=== PATIENT | female | born 1940 | race Caucasian/White ===

== ENCOUNTER 2017-05-09 23:19 | Emergency (ER) | payer MEDICARE ==
--- NOTE | 2017-05-10 01:06 | ER ---
Nurse's Notes [facility] Name: Rebecca Hazel Age: 76 yrs Sex: Female : 1940 Arrival Date: 05/09/2017 Time: 23:38 Bed 19 Private MD: Diagnosis: Type 1 diabetes mellitus;Personal history of diabetic foot ulcer;Cellulitis and acute lymphangitis of other parts of limb-right foot Presentation: 05/09 23:38 Presenting complaint: Patient states: she has had a wound on her R great toe since aa1 March from a fall injury and has been seeing Dr. Carson in wound heeling for it but her HH nurse told her she needed to come to the ED tonight to have it checked bc it appeared reddened. Pt reports the wound actually looks better in her opinion but her HH nurse wanted her to come. Transition of care: patient was not received from another setting of care. Onset of symptoms was March 2017. Care prior to arrival: None. 23:38 Method Of Arrival: Wheelchair aa1 23:38 Acuity: DENNIS 3 aa1 Triage Assessment: 23:47 General: Appears in no apparent distress. comfortable, Behavior is calm, cooperative, aa1 appropriate for age. Historical: - Allergies: 23:47 No Known Allergies; aa1 - Home Meds: 23:47 lisinopril 20 mg Oral tab 1 tab once daily [Active]; Plavix 75 mg Oral tab 1 tab once aa1 daily [Active]; metoprolol tartrate 25 mg Oral tab 1 tab 2 times per day [Active]; duloxetine 20 mg oral cpDR 1 cap daily [Active]; amlodipine 10 mg tab 1 tab once daily [Active]; levothyroxine 150 mcg oral tab 1 tab once daily [Active]; atorvastatin 80 mg oral tab 1 tab once daily [Active]; famotidine 20 mg Oral tab 1 tab once daily [Active]; clonidine HCl 0.1 mg Oral tab as needed [Active]; Novolin 70/30 Innolet Sub-Q 25 units in am and 15 units in pm [Active]; Novolog 100 unit/mL Sub-Q soln sliding scale [Active]; - PMHx: 23:47 Diabetes - IDDM; Hypertension; Hypothyroidism; TIA; aa1 - PSHx: 23:47 Hysterectomy; aa1 - Immunization history:: Pneumococcal vaccine is up to date, Flu vaccine is up to date. - Social history:: Smoking status: Patient/guardian denies using tobacco. - Family history:: not pertinent. Screenin/31 00:09 Abuse screen: Denies threats or abuse. Nutritional screening: No deficits noted. jd3 Tuberculosis screening: No symptoms or risk factors identified. Fall Risk Ambulatory Aid- Crutches/Cane/Walker (15 pts). Gait- Weak (10 pts.). Mental Status- Oriented to own ability (0 pts). Total Israel Fall Scale indicates Low Risk Score (25-44 pts). Fall prevention measures have been instituted. Side Rails Up X 2 Placed close to Nursing Station Frequent Obs/Assesments occuring Family Present and informed to notify staff if they need to leave bedside. Assessment: 00:06 General: Appears in no apparent distress. uncomfortable, Behavior is calm, cooperative, jd3 appropriate for age. Pain: Denies pain. Neuro: Level of Consciousness is awake, alert, obeys commands, Oriented to person, place, time, situation. Cardiovascular: Heart tones S1 S2 present Capillary refill < 3 seconds Patient's skin is warm and dry. Respiratory: Airway is patent Respiratory effort is even, unlabored, Respiratory pattern is regular, symmetrical, Breath sounds are clear bilaterally. GI: Abdomen is round Patient currently denies abdominal pain, diarrhea, nausea, vomiting. : No signs and/or symptoms were reported regarding the genitourinary system. EENT: No signs and/or symptoms were reported regarding the EENT system. Derm: Skin is intact, Skin is dry, Skin is normal, Skin temperature is warm. Musculoskeletal: Circulation, motion, and sensation intact. Range of motion: intact in all extremities. 00:06 Derm: Wound noted right first toe. jd3 01:17 Reassessment: Bijal Villalobos RN with home health [phone] notified of pt being in ER fc and going to be discharged with 2 antibiotics and to continue Santyl. 01:23 Reassessment: Patient appears in no apparent distress at this time. Patient and/or jd3 family updated on plan of care and expected duration. Pain level reassessed. Patient is alert, oriented x 3, equal unlabored respirations, skin warm/dry/pink. pt reported understanding of discharge instructions, pt assisted into wheelchair and to front of ER. Vital Signs: 05/09 23:47 BP 148 / 72; Pulse 90; Resp 18; Temp 97.6; Pulse Ox 100% on R/A; Weight 90.72 kg; aa1 Height 5 ft. 6 in. (167.64 cm); Pain 2/10; 23:47 Body Mass Index 32.28 (90.72 kg, 167.64 cm) aa1 ED Course: 23:38 Patient arrived in ED. aa1 23:42 Triage completed. aa1 23:47 Arm band placed on left wrist. aa1 05/10 00:06 Elia Chapa, THAIS is Primary Nurse. jd3 00:10 Patient has correct armband on for positive identification. Bed in low position. Call jd3 light in reach. Side rails up X2. Adult w/ patient. 00:37 Scottie Boateng MD is Attending Physician. anil 01:03 Rito Carson MD is Referral Physician. anil 01:24 No provider procedures requiring assistance completed. Patient did not have IV access jd3 during this emergency room visit. Administered Medications: 01:12 Not Given (Physician Discretion): Santyl 250 unit/g 1 application Topical once jd3 01:12 Drug: Doxycycline 100 mg Route: PO; jd3 01:25 Follow up: Response: No adverse reaction; Medication administered at discharge. jd3 01:13 Drug: Bactrim (160 mg-800 mg (DS) 1 tablet Route: PO; jd3 01:25 Follow up: Response: No adverse reaction; Medication administered at discharge. jd3 Point of Care Testing: Blood Glucose: 01:10 Blood Glucose: 234 mg/dL; oe Ranges: Outcome: 01:05 Discharge ordered by . anil 01:24 Discharged to home via wheelchair, with family. jd3 01:24 Condition: stable 01:24 Discharge instructions given to patient, family, Instructed on discharge instructions, follow up and referral plans. medication usage, Demonstrated understanding of instructions, follow-up care, medications, Prescriptions given X 3. 01:25 Patient left the ED. jd3 Signatures: Martha Thakur, RN RN aa1 Scottie Boateng MD MD cha Chretien, Felicia, RN RN Chin Hunter Elia Chapa RN RN jd3 Corrections: (The following items were deleted from the chart) 03/30 23:50 23:38 Acuity: DENNIS 4 aa1 aa1
--- NOTE | 2017-05-10 01:06 | EDPHYS ---
Physician Documentation [facility] Name: Rebecca Hazel Age: 76 yrs Sex: Female : 1940 Arrival Date: 05/09/2017 Time: 23:38 Bed 19 Private MD: ED Physician Scottie Boateng HPI: 05/10 00:59 This 76 yrs old Female presents to ER via Wheelchair with complaints of Wound anil Check. 00:59 Patient presents to ED for recheck of: cellulitis. The affected area is on the plantar anil aspect of right first toe, right first toe and Right first toenail. Previous treatment: Previous recheck: the patient's last recheck was 5 day(s) ago. Progress: The patient reports decreased. The patient has experienced similar episodes in the past, several times. Historical: - Allergies: 05/09 23:47 No Known Allergies; aa1 - Home Meds: 23:47 lisinopril 20 mg Oral tab 1 tab once daily [Active]; Plavix 75 mg Oral tab 1 tab once aa1 daily [Active]; metoprolol tartrate 25 mg Oral tab 1 tab 2 times per day [Active]; duloxetine 20 mg oral cpDR 1 cap daily [Active]; amlodipine 10 mg tab 1 tab once daily [Active]; levothyroxine 150 mcg oral tab 1 tab once daily [Active]; atorvastatin 80 mg oral tab 1 tab once daily [Active]; famotidine 20 mg Oral tab 1 tab once daily [Active]; clonidine HCl 0.1 mg Oral tab as needed [Active]; Novolin 70/30 [place] Sub-Q 25 units in am and 15 units in pm [Active]; Novolog 100 unit/mL Sub-Q soln sliding scale [Active]; - PMHx: 23:47 Diabetes - IDDM; Hypertension; Hypothyroidism; TIA; aa1 - PSHx: 23:47 Hysterectomy; aa1 - Immunization history:: Pneumococcal vaccine is up to date, Flu vaccine is up to date. - Social history:: Smoking status: Patient/guardian denies using tobacco. - Family history:: not pertinent. ROS: 05/10 00:59 Constitutional: Negative for fever, chills, and weight loss, Eyes: Negative for injury, anil pain, redness, and discharge, ENT: Negative for injury, pain, and discharge, Neck: Negative for injury, pain, and swelling, Cardiovascular: Negative for chest pain, palpitations, and edema, Respiratory: Negative for shortness of breath, cough, wheezing, and pleuritic chest pain, Abdomen/GI: Negative for abdominal pain, nausea, vomiting, diarrhea, and constipation, Back: Negative for injury and pain, : Negative for injury, bleeding, discharge, and swelling, Skin: Negative for injury, rash, and discoloration, Neuro: Negative for headache, weakness, numbness, tingling, and seizure, Psych: Negative for depression, anxiety, suicide ideation, homicidal ideation, and hallucinations, Allergy/Immunology: Negative for hives, rash, and allergies, Endocrine: Negative for neck swelling, polydipsia, polyuria, polyphagia, and marked weight changes, Hematologic/Lymphatic: Negative for swollen nodes, abnormal bleeding, and unusual bruising. MS/extremity: Positive for decreased range of motion, pain, tenderness, of the medial aspect of right toes, plantar aspect of right first toe, right first toe and Right first toenail. Exam: 00:59 Constitutional: This is a well developed, well nourished patient who is awake, alert, anil and in no acute distress. Head/Face: Normocephalic, atraumatic. Eyes: Pupils equal round and reactive to light, extra-ocular motions intact. Lids and lashes normal. Conjunctiva and sclera are non-icteric and not injected. Cornea within normal limits. Periorbital areas with no swelling, redness, or edema. ENT: Nares patent. No nasal discharge, no septal abnormalities noted. Tympanic membranes are normal and external auditory canals are clear. Oropharynx with no redness, swelling, or masses, exudates, or evidence of obstruction, uvula midline. Mucous membranes moist. Neck: Trachea midline, no thyromegaly or masses palpated, and no cervical lymphadenopathy. Supple, full range of motion without nuchal rigidity, or vertebral point tenderness. No Meningismus. Chest/axilla: Normal chest wall appearance and motion. Nontender with no deformity. No lesions are appreciated. Cardiovascular: Regular rate and rhythm with a normal S1 and S2. No gallops, murmurs, or rubs. Normal PMI, no JVD. No pulse deficits. Respiratory: Lungs have equal breath sounds bilaterally, clear to auscultation and percussion. No rales, rhonchi or wheezes noted. No increased work of breathing, no retractions or nasal flaring. Abdomen/GI: Soft, non-tender, with normal bowel sounds. No distension or tympany. No guarding or rebound. No evidence of tenderness throughout. Back: No spinal tenderness. No costovertebral tenderness. Full range of motion. Female : Normal external genitalia. Skin: Warm, dry with normal turgor. Normal color with no rashes, no lesions, and no evidence of cellulitis. Neuro: Awake and alert, GCS 15, oriented to person, place, time, and situation. Cranial nerves II-XII grossly intact. Motor strength 5/5 in all extremities. Sensory grossly intact. Cerebellar exam normal. Normal gait. Psych: Awake, alert, with orientation to person, place and time. Behavior, mood, and affect are within normal limits. 00:59 Musculoskeletal/extremity: ROM: intact in all extremities, full active range of motion, full passive range of motion, Circulation is intact in all extremities. decreased sensation, Compartment Syndrome exam of affected extremity: is normal. Joints: All joints appear normal with full range of motion. DVT Exam: No signs of deep vein thrombosis. no pain, no swelling, no tenderness, negative Homans' sign noted on exam, no appreciated bluish discoloration, no erythema, no increased warmth. Vital Signs: 05/09 23:47 BP 148 / 72; Pulse 90; Resp 18; Temp 97.6; Pulse Ox 100% on R/A; Weight 90.72 kg; aa1 Height 5 ft. 6 in. (167.64 cm); Pain 2/10; 23:47 Body Mass Index 32.28 (90.72 kg, 167.64 cm) aa1 MDM: 05/10 00:38 Patient medically screened. [facility] 05/10 00:59 Order name: Blood Glucose Level; Complete Time: 01:12 [facility] 05/10 00:59 Order name: Post-op shoe; Complete Time: 01:09 [facility] Administered Medications: 01:12 Not Given (Physician Discretion): Santyl 250 unit/g 1 application Topical once jd3 01:12 Drug: Doxycycline 100 mg Route: PO; jd3 01:25 Follow up: Response: No adverse reaction; Medication administered at discharge. jd3 01:13 Drug: Bactrim (160 mg-800 mg (DS) 1 tablet Route: PO; jd3 01:25 Follow up: Response: No adverse reaction; Medication administered at discharge. jd3 Point of Care Testing: Blood Glucose: 01:10 Blood Glucose: 234 mg/dL; oe Ranges: Critical Glucose Levels:Adult <50 mg/dl or >400 mg/dl <40 mg/dl or >180 mg/dl Disposition: 05/10/17 01:05 Discharged to Home. Impression: Type 1 diabetes mellitus, Personal history of diabetic foot ulcer, Cellulitis and acute lymphangitis of other parts of limb - right foot. - Condition is Stable. - Discharge Instructions: Type 2 Diabetes Mellitus, Adult, Cellulitis, [id number], Diabetes Mellitus and Food, Type 2 Diabetes Mellitus, Adult, [id number]. - Prescriptions for Santyl 250 unit/gram Topical ointment - apply 1 application by TOPICAL route once daily; 60 gram. Doxycycline Hyclate 100 mg Oral Tablet - take 1 tablet by ORAL route every 12 hours; 20 tablet. Bactrim DS 800- 160 mg Oral Tablet - take 1 tablet by ORAL route every 12 hours for 10 days; 20 tablet. - Medication Reconciliation Form, Thank You Letter, Antibiotic Education, Prescription Opioid Use form. - Follow up: Private Physician; When: 2 - 3 days; Reason: Recheck today's complaints, Continuance of care, Re-evaluation by your physician. Follow up: Rito Carson MD; When: 2 - 3 days; Reason: Recheck today's complaints, Re-evaluation by your physician. - Problem is new. - Symptoms have improved. Signatures: Martha Thakur, RN RN aa1 Scottie Boateng MD MD cha Davies, Jonathon, RN RN jd3
[2017-05-10] MEDS ORDERED: SMZ./TMP. 800/160 MG TABLET ONE (01:22)
[2017-05-10] MEDS ORDERED: DOXYCYCLINE 100 MG CAP PO ONE (01:23)
[2017-05-10 01:29] VITALS: BP 148/72; TEMP 97.6; O2SAT 100
== END 2017-05-10 01:25 | disposition home or self-care (01) ==
LOC: ER 23:19
DX: L03.115 Cellulitis of right lower limb (principal); E10.621 Type 1 diabetes mellitus with foot ulcer; I10 Essential (primary) hypertension; E03.9 Hypothyroidism, unspecified; Z79.01 Long term (current) use of anticoagulants; Z79.4 Long term (current) use of insulin
CPT/HCPCS: 82962; 99283

== ENCOUNTER 2019-08-27 14:20 | Inpatient (IN) | payer MEDICARE ==
--- NOTE | 2019-08-27 17:24 | RAD REPORT ---
EXAM DESCRIPTION: RAD - Foot Right 3 View - 08/27/2019 5:11 pm CLINICAL HISTORY: erythema. Look for Osteo;Pain;Swelling Pain and swelling COMPARISON: Foot Right 2 View dated 06/13/2017 FINDINGS: Prominent osteopenia is seen. Vascular calcifications seen. Large amount of soft tissue sw elling is seen along the dorsum of the foot. Prominent calcaneal spur. No definitive plain radiograph evidence of osteomyelitis.
[2019-08-27 18:20] LABS: Absolute Lymphocytes (CBC) 1.5 K/uL (0.7-4.9); Basophils % 0.4 % (0-1.3); Hematocrit 35.1 % (36.0-45.0); Lymphocytes % 14.5 % (15.3-44.8); RBC Red Blood Cell Count 3.71 M/uL (3.86-4.86)
[2019-08-27 18:34] LABS: BUN Blood Urea Nitrogen 42 mg/dL (7-18); Bicarbonate 30 mmol/L (21-32); Glucose Level 129 mg/dL (74-106); Potassium 4.4 mmol/L (3.5-5.1); Sodium Level 144 mmol/L (136-145)
[2019-08-27 18:39] LABS: C-Reactive Protein < 2.90 mg/L (<3.00)
--- NOTE | 2019-08-27 19:17 | ER ---
Nurse's Notes [facility] Name: Rebecca Hazel Age: 79 yrs Sex: Female : 1940 Arrival Date: 08/27/2019 Time: 14:24 Bed 20 Private MD: Torsten Pacheco Diagnosis: Cellulitis of right lower limb;Anasarca;Acute kidney failure Presentation: 08/26 14:28 Chief complaint: Patient states: Right foot pain, swelling, and 3 blisters to right ll1 foot for 3 days. No fever. Coronavirus screen: Patient denies a cough. Patient denies shortness of breath or difficulty breathing. Patient denies measured and/or subjective temperature greater than 100.4F prior to today's visit. Patient denies travel on a cruise ship or to a country the [facility] currently lists as an affected area. Patient denies contact with known and/or suspected case of COVID-19. Proceed with normal triage. Ebola Screen: Patient denies travel to an Ebola-affected area in the 21 days before illness onset. Initial Sepsis Screen: Does the patient meet any 2 criteria? HR > 90 bpm. Risk Assessment: Do you want to hurt yourself or someone else? Patient reports no desire to harm self or others. Onset of symptoms was August 25, 2019. 14:28 Method Of Arrival: Ambulatory ll1 14:28 Acuity: DENNIS 3 ll1 18:33 Initial Sepsis Screen: Does the patient have a suspected source of infection?. Historical: - Allergies: 14:31 No Known Allergies; ll1 - PMHx: 14:31 Diabetes - IDDM; Hypertension; Hypothyroidism; TIA; stroke with right sided weakness; ll1 - PSHx: 14:31 Hysterectomy; ll1 - Immunization history:: Adult Immunizations up to date. - Social history:: Smoking status: Patient denies any tobacco usage or history of. Patient/guardian denies using alcohol, street drugs. Screenin:32 Abuse screen: Denies threats or abuse. Nutritional screening: No deficits noted. Tuberculosis screening: No symptoms or risk factors identified. Fall Risk None identified. Assessment: 16:15 General: Appears in no apparent distress. Behavior is calm, cooperative, appropriate for age. Pain: Complains of pain in dorsum of right foot, right first toe, right second toe and right third toe. Neuro: Level of Consciousness is awake, alert, obeys commands, Oriented to person, place, time, situation, Appropriate for age. Cardiovascular: Capillary refill < 3 seconds Patient's skin is warm and dry. Respiratory: Airway is patent Respiratory effort is even, unlabored. Derm: Wound noted right first toe, right second toe and right third toe Wound is blisters noted to right great toe, wound noted to 3rd toe with green drainage Reports pain. 19:00 Reassessment: Patient and/or family updated on plan of care and expected duration. Pain mt2 level reassessed. Vital Signs: 14:28 BP 146 / 64; Pulse 96; Resp 18; Temp 98.0; Pulse Ox 98% ; Pain 10/10; ll1 19:00 BP 156 / 57; Pulse 62; Resp 17; Temp 98.0; Pulse Ox 96% ; Pain 0/10; mt2 20:00 BP 149 / 59; Pulse 64; Resp 16; Pulse Ox 95% ; Pain 0/10; mt2 ED Course: 14:24 Patient arrived in ED. mr 14:24 Torsten Pacheco is Private Physician. mr 14:30 Triage completed. ll1 14:31 Arm band placed on Patient notified of wait time. ll1 16:02 Chris Brandt PA is PHCP. jr8 16:02 Carlton Nelson MD is Attending Physician. jr8 16:31 Kerrie Scott, THAIS is Primary Nurse. 17:12 XRAY Foot RIGHT 3 View In Process Unspecified. EDMS 17:55 Inserted saline lock: 22 gauge in left ,using aseptic technique. Volar side of Left jp3 Wrist Blood collected. 17:55 Initial lab(s) drawn, by me, sent to lab. First set of blood cultures drawn by me. jp3 Patient maintains SpO2 saturation greater than 95% on room air. 18:33 Patient has correct armband on for positive identification. Fall risk band placed. Bed ah in low position. Call light in reach. Side rails up X2. Pulse ox on. NIBP on. 19:15 Zayda Khan MD is Hospitalizing Provider. jr8 20:40 No provider procedures requiring assistance completed. mt2 Administered Medications: Discontinued: Cefepime 1 grams IVPB at 200 ml/hr once over 30 mins; (mix in NS 100 mL) 19:43 Drug: Cefepime 1 grams Route: IVPB; Rate: 200 ml/hr; Infused Over: 30 mins; Site: left mt2 hand; 20:29 Drug: vancoMYCIN 1 grams Route: IVPB; Infused Over: 2 hrs; Site: left hand; mt2 Outcome: 19:16 Decision to Hospitalize by Provider. 8 20:40 Admitted to Med/surg mt2 20:40 Condition: unchanged 21:36 Admitted to Med/surg accompanied by tech, Report called to wu simental mt2 21:39 Patient left the ED. mt2 Signatures: Dispatcher [employer]W[place] Ford Sravanthi mr Rikki, ARCELIA Perez jr8 Kareem Musa jp3 Kerrie Scott, RN RN Mathew No RN RN 1 Kusum Yoo RN RN mt2
--- NOTE | 2019-08-27 19:17 | EDPHYS ---
Physician Documentation [facility] Name: Rebecca Hazel Age: 79 yrs Sex: Female : 1940 Arrival Date: 08/27/2019 Time: 14:24 Bed 20 Private MD: Torsten Pacheco ED Physician Carlton Nelson HPI: 08/26 17:05 This 79 yrs old Female presents to ER via Ambulatory with complaints of Feet jr8 Swelling. 17:05 The patient presents with pain, swelling, tenderness. The complaints affect the right jr8 foot. Onset: The symptoms/episode began/occurred gradually, 3 day(s) ago. Modifying factors: The symptoms are alleviated by nothing, the symptoms are aggravated by nothing. Associated signs and symptoms: The patient has no apparent associated signs or symptoms. Severity of symptoms: At their worst the symptoms were mild, in the emergency department the symptoms are unchanged. It is unknown whether or not the patient has had similar symptoms in the past. The patient has not recently seen a physician. Patient stated that she has had blisters and discharge that developed to the right foot about 3 days ago. Family sent her over to be evaluated . Historical: - Allergies: 14:31 No Known Allergies; ll1 - PMHx: 14:31 Diabetes - IDDM; Hypertension; Hypothyroidism; TIA; stroke with right sided weakness; ll1 - PSHx: 14:31 Hysterectomy; ll1 - Immunization history:: Adult Immunizations up to date. - Social history:: Smoking status: Patient denies any tobacco usage or history of. Patient/guardian denies using alcohol, street drugs. ROS: 17:05 Eyes: Negative for injury, pain, redness, and discharge, ENT: Negative for injury, jr8 pain, and discharge, Neck: Negative for injury, pain, and swelling, Cardiovascular: Negative for chest pain, palpitations, and edema, Respiratory: Negative for shortness of breath, cough, wheezing, and pleuritic chest pain, Abdomen/GI: Negative for abdominal pain, nausea, vomiting, diarrhea, and constipation, Back: Negative for injury and pain, Neuro: Negative for headache, weakness, numbness, tingling, and seizure. 17:05 MS/extremity: Positive for erythema, pain, swelling, tenderness, of the right foot, blisters. Exam: 17:05 Cardiovascular: Regular rate and rhythm with a normal S1 and S2. No gallops, murmurs, jr8 or rubs. Normal PMI, no JVD. No pulse deficits. Respiratory: Lungs have equal breath sounds bilaterally, clear to auscultation and percussion. No rales, rhonchi or wheezes noted. No increased work of breathing, no retractions or nasal flaring. Abdomen/GI: Obese. Soft, non-tender, with normal bowel sounds. No distension or tympany. No guarding or rebound. No evidence of tenderness throughout. Back: No spinal tenderness. No costovertebral tenderness. Full range of motion. Skin: Warm, dry with normal turgor. Normal color with no rashes, no lesions, and no evidence of cellulitis. Neuro: Awake and alert, GCS 15, oriented to person, place, time, and situation. Cranial nerves II-XII grossly intact. Motor strength 5/5 in all extremities. Sensory grossly intact. Cerebellar exam normal. Normal gait. 17:05 Musculoskeletal/extremity: Extremities: grossly normal except: noted in the right foot: Patient has swelling to right foot greater than that on the left side. Erythema with bullae noted to dorsal foot and toes. Open wound with purulent/bloody discharge noted to top of third digit as well , Circulation is intact in all extremities. Sensation intact. Vital Signs: 14:28 BP 146 / 64; Pulse 96; Resp 18; Temp 98.0; Pulse Ox 98% ; Pain 10/10; ll1 19:00 BP 156 / 57; Pulse 62; Resp 17; Temp 98.0; Pulse Ox 96% ; Pain 0/10; mt2 20:00 BP 149 / 59; Pulse 64; Resp 16; Pulse Ox 95% ; Pain 0/10; mt2 MDM: 16:02 Patient medically screened. jr8 19:15 Data reviewed: vital signs, nurses notes, lab test result(s), radiologic studies, plain jr8 films. Data interpreted: Pulse oximetry: on room air is 98 %. Interpretation: normal. Counseling: I had a detailed discussion with the patient and/or guardian regarding: the historical points, exam findings, and any diagnostic results supporting the discharge/admit diagnosis, lab results, radiology results, the need for further work-up and treatment in the hospital. 08/26 16:34 Order name: Wound Culture jr8 08/26 16:34 Order name: CBC with Diff; Complete Time: 18:47 [facility] 08/26 16:34 Order name: Basic Metabolic Panel; Complete Time: 18:40 [facility] 08/26 16:34 Order name: C-Reactive Protein; Complete Time: 18:40 [facility] 08/26 16:34 Order name: ESR; Complete Time: 18:47 [facility] 08/26 16:34 Order name: Procalcitonin; Complete Time: 19:04 [facility] 08/26 16:34 Order name: Blood Culture Adult (2) [facility] 08/26 20:16 Order name: Basic Metabolic Panel [facility] 08/26 20:16 Order name: Basic Metabolic Panel [facility] 08/26 20:16 Order name: Lipid Profile [facility] 08/26 20:16 Order name: Lipid Profile [facility] 08/26 20:16 Order name: Protime (+INR) [facility] 08/26 20:16 Order name: Protime (+INR) [facility] 08/26 20:16 Order name: PTT, Activated Partial Thromb [facility] 08/26 16:34 Order name: IV; Complete Time: 18:02 [facility] 08/26 16:34 Order name: XRAY Foot RIGHT 3 View; Complete Time: 17:27 [facility] 08/26 20:16 Order name: PTT, Activated Partial Thromb [facility] 08/26 20:16 Order name: CONS Pharmacy Consult [facility] 08/26 20:16 Order name: CONS Physician Consult [facility] Administered Medications: Discontinued: Cefepime 1 grams IVPB at 200 ml/hr once over 30 mins; (mix in NS 100 mL) 19:43 Drug: Cefepime 1 grams Route: IVPB; Rate: 200 ml/hr; Infused Over: 30 mins; Site: left mt2 hand; 20:29 Drug: vancoMYCIN 1 grams Route: IVPB; Infused Over: 2 hrs; Site: left hand; mt2 Disposition: 08/27 08:19 Co-signature as Attending Physician, Carlton Nelson MD I agree with the assessment and kdr plan of care. Disposition: 08/27/19 19:16 Hospitalization ordered by Zayda Khan for Inpatient Admission. Preliminary diagnosis are Cellulitis of right lower limb, Anasarca, Acute kidney failure. - Bed requested for Telemetry/MedSurg (Inpatient). - Status is Inpatient Admission. mt2 - Condition is Stable. - Problem is new. - Symptoms have improved. Signatures: Dispatcher [employer] EDMS Stephie Campa RN RN dw Erwin Woods RN RN Carlton Nelson MD MD [facility] Chris Brandt PA PA jr8 Mathew Krishnan RN RN 1 Kusum Yoo RN RN mt2 Corrections: (The following items were deleted from the chart) 08/26 20:21 19:16 Hospitalization Ordered by Zayda Khan MD for Inpatient Admission. Preliminary dw diagnosis is Cellulitis of right lower limb; Anasarca; Acute kidney failure. Bed requested for Telemetry/MedSurg (Inpatient). Status is Inpatient Admission. Condition is Stable. Problem is new. Symptoms have improved. jr8 21:08 20:21 08/27/2019 19:16 Hospitalization Ordered by Zayda Khan MD for Inpatient sg Admission. Preliminary diagnosis is Cellulitis of right lower limb; Anasarca; Acute kidney failure. Bed requested for Telemetry/MedSurg (Inpatient). Status is Inpatient Admission. Condition is Stable. Problem is new. Symptoms have improved. dw 21:39 21:08 08/27/2019 19:16 Hospitalization Ordered by Zayda Khan MD for Inpatient mt2 Admission. Preliminary diagnosis is Cellulitis of right lower limb; Anasarca; Acute kidney failure. Bed requested for Telemetry/MedSurg (Inpatient). Status is Inpatient Admission. Condition is Stable. Problem is new. Symptoms have improved. sg
[2019-08-27] MEDS ORDERED: NA CHLORIDE 0.9% 250 ML ONE (19:44)
[2019-08-27] MEDS ORDERED: VANCOMYCIN 1 GM/VIAL ONE (19:44)
[2019-08-27] MEDS ORDERED: MORPHINE 2 MG/ML SYR IV PRN (20:00)
[2019-08-27] MEDS ORDERED: ONDANSETRON 4 MG/2 ML VIAL IV PRN (20:00)
[2019-08-27] MEDS ORDERED: ACETAMINOPHEN 500 MG TAB PO PRN (20:00)
[2019-08-27] MEDS ORDERED: INSULIN DETEMIR 20 UNIT SQ SCH (21:00)
[2019-08-27] MEDS: NA CHLORIDE 0.9% 1,000 ML IV SCH (22:37)
[2019-08-27] MEDS: METOPROLOL XL 25 MG TAB PO SCH (22:50)
[2019-08-27] MEDS ORDERED: Levofloxacin500mg IV 500 MG/100 ML BAG IV SCH (23:00)
[2019-08-28 01:08] VITALS: BMI 40.0
--- NOTE | 2019-08-28 04:36 | P.HP ---
Certification for Inpatient Patient admitted to: Inpatient With expected LOS: >2 Midnights Patient will require the following post-hospital care: None Practitioner: I am a practitioner with admitting privileges, knowledge of patient current condition, hospital course, and medical plan of care. Services: Services provided to patient in accordance with Admission requirements found in Title 42 Section 412.3 of the Code of Federal Regulations Patient History Date of Service: 08/27/19 Reason for admission: Dehydration with acute renal failure History of Present Illness: Patient is a 71-year-old female who came to the hospital with acute on chronic renal insufficiency. Patient appears to be dehydrated. She clinically is not feeling well. Patient was feeling poorly the last few days. Her family convinced her to come to the hospital. Patient does not want to be in the hospital for a prolonged period. She is wishing to go home. She feels much better at this time. She denies any complaints. Will get her up out of bed and we will ambulate her. Will discontinue her Castro catheter. Hopefully will be able to discharge patient home with the next 24-48 hr. Will also Consult Nephrology for plan of care. Allergies No Known Allergies Allergy (Verified 08/27/19 22:08) Home Medications: Levothyroxine Sodium 50 mcg PO DAILY 06/07/15 Metoprolol Succinate [Toprol Xl*] 1 tab PO BID 02/25/17 Amlodipine [Norvasc*] 1 tab PO DAILY 05/08/17 Atorvastatin Calcium [Lipitor] 1 tab PO BEDTIME 05/08/17 Duloxetine [Cymbalta *] 1 cap PO DAILY 05/08/17 Famotidine [Pepcid*] 1 tab PO BEDTIME 05/08/17 cloNIDine HCL [Catapres*] 1 tab PO Q4H PRN 05/08/17 Apixaban [Eliquis] 1 tab PO BID 08/28/19 Clonidine HCl [Catapres] 0.1 mg PO BEDTIME 08/28/19 Docusate Sodium 100 mg PO DAILY PRN 08/28/19 Furosemide 80 mg PO DAILY 08/28/19 Gabapentin 200 mg PO BEDTIME 08/28/19 Hum Insulin NPH/Reg Insulin Hm [Humulin 70-30 Vial] 15 unit SQ TID 08/28/19 Losartan Potassium [Cozaar] 50 mg PO BID 07/18/20 Spironolactone 1 tab PO DAILY PRN 08/28/19 - Past Medical/Surgical History Has patient received pneumonia vaccine in the past: Yes Diabetic: Yes -: 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 -: IDDiabetic -: HTN -: foot infection 04/2017 -: NEUROPATHY -: HLD -: HYPOTHYROIDISM -: 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 -: chronic osteomyelitis with non-healing ulcer right great toe s/p fall(2017) -: afib vs supraventricular tachycardia -: thyroidectomy -: cataract sx -: hysterectomy - Family History Mother Medical History: Hypertension Father Medical History: Diabetes - Social History Smoking Status: Never smoker Alcohol use: No CD- Drugs: No Caffeine use: Yes Place of Residence: Home Review of Systems 10-point ROS is otherwise unremarkable Physical Examination - Vital Signs Temperature: 97.4 F Blood Pressure: 135/63 Pulse: 50 Respirations: 16 Pulse Ox (%): 90 - Physical Exam General: Alert, In no apparent distress, Oriented x3 HEENT: Atraumatic, PERRLA, Mucous membr. moist/pink, EOMI, Sclerae nonicteric Neck: Supple, 2+ carotid pulse no bruit, No LAD, Without JVD or thyroid abnormality Respiratory: Clear to auscultation bilaterally, Normal air movement Cardiovascular: Regular rate/rhythm, Normal S1 S2, Systolic murmur Gastrointestinal: Normal bowel sounds, Soft and benign, Non-distended, No tenderness Musculoskeletal: No clubbing, No swelling, No tenderness Integumentary: No rashes Neurological: Normal speech, Normal tone, Sensation intact, Cranial nerves 3-12 intact, Normal affect, Abnormal gait, Abnormal strength Lymphatics: No axilla or inguinal lymphadenopathy - Studies Laboratory Data (last 24 hrs) 08/27/19 17:52: Sodium 144, Potassium 4.4, BUN 42 H, Creatinine 2.08 H, Glucose 129 H 08/27/19 17:52: WBC 10.0, Hgb 11.6 L, Hct 35.1 L, Plt Count 258 Assessment & Plan - Problems (Diagnosis) (1) Acute renal insufficiency Current Visit: Yes Status: Acute (2) Diabetes Current Visit: No Status: Acute (3) Stroke Current Visit: Yes Status: Acute (4) Osteomyelitis Current Visit: Yes Status: Acute (5) Atrial fibrillation Current Visit: Yes Status: Acute - Plan Plan: 1. IV hydration 2. Monitor renal function 3. Nephrology consultation 4. Strict blood pressure and blood sugar control 5. Monitor H&H 6. Coagulopathy 7. Out of bed and ambulate 8. Dc Castro 9. GI and DVT prophylax Discharge Plan: Home Plan to discharge in: Greater than 2 days - Advance Directives Does patient have a Living Will: No Does patient have a Durable POA for Healthcare: No - Code Status/Comfort Care Code Status Assessed: Yes Code Status: Full Code Critical Care: No Time Spent Managing PTS Care (In Minutes): 45
--- NOTE | 2019-08-28 04:37 | P.PN ---
Subjective Date of Service: 08/28/19 Subjective: Improving Review of Systems 10-point ROS is otherwise unremarkable Physical Examination - Vital Signs Temperature: 97.4 F Blood Pressure: 135/63 Pulse: 50 Respirations: 16 Pulse Ox (%): 90 - Physical Exam General: Alert, In no apparent distress Respiratory: Clear to auscultation bilaterally, Normal air movement Cardiovascular: Regular rate/rhythm, Normal S1 S2 Gastrointestinal: Normal bowel sounds, No tenderness Musculoskeletal: No tenderness Integumentary: No rashes Neurological: Normal speech, Normal tone, Normal affect Lymphatics: No axilla or inguinal lymphadenopathy - Studies Laboratory Data (last 24 hrs) 08/27/19 17:52: Sodium 144, Potassium 4.4, BUN 42 H, Creatinine 2.08 H, Glucose 129 H 08/27/19 17:52: WBC 10.0, Hgb 11.6 L, Hct 35.1 L, Plt Count 258 Medications List Reviewed: Yes Assessment & Plan - Problems (Diagnosis) (1) Acute renal insufficiency Current Visit: Yes Status: Acute (2) Diabetes Current Visit: No Status: Acute - Plan Plan: 1. Aggressive IV hydration 2. Monitor renal function 3. - Advance Directives Does patient have a Living Will: No Does patient have a Durable POA for Healthcare: No
[2019-08-28] MEDS: LEVOTHYROXINE SOD 0.05 MG TABLET PO SCH (05:42)
[2019-08-28 06:11] LABS: Absolute Lymphocytes (CBC) 0.9 K/uL (0.7-4.9); Basophils % 0.4 % (0-1.3); Hematocrit 33.8 % (36.0-45.0); Lymphocytes % 9.6 % (15.3-44.8); RBC Red Blood Cell Count 3.58 M/uL (3.86-4.86)
[2019-08-28 06:27] LABS: Potassium 4.8 mmol/L (3.5-5.1)
[2019-08-28 06:31] LABS: Protime INR 1.52
[2019-08-28] MEDS ORDERED: D50W 25 GM/50 ML SYRINGE/VIAL IV PRN (07:35)
[2019-08-28] MEDS ORDERED: GLUCAGON 1 MG/VIAL IM PRN (07:35)
[2019-08-28] MEDS ORDERED: DOCUSATE NA 100 MG CAP PO PRN (07:35)
[2019-08-28] MEDS: HYDROCORTISONE 1 % CREAM 30GM TOP SCH ×2 (09:00→20:43)
[2019-08-28] MEDS ORDERED: AMLODIPINE 10 MG TAB PO SCH (09:00)
[2019-08-28] MEDS ORDERED: FUROSEMIDE 40 MG TABLET PO SCH (09:00)
[2019-08-28] MEDS ORDERED: LOSARTAN POTASSIUM 50 MG TABLET PO SCH (09:00)
[2019-08-28] MEDS ORDERED: LEVOTHYROXINE SODIUM 50 MCG PO SCH (09:00)
[2019-08-28] MEDS ORDERED: cloNIDine HCL 0.1 MG TAB PO SCH (09:00)
[2019-08-28] MEDS: DULOXETINE 20 MG CAP PO SCH (09:00)
[2019-08-28 09:04] LABS: Uric Acid 7.8 mg/dL (2.6-6.0)
[2019-08-28] MEDS: METOPROLOL XL 25 MG TAB PO SCH ×2 (09:28→20:43)
[2019-08-28] MEDS: ATORVASTATIN 80 MG TAB PO SCH (09:29)
[2019-08-28] MEDS: APIXABAN 5 MG TABLET PO SCH ×2 (09:29→20:45)
[2019-08-28] MEDS: INSULIN 70/30 100 UNITS/ML SQ SCH ×3 (09:30→21:00)
[2019-08-28] MEDS: NA CHLORIDE 0.9% 1,000 ML IV SCH (09:31)
[2019-08-28] MEDS: INSULIN GLARGINE 100 UNITS/ML SQ SCH ×2 (09:32→20:42)
[2019-08-28] MEDS ORDERED: NA CHLORIDE 0.9% 1,000 ML IV SCH (11:00)
--- NOTE | 2019-08-28 12:36 | CON ---
Date of Consultation: 08/28/2019 Reason For Consultation: Elevated BUN and creatinine, fluid management. History Of Present Illness: This is a 79-year-old female with significant past medical history of hy pertension, hyperlipidemia, diabetes complicated with neuropathy, no retinopathy, hypothyroidism, CVA . The patient came to the hospital because of increase in her neck swelling with shortness of breath . The patient denied taking any nonsteroidal, no IV contrast. Reviewing the record, the patient's b aseline creatinine back in August 27, 2017, creatinine 1.4, GFR of 37. The patient apparently being on losartan over the night. The patient was started on diuresis and IV hydration. Past Medical History: 1.Diabetes, complicated with neuropathy. 2.CVA. 3.Foot infection. 4.Hyperlipidemia. 5.Hypothyroidism. 6.Atrial fibrillation. Past Surgical History: Include thyroidectomy, cataract surgery, hysterectomy. Family History: Positive for hypertension and diabetes. Social History: Denied smoking. Denied alcohol. Denied drug abuse. Review of Systems: Head and Neck: No red eye. No ear pain. GI: She has no nausea. No vomiting. : No polyuria. No dysuria. No hematuria. 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 Respiratory: She has shortness of breath. Cardiovascular: She has leg swelling. Endocrine: No polydipsia. Skin: No rash. Neuro: She has neuropathy. Musculoskeletal: No joint pain. Physical Examination: Vital Signs: When I saw the patient, blood pressure 144/63, pulse of 63. The patient had good urine output of 1 L. Chest: Decreased air entry in bilateral base. Heart: S1, S2. Systolic murmur. Abdomen: Soft, nontender. Extremities: +2 edema. Neurologic: Alert and oriented x3. Laboratory Data: WBC 9.8, H and H 11/33.8, platelet 236. Sodium 143, potassium 4.8, bicarb 29, BUN 41, creatinine 1.8, calcium 8.2. INR 1.5. Assessment And Plan: 1.Acute kidney injury secondary to cardiorenal over volume without significant respiratory distress. I am going to go ahead and discontinue losartan, discontinue IV fluids, resume diuresis, and we pallavi l follow up the patient. I am going to go ahead and send for workup including renal ultrasound, TSH, and PTH. 2.Cellulitis, as by primary. I agree with current antibiotic dose appropriate. 3.Edema, peripheral, possible secondary to renal failure, questionable of cardiorenal/calcium channe l breanne. I am going to go ahead and discontinue amlodipine. We will increase the diuresis and we will monitor the patient. 4.Hypertension. We will utilize the blood pressure for more diuresis with the presence of acute kid vishnu injury and edema. Discontinue amlodipine, discontinue losartan, increase the clonidine to t.i.d. , continue Lasix. 5.Diabetes, as by primary. HARRIETT/LAYLA Voice ID: [id number] Report ID: [id number]
[2019-08-28] MEDS: HYDROCORTISONE SUC 100 MG INJ IV SCH ×3 (12:56→23:19)
[2019-08-28] MEDS: cloNIDine HCL 0.1 MG TAB PO SCH ×2 (13:26→20:44)
[2019-08-28] MEDS: FUROSEMIDE 40 MG/4 ML VIAL IV SCH (17:04)
--- NOTE | 2019-08-28 18:55 | RAD REPORT ---
EXAM DESCRIPTION: US - Renal Ultrasound-Complete - 08/28/2019 6:34 pm CLINICAL HISTORY: . Dysuria COMPARISON: None. FINDINGS: The right kidney measures 9 cm with a normal echotexture. 1.3 centimeter complex cyst The left kidney measures 13 cm with mildly increased echotexture. 1.5 centimeters cyst Hydronephrosis is not seen. Castro catheter is present the bladder. No gross abnormality noted IMPRESSION: Increased echotexture left kidney likely indicating parenchymal disease 1.3 centimeter complex cyst right kidney likely benign. Follow-up ultrasound in 6 months recommended to assess stability 1.5 centimeter left renal cyst
[2019-08-28] MEDS: FAMOTIDINE 20 MG TAB PO SCH (20:44)
[2019-08-28] MEDS: GABAPENTIN 100 MG CAP PO SCH (20:44)
[2019-08-28] MEDS: Levofloxacin 250mg IV 250 MG/50 ML BAG IV SCH (21:17)
[2019-08-28 22:07] LABS: Urine Protein/Creatinine Ratio 5.58 ratio (<0.15)
--- NOTE | 2019-08-29 05:07 | P.PN ---
Subjective Date of Service: 08/28/19 Subjective: No new changes, No C/O voiced, Improving Review of Systems 10-point ROS is otherwise unremarkable Physical Examination - Vital Signs Temperature: 97.4 F Blood Pressure: 135/63 Pulse: 50 Respirations: 16 Pulse Ox (%): 90 - Physical Exam General: Alert, In no apparent distress, Oriented x3 Respiratory: Clear to auscultation bilaterally, Normal air movement Cardiovascular: Regular rate/rhythm, Normal S1 S2 Gastrointestinal: Normal bowel sounds, Soft and benign, Non-distended, No tenderness Musculoskeletal: No clubbing, No swelling, No tenderness Integumentary: No rashes Neurological: Normal speech, Normal tone, Normal affect Lymphatics: No axilla or inguinal lymphadenopathy - Studies Microbiology Data (last 24 hrs): 08/27/19 18:56 Blood - Blood Anaerobic Blood Culture - Final Medications List Reviewed: Yes Assessment & Plan - Problems (Diagnosis) (1) Acute renal insufficiency Current Visit: Yes Status: Acute (2) Diabetes Current Visit: No Status: Acute (3) Stroke Current Visit: Yes Status: Acute (4) Osteomyelitis Current Visit: Yes Status: Acute (5) Atrial fibrillation Current Visit: Yes Status: Acute - Plan Continue monitoring urine output. Nephrology has started patient on Lasix. Will closely monitor renal function to make sure patient is not over diuresed. Strict blood pressure and blood sugar control. Amlodipine has been stopped. Losartan is stopped as well. Patient desires to go home today. Will await nephrology evaluation prior to making any recommendations. Discharge Plan: Home Plan to discharge in: 24 Hours - Advance Directives Does patient have a Living Will: No Does patient have a Durable POA for Healthcare: No - Code Status/Comfort Care Code Status: Full Code Critical Care: No Time Spent Managing PTS Care (In Minutes): 30
[2019-08-29] MEDS: HYDROCORTISONE SUC 100 MG INJ IV SCH ×3 (05:22→17:13)
[2019-08-29] MEDS: LEVOTHYROXINE SOD 0.05 MG TABLET PO SCH (05:23)
[2019-08-29 06:17] LABS: Absolute Lymphocytes (CBC) 1.1 K/uL (0.7-4.9); Basophils % 0.2 % (0-1.3); Hematocrit 31.6 % (36.0-45.0); Lymphocytes % 10.5 % (15.3-44.8); MPV 7.8 fL (7.6-11.3)
[2019-08-29 06:52] LABS: Albumin 2.4 g/dL (3.4-5.0); Bilirubin Total 0.5 mg/dL (0.2-1.0); Magnesium 2.2 mg/dL (1.8-2.4); Phosphorus 4.4 mg/dL (2.5-4.9); Potassium 4.2 mmol/L (3.5-5.1); Protein, Total 6.3 g/dL (6.4-8.2); Thyroid Stimulating Hormone 2.99 uIU/mL (0.360-3.740)
[2019-08-29 07:13] LABS: Blood Morphology Comment NOT SEEN (NOT SEEN); Platelet Estimate ADEQ; White Blood Cell Scan OK
[2019-08-29] MEDS: INSULIN GLARGINE 100 UNITS/ML SQ SCH ×2 (08:44→20:55)
[2019-08-29] MEDS: INSULIN 70/30 100 UNITS/ML SQ SCH ×3 (08:44→20:54)
[2019-08-29] MEDS: FUROSEMIDE 40 MG/4 ML VIAL IV SCH ×2 (08:45→16:36)
[2019-08-29] MEDS: METOPROLOL XL 25 MG TAB PO SCH ×2 (08:47→20:56)
[2019-08-29] MEDS: ATORVASTATIN 80 MG TAB PO SCH (08:47)
[2019-08-29] MEDS: DULOXETINE 20 MG CAP PO SCH (08:47)
[2019-08-29] MEDS: cloNIDine HCL 0.1 MG TAB PO SCH ×3 (08:47→20:56)
[2019-08-29] MEDS: HYDROCORTISONE 1 % CREAM 30GM TOP SCH ×2 (08:48→20:58)
[2019-08-29] MEDS: APIXABAN 5 MG TABLET PO SCH ×2 (08:48→20:55)
--- NOTE | 2019-08-29 08:59 | RAD REPORT ---
EXAM DESCRIPTION: RAD - Chest Single View - 08/29/2019 8:25 am CLINICAL HISTORY: hypoxemia Chest pain. COMPARISON: Chest Single View dated 02/21/2017; Chest Single View dated 01/30/2017; CHEST SINGLE VIEW dated 12/10/2011; CHEST PA AND LAT 2 VIEW dated 12/29/2007 FINDINGS: Portable technique limits examination quality. Mild interstitial lung opacities are present bilaterally, greatest in the right base. The heart is mo derately enlarged. No displaced fractures.Trace left pleural fluid. IMPRESSION: Mild interstitial pneumonitis suspected.
[2019-08-29] MEDS ORDERED: FUROSEMIDE 80 MG PO SCH (09:00)
--- NOTE | 2019-08-29 17:04 | PN ---
Date of Progress Note: 08/29/2019 Subjective: The patient was admitted with acute kidney injury secondary to cardiorenal with anasarca superimposed with ARB yesterday. We started the patient on diuresis, held the ARB. Kidney function started being improved. The swelling has improved. Physical Examination: Vital Signs: Blood pressure 150/65, pulse of 55, afebrile. The patient had good urine output of 160 0, negative of 400. Chest: Decreased entry, bilateral bases. Heart: S1, S2. Systolic murmur. Abdomen: Soft, nontender. Extremity: +2 edema, but has a lot of wrinkles as edema has been subsided significantly. Neuro: Has right hemiparesis. Laboratory Data: WBC 10, H and H 10.6/31.6, platelets 213. Sodium 145, potassium 4.2, bicarb 31, BU N 39, creatinine 1.9, calcium 8.1, phosphorus 4.4. Serum protein electrophoresis is still pending. Vitamin D still pending. TSH 2.9. PTH 76. P/C ratio is 5.5. Assessment And Plan: 1.Acute kidney injury on chronic kidney disease secondary to cardiorenal with disproportion in kidne y size, 10/23, with nephrotic range of proteinuria, possibility of renal artery stenosis/diabetes neph ropathy as chronic kidney disease with cardiorenal for the patient. Currently, patient still on the over-volume size. I cannot continue the patient on the diuresis and we will monitor the patient clos crow. If there is any plan for discharge planning, the patient will need close followup. We will fol low up the echocardiogram. Patient may need, as outpatient, MRA for evaluation of the renal artery. 2.Anasarca secondary to cardiorenal/questionable renal artery stenosis. We will follow up the [facility] ardiogram. I am going to continue the patient on the diuresis and we will monitor. 3.Hypertension. We will keep utilizing blood pressure for more diuresis. 4.Diabetes. As by primary. 5.Renal artery stenosis. As above. Current Medications: The patient is on include, Levaquin, Eliquis, clonidine 0.1 t.i.d., atorvastati n, metoprolol, gabapentin, Lasix 40 b.i.d., levothyroxine, hydrocortisone. MA/MODL Voice ID: [id number] Report ID: [id number]
[2019-08-29] MEDS: GABAPENTIN 100 MG CAP PO SCH (20:55)
[2019-08-29] MEDS: FAMOTIDINE 20 MG TAB PO SCH (20:58)
[2019-08-29] MEDS: Levofloxacin 250mg IV 250 MG/50 ML BAG IV SCH (20:58)
[2019-08-30] MEDS: HYDROCORTISONE SUC 100 MG INJ IV SCH
[2019-08-30] MEDS ORDERED: HYDROCORTISONE SUC 100 MG INJ ONE (01:05)
[2019-08-30 01:44] VITALS: O2SAT 94
--- NOTE | 2019-08-30 04:19 | P.PN ---
Subjective Date of Service: 08/29/19 Patient continues to do well. Diuresing very effectively. Doing well and will need close outpatient follow with Nephrology. At this time, patient is stable and will arrange for discharge tomorrow. Will Dc Castro in the morning. Continue close monitoring as an outpatient. Patient states she has good family support at home and she should do well. Will need to have patient continue to follow-up closely with PCP and Nephrology. Review of Systems 10-point ROS is otherwise unremarkable Physical Examination - Vital Signs Temperature: 97.4 F Blood Pressure: 135/63 Pulse: 50 Respirations: 16 Pulse Ox (%): 90 - Physical Exam General: Alert, In no apparent distress, Oriented x3 Respiratory: Clear to auscultation bilaterally, Normal air movement Cardiovascular: Regular rate/rhythm, Normal S1 S2, Systolic murmur Gastrointestinal: Normal bowel sounds, Soft and benign, Non-distended, No tenderness Musculoskeletal: No clubbing, No swelling, No tenderness - Studies Microbiology Data (last 24 hrs): 08/27/19 17:30 Wound - Right Foot Gram Stain - Final Medications List Reviewed: Yes Assessment & Plan - Problems (Diagnosis) (1) Acute renal insufficiency Current Visit: Yes Status: Acute (2) Diabetes Current Visit: No Status: Acute (3) Stroke Current Visit: Yes Status: Acute (4) Osteomyelitis Current Visit: Yes Status: Acute (5) Atrial fibrillation Current Visit: Yes Status: Acute (6) Nephrotic syndrome Current Visit: Yes Status: Acute - Plan Patient is continuing to do well. Diuresing effectively. Lower extremity edema has improved remarkably. At this time, patient is doing well and is stable for discharge with outpatient follow-up with Nephrology for continued workup. Echocardiogram in the morning prior to discharge. Continue with outpatient follow-up for lab results with Nephrology. PCP follow-up as well. Patient has good support system at home. Should be stable for discharge tomorrow. Discharge Plan: Home Plan to discharge in: 24 Hours - Advance Directives Does patient have a Living Will: No Does patient have a Durable POA for Healthcare: No - Code Status/Comfort Care Code Status: Full Code Critical Care: No Time Spent Managing PTS Care (In Minutes): 25
--- NOTE | 2019-08-30 04:30 | P.DS ---
Discharge Date: 08/30/19 Disposition: ROUTINE DISCHARGE Discharge Condition: GOOD Reason for Admission: Dehydration with acute renal failure Consultations: Nephrology - Problems (1) Acute renal insufficiency Current Visit: Yes Status: Acute (2) Diabetes Current Visit: No Status: Acute (3) Stroke Current Visit: Yes Status: Acute (4) Osteomyelitis Current Visit: Yes Status: Acute (5) Atrial fibrillation Current Visit: Yes Status: Acute (6) Nephrotic syndrome Current Visit: Yes Status: Acute Brief History of Present Illness: Patient is a 71-year-old female who came to the hospital with acute on chronic renal insufficiency. Patient appears to be dehydrated. She clinically is not feeling well. Patient was feeling poorly the last few days. Her family convinced her to come to the hospital. Patient does not want to be in the hospital for a prolonged period. She is wishing to go home. She feels much better at this time. She denies any complaints. Will get her up out of bed and we will ambulate her. Will discontinue her Castro catheter. Hopefully will be able to discharge patient home with the next 24-48 hr. Will also Consult Nephrology for plan of care. Hospital Course: Patient was found have nephrotic syndrome as the etiology of anasarca. Patient was diuresed effectively. Anasarca has improved. Patient was seen by Nephrology and multiple workup and lab studies are pending. Appreciate their assistance and improving patient's current condition. Patient will have Castro Dc today and will be discharged. Close outpatient follow-up. Vital Signs/Physical Exam: Temp Pulse Resp BP Pulse Ox 97.4 F 50 16 135/63 90 L 08/30/19 04:19 08/30/19 04:19 08/30/19 04:19 08/30/19 04:19 08/30/19 04:19 General: Alert, In no apparent distress, Oriented x3 Laboratory Data at Discharge: WBC 10.0 K/uL (4.3-10.9) 08/29/19 05:40 Hgb 10.6 g/dL (12.0-15.0) L 08/29/19 05:40 Hct 31.6 % (36.0-45.0) L 08/29/19 05:40 Plt Count 213 K/uL (152-406) 08/29/19 05:40 PT 17.8 SECONDS (9.5-12.5) H 08/28/19 05:46 INR 1.52 08/28/19 05:46 APTT 37.9 SECONDS (24.3-36.9) H 08/28/19 05:46 Sodium 145 mmol/L (136-145) 08/29/19 05:40 Potassium 4.2 mmol/L (3.5-5.1) 08/29/19 05:40 BUN 39 mg/dL (7-18) H 08/29/19 05:40 Creatinine 1.92 mg/dL (0.55-1.3) H 08/29/19 05:40 Glucose 132 mg/dL (74-106) H 08/29/19 05:40 Uric Acid 7.8 mg/dL (2.6-6.0) H 08/28/19 05:46 Phosphorus 4.4 mg/dL (2.5-4.9) 08/29/19 05:40 Magnesium 2.2 mg/dL (1.8-2.4) 08/29/19 05:40 Total Bilirubin 0.5 mg/dL (0.2-1.0) 08/29/19 05:40 AST 18 U/L (15-37) 08/29/19 05:40 ALT 15 U/L (12-78) 08/29/19 05:40 Alkaline Phosphatase 75 U/L (45-117) 08/29/19 05:40 Triglycerides 62 mg/dL (<150) 08/28/19 05:46 Cholesterol 109 mg/dL (<200) 08/28/19 05:46 HDL Cholesterol 49 mg/dL (40-60) 08/28/19 05:46 Cholesterol/HDL Ratio 2.22 08/28/19 05:46 Home Medications: Levothyroxine Sodium 50 mcg PO DAILY 06/07/15 Atorvastatin Calcium [Lipitor] 1 tab PO BEDTIME 05/08/17 Duloxetine [Cymbalta *] 1 cap PO DAILY 05/08/17 Famotidine [Pepcid*] 1 tab PO BEDTIME 05/08/17 Apixaban [Eliquis] 1 tab PO BID 08/28/19 Clonidine HCl [Catapres] 0.1 mg PO BEDTIME 08/28/19 Docusate Sodium 100 mg PO DAILY PRN 08/28/19 Furosemide 80 mg PO DAILY 08/28/19 Gabapentin 200 mg PO BEDTIME 08/28/19 Hum Insulin NPH/Reg Insulin Hm [Humulin 70-30 Vial] 15 unit SQ TID 08/28/19 Spironolactone 1 tab PO DAILY PRN 08/28/19 Hydrocortisone Cream [Hydrocortisone 1% Cream*] 1 appl TOP BID #1 tube 08/30/19 Metoprolol Succinate [Toprol Xl*] 12.5 mg PO DAILY 6PM #30 tab 08/30/19 cloNIDine HCL [Catapres*] 0.1 mg PO TID #90 tab 08/30/19 New Medications: cloNIDine HCL [Catapres*] 0.1 mg PO TID #90 tab Hydrocortisone Cream [Hydrocortisone 1% Cream*] 1 appl TOP BID #1 tube Metoprolol Succinate [Toprol Xl*] 12.5 mg PO DAILY 6PM #30 tab Patient Discharge Instructions: OK TO DC IV AND DC HOME. FOLLOW-UP WITH PRIMARY CARE PROVIDER IN 1-2 WEEKS. FOLLOW-UP WITH CARDIOLOGY IN 1-2 WEEKS. FOLLOW-UP WITH NEPHROLOGY IN 1-2 WEEKS. RETURN TO THE ER IF symptoms worsen. CALL or TEXT DR. PERES AT [phone] IF ANY QUESTIONS REGARDING HOSPITAL STAY. PLEASE CALL THE FLOOR AT [phone] IF ANY MEDICATION OR NURSING QUESTIONS. Diet: Renal Activity: Fall precautions Time spent managing pt's care (in minutes): 30
[2019-08-30] MEDS: LEVOTHYROXINE SOD 0.05 MG TABLET PO SCH (05:49)
[2019-08-30 06:14] LABS: Albumin 2.3 g/dL (3.4-5.0); Magnesium 2.2 mg/dL (1.8-2.4); Phosphorus 4.2 mg/dL (2.5-4.9); Potassium 3.6 mmol/L (3.5-5.1)
[2019-08-30] MEDS ORDERED: FUROSEMIDE 40 MG TABLET PO SCH (09:00)
[2019-08-30] MEDS: INSULIN 70/30 100 UNITS/ML SQ SCH ×2 (09:31→13:45)
[2019-08-30] MEDS: INSULIN GLARGINE 100 UNITS/ML SQ SCH (09:31)
[2019-08-30] MEDS: ATORVASTATIN 80 MG TAB PO SCH (09:32)
[2019-08-30] MEDS: DULOXETINE 20 MG CAP PO SCH (09:32)
[2019-08-30] MEDS: cloNIDine HCL 0.1 MG TAB PO SCH ×2 (09:32→13:44)
[2019-08-30] MEDS: APIXABAN 5 MG TABLET PO SCH (09:33)
[2019-08-30] MEDS: METOPROLOL XL 25 MG TAB PO SCH (09:33)
[2019-08-30] MEDS: HYDROCORTISONE 1 % CREAM 30GM TOP SCH (09:40)
[2019-08-30 12:27] VITALS: BP 125/61; TEMP 96.6
--- NOTE | 2019-08-31 01:42 | PN ---
Date of Progress Note: 08/30/2019 Chief Complaint: Paqsk-ic-rpdotry kidney disease secondary to cardiorenal syndrome. History Of Present Illness: The patient has history of nephrotic-range proteinuria, possible renal artery stenosis, diabetic nephropathy and chronic kidney disease. The patient was treated with ARB for cardiorenal syndrome. Diuretic was started and ARB was on hold due to worsening of the renal function and cardiorenal syndrome. Review of Systems: Denies PND or orthopnea. Physical Examination: Vital Signs: Blood pressure is 140/65, heart rate 65. Eyes: Anicteric sclerae. EOMI. Lungs: Clear to auscultation bilaterally. Heart: S1 and S2. Systolic murmur 2/6 in the left lower sternal border. Extremities: 2+ edema. Laboratory Data: Hemoglobin 10.6, WBC 10.0, and platelet count is 213,000. Sodium 144, potassium 3.6, chloride 108, CO2 of 31, BUN 43, creatinine 1.87, glucose 119, calcium 8.1, phosphorus 4.2, magnesium 2.2, and albumin 2.3. Impression And Plan: 1. Cardiorenal syndrome. Renal function is stabilizing, plateauing. Creatinine level is ranging from 1.87 to 2.08. There is a high BUN-creatinine ratio. BUN is up to 43. The patient will continue diuretics for cardiorenal syndrome. 2. Hypertension. Continue blood pressure medication. Angiotensin receptor breanne is on hold due to worsening of the renal function. 3. Fluid overload. The patient has multiple medical problems including diabetic kidney disease and renal artery stenosis. Adjust blood pressure medication. The patient may need to resume angiotensin receptor breanne outpatient. Continue Lasix for volume control. I spent total 36 min including 25 min to coordinate care plan. WILLIAM/LAYLA Voice ID: [id number] Report ID: [id number] XIAO
[2019-09-02 22:27] LABS: Vitamin D 1,25-Dihydroxy Total 16 pg/mL (18-72); Vitamin D,1,25-OH2, D2 <8 pg/mL
[2019-09-02 23:04] LABS: Albumin, (SPE) 2.5 g/dL (3.8-4.8); Alpha-1-Globulins 0.3 g/dL (0.2-0.3); Alpha-2-Globulins 0.8 g/dL (0.5-0.9); Gamma Globulins 1.1 g/dL (0.8-1.7); INTERPRETATION REPORT
== END 2019-08-30 15:05 | disposition home or self-care (01) | DRG 699 ==
LOC: ER 14:20 → ERHOLD 20:30 → 2ND 20:34
PROVIDERS: ADMIT Hospitalist; ATTEND Hospitalist
DX: E11.21 Type 2 diabetes mellitus with diabetic nephropathy (principal); L03.115 Cellulitis of right lower limb; M86.8X6 Other osteomyelitis, lower leg; N17.9 Acute kidney failure, unspecified; E86.0 Dehydration; I13.10 Hypertensive heart and chronic kidney disease without heart failure, with stage 1 through stage 4 chronic kidney disease, or unspecified chronic kidney disease; N18.3 Chronic kidney disease, stage 3 (moderate); E11.22 Type 2 diabetes mellitus with diabetic chronic kidney disease; E11.69 Type 2 diabetes mellitus with other specified complication; E11.40 Type 2 diabetes mellitus with diabetic neuropathy, unspecified; E87.70 Fluid overload, unspecified; E03.9 Hypothyroidism, unspecified; I70.1 Atherosclerosis of renal artery; I48.91 Unspecified atrial fibrillation; R60.1 Generalized edema; Z11.59 Encounter for screening for other viral diseases; Z86.73 Personal history of transient ischemic attack (TIA), and cerebral infarction without residual deficits; Z79.01 Long term (current) use of anticoagulants; Z79.890 Hormone replacement therapy; Z79.899 Other long term (current) drug therapy; Z79.4 Long term (current) use of insulin; Z90.710 Acquired absence of both cervix and uterus; E11.621 Type 2 diabetes mellitus with foot ulcer; L97.519 Non-pressure chronic ulcer of other part of right foot with unspecified severity
CPT/HCPCS: 36415; 71045; 76770; 80048; 80053; 80061; 80069; 82550; 82570; 82652; 82947; 83735; 83970; 84145; 84156; 84165; 84443; 84550; 85025; 85610; 85652; 85730; 86140; 87040; 87070; 87077; 87186; 87205; 96374; 96375; 99285; J1720; J1815; J1940; J3370; J7030; J7050; U0002

== ENCOUNTER 2020-03-02 11:45 | Emergency (ER) | payer MEDICARE ==
--- OUTSIDE RECORDS SUMMARY | 2020-03-02 11:48 | XMS REPORT | Clinical Summary ---
:1940 Author Organization [facility] Address [address] [place] [address] Care Team Providers Name Role Phone JuniorTorsten Primary Care Provider Unavailable Allergies No Known Allergies Medications Medication Sig Dispensed Refills Start Date End Date Status aspirin 81 MG EC tablet Take 81 mg by 0 Active mouth daily. metoprolol (TOPROL-XL) Take 25 mg by 0 Active 25 MG 24 hr tablet mouth daily. insulin detemir 25u QAM and 15u 0 02/11/2017 Active (LEVEMIR) 100 unit/mL QHS. 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) 01/31/2017 Immunizations Name Administration Dates Next Due Influenza Three-TIV PF 5+ YR 01/31/2017 Family History Medical History Relation Name Comments Diabetes Father Hypertension Mother Relation Name Status Comments Father Mother Social History Tobacco Use Types Packs/Day Years Used Date Never Smoker Smokeless Tobacco: Never Used Alcohol Use Drinks/Week oz/Week Comments No Sex Assigned at Date Recorded Not on file Last Filed Vital Signs Not on file Plan of Treatment Not on file Results Not on fileafter 03/02/2019 Insurance Payer Benefit Plan / Subscriber ID Effective Dates Phone Addre ss Type Group [facility]/MEDICARE [id number] 2016-Present MEDICARE MGD CARE COMPLETE Advance Directives For more information, please contact: [phone] Code Status Date Activated Date Inactivated Comments Full Code 01/31/2017 4:30 AM 02/12/2017 5:35 PM This code status was determined by: Patient
--- OUTSIDE RECORDS SUMMARY | 2020-03-02 11:48 | XMS REPORT | Clinical Summary ---
:1940 Author Organization [facility] Address [address] [place] [address] Care Team Providers Name Role Phone Torsten Pacheco MD Primary Care Provider Allergies No Known Active Allergies Medications Medication Sig Dispensed Refills Start Date End Date Status atorvastatin (LIPITOR) TK 1 T PO D 3 06/23/2017 Active 80 MG tablet DULoxetine (CYMBALTA) 20 TK 1 C PO D 2 06/23/2017 Active MG capsule famotidine (PEPCID) 20 TK 1 T PO QHS 2 06/23/2017 Active MG tablet HUMULIN 70/30 U-100 INJECT 15 UNITS 11 07/22/2017 Active INSULIN 100 unit/mL UNDER THE SKIN (70-30) injection TID BEFORE MEALS levothyroxine TK 1 T PO D 4 05/10/2017 Act zena (SYNTHROID, LEVOXYL) 150 mcg tablet Active Problems Problem Noted Date Acute deep vein thrombosis (DVT) of axillary vein of l eft upper extremity 08/04/2017 Osteomyelitis 07/24/2017 Surgical History Surgery Date Site/Laterality Comments HYSTERECTOMY Medical History Medical History Date Comments Stroke (HCC) Hypertension Type 2 diabetes mellitus (HCC) Murmur Toe osteomyelitis, right (HCC) Social History Tobacco Use Types Packs/Day Years Used Date Never Smoker Smokeless Tobacco: Never Used Alcohol Use Drinks/Week oz/Week Comments No Sex Assigned at Date Recorded Not on file Last Filed Vital Signs Not on file Plan of Treatment Health Maintenance Due Date Last Done Comments DIABETES: RETINAL EYE EXAM [birth year]/13/1950 DIABETIC FOOT EXAM 08/13/1950 URINE MICROALBUMIN 08/13/1951 COVID-19 VACCINE (1 of 2) 1957 SHINGLES VACCINES (#1) 08/13/1991 65+ PNEUMOCOCCAL VACCINE (1 of 1 - PPSV23) 2006 INFLUENZA VACCINE 09/11/2019 Implants Implanted Type Area 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 Control Clerk Supervisor Device Shelf Model / Identifier Expiration Serial / Date Lot Catheter Cv Powerline Dlmn Al 6fr - [id number] Surgical N/A: N/A BAR D ACCESS [id number] / Implanted: 08/06/2017 at [facility] (Quantity not on file) Implan ts; SYSTEMS / Expanders; Extenders; Surgical Wires Results Not on fileafter 03/02/2019 Insurance Payer Benefit Plan / Subscriber ID Effective Dates Phone Addre ss Type Group UHC MEDICARE AAR MEDICARE [id number] 2017-Present HMO COMPLETE [facility] AAR SUPPLEMENT [id number] 2017-Present Commercial (Home) [place] [address] Advance Directives For more information, please contact: [phone] Type Date Recorded Patient Catalogue Librarian Explanati on Advance Directives, Living Will and Medical Power of Supervisor Scouring Pads
--- OUTSIDE RECORDS SUMMARY | 2020-03-02 11:49 | XMS REPORT | Continuity of Care Document ---
:1940 Author Organization [facility] t Address [address] [place] [address] Care Team Providers Name Role Phone Demetri Pacheco MD Primary Care Physician ALEX Attending Clinician Unavailable ALEX Admitting Clinician Unavailable Problems Condition Condition Condition Status Onset Resolution Last Treating Co mments Source Name Details Category Date Date Treatment Clinician Date Acute deep Acute deep Disease Active H outer[facility] vein vein 6-25 [facility] thrombosis thrombosis 00:00: st (DVT) of (DVT) of 00 axillary axillary vein of vein of left upper left upper extremity extremity Osteomyeli Osteomyeli Disease Active [place] tis tis 6-14 [facility]i 00:00: st 00 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 00:00: Me dical erosis erosis 00 Center 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 2, type 2, 00:00: Medical insulin insulin 00 Center dependent dependent Accelerate Accelerate Disease Active [facility] d 1-03 [facility] hypertensi hypertensi 00:00: Me dical on on 00 Center S/P S/P Disease Active [facility] radiofrequ radiofrequ 1-03 [facility] - ency ency 00:00: Medical ablation ablation 00 Center operation operation for for arrhythmia arrhythmia 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 Family History Family Member Diagnosis Comments Start Date Stop Date Source Natural father Diabetes [facility] Natural mother Hypertension [facility] Social History Social Habit Start Date Stop Date Quantity Comments Source Sex Assigned At [facility] Tobacco use and 2017-02-10 2017-02-10 Never used [facility] - exposure 00:00:00 00:00:00 [facility] Alcohol intake 2017-02-10 2017-02-[address] [facility] 00:00:00 00:00:00 non-drinker of Medical nter alcohol (finding) Smoking Status Start Date Stop Date Source Never smoker [facility] Medications Ordered Filled Start Stop Current Ordering Indication Dosage Frequency Signature Comments Components Source Medication Medication Date Date Medication? Clinician (SIG) Name Name HUMULIN Yes INJECT 15 [place] 70/30 U-100 6-12 UNITS [facility] INSULIN 100 00:00: UNDER THE s t unit/mL 00 SKIN TID (70-30) BEFORE injection MEALS atorvastati Yes TK 1 T PO H outer[facility] n (LIPITOR) 5-14 D Method[facility] 80 MG 00:00: st tablet 00 DULoxetine Yes TK 1 C PO [place] (CYMBALTA) 5-14 D [facility] 20 MG 00:00: st capsule 00 famotidine Yes TK 1 T PO [place] (PEPCID) 20 5-14 QHS [facility] MG tablet 00:00: st 00 levothyroxi Yes TK 1 T PO [place] ne 3-31 D [facility] (SYNTHROID, 00:00: st LEVOXYL) 00 150 mcg tablet aspirin 81 Yes 81mg QD Take [address] MG EC 03 by mouth [facility] - tablet 15:35: daily. Medical [address] [place] [address] metoprolol Yes 25mg QD Take [address] (TOPROL-XL) 03 by mouth Luke s - 25 MG 24 hr 15:35: daily. Medi dragan tablet [address] [place] [address] insulin Yes 25u QAM [facility] detemir 1-02 and 15u [facility] - (LEVEMIR) 00:00: QHS. Medical 100 unit/mL 00 Center (3 mL) InPn injection Immunizations Ordered Immunization Filled Immunization Date Status Commen ts Source Name Name Influenza Three-TIV 2017-01-31 Com[facility] 5[facility] Procedures This patient has no known procedures. Plan of Care Planned Activity Planned Date Details Comments Source Future Scheduled 2019-09-11 INFLUENZA VACCINE [place] [facility] 00:00:00 [code = INFLUENZA VACCINE] Future Scheduled 2006 65+ PNEUMOCOCCAL [place] [facility] 00:00:00 VACCINE (1 of 1 - PPSV23) [code = 65+ PNEUMOCOCCAL VACCINE (1 of 1 - PPSV23)] Future Scheduled 1991-08-13 SHINGLES VACCINES (#1) [place] [facility] 00:00:00 [code = SHINGLES VACCINES (#1)] Future Scheduled 1957 COVID-19 VACCINE (1 of [place] [facility] 00:00:00 2) [code = COVID-19 VACCINE (1 of 2)] Future Scheduled 1951-08-13 DIABETES: RETINAL EYE [place] [facility] 00:00:00 EXAM [code = DIABETES: RETINAL EYE EXAM] Future Scheduled 1951-08-13 DIABETIC FOOT EXAM [place] [facility] 00:00:00 [code = DIABETIC FOOT EXAM] Future Scheduled 1951-08-13 URINE MICROALBUMIN [place] [facility] 00:00:00 [code = URINE MICROALBUMIN] Results Test Description Test Time Test Comments Results Result Comments Source URINALYSIS W/ MICROSCOPIC 2017-02-12 14:41:00 Test Item Value Reference Range Interpretation Comme nts COLOR (BEAKER) (test code = 470) Yellow CLARITY (BEAKER) (test code = 469) Clear SPECIFIC GRAVITY UA (BEAKER) (test code = 1.015 1.001-1.035 468) PH UA (BEAKER) (test code = 467) 5.0 5.0-8.0 PROTEIN UA (BEAKER) (test code = 464) 100 mg/dL Negative A GLUCOSE UA (BEAKER) (test code = 365) Negative Negative KETONES UA (BEAKER) (test code = 371) Negative Negative BILIRUBIN UA (BEAKER) (test code = 462) Negative Negative BLOOD UA (BEAKER) (test code = 461) Negative Negative NITRITE UA (BEAKER) (test code = 465) Negative Negative LEUKOCYTE ESTERASE UA (BEAKER) (test code = Negative Negative 466) UROBILINOGEN UA (BEAKER) (test code = 463) 0.2 mg/dL 0.2-1.0 RBC UA (BEAKER) (test code = 519) 0 /HPF WBC UA (BEAKER) (test code = 520) 1 /HPF BACTERIA (BEAKER) (test code = 517) Occasional MUCUS (BEAKER) (test code = 1574) Rare SOURCE(BEAKER) (test code = 2795) Urine, Straight Catheter POCT-GLUCOSE [id number] 11:21:00 Test Item Value Reference Range Interpretation Comments POC-GLUCOSE METER 167 mg/dL 70-110 H TESTED AT [place] [address] ([facility]) (test code = TUTU Reese [place] 1538) [id number] POCT-GLUCOSE [id number] 08:56:00 Test Item Value Reference Range Interpretation Comments POC-GLUCOSE METER 167 mg/dL 70-110 H TESTED AT [place] [address] ([facility]) (test code = TUTU Reese [place] 1538) [id number] POCT-GLUCOSE [id number] 22:03:00 Test Item Value Reference Range Interpretation Comments POC-GLUCOSE METER 128 mg/dL 70-110 H TESTED AT [place] [address] ([facility]) (test code = [place] SEG NavigationLESLY Reese [place] 1538) [id number] POCT-GLUCOSE [id number] 17:31:00 Test Item Value Reference Range Interpretation Comments POC-GLUCOSE METER 141 mg/dL 70-110 H TESTED AT [place] [address] (BEAKER) (test code = [place] SEG NavigationNE R [place] 1538) [id number] POCT-GLUCOSE [id number] 11:58:00 Test Item Value Reference Range Interpretation Comments POC-GLUCOSE METER 159 mg/dL 70-110 H TESTED AT [place] [address] (BEAKER) (test code = TUTU Reese [place] 1538) [id number] POCT-GLUCOSE [id number] 07:47:00 Test Item Value Reference Range Interpretation Comments POC-GLUCOSE METER 115 mg/dL 70-110 H TESTED AT [place] [address] ([facility]) (test code = TUTU [place] 1538) [id number] POCT-GLUCOSE [id number] 21:03:00 Test Item Value Reference Range Interpretation Comments POC-GLUCOSE METER 177 mg/dL 70-110 H TESTED AT [place] [address] ([facility]) (test code = TUTU [place]ese [place] 1538) [id number] POCT-GLUCOSE [id number] 16:23:00 Test Item Value Reference Range Interpretation Comments POC-GLUCOSE METER 185 mg/dL 70-110 H TESTED AT [place] [address] ([facility]) (test code = TUTU [place]ese [place] 1538) [id number] POCT-GLUCOSE [id number] 12:04:00 Test Item Value Reference Range Interpretation Comments POC-GLUCOSE METER 208 mg/dL 70-110 H TESTED AT [place] [address] ([facility]) (test code = TUTU [place]ese [place] 1538) [id number] POCT-GLUCOSE [id number] 07:51:00 Test Item Value Reference Range Interpretation Comments POC-GLUCOSE METER 127 mg/dL 70-110 H TESTED AT [place] [address] ([facility]) (test code = TUTU [place] 1538) [id number] POCT-GLUCOSE [id number] 20:44:00 Test Item Value Reference Range Interpretation Comments POC-GLUCOSE METER 225 mg/dL 70-110 H TESTED AT [place] [address] ([facility]) (test code = TUTU Reese [place] 1538) [id number] POCT-GLUCOSE [id number] 17:52:00 Test Item Value Reference Range Interpretation Comments POC-GLUCOSE METER 150 mg/dL 70-110 H TESTED AT [place] [address] ([facility]) (test code = TUTU [place] 1538) [id number] POCT-GLUCOSE [id number] 12:45:00 Test Item Value Reference Range Interpretation Comments POC-GLUCOSE METER 176 mg/dL 70-110 H TESTED AT [place] [address] ([facility]) (test code = TUTU [place] 1538) [id number] POCT-GLUCOSE [id number] 07:41:00 Test Item Value Reference Range Interpretation Comments POC-GLUCOSE METER 147 mg/dL 70-110 H TESTED AT [place] [address] ([facility]) (test code = TUTU [place]ese [place] 1538) [id number] POCT-GLUCOSE [id number] 20:42:00 Test Item Value Reference Range Interpretation Comments POC-GLUCOSE METER 194 mg/dL 70-110 H TESTED AT [place] [address] ([facility]) (test code = LUISALESLY [place] 1538) [id number] POCT-GLUCOSE [id number] 17:33:00 Test Item Value Reference Range Interpretation Comments POC-GLUCOSE METER 174 mg/dL 70-110 H TESTED AT [place] [address] ([facility]) (test code = LUISALESLY [place] 1538) [id number] POCT-GLUCOSE [id number] 12:14:00 Test Item Value Reference Range Interpretation Comments POC-GLUCOSE METER 153 mg/dL 70-110 H TESTED AT [place] [address] ([facility]) (test code = LUISALESLY [place] 1538) [id number] POCT-GLUCOSE [id number] 07:55:00 Test Item Value Reference Range Interpretation Comments POC-GLUCOSE METER 220 mg/dL 70-110 H TESTED AT [place] [address] ([facility]) (test code = T[place]U [place] 1538) [id number] POCT-GLUCOSE [id number] 20:50:00 Test Item Value Reference Range Interpretation Comments POC-GLUCOSE METER 241 mg/dL 70-110 H TESTED AT [place] [address] ([facility]) (test code = T[place] 1538) [id number] POCT-GLUCOSE [id number] 16:54:00 Test Item Value Reference Range Interpretation Comments POC-GLUCOSE METER 218 mg/dL 70-110 H TESTED AT [place] [address] ([facility]) (test code = TUTU [place] 1538) [id number] POCT-GLUCOSE [id number] 11:45:00 Test Item Value Reference Range Interpretation Comments POC-GLUCOSE METER 257 mg/dL 70-110 H TESTED AT [place] [address] ([facility]) (test code = T[place]U [place] 1538) [id number] POCT-GLUCOSE [id number] 07:57:00 Test Item Value Reference Range Interpretation Comments POC-GLUCOSE METER 219 mg/dL 70-110 H TESTED AT [place] [address] ([facility]) (test code = T[place]U [place] 1538) [id number] BASIC METABOLIC [id number] 06:05:00 Test Item Value Reference Range Interpretation Comments SODIUM (BEAKER) 139 meq/L 136-145 (test code = 381) POTASSIUM (BEAKER) 4.1 meq/L 3.5-5.1 (test code = 379) CHLORIDE (BEAKER) 109 meq/L 98-107 H (test code = 382) CO2 (BEAKER) (test 23 meq/L 22-29 code = 355) BLOOD UREA NITROGEN 24 mg/dL 7-21 H (BEAKER) (test code = 354) CREATININE (BEAKER) 0.75 mg/dL 0.57-1.25 (test code = 358) GLUCOSE RANDOM 203 mg/dL 70-105 H (BEAKER) (test code = 652) CALCIUM (BEAKER) 8.6 mg/dL 8.4-10.2 (test code = 697) EGFR (BEAKER) (test 75 mL/min/1.73 ESTIMA TONI GFR IS code = 1092) sq m NOT ACCURATE CREATININE CLEARANCE IN PREDICTING GLOMERULAR FILTRATION RATE . ESTIMATED GFR I S NOT APPLICABLE FOR DIALYSIS PATIEN TS. CBC W/PLT COUNT & AUTO [id number] 05:42:00 Test Item Value Reference Range Interpretation Comments WHITE BLOOD CELL COUNT (BEAKER) 9.2 K/ L 3.5-10.5 (test code = 775) RED BLOOD CELL COUNT (BEAKER) 4.26 M/ L 3.93-5.22 (test code = 761) HEMOGLOBIN (BEAKER) (test code = 12.9 GM/DL 11.2-15.7 410) HEMATOCRIT (BEAKER) (test code = 39.6 % 34.1-44.9 411) MEAN CORPUSCULAR VOLUME (BEAKER) 93.0 fL 79.4-94.8 (test code = 753) MEAN CORPUSCULAR HEMOGLOBIN 30.3 pg 25.6-32.2 (BEAKER) (test code = 751) MEAN CORPUSCULAR HEMOGLOBIN CONC 32.6 GM/DL 32.2-35.5 (BEAKER) (test code = 752) RED CELL DISTRIBUTION WIDTH 11.9 % 11.7-14.4 (BEAKER) (test code = 412) PLATELET COUNT (BEAKER) (test 288 K/CU MM 150-450 code = 756) MEAN PLATELET VOLUME (BEAKER) 9.6 fL 9.4-12.3 (test code = 754) NUCLEATED RED BLOOD CELLS 0 /100 WBC 0-0 (BEAKER) (test code = 413) NEUTROPHILS RELATIVE PERCENT 62 % (BEAKER) (test code = 429) LYMPHOCYTES RELATIVE PERCENT 22 % (BEAKER) (test code = 430) MONOCYTES RELATIVE PERCENT 8 % (BEAKER) (test code = 431) EOSINOPHILS RELATIVE PERCENT 7 % (BEAKER) (test code = 432) BASOPHILS RELATIVE PERCENT 0 % (BEAKER) (test code = 437) NEUTROPHILS ABSOLUTE COUNT 5.73 K/ L 1.56-6.13 (BEAKER) (test code = 670) LYMPHOCYTES ABSOLUTE COUNT 2.02 K/ L 1.18-3.74 (BEAKER) (test code = 414) MONOCYTES ABSOLUTE COUNT (BEAKER) 0.75 K/ L 0.24-0.36 H (test code = 415) EOSINOPHILS ABSOLUTE COUNT 0.63 K/ L 0.04-0.36 H (BEAKER) (test code = 416) BASOPHILS ABSOLUTE COUNT (BEAKER) 0.04 K/ L 0.01-0.08 (test code = 417) IMMATURE GRANULOCYTES-RELATIVE 0 % 0-1 PERCENT (BEAKER) (test code = 2801) POCT-GLUCOSE [id number] 20:57:00 Test Item Value Reference Range Interpretation Comments POC-GLUCOSE METER 301 mg/dL 70-110 H Notified R Becca SHOEMAKER/TESTED ([facility]) (test code = AT [place] [id number]) [facility] 7[address] 0 POCT-GLUCOSE [id number] 15:57:00 Test Item Value Reference Range Interpretation Comments POC-GLUCOSE METER 292 mg/dL 70-110 H TESTED AT [place] [address] ([facility]) (test code = TUTU Reese [facility] 1538) [id number] POCT-GLUCOSE [id number] 13:36:00 Test Item Value Reference Range Interpretation Comments POC-GLUCOSE METER 181 mg/dL 70-110 H TESTED AT [place] [address] ([facility]) (test code = TUTU Reese [facility] 1538) [id number] POCT-GLUCOSE [id number] 07:46:00 Test Item Value Reference Range Interpretation Comments POC-GLUCOSE METER 172 mg/dL 70-110 H TESTED AT [place] [address] ([facility]) (test code = TUTU Reese [facility] 1538) [id number] POCT-GLUCOSE [id number] 21:03:00 Test Item Value Reference Range Interpretation Comments POC-GLUCOSE METER 195 mg/dL 70-110 H TESTED AT [place] [address] ([facility]) (test code = TUTU Reese [facility] 1538) [id number] POCT-GLUCOSE [id number] 16:41:00 Test Item Value Reference Range Interpretation Comments POC-GLUCOSE METER 198 mg/dL 70-110 H TESTED AT [place] [address] ([facility]) (test code = TUTU Reese [facility] 1538) [id number] POCT-GLUCOSE [id number] 12:08:00 Test Item Value Reference Range Interpretation Comments POC-GLUCOSE METER 241 mg/dL 70-110 H TESTED AT [place] [address] ([facility]) (test code = [facility] Hugh [facility] 1538) [id number] POCT-GLUCOSE [id number] 08:27:00 Test Item Value Reference Range Interpretation Comments POC-GLUCOSE METER 300 mg/dL 70-110 H TESTED AT [place] [address] ([facility]) (test code = [facility] Hugh [facility] 1538) [id number] BASIC METABOLIC [id number] 05:56:00 Test Item Value Reference Range Interpretation Comments SODIUM (BEAKER) 138 meq/L 136-145 (test code = 381) POTASSIUM (BEAKER) 4.2 meq/L 3.5-5.1 (test code = 379) CHLORIDE (BEAKER) 107 meq/L 98-107 (test code = 382) CO2 (BEAKER) (test 22 meq/L 22-29 code = 355) BLOOD UREA NITROGEN 21 mg/dL 7-21 (BEAKER) (test code = 354) CREATININE (BEAKER) 0.77 mg/dL 0.57-1.25 (test code = 358) GLUCOSE RANDOM 256 mg/dL 70-105 H (BEAKER) (test code = 652) CALCIUM (BEAKER) 8.5 mg/dL 8.4-10.2 (test code = 697) EGFR (BEAKER) (test 73 mL/min/1.73 ESTIMA TONI GFR IS code = 1092) sq m NOT ACCURATE CREATININE CLEARANCE IN PREDICTING GLOMERULAR FILTRATION RATE . ESTIMATED GFR I S NOT APPLICABLE FOR DIALYSIS PATIEN TS. PROTHROMBIN [id number] 04:54:00 Test Item Value Reference Range Interpretation Comments PROTIME (BEAKER) (test code = 14.5 seconds 11.7-14.7 759) INR (BEAKER) (test code = 370) 1.1 <=5.9 RECOMMENDED COUMADIN/WARFARIN INR THERAPY RANGESSTANDARD DOSE: 2.0 - 3.0 Includes: PROPHYLAXIS forvenous thrombosis, systemic embolization; TREATMENT for venous thrombosis and/or pulmonary embolus.HIGH RISK: Target INR is 2.5-3.5 for patients with mechanical heart valves.CBC W/PLT COUNT & AUTO DIFFERENTIAL 2017-02-05 04:50:00 Test Item Value Reference Range Interpretation Comments WHITE BLOOD CELL COUNT (BEAKER) 9.8 K/ L 3.5-10.5 (test code = 775) RED BLOOD CELL COUNT (BEAKER) 4.27 M/ L 3.93-5.22 (test code = 761) HEMOGLOBIN (BEAKER) (test code = 12.9 GM/DL 11.2-15.7 410) HEMATOCRIT (BEAKER) (test code = 39.8 % 34.1-44.9 411) MEAN CORPUSCULAR VOLUME (BEAKER) 93.2 fL 79.4-94.8 (test code = 753) MEAN CORPUSCULAR HEMOGLOBIN 30.2 pg 25.6-32.2 (BEAKER) (test code = 751) MEAN CORPUSCULAR HEMOGLOBIN CONC 32.4 GM/DL 32.2-35.5 (BEAKER) (test code = 752) RED CELL DISTRIBUTION WIDTH 12.0 % 11.7-14.4 (BEAKER) (test code = 412) PLATELET COUNT (BEAKER) (test 279 K/CU MM 150-450 code = 756) MEAN PLATELET VOLUME (BEAKER) 9.5 fL 9.4-12.3 (test code = 754) NUCLEATED RED BLOOD CELLS 0 /100 WBC 0-0 (BEAKER) (test code = 413) NEUTROPHILS RELATIVE PERCENT 69 % (BEAKER) (test code = 429) LYMPHOCYTES RELATIVE PERCENT 18 % (BEAKER) (test code = 430) MONOCYTES RELATIVE PERCENT 9 % (BEAKER) (test code = 431) EOSINOPHILS RELATIVE PERCENT 4 % (BEAKER) (test code = 432) BASOPHILS RELATIVE PERCENT 0 % (BEAKER) (test code = 437) NEUTROPHILS ABSOLUTE COUNT 6.74 K/ L 1.56-6.13 H (BEAKER) (test code = 670) LYMPHOCYTES ABSOLUTE COUNT 1.73 K/ L 1.18-3.74 (BEAKER) (test code = 414) MONOCYTES ABSOLUTE COUNT (BEAKER) 0.83 K/ L 0.24-0.36 H (test code = 415) EOSINOPHILS ABSOLUTE COUNT 0.43 K/ L 0.04-0.36 H (BEAKER) (test code = 416) BASOPHILS ABSOLUTE COUNT (BEAKER) 0.02 K/ L 0.01-0.08 (test code = 417) IMMATURE GRANULOCYTES-RELATIVE 0 % 0-1 PERCENT ([facility]) (test code = 2801) POCT-GLUCOSE [id number] 22:08:00 Test Item Value Reference Range Interpretation Comments POC-GLUCOSE METER 285 mg/dL 70-110 H TESTED AT [place] [address] ([facility]) (test code = TUTU Reese [facility] 1538) [id number] POCT-GLUCOSE [id number] 16:19:00 Test Item Value Reference Range Interpretation Comments POC-GLUCOSE METER 230 mg/dL 70-110 H TESTED AT [place] [address] ([facility]) (test code = [facility] 1538) [id number] RAD, ANKLE, MIN 3 VIEWS, [id number] 12:27:00Reason for exam:->pain edema following fallFINAL REPORT Clinical history: pain edema following fall TECHNIQUE: 3 views of the right ankle COMPARISON: None IMPRESSION: There is soft tissue swelling over the medial malleolus. There is no evidence of fracture or dislocation. There are dorsal and plantar calcaneal spurs. There are vascular calcifications. Signed: Car Hong MDReport Verified Date/Time: 02/04/2017 12:27:23 Reading Location: [facility] Radiology Reading Room POCT-GLUCOSE [id number] 11:55:00 Test Item Value Reference Range Interpretation Comments POC-GLUCOSE METER 204 mg/dL 70-110 H TESTED AT [place] [address] ([facility]) (test code = [facility] 1538) [id number] POCT-GLUCOSE [id number] 08:00:00 Test Item Value Reference Range Interpretation Comments POC-GLUCOSE METER 217 mg/dL 70-110 H TESTED AT [facility] 6720 (BEAKER) (test code = [facility] 1538) [id number] 07:14:00 Test Item Value Reference Range Interpretation Comments PHOSPHORUS (BEAKER) (test code = 3.8 mg/dL 2.3-4.7 604) [id number] 07:14:00 Test Item Value Reference Range Interpretation Comments MAGNESIUM (BEAKER) (test code = 1.7 mg/dL 1.6-2.6 627) BASIC METABOLIC [id number] 07:14:00 Test Item Value Reference Range Interpretation Comments SODIUM (BEAKER) 138 meq/L 136-145 (test code = 381) POTASSIUM (BEAKER) 4.1 meq/L 3.5-5.1 (test code = 379) CHLORIDE (BEAKER) 105 meq/L 98-107 (test code = 382) CO2 (BEAKER) (test 26 meq/L 22-29 code = 355) BLOOD UREA NITROGEN 18 mg/dL 7-21 (BEAKER) (test code = 354) CREATININE (BEAKER) 0.76 mg/dL 0.57-1.25 (test code = 358) GLUCOSE RANDOM 229 mg/dL 70-105 H (BEAKER) (test code = 652) CALCIUM (BEAKER) 8.5 mg/dL 8.4-10.2 (test code = 697) EGFR (BEAKER) (test 74 mL/min/1.73 ESTIMA TONI GFR IS code = 1092) sq m NOT ACCURATE CREATININE CLEARANCE IN PREDICTING GLOMERULAR FILTRATION RATE . ESTIMATED GFR I S NOT APPLICABLE FOR DIALYSIS PATIEN TS. POCT-GLUCOSE [id number] 22:31:00 Test Item Value Reference Range Interpretation Comments POC-GLUCOSE METER 288 mg/dL 70-110 H TESTED AT [facility] 6720 (BEAKER) (test code = [facility] 1538) [id number] POCT-GLUCOSE [id number] 17:03:00 Test Item Value Reference Range Interpretation Comments POC-GLUCOSE METER 268 mg/dL 70-110 H TESTED AT [facility] 6720 ([facility]) (test code = [facility] 1538) [id number] POCT-GLUCOSE [id number] 12:31:00 Test Item Value Reference Range Interpretation Comments POC-GLUCOSE METER 214 mg/dL 70-110 H TESTED AT [facility] 6720 ([facility]) (test code = TUTU Z[place] 1538) [address] CT, BRAIN, WITHOUT [id number] 09:22:00FINAL REPORT CT head without contrast INDICATION: Cerebral ischemia. TECHNIQUE: Axial noncontrast CT images through the head were obtained. This exam was performed according to our departmental dose optimization program which includes automated exposure control, adjustment of the mA and/or kV according to patient size and/or use of iterative reconstruction technique. 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 Other microvascular is made changesare chronic appearing. Please note that CT is insensitive for early or small infarcts. Generalized mild volume loss and vascular calcifications are noted. There is no hydrocephalus or midline shift. There is ethmoid and maxillary sinus mucosal disease with right maxillary sinus fluid secretions. The mastoid air cells are well aerated. There has been cataract surgery. The calvarium is intact. 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 No associated hemorrhage o r mass effect. Findings which may reflect acute on chronic sinusitis. Signed: Charanjit Ibarra Verified Date/Time: 02/03/2017 09:22:48 Reading Location: [address] Neuro Reading Room POCT-GLUCOSE [id number] 07:19:00 Test Item Value Reference Range Interpretation Comments POC-GLUCOSE METER 218 mg/dL 70-110 H TESTED AT [facility] 67[address] ([facility]) (test code = TUTU Reese [facility] 1538) [address] [id number] 06:12:00 Test Item Value Reference Range Interpretation Comments PHOSPHORUS (BEAKER) (test code = 3.1 mg/dL 2.3-4.7 604) [id number] 06:12:00 Test Item Value Reference Range Interpretation Comments MAGNESIUM (BEAKER) (test code = 1.6 mg/dL 1.6-2.6 627) BASIC METABOLIC [id number] 06:12:00 Test Item Value Reference Range Interpretation Comments SODIUM (BEAKER) 139 meq/L 136-145 (test code = 381) POTASSIUM (BEAKER) 3.8 meq/L 3.5-5.1 (test code = 379) CHLORIDE (BEAKER) 106 meq/L 98-107 (test code = 382) CO2 (BEAKER) (test 24 meq/L 22-29 code = 355) BLOOD UREA NITROGEN 18 mg/dL 7-21 (BEAKER) (test code = 354) CREATININE (BEAKER) 0.78 mg/dL 0.57-1.25 (test code = 358) GLUCOSE RANDOM 200 mg/dL 70-105 H (BEAKER) (test code = 652) CALCIUM (BEAKER) 8.5 mg/dL 8.4-10.2 (test code = 697) EGFR (BEAKER) (test 72 mL/min/1.73 ESTIMA TONI GFR IS code = 1092) sq m NOT ACCURATE CREATININE CLEARANCE IN PREDICTING GLOMERULAR FILTRATION RATE . ESTIMATED GFR I S NOT APPLICABLE FOR DIALYSIS PATIEN TS. POCT-GLUCOSE [id number] 23:10:00 Test Item Value Reference Range Interpretation Comments POC-GLUCOSE METER 239 mg/dL 70-110 H TESTED AT [place] [address] ([facility]) (test code = [facility] Hugh [facility] 1538) [id number] POCT-GLUCOSE [id number] 17:20:00 Test Item Value Reference Range Interpretation Comments POC-GLUCOSE METER 291 mg/dL 70-110 H TESTED AT [place] [address] ([facility]) [facility] 1538) [id number] POCT-GLUCOSE [id number] 12:39:00 Test Item Value Reference Range Interpretation Comments POC-GLUCOSE METER 274 mg/dL 70-110 H TESTED AT [place] [address] ([facility]) (test code = [facility] 1538) [id number] POCT-GLUCOSE [id number] 11:35:00 Test Item Value Reference Range Interpretation Comments POC-GLUCOSE METER 289 mg/dL 70-110 H TESTED AT [place] [address] ([facility]) (test code = [facility] 1538) [id number] POCT-GLUCOSE [id number] 11:07:00 Test Item Value Reference Range Interpretation Comments POC-GLUCOSE METER 271 mg/dL 70-110 H TESTED AT [facility] 6720 (DAO) (test code = TUTU STROUD 1538) [id number] CT, BRAIN, WITHOUT [id number] 10:51:00FINAL REPORT CT head without contrast INDICATION: Stroke, right sided weakness, worsening balance, slurred speech TECHNIQUE: Axial noncontrast CT images through the head were obtained. This exam was performed according to our departmental dose optimization program which includesautomated exposure control, adjustment of the mA and/or kV according to patient size and/or use of iterative reconstruction technique. 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 Other microvascular ischemic changes are chronic appearing. No hematoma, extra axial collection, or mass effect is evident. Please note that CT is insensitive for early or small infarcts. Generalized mild volume loss and vascular calcifications arenoted. There is no hydrocephalus or midline shift. There is ethmoid and maxillary sinus opacification with maxillary sinus fluid levels. The mastoid air cells are well aerated. There has been cataract surgery. The calvarium is intact. IMPRESSION: Since 01/31/2017, left pontine lucency corresponds to arecent infarct seen on MRI. No hematoma or mass effect. Findings which may reflect acute on chronic sinusitis. Additional chronic appearing findings as discussed above. Signed: Charanjit Ibarra MDReport Verified Date/Time: 02/02/2017 10:51:15 Reading Location: [address] Neuro Reading Room [id number] 06:07:00 Test Item Value Reference Range Interpretation Comments PHOSPHORUS (BEAKER) (test code = 3.2 mg/dL 2.3-4.7 604) [id number] 06:07:00 Test Item Value Reference Range Interpretation Comments MAGNESIUM (BEAKER) (test code = 2.4 mg/dL 1.6-2.6 627) BASIC METABOLIC [id number] 06:07:00 Test Item Value Reference Range Interpretation Comments SODIUM (BEAKER) 137 meq/L 136-145 (test code = 381) POTASSIUM (BEAKER) 3.8 meq/L 3.5-5.1 (test code = 379) CHLORIDE (BEAKER) 104 meq/L 98-107 (test code = 382) CO2 (BEAKER) (test 25 meq/L 22-29 code = 355) BLOOD UREA NITROGEN 15 mg/dL 7-21 (BEAKER) (test code = 354) CREATININE (BEAKER) 0.82 mg/dL 0.57-1.25 (test code = 358) GLUCOSE RANDOM 286 mg/dL 70-105 H (BEAKER) (test code = 652) CALCIUM (BEAKER) 8.5 mg/dL 8.4-10.2 (test code = 697) EGFR (BEAKER) (test 68 mL/min/1.73 ESTIMA TONI GFR IS code = 1092) sq m NOT ACCURATE CREATININE CLEARANCE IN PREDICTING GLOMERULAR FILTRATION RATE . ESTIMATED GFR I S NOT APPLICABLE FOR DIALYSIS PATIEN TS. POCT-GLUCOSE [id number] 21:34:00 Test Item Value Reference Range Interpretation Comments POC-GLUCOSE METER 331 mg/dL 70-110 H TESTED AT [facility] 6720 (BEAKER) (test code = [facility] 1538) [id number] HEMOGLOBIN [id number] 14:53:00 Test Item Value Reference Range Interpretation Comments HEMOGLOBIN A1C (BEAKER) (test code = 14.8 % 4.3-6.1 H 368) POCT-GLUCOSE [id number] 11:57:00 Test Item Value Reference Range Interpretation Comments POC-GLUCOSE METER 232 mg/dL 70-110 H TESTED AT [facility] 6720 (BEAKER) (test code = [facility] 1538) [id number] 11:44:00 Test Item Value Reference Range Interpretation Comments PHOSPHORUS (BEAKER) (test code = 3.0 mg/dL 2.3-4.7 604) [id number] 11:44:00 Test Item Value Reference Range Interpretation Comments MAGNESIUM (BEAKER) (test code = 1.3 mg/dL 1.6-2.6 L 627) BASIC METABOLIC [id number] 11:44:00 Test Item Value Reference Range Interpretation Comments SODIUM (BEAKER) 139 meq/L 136-145 (test code = 381) POTASSIUM (BEAKER) 3.4 meq/L 3.5-5.1 L (test code = 379) CHLORIDE (BEAKER) 105 meq/L 98-107 (test code = 382) CO2 (BEAKER) (test 22 meq/L 22-29 code = 355) BLOOD UREA NITROGEN 13 mg/dL 7-21 (BEAKER) (test code = 354) CREATININE (BEAKER) 0.73 mg/dL 0.57-1.25 (test code = 358) GLUCOSE RANDOM 262 mg/dL 70-105 H (BEAKER) (test code = 652) CALCIUM (BEAKER) 8.8 mg/dL 8.4-10.2 (test code = 697) EGFR (BEAKER) (test 78 mL/min/1.73 ESTIMA TONI GFR IS code = 1092) sq m NOT ACCURATE CREATININE CLEARANCE IN PREDICTING GLOMERULAR FILTRATION RATE . ESTIMATED GFR I S NOT APPLICABLE FOR DIALYSIS PATIEN TS. CBC W/PLT COUNT & AUTO [id number] 11:18:00 Test Item Value Reference Range Interpretation Comments WHITE BLOOD CELL COUNT (BEAKER) 11.8 K/ L 3.5-10.5 H (test code = 775) RED BLOOD CELL COUNT (BEAKER) 4.50 M/ L 3.93-5.22 (test code = 761) HEMOGLOBIN (BEAKER) (test code = 13.5 GM/DL 11.2-15.7 410) HEMATOCRIT (BEAKER) (test code = 40.1 % 34.1-44.9 411) MEAN CORPUSCULAR VOLUME (BEAKER) 89.1 fL 79.4-94.8 (test code = 753) MEAN CORPUSCULAR HEMOGLOBIN 30.0 pg 25.6-32.2 (BEAKER) (test code = 751) MEAN CORPUSCULAR HEMOGLOBIN CONC 33.7 GM/DL 32.2-35.5 (BEAKER) (test code = 752) RED CELL DISTRIBUTION WIDTH 11.9 % 11.7-14.4 (BEAKER) (test code = 412) PLATELET COUNT (BEAKER) (test 286 K/CU MM 150-450 code = 756) MEAN PLATELET VOLUME (BEAKER) 9.2 fL 9.4-12.3 L (test code = 754) NUCLEATED RED BLOOD CELLS 0 /100 WBC 0-0 (BEAKER) (test code = 413) NEUTROPHILS RELATIVE PERCENT 78 % (BEAKER) (test code = 429) LYMPHOCYTES RELATIVE PERCENT 15 % (BEAKER) (test code = 430) MONOCYTES RELATIVE PERCENT 6 % (BEAKER) (test code = 431) EOSINOPHILS RELATIVE PERCENT 1 % (BEAKER) (test code = 432) BASOPHILS RELATIVE PERCENT 0 % (BEAKER) (test code = 437) NEUTROPHILS ABSOLUTE COUNT 9.24 K/ L 1.56-6.13 H (BEAKER) (test code = 670) LYMPHOCYTES ABSOLUTE COUNT 1.75 K/ L 1.18-3.74 (BEAKER) (test code = 414) MONOCYTES ABSOLUTE COUNT (BEAKER) 0.66 K/ L 0.24-0.36 H (test code = 415) EOSINOPHILS ABSOLUTE COUNT 0.12 K/ L 0.04-0.36 (BEAKER) (test code = 416) BASOPHILS ABSOLUTE COUNT (BEAKER) 0.04 K/ L 0.01-0.08 (test code = 417) IMMATURE GRANULOCYTES-RELATIVE 0 % 0-1 PERCENT (BEAKER) (test code = 2801) POCT-GLUCOSE [id number] 08:37:00 Test Item Value Reference Range Interpretation Comments POC-GLUCOSE METER 269 mg/dL 70-110 H TESTED AT [facility] 6720 (BEAKER) (test code = T[facility] STROUD 1538) [id number] LIPID [id number] 03:12:00 Test Item Value Reference Range Interpretation Comments TRIGLYCERIDES (BEAKER) (test code = 129 mg/dL 540) CHOLESTEROL (BEAKER) (test code = 185 mg/dL 631) HDL CHOLESTEROL (BEAKER) (test code 39 mg/dL = 976) LDL CHOLESTEROL CALCULATED (BEAKER) 120 mg/dL (test code = 633) Triglyceride Reference Range: Low Risk <150 Borderline 150-199 High Risk 200-499 Very High Risk >=500Cholesterol Reference Range: Low Risk <200 Borderline 200-239 High Risk >240HDL Cholesterol Reference Range: Low Risk >=60 High Risk <40LDL Cholesterol Reference Range: Optimal <100 Near Optimal 100-129 Borderline 130-159 High 160-189 Very High >=190 [id number] 02:20:00 Test Item Value Reference Range Interpretation Comments RPR SCREEN (DAO) (test code = Nonreactive Nonreactive 420) POCT-GLUCOSE [id number] 01:15:00 Test Item Value Reference Range Interpretation Comments POC-GLUCOSE METER 297 mg/dL 70-110 H TESTED AT [facility] 6720 (DAO) (test code = TUTU Reese [facility] 1538) [id number] POCT-GLUCOSE [id number] 22:01:00 Test Item Value Reference Range Interpretation Comments POC-GLUCOSE METER 354 mg/dL 70-110 H Notified R Becca SHOEMAKER/TESTED (DAO) (test code = AT [facility] 67[address] [facility] 1538) [facility] 7703 0 MR, BRAIN, WITHOUT [id number] 20:46:00Reason for exam:->Ischemic Stroke EvaluationFINAL REPORT MRI brain without contrast INDICATION: Right sided weakness, worsening balance, slurred speech. 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 Mild nonspecific cerebral white matter changes suggest chronic microvascular ischemia. No hematoma, extra axial collection, hydrocephalus, or mass effect is evident. A few dilated perivascular spaces are noted. There is poor flow in the distal right cervical and proximal intradural vertebral artery. There has been bilateral cataract surgery. There is ethmoid and maxillary sinus mucosal disease with bilateral maxillary sinus fluid levels. There is trace left mastoid air cell fluid. The sella and cranial cervical junction are unremarkable. There is incidental frontal calvarial hyperostosis. IMPRESSION: 1. Acute nonhemorrhagic left pontine infarct. 2. Poor flow in the right vertebral artery. See concurrent MRA for additional details. 3. Mild chronic white matter changes, likely of microvascular etiology. 4. Findings which may reflect acute on chronic sinusitis. 5. Additional chronic findings as discussed above. Findings discussed with Dr. Padilla (neurology) at 8:45 PM Signed: Charanjit Ibarra Verified Date/Time: 01/31/2017 20:46:20 Reading Location: [facility] Reading Room MR, MRA, BRAIN, WITHOUT [id number] 20:36:00Reason for exam:->Ischemic Stroke EvaluationFINAL REPORT MRA head and neck without contrast INDICATION: Stroke TECHNIQUE:2-D and 3-D [id number] MRA images of the intra- and extracranial carotid and vertebral artery circulations were obtained, from which maximal intensity projection reconstructions were generated. COMPARISON: None available FINDINGS: MRA neck:Carotid bifurcation and bulb mural thickening suggests atherosclerosis. No measurable cervical ICA stenosis is seen by NASCET criteria. Mid to distal cervical ICA and left distal vertebral artery beaded irregularity suggests fibromuscular dysplasia. There is loss of the right vertebral artery flow void suggesting occlusion. There is antegrade flow in the leftvertebral artery, without flow limitation. The proximal left vertebral artery is not imaged. MRA [place]:There is right intradural vertebral artery occlusion with reconstitution near the vertebrobasilar confluence. Mild to moderate left vertebrobasilar confluence, moderate mid basilar arteryand severe right and moderate left proximal [employer] stenoses are present. There are suspected severe left supraclinoid ICA stenosis with signal loss. There are mild stenoses of the left proximal MCA and TRUDY origins. No other flow limiting proximal [place] vessels stenosis is seen. Motion artifacts limit accurate assessment for aneurysms. IMPRESSION: 1. Absent right cervical and proximal intradural vertebral artery flow suspicious for occlusion. This may be due to dissection versus vasculopathicstenosis. 2. Bilateral mid to distal cervical ICA and distal left vertebral artery contour abnormalities suggestive of fibromuscular dysplasia. 3. Multifocal intracranial vasculopathic changes with stenoses as discussed, including severe left supraclinoid ICA and proximal right [employer]ICE [employer]ERK stenoses. 4. No hemodynamically significant cervical carotid artery stenosis by NASCET criteria. Signed: Charanjit Ibarra MDReport Verified Date/Time: 01/31/2017 20:36:02 Reading Location: [facility] Reading Room MR, MRA, NECK, WITHOUT IV [id number] 20:36:00Reason for exam:->Ischemic Stroke EvaluationFINAL REPORT MRA head and neck without contrast INDICATION: Stroke TECHNIQUE:2-D and 3-D [id number] MRA images of the intra- and extracranial carotid and vertebral artery circulations were obtained, from which maximal intensity projection reconstructions were generated. COMPARISON: None available FINDINGS: MRA neck:Carotid bifurcation and bulb mural thickening suggests atherosclerosis. No measurable cervical ICA stenosis is seen by NASCET criteria. Mid to distal cervical ICA and left distal vertebral artery beaded irregularity suggests fibromuscular dysplasia. There is loss of the right vertebral artery flow void suggesting occlusion. There is antegrade flow in the leftvertebral artery, without flow limitation. The proximal left vertebral artery is not imaged. MRA [place]:There is right intradural vertebral artery occlusion with reconstitution near the verte brobasilar confluence. Mild to moderate left vertebrobasilar confluence, moderate mid basilar arteryand severe right and moderate left proximal [employer]ERK stenoses are present. There are suspected severe left supraclinoid ICA stenosis with signal loss. There are mild stenoses of the left proximal MCA and TRUDY origins. No other flow limiting proximal [place] vessels stenosis is seen. Motion artifacts limit accurate assessment for aneurysms. IMPRESSION: 1. Absent right cervical and proximal intradural vertebral artery flow suspicious for occlusion. This may be due to dissection versus vasculopathicstenosis. 2. Bilateral mid to distal cervical ICA and distal left vertebral artery contour abnormalities suggestive of fibromuscular dysplasia. 3. Multifocal intracranial vasculopathic changes with stenoses as discussed, including severe left supraclinoid ICA and proximal right [employer]ICE [employer]ERK stenoses. 4. No hemodynamically significant cervical carotid artery stenosis by NASCET criteria. Signed: Charanjit Ibarra MDReport Verified Date/Time: 01/31/2017 20:36:02 Reading Location: [facility] Reading Room VITAMIN B12 AND [id number] 13:11:00 Test Item Value Reference Range Interpretation Comments VITAMIN B12 (BEAKER) (test code = 551 pg/mL 213-816 774) FOLATE (BEAKER) (test code = 362) 15.7 ng/mL >=7.0 [id number] 10:22:00 Test Item Value Reference Range Interpretation Comments HOMOCYSTEINE (BEAKER) (test code = 7.0 umol/L 5.1-15.4 642) POCT-GLUCOSE [id number] 08:22:00 Test Item Value Reference Range Interpretation Comments POC-GLUCOSE METER 200 mg/dL 70-110 H TESTED AT [facility] 6720 (BEAKER) (test code = TUTU ZENG [place] 1538) [address] T4, [id number] 07:04:00 Test Item Value Reference Range Interpretation Comments FREE T4 (BEAKER) (test code = 655) 1.28 ng/dL 0.70-1.48 TSH/FREE T4 IF [id number] 06:34:00 Test Item Value Reference Range Interpretation Comments THYROID STIMULATING HORMONE 0.22 uIU/mL 0.35-4.94 L (BEAKER) (test code = 772) BASIC METABOLIC [id number] 05:53:00 Test Item Value Reference Range Interpretation Comments SODIUM (BEAKER) 144 meq/L 136-145 (test code = 381) POTASSIUM (BEAKER) 3.6 meq/L 3.5-5.1 (test code = 379) CHLORIDE (BEAKER) 108 meq/L 98-107 H (test code = 382) CO2 (BEAKER) (test 24 meq/L 22-29 code = 355) BLOOD UREA NITROGEN 12 mg/dL 7-21 (BEAKER) (test code = 354) CREATININE (BEAKER) 0.76 mg/dL 0.57-1.25 (test code = 358) GLUCOSE RANDOM 128 mg/dL 70-105 H (BEAKER) (test code = 652) CALCIUM (BEAKER) 9.2 mg/dL 8.4-10.2 (test code = 697) EGFR (BEAKER) (test 74 mL/min/1.73 ESTIMA TONI GFR IS code = 1092) sq m NOT ACCURATE CREATININE CLEARANCE IN PREDICTING GLOMERULAR FILTRATION RATE . ESTIMATED GFR I S NOT APPLICABLE FOR DIALYSIS PATIEN TS. CBC W/PLT COUNT & AUTO [id number] 05:31:00 Test Item Value Reference Range Interpretation Comments WHITE BLOOD CELL COUNT (BEAKER) 11.0 K/ L 3.5-10.5 H (test code = 775) RED BLOOD CELL COUNT (BEAKER) 4.53 M/ L 3.93-5.22 (test code = 761) HEMOGLOBIN (BEAKER) (test code = 13.4 GM/DL 11.2-15.7 410) HEMATOCRIT (BEAKER) (test code = 41.5 % 34.1-44.9 411) MEAN CORPUSCULAR VOLUME (BEAKER) 91.6 fL 79.4-94.8 (test code = 753) MEAN CORPUSCULAR HEMOGLOBIN 29.6 pg 25.6-32.2 (BEAKER) (test code = 751) MEAN CORPUSCULAR HEMOGLOBIN CONC 32.3 GM/DL 32.2-35.5 (BEAKER) (test code = 752) RED CELL DISTRIBUTION WIDTH 11.8 % 11.7-14.4 (BEAKER) (test code = 412) PLATELET COUNT (BEAKER) (test 312 K/CU MM 150-450 code = 756) MEAN PLATELET VOLUME (BEAKER) 9.5 fL 9.4-12.3 (test code = 754) NUCLEATED RED BLOOD CELLS 0 /100 WBC 0-0 (BEAKER) (test code = 413) NEUTROPHILS RELATIVE PERCENT 70 % (BEAKER) (test code = 429) LYMPHOCYTES RELATIVE PERCENT 20 % (BEAKER) (test code = 430) MONOCYTES RELATIVE PERCENT 8 % (BEAKER) (test code = 431) EOSINOPHILS RELATIVE PERCENT 2 % (BEAKER) (test code = 432) BASOPHILS RELATIVE PERCENT 0 % (BEAKER) (test code = 437) NEUTROPHILS ABSOLUTE COUNT 7.66 K/ L 1.56-6.13 H (BEAKER) (test code = 670) LYMPHOCYTES ABSOLUTE COUNT 2.16 K/ L 1.18-3.74 (BEAKER) (test code = 414) MONOCYTES ABSOLUTE COUNT (BEAKER) 0.85 K/ L 0.24-0.36 H (test code = 415) EOSINOPHILS ABSOLUTE COUNT 0.24 K/ L 0.04-0.36 (BEAKER) (test code = 416) BASOPHILS ABSOLUTE COUNT (BEAKER) 0.03 K/ L 0.01-0.08 (test code = 417) IMMATURE GRANULOCYTES-RELATIVE 0 % 0-1 PERCENT (BEAKER) (test code = 2801)
--- NOTE | 2020-03-02 16:21 | RAD REPORT ---
EXAM DESCRIPTION: RAD - Foot Right 3 View - 03/02/2020 3:57 pm CLINICAL HISTORY: Pain;Swelling COMPARISON: Foot Right 3 View dated 08/27/2019; Foot Right 2 View dated 06/13/2017 FINDINGS: Advanced osteopenia is seen. Impacted fractures are seen involving the second through fift h metatarsal necks. Moderate soft tissue swelling is seen along the dorsum of the foot.
--- NOTE | 2020-03-02 16:21 | RAD REPORT ---
EXAM DESCRIPTION: RAD - Ankle Right 3 View - 03/02/2020 3:57 pm CLINICAL HISTORY: SWELLING Trauma, pain and swelling COMPARISON: No comparisons FINDINGS: Significant soft tissue swelling is seen along the lateral malleolus. No ankle fracture ev ident. Again seen are fractures of the second through fifth metatarsal necks. Large calcaneal spurs.
--- NOTE | 2020-03-02 16:46 | EDPHYS ---
Physician Documentation [facility] Name: Rebecca Hazel Age: 79 yrs Sex: Female : 1940 Arrival Date: 03/02/2020 Time: 11:59 Bed 3 Private MD: ED Physician Aayush Hinds HPI: 03/02 15:30 This 79 yrs old Female presents to ER via EMS with complaints of Foot Pain. cp 15:30 The patient presents with an injury, pain, that is acute. The complaints affect the cp right foot. 15:30 Patient reports pain and swelling to right foot since stumbling and almost falling cp after right knee gave out yesterday. Patient reports she was getting into truck. Historical: - Allergies: 12:21 No Known Allergies; ll1 - PMHx: 12:21 Diabetes - IDDM; Hypertension; Hypothyroidism; stroke with right sided weakness; TIA; ll1 - PSHx: 12:21 Hysterectomy; skin graft R foot; ll1 - Immunization history:: Flu vaccine is not up to date. - Social history:: Smoking status: Patient denies any tobacco usage or history of. ROS: 15:35 MS/extremity: Positive for injury or acute deformity, ecchymosis, swelling, tenderness, cp of the right foot. 15:35 Constitutional: Negative for fever. cp 15:35 All other systems are negative. cp Exam: 15:40 Constitutional: The patient appears in no acute distress, alert, awake, non-toxic, well cp developed, well nourished, obese. 15:40 Head/Face: Normocephalic, atraumatic. cp 15:40 Chest/axilla: Inspection: normal. 15:40 Cardiovascular: Rate: bradycardic. 15:40 Respiratory: the patient does not display signs of respiratory distress, Respirations: normal, no use of accessory muscles. 15:40 Musculoskeletal/extremity: Extremities: grossly normal except: noted in the right foot: ecchymosis, pain, swelling, tenderness, Perfusion: the extremity is dusky, Sensation intact. 15:40 Skin: superficial wounds noted to plantar surface of foot with drainage. Vital Signs: 12:21 BP 169 / 79; Pulse 55; Resp 18; Temp 97.8; Pulse Ox 97% ; Weight 108.86 kg; Height 5 ll1 ft. 6 in. (167.64 cm); Pain 8/10; 17:28 BP 157 / 86; Pulse 58; Resp 18; Temp 97.2; Pulse Ox 98% on R/A; ph 12:21 Body Mass Index 38.74 (108.86 kg, 167.64 cm) ll1 Procedures: 17:25 Splinting: Splint applied to right foot using Orthoglass splint, posterior short leg. cp applied by tech. Examined by me, post splint application: neurovascular intact, Patient tolerated well. MDM: 15:17 Patient medically screened. cp 16:45 Data reviewed: vital signs, nurses notes, radiologic studies, plain films. cp 16:45 Differential diagnosis: dislocation, open fracture, closed fracture. Test cp interpretation: by ED physician or midlevel provider: plain radiologic studies. Counseling: I had a detailed discussion with the patient and/or guardian regarding: the historical points, exam findings, and any diagnostic results supporting the discharge/admit diagnosis, radiology results, the need for outpatient follow up, a orthopedic surgeon, to return to the emergency department if symptoms worsen or persist or if there are any questions or concerns that arise at home. Response to treatment: the patient's symptoms have markedly improved after treatment, and as a result, I will discharge patient. 03/02 15:20 Order name: XRAY Foot RIGHT 3 View; Complete Time: 16:35 cp 03/02 15:20 Order name: XRAY Ankle RIGHT 3 view; Complete Time: 16:35 cp 03/02 16:37 Order name: Wound Care; Complete Time: 17:26 cp 03/02 16:37 Order name: Splint - Posterior Leg; Complete Time: 17:26 cp Administered Medications: 17:15 Drug: Hydrocodone-Acetaminophen (7.5 mg-325 mg) 1 tabs Route: PO; ph 17:28 Follow up: Response: No adverse reaction ph 17:15 Drug: Doxycycline 100 mg Route: PO; ph 17:28 Follow up: Response: No adverse reaction ph Disposition: 17:30 Chart complete. cp 03/03 07:30 Co-signature as Attending Physician, Aayush Hinds MD I agree with the assessment and tw4 plan of care. Disposition: 03/02/20 16:46 Discharged to Home. Impression: Fracture of metatarsal bone(s) - Right foot 2nd thru 5th. - Condition is Stable. - Discharge Instructions: Metatarsal Fracture. - Prescriptions for Doxycycline Hyclate 100 mg Oral Tablet - take 1 tablet by ORAL route every 12 hours; 20 tablet. Tylenol- Codeine #3 300-30 mg Oral Tablet - take 2 tablets by ORAL route every 8 hours As needed; 20 tablet. - Medication Reconciliation Form, Thank You Letter, Antibiotic Education, Prescription Opioid Use form. - Follow up: Erwin Wiggins MD; When: 2 - 3 days; Reason: Recheck today's complaints. - Problem is new. - Symptoms have improved. Signatures: Dispatcher [employer] EDMS Deysi Mcmahon RN RN ph Scottie Rees PA PA Aayush Thompson MD MD tw4 Mathew Krishnan RN RN ll1 Corrections: (The following items were deleted from the chart) 03/02 17:29 16:46 03/02/2020 16:46 Discharged to Home. Impression: Fracture of metatarsal bone(s) - ph Right foot 2nd thru 5th. Condition is Stable. Forms are Medication Reconciliation Form, Thank You Letter, Antibiotic Education, Prescription Opioid Use. Follow up: Erwin Wiggins; When: 2 - 3 days; Reason: Recheck today's complaints. Problem is new. Symptoms have improved. cp 03/03 14:46 03/02 15:35 All other systems are negative, cp cp
--- NOTE | 2020-03-02 16:46 | ER ---
Nurse's Notes [facility] Name: Rebecca Hazel Age: 79 yrs Sex: Female : 1940 Arrival Date: 03/02/2020 Time: 11:59 Bed 3 Private MD: Diagnosis: Fracture of metatarsal bone(s)-Right foot 2nd thru 5th Presentation: 03/02 12:21 Chief complaint: Patient states: Fell while trying to get up into the truck yesterday ll1 at noon. States her R knee gave out, happens often since the stroke. caught her before she fell all the way to the ground. R foot pain since incident. Blister to R big toe popped. Small scabs noted to 3rd and 4th digits. Small abrasion L foot also. Coronavirus screen: Client denies travel out of the [place] in the last 14 days. At this time, the client does not indicate any symptoms associated with coronavirus-19. Ebola Screen: Patient denies travel to an Ebola-affected area in the 21 days before illness onset. Initial Sepsis Screen: Does the patient meet any 2 criteria? No. Patient's initial sepsis screen is negative. Does the patient have a suspected source of infection? Yes: Skin breakdown/wound Bone or joint infection. Risk Assessment: Do you want to hurt yourself or someone else? Patient reports no desire to harm self or others. Onset of symptoms was March 01, 2020. 12:21 Method Of Arrival: EMS: [facility] ll1 12:21 Acuity: DENNIS 3 ll1 Triage Assessment: 12:24 General: Appears in no apparent distress. Behavior is calm, cooperative, appropriate ll1 for age. Pain: Complains of pain in R foot Quality of pain is described as aching. Musculoskeletal: Circulation, motion, and sensation intact. Capillary refill < 3 seconds, 4x4 used to cover opened blister area. guzman wrap used to wrap R foot loosely. PMS intact. Reports pain in R foot. Historical: - Allergies: 12:21 No Known Allergies; ll1 - PMHx: 12:21 Diabetes - IDDM; Hypertension; Hypothyroidism; stroke with right sided weakness; TIA; ll1 - PSHx: 12:21 Hysterectomy; skin graft R foot; ll1 - Immunization history:: Flu vaccine is not up to date. - Social history:: Smoking status: Patient denies any tobacco usage or history of. Screenin:29 Abuse screen: Denies threats or abuse. Denies injuries from another. Nutritional ph screening: No deficits noted. Tuberculosis screening: No symptoms or risk factors identified. Fall Risk None identified. Assessment: 15:28 Reassessment: Xray at bedside. General: Appears in no apparent distress. comfortable, ph obese, Behavior is calm, cooperative, appropriate for age. Pain: Complains of pain in right foot. Neuro: Level of Consciousness is awake, alert, obeys commands, Oriented to person, place, time, situation. Cardiovascular: Capillary refill < 3 seconds in bilateral fingers Patient's skin is warm and dry. Respiratory: Airway is patent Respiratory effort is even, unlabored. Derm: Skin is healthy with good turgor, Skin is pink, warm \T\ dry. Musculoskeletal: Circulation, motion, and sensation intact. Range of motion: intact in all extremities, Swelling present in right foot. Vital Signs: 12:21 BP 169 / 79; Pulse 55; Resp 18; Temp 97.8; Pulse Ox 97% ; Weight 108.86 kg; Height 5 ll1 ft. 6 in. (167.64 cm); Pain 8/10; 17:28 BP 157 / 86; Pulse 58; Resp 18; Temp 97.2; Pulse Ox 98% on R/A; ph 12:21 Body Mass Index 38.74 (108.86 kg, 167.64 cm) ll1 ED Course: 11:59 Patient arrived in ED. ds1 12:20 Arm band placed on. ll1 12:24 Triage completed. ll1 15:15 Scottie Rees PA is PHCP. cp 15:15 Aayush Hinds MD is Attending Physician. cp 15:28 Deysi Mcmahon, RN is Primary Nurse. ph 15:29 Patient has correct armband on for positive identification. Call light in reach. Side ph rails up X 1. Door closed. Noise minimized. pt requested to stay in wheelchair. 15:57 XRAY Foot RIGHT 3 View In Process Unspecified. EDMS 15:57 XRAY Ankle RIGHT 3 view In Process Unspecified. EDMS 16:44 Erwin Wiggins MD is Referral Physician. cp 17:26 No provider procedures requiring assistance completed. Patient did not have IV access ph during this emergency room visit. Wound care: to blister located on medial aspect of right toes was cleaned with Hibiclens, dressed with Neosporin, band aid. Wound care: to abrasion, located on medial aspect of left toes was cleaned with Hibiclens, dressed with Neosporin, band aid. 17:27 Orthoglass splint: Posterior short lleg splint applied on right leg. ph Administered Medications: 17:15 Drug: Hydrocodone-Acetaminophen (7.5 mg-325 mg) 1 tabs Route: PO; ph 17:28 Follow up: Response: No adverse reaction ph 17:15 Drug: Doxycycline 100 mg Route: PO; ph 17:28 Follow up: Response: No adverse reaction ph Outcome: 16:46 Discharge ordered by MD. cp 17:28 Discharged to home via wheelchair, with family. ph 17:28 Condition: good 17:28 Discharge instructions given to patient, Instructed on discharge instructions, follow up and referral plans. medication usage, Demonstrated understanding of instructions, follow-up care, medications, Prescriptions given X 2. 17:29 Patient left the ED. ph Signatures: Dispatcher [employer] [facility] Aylin Storm ds1 Deysi Mcmahon, RN RN ph Scottie Rees PA PA cp Lewis, Lynsay, RN RN ll1
[2020-03-02] MEDS ORDERED: HYDROCODONE/APAP 7.5/325 MG TAB ONE (17:13)
[2020-03-02] MEDS ORDERED: DOXYCYCLINE 100 MG CAP PO ONE (17:13)
[2020-03-02 17:42] VITALS: BP 157/86; TEMP 97.2; O2SAT 98
== END 2020-03-02 17:29 | disposition home or self-care (01) ==
LOC: ER 11:45
PROC: 2W3QX1Z Immobilization of Right Lower Leg using Splint (ICD-10-PCS; principal; 2020-03-02)
DX: S92.321A Displaced fracture of second metatarsal bone, right foot, initial encounter for closed fracture (principal); S92.331A Displaced fracture of third metatarsal bone, right foot, initial encounter for closed fracture; S92.341A Displaced fracture of fourth metatarsal bone, right foot, initial encounter for closed fracture; S92.351A Displaced fracture of fifth metatarsal bone, right foot, initial encounter for closed fracture; W17.89XA Other fall from one level to another, initial encounter; Y93.89 Activity, other specified; Y92.9 Unspecified place or not applicable; I10 Essential (primary) hypertension
CPT/HCPCS: 99284

== ENCOUNTER 2022-03-16 16:45 | Emergency (ER) | payer OTHER ==
--- OUTSIDE RECORDS SUMMARY | 2022-03-16 16:49 | XMS REPORT | Continuity of Care Document ---
:1940 Author Organization [facility] t Address [address] [place] [address] Care Team Providers Name Role Phone SARIAH HART Primary Care Physician Unavailable Jacqui Pate Attending Clinician Unavailable KACIE FISCHER Attending Clinician Unavailable EM ALEX Attending Clinician Unavailable KACIE FISCHER Admitting Clinician Unavailable EM ALEX Admitting Clinician Unavailable Payers Payer Name Policy Type Policy Number Effective Date Expiration Date S santiago [employer] [facility]/[facility]IC[facility] [id number] 2016 COMPLETE 00:00:00 [facility] 53 [id number] 2021 [facility] ADVANTAGE 00:00:00 [facility] MEDICARE 53 [id number] 2020 [facility] ADVANTAGE 00:00:00 [facility] Problems Condition Condition Condition Status Onset Resolution Last Treating Co mments Source Name Details Category Date Date Treatment Clinician Date Symptomati Symptomati Disease Active C [facility] c c 08-08 [facility] bradycardi bradycardi 00:00: Me dical a a 00 Center 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C HI St al al 02-12 [facility] arterioscl arterioscl 00:00: Me dical erosis erosis 00 [place] Diabetes Diabetes Disease Active [facility]12 [facility] type 2, type 2, 00:00: Medical insulin insulin 00 Center dependent dependent Accelerate Accelerate Disease Active C HI [facility] d d 02-12 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 re-entry re-entry 00:00: Medica l tachycardi tachycardi 00 nter a) a) Stroke Stroke Disease Active 2016-[address] (cerebrum) (cerebrum) 04-03 [facility] 00:00: Medical 00 Center Essential Essential Problem Com mon hypertensi hypertensi Sp chino on on - [facility] Dyslipidem Dyslipidem Problem C ommon ia ia Spirit - [facility] Postoperat Hypothyroi Problem C ommon zena dism Spirit Hypothyroi associated - [facility]I dism with surgical 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 (current) Spirit use of use of - [facility] insulin insulin [facility] Diabetic Diabetes Problem Commo n neuropathy mellitus Spir it with - CHI diabetic neuropathy [facility] [id number] Chronic Problem Commo n kidney Spirit disease, - [facility] stage 4 (severe) [facility] [id number] Melba Problem Common tropicalis Spirit infection - [facility] [id number] 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Spirit [place] - [facility] arteries [facility] extremitie Medica l s with Center intermitte nt claudicati on, left leg [id number] 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 chronic Medical kidney Center disease [id number] Chronic Problem 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 - [facility] failure, unspecifie 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, right eye Allergies, Adverse Reactions, Alerts Allergy Allergy Status Severity Reaction(s) Onset Inactive Treating Comm ents Source Name Type Date Date Clinician NO KNOWN Allergy Active [facility] Family History Family Member Diagnosis Comments Start Date Stop Date Source Natural father Diabetes [facility] Natural mother Hypertension [facility] Social History Social Habit Start Date Stop Date Quantity Comments Source History of [facility] - Tobacco Use [facility] Alcohol intake 2020-08-09 2020-08-09 Current [facility] 00:00:00 00:00:00 non-drinker of Medical Ce nter alcohol (finding) Tobacco use and 2017-01-31 2017-01-31 Never used [facility] exposure 00:00:00 00:00:00 [facility] Sex Assigned At [birth year] [facility] 00:00:00 00:00:00 [facility] Smoking Status Start Date Stop Date Source Never Smoker Common [facility] - [facility] Medications Ordered Filled Start Stop Current Ordering Indication Dosage Frequency Signature Comments Components Source Medication Medication Date Date Medication? Clinician (SIG) Name Name Levothyroxi Levothyroxi No QD Levothyrox ne Sodium ne Sodium 1-03 ine Sodium 88 MCG 88 MCG 00:00: 88 MCG 00 Benzonatate Benzonatate 1{capsu TID Benzonatat 100 MG 100 MG 10-26 le_as_n e 100 MG 00:00: 00:00 eeded} 00 :00 Levothyroxi Levothyroxi 2020-02 No QD Levothyrox ne Sodium ne Sodium 0-27 ine Sodium 175 MCG 175 MCG 00:00: 175 MCG 00 Levothyroxi Levothyroxi 2020-02 No QD Levothyrox ne Sodium ne Sodium 0-27 ine Sodium 175 MCG 175 MCG 00:00: 175 MCG 00 Levothyroxi Levothyroxi 2020-02 No QD Levothyrox ne Sodium ne Sodium 0-27 ine Sodium 175 MCG 175 MCG 00:00: 175 MCG 00 Levothyroxi Levothyroxi 2020-02 No QD Levothyrox ne Sodium ne Sodium 0-27 ine Sodium 175 MCG 175 MCG 00:00: 175 MCG 00 Levothyroxi Levothyroxi 2020-02 No QD Levothyrox ne Sodium ne Sodium 0-27 ine Sodium 175 MCG 175 MCG 00:00: 175 MCG 00 Levothyroxi Levothyroxi 2020-02 No QD Levothyrox ne Sodium ne Sodium 0-27 ine Sodium 175 MCG 175 MCG 00:00: 175 MCG 00 Levothyroxi Levothyroxi 2020-02 No QD Levothyrox ne Sodium ne Sodium 0-27 ine Sodium 150 MCG 150 MCG 00:00: 150 MCG 00 Levothyroxi Levothyroxi 2020-02 No QD Levothyrox ne Sodium ne Sodium 0-27 ine Sodium 150 MCG 150 MCG 00:00: 150 MCG 00 Levothyroxi Levothyroxi 2020-02 No QD Levothyrox ne Sodium ne Sodium 0-27 ine Sodium 150 MCG 150 MCG 00:00: 150 MCG 00 Levothyroxi Levothyroxi 2020-02 No QD Levothyrox ne Sodium ne Sodium 0-27 ine Sodium 150 MCG 150 MCG 00:00: 150 MCG 00 Levothyroxi Levothyroxi 2020-02 No QD Levothyrox ne Sodium ne Sodium 0-27 ine Sodium 150 MCG 150 MCG 00:00: 150 MCG 00 Levothyroxi Levothyroxi 2020-02 No QD Levothyrox ne Sodium ne Sodium 0-27 ine Sodium 150 MCG 150 MCG 00:00: 150 MCG 00 Levothyroxi Levothyroxi 2020-02 No QD Levothyrox ne Sodium ne Sodium 0-27 ine Sodium 150 MCG 150 MCG 00:00: 150 MCG 00 Levothyroxi Levothyroxi 2020-02 No QD Levothyrox ne Sodium ne Sodium 0-27 ine Sodium 150 MCG 150 MCG 00:00: 150 MCG 00 Levothyroxi Levothyroxi 2020-02 No QD Levothyrox ne Sodium ne Sodium 0-27 ine Sodium 150 MCG 150 MCG 00:00: 150 MCG 00 Levothyroxi Levothyroxi 2020-02 No QD Levothyrox ne Sodium ne Sodium 0-27 ine Sodium 175 MCG 175 MCG 00:00: 175 MCG 00 aspirin 81 Yes 81mg QD Take [address] MG EC 6-29 [facility] tablet 23:38: daily. Medical 15 [place] metoprolol Yes 25mg QD Take [address] (TOPROL-XL) 6-29 by mouth Luke s 25 MG 24 hr 23:38: daily. Medi dragan tablet 15 Center insulin Yes Inject [facility] 70/30, 6-29 subcutaneo [facility] insulin 23:38: usly 2 Medical NPH-insulin 15 (two) Center regular, times (HumuLIN daily 70/30) 100 before unit/mL meals. (70-30) injection cloNIDine Yes .1mg [id number] Take 0.[address] HCL 6-29 [id number] mg by [facility] (CATAPRES) 23:38: 3D mouth 3 Medi dragan 0.1 MG 15 (three) Center tablet times daily. apixaban Yes 5mg Q.5D Take [address] (ELIQUIS) 5 6-29 by mouth 2 [facility] mg Tab 23:38: (two) Medical tablet 15 times Center daily. levothyroxi Yes 175ug Take [address] ne 6-29 mcg by [facility] (SYNTHROID, 23:38: mouth Medic al LEVOTHROID) 15 Every Center 175 MCG morning on tablet an empty stomach. DULoxetine Yes 20mg QD Take [address] (CYMBALTA) 6-29 by mouth [facility] 20 MG 23:38: daily. Medical capsule 15 [place] furosemide Yes 80mg QD Take [address] (LASIX) 80 6-29 by mouth [facility] MG tablet 23:38: daily. Medica l 15 Center metoprolol Yes 12.5mg Take 12.[address] tartrate 6-29 mg by [facility] (LOPRESSOR 23:38: mouth. Medic al ORAL) 15 [place] atorvastati Yes 80mg QD Take [address] n (LIPITOR) 6-29 by mouth Luke s 80 MG 23:38: daily. Medical tablet 15 Center famotidine Yes 20mg QD Take [address] (PEPCID) 20 6-29 by mouth Luke s MG tablet 23:38: daily. Medica l 15 Center GABAPENTIN 2020-0 Yes 200mg QD Take [address] ORAL 6-29 mg by [facility] 23:38: mouth Medical 15 daily. [place] BD Insulin BD Insulin 2020-0 No TID BD Insulin Syr Syr 9-15 Syr Ultrafine Ultrafine 00:00: Ultrafine II 31G X II 31G X 00 II 31G X 5/16" 0.5 5/16" 0.5 5/16" 0.5 ML ML ML BD Insulin BD Insulin 2020-0 No TID BD Insulin Syr Syr 9-15 Syr Ultrafine Ultrafine 00:00: Ultrafine II 31G X II 31G X 00 II 31G X 5/16" 0.5 5/16" 0.5 5/16" 0.5 ML ML ML BD Insulin BD Insulin 2020-0 No TID BD Insulin Syr Syr 9-15 Syr Ultrafine Ultrafine 00:00: Ultrafine II 31G X II 31G X 00 II 31G X 5/16" 0.5 5/16" 0.5 5/16" 0.5 ML ML ML BD Insulin BD Insulin 2020-0 No TID BD Insulin Syr Syr 9-15 Syr Ultrafine Ultrafine 00:00: Ultrafine II 31G X II 31G X 00 II 31G X 5/16" 0.5 5/16" 0.5 5/16" 0.5 ML ML ML BD Insulin BD Insulin 2020-0 No TID BD Insulin Syr Syr 9-15 Syr Ultrafine Ultrafine 00:00: Ultrafine II 31G X II 31G X 00 II 31G X 5/16" 0.5 5/16" 0.5 5/16" 0.5 ML ML ML BD Insulin BD Insulin 2020-0 No TID BD Insulin Syr Syr 9-15 Syr Ultrafine Ultrafine 00:00: Ultrafine II 31G X II 31G X 00 II 31G X 5/16" 0.5 5/16" 0.5 5/16" 0.5 ML ML ML BD Insulin BD Insulin 2020-0 No TID BD Insulin Syr Syr 9-15 Syr Ultrafine Ultrafine 00:00: Ultrafine II 31G X II 31G X 00 II 31G X 5/16" 0.5 5/16" 0.5 5/16" 0.5 ML ML ML BD Insulin BD Insulin 2020-0 No TID BD Insulin Syr Syr 9-15 Syr Ultrafine Ultrafine 00:00: Ultrafine II 31G X II 31G X 00 II 31G X 5/16" 0.5 5/16" 0.5 5/16" 0.5 ML ML ML BD Insulin BD Insulin 2020-0 No TID BD Insulin Syr Syr 9-15 Syr Ultrafine Ultrafine 00:00: Ultrafine II 31G X II 31G X 00 II 31G X 5/16" 0.5 5/16" 0.5 5/16" 0.5 ML ML ML BD Insulin BD Insulin 2020-0 No TID BD Insulin Syr Syr 9-15 Syr Ultrafine Ultrafine 00:00: Ultrafine II 31G X II 31G X 00 II 31G X 5/16" 0.5 5/16" 0.5 5/16" 0.5 ML ML ML BD Insulin BD Insulin 2020-0 No TID BD Insulin Syr Syr 9-15 Syr Ultrafine Ultrafine 00:00: Ultrafine II 31G X II 31G X 00 II 31G X 5/16" 0.5 5/16" 0.5 5/16" 0.5 ML ML ML BD Insulin BD Insulin 2020-0 No TID BD Insulin Syr Syr 9-15 Syr Ultrafine Ultrafine 00:00: Ultrafine II 31G X II 31G X 00 II 31G X 5/16" 0.5 5/16" 0.5 5/16" 0.5 ML ML ML BD Insulin BD Insulin 2020-0 No TID BD Insulin Syr Syr 9-15 Syr Ultrafine Ultrafine 00:00: Ultrafine II 31G X II 31G X 00 II 31G X 5/16" 0.5 5/16" 0.5 5/16" 0.5 ML ML ML BD Insulin BD Insulin 2020-0 No TID BD Insulin Syr Syr 9-15 Syr Ultrafine Ultrafine 00:00: Ultrafine II 31G X II 31G X 00 II 31G X 5/16" 0.5 5/16" 0.5 5/16" 0.5 ML ML ML BD Insulin BD Insulin 2020-0 No TID BD Insulin Syr Syr 9-15 Syr Ultrafine Ultrafine 00:00: Ultrafine II 31G X II 31G X 00 II 31G X 5/16" 0.5 5/16" 0.5 5/16" 0.5 ML ML ML BD Insulin BD Insulin 2020-0 No TID BD Insulin Syr Syr 9-15 Syr Ultrafine Ultrafine 00:00: Ultrafine II 31G X II 31G X 00 II 31G X 5/16" 0.5 /16" 0.5 /16" 0.5 ML ML ML insulin 2018-0 Yes 25u QAM [facility] detemir 1-02 and 15u [facility] (LEVEMIR) 00:00: QHS. Medical 100 unit/mL 00 Center (3 mL) InPn injection Vitamin D3 Vitamin D3 No 1{table QD Vitamin D3 25 MCG 25 MCG t} 25 MCG (1000 UT) (1000 UT) (1000 UT) DULoxetine DULoxetine No 1{capsu QD DULoxetine HCl 20 MG HCl 20 MG le} HCl 20 MG HumuLIN HumuLIN No HumuLIN 70/30 70/30 70/30 (70-30) 100 (70-30) 100 (70-30) UNIT/ML UNIT/ML 100 UNIT/ML Famotidine Famotidine No 1{table QD Famotidine 20 MG 20 MG t_at_be 20 MG dtime_a s_neede d} Eliquis 5 Eliquis 5 No Eliquis 5 MG MG MG Losartan Losartan No Losartan Potassium Potassium Potassium 50 MG 50 MG 50 MG cloNIDine cloNIDine No 1{table TID cloNIDine HCl 0.1 MG HCl 0.1 MG t} HCl 0.1 MG Furosemide Furosemide No 2{table QD Furosemide 80 MG 80 MG t} 80 MG Gabapentin Gabapentin No 1{capsu QD Gabapentin 100 MG 100 MG le} 100 MG HumuLIN HumuLIN No HumuLIN 70/30 70/30 70/30 (70-30) 100 (70-30) 100 (70-30) UNIT/ML UNIT/ML 100 UNIT/ML Furosemide Furosemide No 2{table QD Furosemide 80 MG 80 MG t} 80 MG Losartan Losartan No Losartan Potassium Potassium Potassium 50 MG 50 MG 50 MG Vitamin D3 Vitamin D3 No 1{table QD Vitamin D3 25 MCG 25 MCG t} 25 MCG (1000 UT) (1000 UT) (1000 UT) Famotidine Famotidine No Famotidine 20 MG 20 MG 20 MG cloNIDine cloNIDine No 1{table TID cloNIDine HCl 0.1 MG HCl 0.1 MG t} HCl 0.1 MG Gabapentin Gabapentin No 1{capsu QD Gabapentin 100 MG 100 MG le} 100 MG DULoxetine DULoxetine No 1{capsu QD DULoxetine HCl 20 MG HCl 20 MG le} HCl 20 MG Metoprolol Metoprolol No Metoprolol Succinate Succinate Succinate ER 25 MG ER 25 MG ER 25 MG Eliquis 5 Eliquis 5 No Eliquis 5 MG MG MG Eliquis 5 Eliquis 5 No Eliquis 5 MG MG MG HumuLIN HumuLIN No HumuLIN 70/30 70/30 70/30 (70-30) 100 (70-30) 100 (70-30) UNIT/ML UNIT/ML 100 UNIT/ML Famotidine Famotidine No Famotidine 20 MG 20 MG 20 MG Gabapentin Gabapentin No 1{capsu QD Gabapentin 100 MG 100 MG le} 100 MG Furosemide Furosemide No 2{table QD Furosemide 80 MG 80 MG t} 80 MG Losartan Losartan No Losartan Potassium Potassium Potassium 50 MG 50 MG 50 MG DULoxetine DULoxetine No 1{capsu QD DULoxetine HCl 20 MG HCl 20 MG le} HCl 20 MG Metoprolol Metoprolol No Metoprolol Succinate Succinate Succinate ER 25 MG ER 25 MG ER 25 MG Vitamin D3 Vitamin D3 No 1{table QD Vitamin D3 25 MCG 25 MCG t} 25 MCG (1000 UT) (1000 UT) (1000 UT) cloNIDine cloNIDine No 1{table cloNIDine HCl 0.1 MG HCl 0.1 MG t} HCl 0.1 MG Eliquis 5 Eliquis 5 No Eliquis 5 MG MG MG DULoxetine DULoxetine No 1{capsu QD DULoxetine HCl 20 MG HCl 20 MG le} HCl 20 MG Vitamin D3 Vitamin D3 No 1{table QD Vitamin D3 25 MCG 25 MCG t} 25 MCG (1000 UT) (1000 UT) (1000 UT) Gabapentin Gabapentin No 1{capsu QD Gabapentin 100 MG 100 MG le} 100 MG HumuLIN HumuLIN No HumuLIN 70/30 70/30 70/30 (70-30) 100 (70-30) 100 (70-30) UNIT/ML UNIT/ML 100 UNIT/ML Losartan Losartan No Losartan Potassium Potassium Potassium 50 MG 50 MG 50 MG Metoprolol Metoprolol No Metoprolol Succinate Succinate Succinate ER 25 MG ER 25 MG ER 25 MG cloNIDine cloNIDine No 1{table cloNIDine HCl 0.1 MG HCl 0.1 MG t} HCl 0.1 MG Famotidine Famotidine No Famotidine 20 MG 20 MG 20 MG Atorvastati Atorvastati No 1{table QD Atorvastat n Calcium n Calcium t} in Calcium 80 MG 80 MG 80 MG Furosemide Furosemide No 2{table QD Furosemide 80 MG 80 MG t} 80 MG Eliquis 5 Eliquis 5 No Eliquis 5 MG MG MG DULoxetine DULoxetine No 1{capsu QD DULoxetine HCl 20 MG HCl 20 MG le} HCl 20 MG Vitamin D3 Vitamin D3 No 1{table QD Vitamin D3 25 MCG 25 MCG t} 25 MCG (1000 UT) (1000 UT) (1000 UT) Gabapentin Gabapentin No 1{capsu QD Gabapentin 100 MG 100 MG le} 100 MG HumuLIN HumuLIN No HumuLIN 70/30 70/30 70/30 (70-30) 100 (70-30) 100 (70-30) UNIT/ML UNIT/ML 100 UNIT/ML Losartan Losartan No Losartan Potassium Potassium Potassium 50 MG 50 MG 50 MG Metoprolol Metoprolol No Metoprolol Succinate Succinate Succinate ER 25 MG ER 25 MG ER 25 MG cloNIDine cloNIDine No 1{table cloNIDine HCl 0.1 MG HCl 0.1 MG t} HCl 0.1 MG Famotidine Famotidine No Famotidine 20 MG 20 MG 20 MG Atorvastati Atorvastati No 1{table QD Atorvastat n Calcium n Calcium t} in Calcium 80 MG 80 MG 80 MG Furosemide Furosemide No 2{table QD Furosemide 80 MG 80 MG t} 80 MG Gabapentin Gabapentin No 1{capsu QD Gabapentin 100 MG 100 MG le} 100 MG Eliquis 5 Eliquis 5 No Eliquis 5 MG MG MG DULoxetine DULoxetine No 1{capsu QD DULoxetine HCl 20 MG HCl 20 MG le} HCl 20 MG Atorvastati Atorvastati No 1{table QD Atorvastat n Calcium n Calcium t} in Calcium 80 MG 80 MG 80 MG cloNIDine cloNIDine No 1{table cloNIDine HCl 0.1 MG HCl 0.1 MG t} HCl 0.1 MG Losartan Losartan No Losartan Potassium Potassium Potassium 50 MG 50 MG 50 MG Famotidine Famotidine No Famotidine 20 MG 20 MG 20 MG HumuLIN HumuLIN No HumuLIN 70/30 70/30 70/30 (70-30) 100 (70-30) 100 (70-30) UNIT/ML UNIT/ML 100 UNIT/ML Furosemide Furosemide No 2{table QD Furosemide 80 MG 80 MG t} 80 MG Vitamin D3 Vitamin D3 No 1{table QD Vitamin D3 25 MCG 25 MCG t} 25 MCG (1000 UT) (1000 UT) (1000 UT) Metoprolol Metoprolol No Metoprolol Succinate Succinate Succinate ER 25 MG ER 25 MG ER 25 MG Metoprolol Metoprolol No Metoprolol Succinate Succinate Succinate ER 25 MG ER 25 MG ER 25 MG Vitamin D3 Vitamin D3 No 1{table QD Vitamin D3 25 MCG 25 MCG t} 25 MCG (1000 UT) (1000 UT) (1000 UT) cloNIDine cloNIDine No 1{table cloNIDine HCl 0.1 MG HCl 0.1 MG t} HCl 0.1 MG Famotidine Famotidine No Famotidine 20 MG 20 MG 20 MG Furosemide Furosemide No 2{table QD Furosemide 80 MG 80 MG t} 80 MG Losartan Losartan No Losartan Potassium Potassium Potassium 50 MG 50 MG 50 MG DULoxetine DULoxetine No 1{capsu QD DULoxetine HCl 20 MG HCl 20 MG le} HCl 20 MG HumuLIN HumuLIN No HumuLIN 70/30 70/30 70/30 (70-30) 100 (70-30) 100 (70-30) UNIT/ML UNIT/ML 100 UNIT/ML Eliquis 5 Eliquis 5 No Eliquis 5 MG MG MG Gabapentin Gabapentin No Gabapentin 100 MG 100 MG 100 MG Atorvastati Atorvastati No 1{table QD Atorvastat n Calcium n Calcium t} in Calcium 80 MG 80 MG 80 MG Vitamin D3 Vitamin D3 No 1{table QD Vitamin D3 25 MCG 25 MCG t} 25 MCG (1000 UT) (1000 UT) (1000 UT) Metoprolol Metoprolol No Metoprolol Succinate Succinate Succinate ER 25 MG ER 25 MG ER 25 MG Eliquis 5 Eliquis 5 No Eliquis 5 MG MG MG Losartan Losartan No Losartan Potassium Potassium Potassium 50 MG 50 MG 50 MG Atorvastati Atorvastati No 1{table QD Atorvastat n Calcium n Calcium t} in Calcium 80 MG 80 MG 80 MG cloNIDine cloNIDine No 1{table cloNIDine HCl 0.1 MG HCl 0.1 MG t} HCl 0.1 MG Famotidine Famotidine No Famotidine 20 MG 20 MG 20 MG Gabapentin Gabapentin No Gabapentin 100 MG 100 MG 100 MG HumuLIN HumuLIN No HumuLIN 70/30 70/30 70/30 (70-30) 100 (70-30) 100 (70-30) UNIT/ML UNIT/ML 100 UNIT/ML Furosemide Furosemide No 2{table QD Furosemide 80 MG 80 MG t} 80 MG DULoxetine DULoxetine No 1{capsu QD DULoxetine HCl 20 MG HCl 20 MG le} HCl 20 MG Atorvastati Atorvastati No Atorvastat n Calcium n Calcium in Calcium 80 MG 80 MG 80 MG Eliquis 5 Eliquis 5 No Eliquis 5 MG MG MG Gabapentin Gabapentin No Gabapentin 100 MG 100 MG 100 MG HumuLIN HumuLIN No HumuLIN 70/30 70/30 70/30 (70-30) 100 (70-30) 100 (70-30) UNIT/ML UNIT/ML 100 UNIT/ML Metoprolol Metoprolol No Metoprolol Succinate Succinate Succinate ER 25 MG ER 25 MG ER 25 MG DULoxetine DULoxetine No DULoxetine HCl 20 MG HCl 20 MG HCl 20 MG Vitamin D3 Vitamin D3 No 1{table QD Vitamin D3 25 MCG 25 MCG t} 25 MCG (1000 UT) (1000 UT) (1000 UT) Furosemide Furosemide No 2{table QD Furosemide 80 MG 80 MG t} 80 MG cloNIDine cloNIDine No 1{table cloNIDine HCl 0.1 MG HCl 0.1 MG t} HCl 0.1 MG Famotidine Famotidine No Famotidine 20 MG 20 MG 20 MG Losartan Losartan No Losartan Potassium Potassium Potassium 50 MG 50 MG 50 MG Gabapentin Gabapentin No QD Gabapentin 100 MG 100 MG 100 MG Atorvastati Atorvastati No Atorvastat n Calcium n Calcium in Calcium 80 MG 80 MG 80 MG Vitamin D3 Vitamin D3 No 1{table QD Vitamin D3 25 MCG 25 MCG t} 25 MCG (1000 UT) (1000 UT) (1000 UT) Losartan Losartan No QD Losartan Potassium Potassium Potassium 25 MG 25 MG 25 MG Eliquis 5 Eliquis 5 No Eliquis 5 MG MG MG Famotidine Famotidine No Famotidine 20 MG 20 MG 20 MG Furosemide Furosemide No 2{table QD Furosemide 80 MG 80 MG t} 80 MG Metoprolol Metoprolol No QD Metoprolol Succinate Succinate Succinate ER 25 MG ER 25 MG ER 25 MG DULoxetine DULoxetine No DULoxetine HCl 20 MG HCl 20 MG HCl 20 MG HumuLIN HumuLIN No HumuLIN 70/30 70/30 70/30 (70-30) 100 (70-30) 100 (70-30) UNIT/ML UNIT/ML 100 UNIT/ML cloNIDine cloNIDine No 1{table cloNIDine HCl 0.1 MG HCl 0.1 MG t} HCl 0.1 MG Furosemide Furosemide No 2{table QD Furosemide 80 MG 80 MG t} 80 MG Losartan Losartan No QD Losartan Potassium Potassium Potassium 25 MG 25 MG 25 MG Atorvastati Atorvastati No Atorvastat n Calcium n Calcium in Calcium 80 MG 80 MG 80 MG Vitamin D3 Vitamin D3 No 1{table QD Vitamin D3 25 MCG 25 MCG t} 25 MCG (1000 UT) (1000 UT) (1000 UT) Famotidine Famotidine No Famotidine 20 MG 20 MG 20 MG cloNIDine cloNIDine No 1{table cloNIDine HCl 0.1 MG HCl 0.1 MG t} HCl 0.1 MG DULoxetine DULoxetine No DULoxetine HCl 20 MG HCl 20 MG HCl 20 MG Gabapentin Gabapentin No QD Gabapentin 100 MG 100 MG 100 MG HumuLIN HumuLIN No HumuLIN 70/30 70/30 70/30 (70-30) 100 (70-30) 100 (70-30) UNIT/ML UNIT/ML 100 UNIT/ML Metoprolol Metoprolol No QD Metoprolol Succinate Succinate Succinate ER 25 MG ER 25 MG ER 25 MG Eliquis 5 Eliquis 5 No Eliquis 5 MG MG MG Furosemide Furosemide No 2{table QD Furosemide 80 MG 80 MG t} 80 MG Losartan Losartan No QD Losartan Potassium Potassium Potassium 25 MG 25 MG 25 MG Atorvastati Atorvastati No Atorvastat n Calcium n Calcium in Calcium 80 MG 80 MG 80 MG Vitamin D3 Vitamin D3 No 1{table QD Vitamin D3 25 MCG 25 MCG t} 25 MCG (1000 UT) (1000 UT) (1000 UT) Famotidine Famotidine No Famotidine 20 MG 20 MG 20 MG cloNIDine cloNIDine No 1{table cloNIDine HCl 0.1 MG HCl 0.1 MG t} HCl 0.1 MG Eliquis 5 Eliquis 5 No Eliquis 5 MG MG MG Gabapentin Gabapentin No QD Gabapentin 100 MG 100 MG 100 MG DULoxetine DULoxetine No DULoxetine HCl 20 MG HCl 20 MG HCl 20 MG HumuLIN HumuLIN No HumuLIN 70/30 70/30 70/30 (70-30) 100 (70-30) 100 (70-30) UNIT/ML UNIT/ML 100 UNIT/ML Metoprolol Metoprolol No QD Metoprolol Succinate Succinate Succinate ER 25 MG ER 25 MG ER 25 MG Losartan Losartan No QD Losartan Potassium Potassium Potassium 25 MG 25 MG 25 MG DULoxetine DULoxetine No DULoxetine HCl 20 MG HCl 20 MG HCl 20 MG Famotidine Famotidine No Famotidine 20 MG 20 MG 20 MG Gabapentin Gabapentin No QD Gabapentin 100 MG 100 MG 100 MG Furosemide Furosemide No 2{table QD Furosemide 80 MG 80 MG t} 80 MG Atorvastati Atorvastati No Atorvastat n Calcium n Calcium in Calcium 80 MG 80 MG 80 MG Metoprolol Metoprolol No QD Metoprolol Succinate Succinate Succinate ER 25 MG ER 25 MG ER 25 MG Vitamin D3 Vitamin D3 No 1{table QD Vitamin D3 25 MCG 25 MCG t} 25 MCG (1000 UT) (1000 UT) (1000 UT) cloNIDine cloNIDine No 1{table cloNIDine HCl 0.1 MG HCl 0.1 MG t} HCl 0.1 MG HumuLIN HumuLIN No HumuLIN 70/30 70/30 70/30 (70-30) 100 (70-30) 100 (70-30) UNIT/ML UNIT/ML 100 UNIT/ML Eliquis 5 Eliquis 5 No Eliquis 5 MG MG MG Losartan Losartan No QD Losartan Potassium Potassium Potassium 25 MG 25 MG 25 MG HumuLIN HumuLIN No HumuLIN 70/30 70/30 70/30 (70-30) 100 (70-30) 100 (70-30) UNIT/ML UNIT/ML 100 UNIT/ML Eliquis 5 Eliquis 5 No Eliquis 5 MG MG MG DULoxetine DULoxetine No DULoxetine HCl 20 MG HCl 20 MG HCl 20 MG Famotidine Famotidine No Famotidine 20 MG 20 MG 20 MG cloNIDine cloNIDine No cloNIDine HCl 0.1 MG HCl 0.1 MG HCl 0.1 MG Furosemide Furosemide No 2{table QD Furosemide 80 MG 80 MG t} 80 MG Metoprolol Metoprolol No Metoprolol Succinate Succinate Succinate ER 25 MG ER 25 MG ER 25 MG Gabapentin Gabapentin No Gabapentin 100 MG 100 MG 100 MG Vitamin D3 Vitamin D3 No 1{table QD Vitamin D3 25 MCG 25 MCG t} 25 MCG (1000 UT) (1000 UT) (1000 UT) Atorvastati Atorvastati No Atorvastat n Calcium n Calcium in Calcium 80 MG 80 MG 80 MG Furosemide Furosemide No 2{table QD Furosemide 80 MG 80 MG t} 80 MG Losartan Losartan No QD Losartan Potassium Potassium Potassium 25 MG 25 MG 25 MG Atorvastati Atorvastati No Atorvastat n Calcium n Calcium in Calcium 80 MG 80 MG 80 MG Vitamin D3 Vitamin D3 No 1{table QD Vitamin D3 25 MCG 25 MCG t} 25 MCG (1000 UT) (1000 UT) (1000 UT) Famotidine Famotidine No Famotidine 20 MG 20 MG 20 MG cloNIDine cloNIDine No 1{table cloNIDine HCl 0.1 MG HCl 0.1 MG t} HCl 0.1 MG Eliquis 5 Eliquis 5 No Eliquis 5 MG MG MG Gabapentin Gabapentin No QD Gabapentin 100 MG 100 MG 100 MG DULoxetine DULoxetine No DULoxetine HCl 20 MG HCl 20 MG HCl 20 MG HumuLIN HumuLIN No HumuLIN 70/30 70/30 70/30 (70-30) 100 (70-30) 100 (70-30) UNIT/ML UNIT/ML 100 UNIT/ML Metoprolol Metoprolol No QD Metoprolol Succinate Succinate Succinate ER 25 MG ER 25 MG ER 25 MG Vitamin D3 Vitamin D3 No 1{table QD Vitamin D3 25 MCG 25 MCG t} 25 MCG (1000 UT) (1000 UT) (1000 UT) DULoxetine DULoxetine No 1{capsu QD DULoxetine HCl 20 MG HCl 20 MG le} HCl 20 MG HumuLIN HumuLIN No HumuLIN 70/30 70/30 70/30 (70-30) 100 (70-30) 100 (70-30) UNIT/ML UNIT/ML 100 UNIT/ML Famotidine Famotidine No 1{table QD Famotidine 20 MG 20 MG t_at_be 20 MG dtime_a s_neede d} Eliquis 5 Eliquis 5 No Eliquis 5 MG MG MG Losartan Losartan No Losartan Potassium Potassium Potassium 50 MG 50 MG 50 MG cloNIDine cloNIDine No 1{table TID cloNIDine HCl 0.1 MG HCl 0.1 MG t} HCl 0.1 MG Furosemide Furosemide No 2{table QD Furosemide 80 MG 80 MG t} 80 MG Gabapentin Gabapentin No 1{capsu QD Gabapentin 100 MG 100 MG le} 100 MG Immunizations Ordered Immunization Filled Immunization Date Status Commen ts Source Name Name FLUZONE HIGH DOSE FLUZONE HIGH DOSE 2021-03-07 [facility]pleted [facility] OVER 65 OVER 65 10:58:00 [facility] FLUZONE HIGH DOSE FLUZONE HIGH DOSE 2021-03-07 Completed [facility] OVER 65 OVER 65 10:58:00 [facility] FLUZONE HIGH DOSE FLUZONE HIGH DOSE 2021-03-07 Completed [facility] OVER 65 OVER 65 10:58:00 - [facility] FLUZONE HIGH DOSE FLUZONE HIGH DOSE 2021-03-07 Completed [facility] OVER 65 OVER 65 10:58:00 - [facility] FLUZONE HIGH DOSE FLUZONE HIGH DOSE 2021-03-07 Completed [facility] OVER 65 OVER 65 10:58:00 - [facility] FLUZONE HIGH DOSE FLUZONE HIGH DOSE 2021-03-07 Completed [facility] OVER 65 OVER 65 10:58:00 - [facility] FLUZONE HIGH DOSE FLUZONE HIGH DOSE 2021-03-07 Completed [facility] OVER 65 OVER 65 10:58:00 - [facility] FLUZONE HIGH DOSE FLUZONE HIGH DOSE 2021-03-07 Completed [facility] OVER 65 OVER 65 10:58:00 - [facility] FLUZONE HIGH DOSE FLUZONE HIGH DOSE 2021-03-07 Completed [facility] OVER 65 OVER 65 10:58:00 - [facility] FLUZONE HIGH DOSE FLUZONE HIGH DOSE 2021-03-07 Completed [facility] OVER 65 OVER 65 10:58:00 - [facility] FLUZONE HIGH DOSE FLUZONE HIGH DOSE 2021-03-07 Completed [facility] OVER 65 OVER 65 10:58:00 - [facility] FLUZONE HIGH DOSE FLUZONE HIGH DOSE 2021-03-07 Completed [facility] OVER 65 OVER 65 10:58:00 [facility] FLUZONE HIGH DOSE FLUZONE HIGH DOSE 2021-03-07 Completed [facility] OVER 65 OVER 65 10:58:00 - [facility] FLUZONE HIGH DOSE FLUZONE HIGH DOSE 2021-03-07 Completed [facility] OVER 65 OVER 65 10:58:00 [facility] FLUZONE HIGH DOSE FLUZONE HIGH DOSE 2021-03-07 Completed [facility] OVER 65 OVER 65 10:58:00 [facility] FLUZONE HIGH DOSE FLUZONE HIGH DOSE 2021-03-07 [facility]pleted [facility] OVER 65 OVER 65 10:58:00 [facility] COVID-19 Vaccine COVID-19 Vaccine 2020-04-14 [facility] (Dmitry) 13:50:00 - [facility] COVID-19 Vaccine COVID-19 Vaccine 2020-04-14 [facility]pleted [facility] ([facility] (Dmitry) 13:50:00 - [facility] COVID-19 Vaccine COVID-19 Vaccine 2020-04-14 Completed [facility] ([facility] (Dmitry) 13:50:00 - [facility] COVID-19 Vaccine COVID-19 Vaccine 2020-04-14 Com[facility] (Dmitry) 13:50:00 - [facility] COVID-19 Vaccine COVID-19 Vaccine 2020-04-14 Com[facility] (Dmitry) 13:50:00 - [facility] COVID-19 Vaccine COVID-19 Vaccine 2020-04-14 Completed [facility] ([facility] (Dmitry) 13:50:00 - [facility] COVID-19 Vaccine COVID-19 Vaccine 2020-04-14 Completed [facility] (Dmitry) 13:50:00 - [facility] COVID-19 Vaccine COVID-19 Vaccine 2020-04-14 Com[facility] ([facility] (Dmitry) 13:50:00 [facility] COVID-19 Vaccine COVID-19 Vaccine 2020-04-14 Completed [facility] ([facility]ry[facility] (Dmitry) 13:50:00 [facility] COVID-19 Vaccine COVID-19 Vaccine 2020-04-14 Completed [facility] ([facility] (Dmitry) 13:50:00 - [facility] COVID-19 Vaccine COVID-19 Vaccine 2020-04-14 Completed [facility] ([facility]ry[facility] (Dmitry) 13:50:00 [facility] COVID-19 Vaccine COVID-19 Vaccine 2020-04-14 Completed [facility] ([facility] (Dmitry) 13:50:00 [facility] COVID-19 Vaccine COVID-19 Vaccine 2020-04-14 Completed [facility] ([facility] (Dmitry) 13:50:00 - [facility] COVID-19 Vaccine COVID-19 Vaccine 2020-04-14 Completed [facility] ([employer]) 13:50:00 - [facility] COVID-19 Vaccine COVID-19 Vaccine 2020-04-14 Completed [facility] ([employer]) 13:50:00 - [facility] COVID-19 Vaccine COVID-19 Vaccine 2020-04-14 Completed [facility] ([employer]) 13:50:00 - [facility] Influenza Three-TIV 2017-01-31 Completed [facility] PF 5+ YR 00:00:00 [facility] Vital Signs Vital Name Observation Time Observation Value Comments Source HEIGHT 2020-08-08 13:02:00 165.1 cm WEIGHT 2020-08-08 13:02:00 104.327 kg height 2022-01-01 13:20:00 64 [in_i] [facility] weight 2022-01-01 13:20:00 230 [lb_av] [facility] temperature 2022-01-01 13:20:00 97.4 [degF] [facility] bmi 2022-01-01 13:20:00 39.48 kg/m2 [facility] oximetry 2022-01-01 13:20:00 98 % [facility] respiratory rate 2022-01-01 13:20:00 17 /min Comm on [facility] blood pressure 2022-01-01 13:20:00 132 mm[Hg] Common [facility] - systolic [facility] blood pressure 2022-01-01 13:20:00 80 mm[Hg] Common [facility] - diastolic [facility] height 2021-10-02 14:20:00 64 [in_i] [facility] weight 2021-10-02 14:20:00 230 [lb_av] [facility] temperature 2021-10-02 14:20:00 97.9 [degF] [facility] bmi 2021-10-02 14:20:00 39.48 kg/m2 [facility] oximetry 2021-10-02 14:20:00 97 % [facility] respiratory rate 2021-10-02 14:20:00 18 /min Comm on [facility] blood pressure 2021-10-02 14:20:00 138 mm[Hg] Common [facility] - systolic [facility] blood pressure 2021-10-02 14:20:00 86 mm[Hg] Common [facility] - diastolic [facility] height 2021-07-19 13:40:00 64 [in_i] [facility] weight 2021-07-19 13:40:00 230 [lb_av] Common [facility] temperature 2021-07-19 13:40:00 97.9 [degF] [facility] bmi 2021-07-19 13:40:00 39.48 kg/m2 [facility] oximetry 2021-07-19 13:40:00 97 % [facility] respiratory rate 2021-07-19 13:40:00 16 /min Comm on [facility] blood pressure 2021-07-19 13:40:00 161 mm[Hg] Common [facility] systolic [facility] blood pressure 2021-07-19 13:40:00 90 mm[Hg] Common [facility] - diastolic [facility] height 2021-06-05 13:20:00 64 [in_i] [facility] weight 2021-06-05 13:20:00 230 [lb_av] Common [facility] temperature 2021-06-05 13:20:00 97.6 [degF] [facility] bmi 2021-06-05 13:20:00 39.48 kg/m2 [facility] oximetry 2021-06-05 13:20:00 96 % [facility] respiratory rate 2021-06-05 13:20:00 18 /min Comm on [facility] blood pressure 2021-06-05 13:20:00 142 mm[Hg] [facility] - [facility] blood pressure 2021-06-05 13:20:00 70 mm[Hg] Common [facility] - diastolic [facility] height 2021-04-27 10:40:00 64 [in_i] [facility] weight 2021-04-27 10:40:00 230 [lb_av] [facility] temperature 2021-04-27 10:40:00 97.7 [degF] [facility] bmi 2021-04-27 10:40:00 39.48 kg/m2 [facility] oximetry 2021-04-27 10:40:00 95 % [facility] respiratory rate 2021-04-27 10:40:00 18 /min Comm on [facility] blood pressure 2021-04-27 10:40:00 134 mm[Hg] [facility] - systolic [facility] blood pressure 2021-04-27 10:40:00 60 mm[Hg] [facility] - diastolic [facility] blood pressure 2021-03-07 09:40:00 132 mm[Hg] [facility] - systolic [facility] blood pressure 2021-03-07 09:40:00 80 mm[Hg] [facility] - diastolic [facility] height 2021-03-07 09:40:00 64 [in_i] [facility] weight 2021-03-07 09:40:00 230 [lb_av] [facility] temperature 2021-03-07 09:40:00 98.1 [degF] [facility] bmi 2021-03-07 09:40:00 39.48 kg/m2 [facility] oximetry 2021-03-07 09:40:00 98 % [facility] respiratory rate 2021-03-07 09:40:00 16 /min [facility] - [facility] height 2021-03-07 10:20:00 64 [in_i] [facility] weight 2021-03-07 10:20:00 230 [lb_av] [facility] temperature 2021-03-07 10:20:00 98.1 [degF] [facility] bmi 2021-03-07 10:20:00 39.48 kg/m2 [facility] oximetry 2021-03-07 10:20:00 98 % [facility] blood pressure 2021-03-07 10:20:00 132 mm[Hg] Common [facility] systolic [facility] blood pressure 2021-03-07 10:20:00 80 mm[Hg] Common [facility] diastolic [facility] HEIGHT 2020-08-08 13:02:00 165.1 cm WEIGHT 2020-08-08 13:02:00 104.327 kg Procedures This patient has no known procedures. Plan of Care Planned Activity Planned Date Details Comments Source Future Scheduled 2022-02-[address] [facility] Test 00:00:00 (12+) [code = Medical Center DEPRESSION SCREENING (12+)] Future Scheduled 2022-02-10 FALLS RISK SCREENING [facility] Test 00:00:00 [code = FALLS RISK Medical C enter SCREENING] Future Scheduled 2021-10-11 INFLUENZA VACCINE (#1) [facility] 00:00:00 [code = INFLUENZA Medical Ce nter VACCINE (#1)] Future Scheduled 2017-08-[address] [facility] 00:[facility]00 measurement Medical Center (procedure) [code = 23907791] Future Scheduled 2017-02-[address] [facility] 00:00:00 WELLNESS (YEAR 2 or Medical Center FIRST YEAR if no IPPE) [code = MEDICARE ANNUAL WELLNESS (YEAR 2 or FIRST YEAR if no IPPE)] Future Scheduled 1991-08-13 SHINGLES VACCINES ([address] [facility] Test 00:00:00 of 2) [code = SHINGLES Medic al Center VACCINES (1 of 2)] Future Scheduled 1960 DTAP/TDAP/TD VACCINES [facility] 00:00:00 (1 - Tdap) [code = Medical C enter DTAP/TDAP/TD VACCINES (1 - Tdap)] Future Scheduled [address] [facility] Test 00:00:00 Counseling and Medical Cente r Screening (12+) [code = Tobacco Cessation Counseling and Screening (12+)] Future Scheduled 1951-08-[address] DIABETIC EYE EXAM [facility] Test 00:00:00 [code = DIABETIC EYE Medical Center EXAM] Future Scheduled 1951-08-[address] [facility] 00:[facility]:00 examination Medical Center (regime/therapy) [code = 242629410] Future Scheduled 1951-08-13 Urine screening for [facility] Test 00:00:00 protein (procedure) Medical Center [code = 667370457] Future Scheduled 1947-08-13 PNEUMOCOCCAL 65+ YRS [facility] Test 00:00:00 (1 - PCV) [code = Medical Ce nter PNEUMOCOCCAL 65+ YRS (1 - PCV)] Future Scheduled 1942-02-12 COVID-19 VACCINE (#1) [facility] 00:00:00 [code = COVID-[address] VACCINE (#1)] Future Scheduled 1940 DXA SCAN [code = DXA [facility] Test 00:00:00 SCAN] [facility] Encounters Start End Encounter Admission Attending Care Care Encounter Source Date/Time Date/Time Type Type Clinicians Facility Department ID 2022-03-04 Outpatient [place], STLMLC STLMLC [id number] Common 14:03:03 Jacqui [address] [facility] 2022-02-27 Outpatient [place], STLMLC STLMLC [id number] Common 09:36:03 Jacqui [facility] 2022-02-12 Outpatient [place], STLMLC STLMLC [id number] Common 10:34:01 Jacqui [facility] 2021-09-28 Outpatient [place], STLMLC STLMLC [id number] Common 11:23:02 Jacqui [facility] 2021-08-28 Outpatient [place], STLMLC STLMLC [id number] Common 10:04:02 Jacqui [facility] 2021-07-17 Outpatient [place], STLMLC STLMLC [id number] Common 11:12:01 Jacqui [facility] 2021-06-06 Outpatient [place], STLMLC STLMLC [id number] Common 07:42:01 Jacqui [facility] 2021-04-25 Outpatient [place], STLMLC STLMLC [id number] Common 09:14:02 Jacqui [facility] 2021-03-14 Outpatient [place], STLMLC STLMLC [id number] Common 13:05:01 Jacqui [facility] 2021-03-07 Outpatient [place], STLMLC STLMLC [id number] Common 14:40:28 Jacqui [facility] 2020-11-19 Outpatient KACIE FISCHER [facility] Surgery [id number] [facility] 02:33:02 2022-01-08 2022-01-08 (TEL) STLMLC STLMLC [id number] [facility] 00:00:00 00:00:00 [facility] 2022-01-01 2022-01-01 OFFICE STLMLC STLMLC [id number] [facility] 00:00:00 00:00:00 VISIT [facility] 4 [facility] 2021-11-20 2021-11-20 (TEL) STLMLC STLMLC [id number] [facility] 00:00:00 00:00:00 [facility] 2021-10-26 2021-10-26 (TEL) STLMLC STLMLC [id number] [facility] 00:00:00 00:00:00 [facility] 2021-10-02 2021-10-02 OFFICE STLMLC STLMLC [id number] [facility] 00:00:00 00:00:00 VISIT [facility] LEVEL 4 [facility] 2021-08-17 2021-08-17 (TEL) STLMLC STLMLC [id number] [facility] 00:00:00 00:00:00 [facility] - [facility] 2021-07-19 2021-07-19 OFFICE STLMLC STLMLC [id number] [facility] 00:00:00 00:00:00 [facility]IT [facility] ESTAB PT - [facility] LEVEL 4 [facility] 2021-07-17 2021-07-17 (TEL) STLMLC STLMLC [id number] [facility] 00:00:00 00:00:00 [facility] 2021-06-05 2021-06-05 OFFICE STLMLC STLMLC [id number] [facility] 00:00:00 00:00:00 [facility]IT [facility] ESTAB PT - [facility] LEVEL 4 [facility] 2021-05-08 2021-05-08 (TEL) STLMLC STLMLC [id number] [facility] 00:00:00 00:00:00 [facility] - [facility] 2021-04-27 2021-04-27 OFFICE STLMLC STLMLC [id number] Co mmon 00:00:00 00:00:00 VISIT EST Spir it PT LEVEL 3 - [facility] 2021-04-19 2021-04-19 (TEL) STLMLC STLMLC [id number] [facility]mon 00:00:00 00:00:00 [facility] - [facility] 2021-03-07 2021-03-07 OFFICE STLMLC STLMLC [id number] [facility] 00:00:00 00:00:00 [facility]IT [facility] ESTAB PT - [facility] LEVEL 4 [facility] 2021-03-07 2021-03-07 SUB ANNUAL STLMLC STLMLC [id number] Common 00:00:00 00:00:00 MCR [facility] WELLNESS - [facility] VISIT [facility] 2020-08-08 2020-08-08 Outpatient [facility] [id number] 3 [facility] 00:00:00 23:59:00 Fatimah Results Test Description Test Time Test Comments Results Result Comments Source HEMOGLOBIN A1C 2022-01-01 00:00:00 Test Item Value Reference Range Interpretation Comme nts A1C (test code = 4548-4) 10.6 HEMOGLOBIN [id number] 00:00:00 Test Item Value Reference Range Interpretation Comments A1C (test code = 4548-4) 10.3 HEMOGLOBIN [id number] 00:00:00 Test Item Value Reference Range Interpretation Comments A1C (test code = 4548-4) 8.8 HEMOGLOBIN [id number] 00:00:00 Test Item Value Reference Range Interpretation Comments A1C (test code = 4548-4) 9.4 RAD, CHEST, 1 VIEW, NON [id number] 20:01:00Reason for exam:->s/p PPM implantShould this be performed at the bedside?->Yes [facility] [place] : 1940 Sex: FFINALREPORT AP chest dated 08/08/2020 Comment: Heart is in upper limits of normal in size. Pulmonary vasculature is unremarkable. Lungs are clear. No pulmonary infiltrate or pleural effusion. AICD is present. No pneumothorax is seen. Signed: [place] Ring MDReport Verified Date/Time: 08/08/2020 20:01:08 Reading Location: [address] Consult Reading Room BASI [employer] [id number] 19:57:00 Test Item Value Reference Range Interpretation Comments SODIUM (BEAKER) 140 meq/L 136-145 (test code = 381) POTASSIUM (BEAKER) 4.9 meq/L 3.5-5.1 (test code = 379) CHLORIDE (BEAKER) 103 meq/L 98-107 (test code = 382) CO2 (BEAKER) (test 26 meq/L code = 355) BLOOD UREA NITROGEN 78 mg/dL 7-21 H (BEAKER) (test code = 354) CREATININE (BEAKER) 2.28 mg/dL 0.57-1.25 H (test code = 358) GLUCOSE RANDOM 344 mg/dL 70-105 H (BEAKER) (test code = 652) CALCIUM (BEAKER) 8.9 mg/dL 8.4-10.2 (test code = 697) EGFR (BEAKER) (test 21 mL/min/1.73 ESTIMA TONI GFR IS code = 1092) sq m NOT ACCURATE CREATININE CLEARANCE IN PREDICTING GLOMERULAR FILTRATION RATE . ESTIMATED GFR I S NOT APPLICABLE FOR DIALYSIS PATIEN TS. Frame Assembler ID - IVANIA CCBC W/PLT COUNT & AUTO [id number] 13:56:00 Test Item Value Reference Range Interpretation Comments WHITE BLOOD CELL COUNT (BEAKER) 9.9 K/ L 3.5-10.5 (test code = 775) RED BLOOD CELL COUNT (BEAKER) 3.94 M/ L 3.93-5.22 (test code = 761) HEMOGLOBIN (BEAKER) (test code = 11.9 GM/DL 11.2-15.7 410) HEMATOCRIT (BEAKER) (test code = 37.6 % 34.1-44.9 411) MEAN CORPUSCULAR VOLUME (BEAKER) 95.4 fL 79.4-94.8 H (test code = 753) MEAN CORPUSCULAR HEMOGLOBIN 30.2 pg 25.6-32.2 (BEAKER) (test code = 751) MEAN CORPUSCULAR HEMOGLOBIN CONC 31.6 GM/DL 32.2-35.5 L (BEAKER) (test code = 752) RED CELL DISTRIBUTION WIDTH 12.9 % 11.7-14.4 (BEAKER) (test code = 412) PLATELET COUNT (BEAKER) (test 256 K/CU MM 150-450 code = 756) MEAN PLATELET VOLUME (BEAKER) 9.7 fL 9.4-12.3 (test code = 754) NUCLEATED RED BLOOD CELLS 0 /100 WBC 0-0 (BEAKER) (test code = 413) NEUTROPHILS RELATIVE PERCENT 67 % (BEAKER) (test code = 429) LYMPHOCYTES RELATIVE PERCENT 22 % (BEAKER) (test code = 430) MONOCYTES RELATIVE PERCENT 8 % (BEAKER) (test code = 431) EOSINOPHILS RELATIVE PERCENT 3 % (BEAKER) (test code = 432) BASOPHILS RELATIVE PERCENT 0 % (BEAKER) (test code = 437) NEUTROPHILS ABSOLUTE COUNT 6.60 K/ L 1.56-6.13 H (BEAKER) (test code = 670) LYMPHOCYTES ABSOLUTE COUNT 2.14 K/ L 1.18-3.74 (BEAKER) (test code = 414) MONOCYTES ABSOLUTE COUNT (BEAKER) 0.80 K/ L 0.24-0.36 H (test code = 415) EOSINOPHILS ABSOLUTE COUNT 0.29 K/ L 0.04-0.36 (BEAKER) (test code = 416) BASOPHILS ABSOLUTE COUNT (BEAKER) 0.03 K/ L 0.01-0.08 (test code = 417) IMMATURE GRANULOCYTES-RELATIVE 0 % 0-1 PERCENT (BEAKER) (test code = 2801) URINALYSIS W/ [id number] 14:41:00 Test Item Value Reference Range Interpretation Comments COLOR (BEAKER) (test Yellow code = 470) CLARITY (BEAKER) (test Clear code = 469) SPECIFIC GRAVITY UA 1.015 1.001-1.035 (BEAKER) (test code = 468) PH UA (BEAKER) (test 5.0 5.0-8.0 code = 467) PROTEIN UA (BEAKER) 100 mg/dL Negative A (test code = 464) GLUCOSE UA (BEAKER) Negative Negative (test code = 365) KETONES UA (BEAKER) Negative Negative (test code = 371) BILIRUBIN UA (BEAKER) Negative Negative (test code = 462) BLOOD UA (BEAKER) (test Negative Negative code = 461) NITRITE UA (BEAKER) Negative Negative (test code = 465) LEUKOCYTE ESTERASE UA Negative Negative (BEAKER) (test code = 466) UROBILINOGEN UA (BEAKER) 0.2 mg/dL 0.2-1.0 (test code = 463) RBC UA (BEAKER) (test 0 /HPF code = 519) WBC UA (BEAKER) (test 1 /HPF code = 520) BACTERIA (BEAKER) (test Occasional code = 517) MUCUS (BEAKER) (test Rare code = 1574) SOURCE(BEAKER) (test Urine, Straight code = 2795) Catheter POCT-GLUCOSE [id number] 11:21:00 Test Item Value Reference Range Interpretation Comments POC-GLUCOSE METER 167 mg/dL 70-110 H TESTED AT [place] [address] ([facility]) (test code = T[place]U [place] [address]) [address] POCT-GLUCOSE [id number] 08:56:00 Test Item Value Reference Range Interpretation Comments POC-GLUCOSE METER 167 mg/dL 70-110 H TESTED AT [place] [address] ([facility]) (test code = T[place] [address]) [address] POCT-GLUCOSE [id number] 22:03:00 Test Item Value Reference Range Interpretation Comments POC-GLUCOSE METER 128 mg/dL 70-110 H TESTED AT [place] [address] ([facility]) (test code = T[place]U [place] [address]) [address] POCT-GLUCOSE [id number] 17:31:00 Test Item Value Reference Range Interpretation Comments POC-GLUCOSE METER 141 mg/dL 70-110 H TESTED AT [place] [address] ([facility]) (test code = T[place]U [place] [address]) [address] POCT-GLUCOSE [id number] 11:58:00 Test Item Value Reference Range Interpretation Comments POC-GLUCOSE METER 159 mg/dL 70-110 H TESTED AT [place] [address] ([facility]) (test code = T[place] [address]) [address] POCT-GLUCOSE [id number] 07:47:00 Test Item Value Reference Range Interpretation Comments POC-GLUCOSE METER 115 mg/dL 70-110 H TESTED AT [place] [address] ([facility]) (test code = T[place]U [place] [address]) [address] POCT-GLUCOSE [id number] 21:03:00 Test Item Value Reference Range Interpretation Comments POC-GLUCOSE METER 177 mg/dL 70-110 H TESTED AT [place] [address] ([facility]) (test code = T[place]U [place] [address]) [address] POCT-GLUCOSE [id number] 16:23:00 Test Item Value Reference Range Interpretation Comments POC-GLUCOSE METER 185 mg/dL 70-110 H TESTED AT [place] [address] ([facility]) (test code = LUISALESLY Hugh [place] [address]) [address] POCT-GLUCOSE [id number] 12:04:00 Test Item Value Reference Range Interpretation Comments POC-GLUCOSE METER 208 mg/dL 70-110 H TESTED AT [place] [address] ([facility]) (test code = T[place] [address]) [address] POCT-GLUCOSE [id number] 07:51:00 Test Item Value Reference Range Interpretation Comments POC-GLUCOSE METER 127 mg/dL 70-110 H TESTED AT [place] [address] ([facility]) (test code = [place] [address]) [address] POCT-GLUCOSE [id number] 20:44:00 Test Item Value Reference Range Interpretation Comments POC-GLUCOSE METER 225 mg/dL 70-110 H TESTED AT [place] [address] ([facility]) (test code = TUTU [place] [address]) [address] POCT-GLUCOSE [id number] 17:52:00 Test Item Value Reference Range Interpretation Comments POC-GLUCOSE METER 150 mg/dL 70-110 H TESTED AT [place] [address] ([facility]) (test code = TUTU [place] [address]) [address] POCT-GLUCOSE [id number] 12:45:00 Test Item Value Reference Range Interpretation Comments POC-GLUCOSE METER 176 mg/dL 70-110 H TESTED AT [place] [address] [facility] [facility] (test code = TUTU [place] 1538) [address] POCT-GLUCOSE [id number] 07:41:00 Test Item Value Reference Range Interpretation Comments POC-GLUCOSE METER 147 mg/dL 70-110 H TESTED AT [place] [address] ([facility]) (test code = TUTU [place] 1538) [address] POCT-GLUCOSE [id number] 20:42:00 Test Item Value Reference Range Interpretation Comments POC-GLUCOSE METER 194 mg/dL 70-110 H TESTED AT [place] [address] ([facility]) (test code = TUTU [place] 1538) [address] POCT-GLUCOSE [id number] 17:33:00 Test Item Value Reference Range Interpretation Comments POC-GLUCOSE METER 174 mg/dL 70-110 H TESTED AT [place] [address] ([facility]) (test code = TUTU [place] 1538) [address] POCT-GLUCOSE [id number] 12:14:00 Test Item Value Reference Range Interpretation Comments POC-GLUCOSE METER 153 mg/dL 70-110 H TESTED AT [place] [address] ([facility]) (test code = TUTU [place] 1538) [address] POCT-GLUCOSE [id number] 07:55:00 Test Item Value Reference Range Interpretation Comments POC-GLUCOSE METER 220 mg/dL 70-110 H TEST[facility] AT [place] [address] [facility] (test code = TUTU Reese [facility] 1538) [address] POCT-GLUCOSE [id number] 20:50:00 Test Item Value Reference Range Interpretation Comments POC-GLUCOSE METER 241 mg/dL 70-110 H TESTED AT [place] [address] ([facility] (test code = TUTU Reese [facility] 1538) [address] POCT-GLUCOSE [id number] 16:54:00 Test Item Value Reference Range Interpretation Comments POC-GLUCOSE METER 218 mg/dL 70-110 H TESTED AT [place] [address] ([facility]) (test code = TUTU Reese [facility] 1538) [address] POCT-GLUCOSE [id number] 11:45:00 Test Item Value Reference Range Interpretation Comments POC-GLUCOSE METER 257 mg/dL 70-110 H TESTED AT [place] [address] ([facility]) (test code = TUTU Reese [facility] 1538) [address] POCT-GLUCOSE [id number] 07:57:00 Test Item Value Reference Range Interpretation Comments POC-GLUCOSE METER 219 mg/dL 70-110 H TESTED AT [place] [address] ([facility] (test code = TUTU Reese [facility] 1538) [address] BASIC METABOLIC [id number] 06:05:00 Test Item Value Reference Range Interpretation [...] PATIEN TS. CBC W/PLT COUNT & AUTO [id number] 05:42:00 Test Item Value Reference Range Interpretation [...] ABSOLUTE COUNT 0.63 K/ L 0.04-0.36 H ([facility]) (test code = 416) BASOPHILS ABSOLUTE COUNT ([facility]) 0.04 K/ L 0.01-0.08 (test code = 417) IMMATURE GRANULOCYTES-RELATIVE 0 % 0-1 PERCENT ([facility]) (test code = 2801) POCT-GLUCOSE [id number] 20:57:00 Test Item Value Reference Range Interpretation Comments POC-GLUCOSE METER 301 mg/dL 70-110 H Notified R Becca SHOEMAKER/TESTED ([facility]) (test code = AT [place] 281278) [facility] 7[address] 0 POCT-GLUCOSE [id number] 15:57:00 Test Item Value Reference Range Interpretation Comments POC-GLUCOSE METER 292 mg/dL 70-110 H TESTED AT [place] [address] ([facility]) (test code = LUISALESLY Reese [facility] 1538) [address] POCT-GLUCOSE [id number] 13:36:00 Test Item Value Reference Range Interpretation Comments POC-GLUCOSE METER 181 mg/dL 70-110 H TESTED AT [place] [address] ([facility]) (test code = LUISALESLY Reese [facility] 1538) 14782 POCT-GLUCOSE [id number] 07:46:00 Test Item Value Reference Range Interpretation Comments POC-GLUCOSE METER 172 mg/dL 70-110 H TESTED AT [place] [address] ([facility]) (test code = LUISALESLY Reese [facility] 1538) 14394 POCT-GLUCOSE [id number] 21:03:00 Test Item Value Reference Range Interpretation Comments POC-GLUCOSE METER 195 mg/dL 70-110 H TESTED AT [place] [address] ([facility]) (test code = LUISALESLY Reese [facility] 1538) 17321 POCT-GLUCOSE [id number] 16:41:00 Test Item Value Reference Range Interpretation Comments POC-GLUCOSE METER 198 mg/dL 70-110 H TESTED AT [place] [address] ([facility]) (test code = LUISALESLY Reese [facility] 1538) 96184 POCT-GLUCOSE [id number] 12:08:00 Test Item Value Reference Range Interpretation Comments POC-GLUCOSE METER 241 mg/dL 70-110 H TESTED AT [place] [address] ([facility]) (test code = TUTU Reese [facility] 1538) [address]69 POCT-GLUCOSE [id number] 08:27:00 Test Item Value Reference Range Interpretation Comments POC-GLUCOSE METER 300 mg/dL 70-110 H TESTED AT [facility] 6720 (BEAKER) (test code = [place] 1538) [address] BASIC METABOLIC [id number] 05:56:00 Test Item Value Reference Range Interpretation [...] NOT APPLICABLE FOR DIALYSIS PATIEN TS. PROTHROMBIN [id number] 04:54:00 Test Item Value Reference Range Interpretation Comments PROTIME (BEAKER) (test code = 14.5 seconds 11.7-14.7 759) INR (BEAKER) (test code = 370) 1.1 <=5.9 RECOMMENDED COUMADIN/WARFARIN INR THERAPY RANGESSTANDARD DOSE: 2.0 - 3.0 Includes: PROPHYLAXIS for venous thrombosis, systemic embolization; TREATMENT for venous thrombosis and/or pulmonary embolus.HIGH RISK: Target INR is 2.5-3.5 for patients with mechanical heart valves.CBC W/PLT COUNT & AUTO [id number] 04:50:00 Test Item Value Reference Range Interpretation [...] PERCENT (BEAKER) (test code = 2801) POCT-GLUCOSE [id number] 22:08:00 Test Item Value Reference Range Interpretation Comments POC-GLUCOSE METER 285 mg/dL 70-110 H TESTED AT [place] [address] ([facility] (test code = TUTU Reese [facility] 1538) 17179 POCT-GLUCOSE [id number] 16:19:00 Test Item Value Reference Range Interpretation Comments POC-GLUCOSE METER 230 mg/dL 70-110 H TESTED AT [place] [address] ([facility]) (test code = TUTU Reese [facility] 1538) [address] RAD, ANKLE, MIN 3 VIEWS, [id number] 12:27:00Reason for exam:->pain edema following fallFINAL REPORT Clinical history: pain edema following fall TECHNIQUE: 3 views of the right ankle COMPARISON: None IMPRESSION: There is soft tissue swelling over the medial malleolus.There is no evidence of fracture or dislocation. There are dorsal and plantar calcaneal spurs. Thereare vascular calcifications. Signed: Car Hong Verified Date/Time: 02/04/2017 12:27:23 Reading Location: [facility] Radiology Reading Room Electronically signed by: CAR HONG M.D.on 02/04/2017 12:27 PMPOCT- GLUCOSE [id number] 11:55:00 Test Item Value Reference Range Interpretation Comments POC-GLUCOSE METER 204 mg/dL 70-110 H TESTED AT [place] [address] ([facility]) (test code = TUTU Reese [facility] 1538) 49676 POCT-GLUCOSE [id number] 08:00:00 Test Item Value Reference Range Interpretation Comments POC-GLUCOSE METER 217 mg/dL 70-110 H TESTED AT [place] [address] ([facility] (test code = TUTU Reese [facility] 1538) [address] [id number] 07:14:00 Test Item Value Reference Range Interpretation Comments PHOSPHORUS (BEAKER) (test code = 3.8 mg/dL 2.3-4.7 604) [id number] 07:14:00 Test Item Value Reference Range Interpretation Comments MAGNESIUM (BEAKER) (test code = 1.7 mg/dL 1.6-2.6 627) BASIC METABOLIC [id number] 07:14:00 Test Item Value Reference Range Interpretation [...] mg/dL 8.4-10.2 (test code = 697) EGFR ([facility]) (test 74 mL/min/1.73 ESTIMA TONI GFR IS code = 1092) sq m NOT ACCURATE CREATININE CLEARANCE IN PREDICTING GLOMERULAR FILTRATION RATE . ESTIMATED GFR I S NOT APPLICABLE FOR DIALYSIS PATIEN TS. POCT-GLUCOSE [id number] 22:31:00 Test Item Value Reference Range Interpretation Comments POC-GLUCOSE METER 288 mg/dL 70-110 H TESTED AT [place] [address] ([facility]) (test code = [facility] 1538) [address] POCT-GLUCOSE [id number] 17:03:00 Test Item Value Reference Range Interpretation Comments POC-GLUCOSE METER 268 mg/dL 70-110 H TESTED AT [place] [address] ([facility]) (test code = [facility] 1538) [address] POCT-GLUCOSE [id number] 12:31:00 Test Item Value Reference Range Interpretation Comments POC-GLUCOSE METER 214 mg/dL 70-110 H TESTED AT [place] [address] ([facility]) (test code = [facility] 1538) [address] CT, BRAIN, WITHOUT [id number] 09:22:00FINAL REPORT CT head without contrast INDICATION: Cerebral ischemia. TECHNIQUE:Axial noncontrast CT images through the head were obtained. This exam was performed according to ourdepartmental dose optimization program which includes automated exposure control, adjustment of the mA and/or kV according to patient size and/or use of iterative reconstruction technique. 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 Other microvascular is made changes are chronic appearing. Please note that CT is [...] left pontine recent infarct. No associated hemorrhage ormass effect. Findings which may reflect acute on chronic sinusitis. Signed: Charanjit bIarra MDReport Verified Date/Time: 02/03/2017 09:22:48 Reading Location: [address] Neuro Reading Room POCT-GLUCOSE [id number] 07:19:00 Test Item Value Reference Range Interpretation Comments POC-GLUCOSE METER 218 mg/dL 70-110 H TESTED AT [facility] 6720 (BEAKER) (test code = TUTU Hugh [facility] 1538) [address] [id number] 06:12:00 Test Item Value Reference Range Interpretation Comments PHOSPHORUS (BEAKER) (test code = 3.1 mg/dL 2.3-4.7 604) [id number] 06:12:00 Test Item Value Reference Range Interpretation Comments MAGNESIUM (BEAKER) (test code = 1.6 mg/dL 1.6-2.6 627) BASIC METABOLIC [id number] 06:12:00 Test Item Value Reference Range Interpretation [...] mg/dL 8.4-10.2 (test code = 697) EGFR ([facility]) (test 72 mL/min/1.73 ESTIMA TONI GFR IS code = 1092) sq m NOT ACCURATE CREATININE CLEARANCE IN PREDICTING GLOMERULAR FILTRATION RATE . ESTIMATED GFR I S NOT APPLICABLE FOR DIALYSIS PATIEN TS. POCT-GLUCOSE [id number] 23:10:00 Test Item Value Reference Range Interpretation Comments POC-GLUCOSE METER 239 mg/dL 70-110 H TESTED AT [place] [address] ([facility]) (test code = [facility] [employer] [facility] 1538) [address] POCT-GLUCOSE [id number] 17:20:00 Test Item Value Reference Range Interpretation Comments POC-GLUCOSE METER 291 mg/dL 70-110 H TESTED AT [place] [address] ([facility]) (test code = [facility] [employer] [facility] 1538) [address] POCT-GLUCOSE [id number] 12:39:00 Test Item Value Reference Range Interpretation Comments POC-GLUCOSE METER 274 mg/dL 70-110 H TESTED AT [place] [address] ([facility]) (test code = [facility] [employer] [facility] 1538) [address]75 POCT-GLUCOSE [id number] 11:35:00 Test Item Value Reference Range Interpretation Comments POC-GLUCOSE METER 289 mg/dL 70-110 H TESTED AT [place] [address] ([facility]) (test code = [employer] [facility] 1538) [address] POCT-GLUCOSE [id number] 11:07:00 Test Item Value Reference Range Interpretation Comments POC-GLUCOSE METER 271 mg/dL 70-110 H TESTED AT [place] [address] ([facility]) (test code = [facility] [employer] [facility] 1538) [address] CT, BRAIN, WITHOUT [id number] 10:51:00FINAL REPORT CT head without contrast INDICATION: Stroke, right sided weakness,worsening balance, slurred speech TECHNIQUE: Axial noncontrast CT [...] prior MRI. Other microvascular ischemic changes are chronicappearing. No hematoma, extra axial collection, or mass [...] Since 01/31/2017, left pontine lucency corresponds to a recent infarct seen on MRI. No hematoma or mass effect. Findings which may reflect acute on chronic sinusitis. Additional chronic appearing findings as discussed above. Signed: Charanjit Ibarra MDReport Verified Date/Time: 02/02/2017 10:51:15 Reading Location: [facility] C013V Neuro Reading Room [id number] 06:07:00 Test Item Value Reference Range Interpretation Comments PHOSPHORUS (BEAKER) (test code = 3.2 mg/dL 2.3-4.7 604) [id number] 06:07:00 Test Item Value Reference Range Interpretation Comments MAGNESIUM (BEAKER) (test code = 2.4 mg/dL 1.6-2.6 627) BASIC METABOLIC [id number] 06:07:00 Test Item Value Reference Range Interpretation [...] NOT APPLICABLE FOR DIALYSIS PATIEN TS. POCT-GLUCOSE [id number] 21:34:00 Test Item Value Reference Range Interpretation Comments POC-GLUCOSE METER 331 mg/dL 70-110 H TESTED AT [facility] 6720 ([facility]) (test code = LUIASNM Hugh [place] 1538) [address] HEMOGLOBIN [id number] 14:53:00 Test Item Value Reference Range Interpretation Comments HEMOGLOBIN A1C (BEAKER) (test code = 14.8 % 4.3-6.1 H 368) POCT-GLUCOSE [id number] 11:57:00 Test Item Value Reference Range Interpretation Comments POC-GLUCOSE METER 232 mg/dL 70-110 H TESTED AT [facility] 6720 ([facility]) (test code = [facility] [place] [place] 1538) [address] [id number] 11:44:00 Test Item Value Reference Range Interpretation Comments PHOSPHORUS (BEAKER) (test code = 3.0 mg/dL 2.3-4.7 604) [id number] 11:44:00 Test Item Value Reference Range Interpretation Comments MAGNESIUM (BEAKER) (test code = 1.3 mg/dL 1.6-2.6 L 627) BASIC METABOLIC [id number] 11:44:00 Test Item Value Reference Range Interpretation [...] PATIEN TS. CBC W/PLT COUNT & AUTO [id number] 11:18:00 Test Item Value Reference Range Interpretation [...] EOSINOPHILS ABSOLUTE COUNT 0.12 K/ L 0.04-0.36 ([facility]) (test code = 416) BASOPHILS ABSOLUTE COUNT ([facility]) 0.04 K/ L 0.01-0.08 (test code = 417) IMMATURE GRANULOCYTES-RELATIVE 0 % 0-1 PERCENT ([facility]) (test code = 2801) POCT-GLUCOSE [id number] 08:37:00 Test Item Value Reference Range Interpretation Comments POC-GLUCOSE METER 269 mg/dL 70-110 H TESTED AT [place] [address] ([facility]) (test code = TUTU Reese [facility] 1538) 33757 LIPID [id number] 03:12:00 Test Item Value Reference Range Interpretation Comments TRIGLYCERIDES ([facility]) (test code = 129 mg/dL 540) CHOLESTEROL ([facility]) (test code = 185 mg/dL 631) HDL CHOLESTEROL ([facility]) (test code 39 mg/dL = 976) LDL CHOLESTEROL CALCULATED ([facility]) 120 mg/dL (test code = 633) Triglyceride Reference Range: Low Risk <150 Borderline 150-199 High Risk 200- 499 Very High Risk >=500Cholesterol Reference Range: Low Risk <200 Borderline 200-239 High Risk >240HDL Cholesterol Reference Range: Low Risk >=60 High Risk <40LDL Cholesterol Reference Range: Optimal <100 Near Optimal 100-129 Borderline 130-159 High 160-189 Very High >=190 FastingRPR 2017-02-01 02:20:00 Test Item Value Reference Range Interpretation Comments RPR SCREEN ([facility]) (test code = Nonreactive Nonreactive 420) POCT-GLUCOSE [id number] 01:15:00 Test Item Value Reference Range Interpretation Comments POC-GLUCOSE METER 297 mg/dL 70-110 H TESTED AT [facility] 6720 ([facility]) (test code = TUTU Reese [facility] 1538) [address] POCT-GLUCOSE [id number] 22:01:00 Test Item Value Reference Range Interpretation Comments POC-GLUCOSE METER 354 mg/dL 70-110 H Notified R Becca SHOEMAKER/TESTED ([facility]) (test code = AT [facility] [address] [place] 1538) [facility] 7703 0 MR, BRAIN, WITHOUT [id number] 20:46:00Reason for exam:->Ischemic Stroke EvaluationFINAL REPORT MRI [...] evident. A few dilated perivascular spaces are noted.There is poor flow in the distal right [...] (neurology) at 8:45 PM Signed: Charanjit Ibarra [facility] Verified Date/Time: 01/31/2017 20:46:20 Reading Location: [facility] Radiology Reading Room MR, MRA, BRAIN, WITHOUT [id number] 20:36:00 Reason for exam:->Ischemic Stroke EvaluationFINAL REPORT MRA head and neck without contrast INDICATION: Stroke TECHNIQUE: 2-D and 3-D [id number] MRA images of the intra- and extracranial [...] occlusion. There is antegrade flow in the left vertebral artery, without flow limitation. The proximal left vertebral artery is not imaged. MRA clark's point of Sodo:There is right intradural vertebral artery occlusion with reconstitution near the vertebrobasilar confluence. Mild to moderate left vertebrobasilar confluence, moderate mid basilar artery and severe right and moderate left proximal [employer] stenoses are present. There are suspected severe left supraclinoid ICA stenosis with signal loss. There are mild stenoses of the left proximal MCA and TRUDY origins. No other flow limiting proximal clark's point of Sood vessels stenosis is seen. Motion artifacts limit accurate assessment for aneurysms. IMPRESSION: 1. Absent right cervical and proximal intradural v ertebral artery flow suspicious for occlusion. This may be due to dissection versus vasculopathic stenosis. 2. Bilateral mid to distal cervical ICA and distal left vertebral artery contour abnormalities suggestive of fibromuscular dysplasia. 3. Multifocal intracranial vasculopathic changes with stenoses as discussed, including severe left supraclinoid ICA and proximal right [employer] stenoses. 4. No hemodynamically significant cervical carotid artery stenosis by NASCET criteria. Signed: [facility]it [facility]ra [facility] Verified Date/Time: 01/31/2017 20:36:02 Reading Location: [facility] Radiology ReadingRoom MR, MRA, NECK, WITHOUT IV [id number] 20:36:00Reason for exam:->Ischemic Stroke EvaluationFINAL REPORT MRA head and neck without contrast INDICATION: Stroke TECHNIQUE: 2-D and 3-D [id number] MRA images of the intra- and extracranial [...] occlusion. There is antegrade flow in the left vertebral artery, without flow limitation. The proximal left vertebral artery is not imaged. 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 Mild to moderate left vertebrobasilar confluence, moderate mid basilar artery and severe right and moderate left proximal [employer] stenoses are present. There are suspected severe left supraclinoid ICA stenosis with signal loss. There are mild stenoses of the left proximal MCA and TRUDY or igins. No other flow limiting proximal clark's point of Sood vessels stenosis is seen. Motion artifacts limit accurate assessment for aneurysms. IMPRESSION: 1. Absent right cervical and proximal intradural vertebral artery flow suspicious for occlusion. This may be due to dissection versus vasculopathic stenosis. 2. Bilateral mid to distal cervical ICA and distal left vertebral artery contour abnormalities suggestive of fibromuscular dysplasia. 3. Multifocal intracranial vasculopathic changes with stenoses as discussed, including severe left supraclinoid ICA and proximal right [employer] stenoses. 4. No hemodynamically significant cervical carotid artery stenosis by NASCET criteria. Signed: Charanjit Ibarra MDReport Verified Date/Time: 01/31/2017 20:36:02 Reading Location: [facility] Radiology ReadingRoom VITAMIN B12 AND [id number] 13:11:00 Test Item Value Reference Range Interpretation Comments VITAMIN B12 ([employer]) (test code = 551 pg/mL 213-816 774) FOLATE ([employer]) (test code = 362) 15.7 ng/mL >=7.0 [id number] 10:22:00 Test Item Value Reference Range Interpretation Comments HOMOCYSTEINE ([employer]) (test code = 7.0 umol/L 5.1-15.4 642) POCT-GLUCOSE [id number] 08:22:00 Test Item Value Reference Range Interpretation Comments POC-GLUCOSE METER 200 mg/dL 70-110 H TESTED AT [facility] 6720 ([employer]) (test [facility] = [facility] 1538) [address] T4, [id number] 07:04:00 Test Item Value Reference Range Interpretation Comments FREE T4 ([employer]) (test code = 655) 1.28 ng/dL 0.70-1.48 TSH/FREE T4 IF [id number] 06:34:00 Test Item Value Reference Range Interpretation Comments THYROID STIMULATING HORMONE 0.22 uIU/mL 0.35-4.94 L ([employer]) (test code = 772) BASIC METABOLIC [id number] 05:53:00 Test Item Value Reference Range Interpretation [...] PATIEN TS. CBC W/PLT COUNT & AUTO [id number] 05:31:00 Test Item Value Reference Range Interpretation [...] % 0-1 PERCENT (BEAKER) (test code = 3257)
[2022-03-16] MEDS ORDERED: ONDANSETRON 4 MG/2 ML VIAL ONE (16:59)
[2022-03-16] MEDS ORDERED: MORPHINE 2 MG/ML SYR ONE ×2 (16:59→18:11)
--- NOTE | 2022-03-16 18:19 | RAD REPORT ---
EXAM DESCRIPTION: RAD - Humerus Right - 03/16/2022 5:58 pm CLINICAL HISTORY: Right arm pain status post fall FINDINGS: Comminuted moderately displaced humeral fracture appears to be supracondylar. No gross dislocation. The Bones are markedly osteoporotic
--- NOTE | 2022-03-16 18:47 | ER ---
Nurse's Notes [facility] Name: Rebecca Hazel Age: 81 yrs Sex: Female : 1940 Arrival Date: 03/16/2022 Time: 16:48 Bed 4 Private MD: Diagnosis: Displaced comminuted supracondylar fracture without intercondylar fracture of unspecified humerus, initial encounter for closed fracture Presentation: 03/16 16:48 Chief complaint: Patient states: Trip and fall just [employer] on carpeted floor. R arm pain ll1 only. No LOC, no head trauma. Coronavirus screen: Vaccine status: Patient reports receiving the 1st dose of the Covid vaccine. Client denies travel out of the [place] in the last 14 days. At this time, the client does not indicate any symptoms associated with coronavirus-19. Ebola Screen: Patient denies travel to an Ebola-affected area in the 21 days before illness onset. Initial Sepsis Screen: Does the patient meet any 2 criteria? No. Patient's initial sepsis screen is negative. Does the patient have a suspected source of infection? Yes: Bone or joint infection. Risk Assessment: Do you want to hurt yourself or someone else? Patient reports no desire to harm self or others. Onset of symptoms was March 16, 2022. 16:48 Method Of Arrival: EMS ll1 16:48 Acuity: DENNIS 3 ll1 16:51 Care prior to arrival: splint RUE. Mechanism of Injury: Fall. Trauma event details: ll1 Injury occurred in the [facility]. 16:52 Chief complaint: EMS states: BP 179/77, HR 122-112. RUE splinted. ll1 Historical: - Allergies: 16:49 No Known Allergies; ll1 - PMHx: 16:49 Diabetes - IDDM; Hypertension; Hypothyroidism; stroke with right sided weakness; TIA; ll1 - PSHx: 16:49 pacemaker; ll1 - Immunization history:: Client reports receiving the 1st dose of the Covid vaccine. - Social history:: Smoking status: Patient denies any tobacco usage or history of. - Immunization history: Last tetanus immunization: - up to date. - Family history:: not pertinent. - Hospitalizations: : No recent hospitalization is reported. Screenin:49 [facility] ED Fall Risk Assessment (Adult) History of falling in the last 3 months, ll1 including since admission Yes- single mechanical fall (1 pt) Impaired Gait Yes (1 pt) Mobility Assist Device Used Yes (1 pt) Score/Fall Risk Level 3 or more points = High Risk Oriented to surroundings, Maintained a safe environment, Educated pt \T\ family on fall prevention, incl call for assistance when getting out of bed, Hourly rounding (assess needs \T\ fall precautionary measures) done, Used ambulatory aids as needed (educated on \T\ assisted with). Abuse screen: Denies threats or abuse. Nutritional screening: No deficits noted. Tuberculosis screening: No symptoms or risk factors identified. Primary Survey: 16:50 NO uncontrolled hemorrhage observed. A: The client is awake and alert. The airway is ll1 patent. Breathing/Chest: Spontaneous respiratory effort, equal unlabored respirations, breath sounds clear bilaterally, regular pattern, symmetrical chest rise and fall. Circulation: No external hemorrhage present. Regular and strong central pulse, skin warm/dry/normal color. Disability Client is alert. Exposure/Environment: There is no evidence of uncontrolled external bleeding. 19:34 Reassessment Breathing: Respiratory effort Spontaneous Unlabored. ke1 Secondary Survey: 19:00 HEENT: Head No injury/deformity Face No injury/deformity Eyes: No injury or deformity ke1 noted. Ears: clear bilaterally. Nose: clear to bilateral nares. Throat: No injury or deformity noted. with gag reflex present. Gastrointestinal: Abdomen is soft. : No deficits noted. 19:36 Musculoskeletal: Range of motion: limited in right arm. ke1 Assessment: 16:52 General: Appears uncomfortable, Behavior is calm, cooperative, appropriate for age. ll1 Pain: Complains of pain in right arm Pain currently is 10 out of 10 on a pain scale. Quality of pain is described as aching, throbbing, Alleviated by rest. Musculoskeletal: Circulation, motion, and sensation intact. Capillary refill < 3 seconds, Reports pain in right arm. 17:20 Reassessment: No changes from previously documented assessment. Patient and/or family ll1 updated on plan of care and expected duration. Pain level reassessed. 18:14 Reassessment: No changes from previously documented assessment. Patient and/or family ll1 updated on plan of care and expected duration. Pain level reassessed. Vital Signs: 16:48 BP 167 / 90; Pulse 88; Resp 18; Pulse Ox 99% ; Weight 104.33 kg; Height 5 ft. 6 in. ll1 (167.64 cm); Pain 10/10; 17:32 BP 182 / 79; Pulse 79; Pulse Ox 100% on R/A; ll1 18:13 BP 172 / 91; Pulse 80; Resp 19; Temp 97.5; Pulse Ox 100% ; ll1 19:34 BP 156 / 81; Pulse 75; Resp 17; Temp 97.6; Pulse Ox 100% ; Pain 0/10; ke1 16:48 Body Mass Index 37.12 (104.33 kg, 167.64 cm) ll1 [place] Coma Score: 16:50 Eye Response: spontaneous(4). Verbal Response: oriented(5). Motor Response: obeys ll1 commands(6). Total: 15. Trauma Score (Adult): 16:50 Eye Response: spontaneous(1); Verbal Response: oriented(1); Motor Response: obeys ll1 commands(2); Systolic BP: > 89 mm Hg(4); Respiratory Rate: 10 to 29 per min(4); [place] Score: 15; Trauma Score: 12 ED Course: 16:48 Patient arrived in ED. ll1 16:49 Triage completed. ll1 16:49 Arm band placed on Patient placed in an exam room, on a stretcher. ll1 16:50 Patient has correct armband on for positive identification. Bed in low position. Call ll1 light in reach. Side rails up X2. Client placed on continuous cardiac and pulse oximetry monitoring. NIBP monitoring applied. 16:51 Wilfredo Mack MD is Attending Physician. rn 16:51 Mathew Krishnan RN is Primary Nurse. ll1 16:51 Patient maintains SpO2 saturation greater than 95% on room air. Thermoregulation: warm ll1 blanket given to patient. 17:01 Missed attempt(s): 22 gauge in right hand. x2. Bleeding controlled, band aid applied, ll1 catheter tip intact. 17:07 Inserted saline lock: 22 gauge in left wrist, using aseptic technique. bp 18:00 XRAY Humerus RIGHT In Process Unspecified. EDMS 18:00 XRAY Forearm RIGHT In Process Unspecified. EDMS 18:41 Orthoglass splint: posterior long arm splint applied to the right arm. zm 18:46 Erwin Wiggins MD is Referral Physician. rn 19:34 No provider procedures requiring assistance completed. IV discontinued. ke1 Administered Medications: 17:08 Drug: morphine 2 mg Route: IVP; Infused Over: 4 mins; Site: left wrist; bp 18:13 Follow up: Response: No adverse reaction; RASS: Alert and Calm (0) [facility] 17:08 Drug: Zofran (Ondansetron) 4 mg Route: IVP; Site: left wrist; bp 18:13 Follow up: Response: No adverse reaction 1 18:13 Drug: morphine 2 mg {Note: pain 10/10, rass 0.} Route: IVP; Infused Over: 4 mins; Site: ll1 left antecubital; Medication: 18:14 VIS not applicable for this client. ll1 Outcome: 18:46 Discharge ordered by . rn 19:37 Discharged to home via wheelchair. ke1 19:37 Condition: good 19:37 Discharge instructions given to patient. 19:37 Patient left the ED. ke1 Signatures: Dispatcher [employer] EDMS Wilfredo Mack MD MD rn Peltier, Brian, RN RN bp Lewis, Lynsay, RN RN ll1 Patricia Bailey RN RN ke1 Lizabeth Carson
--- NOTE | 2022-03-16 18:47 | EDPHYS ---
Physician Documentation [facility] Name: Rebecca Hazel Age: 81 yrs Sex: Female : 1940 Arrival Date: 03/16/2022 Time: 16:48 Bed 4 Private MD: ED Physician Wilfredo Mack HPI: 03/16 16:53 This 81 yrs old Female presents to ER via EMS with complaints of Fall Injury, Arm rn Injury. 16:53 Details of fall: The patient fell from an upright position. Onset: The symptoms/episode rn began/occurred just prior to arrival. Associated injuries: The patient sustained right arm. Severity of symptoms: At their worst the symptoms were moderate, in the emergency department the symptoms have improved, mildly. The patient has not experienced similar symptoms in the past. The patient has not recently seen a physician. Pt reports fall from standing, has trouble from previous right sided stroke. Takes eliquis. Reports isolated injury to right arm/elbow. No head injury or LOC. Remembers all events. Stumbled. . Historical: - Allergies: 16:49 No Known Allergies; ll1 - PMHx: 16:49 Diabetes - IDDM; Hypertension; Hypothyroidism; stroke with right sided weakness; TIA; ll1 - PSHx: 16:49 pacemaker; ll1 - Immunization history:: Client reports receiving the 1st dose of the Covid vaccine. - Social history:: Smoking status: Patient denies any tobacco usage or history of. - Immunization history: Last tetanus immunization: - up to date. - Family history:: not pertinent. - Hospitalizations: : No recent hospitalization is reported. ROS: 16:53 Constitutional: Negative for fever, chills, and weight loss, Eyes: Negative for injury, rn pain, redness, and discharge, Neck: Negative for injury, pain, and swelling, Cardiovascular: Negative for chest pain, palpitations, and edema, Respiratory: Negative for shortness of breath, cough, wheezing, and pleuritic chest pain, Abdomen/GI: Negative for abdominal pain, nausea, vomiting, diarrhea, and constipation, Back: Negative for injury and pain, MS/Extremity: + right arm pain Neuro: Negative for headache, weakness, numbness, tingling, and seizure. Exam: 16:53 Constitutional: This is a well developed, well nourished patient who is awake, alert, rn and in no acute distress. Head/Face: Normocephalic, atraumatic. Eyes: Periorbital areas with no swelling, redness, or edema. Neck: No midline tenderness Chest/axilla: Normal chest wall appearance and motion. Nontender with no deformity. No lesions are appreciated. Cardiovascular: Regular rate and rhythm. No pulse deficits. Respiratory: No increased work of breathing, no retractions or nasal flaring. Abdomen/GI: Soft, non-tender Skin: Warm, dry with normal turgor. Normal color with no rashes, no lesions, and no evidence of cellulitis. MS/ Extremity: Pulses equal, no cyanosis. + moderate tenderness right mid and distal humerus, no open wounds. No tenderness of distal wrist or hand. No tenderness along clavicle. Neuro: Awake and alert, GCS 15, oriented to person, place, time, and situation. Vital Signs: 16:48 BP 167 / 90; Pulse 88; Resp 18; Pulse Ox 99% ; Weight 104.33 kg; Height 5 ft. 6 in. ll1 (167.64 cm); Pain 10/10; 17:32 BP 182 / 79; Pulse 79; Pulse Ox 100% on R/A; ll1 18:13 BP 172 / 91; Pulse 80; Resp 19; Temp 97.5; Pulse Ox 100% ; ll1 19:34 BP 156 / 81; Pulse 75; Resp 17; Temp 97.6; Pulse Ox 100% ; Pain 0/10; ke1 16:48 Body Mass Index 37.12 (104.33 kg, 167.64 cm) ll1 [place] Coma Score: 16:50 Eye Response: spontaneous(4). Verbal Response: oriented(5). Motor Response: obeys ll1 commands(6). Total: 15. Trauma Score (Adult): 16:50 Eye Response: spontaneous(1); Verbal Response: oriented(1); Motor Response: obeys ll1 commands(2); Systolic BP: > 89 mm Hg(4); Respiratory Rate: 10 to 29 per min(4); [place] Score: 15; Trauma Score: 12 MDM: 16:51 Patient medically screened. rn 18:41 Differential diagnosis: contusion, fracture, sprain, strain. Data reviewed: vital rn signs, nurses notes, radiologic studies, plain films, and as a result, I will discharge patient. Independent interpretation of the following test(s) in the Emergency Department X-Ray: My interpretation is Xray right humerus with comminuted distal humerus fracture, supracondylar fracture, not intraarticular. . Counseling: I had a detailed discussion with the patient and/or guardian regarding: the historical points, exam findings, and any diagnostic results supporting the discharge/admit diagnosis, radiology results, the need for outpatient follow up, to return to the emergency department if symptoms worsen or persist or if there are any questions or concerns that arise at home. Response to treatment: the patient's symptoms have markedly improved after treatment, and as a result, I will discharge patient. Special discussion: I discussed with the patient/guardian in detail that at this point there is no indication for admission to the hospital. It is understood, however, that if the symptoms persist or worsen the patient needs to return immediately for re-evaluation. Based on the history and exam findings, there is no indication for further emergent testing or inpatient evaluation. I discussed with the patient/guardian the need to see the orthopedic surgeon for further evaluation of the symptoms. ED course: Given strict return precautions and f/u instructions, will dc in the splint with elevation and pain meds. . 03/16 16:51 Order name: XRAY Humerus RIGHT; Complete Time: 18:28 rn 03/16 18:28 Interpretation: Abnormal. rn 03/16 16:51 Order name: XRAY Forearm RIGHT; Complete Time: 18:28 rn 03/16 16:51 Order name: NPO; Complete Time: 16:52 rn 03/16 16:51 Order name: IV Start; Complete Time: 17:07 rn 03/16 18:01 Order name: Splint - Elbow - Posterior; Complete Time: 18:41 rn Administered Medications: 17:08 Drug: morphine 2 mg Route: IVP; Infused Over: 4 mins; Site: left wrist; bp 18:13 Follow up: Response: No adverse reaction; RASS: Alert and Calm (0) ll1 17:08 Drug: Zofran (Ondansetron) 4 mg Route: IVP; Site: left wrist; bp 18:13 Follow up: Response: No adverse reaction ll1 18:13 Drug: morphine 2 mg {Note: pain 10/10, rass 0.} Route: IVP; Infused Over: 4 mins; Site: ll1 left antecubital; Disposition Summary: 03/16/22 18:46 Discharge Ordered Location: Home rn Problem: new rn Symptoms: have improved rn Condition: Stable rn Diagnosis - Displaced comminuted supracondylar fracture without intercondylar fracture of rn unspecified humerus, initial encounter for closed fracture Followup: rn - With: - When: 5 - 6 days - Reason: Recheck today's complaints, Re-evaluation by your physician Discharge Instructions: - Discharge Summary Sheet rn - Humerus Fracture Treated With Immobilization, [id number] rn - Distal Humerus Elbow Fracture rn Forms: - Medication Reconciliation Form rn - Thank You Letter rn - Antibiotic external auditor - Prescription Opioid Use rn Prescriptions: - Tramadol 50 mg Oral Tablet - take 1 tablet by ORAL route every 8 hours as needed; 12 tablet; Refills: 0, rn Product Selection Permitted Signatures: Dispatcher [employer] Wilfredo Self MD MD rn Peltier, Brian, RN RN bp Lewis, Lynsay, RN RN ll1
[2022-03-16 20:12] VITALS: BP 172/91; TEMP 97.5; O2SAT 100
== END 2022-03-16 19:37 | disposition home or self-care (01) ==
LOC: ER 16:45
PROC: 2W3AX1Z Immobilization of Right Upper Arm using Splint (ICD-10-PCS; principal; 2022-03-16)
DX: S42.421A Displaced comminuted supracondylar fracture without intercondylar fracture of right humerus, initial encounter for closed fracture (principal); I10 Essential (primary) hypertension; Z95.0 Presence of cardiac pacemaker
CPT/HCPCS: 73090; 73060; 99284; 29105; J2270 ×2; J2405

== ENCOUNTER 2022-03-19 02:40 | Inpatient (IN) | payer OTHER ==
--- OUTSIDE RECORDS SUMMARY | 2022-03-19 02:46 | XMS REPORT | Continuity of Care Document ---
:1940 Author Organization [facility] t Address [address] [place] [address] Care Team Providers Name Role Phone SARIAH HART Primary Care Physician Unavailable Jacqui Pate Attending Clinician Unavailable KACIE FISCHER Attending Clinician Unavailable EM ALEX Attending Clinician Unavailable KACIE FISCHER Admitting Clinician Unavailable EM ALEX Admitting Clinician Unavailable Payers Payer Name Policy Type Policy Number Effective Date Expiration Date S santiago [facility]/MEDICARE [id number] 2016 COMPLETE 00:00:00 [facility] 53 [id number] 2021 [facility] ADVANTAGE 00:00:00 [facility] MEDICARE 53 [id number] 2020 [facility] ADVANTAGE 00:00:00 [facility] Problems Condition Condition Condition Status Onset Resolution Last Treating Co mments Source Name Details Category Date Date Treatment Clinician Date Symptomati Symptomati Disease Active [facility] bradycardi 00:00: Me dical a a 00 Center Acute deep Acute deep Disease Active 2017-0 M ethodi vein vein 6-25 st thrombosis thrombosis 00:00: Ho spita (DVT) of (DVT) of 00 l axillary axillary vein of vein of left upper left upper extremity extremity Osteomyeli Osteomyeli Disease Active M ethodi tis tis 6-14 st 00:00: Hospita 00 l 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C HI [facility] al al 02-12 [facility] arterioscl arterioscl 00:00: Me dical erosis erosis 00 [place] Diabetes Diabetes Disease Active [facility] mellitus mellitus 02-12 [facility] type 2, type 2, 00:00: Medical insulin insulin 00 Center dependent dependent Accelerate Accelerate Disease Active C [facility] d d 02-12 [facility] hypertensi hypertensi 00:00: Me dical on on 00 [place] S/P S/P Disease Active [facility] radiofrequ radiofrequ 02-12 [facility] ency ency 00:00: Medical ablation ablation 00 [place] operation operation for for arrhythmia arrhythmia 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, right eye Allergies, Adverse Reactions, Alerts Allergy Allergy Status Severity Reaction(s) Onset Inactive Treating Comm ents Source Name Type Date Date Clinician NO KNOWN Allergy Active [facility] Family History Family Member Diagnosis Comments Start Date Stop Date Source Natural father Diabetes [facility] Natural mother Hypertension [facility] Social History Social Habit Start Date Stop Date Quantity Comments Source History of [facility] - Tobacco Use [facility] Alcohol intake 2020-08-09 2020-08-09 Current [facility] 00:00:00 00:00:00 non-drinker of Medical Ce nter alcohol (finding) Tobacco use and 2017-01-31 2017-01-31 Never used [facility] exposure 00:00:00 00:00:[address] [facility] Sex Ass[birth year] At [birth year] [facility] 00:00:00 00:00:00 [facility] Smoking Status Start Date Stop Date Source Never Smoker [facility] Medications Ordered Filled Start Stop Current Ordering Indication Dosage Frequency Signature Comments Components Source Medication Medication Date Date Medication? Clinician (SIG) Name Name Levothyroxi Levothyroxi No QD Levothyrox ne Sodium ne Sodium -03 ine Sodium 88 MCG 88 MCG 00:00: 88 MCG 00 Benzonatate Benzonatate 2021- No 1{capsu TID Benzonatat 100 MG 100 MG [...] mouth [facility] tablet 23:38: daily. Medical 15 Center metoprolol Yes 25mg QD Take [address] (TOPROL-XL) 6-29 by mouth Luke s 25 MG 24 hr 23:38: daily. Medi dragan tablet 15 Center insulin Yes Inject [facility] 70/30, 6-29 subcutaneo [facility] insulin 23:38: usly 2 Medical NPH-insulin 15 (two) Center regular, times (HumuLIN daily 70/30) 100 before unit/mL meals. (70-30) injection cloNIDine Yes .1mg [id number] Take 0.[address] HCL 6-29 [id number] mg by [facility] (CATAPRES) 23:38: 3D mouth [...] 20 MG 23:38: daily. Medical capsule 15 Center furosemide Yes 80mg QD Take [address] (LASIX) 80 6-29 by mouth [facility] MG tablet 23:38: daily. Medica l 15 Center metoprolol Yes 12.5mg Take 12.[address] tartrate 6-29 mg by [facility] (LOPRESSOR 23:38: mouth. Medic al ORAL) 15 Center atorvastati Yes 80mg QD Take [address] n (LIPITOR) 6-29 by mouth Luke s 80 MG 23:38: daily. Medical tablet 15 [place] famotidine Yes 20mg QD Take [address] (PEPCID) 20 6-29 by mouth Luke s MG tablet 23:38: daily. Medica l 15 [place] GABAPENTIN Yes 200mg QD Take [address] ORAL 6-29 mg by [facility] 23:38: mouth Medical 15 daily. [place] aspirin 81 Yes 81mg QD Take [address] MG EC 6-29 by mouth [facility] tablet 23:38: daily. Medical 15 [place] metoprolol Yes 25mg QD Take [address] (TOPROL-XL) 6-29 by mouth Luke s 25 MG 24 hr 23:38: daily. Medi dragan tablet 15 [place] insulin Yes Inject [facility] 70/30, 6-29 subcutaneo [facility] insulin 23:38: usly 2 Medical NPH-insulin 15 (two) Center regular, times (HumuLIN daily 70/30) 100 before unit/mL meals. (70-30) injection cloNIDine Yes .1mg Q.[id number] Take 0.[address] HCL 6-29 [id number] mg by [facility] (CATAPRES) 23:38: 3D mouth [...] 20 MG 23:38: daily. Medical capsule 15 [place] furosemide Yes 80mg QD Take [address] (LASIX) 80 6-29 by mouth [facility] MG tablet 23:38: daily. Medica l 15 Center metoprolol Yes 12.5mg Take 12.[address] tartrate 6-29 mg by [facility] (LOPRESSOR 23:38: mouth. Medic al ORAL) 15 Center atorvastati Yes 80mg QD Take [address] n (LIPITOR) 6-29 by mouth Luke s 80 MG 23:38: daily. Medical tablet 15 Center famotidine Yes 20mg QD Take [address] (PEPCID) 20 6-29 by mouth Luke s MG tablet 23:38: daily. Medica l 15 Center GABAPENTIN Yes 200mg QD Take [address] ORAL 6-29 mg by [facility]ukes 23:38: mouth Medical 15 daily. [place] BD Insulin BD Insulin 2019-0 No TID BD Insulin Syr Syr -15 Syr Ultrafine Ultrafine 00:00: Ultrafine II 31G X II 31G X 00 II 31G X 5/16" 0.5 5/16" 0.5 5/16" 0.5 ML ML ML BD Insulin BD Insulin 2020-0 No TID BD Insulin Syr Syr -15 Syr Ultrafine Ultrafine 00:00: Ultrafine II 31G X II 31G X 00 II 31G X 5/16" 0.5 5/16" 0.5 5/16" 0.5 ML ML ML BD Insulin BD Insulin 2020-0 No TID BD Insulin Syr Syr -15 Syr Ultrafine Ultrafine 00:00: Ultrafine II 31G [...] 5/16" 0.5 5/16" 0.5 ML ML ML HUMULIN Yes INJECT 15 Metho di 70/30 U-100 6-[address] INSULIN 100 00:00: UNDER THE H ospita unit/mL 00 SKIN TID l (70-30) BEFORE injection MEALS famotidine 0 Yes TK 1 T PO Me thodi (PEPCID) 20 5-[address] MG tablet 00:00: Hospita 00 l atorvastati 0 Yes TK 1 T PO M ethodi n (LIPITOR) 5-[address] 80 MG 00:00: Hospita tablet 00 l DULoxetine 0 Yes TK 1 C PO Me thodi (CYMBALTA) 5-[address] 20 MG 00:00: Hospita capsule 00 l levothyroxi 0 Yes TK 1 T PO M ethodi ne 3-[address] (SYNTHROID, 00:00: Hospit a LEVOXYL) 00 l 150 mcg tablet insulin 0 Yes 25u QAM [facility] detemir 1-02 and 15u [facility] (LEVEMIR) 00:00: QHS. Medical 100 unit/mL 00 Center (3 mL) InPn injection insulin 0 Yes 25u QAM [facility] detemir 1-02 [...] [facility] OVER 65 OVER 65 10:58:00 [facility] FLUZONE HIGH DOSE FLUZONE HIGH DOSE 2021-03-07 Completed [facility] OVER 65 OVER 65 10:58:00 - [facility] FLUZONE HIGH DOSE FLUZONE HIGH DOSE 2021-03-07 Completed [facility] OVER 65 OVER 65 10:58:00 - [facility] FLUZONE HIGH DOSE FLUZONE HIGH DOSE 2021-03-07 Completed [facility] OVER 65 OVER 65 10:58:00 [facility] FLUZONE HIGH DOSE FLUZONE HIGH DOSE 2021-03-07 Completed [facility] OVER 65 OVER 65 10:58:00 [facility] FLUZONE HIGH DOSE FLUZONE HIGH DOSE 2021-03-07 Completed [facility] OVER 65 OVER 65 10:58:00 [facility] FLUZONE HIGH DOSE FLUZONE HIGH DOSE 2021-03-07 Completed [facility] OVER 65 OVER 65 10:58:00 - [facility] FLUZONE HIGH DOSE FLUZONE HIGH DOSE 2021-03-07 Completed [facility] OVER 65 OVER 65 10:58:00 - [facility] FLUZONE HIGH DOSE FLUZONE HIGH DOSE 2021-03-07 Completed [facility] OVER 65 OVER 65 10:58:00 - [facility] FLUZONE HIGH DOSE FLUZONE HIGH DOSE 2021-03-07 Completed [facility] OVER 65 OVER 65 10:58:00 - [facility] FLUZONE HIGH DOSE FLUZONE HIGH DOSE 2021-03-07 Completed [facility] OVER 65 OVER 65 10:58:00 - [facility] FLUZONE HIGH DOSE FLUZONE HIGH DOSE 2021-03-07 Completed [facility] OVER 65 OVER 65 10:58:00 - [facility] FLUZONE HIGH DOSE FLUZONE HIGH DOSE 2021-03-07 Completed [facility] OVER 65 OVER 65 10:58:00 - [facility] FLUZONE HIGH DOSE FLUZONE HIGH DOSE 2021-03-07 Completed [facility] OVER 65 OVER 65 10:58:00 - [facility] FLUZONE HIGH DOSE FLUZONE HIGH DOSE 2021-03-07 Completed [facility] OVER 65 OVER 65 10:58:00 - [facility] FLUZONE HIGH DOSE FLUZONE HIGH DOSE 2021-03-07 Completed [facility] OVER 65 OVER 65 10:58:00 - [facility] COVID-19 Vaccine COVID-19 Vaccine 2020-04-14 Completed Co [facility] (Dmitry) (Dmitry) 13:50:00 [facility] COVID-19 Vaccine COVID-19 Vaccine 2020-04-14 Completed [facility] (Dmitry) (Dmitry) 13:50:00 - [facility] COVID-19 Vaccine COVID-19 Vaccine 2020-04-14 Completed [facility] (Dmitry) (Dmitry) 13:50:00 - [facility] COVID-19 Vaccine COVID-19 Vaccine 2020-04-14 Completed Co [facility] (Dmitry) (Dmitry) 13:50:00 - [facility] COVID-19 Vaccine COVID-19 Vaccine 2020-04-14 Completed Co [facility] (Dmitry) (Dmitry) 13:50:00 - [facility] COVID-19 Vaccine COVID-19 Vaccine 2020-04-14 Completed Co [facility] (Dmitry) (Dmitry) 13:50:00 - [facility] COVID-19 Vaccine COVID-19 Vaccine 2020-04-14 Completed Co [facility] (Dmitry) (Dmitry) 13:50:00 - [facility] COVID-19 Vaccine COVID-19 Vaccine 2020-04-14 Completed Co [facility] (Dmitry) (Dmitry) 13:50:00 - [facility] COVID-19 Vaccine COVID-19 Vaccine 2020-04-14 Completed [facility] (Dmitry) (Dmitry) 13:50:00 - [facility] COVID-19 Vaccine COVID-19 Vaccine 2020-04-14 Completed Co [facility] (Dmitry) (Dmitry) 13:50:00 - [facility] COVID-19 Vaccine COVID-19 Vaccine 2020-04-14 Completed [facility] (Dmitry) (Dmitry) 13:50:00 - [facility] COVID-19 Vaccine COVID-19 Vaccine 2020-04-14 Completed [facility] (Dmitry) (Dmitry) 13:50:00 - [facility] COVID-19 Vaccine COVID-19 Vaccine 2020-04-14 Completed [facility] (Dmitry) (Dmitry) 13:50:00 - [facility] COVID-19 Vaccine COVID-19 Vaccine 2020-04-14 Completed [facility] (Dmitry) (Dmitry) 13:50:00 - [facility] COVID-19 Vaccine COVID-19 Vaccine 2020-04-14 Completed [facility] (Dmitry) (Dmitry) 13:50:00 [facility] COVID-19 Vaccine COVID-19 Vaccine 2020-04-14 Completed [facility] (Dmitry) (Dmitry) 13:50:00 [facility] Influenza Three-TIV 2017-01-31 Completed [facility] PF 5+ YR 00:00:00 Medical Center Influenza Three-TIV 2017-01-31 Completed [facility] PF 5+ YR 00:00:00 Medical Center Vital Signs Vital Name Observation Time Observation Value Comments Source HEIGHT 2020-08-08 13:02:00 165.1 cm WEIGHT 2020-08-08 13:02:00 104.327 kg height 2022-01-01 13:20:00 64 [in_i] [facility] weight 2022-01-01 13:20:00 230 [lb_av] [facility] temperature 2022-01-01 13:20:00 97.4 [degF] [facility] bmi 2022-01-01 13:20:00 39.48 kg/m2 [facility] oximetry 2022-01-01 13:20:00 98 % [facility] respiratory rate 2022-01-01 13:20:00 17 /min Comm on [facility] blood pressure 2022-01-01 13:20:00 132 mm[Hg] Common [facility] - systolic [facility] blood pressure 2022-01-01 13:20:00 80 mm[Hg] Common [facility] - diastolic [facility] height 2021-10-02 14:20:00 64 [in_i] [facility] weight 2021-10-02 14:20:00 230 [lb_av] [facility] temperature 2021-10-02 14:20:00 97.9 [degF] [facility] bmi 2021-10-02 14:20:00 39.48 kg/m2 [facility] oximetry 2021-10-02 14:20:00 97 % [facility] respiratory rate 2021-10-02 14:20:00 18 /min Comm on [facility] blood pressure 2021-10-02 14:20:00 138 mm[Hg] Common [facility] - systolic [facility] blood pressure 2021-10-02 14:20:00 86 mm[Hg] Common [facility] - diastolic [facility] height 2021-07-19 13:40:00 64 [in_i] Common S pirit [facility] weight 2021-07-19 13:40:00 230 [lb_av] Common S [facility] temperature 2021-07-19 13:40:00 97.9 [degF] Common S pirit [facility] bmi 2021-07-19 13:40:00 39.48 kg/m2 Common S [facility] oximetry 2021-07-19 13:40:00 97 % Common [facility] respiratory rate 2021-07-19 13:40:00 16 /min Comm on [facility] blood pressure 2021-07-19 13:40:00 161 mm[Hg] Common [facility] - systolic [facility] blood pressure 2021-07-19 13:40:00 90 mm[Hg] Common [facility] - diastolic [facility] height 2021-06-05 13:20:00 64 [in_i] Common S [facility] weight 2021-06-05 13:20:00 230 [lb_av] [facility] temperature 2021-06-05 13:20:00 97.6 [degF] Common S pirit [facility] bmi 2021-06-05 13:20:00 39.48 [facility] 2021-06-05 13:20:00 96 % Common S [facility] respiratory rate 2021-06-05 13:20:00 18 /min Comm on [facility] blood pressure 2021-06-05 13:20:00 142 mm[Hg] Common [facility] - systolic [facility] blood pressure 2021-06-05 13:20:00 70 mm[Hg] Common [facility] - diastolic [facility] height 2021-04-27 10:40:00 64 [in_i] Common S pirit [facility] weight 2021-04-27 10:40:00 230 [lb_av] Common S pirit [facility] temperature 2021-04-27 10:40:00 97.7 [degF] Common S pirit [facility] bmi 2021-04-27 10:40:00 39.48 [facility]m2 [facility] oximetry 2021-04-27 10:40:00 95 % [facility] 2021-04-27 10:40:00 18 /min Comm on [facility] blood pressure 2021-04-27 10:40:00 134 mm[Hg] [facility] - systolic [facility] blood pressure 2021-04-27 10:40:00 60 mm[Hg] Common [facility] - diastolic [facility] blood pressure 2021-03-07 09:40:00 132 mm[Hg] Common [facility] - systolic [facility] blood pressure 2021-03-07 09:40:00 80 mm[Hg] [facility] - diastolic [facility] height 2021-03-07 09:40:00 64 [in_i] Common [facility] weight 2021-03-07 09:40:00 230 [lb_av] [facility] temperature 2021-03-07 09:40:00 98.1 [degF] [facility] bmi 2021-03-07 09:40:00 39.48 kg/m2 [facility] oximetry 2021-03-07 09:40:00 98 % [facility] S [facility] respiratory rate 2021-03-07 09:40:00 16 /min Comm on [facility] height 2021-03-07 10:20:00 64 [in_i] [facility] weight 2021-03-07 10:20:00 230 [lb_av] [facility] temperature 2021-03-07 10:20:00 98.1 [degF] Common S pirit [facility] bmi 2021-03-07 10:20:00 39.48 kg/m2 Common [facility] oximetry 2021-03-07 10:20:00 98 % Common S pirit [facility] blood pressure 2021-03-07 10:20:00 132 mm[Hg] [facility] - systolic [facility] blood pressure 2021-03-07 10:20:00 80 mm[Hg] [facility] - diastolic [facility] HEIGHT 2020-08-08 13:02:00 165.1 cm WEIGHT 2020-08-08 13:02:00 104.327 kg Procedures This patient has no known procedures. Plan of Care Planned Activity Planned Date Details Comments Source Future Scheduled 2022-03-08 COVID-19 VACCINE (#1) [facility] Test 05:54:06 [code = COVID-19 VACCINE (#1)] Future Scheduled 2022-03-08 SHINGLES VACCINES (1 Met [facility] Test 05:54:06 of 2) [code = SHINGLES VACCINES (1 of 2)] Future Scheduled 2022-03-08 65+ PNEUMOCOCCAL [facility] Hospital Test 05:54:06 VACCINE (1 - PCV) [code = 65+ PNEUMOCOCCAL VACCINE (1 - PCV)] Future Scheduled 2022-03-08 INFLUENZA VACCINE Method [facility] Test 05:54:06 [code = INFLUENZA VACCINE] Future Scheduled 2022-02-[address] [facility] Test 00:00:00 (12+) [code = [facility] DEPRESSION SCREENING (12+)] Future Scheduled 2022-02-10 FALLS RISK SCREENING [facility] Test 00:00:00 [code = FALLS RISK Medical C enter SCREENING] Future Scheduled 2022-02-[address] [facility] Test 00:00:00 (12+) [code = Medical Center DEPRESSION SCREENING (12+)] Future Scheduled 2022-02-10 FALLS RISK SCREENING [facility] Test 00:00:00 [code = FALLS RISK Medical C enter SCREENING] Future Scheduled 2021-10-11 INFLUENZA VACCINE (#1) [facility] Test 00:00:00 [code = INFLUENZA Medical Ce nter VACCINE (#1)] Future Scheduled 2021-10-11 INFLUENZA VACCINE (#1) [facility] Test 00:00:00 [code = INFLUENZA Medical Ce nter VACCINE (#1)] Future Scheduled 2017-08-[address] [facility] Test 00:00:00 measurement Medical Center (procedure) [code = 81049663] Future Scheduled 2017-08-[address] [facility] Test 00:00:00 measurement Medical Center (procedure) [code = 43414952] Future Scheduled 2017-02-[address] [facility] Test 00:00:00 WELLNESS (YEAR 2 or Medical Center FIRST YEAR if no IPPE) [code = MEDICARE ANNUAL WELLNESS (YEAR 2 or FIRST YEAR if no IPPE)] Future Scheduled 2017-02-[address] [facility] Test 00:00:00 WELLNESS (YEAR 2 or Medical Center FIRST YEAR if no IPPE) [code = MEDICARE ANNUAL WELLNESS (YEAR 2 or FIRST YEAR if no IPPE)] Future Scheduled 1991-08-13 SHINGLES VACCINES ([address] [facility] Test 00:00:00 of 2) [code = SHINGLES Medic al Center VACCINES (1 of 2)] Future Scheduled 1991-08-13 SHINGLES VACCINES ([address] [facility] Test 00:00:00 of 2) [code = SHINGLES Medic al Center VACCINES (1 of 2)] Future Scheduled 1960 DTAP/TDAP/TD VACCINES [facility] Test 00:00:00 (1 - Tdap) [code = Medical C enter DTAP/TDAP/TD VACCINES (1 - Tdap)] Future Scheduled 1960 DTAP/TDAP/TD VACCINES [facility] Test 00:00:00 (1 - Tdap) [code = Medical C enter DTAP/TDAP/TD VACCINES (1 - Tdap)] Future Scheduled [address] [facility] Test 00:00:00 Counseling and Medical Cente r Screening (12+) [code = Tobacco Cessation Counseling and Screening (12+)] Future Scheduled [address] [facility] Test 00:00:00 Counseling and Medical Cente r Screening (12+) [code = Tobacco Cessation Counseling and Screening (12+)] Future Scheduled 1951-08-[address] EYE EXAM [facility] Test 00:00:00 [code = DIABETIC EYE Medical Center EXAM] Future Scheduled 1951-08-[address] [facility] Test 00:00:00 examination Medical Center (regime/therapy) [code = 853580330] Future Scheduled 1951-08-13 Urine screening for [facility] Test 00:00:00 protein (procedure) Medical Center [code = 985790721] Future Scheduled 1951-08-[address] DIABETIC EYE EXAM [facility] Test 00:00:00 [code = DIABETIC EYE Medical Center EXAM] Future Scheduled 1951-08-[address] [facility] Test 00:00:00 examination Medical Center (regime/therapy) [code = 344549086] Future Scheduled 1951-08-13 Urine screening for [facility] Test 00:00:00 protein (procedure) Medical Center [code = 927267518] Future Scheduled 1947-08-13 PNEUMOCOCCAL 65+ YRS [facility] Test 00:00:00 (1 - PCV) [code = Medical Ce nter PNEUMOCOCCAL 65+ YRS (1 - PCV)] Future Scheduled 1947-08-13 PNEUMOCOCCAL 65+ YRS [facility] Test 00:00:00 (1 - PCV) [code = Medical Ce nter PNEUMOCOCCAL 65+ YRS (1 - PCV)] Future Scheduled 1942-02-12 COVID-19 VACCINE (#1) [facility] Test 00:00:00 [code = COVID-[address] VACCINE (#1)] Future Scheduled 1942-02-12 COVID-19 VACCINE (#1) [facility] Test 00:00:00 [code = COVID-[address] VACCINE (#1)] Future Scheduled 1941 DXA SCAN [code = DXA [facility] Test 00:00:00 SCAN] Medical Center Future Scheduled 1941 DXA SCAN [code = DXA [facility] Test 00:00:00 SCAN] Medical Center Encounters Start End Encounter Admission Attending Care Care Encounter Source Date/Time Date/Time Type Type Clinicians Facility Department ID 2022-03-18 [facility] [id number] Common 10:09:03 Jacqui [id number] [facility] 2022-03-04 Outpatient JESUSITA Pate STLC [id number] Common 14:03:03 Jacqui [id number] [facility] 2022-02-27 Outpatient [place], STLMLC STLMLC [id number] Common 09:36:03 Jacqui [facility] 2022-02-12 Outpatient [place], STLMLC STLMLC [id number] Common 10:34:01 Jacqui [facility] 2021-09-28 Outpatient Conway, STLMLC STLMLC [id number] Common 11:23:02 Jacqui [facility] 2021-08-28 Outpatient Conway, STLMLC STLMLC [id number] Common 10:04:02 Jacqui [facility] 2021-07-17 Outpatient Conway, STLMLC STLMLC [id number] Common 11:12:01 Jacqui [facility] 2021-06-06 Outpatient Conway, STLMLC STLMLC [id number] Common 07:42:01 Jacqui [facility] 2021-04-25 Outpatient Conway, STLMLC STLMLC [id number] Common 09:14:02 Jacqui [facility] 2021-03-14 Outpatient [place], STLMLC STLMLC [id number] Common 13:05:01 Jacqui [facility] 2021-03-07 Outpatient [place], STLMLC STLMLC [id number] Common 14:40:28 Jacqui [facility] 2020-11-19 Outpatient KACIE FISCHER [facility] Surgery [id number] SLE 02:33:02 2022-01-08 2022-01-08 (TEL) STLMLC STLMLC [id number] Co mmon 00:00:00 00:00:00 [facility] 2022-01-01 2022-01-01 OFFICE STLMLC STLMLC [id number] Co mmon 00:00:00 00:00:00 VISIT [facility] 4 [facility] 2021-11-20 2021-11-20 (TEL) STLMLC STLMLC [id number] Co mmon 00:00:00 00:00:00 [facility] 2021-10-26 2021-10-26 (TEL) STLMLC STLMLC [id number] Co mmon 00:00:00 00:00:00 [facility] 2021-10-02 2021-10-02 OFFICE STLMLC STLMLC [id number] Co mmon 00:00:00 00:00:00 VISIT [facility] PT - CHI LEVEL 4 [facility] 2021-08-17 2021-08-17 (TEL) STLMLC STLMLC [id number] Co mmon 00:00:00 00:00:00 [facility] 2021-07-19 2021-07-19 OFFICE STLMLC STLMLC [id number] Co mmon 00:00:00 00:00:00 VISIT [facility] PT - CHI LEVEL 4 [facility] 2021-07-17 2021-07-17 (TEL) STLMLC STLMLC [id number] Co mmon 00:00:00 00:00:00 [facility] 2021-06-05 2021-06-05 OFFICE STLMLC STLMLC [id number] Co mmon 00:00:00 00:00:00 VISIT [facility] PT - CHI LEVEL 4 [facility] 2021-05-08 2021-05-08 (TEL) STLMLC STLMLC [id number] Co mmon 00:00:00 00:00:00 [facility] 2021-04-27 2021-04-27 OFFICE STLMLC STLMLC [id number] Co mmon 00:00:00 00:00:00 VISIT EST [facility] PT LEVEL 3 - CHI [facility] 2021-04-19 2021-04-19 (TEL) STLMLC STLMLC [id number] Co mmon 00:00:00 00:00:00 [facility] 2021-03-07 2021-03-07 OFFICE STLMLC STLMLC [id number] Co mmon 00:00:00 00:00:00 VISIT [facility] PT - CHI LEVEL 4 [facility] 2021-03-07 2021-03-07 SUB ANNUAL STLMLC STLMLC [id number] Common 00:00:00 00:00:00 [facility]CR [facility] WELLNESS - CHI VISIT [facility] 2020-08-08 2020-08-08 Outpatient [facility] [id number] [facility] 00:00:00 23:59:00 [facility] of Medicin e Results Test Description Test Time Test Comments Results Result Comments Source HEMOGLOBIN A1C 2022-01-01 00:00:00 Test Item Value Reference Range Interpretation Comme nts A1C (test code = 4548-4) 10.6 HEMOGLOBIN [id number] 00:00:00 Test Item Value Reference Range Interpretation Comments A1C (test code = 4548-4) 10.3 HEMOGLOBIN [id number] 00:00:00 Test Item Value Reference Range Interpretation Comments A1C (test code = 4548-4) 8.8 HEMOGLOBIN [id number] 00:00:00 Test Item Value Reference Range Interpretation Comments A1C (test code = 4548-4) 9.4 RAD, CHEST, 1 VIEW, NON [id number] 20:01:00Reason for exam:->s/p PPM implantShould this be performed at the bedside?->Yes [facility] : 1940 Sex: FFINALREPORT AP chest dated 08/08/2020 Comment: Heart is in upper limits of normal in size. Pulmonary vasculature is unremarkable. Lungs are clear. No pulmonary infiltrate or pleural effusion. AICD is present. No pneumothorax is seen. Signed: [place] Ring MDReport Verified Date/Time: 08/08/2020 20:01:08 Reading Location: [place] [id number] Consult Reading Room BASIC METABOLIC [id number] 19:57:00 Test Item Value Reference Range Interpretation Comments SODIUM (BEAKER) 140 meq/L 136-145 (test code = 381) POTASSIUM (BEAKER) 4.9 meq/L 3.5-5.1 (test code = 379) CHLORIDE (BEAKER) 103 meq/L 98-107 (test code = 382) CO2 (BEAKER) (test 26 meq/L 22-29 code = 355) BLOOD UREA NITROGEN 78 [...] S NOT APPLICABLE FOR DIALYSIS PATIEN TS. [employer] ID - IVANIA CCBC W/PLT COUNT & AUTO [id number] 13:56:00 Test Item Value Reference Range Interpretation [...] (BEAKER) (test code = 2801) URINALYSIS W/ [id number] 14:41:00 Test Item Value Reference Range Interpretation [...] Urine, Straight code = 2795) Catheter POCT-GLUCOSE [id number] 11:21:00 Test Item Value Reference Range Interpretation Comments POC-GLUCOSE METER 167 mg/dL 70-110 H TESTED AT [place] [address] ([facility] (test code = LUISALESLY Reese [facility] 1538) [address] POCT-GLUCOSE [id number] 08:56:00 Test Item Value Reference Range Interpretation Comments POC-GLUCOSE METER 167 mg/dL 70-110 H TESTED AT [place] [address] ([facility]) (test code = LUISALESLY Reese [facility] 1538) 17482 POCT-GLUCOSE [id number] 22:03:00 Test Item Value Reference Range Interpretation Comments POC-GLUCOSE METER 128 mg/dL 70-110 H TESTED AT [place] [address] ([facility]) (test code = [place]ALESLY [place] 1538) [address] POCT-GLUCOSE [id number] 17:31:00 Test Item Value Reference Range Interpretation Comments POC-GLUCOSE METER 141 mg/dL 70-110 H TESTED AT [place] [address] ([facility]) (test code = LUISALESLY [place]ese [place] 1538) 60247 POCT-GLUCOSE [id number] 11:58:00 Test Item Value Reference Range Interpretation Comments POC-GLUCOSE METER 159 mg/dL 70-110 H TESTED AT [place] [address] ([facility]) (test code = LUISALESLY [place] 1538) 33967 POCT-GLUCOSE [id number] 07:47:00 Test Item Value Reference Range Interpretation Comments POC-GLUCOSE METER 115 mg/dL 70-110 H TESTED AT [place] [address] ([facility]) (test code = TUTU [place] 1538) [address] POCT-GLUCOSE [id number] 21:03:00 Test Item Value Reference Range Interpretation Comments POC-GLUCOSE METER 177 mg/dL 70-110 H TESTED AT [place] [address] ([facility]) (test code = TUTU Reese [place] 1538) 11650 POCT-GLUCOSE [id number] 16:23:00 Test Item Value Reference Range Interpretation Comments POC-GLUCOSE METER 185 mg/dL 70-110 H TESTED AT [place] [address] ([facility]) (test code = TUTU Reese [place] 1538) 13136 POCT-GLUCOSE [id number] 12:04:00 Test Item Value Reference Range Interpretation Comments POC-GLUCOSE METER 208 mg/dL 70-110 H TESTED AT [place] [address] ([facility]) (test code = TUTU Reese [place] 1538) 74371 POCT-GLUCOSE [id number] 07:51:00 Test Item Value Reference Range Interpretation Comments POC-GLUCOSE METER 127 mg/dL 70-110 H TESTED AT [place] [address] ([facility]) (test code = TUTU [place]ese [place] 1538) 6[address] POCT-GLUCOSE [id number] 20:44:00 Test Item Value Reference Range Interpretation Comments POC-GLUCOSE METER 225 mg/dL 70-110 H TESTED AT [place] [address] ([facility]) (test code = TUTU [place] 1538) 72972 POCT-GLUCOSE [id number] 17:52:00 Test Item Value Reference Range Interpretation Comments POC-GLUCOSE METER 150 mg/dL 70-110 H TESTED AT [place] [address] ([facility]) (test code = TUTU [place]ese [place] 1538) 36659 POCT-GLUCOSE [id number] 12:45:00 Test Item Value Reference Range Interpretation Comments POC-GLUCOSE METER 176 mg/dL 70-110 H TESTED AT [place] [address] ([facility]) (test code = TUTU [place] 1538) 79758 POCT-GLUCOSE [id number] 07:41:00 Test Item Value Reference Range Interpretation Comments POC-GLUCOSE METER 147 mg/dL 70-110 H TESTED AT [place] [address] ([facility]) (test code = LUISALESLY Hugh [place] 1538) 54756 POCT-GLUCOSE [id number] 20:42:00 Test Item Value Reference Range Interpretation Comments POC-GLUCOSE METER 194 mg/dL 70-110 H TESTED AT [place] [address] ([facility]) (test code = UTTU [place] 1538) 54911 POCT-GLUCOSE [id number] 17:33:00 Test Item Value Reference Range Interpretation Comments POC-GLUCOSE METER 174 mg/dL 70-110 H TESTED AT [place] [address] ([facility]) (test code = TUTU [place] 1538) 32650 POCT-GLUCOSE [id number] 12:14:00 Test Item Value Reference Range Interpretation Comments POC-GLUCOSE METER 153 mg/dL 70-110 H TESTED AT [place] [address] ([facility]) (test code = TUTU [place] 1538) 04787 POCT-GLUCOSE [id number] 07:55:00 Test Item Value Reference Range Interpretation Comments POC-GLUCOSE METER 220 mg/dL 70-110 H TESTED AT [place] [address] ([facility]) (test code = TUTU [place] 1538) 37833 POCT-GLUCOSE [id number] 20:50:00 Test Item Value Reference Range Interpretation Comments POC-GLUCOSE METER 241 mg/dL 70-110 H TESTED AT [place] [address] ([facility]) (test code = TUTU [place] 1538) 44439 POCT-GLUCOSE [id number] 16:54:00 Test Item Value Reference Range Interpretation Comments POC-GLUCOSE METER 218 mg/dL 70-110 H TESTED AT [place] [address] ([facility]) (test code = TUTU [place] 1538) 29864 POCT-GLUCOSE [id number] 11:45:00 Test Item Value Reference Range Interpretation Comments POC-GLUCOSE METER 257 mg/dL 70-110 H TESTED AT [place] [address] ([facility]) (test code = TUTU Reese [facility] 1538) 87354 POCT-GLUCOSE [id number] 07:57:00 Test Item Value Reference Range Interpretation Comments POC-GLUCOSE METER 219 mg/dL 70-110 H TESTED AT [place] [address] ([facility]) (test code = TUTU [place] 1538) [address] BASIC METABOLIC [id number] 06:05:00 Test Item Value Reference Range Interpretation Comments SODIUM ([facility]) 139 meq/L 136-145 (test code = 381) POTASSIUM ([facility]) 4.1 meq/L 3.5-5.1 (test code = 379) [...] PATIEN TS. CBC W/PLT COUNT & AUTO [id number] 05:42:00 Test Item Value Reference Range Interpretation [...] PERCENT (BEAKER) (test code = 2801) POCT-GLUCOSE [id number] 20:57:00 Test Item Value Reference Range Interpretation Comments POC-GLUCOSE METER 301 mg/dL 70-110 H Notified R Becca SHOEMAKER/TESTED ([facility]) (test code = AT [place] [address]) [facility] 7703 0 POCT-GLUCOSE [id number] 15:57:00 Test Item Value Reference Range Interpretation Comments POC-GLUCOSE METER 292 mg/dL 70-110 H TESTED AT [place] [address] ([facility]) (test code = TUTU Reese [facility] 1538) 04247 POCT-GLUCOSE [id number] 13:36:00 Test Item Value Reference Range Interpretation Comments POC-GLUCOSE METER 181 mg/dL 70-110 H TESTED AT [place] [address] ([facility]) (test code = TUTU Reese [facility] 1538) 03189 POCT-GLUCOSE [id number] 07:46:00 Test Item Value Reference Range Interpretation Comments POC-GLUCOSE METER 172 mg/dL 70-110 H TESTED AT [place] [address] ([facility]) (test code = TUTU Reese [facility] 1538) 51787 POCT-GLUCOSE [id number] 21:03:00 Test Item Value Reference Range Interpretation Comments POC-GLUCOSE METER 195 mg/dL 70-110 H TESTED AT [place] [address] (BEAKER) (test code = TUTU [place] 1538) 12775 POCT-GLUCOSE [id number] 16:41:00 Test Item Value Reference Range Interpretation Comments POC-GLUCOSE METER 198 mg/dL 70-110 H TESTED AT [place] [address] (BEAKER) (test code = TUTU [place] 1538) [address]10 POCT-GLUCOSE [id number] 12:08:00 Test Item Value Reference Range Interpretation Comments POC-GLUCOSE METER 241 mg/dL 70-110 H TESTED AT [place] [address] (BEAKER) (test code = TUTU Reese [facility] 1538) 11454 POCT-GLUCOSE [id number] 08:27:00 Test Item Value Reference Range Interpretation Comments POC-GLUCOSE METER 300 mg/dL 70-110 H TESTED AT [place] [address] (BEAKER) (test code = TUTU Reese [facility] 1538) [address]97 BASIC METABOLIC [id number] 05:56:00 Test Item Value Reference Range Interpretation [...] NOT APPLICABLE FOR DIALYSIS PATIEN TS. PROTHROMBIN [id number] 04:54:00 Test Item Value Reference Range Interpretation Comments PROTIME (BEAKER) (test code = 14.5 seconds 11.7-14.7 759) INR (BEAKER) (test code = 370) 1.1 <=5.9 RECOMMENDED COUMADIN/WARFARIN INR THERAPY RANGESSTANDARD DOSE: 2.0 - 3.0 Includes: PROPHYLAXIS for venous thrombosis, systemic embolization; TREATMENT for venous thrombosis and/or pulmonary embolus.HIGH RISK: Target INR is 2.5-3.5 for patients with mechanical heart valves.CBC W/PLT COUNT & AUTO [id number] 04:50:00 Test Item Value Reference Range Interpretation [...] PERCENT (BEAKER) (test code = 2801) POCT-GLUCOSE [id number] 22:08:00 Test Item Value Reference Range Interpretation Comments POC-GLUCOSE METER 285 mg/dL 70-110 H TESTED AT [place] [address] ([facility]) (test code = TUTU [place] [facility] 1538) 27956 POCT-GLUCOSE [id number] 16:19:00 Test Item Value Reference Range Interpretation Comments POC-GLUCOSE METER 230 mg/dL 70-110 H TESTED AT [place] [address] ([facility]) (test code = LUISAMT [place] [facility] 1538) [address] RAD, ANKLE, MIN 3 VIEWS, [id number] 12:27:00Reason for exam:->pain edema following fallFINAL REPORT Clinical history: pain edema following fall TECHNIQUE: 3 views of the right ankle COMPARISON: None IMPRESSION: There is soft tissue swelling over the medial malleolus.There is no evidence of fracture or dislocation. There are dorsal and plantar calcaneal spurs. Thereare vascular calcifications. Signed: Car Heller MDReport Verified Date/Time: 02/04/2017 12:27:23 Reading Location: [facility] Radiology Reading Room Electronically signed by: CAR HELLER M.D.on 02/04/2017 12:27 PMPOCT- GLUCOSE [id number] 11:55:00 Test Item Value Reference Range Interpretation Comments POC-GLUCOSE METER 204 mg/dL 70-110 H TESTED AT [place] [address] ([facility]) (test code = TUTU Reese [facility] 1538) [address]28 POCT-GLUCOSE [id number] 08:00:00 Test Item Value Reference Range Interpretation Comments POC-GLUCOSE METER 217 mg/dL 70-110 H TESTED AT [place] [address] ([facility]) (test [facility] = [facility]ese [facility] 1538) 79241 [id number] 07:14:00 Test Item Value Reference Range Interpretation Comments PHOSPHORUS (BEAKER) (test code = 3.8 mg/dL 2.3-4.7 604) [id number] 07:14:00 Test Item Value Reference Range Interpretation Comments MAGNESIUM (BEAKER) (test code = 1.7 mg/dL 1.6-2.6 627) BASIC METABOLIC [id number] 07:14:00 Test Item Value Reference Range Interpretation [...] NOT APPLICABLE FOR DIALYSIS PATIEN TS. POCT-GLUCOSE [id number] 22:31:00 Test Item Value Reference Range Interpretation Comments POC-GLUCOSE METER 288 mg/dL 70-[address] [facility] 67[address] (BEAKER) (test code = [facility] Hugh [facility] 1538) 56543 POCT-GLUCOSE [id number] 17:03:00 Test Item Value Reference Range Interpretation Comments POC-GLUCOSE METER 268 mg/dL 70-[address] [facility] 67[address] (BEAKER) (test code = [facility] 1538) 8[address] POCT-GLUCOSE [id number] 12:31:00 Test Item Value Reference Range Interpretation Comments POC-GLUCOSE METER 214 mg/dL 70-[address] [facility] 67[address] (BEAKER) (test code = TUTU Reese [facility] 1538) [address] CT, BRAIN, WITHOUT [id number] 09:22:00FINAL REPORT CT head without contrast INDICATION: [...] acute on chronic sinusitis. Signed: Charanjit Ibarra MDReport Verified Date/Time: 02/03/2017 09:22:48 Reading Location: [address] Neuro Reading Room POCT-GLUCOSE [id number] 07:19:00 Test Item Value Reference Range Interpretation Comments POC-GLUCOSE METER 218 mg/dL 70-[address] [facility] 67[address] (DAO) (test code = TUTU Reese [facility] 1538) 02197 [id number] 06:12:00 Test Item Value Reference Range Interpretation Comments PHOSPHORUS (BEAKER) (test code = 3.1 mg/dL 2.3-4.7 604) [id number] 06:12:00 Test Item Value Reference Range Interpretation Comments MAGNESIUM (BEAKER) (test code = 1.6 mg/dL 1.6-2.6 627) BASIC METABOLIC [id number] 06:12:00 Test Item Value Reference Range Interpretation [...] NOT APPLICABLE FOR DIALYSIS PATIEN TS. POCT-GLUCOSE [id number] 23:10:00 Test Item Value Reference Range Interpretation Comments POC-GLUCOSE METER 239 mg/dL 70-110 H TESTED AT [place] [address] ([facility]) (test code = [facility] [place] 1538) [address] POCT-GLUCOSE [id number] 17:20:00 Test Item Value Reference Range Interpretation Comments POC-GLUCOSE METER 291 mg/dL 70-110 H TESTED AT [place] [address] ([facility]) (test code = [facility] [place] 1538) [address] POCT-GLUCOSE [id number] 12:39:00 Test Item Value Reference Range Interpretation Comments POC-GLUCOSE METER 274 mg/dL 70-110 H TESTED AT [place] [address] ([facility]) (test code = [facility] [place] 1538) [address] POCT-GLUCOSE [id number] 11:35:00 Test Item Value Reference Range Interpretation Comments POC-GLUCOSE METER 289 mg/dL 70-110 H TESTED AT [place] [address] ([facility]) (test code = [facility] [place] 1538) [address] POCT-GLUCOSE [id number] 11:07:00 Test Item Value Reference Range Interpretation Comments POC-GLUCOSE METER 271 mg/dL 70-110 H TESTED AT [place] [address] (BEAKER) (test code = TUTU [place] 1538) [address] CT, BRAIN, WITHOUT [id number] 10:51:00FINAL REPORT CT head without contrast INDICATION: [...] appearing findings as discussed above. Signed: [facility] Verified Date/Time: 02/02/2017 10:51:15 Reading Location: [address] Neuro Reading Room [id number] 06:07:00 Test Item Value Reference Range Interpretation Comments PHOSPHORUS (BEAKER) (test code = 3.2 mg/dL 2.3-4.7 604) [id number] 06:07:00 Test Item Value Reference Range Interpretation Comments MAGNESIUM (BEAKER) (test code = 2.4 mg/dL 1.6-2.6 627) BASIC METABOLIC [id number] 06:07:00 Test Item Value Reference Range Interpretation [...] NOT APPLICABLE FOR DIALYSIS PATIEN TS. POCT-GLUCOSE [id number] 21:34:00 Test Item Value Reference Range Interpretation Comments POC-GLUCOSE METER 331 mg/dL 70-110 H TESTED AT [place] [address] ([facility]) (test code = [facility] 1538) [address] HEMOGLOBIN [id number] 14:53:00 Test Item Value Reference Range Interpretation Comments HEMOGLOBIN A1C (BEAKER) (test code = 14.8 % 4.3-6.1 H 368) POCT-GLUCOSE [id number] 11:57:00 Test Item Value Reference Range Interpretation Comments POC-GLUCOSE METER 232 mg/dL 70-[address] [facility] 67[address] ([facility]) (test code = [facility] 1538) [address] [id number] 11:44:00 Test Item Value Reference Range Interpretation Comments PHOSPHORUS (BEAKER) (test code = 3.0 mg/dL 2.3-4.7 604) [id number] 11:44:00 Test Item Value Reference Range Interpretation Comments MAGNESIUM (BEAKER) (test code = 1.3 mg/dL 1.6-2.6 L 627) BASIC METABOLIC [id number] 11:44:00 Test Item Value Reference Range Interpretation [...] PATIEN TS. CBC W/PLT COUNT & AUTO [id number] 11:18:00 Test Item Value Reference Range Interpretation [...] PERCENT (BEAKER) (test code = 2801) POCT-GLUCOSE [id number] 08:37:00 Test Item Value Reference Range Interpretation Comments POC-GLUCOSE METER 269 mg/dL 70-[address] [facility] 67[address] (BEAKER) (test code = T[place] 1538) [address] LIPID [id number] 03:12:00 Test Item Value Reference Range Interpretation Comments TRIGLYCERIDES (BEAKER) (test code = 129 mg/dL 540) CHOLESTEROL (BEAKER) (test code = 185 mg/dL 631) HDL CHOLESTEROL (BEAKER) (test code 39 mg/dL = 976) LDL CHOLESTEROL CALCULATED (AKER) 120 mg/dL (test code = 633) Triglyceride [...] Value Reference Range Interpretation Comments RPR SCREEN ([facility]) (test code = Nonreactive Nonreactive 420) POCT-GLUCOSE [id number] 01:15:00 Test Item Value Reference Range Interpretation Comments POC-GLUCOSE METER 297 mg/dL 70-[address] [facility] 67[address] (DAO) (test code = TUTU Reese [facility] 1538) [address] POCT-GLUCOSE [id number] 22:01:00 Test Item Value Reference Range Interpretation Comments POC-GLUCOSE METER 354 mg/dL 70-110 H Notified R Becca SHOEMAKER/TESTED (DAO) (test code = AT [facility] 6720 [facility] 1538) [facility] 7703 0 MR, BRAIN, WITHOUT [id number] 20:46:00Reason for exam:->Ischemic Stroke EvaluationFINAL REPORT MRI [...] Ibarra Verified Date/Time: 01/31/2017 20:46:20 Reading Location: [facility] Reading Room MR, MRA, BRAIN, WITHOUT [id number] 20:36:00 Reason for exam:->Ischemic Stroke EvaluationFINAL REPORT MRA head and neck without contrast INDICATION: Stroke TECHNIQUE: 2-D and 3-D [id number] MRA images of the intra- and extracranial [...] left vertebral artery is not imaged. 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 Mild to moderate left vertebrobasilar confluence, moderate mid basilar artery and severe right and moderate left proximal [employer] stenoses are present. There are suspected severe left supraclinoid ICA stenosis with signal loss. There are mild stenoses of the left proximal MCA and TRUDY origins. No other flow limiting proximal [place] vessels stenosis is seen. Motion [...] severe left supraclinoid ICA and proximal right [employer] stenoses. 4. No hemodynamically significant cervical carotid artery stenosis by NASCET criteria. Signed: Charanjit Ibarra MDReport Verified Date/Time: 01/31/2017 20:36:02 Reading Location: [facility] ReadingRoom MR, MRA, NECK, WITHOUT IV [id number] 20:36:00Reason for exam:->Ischemic Stroke EvaluationFINAL REPORT MRA head and neck without contrast INDICATION: Stroke TECHNIQUE: 2-D and 3-D [id number] MRA images of the intra- and extracranial [...] left vertebral artery is not imaged. 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 Mild to moderate left vertebrobasilar confluence, moderate mid basilar artery and severe right and moderate left proximal [employer] stenoses are present. There are suspected severe left supraclinoid ICA stenosis with signal loss. There are mild stenoses of the left proximal MCA and TRUDY or igins. No other flow limiting proximal [place] vessels stenosis is seen. Motion [...] severe left supraclinoid ICA and proximal right [employer] stenoses. 4. No hemodynamically significant cervical carotid artery stenosis by NASCET criteria. Signed: [facility]jit [facility]barra [facility] Verified Date/Time: 01/31/2017 20:36:02 Reading Location: [facility] Radiology ReadingRoom VITAMIN B12 AND [id number] 13:11:00 Test Item Value Reference Range Interpretation Comments VITAMIN B12 (BEAKER) (test code = 551 pg/mL [id number]) FOLATE (BEAKER) (test code = 362) 15.7 ng/mL >=7.0 [id number] 10:22:00 Test Item Value Reference Range Interpretation Comments HOMOCYSTEINE (BEAKER) (test code = 7.0 umol/L 5.1-15.4 642) POCT-GLUCOSE [id number] 08:22:00 Test Item Value Reference Range Interpretation Comments POC-GLUCOSE METER 200 mg/dL 70-[address] [facility] [address] (BEAKER) (test code = [place] 1538) [address] T4, [id number] 07:04:00 Test Item Value Reference Range Interpretation Comments FREE T4 (BEAKER) (test code = 655) 1.28 ng/dL 0.70-1.48 TSH/FREE T4 IF [id number] 06:34:00 Test Item Value Reference Range Interpretation Comments THYROID STIMULATING HORMONE 0.22 uIU/mL 0.35-4.94 L (BEAKER) (test code = 772) BASIC METABOLIC [id number] 05:53:00 Test Item Value Reference Range Interpretation [...] PATIEN TS. CBC W/PLT COUNT & AUTO [id number] 05:31:00 Test Item Value Reference Range Interpretation [...] % 0-1 PERCENT (BEAKER) (test code = 8470)
[2022-03-19] MEDS ORDERED: NA CHLORIDE 0.9% 1,000 ML ONE (03:41)
[2022-03-19 04:58] LABS: SARS-CoV-2 Antigen Rapid Res Negative (Negative)
[2022-03-19 05:20] LABS: Absolute Lymphocytes (CBC) 0.9 K/uL (0.7-4.9); Hematocrit 29.2 % (36.0-45.0); Lymphocytes % 4.8 % (15.3-44.8); MCV 94.9 fL (80-100); RBC Red Blood Cell Count 3.07 M/uL (3.86-4.86)
[2022-03-19 05:21] LABS: Protime INR 1.71
[2022-03-19 05:43] LABS: Albumin 2.7 g/dL (3.4-5.0); Bilirubin Direct 0.2 mg/dL (0-0.2); Bilirubin Total 0.5 mg/dL (0.2-1.0); Magnesium 2.5 mg/dL (1.6-2.4); Potassium 4.6 mmol/L (3.5-5.1); Protein, Total 6.9 g/dL (6.4-8.2)
[2022-03-19 05:48] LABS: Troponin High Sensitivity 557.6 pg/mL (<58.9)
--- NOTE | 2022-03-19 05:59 | ER ---
Nurse's Notes [facility] Name: Rebecca Hazel Age: 81 yrs Sex: Female : 1940 Arrival Date: 03/19/2022 Time: 02:42 Bed 2 Private MD: Diagnosis: Fall on same level, unspecified;Type 1 diabetes mellitus with hyperglycemia;Morbid (severe) obesity due to excess calories;Contusion of right foot;Contusion of left knee;Contusion of right knee;Non ST elevation AL;Fracture of proximal phalanx of lesser toe(s)-5TH PROXIMAL, RIGHT Presentation: 03/19 02:58 Chief complaint: EMS states: 81 year old female had a near syncope event. she reports ha1 feeling more weak than normal. Coronavirus screen: Vaccine status:. Ebola Screen: No symptoms or risks identified at this time. Initial Sepsis Screen: Does the patient meet any 2 criteria? No. Patient's initial sepsis screen is negative. Does the patient have a suspected source of infection? No. Patient's initial sepsis screen is negative. Risk Assessment: Do you want to hurt yourself or someone else? Patient reports no desire to harm self or others. Onset of symptoms was March 19, 2022. 02:58 Method Of Arrival: EMS: [facility] ha1 02:58 Acuity: DENNIS 3 ha1 Triage Assessment: 03:06 General: Appears uncomfortable, Behavior is calm, cooperative. Pain: Complains of pain ha1 in generalized Pain does not radiate. Pain currently is 7 out of 10 on a pain scale. Quality of pain is described as throbbing, Aggravated by increased activity. EENT: No signs and/or symptoms were reported regarding the EENT system. Neuro: Level of Consciousness is awake, alert, obeys commands, Oriented to person, place, time, situation. Cardiovascular: Capillary refill < 3 seconds Patient's skin is warm and dry. Respiratory: Airway is patent Respiratory effort is even, unlabored, Respiratory pattern is regular, symmetrical. GI: Abdomen is non-distended, obese. : No signs and/or symptoms were reported regarding the genitourinary system. Derm:. Musculoskeletal: Reports weakness in right leg and left leg braking her right arm yesterday. she states " I was here yesterday because I broke my arm". Historical: - Allergies: 03:06 No Known Allergies; ha1 - PMHx: 03:06 Diabetes - IDDM; Hypertension; Hypothyroidism; stroke with right sided weakness; TIA; ha1 - PSHx: 03:06 pacemaker; ha1 - Immunization history:: Adult Immunizations unknown. - Social history:: Smoking status: Patient denies any tobacco usage or history of. - Family history:: not pertinent. Screenin:12 [facility] ED Fall Risk Assessment (Adult) History of falling in the last 3 months, ha1 including since admission Yes- single mechanical fall (1 pt) Confusion or Disorientation No (0 pts) Intoxicated or Sedated No (0 pts) Impaired Gait Yes (1 pt) Mobility Assist Device Used Yes (1 pt) Altered Elimination No (0 pt) Score/Fall Risk Level 3 or more points = High Risk Oriented to surroundings, Maintained a safe environment, Educated pt \\T\\ family on fall prevention, incl call for assistance when getting out of bed, Assessed \\T\\ reinforced patient's understanding of fall precautions, Hourly rounding (assess needs \\T\\ fall precautionary measures) done, Implemented a Fall Risk Plan of Care. Abuse screen: Denies threats or abuse. Denies injuries from another. Nutritional screening: No deficits noted. Tuberculosis screening: No symptoms or risk factors identified. Assessment: 05:14 General: Appears in no apparent distress. comfortable, Behavior is calm, cooperative. lg3 Pain: Complains of pain in back and right arm. Neuro: Ram Agitation-Sedation Scale (RASS): 0 - Alert and Calm Level of Consciousness is awake, alert, obeys commands, Oriented to person, place, time, situation. Cardiovascular: No deficits noted. Denies chest pain, shortness of breath, Capillary refill < 3 seconds Clubbing of nail beds is absent JVD is absent Patient's skin is warm and dry. Respiratory: Reports cough that is Airway is patent Trachea midline Respiratory effort is even, unlabored, Respiratory pattern is regular, symmetrical. GI: Abdomen is round obese. : No deficits noted. No signs and/or symptoms were reported regarding the genitourinary system. EENT: No deficits noted. No signs and/or symptoms were reported regarding the EENT system. Derm: Skin is intact, is fragile, is thin, Skin is dry, Skin is normal, Skin temperature is warm. Musculoskeletal: Circulation, motion, and sensation intact. Range of motion: limited in right shoulder and right elbow Reports recent fall witch resulted in a broken right arm. pt currently in sling. 06:14 Reassessment: Patient appears in no apparent distress at this time. No changes from lg3 previously documented assessment. Patient and/or family updated on plan of care and expected duration. Pain level reassessed. Patient is alert, oriented x 3, equal unlabored respirations, skin warm/dry/pink. General:. 07:00 Reassessment: Patient appears in no apparent distress at this time. No changes from jl7 previously documented assessment. Patient and/or family updated on plan of care and expected duration. Pain level reassessed. Patient is alert, oriented x 3, equal unlabored respirations, skin warm/dry/pink. 08:00 Reassessment: Patient appears in no apparent distress at this time. No changes from jl7 previously documented assessment. Patient and/or family updated on plan of care and expected duration. Pain level reassessed. Patient is alert, oriented x 3, equal unlabored respirations, skin warm/dry/pink. Vital Signs: 02:58 BP 113 / 47; Pulse 82; Resp 20; Temp 97.6(O); Pulse Ox 95% on R/A; Weight 99.79 kg; ha1 Height 5 ft. 6 in. (167.64 cm); 06:15 BP 106 / 90; Pulse 80; Resp 16; Pulse Ox 97% on 3 lpm NC; lg3 07:48 BP 90 / 61; Pulse 80; Resp 15 S; Pulse Ox 98% on 2 lpm NC; Pain 10/10; jl7 02:58 Body Mass Index 35.51 (99.79 kg, 167.64 cm) ha1 ED Course: 02:42 Patient arrived in ED. la1 02:44 Scottie Boateng MD is Attending Physician. anil 02:58 Nicole Love, THAIS is Primary Nurse. ha1 03:06 Triage completed. ha1 03:06 Arm band placed on left wrist. ha1 03:06 Patient has correct armband on for positive identification. Bed in low position. Call ha1 light in reach. Side rails up X 1. Adult w/ patient. 03:50 XRAY Chest (1 view) In Process Unspecified. EDMS 03:50 Knee Right 3 View XRAY In Process Unspecified. EDMS 03:50 Knee Left 3 View XRAY In Process Unspecified. EDMS 03:50 Foot Left 3 View XRAY In Process Unspecified. EDMS 04:55 Missed attempt(s): 20 gauge in left antecubital area. Bleeding controlled, band aid bb applied, catheter tip intact. 05:00 Initial lab(s) drawn, by me, sent to lab. Accessed peripheral vein via ultrasound, bb utilizing dynamic ultrasound technique Powerglide midline 18g 10cm to left upper arm using hospital protocol with good blood return and flushes easily pt tolerated well. 05:10 Basic Metabolic Panel Sent. lg3 05:10 CBC with Diff Sent. lg3 05:10 LFT's Sent. lg3 05:10 Magnesium Sent. lg3 05:10 NT PRO-BNP Sent. lg3 05:10 PT-INR Sent. lg3 05:10 Troponin HS Sent. lg3 05:14 Client placed on continuous cardiac and pulse oximetry monitoring. NIBP monitoring lg3 applied. reconciler on. Door closed. Noise minimized. Warm blanket given. Family accompanied patient. 05:42 Foot Right 3 View XRAY In Process Unspecified. EDMS 05:49 Zayda Khan MD is Hospitalizing Provider. anil 08:34 No provider procedures requiring assistance completed. Patient admitted, IV remains in jl7 place. intact, No redness/swelling at site. Administered Medications: 05:17 Drug: NS 0.9% 1000 ml Route: IV; Rate: 1 bolus; Site: left upper arm; lg3 07:00 Follow up: Response: No adverse reaction; IV Status: Completed infusion; IV Intake: jl7 1000ml Medication: 05:14 VIS not applicable for this client. lg3 Intake: 07:00 IV: 1000ml; Total: 1000ml. jl7 Outcome: 05:58 Decision to Hospitalize by Provider. anil 09:32 Admitted to Med/surg accompanied by tech, via stretcher, room 430. jl7 09:32 Condition: stable 09:32 Discharge instructions given to patient, Instructed on the need for admit, Demonstrated understanding of instructions. 09:33 Patient left the ED. jl7 Signatures: Dispatcher [employer] EDCA Scottie Boateng MD MD cha Ballard, Brenda, RN RN bb Jesus Thomas, SUPERVISOR [employer]OMING M[employer]-C SUPERVISOR [employer]-Cla1 Jeanne Ponce, RN RN jl7 Stephanie Linares, RN RN lg3 Nicole Love, RN RN ha1
--- NOTE | 2022-03-19 05:59 | EDPHYS ---
Physician Documentation [facility] Name: Rebecca Hazel Age: 81 yrs Sex: Female : 1940 Arrival Date: 03/19/2022 Time: 02:42 Bed 2 Private MD: ED Physician Scottie Boateng HPI: 03/19 03:25 This 81 yrs old Female presents to ER via EMS with complaints of Near Syncope.anil 03:25 The patient has experienced near-syncope, felt faint. Onset: The symptoms/episode anil began/occurred just prior to arrival. Duration: This was a single episode, that lasted an unknown period of time. Context: the episode(s) was witnessed, by family, . Associated injury: Left lower extremity: left knee, pain, decreased range of motion, Right lower extremity: lateral aspect of right foot and right knee, decreased range of motion, pain. Associated signs and symptoms: Pertinent positives: weakness. Current symptoms: Currently, the patient is not experiencing any symptoms. The patient has not experienced similar symptoms in the past. Historical: - Allergies: 03:06 No Known Allergies; ha1 - PMHx: 03:06 Diabetes - IDDM; Hypertension; Hypothyroidism; stroke with right sided weakness; TIA; ha1 - PSHx: 03:06 pacemaker; ha1 - Immunization history:: Adult Immunizations unknown. - Social history:: Smoking status: Patient denies any tobacco usage or history of. - Family history:: not pertinent. ROS: 03:25 Constitutional: Negative for fever, chills, and weight loss, Eyes: Negative for injury, anil pain, redness, and discharge, ENT: Negative for injury, pain, and discharge, Neck: Negative for injury, pain, and swelling, Cardiovascular: Negative for chest pain, palpitations, and edema, Respiratory: Negative for shortness of breath, cough, wheezing, and pleuritic chest pain, Abdomen/GI: Negative for abdominal pain, nausea, vomiting, diarrhea, and constipation, Back: Negative for injury and pain, : Negative for injury, bleeding, discharge, and swelling, Skin: Negative for injury, rash, and discoloration, Neuro: Negative for headache, weakness, numbness, tingling, and seizure, Psych: Negative for depression, anxiety, suicide ideation, homicidal ideation, and hallucinations, Allergy/Immunology: Negative for hives, rash, and allergies, Endocrine: Negative for neck swelling, polydipsia, polyuria, polyphagia, and marked weight changes, Hematologic/Lymphatic: Negative for swollen nodes, abnormal bleeding, and unusual bruising. 03:25 MS/extremity: Positive for decreased range of motion, pain, of the right foot, right leg and left leg. Exam: 03:25 Constitutional: This is a well developed, well nourished patient who is awake, alert, anil and in no acute distress. Head/Face: Normocephalic, atraumatic. Eyes: Pupils equal round and reactive to light, extra-ocular motions intact. Lids and lashes normal. Conjunctiva and sclera are non-icteric and not injected. Cornea within normal limits. Periorbital areas with no swelling, redness, or edema. ENT: Nares patent. No nasal discharge, no septal abnormalities noted. Tympanic membranes are normal and external auditory canals are clear. Oropharynx with no redness, swelling, or masses, exudates, or evidence of obstruction, uvula midline. Mucous membranes moist. Neck: Trachea midline, no thyromegaly or masses palpated, and no cervical lymphadenopathy. Supple, full range of motion without nuchal rigidity, or vertebral point tenderness. No Meningismus. Chest/axilla: Normal chest wall appearance and motion. Nontender with no deformity. No lesions are appreciated. Cardiovascular: Regular rate and rhythm with a normal S1 and S2. No gallops, murmurs, or rubs. Normal PMI, no JVD. No pulse deficits. Respiratory: Lungs have equal breath sounds bilaterally, clear to auscultation and percussion. No rales, rhonchi or wheezes noted. No increased work of breathing, no retractions or nasal flaring. Abdomen/GI: Soft, non-tender, with normal bowel sounds. No distension or tympany. No guarding or rebound. No evidence of tenderness throughout. Back: No spinal tenderness. No costovertebral tenderness. Full range of motion. Female : Normal external genitalia. Skin: Warm, dry with normal turgor. Normal color with no rashes, no lesions, and no evidence of cellulitis. Neuro: Awake and alert, GCS 15, oriented to person, place, time, and situation. Cranial nerves II-XII grossly intact. Motor strength 5/5 in all extremities. Sensory grossly intact. Cerebellar exam normal. Normal gait. Psych: Awake, alert, with orientation to person, place and time. Behavior, mood, and affect are within normal limits. 05:59 ECG was reviewed by the Attending Physician. [facility] Vital Signs: 02:58 BP 113 / 47; Pulse 82; Resp 20; Temp 97.6(O); Pulse Ox 95% on R/A; Weight 99.79 kg; ha1 Height 5 ft. 6 in. (167.64 cm); 06:15 BP 106 / 90; Pulse 80; Resp 16; Pulse Ox 97% on 3 lpm NC; lg3 07:48 BP 90 / 61; Pulse 80; Resp 15 S; Pulse Ox 98% on 2 lpm NC; Pain 10/10; jl7 02:58 Body Mass Index 35.51 (99.79 kg, 167.64 cm) ha1 MDM: 02:44 Patient medically screened. [facility] 03:28 Differential Diagnosis: cardiac arrhythmia, cerebrovascular accident, idiopathic [facility] syncope, transient ischemic attack, vasovagal episode. Data reviewed: vital signs, nurses notes, lab test result(s), EKG, radiologic studies, CT scan, plain films. Consideration of Admission/Observation Patient was admitted/placed on observation. Escalation of care including admission/observation considered. Test considered but Not performed: Ultrasound no bilateral le usg. 03:29 I considered the following discharge prescriptions or medication management in the [facility] emergency department Medications were administered in the Emergency Department. See MAR. Historians other than the Patient: Spouse/Significant Other: . Care significantly affected by the following chronic conditions: Diabetes, Hypertension, Obesity. 03/19 03:17 Order name: Basic Metabolic Panel; Complete Time: 06:52 [facility] 03/19 03:17 Order name: CBC with Diff; Complete Time: 05:28 [facility] 03/19 03:17 Order name: LFT's; Complete Time: 06:52 [facility] 03/19 03:17 Order name: Magnesium; Complete Time: 06:52 [facility] 03/19 03:17 Order name: NT PRO-BNP; Complete Time: 06:52 [facility] 03/19 03:17 Order name: PT-INR; Complete Time: 05:28 [facility] 03/19 03:17 Order name: Troponin HS; Complete Time: 06:52 [facility] 03/19 03:17 Order name: Lipase; Complete Time: 06:52 [facility] 03/19 03:17 Order name: Urine Culture anil 03/19 03:17 Order name: SARS RAPID; Complete Time: 05:28 anil 03/19 07:45 Order name: Basic Metabolic Panel EDMS 03/19 07:45 Order name: Basic Metabolic Panel EDMS 03/19 07:45 Order name: CBC with Automated Diff EDMS 03/19 07:45 Order name: CBC with Automated Diff EDMS 03/19 03:17 Order name: XRAY Chest (1 view) anil 03/19 03:17 Order name: EKG; Complete Time: 03:18 anil 03/19 03:25 Order name: Knee Right 3 View XRAY anil 03/19 03:25 Order name: Knee Left 3 View XRAY anil 03/19 03:25 Order name: Foot Left 3 View XRAY anil 03/19 05:27 Order name: Foot Right 3 View XRAY anil 03/19 07:45 Order name: Echo with Doppler EDMS 03/19 07:45 Order name: Echo with Doppler EDMS 03/19 07:45 Order name: PTT, Activated Partial Thromb EDMS 03/19 07:45 Order name: PTT, Activated Partial Thromb EDMS 03/19 07:45 Order name: Troponin High Sensitivity EDMS 03/19 07:45 Order name: Troponin High Sensitivity EDMS 03/19 07:45 Order name: Troponin High Sensitivity EDMS / 07:46 Order name: Urinalysis W/Microscopic EDMS 03/19 03:17 Order name: Cardiac monitoring; Complete Time: 05:10 anil 03/19 03:17 Order name: EKG - Nurse/Tech; Complete Time: 05:58 anil 03/19 03:17 Order name: IV Saline Lock; Complete Time: 05:10 anil 03/19 03:17 Order name: Labs collected and sent; Complete Time: 05:10 anil 03/19 03:17 Order name: O2 Per Protocol; Complete Time: 05:10 anil 03/19 03:17 Order name: O2 Sat Monitoring; Complete Time: 05:10 anil 03/19 06:50 Order name: Post-op shoe anil 03/19 07:45 Order name: CONS Physician Consult EDMS 03/19 07:45 Order name: CONS Physician Consult EDMS 03/19 07:45 Order name: Heart Healthy EDMS EC:59 Rate is 81 beats/min. Rhythm is regular. QRS [place] is Normal. TX interval is normal. QRS anil interval is normal. QT interval is normal. No Q waves. T waves are Normal. No ST changes noted. Clinical impression: NSR w/ Non-specific ST/T Changes and No evidence of ischemia. Interpreted by me. Reviewed by me. Administered Medications: 05:17 Drug: NS 0.9% 1000 ml Route: IV; Rate: 1 bolus; Site: left upper arm; lg3 07:00 Follow up: Response: No adverse reaction; IV Status: Completed infusion; IV Intake: jl7 1000ml Disposition Summary: 03/19/22 05:58 Hospitalization Ordered Hospitalization Status: Inpatient Admission anil Provider: Zayda Khan cha Location: Telemetry/MedSurg (Inpatient) anil Condition: Fair anil Problem: new anil Symptoms: have improved anil Bed/Room Type: Standard anil Room Assignment: 430(03/19/22 07:55) ja1 Diagnosis - Fall on same level, unspecified anil - Type 1 diabetes mellitus with hyperglycemia anil - Morbid (severe) obesity due to excess calories anil - Contusion of right foot anil - Contusion of left knee anil - Contusion of right knee anil - Non ST elevation IN anil - Fracture of proximal phalanx of lesser toe(s) - 5TH PROXIMAL, RIGHT anil Forms: - Medication Reconciliation Form anil - SBAR form anil Signatures: Dispatcher [employer] EDScottie Randhawa MD MD cha Attema, Lee, TECHNICAL SOLUTIONS DIRECTOR-C TECHNICAL SOLUTIONS DIRECTOR-Cla1 Tee Camara RN RN ja1 Stephanie Linares RN RN lg3 Nicole Love RN RN ha1 Jeanne Ponce RN jl7 Corrections: (The following items were deleted from the chart) 07:55 05:58 anil ja1
[2022-03-19] MEDS ORDERED: ACETAMINOPHEN 500 MG TAB PO PRN (07:40)
[2022-03-19] MEDS ORDERED: NA CHLORIDE 0.9% 1,000 ML IV SCH (08:00)
[2022-03-19] MEDS ORDERED: METOPROLOL TAR 25 MG TAB PO SCH (09:00)
[2022-03-19] MEDS ORDERED: ENOXAPARIN 30 MG/0.3 ML SQ SCH (09:00)
[2022-03-19] MEDS ORDERED: DOCUSATE NA 100 MG CAP PO PRN (10:23)
[2022-03-19] MEDS: ASPIRIN EC 81 MG TAB PO SCH (10:26)
[2022-03-19] MEDS: CEFTRIAXONE 1,000 MG in NA CHLORIDE 0.9% 50 ML IVPB SCH (10:27)
--- NOTE | 2022-03-19 11:56 | CON ---
Date of Consultation: 03/19/2022 Reason For Consultation: Elevated BUN and creatinine, fluid management. 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 The patient last seen back in January. At that time, we increased Lasix. The patient apparently came to the ER with fall and fracture to wrist, treated, recovered and discharged. The patient had recurrent fall. For that reason, the patient reported back. Upon arri svetlana to the hospital, found to have elevation in BUN and creatinine, creatinine 4.6 with GFR of 9. Th e patient denied taking any nonsteroidal. No other change in her medication except the Lasix 80 mg. The patient is still complaining from shortness of breath. As home medications, there is no insulti medication. Past Medical History: Includes; 1.Hypertension. 2.Hyperlipidemia. 3.CAD with normal ejection fraction. 4.CVA with right-sided hemiparesis. 5.Peripheral vascular disease. 6.Chronic kidney disease, stage 4, disproportion in kidney size 10/23 with nephrotic range of protein uria secondary to diabetes, renal vascular disease, hypertension nephrosclerosis, baseline creatinine used to be in the 2 with GFR around 23. 7.PAD. 8.Anemia of chronic kidney disease. 9.Diabetes. Home Medications: Include allopurinol 100, losartan 25, metoprolol, levothyroxine, labetalol, Pepcid , Lasix 80, docusate, clonidine, atorvastatin, Eliquis. Review of Systems: Head and Neck: No red eye. No ear pain. GI: Has nausea. No vomiting. : No polyuria. No dysuria. No hematuria. Proofer Prepress: No vaginal discharge. Respiratory: Has shortness of breath. Has orthopnea. Cardiovascular: Has leg swelling. Endocrine: No polydipsia. Skin: No rash. Neuro: Has recurrent fall. Musculoskeletal: Has leg pain. Family History: Positive for diabetes and hypertension. Social History: Denied smoking, denied drinking, denied drugs abuse. Past Surgical History: Includes cataract, hysterectomy, thyroidectomy, endarterectomy, Medtronic ICD placement. Current Medications: The patient on include; 1.Ceftriaxone. 2.Eliquis. 3.Atorvastatin. 4.Clonidine. 5.Metoprolol 25 daily. 6.Gabapentin. 7.Pepcid. 8.Levothyroxine. 9.IV fluid. 10.Morphine. 11.Heparin drip. 12.Lasix 80 daily. 13.Docusate. Physical Examination: Vital Signs: When I saw the patient; blood pressure of 122/53, pulse of 80, afebrile. Chest: Crackles bilateral. Heart: S1, S2. Systolic murmur. Abdomen: Soft, nontender. Extremities: Plus edema. Neurologic: Alert. Laboratory Data: Sodium 134, potassium 4.6, bicarb 26, BUN 82, creatinine 4.6, GFR of 9. Lab back i n February; creatinine 2.6, GFR of 18, calcium 9.2, phosphorus 3.5, uric acid 6.4, albumin 3. Troponi n 2600, BNP 3400. Hemoglobin 9.5. Chest x-ray; cardiomegaly with congestion. Assessment And Plan: 1.Acute kidney injury, possible secondary to cardiorenal, secondary to poor perfusion ATN, still ove r volume. I am doing to discontinue IV fluid, switch the Lasix to IV drip, and we will monitor the p atient. I am going to go ahead and send for renal ultrasound and we will monitor. The patient may n eed cardiac cath, which we agreed with given the advanced kidney disease and given the non-ST elevati on myocardial infarction with current deterioration. I had discussion with the patient regarding the etiology and the patient may need renal replacement therapy with or without the cardiac cath. We wi ll try with Lasix drip and we will follow up improvement. If did not improve especially with cardiac cath, the patient will initiate renal replacement therapy. I do not see the emergency to initiate i t right now given the presence of non-ST elevation myocardial infarction. I am going to send for nissa al ultrasound and basic workup and we will follow up. 2.Hypertension. I am going to try to utilize blood pressure for more diuresis. Continue current me dication. Change Lasix to Lasix drip. 3.Over volume. We will start the patient on Lasix drip. We will follow up with Cardiology. 4.Anemia of chronic kidney disease. We will send for anemia workup. I do not see the need for aden sfusion for the time being. 5.Diabetes as by primary. 6.Cerebrovascular accident, stable. 7.Coronary artery disease with non-ST elevation myocardial infarction. We will follow up with Bienvenido srinivasan. The patient if needed cardiac cath, mostly going to end up on dialysis. Explained the patien t risks, benefits, alternatives, verbalized understanding. We will follow up. Time spent examining the patient face to face, reviewing data, lab and radiology, placing order, disc ussing the case with the patient, discussing the case with the restaurant team member including hospitalist and nursing staff more than 65 minutes . YUDITH Voice ID: [id number] Report ID: [id number]
--- NOTE | 2022-03-19 13:17 | RAD REPORT ---
EXAM DESCRIPTION: US - Renal Ultrasound-Complete - 03/19/2022 12:58 pm CLINICAL HISTORY: Horacio Flank pain COMPARISON: Renal Ultrasound-Complete dated 08/28/2019 FINDINGS: Mildly echogenic kidneys bilaterally noted. Small benign appearing bilateral renal cysts. The right kidney measures 9.6 x 5.7 x 5.4 cm. No hydronephrosis, focal mass or perinephric fluid. The left kidney measures 11.2 x 5.6 x 5.8 cm. No hydronephrosis, focal mass or perinephric fluid. The urinary bladder is incompletely distended without gross abnormality seen. IMPRESSION: Mildly echogenic kidneys bilaterally. This likely indicates underlying medical renal dis ease.
[2022-03-19] MEDS: FUROSEMIDE 100 MG in NA CHLORIDE 0.9% 90 ML IV SCH ×3 (13:34→23:22)
[2022-03-19] MEDS: HEPARIN/D5W 25,000 UNIT/500 ML BAG IV SCH (13:34)
--- NOTE | 2022-03-19 15:52 | RAD REPORT ---
EXAM DESCRIPTION: RAD - Chest Single View - 03/19/2022 3:48 am CLINICAL HISTORY: The patient is 81 years old and is Female; COUGH TECHNIQUE: Frontal view of the chest. COMPARISON: No relevant prior studies available. FINDINGS: LUNGS: Unremarkable. No consolidation. PLEURAL SPACE: Unremarkable. No pneumothorax. HEART: Cardiac silhouette is prominent. MEDIASTINUM: Unremarkable. BONES/JOINTS: Mild degenerative change of the bones is noted. TUBES, LINES AND DEVICES: A left-sided pacemaker is present. UPPER ABDOMEN: Unremarkable as visualized. IMPRESSION: No acute cardiopulmonary process. Electronically signed by: Dalila Guadalupe MD 03/19/2022 4:04 AM TURNAROUND ENGINEER Due to temporary technical issues with the PACS/Fluency reporting system, reports are being signed by the in house radiologists without review as a courtesy to insure prompt reporting. The interpreting radiologist is fully responsible for the content of the report.
--- NOTE | 2022-03-19 15:54 | RAD REPORT ---
EXAM DESCRIPTION: RAD - Knee Right 3 View - 03/19/2022 3:48 am CLINICAL HISTORY: The patient is 81 years old and is Female; PAIN TECHNIQUE: Three views of the right knee. COMPARISON: No relevant prior studies available. FINDINGS: BONES/JOINTS: Tricompartmental joint space narrowing is present. Hypertrophy of the inte rcondylar eminence is noted. There is no joint effusion. No acute fracture. No dislocation. SOFT TISSUES: Unremarkable. VASCULATURE: Extensive atherosclerosis of the vasculature is present. IMPRESSION: No acute findings in the right knee. Electronically signed by: Dalila Guadalupe MD 03/19/2022 4:05 AM ESTIMATOR AND DRAFTER SUPERVISOR Due to temporary technical issues with the PACS/Fluency reporting system, reports are being signed by the in house radiologists without review as a courtesy to insure prompt reporting. The interpreting radiologist is fully responsible for the content of the report.
--- NOTE | 2022-03-19 15:57 | RAD REPORT ---
EXAM DESCRIPTION: RAD - Knee Left 3 View - 03/19/2022 3:49 am CLINICAL HISTORY: The patient is 81 years old and is Female; PAIN TECHNIQUE: Three views of the left knee. COMPARISON: No relevant prior studies available. FINDINGS: BONES/JOINTS: Tricompartmental joint space narrowing and degenerative change is present. Hypertrophy of the intercondylar eminence is noted. There is no joint effusion. No acute fracture. No dislocation. SOFT TISSUES: Unremarkable. VASCULATURE: Atherosclerosis of the vasculature is present. IMPRESSION: No acute findings in the left knee. Electronically signed by: Dalila Guadalupe MD 03/19/2022 4:05 AM SMOKED MEAT PREPARER Due to temporary technical issues with the PACS/Fluency reporting system, reports are being signed by the in house radiologists without review as a courtesy to insure prompt reporting. The interpreting radiologist is fully responsible for the content of the report.
--- NOTE | 2022-03-19 15:59 | RAD REPORT ---
EXAM DESCRIPTION: RAD - Foot Right 3 View - 03/19/2022 5:41 am CLINICAL HISTORY: The patient is 81 years old and is Female; PAIN TECHNIQUE: Three views of the right foot. COMPARISON: No relevant prior studies available. FINDINGS: Bones/joints: Suspect acute fracture in the fifth proximal phalanx on the frontal film. Diffuse bone demineralization. Degenerative changes in the first MTP joint. Calcaneus spur. No dislocation. Soft tissues: Diffuse soft tissue swelling. No soft tissue gas. No radiopaque foreign body. IMPRESSION: Suspect acute fracture in the fifth proximal phalanx on the frontal film. Electronically signed by: Kita Navarro MD 03/19/2022 6:05 AM CERAMIC COATER MACHINE Due to temporary technical issues with the PACS/Fluency reporting system, reports are being signed by the in house radiologists without review as a courtesy to insure prompt reporting. The interpreting radiologist is fully responsible for the content of the report.
--- NOTE | 2022-03-19 16:01 | RAD REPORT ---
EXAM DESCRIPTION: RAD - Foot Left 3 View - 03/19/2022 3:49 am CLINICAL HISTORY: The patient is 81 years old and is Female; PAIN TECHNIQUE: Frontal, lateral and oblique views of the left foot. COMPARISON: No relevant prior studies available. FINDINGS: BONES/JOINTS: Polyps valgus deformity is present. The bones are mildly osteopenic. Infer ior calcaneal spurring is noted. Deformity of the second proximal phalanx suggesting a prior healed f racture is noted. No dislocation. SOFT TISSUES: Unremarkable. No radiopaque foreign body. IMPRESSION: No acute findings in the left foot. Electronically signed by: Dalila Guadalupe MD 03/19/2022 4:06 AM BASE PLY HAND Due to temporary technical issues with the PACS/Fluency reporting system, reports are being signed by the in house radiologists without review as a courtesy to insure prompt reporting. The interpreting radiologist is fully responsible for the content of the report.
[2022-03-19] MEDS ORDERED: D10W 250 ML BAG IV PRN (17:12)
[2022-03-19] MEDS ORDERED: GLUCAGON 1 MG/VIAL IM PRN (17:12)
[2022-03-19] MEDS: METOPROLOL XL 25 MG TAB PO SCH ×2 (17:30→20:54)
[2022-03-19] MEDS: NPH (HUMAN) 100 UNITS/ML INSULIN SQ SCH (17:30)
--- NOTE | 2022-03-19 18:53 | CON ---
Date of Consultation: 03/19/2022 Reason For Consultation: Elevated troponin. History Of Present Illness: An 81-year-old female, presented to the emergency room with near syncopa l episode. She did not pass out, but she had a fall. She claims that she did not lose her conscious ness, but she was feeling dizzy. Denied having any chest pain or shortness of breath, orthopnea. Th e patient appears to be slightly confused, but this is likely her baseline and at the present time, s he was evaluated by bedside and she has no symptoms. Past Medical History: Hypertension, dyslipidemia, CVA, peripheral vascular disease, chronic kidney d isease stage 4, creatinine baseline is around 2, anemia, and diabetes. Medications: Refer to reconciliation sheet for detailed list. Allergies: NO KNOWN DRUG ALLERGIES. Family History: No premature coronary artery disease or cancer. Social History: She does not smoke or drink. Does not use any drugs. Review of Systems: All systems reviewed and they were negative except what mentioned in HPI. Physical Examination: Vital Signs: Reviewed. Head and Neck: Pupils are equal, reactive to light. Intact eye movements. No JVD. No cervical lym phadenopathy. Neck is supple. Thyroid is not enlarged. Lungs: Clear to auscultation bilaterally. No rhonchi, wheezing, or crackles. No accessory muscle u se. Heart: Regular rate and rhythm. No extra sounds. Abdomen: Soft, nontender. Bowel sounds positive. No organomegaly. No masses or hernia. No rigidi ty or rebound. Extremities: No edema, clubbing, or cyanosis. Intact pulses. Skin: No rash. Neurologic: Alert, awake, oriented x3. No acute focal deficits appreciated. Investigations: Troponin peaked at 5143, BUN 84, creatinine 4.6. Assessment And Recommendations: 1.Elevated troponin, possible non-ST elevation myocardial infarction; however, patient has no chest pain, but she is diabetic. Trend troponin until it trends down. Due to the advanced kidney disease, we will discuss with the further with Nephrology, maybe gentle hydration over the next 36 hours and we will plan for coronary angiogram on Friday. Meanwhile, continue aspirin and heparin drip for ther apeutic PTT and continue beta-breanne. Obtain echocardiogram. 2.Dyslipidemia. Continue statin. 3.Advanced kidney disease. Definitely, her creatinine is above her baseline. 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 Recommend gentle hydration. We will plan for coronary angiogram on ss she becomes symptomatic soon as the patient has no chest pain at the present time. SR/MODL Voice ID: [id number] Report ID: [id number]
[2022-03-19] MEDS: GABAPENTIN 100 MG CAP PO SCH (20:42)
[2022-03-19] MEDS: FAMOTIDINE 20 MG TAB PO SCH (20:42)
[2022-03-19] MEDS: ATORVASTATIN 80 MG TAB PO SCH (20:42)
[2022-03-19] MEDS: cloNIDine HCL 0.1 MG TAB PO SCH (20:53)
[2022-03-19] MEDS ORDERED: APIXABAN 5 MG TABLET PO SCH (21:00)
[2022-03-19] MEDS: INSULIN 70/30 100 UNITS/ML SQ SCH (21:03)
[2022-03-20] MEDS: FUROSEMIDE 100 MG in NA CHLORIDE 0.9% 90 ML IV SCH ×6 (03:00→23:26)
--- NOTE | 2022-03-20 06:01 | P.HP ---
Certification for Inpatient Patient admitted to: Inpatient With expected LOS: >2 Midnights Patient will require the following post-hospital care: Shelter Practitioner: I am a practitioner with admitting privileges, knowledge of patient current condition, hospital course, and medical plan of care. Services: Services provided to patient in accordance with Admission requirements found in Title 42 Section 412.3 of the Code of Federal Regulations Patient History Date of Service: 03/19/22 Reason for admission: ACUTE KIDNEY INJURY History of Present Illness: patient is an 81-year-old female who presents to the emergency room with acute kidney failure. She fell a few days ago and has fallen once again. She suffered a comminuted moderately displaced humeral fracture appears to be supracondylar. This was splinted and patient is to follow up with Dr. Wiggins. At home patient fell once again. patient came to our hospital and she was found to have acute renal insufficiency. Patient's troponins are also significantly elevated. Patient is not having significant chest pain. Nephrology consultation as well as cardiology consultation is pending. Patient will also need to be evaluated for possible hemodialysis. Patient will be in the hospital for 4-5 days. Allergies No Known Allergies Allergy (Verified 08/27/19 22:08) Home Medications: Atorvastatin Calcium [Lipitor] 1 tab PO BEDTIME 05/08/17 Duloxetine [Cymbalta *] 1 cap PO DAILY 05/08/17 Famotidine [Pepcid*] 1 tab PO BEDTIME 05/08/17 Apixaban [Eliquis] 1 tab PO BID 08/28/19 Docusate Sodium 100 mg PO DAILY PRN 08/28/19 Furosemide 80 mg PO DAILY 08/28/19 Gabapentin 200 mg PO BEDTIME 08/28/19 Hum Insulin NPH/Reg Insulin Hm [Humulin 70-30 Vial] 25 unit SQ BID 08/28/19 Acetaminophen with Codeine [Acetaminophen-Cod #3 Tablet] 1 tab PO PRN PRN 03/19/22 Levothyroxine Sodium [Levothyroxine] 175 mcg PO DAILY 03/19/22 Metoprolol Succinate [Toprol Xl*] 25 mg PO DAILY 03/19/22 cloNIDine HCL [Catapres*] 0.1 mg PO BID 03/19/22 - Past Medical/Surgical History Has patient received pneumonia vaccine in the past: Yes Diabetic: Yes -: 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 -: IDDiabetic -: HTN -: foot infection 04/2017 -: NEUROPATHY -: HLD -: HYPOTHYROIDISM -: 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 -: chronic osteomyelitis with non-healing ulcer right great toe s/p fall(2017) -: afib vs supraventricular tachycardia -: thyroidectomy -: cataract sx -: hysterectomy - Family History Mother Medical History: Hypertension Father Medical History: Diabetes - Social History Smoking Status: Never smoker Alcohol use: No CD- Drugs: No Caffeine use: Yes Place of Residence: Home Review of Systems 10-point ROS is otherwise unremarkable Physical Examination - Vital Signs Temperature: 97.3 F Blood Pressure: 107/60 Pulse: 80 Respirations: 18 Pulse Ox (%): 99 - Physical Exam General: Alert, In no apparent distress, Oriented x3 HEENT: Atraumatic, PERRLA, Mucous membr. moist/pink, EOMI, Sclerae nonicteric Neck: Supple, 2+ carotid pulse no bruit, No LAD, Without JVD or thyroid abnormality Respiratory: Clear to auscultation bilaterally, Normal air movement Cardiovascular: Regular rate/rhythm, Normal S1 S2 Gastrointestinal: Normal bowel sounds, No tenderness Musculoskeletal: Tenderness, Other ( Upper extremity splint) Integumentary: No rashes Neurological: Normal gait, Normal speech, Normal strength at 5/5 x4 extr, Normal tone, Normal affect Lymphatics: No axilla or inguinal lymphadenopathy Assessment & Plan - Problems (Diagnosis) (1) ACS (acute coronary syndrome) Current Visit: Yes Status: Acute (2) Humeral fracture Current Visit: Yes Status: Acute (3) Acute renal insufficiency Current Visit: No Status: Acute (4) Atrial fibrillation Current Visit: No Status: Acute (5) Diabetes Current Visit: No Status: Acute (6) Nephrotic syndrome Current Visit: No Status: Acute - Plan Plan: 1. Gentle hydration 2. Heparin drip 3. cardiology and nephrology consultation 4. orthopedic consultation 5. Physical therapy evaluation 6. long-term facility placement 7. Strict blood pressure and blood sugar control 8. GI/DVT prophylaxis - Advance Directives Does patient have a Living Will: No Does patient have a Durable POA for Healthcare: No
[2022-03-20] MEDS ORDERED: LEVOTHYROXINE SOD 0.075 MG TAB PO SCH (06:30)
[2022-03-20] MEDS ORDERED: LEVOTHYROXINE SOD 0.1 MG TAB PO SCH (06:30)
[2022-03-20 06:49] LABS: Absolute Lymphocytes (CBC) 0.9 K/uL (0.7-4.9); Hematocrit 25.4 % (36.0-45.0); Lymphocytes % 5.9 % (15.3-44.8); MCV 94.6 fL (80-100); MPV 7.9 fL (7.6-11.3); RBC Red Blood Cell Count 2.68 M/uL (3.86-4.86)
[2022-03-20 07:14] LABS: Albumin 2.4 g/dL (3.4-5.0); Magnesium 2.4 mg/dL (1.6-2.4); Phosphorus 5.7 mg/dL (2.5-4.9); Potassium 4.6 mmol/L (3.5-5.1); Uric Acid 7.7 mg/dL (2.6-6.0)
[2022-03-20] MEDS: CEFTRIAXONE 1,000 MG in NA CHLORIDE 0.9% 50 ML IVPB SCH (08:11)
[2022-03-20] MEDS: NPH (HUMAN) 100 UNITS/ML INSULIN SQ SCH (08:12)
[2022-03-20] MEDS: DULOXETINE 20 MG CAP PO SCH (08:12)
[2022-03-20] MEDS: ASPIRIN EC 81 MG TAB PO SCH (08:12)
[2022-03-20] MEDS: METOPROLOL XL 25 MG TAB PO SCH ×2 (08:19→21:00)
[2022-03-20] MEDS: INSULIN 70/30 100 UNITS/ML SQ SCH ×2 (08:20→23:12)
[2022-03-20] MEDS: cloNIDine HCL 0.1 MG TAB PO SCH (08:21)
[2022-03-20] MEDS ORDERED: METOPROLOL XL 25 MG TAB PO SCH (09:00)
[2022-03-20] MEDS ORDERED: HOME MED 1 EA UNK (Levothyroxine Sodium [Levothyroxine] 175 MCG Capsule) PO SCH (09:00)
[2022-03-20] MEDS ORDERED: FUROSEMIDE 40 MG TABLET PO SCH (09:00)
[2022-03-20 10:28] LABS: Specific Gravity 1.009 (1.005-1.030); Urine Bacteria >50 /HPF (<20); Urine Bilirubin NEGATIVE (Negative); Urine Blood 1+ (Negative); Urine Clarity Turbid (Clear); Urine Color Light-Yellow (Yellow); Urine Glucose NEGATIVE (Negative); Urine Protein TRACE (Negative); Urine Urobilinogen Normal (Normal); Urine WBC Clump Occasional /HPF (None Seen); Urine Yeast with Hyphae Trace /HPF (None Seen)
[2022-03-20] MEDS: HEPARIN/D5W 25,000 UNIT/500 ML BAG IV SCH (13:10)
--- NOTE | 2022-03-20 15:20 | PN ---
Date of Progress Note: 03/20/2022 Subjective: The patient was admitted to the hospital with cardiorenal syndrome, non-ST elevation AK. The patient planned for cardiac cath tomorrow. The patient known to have chronic kidney disease stage 4, advanced, baseline GFR around 23. Yesterday, we started the patient on Lasix drip, stopped lisinopril. Kidney function did not show major improvement. Respiratory status is slightly better. Physical Examination: Vital Signs: When I saw the patient; blood pressure 108/55, pulse of 80, afebrile. The patient had urine output around 300, each void total of 700. Chest: Crackles bilateral base. Heart: S1, S2. Systolic murmur. Abdomen: Soft, nontender. Extremities: +1 edema. Neuro: Alert. No focality. No tremor. Laboratory Data: Hemoglobin 8.4. Sodium 133, potassium 4.6, bicarb 27, BUN 85, creatinine 4.4, GFR of 10, calcium 8, phosphorus 5.7. Iron saturation not done, TSH of 12, PTH 201. B12 540. Serum protein electrophoresis is still pending. Current Medications: The patient on include Lasix drip at 20 mg, aspirin, ceftriaxone, clonidine 0.1 b.i.d., gabapentin, metoprolol 25 b.i.d., Tylenol, Pepcid, levothyroxine. Assessment And Plan: 1. Acute kidney injury on advanced chronic kidney disease secondary to diabetes nephropathy, cardiorenal syndrome. Nonoliguric, over volume, did not show major response on the Lasix drip. The patient had plan for cardiac cath tomorrow. I am going to go ahead and I had long discussion with the patient and the by bedside regarding the option of treatment and the need to initiate renal replacement therapy given the degree of kidney function and the plan for exposing to cardiac cath. They are verbalized understanding. We are going to go ahead and proceed with catheter placement and we will follow up. 2. Hypertension, currently blood pressure on the lower side. I am going to discontinue clonidine. We will try to utilize blood pressure for more diuresis. 3. Anasarca secondary to cardiorenal, combined with hypothyroidism. I am going to go ahead and increase her levothyroxine to 200 and we will follow up. 4. Non-ST elevation myocardial infarction, congestive heart failure with exacerbation as above. We will follow up with Cardiology. After the catheterization, we will start dialysis. time spend exam the patient face to face , reviewing data lab and radiology placing order , discussing with [facility] member nursing and hospitalist >35 min YUDITH Voice ID: [id number] Report ID: [id number] XIAO
[2022-03-20] MEDS: MORPHINE 2 MG/ML SYR IV PRN (16:50)
[2022-03-20] MEDS: ATORVASTATIN 80 MG TAB PO SCH (21:26)
[2022-03-20] MEDS: GABAPENTIN 100 MG CAP PO SCH (21:26)
[2022-03-20] MEDS ORDERED: AMIODARONE HCL 150 MG in D5W 100 ML IV STA (21:31)
[2022-03-20] MEDS: FAMOTIDINE 20 MG TAB PO SCH (21:45)
[2022-03-20] MEDS ORDERED: AMIODARONE IN DEXTROSE,ISO-OSM 360 MG/200 ML BAG IV ONE (21:58)
[2022-03-20] MEDS ORDERED: AMIODARONE HCL 900 MG in Dextrose 5%-Water 482 ML IV SCH (23:00)
--- NOTE | 2022-03-20 23:38 | P.PN ---
Date of Service: 03/20/22 Patient went into afib RVR this evening, rate of 168 with BP 106/66. She denied any chest pain. Per telemetry review, patient was in NSR until about 3 PM today. I spoke with Dr. Tomlinson who recommended amiodarone bolus and subsequent drip. Patient converted to normal sinus with rate of 83 while on the amiodarone drip. She has no complaints at this time. BP stable.
[2022-03-21] MEDS: FUROSEMIDE 100 MG in NA CHLORIDE 0.9% 90 ML IV SCH ×3 (04:00→09:00)
[2022-03-21 05:09] LABS: Albumin 2.2 g/dL (3.4-5.0); Magnesium 2.4 mg/dL (1.6-2.4); Phosphorus 5.4 mg/dL (2.5-4.9); Potassium 4.8 mmol/L (3.5-5.1)
[2022-03-21] MEDS: LEVOTHYROXINE SOD 0.1 MG TAB PO SCH (05:42)
[2022-03-21] MEDS ORDERED: NA CHLORIDE 0.9% 500 ML ONE (07:52)
--- NOTE | 2022-03-21 08:03 | EKG ---
Test Date: 2022-03-19 Test Time: 05:49:34 Crotch Breaker: FOREIGN MEASUREMENT RESULTS: Intervals: Rate: 81 RI: 200 QRSD: 130 QT: 438 QTc: 508 [place]: P: RI: 200 QRS: -18 T: -3 INTERPRETIVE STATEMENTS: Normal sinus rhythm Right bundle branch block Abnormal ECG Compared to ECG 08/30/2019 06:06:17 Right bundle-branch block now present Sinus bradycardia no longer present Electronically Signed On 03-21-22 07:57:27 FARMWORKER by Lui Tomlinson
[2022-03-21] MEDS: AMIODARONE HCL 900 MG in Dextrose 5%-Water 482 ML IV SCH (08:22)
[2022-03-21] MEDS ORDERED: NS 0.9% VIAL 0 ML ONE (08:25)
[2022-03-21] MEDS ORDERED: NA CHLORIDE 0.9% 0 ML ONE (08:25)
[2022-03-21] MEDS ORDERED: HEPARIN 5000 UNIT/ML 1 ML VIAL ONE ×2 (08:25→10:01)
[2022-03-21] MEDS ORDERED: LIDOCAINE 1% MPF 30 ML VIAL ONE (08:26)
[2022-03-21] MEDS ORDERED: BUPIVACAINE 0.5% PF 10 ML VIAL ONE (08:26)
--- NOTE | 2022-03-21 08:44 | ECHO ---
HEIGHT: 5 ft 6 in WEIGHT: 241 lb 1.6 oz DATE OF STUDY: 03/20/[address]: Zayda Khan MD 2-DIMENSIONAL: YES M.MODE: YES DOPPLER: YES COLOR FLOW: YES TDS: PORTABLE: YES DEFINITY: BUBBLE STUDY: DIAGNOSIS: NON ST ELEVATION MYOCARDIAL INFARCTION CARDIAC HISTORY: CATHERIZATION: YES SURGERY: NO PROSTHETIC VALVE: NO PACEMAKER: YES MEASUREMENTS (cm) DIASTOLIC (NORMALS) SYSTOLIC (NORMALS) IVSd 1.1 (0.6-1.2) LA Diam 3.3 (1.9-4.0) LVEF 65% LVIDd 4.2 (3.5-5.7) LVIDs 3.4 (2.0-3.5) %FS 19% LVPWd 1.3 (0.6-1.2) Ao Diam 2.5 (2.0-3.7) 2 DIMENSIONAL ASSESSMENT: RIGHT ATRIUM: NORMAL LEFT ATRIUM: NORMAL RIGHT VENTRICLE: NORMAL LEFT VENTRICLE: NORMAL TRICUSPID VALVE: MILD TRICUSPID REGURGITATION MITRAL VALVE: 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 NORMAL LEFT VENTRICULAR EJECTION FRACTION GREATER THAN 60% 2. NORMAL WALL MOTION 3. 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 CALCIFIED AORTIC VALVE WITH AT LEAST MODERATE AORTIC STENOSIS 5. 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
[2022-03-21] MEDS: METOPROLOL XL 25 MG TAB PO SCH ×2 (09:00→21:59)
[2022-03-21] MEDS: DULOXETINE 20 MG CAP PO SCH (09:00)
[2022-03-21] MEDS: ASPIRIN EC 81 MG TAB PO SCH (09:00)
[2022-03-21] MEDS: INSULIN 70/30 100 UNITS/ML SQ SCH ×2 (09:00→21:04)
[2022-03-21] MEDS ORDERED: FENTANYL CITR 100 MCG/2 ML ONE (09:39)
[2022-03-21] MEDS ORDERED: ONDANSETRON 4 MG/2 ML VIAL ONE (09:39)
[2022-03-21] MEDS ORDERED: LIDOCAINE 2% MPF 5 ML VIAL ONE (09:39)
[2022-03-21] MEDS ORDERED: propofoL 200 MG/20 ML VIAL IV ONE (09:39)
[2022-03-21] MEDS ORDERED: NA CHLORIDE 0.9% 50 ML ONE (10:01)
[2022-03-21] MEDS ORDERED: NS 0.9% VIAL 10 ML ONE (10:01)
--- NOTE | 2022-03-21 10:27 | P.PN ---
Subjective Date of Service: 03/20/22 Subjective: No new changes, No C/O voiced Troponin is elevated. Patient on heparin drip. Scheduled for cardiac catheterization on Friday. Spoke with nephrology and will start hemodialysis tomorrow. Consulted surgery for dialysis access catheter placement. Continue on heparin drip 4 hours prior to on-call to the OR. Review of Systems 10-point ROS is otherwise unremarkable Physical Examination - Vital Signs Temperature: 97.3 F Blood Pressure: 107/60 Pulse: 80 Respirations: 18 Pulse Ox (%): 99 - Physical Exam General: Alert, In no apparent distress HEENT: Atraumatic, PERRLA, EOMI Neck: Supple, JVD not distended Respiratory: Clear to auscultation bilaterally, Normal air movement Cardiovascular: Regular rate/rhythm, Normal S1 S2 Gastrointestinal: Normal bowel sounds, No tenderness Musculoskeletal: No tenderness Integumentary: No rashes Neurological: Normal speech, Normal tone, Normal affect Lymphatics: No axilla or inguinal lymphadenopathy - Studies Medications List Reviewed: Yes Assessment & Plan - Problems (Diagnosis) (1) ACS (acute coronary syndrome) Current Visit: Yes Status: Acute (2) Humeral fracture Current Visit: Yes Status: Acute (3) Acute renal insufficiency Current Visit: No Status: Acute (4) Atrial fibrillation Current Visit: No Status: Acute (5) Diabetes Current Visit: No Status: Acute (6) Nephrotic syndrome Current Visit: No Status: Acute - Plan Plan: Continue with plan of care as mentioned below: 1. Gentle hydration 2. Heparin drip-we will DC 4 hours on-call to the OR; spoke with nursing and they will check with cardiology 3. cardiology and nephrology consultation appreciated 4. Outpatient orthopedic consultation 5. Physical therapy evaluation 6. detention facility placement 7. Hemodialysis access catheter in the morning 8. Strict blood pressure and blood sugar control 9. GI/DVT prophylaxis Discharge Plan: Home Plan to discharge in: Greater than 2 days - Advance Directives Does patient have a Living Will: No Does patient have a Durable POA for Healthcare: No - Code Status/Comfort Care Code Status Assessed: Yes Code Status: Full Code Critical Care: No Time Spent Managing PTS Care (In Minutes): 35
[2022-03-21] MEDS: CEFTRIAXONE 1,000 MG in NA CHLORIDE 0.9% 50 ML IVPB SCH (10:35)
--- NOTE | 2022-03-21 11:20 | P.OP ---
Preoperative diagnosis: Need for Dialysis Postoperative diagnosis: Need for Dialysis Primary procedure: Placement of RIGHT Internal Jugular Tunnelled HD Catheter Secondary procedure: Ultrasound and Flouroscopy used Anesthesia: MAC + Local Estimated blood loss: <5cc Specimen: none Findings: dark non-pulstaile blood returned Complications: None Implants: 19cm curved hemosplit tunnelled catheter Transferred to: Recovery Room Condition: Good
--- NOTE | 2022-03-21 11:45 | RAD REPORT ---
EXAM DESCRIPTION: RAD - Fluoroscopy <1 Hour - 03/21/2022 11:40 am CLINICAL HISTORY: Venous catheter insertion. HD CATH PLACEMENT COMPARISON: U/S GUIDED FNA-NON BREAST dated 11/23/2007 FINDINGS: Fluoroscopic imaging is submitted from placement of a venous catheter. Details of the pro cedure not available. Fluoroscopy time: 0.1 minutes.
--- NOTE | 2022-03-21 11:47 | OP ---
Date of Procedure: 03/21/2022 Surgeon: Diallo Martins MD, Preoperative Diagnosis: Urgent need for hemodialysis. Postoperative Diagnosis: Urgent need for hemodialysis. Procedure Performed: Placement of a right internal jugular tunneled hemodialysis catheter utilizing fluoroscopy and ultrasound guidance. Anesthesia: MAC plus local with 0.25% Marcaine without epinephrine. Estimated Blood Loss: Less than 5 cc. Specimen: None. Findings: Dark nonpulsatile blood returned. Complications: None. Implants: A 19 cm curved HemoSplit catheter. Disposition: The patient was transferred to the recovery room in good condition. Procedure In Detail: After informed consent was obtained, the patient was brought to the operating r oom, prepped and draped in the usual sterile fashion after adequate anesthesia was achieved. Using u ltrasound guidance, I cannulated the right internal jugular vein on the first attempt with a microint roducer set. A 5-Congolese sheath was then introduced after the microwire was advanced using Seldinger technique. Position was confirmed with fluoroscopy in the confluence of the superior vena cava and r ight atrium. At this point, the introducer sheath remained in place and the microwire was removed. Standard wire was advanced at this point. Fluoroscopy once again confirmed position of the superior vena cava/right atrium. At this point, I anesthetized the tract at the infraclavicular position, mad e a small incision using the tunneling device, and brought in 19 cm HemoSplit catheter, which was cur sharon into the position. I then performed sequential dilatation using Seldinger technique as the patie nt remained in deep Trendelenburg throughout the procedure. At this point, introducer sheath was adv anced. I then advanced the catheter after removing the wire at this point into the right subclavian. At this point, the wire out was called and confirmed position of the catheter in the SVC confluence with fluoroscopy at this point. I then eryn back and flushed both ports, which flushed quite easily at this point. I then packed them with heparin super flush at this point and capped. I then irriga diallo the incisions and closed with interrupted 3-0 nylon suture and secured the catheter with the same said 3 nylon suture and sterile dressing placed over top. The patient tolerated the procedure well without evidence of complication and transferred to PACU in good condition. All counts were correct at the end of the case. TK/MODL Voice ID: [id number] Report ID: [id number]
--- NOTE | 2022-03-21 12:10 | RAD REPORT ---
EXAM DESCRIPTION: RAD - Chest Single View - 03/21/2022 12:04 pm CLINICAL HISTORY: s/p HD cath placement; r/o pneumo Chest pain. COMPARISON: Chest Single View dated 03/19/2022; Chest Single View dated 08/29/2019; Chest Single View d ated 02/21/2017; Chest Single View dated 01/30/2017 FINDINGS: Portable technique limits examination quality. Right-sided venous catheter is in place with tip in the SVC. No postprocedure pneumothorax seen. No s ignificant change in lung aeration since comparative study. IMPRESSION: No evidence of postprocedure pneumothorax.
[2022-03-21 13:23] LABS: Absolute Lymphocytes (CBC) 1.2 K/uL (0.7-4.9); Hematocrit 26.1 % (36.0-45.0); Lymphocytes % 8.4 % (15.3-44.8); MCV 94.6 fL (80-100); MPV 8.1 fL (7.6-11.3); RBC Red Blood Cell Count 2.76 M/uL (3.86-4.86)
--- NOTE | 2022-03-21 14:50 | PN ---
Date of Progress Note: 03/21/2022 Subjective: The patient was admitted with this acute kidney injury secondary to cardiorenal with non-ST elevation ME. The patient was on diuresis with Lasix drip. Kidney function continued to decline. Physical Examination: Vital Signs: Blood pressure 118/72, pulse of 97, afebrile. Chest: Crackles bilateral base. Heart: S1, S2. Systolic murmur. Abdomen: Soft, nontender. Extremities: Plus edema. Neurological: Alert. No focality. Pleasantly confused. Laboratory Data: Hemoglobin 8.5. Sodium 132, potassium 4.8, bicarb 26, BUN 81, creatinine 4.3, GFR of 10, calcium 8, phosphorus 5.4, magnesium 2.4, albumin 2.2. Corrected calcium is 9.6. The patient had urine output only 350. Current Medications: The patient on include; 1. Aspirin. 2. Ceftriaxone. 3. Heparin drip. 4. Amiodarone. 5. Atorvastatin. 6. Metoprolol. 7. Gabapentin. 8. Lasix drip. Assessment And Plan: 1. Acute kidney injury secondary to cardiorenal, poor perfusion, ATN, oliguric. I am going to go ahead and initiate renal replacement therapy. Tunneled hemodialysis catheter has been placed today, the patient tolerated well. I am going to initiate gentle dialysis today and we will follow up. Switch Lasix to oral. 2. Over volume. We will try to establish better volume control with dialysis. 3. Hyponatremia, dilutional. Continue diuresis. Will be corrected with dialysis. 4. Diabetes as by primary. 5. Hypertension, currently blood pressure on the lower side. We will keep utilizing blood pressure to establish better volume control. 6. Anemia of chronic kidney disease. I am going to start the patient on JOHNNY. We will follow up. 7. Non-ST elevation myocardial infarction. Plan for cardiac cath tomorrow. We will do session of dialysis after the catheterization tomorrow. I had long discussion with the patient and the family by bedside. The patient chose for hospice we will discuss with the case consultant to send the referral. time spend exam the patient face to face , reviewing data lab and radiology placing order , discussing with [facility] nursing and hospitalist >35 min HARRIETT/LAYLA Voice ID: [id number] Report ID: [id number] XIAO
[2022-03-21] MEDS: NPH (HUMAN) 100 UNITS/ML INSULIN SQ SCH (17:00)
[2022-03-21 17:16] LABS: Hepatitis B Core Ab, Total Nonreactive (Nonreactive)
[2022-03-21 17:19] LABS: Hepatitis B Surface Ab - Quant < 3.10 mIU/mL (<8.0)
[2022-03-21] MEDS: EPOETIN ALFA 10,000 UNIT/ML VIAL IV SCH (18:00)
[2022-03-21] MEDS: GABAPENTIN 100 MG CAP PO SCH (21:02)
[2022-03-21] MEDS: ATORVASTATIN 80 MG TAB PO SCH (21:02)
[2022-03-21] MEDS: FAMOTIDINE 20 MG TAB PO SCH (21:02)
[2022-03-22] MEDS: HEPARIN/D5W 25,000 UNIT/500 ML BAG IV SCH (01:39)
[2022-03-22 05:25] LABS: Hematocrit 24.8 % (36.0-45.0); MCV 94.8 fL (80-100); MPV 7.7 fL (7.6-11.3); RBC Red Blood Cell Count 2.62 M/uL (3.86-4.86)
[2022-03-22 05:27] LABS: RBC Red Blood Cell Count 2.55 M/uL (3.86-4.86)
[2022-03-22 05:42] LABS: Albumin 2.2 g/dL (3.4-5.0); Phosphorus 3.9 mg/dL (2.5-4.9); Potassium 4.1 mmol/L (3.5-5.1)
[2022-03-22 05:44] LABS: Magnesium 2.3 mg/dL (1.6-2.4); Potassium 4.1 mmol/L (3.5-5.1)
[2022-03-22 05:54] LABS: Troponin High Sensitivity 1508.3 pg/mL (<58.9)
[2022-03-22] MEDS: LEVOTHYROXINE SOD 0.1 MG TAB PO SCH (06:30)
[2022-03-22] MEDS: NPH (HUMAN) 100 UNITS/ML INSULIN SQ SCH ×2 (08:00→18:26)
[2022-03-22] MEDS: INSULIN 70/30 100 UNITS/ML SQ SCH ×2 (09:00→22:08)
[2022-03-22] MEDS: ASPIRIN EC 81 MG TAB PO SCH (10:09)
[2022-03-22] MEDS: METOPROLOL XL 25 MG TAB PO SCH ×2 (10:11→22:10)
[2022-03-22] MEDS: CEFTRIAXONE 1,000 MG in NA CHLORIDE 0.9% 50 ML IVPB SCH (10:11)
[2022-03-22] MEDS: DULOXETINE 20 MG CAP PO SCH (10:14)
[2022-03-22] MEDS ORDERED: HEPA 1000U/500MLS 2,000 UNIT/1,000 ML BAG IV ONE (10:25)
[2022-03-22] MEDS ORDERED: NA CHLORIDE 0.9% 500 ML ONE (11:08)
[2022-03-22] MEDS: AMIODARONE HCL 900 MG in Dextrose 5%-Water 482 ML IV SCH (12:41)
--- NOTE | 2022-03-22 14:03 | P.PN ---
Subjective Date of Service: 03/22/22 Chief Complaint: ACUTE KIDNEY INJURY Subjective: No new changes Physical Examination - Vital Signs Temperature: 96.8 F Blood Pressure: 124/87 Pulse: 77 Respirations: 16 Pulse Ox (%): 95 - Physical Exam General: Other (appears as her stated age) HEENT: Atraumatic, Normocephalic Neck: Supple, JVD not distended Respiratory: Other (symmetric chest expansion) Cardiovascular: No rubs, No murmurs Gastrointestinal: Soft and benign, No guarding Musculoskeletal: No clubbing Integumentary: No warmth Neurological: Normal speech, Normal tone Urinary: Other (no bladder distention) External genitalia: Deferred Rectal: Deferred - Studies Medications List Reviewed: Yes Assessment And Plan - Plan 1. Acute kidney injury secondary to cardiorenal, poor perfusion, ATN, oliguric. TDC placed on 03/21. HD today. 2. Volume overload. HD today. 3. Hyponatremia. Mild. Correction via HD. 4. DM2. Mngt per primary team. 5. Hypertension. Cont current med regimen. 6. Anemia of chronic kidney disease. JOHNNY qMWF. 7. Non-ST elevation myocardial infarction. Cardiac cath pending.
[2022-03-22] MEDS: EPOETIN ALFA 10,000 UNIT/ML VIAL IV SCH (17:45)
[2022-03-22 18:40] LABS: Hepatitis C Virus RNA (PCR)log <1.18 log IU/mL
[2022-03-22] MEDS: GABAPENTIN 100 MG CAP PO SCH (22:09)
[2022-03-22] MEDS: ATORVASTATIN 80 MG TAB PO SCH (22:09)
[2022-03-22] MEDS: FAMOTIDINE 20 MG TAB PO SCH (22:10)
--- NOTE | 2022-03-23 00:17 | P.PN ---
Date of Service: 03/21/22 Subjective Patient is clinically doing well. Plan to start hemodialysis. We are going to go ahead and get patient scheduled for cardiac catheterization as well. Physical Examination - Vital Signs Reviewed - Physical Exam General: Alert, In no apparent distress Respiratory: Clear to auscultation bilaterally, Normal air movement Cardiovascular: Regular rate/rhythm, Normal S1 S2 Gastrointestinal: Normal bowel sounds, No tenderness Neurological: No focal deficits Assessment & Plan - Problems (Diagnosis) (1) ACS (acute coronary syndrome) Current Visit: Yes Status: Acute (2) Humeral fracture Current Visit: Yes Status: Acute (3) ESRD Current Visit: No Status: Acute (4) Atrial fibrillation Current Visit: No Status: Acute (5) Diabetes Current Visit: No Status: Acute (6) Nephrotic syndrome Current Visit: No Status: Acute - Plan Continue with plan of care as mentioned below: 1. Gentle hydration 2. Heparin drip 3. Cardiology and nephrology consultation appreciated 4. Outpatient orthopedic consultation 5. Physical therapy evaluation 6. snf facility placement 7. Hemodialysis access catheter placed 8. Strict blood pressure and blood sugar control 9. GI/DVT prophylaxis
--- NOTE | 2022-03-23 00:26 | P.PN ---
Date of Service: 03/22/22 Subjective Patient was scheduled for cardiac catheterization today. This was placed on hold. Patient to go for hemodialysis again today. Otherwise, will continue with working with anticipate heart catheterization next week. Physical Examination - Vital Signs Reviewed - Physical Exam General: Alert, In no apparent distress Respiratory: Clear to auscultation bilaterally, Normal air movement Cardiovascular: Regular rate/rhythm, Normal S1 S2 Gastrointestinal: Normal bowel sounds, No tenderness Neurological: No focal deficits Assessment & Plan - Problems (Diagnosis) (1) ACS (acute coronary syndrome) Current Visit: Yes Status: Acute (2) Humeral fracture Current Visit: Yes Status: Acute (3) ESRD Current Visit: No Status: Acute (4) Atrial fibrillation Current Visit: No Status: Acute (5) Diabetes Current Visit: No Status: Acute (6) Nephrotic syndrome Current Visit: No Status: Acute - Plan Continue with plan of care as mentioned below: 1. Hep-Lock IV 2. DC heparin drip 3. Cardiology and nephrology consultation appreciated 4. Outpatient orthopedic consultation 5. Physical therapy evaluation appreciated 6. jail facility placement 7. Strict blood pressure and blood sugar control 8. GI/DVT prophylaxis
--- NOTE | 2022-03-23 00:28 | P.PN ---
Date of Service: 03/23/22 Subjective Continues to improve. Clinical symptoms are much better. Denies any new complaints. Physical Examination - Vital Signs Reviewed - Physical Exam General: Alert, In no apparent distress Respiratory: Clear to auscultation bilaterally, Normal air movement Cardiovascular: Regular rate/rhythm, Normal S1 S2 Gastrointestinal: Normal bowel sounds, No tenderness Neurological: No focal deficits Assessment & Plan - Problems (Diagnosis) (1) ACS (acute coronary syndrome) Current Visit: Yes Status: Acute (2) Humeral fracture Current Visit: Yes Status: Acute (3) ESRD Current Visit: No Status: Acute (4) Atrial fibrillation Current Visit: No Status: Acute (5) Diabetes Current Visit: No Status: Acute (6) Nephrotic syndrome Current Visit: No Status: Acute - Plan Continue with plan of care as mentioned below: 1. Hep-Lock IV 2. DC heparin drip; Amiodarone drip for atrial fibrillation with RVR 3. Cardiology and nephrology consultation appreciated 4. Outpatient orthopedic consultation 5. Physical therapy evaluation appreciated 6. [facility] facility placement 7. Strict blood pressure and blood sugar control 8. GI/DVT prophylaxis
[2022-03-23 05:40] LABS: Albumin 2.1 g/dL (3.4-5.0); Magnesium 2.2 mg/dL (1.6-2.4); Phosphorus 2.1 mg/dL (2.5-4.9); Potassium 3.5 mmol/L (3.5-5.1)
[2022-03-23] MEDS: LEVOTHYROXINE SOD 0.1 MG TAB PO SCH (06:41)
[2022-03-23] MEDS: AMIODARONE HCL 900 MG in Dextrose 5%-Water 482 ML IV SCH ×2 (08:00→16:03)
[2022-03-23] MEDS: ASPIRIN EC 81 MG TAB PO SCH (08:32)
[2022-03-23] MEDS: METOPROLOL XL 25 MG TAB PO SCH ×2 (08:32→20:58)
[2022-03-23] MEDS: DULOXETINE 20 MG CAP PO SCH (08:32)
[2022-03-23] MEDS: CEFTRIAXONE 1,000 MG in NA CHLORIDE 0.9% 50 ML IVPB SCH (08:32)
[2022-03-23] MEDS: INSULIN 70/30 100 UNITS/ML SQ SCH ×2 (08:34→20:59)
[2022-03-23] MEDS: NPH (HUMAN) 100 UNITS/ML INSULIN SQ SCH ×2 (08:34→16:08)
--- NOTE | 2022-03-23 12:32 | CON ---
Date of Consultation: 03/20/2022 Brief History Of Present Illness: Patient is an 81-year-old female who presented to the hospital on 03/19 with acute kidney failure. She fell a few days prior and had fallen several times. She had a comminuted moderately displaced humeral fracture, which was supracondylar. She had acute renal insuf ficiency upon evaluation in the ER and had elevation of her troponin, concerning for possible myocard ial infarction. She did not have any significant chest pain. She was seen by Nephrology and Cardiol royal who ultimately had planned for the patient to have angiography and coronary artery interrogation. Nephrology had recommended the patient to have a hemodialysis catheter placed as she had worsening renal function and was going to receive contrast and needed medical optimization prior to coronary ar jazz intervention. She was placed on a heparin drip during the time of my examination. 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 She had atrial fibrillation, suprav entricular tachycardia. Past Surgical History: Included thyroidectomy, cataract surgery, hysterectomy, multiple coronary int erventions including the monitoring manager implantation. Allergies: NO KNOWN DRUG ALLERGIES. Home Medications: Include Lipitor, Cymbalta, Pepcid, Eliquis, docusate sodium, Lasix, gabapentin, hu man insulin, levothyroxine, Toprol, Catapres. Family History: Significant for hypertension, diabetes. Social History: She denied smoking, alcohol, or recreational drug use. Review of Systems: Ten-point review of systems other than HPI, denies. Physical Examination: At the time of my examination: General: She is awake, alert, and oriented. Psychiatric: She is appropriate and conversive. HEENT: She is normocephalic. Her sclerae were anicteric. Mucous membranes were moist. Oropharynx clear. Neck: Supple without JVD. Chest: Normal expansion and excursion. Cardiovascular: Had a regular rate and rhythm during my examination. Abdomen: Soft. Extremities: No clubbing, cyanosis, or edema. Skin: Warm and dry. Laboratory Data: White blood cell count of 13.8, hemoglobin is 8.5, hematocrit 26.1, platelet count was 255, neutrophils were 80%. Her sodium 135, potassium 5.0, chloride 100, carbon dioxide as 25, BU N 92, creatinine 4.1, glucose is 278, calcium was 8.2. Assessment And Plan: This is an 81-year-old female who presented with signs and symptoms of possible myocardial infarction and worsening acute on chronic renal dysfunction: 1.I have been asked to discuss placement of a tunneled hemodialysis catheter for patient in the preo perative period, prior to her coronary intervention, as such, I have discussed risks, benefits, and a lternatives of placement of a tunneled hemodialysis catheter including, but not limited to, bleeding, infection, damage to surrounding tissues; injury of the lung, heart, great blood vessels; stroke, he art attack, other unforeseen complication related to anesthesia, possible need for more surgery. Gina ient has agreed to proceed as indicated. 2.We will hold heparin 2 hours prior to surgical intervention and we will coordinate with Medical an d Nephrology and Cardiology teams. Thank you for this interesting consult. VIVIAN/LAYLA Voice ID: [id number] Report ID: [id number]
[2022-03-23] MEDS: CODEINE 30MG/APAP 300MG TAB PO PRN (12:36)
--- NOTE | 2022-03-23 18:11 | P.PN ---
Subjective Date of Service: 03/23/22 Chief Complaint: ACUTE KIDNEY INJURY Pt with CKD , had NSTEMI , elevated trop, started on HD Today no overnight events plan for cardiac cath on Friday HD on Friday #Acute kidney injury on CKD vs oprogressive CKD secondary to cardiorenal, poor perfusion, ATN, oliguric. TDC placed on 03/21. S/p HD on 03/21 and 03/22 renal diet renal dose medications #Mild Hyponatremia. will correct with HD #Metabolic bone disease phos 2.1 high PTH F/U Vit D level # DM2. SSI # Hypertension. Cont current med regimen. # Anemia of chronic kidney disease. JOHNNY qMWF. # Non-ST elevation myocardial infarction. Cardiac cathon Friday Physical Examination - Vital Signs Temperature: 96.8 F Blood Pressure: 140/66 Pulse: 73 Respirations: 18 Pulse Ox (%): 95 - Studies Medications List Reviewed: Yes
[2022-03-23] MEDS: ATORVASTATIN 80 MG TAB PO SCH (20:58)
[2022-03-23] MEDS: FAMOTIDINE 20 MG TAB PO SCH (20:59)
[2022-03-23] MEDS: GABAPENTIN 100 MG CAP PO SCH (20:59)
[2022-03-24 05:44] LABS: Albumin 1.9 g/dL (3.4-5.0); Magnesium 2.2 mg/dL (1.6-2.4); Phosphorus 3.2 mg/dL (2.5-4.9); Potassium 3.8 mmol/L (3.5-5.1)
[2022-03-24] MEDS: LEVOTHYROXINE SOD 0.1 MG TAB PO SCH (05:58)
[2022-03-24] MEDS: AMIODARONE HCL 900 MG in Dextrose 5%-Water 482 ML IV SCH (08:00)
[2022-03-24] MEDS: INSULIN 70/30 100 UNITS/ML SQ SCH ×2 (08:31→22:03)
[2022-03-24] MEDS: NPH (HUMAN) 100 UNITS/ML INSULIN SQ SCH ×2 (08:32→18:09)
[2022-03-24] MEDS: CEFTRIAXONE 1,000 MG in NA CHLORIDE 0.9% 50 ML IVPB SCH (08:32)
[2022-03-24] MEDS: DULOXETINE 20 MG CAP PO SCH (08:33)
[2022-03-24] MEDS: ASPIRIN EC 81 MG TAB PO SCH (08:33)
[2022-03-24] MEDS: METOPROLOL XL 25 MG TAB PO SCH ×2 (08:33→22:03)
--- NOTE | 2022-03-24 13:15 | P.PN ---
Subjective Date of Service: 03/24/22 Chief Complaint: ACUTE KIDNEY INJURY Pt with CKD , had NSTEMI , elevated trop, started on HD Today no overnight events plan for cardiac cath on Friday HD on Friday cont amiodarone drip as per cardiology Physical exam General: Awake, NAD , obese HEENT: Atraumatic, Normocephalic Neck: Supple, no elevated JVD Respiratory: CTAB , no rales or wheezes Cardiovascular: systolic murmur Gastrointestinal: Soft and benign, Non-distended Musculoskeletal: No clubbing Integumentary: No warmth #Acute kidney injury on CKD vs oprogressive CKD secondary to cardiorenal, poor perfusion, ATN, oliguric. TDC placed on 03/21. S/p HD on 03/21 and 03/22 renal diet renal dose medications Cr trending up while off HD, will cont HD , tomorrow pt is scheduled for cardiac cathetriation , HD after the procedure #Mild Hyponatremia. will correct with HD #Metabolic bone disease phos 2.1 high PTH F/U Vit D level # DM2. SSI # Hypertension. Cont current med regimen. # Anemia of chronic kidney disease. JOHNNY qMWF. # Non-ST elevation myocardial infarction. Cardiac cathon Friday Physical Examination - Vital Signs Temperature: 97.3 F Blood Pressure: 138/63 Pulse: 75 Respirations: 16 Pulse Ox (%): 93 - Studies Medications List Reviewed: Yes
[2022-03-24 14:55] LABS: Albumin, (SPE) 2.6 g/dL (3.8-4.8); Alpha-1-Globulins 0.4 g/dL (0.2-0.3); Alpha-2-Globulins 0.8 g/dL (0.5-0.9); INTERPRETATION REPORT
--- NOTE | 2022-03-24 16:20 | P.PN ---
Date of Service: 03/24/22 Subjective Patient is an 81-year-old female who came to the hospital after falling. Patient has suffered a humeral fracture which had a splint placed. Patient had worsening renal failure. Patient was started on hemodialysis. Patient's troponin bumped up to 5000 and we spoke with Cardiology and family was agreeable for further intervention including cardiac catheterization. Patient also has a history of atrial fibrillation and required amiodarone drip for rapid ventricular response. Holding anticoagulation at this time. Strict blood sugar control. Cardiac catheterization in a.m.. Arranging for outpatient hemodialysis and longterm facility placement at discharge. Physical Examination - Vital Signs Reviewed - Physical Exam General: Alert, In no apparent distress Respiratory: Clear to auscultation bilaterally, Normal air movement Cardiovascular: Regular rate/rhythm, Normal S1 S2 Gastrointestinal: Normal bowel sounds, ND/NT BS + Neurological: No focal deficits Assessment & Plan - Problems (Diagnosis) (1) ACS (acute coronary syndrome) Current Visit: Yes Status: Acute (2) Humeral fracture Current Visit: Yes Status: Acute (3) ESRD Current Visit: No Status: Acute (4) Atrial fibrillation Current Visit: No Status: Acute (5) Diabetes Current Visit: No Status: Acute (6) Nephrotic syndrome Current Visit: No Status: Acute - Plan Continue with plan of care as mentioned below: 1. Hep-Lock IV 2. DC heparin drip; Amiodarone drip for atrial fibrillation with RVR 3. Cardiology and nephrology consultation appreciated 4. Outpatient orthopedic consultation 5. Physical therapy evaluation appreciated 6. longterm facility placement 7. Strict blood pressure and blood sugar control 8. GI/DVT prophylaxis
[2022-03-24] MEDS: AMIODARONE HCL 200 MG TAB PO SCH ×2 (18:10→22:02)
[2022-03-24] MEDS ORDERED: HEPARIN 5000 UNIT/ML 1 ML VIAL SQ SCH (21:00)
[2022-03-24] MEDS: FAMOTIDINE 20 MG TAB PO SCH ×2 (22:01→22:02)
[2022-03-24] MEDS: ATORVASTATIN 80 MG TAB PO SCH (22:02)
[2022-03-24] MEDS: GABAPENTIN 100 MG CAP PO SCH (22:03)
[2022-03-24] MEDS: CODEINE 30MG/APAP 300MG TAB PO PRN (22:24)
[2022-03-25] MEDS: LEVOTHYROXINE SOD 0.1 MG TAB PO SCH (05:43)
[2022-03-25] MEDS ORDERED: HEPA 1000U/500MLS 2,000 UNIT/1,000 ML BAG IV ONE (06:06)
[2022-03-25] MEDS ORDERED: LIDOCAINE 1% 20 ML MDV ONE (06:06)
[2022-03-25] MEDS ORDERED: FENTANYL CITR 100 MCG/2 ML ONE (06:07)
[2022-03-25] MEDS ORDERED: HEPARIN 10,000 UNIT/10 ML VIAL IV ONE (06:07)
[2022-03-25] MEDS ORDERED: VERAPAMIL HCL 10 MG/4 ML VIAL IV ONE (06:07)
[2022-03-25] MEDS ORDERED: HEPARIN 5000 UNIT/ML 1 ML VIAL ONE (06:07)
[2022-03-25] MEDS ORDERED: MIDAZOLAM HCL 2 MG/2 ML INJ ONE (06:07)
[2022-03-25] MEDS ORDERED: NITROGLYCERIN 100 MCG/ML SYR (for cath lab use only) IV ONE (06:08)
[2022-03-25] MEDS ORDERED: NITROGLYCERIN/D5W 25 MG/250 ML BTL IV ONE (06:08)
[2022-03-25] MEDS ORDERED: ATROPINE SULF 1 MG/10 ML SYR IV ONE (06:08)
[2022-03-25 06:23] LABS: Phosphorus 3.2 mg/dL (2.5-4.9)
[2022-03-25] MEDS ORDERED: NA CHLORIDE 0.9% 500 ML ONE (06:49)
[2022-03-25] MEDS ORDERED: HYDRALAZINE HCL 20 MG/ML VIAL ONE (07:20)
[2022-03-25] MEDS ORDERED: METOPROLOL TARTRATE 5 MG/5 ML INJ IV ONE (07:24)
--- NOTE | 2022-03-25 08:12 | OP ---
Date of Procedure: 03/25/2022 Surgeon: TARA SMYTH Procedures Performed: 1.Selective coronary angiogram. 2.Left heart catheterization. Indication: Non-ST elevation myocardial infarction. Access: Right femoral artery 6-Syrian closed with StarClose. Complications: None. Bleeding: Less than 20 mL. Anesthesia: Total sedation time was 25 minutes. Description Of Procedure: After risks, benefits, and alternatives were explained, the patient agreed to procedure and signed informed consent. The patient was brought into the cardiac catheterization laboratory, prepped and draped in the usual sterile fashion. I accessed right femoral artery using m icropuncture kit, fluoroscopy, and ultrasound guidance, placed a 6-Syrian [place] sheath and took a 6-Syrian JL4 catheter into the aortic root, engaged left main and then exchanged for a 6-Syrian JR4 c atheter and engaged the RCA and the catheter was pushed over the wire into the LV, measured the LVEDP and pullback did not record any gradient. The catheter was removed, sheath was removed, and StarClo se was used for closure with good hemostasis. Findings: 1.Left main; long, enlarged with distal 60% to 70% stenosis. 2.LAD; proximal 60% to 70%, in the mid diffuse 80%, then normal. Normal diagonal branches. 3.Left circumflex; large size vessel that is normal with some luminal irregularities. 4.RCA; large and dominant and normal. 5.Elevated LVEDP at 20 mmHg. Conclusion: 1.Severe left main and LAD disease. 2.Elevated LVEDP. Recommendations: CABG versus high-risk PCI of the left main and the LAD with Impella. SR/MODL Voice ID: [id number] Report ID: [id number]
[2022-03-25] MEDS: METOPROLOL XL 25 MG TAB PO SCH ×2 (09:05→21:35)
[2022-03-25] MEDS: AMIODARONE HCL 200 MG TAB PO SCH ×2 (09:08→21:34)
[2022-03-25] MEDS: DULOXETINE 20 MG CAP PO SCH (09:09)
[2022-03-25] MEDS: NPH (HUMAN) 100 UNITS/ML INSULIN SQ SCH ×2 (09:09→18:40)
[2022-03-25] MEDS: ASPIRIN EC 81 MG TAB PO SCH (09:09)
[2022-03-25] MEDS: INSULIN 70/30 100 UNITS/ML SQ SCH ×2 (09:10→21:37)
[2022-03-25] MEDS: CEFTRIAXONE 1,000 MG in NA CHLORIDE 0.9% 50 ML IVPB SCH (09:11)
--- NOTE | 2022-03-25 14:45 | P.PN ---
Subjective Date of Service: 03/25/22 Chief Complaint: ACUTE KIDNEY INJURY No acute events overnight. She has been NPO past midnight in anticipation for a cardiac catheterization this morning. She denies any chest pain, palpitations, or shortness of breath. Review of Systems 10-point ROS is otherwise unremarkable Musculoskeletal: Arm Pain Physical Examination - Vital Signs Temperature: 96.1 F Blood Pressure: 140/62 Pulse: 72 Respirations: 17 Pulse Ox (%): 93 - Physical Exam General: Alert, In no apparent distress, Oriented x3 HEENT: Atraumatic, Mucous membr. moist/pink, EOMI, Sclerae nonicteric Neck: JVD not distended Respiratory: Clear to auscultation bilaterally, Normal air movement Cardiovascular: No edema, Regular rate/rhythm, Normal S1 S2, No gallops, No rubs, No murmurs Gastrointestinal: Normal bowel sounds, Soft and benign, Non-distended, No tenderness, No rebound, No guarding Musculoskeletal: No clubbing Integumentary: No rashes Neurological: Normal speech, Normal affect - Studies Medications List Reviewed: Yes Assessment And Plan - Plan # Non-ST Segment Elevation Myocardial Infarction # History of Cerebrovascular Accident (January 2017) # Severe Pulmonary Hypertension # Moderate Aortic Stenosis # Mild Mitral Stenosis # Hypertension # Dyslipidemia - Evaluation thus far: - EKG: without STEMI criteria, trend - Serial troponin: 557.6 -> 2655.0 -> 5143.0 -> 1508.3 - Transthoracic echocardiogram = "1. normal left ventricular ejection fraction greater than 60% 2. normal wall motion 3. mitral annular calcification with mild mitral stenosis 4. calcified aortic valve with at least moderate aortic stenosis 5. severe pulmonary hypertension with right ventricular systolic pressure greater than 60 mmHg" - Chest x-ray = "no acute cardiopulmonary process." - Management plan: - Consult Cardiology - recommendations appreciated - Plan for [facility] today - Continue aspirin, atorvastatin, metoprolol - WILDA-inhibitor/ARB not started due to renal function # Paroxysmal Atrial Fibrillation with Rapid Ventricular Response (resolved) # S/P Pacemaker Her [id number] = 7 (HTN=1, Age>75=2, DM=1, CVA=1, CAD=1, Sex=1), which warrants anticoagulation. - Cardiology consulted - recommendations appreciated - For rate control: - Continue metoprolol + amiodarone - For anticoagulation: - Continue heparin drip # Acute Kidney Injury on Chronic Kidney Disease, now with End-Stage Renal Disease on Hemodialysis - Nephrology consulted - recommendations appreciated - Renal ultrasound = "mildly echogenic kidneys bilaterally. This likely indicates underlying medical renal disease." - Renally dose medications # Traumatic Ground-Level Fall complicated by Moderately Displaced Communited Humeral Fracture # Acute Right Foot Fifth Proximal Phalanx Fracture - Left foot x-ray = "no acute findings in the left foot" - Left knee x-ray = "no acute findings in the left knee" - Right knee x-ray = "no acute findings in the right knee" - Right foot x-ray = "suspect acute fracture in the fifth proximal phalanx on the frontal film" - Appreciate CM assistance with SNF placement - Continue PT/OT - PRN pain control - Outpatient Orthopedic evaluation # 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
[2022-03-25 14:58] LABS: Vitamin D 1,25-Dihydroxy Total 26 pg/mL (18-72); Vitamin D,1,25-OH2, D2 <8 pg/mL
[2022-03-25] MEDS: EPOETIN ALFA 10,000 UNIT/ML VIAL IV SCH (16:30)
[2022-03-25] MEDS: GABAPENTIN 100 MG CAP PO SCH (21:34)
[2022-03-25] MEDS: ATORVASTATIN 80 MG TAB PO SCH (21:35)
[2022-03-25] MEDS: FAMOTIDINE 20 MG TAB PO SCH (21:36)
--- NOTE | 2022-03-26 04:09 | PN ---
Date of Progress Note: 03/25/2022 Review of Systems: Seen at bedside, status post coronary angiogram today. She has significant left main and LAD diseas e. She denies having any chest pain, shortness of breath, orthopnea, cough, nausea, vomiting, diarrh ea. All other systems reviewed, they were negative. Physical Examination: Vital Signs: Reviewed. Head and Neck: Pupils are equal, reactive to light. Intact eye movements. No JVD. No cervical lym phadenopathy. Neck: Supple. Thyroid is not enlarged. Lungs: Clear to auscultation bilaterally. No crackles. No accessory muscle use. Heart: Regular rate and rhythm. No extra sounds. Abdomen: Soft, nontender. Bowel sounds positive. No organomegaly. No masses or hernias. No rigid ity or rebound. Extremities: No edema, clubbing, cyanosis. Intact pulses. Skin: No rashes . Neurologic: Alert, awake, oriented x3. No acute focal deficits appreciates. Investigations: BUN 49, creatinine 2.79, and hemoglobin is 8. Assessment/recommendation: 1.Non-ST elevation myocardial infarction. She has significant left main and left anterior descendin g artery disease. The patient is not a good candidate for coronary artery bypass surgery, but the st enosis of the left main is about 60% to 70%, and from my perspective, this patient can be released to go for rehab, and once this is done and patient is reconditioned, then we will plan for a high risk percutaneous coronary intervention of the left main and left anterior descending artery with __assistance and at the higher level care facility in [place]. Meanwhile, make sure the patient is o n aspirin, Plavix, beta-breanne. She can follow up with me in about 4 weeks. 2.End-stage renal disease, on hemodialysis at the present time. 3.Hypertension, which Continue current management. SR/MODL Voice ID: [id number] Report ID: [id number]
--- NOTE | 2022-03-26 06:14 | PN ---
Date of Progress Note: 03/25/2022 Chief Complaint: Acute kidney injury, nonoliguric, elevated troponin, [id number] myocardial in farction. History: The patient was started on hemodialysis for acute kidney injury. She developed progressive ly worse kidney failure in setting of underlying chronic kidney disease. She remains currently oligu brian and developed severe cardiorenal syndrome. Tunneled dialysis catheter was placed on March 21. The patient received dialysis on March 22. Review of Systems: Denies chest pain, palpitations. Physical Examination: Lungs: Clear to auscultation bilaterally. Heart: S1, S2. Abdomen: Soft. Extremities: Slight edema. Impression And Plan: 1.Dialysis is scheduled for today. Continue to monitor fluid balance. Serum creatinine level is tr ending up when patient had been off dialysis. The plan is to continue dialysis 3 times per week and monitor creatinine level and electrolytes. 2.Metabolic bone disease. Phosphorus level 2.1. Patient was found to have high PTH, 25-hydroxy vit mackenzie D level is pending. Currently, patient does not require binders. Increase p.o. protein intake according to the protein-calorie intake balance. 3.Hypertension. Continue current medication. 4.Anemia of chronic kidney disease. Continue JOHNNY. 5.Non-ST elevation myocardial infarction. Cardiac catheterization was scheduled. WILLIAM/LAYLA Voice ID: [id number] Report ID: [id number]
[2022-03-26] MEDS: LEVOTHYROXINE SOD 0.1 MG TAB PO SCH (06:20)
[2022-03-26 06:51] LABS: Absolute Lymphocytes (CBC) 0.9 K/uL (0.7-4.9); Lymphocytes % 5.5 % (15.3-44.8); MCV 96.7 fL (80-100); MPV 7.5 fL (7.6-11.3)
[2022-03-26 07:00] LABS: Albumin 2.3 g/dL (3.4-5.0); Phosphorus 3.1 mg/dL (2.5-4.9); Potassium 4.6 mmol/L (3.5-5.1)
--- NOTE | 2022-03-26 07:38 | RAD REPORT ---
EXAM DESCRIPTION: RAD - Chest Single View - 03/26/2022 6:48 am CLINICAL HISTORY: rule out TB - requested by outpt dialysis center COMPARISON: Chest Single View dated 03/21/2022; Chest Single View dated 03/19/2022; Chest Single View da diallo 08/29/2019; Chest Single View dated 02/21/2017 FINDINGS: Lines: Right IJ approach dialysis catheter. Left subclavian approach pacemaker. Lungs: No evidence of edema or pneumonia. Pleural: No significant pleural effusions or pneumothorax. Cardiac: Similar cardiomegaly. Loop recorder overlies the heart. Mediastinum: Within normal limits. Bones: No acute fractures. Other: None IMPRESSION: No acute cardiopulmonary disease. No findings to suggest active TB.
[2022-03-26] MEDS: CEFTRIAXONE 1,000 MG in NA CHLORIDE 0.9% 50 ML IVPB SCH (08:32)
[2022-03-26] MEDS: AMIODARONE HCL 200 MG TAB PO SCH ×2 (08:33→21:55)
[2022-03-26] MEDS: DULOXETINE 20 MG CAP PO SCH (08:33)
[2022-03-26] MEDS: ASPIRIN EC 81 MG TAB PO SCH (08:33)
[2022-03-26] MEDS: METOPROLOL XL 25 MG TAB PO SCH ×2 (08:33→22:03)
[2022-03-26] MEDS: NPH (HUMAN) 100 UNITS/ML INSULIN SQ SCH ×2 (08:38→16:30)
[2022-03-26] MEDS: INSULIN 70/30 100 UNITS/ML SQ SCH ×2 (08:39→22:03)
[2022-03-26] MEDS ORDERED: SOD FERRIC GLUC COMPLX/SUCROSE 125 MG in NA CHLORIDE 0.9% 100 ML IV SCH (14:00)
[2022-03-26] MEDS: CODEINE 30MG/APAP 300MG TAB PO PRN (14:18)
--- NOTE | 2022-03-26 15:20 | PN ---
Date of Progress Note: 03/26/2022 Subjective: The patient was admitted with acute kidney injury secondary to cardiorenal, required initiating on dialysis. The patient has been tolerating the dialysis very well, last dialysis day before yesterday. The patient feeling better. Physical Examination: Vital Signs: Blood pressure 147/67, pulse of 70. Chest: Clear to auscultation. Heart: S1, S2. Systolic murmur. Abdomen: Soft, nontender. Extremity: Trace edema. Neurologic: Alert. No focality. Laboratory Data: Hemoglobin 9.9. Sodium 135, potassium 4.6, bicarb 28, BUN 36, creatinine 2.5, calcium 8.8, phosphorus 3.1, albumin 2.3, corrected calcium is 10. Current Medications: The patient on include; 1. Ceftriaxone. 2. Aspirin. 3. Epogen. 4. Atorvastatin. 5. Amiodarone. 6. Gabapentin. 7. Insulin. Assessment And Plan: 1. Acute kidney injury on advanced chronic kidney disease, progression to end- stage. We will continue dialysis Friday, Friday, Friday. I am going to go ahead and arrange for the dialysis tomorrow. The patient waiting for outpatient setup. 2. Hypertension, controlled. We will utilize blood pressure to establish better volume control. 3. Anemia of chronic kidney disease/iron deficiency anemia. Continue IV iron. Continue JOHNNY. 4. Over volume. We will try to establish better volume control with dialysis. 5. Non-ST segment elevation myocardial infarction, status post cardiac cath. We will follow up with Cardiology. time spend exam the patient face to face , reviewing data lab and radiology placing order , discussing with [facility] member nursing and hospitalist >35 min YUDITH Voice ID: [id number] Report ID: [id number] [facility] HOSPITALLeonardo
--- NOTE | 2022-03-26 17:36 | EKG ---
Test Date: 2022-03-20 Test Time: 21:41:59 [place]: YAO MEASUREMENT RESULTS: Intervals: Rate: 167 AL: 128 QRSD: 162 QT: 284 QTc: 473 [place]: P: AL: 128 QRS: -72 T: 34 INTERPRETIVE STATEMENTS: Sinus tachycardia Right bundle branch block Left anterior fascicular block Bifascicular block Abnormal ECG Compared to ECG 03/20/2022 21:40:51 Fusion complex(es) no longer present Wide-QRS tachycardia no longer present Bifascicular block still present Electronically Signed On 03-26-22 17:21:10 PING PONG TABLE ASSEMBLER by Lui Tomlinson
--- NOTE | 2022-03-26 17:36 | EKG ---
Test Date: 2022-03-20 Test Time: 21:40:51 Junior Mechanical Engineer: YAO MEASUREMENT RESULTS: Intervals: Rate: 167 ID: QRSD: 162 QT: 292 QTc: 487 [place]: P: ID: QRS: -78 T: 42 INTERPRETIVE STATEMENTS: Wide QRS tachycardia with fusion complexes Right bundle branch block Left anterior fascicular block Bifascicular block Abnormal ECG Compared to ECG 03/19/2022 05:49:34 Fusion complex(es) now present Wide-QRS tachycardia now present Left anterior fascicular block now present Bifascicular block now present Sinus rhythm no longer present Electronically Signed On 03-26-22 17:21:22 FACE MAN by Lui Tomlinson
--- NOTE | 2022-03-26 19:41 | P.PN ---
Subjective Date of Service: 03/26/22 Chief Complaint: ACUTE KIDNEY INJURY No acute events overnight. Cardiac catheterization yesterday was concerning for multi-vessel coronary artery disease. Per Dr. Tomlinson, this can be addressed as an outpatient. He has cleared her for discharge. Still waiting for approval for a dialysis chair - CM assistance appreciated. She denies any chest pain, palpitations, or shortness of breath. Review of Systems 10-point ROS is otherwise unremarkable Musculoskeletal: Arm Pain Physical Examination - Vital Signs Temperature: 97.7 F Blood Pressure: 120/56 Pulse: 68 Respirations: 16 Pulse Ox (%): 94 - Studies Medications List Reviewed: Yes Assessment And Plan - Plan - Physical Exam General: Alert, In no apparent distress, Oriented x3 HEENT: Atraumatic, Sclerae nonicteric Neck: JVD not distended Respiratory: Clear to auscultation bilaterally, Normal air movement Cardiovascular: No edema, Regular rate/rhythm, No murmurs Gastrointestinal: Soft, Non-distended, No tenderness Musculoskeletal: No clubbing Integumentary: No rashes Neurological: Normal speech, Normal affect # Non-ST Segment Elevation Myocardial Infarction # History of Cerebrovascular Accident (January 2017) # Severe Pulmonary Hypertension # Moderate Aortic Stenosis # Mild Mitral Stenosis # Hypertension # Dyslipidemia - Evaluation thus far: - EKG: without STEMI criteria, trend - Serial troponin: 557.6 -> 2655.0 -> 5143.0 -> 1508.3 - Transthoracic echocardiogram = "1. normal left ventricular ejection fraction greater than 60% 2. normal wall motion 3. mitral annular calcification with mild mitral stenosis 4. calcified aortic valve with at least moderate aortic stenosis 5. severe pulmonary hypertension with right ventricular systolic pressure greater than 60 mmHg" - Chest x-ray = "no acute cardiopulmonary process." - Management plan: - Consult Cardiology - recommendations appreciated - [facility] (03/25/2022) = "1. Severe left main and LAD disease. 2. Elevated LVEDP. Recommendations: CABG versus high-risk PCI of the left main and the LAD with Impella." - Per Dr. Tomlinson, this can be addressed as an outpatient, he has cleared for discharge - Continue aspirin, atorvastatin, metoprolol - WILDA-inhibitor/ARB not started due to renal function # Paroxysmal Atrial Fibrillation with Rapid Ventricular Response (resolved) # S/P Pacemaker Her [id number] = 7 (HTN=1, Age>75=2, DM=1, CVA=1, CAD=1, Sex=1), which warrants anticoagulation. - Cardiology consulted - recommendations appreciated - For rate control: - Continue metoprolol + amiodarone - For anticoagulation: - Continue heparin drip # Acute Kidney Injury on Chronic Kidney Disease, now with End-Stage Renal Disease on Hemodialysis - Nephrology consulted - recommendations appreciated - Renal ultrasound = "mildly echogenic kidneys bilaterally. This likely indicates underlying medical renal disease." - Renally dose medications # Traumatic Ground-Level Fall complicated by Moderately Displaced Communited Humeral Fracture # Acute Right Foot Fifth Proximal Phalanx Fracture - Left foot x-ray = "no acute findings in the left foot" - Left knee x-ray = "no acute findings in the left knee" - Right knee x-ray = "no acute findings in the right knee" - Right foot x-ray = "suspect acute fracture in the fifth proximal phalanx on the frontal film" - Appreciate CM assistance with SNF placement - Continue PT/OT - PRN pain control - Outpatient Orthopedic evaluation # 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 Appreciate CM assistance. Cr Rueda M.D.
[2022-03-26] MEDS: ATORVASTATIN 80 MG TAB PO SCH (21:55)
[2022-03-26] MEDS: FAMOTIDINE 20 MG TAB PO SCH (21:55)
[2022-03-26] MEDS: GABAPENTIN 100 MG CAP PO SCH (21:56)
[2022-03-27] MEDS: LEVOTHYROXINE SOD 0.1 MG TAB PO SCH (06:30)
[2022-03-27 07:21] LABS: Absolute Lymphocytes (CBC) 1.4 K/uL (0.7-4.9); Hematocrit 27.6 % (36.0-45.0); Lymphocytes % 6.9 % (15.3-44.8); MCV 96.9 fL (80-100); MPV 7.5 fL (7.6-11.3); RBC Red Blood Cell Count 2.85 M/uL (3.86-4.86)
[2022-03-27 07:36] LABS: Potassium 4.7 mmol/L (3.5-5.1)
[2022-03-27] MEDS: CEFTRIAXONE 1,000 MG in NA CHLORIDE 0.9% 50 ML IVPB SCH (08:48)
[2022-03-27] MEDS: DULOXETINE 20 MG CAP PO SCH (08:49)
[2022-03-27] MEDS: CLOPIDOGREL 75 MG TABLET PO SCH (08:50)
[2022-03-27] MEDS: AMIODARONE HCL 200 MG TAB PO SCH ×2 (08:50→21:26)
[2022-03-27] MEDS: METOPROLOL XL 25 MG TAB PO SCH ×2 (08:50→21:00)
[2022-03-27] MEDS: NPH (HUMAN) 100 UNITS/ML INSULIN SQ SCH ×2 (08:51→17:54)
[2022-03-27] MEDS: INSULIN 70/30 100 UNITS/ML SQ SCH ×2 (08:51→21:26)
[2022-03-27] MEDS: APIXABAN 2.5 MG TABLET PO SCH ×2 (08:54→21:26)
[2022-03-27] MEDS ORDERED: APIXABAN 5 MG TABLET PO SCH (09:00)
[2022-03-27] MEDS ORDERED: MAGNESIUM HYDROXIDE 8% 30 ML PO ONE (10:30)
--- NOTE | 2022-03-27 11:39 | RAD REPORT ---
EXAM DESCRIPTION: [place] Single View03/27/2022 9:49 am CLINICAL HISTORY: Leukocytosis COMPARISON: March 26, 2022 FINDINGS: The lungs appear clear of acute infiltrate. The heart is mildly enlarged. Central venous catheter in place IMPRESSION: No acute abnormalities displayed
--- NOTE | 2022-03-27 13:16 | PN ---
Subjective: The patient doing well. Physical Examination: Vital Signs: Blood pressure 116/58, pulse of 72. Chest: Clear to auscultation. Heart: S1, S2. Regular. Abdomen: Soft, nontender. Extremity: Trace edema. Neurologic: Alert. No focality. Laboratory Data: WBC 20.6, hemoglobin 8.6. Sodium 134, potassium 4.7, bicarb 27, BUN 46, creatinine 3.7, calcium 8.2. Current Medications: The patient on include ceftriaxone, heparin, IV iron, Plavix, Epogen, metoprolol, amiodarone, gabapentin, levothyroxine, insulin. Assessment And Plan: 1. Acute kidney injury secondary to cardiorenal, dialysis dependent. We will continue the patient on dialysis Friday, Friday, Friday. We will try to establish better volume control. We will continue to watch for recovery. 2. Hypertension, controlled, optimal. Continue current treatment. 3. Anemia of chronic kidney disease. Continue JOHNNY. 4. Iron deficiency anemia. Continue IV iron. Continue JOHNNY. 5. Congestive heart failure, status post percutaneous transluminal coronary angioplasty. Follow up with Cardiology. 6. Diabetes as by primary. 7. Congestive heart failure with exacerbation. We will try to establish better volume control with diuresis. 8. Secondary hyperparathyroidism. Continue binder. 9. Leukocytosis. We will send culture from the catheter. We will follow up. time spend exam the patient face to face , reviewing data lab and radiology placing order , discussing with [facility] member nursing and hospitalist >35 min YUDITH Voice ID: [id number] Report ID: [id number] MTDD
[2022-03-27] MEDS: EPOETIN ALFA 10,000 UNIT/ML VIAL IV SCH (16:05)
--- NOTE | 2022-03-27 17:34 | P.PN ---
Subjective Date of Service: 03/27/22 Chief Complaint: ACUTE KIDNEY INJURY No acute events overnight. She reports no acute concerns this morning. Her WBC count has spiked this morning, without clear cause. Will initiate further evaluation with CXR and UA. Still waiting for approval for a dialysis chair - CM assistance appreciated. She denies any chest pain, palpitations, or shortness of breath. Review of Systems 10-point ROS is otherwise unremarkable General: Weakness (generalized) Physical Examination - Vital Signs Temperature: 97.7 F Blood Pressure: 137/49 Pulse: 68 Respirations: 17 Pulse Ox (%): 95 - Studies Medications List Reviewed: Yes Assessment And Plan - Plan - Physical Exam General: Alert, In no apparent distress, Oriented x3 HEENT: Atraumatic, Sclerae nonicteric Neck: JVD not distended Respiratory: Clear to auscultation bilaterally, Normal air movement Cardiovascular: No edema, Regular rate/rhythm, No murmurs Gastrointestinal: Soft, Non-distended, No tenderness Musculoskeletal: No clubbing Integumentary: No rashes Neurological: Normal speech, Normal affect # Leukocytosis, unclear etiology - possibly Reactive from pain - Initiated empiric infectious evaluation: CXR, UA, BCx - Hold off on antibiotics at this time given no evidence of infection - Consult Infectious Diseases for further evaluation of leukocytosis - recommendations appreciated # Non-ST Segment Elevation Myocardial Infarction # History of Cerebrovascular Accident (January 2017) # Severe Pulmonary Hypertension # Moderate Aortic Stenosis # Mild Mitral Stenosis # Hypertension # Dyslipidemia - Evaluation thus far: - EKG: without STEMI criteria, trend - Serial troponin: 557.6 -> 2655.0 -> 5143.0 -> 1508.3 - Transthoracic echocardiogram = "1. normal left ventricular ejection fraction greater than 60% 2. normal wall motion 3. mitral annular calcification with mild mitral stenosis 4. calcified aortic valve with at least moderate aortic stenosis 5. severe pulmonary hypertension with right ventricular systolic pressure greater than 60 mmHg" - Chest x-ray = "no acute cardiopulmonary process." - Management plan: - Consult Cardiology - recommendations appreciated - [facility] (03/25/2022) = "1. Severe left main and LAD disease. 2. Elevated LVEDP. Recommendations: CABG versus high-risk PCI of the left main and the LAD with Impella." - Per Dr. Tomlinson, this can be addressed as an outpatient, he has cleared for discharge - Continue aspirin, atorvastatin, metoprolol - WILDA-inhibitor/ARB not started due to renal function # Paroxysmal Atrial Fibrillation with Rapid Ventricular Response (resolved) # S/P Pacemaker Her [id number] = 7 (HTN=1, Age>75=2, DM=1, CVA=1, CAD=1, Sex=1), which warrants anticoagulation. - Cardiology consulted - recommendations appreciated - For rate control: - Continue metoprolol + amiodarone - For anticoagulation: - Continue apixaban # Acute Kidney Injury on Chronic Kidney Disease, now with End-Stage Renal Disease on Hemodialysis - Nephrology consulted - recommendations appreciated - Renal ultrasound = "mildly echogenic kidneys bilaterally. This likely indicates underlying medical renal disease." - Renally dose medications # Traumatic Ground-Level Fall complicated by Moderately Displaced Communited Humeral Fracture # Acute Right Foot Fifth Proximal Phalanx Fracture - Left foot x-ray = "no acute findings in the left foot" - Left knee x-ray = "no acute findings in the left knee" - Right knee x-ray = "no acute findings in the right knee" - Right foot x-ray = "suspect acute fracture in the fifth proximal phalanx on the frontal film" - Appreciate CM assistance with SNF placement - Continue PT/OT - PRN pain control - Outpatient Orthopedic evaluation # 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
[2022-03-27] MEDS ORDERED: MINERAL OIL ENEMA 135 ML BTL PR SCH (18:04)
[2022-03-27] MEDS: ATORVASTATIN 80 MG TAB PO SCH (21:26)
[2022-03-27] MEDS: FAMOTIDINE 20 MG TAB PO SCH (21:26)
[2022-03-27] MEDS: GABAPENTIN 100 MG CAP PO SCH (21:26)
[2022-03-28 04:14] LABS: Absolute Lymphocytes (CBC) 1.2 K/uL (0.7-4.9); Hematocrit 24.3 % (36.0-45.0); Lymphocytes % 5.3 % (15.3-44.8); MCV 97.2 fL (80-100); MPV 7.1 fL (7.6-11.3)
[2022-03-28 04:29] LABS: Potassium 4.5 mmol/L (3.5-5.1)
[2022-03-28 05:07] LABS: Platelet Estimate ADEQ
[2022-03-28 05:08] LABS: Basophilic Stippling 1+; Blood Morphology Comment NOT SEEN (NOT SEEN)
[2022-03-28] MEDS: LEVOTHYROXINE SOD 0.1 MG TAB PO SCH (06:10)
[2022-03-28] MEDS ORDERED: POLYETHYL GLY 3350 17 GM/DOSE PO PRN (08:04)
[2022-03-28] MEDS: METOPROLOL XL 25 MG TAB PO SCH ×2 (08:07→19:56)
[2022-03-28] MEDS: DULOXETINE 20 MG CAP PO SCH (08:07)
[2022-03-28] MEDS: CLOPIDOGREL 75 MG TABLET PO SCH (08:08)
[2022-03-28] MEDS: AMIODARONE HCL 200 MG TAB PO SCH ×2 (08:08→19:55)
[2022-03-28] MEDS: APIXABAN 2.5 MG TABLET PO SCH ×2 (08:08→19:47)
[2022-03-28] MEDS: DOCUSATE NA 100 MG CAP PO SCH ×2 (09:21→19:47)
[2022-03-28] MEDS: NPH (HUMAN) 100 UNITS/ML INSULIN SQ SCH ×2 (09:21→16:45)
[2022-03-28] MEDS: POLYETHYL GLY 3350 17 GM/DOSE PO SCH (09:21)
[2022-03-28] MEDS: INSULIN 70/30 100 UNITS/ML SQ SCH ×2 (09:21→19:48)
--- NOTE | 2022-03-28 10:34 | P.CNS ---
Date of Consult: 03/28/22 Chief Complaint: ACUTE KIDNEY INJURY History of Present Illness: Patient is an 81-year-old female who presents to the emergency room with acute kidney failure. She fell a few days ago and has fallen once again. She suffered a comminuted moderately displaced humeral fracture appears to be supracondylar. This was splinted and patient is to follow up with Dr. Wiggins. At home patient fell once again. patient came to our hospital and she was found to have acute renal insufficiency. Patient's troponins are also significantly elevated. Patient is not having significant chest pain. Nephrology consultation as well as cardiology consultation is pending. Patient will also need to be evaluated for possible hemodialysis. Patient will be in the hospital for 4-5 days. ID has been consulted for unknown reason of elevated WBC Allergies No Known Allergies Allergy (Verified 08/27/19 22:08) Home Medications: Atorvastatin Calcium [Lipitor] 1 tab PO BEDTIME 05/08/17 Duloxetine [Cymbalta *] 1 cap PO DAILY 05/08/17 Famotidine [Pepcid*] 1 tab PO BEDTIME 05/08/17 Apixaban [Eliquis] 1 tab PO BID 08/28/19 Docusate Sodium 100 mg PO DAILY PRN 08/28/19 Furosemide 80 mg PO DAILY 08/28/19 Gabapentin 200 mg PO BEDTIME 08/28/19 Hum Insulin NPH/Reg Insulin Hm [Humulin 70-30 Vial] 25 unit SQ BID 08/28/19 Acetaminophen with Codeine [Acetaminophen-Cod #3 Tablet] 1 tab PO PRN PRN 03/19/22 Levothyroxine Sodium [Levothyroxine] 175 mcg PO DAILY 03/19/22 Metoprolol Succinate [Toprol Xl*] 25 mg PO DAILY 03/19/22 cloNIDine HCL [Catapres*] 0.1 mg PO BID 03/19/22 - Past Medical/Surgical History Diabetic: Yes -: 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 -: IDDiabetic -: HTN -: foot infection 04/2017 -: NEUROPATHY -: HLD -: HYPOTHYROIDISM -: has medtronic insertable satellite project site monitor -: chronic osteomyelitis with non-healing ulcer right great toe s/p fall(2017) -: afib vs supraventricular tachycardia -: thyroidectomy -: cataract sx -: hysterectomy - Family History Mother Medical History: Hypertension Father Medical History: Diabetes - Social History Smoking Status: Never smoker Alcohol use: No CD- Drugs: No Caffeine use: Yes Place of Residence: Home Review of Systems 10-point ROS is otherwise unremarkable Gastrointestinal: Constipation Physical Examination Temp Pulse Resp BP Pulse Ox 97.2 F 64 17 132/59 L 99 03/28/22 08:00 03/28/22 08:07 03/28/22 08:00 03/28/22 08:07 03/28/22 08:00 General: Alert, In no apparent distress, Oriented x3 Respiratory: Clear to auscultation bilaterally, Other (2 L NC support) Cardiovascular: Other (murmur; generalized non-pitting edema) Gastrointestinal: Normal bowel sounds Musculoskeletal: Other (humeral fracture, splint in place) Integumentary: Other (bruising in right upper arm) Neurological: Other (right side weakness due to prior stroke) Urinary: Dialysis catheter (TDC right chest; clean and dry), Other active medications Acetaminophen/Codeine Phosphate (Codeine 30mg/Apap 300mg Tab) 1 tab PO Q6H PRN PRN Reason: Pain scale 5-7 (Moderate) Last Admin: 03/26/22 14:18 Dose: 1 tab Amiodarone HCl (Amiodarone Hcl 200 Mg Tab) 400 mg PO BID [facility] Last Admin: 03/28/22 08:08 Dose: 400 mg Apixaban (Apixaban 2.5 Mg Tablet) 2.5 mg PO BID [facility] Last Admin: 03/28/22 08:08 Dose: 2.5 mg Atorvastatin Calcium (Atorvastatin 80 Mg Tab) 80 mg PO BEDTIME [facility] Last Admin: 03/27/22 21:26 Dose: 80 mg Clopidogrel Bisulfate (Clopidogrel 75 Mg Tablet) 75 mg PO DAILY [facility] Last Admin: 03/28/22 08:08 Dose: 75 mg Dextrose (D10w 250 Ml Bag) 125 ml IV PRN PRN; Protocol PRN Reason: HYPOGLYCEMIA Last Admin: 03/26/22 06:49 Dose: 250 ml Docusate Sodium (Docusate Na 100 Mg Cap) 100 mg PO BID [facility] Last Admin: 03/28/22 09:21 Dose: 100 mg Duloxetine HCl (Duloxetine 20 Mg Cap) 20 mg PO DAILY [facility] Last Admin: 03/28/22 08:07 Dose: 20 mg Epoetin Ankit (Epoetin Ankit 10,000 Unit/Ml Vial) 10,000 unit IV EVERY HD [facility] Last Admin: 03/27/22 16:05 Dose: 10,000 unit Famotidine (Famotidine 20 Mg Tab) 20 mg PO BEDTIME [facility]; Protocol Last Admin: 03/27/22 21:26 Dose: 20 mg Gabapentin (Gabapentin 100 Mg Cap) 200 mg PO BEDTIME JOLENE Last Admin: 03/27/22 21:26 Dose: 200 mg Glucagon (Glucagon 1 Mg/Vial) 1 mg IM 1X PRN; Protocol PRN Reason: HYPOGLYCEMIA Heparin Sodium (Porcine) (Heparin 1,000 Unit/Ml Vial) 3,000 unit IV EVERY HD PRN PRN Reason: Prevent Lines Clotting Last Admin: 03/27/22 13:42 Dose: 3,000 unit Heparin Sodium (Porcine) (Heparin 1,000 Unit/Ml Vial) 4,000 unit IV EVERY HD PRN PRN Reason: DIALYSIS CATHERER CARE Last Admin: 03/27/22 16:18 Dose: 4,000 unit Ferric Sodium Gluconate Complex 125 mg/ Sodium Chloride 110 mls @ 55 mls/hr IV EVERY HD [facility] Stop: 03/29/22 15:59 Insulin Human Isoph/Insulin Regular (Insulin 70/30 100 Units/Ml) 25 unit SQ BID [facility] Last Admin: 03/28/22 09:21 Dose: 25 units Insulin Human NPH (Nph (Human) 100 Units/Ml Insulin) 20 units SQ BIDWM [facility] Last Admin: 03/28/22 09:21 Dose: 20 units Levothyroxine Sodium (Levothyroxine Sod 0.1 Mg Tab) 0.2 mg PO DAILYAC [facility] Last Admin: 03/28/22 06:10 Dose: 0.2 mg Metoprolol Succinate (Metoprolol Xl 25 Mg Tab) 25 mg PO BID [facility] Last Admin: 03/28/22 08:07 Dose: 25 mg Morphine Sulfate (Morphine 2 Mg/Ml Syr) 2 mg IV Q4H PRN PRN Reason: Pain scale 8-10 (Severe) Last Admin: 03/20/22 16:50 Dose: 2 mg Polyethylene Glycol (Polyethyl Gly 3350 17 Gm/Dose) 17 gm PO DAILY [facility] Last Admin: 03/28/22 09:21 Dose: 17 gm Sodium Chloride (Flush Normal Saline 10 Ml) 10 ml IV BID [facility] Last Admin: 03/28/22 08:08 Dose: 10 ml Imagings Data: RADChest Single View03/27/2022 FINDINGS: The lungs appear clear of acute infiltrate. The heart is mildly enlarged. Central venous catheter in place IMPRESSION: No acute abnormalities displayed RAD - Chest Single View - 03/26/2022 FINDINGS: Lines: Right IJ approach dialysis catheter. Left subclavian approach pacemaker. Lungs: No evidence of edema or pneumonia. Pleural: No significant pleural effusions or pneumothorax. Cardiac: Similar cardiomegaly. Loop recorder overlies the heart. Mediastinum: Within normal limits. Bones: No acute fractures. Other: None IMPRESSION: No acute cardiopulmonary disease. No findings to suggest active TB. 03/25/2022 Procedures Performed: 1. Selective coronary angiogram 2. Left heart catheterization RAD - Chest Single View - 03/21/2022 COMPARISON: Chest Single View dated 03/19/2022; Chest Single View dated 08/29/2019; Chest Single View dated 02/21/2017; Chest Single View dated 01/30/2017 FINDINGS: Portable technique limits examination quality. Right-sided venous catheter is in place with tip in the SVC. No postprocedure pneumothorax seen. No significant change in lung aeration since comparative study. 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 Beal N Thank you Dr. Rueda for consultation
[2022-03-28] MEDS ORDERED: MINERAL OIL ENEMA 135 ML BTL PR SCH (13:00)
--- NOTE | 2022-03-28 13:25 | PN ---
Date of Progress Note: 03/28/2022 Subjective: The patient was admitted with acute kidney injury secondary to cardiorenal. The patient was initiated on dialysis. The patient had deconditioning. Waiting for her rehab placement. Physical Examination: Vital Signs: Blood pressure 132/59, pulse of 64. Chest: Faint crackles bilateral. Heart: S1, S2. Regular. Abdomen: Soft, nontender. Extremity: No edema. Neuro: Alert. No focality. Laboratory Data: WBC 22.7, hemoglobin 7.9. Sodium 136, potassium 4.5, bicarb 28, BUN 30, creatinine 3.1, calcium 8.8. Current Medications: The patient on include; 1. Heparin. 2. IV iron. 3. Plavix. 4. Epogen. 5. Atorvastatin. 6. Amiodarone. 7. Metoprolol. 8. Gabapentin. 9. Levothyroxine. 10. Insulin. 11. Codeine. Assessment And Plan: 1. Acute kidney injury on advanced chronic kidney disease, dialysis dependent. I am going to go ahead and continue on dialysis. The patient approved for outpatient dialysis. We will follow up. 2. Hypertension, controlled, optimal. Continue current treatment. 3. Anemia of chronic kidney disease/iron deficiency anemia. Continue IV iron and Epogen. 4. Secondary hyperparathyroidism, stable. No need for binder. 5. Coronary artery disease, status post cardiac cath. We will follow up with Cardiology. 6. Deconditioning. Continue PT/OT. time spend exam the patient face to face , reviewing data lab and radiology placing order , discussing with [facility] member nursing and hospitalist >35 min YUDITH Voice ID: [id number] Report ID: [id number] XIAO
[2022-03-28 17:18] LABS: Absolute Lymphocytes (CBC) 1.5 K/uL (0.7-4.9); Hematocrit 25.5 % (36.0-45.0); Lymphocytes % 5.7 % (15.3-44.8); MCV 97.7 fL (80-100); MPV 7.8 fL (7.6-11.3); RBC Red Blood Cell Count 2.61 M/uL (3.86-4.86)
--- NOTE | 2022-03-28 17:32 | P.PN ---
Subjective Date of Service: 03/28/22 Chief Complaint: ACUTE KIDNEY INJURY No acute events overnight. She reports that she feels well; however, her leukocytosis continues to worsen. Infectious Diseases consulted and recommended empiric meropenem. Still waiting for approval for a dialysis chair - assistance appreciated. She denies any chest pain, palpitations, or shortness of breath. Review of Systems 10-point ROS is otherwise unremarkable Musculoskeletal: Arm Pain Physical Examination - Vital Signs Temperature: 96.8 F Blood Pressure: 131/59 Pulse: 80 Respirations: 18 Pulse Ox (%): 100 - Studies Medications List Reviewed: Yes Assessment And Plan - Plan - Physical Exam General: Alert, In no apparent distress, Oriented x3 HEENT: Atraumatic, Sclerae nonicteric Neck: JVD not distended Respiratory: Clear to auscultation bilaterally, Normal air movement Cardiovascular: No edema, Regular rate/rhythm, No murmurs Gastrointestinal: Soft, Non-distended, No tenderness Musculoskeletal: No clubbing Integumentary: No rashes Neurological: Normal speech, Normal affect # Leukocytosis, unclear etiology - possibly Reactive from pain - Consulted Infectious Diseases - recommendations appreciated - Recommended empiric meropenem - Chest x-ray = "no acute abnormalities displayed" - UA = pending - BCx = NGTD # Non-ST Segment Elevation Myocardial Infarction # History of Cerebrovascular Accident (January 2017) # Severe Pulmonary Hypertension # Moderate Aortic Stenosis # Mild Mitral Stenosis # Hypertension # Dyslipidemia - Evaluation thus far: - EKG: without STEMI criteria, trend - Serial troponin: 557.6 -> 2655.0 -> 5143.0 -> 1508.3 - Transthoracic echocardiogram = "1. normal left ventricular ejection fraction greater than 60% 2. normal wall motion 3. mitral annular calcification with mild mitral stenosis 4. calcified aortic valve with at least moderate aortic stenosis 5. severe pulmonary hypertension with right ventricular systolic pressure greater than 60 mmHg" - Chest x-ray = "no acute cardiopulmonary process." - Management plan: - Consult Cardiology - recommendations appreciated - [facility] (03/25/2022) = "1. Severe left main and LAD disease. 2. Elevated LVEDP. Recommendations: CABG versus high-risk PCI of the left main and the LAD with Impella." - Per Dr. Tomlinson, this can be addressed as an outpatient, he has adarsh smith for discharge - Continue aspirin, atorvastatin, metoprolol - WILDA-inhibitor/ARB not started due to renal function # Paroxysmal Atrial Fibrillation with Rapid Ventricular Response (resolved) # S/P Pacemaker Her [id number] = 7 (HTN=1, Age>75=2, DM=1, CVA=1, CAD=1, Sex=1), which warrants anticoagulation. - Cardiology consulted - recommendations appreciated - For rate control: - Continue metoprolol + amiodarone - For anticoagulation: - Continue apixaban # Acute Kidney Injury on Chronic Kidney Disease, now with End-Stage Renal Disease on Hemodialysis - Nephrology consulted - recommendations appreciated - Renal ultrasound = "mildly echogenic kidneys bilaterally. This likely indicates underlying medical renal disease." - Renally dose medications # Traumatic Ground-Level Fall complicated by Moderately Displaced Communited Humeral Fracture # Acute Right Foot Fifth Proximal Phalanx Fracture - Left foot x-ray = "no acute findings in the left foot" - Left knee x-ray = "no acute findings in the left knee" - Right knee x-ray = "no acute findings in the right knee" - Right foot x-ray = "suspect acute fracture in the fifth proximal phalanx on the frontal film" - Appreciate CM assistance with SNF placement - Continue PT/OT - PRN pain control - Outpatient Orthopedic evaluation # 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
[2022-03-28 18:15] LABS: Blood Morphology Comment NOTED (NOT SEEN); Platelet Estimate ADEQ; Polychromasia 1+
[2022-03-28 18:16] LABS: Burr Cells 1+
[2022-03-28] MEDS: Meropenem 500 MG in NA CHLORIDE 0.9% 100 ML IV SCH (18:24)
[2022-03-28 19:30] LABS: Urine Bacteria <20 /HPF (<20); Urine Bilirubin NEGATIVE (Negative); Urine Blood 2+ (Negative); Urine Clarity Extremely Turbid (Clear); Urine Color Orange (Yellow); Urine Crystals Unidentified Many /HPF (None Seen); Urine Glucose NEGATIVE (Negative); Urine Mucus Slight /HPF (None Seen); Urine Protein 2+ (Negative); Urine RBC >50 /HPF (None Seen); Urine Urobilinogen Normal (Normal); Urine WBC Clump Many /HPF (None Seen); Urine pH 5.5 (5.0-7.0)
[2022-03-28] MEDS: ATORVASTATIN 80 MG TAB PO SCH (19:47)
[2022-03-28] MEDS: CODEINE 30MG/APAP 300MG TAB PO PRN (19:47)
[2022-03-28] MEDS: FAMOTIDINE 20 MG TAB PO SCH (19:48)
[2022-03-28] MEDS: FLUCONAZOLE 200mg IVPB 200 MG/100 ML BAG IV SCH (19:48)
[2022-03-28] MEDS: GABAPENTIN 100 MG CAP PO SCH (19:48)
[2022-03-29] MEDS: MORPHINE 2 MG/ML SYR IV PRN (03:42)
[2022-03-29 05:23] LABS: Potassium 5.1 mmol/L (3.5-5.1)
[2022-03-29 05:25] LABS: Absolute Lymphocytes (CBC) 1.3 K/uL (0.7-4.9); Lymphocytes % 5.1 % (15.3-44.8); MCV 98.5 fL (80-100); MPV 7.6 fL (7.6-11.3); RBC Red Blood Cell Count 2.84 M/uL (3.86-4.86)
[2022-03-29] MEDS: LEVOTHYROXINE SOD 0.1 MG TAB PO SCH (06:07)
[2022-03-29] MEDS: Meropenem 500 MG in NA CHLORIDE 0.9% 100 ML IV SCH ×2 (06:09→17:19)
[2022-03-29] MEDS: FLUCONAZOLE 200mg IVPB 200 MG/100 ML BAG IV SCH (08:04)
[2022-03-29] MEDS: CLOPIDOGREL 75 MG TABLET PO SCH (08:04)
[2022-03-29] MEDS: DULOXETINE 20 MG CAP PO SCH (08:04)
[2022-03-29] MEDS: AMIODARONE HCL 200 MG TAB PO SCH ×2 (08:04→20:11)
[2022-03-29] MEDS: POLYETHYL GLY 3350 17 GM/DOSE PO SCH (08:04)
[2022-03-29] MEDS: APIXABAN 2.5 MG TABLET PO SCH ×2 (08:04→20:11)
[2022-03-29] MEDS: DOCUSATE NA 100 MG CAP PO SCH ×2 (08:04→20:10)
[2022-03-29] MEDS: METOPROLOL XL 25 MG TAB PO SCH ×2 (09:00→20:11)
[2022-03-29] MEDS: INSULIN 70/30 100 UNITS/ML SQ SCH ×2 (09:09→20:11)
[2022-03-29] MEDS: NPH (HUMAN) 100 UNITS/ML INSULIN SQ SCH ×2 (09:10→17:20)
--- NOTE | 2022-03-29 09:49 | P.PN ---
Subjective Date of Service: 03/29/22 Chief Complaint: ACUTE KIDNEY INJURY Patient lying in bed with family members at the bedside. No major event upon examination. On 2 L NC support Physical Examination - Vital Signs Temperature: 96.8 F Blood Pressure: 137/56 Pulse: 65 Respirations: 16 Pulse Ox (%): 100 - Physical Exam General: Alert, In no apparent distress, Oriented x3 Respiratory: Clear to auscultation bilaterally, Other (2 L NC support) Cardiovascular: Other (murmur; ), Edema (generalized non-pitting edema) Gastrointestinal: Normal bowel sounds Musculoskeletal: Other (humeral fracture, splint in place) Integumentary: Other (bruising in right upper arm) Neurological: Other (right side weakness due to prior stroke) Urinary: Dialysis catheter (TDC right chest; clean and dry) - Studies active medications Acetaminophen/Codeine Phosphate (Codeine 30mg/Apap 300mg Tab) 1 tab PO Q6H PRN PRN Reason: Pain scale 5-7 (Moderate) Last Admin: 03/29/22 10:41 Dose: 1 tab Amiodarone HCl (Amiodarone Hcl 200 Mg Tab) 400 mg PO BID [facility] Last Admin: 03/29/22 08:04 Dose: 400 mg Apixaban (Apixaban 2.5 Mg Tablet) 2.5 mg PO BID [facility] Last Admin: 03/29/22 08:04 Dose: 2.5 mg Atorvastatin Calcium (Atorvastatin 80 Mg Tab) 80 mg PO BEDTIME [facility] Last Admin: 03/28/22 19:47 Dose: 80 mg Clopidogrel Bisulfate (Clopidogrel 75 Mg Tablet) 75 mg PO DAILY [facility] Last Admin: 03/29/22 08:04 Dose: 75 mg Dextrose (D10w 250 Ml Bag) 125 ml IV PRN PRN; Protocol PRN Reason: HYPOGLYCEMIA Last Admin: 03/26/22 06:49 Dose: 250 ml Docusate Sodium (Docusate Na 100 Mg Cap) 100 mg PO BID [facility] Last Admin: 03/29/22 08:04 Dose: 100 mg Duloxetine HCl (Duloxetine 20 Mg Cap) 20 mg PO DAILY [facility] Last Admin: 03/29/22 08:04 Dose: 20 mg Epoetin Ankit (Epoetin Ankit 10,000 Unit/Ml Vial) 10,000 unit IV EVERY HD [facility] Last Admin: 03/27/22 16:05 Dose: 10,000 unit Famotidine (Famotidine 20 Mg Tab) 20 mg PO BEDTIME JOLENE; Protocol Last Admin: 03/28/22 19:48 Dose: 20 mg Gabapentin (Gabapentin 100 Mg Cap) 200 mg PO BEDTIME [facility] Last Admin: 03/28/22 19:48 Dose: 200 mg Glucagon (Glucagon 1 Mg/Vial) 1 mg IM 1X PRN; Protocol PRN Reason: HYPOGLYCEMIA Heparin Sodium (Porcine) (Heparin 1,000 Unit/Ml Vial) 3,000 unit IV EVERY HD PRN PRN Reason: Prevent Lines Clotting Last Admin: 03/27/22 13:42 Dose: 3,000 unit Heparin Sodium (Porcine) (Heparin 1,000 Unit/Ml Vial) 4,000 unit IV EVERY HD PRN PRN Reason: DIALYSIS CATHERER CARE Last Admin: 03/27/22 16:18 Dose: 4,000 unit Ferric Sodium Gluconate Complex 125 mg/ Sodium Chloride 110 mls @ 55 mls/hr IV EVERY HD JOLENE Stop: 03/29/22 15:59 Meropenem 500 mg/ Sodium (Chloride) 100 mls @ 200 mls/hr IV Q12H JOLEEN Last Admin: 03/29/22 06:09 Dose: 100 mls Fluconazole (Diflucan 200 Mg/100 Ml Ivpb (Premix)) 200 mg in 100 mls @ 100 mls/hr IV DAILY JOLENE; Protocol Last Admin: 03/29/22 08:04 Dose: 100 mls Insulin Human Isoph/Insulin Regular (Insulin 70/30 100 Units/Ml) 25 unit SQ BID JOLENE Last Admin: 03/29/22 09:09 Dose: 25 units Insulin Human NPH (Nph (Human) 100 Units/Ml Insulin) 20 units SQ BIDWM JOLENE Last Admin: 03/29/22 09:10 Dose: 20 units Levothyroxine Sodium (Levothyroxine Sod 0.1 Mg Tab) 0.2 mg PO DAILYAC JOLENE Last Admin: 03/29/22 06:07 Dose: 0.2 mg Metoprolol Succinate (Metoprolol Xl 25 Mg Tab) 25 mg PO BID [facility] Last Admin: 03/29/22 09:00 Dose: Not Given Morphine Sulfate (Morphine 2 Mg/Ml Syr) 2 mg IV Q4H PRN PRN Reason: Pain scale 8-10 (Severe) Last Admin: 03/29/22 03:42 Dose: 2 mg Polyethylene Glycol (Polyethyl Gly 3350 17 Gm/Dose) 17 gm PO DAILY [facility] Last Admin: 03/29/22 08:04 Dose: 17 gm Sodium Chloride (Flush Normal Saline 10 Ml) 10 ml IV BID [facility] Last Admin: 03/29/22 08:05 Dose: 10 ml Medications List Reviewed: Yes Assessment And Plan - Current Problems (Diagnosis) (1) UTI (urinary tract infection) Plan: Cultures: - 03/28 UA: Positive with leukocyte esterase, WBC, RBC, WBC clumps, yeast, hyaline cast; Pending for culture - 03/27 BC x 4: Negative Antibiotics: - On IV Meropenem (03/31- ) Recommendations: - Continue IV Meropenem - ID will recommend antibiotic drug of choice when culture is available (2) Leukocytosis Plan: Most likely due to UTI WBC: - 03/27: 20.6 - 03/28: 22.7 - 03/28: 26 - 03/29: 24.6 Procalcitonin level: 0.94, elevated Antibiotics: - On IV Meropenem (03/31- ) Recommendations: - Continue IV Meropenem - Plan - UTI: Continue IV Meropenem - ACS (acute coronary syndrome) - Humeral fracture - Acute renal insufficiency - Atrial fibrillation - Diabetes - Nephrotic syndrome - 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 - IDDiabetic - HTN - Foot infection 04/2017 - NEUROPATHY - HLD - HYPOTHYROIDISM - 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 Beal, N
[2022-03-29] MEDS: CODEINE 30MG/APAP 300MG TAB PO PRN (10:41)
--- NOTE | 2022-03-29 10:41 | P.PN ---
Subjective Date of Service: 03/29/22 Chief Complaint: ACUTE KIDNEY INJURY No acute events overnight. She reports generalized malaise/fatigue this morning. Her urinalysis was collected and was concerning for a fungal urinary tract infection. She has been accepted to SNF, but will hold discharge today due to worsening leukocytosis. Appreciate Infectious Diseases recommendations. Review of Systems 10-point ROS is otherwise unremarkable General: Malaise Genitourinary: Dysuria Physical Examination - Vital Signs Temperature: 96.8 F Blood Pressure: 137/56 Pulse: 65 Respirations: 16 Pulse Ox (%): 100 - Studies Medications List Reviewed: Yes Assessment And Plan - Plan - Physical Exam General: Alert, In no apparent distress, Oriented x3 HEENT: Atraumatic, Sclerae nonicteric Neck: JVD not distended Respiratory: Clear to auscultation bilaterally, Normal air movement Cardiovascular: No edema, Regular rate/rhythm, No murmurs Gastrointestinal: Soft, Non-distended, No tenderness Musculoskeletal: No clubbing Integumentary: No rashes Neurological: Normal speech, Normal affect # Suspect Fungal Urinary Tract Infection - Does not currently meet sepsis criteria - Consulted Infectious Diseases - recommendations appreciated - Recommended empiric meropenem - Chest x-ray = "no acute abnormalities displayed" - UA = 2+ blood, 500 leukocytes esterase, >50 RBCs, >50 WBCs, >20 hyaline casts, many yeast, 2+ protein - BCx = NGTD - Started fluconazole # Non-ST Segment Elevation Myocardial Infarction # History of Cerebrovascular Accident (January 2017) # Severe Pulmonary Hypertension # Moderate Aortic Stenosis # Mild Mitral Stenosis # Hypertension # Dyslipidemia - Evaluation thus far: - EKG: without STEMI criteria, trend - Serial troponin: 557.6 -> 2655.0 -> 5143.0 -> 1508.3 - Transthoracic echocardiogram = "1. normal left ventricular ejection fraction greater than 60% 2. normal wall motion 3. mitral annular calcification with mild mitral stenosis 4. calcified aortic valve with at least moderate aortic stenosis 5. severe pulmonary hypertension with right ventricular systolic pressure greater than 60 mmHg" - Chest x-ray = "no acute cardiopulmonary process." - Management plan: - Consult Cardiology - recommendations appreciated - [facility] (03/25/2022) = "1. Severe left main and LAD disease. 2. Elevated LVEDP. Recommendations: CABG versus high-risk PCI of the left main and the LAD with Impella." - Per Dr. Tomlinson, this can be addressed as an outpatient, he has cleared for discharge - Continue aspirin, atorvastatin, metoprolol - WILDA-inhibitor/ARB not started due to renal function # Paroxysmal Atrial Fibrillation with Rapid Ventricular Response (resolved) # S/P Pacemaker Her [id number] = 7 (HTN=1, Age>75=2, DM=1, CVA=1, CAD=1, Sex=1), which warrants anticoagulation. - Cardiology consulted - recommendations appreciated - For rate control: - Continue metoprolol + amiodarone - For anticoagulation: - Continue apixaban # Acute Kidney Injury on Chronic Kidney Disease, now with End-Stage Renal Disease on Hemodialysis - Nephrology consulted - recommendations appreciated - Renal ultrasound = "mildly echogenic kidneys bilaterally. This likely indicates underlying medical renal disease." - Renally dose medications # Traumatic Ground-Level Fall complicated by Moderately Displaced Communited Right Humeral Fracture # Acute Right Foot Fifth Proximal Phalanx Fracture - Left foot x-ray = "no acute findings in the left foot" - Left knee x-ray = "no acute findings in the left knee" - Right knee x-ray = "no acute findings in the right knee" - Right foot x-ray = "suspect acute fracture in the fifth proximal phalanx on the frontal film" - Appreciate CM assistance with SNF placement - Continue PT/OT - PRN pain control - Outpatient Orthopedic evaluation # 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
--- NOTE | 2022-03-29 13:21 | P.PN ---
Subjective Date of Service: 03/29/22 Chief Complaint: ACUTE KIDNEY INJURY Subjective: No new changes Physical Examination - Vital Signs Temperature: 96.8 F Blood Pressure: 137/56 Pulse: 65 Respirations: 16 Pulse Ox (%): 100 - Physical Exam General: Other (chronically ill-appearing) HEENT: Atraumatic, Normocephalic Neck: Supple, JVD not distended Respiratory: Other (symmetric chest expansion) Cardiovascular: No rubs, No murmurs Gastrointestinal: Soft and benign Musculoskeletal: No clubbing Integumentary: No warmth Neurological: Normal tone Urinary: Other (no bladder distention) External genitalia: Deferred Rectal: Deferred - Studies Medications List Reviewed: Yes Assessment And Plan - Plan 1. Acute kidney injury secondary to cardiorenal, poor perfusion, ATN, oliguric. TDC placed on 03/21. HD received today. Approved for outpt HD. Cont HD MWF. 2. Volume overload. HD today. 3. Hyponatremia. Correction via HD. 4. DM2. Mngt per primary team. 5. Hypertension. Cont current med regimen. 6. Anemia of chronic kidney disease. JOHNNY qMWF. 7. Non-ST elevation myocardial infarction. S/p cardiac cath.
[2022-03-29] MEDS: EPOETIN ALFA 10,000 UNIT/ML VIAL IV SCH (14:00)
[2022-03-29] MEDS: ATORVASTATIN 80 MG TAB PO SCH (20:10)
[2022-03-29] MEDS: FAMOTIDINE 20 MG TAB PO SCH (20:10)
[2022-03-29] MEDS: GABAPENTIN 100 MG CAP PO SCH (20:10)
[2022-03-30] MEDS: CODEINE 30MG/APAP 300MG TAB PO PRN ×2 (03:35→16:54)
[2022-03-30] MEDS: LEVOTHYROXINE SOD 0.1 MG TAB PO SCH (05:22)
[2022-03-30] MEDS: Meropenem 500 MG in NA CHLORIDE 0.9% 100 ML IV SCH ×2 (05:23→17:00)
[2022-03-30 05:56] LABS: Hematocrit 23.2 % (36.0-45.0); Lymphocytes % 3.9 % (15.3-44.8); MCV 98.5 fL (80-100); MPV 7.2 fL (7.6-11.3); RBC Red Blood Cell Count 2.36 M/uL (3.86-4.86)
[2022-03-30 06:19] LABS: Potassium 4.9 mmol/L (3.5-5.1)
[2022-03-30] MEDS: POLYETHYL GLY 3350 17 GM/DOSE PO SCH (08:01)
[2022-03-30] MEDS: FLUCONAZOLE 200mg IVPB 200 MG/100 ML BAG IV SCH (08:02)
[2022-03-30] MEDS: CLOPIDOGREL 75 MG TABLET PO SCH (08:02)
[2022-03-30] MEDS: DOCUSATE NA 100 MG CAP PO SCH ×2 (08:02→20:33)
[2022-03-30] MEDS: DULOXETINE 20 MG CAP PO SCH (08:02)
[2022-03-30] MEDS: APIXABAN 2.5 MG TABLET PO SCH ×2 (08:02→20:33)
[2022-03-30] MEDS: AMIODARONE HCL 200 MG TAB PO SCH ×2 (08:02→20:33)
[2022-03-30] MEDS: METOPROLOL XL 25 MG TAB PO SCH ×2 (08:03→20:32)
[2022-03-30] MEDS: INSULIN 70/30 100 UNITS/ML SQ SCH ×2 (09:05→20:34)
[2022-03-30] MEDS: NPH (HUMAN) 100 UNITS/ML INSULIN SQ SCH ×2 (09:05→16:54)
--- NOTE | 2022-03-30 13:41 | P.PN ---
Subjective Date of Service: 03/30/22 Chief Complaint: ACUTE KIDNEY INJURY No acute events overnight. She reports generalized malaise/fatigue, which is unchanged compared to yesterday. Her urine culture returned positive for Melba Albicans. She has been accepted to SNF, but will hold discharge today due to worsening leukocytosis. Appreciate Infectious Diseases recommendations. Review of Systems 10-point ROS is otherwise unremarkable General: Weakness, Malaise Physical Examination - Vital Signs Temperature: 98.3 F Blood Pressure: 131/60 Pulse: 59 Respirations: 18 Pulse Ox (%): 98 - Studies Medications List Reviewed: Yes Assessment And Plan - Plan - Physical Exam General: Alert, In no apparent distress, Oriented x3 HEENT: Atraumatic, Sclerae nonicteric Neck: JVD not distended Respiratory: Clear to auscultation bilaterally, Normal air movement Cardiovascular: No edema, Regular rate/rhythm, No murmurs Gastrointestinal: Soft, Non-distended, No tenderness Musculoskeletal: No clubbing Integumentary: No rashes Neurological: Normal speech, Normal affect # Melba Albicans Urinary Tract Infection - Does not currently meet sepsis criteria - Consulted Infectious Diseases - recommendations appreciated - Recommended empiric meropenem - Chest x-ray = "no acute abnormalities displayed" - UA = 2+ blood, 500 leukocytes esterase, >50 RBCs, >50 WBCs, >20 hyaline casts, many yeast, 2+ protein - BCx = NGTD - Started fluconazole # Non-ST Segment Elevation Myocardial Infarction # History of Cerebrovascular Accident (January 2017) # Severe Pulmonary Hypertension # Moderate Aortic Stenosis # Mild Mitral Stenosis # Hypertension # Dyslipidemia - Evaluation thus far: - EKG: without STEMI criteria, trend - Serial troponin: 557.6 -> 2655.0 -> 5143.0 -> 1508.3 - Transthoracic echocardiogram = "1. normal left ventricular ejection fraction greater than 60% 2. normal wall motion 3. mitral annular calcification with mild mitral stenosis 4. calcified aortic valve with at least moderate aortic stenosis 5. severe pulmonary hypertension with right ventricular systolic pressure greater than 60 mmHg" - Chest x-ray = "no acute cardiopulmonary process." - Management plan: - Consult Cardiology - recommendations appreciated - [facility] (03/25/2022) = "1. Severe left main and LAD disease. 2. Elevated LVEDP. Recommendations: CABG versus high-risk PCI of the left main and the LAD with Impella." - Per Dr. Tomlinson, this can be addressed as an outpatient, he has cleared for discharge - Continue aspirin, atorvastatin, metoprolol - WILDA-inhibitor/ARB not started due to renal function # Paroxysmal Atrial Fibrillation with Rapid Ventricular Response (resolved) # S/P Pacemaker Her [id number] = 7 (HTN=1, Age>75=2, DM=1, CVA=1, CAD=1, Sex=1), which warrants anticoagulation. - Cardiology consulted - recommendations appreciated - For rate control: - Continue metoprolol + amiodarone - For anticoagulation: - Continue apixaban # Acute Kidney Injury on Chronic Kidney Disease, now with End-Stage Renal Disease on Hemodialysis - Nephrology consulted - recommendations appreciated - Renal ultrasound = "mildly echogenic kidneys bilaterally. This likely indicates underlying medical renal disease." - Renally dose medications # Traumatic Ground-Level Fall complicated by Moderately Displaced Communited Right Humeral Fracture # Acute Right Foot Fifth Proximal Phalanx Fracture - Left foot x-ray = "no acute findings in the left foot" - Left knee x-ray = "no acute findings in the left knee" - Right knee x-ray = "no acute findings in the right knee" - Right foot x-ray = "suspect acute fracture in the fifth proximal phalanx on the frontal film" - Appreciate CM assistance with SNF placement - Continue PT/OT - PRN pain control - Outpatient Orthopedic evaluation # 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
[2022-03-30 14:12] LABS: Absolute Lymphocytes (CBC) 0.9 K/uL (0.7-4.9); Hematocrit 23.5 % (36.0-45.0); MCV 99.4 fL (80-100); MPV 7.4 fL (7.6-11.3); RBC Red Blood Cell Count 2.37 M/uL (3.86-4.86)
--- NOTE | 2022-03-30 15:45 | P.PN ---
Subjective Date of Service: 03/30/22 Chief Complaint: ACUTE KIDNEY INJURY Subjective: No new changes Physical Examination - Vital Signs Temperature: 96.8 F Blood Pressure: 137/56 Pulse: 65 Respirations: 16 Pulse Ox (%): 100 - Physical Exam General: In no apparent distress HEENT: Atraumatic, Normocephalic Neck: Supple Respiratory: Other (symmetric chest expansion) Cardiovascular: No rubs, No murmurs Gastrointestinal: Soft and benign, No guarding Musculoskeletal: No clubbing Integumentary: No warmth Neurological: Normal speech, Normal tone Lymphatics: No axilla or inguinal lymphadenopathy Urinary: Other (No bladder distention) External genitalia: Deferred Rectal: Deferred - Studies Medications List Reviewed: Yes Assessment And Plan - Plan 1. Acute kidney injury secondary to cardiorenal, poor perfusion, ATN, oliguric. TDC placed on 03/21. HD received yestertoday. Approved for outpt HD. Cont HD MWF. 2. Volume overload. Improved. HD as above. 3. Hyponatremia. Correction via HD. 4. DM2. Mngt per primary team. 5. Hypertension. Cont current med regimen. 6. Anemia of chronic kidney disease. JOHNNY qMWF. 7. Non-ST elevation myocardial infarction. S/p cardiac cath. Per Cardiology.
[2022-03-30] MEDS: ATORVASTATIN 80 MG TAB PO SCH (20:33)
[2022-03-30] MEDS: GABAPENTIN 100 MG CAP PO SCH (20:33)
[2022-03-30] MEDS: FAMOTIDINE 20 MG TAB PO SCH (20:34)
[2022-03-31 05:42] LABS: Absolute Lymphocytes (CBC) 1.4 K/uL (0.7-4.9); Hematocrit 23.5 % (36.0-45.0); Lymphocytes % 8.4 % (15.3-44.8); MCV 98.6 fL (80-100); MPV 7.2 fL (7.6-11.3); RBC Red Blood Cell Count 2.39 M/uL (3.86-4.86)
[2022-03-31 05:49] LABS: Potassium 4.9 mmol/L (3.5-5.1)
[2022-03-31] MEDS: LEVOTHYROXINE SOD 0.1 MG TAB PO SCH (06:09)
[2022-03-31] MEDS: Meropenem 500 MG in NA CHLORIDE 0.9% 100 ML IV SCH (06:09)
[2022-03-31] MEDS: NPH (HUMAN) 100 UNITS/ML INSULIN SQ SCH (08:00)
[2022-03-31] MEDS: DOCUSATE NA 100 MG CAP PO SCH (08:22)
[2022-03-31] MEDS: APIXABAN 2.5 MG TABLET PO SCH (08:22)
[2022-03-31] MEDS: AMIODARONE HCL 200 MG TAB PO SCH (08:22)
[2022-03-31] MEDS: CLOPIDOGREL 75 MG TABLET PO SCH (08:22)
[2022-03-31] MEDS: DULOXETINE 20 MG CAP PO SCH (08:22)
[2022-03-31] MEDS: POLYETHYL GLY 3350 17 GM/DOSE PO SCH (08:22)
[2022-03-31] MEDS: METOPROLOL XL 25 MG TAB PO SCH (08:23)
[2022-03-31] MEDS: INSULIN 70/30 100 UNITS/ML SQ SCH (08:23)
--- NOTE | 2022-03-31 09:08 | P.DS ---
Admission Date: 03/19/22 Discharge Date: 03/31/22 Disposition: TRANSFER TO LONG-TERM Discharge Condition: GOOD Reason for Admission: ACUTE KIDNEY INJURY Consultations: 1. Nephrology 2. Cardiology 3. General Surgery 4. Infectious Diseases Procedures: - 03/21/2022 - Placement of Right Internal Jugular Tunnelled HD Catheter - 03/25/2022 - 1. Selective coronary angiogram. 2. Left heart catheterization Hospital Course: DIAGNOSES: # Non-ST Segment Elevation Myocardial Infarction # Acute Kidney Injury on Chronic Kidney Disease, now with End-Stage Renal Di sease on Hemodialysis # Paroxysmal Atrial Fibrillation with Rapid Ventricular Response (resolved) # Melba Albicans Urinary Tract Infection # History of Cerebrovascular Accident (January 2017) # Severe Pulmonary Hypertension # Moderate Aortic Stenosis # Mild Mitral Stenosis # Hypertension # Dyslipidemia # S/P Pacemaker # Traumatic Ground-Level Fall complicated by Moderately Displaced Communited Right Humeral Fracture # Acute Right Foot Fifth Proximal Phalanx Fracture # Type II 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 Rebecca Hazel is a pleasant 81-year-old female with a past medical history significant for prior cerebrovascular accident (January 2017), severe pulmonary hypertension, hypertension, dyslipidemia, chronic kidney disease now with ESRD on hemodialysis, type 2 diabetes mellitus, and hypothyroidism who was admitted to the [facility] on 03/19/2022 for acute coronary syndrome and acute kidney failure. She was admitted to the Medicine service. Upon further evaluation, her EKG was without STEMI criteria and her serial troponin trend was 557.6 -> 2655.0 -> 5143.0 -> 1508.3. Her transthoracic echocardiogram revealed, "1. normal left ventricular ejection fraction greater than 60% 2. normal wall motion 3. mitral annular calcification with mild mitral stenosis 4. calcified aortic valve with at least moderate aortic stenosis 5. severe pulmonary hypertension with right ventricular systolic pressure greater than 60 mmHg." Cardiology was consulted and she was evaluated by Dr. Tomlinson. He recommended proceeding with a left heart catheterization, but was concerned that she would end up on hemodialysis due to her renal function and the anticipated contrast load. Nephrology was consulted and she was evaluated by Dr. Spicer. Through shared decision making, she decided to proceed with hemodialysis. General Surgery was consulted and Dr. Martins placed a hemodialysis catheter. During her hospital stay, she developed an episode of atrial fibrillation with rapid ventricular response, to which Dr. Tomlinson recommended amiodarone and apixaban. She reverted back to normal sinus rhythm. She received several sessions of hemodialysis, and on 03/25/2022, she had her left heart catheterization. This report revealed, "1. Severe left main and LAD disease. 2. Elevated LVEDP. Recommendations: CABG versus high-risk PCI of the left main and the LAD with Impella." Per Dr. Tomlinson, this can be addressed as an outpatient, and he has cleared for discharge. Following the procedure, she appeared relatively well clinically; however, she developed significant leukocytosis. An infectious evaluation was initiated, and Infectious Diseases was consulted. Her evaluation would soon return positive for Melba Albicans urinary tract infection. Her leukocytosis has been down-trending and Dr. Beal has cleared her for discharge with a 7-day course of levofloxacin and fluconazole. He has also agreed to see her at the SNF to follow-up. On 03/31/2022, she was seen on morning rounds and deemed medically stable for discharge to [facility]. She was given the opportunity to ask questions and reported no further questions. Furthermore, all questions were answered to the best of my ability. A copy of this discharge summary will be sent to the above providers to facilitate continuity of care. Today, I personally spent 35 minutes on her case, of which greater than 50% of the time was spent in patient education, counseling, and coordination of care as described above. - Physical Exam General: Alert, In no apparent distress, Oriented x3 HEENT: Atraumatic, Sclerae nonicteric Neck: JVD not distended Respiratory: Clear to auscultation bilaterally, Normal air movement Cardiovascular: No edema, Regular rate/rhythm, No murmurs Gastrointestinal: Soft, Non-distended, No tenderness Musculoskeletal: No clubbing Integumentary: No rashes Neurological: Normal speech, Normal affect Vital Signs/Physical Exam: Temp Pulse Resp BP Pulse Ox 96.9 F 61 16 113/46 L 100 03/31/22 07:49 03/31/22 08:23 03/31/22 07:49 03/31/22 08:23 03/31/22 07:49 Laboratory Data at Discharge: WBC 17.20 K/uL (4.3-10.9) H 03/31/22 05:27 Hgb 7.5 g/dL (12.0-15.0) L 03/31/22 05:27 Hct 23.5 % (36.0-45.0) L 03/31/22 05:27 Plt Count 307 K/uL (152-406) 03/31/22 05:27 PT 18.8 SECONDS (9.5-12.5) H 03/19/22 05:00 INR 1.71 03/19/22 05:00 APTT Cancelled 03/23/22 05:00 Sodium 133 mmol/L (136-145) L 03/31/22 05:27 Potassium 4.9 mmol/L (3.5-5.1) 03/31/22 05:27 BUN 34 mg/dL (7-18) H 03/31/22 05:27 Creatinine 3.41 mg/dL (0.55-1.02) H 03/31/22 05:27 Glucose 76 mg/dL (74-106) 03/31/22 05:27 Uric Acid 7.7 mg/dL (2.6-6.0) H 03/20/22 06:20 Phosphorus 3.1 mg/dL (2.5-4.9) 03/26/22 06:20 Magnesium 2.2 mg/dL (1.6-2.4) 03/24/22 05:12 Total Bilirubin 0.5 mg/dL (0.2-1.0) 03/19/22 05:00 AST 59 U/L (15-37) H 03/19/22 05:00 ALT 21 U/L (13-56) 03/19/22 05:00 Alkaline Phosphatase 89 U/L (45-117) 03/19/22 05:00 Lipase 252 U/L (73-393) 03/19/22 05:00 Home Medications: RX: Atorvastatin Calcium [Lipitor] 1 tab PO BEDTIME 05/08/17 RX: Duloxetine [Cymbalta *] 1 cap PO DAILY 05/08/17 RX: Famotidine [Pepcid*] 1 tab PO BEDTIME 05/08/17 RX: Gabapentin 200 mg PO BEDTIME 08/28/19 RX: Hum Insulin NPH/Reg Insulin Hm [Humulin 70-30 Vial] 25 unit SQ BID 08/28/19 RX: Acetaminophen with Codeine [Acetaminophen-Cod #3 Tablet] 1 tab PO PRN PRN 03/19/22 RX: Levothyroxine Sodium [Levothyroxine] 175 mcg PO DAILY 03/19/22 RX: Metoprolol Succinate [Toprol Xl*] 25 mg PO DAILY 03/19/22 RX: Amiodarone HCl [Cordarone*] 400 mg PO BID tab 03/31/22 RX: Apixaban [Eliquis *] 2.5 mg PO BID 03/31/22 RX: Clopidogrel Bisulfate [Plavix*] 75 mg PO DAILY 03/31/22 RX: Docusate [Colace Cap*] 100 mg PO BID cap 03/31/22 RX: Epoetin [Retacrit] 10,000 unit IV EVERY HD vial 03/31/22 RX: Fluconazole [Diflucan] 100 mg PO DAILY 7 Days #7 tab 03/31/22 RX: Polyethyl Gly 3350 [Glycolax*] 17 gm PO DAILY udbot 03/31/22 RX: levoFLOXacin [Levaquin*] 500 mg PO Q48H 6 Days #3 tab 03/31/22 New Medications: RX: Fluconazole [Diflucan] 100 mg PO DAILY 7 Days #7 tab Physician Discharge Instructions: 1. Please call and schedule a follow-up appointment with your PCP in 3-5 days - There was a small amount of blood in your urine. At times, this can be an early sign of bladder/kidney cancer. Please follow this up with your PCP for more evaluation 2. Please call and schedule a follow-up appointment with Cardiology (Dr. Tomlinson) in 5-7 days - He will need to schedule for further heart testing and you may require a stent in your heart 3. Dr. Beal (Infectious Diseases) will check on you at the nursing facility Diet: AHA Activity: Fall precautions Followup: Baltazar Beal MD [ACTIVE - CAN ADMIT] - (call to schedule appointment.) Lui Tomlinson MD [ACTIVE - CAN ADMIT] - (Call to schedule appointment.) Eleazar Spicer MD [OUTSIDE PHYSICIAN] - Time spent managing pt's care (in minutes): 35
[2022-03-31] MEDS: FLUCONAZOLE 200mg IVPB 200 MG/100 ML BAG IV SCH (09:57)
[2022-03-31] MEDS ORDERED: levoFLOXacin 750 MG TAB PO ONE (10:00)
[2022-03-31 10:44] VITALS: O2SAT 100
[2022-03-31 12:09] VITALS: BP 128/38; TEMP 97.1
[2022-04-01] MEDS ORDERED: FLUCONAZOLE 100 MG TAB PO SCH (09:00)
--- NOTE | 2022-04-01 12:38 | EKG ---
Test Date: 2022-03-31 Test Time: 08:51:06 Air Hammer Operator: SHANTAL MEASUREMENT RESULTS: Intervals: Rate: 57 RI: 194 QRSD: 134 QT: 486 QTc: 473 Girard: P: RI: 194 QRS: -15 T: 39 INTERPRETIVE STATEMENTS: Electronic ventricular pacemaker Compared to ECG 03/31/2022 08:50:32 No significant changes Electronically Signed On 04-01-22 12:35:53 [employer] by Lui Tomlinson
[2022-04-02] MEDS ORDERED: levoFLOXacin 500 MG TAB PO SCH (10:00)
== END 2022-03-31 13:40 | DRG 673 ==
LOC: ER 02:40 → ERHOLD 07:40 → 4TH 08:59 → 2ND 03-30 17:58
PROVIDERS: ADMIT Hospitalist; ATTEND Internal Medicine
PROC: 02HV33Z Insertion of Infusion Device into Superior Vena Cava, Percutaneous Approach (ICD-10-PCS; 2022-03-21)
PROC: 5A1D70Z Performance of Urinary Filtration, Intermittent, Less than 6 Hours Per Day (ICD-10-PCS; 2022-03-21)
PROC: 0JH63XZ Insertion of Tunneled Vascular Access Device into Chest Subcutaneous Tissue and Fascia, Percutaneous Approach (ICD-10-PCS; principal; 2022-03-21 12:15)
PROC: 4A023N7 Measurement of Cardiac Sampling and Pressure, Left Heart, Percutaneous Approach (ICD-10-PCS; 2022-03-25)
PROC: B2111ZZ Fluoroscopy of Multiple Coronary Arteries using Low Osmolar Contrast (ICD-10-PCS; 2022-03-25)
DX: N17.0 Acute kidney failure with tubular necrosis (principal); I21.4 Non-ST elevation (NSTEMI) myocardial infarction; S42.421A Displaced comminuted supracondylar fracture without intercondylar fracture of right humerus, initial encounter for closed fracture; E87.1 Hypo-osmolality and hyponatremia; I13.2 Hypertensive heart and chronic kidney disease with heart failure and with stage 5 chronic kidney disease, or end stage renal disease; I69.351 Hemiplegia and hemiparesis following cerebral infarction affecting right dominant side; M86.671 Other chronic osteomyelitis, right ankle and foot; B37.49 Other urogenital candidiasis; N18.6 End stage renal disease; I50.9 Heart failure, unspecified; E11.22 Type 2 diabetes mellitus with diabetic chronic kidney disease; E11.65 Type 2 diabetes mellitus with hyperglycemia; E11.40 Type 2 diabetes mellitus with diabetic neuropathy, unspecified; E11.69 Type 2 diabetes mellitus with other specified complication; E11.51 Type 2 diabetes mellitus with diabetic peripheral angiopathy without gangrene; E11.621 Type 2 diabetes mellitus with foot ulcer; L97.519 Non-pressure chronic ulcer of other part of right foot with unspecified severity; E78.5 Hyperlipidemia, unspecified; E03.9 Hypothyroidism, unspecified; E66.01 Morbid (severe) obesity due to excess calories; D63.1 Anemia in chronic kidney disease; D50.9 Iron deficiency anemia, unspecified; N25.81 Secondary hyperparathyroidism of renal origin; I48.0 Paroxysmal atrial fibrillation; I35.0 Nonrheumatic aortic (valve) stenosis; I05.0 Rheumatic mitral stenosis; I27.20 Pulmonary hypertension, unspecified; I25.10 Atherosclerotic heart disease of native coronary artery without angina pectoris; S92.911A Unspecified fracture of right toe(s), initial encounter for closed fracture; S90.31XA Contusion of right foot, initial encounter; S80.02XA Contusion of left knee, initial encounter; R31.29 Other microscopic hematuria; S80.01XA Contusion of right knee, initial encounter; Z99.2 Dependence on renal dialysis; Z79.4 Long term (current) use of insulin; Z95.0 Presence of cardiac pacemaker; Z79.01 Long term (current) use of anticoagulants; Z91.81 History of falling; Z79.02 Long term (current) use of antithrombotics/antiplatelets; Z68.37 Body mass index [BMI] 37.0-37.9, adult; Z79.899 Other long term (current) drug therapy; Z90.710 Acquired absence of both cervix and uterus; Z79.890 Hormone replacement therapy; Z20.822 Contact with and (suspected) exposure to COVID-19; W18.30XA Fall on same level, unspecified, initial encounter; Y92.9 Unspecified place or not applicable
CPT/HCPCS: 36415; 71045; 76000; 76770; 76937; 80048; 80069; 80076; 81001; 82306; 82607; 82652; 82728; 82947; 83540; 83605; 83690; 83735; 83880; 83970; 84145; 84165; 84439; 84443; 84466; 84484; 84550; 85025; 85044; 85610; 85730; 86704; 86706; 87040; 87086; 87088; 87522; 87811; 90935; 93005; 93306; 93458; 96360; 96361; 97110; 97161; 97165; 97530; 99285; A4216; C1752; C1893; J0282; J0360; J0461; J1450; J1644; J1650; J1815; J2001; J2250; J2270; J2405; J2704; J2916; J3010; J7030; J7040; J7060; Q9966; U0003

== ENCOUNTER 2022-06-22 11:12 | Inpatient (IN) | payer OTHER ==
--- OUTSIDE RECORDS SUMMARY | 2022-06-22 11:19 | XMS REPORT | Continuity of Care Document ---
:1940 Author Organization [facility] t Address [address] [place] [address] Care Team Providers Name Role Phone SARIAH HART Primary Care Physician Unavailable Jacqui Pate Attending Clinician Unavailable KACIE FISCHER Attending Clinician Unavailable Vitor Attending Clinician Unavailable EM ALEX Attending Clinician Unavailable KACIE FISCHER Admitting Clinician Unavailable Vitor Admitting Clinician Unavailable EM ALEX Admitting Clinician Unavailable Payers Payer Name Policy Type Policy Number Effective Date Expiration Date S santiago [facility]/MEDICARE [id number] 2016 COMPLETE 00:00:00 [facility] MEDICARE [id number] COMPLETE (MEDICARE REPLACEMENT HMO) [facility] 53 [id number] 2021 Common ADVANTAGE WELLMED 00:00:00 [facility] AARP MEDICARE 53 [id number] 2020 Common ADVANTAGE WELLMED 00:00:00 [facility] Problems Condition Condition Condition Status Onset Resolution Last Treating Co mments Source Name Details Category Date Date Treatment Clinician Date 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 05-29 Medi dragan major Major 00:00: depression Depression 00 Hypertensi Hypertensi Problem Active [facility] ve heart ve Heart 4-19 Medica l and renal and Renal 00:00: disease Disease 00 with renal with Renal failure Failure Hemiparesi Hemiparesi Problem Active [facility] s as late s as Late 19 Medi dragan effect of Effect of 00:00: cerebrovas Cerebrovas 00 cular cular accident Accident Constipati Constipati Problem Active [facility] on on 05-29 Medical 00:00: 00 Irritant Irritant Problem Active [facility] a contact Contact 05-29 Medical dermatitis Dermatitis 00:00: due to Due to 00 contact Contact with urine with Urine and/or And/or feces Feces Peripheral Peripheral Problem Active [facility] neuropathy Neuropathy 05-29 Me dical due to Due to 00:00: type 2 Type 2 00 diabetes Diabetes mellitus Mellitus Pressure Pressure Problem Active [facility] injury of Injury of 05-29 Medi dragan sacral Sacral 00:00: region of Region of 00 back stage Back Stage III III Physical Physical Problem Active [facility] deconditio Deconditio 19 Me dical ellen ellen 00:00: 00 Retinopath Retinopath Problem Active [facility] y due to y Due to 05-29 Medica l type 2 Type 2 00:00: diabetes Diabetes 00 mellitus Mellitus Acquired Acquired Problem Active [facility] hypothyroi Hypothyroi 19 Me dical dism dism 00:00: 00 Morbid Morbid Problem Active [facility] obesity Obesity 05-29 Medical 00:00: 00 Secondary Secondary Problem Active [facility] via immune Immune 18 Medical deficiency Deficiency 00:00: disorder Disorder 00 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 in Problem Active [facility] via chronic Chronic 18 Medical kidney Kidney 00:00: disease Disease 00 Hypercoagu Hypercoagu Problem Active [facility] lability lability 18 Medica l state State 00:00: 00 Major Major Problem Active [facility] depressive Depressive -18 Me dical disorder Disorder 00:00: 00 Acute pain Acute Pain Problem Active [facility] -18 Medical 00:00: 00 Atrial Atrial Problem Active [facility] fibrillati Fibrillati -18 Me dical on on 00:00: 00 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 Medi dragan deficit as Deficit as 00:00: late Late 00 effect of Effect of cerebrovas Cerebrovas cular cular accident Accident Hemiparesi Hemiparesi Problem Active [facility] s as late s as Late 18 Medi dragan effect of Effect of 00:00: cerebrovas Cerebrovas 00 cular cular accident Accident Dysphagia Dysphagia Problem Active [facility] via as a late as a Late 418 Medi dragan effect of Effect of 00:00: cerebrovas Cerebrovas 00 cular cular accident Accident Gastroesop Gastroesop Problem Active [facility] hageal hageal 18 Medical reflux Reflux 00:00: disease Disease 00 Unable to Unable to Problem Active [facility] via walk Walk 18 Medical 00:00: 00 Permanent Permanent Problem Active [facility] via cardiac Cardiac 18 Medical pacemaker Pacemaker 00:00: 00 Body mass Body Mass Problem Active [facility] via index 40+ Index 40+ 418 Medi dragan - severely - Severely 00:00: obese Obese 00 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 Angiopathy 18 Me dical due to Due to 00:00: diabetes Diabetes 00 mellitus Mellitus Type 2 Type 2 Problem Active [facility] diabetes Diabetes 18 Medica l mellitus Mellitus 00:00: 00 Hyperlipid Hyperlipid Problem Active [facility] emia emia 18 Medical 00:00: 00 Symptomati Symptomati Disease Active [facility] bradycardi bradycardi 00:00: Me dical a a 00 Center Acute deep Acute deep Disease Active M ethodi vein vein [address] thrombosis thrombosis 00:00: Ho spita (DVT) of (DVT) of 00 l axillary axillary vein of vein of left upper left upper extremity extremity Osteomyeli Osteomyeli Disease Active M ethodi tis tis 6-14 st 00:00: Hospita 00 l Diabetes Diabetes Disease Recurre [facility] mellitus mellitus nce 1[facility] type 2, type 2, 00:00: Medical insulin insulin 00 Center dependent dependent 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[facility] al al 1 [facility] arterioscl arterioscl 00:00: Me dical erosis erosis 00 [place] Accelerate Accelerate Disease Active [facility] d d 02-12 [facility] hypertensi hypertensi 00:00: Me dical on on 00 [place] S/P S/P Disease Active [facility] radiofrequ radiofrequ 02-12 kes ency ency 00:00: Medical ablation ablation 00 Center operation operation 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[address] yue yue nce 04-07 [facility] re-entry re-entry 00:00: Medica l tachycardi tachycardi 00 nter a) a) Stroke Stroke Disease Recurre 2016-[address] (cerebrum) (cerebrum) nce 04-03 Bev kes 00:00: Medical 00 Center Essential Essential Problem Com mon hypertensi hypertensi Sp chino on on - [facility] Dyslipidem Dyslipidem Problem C ommon ia ia [facility] - [facility] Postoperat Hypothyroi Problem C ommon zena dism Spirit Hypothyroi associated - CHI dism with surgical [facility] procedure [facility] Hemiplegia Hemiplegia Problem C ommon of right affecting Spiri t dominant right - CHI side dominant side [facility] Long-term correction Problem Com mon current (current) Spirit use of use of - [facility]I insulin insulin [facility] Diabetic Diabetes Problem Commo n neuropathy mellitus Spir it with - CHI diabetic neuropathy [facility] [id number] Chronic Problem Commo n kidney Spirit disease, - [facility]I stage 4 (severe) [facility] [id number] Melba Problem Common tropicalis Spirit infection - [facility] [id number] 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Spirit [place] - CH[facility] arteries [facility] extremitie Medica l s with Center intermitte nt claudicati on, left leg [id number] 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, - [facility] recurrent, mild [facility] [id number] Bilateral Problem Com mon lower [facility] extremity - [facility] edema [facility] [id number] Type 2 Problem Commo n 07 diabetes Spirit mellitus - [facility] with diabetic [facility] chronic Medical kidney Center disease [id number] Chronic Problem 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 - [facility]I failure, unspecifie [facility] d heart Medical failure Center type History of History of Problem C ommon cerebrovas CVA Spirit cular (cerebrova - [facility] accident scular St without accident) [facility] Allergies, Adverse Reactions, Alerts Allergy Allergy Status Severity Reaction(s) Onset Inactive Treating Comm ents Source Name Type Date Date Clinician NO KNOWN Allergy Active [facility] Family History Family Member Diagnosis Comments Start Date Stop Date Source Natural father Diabetes [facility] Natural mother Hypertension [facility] Social History Social Habit Start Date Stop Date Quantity Comments Source History of Tobacco Common [facility] - Use [facility] Sexual orientation [facility] History of Social 2017-12-24 2017-12-[address] function 00:00:00 00:00:00 Hospital Alcohol intake 2017-09-18 2017-09-18 Current [facility] 00:00:00 00:00:00 non-drinker of Hospital alcohol (finding) Tobacco use and 2017-07-24 2017-07-24 Smokeless [facility] exposure 00:00:00 00:00:00 tobacco non-user Hospital Sex Assigned At [birth year] [facility] 00:00[facility] 00:00:00 Hospital Smoking Status Start Date Stop Date Source Never Smoker [facility] Medications Ordered Filled Start Stop Current Ordering [...] MCG 175 MCG 00:00: 175 MCG 00 atorvastati Yes 80mg QD Take [address] n (LIPITOR) 6-29 by mouth Luke s 80 MG 23:38: daily. Medical tablet 15 [place] famotidine Yes 20mg QD Take [address] (PEPCID) 20 6-29 by mouth Luke s MG tablet 23:38: daily. Medica l 15 [place] GABAPENTIN Yes 200mg QD Take [address] ORAL 6-29 mg by [facility] 23:38: mouth Medical 15 daily. [place] aspirin 81 Yes 81mg QD Take [address] MG EC 6-29 by mouth [facility] tablet 23:38: daily. Medical 15 [place] metoprolol Yes 25mg QD Take [address] (TOPROL-XL) 6-29 by mouth Luke s 25 MG 24 hr 23:38: daily. Medi dragan tablet 15 [place] insulin Yes Inject [facility] 70/30, 6-29 [facility]o [facility] insulin 23:38: usly 2 Medical NPH-insulin 15 (two) Center regular, times (HumuLIN daily 70/30) 100 before unit/mL meals. (70-30) injection cloNIDine Yes .1mg Q.[id number] Take 0.[address] HCL 6-29 [id number] mg by [facility] (CATAPRES) 23:38: 3D mouth [...] 20 MG 23:38: daily. Medical capsule 15 [place] furosemide Yes 80mg QD Take [address] (LASIX) 80 6-29 by mouth [facility] MG tablet 23:38: daily. Medica l 15 [place] metoprolol Yes 12.5mg Take 12.[address] tartrate 6-29 mg by [facility] (LOPRESSOR 23:38: mouth. Medic al ORAL) 15 [place] atorvastati Yes 80mg QD Take [address] n (LIPITOR) 6-29 by mouth Luke s 80 MG 23:38: daily. Medical tablet 15 [place] famotidine Yes 20mg QD Take [address] (PEPCID) 20 6-29 by mouth Luke s MG tablet 23:38: daily. Medica l 15 [place] GABAPENTIN Yes 200mg QD Take [address] ORAL 6-29 mg by [facility] 23:38: mouth Medical 15 daily. [place] aspirin 81 Yes 81mg QD Take [address] MG EC 6-29 by mouth [facility] tablet 23:38: daily. Medical 15 [place] metoprolol Yes 25mg QD Take [address] (TOPROL-XL) 6-29 by mouth Luke s 25 MG 24 hr 23:38: daily. Medi dragan tablet 15 [place] insulin Yes Inject [facility] 70/30, 6-29 [facility]o [facility] insulin 23:38: usly 2 Medical NPH-insulin 15 (two) Center regular, times (HumuLIN daily 70/30) 100 before unit/mL meals. (70-30) injection cloNIDine Yes .1mg Q.[id number] Take 0.[address] HCL 6-29 [id number] mg by [facility] (CATAPRES) 23:38: 3D mouth [...] 20 MG 23:38: daily. Medical capsule 15 [place] furosemide Yes 80mg QD Take [address] (LASIX) 80 6-29 by mouth [facility] MG tablet 23:38: daily. Medica l 15 [place] metoprolol Yes 12.5mg Take 12.[address] tartrate 6-29 mg by [facility] (LOPRESSOR 23:38: mouth. Medic al ORAL) 15 Center atorvastati Yes 80mg QD Take [address] n (LIPITOR) 6-29 by mouth Luke s 80 MG 23:38: daily. Medical tablet 15 [place] famotidine Yes 20mg QD Take [address] (PEPCID) 20 6-29 by mouth Luke s MG tablet 23:38: daily. Medica l 15 [place] GABAPENTIN Yes 200mg QD Take [address] ORAL 6-29 mg by [facility] 23:38: mouth Medical 15 daily. [place] aspirin 81 Yes 81mg QD Take [address] MG EC 6-29 by mouth [facility] tablet 23:38: daily. Medical 15 [place] metoprolol Yes 25mg QD Take [address] (TOPROL-XL) 6-29 by mouth Luke s 25 MG 24 hr 23:38: daily. Medi dragan tablet 15 [place] insulin Yes Inject [facility] 70/30, 6-29 [facility]o [facility] insulin 23:38: usly 2 Medical NPH-insulin 15 (two) Center regular, times (HumuLIN daily 70/30) 100 before unit/mL meals. (70-30) injection cloNIDine Yes .1mg Q.[id number] Take 0.[address] HCL 6-29 [id number] mg by [facility] (CATAPRES) 23:38: 3D mouth [...] morning on tablet an empty stomach. DULoxetine 2021-0 Yes 20mg QD Take [address] (CYMBALTA) 6-29 by mouth [facility] 20 MG 23:38: daily. Medical capsule 15 [place] furosemide Yes 80mg QD Take [address] (LASIX) 80 6-29 by mouth [facility] MG tablet 23:38: daily. Medica l 15 [place] metoprolol Yes 12.5mg Take 12.[address] tartrate 6-29 mg by [facility] (LOPRESSOR 23:38: mouth. Medic al ORAL) 15 [place] atorvastati Yes 80mg QD Take [address] n (LIPITOR) 6-29 by mouth Luke s 80 MG 23:38: daily. Medical tablet 15 [place] famotidine Yes 20mg QD Take [address] (PEPCID) 20 6-29 by mouth Luke s MG tablet 23:38: daily. Medica l 15 [place] GABAPENTIN Yes 200mg QD Take [address] ORAL 6-29 mg by [facility] 23:38: mouth Medical 15 daily. [place] aspirin 81 Yes 81mg QD Take [address] MG EC 6-29 by mouth [facility] tablet 23:38: daily. Medical [address] [place] [address] metoprolol Yes 25mg QD Take [address] (TOPROL-XL) 6-29 by mouth Luke s 25 MG 24 hr 23:38: daily. Medi dragan tablet 15 [place] insulin Yes Inject [facility] 70/30, 6-29 [facility]o [facility] insulin 23:38: usly 2 Medical NPH-insulin 15 (two) [place] regular, times (HumuLIN daily 70/30) 100 before unit/mL meals. (70-30) injection cloNIDine Yes .1mg Q.[id number] Take 0.[address] HCL 6-29 [id number] mg by [facility] (CATAPRES) 23:38: 3D mouth [...] (LOPRESSOR 23:38: mouth. Medic al ORAL) 15 [place] atorvastati Yes 80mg QD Take [address] n (LIPITOR) 6-29 by mouth Luke s 80 MG 23:38: daily. Medical tablet 15 [place] famotidine Yes 20mg QD Take [address] (PEPCID) 20 6-29 by mouth Luke s MG tablet 23:38: daily. Medica l 15 [place] GABAPENTIN Yes 200mg QD Take [address] ORAL 6-29 mg by [facility] 23:38: mouth Medical 15 daily. [place] aspirin 81 Yes 81mg QD Take [address] MG EC 6-29 by mouth [facility] tablet 23:38: daily. Medical [address] [place] [address] metoprolol Yes 25mg QD Take [address] (TOPROL-XL) 6-29 by mouth Luke s 25 MG 24 hr 23:38: daily. Medi dragan tablet 15 [place] insulin Yes Inject [facility] 70/30, 6-29 [facility]o [facility] insulin 23:38: usly 2 Medical NPH-insulin 15 (two) Center regular, times (HumuLIN daily 70/30) 100 before unit/mL meals. (70-30) injection cloNIDine Yes .1mg Q.[id number] Take 0.[address] HCL 6-29 [id number] mg by [facility] (CATAPRES) 23:38: 3D mouth [...] 20 MG 23:38: daily. Medical capsule 15 [place] furosemide Yes 80mg QD Take [address] (LASIX) 80 6-29 by mouth [facility] MG tablet 23:38: daily. Medica l 15 [place] metoprolol Yes 12.5mg Take 12.[address] tartrate 6-29 mg by [facility] (LOPRESSOR 23:38: mouth. Medic al ORAL) 15 [place] atorvastati Yes 80mg QD Take [address] n (LIPITOR) 6-29 by mouth Luke s 80 MG 23:38: daily. Medical tablet 15 [place] famotidine Yes 20mg QD Take [address] (PEPCID) 20 6-29 by mouth Luke s MG tablet 23:38: daily. Medica l 15 [place] GABAPENTIN Yes 200mg QD Take [address] ORAL 6-29 mg by [facility] 23:38: mouth Medical 15 daily. [place] aspirin 81 Yes 81mg QD Take [address] MG EC 6-29 by mouth [facility] tablet 23:38: daily. Medical 15 [place] metoprolol Yes 25mg QD Take [address] (TOPROL-XL) 6-29 by mouth Luke s 25 MG 24 hr 23:38: daily. Medi dragan tablet 15 [place] insulin Yes Inject [facility] 70/30, 6-29 subcutaneo [facility] insulin 23:38: usly 2 Medical NPH-insulin 15 (two) Center regular, times (HumuLIN daily 70/30) 100 before unit/mL meals. (70-30) injection cloNIDine Yes .1mg Q.[id number] Take 0.[address] HCL 6-29 [id number] mg by [facility] (CATAPRES) 23:38: 3D mouth [...] 20 MG 23:38: daily. Medical capsule 15 [place] furosemide Yes 80mg QD Take [address] (LASIX) 80 6-29 by mouth [facility] MG tablet 23:38: daily. Medica l 15 [place] metoprolol Yes 12.5mg Take 12.[address] tartrate 6-29 mg by [facility] (LOPRESSOR 23:38: mouth. Medic al ORAL) 15 [place] atorvastati Yes 80mg QD Take [address] n (LIPITOR) 6-29 by mouth Luke s 80 MG 23:38: daily. Medical tablet 15 [place] famotidine Yes 20mg QD Take [address] (PEPCID) 20 6-29 by mouth Luke s MG tablet 23:38: daily. Medica l 15 [place] GABAPENTIN Yes 200mg QD Take [address] ORAL 6-29 mg by [facility] 23:38: mouth Medical 15 daily. [place] aspirin 81 Yes 81mg QD Take [address] MG EC 6-29 by mouth [facility] tablet 23:38: daily. Medical 15 [place] metoprolol Yes 25mg QD Take [address] (TOPROL-XL) 6-29 by mouth Luke s 25 MG 24 hr 23:38: daily. Medi dragan tablet 15 [place] insulin Yes Inject [facility] 70/30, 6-29 subcutaneo [facility] insulin 23:38: usly 2 Medical NPH-insulin 15 (two) Center regular, times (HumuLIN daily 70/30) 100 before unit/mL meals. (70-30) injection cloNIDine Yes .1mg Q.[id number] Take 0.[address] HCL 6-29 [id number] mg by [facility] (CATAPRES) 23:38: 3D mouth [...] 20 MG 23:38: daily. Medical capsule 15 [place] furosemide Yes 80mg QD Take [address] (LASIX) 80 6-29 by mouth [facility] MG tablet 23:38: daily. Medica l 15 [place] metoprolol Yes 12.5mg Take 12.[address] tartrate 6-29 mg by [facility] (LOPRESSOR 23:38: mouth. Medic al ORAL) 15 [place] aspirin 81 Yes 81mg QD Take [address] MG EC 6-29 by mouth [facility] tablet 23:38: daily. Medical 15 [place] metoprolol Yes 25mg QD Take [address] (TOPROL-XL) 6-29 by mouth Luke s 25 MG 24 hr 23:38: daily. Medi dragan tablet 15 Center insulin Yes Inject [facility] 70/30, 6-29 [facility]cutaneo [facility] insulin 23:38: usly 2 Medical NPH-insulin 15 (two) Center regular, times (HumuLIN daily 70/30) 100 before unit/mL meals. (70-30) injection cloNIDine Yes .1mg Q.[id number] Take 0.[address] HCL 6-29 [id number] mg by [facility] (CATAPRES) 23:38: 3D mouth [...] MG tablet 23:38: daily. Medica l 15 [place] GABAPENTIN Yes 200mg QD Take [address] ORAL 6-29 mg by [facility] 23:38: mouth Medical 15 daily. Center BD Insulin BD Insulin No TID BD Insulin Syr Syr 15 Syr Ultrafine Ultrafine 00:00: Ultrafine II 31G X II 31G X 00 II 31G X 5/16" 0.5 5/16" 0.5 5/16" 0.5 ML ML ML BD Insulin BD Insulin No TID BD Insulin Syr Syr 9-15 Syr Ultrafine Ultrafine 00:00: Ultrafine II 31G X II 31G X 00 II 31G X 5/16" 0.5 5/16" 0.5 5/16" 0.5 ML ML ML BD Insulin BD Insulin No TID BD Insulin Syr Syr -15 [...] SKIN TID l (70-30) BEFORE injection MEALS HUMULIN Yes INJECT 15 Metho di 70/30 U-100 6-[address] INSULIN 100 00:00: UNDER THE H ospita unit/mL 00 SKIN TID l (70-30) BEFORE injection MEALS HUMULIN Yes INJECT 15 Metho di 70/30 U-100 6-[address] INSULIN 100 00:00: UNDER THE H ospita unit/mL 00 SKIN TID l (70-30) BEFORE injection MEALS HUMULIN 2017-0 Yes INJECT 15 Metho di 70/30 U-100 6-[address] INSULIN 100 00:00: UNDER THE H ospita unit/mL 00 SKIN TID l (70-30) BEFORE injection MEALS HUMULIN 2017-0 Yes INJECT 15 Metho di 70/30 U-100 6-[address] INSULIN 100 00:00: UNDER THE H ospita unit/mL 00 SKIN TID l (70-30) BEFORE injection MEALS atorvastati 2017-0 Yes TK 1 T PO M ethodi n (LIPITOR) 5-[address] 80 MG 00:00: Hospita tablet 00 l DULoxetine 2017-0 Yes TK 1 C PO Me thodi (CYMBALTA) 5-[address] 20 MG 00:00: Hospita capsule 00 l famotidine 2017-0 Yes TK 1 T PO Me thodi (PEPCID) 20 5-[address] MG tablet 00:00: Hospita 00 l atorvastati 2017-0 Yes TK 1 T PO M ethodi n (LIPITOR) 5-[address] 80 MG 00:00: Hospita tablet 00 l DULoxetine 2017-0 Yes TK 1 C PO Me thodi (CYMBALTA) 5-[address] 20 MG 00:00: Hospita capsule 00 l famotidine 2017-0 Yes TK 1 T PO Me thodi (PEPCID) 20 5-[address] MG tablet 00:00: Hospita 00 l atorvastati 2017-0 Yes TK 1 T PO M ethodi n (LIPITOR) 5-[address] 80 MG 00:00: Hospita tablet 00 l DULoxetine 2017-0 Yes TK 1 C PO Me thodi (CYMBALTA) 5-[address] 20 MG 00:00: Hospita capsule 00 l famotidine 2017-0 Yes TK 1 T PO Me thodi (PEPCID) 20 5-[address] MG tablet 00:00: Hospita 00 l atorvastati 2017-0 Yes TK 1 T PO M ethodi n (LIPITOR) 5-[address] 80 MG 00:00: Hospita tablet 00 l DULoxetine 2017-0 Yes TK 1 C PO Me thodi (CYMBALTA) 5-[address] 20 MG 00:00: Hospita capsule 00 l famotidine 2017-0 Yes TK 1 T PO Me thodi (PEPCID) 20 5-[address] MG tablet 00:00: Hospita 00 l atorvastati 2018-0 Yes TK 1 T PO M ethodi n (LIPITOR) 5-[address] 80 MG 00:00: Hospita tablet 00 l DULoxetine 2017-0 Yes TK 1 C PO Me thodi (CYMBALTA) 5-[address] 20 MG 00:00: Hospita capsule 00 l famotidine 2017-0 Yes TK 1 T PO Me thodi (PEPCID) 20 5-[address] MG tablet 00:00: Hospita 00 l levothyroxi 2017-0 Yes TK 1 T PO M ethodi ne 3-[address] (SYNTHROID, 00:00: Hospit a LEVOXYL) 00 l 150 mcg tablet levothyroxi 2017-0 Yes TK 1 T PO M ethodi ne 3-[address] (SYNTHROID, 00:00: Hospit a LEVOXYL) 00 l 150 mcg tablet levothyroxi 2017-0 Yes TK 1 T PO M ethodi ne 3-[address] (SYNTHROID, 00:00: Hospit a LEVOXYL) 00 l 150 mcg tablet levothyroxi 2017-0 Yes TK 1 T PO M ethodi ne 3-[address] (SYNTHROID, 00:00: Hospit a LEVOXYL) 00 l 150 mcg tablet levothyroxi 2017-0 Yes TK 1 T PO M ethodi ne 3-[address] (SYNTHROID, 00:00: Hospit a LEVOXYL) 00 l 150 mcg tablet insulin 0 Yes 25u QAM [facility] detemir 1-02 and 15u [facility] (LEVEMIR) 00:00: QHS. Medical 100 unit/mL 00 Center (3 mL) InPn injection insulin 2017-0 Yes 25u QAM [facility] detemir 1-02 and 15u [facility] (LEVEMIR) 00:00: QHS. Medical 100 unit/mL 00 Center (3 mL) InPn injection insulin 0 Yes 25u QAM [facility] detemir 1-02 and 15u [facility] (LEVEMIR) 00:00: QHS. Medical 100 unit/mL 00 Center (3 mL) InPn injection insulin 2018-0 Yes 25u QAM [facility] detemir 1-02 and 15u [facility] (LEVEMIR) 00:00: QHS. Medical 100 unit/mL 00 Center (3 mL) InPn injection insulin 2018-0 Yes 25u QAM [facility] detemir 1-02 and 15u [facility] (LEVEMIR) 00:00: QHS. Medical 100 unit/mL 00 Center (3 mL) InPn injection insulin 2018-0 Yes 25u QAM [facility] detemir 1-02 and 15u [facility] (LEVEMIR) 00:00: QHS. Medical 100 unit/mL 00 Center (3 mL) InPn injection insulin 2018-0 Yes 25u QAM [facility] detemir 1-02 and 15u [facility] (LEVEMIR) 00:00: QHS. Medical 100 unit/mL 00 Center (3 mL) InPn injection insulin 2018-0 Yes 25u QAM [facility] detemir 1-02 and 15u [facility] (LEVEMIR) 00:00: QHS. Medical 100 unit/mL 00 Center (3 mL) InPn injection metoprolol metoprolol No metoprolol [facility] succinate succinate succinate Medical ER 25 mg ER 25 mg ER 25 mg tablet,exte tablet,exte tablet,ext nded nded ended release 24 release 24 release 24 hr TAKE 1 hr TAKE 1 hr TAKE 1 TABLET BY TABLET BY TABLET BY MOUTH ONCE MOUTH ONCE MOUTH ONCE DAILY DAILY DAILY PeriGuard PeriGuard No PeriGuard [facility] topical topical topical Medica l ointment ointment ointment APPLY APPLY APPLY OINTMENT TO OINTMENT TO OINTMENT PERIANAL PERIANAL TO AREA 2-3 AREA 2-3 PERIANAL TIMES DAILY TIMES DAILY AREA 2-3 TIMES DAILY Vitamin C Vitamin C No 1 BID Vitamin C [facility] 500 mg 500 mg 500 mg Medical tablet Take tablet Take tablet 1 tablet 1 tablet Take 1 twice a day twice a day tablet by oral by oral twice a route. route. day by oral route. zinc zinc No 1capsul Q1D zinc [facility] sulfate 50 sulfate 50 e(s) sulfate 50 Medical mg zinc mg zinc mg zinc (220 mg) (220 mg) (220 mg) capsule capsule capsule Take 1 Take 1 Take 1 capsule capsule capsule every day every day every day by oral by oral by oral route. route. route. Vitamin D3 Vitamin D3 No 1{table QD [...] 100 MG 100 MG le} 100 MG acetaminoph acetaminoph No 1 Q8H acetaminop [facility] en 300 en 300 hen 300 Medical mg-codeine mg-codeine mg-codeine 30 mg 30 mg 30 mg tablet Take tablet Take tablet 1 tablet 1 tablet Take 1 every 8 every 8 tablet hours by hours by every 8 oral route oral route hours by as needed as needed oral route for 10 for 10 as needed days. days. for 10 days. amiodarone amiodarone No 2 BID amiodarone [facility] 200 mg 200 mg 200 mg Medical tablet Take tablet Take tablet 2 tablets 2 tablets Take 2 twice a day twice a day tablets by oral by oral twice a route. route. day by oral route. atorvastati atorvastati No atorvastat [facility] n 80 mg n 80 mg in 80 mg Medic al tablet TAKE tablet TAKE tablet 1 TABLET BY 1 TABLET BY TAKE 1 MOUTH IN MOUTH IN TABLET BY THE MORNING THE MORNING MOUTH IN THE MORNING clopidogrel clopidogrel No 1 Q1D clopidogre [facility] 75 mg 75 mg l 75 mg Medical tablet Take tablet Take tablet 1 tablet 1 tablet Take 1 every day every day tablet by oral by oral every day route. route. by oral route. duloxetine duloxetine No duloxetine [facility] 20 mg 20 mg 20 mg Medical capsule,del capsule,del capsule,de ayed ayed layed release release release TAKE 1 TAKE 1 TAKE 1 CAPSULE BY CAPSULE BY CAPSULE BY MOUTH ONCE MOUTH ONCE MOUTH ONCE DAILY DAILY DAILY Eliquis 2.5 Eliquis 2.5 No 1 BID Eliquis [facility] mg tablet mg tablet 2.5 mg Med ical Take 1 Take 1 tablet tablet tablet Take 1 twice a day twice a day tablet by oral by oral twice a route. route. day by oral route. gabapentin gabapentin No 2capsul Q1D gabapentin [facility] 100 mg 100 mg e(s) 100 mg Medical capsule capsule capsule Take 2 Take 2 Take 2 capsules capsules capsules every day every day every day by oral by oral by oral route at route at route at bedtime. bedtime. bedtime. Humulin Humulin No Humulin [facility] 70/30 U-100 70/30 U-100 70/30 Medical Insulin 100 Insulin 100 U-100 unit/mL unit/mL Insulin subcutaneou subcutaneou 100 s s unit/mL suspension suspension subcutaneo INJECT 25 INJECT 25 us UNITS UNITS suspension SUBCUTANEOU SUBCUTANEOU INJECT 25 SLY TWICE SLY TWICE UNITS DAILY FOR DAILY FOR SUBCUTANEO 90 DAYS 90 DAYS USLY TWICE DAILY FOR 90 DAYS Levo-T 125 Levo-T 125 No 1 Q1D Levo-T 125 [facility] mcg tablet mcg tablet mcg tablet Medical Take 1 Take 1 Take 1 tablet tablet tablet every day every day every day by oral by oral by oral route. route. route. Immunizations Ordered Immunization Filled Immunization Date Status Commen ts Source Name Name FLUZONE HIGH DOSE FLUZONE HIGH DOSE 2021-03-07 Completed [facility] OVER 65 OVER 65 10:58:00 - [facility] FLUZONE HIGH DOSE FLUZONE HIGH DOSE 2021-03-07 Completed [facility] OVER 65 OVER 65 10:58:00 [facility] FLUZONE HIGH DOSE FLUZONE HIGH DOSE 2021-03-07 Completed [facility] OVER 65 OVER 65 10:58:00 [facility] FLUZONE HIGH DOSE FLUZONE HIGH DOSE 2021-03-07 Completed [facility] OVER 65 OVER 65 10:58:00 - [facility] FLUZONE HIGH DOSE FLUZONE HIGH DOSE 2021-03-07 Completed [facility] OVER 65 OVER 65 10:58:00 - [facility] FLUZONE HIGH DOSE FLUZONE HIGH DOSE 2021-03-07 Completed [facility] OVER 65 OVER 65 10:58:00 - [facility] FLUZONE HIGH DOSE FLUZONE HIGH DOSE 2021-03-07 Completed [facility] OVER 65 OVER 65 10:58:00 - [facility] FLUZONE HIGH DOSE FLUZONE HIGH DOSE 2021-03-07 Completed [facility] OVER 65 OVER 65 10:58:00 - [facility] FLUZONE HIGH DOSE FLUZONE HIGH DOSE 2021-03-07 Completed [facility] OVER 65 OVER 65 10:58:00 - [facility] FLUZONE HIGH DOSE FLUZONE HIGH DOSE 2021-03-07 Completed [facility] OVER 65 OVER 65 10:58:00 - [facility] FLUZONE HIGH DOSE FLUZONE HIGH DOSE 2021-03-07 Completed [facility] OVER 65 OVER 65 10:58:00 - [facility] FLUZONE HIGH DOSE FLUZONE HIGH DOSE 2021-03-07 Completed [facility] OVER 65 OVER 65 10:58:00 - [facility] FLUZONE HIGH DOSE FLUZONE HIGH DOSE 2021-03-07 Completed [facility] OVER 65 OVER 65 10:58:00 - [facility] FLUZONE HIGH DOSE FLUZONE HIGH DOSE 2021-03-07 Completed [facility] OVER 65 OVER 65 10:58:00 - [facility] FLUZONE HIGH DOSE FLUZONE HIGH DOSE 2021-03-07 Completed [facility] OVER 65 OVER 65 10:58:00 - [facility] FLUZONE HIGH DOSE FLUZONE HIGH DOSE 2021-03-07 Completed [facility] OVER 65 OVER 65 10:58:00 [facility] COVID-19 Vaccine COVID-19 Vaccine 2020-04-14 [facility] 13:50:00 - [facility] COVID-19 Vaccine COVID-19 Vaccine 2020-04-14 [facility]pleted [facility] (Dmitry) 13:50:00 - [facility] COVID-19 Vaccine COVID-19 Vaccine 2020-04-14 [facility]pleted [facility] (Dmitry) 13:50:00 - [facility] COVID-19 Vaccine COVID-19 Vaccine 2020-04-14 Completed [facility] (Dmitry) 13:50:00 - [facility] COVID-19 Vaccine COVID-19 Vaccine 2020-04-14 Completed [facility] (Dmitry) 13:50:00 - [facility] COVID-19 Vaccine COVID-19 Vaccine 2020-04-14 Completed [facility] (Dmitry) 13:50:00 - [facility] COVID-19 Vaccine COVID-19 Vaccine 2020-04-14 Completed [facility] (Dmitry) 13:50:00 - [facility] COVID-19 Vaccine COVID-19 Vaccine 2020-04-14 Completed [facility] (Dmitry) 13:50:00 - [facility] COVID-19 Vaccine COVID-19 Vaccine 2020-04-14 Completed [facility] (Dmitry) 13:50:00 [facility] COVID-19 Vaccine COVID-19 Vaccine 2020-04-14 Completed [facility] (Dmitry) 13:50:00 [facility] COVID-19 Vaccine COVID-19 Vaccine 2020-04-14 Completed [facility] (Dmitry) 13:50:00 - [facility] COVID-19 Vaccine COVID-19 Vaccine 2020-04-14 Completed [facility] (Dmitry) 13:50:00 [facility] COVID-19 Vaccine COVID-19 Vaccine 2020-04-14 Completed [facility] (Dmitry) 13:50:00 [facility] COVID-19 Vaccine COVID-19 Vaccine 2020-04-14 Completed [facility] (D[facility]ry) 13:50:00 - [facility] COVID-19 Vaccine COVID-19 Vaccine 2020-04-14 Completed [facility] ([employer]) 13:50:00 - [facility] COVID-19 Vaccine COVID-19 Vaccine 2020-04-14 Completed [facility] ([employer]) 13:50:00 - [facility] Influenza Three-TIV 2017-01-31 Completed [facility] PF 5+ YR 00:00:00 [facility] Center Influenza Three-TIV 2017-01-31 Completed [facility] PF 5+ YR 00:00:00 [facility] Center Influenza Three-TIV 2017-01-31 Completed [facility] PF 5+ YR 00:00:00 [facility] Center Influenza Three-TIV 2017-01-31 Completed [facility] PF 5+ YR 00:00:00 [facility] Center Influenza Three-TIV 2017-01-31 Completed [facility] PF 5+ YR 00:00:00 [facility] Center Influenza Three-TIV 2017-01-31 Completed [facility] PF 5+ YR 00:00:00 [facility] Center Influenza Three-TIV 2017-01-31 Completed [facility] PF 5+ YR 00:00:00 [facility] Center Influenza Three-TIV 2017-01-31 Completed [facility] PF 5+ YR 00:00:00 [facility] Center Vital Signs Vital Name Observation Time Observation Value Comments Source HEIGHT 2020-08-08 13:02:00 165.1 cm WEIGHT 2020-08-08 13:02:00 104.327 kg BP Diastolic 2022-05-28 00:00:00 72 mm[facility]Hg[facility] Height 2022-05-28 00:00:00 65 [in_i] [facility] BMI (Body Mass Index) 2022-05-28 00:00:00 41.6 kg/m2 [facility] BP Systolic 2022-05-28 00:00:00 131 mm[Hg] [facility] Body Weight 2022-05-28 00:00:00 4000 [oz_av] [facility] ical height 2022-01-01 13:20:00 64 [in_i] [facility] weight 2022-01-01 13:20:00 230 [lb_av] [facility] temperature 2022-01-01 13:20:00 97.4 [degF] [facility] bmi 2022-01-01 13:20:00 39.48 kg/m2 [facility] oximetry 2022-01-01 13:20:00 98 % [facility] respiratory rate 2022-01-01 13:20:00 17 /min Comm on [facility] blood pressure 2022-01-01 13:20:00 132 mm[Hg] [facility] - systolic [facility] blood pressure 2022-01-01 13:20:00 80 mm[Hg] [facility] - diastolic [facility] height 2021-10-02 14:20:00 64 [in_i] [facility] weight 2021-10-02 14:20:00 230 [lb_av] [facility] temperature 2021-10-02 14:20:00 97.9 [degF] [facility] bmi 2021-10-02 14:20:00 39.48 kg/m2 [facility] oximetry 2021-10-02 14:20:00 97 % [facility] respiratory rate 2021-10-02 14:20:00 18 /min Comm on [facility] blood pressure 2021-10-02 14:20:00 138 mm[Hg] [facility] - systolic [facility] blood pressure 2021-10-02 14:20:00 86 mm[Hg] [facility] - diastolic [facility] height 2021-07-19 13:40:00 64 [in_i] [facility] weight 2021-07-19 13:40:00 230 [lb_av] [facility] temperature 2021-07-19 13:40:00 97.9 [degF] [facility] bmi 2021-07-19 13:40:00 39.48 kg/m2 [facility] oximetry 2021-07-19 13:40:00 97 % [facility] respiratory rate 2021-07-19 13:40:00 16 /min Comm on [facility] blood pressure 2021-07-19 13:40:00 161 mm[Hg] [facility] - systolic [facility] blood pressure 2021-07-19 13:40:00 90 mm[Hg] [facility] - diastolic [facility] height 2021-06-05 13:20:00 64 [in_i] [facility] weight 2021-06-05 13:20:00 230 [lb_av] [facility] temperature 2021-06-05 13:20:00 97.6 [degF] [facility] bmi 2021-06-05 13:20:00 39.48 kg/m2 [facility] oximetry 2021-06-05 13:20:00 96 % [facility] respiratory rate 2021-06-05 13:20:00 18 /min Comm on [facility] blood pressure 2021-06-05 13:20:00 142 mm[Hg] [facility] - systolic [facility] blood pressure 2021-06-05 13:20:00 70 mm[Hg] [facility] - diastolic [facility] height 2021-04-27 10:40:00 64 [in_i] [facility] weight 2021-04-27 10:40:00 230 [lb_av] [facility] temperature 2021-04-27 10:40:00 97.7 [degF] [facility] bmi 2021-04-27 10:40:00 39.48 kg/m2 [facility] oximetry 2021-04-27 10:40:00 95 % [facility] respiratory rate 2021-04-27 10:40:00 18 /min Comm on [facility] blood pressure 2021-04-27 10:40:00 134 mm[Hg] [facility] - systolic [facility] blood pressure 2021-04-27 10:40:00 60 mm[Hg] [facility] - diastolic [facility] blood pressure 2021-03-07 09:40:00 132 mm[Hg] [facility] - systolic [facility] blood pressure 2021-03-07 09:40:00 80 mm[Hg] [facility] - diastolic [facility] height 2021-03-07 09:40:00 64 [in_i] [facility] weight 2021-03-07 09:40:00 230 [lb_av] [facility] temperature 2021-03-07 09:40:00 98.1 [degF] [facility] bmi 2021-03-07 09:40:00 39.48 kg/m2 [facility] oximetry 2021-03-07 09:40:00 98 % [facility] respiratory rate 2021-03-07 09:40:00 16 /min Comm on [facility] height 2021-03-07 10:20:00 64 [in_i] [facility] weight 2021-03-07 10:20:00 230 [lb_av] [facility] temperature 2021-03-07 10:20:00 98.1 [degF] [facility] bmi 2021-03-07 10:20:00 39.48 kg/m2 [facility] oximetry 2021-03-07 10:20:00 98 % [facility] 2021-03-07 10:20:00 132 mm[Hg] [facility] - systolic [facility] blood pressure 2021-03-07 10:20:00 80 mm[Hg] [facility] - diastolic [facility] HEIGHT 2020-08-08 13:02:00 165.1 cm WEIGHT 2020-08-08 13:02:00 104.327 kg Procedures Procedure Date / Time Performing Clinician Source Performed Pacemaker 2020-08-08 00:00:00 [facility] Insertion of Tunneled [facility] ical Dialysis Catheter Using Fluoroscopic Guidance [facility] Medical Plan of Care Planned Activity Planned Date Details Comments Source Future Scheduled Test 2022-10-[address] [facility] 00:00:00 (Season Ended) [code Medical Center = INFLUENZA VACCINE (Season Ended)] Future Scheduled Test 2022-10-[address] [facility] 00:00:00 (Season Ended) [code Medical Center = INFLUENZA VACCINE (Season Ended)] Future Scheduled Test 2022-10-[address] VACC[address] [facility] 00:00:00 (Season Ended) [code Medical Center = INFLUENZA VACCINE (Season Ended)] Future Scheduled Test 2022-10-[address]ZA VACC[address] [facility] 00:00:00 (Season Ended) [code Medical Center = INFLUENZA VACCINE (Season Ended)] Future Scheduled Test 2022-10-[address] V[address] [facility] 00:00:00 (Season Ended) [code Medical Center = INFLUENZA VACCINE (Season Ended)] Future Scheduled Test 2022-05-29 COVID-19 VACCINE (#1) [facility] 16:19:09 [code = COVID-19 VACCINE (#1)] Future Scheduled Test 2022-05-29 SHINGLES VACCINES (1 [facility] 16:19:09 of 2) [code = SHINGLES VACCINES (1 of 2)] Future Scheduled Test 2022-05-29 65+ PNEUMOCOCCAL [facility] 16:19:09 VACCINE (1 - PCV) [code = 65+ PNEUMOCOCCAL VACCINE (1 - PCV)] Future Scheduled Test 2022-05-29 INFLUENZA VACCINE [facility] 16:19:09 [code = INFLUENZA VACCINE] Future Scheduled Test 2022-05-29 COVID-19 VACCINE (#1) [facility] 16:19:09 [code = COVID-19 VACCINE (#1)] Future Scheduled Test 2022-05-29 SHINGLES VACCINES (1 [facility] 16:19:09 of 2) [code = SHINGLES VACCINES (1 of 2)] Future Scheduled Test 2022-05-29 65+ PNEUMOCOCCAL [facility] 16:19:09 VACCINE (1 - PCV) [code = 65+ PNEUMOCOCCAL VACCINE (1 - PCV)] Future Scheduled Test 2022-05-29 INFLUENZA VACCINE [facility] 16:19:09 [code = INFLUENZA VACCINE] Future Scheduled Test 2022-05-29 COVID-19 VACCINE (#1) [facility] 16:19:09 [code = COVID-19 VACCINE (#1)] Future Scheduled Test 2022-05-29 SHINGLES VACCINES (1 [facility] 16:19:09 of 2) [code = SHINGLES VACCINES (1 of 2)] Future Scheduled Test 2022-05-29 65+ PNEUMOCOCCAL [facility] 16:19:09 VACCINE (1 - PCV) [code = 65+ PNEUMOCOCCAL VACCINE (1 - PCV)] Future Scheduled Test 2022-05-29 INFLUENZA VACCINE [facility] 16:19:09 [code = INFLUENZA VACCINE] Future Scheduled Test 2022-03-08 COVID-19 VACCINE (#1) [facility] 05:54:06 [code = COVID-19 VACCINE (#1)] Future Scheduled Test 2022-03-08 SHINGLES VACCINES (1 [facility] 05:54:06 of 2) [code = SHINGLES VACCINES (1 of 2)] Future Scheduled Test 2022-03-08 65+ PNEUMOCOCCAL [facility] 05:54:06 VACCINE (1 - PCV) [code = 65+ PNEUMOCOCCAL VACCINE (1 - PCV)] Future Scheduled Test 2022-03-08 INFLUENZA VACCINE [facility] 05:54:06 [code = INFLUENZA VACCINE] Future Scheduled Test 2022-03-08 COVID-19 VACCINE (#1) [facility] 05:54:06 [code = COVID-19 VACCINE (#1)] Future Scheduled Test 2022-03-08 SHINGLES VACCINES (1 [facility] 05:54:06 of 2) [code = SHINGLES VACCINES (1 of 2)] Future Scheduled Test 2022-03-08 65+ PNEUMOCOCCAL [facility] 05:54:06 VACCINE (1 - PCV) [code = 65+ PNEUMOCOCCAL VACCINE (1 - PCV)] Future Scheduled Test 2022-03-08 INFLUENZA VACCINE [facility] 05:54:06 [code = INFLUENZA VACCINE] Future Scheduled Test 2022-02-[address] [facility] 00:00:00 (12+) [code = Medical Center DEPRESSION SCREENING (12+)] Future Scheduled Test 2022-02-10 FALLS RISK SCREENING [facility] 00:00:00 [code = FALLS RISK Medical C enter SCREENING] Future Scheduled Test 2022-02-[address] [facility] 00:00:00 (12+) [code = Medical Center DEPRESSION SCREENING (12+)] Future Scheduled Test 2022-02-10 FALLS RISK SCREENING [facility] 00:00:00 [code = FALLS RISK Medical C enter SCREENING] Future Scheduled Test 2022-02-[address] [facility] 00:00:00 (12+) [code = Medical Center DEPRESSION SCREENING (12+)] Future Scheduled Test 2022-02-10 FALLS RISK SCREENING [facility] 00:00:00 [code = FALLS RISK Medical C enter SCREENING] Future Scheduled Test 2022-02-[address] [facility] 00:00:00 (12+) [code = Medical Center DEPRESSION SCREENING (12+)] Future Scheduled Test 2022-02-10 FALLS RISK SCREENING [facility] 00:00:00 [code = FALLS RISK Medical C enter SCREENING] Future Scheduled Test 2022-02-[address] [facility] 00:00:00 (12+) [code = Medical Center DEPRESSION SCREENING (12+)] Future Scheduled Test 2022-02-10 FALLS RISK SCREENING [facility] 00:00:00 [code = FALLS RISK Medical C enter SCREENING] Future Scheduled Test 2022-02-[address] [facility] 00:00:00 (12+) [code = Medical Center DEPRESSION SCREENING (12+)] Future Scheduled Test 2022-02-10 FALLS RISK SCREENING [facility] 00:00:00 [code = FALLS RISK Medical C enter SCREENING] Future Scheduled Test 2022-02-[address] [facility] 00:00:00 (12+) [code = Medical Center DEPRESSION SCREENING (12+)] Future Scheduled Test 2022-02-10 FALLS RISK SCREENING [facility] 00:00:00 [code = FALLS RISK Medical C enter SCREENING] Future Scheduled Test 2022-02-[address] [facility] 00:00:00 (12+) [code = Medical Center DEPRESSION SCREENING (12+)] Future Scheduled Test 2022-02-10 FALLS RISK SCREENING [facility] 00:00:00 [code = FALLS RISK Medical C enter SCREENING] Future Scheduled Test 2021-10-[address]ZA [address]ACC[address] [facility] 00:00:00 (#1) [code = Medical Center INFLUENZA VACCINE (#1)] Future Scheduled Test 2021-10-[address] V[address] [facility] 00:00:00 (#1) [code = Medical Center INFLUENZA VACCINE (#1)] Future Scheduled Test 2021-10-[address] [facility] 00:00:00 (#1) [code = Medical Center INFLUENZA VACCINE (#1)] Future Scheduled Test 2017-08-[address] [facility] 00:00:00 measurement Medical Center (procedure) [code = 35220005] Future Scheduled Test 2017-08-[address] [facility] 00:00:00 measurement Medical Center (procedure) [code = [id number]] Future Scheduled Test 2017-08-[address] [facility] 00:00:00 measurement Medical Center (procedure) [code = [id number]] Future Scheduled Test 2017-08-[address] [facility] 00:00:00 measurement Medical Center (procedure) [code = [id number]] Future Scheduled Test 2017-08-[address] [facility] 00:00:00 measurement Medical Center (procedure) [code = [id number]] Future Scheduled Test 2017-08-[address] [facility] 00:00:00 measurement Medical Center (procedure) [code = [id number]] Future Scheduled Test 2017-08-[address] [facility] 00:00:00 measurement Medical Center (procedure) [code = [id number]] Future Scheduled Test 2017-08-[address] [facility] 00:00:00 measurement Medical Center (procedure) [code = [id number]] Future Scheduled Test 2017-02-[address] [facility] 00:00:00 WELLNESS (YEAR 2 or Medical Center FIRST YEAR if no IPPE) [code = MEDICARE ANNUAL WELLNESS (YEAR 2 or FIRST YEAR if no IPPE)] Future Scheduled Test 2017-02-[address] [facility] 00:00:00 WELLNESS (YEAR 2 or Medical Center FIRST YEAR if no IPPE) [code = MEDICARE ANNUAL WELLNESS (YEAR 2 or FIRST YEAR if no IPPE)] Future Scheduled Test 2017-02-[address] [facility] 00:00:00 WELLNESS (YEAR 2 or Medical Center FIRST YEAR if no IPPE) [code = MEDICARE ANNUAL WELLNESS (YEAR 2 or FIRST YEAR if no IPPE)] Future Scheduled Test 2017-02-[address] [facility] 00:00:00 WELLNESS (YEAR 2 or Medical Center FIRST YEAR if no IPPE) [code = MEDICARE ANNUAL WELLNESS (YEAR 2 or FIRST YEAR if no IPPE)] Future Scheduled Test 2017-02-[address] [facility] 00:00:00 WELLNESS (YEAR 2 or Medical Center FIRST YEAR if no IPPE) [code = MEDICARE ANNUAL WELLNESS (YEAR 2 or FIRST YEAR if no IPPE)] Future Scheduled Test 2017-02-[address] [facility] 00:00:00 WELLNESS (YEAR 2 or Medical Center FIRST YEAR if no IPPE) [code = MEDICARE ANNUAL WELLNESS (YEAR 2 or FIRST YEAR if no IPPE)] Future Scheduled Test 2017-02-[address] [facility] 00:00:00 WELLNESS (YEAR 2 or Medical Center FIRST YEAR if no IPPE) [code = MEDICARE ANNUAL WELLNESS (YEAR 2 or FIRST YEAR if no IPPE)] Future Scheduled Test 2017-02-[address] [facility] 00:00:00 WELLNESS (YEAR 2 or Medical Center FIRST YEAR if no IPPE) [code = MEDICARE ANNUAL WELLNESS (YEAR 2 or FIRST YEAR if no IPPE)] Future Scheduled Test 1991-08-13 SHINGLES VACCINES ([address] [facility] 00:00:00 of 2) [code = Medical Center SHINGLES VACCINES (1 of 2)] Future Scheduled Test 1991-08-13 SHINGLES VACCINES ([address] [facility] 00:00:00 of 2) [code = Medical Center SHINGLES VACCINES (1 of 2)] Future Scheduled Test 1991-08-13 SHINGLES VACCINES ([address] [facility] 00:00:00 of 2) [code = Medical Center SHINGLES VACCINES (1 of 2)] Future Scheduled Test 1991-08-13 SHINGLES VACCINES ([address] [facility] 00:00:00 of 2) [code = Medical Center SHINGLES VACCINES (1 of 2)] Future Scheduled Test 1991-08-13 SHINGLES VACCINES ([address] [facility] 00:00:00 of 2) [code = Medical Center SHINGLES VACCINES (1 of 2)] Future Scheduled Test 1991-08-13 SHINGLES VACCINES ([address] [facility] 00:00:00 of 2) [code = Medical Center SHINGLES VACCINES (1 of 2)] Future Scheduled Test 1991-08-13 SHINGLES VACCINES ([address] [facility] 00:00:00 of 2) [code = Medical Center SHINGLES VACCINES (1 of 2)] Future Scheduled Test 1991-08-13 SHINGLES VACCINES ([address] [facility] 00:00:00 of 2) [code = Medical Center SHINGLES VACCINES (1 of 2)] Future Scheduled Test 1960 DTAP/TDAP/TD VACCINES [facility] 00:00:00 (1 - Tdap) [code = Medical C enter DTAP/TDAP/TD VACCINES (1 - Tdap)] Future Scheduled Test 1960 DTAP/TDAP/TD VACCINES [facility] 00:00:00 (1 - Tdap) [code = Medical C enter DTAP/TDAP/TD VACCINES (1 - Tdap)] Future Scheduled Test 1960 DTAP/TDAP/TD VACCINES [facility] 00:00:00 (1 - Tdap) [code = Medical C enter DTAP/TDAP/TD VACCINES (1 - Tdap)] Future Scheduled Test 1960 DTAP/TDAP/TD VACCINES [facility] 00:00:00 (1 - Tdap) [code = Medical C enter DTAP/TDAP/TD VACCINES (1 - Tdap)] Future Scheduled Test 1960 DTAP/TDAP/TD VACCINES [facility] 00:00:00 (1 - Tdap) [code = Medical C enter DTAP/TDAP/TD VACCINES (1 - Tdap)] Future Scheduled Test 1960 DTAP/TDAP/TD VACCINES [facility] 00:00:00 (1 - Tdap) [code = Medical C enter DTAP/TDAP/TD VACCINES (1 - Tdap)] Future Scheduled Test 1960 DTAP/TDAP/TD VACCINES [facility] 00:00:00 (1 - Tdap) [code = Medical C enter DTAP/TDAP/TD VACCINES (1 - Tdap)] Future Scheduled Test 1960 DTAP/TDAP/TD VACCINES [facility] 00:00:00 (1 - Tdap) [code = Medical C enter DTAP/TDAP/TD VACCINES (1 - Tdap)] Future Scheduled Test [address] [facility] 00:00:00 [facility] Cent[facility] r Screening (12+) [code = Tobacco Cessation Counseling and Screening (12+)] Future Scheduled Test [address] [facility] 00:00:00 [facility] Cent[facility] r Screening (12+) [code = Tobacco Cessation Counseling and Screening (12+)] Future Scheduled Test [address] [facility] 00:00:00 [facility] Cent[facility] r Screening (12+) [code = Tobacco Cessation Counseling and Screening (12+)] Future Scheduled Test [address] [facility] 00:00:00 [facility] Cent[facility] r Screening (12+) [code = Tobacco Cessation Counseling and Screening (12+)] Future Scheduled Test [address] [facility] 00:00:00 [facility] Cent[facility] r Screening (12+) [code = Tobacco Cessation Counseling and Screening (12+)] Future Scheduled Test [address] [facility] 00:00:00 [facility] Cent[facility] r Screening (12+) [code = Tobacco Cessation Counseling and Screening (12+)] Future Scheduled Test [address] [facility] 00:00:00 Counseling [facility] Cent[facility] r Screening (12+) [code = Tobacco Cessation Counseling and Screening (12+)] Future Scheduled Test [address] [facility] 00:00:00 [facility]ing and [facility] Cent[facility] r Screening (12+) [code = Tobacco Cessation Counseling and Screening (12+)] Future Scheduled Test 1951-08-13 DIABETIC EYE EXAM [facility] 00:00:00 [code = DIABETIC EYE Medical Center EXAM] Future Scheduled Test 1951-08-13 Diabetic foot [facility] examination Medical Center (regime/therapy) [code = 950415441] Future Scheduled Test 1951-08-13 Urine screening for [facility] 00:00:00 protein (procedure) Medical Center [code = 269841143] Future Scheduled Test 1951-08-13 DIABETIC EYE EXAM [facility] 00:00:00 [code = DIABETIC EYE Medical Center EXAM] Future Scheduled Test 1951-08-13 Diabetic foot [facility] examination Medical Center (regime/therapy) [code = 746386783] Future Scheduled Test 1951-08-13 Urine screening for [facility] 00:00:00 protein (procedure) Medical Center [code = 797322588] Future Scheduled Test 1951-08-13 DIABETIC EYE EXAM [facility] 00:00:00 [code = DIABETIC EYE Medical Center EXAM] Future Scheduled Test 1951-08-13 Diabetic foot [facility] 00:[facility] examination Medical Center (regime/therapy) [code = 583820947] Future Scheduled Test 1951-08-13 Urine screening for [facility] 00:00:00 protein (procedure) Medical Center [code = 245634675] Future Scheduled Test 1951-08-13 DIABETIC EYE EXAM [facility] 00:00:00 [code = DIABETIC EYE Medical Center EXAM] Future Scheduled Test 1951-08-13 Diabetic foot [facility] 00:[facility] examination Medical Center (regime/therapy) [code = 988696960] Future Scheduled Test 1951-08-13 Urine screening for [facility] 00:00:00 protein (procedure) Medical Center [code = 815637241] Future Scheduled Test 1951-08-13 DIABETIC EYE EXAM [facility] 00:00:00 [code = DIABETIC EYE Medical Center EXAM] Future Scheduled Test 1951-08-13 Diabetic foot [facility] 00:[facility] examination Medical Center (regime/therapy) [code = 113680474] Future Scheduled Test 1951-08-13 Urine screening for [facility] 00:00:00 protein (procedure) Medical Center [code = 113157106] Future Scheduled Test 1951-08-13 DIABETIC EYE EXAM [facility] 00:00:00 [code = DIABETIC EYE Medical Center EXAM] Future Scheduled Test 1951-08-13 Diabetic foot [facility] 00:[facility] examination Medical Center (regime/therapy) [code = 691872666] Future Scheduled Test 1951-08-13 Urine screening for [facility] 00:00:00 protein (procedure) Medical Center [code = 339987684] Future Scheduled Test 1951-08-13 DIABETIC EYE EXAM [facility] 00:00:00 [code = DIABETIC EYE Medical Center EXAM] Future Scheduled Test 1951-08-13 Diabetic foot [facility] 00:[facility] examination Medical Center (regime/therapy) [code = 516414397] Future Scheduled Test 1951-08-13 Urine screening for [facility] 00:00:00 protein (procedure) Medical Center [code = 225201996] Future Scheduled Test 1951-08-13 DIABETIC EYE EXAM [facility] 00:00:00 [code = DIABETIC EYE Medical Center EXAM] Future Scheduled Test 1951-08-13 Diabetic foot [facility] 00:[facility] examination Medical Center (regime/therapy) [code = 759231523] Future Scheduled Test 1951-08-13 Urine screening for [facility] 00:00:00 protein (procedure) Medical Center [code = 891244568] Future Scheduled Test 1947-08-13 PNEUMOCOCCAL 65+ YRS [facility] 00:00:00 (1 - PCV) [code = Medical Ce nter PNEUMOCOCCAL 65+ YRS (1 - PCV)] Future Scheduled Test 1947-08-13 PNEUMOCOCCAL 65+ YRS [facility] 00:00:00 (1 - PCV) [code = Medical Ce nter PNEUMOCOCCAL 65+ YRS (1 - PCV)] Future Scheduled Test 1947-08-13 PNEUMOCOCCAL 65+ YRS [facility] 00:00:00 (1 - PCV) [code = Medical Ce nter PNEUMOCOCCAL 65+ YRS (1 - PCV)] Future Scheduled Test 1947-08-13 PNEUMOCOCCAL 65+ YRS [facility] 00:00:00 (1 - PCV) [code = Medical Ce nter PNEUMOCOCCAL 65+ YRS (1 - PCV)] Future Scheduled Test 1947-08-13 PNEUMOCOCCAL 65+ YRS [facility] 00:00:00 (1 - PCV) [code = Medical Ce nter PNEUMOCOCCAL 65+ YRS (1 - PCV)] Future Scheduled Test 1947-08-13 PNEUMOCOCCAL 65+ YRS [facility] 00:00:00 (1 - PCV) [code = Medical Ce nter PNEUMOCOCCAL 65+ YRS (1 - PCV)] Future Scheduled Test 1947-08-13 PNEUMOCOCCAL 65+ YRS [facility] 00:00:00 (1 - PCV) [code = Medical Ce nter PNEUMOCOCCAL 65+ YRS (1 - PCV)] Future Scheduled Test 1947-08-13 PNEUMOCOCCAL 65+ YRS [facility] 00:00:00 (1 - PCV) [code = Medical Ce nter PNEUMOCOCCAL 65+ YRS (1 - PCV)] Future Scheduled Test 1942-02-12 COVID-19 VACCINE (#1) [facility] 00:00:00 [code = COVID-[address] VACCINE (#1)] Future Scheduled Test 1942-02-12 COVID-19 VACCINE (#1) [facility] 00:00:00 [code = COVID-[address] VACCINE (#1)] Future Scheduled Test 1942-02-12 COVID-19 VACCINE (#1) [facility] 00:00:00 [code = COVID-[address] VACCINE (#1)] Future Scheduled Test 1942-02-12 COVID-19 VACCINE (#1) [facility] 00:00:00 [code = COVID-[address] VACCINE (#1)] Future Scheduled Test 1942-02-12 COVID-19 VACCINE (#1) [facility] 00:00:00 [code = COVID-[address] VACCINE (#1)] Future Scheduled Test 1942-02-12 COVID-19 VACCINE (#1) [facility] 00:00:00 [code = COVID-[address] VACCINE (#1)] Future Scheduled Test 1942-02-12 COVID-19 VACCINE (#1) [facility] 00:00:00 [code = COVID-[address] VACCINE (#1)] Future Scheduled Test 1942-02-12 COVID-19 VACCINE (#1) [facility] 00:00:00 [code = COVID-[address] VACCINE (#1)] Future Scheduled Test 1941 DXA SCAN [code = DXA [facility] 00:00:00 SCAN] Medical Center Future Scheduled Test 1941 DXA SCAN [code = DXA [facility] 00:00:00 SCAN] Medical Center Future Scheduled Test 1941 DXA SCAN [code = DXA [facility] 00:00:00 SCAN] [facility] Center Future Scheduled Test 1941 DXA SCAN [code = DXA [facility] 00:00:00 SCAN] [facility] Center Future Scheduled Test 1941 DXA SCAN [code = DXA [facility] 00:00:00 SCAN] [facility] Center Future Scheduled Test 1941 DXA SCAN [code = DXA [facility] 00:00:00 SCAN] [facility] Center Future Scheduled Test 1941 DXA SCAN [code = DXA [facility] 00:00:00 SCAN] [facility] Center Future Scheduled Test 1941 DXA SCAN [code = DXA [facility] 00:00:00 SCAN] [facility] Center Future Appointment 2027-06-05 Nannette Sylvester [address] [place] [address] 00:00:00 [place] [address] Encounters Start End Encounter Admission Attending Care Care Encounter Source Date/Time Date/Time Type Type Clinicians Facility Department ID 2022-04-11 Outpatient Knott, STLMLC STLMLC [id number] Common 15:39:00 Jacqui [id number] [facility] 2022-03-18 Outpatient Knott, STLMLC STLMLC [id number] Common 10:09:03 Jacqui [id number] [facility] 2022-03-04 Outpatient Knott, STLMLC STLMLC [id number] Common 14:03:03 Jacqui [id number] [facility] 2022-02-27 Outpatient Knott, STLMLC STLMLC [id number] Common 09:36:03 Jacqui [id number] [facility] 2022-02-12 Outpatient Knott, STLMLC STLMLC [id number] Common 10:34:01 Jacqui [id number] [facility] 2021-09-28 Outpatient Knott, STLMLC STLMLC [id number] Common 11:23:02 Jacqui [facility] 2021-08-28 Outpatient Knott, STLMLC STLMLC [id number] Common 10:04:02 Jacqui [facility] 2021-07-17 Outpatient Knott, STLMLC STLMLC [id number] Common 11:12:01 Jacqui [id number] [facility] 2021-06-06 Outpatient Knott, STLMLC STLMLC [id number] Common 07:42:01 Jacqui [facility] 2021-04-25 Outpatient Knott, STLMLC STLMLC [id number] Common 09:14:02 Jacqui [facility] 2021-03-14 Outpatient Knott, STAMAYALC STLMLC [id number] Common 13:05:01 Jacqui [facility] 2021-03-07 Outpatient Rio, STLMLC STLMLC [id number] Common 14:40:28 Jacqui [facility] 2020-11-19 Outpatient KACIE FISCHER [facility] Surgery [id number] SLE 02:33:02 2022-06-14 2022-06-14 Outpatient [facility]Tod PRIV PRIV [id number] [facility] 00:00:00 00:00:00 d_J [id number] Medica l 2022-06-14 2022-06-14 Outpatient [facility]_Tod PRIV PRIV [id number] [facility] 00:00:00 00:00:00 d_J [id number] Medica l 2022-05-30 2022-05-30 Outpatient [facility]_Tod PRIV PRIV [id number] [facility] 00:00:00 00:00:00 d_J [id number] Medica l 2022-05-30 2022-05-30 Outpatient [facility]_Tod PRIV PRIV [id number] [facility] 00:00:00 00:00:00 d_J [id number] Medica l 2022-05-28 2022-05-28 Outpatient [facility]_Tod PRIV PRIV [id number] [facility] 00:00:00 00:00:00 d_J [id number] Medica l 2022-05-28 2022-05-28 Outpatient [facility]_Tod PRIV PRIV [id number] [facility] 00:00:00 00:00:00 d_J [id number] Medica l 2022-05-28 2022-05-28 Nannette BARRAGAN [facility] 418 [facility] 00:00:00 00:00:00 ARCELIA Sylvester: Health - Med ica [address] [address] , Ph. 2022-01-08 2022-01-08 (TEL) STLMLC STLMLC [id number] [facility] 00:00:00 00:00:00 [facility] 2022-01-01 2022-01-01 OFFICE STLMLC STLMLC [id number] [facility] 00:00:00 00:00:00 VISIT Spirit ESTAB PT - CHI LEVEL 4 [facility] 2021-11-20 2021-11-20 (TEL) STLMLC STLMLC [id number] [facility] 00:00:00 00:00:00 [facility] 2021-10-26 2021-10-26 (TEL) STLMLC STLMLC [id number] [facility] 00:00:00 00:00:00 [facility] 2021-10-02 2021-10-02 OFFICE STLMLC STLMLC [id number] [facility] 00:00:00 00:00:00 VISIT Spirit ESTAB PT - CHI LEVEL 4 [facility] 2021-08-17 2021-08-17 (TEL) STLMLC STLMLC [id number] [facility] 00:00:00 00:00:00 [facility] 2021-07-19 2021-07-19 OFFICE STLMLC STLMLC [id number] [facility] 00:00:00 00:00:00 VISIT Spirit ESTAB PT - CHI LEVEL 4 [facility] 2021-07-17 2021-07-17 (TEL) STLMLC STLMLC [id number] Co mmon 00:00:00 00:00:00 [facility] 2021-06-05 2021-06-05 OFFICE STLMLC STLMLC [id number] [facility] 00:00:00 00:00:00 VISIT Spirit ESTAB PT - CHI LEVEL 4 [facility] 2021-05-08 2021-05-08 (TEL) STLMLC STLMLC [id number] Co [facility] 00:00:00 00:00:00 Spirit - CHI [facility] 2021-04-27 2021-04-27 OFFICE STLMLC STLMLC [id number] [facility] 00:00:00 00:00:00 VISIT EST Spir it PT LEVEL 3 - CHI [facility] 2021-04-19 2021-04-19 (TEL) STLMLC STLMLC [id number] [facility] 00:00:00 00:00:00 Spirit - [facility] 2021-03-07 2021-03-07 OFFICE STLMLC STLMLC [id number] Co [facility] 00:00:00 00:00:00 VISIT Asa ESTAB PT - CHI LEVEL 4 [facility] 2021-03-07 2021-03-07 SUB ANNUAL STLMLC STLC [id number] Common 00:00:00 00:00:00 MCR [facility] WELLNESS - CHI VISIT [facility] 2020-08-08 2020-08-08 Outpatient [facility] [id number] [facility] 00:00:00 23:59:00 Javid e Results Test Description Test Time Test Comments Results Result Comments Source HEMOGLOBIN A1C 2022-01-01 00:00:00 Test Item Value Reference Range Interpretation Comme nts A1C (test code = 4548-4) 10.6 HEMOGLOBIN [id number] 00:00:00 Test Item Value Reference Range Interpretation Comments A1C (test code = 4548-4) 10.3 HEMOGLOBIN [id number] 00:00:00 Test Item Value Reference Range Interpretation Comments A1C (test code = 4548-4) 8.8 HEMOGLOBIN [id number] 00:00:00 Test Item Value Reference Range Interpretation Comments A1C (test code = 4548-4) 9.4 RAD, CHEST, 1 VIEW, NON [id number] 20:01:00Reason for exam:->s/p PPM implantShould this be performed at the bedside?->Yes [facility] : 1940 Sex: FFINALREPORT AP chest dated 08/08/2020 Comment: Heart is in upper limits of normal in size. Pulmonary vasculature is unremarkable. Lungs are clear. No pulmonary infiltrate or pleural effusion. AICD is present. No pneumothorax is seen. Signed: [place] Ring MDReport Verified Date/Time: 08/08/2020 20:01:08 Reading Location: [facility] C013W Consult Reading Room BASIC METABOLIC [id number] 19:57:00 Test Item Value Reference Range Interpretation [...] S NOT APPLICABLE FOR DIALYSIS PATIEN TS. 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 - IVANIA CCBC W/PLT COUNT & AUTO [id number] 13:56:00 Test Item Value Reference Range Interpretation [...] (BEAKER) (test code = 2801) URINALYSIS W/ [id number] 14:41:00 Test Item Value Reference Range Interpretation [...] Urine, Straight code = 2795) Catheter POCT-GLUCOSE [id number] 11:21:00 Test Item Value Reference Range Interpretation Comments POC-GLUCOSE METER 167 mg/dL 70-110 H TESTED AT [place] [address] (BEAKER) (test code = TUTU STROUD 1538) 16210 POCT-GLUCOSE [id number] 08:56:00 Test Item Value Reference Range Interpretation Comments POC-GLUCOSE METER 167 mg/dL 70-110 H TESTED AT [place] [address] (BEAKER) (test code = TUTU STROUD 1538) 20430 POCT-GLUCOSE [id number] 22:03:00 Test Item Value Reference Range Interpretation Comments POC-GLUCOSE METER 128 mg/dL 70-110 H TESTED AT [place] [address] (BEAKER) (test code = TUTU STROUD 1538) 32925 POCT-GLUCOSE [id number] 17:31:00 Test Item Value Reference Range Interpretation Comments POC-GLUCOSE METER 141 mg/dL 70-110 H TESTED AT [place] [address] ([facility]) (test code = TUTU [place] 1538) [address]95 POCT-GLUCOSE [id number] 11:58:00 Test Item Value Reference Range Interpretation Comments POC-GLUCOSE METER 159 mg/dL 70-110 H TESTED AT [place] [address] ([facility]) (test code = TUTU [place] 1538) 07413 POCT-GLUCOSE [id number] 07:47:00 Test Item Value Reference Range Interpretation Comments POC-GLUCOSE METER 115 mg/dL 70-110 H TESTED AT [place] [address] ([facility]) (test code = TUTU [place] 1538) 08976 POCT-GLUCOSE [id number] 21:03:00 Test Item Value Reference Range Interpretation Comments POC-GLUCOSE METER 177 mg/dL 70-110 H TESTED AT [place] [address] ([facility]) (test code = TUTU [place] 1538) 96081 POCT-GLUCOSE [id number] 16:23:00 Test Item Value Reference Range Interpretation Comments POC-GLUCOSE METER 185 mg/dL 70-110 H TESTED AT [place] [address] ([facility]) (test code = TUTU [place] 1538) 93000 POCT-GLUCOSE [id number] 12:04:00 Test Item Value Reference Range Interpretation Comments POC-GLUCOSE METER 208 mg/dL 70-110 H TESTED AT [place] [address] ([facility]) (test code = TUTU [place] 1538) 16910 POCT-GLUCOSE [id number] 07:51:00 Test Item Value Reference Range Interpretation Comments POC-GLUCOSE METER 127 mg/dL 70-110 H TESTED AT [place] [address] ([facility]) (test code = TUTU [place] 1538) 27570 POCT-GLUCOSE [id number] 20:44:00 Test Item Value Reference Range Interpretation Comments POC-GLUCOSE METER 225 mg/dL 70-110 H TESTED AT [place] [address] ([facility]) (test code = TUTU [place] 1538) 36719 POCT-GLUCOSE [id number] 17:52:00 Test Item Value Reference Range Interpretation Comments POC-GLUCOSE METER 150 mg/dL 70-110 H TESTED AT [place] [address] ([facility]) (test code = TUTU [place] 1538) 63551 POCT-GLUCOSE [id number] 12:45:00 Test Item Value Reference Range Interpretation Comments POC-GLUCOSE METER 176 mg/dL 70-110 H TESTED AT [place] [address] ([facility]) (test code = TUTU [place] 1538) 80253 POCT-GLUCOSE [id number] 07:41:00 Test Item Value Reference Range Interpretation Comments POC-GLUCOSE METER 147 mg/dL 70-110 H TESTED AT [place] [address] ([facility]) (test code = TUTU [place] 1538) 69952 POCT-GLUCOSE [id number] 20:42:00 Test Item Value Reference Range Interpretation Comments POC-GLUCOSE METER 194 mg/dL 70-110 H TESTED AT [place] [address] ([facility]) (test code = TUTU [place] 1538) 24718 POCT-GLUCOSE [id number] 17:33:00 Test Item Value Reference Range Interpretation Comments POC-GLUCOSE METER 174 mg/dL 70-110 H TESTED AT [place] [address] ([facility]) (test code = TUTU [place] 1538) 04296 POCT-GLUCOSE [id number] 12:14:00 Test Item Value Reference Range Interpretation Comments POC-GLUCOSE METER 153 mg/dL 70-110 H TESTED AT [place] [address] ([facility]) (test code = TUTU [place] 1538) 56664 POCT-GLUCOSE [id number] 07:55:00 Test Item Value Reference Range Interpretation Comments POC-GLUCOSE METER 220 mg/dL 70-110 H TESTED AT [place] [address] ([facility]) (test code = TUTU [place] 1538) 00843 POCT-GLUCOSE [id number] 20:50:00 Test Item Value Reference Range Interpretation Comments POC-GLUCOSE METER 241 mg/dL 70-110 H TESTED AT [place] [address] ([facility]) (test code = TUTU [place] 1538) 17007 POCT-GLUCOSE [id number] 16:54:00 Test Item Value Reference Range Interpretation Comments POC-GLUCOSE METER 218 mg/dL 70-110 H TESTED AT [place] [address] ([facility]) (test code = TUTU Reese [facility] 1538) 45263 POCT-GLUCOSE [id number] 11:45:00 Test Item Value Reference Range Interpretation Comments POC-GLUCOSE METER 257 mg/dL 70-110 H TESTED AT [facility] [address] (BEAKER) (test code = TUTU Reese [facility] 1538) 83760 POCT-GLUCOSE [id number] 07:57:00 Test Item Value Reference Range Interpretation Comments POC-GLUCOSE METER 219 mg/dL 70-110 H TESTED AT [facility] 67[address] (BEAKER) (test code = [facility] Hugh [facility] 1538) [address] BASIC METABOLIC [id number] 06:05:00 Test Item Value Reference Range Interpretation [...] PATIEN TS. CBC W/PLT COUNT & AUTO [id number] 05:42:00 Test Item Value Reference Range Interpretation [...] PERCENT (BEAKER) (test code = 2801) POCT-GLUCOSE [id number] 20:57:00 Test Item Value Reference Range Interpretation Comments POC-GLUCOSE METER 301 mg/dL 70-110 H Notified Hugh Hudson MD/TESTED (BEAKER) (test code = AT [facility] [address] [address]) [facility] 7703 0 POCT-GLUCOSE [id number] 15:57:00 Test Item Value Reference Range Interpretation Comments POC-GLUCOSE METER 292 mg/dL 70-110 H TESTED AT [place] [address] [facility] (test code = TUTU [place] 1538) 83305 POCT-GLUCOSE [id number] 13:36:00 Test Item Value Reference Range Interpretation Comments POC-GLUCOSE METER 181 mg/dL 70-110 H TESTED AT [place] [address] ([facility] (test code = TUTU [place] 1538) 99156 POCT-GLUCOSE [id number] 07:46:00 Test Item Value Reference Range Interpretation Comments POC-GLUCOSE METER 172 mg/dL 70-110 H TESTED AT [place] [address] ([facility]) (test code = TUTU [place] 1538) 14997 POCT-GLUCOSE [id number] 21:03:00 Test Item Value Reference Range Interpretation Comments POC-GLUCOSE METER 195 mg/dL 70-110 H TESTED AT [place] [address] ([facility]) (test code = TUTU Reese [facility] 1538) 59516 POCT-GLUCOSE [id number] 16:41:00 Test Item Value Reference Range Interpretation Comments POC-GLUCOSE METER 198 mg/dL 70-110 H TESTED AT [place] [address] ([facility]) (test code = TUTU Reese [facility] 1538) 41952 POCT-GLUCOSE [id number] 12:08:00 Test Item Value Reference Range Interpretation Comments POC-GLUCOSE METER 241 mg/dL 70-110 H TESTED AT [place] [address] ([facility]) (test code = TUTU Reese [facility] 1538) 75561 POCT-GLUCOSE [id number] 08:27:00 Test Item Value Reference Range Interpretation Comments POC-GLUCOSE METER 300 mg/dL 70-110 H TESTED AT [place] [address] ([facility] (test code = TUTU Reese [facility] 1538) [address] BASIC METABOLIC [id number] 05:56:00 Test Item Value Reference Range Interpretation [...] NOT APPLICABLE FOR DIALYSIS PATIEN TS. PROTHROMBIN [id number] 04:54:00 Test Item Value Reference Range Interpretation Comments PROTIME (BEAKER) (test code = 14.5 seconds 11.7-14.7 759) INR (BEAKER) (test code = 370) 1.1 <=5.9 RECOMMENDED COUMADIN/WARFARIN INR THERAPY RANGESSTANDARD DOSE: 2.0 - 3.0 Includes: PROPHYLAXIS for venous thrombosis, systemic embolization; TREATMENT for venous thrombosis and/or pulmonary embolus.HIGH RISK: Target INR is 2.5-3.5 for patients with mechanical heart valves.CBC W/PLT COUNT & AUTO [id number] 04:50:00 Test Item Value Reference Range Interpretation [...] PERCENT (BEAKER) (test code = 2801) POCT-GLUCOSE [id number] 22:08:00 Test Item Value Reference Range Interpretation Comments POC-GLUCOSE METER 285 mg/dL 70-110 H TESTED AT [facility] (test code = TUTU Reese [facility] 1538) 52667 POCT-GLUCOSE [id number] 16:19:00 Test Item Value Reference Range Interpretation Comments POC-GLUCOSE METER 230 mg/dL 70-110 H TESTED AT [facility] 6720 ([facility]) (test code = [facility] Hugh [place] 810738) [address] RAD, ANKLE, MIN 3 VIEWS, [id number] 12:27:00Reason for exam:->pain edema following fallFINAL REPORT Clinical history: pain edema following fall TECHNIQUE: 3 views of the right ankle COMPARISON: None IMPRESSION: There is soft tissue swelling over the medial malleolus.There is no evidence of fracture or dislocation. There are dorsal and plantar calcaneal spurs. Thereare vascular calcifications. Signed: Car Heller MDReport Verified Date/Time: 02/04/2017 12:27:23 [facility] [place] [facility] Room Electronically signed by: CAR HELLER M.D.on 02/04/2017 12:27 PMPOCT- GLUCOSE [id number] 11:55:00 Test Item Value Reference Range Interpretation Comments POC-GLUCOSE METER 204 mg/dL 70-110 H TESTED AT [facility] 67[facility] (test code = [facility] 1538) 08186 POCT-GLUCOSE [id number] 08:00:00 Test Item Value Reference Range Interpretation Comments POC-GLUCOSE METER 217 mg/dL 70-110 H TESTED AT [place] [address] ([facility] (test code = [facility] 1538) 41970 [id number] 07:14:00 Test Item Value Reference Range Interpretation Comments PHOSPHORUS (BEAKER) (test code = 3.8 mg/dL 2.3-4.7 604) [id number] 07:14:00 Test Item Value Reference Range Interpretation Comments MAGNESIUM (BEAKER) (test code = 1.7 mg/dL 1.6-2.6 627) BASIC METABOLIC [id number] 07:14:00 Test Item Value Reference Range Interpretation [...] NOT APPLICABLE FOR DIALYSIS PATIEN TS. POCT-GLUCOSE [id number] 22:31:00 Test Item Value Reference Range Interpretation Comments POC-GLUCOSE METER 288 mg/dL 70-110 H TESTED AT [place] [address] ([facility]) (test code = TUTU Reese [place] 1538) [id number] POCT-GLUCOSE [id number] 17:03:00 Test Item Value Reference Range Interpretation Comments POC-GLUCOSE METER 268 mg/dL 70-110 H TESTED AT [place] [address] ([facility]) (test code = TUTU Reese [place] 1538) [id number] POCT-GLUCOSE [id number] 12:31:00 Test Item Value Reference Range Interpretation Comments POC-GLUCOSE METER 214 mg/dL 70-110 H TESTED AT [place] [address] ([facility]) (test code = TUTU Reese [facility] 1538) [address] CT, BRAIN, WITHOUT [id number] 09:22:00FINAL REPORT CT head without contrast INDICATION: [...] MDReport Verified Date/Time: 02/03/2017 09:22:48 Reading Location: [address] Neuro Reading Room POCT-GLUCOSE [id number] 07:19:00 Test Item Value Reference Range Interpretation Comments POC-GLUCOSE METER 218 mg/dL 70-110 H TESTED AT [facility] 67 (BEAKER) (test code = TUTU [place] 1538) [id number] 06:12:00 Test Item Value Reference Range Interpretation Comments PHOSPHORUS (BEAKER) (test code = 3.1 mg/dL 2.3-4.7 604) [id number] 06:12:00 Test Item Value Reference Range Interpretation Comments MAGNESIUM (BEAKER) (test code = 1.6 mg/dL 1.6-2.6 627) BASIC METABOLIC [id number] 06:12:00 Test Item Value Reference Range Interpretation [...] NOT APPLICABLE FOR DIALYSIS PATIEN TS. POCT-GLUCOSE [id number] 23:10:00 Test Item Value Reference Range Interpretation Comments POC-GLUCOSE METER 239 mg/dL 70-110 H TESTED AT [facility] 6720 (BEAKER) (test code = TUTU [place] 1538) [id number] POCT-GLUCOSE [id number] 17:20:00 Test Item Value Reference Range Interpretation Comments POC-GLUCOSE METER 291 mg/dL 70-110 H TESTED AT [place] [address] ([facility]) (test code = TUTU [place] 1538) [id number] POCT-GLUCOSE [id number] 12:39:00 Test Item Value Reference Range Interpretation Comments POC-GLUCOSE METER 274 mg/dL 70-110 H TESTED AT [place] [address] (DAO) (test code = [place]U [place] 1538) [id number] POCT-GLUCOSE [id number] 11:35:00 Test Item Value Reference Range Interpretation Comments POC-GLUCOSE METER 289 mg/dL 70-110 H TESTED AT [place] [address] ([facility]) (test code = TUTU [place] 1538) [address] POCT-GLUCOSE [id number] 11:07:00 Test Item Value Reference Range Interpretation Comments POC-GLUCOSE METER 271 mg/dL 70-110 H TESTED AT [place] [address] ([facility]) (test code = TUTU [place] 1538) [id number] CT, BRAIN, WITHOUT [id number] 10:51:00FINAL REPORT CT head without contrast INDICATION: [...] appearing findings as discussed above. Signed: Charanjit Ibarraort Verified Date/Time: 02/02/2017 10:51:15 Reading Location: [facility] C013V Neuro Reading Room [id number] 06:07:00 Test Item Value Reference Range Interpretation Comments PHOSPHORUS (BEAKER) (test code = 3.2 mg/dL 2.3-4.7 604) [id number] 06:07:00 Test Item Value Reference Range Interpretation Comments MAGNESIUM (BEAKER) (test code = 2.4 mg/dL 1.6-2.6 627) BASIC METABOLIC [id number] 06:07:00 Test Item Value Reference Range Interpretation [...] NOT APPLICABLE FOR DIALYSIS PATIEN TS. POCT-GLUCOSE [id number] 21:34:00 Test Item Value Reference Range Interpretation Comments POC-GLUCOSE METER 331 mg/dL 70-110 H TESTED AT [facility] 6720 (BEAKER) (test code = TUTU [place] 1538) [id number] HEMOGLOBIN [id number] 14:53:00 Test Item Value Reference Range Interpretation Comments HEMOGLOBIN A1C (BEAKER) (test code = 14.8 % 4.3-6.1 H 368) POCT-GLUCOSE [id number] 11:57:00 Test Item Value Reference Range Interpretation Comments POC-GLUCOSE METER 232 mg/dL 70-110 H TESTED AT [facility] 6720 (BEAKER) (test code = TUTU [place] 1538) [id number] 11:44:00 Test Item Value Reference Range Interpretation Comments PHOSPHORUS (BEAKER) (test code = 3.0 mg/dL 2.3-4.7 604) [id number] 11:44:00 Test Item Value Reference Range Interpretation Comments MAGNESIUM (BEAKER) (test code = 1.3 mg/dL 1.6-2.6 L 627) BASIC METABOLIC [id number] 11:44:00 Test Item Value Reference Range Interpretation [...] PATIEN TS. CBC W/PLT COUNT & AUTO [id number] 11:18:00 Test Item Value Reference Range Interpretation [...] PERCENT (BEAKER) (test code = 2801) POCT-GLUCOSE [id number] 08:37:00 Test Item Value Reference Range Interpretation Comments POC-GLUCOSE METER 269 mg/dL 70-110 H TESTED AT [facility] 6720 (BEAKER) (test code = TUTU [place] 1538) [address] LIPID [id number] 03:12:00 Test Item Value Reference Range Interpretation Comments TRIGLYCERIDES (BEAKER) (test code = 129 mg/dL 540) CHOLESTEROL (BEAKER) (test code = 185 mg/dL 631) HDL CHOLESTEROL (DAO) (test code 39 mg/dL = 976) LDL CHOLESTEROL CALCULATED (DAO) 120 mg/dL (test code = 633) Triglyceride [...] (test code = Nonreactive Nonreactive 420) POCT-GLUCOSE [id number] 01:15:00 Test Item Value Reference Range Interpretation Comments POC-GLUCOSE METER 297 mg/dL 70-110 H TESTED AT [facility] 67 (DAO) (test code = TUTU Reese [place] [address]) [address] POCT-GLUCOSE [id number] 22:01:00 Test Item Value Reference Range Interpretation Comments POC-GLUCOSE METER 354 mg/dL 70-110 H Notified R Becca SHOEMAKER/TESTED (DAO) (test code = AT [facility] [address] [place] [address]) [facility] 7703 0 MR, BRAIN, WITHOUT [id number] 20:46:00Reason for exam:->Ischemic Stroke EvaluationFINAL REPORT MRI [...] (neurology) at 8:45 PM Signed: Charanjit Ibarra MDReport Verified Date/Time: 01/31/2017 20:46:20 Reading Location: [facility] Radiology Reading Room MR, MRA, BRAIN, WITHOUT [id number] 20:36:00 Reason for exam:->Ischemic Stroke EvaluationFINAL REPORT MRA head and neck without contrast INDICATION: Stroke TECHNIQUE: 2-D and 3-D [id number] MRA images of the intra- and extracranial [...] left vertebral artery is not imaged. 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 There are suspected severe left supraclinoid ICA stenosis with signal loss. There are mild stenoses of the left proximal MCA and TRUDY origins. No other flow limiting proximal cabazon of Sood vessels stenosis is seen. Motion [...] severe left supraclinoid ICA and proximal right WOOL SHEARER stenoses. 4. No hemodynamically significant cervical carotid artery stenosis by NASCET criteria. Signed: Charanjit Ibarra MDRmichiort Verified Date/Time: 01/31/2017 20:36:02 Reading Location: [facility] Radiology ReadingRoom MR, MRA, NECK, WITHOUT IV [id number] 20:36:00Reason for exam:->Ischemic Stroke EvaluationFINAL REPORT MRA head and neck without contrast INDICATION: Stroke TECHNIQUE: 2-D and 3-D [id number] MRA images of the intra- and extracranial [...] left vertebral artery is not imaged. 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 There are suspected severe left supraclinoid ICA stenosis with signal loss. There are mild stenoses of the left proximal MCA and TRUDY or igins. No other flow limiting proximal cabazon of Sood vessels stenosis is seen. Motion [...] severe left supraclinoid ICA and proximal right WOOL SHEARER stenoses. 4. No hemodynamically significant cervical carotid artery stenosis by NASCET criteria. Signed: Charanjit Ibarra MDReport Verified Date/Time: 01/31/2017 20:36:02 Reading Location: [facility] ReadingRoom VITAMIN B12 AND [id number] 13:11:00 Test Item Value Reference Range Interpretation Comments VITAMIN B12 (BEAKER) (test code = 551 pg/mL 213-816 774) FOLATE (BEAKER) (test code = 362) 15.7 ng/mL >=7.0 [id number] 10:22:00 Test Item Value Reference Range Interpretation Comments HOMOCYSTEINE (BEAKER) (test code = 7.0 umol/L 5.1-15.4 642) POCT-GLUCOSE [id number] 08:22:00 Test Item Value Reference Range Interpretation Comments POC-GLUCOSE METER 200 mg/dL 70-110 H TESTED AT [facility] 6720 (BEAKER) (test code = TUTU [place]ese [place] 1538) [address] T4, [id number] 07:04:00 Test Item Value Reference Range Interpretation Comments FREE T4 (BEAKER) (test code = 655) 1.28 ng/dL 0.70-1.48 TSH/FREE T4 IF [id number] 06:34:00 Test Item Value Reference Range Interpretation Comments THYROID STIMULATING HORMONE 0.22 uIU/mL 0.35-4.94 L (BEAKER) (test code = 772) BASIC METABOLIC [id number] 05:53:00 Test Item Value Reference Range Interpretation [...] PATIEN TS. CBC W/PLT COUNT & AUTO [id number] 05:31:00 Test Item Value Reference Range Interpretation [...]
[2022-06-22] MEDS ORDERED: D10W 250 ML IV ONE ×2 (11:29→12:45)
[2022-06-22 12:01] LABS: Absolute Lymphocytes (CBC) 1.3 K/uL (0.7-4.9); Hematocrit 40.6 % (36.0-45.0); MCV 100.7 fL (80-100); MPV 7.3 fL (7.6-11.3); RBC Red Blood Cell Count 4.03 M/uL (3.86-4.86)
[2022-06-22 12:04] LABS: Protime INR 1.4
[2022-06-22 12:32] LABS: Albumin 2.8 g/dL (3.4-5.0); Bilirubin Direct 0.2 mg/dL (0-0.2); Bilirubin Indirect, Calculated 0.1 (0.2-0.8); Bilirubin Total 0.3 mg/dL (0.2-1.0); Magnesium 2.2 mg/dL (1.6-2.4); Protein, Total 7.8 g/dL (6.4-8.2); Troponin High Sensitivity 48.1 pg/mL (<58.9)
--- NOTE | 2022-06-22 13:55 | EDPHYS ---
Physician Documentation [facility] Name: Rebecca Hazel Age: 81 yrs Sex: Female : 1940 Arrival Date: 06/22/2022 Time: 11:12 Bed 18 Private MD: ED Physician Misbah Forman HPI: 06/22 11:25 This 81 yrs old Female presents to ER via Unassigned with complaints of Hypoglycemia. cp 11:25 The patient or guardian reports hypoglycemia, that was potentially precipitated by no cp particular event, with the patient's symptoms witnessed by staff at dialysis clinic. Associated signs and symptoms: Pertinent positives: confusion. Current symptoms: In the emergency department the patient's symptoms are unchanged from the initial presentation. 11:25 Patient presents to ED via EMS after being observed to be confused while at dialysis cp clinic. Dialysis was not done and patient found to have blood glucose level in the 20's. Historical: - Allergies: 11:15 No Known Allergies; eh3 - PMHx: 11:15 Diabetes - IDDM; Hypertension; Hypothyroidism; stroke with right sided weakness; TIA; eh3 - PSHx: 11:15 pacemaker; eh3 - Immunization history:: Adult Immunizations up to date. - Social history:: Smoking status: unknown. ROS: 11:30 Constitutional: Negative for body aches, chills, fever, poor PO intake. cp 11:30 Eyes: Negative for injury, pain, redness, and discharge. cp 11:30 ENT: Negative for drainage from ear(s), ear pain, sore throat, difficulty swallowing, difficulty handling secretions. 11:30 Cardiovascular: Negative for chest pain, palpitations. 11:30 Respiratory: Negative for cough, shortness of breath, wheezing. 11:30 Abdomen/GI: Positive for nausea, vomiting, Negative for abdominal pain, diarrhea, constipation. 11:30 Neuro: Positive for altered mental status, weakness, Negative for headache, loss of consciousness. 11:30 All other systems are negative. Exam: 11:35 Constitutional: The patient appears in no acute distress, alert, awake, cp non-diaphoretic, non-toxic, well developed, well nourished, obese. 11:35 Head/Face: Normocephalic, atraumatic. cp 11:35 Eyes: Periorbital structures: appear normal, Pupils: equal, round, and reactive to light and accomodation, Extraocular movements: intact throughout, Sclera: no appreciated abnormality, Lids and lashes: appear normal, bilaterally. 11:35 ENT: External ear(s): are unremarkable, Nose: is normal, Mouth: Lips: moist, Oral mucosa: pink and intact, moist, Posterior pharynx: is normal, airway is patent, no erythema, no exudate. 11:35 Neck: ROM/movement: is normal, is supple, without pain, no range of motions limitations, no meningismus, no nuchal rigidity. 11:35 Chest/axilla: Inspection: normal. 11:35 Cardiovascular: Rate: normal, Rhythm: regular, Edema: ankle edema, that is very mild, JVD: is not appreciated. 11:35 Respiratory: the patient does not display signs of respiratory distress, Respirations: normal, no use of accessory muscles, no retractions, labored breathing, is not present, Breath sounds: are clear throughout, no decreased breath sounds, no stridor, no wheezing. 11:35 Abdomen/GI: Inspection: abdomen appears normal, Palpation: abdomen is soft and non-tender, in all quadrants. 11:35 Back: pain, is absent, ROM is normal. 11:35 Skin: 11:35 Neuro: Orientation: to person, Mentation: able to follow commands, slow to respond. 14:03 ECG was reviewed by the Attending Physician. cp Vital Signs: 11:15 BP 145 / 94; Pulse 61; Resp 15; Temp 98.2(O); Pulse Ox 91% on R/A; Weight 86 kg; Height eh3 5 ft. 6 in. ; Pain 8/10; 11:45 BP 133 / 64; Pulse 59; Resp 15; Pulse Ox 100% on R/A; eh3 12:15 BP 115 / 89; Pulse 57; Resp 16; Pulse Ox 96% on R/A; eh3 12:45 BP 90 / 47; Pulse 60; Resp 19; Pulse Ox 95% on R/A; eh3 13:15 BP 94 / 74; Pulse 61; Resp 17; Pulse Ox 95% on R/A; eh3 13:45 BP 116 / 42; Pulse 57; Resp 19; Pulse Ox 100% on R/A; eh3 14:15 BP 124 / 72; Pulse 56; Resp 18; Pulse Ox 98% on R/A; eh3 14:45 BP 105 / 73; Pulse 55; Resp 16; Pulse Ox 100% on R/A; eh3 15:15 BP 105 / 46; Pulse 55; Resp 14; Pulse Ox 100% on R/A; eh3 15:45 BP 95 / 56; Pulse 54; Resp 16; Pulse Ox 100% on R/A; eh3 11:15 Body Mass Index 30.60 (86.00 kg, 167.64 cm) eh3 11:15 Pain Scale: Adult 3 MDM: 11:21 Patient medically screened. bs3 06/22 11:27 Order name: Basic Metabolic Panel; Complete Time: 12:37 cp 06/22 12:37 Interpretation: Normal except: GLUC 35; NA 131; BUN 44; CRE 5.14; GFR 8. cp 06/22 11:27 Order name: CBC with Diff; Complete Time: 12:20 cp 06/22 12:20 Interpretation: Normal except: WBC 13.00; MCV 100.7; MCHC 31.8; MPV 7.3; PAVAN% 77.9; cp LYM% 10.0; NEUT A 10.1. 06/22 11:27 Order name: LFT's; Complete Time: 12:37 cp 06/22 12:37 Interpretation: Normal except: IBILI, CALC 0.1; ALB 2.8; GLOB 5.0; A/G 0.6. cp 06/22 11:27 Order name: Magnesium; Complete Time: 12:37 cp 06/22 11:27 Order name: NT PRO-BNP; Complete Time: 12:37 cp 06/22 12:38 Interpretation: NT PRO-BNP 7103; Reviewed. cp 06/22 11:27 Order name: PT-INR; Complete Time: 12:20 cp 06/22 11:27 Order name: Troponin HS; Complete Time: 12:37 cp 06/22 12:39 Interpretation: Reviewed. cp 06/22 11:27 Order name: Lactate w/ 2H reflex if indic.; Complete Time: 12:37 cp 06/22 11:27 Order name: Blood Culture Adult (2) cp 06/22 11:33 Order name: Glucose, Ancillary Testing; Complete Time: 12:20 EDMS 06/22 12:48 Order name: Glucose, Ancillary Testing; Complete Time: 13:12 EDMS 06/22 13:12 Interpretation: Reviewed. cp 06/22 13:49 Order name: Glucose, Ancillary Testing; Complete Time: 14:44 EDMS 06/22 15:12 Order name: CBC with Automated Diff EDMS 06/22 15:12 Order name: CBC with Automated Diff EDMS 06/22 15:12 Order name: Comprehensive Metabolic Panel EDRI 06/22 15:12 Order name: Comprehensive Metabolic Panel EDRI 06/22 15:12 Order name: Magnesium EDRI 06/22 15:12 Order name: Magnesium EDRI 06/22 14:46 Order name: XRAY Foot LEFT 3 View cp 06/22 11:27 Order name: EKG; Complete Time: 11:27 cp 06/22 15:10 Order name: CONS Physician Consult EDRI 06/22 15:12 Order name: Renal EDRI 06/22 11:27 Order name: Cardiac monitoring; Complete Time: 12:12 cp 06/22 11:27 Order name: EKG - Nurse/Tech; Complete Time: 13:58 cp 06/22 11:27 Order name: IV Saline Lock; Complete Time: 12:12 cp 06/22 11:27 Order name: Labs collected and sent; Complete Time: 12:12 cp 06/22 11:27 Order name: O2 Per Protocol; Complete Time: 12:12 cp 06/22 11:27 Order name: O2 Sat Monitoring; Complete Time: 12:12 06/22 12:30 Order name: Accucheck Blood Glucose; Complete Time: 12:42 cp EC:03 Rate is 57 beats/min. Rhythm is regular. MI interval is prolonged at 210 msec. QRS cp interval is prolonged at 160 msec. QT interval is normal. T waves are Inverted in lead aVR. Interpreted by me. Reviewed by me. Administered Medications: 11:35 Drug: D10 in Water IVP 250 ml Route: IVP; Site: left upper arm; eh3 12:00 Follow up: Response: Blood sugar is elevated eh3 12:47 Drug: D10 in Water IVP 250 ml Route: IVP; Site: left upper arm; hb 13:15 Follow up: Response: Blood sugar is elevated eh3 15:15 Drug: Amoxicillin-Clavulanate PO 875 mg Route: PO; eh3 16:00 Follow up: Response: No adverse reaction eh3 Disposition Summary: 06/22/22 13:54 Hospitalization Ordered Provider: Kem Mack cp Condition: Stable cp Problem: new cp Symptoms: have improved cp Bed/Room Type: Standard cp Hospitalization Status: Observation(06/22/22 13:59) cp Location: Telemetry/MedSurg (observation)(06/22/22 13:59) cp Room Assignment: 405(06/22/22 15:52) ja1 Diagnosis - Drug-induced hypoglycemia without coma cp Forms: - Medication Reconciliation Form cp - SBAR form cp Signatures: Dispatcher [employer] EDScottie Cerna PA PA cp Viji Llanos RN RN Tee Camara RN RN ja1 Hattie Mcmahon RN RN eh3 Misbah Forman MD MD bs3 Corrections: (The following items were deleted from the chart) 13:59 13:54 Inpatient Admission cp cp 13:59 13:54 Telemetry/MedSurg (Inpatient) cp cp 13:59 13:54 cp cp 15:52 13:59 cp ja1
--- NOTE | 2022-06-22 13:55 | ER ---
Nurse's Notes [facility] Name: Rebecca Hazel Age: 81 yrs Sex: Female : 1940 Arrival Date: 06/22/2022 Time: 11:12 Bed 18 Private MD: Diagnosis: Drug-induced hypoglycemia without coma Presentation: 06/22 11:15 Chief complaint: EMS states: toned out to dialysis center for reported BGL 38, dialysis eh3 center gave oral glucose, EMS reports BGL 65 and stable vital signs, pt has broken right humerus from previous fall, and skin breakdown at sacral/rectum area. Coronavirus screen: Vaccine status: Patient reports receiving the 2nd dose of the covid vaccine. Ebola Screen: No symptoms or risks identified at this time. Initial Sepsis Screen: Does the patient meet any 2 criteria? No. Patient's initial sepsis screen is negative. Does the patient have a suspected source of infection? Yes: Skin breakdown/wound. Risk Assessment: Do you want to hurt yourself or someone else? Patient reports no desire to harm self or others. Onset of symptoms was June 22, 2022. 11:15 Method Of Arrival: EMS: [facility] 11:15 Acuity: DENNIS 2 eh3 Triage Assessment: 11:15 General: Appears in no apparent distress. comfortable, Behavior is calm, cooperative, eh3 appropriate for age. Pain: Complains of pain in buttocks. EENT: No signs and/or symptoms were reported regarding the EENT system. Neuro: Level of Consciousness is awake, alert, obeys commands, Oriented to person, place, time, situation. Cardiovascular: Capillary refill < 3 seconds Patient's skin is warm and dry. Respiratory: Airway is patent Respiratory effort is even, unlabored, Respiratory pattern is regular, symmetrical. GI: Abdomen is round non-distended. : No signs and/or symptoms were reported regarding the genitourinary system. Derm: Skin is fragile, Skin is pink, warm \T\ dry. Musculoskeletal: No signs and/or symptoms reported regarding the musculoskeletal system. Historical: - Allergies: 11:15 No Known Allergies; eh3 - PMHx: :15 Diabetes - IDDM; Hypertension; Hypothyroidism; stroke with right sided weakness; TIA; eh3 - PSHx: :15 pacemaker; eh3 - Immunization history:: Adult Immunizations up to date. - Social history:: Smoking status: unknown. Screenin:15 [facility] ED Fall Risk Assessment (Adult) Score/Fall Risk Level 0 - 2 = Low Risk. Abuse 3 screen: Denies threats or abuse. Denies injuries from another. Nutritional screening: No deficits noted. Tuberculosis screening: No symptoms or risk factors identified. Assessment: 11:15 Reassessment: No changes from previously documented assessment. See triage assessment. [facility] 12:15 Reassessment: Patient appears in no apparent distress at this time. Patient and/or 3 family updated on plan of care and expected duration. Pain level reassessed. Patient is alert, oriented x 3, equal unlabored respirations, skin warm/dry/pink. 13:15 Reassessment: Patient appears in no apparent distress at this time. Patient and/or 3 family updated on plan of care and expected duration. Pain level reassessed. Patient is alert, oriented x 3, equal unlabored respirations, skin warm/dry/pink. 14:15 Reassessment: Patient appears in no apparent distress at this time. Patient and/or 3 family updated on plan of care and expected duration. Pain level reassessed. Patient is alert, oriented x 3, equal unlabored respirations, skin warm/dry/pink. 15:15 Reassessment: Patient appears in no apparent distress at this time. Patient and/or 3 family updated on plan of care and expected duration. Pain level reassessed. Patient is alert, oriented x 3, equal unlabored respirations, skin warm/dry/pink. Vital Signs: 11:15 BP 145 / 94; Pulse 61; Resp 15; Temp 98.2(O); Pulse Ox 91% on R/A; Weight 86 kg; Height eh3 5 ft. 6 in. ; Pain 8/10; 11:45 BP 133 / 64; Pulse 59; Resp 15; Pulse Ox 100% on R/A; eh3 12:15 BP 115 / 89; Pulse 57; Resp 16; Pulse Ox 96% on R/A; eh3 12:45 BP 90 / 47; Pulse 60; Resp 19; Pulse Ox 95% on R/A; eh3 13:15 BP 94 / 74; Pulse 61; Resp 17; Pulse Ox 95% on R/A; eh3 13:45 BP 116 / 42; Pulse 57; Resp 19; Pulse Ox 100% on R/A; eh3 14:15 BP 124 / 72; Pulse 56; Resp 18; Pulse Ox 98% on R/A; eh3 14:45 BP 105 / 73; Pulse 55; Resp 16; Pulse Ox 100% on R/A; eh3 15:15 BP 105 / 46; Pulse 55; Resp 14; Pulse Ox 100% on R/A; eh3 15:45 BP 95 / 56; Pulse 54; Resp 16; Pulse Ox 100% on R/A; eh3 11:15 Body Mass Index 30.60 (86.00 kg, 167.64 cm) eh3 11:15 Pain Scale: Adult 3 ED Course: 11:14 Patient arrived in ED. mm9 11:15 Arm band placed on. eh3 11:15 Patient has correct armband on for positive identification. Bed in low position. Call 3 light in reach. Side rails up X2. Client placed on continuous cardiac and pulse oximetry monitoring. NIBP monitoring applied. 11:21 Misbah Forman MD is Attending Physician. bs3 11:25 Scottie Rees PA is PHCP. cp 11:29 Inserted saline lock: 22 gauge in left upper arm, using aseptic technique. Blood hb collected. 11:58 Hattie Mcmahon, THAIS is Primary Nurse. eh3 12:09 Triage completed. eh3 12:11 Repositioned patient. onto right side. eh3 13:53 Kem Mack MD is Hospitalizing Provider. cp 15:03 XRAY Foot LEFT 3 View In Process Unspecified. EDMS 16:09 No provider procedures requiring assistance completed. Patient admitted, IV remains in eh3 place. Administered Medications: 11:35 Drug: D10 in Water IVP 250 ml Route: IVP; Site: left upper arm; eh3 12:00 Follow up: Response: Blood sugar is elevated eh3 12:47 Drug: D10 in Water IVP 250 ml Route: IVP; Site: left upper arm; hb 13:15 Follow up: Response: Blood sugar is elevated eh3 15:15 Drug: Amoxicillin-Clavulanate PO 875 mg Route: PO; eh3 16:00 Follow up: Response: No adverse reaction eh3 Medication: 16:09 VIS not applicable for this client. eh3 Outcome: 13:54 Decision to Hospitalize by Provider. cp 16:09 Admitted to accompanied by nurse, via stretcher, Report called to 4th floor. Pt going eh3 to dialysis first and then to room 405 16:09 Condition: stable 16:09 Instructed on the need for admit. 16:11 Patient left the ED. eh3 Signatures: Dispatcher [employer] EDMS Scottie Rees PA PA cp Baxter, Heather, Hattie Thompson RN, RN RN eh3 Misbah Forman MD MD bs3 Irina Carson 9
--- NOTE | 2022-06-22 14:08 | P.HP ---
Certification for Inpatient Patient admitted to: Observation With expected LOS: <2 Midnights Practitioner: I am a practitioner with admitting privileges, knowledge of patient current condition, hospital course, and medical plan of care. Services: Services provided to patient in accordance with Admission requirements found in Title 42 Section 412.3 of the Code of Federal Regulations Patient History Date of Service: 06/22/22 Reason for admission: Hypoglycemia History of Present Illness: 81 yo F, PMH: CVA (January 2017), severe pulmonary hypertension, HTN, HLD, ESRD, IDDM2, Hypothyroidism, Afib Presented to ED due to hypoglycemia. She was at dialysis center when she was not ed to be "talking crazy" (by her own account). Glucose was checked and in the 20s. She states she hate half of her dinner last night and breakfast today in order to minimize chance of bowel movement and having to sit in her own BM for a while before getting help. She continued on her usual insulin despite lowering her oral intake across 2 meals. She otherwise stated everything else was ordinary, however on further questioning, she reported yesterday discovering an injury to her left 1st toe. She does not know how it happened, denied any pain. Denies fever/chills/diarrhea. no recent illness JShe did state ~3-4 days ago had an episode of vomiting, resolved. Her POC glucose was 29 on arrival, and has since gone up to 125 on admission. Reproductive Endocrinologist would like to bring patient in to hospital for dialysis aas she would be unable to dialyze until Friday. Allergies No Known Allergies Allergy (Verified 08/27/19 22:08) Home Medications: Atorvastatin Calcium [Lipitor] 1 tab PO BEDTIME 05/08/17 Duloxetine [Cymbalta *] 1 cap PO DAILY 05/08/17 Famotidine [Pepcid*] 1 tab PO BEDTIME 05/08/17 Gabapentin 200 mg PO BEDTIME 08/28/19 Hum Insulin NPH/Reg Insulin Hm [Humulin 70-30 Vial] 25 unit SQ BID 08/28/19 Acetaminophen with Codeine [Acetaminophen-Cod #3 Tablet] 1 tab PO PRN PRN 03/19/22 Metoprolol Succinate [Toprol Xl*] 25 mg PO DAILY 03/19/22 Amiodarone HCl [Cordarone*] 400 mg PO BID tab 03/31/22 Apixaban [Eliquis *] 2.5 mg PO BID 03/31/22 Clopidogrel Bisulfate [Plavix*] 75 mg PO DAILY 03/31/22 Docusate [Colace Cap*] 100 mg PO BID cap 03/31/22 Epoetin [Retacrit] 10,000 unit IV EVERY HD vial 03/31/22 Polyethyl Gly 3350 [Glycolax*] 17 gm PO DAILY udbot 03/31/22 Ceftriaxone [Rocephin*] 1,000 mg IV DAILY 2 Days #2 05/10/22 Levothyroxine [Synthroid*] 0.1 mg PO DAILYAC tab 05/10/22 Micafungin Sodium [Micafungin] 100 mg IV DAILY 2 Days #2 05/10/22 - Past Medical/Surgical History Diabetic: Yes -: 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 -: IDDiabetic -: HTN -: foot infection 04/2017 -: NEUROPATHY -: HLD -: HYPOTHYROIDISM -: has medtronic insertable compliance monitor -: chronic osteomyelitis with non-healing ulcer right great toe s/p fall(2017) -: afib vs supraventricular tachycardia -: thyroidectomy -: cataract sx -: hysterectomy Psychosocial/ Personal History: [facility] - Family History Mother -: Hypertension Father -: Diabetes - Social History Smoking Status: Unknown if ever smoked Alcohol use: No CD- Drugs: No Caffeine use: Yes Review of Systems 10-point ROS is otherwise unremarkable Physical Examination - Physical Exam General: Alert, In no apparent distress, Oriented x3 HEENT: Atraumatic, Mucous membr. moist/pink Neck: Supple, 2+ carotid pulse no bruit Respiratory: Clear to auscultation bilaterally, Normal air movement Cardiovascular: No edema, Normal pulses, Regular rate/rhythm Capillary refill: <2 Seconds Gastrointestinal: Normal bowel sounds, Soft and benign, Non-distended, No tenderness Musculoskeletal: No clubbing, No swelling Integumentary: Pressure ulcer (sacrum), Other (Left 1st toe, erythema, mild hematoma under nail, no purulent drainage, discoloration of nail (see picture)) Neurological: Normal speech, Normal tone, Normal affect - Studies Laboratory Data (last 24 hrs) 06/22/22 11:29: PT 15.4 H, INR 1.40 06/22/22 11:29: WBC 13.00 H, Hgb 12.9, Hct 40.6, Plt Count 311 06/22/22 11:29: Sodium 131 L, Potassium 4.0, BUN 44 H, Creatinine 5.14 H, Glucose 35 L*, Magnesium 2.2, Total Bilirubin 0.3, AST 20, ALT 17, Alkaline Phosphatase 97 Imagings Data: Assessment and Plan Discharge Plan: Home Plan to discharge in: 48 Hours - Advance Directives Does patient have a Living Will: No Does patient have a Durable POA for Healthcare: No - Code Status/Comfort Care Code Status Assessed: Yes Code Status: Full Code Physician Review Additional Text: Problem List hypoglycemia, in IDDM2 with neuropathy L 1st toe injury ESRD on HD Sacral decubitus ulcer HTN HLD severe pulm htn moderate AoS Paroxysmal afib Hypothyroidism bedbound #Hypoglycemia in IDDM2 with neuropathy secondary to decreased PO intake while not adjusting insulin regimen hold insulin qh1 checks for now s/p d10x2, tolerating PO in ED, glc improving restart insulin as appropriate #L 1st toe injury pt unaware of mechanism of injury no definitive known time of onset, but diagnosed in last 1-2 days, states looks worse today x-ray pending in ED Dr. Vieira, general surgery consulted ESRD on HD nephrology consulted renally dose meds Paroxysmal afib continue eliquis, amio hold metoprolol, BP soft in ED HTN HLD Severe pulm HTN, mod AoS Hypothyroidism continue home meds Code: full Dispo: home, ~1-2 days Time Spent Managing Pts Care (In Minutes): 70
[2022-06-22] MEDS ORDERED: ACETAMINOPHEN 500 MG TAB PO PRN (15:09)
[2022-06-22] MEDS ORDERED: ONDANSETRON 4 MG/2 ML VIAL IV PRN (15:09)
[2022-06-22] MEDS ORDERED: AMOX/K CLAV 875 MG TAB ONE (15:23)
--- NOTE | 2022-06-22 15:52 | RAD REPORT ---
EXAM DESCRIPTION: RAD - Foot Left 3 View - 06/22/2022 3:01 pm CLINICAL HISTORY: right great toe pain COMPARISON: Foot Left 3 View dated 03/19/2022; Foot Left 2 View dated 06/13/2017 FINDINGS/IMPRESSION: No acute fracture. No malalignment. Calcaneal spurring. Peripheral vascular dragan cifications. Midfoot degenerative changes.
--- NOTE | 2022-06-22 16:13 | P.CNS ---
Date of Consult: 06/22/22 PC: I was asked to see this 81-year-old female in regards to her left toe and a sacral decubitus HPC: Patient apparently was brought into the emergency room after it was noted she had a alteration in mentation. She was found to have a low blood sugar and that has since been corrected. On physical examination it was also noted that the patient had an injury to her left great toe. She also has a chronic sacral decubitus ulcer. PSHx: Insertion of pacemaker in the past. PMHx: Diabetes, end-stage renal disease on dialysis which she missed today. Social Hx: No known allergies Sys R: Patient is currently in a rehab. States that she feels she is getting weaker. No other specific complaints. O/E: Awake alert vital signs are stable HEENT: Not jaundiced Chest: Chest movement equal bilaterally Abd: Soft nontender Dragoon: Over the sacrum the patient has a decubitus ulcer measuring approximately 3 cm in diameter. It has a rather deep base with some necrotic material. On inspection of her left great toe wound can see that she has had a blunt injury to it. There is some blood around the margin of the nail with the skin of the great toe. Nothing actively bleeding. There is quite bruised but no necrotic tissue is noted, no true infection seen. Data: No fracture seen on x-ray of her foot Impression: Patient has a chronic decubitus ulcer, as well as a injured left toe that does not require surgical intervention at this time. Plan: Recommend continuing medical treatment of her sacrum, and her great toe. Santyl to the sacral wound with DuoDERM dressings. To the great toe just a Kerlix roll and extra padding until that wound demarcates. When the patient is discharged, she is welcome to be seen at the wound care center, but her rehab may provide in-house wound care facilities.
[2022-06-22] MEDS: INSULIN -REGULAR HUMAN 50 UNIT/0.5 ML ML SQ SCH ×2 (16:30→21:00)
[2022-06-22] MEDS: EPOETIN ALFA 10,000 UNIT/ML VIAL IV SCH (18:15)
--- NOTE | 2022-06-22 20:00 | CON ---
Date of Consultation: 06/22/2022 Chief Complaint: Acute kidney injury on advanced chronic kidney disease, end-stage renal disease. History Of Present Illness: The patient was referred from dialysis to emergency room for severe hypo glycemia and she did not receive dialysis in outpatient dialysis center. She was evaluated in the em ergency room and was found to have hypotension. She has multiple medical problems. She is an 81-yea r-old woman with past medical history of CVA in January 2017, severe pulmonary hypertension, obesity , hypertension, hyperlipidemia, insulin-dependent diabetes mellitus type 2, hypothyroidism, and atria l fibrillation. Blood glucose in the emergency room was in 20s. She received D10 for treatment of s evere hypoglycemia. She is admitted to the hospital for possible sepsis. She was found to have diab etic foot infection and Surgical Team is evaluating the patient. She denies fever, chills, or diarrh ea. She said that she decreased her p.o. intake because she wanted to lose weight, although she took her usual dose of insulin this morning. Review of Systems: General: The patient denies fever or chills. Eyes: Denies new vision changes. Ears, Nose, Mouth, And Throat: Denies sore throat or earache. Respiratory: Denies PND or orthopnea. She has chronic dyspnea on exertion. Cardiovascular: Denies syncope, palpitations, or chest pain. GI: Denies nausea, vomiting, diarrhea, or constipation. : Denies dysuria, hematuria, or incomplete voiding. All other systems reviewed and all are negative. 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 The patient is [facility] resident. Family History: Mother with hypertension. Father with diabetes. Social History: Denies tobacco or alcohol. Denies recreational drugs. Physical Examination: General: The patient is alert, oriented, although she said that she was somewhat confused when blood glucose dropped. HEENT: Atraumatic, normocephalic. Neck: Supple. No JVD. No bruits. Respiratory: Normal respiratory effort. Heart: S1, S2. Abdomen: Obese, soft, nontender. No rebound. No guarding. Extremities: Some edema present in both legs. Pressure ulcer on sacrum. Left first toe erythema, m ild hematoma. No drainage. Neurologic: Normal speech. No tremor. Laboratory Data: Sodium 131, potassium 4.0, BUN 44, creatinine 4.14, glucose 45, magnesium 2.2, tota l bilirubin 0.3, AST 20, ALT 17, and AP 97. Impression And Plan: 1.End-stage renal disease, on hemodialysis and fluid overload. BNP is elevated. The patient has pe ripheral edema. The patient will have dialysis for metabolic clearance to obtain ultrafiltration and to control fluid overload and treat edema. The patient has hypoglycemia and she will continue D10. Continue to monitor electrolytes closely. Encourage p.o. intake. Insulin dose is on hold due to se dinesh hypoglycemia. 2.The patient has peripheral neuropathy and diabetic foot infection. The patient may need to have w orkup of sepsis due to ongoing hypotension. Borderline hypotension was found when she came to the [facility]. 3.Severe pulmonary hypertension. Continue to monitor fluid balance. Metoprolol is on hold due to h ypotension. 4.Anemia due to chronic kidney disease. Monitor hemoglobin level. Adjust JOHNNY as needed. EB/MODL Voice ID: [id number] Report ID: [id number]
[2022-06-22] MEDS: ATORVASTATIN 80 MG TAB PO SCH (21:05)
[2022-06-22] MEDS: DOCUSATE NA 100 MG CAP PO SCH (21:05)
[2022-06-22] MEDS: AMIODARONE HCL 200 MG TAB PO SCH (21:06)
[2022-06-22] MEDS: APIXABAN 2.5 MG TABLET PO SCH (21:06)
[2022-06-22] MEDS: GABAPENTIN 100 MG CAP PO SCH (21:06)
[2022-06-22] MEDS: FAMOTIDINE 20 MG TAB PO SCH (21:06)
--- NOTE | 2022-06-22 21:09 | RAD REPORT ---
EXAM DESCRIPTION: RAD - Chest Single View - 06/22/2022 8:59 pm CLINICAL HISTORY: chf COMPARISON: Chest Single View dated 05/06/2022; Chest Single View dated 05/05/2022; Chest Single View dated 03/27/2022; Chest Single View dated 03/26/2022 FINDINGS: Lines: Right IJ approach dialysis catheter. Pacemaker. Lungs: No evidence of edema or pneumonia. Pleural: No significant pleural effusions or pneumothorax. Cardiac: Mild cardiomegaly. Mediastinum: Within normal limits. Bones: No acute fractures. Other: None IMPRESSION: No acute cardiopulmonary disease.
[2022-06-22 21:45] VITALS: BMI 33.5
[2022-06-23 04:25] LABS: Hematocrit 36.4 % (36.0-45.0); Lymphocytes % 8.2 % (15.3-44.8); MCV 100.7 fL (80-100); MPV 7.4 fL (7.6-11.3); RBC Red Blood Cell Count 3.61 M/uL (3.86-4.86)
[2022-06-23 04:45] LABS: Albumin 2.2 g/dL (3.4-5.0); Bilirubin Total 0.3 mg/dL (0.2-1.0); Potassium 4.3 mEq/L (3.5-5.1); Protein, Total 6.7 g/dL (6.4-8.2)
[2022-06-23] MEDS: LEVOTHYROXINE SOD 0.1 MG TAB PO SCH (05:48)
--- NOTE | 2022-06-23 07:12 | P.PN ---
Date of Service: 06/23/22 Subjective: feeling "okay" today, dialyzed yesterday urinating less frequently and volume for ~2 days, no BM states she has not been drinking or eating as much as usual (~2 days) Left 1st toe improving; slightly less red today ROS: 10 point ROS as noted above, otherwise negative Physical Exam: GEN: Alert, oriented, NAD HEENT: Normal conjunctiva, sclera anicteric CV: Regular rate and rhythm, no edema Pulm: Nonlabored respirations on room air ABD: Soft, nontender, nondistended MSK: No joint tenderness Integumentary: Pressure ulcer (sacrum), Other (Left 1st toe, erythema, mild hematoma under nail, no purulent drainage, discoloration of nail Neuro: Normal speech, normal affect vitals reviewed Problem List: Hypoglycemia, in IDDM2 with neuropathy L 1st toe injury Low UOP, ?urinary retention ESRD on HD Sacral decubitus ulcer HTN HLD severe pulm htn moderate AoS Paroxysmal afib Hypothyroidism bedbound Hypoglycemia in IDDM2 with neuropathy secondary to decreased PO intake while not adjusting insulin regimen s/p d10x2, tolerating PO in ED, glc improving restart 70/30 at half dose close monitoring L 1st toe injury pt unaware of mechanism of injury no definitive known time of onset, but diagnosed in last 1-2 days, states looks worse on admission compared to prior day x-ray - no fracture, +Calcaneal spurring Dr. Vieira, general surgery consulted Kerlix roll with extra padding no further surgical intervention needed Low UOP, ?urinary retention Urinalysis pending Renal u/s pending ESRD on HD nephrology consulted - dialyzed 06/22 renally dose meds Paroxysmal afib continue eliquis, amio hold metoprolol, BP soft in ED HTN HLD Severe pulm HTN, mod AoS Hypothyroidism continue home meds Code: Full Dispo: 2 days
[2022-06-23] MEDS: INSULIN -REGULAR HUMAN 50 UNIT/0.5 ML ML SQ SCH ×4 (07:30→21:17)
[2022-06-23] MEDS: APIXABAN 2.5 MG TABLET PO SCH ×2 (08:03→21:17)
[2022-06-23] MEDS: DULOXETINE 20 MG CAP PO SCH (08:03)
[2022-06-23] MEDS: DOCUSATE NA 100 MG CAP PO SCH ×3 (08:03→21:16)
[2022-06-23] MEDS: AMIODARONE HCL 200 MG TAB PO SCH ×2 (08:03→21:17)
[2022-06-23] MEDS: CLOPIDOGREL 75 MG TABLET PO SCH (08:03)
[2022-06-23] MEDS: COLLAGENASE 30 GM OINTMENT TOP SCH (08:04)
[2022-06-23] MEDS ORDERED: GLUCAGON 1 MG/VIAL IM PRN (12:59)
--- NOTE | 2022-06-23 13:13 | RAD REPORT ---
EXAM DESCRIPTION: US - Renal Ultrasound-Complete - 06/23/2022 12:48 pm CLINICAL HISTORY: eval bladder/kidneys Flank pain, abdomen pain COMPARISON: Renal Ultrasound-Complete dated 03/19/2022 FINDINGS: Both kidneys are normal in size, shape and echotexture. The right kidney measures 8.3 x 5.5 x 4.8 cm. No hydronephrosis, focal mass or perinephric fluid. The left kidney measures 10.5 x 5.7 x 4.3 cm. No hydronephrosis, focal mass or perinephric fluid. Moderate debris is present in the bladder. IMPRESSION: Unremarkable renal sonogram. Moderate debris in the urinary bladder.
[2022-06-23] MEDS ORDERED: D10W 250 ML BAG IV PRN (13:35)
[2022-06-23 14:11] LABS: Specific Gravity 1.015 (1.005-1.030); Urine Bacteria Loaded /HPF (<20); Urine Bilirubin NEGATIVE (Negative); Urine Blood 2+ (Negative); Urine Clarity Extremely Turbid (Clear); Urine Color Dark-Brown (Yellow); Urine Glucose NEGATIVE (Negative); Urine Protein 3+ (Negative); Urine RBC >50 /HPF (None Seen); Urine Urobilinogen Normal (Normal); Urine WBC Clump Many /HPF (None Seen); Urine Yeast with Hyphae Many /HPF (None Seen); Urine pH 5.5 (5.0-7.0)
[2022-06-23] MEDS: CEFAZOLIN 1 GM in NA CHLORIDE 0.9% 50 ML IVPB SCH (14:15)
[2022-06-23] MEDS: METOPROLOL XL 25 MG TAB PO SCH (14:15)
--- NOTE | 2022-06-23 14:44 | EKG ---
Test Date: 2022-06-22 Test Time: 13:57:43 Emt I/85: CLAY MEASUREMENT RESULTS: Intervals: Rate: 57 MA: 210 QRSD: 160 QT: 484 QTc: 471 [place]: P: 78 MA: 210 QRS: 18 T: 54 INTERPRETIVE STATEMENTS: Sinus bradycardia with 1st degree AV block Right bundle branch block Abnormal ECG Compared to ECG 05/05/2022 11:11:13 First degree AV block now present Atrial-paced complex(es) or rhythm no longer present Electronically Signed On 06-23-22 14:43:07 CDT by Lui Tomlinson
[2022-06-23] MEDS: INSULIN 70/30 100 UNITS/ML SQ SCH (16:38)
[2022-06-23] MEDS: GABAPENTIN 100 MG CAP PO SCH (21:16)
[2022-06-23] MEDS: FAMOTIDINE 20 MG TAB PO SCH (21:17)
[2022-06-23] MEDS: ATORVASTATIN 80 MG TAB PO SCH (21:17)
--- NOTE | 2022-06-24 01:37 | PN ---
Date of Progress Note: 06/23/2022 Chief Complaint: Acute kidney injury on advanced chronic kidney disease, end-stage renal disease. History Of Present Illness: Patient is dialysis dependent. She was referred from Dialysis Center be cause of severe hypoglycemia. She was evaluated in the emergency room, was found to have hypotension , severe hypoglycemia. She is an 81-year-old woman with past medical history of CVA in January 2017 , severe pulmonary hypertension, obesity, hypertension, hyperlipidemia, insulin-dependent diabetes me llitus, hypothyroidism, and atrial fibrillation. The patient was treated with D10 for severe hypogly cemia. Blood glucose was in 20s. The patient was evaluated for possible sepsis. She was found to h ave urinary tract infection and cellulitis, possible osteomyelitis of the big toe. Review of Systems: Denies fever or chills. Physical Examination: Lungs: Diminished breath sounds at bases. Heart: S1, S2. Abdomen: Soft. Extremities: There is slight edema. Impression And Plan: 1.End-stage renal disease, on hemodialysis; fluid overload. The patient was treated with dialysis. She received dialysis yesterday with ultrafiltration. Continue to monitor fluid balance, avoid high fluid intake. Encouraged to follow renal diet. 2.Diabetes mellitus with hypoglycemia, resolved. Resume p.o. intake. Blood glucose is stable. 3.Peripheral neuropathy and diabetic foot infection. Continue antibiotics. Patient is undergoing w orkup for osteomyelitis. 4.Urinary tract infection. Continue antibiotics and adjust antibiotics according to urine culture. Patient has a Castro catheter and urine culture is pending. Blood culture preliminary report showed no growth in 24 hours . WILLIAM/SUSANNAL Voice ID: [id number] Report ID: [id number]
[2022-06-24] MEDS: LEVOTHYROXINE SOD 0.1 MG TAB PO SCH (05:36)
--- NOTE | 2022-06-24 07:07 | P.PN ---
Date of Service: 06/24/22 Subjective: feeling pretty good today; hungry no pain in foot this morning had ~450ml of urinary retention yesterday no acute events overnight ROS: 10 point ROS as noted above, otherwise negative Physical Exam: GEN: Alert, oriented, NAD HEENT: Normal conjunctiva, sclera anicteric CV: Regular rate and rhythm, no edema Pulm: Nonlabored respirations on room air ABD: Soft, nontender, nondistended Integumentary: Pressure ulcer (sacrum), Other (Left 1st toe, erythema, mild hematoma under nail, no purulent drainage, discoloration of nail Neuro: Normal speech, normal affect Castro, milky white urine; minimal UOP vitals reviewed Problem List: Hypoglycemia, in IDDM2 with neuropathy L 1st toe injury Low UOP, urinary retention UTI ESRD on HD Sacral decubitus ulcer HTN HLD severe pulm htn moderate AoS Paroxysmal afib Hypothyroidism bedbound Hypoglycemia in IDDM2 with neuropathy secondary to decreased PO intake while not adjusting insulin regimen s/p d10x2, tolerating PO in ED, glc improving restart 70/30 at half dose, adjust as appropriate close monitoring L 1st toe injury pt unaware of mechanism of injury no definitive known time of onset, but diagnosed in last 1-2 days, states looks worse on admission compared to prior day x-ray - no fracture, +Calcaneal spurring Dr. Vieira, general surgery consulted local wound care Kerlix roll with extra padding no further surgical intervention needed Low UOP, urinary retention UTI Urinalysis Many WBC clumps, + bacteria, + yeast w hyphae h/o becky infection Renal u/s - unremarkable urine culture pending continue Cefazolin (06/23) ID consulted ESRD on HD nephrology consulted - dialyzed 06/22 renally dose meds Paroxysmal afib continue eliquis, amio hold metoprolol, BP soft in ED HTN HLD Severe pulm HTN, mod AoS Hypothyroidism continue home meds Code: Full Dispo: 2-3 days
[2022-06-24 07:26] LABS: Thyroid Stimulating Hormone 4.31 uIU/mL (0.358-3.740)
[2022-06-24] MEDS: INSULIN -REGULAR HUMAN 50 UNIT/0.5 ML ML SQ SCH ×4 (07:30→21:57)
[2022-06-24] MEDS: CEFAZOLIN 1 GM in NA CHLORIDE 0.9% 50 ML IVPB SCH (08:17)
[2022-06-24] MEDS: INSULIN 70/30 100 UNITS/ML SQ SCH ×2 (08:17→16:49)
[2022-06-24] MEDS: CLOPIDOGREL 75 MG TABLET PO SCH (08:18)
[2022-06-24] MEDS: APIXABAN 2.5 MG TABLET PO SCH ×2 (08:18→21:56)
[2022-06-24] MEDS: DOCUSATE NA 100 MG CAP PO SCH ×2 (08:18→21:56)
[2022-06-24] MEDS: COLLAGENASE 30 GM OINTMENT TOP SCH (08:19)
[2022-06-24] MEDS: AMIODARONE HCL 200 MG TAB PO SCH ×2 (08:19→21:56)
[2022-06-24] MEDS: METOPROLOL XL 25 MG TAB PO SCH (08:19)
[2022-06-24] MEDS: DULOXETINE 20 MG CAP PO SCH (08:19)
--- NOTE | 2022-06-24 09:47 | P.CNS ---
Date of Consult: 06/24/22 Reason for Consult: UTI, recurrent Chief Complaint: Hypoglycemia History of Present Illness: Patient is an 81 yo female with a PMH of pulmonary hypertension, hx CVA, DM2, HTN, HLD, hypothyroid, atrial fibrillation and ESRD who presented to the ED with complaints of altered mental status. She was found to be hypoglycemic with a blood glucose of 29. ED workup obtained, Afebrile, leukocytosis WBC 13, XR foot negative, XR chest no acute findings, UA showing pyuria, bacteruria, +yeast and ID was consulted. Allergies No Known Allergies Allergy (Verified 08/27/19 22:08) Home medications list reviewed: Yes Home Medications: Atorvastatin Calcium [Lipitor] 1 tab PO BEDTIME 05/08/17 Duloxetine [Cymbalta *] 1 cap PO DAILY 05/08/17 Hum Insulin NPH/Reg Insulin Hm [Humulin 70-30 Vial] 25 unit SQ BID 08/28/19 Acetaminophen with Codeine [Acetaminophen-Cod #3 Tablet] 1 tab PO Q6HP PRN 03/19/22 Metoprolol Succinate [Toprol Xl*] 12.5 mg PO DAILY 03/19/22 Apixaban [Eliquis *] 2.5 mg PO BID 03/31/22 Clopidogrel Bisulfate [Plavix*] 75 mg PO DAILY 03/31/22 Docusate [Colace Cap*] 100 mg PO BID cap 03/31/22 Polyethyl Gly 3350 [Glycolax*] 17 gm PO DAILY udbot 03/31/22 Acetaminophen [Tylenol] 650 mg PO Q8HP PRN 06/22/22 Amiodarone HCl [Pacerone] 200 mg PO BID 06/22/22 Ascorbic Acid 500 mg PO BID 06/22/22 Collagenase [Santyl Ointment] 30 gm TP DAILY 06/22/22 Gabapentin 200 mg PO BEDTIME 06/22/22 Levothyroxine [Synthroid] 125 mcg PO [id number] 06/22/22 Mag Hydroxide 8% [Milk Of Magnesia] 30 ml PO DAILYPRN PRN 06/22/22 Ondansetron [Zofran] 4 mg PO Q8HP PRN 06/22/22 Zinc Sulfate [Zinc Sulfate*] 220 mg PO DAILY 06/22/22 - Past Medical/Surgical History Diabetic: Yes -: 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 -: IDDiabetic -: HTN -: foot infection 04/2017 -: NEUROPATHY -: HLD -: HYPOTHYROIDISM -: has medtronic insertable surveillance monitor -: chronic osteomyelitis with non-healing ulcer right great toe s/p fall(2017) -: afib vs supraventricular tachycardia -: thyroidectomy -: cataract sx -: hysterectomy Psychosocial/ Personal History: jail - Family History Mother Medical History: Hypertension Father Medical History: Diabetes - Social History Smoking Status: Unknown if ever smoked Alcohol use: No CD- Drugs: No Caffeine use: No Place of Residence: [facility] Review of Systems 10-point ROS is otherwise unremarkable General: Weakness Integumentary: Other (Sacral pressure injury) Physical Examination Temp Pulse Resp BP Pulse Ox 97.4 F 52 16 113/42 L 95 06/24/22 04:00 06/24/22 08:19 06/24/22 04:00 06/24/22 04:00 06/24/22 04:00 General: Alert, In no apparent distress, Oriented x3 HEENT: Atraumatic, Normocephalic Neck: JVD not distended Respiratory: Clear to auscultation bilaterally, Normal air movement Cardiovascular: No edema, Normal pulses Gastrointestinal: Normal bowel sounds, Soft and benign, Non-distended Musculoskeletal: No clubbing, No swelling, Other (bedbound/wheelchair) Integumentary: Pressure ulcer (sacrum, unstageable), Other (left great toe injury/wound) Neurological: Normal speech, Normal tone, Sensation intact, Normal affect Urinary: Castro catheter (draining pus-like urine) Laboratory Data - Reviewed Microbiology Data - Reviewed Imagings Data: - XR left foot 06/22: "No acute fracture. No malalignment. Calcaneal spurring. Peripheral vascular calcifications. Midfoot degenerative changes." - Renal ultrasound 06/23: "Unremarkable renal sonogram.Moderate debris in the urinary bladder." - XR Chest 06/22: "No acute cardiopulmonary disease." Conclusions/Impression: Problem List Pulmonary Hypertension Hypertension Hx CVA Hyperlipidemia ESRD Diabetes Mellitus type 2 Hypothyroidism Atrial fibrillation Urinary Tract Infection, recurrent Sacral Pressure injury, unstageable Urinary Tract Infection - UA 06/23: [LE 500, RBC >50, WBC >50, Many WBC clumps, + bacteria, + yeast w hyphae] - Urine culture 06/23: Pending - Currently on Cefazolin (started 06/23) Leukocytosis improving Afebrile Blood cultures 06/22: no growth 24 hours Recommendations - Continue Cefazolin for now. Awaiting urine culture results. Will adjust antibiotics as appropriate. - Monitor WBC and fever trends - Left great toe injury: [place] wound with betadine and cover with gauze or kerlix - Turn patient Q2H ID will follow up and monitor patient closely. Case discussed with Becca Eaton. Thank you Dr. Mack for consult.
[2022-06-24 10:14] LABS: Hematocrit 35.1 % (36.0-45.0); Lymphocytes % 9.6 % (15.3-44.8); MCV 101.2 fL (80-100); MPV 7.4 fL (7.6-11.3); RBC Red Blood Cell Count 3.47 M/uL (3.86-4.86)
[2022-06-24 10:32] LABS: Bilirubin Total 0.2 mg/dL (0.2-1.0); Magnesium 2.2 mg/dL (1.6-2.4); Potassium 4.7 mEq/L (3.5-5.1); Protein, Total 6.2 g/dL (6.4-8.2)
[2022-06-24 14:27] LABS: Hepatitis B surface AG Interp. Nonreactive (Nonreactive)
[2022-06-24 14:29] LABS: Hepatitis B Surface Ab - Quant < 3.10 mIU/mL (<8.0)
[2022-06-24] MEDS ORDERED: NA CHLORIDE 0.9% 500 ML IV ONE (17:21)
[2022-06-24] MEDS: ATORVASTATIN 80 MG TAB PO SCH (21:56)
[2022-06-24] MEDS: GABAPENTIN 100 MG CAP PO SCH (21:57)
[2022-06-24] MEDS: FAMOTIDINE 20 MG TAB PO SCH (21:58)
--- NOTE | 2022-06-25 03:48 | PN ---
Date of Progress Note: 06/24/2022 Subjective: Acute kidney injury on advanced chronic kidney disease. Patient is dialysis-dependent. There is no evidence of renal function recovery and patient is on dialysis 3 times per week for end- stage renal disease. Patient was found to have severe hypoglycemia. Subsequently, workup revealed u rinary tract infection and diabetic foot infection. Patient is an 81-year-old woman with history of CVA in January 2017, severe pulmonary hypertension, hyperlipidemia, insulin-dependent diabetes melli tus, hypothyroid, atrial fibrillation. Review of Systems: Denies fever or chills. Physical Examination: Lungs: Diminished breath sounds at bases. Heart: S1, S2. Abdomen: Soft. Extremities: Dressing in place. Slight edema. Impression And Plan: 1.End-stage renal disease, on hemodialysis. 2.Peripheral edema. Continue low-sodium diet p.o. fluid restriction. Next dialysis tomorrow. 3.Diabetes mellitus, with hypoglycemia. Hypoglycemia resolved. Continue to monitor blood glucose. 4.Peripheral neuropathy and diabetic foot infection. Continue antibiotics and patient needs workup for osteomyelitis. 5.Urinary tract infection. Patient is on antibiotics currently because of urinary retention. Patie nt may need further evaluation by Urology. 6.Blood cultures. Preliminary report showed no growth. Monitor urine culture. EB/MODL Voice ID: [id number] Report ID: [id number]
[2022-06-25 06:27] LABS: Hematocrit 36.4 % (36.0-45.0); MCV 100.8 fL (80-100); MPV 7.3 fL (7.6-11.3); RBC Red Blood Cell Count 3.61 M/uL (3.86-4.86)
[2022-06-25] MEDS: LEVOTHYROXINE SOD 0.1 MG TAB PO SCH (06:28)
[2022-06-25 06:43] LABS: Potassium 4.5 mEq/L (3.5-5.1)
[2022-06-25] MEDS: INSULIN -REGULAR HUMAN 50 UNIT/0.5 ML ML SQ SCH ×3 (07:30→16:30)
[2022-06-25] MEDS: METOPROLOL XL 25 MG TAB PO SCH (09:00)
[2022-06-25] MEDS: DOCUSATE NA 100 MG CAP PO SCH (09:17)
[2022-06-25] MEDS: INSULIN 70/30 100 UNITS/ML SQ SCH ×2 (09:17→16:30)
[2022-06-25] MEDS: CEFAZOLIN 1 GM in NA CHLORIDE 0.9% 50 ML IVPB SCH (09:17)
[2022-06-25] MEDS: DULOXETINE 20 MG CAP PO SCH (09:17)
[2022-06-25] MEDS: COLLAGENASE 30 GM OINTMENT TOP SCH (09:18)
[2022-06-25] MEDS: AMIODARONE HCL 200 MG TAB PO SCH (09:18)
[2022-06-25] MEDS: APIXABAN 2.5 MG TABLET PO SCH (09:20)
[2022-06-25] MEDS: CLOPIDOGREL 75 MG TABLET PO SCH (09:21)
--- NOTE | 2022-06-25 09:28 | P.PN ---
Date of Service: 06/25/22 Chief Complaint: Hypoglycemia Subjective: No new changes. Patient in bed, awake and oriented x3. Breathing comfortably on room air. No complaints at this time. Physical Examination Temp Pulse Resp BP Pulse Ox 98.1 F 51 18 118/51 L 93 06/25/22 08:00 06/25/22 09:00 06/25/22 08:00 06/25/22 08:00 06/25/22 08:00 General: Alert, In no apparent distress, Oriented x3 HEENT: Atraumatic, Normocephalic Neck: JVD not distended Respiratory: Clear to auscultation bilaterally, Normal air movement Cardiovascular: No edema, Normal pulses Gastrointestinal: Normal bowel sounds, Soft and benign, Non-distended Musculoskeletal: No clubbing, No swelling, Other (bedbound/wheelchair) Integumentary: Pressure ulcer (sacrum, unstageable), Other (left great toe injury/wound) Neurological: Normal speech, Normal tone, Sensation intact, Normal affect Urinary: Castro catheter (draining pus-like urine) Studies Laboratory Data - Reviewed Microbiology Data - Reviewed Imagings Data: - XR left foot 06/22: "No acute fracture. No malalignment. Calcaneal spurring. Peripheral vascular calcifications. Midfoot degenerative changes." - XR Chest 06/22: "No acute cardiopulmonary disease." Assessment and Plan Problem List Pulmonary Hypertension Hypertension Hx CVA Hyperlipidemia ESRD Diabetes Mellitus type 2 Hypothyroidism Atrial fibrillation Urinary Tract Infection, recurrent Sacral Pressure injury, unstageable Urinary Tract Infection - Renal ultrasound 06/23: "Unremarkable renal sonogram. Moderate debris in the urinary bladder." - UA 06/23: [LE 500, RBC >50, WBC >50, Many WBC clumps, + bacteria, + yeast w hy phae] - Urine culture 06/23: [place] count >100,000 CFU/mL; 4+ yeast - final culture results pending - Castro draining yellow urine with large amount of sediment - Currently on Cefazolin (started 06/23) Leukocytosis (WBC 11.2) Afebrile Blood cultures 06/22: no growth 24 hours Recommendations - 4+ yeast in urine, start on Fluconazole. Monitor liver and renal functions and monitor HR/rhythm as patient is on Amiodarone. QTc 471. - Continue Cefazolin for now. Awaiting final urine culture results. Will adjust antibiotics as appropriate. - Monitor WBC and fever trends - Left great toe injury: [place] wound with betadine and cover with gauze or kerlix - Continue wound care to sacral pressure injury and turn patient Q2H ID will follow up and monitor patient closely. Case discussed with Boogie Eaton
[2022-06-25] MEDS: EPOETIN ALFA 10,000 UNIT/ML VIAL IV SCH (13:15)
[2022-06-25 14:27] VITALS: O2SAT 94
[2022-06-25 16:28] VITALS: TEMP 97.5
--- NOTE | 2022-06-25 16:59 | PN ---
Date of Progress Note: 06/25/2022 Subjective: The patient was admitted to the hospital because of hypoglycemia secondary to UTI. Physical Examination: Vital Signs: Blood pressure 118/51, pulse of 51, afebrile. Chest: Clear to auscultation. Heart: S1, S2. Regular. Abdomen: Soft, nontender. Extremity: Trace edema. Neurologic: Alert. No focality. Laboratory Data: Hemoglobin 11.8. Sodium 131, potassium 4.5, bicarb 24, BUN 57, creatinine 5.8, GFR of 7, calcium 8.4. Current Medications: The patient on include; 1. Eliquis. 2. Plavix. 3. Epogen. 4. Amiodarone. 5. Atorvastatin. 6. Metoprolol 12.5 b.i.d. 7. Gabapentin. 8. Pepcid. 9. Levothyroxine. 10. D5. Assessment And Plan: 1. End-stage renal disease. We will continue the patient on dialysis TTS. 2. Hypertension, controlled, optimal. Currently blood pressure on the lower side. Keep holding blood pressure medications. 3. Anemia of chronic kidney disease. Continue JOHNNY. 4. Hypoglycemia secondary to urinary tract infection. Continue adjustment. 5. Urinary tract infection. Continue current antibiotic. We will follow up. 6. Acute kidney injury. No sign of recovery. Mostly, the patient has end- stage renal disease. We will continue dialysis TTS. time spend exam the patient face to face , reviewing the DATA lab and Radiology, placing the order, discussing the case with the patient ,reviewing the care plan with steam clothes press operator including the nursing staff , discussing with the hospitalist >35 min YUDITH Voice ID: [id number] Report ID: [id number] [facility]
[2022-06-25 17:08] VITALS: BP 110/40
--- NOTE | 2022-06-25 17:36 | P.DS ---
Admission Date: 06/24/22 Discharge Date: 06/25/22 Disposition: TRANSFER TO CORRECTION Discharge Condition: FAIR Reason for Admission: Hypoglycemia Brief History of Present Illness: 81 yo F, PMH: CVA (January 2017), severe pulmonary hypertension, HTN, HLD, ESRD, IDDM2, Hypothyroidism, Afib presented to ED due to hypoglycemia. She was at dialysis center when she was noted to be "talking crazy" (by her own account). Glucose was checked and in the 20s. She states she hate half of her dinner last night and breakfast in order to minimize chance of bowel movement and having to sit in her own BM for a while before getting help. She continued on her usual insulin despite lowering her oral intake across 2 meals. She reported yesterday discovering an injury to her left 1st toe. She does not know how it happened, denied any pain. Denies fever/chills/diarrhea. no recent illness Her POC glucose was 29 on arrival, and increased to 125 after 10% dextrose administration. Patient hospitalized for further management. Hospital Course: Diagnosis Hypoglycemia, in IDDM2 with neuropathy L great toe injury Low UOP, urinary retention UTI ESRD on HD Sacral decubitus ulcer HTN HLD severe pulm htn moderate AoS Paroxysmal afib Hypothyroidism bedbound Hypoglycemia in IDDM2 with neuropathy secondary to decreased PO intake while not adjusting insulin regimen s/p d10x2, patient tolerated. Blood glucose improved and patient restarted on her 70/30 insulin at half dose Blood sugar has been within normal range since. Patient discharged with half dose of her home insulin regimen. Would recommend titrating her 70/30 insulin as her oral intake improve. close monitoring L 1st toe injury pt unaware of mechanism of injury no definitive known time of onset, but diagnosed in last 1-2 days, states looks worse on admission compared to prior day x-ray - no fracture, +Calcaneal spurring Dr. Vieira, general surgery consulted local wound care no further surgical intervention needed Low UOP, urinary retention UTI Urinalysis Many WBC clumps, + bacteria, + yeast w hyphae Patient is oliguric and anticipate colonization h/o becky infection Renal u/s - unremarkable Patient treated with Cefazolin (06/23) ID saw and assisted with management. She is discharged with cefpodoxime to continue treatment for UTI. ESRD on HD nephrology saw patient and she underwent routine hemodialysis. Paroxysmal afib continued eliquis, amiodarone held metoprolol for soft BP. Metoprolol held on discharge due to persistently soft blood pressure. HTN HLD Severe pulm HTN, mod AoS Hypothyroidism continued home meds Vital Signs/Physical Exam: Temp Pulse Resp BP Pulse Ox 97.5 F 57 17 110/40 L 94 06/25/22 16:00 06/25/22 17:08 06/25/22 16:00 06/25/22 17:08 06/25/22 16:00 General: In no apparent distress, Oriented x3 HEENT: Mucous membr. moist/pink Neck: JVD not distended Respiratory: Clear to auscultation bilaterally, Normal air movement Cardiovascular: No edema, Normal S1 S2, Irregular heart rate/rhythm Gastrointestinal: Soft and benign, Non-distended Musculoskeletal: No swelling Neurological: Other (No focal motor deficit) Laboratory Data at Discharge: WBC 11.20 thou/uL (4.3-10.9) H 06/25/22 05:30 Hgb 11.8 g/dL (12.0-15.0) L 06/25/22 05:30 Hct 36.4 % (36.0-45.0) 06/25/22 05:30 Plt Count 294 thou/uL (152-406) 06/25/22 05:30 PT 15.4 SECONDS (9.5-12.5) H 06/22/22 11:29 INR 1.40 06/22/22 11:29 Sodium 131 mEq/L (136-145) L 06/25/22 05:30 Potassium 4.5 mEq/L (3.5-5.1) 06/25/22 05:30 BUN 57 mg/dL (7-18) H 06/25/22 05:30 Creatinine 5.85 mg/dL (0.55-1.02) H 06/25/22 05:30 Glucose 133 mg/dL (74-106) H 06/25/22 05:30 Magnesium 2.2 mg/dL (1.6-2.4) 06/24/22 10:00 Total Bilirubin 0.2 mg/dL (0.2-1.0) 06/24/22 10:00 AST 15 U/L (15-37) 06/24/22 10:00 ALT 12 U/L (13-56) L 06/24/22 10:00 Alkaline Phosphatase 69 U/L (45-117) 06/24/22 10:00 Home Medications: Atorvastatin Calcium [Lipitor] 1 tab PO BEDTIME 05/08/17 Duloxetine [Cymbalta *] 1 cap PO DAILY 05/08/17 Acetaminophen with Codeine [Acetaminophen-Cod #3 Tablet] 1 tab PO Q6HP PRN 03/19/22 Apixaban [Eliquis *] 2.5 mg PO BID 03/31/22 Clopidogrel Bisulfate [Plavix*] 75 mg PO DAILY 03/31/22 Docusate [Colace Cap*] 100 mg PO BID cap 03/31/22 Polyethyl Gly 3350 [Glycolax*] 17 gm PO DAILY udbot 03/31/22 Acetaminophen [Tylenol] 650 mg PO Q8HP PRN 06/22/22 Amiodarone HCl [Pacerone] 200 mg PO BID 06/22/22 Ascorbic Acid 500 mg PO BID 06/22/22 Collagenase [Santyl Ointment*] 30 gm TP DAILY 06/22/22 Gabapentin 200 mg PO BEDTIME 06/22/22 Levothyroxine [Synthroid*] 125 mcg PO [id number] 06/22/22 Mag Hydroxide 8% [Milk Of Magnesia*] 30 ml PO DAILYPRN PRN 06/22/22 Ondansetron [Zofran (Odt)*] 4 mg PO Q8HP PRN 06/22/22 Zinc Sulfate [Zinc Sulfate*] 220 mg PO DAILY 06/22/22 Cefpodoxime Proxetil 100 mg PO DAILY #5 tab 06/25/22 Collagenase [Santyl Ointment*] 1 appl TOP DAILY #1 tube 06/25/22 Epoetin [Retacrit] 10,000 unit IV EVERY HD vial 06/25/22 Fluconazole [Diflucan] 200 mg PO T,TH,S #6 tab 06/25/22 Insulin 70/30 NPH/Reg Human [Novolin 70/30*] 10 unit SQ BIDAC #10 ml 06/25/22 New Medications: Cefpodoxime Proxetil 100 mg PO DAILY #5 tab Fluconazole [Diflucan] 200 mg PO T,TH,S #6 tab Insulin 70/30 NPH/Reg Human [Novolin 70/30*] 10 unit SQ BIDAC #10 ml Collagenase [Santyl Ointment*] 1 appl TOP DAILY #1 tube Diet: Renal Activity: Fall precautions Followup: Promise Heller MD [ACTIVE - CAN ADMIT] - 1-2 Weeks NONE,NONE [Primary Care Provider] - Time spent managing pt's care (in minutes): 34
== END 2022-06-25 19:55 | DRG 637 ==
LOC: ER 11:12 → ERHOLD 15:07 → 4TH 16:15 → OBSVTOIN 06-24 12:21
PROVIDERS: ADMIT Hospitalist; ATTEND Internal Medicine
PROC: 5A1D70Z Performance of Urinary Filtration, Intermittent, Less than 6 Hours Per Day (ICD-10-PCS; principal; 2022-06-24)
DX: E11.649 Type 2 diabetes mellitus with hypoglycemia without coma (principal); G93.41 Metabolic encephalopathy; I12.0 Hypertensive chronic kidney disease with stage 5 chronic kidney disease or end stage renal disease; N39.0 Urinary tract infection, site not specified; N18.6 End stage renal disease; E11.22 Type 2 diabetes mellitus with diabetic chronic kidney disease; E11.42 Type 2 diabetes mellitus with diabetic polyneuropathy; D63.1 Anemia in chronic kidney disease; N17.9 Acute kidney failure, unspecified; E03.9 Hypothyroidism, unspecified; L03.031 Cellulitis of right toe; E78.5 Hyperlipidemia, unspecified; I48.0 Paroxysmal atrial fibrillation; I27.20 Pulmonary hypertension, unspecified; L89.150 Pressure ulcer of sacral region, unstageable; S99.922A Unspecified injury of left foot, initial encounter; S90.212A Contusion of left great toe with damage to nail, initial encounter; R33.9 Retention of urine, unspecified; Z95.0 Presence of cardiac pacemaker; Z99.2 Dependence on renal dialysis; Z79.4 Long term (current) use of insulin; Z74.01 Bed confinement status; Z79.01 Long term (current) use of anticoagulants; Z90.710 Acquired absence of both cervix and uterus; Z79.890 Hormone replacement therapy; Z79.899 Other long term (current) drug therapy
CPT/HCPCS: 36415; 71045; 76770; 80048; 80053; 80076; 81001; 82533; 82947; 83605; 83735; 83880; 84439; 84443; 84484; 85025; 85610; 86706; 87040; 87086; 87088; 87340; 90935; 93005; 94760; 99285; G0378; J0690; J1644; J1815; J3590; J7040

== ENCOUNTER 2022-07-22 18:29 | Inpatient (IN) | payer OTHER ==
--- OUTSIDE RECORDS SUMMARY | 2022-07-22 18:37 | XMS REPORT | Continuity of Care Document ---
:1940 Author Organization [facility] t Address [address] [place] [address] Care Team Providers Name Role Phone SARIAH HART Primary Care Physician Unavailable Jacqui Pate Attending Clinician Unavailable KACIE CALDERON Attending Clinician Unavailable Vitor Attending Clinician Unavailable EM ALEX Attending Clinician Unavailable KACIE CALDERON Admitting Clinician Unavailable Vitor Admitting Clinician Unavailable EM ALEX Admitting Clinician Unavailable Payers Payer Name Policy Type Policy Number Effective Date Expiration Date S santiago [facility]/MEDICARE [id number] 2016 COMPLETE 00:00:00 [facility] MEDICARE [id number] COMPLETE (MEDICARE REPLACEMENT HMO) [facility] [id number] 2021 Common ADVANTAGE WELLMED 00:00:00 [facility] AARP MEDICARE 53 [id number] 2020 Common ADVANTAGE WELLMED 00:00:00 [facility] Problems Condition Condition Condition Status Onset Resolution [...] arterioscl 00:00: Me dical erosis erosis 00 [place] Accelerate Accelerate Disease Active [facility] d d 02-12 [facility] hypertensi hypertensi 00:00: Me dical on on 00 [place] S/P S/P Disease Active [facility] radiofrequ radiofrequ 02-12 kes ency ency 00:00: Medical ablation ablation 00 Center operation operation 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[address] yue yue nce 04-07 [facility] re-entry re-entry 00:00: Medica l tachycardi tachycardi 00 nter a) a) Stroke Stroke Disease Recurre 2016-[address] (cerebrum) (cerebrum) nce 04-03 Bev kes 00:00: Medical 00 Center Essential Essential Problem Com mon hypertensi hypertensi Sp chino on on - [facility] Dyslipidem Dyslipidem Problem C ommon ia ia [facility] - [facility]I [facility] Postoperat Hypothyroi Problem C ommon zena dism Spirit Hypothyroi associated - CHI dism with surgical [facility] procedure [facility] Hemiplegia Hemiplegia Problem C ommon of right affecting Spiri t dominant right - CHI side dominant side [facility] Long-term FCI Problem Com mon current (current) Spirit use of use of - CHI insulin insulin [facility] Diabetic Diabetes Problem Commo n neuropathy mellitus Spir it with - CHI diabetic neuropathy [facility] [id number] Chronic Problem Commo n kidney Spirit disease, - CHI stage 4 (severe) [facility] [id number] Melba Problem Common tropicalis [facility] infection - CHI [facility] [id number] 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[facility] [place] - CHI arteries [facility] extremitie Medica l s with Center intermitte nt claudicati on, left leg [id number] 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, - CHI recurrent, mild [facility] [id number] Bilateral Problem Com mon lower [facility] extremity - CHI edema [facility] [id number] Type 2 Problem Commo n 07 diabetes Spirit mellitus - CHI with diabetic [facility] chronic Medical kidney Center disease [id number] Chronic Problem 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 - CHI failure, unspecifie [facility] d heart Medical failure Center type History of History of Problem C ommon cerebrovas CVA Spirit cular (cerebrova - [facility]I accident scular St without accident) [facility] Center Allergies, Adverse Reactions, Alerts Allergy Allergy Status Severity Reaction(s) Onset Inactive Treating Comm ents Source Name Type Date Date Clinician NO KNOWN Allergy Active [facility] Family History Family Member Diagnosis Comments Start Date Stop Date Source Natural father Diabetes [facility] Natural mother Hypertension [facility] Social History Social Habit Start Date Stop Date Quantity Comments Source Gender identity [facility] Sexual orientation [facility] History of Tobacco [facility] - Use [facility] History of Social 2017-12-24 2017-12-[address] function 00:00:00 00:00:00 Hospital Alcohol intake 2017-09-18 2017-09-18 Current [facility] 00:00:00 00:00:00 non-drinker of Hospital alcohol (finding) Tobacco use and 2017-07-24 2017-07-24 Smokeless [facility] exposure 00:00:00 00:00:00 tobacco non-user Hospital Sex Assigned At [birth year] [facility] 00:00:00 00:00:00 Hospital Smoking Status Start Date [...] 80 MG 23:38: daily. Medical tablet 15 [place] famotidine Yes 20mg QD Take [address] (PEPCID) 20 6-29 by mouth Luke s MG tablet 23:38: daily. Medica l 15 [place] GABAPENTIN Yes 200mg QD Take [address] ORAL 6-29 mg by [facility]ukes 23:38: mouth Medical 15 daily. [place] aspirin 81 Yes 81mg QD Take [address] MG EC 6-29 by mouth [facility] tablet 23:38: daily. Medical 15 [place] metoprolol Yes 25mg QD Take [address] (TOPROL-XL) 6-29 by mouth Luke s 25 MG 24 hr 23:38: daily. Medi dragan tablet 15 [place] insulin Yes Inject [facility] 70/30, 6-29 [facility]ukes insulin 23:38: usly 2 Medical NPH-insulin 15 (two) Center regular, times (HumuLIN daily 70/30) 100 before unit/mL meals. (70-30) injection cloNIDine Yes .1mg Q.[id number] Take 0.[address] HCL 6-29 [id number] mg by [facility]ukes (CATAPRES) 23:38: 3D mouth [...] 20 MG 23:38: daily. Medical capsule 15 [place] furosemide Yes 80mg QD Take [address] (LASIX) 80 6-29 by mouth [facility]ukes MG tablet 23:38: daily. Medica l 15 [place] metoprolol Yes 12.5mg Take 12.[address] tartrate 6-29 mg by [facility]ukes (LOPRESSOR 23:38: mouth. Medic al ORAL) 15 [place] atorvastati Yes 80mg QD Take [address] n (LIPITOR) 6-29 by mouth Luke s 80 MG 23:38: daily. Medical tablet 15 [place] famotidine Yes 20mg QD Take [address] (PEPCID) 20 6-29 by mouth Luke s MG tablet 23:38: daily. Medica l 15 [place] GABAPENTIN Yes 200mg QD Take [address] ORAL 6-29 mg by Lukes 23:38: mouth Medical 15 daily. [place] aspirin 81 Yes 81mg QD Take [address] MG EC 6-29 by mouth [facility]ukes tablet 23:38: daily. Medical 15 [place] metoprolol Yes 25mg QD Take [address] (TOPROL-XL) 6-29 by mouth Luke s 25 MG 24 hr 23:38: daily. Medi dragan tablet 15 [place] insulin Yes Inject [facility] 70/30, 6-29 subcutaneo Lukes insulin 23:38: usly 2 Medical NPH-insulin 15 (two) Center regular, times (HumuLIN daily 70/30) 100 before unit/mL meals. (70-30) injection cloNIDine Yes .1mg Q.[id number] Take 0.[address] HCL 6-29 [id number] mg by Lukes (CATAPRES) 23:38: 3D mouth [...] 20 MG 23:38: daily. Medical capsule 15 [place] furosemide Yes 80mg QD Take [address] (LASIX) 80 6-29 by mouth [facility]ukes MG tablet 23:38: daily. Medica l 15 [place] metoprolol Yes 12.5mg Take 12.[address] tartrate 6-29 mg by Lukes (LOPRESSOR 23:38: mouth. Medic al ORAL) 15 Center atorvastati Yes 80mg QD Take [address] n (LIPITOR) 6-29 by mouth Luke s 80 MG 23:38: daily. Medical tablet 15 [place] famotidine Yes 20mg QD Take [address] (PEPCID) 20 6-29 by mouth Luke s MG tablet 23:38: daily. Medica l 15 [place] GABAPENTIN Yes 200mg QD Take [address] ORAL 6-29 mg by [facility]ukes 23:38: mouth Medical 15 daily. [place] aspirin 81 Yes 81mg QD Take [address] MG EC 6-29 by mouth [facility]ukes tablet 23:38: daily. Medical 15 [place] metoprolol Yes 25mg QD Take [address] (TOPROL-XL) 6-29 by mouth Luke s 25 MG 24 hr 23:38: daily. Medi dragan tablet 15 [place] insulin Yes Inject [facility] 70/30, 6-29 subcutaneo Lukes insulin 23:38: usly 2 Medical NPH-insulin 15 (two) Center regular, times (HumuLIN daily 70/30) 100 before unit/mL meals. (70-30) injection cloNIDine Yes .1mg Q.[id number] Take 0.[address] HCL 6-29 [id number] mg by Lukes (CATAPRES) 23:38: 3D mouth [...] 20 MG 23:38: daily. Medical capsule 15 [place] furosemide Yes 80mg QD Take [address] (LASIX) 80 6-29 by mouth [facility]ukes MG tablet 23:38: daily. Medica l 15 [place] metoprolol Yes 12.5mg Take 12.[address] tartrate 6-29 mg by Lukes (LOPRESSOR 23:38: mouth. Medic al ORAL) 15 [place] atorvastati Yes 80mg QD Take [address] n (LIPITOR) 6-29 by mouth Luke s 80 MG 23:38: daily. Medical tablet 15 [place] famotidine Yes 20mg QD Take [address] (PEPCID) 20 6-29 by mouth Luke s MG tablet 23:38: daily. Medica l 15 [place] GABAPENTIN Yes 200mg QD Take [address] ORAL 6-29 mg by Lukes 23:38: mouth Medical 15 daily. [place] aspirin 81 Yes 81mg QD Take [address] MG EC 6-29 by mouth [facility]ukes tablet 23:38: daily. Medical [address] [place] [address] metoprolol Yes 25mg QD Take [address] (TOPROL-XL) 6-29 by mouth Luke s 25 MG 24 hr 23:38: daily. Medi dragan tablet 15 [place] insulin Yes Inject [facility] 70/30, 6-29 subcutaneo Lukes insulin 23:38: usly 2 Medical NPH-insulin 15 (two) [place] regular, times (HumuLIN daily 70/30) 100 before unit/mL meals. (70-30) injection cloNIDine Yes .1mg Q.[id number] Take 0.[address] HCL 6-29 [id number] mg by Lukes (CATAPRES) 23:38: 3D mouth [...] (LOPRESSOR 23:38: mouth. Medic al ORAL) 15 [place] atorvastati Yes 80mg QD Take [address] n (LIPITOR) 6-29 by mouth Luke s 80 MG 23:38: daily. Medical tablet 15 [place] famotidine Yes 20mg QD Take [address] (PEPCID) 20 6-29 by mouth Luke s MG tablet 23:38: daily. Medica l 15 [place] GABAPENTIN Yes 200mg QD Take [address] ORAL 6-29 mg by Lukes 23:38: mouth Medical 15 daily. [place] aspirin 81 Yes 81mg QD Take [address] MG EC 6-29 by mouth [facility]ukes tablet 23:38: daily. Medical [address] [place] [address] metoprolol Yes 25mg QD Take [address] (TOPROL-XL) 6-29 by mouth Luke s 25 MG 24 hr 23:38: daily. Medi dragan tablet 15 [place] insulin Yes Inject [facility] 70/30, 6-29 subcutaneo Lukes insulin 23:38: usly 2 Medical NPH-insulin 15 (two) Center regular, times (HumuLIN daily 70/30) 100 before unit/mL meals. (70-30) injection cloNIDine Yes .1mg Q.[id number] Take 0.[address] HCL 6-29 [id number] mg by Lukes (CATAPRES) 23:38: 3D mouth [...] 20 MG 23:38: daily. Medical capsule 15 [place] furosemide Yes 80mg QD Take [address] (LASIX) 80 6-29 by mouth Lukes MG tablet 23:38: daily. Medica l 15 [place] metoprolol Yes 12.5mg Take 12.[address] tartrate 6-29 mg by Lukes (LOPRESSOR 23:38: mouth. Medic al ORAL) 15 [place] atorvastati Yes 80mg QD Take [address] n (LIPITOR) 6-29 by mouth Luke s 80 MG 23:38: daily. Medical tablet 15 [place] famotidine Yes 20mg QD Take [address] (PEPCID) 20 6-29 by mouth Luke s MG tablet 23:38: daily. Medica l 15 [place] GABAPENTIN Yes 200mg QD Take [address] ORAL 6-29 mg by Lukes 23:38: mouth Medical 15 daily. [place] aspirin 81 Yes 81mg QD Take [address] MG EC 6-29 by mouth [facility]ukes tablet 23:38: daily. Medical 15 [place] metoprolol Yes 25mg QD Take [address] (TOPROL-XL) 6-29 by mouth Luke s 25 MG 24 hr 23:38: daily. Medi dragan tablet 15 [place] insulin Yes Inject [facility] 70/30, 6-29 subcutaneo Lukes insulin 23:38: usly 2 Medical NPH-insulin 15 (two) Center regular, times (HumuLIN daily 70/30) 100 before unit/mL meals. (70-30) injection cloNIDine Yes .1mg Q.[id number] Take 0.[address] HCL 6-29 [id number] mg by Lukes (CATAPRES) 23:38: 3D mouth [...] 20 MG 23:38: daily. Medical capsule 15 [place] furosemide Yes 80mg QD Take [address] (LASIX) 80 6-29 by mouth Lukes MG tablet 23:38: daily. Medica l 15 [place] metoprolol Yes 12.5mg Take 12.[address] tartrate 6-29 mg by Lukes (LOPRESSOR 23:38: mouth. Medic al ORAL) 15 [place] atorvastati Yes 80mg QD Take [address] n (LIPITOR) 6-29 by mouth Luke s 80 MG 23:38: daily. Medical tablet 15 [place] famotidine Yes 20mg QD Take [address] (PEPCID) 20 6-29 by mouth Luke s MG tablet 23:38: daily. Medica l 15 [place] GABAPENTIN Yes 200mg QD Take [address] ORAL 6-29 mg by Lukes 23:38: mouth Medical 15 daily. [place] aspirin 81 Yes 81mg QD Take [address] MG EC 6-29 by mouth [facility]ukes tablet 23:38: daily. Medical 15 [place] metoprolol Yes 25mg QD Take [address] (TOPROL-XL) 6-29 by mouth Luke s 25 MG 24 hr 23:38: daily. Medi dragan tablet 15 [place] insulin Yes Inject [facility] 70/30, 6-29 subcutaneo Lukes insulin 23:38: usly 2 Medical NPH-insulin 15 (two) Center regular, times (HumuLIN daily 70/30) 100 before unit/mL meals. (70-30) injection cloNIDine Yes .1mg Q.[id number] Take 0.[address] HCL 6-29 [id number] mg by Lukes (CATAPRES) 23:38: 3D mouth 3 Medi rdagan 0.1 MG 15 (three) Center tablet times [...] 20 MG 23:38: daily. Medical capsule 15 [place] furosemide Yes 80mg QD Take [address] (LASIX) 80 6-29 by mouth Lukes MG tablet 23:38: daily. Medica l 15 [place] metoprolol Yes 12.5mg Take 12.[address] tartrate 6-29 mg by Lukes (LOPRESSOR 23:38: mouth. Medic al ORAL) 15 [place] atorvastati Yes 80mg QD Take [address] n (LIPITOR) 6-29 by mouth Luke s 80 MG 23:38: daily. Medical tablet 15 [place] famotidine Yes 20mg QD Take [address] (PEPCID) 20 6-29 by mouth Luke s MG tablet 23:38: daily. Medica l 15 [place] GABAPENTIN Yes 200mg QD Take [address] ORAL 6-29 mg by Lukes 23:38: mouth Medical 15 daily. [place] aspirin 81 Yes 81mg QD Take 81 [...] unit/mL meals. (70-30) injection cloNIDine Yes .1mg Q.[id number] Take 0.[address] HCL 6-29 [id number] mg by Lukes (CATAPRES) 23:38: 3D mouth [...] 20 MG 23:38: daily. Medical capsule 15 [place] furosemide Yes 80mg QD Take [address] (LASIX) 80 6-29 by mouth Lukes MG tablet 23:38: daily. Medica l 15 [place] metoprolol Yes 12.5mg Take 12.[address] tartrate 6-29 mg by Lukes (LOPRESSOR 23:38: mouth. Medic al ORAL) 15 [place] atorvastati Yes 80mg QD Take [address] n (LIPITOR) 6-29 by mouth Luke s 80 MG 23:38: daily. Medical tablet 15 [place] famotidine Yes 20mg QD Take [address] (PEPCID) 20 6-29 by mouth Luke s MG tablet 23:38: daily. Medica l 15 [place] GABAPENTIN Yes 200mg QD Take [address] ORAL 6-29 mg by Lukes 23:38: mouth Medical 15 daily. [place] aspirin 81 Yes 81mg QD Take 81 [...] unit/mL meals. (70-30) injection cloNIDine Yes .1mg Q.[id number] Take 0.[address] HCL 6-29 [id number] mg by Lukes (CATAPRES) 23:38: 3D mouth [...] 20 MG 23:38: daily. Medical capsule 15 [place] furosemide Yes 80mg QD Take [address] (LASIX) 80 6-29 by mouth Lukes MG tablet 23:38: daily. Medica l 15 [place] metoprolol Yes 12.5mg Take 12.[address] tartrate 6-29 mg by Lukes (LOPRESSOR 23:38: mouth. Medic al ORAL) 15 [place] atorvastati Yes 80mg QD Take [address] n (LIPITOR) 6-29 by mouth Luke s 80 MG 23:38: daily. Medical tablet 15 Center famotidine Yes 20mg QD Take [address] (PEPCID) 20 6-29 by mouth Luke s MG tablet 23:38: daily. Medica l 15 [place] GABAPENTIN Yes 200mg QD Take [address] ORAL 6-29 mg by Lukes 23:38: mouth Medical 15 daily. [place] aspirin 81 Yes 81mg QD Take [address] MG EC 6-29 by mouth Lukes tablet 23:38: daily. [facility] 15 [place] metoprolol Yes 25mg QD Take [address] (TOPROL-XL) 6-29 by mouth Luke s 25 MG 24 hr 23:38: daily. Medi dragan tablet 15 [place] insulin Yes Inject [facility] 70/30, 6-29 subcutaneo Lukes insulin 23:38: usly 2 Medical NPH-insulin 15 (two) Center regular, times (HumuLIN daily 70/30) 100 before unit/mL meals. (70-30) injection cloNIDine Yes .1mg Q.[id number] Take 0.[address] HCL 6-29 [id number] mg by Lukes (CATAPRES) 23:38: 3D mouth [...] 20 MG 23:38: daily. Medical capsule 15 [place] furosemide Yes 80mg QD Take [address] (LASIX) 80 6-29 by mouth Lukes MG tablet 23:38: daily. Medica l 15 [place] metoprolol Yes 12.5mg Take 12.[address] tartrate 6-29 mg by Lukes (LOPRESSOR 23:38: mouth. Medic al ORAL) 15 [place] aspirin 81 Yes 81mg QD Take [address] MG EC 6-29 by mouth [facility]ukes tablet 23:38: daily. [facility] 15 [place] metoprolol Yes 25mg QD Take [address] (TOPROL-XL) 6-29 by mouth Luke s 25 MG 24 hr 23:38: daily. Medi dragan tablet 15 Center insulin Yes Inject [facility] 70/30, 6-29 subcutaneo Lukes insulin 23:38: usly 2 Medical NPH-insulin 15 (two) Center regular, times (HumuLIN daily 70/30) 100 before unit/mL meals. (70-30) injection cloNIDine Yes .1mg Q.[id number] Take 0.[address] HCL 6-29 [id number] mg by Lukes (CATAPRES) 23:38: 3D mouth [...] 20 MG 23:38: daily. Medical capsule 15 [place] furosemide Yes 80mg QD Take 80 mg [...] MG tablet 23:38: daily. Medica l 15 [place] GABAPENTIN Yes 200mg QD Take 200 CH [...] II 31G X 5/16" 0.5 5/16" 0.5 06/25" 0.5 ML ML ML HUMULIN Yes INJECT [...] SKIN TID l (70-30) BEFORE injection MEALS DULoxetine Yes TK 1 C PO [facility] (CYMBALTA) 5-[address] 20 MG 00:00: Hospita capsule 00 l atorvastati Yes TK 1 T PO M ethodi n (LIPITOR) 5-[address] 80 MG 00:00: Hospita tablet 00 l famotidine 2018-0 Yes TK 1 T PO [facility] (PEPCID) 20 5-[address] MG tablet 00:00: Hospita 00 l DULoxetine 2017-0 Yes TK 1 [...] MG 00:00: Hospita tablet 00 l DULoxetine 2018-0 Yes TK 1 C PO [facility] (CYMBALTA) 5-[address] 20 MG 00:00: Hospita capsule 00 l famotidine 2018-0 Yes TK 1 T PO Me thodi (PEPCID) 20 5-[address] MG tablet 00:00: Hospita 00 l atorvastati 2018-0 Yes TK 1 T PO M ethodi n (LIPITOR) 5-[address] 80 MG 00:00: Hospita tablet 00 l DULoxetine 2018-0 Yes TK 1 C PO Me thodi (CYMBALTA) 5-[address] 20 MG 00:00: Hospita capsule 00 l famotidine 2018-0 Yes TK 1 T PO Me thodi (PEPCID) 20 5-[address] MG tablet 00:00: Hospita 00 l atorvastati 2018-0 Yes TK 1 T PO M ethodi n (LIPITOR) 5-[address] 80 MG 00:00: Hospita tablet 00 l levothyroxi 2017-0 Yes TK 1 [...] LEVOXYL) 00 l 150 mcg tablet levothyroxi 2018-0 Yes TK 1 T PO M ethodi ne 3-[address] (SYNTHROID, 00:00: Hospit a LEVOXYL) 00 l 150 mcg tablet levothyroxi 2018-0 Yes TK 1 T PO M ethodi ne 3-[address] (SYNTHROID, 00:00: Hospit a LEVOXYL) 00 l 150 mcg tablet insulin 2018-0 Yes 25u QAM [facility] [...] unit/mL 00 Center (3 mL) InPn injection gabapentin gabapentin No 2capsul Q1D gabapentin [facility] [...] by oral by oral route. route. route. metoprolol metoprolol No metoprolol [facility] succinate succinate [...] a route. route. day by oral route. Immunizations Ordered Immunization Filled Immunization Date Status Commen ts Source Name Name FLUZONE HIGH DOSE FLUZONE HIGH DOSE 2021-03-07 Completed [facility] OVER 65 OVER 65 10:58:00 [facility] FLUZONE HIGH DOSE FLUZONE HIGH DOSE 2021-03-07 Completed [facility] OVER 65 OVER 65 10:58:00 [facility] FLUZONE HIGH DOSE FLUZONE HIGH DOSE 2021-03-07 Completed [facility] OVER 65 OVER 65 10:58:00 - [facility] FLUZONE HIGH DOSE FLUZONE HIGH DOSE 2021-03-07 Completed [facility] OVER 65 OVER 65 10:58:00 - [facility] FLUZONE HIGH DOSE FLUZONE HIGH DOSE 2021-03-07 Completed [facility] OVER 65 OVER 65 10:58:00 [facility] FLUZONE HIGH DOSE FLUZONE HIGH DOSE 2021-03-07 Completed [facility] OVER 65 OVER 65 10:58:00 [facility] FLUZONE HIGH DOSE FLUZONE HIGH DOSE 2021-03-07 Completed [facility] OVER 65 OVER 65 10:58:00 [facility] FLUZONE HIGH DOSE FLUZONE HIGH DOSE 2021-03-07 Completed [facility] OVER 65 OVER 65 10:58:00 - [facility] FLUZONE HIGH DOSE FLUZONE HIGH DOSE 2021-03-07 Completed [facility] OVER 65 OVER 65 10:58:00 - [facility] FLUZONE HIGH DOSE FLUZONE HIGH DOSE 2021-03-07 Completed [facility] OVER 65 OVER 65 10:58:00 - [facility] FLUZONE HIGH DOSE FLUZONE HIGH DOSE 2021-03-07 Completed [facility] OVER 65 OVER 65 10:58:00 - [facility] FLUZONE HIGH DOSE FLUZONE HIGH DOSE 2021-03-07 Completed [facility] OVER 65 OVER 65 10:58:00 - [facility] FLUZONE HIGH DOSE FLUZONE HIGH DOSE 2021-03-07 Completed [facility] OVER 65 OVER 65 10:58:00 - [facility] FLUZONE HIGH DOSE FLUZONE HIGH DOSE 2021-03-07 Completed [facility] OVER 65 OVER 65 10:58:00 - [facility] FLUZONE HIGH DOSE FLUZONE HIGH DOSE 2021-03-07 Completed [facility] OVER 65 OVER 65 10:58:00 - [facility] FLUZONE HIGH DOSE FLUZONE HIGH DOSE 2021-03-07 Completed [facility] OVER 65 OVER 65 10:58:00 [facility] COVID-19 Vaccine COVID-19 Vaccine 2020-04-14 Completed [facility] (Dmitry) (Dmitry) 13:50:00 [facility] COVID-19 Vaccine COVID-19 Vaccine 2020-04-14 Completed [facility] (Dmitry) (Dmitry) 13:50:00 [facility] COVID-19 Vaccine COVID-19 Vaccine 2020-04-14 Completed [facility] (Dmitry) (Dmitry) 13:50:00 [facility] COVID-19 Vaccine COVID-19 Vaccine 2020-04-14 Completed [facility] (Dmitry) (Dmitry) 13:50:00 [facility] COVID-19 Vaccine COVID-19 Vaccine 2020-04-14 Completed [facility] (Dmitry) (Dmitry) 13:50:00 - [facility] COVID-19 Vaccine COVID-19 Vaccine 2020-04-14 Completed [facility] (Dmitry) (Dmitry) 13:50:00 - [facility] COVID-19 Vaccine COVID-19 Vaccine 2020-04-14 Completed [facility] (Dmitry) (Dmitry) 13:50:00 - [facility] COVID-19 Vaccine COVID-19 Vaccine 2020-04-14 Completed [facility] (Dmitry) (Dmitry) 13:50:00 - [facility] COVID-19 Vaccine COVID-19 Vaccine 2020-04-14 Completed [facility] (Dmitry) (Dmitry) 13:50:00 - [facility] COVID-19 Vaccine COVID-19 Vaccine 2020-04-14 Completed [facility] (Dmitry) (Dmitry) 13:50:00 - [facility] COVID-19 Vaccine COVID-19 Vaccine 2020-04-14 Completed [facility] (Dmitry) (Dmitry) 13:50:00 - [facility] COVID-19 Vaccine COVID-19 Vaccine 2020-04-14 Completed [facility] (Dmitry) (Dmitry) 13:50:00 - [facility] COVID-19 Vaccine COVID-19 Vaccine 2020-04-14 Completed [facility] ([facility]ry) (Dmitry) 13:50:00 - [facility] COVID-19 Vaccine COVID-19 Vaccine 2020-04-14 Completed [facility] ([facility]ry) (Dmitry) 13:50:00 - [facility] COVID-19 Vaccine COVID-19 Vaccine 2020-04-14 Completed [facility] (Dmitry) (Dmitry) 13:50:00 - [facility] COVID-19 Vaccine COVID-19 Vaccine 2020-04-14 Completed [facility] (Dmitry) (Dmitry) 13:50:00 [facility] Influenza Three-TIV 2017-01-31 [facility]:00 [facility] Influenza Three-TIV 2017-01-31 Com[facility]R 00:00:00 [facility] Influenza Three-TIV 2017-01-31 [facility] 00[facility]00:00 [facility] Influenza Three-TIV 2017-01-31 Com[facility]+ YR 00:00:00 [facility] Influenza Three-TIV 2017-01-31 Com[facility] YR 00:00:00 [facility] Influenza Three-TIV 2017-01-31 Com[facility]R 00:00:00 [facility] Influenza Three-TIV 2017-01-31 Com[facility] 00:00:00 [facility] Influenza Three-TIV 2017-01-31 Com[facility]R 00:00:00 [facility] Influenza Three-TIV 2017-01-31 Com[facility]R 00:00:00 [facility] Influenza Three-TIV 2017-01-31 Com[facility] 00:00:00 [facility] Influenza Three-TIV 2017-01-31 Com[facility] 00:00:00 [facility] Vital Signs Vital Name Observation Time Observation Value Comments Source HEIGHT 2020-08-08 13:02:00 165.1 cm WEIGHT 2020-08-08 13:02:00 104.327 kg BP Diastolic 2022-05-28 00:00:00 72 mm[Hg] [facility] Cur[facility] Height 2022-05-28 00:00:00 65 [in_i] [facility] BMI (Body Mass Index) 2022-05-28 00:00:00 41.6 kg/m2 [facility] BP Systolic 2022-05-28 00:00:00 131 mm[Hg] [facility] Cur[facility] Body Weight 2022-05-28 00:00:00 4000 [oz_av] [facility] Cur[facility] height 2022-01-01 13:20:00 64 [in_i] [facility] weight 2022-01-01 13:20:00 230 [lb_av] [facility] temperature 2022-01-01 13:20:00 97.4 [degF] [facility] bmi 2022-01-01 13:20:00 39.48 kg/m2 [facility] oximetry 2022-01-01 13:20:00 98 % Common S pirit - [facility] respiratory rate 2022-01-01 13:20:00 17 /min Comm on [facility] blood pressure 2022-01-01 13:20:00 132 mm[Hg] Common [facility] - systolic [facility] blood pressure 2022-01-01 13:20:00 80 mm[Hg] Common [facility] - diastolic [facility] height 2021-10-02 14:20:00 64 [in_i] [facility] weight 2021-10-02 14:20:00 230 [lb_av] [facility] temperature 2021-10-02 14:20:00 97.9 [degF] Common [facility] bmi 2021-10-02 14:20:00 39.48 kg/m2 Common S [facility] oximetry 2021-10-02 14:20:00 97 % Common S [facility] respiratory rate 2021-10-02 14:20:00 18 /min Comm on [facility] blood pressure 2021-10-02 14:20:00 138 mm[Hg] Common [facility] - systolic [facility] blood pressure 2021-10-02 14:20:00 86 mm[Hg] Common [facility] - diastolic [facility] height 2021-07-19 13:40:00 64 [in_i] Common S pirit [facility] weight 2021-07-19 13:40:00 230 [lb_av] Common S [facility] temperature 2021-07-19 13:40:00 97.9 [degF] Common S pirit [facility] bmi 2021-07-19 13:40:00 39.48 kg/m2 Common S [facility] oximetry 2021-07-19 13:40:00 97 % Common S pirit [facility] respiratory rate 2021-07-19 13:40:00 16 /min Comm on [facility] blood pressure 2021-07-19 13:40:00 161 mm[Hg] Common [facility] - systolic [facility] blood pressure 2021-07-19 13:40:00 90 mm[Hg] Common [facility] - diastolic [facility] height 2021-06-05 13:20:00 64 [in_i] [facility] weight 2021-06-05 13:20:00 230 [lb_av] [facility] temperature 2021-06-05 13:20:00 97.6 [degF] Common S [facility] bmi 2021-06-05 13:20:00 39.48 kg/m2 [facility] oximetry 2021-06-05 13:20:00 96 % [facility] respiratory rate 2021-06-05 13:20:00 18 /min Comm on [facility] blood pressure 2021-06-05 13:20:00 142 mm[Hg] Common [facility] - systolic [facility] blood pressure 2021-06-05 13:20:00 70 mm[Hg] Common [facility] - diastolic [facility] height 2021-04-27 10:40:00 64 [in_i] Common [facility] weight 2021-04-27 10:40:00 230 [lb_av] Common S [facility] temperature 2021-04-27 10:40:00 97.7 [degF] [facility] bmi 2021-04-27 10:40:00 39.48 kg/m2 Common S [facility] oximetry 2021-04-27 10:40:00 95 % Common S [facility] respiratory rate 2021-04-27 10:40:00 18 /min Comm on [facility] blood pressure 2021-04-27 10:40:00 134 mm[Hg] Common [facility] - systolic [facility] blood pressure 2021-04-27 10:40:00 60 mm[Hg] Common [facility] - diastolic [facility] blood pressure 2021-03-07 09:40:00 132 mm[Hg] Common [facility] - systolic [facility] blood pressure 2021-03-07 09:40:00 80 mm[Hg] Common [facility] - diastolic [facility] height 2021-03-07 09:40:00 64 [in_i] Common [facility] weight 2021-03-07 09:40:00 230 [lb_av] [facility] temperature 2021-03-07 09:40:00 98.1 [degF] [facility] bmi 2021-03-07 09:40:00 39.48 kg/m2 [facility] oximetry 2021-03-07 09:40:00 98 % [facility] respiratory rate 2021-03-07 09:40:00 16 /min Comm on [facility] height 2021-03-07 10:20:00 64 [in_i] [facility] weight 2021-03-07 10:20:00 230 [lb_av] [facility] temperature 2021-03-07 10:20:00 98.1 [degF] [facility] bmi 2021-03-07 10:20:00 39.48 kg/m2 [facility] oximetry 2021-03-07 10:20:00 98 % [facility] blood pressure 2021-03-07 10:20:00 132 mm[Hg] [facility] systolic [facility] blood pressure 2021-03-07 10:20:00 80 mm[Hg] [facility] diastolic [facility] HEIGHT 2020-08-08 13:02:00 165.1 cm WEIGHT 2020-08-08 13:02:00 104.327 kg Procedures Procedure Date / Time Performing Clinician Source Performed Pacemaker 2020-08-08 00:00:00 [facility]ion of Tunneled [facility] C[facility]ter Using Fluoroscopic Guidance Parathyroidectomy [facility] Medical Plan of Care Planned Activity [...] INFLUENZA VACCINE (Season Ended)] Future Scheduled Test 2022-06-25 COVID-19 VACCINE (#1) [facility] 15:49:38 [code = COVID-19 VACCINE (#1)] Future Scheduled Test 2022-06-25 SHINGLES VACCINES (1 [facility] 15:49:38 of 2) [code = SHINGLES VACCINES (1 of 2)] Future Scheduled Test 2022-06-25 65+ PNEUMOCOCCAL [facility] 15:49:38 VACCINE (1 - PCV) [code = 65+ PNEUMOCOCCAL VACCINE (1 - PCV)] Future Scheduled Test 2022-06-25 INFLUENZA VACCINE [facility] 15:49:38 [code = INFLUENZA VACCINE] Future Scheduled Test 2022-06-25 COVID-19 VACCINE (#1) [facility] 15:49:38 [code = COVID-19 VACCINE (#1)] Future Scheduled Test 2022-06-25 SHINGLES VACCINES (1 [facility] 15:49:38 of 2) [code = SHINGLES VACCINES (1 of 2)] Future Scheduled Test 2022-06-25 65+ PNEUMOCOCCAL [facility] 15:49:38 VACCINE (1 - PCV) [code = 65+ PNEUMOCOCCAL VACCINE (1 - PCV)] Future Scheduled Test 2022-06-25 INFLUENZA VACCINE [facility] 15:49:38 [code = INFLUENZA VACCINE] Future Scheduled Test 2022-06-25 COVID-19 VACCINE (#1) [facility] 15:49:38 [code = COVID-19 VACCINE (#1)] Future Scheduled Test 2022-06-25 SHINGLES VACCINES (1 [facility] 15:49:38 of 2) [code = SHINGLES VACCINES (1 of 2)] Future Scheduled Test 2022-06-25 65+ PNEUMOCOCCAL [facility] 15:49:38 VACCINE (1 - PCV) [code = 65+ PNEUMOCOCCAL VACCINE (1 - PCV)] Future Scheduled Test 2022-06-25 INFLUENZA VACCINE [facility] 15:49:38 [code = INFLUENZA VACCINE] Future Scheduled Test 2022-05-29 COVID-19 VACCINE (#1) [facility] 16:19:09 [code = COVID-19 VACCINE (#1)] Future Scheduled Test 2022-05-29 SHINGLES VACCINES (1 [facility] 16:19:09 of 2) [code = SHINGLES VACCINES (1 of 2)] Future Scheduled Test 2022-05-29 65+ PNEUMOCOCCAL [facility] 16:19:09 VACCINE (1 - PCV) [code = 65+ PNEUMOCOCCAL VACCINE (1 - PCV)] Future Scheduled Test 2022-05-29 INFLUENZA VACCINE [facility] 16:19:09 [code = INFLUENZA VACCINE] Future Scheduled Test 2022-05-29 COVID-19 VACCINE (#1) [facility] 16:19:09 [code = COVID-19 VACCINE (#1)] Future Scheduled Test 2022-05-29 SHINGLES VACCINES (1 [facility] 16:19:09 of 2) [code = SHINGLES VACCINES (1 of 2)] Future Scheduled Test 2022-05-29 65+ PNEUMOCOCCAL [facility] 16:19:09 VACCINE (1 - PCV) [code = 65+ PNEUMOCOCCAL VACCINE (1 - PCV)] Future Scheduled Test 2022-05-29 INFLUENZA VACCINE [facility] 16:19:09 [code = INFLUENZA VACCINE] Future Scheduled Test 2022-05-29 COVID-19 VACCINE (#1) [facility] 16:19:09 [code = COVID-19 VACCINE (#1)] Future Scheduled Test 2022-05-29 SHINGLES VACCINES (1 [facility] 16:19:09 of 2) [code = SHINGLES VACCINES (1 of 2)] Future Scheduled Test 2022-05-29 65+ PNEUMOCOCCAL [facility] 16:19:09 VACCINE (1 - PCV) [code = 65+ PNEUMOCOCCAL VACCINE (1 - PCV)] Future Scheduled Test 2022-05-29 INFLUENZA VACCINE [facility] 16:19:09 [code = INFLUENZA VACCINE] Future Scheduled Test 2022-03-08 COVID-19 VACCINE (#1) [facility] 05:54:06 [code = COVID-19 VACCINE (#1)] Future Scheduled Test 2022-03-08 SHINGLES VACCINES (1 [facility] 05:54:06 of 2) [code = SHINGLES VACCINES (1 of 2)] Future Scheduled Test 2022-03-08 65+ PNEUMOCOCCAL [facility] 05:54:06 VACCINE (1 - PCV) [code = 65+ PNEUMOCOCCAL VACCINE (1 - PCV)] Future Scheduled Test 2022-03-08 INFLUENZA VACCINE [facility] 05:54:06 [code = INFLUENZA VACCINE] Future Scheduled Test 2022-03-08 COVID-19 VACCINE (#1) [facility] 05:54:06 [code = COVID-19 VACCINE (#1)] Future Scheduled Test 2022-03-08 SHINGLES VACCINES (1 [facility] 05:54:06 of 2) [code = SHINGLES VACCINES (1 of 2)] Future Scheduled Test 2022-03-08 65+ PNEUMOCOCCAL [facility] 05:54:06 VACCINE (1 - PCV) [code = 65+ PNEUMOCOCCAL VACCINE (1 - PCV)] Future Scheduled Test 2022-03-08 INFLUENZA VACCINE [facility] 05:54:06 [code = INFLUENZA VACCINE] Future Scheduled [...] [facility] (#1[facility] [code = [facility] INFLUENZA VACCINE (#1)] Future Scheduled Test 2021-10-11 INFLUENZA VACC[address] [facility] 00:00:00 (#1) [code = Medical Center INFLUENZA VACCINE (#1)] Future Scheduled Test 2017-08-[address] [facility] 00:00:00 measurement Medical Center (procedure) [code = 67782893] Future Scheduled Test 2017-08-[address] [facility] 00:00:00 measurement Medical Center (procedure) [code = 43137566] Future Scheduled Test 2017-08-[address] [facility] 00:00:00 measurement Medical Center (procedure) [code = 79187201] Future Scheduled Test 2017-08-[address] [facility] 00:00:00 measurement Medical Center (procedure) [code = 87391275] Future Scheduled Test 2017-08-[address] [facility] 00:00:00 measurement Medical Center (procedure) [code = 77001438] Future Scheduled Test 2017-08-[address] [facility] 00:00:00 measurement Medical Center (procedure) [code = 43875807] Future Scheduled Test 2017-08-[address] [facility] 00:00:00 measurement [facility] Center (procedure) [code = 21546185] Future Scheduled Test 2017-08-[address] [facility] 00:00:00 measurement Medical Center (procedure) [code = 23391030] Future Scheduled Test 2017-08-[address] [facility] 00:00:00 measurement Medical Center (procedure) [code = 45808345] Future Scheduled Test 2017-08-[address] [facility] 00:00:00 measurement [facility] Center (procedure) [code = 05207503] Future Scheduled Test 2017-08-[address] [facility] 00:00:00 measurement Medical Center (procedure) [code = 75820332] Future Scheduled Test 2017-02-11 MEDICARE ANNUAL [facility] [...] 00:00:00 examination Medical Center (regime/therapy) [code = 282217230] Future Scheduled Test 1951-08-13 Urine screening for [facility] 00:00:00 protein (procedure) Medical Center [code = 228856727] Future Scheduled Test 1951-08-13 DIABETIC EYE EXAM [facility] 00:00:00 [code = DIABETIC EYE Medical Center EXAM] Future Scheduled Test 1951-08-13 Diabetic foot [facility] examination [facility] Center (regime/therapy) [code = 610440826] Future Scheduled Test 1951-08-13 Urine screening for [facility] 00:00:00 protein (procedure) Medical Center [code = 193858865] Future Scheduled Test 1951-08-13 DIABETIC EYE EXAM [facility] 00:00:00 [code = DIABETIC EYE Medical Center EXAM] Future Scheduled Test 1951-08-13 Diabetic foot [facility] examination [facility] Center (regime/therapy) [code = 656272254] Future Scheduled Test 1951-08-13 Urine screening for [facility] 00:00:00 protein (procedure) Medical Center [code = 368995909] Future Scheduled Test 1951-08-13 DIABETIC EYE EXAM [facility] 00:00:00 [code = DIABETIC EYE Medical Center EXAM] Future Scheduled Test 1951-08-13 Diabetic foot [facility] examination Medical Center (regime/therapy) [code = 604960445] Future Scheduled Test 1951-08-13 Urine screening for [facility] 00:00:00 protein (procedure) Medical Center [code = 524121842] Future Scheduled Test 1951-08-13 DIABETIC EYE EXAM [facility] 00:00:00 [code = DIABETIC EYE Medical Center EXAM] Future Scheduled Test 1951-08-13 Diabetic foot [facility] 00:[facility] examination Medical Center (regime/therapy) [code = 881025138] Future Scheduled Test 1951-08-13 Urine screening for [facility] 00:00:00 protein (procedure) Medical Center [code = 780356644] Future Scheduled Test 1951-08-13 DIABETIC EYE EXAM [facility] 00:00:00 [code = DIABETIC EYE Medical Center EXAM] Future Scheduled Test 1951-08-13 Diabetic foot [facility] 00:[facility]:00 examination Medical Center (regime/therapy) [code = 531771748] Future Scheduled Test 1951-08-13 Urine screening for [facility] 00:00:00 protein (procedure) Medical Center [code = 278719388] Future Scheduled Test 1951-08-13 DIABETIC EYE EXAM [facility] 00:00:00 [code = DIABETIC EYE Medical Center EXAM] Future Scheduled Test 1951-08-13 Diabetic foot [facility] 00:[facility]:00 examination Medical Center (regime/therapy) [code = 536098460] Future Scheduled Test 1951-08-13 DIABETIC EYE EXAM [facility] 00:00:00 [code = DIABETIC EYE Medical Center EXAM] Future Scheduled Test 1951-08-13 Diabetic foot [facility] 00:[facility]:00 examination Medical Center (regime/therapy) [code = 617628092] Future Scheduled Test 1951-08-13 Urine screening for [facility] 00:00:00 protein (procedure) Medical Center [code = 404768946] Future Scheduled Test 1951-08-13 Urine screening for [facility] 00:00:00 protein (procedure) Medical Center [code = 592239385] Future Scheduled Test 1951-08-13 DIABETIC EYE EXAM [facility] 00:00:00 [code = DIABETIC EYE Medical Center EXAM] Future Scheduled Test 1951-08-13 Diabetic foot [facility] 00:[facility]:00 examination Medical Center (regime/therapy) [code = 308071519] Future Scheduled Test 1951-08-13 Urine screening for [facility] 00:00:00 protein (procedure) Medical Center [code = 565864769] Future Scheduled Test 1951-08-13 DIABETIC EYE EXAM [facility] 00:00:00 [code = DIABETIC EYE Medical Center EXAM] Future Scheduled Test 1951-08-13 Diabetic foot [facility] 00:[facility]:00 examination Medical Center (regime/therapy) [code = 511552268] Future Scheduled Test 1951-08-13 Urine screening for [facility] 00:00:00 protein (procedure) Medical Center [code = 164519809] Future Scheduled Test 1951-08-13 DIABETIC EYE EXAM [facility] 00:00:00 [code = DIABETIC EYE Medical Center EXAM] Future Scheduled Test 1951-08-13 Diabetic foot [facility] 00:[facility]:00 examination Medical Center (regime/therapy) [code = 981982352] Future Scheduled Test 1951-08-13 Urine screening for [facility] 00:00:00 protein (procedure) Medical Center [code = 362709785] Future Scheduled Test 1946-08-13 PNEUMOCOCCAL 65+ YRS [...] = DXA [facility] 00:00:00 SCAN] [facility] Future Scheduled Test 1940 DXA SCAN [code = DXA [facility] 00:00:00 SCAN] [facility] Future Scheduled Test 1940 DXA SCAN [code = DXA [facility] 00:00:00 SCAN] [facility] Future Scheduled Test 1940 DXA SCAN [code = DXA [facility] 00:00:00 SCAN] [facility] Future Scheduled Test 1940 DXA SCAN [code = DXA [facility] 00:00:00 SCAN] [facility] Future Scheduled Test 1940 DXA SCAN [code = DXA [facility] 00:00:00 SCAN] [facility] Future Scheduled Test 1940 DXA SCAN [code = DXA [facility] 00:00:00 SCAN] [facility] Future Appointment 2027-06-05 Nannette Sylvester [address] [place] [address] 00:00:00 [facility] , [place] [address] Encounters Start End Encounter Admission Attending Care Care Encounter Source Date/Time Date/Time Type Type Clinicians Facility Department ID 2022-04-11 Outpatient Campbell, STLMLC STLMLC [id number] Common 15:39:00 Jacqui 14826 [facility] 2022-03-18 Outpatient Campbell, STLMLC STLMLC [id number] Common 10:09:03 Jacqui 02356 [facility] 2022-03-04 Outpatient Campbell, STLMLC STLMLC [id number] Common 14:03:03 Jacqui 46486 [facility] 2022-02-27 Outpatient Campbell, STLMLC STLMLC [id number] Common 09:36:03 Jacqui 01538 [facility] 2022-02-12 Outpatient Campbell, STLMLC STLMLC [id number] Common 10:34:01 Jacqui 18063 [facility] 2021-09-28 Outpatient Campbell, STLMLC STLMLC [id number] Common 11:23:02 Jacqui [facility] 2021-08-28 Outpatient Campbell, STLMLC STLMLC [id number] Common 10:04:02 Jacqui [facility] 2021-07-17 Outpatient Campbell, STLMLC STLMLC [id number] Common 11:12:01 Jacqui [facility] 2021-06-06 Outpatient Campbell, STLMLC STLMLC [id number] Common 07:42:01 Jacqui [facility] 2021-04-25 Outpatient Campbell, STLMLC STLMLC [id number] Common 09:14:02 Jacqui [facility] 2021-03-14 Outpatient Campbell, STLMLC STLMLC [id number] Common 13:05:01 Jacqui [facility] 2021-03-07 Outpatient Campbell, STLMLC STLMLC [id number] Common 14:40:28 Jacqui [facility] 2020-11-19 Outpatient KACIE CALDERON [facility] Surgery [id number] [facility] 02:33:02 2022-07-18 2022-07-18 Outpatient [facility] PRIV PRIV [id number] [facility] 00:00:00 00:00:00 d_J [id number] Medica l 2022-07-02 2022-07-02 Outpatient [facility]Tod PRIV PRIV [id number] [facility] 00:00:00 00:00:00 d_J [id number] Medica l 2022-07-02 2022-07-02 Outpatient [facility]Tod PRIV PRIV [id number] [facility] 00:00:00 00:00:00 d_J [id number] Medica l 2022-07-02 2022-07-02 Outpatient [facility]Tod PRIV PRIV [id number] [facility] 00:00:00 00:00:00 d_J [id number] Medica l 2022-07-02 2022-07-02 Outpatient [facility]Tod PRIV PRIV [id number] [facility] 00:00:00 00:00:00 d_J [id number] Medica l 2022-07-02 2022-07-02 Outpatient [facility]Tod PRIV PRIV [id number] [facility] 00:00:00 00:00:00 d_J [id number] Medica l 2022-06-28 2022-06-28 Outpatient [facility] PRIV PRIV [id number] [facility] 00:00:00 00:00:00 d_J [id number] Medica l 2022-06-28 2022-06-28 Outpatient [facility] PRIV PRIV [id number] [facility] 00:00:00 00:00:00 d_J [id number] Medica l 2022-06-14 2022-06-14 Outpatient [facility]Tod PRIV PRIV [id number] [facility] 00:00:00 00:00:00 d_J [id number] Medica l 2022-06-14 2022-06-14 Outpatient [facility]Tod PRIV PRIV [id number] [facility] 00:00:00 00:00:00 d_J [id number] Medica l 2022-06-14 2022-06-14 Outpatient [facility]Tod PRIV PRIV [id number] [facility] 00:00:00 00:00:00 d_J [id number] Medica l 2022-05-30 2022-05-30 Outpatient [facility]Tod PRIV PRIV [id number] [facility] 00:00:00 00:00:00 d_J [id number] Medica l 2022-05-30 2022-05-30 Outpatient [facility]Tod PRIV PRIV [id number] [facility] 00:00:00 00:00:00 d_J [id number] Medica l 2022-05-28 2022-05-28 Outpatient [facility]Tod PRIV PRIV [id number] [facility] 00:00:00 00:00:00 d_J [id number] Medica l 2022-05-28 2022-05-28 Outpatient [facility]Tod PRIV PRIV [id number] [facility] 00:00:00 00:00:00 d_J [id number] Medica l 2022-05-28 2022-05-28 Nannette [facility] [id number] [facility] 00:00:00 00:00:00 ARCELIA Sylvester: Health - Med ical [address] [address] , Ph. 2022-01-08 2022-01-08 (TEL) STLMLC STLMLC [id number] [facility] 00:00:00 00:00:00 [facility] 2022-01-01 2022-01-01 OFFICE STLMLC STLMLC [id number] [facility] 00:00:00 00:00:00 VISIT [facility] ESTAB PT - CHI LEVEL 4 [facility] 2021-11-20 2021-11-20 (TEL) STLMLC STLMLC [id number] [facility] 00:00:00 00:00:00 [facility] 2021-10-26 2021-10-26 (TEL) STLMLC STLMLC [id number] [facility] 00:00:00 00:00:00 [facility] 2021-10-02 2021-10-02 OFFICE STLMLC STLMLC [id number] [facility] 00:00:00 00:00:00 VISIT [facility] ESTAB PT - CHI LEVEL [address] [place] [address] 2021-08-17 2021-08-17 (TEL) STLMLC STLMLC [id number] [facility] 00:00:00 00:00:00 [facility] 2021-07-19 2021-07-19 OFFICE STLMLC STLMLC [id number] [facility] 00:00:00 00:00:00 VISIT [facility] ESTAB PT - CHI LEVEL 4 [facility] 2021-07-17 2021-07-17 (TEL) STLMLC STLMLC [id number] [facility] 00:00:00 00:00:00 [facility] 2021-06-05 2021-06-05 OFFICE STLMLC STLMLC [id number] [facility] 00:00:00 00:00:00 VISIT [facility] ESTAB PT - CHI LEVEL 4 [facility] 2021-05-08 2021-05-08 (TEL) STLMLC STLMLC [id number] [facility] 00:00:00 00:00:00 [facility] 2021-04-27 2021-04-27 OFFICE STLMLC STLC [id number] [facility] 00:00:00 00:00:00 VISIT EST Spir it PT LEVEL 3 - CHI [facility] 2021-04-19 2021-04-19 (TEL) STLMLC STLMLC [id number] [facility] 00:00:00 00:00:00 [facility] - CHI [facility] 2021-03-07 2021-03-07 OFFICE STLMLC STLC [id number] [facility] 00:00:00 00:00:00 VISIT [facility] ESTAB PT - CHI LEVEL 4 [facility] 2021-03-07 2021-03-07 [facility] [id number] Common 00:00:00 00:00:00 MCR [facility] WELLNESS - CHI VISIT [facility] 2020-08-08 2020-08-08 [id number] [facility] 00:00:00 23:59:00 [facility] Results Test Description Test Time Test Comments Results Result Comments Source HEMOGLOBIN A1C 2022-01-01 00:00:00 Test Item Value Reference Range Interpretation Comme nts A1C (test code = 4548-4) 10.6 HEMOGLOBIN [id number] 00:00:00 Test Item Value Reference Range Interpretation Comments A1C (test code = 4548-4) 10.3 HEMOGLOBIN [id number] 00:00:00 Test Item Value Reference Range Interpretation Comments A1C (test code = 4548-4) 8.8 HEMOGLOBIN [id number] 00:00:00 Test Item Value Reference Range Interpretation Comments A1C (test code = 4548-4) 9.4 RAD, CHEST, 1 VIEW, NON [id number] 20:01:00Reason for exam:->s/p PPM implantShould this be performed at the bedside?->Yes [facility] 1940 Sex: FFINALREPORT AP chest dated 08/08/2020 Comment: Heart is in upper limits of normal in size. Pulmonary vasculature is unremarkable. Lungs are clear. No pulmonary infiltrate or pleural effusion. AICD is present. No pneumothorax is seen. Signed: [place] Ring MDReport Verified Date/Time: 08/08/2020 20:01:08 Reading Location: [facility] [id number] Consult Reading Room BASIC METABOLIC [id number] 19:57:00 Test Item Value Reference Range Interpretation [...] 697) EGFR (BEAKER) (test 21 mL/min/1.73 ESTIMA OTNI GFR IS code = 1092) sq m NOT ACCURATE CREATININE CLEARANCE IN PREDICTING GLOMERULAR FILTRATION RATE . ESTIMATED GFR I S NOT APPLICABLE FOR DIALYSIS PATIEN TS. Lead Etl Developer ID - FEB CCBC W/PLT COUNT & AUTO [id number] 13:56:00 Test Item Value Reference Range Interpretation [...] (BEAKER) (test code = 2801) URINALYSIS W/ [id number] 14:41:00 Test Item Value Reference Range Interpretation [...] Urine, Straight code = 2795) Catheter POCT-GLUCOSE [id number] 11:21:00 Test Item Value Reference Range Interpretation Comments POC-GLUCOSE METER 167 mg/dL 70-110 H TESTED AT [place] [address] [facility] (test code = TUTU Reese [facility] 1538) [address]83 POCT-GLUCOSE [id number] 08:56:00 Test Item Value Reference Range Interpretation Comments POC-GLUCOSE METER 167 mg/dL 70-110 H TESTED AT [place] [address] (BEAKER) (test code = TUTU Reese [facility] 1538) 11833 POCT-GLUCOSE [id number] 22:03:00 Test Item Value Reference Range Interpretation Comments POC-GLUCOSE METER 128 mg/dL 70-110 H TESTED AT [place] [address] (BEAKER) (test code = TUTU Reese [facility] 1538) 04321 POCT-GLUCOSE [id number] 17:31:00 Test Item Value Reference Range Interpretation Comments POC-GLUCOSE METER 141 mg/dL 70-110 H TESTED AT [place] [address] (BEAKER) (test code = TUTU Reese [facility] 1538) [address]23 POCT-GLUCOSE [id number] 11:58:00 Test Item Value Reference Range Interpretation Comments POC-GLUCOSE METER 159 mg/dL 70-110 H TESTED AT [place] [address] ([facility]) (test code = TUTU Reese [facility] 1538) 0[address] POCT-GLUCOSE [id number] 07:47:00 Test Item Value Reference Range Interpretation Comments POC-GLUCOSE METER 115 mg/dL 70-110 H TESTED AT [place] [address] ([facility]) (test code = TUTU Reese [facility] 1538) 77052 POCT-GLUCOSE [id number] 21:03:00 Test Item Value Reference Range Interpretation Comments POC-GLUCOSE METER 177 mg/dL 70-110 H TESTED AT [place] [address] ([facility]) (test code = TUTU Reese [facility] 1538) 50927 POCT-GLUCOSE [id number] 16:23:00 Test Item Value Reference Range Interpretation Comments POC-GLUCOSE METER 185 mg/dL 70-110 H TESTED AT [place] [address] ([facility]) (test code = TUTU Reese [facility] 1538) 69324 POCT-GLUCOSE [id number] 12:04:00 Test Item Value Reference Range Interpretation Comments POC-GLUCOSE METER 208 mg/dL 70-110 H TESTED AT [place] [address] ([facility]) (test code = TUTU Reese [facility] 1538) 89443 POCT-GLUCOSE [id number] 07:51:00 Test Item Value Reference Range Interpretation Comments POC-GLUCOSE METER 127 mg/dL 70-110 H TESTED AT [place] [address] ([facility]) (test code = TUTU Reese [facility] 1538) 23613 POCT-GLUCOSE [id number] 20:44:00 Test Item Value Reference Range Interpretation Comments POC-GLUCOSE METER 225 mg/dL 70-110 H TESTED AT [place] [address] ([facility]) (test code = TUTU Reese [facility] 1538) 81414 POCT-GLUCOSE [id number] 17:52:00 Test Item Value Reference Range Interpretation Comments POC-GLUCOSE METER 150 mg/dL 70-110 H TESTED AT [place] [address] ([facility]) (test code = TUTU Reese [facility] 1538) 73364 POCT-GLUCOSE [id number] 12:45:00 Test Item Value Reference Range Interpretation Comments POC-GLUCOSE METER 176 mg/dL 70-110 H TESTED AT [place] [address] ([facility]) (test code = TUTU [place]ese [place] 1538) [address] POCT-GLUCOSE [id number] 07:41:00 Test Item Value Reference Range Interpretation Comments POC-GLUCOSE METER 147 mg/dL 70-110 H TESTED AT [place] [address] ([facility]) (test code = TUTU [place]ese [place] 1538) 58083 POCT-GLUCOSE [id number] 20:42:00 Test Item Value Reference Range Interpretation Comments POC-GLUCOSE METER 194 mg/dL 70-110 H TESTED AT [place] [address] ([facility]) (test code = TUTU [place]ese [place] 1538) [address] POCT-GLUCOSE [id number] 17:33:00 Test Item Value Reference Range Interpretation Comments POC-GLUCOSE METER 174 mg/dL 70-110 H TESTED AT [place] [address] ([facility]) (test code = TUTU Reese [place] 1538) [address] POCT-GLUCOSE [id number] 12:14:00 Test Item Value Reference Range Interpretation Comments POC-GLUCOSE METER 153 mg/dL 70-110 H TESTED AT [place] [address] ([facility]) (test code = TUTU [place]ese [place] 1538) [address] POCT-GLUCOSE [id number] 07:55:00 Test Item Value Reference Range Interpretation Comments POC-GLUCOSE METER 220 mg/dL 70-110 H TESTED AT [place] [address] ([facility]) (test code = TUTU [place]ese [place] 1538) [address]37 POCT-GLUCOSE [id number] 20:50:00 Test Item Value Reference Range Interpretation Comments POC-GLUCOSE METER 241 mg/dL 70-110 H TESTED AT [place] [address] ([facility]) (test code = LUISALESLY [place]ese [place] 1538) 25986 POCT-GLUCOSE [id number] 16:54:00 Test Item Value Reference Range Interpretation Comments POC-GLUCOSE METER 218 mg/dL 70-110 H TESTED AT [place] [address] ([facility]) (test code = LUISALESLY Hugh [place] 1538) [address] POCT-GLUCOSE [id number] 11:45:00 Test Item Value Reference Range Interpretation Comments POC-GLUCOSE METER 257 mg/dL 70-110 H TESTED AT [facility] 6720 (BEAKER) (test code = TUTU Reese [place] 1538) [address] POCT-GLUCOSE [id number] 07:57:00 Test Item Value Reference Range Interpretation Comments POC-GLUCOSE METER 219 mg/dL 70-110 H TESTED AT [facility] 6720 (BEAKER) (test code = TUTU Reese [place] 1538) [address] BASIC METABOLIC [id number] 06:05:00 Test Item Value Reference Range Interpretation [...] PATIEN TS. CBC W/PLT COUNT & AUTO [id number] 05:42:00 Test Item Value Reference Range Interpretation [...] PERCENT (BEAKER) (test code = 2801) POCT-GLUCOSE [id number] 20:57:00 Test Item Value Reference Range Interpretation Comments POC-GLUCOSE METER 301 mg/dL 70-110 H Notified Hugh Hudson MD/TESTED (SHAVONNE) (test code = AT [facility] [address] [place] 1538) [facility] 7703 0 POCT-GLUCOSE [id number] 15:57:00 Test Item Value Reference Range Interpretation Comments POC-GLUCOSE METER 292 mg/dL 70-110 H TESTED AT [facility] 67 ([facility]) (test code = TUTU Reese [facility] 1538) 39713 POCT-GLUCOSE [id number] 13:36:00 Test Item Value Reference Range Interpretation Comments POC-GLUCOSE METER 181 mg/dL 70-110 H TESTED AT [place] [address] ([facility]) (test code = TUTU Reese [facility] 1538) 65736 POCT-GLUCOSE [id number] 07:46:00 Test Item Value Reference Range Interpretation Comments POC-GLUCOSE METER 172 mg/dL 70-110 H TESTED AT [place] [address] ([facility]) ([facility] = [facility] 1538) 40853 POCT-GLUCOSE [id number] 21:03:00 Test Item Value Reference Range Interpretation Comments POC-GLUCOSE METER 195 mg/dL 70-110 H TESTED AT [place] [address] ([facility]) (test code = [facility] Hugh [facility] 1538) 39880 POCT-GLUCOSE [id number] 16:41:00 Test Item Value Reference Range Interpretation Comments POC-GLUCOSE METER 198 mg/dL 70-110 H TESTED AT [place] [address] ([facility]) (test code = [facility] Hugh [facility] 1538) 65291 POCT-GLUCOSE [id number] 12:08:00 Test Item Value Reference Range Interpretation Comments POC-GLUCOSE METER 241 mg/dL 70-110 H TESTED AT [place] [address] ([facility]) (test code = [facility] Hugh [facility] 1538) 72451 POCT-GLUCOSE [id number] 08:27:00 Test Item Value Reference Range Interpretation Comments POC-GLUCOSE METER 300 mg/dL 70-110 H TESTED AT [place] [address] ([facility]) (test code = [facility] 1538) 605[address] BASIC METABOLIC [id number] 05:56:00 Test Item Value Reference Range Interpretation [...] NOT APPLICABLE FOR DIALYSIS PATIEN TS. PROTHROMBIN [id number] 04:54:00 Test Item Value Reference Range Interpretation Comments PROTIME (BEAKER) (test code = 14.5 seconds 11.7-14.7 759) INR (BEAKER) (test code = 370) 1.1 <=5.9 RECOMMENDED COUMADIN/WARFARIN INR THERAPY RANGESSTANDARD DOSE: 2.0 - 3.0 Includes: PROPHYLAXIS for venous thrombosis, systemic embolization; TREATMENT for venous thrombosis and/or pulmonary embolus.HIGH RISK: Target INR is 2.5-3.5 for patients with mechanical heart valves.CBC W/PLT COUNT & AUTO [id number] 04:50:00 Test Item Value Reference Range Interpretation [...] PERCENT (BEAKER) (test code = 2801) POCT-GLUCOSE [id number] 22:08:00 Test Item Value Reference Range Interpretation Comments POC-GLUCOSE METER 285 mg/dL 70-110 H TESTED AT [place] [address] ([facility]) (test code = [facility] 1538) 82515 POCT-GLUCOSE [id number] 16:19:00 Test Item Value Reference Range Interpretation Comments POC-GLUCOSE METER 230 mg/dL 70-110 H TESTED AT [place] [address] ([facility]) (test code = [facility] 1538) 13866 RAD, ANKLE, MIN 3 VIEWS, [id number] 12:27:00Reason for exam:->pain edema following fallFINAL REPORT Clinical history: pain edema following fall TECHNIQUE: 3 views of the right ankle COMPARISON: None IMPRESSION: There is soft tissue swelling over the medial malleolus.There is no evidence of fracture or dislocation. There are dorsal and plantar calcaneal spurs. Thereare vascular calcifications. Signed: Car Heller MDReport Verified Date/Time: 02/04/2017 12:27:23 Reading Location: [facility] Room Electronically signed by: CAR HELLER M.D.on 02/04/2017 12:27 PMPOCT- GLUCOSE [id number] 11:55:00 Test Item Value Reference Range Interpretation Comments POC-GLUCOSE METER 204 mg/dL 70-110 H TESTED AT [facility] 6720 (BEAKER) (test code = TUTU Reese [place] 1538) [address] POCT-GLUCOSE [id number] 08:00:00 Test Item Value Reference Range Interpretation Comments POC-GLUCOSE METER 217 mg/dL 70-110 H TESTED AT [facility] 6720 (BEAKER) (test code = TUTU Reese [place] 1538) [address] [id number] 07:14:00 Test Item Value Reference Range Interpretation Comments PHOSPHORUS (BEAKER) (test code = 3.8 mg/dL 2.3-4.7 604) [id number] 07:14:00 Test Item Value Reference Range Interpretation Comments MAGNESIUM (BEAKER) (test code = 1.7 mg/dL 1.6-2.6 627) BASIC METABOLIC [id number] 07:14:00 Test Item Value Reference Range Interpretation [...] NOT APPLICABLE FOR DIALYSIS PATIEN TS. POCT-GLUCOSE [id number] 22:31:00 Test Item Value Reference Range Interpretation Comments POC-GLUCOSE METER 288 mg/dL 70-110 H TESTED AT [facility] 6720 ([facility]) (test code = TUTU [place] 1538) [address] POCT-GLUCOSE [id number] 17:03:00 Test Item Value Reference Range Interpretation Comments POC-GLUCOSE METER 268 mg/dL 70-110 H TESTED AT [facility] 6720 [facility] (test code = TUTU [place] 1538) 57478 POCT-GLUCOSE [id number] 12:31:00 Test Item Value Reference Range Interpretation Comments POC-GLUCOSE METER 214 mg/dL 70-110 H TESTED AT [facility] 6720 ([facility]) (test code = TUTU Reese [facility] 1538) [address] CT, BRAIN, WITHOUT [id number] 09:22:00FINAL REPORT CT head without contrast INDICATION: [...] Ibarra Verified Date/Time: 02/03/2017 09:22:48 Reading Location: [facility] C013V Neuro Reading Room POCT-GLUCOSE [id number] 07:19:00 Test Item Value Reference Range Interpretation Comments POC-GLUCOSE METER 218 mg/dL 70-110 H TESTED AT [facility] 6720 (BEAKER) (test code = TUTU [place] 1538) [address] [id number] 06:12:00 Test Item Value Reference Range Interpretation Comments PHOSPHORUS (BEAKER) (test code = 3.1 mg/dL 2.3-4.7 604) [id number] 06:12:00 Test Item Value Reference Range Interpretation Comments MAGNESIUM (BEAKER) (test code = 1.6 mg/dL 1.6-2.6 627) BASIC METABOLIC [id number] 06:12:00 Test Item Value Reference Range Interpretation [...] NOT APPLICABLE FOR DIALYSIS PATIEN TS. POCT-GLUCOSE [id number] 23:10:00 Test Item Value Reference Range Interpretation Comments POC-GLUCOSE METER 239 mg/dL 70-110 H TESTED AT [facility] 6720 (BEAKER) (test code = LUISALESLY [place] 1538) 0[address] POCT-GLUCOSE [id number] 17:20:00 Test Item Value Reference Range Interpretation Comments POC-GLUCOSE METER 291 mg/dL 70-110 H TESTED AT [facility] 6720 (BEAKER) (test code = LUISALESLY [place]ese [place] 1538) 11872 POCT-GLUCOSE [id number] 12:39:00 Test Item Value Reference Range Interpretation Comments POC-GLUCOSE METER 274 mg/dL 70-110 H TESTED AT [facility] 6720 [facility] (test code = TUTU [place] 1538) [address]37 POCT-GLUCOSE [id number] 11:35:00 Test Item Value Reference Range Interpretation Comments POC-GLUCOSE METER 289 mg/dL 70-110 H TESTED AT [facility] 6720 (DAO) (test code = TUTU [place] 1538) 9[address]31 POCT-GLUCOSE [id number] 11:07:00 Test Item Value Reference Range Interpretation Comments POC-GLUCOSE METER 271 mg/dL 70-110 H TESTED AT [facility] 6720 [facility] (test code = TUTU Reese [facility] 1538) [address] CT, BRAIN, WITHOUT [id number] 10:51:00FINAL REPORT CT head without contrast INDICATION: [...] findings as discussed above. Signed: Charanjit Ibarra Verified Date/Time: 02/02/2017 10:51:15 Reading Location: [address] Neuro Reading Room [id number] 06:07:00 Test Item Value Reference Range Interpretation Comments PHOSPHORUS (BEAKER) (test code = 3.2 mg/dL 2.3-4.7 604) [id number] 06:07:00 Test Item Value Reference Range Interpretation Comments MAGNESIUM (BEAKER) (test code = 2.4 mg/dL 1.6-2.6 627) BASIC METABOLIC [id number] 06:07:00 Test Item Value Reference Range Interpretation [...] NOT APPLICABLE FOR DIALYSIS PATIEN TS. POCT-GLUCOSE [id number] 21:34:00 Test Item Value Reference Range Interpretation Comments POC-GLUCOSE METER 331 mg/dL 70-110 H TESTED AT [facility] 6720 (BEAKER) (test code = TUTU [place] 1538) 27981 HEMOGLOBIN [id number] 14:53:00 Test Item Value Reference Range Interpretation Comments HEMOGLOBIN A1C (BEAKER) (test code = 14.8 % 4.3-6.1 H 368) POCT-GLUCOSE [id number] 11:57:00 Test Item Value Reference Range Interpretation Comments POC-GLUCOSE METER 232 mg/dL 70-110 H TESTED AT [facility] 6720 [facility] (test code = TUTU [place] 1538) [address] [id number] 11:44:00 Test Item Value Reference Range Interpretation Comments PHOSPHORUS (BEAKER) (test code = 3.0 mg/dL 2.3-4.7 604) [id number] 11:44:00 Test Item Value Reference Range Interpretation Comments MAGNESIUM (BEAKER) (test code = 1.3 mg/dL 1.6-2.6 L 627) BASIC METABOLIC [id number] 11:44:00 Test Item Value Reference Range Interpretation [...] PATIEN TS. CBC W/PLT COUNT & AUTO [id number] 11:18:00 Test Item Value Reference Range Interpretation [...] PERCENT (BEAKER) (test code = 2801) POCT-GLUCOSE [id number] 08:37:00 Test Item Value Reference Range Interpretation Comments POC-GLUCOSE METER 269 mg/dL 70-110 H TESTED AT [facility] 6720 (BEAKER) (test code = TUTU [place] 1538) 15887 LIPID [id number] 03:12:00 Test Item Value Reference Range Interpretation [...] (test code = Nonreactive Nonreactive 420) POCT-GLUCOSE [id number] 01:15:00 Test Item Value Reference Range Interpretation Comments POC-GLUCOSE METER 297 mg/dL 70-110 H TESTED AT [facility] 6720 (DAO) (test code = TUTU Reese [facility] 1538) 06194 POCT-GLUCOSE [id number] 22:01:00 Test Item Value Reference Range Interpretation Comments POC-GLUCOSE METER 354 mg/dL 70-110 H Notified R Becca SHOEMAKER/TESTED (DAO) (test code = AT [facility] [address] [facility] 1538) [facility] 7703 0 MR, BRAIN, WITHOUT [id number] 20:46:00Reason for exam:->Ischemic Stroke EvaluationFINAL REPORT MRI [...] MDReport Verified Date/Time: 01/31/2017 20:46:20 Reading Location: [facility]iology Reading Room MR, MRA, BRAIN, WITHOUT [id number] 20:36:00 Reason for exam:->Ischemic Stroke EvaluationFINAL REPORT MRA head and neck without contrast INDICATION: Stroke TECHNIQUE: 2-D and 3-D iivu-eo-ilvzee MRA images of the intra- and extracranial [...] left vertebral artery is not imaged. 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 Mild to moderate left vertebrobasilar confluence, moderate mid basilar artery and severe right and moderate left proximal MARINE ENGINE [employer]IVER stenoses are present. There are suspected severe left supraclinoid ICA stenosis with signal loss. There are mild stenoses of the left proximal MCA and TRUDY origins. No other flow limiting proximal [place] vessels stenosis is seen. Motion [...] severe left supraclinoid ICA and proximal right MARINE ENGINE DRIVER stenoses. 4. No hemodynamically significant cervical carotid artery stenosis by NASCET criteria. Signed: Charanjit Ibarra MDReport Verified Date/Time: 01/31/2017 20:36:02 Reading Location: [facility] Radiology ReadingRoom MR, MRA, NECK, WITHOUT IV [id number] 20:36:00Reason for exam:->Ischemic Stroke EvaluationFINAL REPORT MRA head and neck without contrast INDICATION: Stroke TECHNIQUE: 2-D and 3-D pmaz-yo-itwopd MRA images of the intra- and extracranial [...] left vertebral artery is not imaged. 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 Mild to moderate left vertebrobasilar confluence, moderate mid basilar artery and severe right and moderate left proximal MARINE ENGINE DRIVER stenoses are present. There are suspected severe left supraclinoid ICA stenosis with signal loss. There are mild stenoses of the left proximal MCA and TRUDY or igins. No other flow limiting proximal [place] vessels stenosis is seen. Motion [...] severe left supraclinoid ICA and proximal right MARINE ENGINE DRIVER stenoses. 4. No hemodynamically significant cervical carotid artery stenosis by NASCET criteria. Signed: Charanjti Ibarra MDReport Verified Date/Time: 01/31/2017 20:36:02 Reading Location: [facility] Radiology ReadingRoom VITAMIN B12 AND [id number] 13:11:00 Test Item Value Reference Range Interpretation Comments VITAMIN B12 (BEAKER) (test code = 551 pg/mL 213-816 774) FOLATE (BEAKER) (test code = 362) 15.7 ng/mL >=7.0 [id number] 10:22:00 Test Item Value Reference Range Interpretation Comments HOMOCYSTEINE (BEAKER) (test code = 7.0 umol/L 5.1-15.4 642) POCT-GLUCOSE [id number] 08:22:00 Test Item Value Reference Range Interpretation Comments POC-GLUCOSE METER 200 mg/dL 70-110 H TESTED AT [facility] 6720 (BEAKER) (test code = LUISALESLY [place] 1538) [address] T4, [id number] 07:04:00 Test Item Value Reference Range Interpretation Comments FREE T4 (BEAKER) (test code = 655) 1.28 ng/dL 0.70-1.48 TSH/FREE T4 IF [id number] 06:34:00 Test Item Value Reference Range Interpretation Comments THYROID STIMULATING HORMONE 0.22 uIU/mL 0.35-4.94 L (BEAKER) (test code = 772) BASIC METABOLIC [id number] 05:53:00 Test Item Value Reference Range Interpretation [...] 697) EGFR (BEAKER) (test 74 mL/min/1.73 ESTIMA TNOI GFR IS code = 1092) sq m NOT ACCURATE CREATININE CLEARANCE IN PREDICTING GLOMERULAR FILTRATION RATE . ESTIMATED GFR I S NOT APPLICABLE FOR DIALYSIS PATIEN TS. CBC W/PLT COUNT & AUTO [id number] 05:31:00 Test Item Value Reference Range Interpretation [...] 0-1 PERCENT (BEAKER) (test code = 2801) Notes Date/Time Note Provider Source 2020-08-10 15:05:16-00:00 KACIE CALDERON OPERATIVE/PROCEDURE REPORT [place] FACILITY: [facility] Billing #: [id number] Room: [facility] MR #: [id number] : 1940 DATE OF PROCEDURE: 08/08/2020 SURGEON: Kacie Calderon MD PREOPERATIVE DIAGNOSES: 1. Symptomatic bradycardia with 10 second pauses and syncope, required medical therapy. 2. Status post implantable loop recorder implant ation. POSTOPERATIVE DIAGNOSES: 1. Status post dual-chamber pacemaker implantati on (Medtronic dual-chamber system). 2. Status post explantation of implantable loop recorder. PROCEDURES: 1. Dual-chamber pacemaker implantation in the le ft prepectoral position. 2. Explantation of implantable loop recorder. 3. Left subclavian vein venogram. ANESTHESIA: Lidocaine, Versed, and fentanyl. COMPLICATIONS: None. DESCRIPTION OF PROCEDURE: The patient was андрей t to the Electrophysiology Laboratory. Left upper chest w as prepped and draped in a standard manner. Local Xylocaine was used. Standard incision was made. Pacemaker pocket was performed in usual manner. Left subclavian access was achieve d and standard leads were advanced. After documentation of adeq uate pacing and sensing thresholds, the leads were anchored in a standard manner. The pocket was rinsed with antibiotic so lution. The device was connected and placed in the pocket an d secured. The wound was closed in a standard manner. Skin was closed in subcuticular fashion. The Reveal LINQ implantabl e loop recorder was then explanted in the usual manner. There were no complications. A left subclavian vein venogram w as performed for access to the left subclavian vein. There we re no complications. MATT/LAYLA /[id number] 2017-02-06 18:18:00-00:00 KACIE CALDERONC REPORT OF PROCEDURE [place] FACILITY: [facility] BILLING #: [id number] ROOM: 6CB [id number] MR #: [id number] : 1940 DATE OF PROCEDURE: 02/06/2017 SURGEON: Kacie Calderon MD PREOPERATIVE DIAGNOSES 1. Cryptogenic stroke. 2. Suspected atrial fibrillation. POSTOPERATIVE DIAGNOSIS: Status post Reveal LINQ implantation. OPERATIVE PROCEDURE: Reveal LINQ implantation. ANESTHESIA: Local Xylocaine. COMPLICATIONS: None. BLOOD LOSS: Negligible. SPECIMENS: None. PROCEDURE: The left chest was prepped draped in standard manner. Local Xylocaine anesthesia was used. A Reveal LINQ was placed in left chest subcutaneous tissue without complications. MATT/christian P P Job#: [id number] Doc#: [id number] FN: [id number] cc: Kacie Calderon MD 2017-02-05 21:30:00-00:00 KACIE CALDERON [facility] REPORT OF PROCEDURE [place] FACILITY: [facility] BILLING #: [id number] ROOM: 6CB [id number] MR #: [id number] : 1940 DATE OF PROCEDURE: 02/05/2017 SURGEON: Kacie Calderon MD PREOPERATIVE DIAGNOSIS: Recurrent supraventricul ar tachycardia. POSTOPERATIVE DIAGNOSIS: Inducible malignant ree ntry tachycardia, status post ablation of slow pathway. OPERATIVE PROCEDURES 1. Electrophysiology testing with left atrial re cordings. 2. NavX anatomical mapping of the slow pathway r egion. 3. Radiofrequency catheter ablation for atrioven tricular node reentry. 4. Isoproterenol drug study. ANESTHESIA: Lidocaine, Versed, and fentanyl. COMPLICATIONS: Transient AV block with recurrent to normal and recurrent of AH to normal. PROCEDURE: The patient brought to the electrophy siology laboratory. The right and left groins were prepped and draped in a standard manner. Local Xylocaine anesthesia used. The patient was sedat ed by cardiovascular anesthesia as well. Standard sheaths were placed , standard catheter advanced including coronary sinus catheter, His bundle ca theter, and right ventricular catheter. Baseline recordings were normal with e xception of borderline 1st-degree AV block, baseline AH interval was 95 to 100 milliseconds. With ventricular program stimulation, there was right bundle-branch block aberrancy consistent with a clinical tachycardia . Following isoproterenol infusion with repeat pacing maneuvers, there was inducible AV node reentry tachycardia, which was confirmed by standard pac ing maneuvers. There was right bundle-branch block aberrancy predominantl y noted. The slow pathway region was mapped and ablated. There was transie nt AV block identified with prompt hindu of normal conduction and recu rrent of conduction intervals to normal. There was subsequent no inducible tac hycardia and no sustained slow pathway conduction. Procedure was terminate d. No complication. MATT/christian P P Job#: [id number] Doc#: [id number] FN: [id number] cc: Kacie Calderon MD
--- NOTE | 2022-07-22 19:37 | EDPHYS ---
Physician Documentation [facility] Name: Rebecca Hazel Age: 81 yrs Sex: Female : 1940 Arrival Date: 07/22/2022 Time: 18:29 Bed 7 Private MD: ED Physician Carlton Nelson HPI: 07/22 19:36 This 81 yrs old Female presents to ER via EMS with complaints of Wound Infection. kdr 19:37 Patient was sent from [facility] to the ED for infection of her left kdr great toe. She has seen Dr. Caceres earlier today and he is requested that she be sent over to the hospital for further evaluation and treatment. Family reports that the patient has had a prior arterial Doppler which apparently did not show any diminished flow to the toe. Apparently Dr. Caceres was skeptical of this finding and suggested again that the patient be brought for for further evaluation and treatment. Patient presents nonacute nontoxic but with clearly a gangrenous tip of the left toe. Patient had been on antibiotics up until about 2 weeks ago. She probably had a short course of doxycycline for 7 to 10 days prior to that. Patient is otherwise in her usual state of health aside from her noted hypertension on admission.. Onset: The symptoms/episode began/occurred gradually, 1 month(s) ago. Severity of symptoms: At their worst the symptoms were mild in the emergency department the symptoms are unchanged. The patient has experienced similar episodes in the past, chronically. The patient has been recently seen by a physician: Dr. Dr. Caceres. Historical: - Allergies: 18:45 No Known Allergies; ph - PMHx: 18:33 Diabetes - IDDM; Hypertension; Hypothyroidism; stroke with right sided weakness; TIA; ss - PSHx: 18:33 pacemaker; ss - Immunization history:: Adult Immunizations unknown. - Social history:: Smoking status: Patient denies any tobacco usage or history of. ROS: 19:37 Constitutional: Negative for fever, chills, and weight loss, Eyes: Negative for injury, kdr pain, redness, and discharge. 19:37 MS/extremity: Positive for Gangrene to the tip of the left great toe. Exam: 19:37 Constitutional: This is a well developed, well nourished patient who is awake, alert, kdr and in no acute distress. 19:37 Musculoskeletal/extremity: Extremities: grossly normal except: noted in the medial aspect of left toes and Left first toenail: Obvious gangrene to the tip of the toe. Vital Signs: 18:37 BP 221 / 71; Pulse 54; Resp 18; Temp 97.4; Pulse Ox 100% on R/A; Weight 110 kg; Height ph 5 ft. 6 in. ; 19:40 BP 186 / 74; Pulse 54; Resp 16; Pulse Ox 99% on R/A; jb4 20:41 BP 228 / 74; Pulse 55; Resp 16; Pulse Ox 100% on R/A; jb4 21:04 BP 199 / 77; Pulse 55; Resp 16; Pulse Ox 99% on R/A; jb4 18:37 Body Mass Index 39.14 (110.00 kg, 167.64 cm) ph 18:37 has not had evening BP meds ph MDM: 19:36 Patient medically screened. kdr 19:39 Data reviewed: vital signs, nurses notes, lab test result(s), radiologic studies. [facility] 07/22 19:11 Order name: CBC with Diff; Complete Time: 20:16 kdr 07/22 19:11 Order name: CMP; Complete Time: 20:16 [facility] 07/22 19:11 Order name: Foot Left 3 View XRAY; Complete Time: 21:38 [facility] 07/22 20:20 Order name: Extremity Venous [place] [id number] 07/22 20:20 Order name: Lower Extremity Artery [place] [id number] 07/22 21:51 Order name: [facility] 07/22 21:53 Order name: [facility] Administered Medications: 19:53 Not Given (Other Intervention Used): cloNIDine PO 0.2 mg PO once jb4 19:53 Drug: cloNIDine PO 0.1 mg Route: PO; jb4 20:00 Drug: Rocephin - Rocephin (cefTRIAXone) IVPB 1 grams Route: IVPB; Infused Over: 30 jb4 mins; Site: left forearm; 20:40 Drug: vancoMYCIN IVPB 1 grams Route: IVPB; Infused Over: 2 hrs; Site: left forearm; jb4 20:40 Drug: cloNIDine PO 0.1 mg Route: PO; jb4 Disposition Summary: 07/22/22 19:36 Hospitalization Ordered Hospitalization Status: Inpatient Admission kdr Provider: Zayda Khan Location: Telemetry/MedSurg (Inpatient) kdr Condition: Fair kdr Problem: an ongoing problem kdr Symptoms: are unchanged kdr Bed/Room Type: Standard kdr Room Assignment: 228(07/22/22 20:54) cg Diagnosis - Gangrene left great toe kdr Forms: - Medication Reconciliation Form kdr - SBAR form kdr Signatures: Dispatcher [employer] Carlton Alejandre MD MD kdr Cat Edwards RN RN Deysi Mcmahon RN RN Hoa Agudelo RN RN cg Bryson, James, RN RN jb4 Brown, Sophia, PA-C PA-C sb4 Corrections: (The following items were deleted from the chart) 20:54 19:36 kdr cg
--- NOTE | 2022-07-22 19:37 | ER ---
Nurse's Notes [facility] Name: Rebecca Hazel Age: 81 yrs Sex: Female : 1940 Arrival Date: 07/22/2022 Time: 18:29 Bed 7 Private MD: Diagnosis: Gangrene left great toe Presentation: 07/22 18:37 Chief complaint: EMS states: From [facility], sent to ED for infected L ph great toe and decreased pulses to L foot, VSS. Coronavirus screen: Vaccine status: Patient reports receiving the 1st dose of the Covid vaccine. Ebola Screen: No symptoms or risks identified at this time. Initial Sepsis Screen: Does the patient meet any 2 criteria? No. Patient's initial sepsis screen is negative. Does the patient have a suspected source of infection? Yes: Skin breakdown/wound. Risk Assessment: Do you want to hurt yourself or someone else? Patient reports no desire to harm self or others. Onset of symptoms was July 22, 2022. 18:37 Method Of Arrival: EMS: [facility] 18:37 Acuity: DENNIS 3 ph Triage Assessment: 18:41 General: Appears in no apparent distress. Behavior is calm, cooperative, appropriate ph for age. Pain: Denies pain. Neuro: Level of Consciousness is awake, alert, obeys commands, Oriented to person, place, time, situation. Cardiovascular: Capillary refill < 3 seconds in bilateral fingers Patient's skin is warm and dry. Respiratory: Airway is patent Respiratory effort is even, unlabored, Respiratory pattern is regular, symmetrical. Derm: Skin is pink, warm \T\ dry. Derm: L great toe noted to be blackened in appearance w/ some drainage. Historical: - Allergies: 18:45 No Known Allergies; ph - PMHx: 18:33 Diabetes - IDDM; Hypertension; Hypothyroidism; stroke with right sided weakness; TIA; ss - PSHx: 18:33 pacemaker; ss - Immunization history:: Adult Immunizations unknown. - Social history:: Smoking status: Patient denies any tobacco usage or history of. Screenin:10 Abuse screen: Denies threats or abuse. Denies injuries from another. Nutritional ph screening: No deficits noted. Tuberculosis screening: No symptoms or risk factors identified. Assessment: 19:15 General: Appears in no apparent distress. comfortable. Pain: Denies pain. Neuro: Level jb4 of Consciousness is awake, alert, obeys commands, Oriented to person, place, time, situation. Cardiovascular: Patient's skin is warm and dry. Respiratory: Airway is patent Respiratory effort is even, unlabored, Respiratory pattern is regular, symmetrical. GI: No signs and/or symptoms were reported involving the gastrointestinal system. : No signs and/or symptoms were reported regarding the genitourinary system. EENT: No signs and/or symptoms were reported regarding the EENT system. Derm: Skin is intact, Skin is pink, warm \T\ dry. Musculoskeletal: Circulation, motion, and sensation intact. Range of motion: limited in right shoulder, right elbow and right wrist Swelling present in right arm. 20:00 Reassessment: Patient appears in no apparent distress at this time. Patient and/or jb4 family updated on plan of care and expected duration. Pain level reassessed. Patient is alert, oriented x 3, equal unlabored respirations, skin warm/dry/pink. 20:41 Reassessment: Patient appears in no apparent distress at this time. Patient and/or jb4 family updated on plan of care and expected duration. Pain level reassessed. Patient is alert, oriented x 3, equal unlabored respirations, skin warm/dry/pink. 21:04 Reassessment: Patient appears in no apparent distress at this time. Patient and/or jb4 family updated on plan of care and expected duration. Pain level reassessed. Patient is alert, oriented x 3, equal unlabored respirations, skin warm/dry/pink. Vital Signs: 18:37 BP 221 / 71; Pulse 54; Resp 18; Temp 97.4; Pulse Ox 100% on R/A; Weight 110 kg; Height ph 5 ft. 6 in. ; 19:40 BP 186 / 74; Pulse 54; Resp 16; Pulse Ox 99% on R/A; jb4 20:41 BP 228 / 74; Pulse 55; Resp 16; Pulse Ox 100% on R/A; jb4 21:04 BP 199 / 77; Pulse 55; Resp 16; Pulse Ox 99% on R/A; jb4 18:37 Body Mass Index 39.14 (110.00 kg, 167.64 cm) ph 18:37 has not had evening BP meds ph ED Course: 18:33 Patient arrived in ED. ss 18:40 Triage completed. ph 18:40 Arm band placed on Patient placed in an exam room, on a stretcher, on pulse oximetry. ph 18:45 Patient has correct armband on for positive identification. Call light in reach. Side ph rails up X2. Pulse ox on. NIBP on. 18:47 Carlton Nelson MD is Attending Physician. kdr 19:22 David Conner, RN is Primary Nurse. jb4 19:35 Zayda Khan MD is Hospitalizing Provider. kdr 19:56 Foot Left 3 View XRAY In Process Unspecified. EDMS 22:05 No provider procedures requiring assistance completed. Patient admitted, IV remains in jb4 place. Administered Medications: 19:53 Not Given (Other Intervention Used): cloNIDine PO 0.2 mg PO once jb4 19:53 Drug: cloNIDine PO 0.1 mg Route: PO; jb4 20:00 Drug: Rocephin - Rocephin (cefTRIAXone) IVPB 1 grams Route: IVPB; Infused Over: 30 jb4 mins; Site: left forearm; 20:40 Drug: vancoMYCIN IVPB 1 grams Route: IVPB; Infused Over: 2 hrs; Site: left forearm; jb4 20:40 Drug: cloNIDine PO 0.1 mg Route: PO; jb4 Medication: 19:11 VIS not applicable for this client. ph Outcome: 19:36 Decision to Hospitalize by Provider. kdr 22:05 Admitted to Med/surg accompanied by tech, via stretcher, room 228, with chart, Report jb4 called to THAIS Adams 22:05 Condition: stable 22:05 Discharge instructions given to patient, family, Instructed on the need for admit, Demonstrated understanding of instructions. 22:05 Patient left the ED. jb4 Signatures: Dispatcher [employer] EDWY Carlton Nelson MD MD kdr Cat Edwards RN RN Deysi Mcmahon RN RN David Conner, THAIS RN jb4 Corrections: (The following items were deleted from the chart) 18:40 18:37 BP 221 / 71; Pulse 54bpm; Resp 18bpm; Pulse Ox 100% RA; Temp 97.4F; 110 kg; ph Height 5 ft. 6 in.; BMI: 39.1; ph
[2022-07-22 19:48] LABS: Hematocrit 41.9 % (36.0-45.0); Lymphocytes % 12.2 % (15.3-44.8); MCV 98.9 fL (80-100); MPV 7.9 fL (7.6-11.3); RBC Red Blood Cell Count 4.24 M/uL (3.86-4.86)
[2022-07-22] MEDS ORDERED: cloNIDine HCL 0.1 MG TAB ONE (19:50)
[2022-07-22] MEDS ORDERED: NA CHLORIDE 0.9% 50 ML ONE (19:51)
[2022-07-22] MEDS ORDERED: CEFTRIAXONE 1000 MG/VIAL ONE (19:51)
[2022-07-22] MEDS ORDERED: NA CHLORIDE 0.9% 250 ML ONE (19:51)
[2022-07-22] MEDS ORDERED: VANCOMYCIN 1 GM/VIAL ONE (19:51)
[2022-07-22 20:05] LABS: Albumin 2.7 g/dL (3.4-5.0); Bilirubin Total 0.3 mg/dL (0.2-1.0); Potassium 4.7 mEq/L (3.5-5.1); Protein, Total 7.3 g/dL (6.4-8.2)
--- NOTE | 2022-07-22 20:23 | P.HP ---
Certification for Inpatient Patient admitted to: Inpatient With expected LOS: >2 Midnights Patient will require the following post-hospital care: None Practitioner: I am a practitioner with admitting privileges, knowledge of patient current condition, hospital course, and medical plan of care. Services: Services provided to patient in accordance with Admission requirements found in Title 42 Section 412.3 of the Code of Federal Regulations Patient History Date of Service: 07/22/22 Primary Care Provider: Pina Reason for admission: Gangrene Left Great Toe History of Present Illness: Ms. Hazel is an 81 year old female with past medical history of CVA (January 2017), severe pulmonary hypertension, HTN, HLD, ESRD, IDDM2, Hypothyroidism, and afib on eliquis who was sent to the emergency department by drainage design coordinator with concerns of left great toe wound. She was noted to have gangrenous tip of the left great toe. She is nontoxic-appearing. She has been on antibiotics up until about 2 weeks ago. Today, arterial ultrasound showed "Moderate left mid and distal lower extremity arterial disease." Venous ultrasound negative for DVT. Left foot xray showed "Lucency within a the base of the first distal phalanx may indicate osteomyelitis. Evaluation with MRI is recommended." Patient has pacemaker so MRI can not be done. General surgery, Dr. Carson was contacted and will consult. Wishes for patient to be NPO at midnight. She was given Rocephin and vancomycin in the emergency department and will be admitted for further management. Allergies No Known Allergies Allergy (Verified 08/27/19 22:08) Home medications list reviewed: Yes Home Medications: Atorvastatin Calcium [Lipitor] 1 tab PO BEDTIME 05/08/17 Duloxetine [Cymbalta *] 1 cap PO DAILY 05/08/17 Acetaminophen with Codeine [Acetaminophen-Cod #3 Tablet] 1 tab PO Q6HP PRN 09/01 Apixaban [Eliquis *] 2.5 mg PO BID 03/31/22 Clopidogrel Bisulfate [Plavix*] 75 mg PO DAILY 03/31/22 Docusate [Colace Cap*] 100 mg PO BID cap 03/31/22 Polyethyl Gly 3350 [Glycolax*] 17 gm PO DAILY udbot 03/31/22 Acetaminophen [Tylenol] 650 mg PO Q8HP PRN 06/22/22 Amiodarone HCl [Pacerone] 200 mg PO BID 06/22/22 Ascorbic Acid 500 mg PO BID 06/22/22 Collagenase [Santyl Ointment*] 30 gm TP DAILY 06/22/22 Gabapentin 200 mg PO BEDTIME 06/22/22 Levothyroxine [Synthroid*] 125 mcg PO [id number] 06/22/22 Mag Hydroxide 8% [Milk Of Magnesia*] 30 ml PO DAILYPRN PRN 06/22/22 Ondansetron [Zofran (Odt)*] 4 mg PO Q8HP PRN 06/22/22 Zinc Sulfate [Zinc Sulfate*] 220 mg PO DAILY 06/22/22 Cefpodoxime Proxetil 100 mg PO DAILY #5 tab 06/25/22 Collagenase [Santyl Ointment*] 1 appl TOP DAILY #1 tube 06/25/22 Epoetin [Retacrit] 10,000 unit IV EVERY HD vial 06/25/22 Fluconazole [Diflucan] 200 mg PO T,TH,S #6 tab 06/25/22 Insulin 70/30 NPH/Reg Human [Novolin 70/30*] 10 unit SQ BIDAC #10 ml 06/25/22 - Past Medical/Surgical History Diabetic: Yes -: CVA with right-sided weakness -: Insulin dependent type 2 Diabetes -: Hypertension -: Atrial Fibrillation -: NEUROPATHY -: HLD -: HYPOTHYROIDISM -: ESRD on HD -: thyroidectomy -: cataract sx -: hysterectomy -: pacemaker Psychosocial/ Personal History: long-term - Family History Mother -: Hypertension Father -: Diabetes - Social History Smoking Status: Never smoker Alcohol use: No CD- Drugs: No Caffeine use: No Place of Residence: Home Review of Systems 10-point ROS is otherwise unremarkable Integumentary: As per HPI Physical Examination - Vital Signs Temperature: 97.4 F Blood Pressure: 199/77 Pulse: 55 Respirations: 16 Pulse Ox (%): 100 - Physical Exam General: Alert, In no apparent distress HEENT: Atraumatic, EOMI, Sclerae nonicteric Neck: Supple, 2+ carotid pulse no bruit Respiratory: Clear to auscultation bilaterally, Normal air movement Cardiovascular: Regular rate/rhythm, Normal S1 S2, Abnormal pulses (diminished in left foot) Gastrointestinal: Normal bowel sounds, No tenderness Musculoskeletal: No clubbing Integumentary: Skin breakdown, Skin lesion, Erythema, Other (gangrenous distal left great toe) Neurological: Normal speech, Normal affect - Studies Laboratory Data (last 24 hrs) 07/22/22 19:39: Sodium 129 L, Potassium 4.7, BUN 45 H, Creatinine 4.55 H, Glucose 306 H, Total Bilirubin 0.3, AST 17, ALT 13, Alkaline Phosphatase 91 07/22/22 19:39: WBC 8.40, Hgb 13.3, Hct 41.9, Plt Count 200 Assessment and Plan - Problems (Diagnosis) (1) Gangrene of toe of left foot Current Visit: Yes Status: Acute (2) End stage renal disease Current Visit: Yes Status: Chronic (3) Atrial fibrillation Current Visit: Yes Status: Chronic Qualifiers: Atrial fibrillation type: unspecified Qualified Code(s): I48.91 - Unspecified atrial fibrillation (4) Diabetes Current Visit: Yes Status: Chronic Qualifiers: Diabetes mellitus type: type 2 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 therapist assistant insulin use: with skilled nursing use Diabetes mellitus complication status: with hyperglycemia Qualified Code(s): E11.65 - Type 2 diabetes mellitus with hyperglycemia; Z79.4 - deep tissue massage therapist (current) use of insulin (5) Hypertension Current Visit: Yes Status: Chronic Qualifiers: Hypertension type: primary hypertension Qualified Code(s): I10 - Essential (primary) hypertension (6) Hypothyroidism Current Visit: Yes Status: Chronic Qualifiers: Hypothyroidism type: postoperative Qualified Code(s): E89.0 - Postprocedural hypothyroidism - Plan Patient is admitted for further management of gangrenous left great toe/possible osteomyelitis. General surgery consulted. N.p.o. at midnight. Continue vancomycin and cefepime. Nephrology consulted for hemodialysis. Arterial ultrasound demonstrating "Moderate left mid and distal lower extremity arterial disease." Glucose monitoring with moderate sliding scale. She has been hyperglycemic. Check a1c. Resume BP medications. Hydralazine for spikes, she has been hypertensive. Monitor and replete electrolytes per protocol. Reconcile and continue home medications. Eliquis for VTE prophylaxis (hold dose preoperatively). Full code. Discharge Plan: Fpc Plan to discharge in: Greater than 2 days - Advance Directives Does patient have a Living Will: No Does patient have a Durable POA for Healthcare: No - Code Status/Comfort Care Code Status Assessed: Yes Code Status: Full Code Physician Review: Patient Assessed, Agree with Above Assessment and Plan Critical Care: No Time Spent Managing Pts Care (In Minutes): 50
--- NOTE | 2022-07-22 20:49 | RAD REPORT ---
EXAM DESCRIPTION: RAD - Foot Left 3 View - 07/22/2022 7:55 pm CLINICAL HISTORY: Left Foot pain FINDINGS: No fracture or dislocation is seen. Bones are osteoporotic. Lucency within a the base of the first distal phalanx may indicate osteomyelitis. Evaluation with MRI is recommended
[2022-07-22] MEDS ORDERED: VANCOMYCIN 1 GM in NA CHLORIDE 0.9% 250 ML IVPB ONE (21:40)
[2022-07-22] MEDS ORDERED: ONDANSETRON 4 MG/2 ML VIAL IV PRN (21:40)
--- NOTE | 2022-07-22 21:48 | RAD REPORT ---
EXAM DESCRIPTION: USExtremity Venous [facility] Ltd07/22/2022 9:20 pm CLINICAL HISTORY: left leg pain. Left foot gangrene COMPARISON: None FINDINGS: Left common femoral, superficial femoral, greater saphenous, popliteal and posterior tibi al veins are compressible and demonstrate augmentation. Doppler demonstrates good flow. Grayscale, color and spectral analysis performed on all vessels IMPRESSION: No evidence of deep venous thrombosis involving the left lower extremity.
--- NOTE | 2022-07-22 21:51 | RAD REPORT ---
EXAM DESCRIPTION: US - Lower Extremity Artery [facility] - 07/22/2022 9:19 pm CLINICAL HISTORY: Leg pain/left foot gangrene COMPARISON: None FINDINGS: The left common and superficial femoral veins demonstrate triphasic waveforms The popliteal, left posterior tibial and dorsalis pedis arteries demonstrate monophasic waveforms Grayscale, color and spectral analysis performed on all vessels IMPRESSION: Moderate left mid and distal lower extremity arterial disease
[2022-07-22 23:07] VITALS: BMI 39.2
[2022-07-23] MEDS: INSULIN -REGULAR HUMAN 50 UNIT/0.5 ML ML SQ SCH ×4 (06:00→18:00)
[2022-07-23 06:40] LABS: Absolute Lymphocytes (CBC) 0.8 K/uL (0.7-4.9); Hematocrit 36.9 % (36.0-45.0); Lymphocytes % 9.8 % (15.3-44.8); MCV 98.5 fL (80-100); MPV 7.8 fL (7.6-11.3); RBC Red Blood Cell Count 3.74 M/uL (3.86-4.86)
[2022-07-23 07:05] LABS: Magnesium 2.3 mg/dL (1.6-2.4); Phosphorus 3.7 mg/dL (2.5-4.9); Potassium 4.7 mEq/L (3.5-5.1)
[2022-07-23 07:07] LABS: Thyroid Stimulating Hormone 17.4 uIU/mL (0.358-3.740)
[2022-07-23] MEDS ORDERED: PNEUMOCOCCAL VACCINE 0.5 ML IMVAC ONE (08:00)
[2022-07-23] MEDS: CEFEPIME 1 GM in NA CHLORIDE 0.9% 100 ML IV SCH ×2 (08:12→21:04)
[2022-07-23] MEDS ORDERED: CEFEPIME 0.5 GM in NA CHLORIDE 0.9% 50 ML IV SCH (09:00)
--- NOTE | 2022-07-23 10:32 | P.CNS ---
Date of Consult: 07/23/22 Reason for Consult: Gangrene of left great toe Requesting Physician: Zayda Khan Primary Care Provider: Pina Chief Complaint: Gangrene Left Great Toe History of Present Illness: Patient is an 81 year old female with past medical history of CVA (January 2017), severe pulmonary hypertension, Hypertension, hyperlipidemia, ESRD, diabetes mellitus type 2, Hypothyroidism, and atrial fibrillation on eliquis who was sent to the emergency department by magnetic resonance imaging director with concerns of left great toe wound. Gangrenous tip of the left great toe noted. She recently completed a course of antibiotics 2 weeks ago. Left foot xray showed "Lucency within a the base of the first distal phalanx may indicate osteomyelitis." Patient has pacemaker so MRI can not be done. She was started on empiric antibiotics and admitted for further management. General surgery and Infectious Disease consulted. Allergies No Known Allergies Allergy (Verified 08/27/19 22:08) Home medications list reviewed: Yes Home Medications: Atorvastatin Calcium [Lipitor] 1 tab PO BEDTIME 05/08/17 Duloxetine [Cymbalta *] 1 cap PO DAILY 05/08/17 Acetaminophen with Codeine [Acetaminophen-Cod #3 Tablet] 1 tab PO Q6HP PRN 03/19/22 Acetaminophen [Tylenol] 650 mg PO Q8HP PRN 06/22/22 Amiodarone HCl [Pacerone] 200 mg PO BID 06/22/22 Ascorbic Acid 500 mg PO BID 06/22/22 Gabapentin 200 mg PO BEDTIME 06/22/22 Levothyroxine [Synthroid*] 125 mcg PO [id number] 06/22/22 Mag Hydroxide 8% [Milk Of Magnesia*] 30 ml PO DAILYPRN PRN 06/22/22 Ondansetron [Zofran (Odt)*] 4 mg PO Q8HP PRN 06/22/22 Zinc Sulfate [Zinc Sulfate*] 220 mg PO DAILY 06/22/22 Collagenase [Santyl Ointment*] 1 appl TOP DAILY #1 tube 06/25/22 Insulin 70/30 NPH/Reg Human [Novolin 70/30*] 10 unit SQ BIDAC #10 ml 06/25/22 Apixaban [Eliquis *] 2.5 mg PO BID 07/22/22 Clopidogrel Bisulfate [Plavix*] 75 mg PO DAILY 07/22/22 Docusate [Colace Cap*] 100 mg PO BID 07/22/22 Metoprolol Succinate 12.5 mg PO DAILY 07/22/22 Nystatin Oint [Mycostatin 100 Mu/Gm Oint] 1 appl TOP BID 07/22/22 Polyethyl Gly 3350 [Glycolax*] 17 gm PO DAILY 07/22/22 Protein Supplement [Promod] 60 ml PO BID 07/22/22 - Past Medical/Surgical History Diabetic: Yes -: CVA with right-sided weakness -: Insulin dependent type 2 Diabetes -: Hypertension -: Atrial Fibrillation -: NEUROPATHY -: HLD -: HYPOTHYROIDISM -: ESRD on HD -: chronic osteomyelitis with non-healing ulcer right great toe s/p fall(2017) -: afib vs supraventricular tachycardia -: thyroidectomy -: cataract sx -: hysterectomy -: pacemaker Psychosocial/ Personal History: care home - Family History Mother Medical History: Hypertension Father Medical History: Diabetes - Social History Smoking Status: Unknown if ever smoked Alcohol use: No CD- Drugs: No Caffeine use: No Place of Residence: Home Review of Systems 10-point ROS is otherwise unremarkable Integumentary: As per HPI Physical Examination Temp Pulse Resp BP Pulse Ox 98.0 F 50 14 158/59 H 98 07/23/22 04:00 07/23/22 08:00 07/23/22 08:00 07/23/22 08:00 07/23/22 08:00 General: Alert, In no apparent distress, Oriented x3 HEENT: Atraumatic, Normocephalic Neck: Supple, JVD not distended Respiratory: Normal air movement, Diminished Cardiovascular: No edema, Abnormal pulses (pedal pulses nonpalpable) Gastrointestinal: Normal bowel sounds, Soft and benign Musculoskeletal: No clubbing, No swelling Integumentary: Pressure ulcer (sacrum), Other (Necrosis of left great toe ) Neurological: Normal speech, Normal tone, Normal affect Urinary: Other (PureWick draining cloudy yellow urine) Laboratory Data - Reviewed Microbiology Data - Reviewed Imagings Data: - Reviewed Conclusions/Impression: Problem List Gangrene Left Great Toe Pulmonary Hypertension Hypertension Hyperlipidemia ESRD Diabetes Mellitus Type II Hypothyroidism Atrial fibrillation on eliquis Mild PCM Hx CVA Gangrene Left Great Toe - Venous ultrasound negative for DVT - Left foot XR "Lucency within a the base of the first distal phalanx may indicate osteomyelitis. Evaluation with MRI is recommended." - Currently on Cefepime (07/23) and Vancomycin (07/22) - General surgery on case. Planning for amputation tomorrow 07/24. No leukocytosis. Afebrile. Woun culture coccyx/buttocks 07/22: pending Recommendations - Continue Cefepime and Vancomycin for now. - Current plan for amputation tomorrow. NPO at midnight ID will follow up and monitor patient closely. Case discussed with Becca Eaton. Thank you for consult.
[2022-07-23] MEDS: HYDRALAZINE HCL 20 MG/ML VIAL IV PRN ×2 (12:34→21:04)
[2022-07-23 17:29] LABS: Hepatitis B surface AG Interp. Nonreactive (Nonreactive)
[2022-07-23 17:31] LABS: Hepatitis B Surface Ab - Quant < 3.10 mIU/mL (<8.0)
[2022-07-23] MEDS ORDERED: VANCOMYCIN 1 GM in NA CHLORIDE 0.9% 250 ML IVPB SCH (18:00)
[2022-07-23] MEDS ORDERED: D10W 250 ML BAG IV PRN (18:33)
[2022-07-23] MEDS ORDERED: GLUCAGON 1 MG/VIAL IM PRN (18:33)
[2022-07-23] MEDS: APIXABAN 2.5 MG TABLET PO SCH (18:34)
--- NOTE | 2022-07-23 19:05 | P.PN ---
Date of Service: 07/23/22 Subjective Clinically doing well. Patient is scheduled for amputation of the left big toe. Cardiology consulted for peripheral arterial disease as well. Physical Examination - Vital Signs Reviewed - Physical Exam General: Alert, In no apparent distress Respiratory: Clear to auscultation bilaterally, Normal air movement Cardiovascular: Regular rate/rhythm, Normal S1 S2, Abnormal pulses (diminished in left foot) Gastrointestinal: Normal bowel sounds, No tenderness Musculoskeletal: No clubbing Integumentary: Gangrenous distal left great toe Neurological: No focal deficits Assessment and Plan - Problems (Diagnosis) (1) Gangrene of toe of left foot Current Visit: Yes Status: Acute (2) End stage renal disease Current Visit: Yes Status: Chronic (3) Atrial fibrillation Current Visit: Yes Status: Chronic Atrial fibrillation type: unspecified Qualified Code(s): I48.91 - Unspecified atrial fibrillation (4) Diabetes Current Visit: Yes Status: Chronic Diabetes mellitus type: type 2 Diabetes mellitus 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 exterminator insulin use: with termite exterminator use Diabetes mellitus complication status: with hyperglycemia Qualified Code(s): E11.65 - Type 2 diabetes mellitus with hyperglycemia; Z79.4 - residential (current) use of insulin (5) Hypertension Current Visit: Yes Status: Chronic Hypertension type: primary hypertension Qualified Code(s): I10 - Essential (primary) hypertension (6) Hypothyroidism Current Visit: Yes Status: Chronic Hypothyroidism type: postoperative Qualified Code(s): E89.0 - Postprocedural hypothyroidism - Plan -Patient is admitted for further management of gangrenous left great toe/possible osteomyelitis; pt to get amputation. -General surgery consulted. N.p.o. at midnight. Continue vancomycin and cefepime. -Nephrology consulted for hemodialysis. -Arterial ultrasound demonstrating "Moderate left mid and distal lower extremity arterial disease." Cardiology consultation -Glucose monitoring with moderate sliding scale. She has been hyperglycemic. Check a1c. -Resume BP medications. Hydralazine for spikes, she has been hypertensive. -Monitor and replete electrolytes per protocol. -Reconcile and continue home medications. -Prophylaxis with Lovenox; hold Eliquis -Full code. Discharge Plan: Senior Living Plan to discharge in: Greater than 2 days - Advance Directives Does patient have a Living Will: No Does patient have a Durable POA for Healthcare: No - Code Status/Comfort Care Code Status Assessed: Yes Code Status: Full Code Physician Review: Patient Assessed, Agree with Above Assessment and Plan Critical Care: No Time Spent Managing Pts Care (In Minutes): 50
--- NOTE | 2022-07-23 19:14 | CON ---
Date of Consultation: 07/23/2022 Reason For Consultation: Elevated BUN and creatinine, end-stage renal disease. History Of Present Illness: This is a pleasant 81-year-old female, well known to me from the [facility] with significant past medical history of CVA, dementia, CAD with normal ejection fraction, diabetes complicated with neuropathy, nephropathy, hypertension, hyperlipidemia, PAD, end-stage renal disease , on hemodialysis, the patient brought to the hospital because of gangrenous big toe on the left, aniceto luated, questionable of osteomyelitis. The patient planned for toe amputation tomorrow. The patient complaining from pain in the toe. No nausea. No vomiting. No fever. Past Medical History: Includes; 1.Hypertension. 2.Hyperlipidemia. 3.CAD with preserved ejection fraction. 4.CVA with right-sided hemiparesis, bedbound. 5.Peripheral vascular disease. 6.End-stage renal disease. 7.Anemia of chronic kidney disease. 8.Diabetes complicated with neuropathy and nephropathy. Allergies: NO KNOWN DRUGS ALLERGY. Social History: Lives in jail. Denied smoking. Denied drinking. Denied drugs abuse. Review of Systems: Head and Neck: No red eye. No ear pain. GI: No nausea. No vomiting. : No polyuria. No dysuria. No hematuria. Advisory Software Engineer: No vaginal discharge. Respiratory: No shortness of breath. Cardiovascular: No chest pain. Endocrine: No polydipsia. Skin: No rash except gangrenous left big toe. Neuro: Has neuropathy. Musculoskeletal: Has toe pain and discoloration. Home Medications: Include atorvastatin, Cymbalta, Tylenol, Eliquis, Plavix, docusate, Tylenol, amiod arone, vitamin C, levothyroxine, Zofran, and Epogen. Past Surgical History: Includes hysterectomy, PermCath placement, thyroidectomy, pacemaker insertion . Physical Examination: General: When I saw the patient; the patient lying in bed comfortable, not on any distress. Vital Signs: Blood pressure 158/59, pulse of 50, afebrile. Chest: Clear to auscultation. Heart: S1, S2. Systolic murmur. Abdomen: Soft, nontender. Extremities: Trace edema. Gangrenous dry on the left toe. Neurologic: Alert. Pleasantly confused. Right hemiparesis. Laboratory Data: Hemoglobin 12. Sodium 132, potassium 4.7, bicarb 24, BUN 45, creatinine 4.8, calci um 8.4, magnesium 2.3, albumin 3.7, phosphorus 3.7. Cultures are negative. Current Medications: The patient on include; 1.Vancomycin. 2.Cefepime. 3.Eliquis. 4.Insulin. Assessment And Plan: 1.End-stage renal disease. We will continue the patient on dialysis. The patient is scheduled for dialysis today. 2.Hypertension, controlled, optimal. We will follow up blood pressure after dialysis. 3.Toe gangrene. 4.Questionable osteomyelitis. Continue current antibiotic. Plan for amputation tomorrow. 5.Hyponatremia, will be corrected with dialysis. 6.Anemia of chronic kidney disease. No need for JOHNNY. 7.Secondary hyperparathyroidism. Calcium and phosphorus on the goal. We will monitor. Thank you, for allowing us to participate in the care of your patient. Time spent examining the patient [id number], reviewing data, lab, and radiology, placing order, dis cussing the case with the software team leader including hospitalist staff and nursing staff more than 65 wgen layo. HARRIETT/LAYLA Voice ID: [id number] Report ID: [id number]
[2022-07-23] MEDS: AMINO ACIDS/PROTEIN HYDROLYS 30 ML LIQUID.PKT PO SCH (21:00)
[2022-07-23] MEDS: ATORVASTATIN 80 MG TAB PO SCH (21:03)
[2022-07-23] MEDS: AMIODARONE HCL 200 MG TAB PO SCH (21:03)
[2022-07-23] MEDS: DOCUSATE NA 100 MG CAP PO SCH (21:03)
[2022-07-23] MEDS: ACETAMINOPHEN 500 MG TAB PO PRN (22:01)
[2022-07-24] MEDS: LEVOTHYROXINE SOD 0.125 MG TAB PO SCH (04:40)
[2022-07-24] MEDS: HYDRALAZINE HCL 20 MG/ML VIAL IV PRN ×2 (04:59→20:45)
[2022-07-24] MEDS: INSULIN -REGULAR HUMAN 50 UNIT/0.5 ML ML SQ SCH ×5 (05:09→20:43)
[2022-07-24] MEDS: INSULIN 70/30 100 UNITS/ML SQ SCH ×2 (07:30→16:30)
[2022-07-24] MEDS: DOCUSATE NA 100 MG CAP PO SCH ×2 (08:00→20:42)
[2022-07-24] MEDS: AMINO ACIDS/PROTEIN HYDROLYS 30 ML LIQUID.PKT PO SCH ×2 (08:00→21:03)
[2022-07-24] MEDS: AMIODARONE HCL 200 MG TAB PO SCH ×2 (08:00→20:42)
[2022-07-24] MEDS: ZINC SULFATE 220 MG CAP PO SCH (08:00)
[2022-07-24] MEDS: DULOXETINE 20 MG CAP PO SCH (08:00)
[2022-07-24] MEDS ORDERED: EPINEPHRINE/PF 1 MG/ML AMP ONE (08:07)
[2022-07-24] MEDS ORDERED: dexAMETHasone 4 MG/ML VIAL ONE (08:07)
[2022-07-24] MEDS ORDERED: BUPIVACAINE 0.25% PF 30 ML VIAL ONE (08:07)
--- NOTE | 2022-07-24 08:19 | CON ---
Date of Consultation: 07/24/2022 Diagnosis: Left great toe gangrene. History Of Present Illness: This is the case of an 81-year-old patient with multiple medical history including CVA, pulmonary hypertension, renal failure, on dialysis, atrial fibrillation, sent to [facility] due to gangrene of the left great toe. The patient also has findings consistent with possible osteomyelitis. The patient has history of peripheral vascular disease. She has been on antibiotics for several weeks, but the toe got worse to the point developed gangrene and she was sent emergently to the hospital and a surgical consult was obtained. She denies any trauma. She has extensive vasc ular workup as per the patient, was not done in this institution. Allergies: NONE. Medications: Reviewed including Eliquis. Past Surgical History: Includes pacemaker, renal catheters, cataract surgery, hysterectomy. Family History: Hypertension, diabetes. Social History: She does not smoke. She does not drink alcohol. Review of Systems: Gangrene of the left first toe. The patient has no chest pain at this moment. No dyspneas. Ten poi nts otherwise unremarkable. Physical Examination: General: The patient is awake, alert, oriented x3. HEENT: Pupils are equal and reactive. Anicteric. Neck: Supple. Chest: Clear. Abdomen: Soft and depressible. No guarding or rebound. Integumentary: Shows gangrene of the left toe, not only include the tip, but also the size all the w ay down to the base. There is associated cellulitis on the foot. Dorsalis pedis pulses diminished b ilateral. Femoral pulses still present. Neuro: The patient has partial neuropathy. Laboratory Data: Blood work shows WBC count of 8.4, hemoglobin of 13.3, and platelets of 200. Sodiu m is 139, chloride is 96, glucose 306. Foot x-ray shows lucency at the base of the distal phalanx ma y indicate osteomyelitis. Doppler ultrasound shows moderate left mid and distal lower extremity erika rial disease. Venous Doppler, there is no evidence of deep vein thrombosis. Assessment: This is an 81-year-old patient, who comes with gangrene of left first toe. We explained to her about her condition. She has been on antibiotics for several weeks and dressing changes. We explained to the patient that first toe has gangrene, has some osteomyelitis associated with it. Jak dumont has been a week on antibiotics, no improvement, getting worse and to the point that we did discuss with her and the family members that even though the first toe is the one that just looked black. Th e rest of the foot is also affected by this peripheral vascular disease, which means that even though we remove the first toe, we are going to have difficult time trying to heal her wounds. She defingisell maria does not want below-knee amputation at this moment or any other amputation, just the first toe, b ut she has to be compliant and follow all recommendations to increase the chance of this area healing , which is right now a difficult task seen in all her comorbidities. We still should give her a moreno ce. We may be using some techniques trying to get this to heal faster. At this moment, I do not see any purulent discharge, but the gangrene is there, black tissue present too. She understands the im portance of controlling diabetes, controlling electrolytes since she is in renal failure. She also u nderstands to just go back to her vascular surgeons to see if there is any possibility of increasing the vascular supply to that region that will improve the healing process. Understanding all this, we booked the case emergently in the OR for amputation. ARLEN/LAYLA Voice ID: [id number] Report ID: [id number]
[2022-07-24] MEDS ORDERED: NA CHLORIDE 0.9% 500 ML ONE (08:24)
[2022-07-24] MEDS ORDERED: BUPIVACAINE 0.5% PF 10 ML VIAL ONE (08:33)
[2022-07-24] MEDS ORDERED: MIDAZOLAM HCL 2 MG/2 ML INJ ONE (08:43)
[2022-07-24] MEDS ORDERED: METOPROLOL XL 25 MG TAB PO SCH (09:00)
--- NOTE | 2022-07-24 09:20 | P.PN ---
Date of Service: 07/24/22 Chief Complaint: Gangrene Left Great Toe Subjective: Patient in bed, NAD, A&Ox3. No acute events reported overnight. Denies any complaints at this time. Scheduled for left great toe amputation this morning. Physical Examination Temp Pulse Resp BP Pulse Ox 97 F 96 H 20 169/72 H 97 07/24/22 08:00 07/24/22 08:00 07/24/22 08:00 07/24/22 08:00 07/24/22 08:00 General: Alert, In no apparent distress, Oriented x3 HEENT: Atraumatic, Normocephalic Neck: Supple, JVD not distended Respiratory: Normal air movement, Diminished Cardiovascular: No edema, Abnormal pulses (pedal pulses nonpalpable) Gastrointestinal: Normal bowel sounds, Soft and benign Musculoskeletal: No clubbing, No swelling Integumentary: Pressure ulcer (sacrum), Other (Necrosis of left great toe ) Neurological: Normal speech, Normal tone, Normal affect Urinary: Other (PureWick draining cloudy yellow urine) Laboratory Data - Reviewed Microbiology Data - Reviewed Imagings Data: - Reviewed Medications List Reviewed: Yes Conclusions/Impression: Problem List Gangrene Left Great Toe Pulmonary Hypertension Hypertension Hyperlipidemia ESRD Diabetes Mellitus Type II Hypothyroidism Atrial fibrillation on eliquis Mild PCM Hx CVA Gangrene & Osteomyelitis of Left First Toe - Complicated by diabetes mellitus and peripheral vascular disease - Venous ultrasound negative for DVT - Left foot XR "Lucency within a the base of the first distal phalanx may indicate osteomyelitis. Evaluation with MRI is recommended." - Currently on Cefepime (07/23) and Vancomycin (07/22) - General surgery on case. - Scheduled for left first toe amputation today 07/24 No leukocytosis. Afebrile. Wound culture coccyx/buttocks 07/22: gram stain-gram negative rods Recommendations - Continue Cefepime and Vancomycin for now. - Awaiting final wound culture reports. Will adjust antibiotics as appropriate. - Amputation today by Dr. Carson. Continue wound care per surgery team - Continue supportive care and nutritional support as needed ID will follow up and monitor patient closely. Case discussed with Boogie Eaton
[2022-07-24] MEDS ORDERED: propofoL 200 MG/20 ML VIAL IV ONE (09:29)
[2022-07-24] MEDS ORDERED: LIDOCAINE 2% MPF 5 ML VIAL ONE (09:29)
--- NOTE | 2022-07-24 09:58 | P.BOP ---
Preoperative diagnosis: left first toe gangrene Postoperative diagnosis: same Primary procedure: Amputation left first toe Estimated blood loss: <5cc Specimen: toe Findings: as above Anesthesia: General Complications: None Drain(s): Other (amni) Implants: amniofill Transferred to: Recovery Room Condition: Good
[2022-07-24] MEDS: lisinopriL 5 MG TAB PO SCH (10:00)
[2022-07-24] MEDS: METOPROLOL XL 25 MG TAB PO SCH (10:00)
[2022-07-24 10:25] VITALS: O2SAT 97
--- NOTE | 2022-07-24 11:20 | PN ---
Date of Progress Note: 07/24/2022 Subjective: The patient was admitted with toe infection gangrene. The patient is scheduled for ampu tation today, did well. Physical Examination: Vital Signs: Blood pressure 169/72, pulse of 96. Chest: Clear to auscultation. Heart: S1, S2. Regular. Abdomen: Soft, nontender. Extremity: Trace edema. Gangrenous left toe with dressing, post operation amputation. Neuro: Alert. No focality. The patient bed bound. Assessment And Plan: 1.End-stage renal disease. We will continue the patient on dialysis per her schedule. The patient needs to be dialyze tomorrow. Status post dialysis yesterday, managed to remove 1200. 2.Hypertension, not controlled. I am going to go ahead and increase her metoprolol to 25 mg. We wi ll start the patient on WILDA inhibitor and we will follow up the patient. 3.Gangrenous toe, status post amputation. We will follow up with Surgery. Continue antibiotic. 4.Hyponatremia, corrected with dialysis. 5.Pulmonary hypertension, stable. 6.Anemia of chronic kidney disease. No need for JOHNNY. HARRIETT/LAYLA Voice ID: [id number] Report ID: [id number]
--- NOTE | 2022-07-24 13:46 | CON ---
Date of Consultation: 07/23/2022 Admitted with a left foot gangrene by on 07/22/2022. I saw the patient on 07/23/2022. Reason For Consultation: PAD. History Of Present Illness: Ms. Hazel is 81, just underwent coronary artery bypass surgery a few wee ks ago in [place]. She also has end-stage renal disease, on dialysis. She has diabetes, hypertensio n, and CVA. Came in with gangrenous left foot. Arterial Doppler showed moderate diffuse plaquing be low the knee. No focal stenosis in the SFA or common iliac. She denied any cardiac symptoms. Past Medical History: As stated above. Allergies: NONE. Review of Systems: Negative. Social History: Negative. Family History: Negative. Medications: Listed by . Physical Examination: General: Very pleasant, no acute distress. Vital Signs: Stable, afebrile. HEENT: Negative. Neck: Supple with no bruit. Chest: Clear. Cardiac: Revealed regular rhythm and rate. No murmurs, gallops, or rubs. Abdomen: Benign. Extremities: Revealed no clubbing or cyanosis, but she does have gangrene in the left foot. Diagnostic Data: Otherwise negative. Impression And Plan: Peripheral arterial disease, [id number] diffuse disease below the knees, normal SFA and iliac. No need for intervention. No need for angiography. She needs to be treated m edically surgically if needed. Consider hyperbaric oxygen, which she has had in the past. Her other problems including history of coronary artery bypass graft, diabetes, hypertension, cerebrovascular accident, and end-stage renal disease are stable. I will sign off her case. KINA/LAYLA Voice ID: [id number] Report ID: [id number]
[2022-07-24] MEDS ORDERED: VANCOMYCIN 1 GM in NA CHLORIDE 0.9% 250 ML IVPB SCH (18:00)
[2022-07-24] MEDS: CEFEPIME 1 GM in NA CHLORIDE 0.9% 100 ML IV SCH (20:41)
[2022-07-24] MEDS: ATORVASTATIN 80 MG TAB PO SCH (20:42)
[2022-07-24] MEDS: APIXABAN 2.5 MG TABLET PO SCH (20:42)
[2022-07-25 03:42] LABS: Albumin 2.4 g/dL (3.4-5.0); Phosphorus 3.6 mg/dL (2.5-4.9); Potassium 4.8 mEq/L (3.5-5.1)
[2022-07-25] MEDS: LEVOTHYROXINE SOD 0.125 MG TAB PO SCH (06:20)
[2022-07-25] MEDS: INSULIN -REGULAR HUMAN 50 UNIT/0.5 ML ML SQ SCH ×4 (07:30→21:00)
[2022-07-25] MEDS: METOPROLOL XL 25 MG TAB PO SCH (08:49)
[2022-07-25] MEDS: ZINC SULFATE 220 MG CAP PO SCH (08:49)
[2022-07-25] MEDS: AMIODARONE HCL 200 MG TAB PO SCH ×2 (08:49→20:34)
[2022-07-25] MEDS: APIXABAN 2.5 MG TABLET PO SCH ×2 (08:49→20:34)
[2022-07-25] MEDS: INSULIN 70/30 100 UNITS/ML SQ SCH ×2 (08:50→16:59)
[2022-07-25] MEDS: DULOXETINE 20 MG CAP PO SCH (08:50)
[2022-07-25] MEDS: DOCUSATE NA 100 MG CAP PO SCH ×2 (08:50→20:34)
[2022-07-25] MEDS: AMINO ACIDS/PROTEIN HYDROLYS 30 ML LIQUID.PKT PO SCH ×2 (08:50→21:00)
[2022-07-25] MEDS: lisinopriL 5 MG TAB PO SCH (08:50)
--- NOTE | 2022-07-25 09:15 | P.PN ---
Date of Service: 07/25/22 Chief Complaint: Gangrene Left Great Toe Subjective: s/p amputation of left great toe yesterday 07/24. Tolerated procedure well. Patient denies any complaints at this time. In bed, A&Ox3, breathing comfortably on room air. No acute events reported overnight. Physical Examination Temp Pulse Resp BP Pulse Ox 98.9 F 62 18 169/81 H 96 07/25/22 08:00 07/25/22 08:00 07/25/22 08:00 07/25/22 08:00 07/25/22 08:00 General: Alert, In no apparent distress, Oriented x3 HEENT: Atraumatic, Normocephalic Neck: Supple, JVD not distended Respiratory: Normal air movement, Diminished Cardiovascular: No edema, weak pedal pulses Gastrointestinal: Normal bowel sounds, Soft and benign Musculoskeletal: No clubbing, No swelling Integumentary: Pressure ulcer (sacrum), s/p amputation of left great toe, dressing C/D/I Neurological: Normal speech, Normal tone, Normal affect Urinary: PureWick draining reid colored urine Laboratory Data - Reviewed Microbiology Data - Reviewed Imagings Data: - Reviewed Medications List Reviewed: Yes Conclusions/Impression: Problem List Gangrene Left Great Toe Pulmonary Hypertension Hypertension Hyperlipidemia ESRD Diabetes Mellitus Type II Hypothyroidism Atrial fibrillation on eliquis Mild PCM Hx CVA Gangrene of Left First Toe - Complicated by diabetes mellitus and peripheral vascular disease - Venous ultrasound negative for DVT - Left foot XR "Lucency within a the base of the first distal phalanx may indicate osteomyelitis. Evaluation with MRI is recommended." - S/p left first toe amputation 07/24 - Currently on Cefepime (07/23) and Vancomycin (07/22) No leukocytosis. Afebrile. Wound culture coccyx 07/22: Enterobacter cloacae, susceptible to Cefepime and Bactrim Recommendations - Continue Cefepime and Vancomycin for now. - s/p amputation of left first toe 07/24. Continue wound care per surgery team - Continue supportive care and nutritional support as needed ID will follow up and monitor patient closely. Case discussed with Boogie Eaton
--- NOTE | 2022-07-25 10:47 | PN ---
Subjective: The patient was admitted with gangrenous toe, status post amputation yesterday, seen by Cardiology, recommended wound VAC. The patient feeling well. Has insomnia. Physical Examination: Vital Signs: When I saw the patient; blood pressure 168/81, pulse of 62, afebrile. Chest: Clear to auscultation. Heart: S1, S2. Regular. Abdomen: Soft nontender. Extremity: Dressing on the left foot. Neurologic: Alert. Pleasantly confused. Laboratory Data: Hemoglobin is 12. Sodium 128, potassium 4.8, bicarb 23, BUN 38, creatinine 4.5, ca lcium 8.7, phosphorus 3.6, albumin 2.4, corrected calcium is 10. Current Medications: The patient on include cefepime, vancomycin, Eliquis, atorvastatin, lisinopril 5, metoprolol, zinc sulfate, levothyroxine, insulin. Assessment And Plan: 1.End-stage renal disease. The patient is going to be scheduled for dialysis today. We will follow up blood pressure after dialysis. 2.Hyponatremia, will be corrected with dialysis. 3.Anemia of chronic kidney disease. No need for JOHNNY. 4.Gangrenous toe, status post amputation. Follow up with Surgery. 5.Diabetes as by primary. HARRIETT/LAYLA Voice ID: [id number] Report ID: [id number]
--- NOTE | 2022-07-25 12:14 | OP ---
Date of Procedure: 07/25/2022 Surgeon: Rito Carson MD Preoperative Diagnosis: Left first toe gangrene. Postoperative Diagnosis: Left first toe gangrene. Procedure: Transmetatarsal amputation of left first toe. Estimated Blood Loss: Less than 5 cc. Finding: As above. Anesthesia: General plus local. Complications: None. Packing: AmnioFill and Vivian. Indication: This is the case of an 81-year-old patient who comes to us with gangrene of the left fir st toe. Benefits, alternatives, and risks of amputation were fully explained, which include, but not limited to, infection, bleeding, damage to adjacent structures, anesthesia complication, nonhealing wound, UT, and even . She also understands this may not relieve any symptoms. She might need m ore than one surgical intervention. She understands how severe is peripheral vascular disease, but s till I encouraged her to go back to her vascular surgeon to re-analyze once again the circulation bec ause any blood supply that we can get to that area will help us trying to heal the amputation site. She also understands we are going to be using AmnioFill on that area trying to help on the healing pr ocess and she will require wound care at the end and [facility]. She unde rstood, signed a consent. Description Of Procedure: Patient was brought to the operating room, placed in supine position. Ane sthesia was done without complication. Left foot was prepped and draped in a sterile fashion. A laura e-out was called. After that, an incision was made around the area of the metatarsophalangeal joint. The patient had osteomyelitis present and the incision was made to pass the area of the black gangr kaylin that goes to the base of the toe. At that moment, we proceeded to find the metatarsophalangeal j oint amputated that area and then removed the metatarsal head of the first toe. Area was irrigated. Irrigation was done. We put AmnioFill to help us in the healing process in that region, put some ch romic in that region to cover the bone and then put a Vivian in that region to allow it to drainage. The area was going to be left to close by secondary intention. Patient tolerated the procedure wel l. The sponge count and instrument counts were correct. Patient was sent to recovery in [facility]. /MODL Voice ID: [id number] Report ID: [id number]
[2022-07-25] MEDS ORDERED: NA CHLORIDE 0.9% 250 ML ONE (17:46)
[2022-07-25] MEDS: HYDRALAZINE HCL 20 MG/ML VIAL IV PRN (18:28)
[2022-07-25] MEDS: CEFEPIME 1 GM in NA CHLORIDE 0.9% 100 ML IV SCH (20:33)
[2022-07-25] MEDS: ATORVASTATIN 80 MG TAB PO SCH (20:34)
[2022-07-25] MEDS: ACETAMINOPHEN 500 MG TAB PO PRN (20:35)
[2022-07-25] MEDS ORDERED: MELATONIN 5 MG TABLET PO SCH (21:00)
--- NOTE | 2022-07-26 02:57 | P.PN ---
Date of Service: 07/25/22 Subjective Patient's wound was left open. We will arrange for IV antibiotic therapy at discharge. Outpatient cardiology follow-up/vascular surgery follow-up for possible stent placement of peripheral arterial disease. Will discuss with case management to arrange for outpatient IV vancomycin after hemodialysis. Physical Examination - Vital Signs Reviewed - Physical Exam General: Alert, In no apparent distress Respiratory: Clear to auscultation bilaterally, Normal air movement Cardiovascular: Regular rate/rhythm, Normal S1 S2, Abnormal pulses (diminished in left foot) Gastrointestinal: Normal bowel sounds, No tenderness Musculoskeletal: No clubbing Integumentary: Amputation of the left great toe with open wound; Vivian drain Neurological: No focal deficits Assessment and Plan - Problems (Diagnosis) (1) Gangrene of toe of left foot Current Visit: Yes Status: Acute (2) End stage renal disease Current Visit: Yes Status: Chronic (3) Atrial fibrillation Current Visit: Yes Status: Chronic Atrial fibrillation type: unspecified Qualified Code(s): I48.91 - Unspecified atrial fibrillation (4) Diabetes Current Visit: Yes Status: Chronic Diabetes mellitus type: type 2 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 Continue with IV antibiotics and arrange for discharge planning to be given after hemodialysis -Nephrology consulted for hemodialysis. -Arterial ultrasound demonstrating "Moderate left mid and distal lower extremity arterial disease." Cardiology consultation -Glucose monitoring with moderate sliding scale. She has been hyperglycemic. Check a1c. -Resume BP medications. Hydralazine for spikes, she has been hypertensive. -Monitor and replete electrolytes per protocol. -Reconcile and continue home medications. -Prophylaxis with Lovenox; hold Eliquis -Full code. Discharge Plan: [facility] Plan to discharge in: Greater than 24 hrs - Advance Directives Does patient have a Living Will: No Does patient have a Durable POA for Healthcare: No - Code Status/Comfort Care Code Status Assessed: Yes Code Status: Full Code Physician Review: Patient Assessed, Agree with Above Assessment and Plan Critical Care: No Time Spent Managing Pts Care (In Minutes): 50
--- NOTE | 2022-07-26 02:59 | P.PN ---
Date of Service: 07/24/22 Subjective At this time, we will continue with IV antibiotics. Patient to go to the operating room. Cardiology consultation pending. Physical Examination - Vital Signs Reviewed - Physical Exam General: Alert, In no apparent distress Respiratory: Clear to auscultation bilaterally, Normal air movement Cardiovascular: Regular rate/rhythm, Normal S1 S2, Abnormal pulses (diminished in left foot) Gastrointestinal: Normal bowel sounds, No tenderness Musculoskeletal: No clubbing Integumentary: Amputation of the left great toe with open wound; Vivian drain Neurological: No focal deficits Assessment and Plan - Problems (Diagnosis) (1) Gangrene of toe of left foot Current Visit: Yes Status: Acute (2) End stage renal disease Current Visit: Yes Status: Chronic (3) Atrial fibrillation Current Visit: Yes Status: Chronic Atrial fibrillation type: unspecified Qualified Code(s): I48.91 - Unspecified atrial fibrillation (4) Diabetes Current Visit: Yes Status: Chronic Diabetes mellitus type: type 2 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 Continue with IV antibiotics and arrange for discharge planning to be given after hemodialysis -Nephrology consulted for hemodialysis. -Arterial ultrasound demonstrating "Moderate left mid and distal lower extremity arterial disease." Cardiology consultation -Glucose monitoring -Resume BP medications. Hydralazine for spikes, she has been hypertensive. -Monitor and replete electrolytes per protocol. -Reconcile and continue home medications. -Prophylaxis with Lovenox; hold Eliquis -Full code. Discharge Plan: [facility] Plan to discharge in: Greater than 24 hrs - Advance Directives Does patient have a Living Will: No Does patient have a Durable POA for Healthcare: No - Code Status/Comfort Care Code Status Assessed: Yes Code Status: Full Code Physician Review: Patient Assessed, Agree with Above Assessment and Plan Critical Care: No Time Spent Managing Pts Care (In Minutes): 50
[2022-07-26 05:02] LABS: Albumin 2.4 g/dL (3.4-5.0); Phosphorus 3.4 mg/dL (2.5-4.9); Potassium 3.8 mEq/L (3.5-5.1)
[2022-07-26] MEDS: LEVOTHYROXINE SOD 0.125 MG TAB PO SCH (05:09)
[2022-07-26] MEDS: ACETAMINOPHEN 500 MG TAB PO PRN (06:14)
[2022-07-26] MEDS: INSULIN -REGULAR HUMAN 50 UNIT/0.5 ML ML SQ SCH ×2 (07:30→11:30)
[2022-07-26] MEDS: AMINO ACIDS/PROTEIN HYDROLYS 30 ML LIQUID.PKT PO SCH (09:00)
[2022-07-26] MEDS: METOPROLOL XL 25 MG TAB PO SCH (09:00)
[2022-07-26] MEDS: INSULIN 70/30 100 UNITS/ML SQ SCH (09:17)
[2022-07-26] MEDS: AMIODARONE HCL 200 MG TAB PO SCH (09:18)
[2022-07-26] MEDS: DOCUSATE NA 100 MG CAP PO SCH (09:18)
[2022-07-26] MEDS: lisinopriL 5 MG TAB PO SCH (09:18)
[2022-07-26] MEDS: APIXABAN 2.5 MG TABLET PO SCH (09:19)
[2022-07-26] MEDS: DULOXETINE 20 MG CAP PO SCH (09:19)
[2022-07-26] MEDS: ZINC SULFATE 220 MG CAP PO SCH (09:19)
--- NOTE | 2022-07-26 09:40 | P.PN ---
Date of Service: 07/26/22 Chief Complaint: Gangrene Left Great Toe Subjective: Patient in bed, A&Ox3, no complaints, not in distress. at bedside. Physical Examination Temp Pulse Resp BP Pulse Ox 97.5 F 50 17 150/68 H 97 07/26/22 08:00 07/26/22 09:18 07/26/22 08:00 07/26/22 09:18 07/26/22 08:00 General: Alert, In no apparent distress, Oriented x3 HEENT: Atraumatic, Normocephalic Neck: Supple, JVD not distended Respiratory: Normal air movement, Diminished Cardiovascular: No edema, pedal pulses nonpalpable. Right chest wall HD cath noted. Gastrointestinal: Normal bowel sounds, Soft and benign Musculoskeletal: No clubbing, No swelling Integumentary: Pressure ulcer (sacrum), s/p amputation of left great toe. Neurological: Normal speech, Normal tone, Normal affect Urinary: PureWick draining reid colored urine Laboratory Data - Reviewed Microbiology Data - Reviewed Imagings Data: - Reviewed Medications List Reviewed: Yes Conclusions/Impression: Problem List Gangrene Left Great Toe Pulmonary Hypertension Hypertension Hyperlipidemia ESRD Diabetes Mellitus Type II Hypothyroidism Atrial fibrillation on eliquis Mild PCM Hx CVA Peripheral Arterial Disease Gangrene of Left First Toe - Complicated by diabetes mellitus and peripheral arterial disease - Venous ultrasound negative for DVT - Left foot XR "Lucency within a the base of the first distal phalanx may indicate osteomyelitis. Evaluation with MRI is recommended." - S/p left first toe amputation 07/24 - Currently on Cefepime (07/23) and Vancomycin (07/22) No leukocytosis. Afebrile. Wound culture coccyx 07/22: Enterobacter cloacae, susceptible to Cefepime and Bactrim Recommendations - Patient to continue Vancomycin with dialysis. - Enterobacter wound culture: Start on Bactrim PO. Spoke with pharmacy to renally dose. Continue antibiotic x 14 days (she was started on cefepime 07/23). Discontinue cefepime. - s/p amputation of left first toe 07/24. Continue wound care per surgery team - Continue supportive care and nutritional support as needed ID will follow up and monitor patient closely. Case discussed with Boogie Etaon
[2022-07-26] MEDS ORDERED: SMZ./TMP. 800/160 MG TABLET PO SCH ×2 (11:00→18:00)
[2022-07-26 11:53] VITALS: BP 144/65; TEMP 97.6
== END 2022-07-26 15:26 | DRG 255 ==
LOC: ER 18:29 → ERHOLD 20:18 → 2ND 21:17
PROVIDERS: ADMIT Hospitalist; ATTEND Hospitalist
PROC: 0Y6Q0Z0 Detachment at Left 1st Toe, Complete, Open Approach (ICD-10-PCS; principal; 2022-07-25)
DX: E11.52 Type 2 diabetes mellitus with diabetic peripheral angiopathy with gangrene (principal); N18.6 End stage renal disease; M86.172 Other acute osteomyelitis, left ankle and foot; M86.672 Other chronic osteomyelitis, left ankle and foot; I69.351 Hemiplegia and hemiparesis following cerebral infarction affecting right dominant side; I12.0 Hypertensive chronic kidney disease with stage 5 chronic kidney disease or end stage renal disease; E87.1 Hypo-osmolality and hyponatremia; N25.81 Secondary hyperparathyroidism of renal origin; E11.69 Type 2 diabetes mellitus with other specified complication; L89.322 Pressure ulcer of left buttock, stage 2; L89.312 Pressure ulcer of right buttock, stage 2; E11.22 Type 2 diabetes mellitus with diabetic chronic kidney disease; E11.40 Type 2 diabetes mellitus with diabetic neuropathy, unspecified; E11.65 Type 2 diabetes mellitus with hyperglycemia; I48.91 Unspecified atrial fibrillation; E78.5 Hyperlipidemia, unspecified; E89.0 Postprocedural hypothyroidism; F03.90 Unspecified dementia, unspecified severity, without behavioral disturbance, psychotic disturbance, mood disturbance, and anxiety; I25.10 Atherosclerotic heart disease of native coronary artery without angina pectoris; D63.1 Anemia in chronic kidney disease; B96.89 Other specified bacterial agents as the cause of diseases classified elsewhere; G47.00 Insomnia, unspecified; Z79.4 Long term (current) use of insulin; Z95.0 Presence of cardiac pacemaker; Z99.2 Dependence on renal dialysis; Z79.01 Long term (current) use of anticoagulants; Z79.890 Hormone replacement therapy; Z90.710 Acquired absence of both cervix and uterus; Z79.899 Other long term (current) drug therapy; Z20.822 Contact with and (suspected) exposure to COVID-19
CPT/HCPCS: 36415; 80048; 80053; 80061; 80069; 80202; 82947; 83036; 83735; 84100; 84439; 84443; 85025; 86706; 87070; 87077; 87186; 87205; 87340; 87635; 88305; 88311; 90935; 93926; 93971; 94010; 96374; 96375; 99285; J0171; J0360; J0692; J0696; J1100; J1644; J1815; J2001; J2250; J2704; J7040; J7050

== ENCOUNTER 2022-08-15 15:04 | Emergency (ER) | payer OTHER ==
--- OUTSIDE RECORDS SUMMARY | 2022-08-15 15:12 | XMS REPORT | Continuity of Care Document ---
:1940 Author Organization [facility] t Address [address] [place] [address] Care Team Providers Name Role Phone SARIAH HART Primary Care Physician Unavailable Jacqui Pate Attending Clinician Unavailable KACIE CALDERON Attending Clinician Unavailable Vitor Attending Clinician Unavailable EM ALEX Attending Clinician Unavailable KACIE CALDERON Admitting Clinician Unavailable Vitor Admitting Clinician Unavailable EM ALEX Admitting Clinician Unavailable Payers Payer Name Policy Type Policy Number Effective Date Expiration Date S santiago [facility]/MEDICARE [id number] 2016 COMPLETE 00:00:00 [facility] MEDICARE [id number] COMPLETE (MEDICARE REPLACEMENT HMO) [facility] 53 [id number] 2021 Common ADVANTAGE WELLMED 00:00:00 [facility] - [facility] AARP MEDICARE 53 [id number] 2020 Common ADVANTAGE WELLMED 00:00:00 [facility] Problems Condition Condition Condition Status [...] arterioscl 00:00: Me dical erosis erosis 00 [place] Accelerate Accelerate Disease Active [facility] d d 02-12 [facility] hypertensi hypertensi 00:00: Me dical on on 00 [place] S/P S/P Disease Active [facility] radiofrequ radiofrequ 02-12 kes ency ency 00:00: Medical ablation ablation 00 Center operation operation 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[address] yue yue nce 04-07 [facility] re-entry re-entry 00:00: Medica l tachycardi tachycardi 00 nter a) a) Stroke Stroke Disease Recurre 2016-[address] (cerebrum) (cerebrum) nce 04-03 Bev kes 00:00: Medical 00 Center Essential Essential Problem Com mon hypertensi hypertensi Sp chino on on - [facility] Dyslipidem Dyslipidem Problem C ommon ia ia Spirit - [facility] Postoperat Hypothyroi Problem C ommon zena dism Spirit Hypothyroi associated - CHI dism with surgical [facility] procedure [facility] Hemiplegia Hemiplegia Problem C ommon of right affecting Spiri t dominant right - CHI side dominant side [facility] Long-term snf Problem Com mon current (current) Spirit use of use of - CHI insulin insulin [facility] Diabetic Diabetes Problem Commo n neuropathy mellitus Spir it with - CHI diabetic neuropathy [facility] [id number] Chronic Problem Commo n kidney Spirit disease, - CHI stage 4 (severe) [facility] [id number] Melba Problem Common tropicalis Spirit infection - [facility] [id number] 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, mild [facility] [id number] Bilateral Problem Com mon lower Spirit extremity - [facility] edema [facility] [id number] Type 2 Problem Commo n 07 diabetes Spirit mellitus - CHI with diabetic [facility] chronic Medical kidney Center disease [id number] Chronic Problem 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 - CHI failure, unspecifie [facility] d heart Medical failure Center type History of History of Problem C ommon cerebrovas CVA Spirit cular (cerebrova - [facility]I accident scular St without accident) [facility] Allergies, Adverse Reactions, Alerts Allergy Allergy Status Severity Reaction(s) Onset Inactive Treating Comm ents Source Name Type Date Date Clinician NO KNOWN Allergy Active [facility] Family History Family Member Diagnosis Comments Start Date Stop Date Source Natural father Diabetes [facility] Natural mother Hypertension [facility] Social History Social Habit Start Date Stop Date Quantity Comments Source Gender identity [facility] Sexual orientation [facility] History of Tobacco [facility] - Use [facility] Alcohol intake 2020-08-09 2020-08-09 Current [facility] 00:00:00 00:00:00 non-drinker of Medical Ce nter alcohol (finding) History of Social 2017-12-24 2017-12-[address] function 00:00:00 00:00:00 Hospital Tobacco use and 2017-07-24 2017-07-24 Smokeless Alev[facility] exposure 00:00:00 00:00:00 tobacco non-user Hospital Sex Assigned At [birth year] [facility] 00[facility]00:00 00:00:00 [facility] Center Smoking Status Start Date Stop Date Source Never Smoker [facility] Medications Ordered Filled Start Stop Current Ordering Indication Dosage Frequency Signature Comments Components Source Medication Medication Date Date Medication? Clinician (SIG) Name Name Levothyroxi Levothyroxi No QD Levothyrox ne Sodium ne Sodium 1-03 ine Sodium 88 MCG 88 MCG 00:00: 88 MCG 00 Benzonatate Benzonatate 2021- 1{capsu TID Benzonatat 100 MG 100 MG [...] MCG 00:00: 175 MCG 00 aspirin 81 2020- Yes 81mg QD Take [address] MG EC 6-29 by mouth [facility] tablet 23:38: daily. Medical 15 [place] metoprolol Yes 25mg QD Take [address] (TOPROL-XL) 6-29 by mouth Luke s 25 MG 24 hr 23:38: daily. Medi dragan tablet 15 Center insulin Yes Inject [facility] 70/30, 6-29 sub[facility]ukes insulin 23:38: usly 2 Medical NPH-insulin 15 (two) Center regular, times (HumuLIN daily 70/30) 100 before unit/mL meals. (70-30) injection cloNIDine Yes .1mg Q.[id number] Take 0.[address] HCL 6-29 [id number] mg by Lukes (CATAPRES) 23:38: 3D mouth [...] 20 MG 23:38: daily. Medical capsule 15 [place] furosemide Yes 80mg QD Take [address] (LASIX) 80 6-29 by mouth [facility]ukes MG tablet 23:38: daily. Medica l 15 [place] metoprolol Yes 12.5mg Take 12.[address] tartrate 6-29 mg by Lukes (LOPRESSOR 23:38: mouth. Medic al ORAL) 15 [place] atorvastati Yes 80mg QD Take [address] n (LIPITOR) 6-29 by mouth Luke s 80 MG 23:38: daily. Medical tablet 15 [place] famotidine Yes 20mg QD Take [address] (PEPCID) 20 6-29 by mouth Luke s MG tablet 23:38: daily. Medica l 15 [place] GABAPENTIN Yes 200mg QD Take [address] ORAL 6-29 mg by Lukes 23:38: mouth Medical 15 daily. Center atorvastati Yes 80mg QD Take [address] n (LIPITOR) 6-29 by mouth Luke s 80 MG 23:38: daily. Medical tablet 15 [place] famotidine Yes 20mg QD Take [address] (PEPCID) 20 6-29 by mouth Luke s MG tablet 23:38: daily. Medica l 15 Center GABAPENTIN Yes 200mg QD Take [address] ORAL 6-29 mg by Lukes 23:38: mouth Medical 15 daily. [place] aspirin 81 Yes 81mg QD Take 81 [...] unit/mL meals. (70-30) injection cloNIDine Yes .1mg Q.[id number] Take 0.[address] HCL 6-29 [id number] mg by Lukes (CATAPRES) 23:38: 3D mouth [...] MG tablet 23:38: daily. Medica l 15 [place] GABAPENTIN Yes 200mg QD Take [address] ORAL 6-29 mg by Lukes 23:38: mouth Medical 15 daily. [place] aspirin 81 Yes 81mg QD Take [address] MG EC 6-29 by mouth [facility] tablet 23:38: daily. Medical 15 Center metoprolol Yes 25mg QD Take [address] (TOPROL-XL) 6-29 by mouth Luke s 25 MG 24 hr 23:38: daily. Medi dragan tablet 15 [place] insulin Yes Inject [facility] 70/30, 6-29 subcutaneo Lukes insulin 23:38: usly 2 Medical NPH-insulin 15 (two) Center regular, times (HumuLIN daily 70/30) 100 before unit/mL meals. (70-30) injection cloNIDine Yes .1mg Q.[id number] Take 0.[address] HCL 6-29 [id number] mg by Lukes (CATAPRES) 23:38: 3D mouth [...] 20 MG 23:38: daily. Medical capsule 15 [place] furosemide Yes 80mg QD Take [address] (LASIX) 80 6-29 by mouth Lukes MG tablet 23:38: daily. Medica l 15 [place] metoprolol Yes 12.5mg Take 12.[address] tartrate 6-29 mg by Lukes (LOPRESSOR 23:38: mouth. Medic al ORAL) 15 [place] atorvastati Yes 80mg QD Take [address] n (LIPITOR) 6-29 by mouth Luke s 80 MG 23:38: daily. Medical tablet 15 [place] famotidine Yes 20mg QD Take [address] (PEPCID) 20 6-29 by mouth Luke s MG tablet 23:38: daily. Medica l 15 [place] GABAPENTIN Yes 200mg QD Take [address] ORAL 6-29 mg by Lukes 23:38: mouth Medical 15 daily. [place] aspirin 81 Yes 81mg QD Take [address] MG EC 6-29 by mouth Lukes tablet 23:38: daily. Medical [address] [place] [address] metoprolol Yes 25mg QD Take [address] (TOPROL-XL) 6-29 by mouth Luke s 25 MG 24 hr 23:38: daily. Medi dragan tablet 15 [place] insulin Yes Inject [facility] 70/30, 6-29 subcutaneo Lukes insulin 23:38: usly 2 Medical NPH-insulin 15 (two) [place] regular, times (HumuLIN daily 70/30) 100 before unit/mL meals. (70-30) injection cloNIDine Yes .1mg Q.[id number] Take 0.[address] HCL 6-29 [id number] mg by Lukes (CATAPRES) 23:38: 3D mouth [...] 80 MG 23:38: daily. Medical tablet 15 [place] famotidine Yes 20mg QD Take [address] (PEPCID) 20 6-29 by mouth Luke s MG tablet 23:38: daily. Medica l 15 [place] GABAPENTIN Yes 200mg QD Take [address] ORAL 6-29 mg by Lukes 23:38: mouth Medical 15 daily. [place] aspirin 81 Yes 81mg QD Take [address] MG EC 6-29 by mouth Lukes tablet 23:38: daily. Medical 15 [place] metoprolol Yes 25mg QD Take [address] (TOPROL-XL) 6-29 by mouth Luke s 25 MG 24 hr 23:38: daily. Medi dragan tablet 15 Center insulin Yes Inject [facility] 70/30, 6-29 subcutaneo Lukes insulin 23:38: usly 2 Medical NPH-insulin 15 (two) Center regular, times (HumuLIN daily 70/30) 100 before unit/mL meals. (70-30) injection cloNIDine Yes .1mg Q.[id number] Take 0.[address] HCL 6-29 [id number] mg by Lukes (CATAPRES) 23:38: 3D mouth [...] 20 MG 23:38: daily. Medical capsule 15 [place] furosemide Yes 80mg QD Take [address] (LASIX) 80 6-29 by mouth Lukes MG tablet 23:38: daily. Medica l 15 [place] metoprolol Yes 12.5mg Take 12.[address] tartrate 6-29 mg by Lukes (LOPRESSOR 23:38: mouth. Medic al ORAL) 15 [place] atorvastati Yes 80mg QD Take [address] n (LIPITOR) 6-29 by mouth Luke s 80 MG 23:38: daily. Medical tablet 15 [place] famotidine Yes 20mg QD Take [address] (PEPCID) 20 6-29 by mouth Luke s MG tablet 23:38: daily. Medica l 15 [place] GABAPENTIN Yes 200mg QD Take [address] ORAL 6-29 mg by Lukes 23:38: mouth Medical 15 daily. [place] aspirin 81 Yes 81mg QD Take [address] MG EC 6-29 by mouth Lukes tablet 23:38: daily. Medical 15 [place] metoprolol Yes 25mg QD Take [address] (TOPROL-XL) 6-29 by mouth Luke s 25 MG 24 hr 23:38: daily. Medi dragan tablet 15 [place] insulin Yes Inject [facility] 70/30, 6-29 subcutaneo Lukes insulin 23:38: usly 2 Medical NPH-insulin 15 (two) Center regular, times (HumuLIN daily 70/30) 100 before unit/mL meals. (70-30) injection cloNIDine Yes .1mg Q.[id number] Take 0.[address] HCL 6-29 [id number] mg by Lukes (CATAPRES) 23:38: 3D mouth [...] 20 MG 23:38: daily. Medical capsule 15 [place] furosemide Yes 80mg QD Take [address] (LASIX) 80 6-29 by mouth Lukes MG tablet 23:38: daily. Medica l 15 [place] metoprolol Yes 12.5mg Take 12.[address] tartrate 6-29 mg by Lukes (LOPRESSOR 23:38: mouth. Medic al ORAL) 15 [place] atorvastati Yes 80mg QD Take [address] n (LIPITOR) 6-29 by mouth Luke s 80 MG 23:38: daily. Medical tablet 15 [place] famotidine Yes 20mg QD Take [address] (PEPCID) 20 6-29 by mouth Luke s MG tablet 23:38: daily. Medica l 15 [place] GABAPENTIN Yes 200mg QD Take [address] ORAL 6-29 mg by Lukes 23:38: mouth Medical 15 daily. [place] aspirin 81 Yes 81mg QD Take [address] MG EC 6-29 by mouth Lukes tablet 23:38: daily. Medical 15 [place] metoprolol Yes 25mg QD Take [address] (TOPROL-XL) 6-29 by mouth Luke s 25 MG 24 hr 23:38: daily. Medi dragan tablet 15 [place] insulin Yes Inject [facility] 70/30, 6-29 subcutaneo Lukes insulin 23:38: usly 2 Medical NPH-insulin 15 (two) Center regular, times (HumuLIN daily 70/30) 100 before unit/mL meals. (70-30) injection cloNIDine Yes .1mg Q.[id number] Take 0.[address] HCL 6-29 [id number] mg by Lukes (CATAPRES) 23:38: 3D mouth [...] 20 MG 23:38: daily. Medical capsule 15 [place] furosemide Yes 80mg QD Take [address] (LASIX) 80 6-29 by mouth Lukes MG tablet 23:38: daily. Medica l 15 [place] metoprolol Yes 12.5mg Take 12.[address] tartrate 6-29 mg by Lukes (LOPRESSOR 23:38: mouth. Medic al ORAL) 15 [place] atorvastati Yes 80mg QD Take [address] n (LIPITOR) 6-29 by mouth Luke s 80 MG 23:38: daily. Medical tablet 15 [place] famotidine Yes 20mg QD Take [address] (PEPCID) 20 6-29 by mouth Luke s MG tablet 23:38: daily. Medica l 15 [place] GABAPENTIN Yes 200mg QD Take [address] ORAL 6-29 mg by Lukes 23:38: mouth Medical 15 daily. [place] aspirin 81 Yes 81mg QD Take [address] MG EC 6-29 by mouth Lukes tablet 23:38: daily. Medical 15 [place] metoprolol Yes 25mg QD Take [address] (TOPROL-XL) 6-29 by mouth Luke s 25 MG 24 hr 23:38: daily. Medi dragan tablet 15 Center insulin Yes Inject [facility] 70/30, 6-29 subcutaneo Lukes insulin 23:38: usly 2 Medical NPH-insulin 15 (two) Center regular, times (HumuLIN daily 70/30) 100 before unit/mL meals. (70-30) injection cloNIDine Yes .1mg Q.[id number] Take 0.[address] HCL 6-29 [id number] mg by Lukes (CATAPRES) 23:38: 3D mouth [...] 20 MG 23:38: daily. Medical capsule 15 [place] furosemide Yes 80mg QD Take [address] (LASIX) 80 6-29 by mouth Lukes MG tablet 23:38: daily. Medica l 15 [place] metoprolol Yes 12.5mg Take 12.[address] tartrate 6-29 mg by Lukes (LOPRESSOR 23:38: mouth. Medic al ORAL) 15 [place] atorvastati Yes 80mg QD Take [address] n (LIPITOR) 6-29 by mouth Luke s 80 MG 23:38: daily. Medical tablet 15 [place] famotidine Yes 20mg QD Take [address] (PEPCID) 20 6-29 by mouth Luke s MG tablet 23:38: daily. Medica l 15 [place] GABAPENTIN Yes 200mg QD Take [address] ORAL 6-29 mg by Lukes 23:38: mouth Medical 15 daily. [place] aspirin 81 Yes 81mg QD Take 81 [...] unit/mL meals. (70-30) injection cloNIDine Yes .1mg Q.[id number] Take 0.[address] HCL 6-29 [id number] mg by Lukes (CATAPRES) 23:38: 3D mouth [...] 20 MG 23:38: daily. Medical capsule 15 [place] furosemide Yes 80mg QD Take [address] (LASIX) 80 6-29 by mouth Lukes MG tablet 23:38: daily. Medica l 15 [place] metoprolol Yes 12.5mg Take 12.[address] tartrate 6-29 mg by Lukes (LOPRESSOR 23:38: mouth. Medic al ORAL) 15 [place] atorvastati Yes 80mg QD Take [address] n (LIPITOR) 6-29 by mouth Luke s 80 MG 23:38: daily. Medical tablet 15 [place] famotidine Yes 20mg QD Take [address] (PEPCID) 20 6-29 by mouth Luke s MG tablet 23:38: daily. Medica l 15 [place] GABAPENTIN Yes 200mg QD Take [address] ORAL 6-29 mg by Lukes 23:38: mouth Medical 15 daily. Center aspirin 81 Yes 81mg QD Take [address] MG EC 6-29 by mouth Lukes tablet 23:38: daily. Medical 15 [place] aspirin 81 0 Yes 81mg QD Take [address] MG EC 6-29 by mouth Lukes tablet 23:38: daily. [facility] 15 [place] metoprolol Yes 25mg QD Take [address] (TOPROL-XL) 6-29 by mouth Luke s 25 MG 24 hr 23:38: daily. Medi dragan tablet 15 [place] insulin Yes Inject [facility] 70/30, 6-29 subcutaneo Lukes insulin 23:38: usly 2 Medical NPH-insulin 15 (two) Center regular, times (HumuLIN daily 70/30) 100 before unit/mL meals. (70-30) injection cloNIDine Yes .1mg Q.[id number] Take 0.[address] HCL 6-29 [id number] mg by Lukes (CATAPRES) 23:38: 3D mouth [...] 20 MG 23:38: daily. Medical capsule 15 [place] metoprolol Yes 25mg QD Take [address] (TOPROL-XL) 6-29 by mouth Luke s 25 MG 24 hr 23:38: daily. Medi dragan tablet 15 [place] furosemide Yes 80mg QD Take [address] (LASIX) 80 6-29 by mouth Lukes MG tablet 23:38: daily. Medica l 15 [place] metoprolol Yes 12.5mg Take 12.[address] [...] Lukes 23:38: mouth Medical 15 daily. Center insulin Yes Inject [facility] 70/30, 6-29 subcutaneo Lukes insulin 23:38: usly 2 Medical NPH-insulin 15 (two) Center regular, times (HumuLIN daily 70/30) 100 before unit/mL meals. (70-30) injection cloNIDine Yes .1mg Q.[id number] Take 0.[address] HCL 6-29 [id number] mg by Lukes (CATAPRES) 23:38: 3D mouth [...] 80 MG 23:38: daily. Medical tablet 15 [place] famotidine Yes 20mg QD Take [address] (PEPCID) 20 6-29 by mouth Luke s MG tablet 23:38: daily. Medica l 15 [place] GABAPENTIN Yes 200mg QD Take [address] ORAL 6-29 mg by Lukes 23:38: mouth Medical 15 daily. [place] aspirin 81 Yes 81mg QD Take 81 [...] unit/mL meals. (70-30) injection cloNIDine Yes .1mg Q.[id number] Take 0.[address] HCL 6-29 [id number] mg by Lukes (CATAPRES) 23:38: 3D mouth [...] MG tablet 23:38: daily. Medica l 15 [place] metoprolol Yes 12.5mg Take 12.[address] tartrate 6-29 mg by Lukes (LOPRESSOR 23:38: mouth. Medic al ORAL) 15 Center atorvastati Yes 80mg QD Take [address] n (LIPITOR) 6-29 by mouth Luke s 80 MG 23:38: daily. Medical tablet 15 [place] famotidine Yes 20mg QD Take [address] (PEPCID) 20 6-29 by mouth Luke s MG tablet 23:38: daily. Medica l 15 [place] GABAPENTIN Yes 200mg QD Take [address] ORAL 6-29 mg by Lukes 23:38: mouth Medical 15 daily. [place] aspirin 81 Yes 81mg QD Take [address] MG EC 6-29 by mouth Lukes tablet 23:38: daily. Medical 15 [place] metoprolol Yes 25mg QD Take [address] (TOPROL-XL) 6-29 by mouth Luke s 25 MG 24 hr 23:38: daily. Medi dragan tablet 15 Center insulin Yes Inject [facility] 70/30, 6-29 subcutaneo Lukes insulin 23:38: usly 2 Medical NPH-insulin 15 (two) Center regular, times (HumuLIN daily 70/30) 100 before unit/mL meals. (70-30) injection cloNIDine Yes .1mg Q.[id number] Take 0.[address] HCL 6-29 [id number] mg by Lukes (CATAPRES) 23:38: 3D mouth [...] MG tablet 23:38: daily. Medica l 15 [place] metoprolol Yes 12.5mg Take 12.[address] tartrate 6-29 mg by Lukes (LOPRESSOR 23:38: mouth. Medic al ORAL) 15 Center BD Insulin BD Insulin 0 No TID BD Insulin Syr Syr 9-15 [...] ML ML ML BD Insulin BD Insulin 2019-0 No TID BD Insulin Syr Syr 9-15 [...] ML ML ML BD Insulin BD Insulin 0 No TID BD Insulin Syr Syr 9-15 [...] TID l (70-30) BEFORE injection MEALS atorvastati Yes TK 1 T PO M ethodi n (LIPITOR) 5-[address] 80 MG 00:00: Hospita tablet 00 l DULoxetine Yes TK 1 C PO Me thodi (CYMBALTA) 5-[address] 20 MG 00:00: Hospita capsule 00 l famotidine Yes TK 1 T PO Me thodi (PEPCID) 20 5-[address] MG tablet 00:00: Hospita 00 l atorvastati Yes TK 1 T PO M ethodi n (LIPITOR) 5-[address] 80 MG 00:00: Hospita tablet 00 l DULoxetine Yes TK 1 C PO Me thodi (CYMBALTA) 5-[address] 20 MG 00:00: Hospita capsule 00 l famotidine Yes TK 1 T PO Me thodi (PEPCID) 20 5-[address] MG tablet 00:00: Hospita 00 l atorvastati Yes TK 1 T PO M ethodi n (LIPITOR) 5-[address] 80 MG 00:00: Hospita tablet 00 l DULoxetine Yes TK 1 C PO Me thodi (CYMBALTA) 5-[address] 20 MG 00:00: Hospita capsule 00 l famotidine Yes TK 1 T PO Me thodi (PEPCID) 20 5-[address] MG tablet 00:00: Hospita 00 l atorvastati 0 Yes TK 1 T PO M ethodi n (LIPITOR) 5-[address] 80 MG 00:00: Hospita tablet 00 l DULoxetine Yes TK 1 C PO Me [...] 80 MG 00:00: Hospita tablet 00 l atorvastati 2017-0 Yes TK 1 [...] MG tablet 00:00: Hospita 00 l DULoxetine 2018-0 Yes TK 1 C PO Me thodi (CYMBALTA) 5-[address] 20 MG 00:00: Hospita capsule 00 l atorvastati 2018-0 Yes TK 1 T PO M ethodi n (LIPITOR) 5-[address] 80 MG 00:00: Hospita tablet 00 l DULoxetine 2018-0 Yes TK 1 C PO Me thodi (CYMBALTA) 5-[address] 20 MG 00:00: Hospita capsule 00 l famotidine 2018-0 Yes TK 1 T PO Me thodi (PEPCID) 20 5-[address] MG tablet 00:00: Hospita 00 l famotidine 2018-0 Yes TK 1 [...] unit/mL 00 Center (3 mL) InPn injection acetaminoph acetaminoph No 1 Q8H acetaminop [facility] [...] Spirit OVER 65 OVER 65 10:58:00 - [facility] FLUZONE HIGH DOSE FLUZONE HIGH DOSE 2021-03-07 Completed [facility] OVER 65 OVER 65 10:58:00 - [facility] FLUZONE HIGH DOSE FLUZONE HIGH DOSE 2021-03-07 Completed [facility] OVER 65 OVER 65 10:58:00 [facility] FLUZONE HIGH DOSE FLUZONE HIGH DOSE 2021-03-07 Completed [facility] OVER 65 OVER 65 10:58:00 [facility] FLUZONE HIGH DOSE FLUZONE HIGH DOSE 2021-03-07 Completed [facility] OVER 65 OVER 65 10:58:00 - [facility] FLUZONE HIGH DOSE FLUZONE HIGH DOSE 2021-03-07 Completed [facility] OVER 65 OVER 65 10:58:00 - [facility] FLUZONE HIGH DOSE FLUZONE HIGH DOSE 2021-03-07 Completed [facility] OVER 65 OVER 65 10:58:00 - [facility] FLUZONE HIGH DOSE FLUZONE HIGH DOSE 2021-03-07 Completed [facility] OVER 65 OVER 65 10:58:00 - [facility] FLUZONE HIGH DOSE FLUZONE HIGH DOSE 2021-03-07 Completed [facility] OVER 65 OVER 65 10:58:00 - [facility] FLUZONE HIGH DOSE FLUZONE HIGH DOSE 2021-03-07 Completed [facility] OVER 65 OVER 65 10:58:00 - [facility] FLUZONE HIGH DOSE FLUZONE HIGH DOSE 2021-03-07 Completed [facility] OVER 65 OVER 65 10:58:00 - [facility] FLUZONE HIGH DOSE FLUZONE HIGH DOSE 2021-03-07 Completed [facility] OVER 65 OVER 65 10:58:00 - [facility] FLUZONE HIGH DOSE FLUZONE HIGH DOSE 2021-03-07 Completed [facility] OVER 65 OVER 65 10:58:00 - [facility] FLUZONE HIGH DOSE FLUZONE HIGH DOSE 2021-03-07 Completed [facility] OVER 65 OVER 65 10:58:00 - [facility] FLUZONE HIGH DOSE FLUZONE HIGH DOSE 2021-03-07 Completed [facility] OVER 65 OVER 65 10:58:00 - [facility] FLUZONE HIGH DOSE FLUZONE HIGH DOSE 2021-03-07 Completed [facility] OVER 65 OVER 65 10:58:00 - [facility] COVID-19 Vaccine COVID-19 Vaccine 2020-04-14 Completed [facility] (Dmitry) (Dmitry) 13:50:00 [facility] COVID-19 Vaccine COVID-19 Vaccine 2020-04-14 Completed [facility] (Dmitry) (Dmitry) 13:50:00 [facility] COVID-19 Vaccine COVID-19 Vaccine 2020-04-14 Completed [facility] (Dmitry) (Dmitry) 13:50:00 - [facility] COVID-19 Vaccine COVID-19 Vaccine 2020-04-14 Completed [facility] (Dmitry) (Dmitry) 13:50:00 - [facility] COVID-19 Vaccine COVID-19 Vaccine 2020-04-14 Completed [facility] (Dmitry) (Dmitry) 13:50:00 - [facility] COVID-19 Vaccine COVID-19 Vaccine 2020-04-14 Completed [facility] (Dmitry) (Dmitry) 13:50:00 - [facility] COVID-19 Vaccine COVID-19 Vaccine 2020-04-14 Completed [facility] (Dmitry) (Dmitry) 13:50:00 - [facility] COVID-19 Vaccine COVID-19 Vaccine 2020-04-14 Completed [facility] (Dmitry) (Dmitry) 13:50:00 - [facility] COVID-19 Vaccine COVID-19 Vaccine 2020-04-14 Completed [facility] (Dmitry) (Dmitry) 13:50:00 - [facility] COVID-19 Vaccine COVID-19 Vaccine 2020-04-14 Completed [facility] (Dmitry) (Dmitry) 13:50:00 - [facility] COVID-19 Vaccine COVID-19 Vaccine 2020-04-14 Completed [facility] (Dmitry) (Dmitry) 13:50:00 - [facility] COVID-19 Vaccine COVID-19 Vaccine 2020-04-14 Completed [facility] (Dmitry) (Dmitry) 13:50:00 - [facility] COVID-19 Vaccine COVID-19 Vaccine 2020-04-14 Completed [facility] (Dmitry) (Dmitry) 13:50:00 - [facility] COVID-19 Vaccine COVID-19 Vaccine 2020-04-14 Completed [facility] (Dmitry) (Dmitry) 13:50:00 [facility] COVID-19 Vaccine COVID-19 Vaccine 2020-04-14 Completed [facility] (Dmitry) (Dmitry) 13:50:00 - [facility] COVID-19 Vaccine COVID-19 Vaccine 2020-04-14 Completed [facility] (Dmitry) (Dmitry) 13:50:00 - [facility] Influenza Three-TIV 2017-01-31 [facility]:00 [facility] Center Influenza Three-TIV 2017-01-31 [facility] 00:00:00 [facility] Center Influenza Three-TIV 2017-01-31 [facility]:00:00 [facility] Influenza Three-TIV 2017-01-31 Com[facility] 00:00:00 [facility] Center Influenza Three-TIV 2017-01-31 Com[facility] 00:00:00 [facility] Center Influenza Three-TIV 2017-01-31 Com[facility] 00:00:00 [facility] Influenza Three-TIV 2017-01-31 Com[facility] 00:[facility]:00 [facility] [place] Influenza Three-TIV 2017-01-31 Completed [facility] 5+ YR 00:00:00 [facility] Influenza Three-TIV 2017-01-31 Completed [facility] 5+ YR 00[facility]00:00 [facility] Influenza Three-TIV 2017-01-31 Completed [facility] PF 5+ YR 00:00:00 [facility] Influenza Three-TIV 2017-01-31 Completed [facility] 5+ YR 00:00:00 [facility] Influenza Three-TIV 2017-01-31 Completed [facility] PF 5+ YR 00:00:00 [facility] Influenza Three-TIV 2017-01-31 Completed [facility] 5+ YR 00:00:00 [facility] Vital Signs Vital Name Observation Time Observation Value Comments Source HEIGHT 2020-08-08 13:02:00 165.1 cm WEIGHT 2020-08-08 13:02:00 104.327 kg BP Diastolic 2022-05-28 00:00:00 72 mm[Hg] [facility] Height 2022-05-28 00:00:00 65 [[facility]_i[facility] BMI (Body Mass Index) 2022-05-28 00:00:00 41.6 kg/m2 [facility] BP Systolic 2022-05-28 00:00:00 131 mm[Hg] [facility] Body Weight 2022-05-28 00:00:00 4000 [oz_av] [facility] height 2022-01-01 13:20:00 64 [in_i] [facility] weight 2022-01-01 13:20:00 230 [lb_av] [facility] temperature 2022-01-01 13:20:00 97.4 [degF] [facility] bmi 2022-01-01 13:20:00 39.48 kg/m2 [facility] oximetry 2022-01-01 13:20:00 98 % [facility] respiratory rate 2022-01-01 13:20:00 17 /min Comm on [facility] blood pressure 2022-01-01 13:20:00 132 mm[Hg] Common [facility] - systolic [facility] blood pressure 2022-01-01 13:20:00 80 mm[Hg] Common [facility] - diastolic [facility] height 2021-10-02 14:20:00 64 [in_i] [facility] weight 2021-10-02 14:20:00 230 [lb_av] [facility] temperature 2021-10-02 14:20:00 97.9 [degF] [facility] bmi 2021-10-02 14:20:00 39.48 kg/m2 [facility] oximetry 2021-10-02 14:20:00 97 % [facility] respiratory rate 2021-10-02 14:20:00 18 /min Comm on [facility] blood pressure 2021-10-02 14:20:00 138 mm[Hg] Common [facility] - systolic [facility] blood pressure 2021-10-02 14:20:00 86 mm[Hg] [facility] - [facility] height 2021-07-19 13:40:00 64 [in_i] Common [facility] weight 2021-07-19 13:40:00 230 [lb_av] [facility] temperature 2021-07-19 13:40:00 97.9 [degF] [facility] bmi 2021-07-19 13:40:00 39.48 kg/m2 [facility] oximetry 2021-07-19 13:40:00 97 % [facility] respiratory rate 2021-07-19 13:40:00 16 /min Comm on [facility] blood pressure 2021-07-19 13:40:00 161 mm[Hg] Common [facility] - systolic [facility] blood pressure 2021-07-19 13:40:00 90 mm[Hg] [facility] - diastolic [facility] height 2021-06-05 13:20:00 64 [in_i] [facility] weight 2021-06-05 13:20:00 230 [lb_av] [facility] temperature 2021-06-05 13:20:00 97.6 [degF] [facility] bmi 2021-06-05 13:20:00 39.48 kg/m2 [facility] oximetry 2021-06-05 13:20:00 96 % [facility] respiratory rate 2021-06-05 13:20:00 18 /min Comm on [facility] blood pressure 2021-06-05 13:20:00 142 mm[Hg] [facility] - systolic [facility] blood pressure 2021-06-05 13:20:00 70 mm[Hg] [facility] - diastolic [facility] height 2021-04-27 10:40:00 64 [in_i] [facility] weight 2021-04-27 10:40:00 230 [lb_av] Common S pirit [facility] temperature 2021-04-27 10:40:00 97.7 [degF] Common S [facility]irit [facility] bmi 2021-04-27 10:40:00 39.48 kg/m2 [facility] oximetry 2021-04-27 10:40:00 95 % [facility] respiratory rate 2021-04-27 10:40:00 18 /min Comm on [facility] blood pressure 2021-04-27 10:40:00 134 mm[Hg] [facility] - systolic [facility] blood pressure 2021-04-27 10:40:00 60 mm[Hg] [facility] - diastolic [facility] blood pressure 2021-03-07 09:40:00 132 mm[Hg] [facility] - systolic [facility] blood pressure 2021-03-07 09:40:00 80 mm[Hg] Common [facility] - diastolic [facility] height 2021-03-07 09:40:00 64 [in_i] [facility] weight 2021-03-07 09:40:00 230 [lb_av] [facility] temperature 2021-03-07 09:40:00 98.1 [degF] [facility] 2021-03-07 09:40:00 39.48 kg/m2 [facility] S [facility] oximetry 2021-03-07 09:40:00 98 % [facility] respiratory rate 2021-03-07 09:40:00 16 /min Comm on [facility] height 2021-03-07 10:20:00 64 [in_i] [facility] weight 2021-03-07 10:20:00 230 [lb_av] [facility] temperature 2021-03-07 10:20:00 98.1 [degF] [facility] S pirit [facility] bmi 2021-03-07 10:20:00 39.48 kg/m2 Common S pirit - [facility] oximetry 2021-03-07 10:20:00 98 % [facility] S [facility]irit - [facility] blood pressure 2021-03-07 10:20:00 132 mm[Hg] [facility] - systolic [facility] blood pressure 2021-03-07 10:20:00 80 mm[Hg] [facility] - diastolic [facility] HEIGHT 2020-08-08 13:02:00 165.1 cm WEIGHT 2020-08-08 13:02:00 104.327 kg Procedures Procedure Date / Time Performing Clinician Source Performed Pacemaker 2020-08-08 00:00:00 [facility]ion of Tunneled [facility] C[facility]ter Using Fluoroscopic Guidance Parathyroidectomy [facility] Thyroidectomy [facility] Plan of Care Planned Activity Planned Date Details Comments Source Future Scheduled Test 2022-10-11 Influenza Vaccine [facility] 00:00:00 (#1) [code = Medical Center Influenza Vaccine (#1)] Future Scheduled Test 2022-10-11 INFLUENZA VACCINE C [...] VACCINE (Season Ended)] Future Scheduled Test 2022-10-[address] [facility] 00:00:00 (Season Ended) [code Medical Center = Influenza Vaccine (Season Ended)] Future Scheduled Test 2022-08-01 COVID-19 VACCINE (#1) [facility] 09:52:10 [code = COVID-19 VACCINE (#1)] Future Scheduled Test 2022-08-01 SHINGLES VACCINES (1 [facility] 09:52:10 of 2) [code = SHINGLES VACCINES (1 of 2)] Future Scheduled Test 2022-08-01 65+ PNEUMOCOCCAL [facility] 09:52:10 VACCINE (1 - PCV) [code = 65+ PNEUMOCOCCAL VACCINE (1 - PCV)] Future Scheduled Test 2022-08-01 INFLUENZA VACCINE [facility] 09:52:10 [code = INFLUENZA VACCINE] Future Scheduled Test 2022-06-25 65+ PNEUMOCOCCAL [facility] 15:49:38 VACCINE (1 - PCV) [code = 65+ PNEUMOCOCCAL VACCINE (1 - PCV)] Future Scheduled Test 2022-06-25 INFLUENZA VACCINE [facility] 15:49:38 [code = INFLUENZA VACCINE] Future Scheduled Test 2022-06-25 COVID-19 VACCINE (#1) [facility] 15:49:38 [code = COVID-19 VACCINE (#1)] Future Scheduled Test 2022-06-25 SHINGLES VACCINES (1 [facility] 15:49:38 of 2) [code = SHINGLES VACCINES (1 of 2)] Future Scheduled Test 2022-06-25 65+ PNEUMOCOCCAL [facility] 15:49:38 VACCINE (1 - PCV) [code = 65+ PNEUMOCOCCAL VACCINE (1 - PCV)] Future Scheduled Test 2022-06-25 INFLUENZA VACCINE [facility] 15:49:38 [code = INFLUENZA VACCINE] Future Scheduled Test 2022-06-25 COVID-19 VACCINE (#1) [facility] 15:49:38 [code = COVID-19 VACCINE (#1)] Future Scheduled Test 2022-06-25 SHINGLES VACCINES (1 [facility] 15:49:38 of 2) [code = SHINGLES VACCINES (1 of 2)] Future Scheduled Test 2022-06-25 65+ PNEUMOCOCCAL [facility] 15:49:38 VACCINE (1 - PCV) [code = 65+ PNEUMOCOCCAL VACCINE (1 - PCV)] Future Scheduled Test 2022-06-25 INFLUENZA VACCINE [facility] 15:49:38 [code = INFLUENZA VACCINE] Future Scheduled Test 2022-06-25 COVID-19 VACCINE (#1) [facility] 15:49:38 [code = COVID-19 VACCINE (#1)] Future Scheduled Test 2022-06-25 SHINGLES VACCINES (1 [facility] 15:49:38 of 2) [code = SHINGLES VACCINES (1 of 2)] Future Scheduled Test 2022-06-25 65+ PNEUMOCOCCAL [facility] 15:49:38 VACCINE (1 - PCV) [code = 65+ PNEUMOCOCCAL VACCINE (1 - PCV)] Future Scheduled Test 2022-06-25 INFLUENZA VACCINE [facility] 15:49:38 [code = INFLUENZA VACCINE] Future Scheduled Test 2022-06-25 COVID-19 VACCINE (#1) [facility] 15:49:38 [code = COVID-19 VACCINE (#1)] Future Scheduled Test 2022-06-25 SHINGLES VACCINES (1 [facility] 15:49:38 of 2) [code = SHINGLES VACCINES (1 of 2)] Future Scheduled Test 2022-05-29 COVID-19 VACCINE (#1) [facility] 16:19:09 [code = COVID-19 VACCINE (#1)] Future Scheduled Test 2022-05-29 SHINGLES VACCINES (1 [facility] 16:19:09 of 2) [code = SHINGLES VACCINES (1 of 2)] Future Scheduled Test 2022-05-29 65+ PNEUMOCOCCAL [facility] 16:19:09 VACCINE (1 - PCV) [code = 65+ PNEUMOCOCCAL VACCINE (1 - PCV)] Future Scheduled Test 2022-05-29 INFLUENZA VACCINE [facility] 16:19:09 [code = INFLUENZA VACCINE] Future Scheduled Test 2022-05-29 COVID-19 VACCINE (#1) [facility] 16:19:09 [code = COVID-19 VACCINE (#1)] Future Scheduled Test 2022-05-29 SHINGLES VACCINES (1 [facility] 16:19:09 of 2) [code = SHINGLES VACCINES (1 of 2)] Future Scheduled Test 2022-05-29 65+ PNEUMOCOCCAL [facility] 16:19:09 VACCINE (1 - PCV) [code = 65+ PNEUMOCOCCAL VACCINE (1 - PCV)] Future Scheduled Test 2022-05-29 INFLUENZA VACCINE [facility] 16:19:09 [code = INFLUENZA VACCINE] Future Scheduled Test 2022-05-29 COVID-19 VACCINE (#1) [facility] 16:19:09 [code = COVID-19 VACCINE (#1)] Future Scheduled Test 2022-05-29 SHINGLES VACCINES (1 [facility] 16:19:09 of 2) [code = SHINGLES VACCINES (1 of 2)] Future Scheduled Test 2022-05-29 65+ PNEUMOCOCCAL [facility] 16:19:09 VACCINE (1 - PCV) [code = 65+ PNEUMOCOCCAL VACCINE (1 - PCV)] Future Scheduled Test 2022-05-29 INFLUENZA VACCINE [facility] 16:19:09 [code = INFLUENZA VACCINE] Future Scheduled Test 2022-03-08 COVID-19 VACCINE (#1) [facility] 05:54:06 [code = COVID-19 VACCINE (#1)] Future Scheduled Test 2022-03-08 SHINGLES VACCINES (1 [facility] 05:54:06 of 2) [code = SHINGLES VACCINES (1 of 2)] Future Scheduled Test 2022-03-08 65+ PNEUMOCOCCAL [facility] 05:54:06 VACCINE (1 - PCV) [code = 65+ PNEUMOCOCCAL VACCINE (1 - PCV)] Future Scheduled Test 2022-03-08 INFLUENZA VACCINE [facility] 05:54:06 [code = INFLUENZA VACCINE] Future Scheduled Test 2022-03-08 COVID-19 VACCINE (#1) [facility] 05:54:06 [code = COVID-19 VACCINE (#1)] Future Scheduled Test 2022-03-08 SHINGLES VACCINES (1 [facility] 05:54:06 of 2) [code = SHINGLES VACCINES (1 of 2)] Future Scheduled Test 2022-03-08 65+ PNEUMOCOCCAL [facility] 05:54:06 VACCINE (1 - PCV) [code = 65+ PNEUMOCOCCAL VACCINE (1 - PCV)] Future Scheduled Test 2022-03-08 INFLUENZA VACCINE [facility] 05:54:06 [code = INFLUENZA VACCINE] Future Scheduled [...] 00:00:00 measurement Medical Center (procedure) [code = 67604158] Future Scheduled Test 2017-08-[address] [facility] 00:00:00 measurement Medical Center (procedure) [code = 45126710] Future Scheduled Test 2017-08-[address] [facility] 00:00:00 measurement Medical Center (procedure) [code = 29537694] Future Scheduled Test 2017-08-[address] [facility] 00:00:00 measurement Medical Center (procedure) [code = 77963057] Future Scheduled Test 2017-08-[address] [facility] 00:00:00 measurement Medical Center (procedure) [code = 54959749] Future Scheduled Test 2017-08-[address] [facility] 00:00:00 measurement Medical Center (procedure) [code = 32026915] Future Scheduled Test 2017-08-[address] [facility] 00:00:00 measurement Medical Center (procedure) [code = 83612772] Future Scheduled Test 2017-08-[address] [facility] 00:00:00 measurement Medical Center (procedure) [code = 53042051] Future Scheduled Test 2017-08-[address] [facility] 00:00:00 measurement Medical Center (procedure) [code = 18213612] Future Scheduled Test 2017-08-[address] [facility] 00:00:00 measurement Medical Center (procedure) [code = 07165235] Future Scheduled Test 2017-08-[address] [facility] 00:00:00 measurement Medical Center (procedure) [code = 35865943] Future Scheduled Test 2017-08-[address] [facility] 00:00:00 measurement Medical Center (procedure) [code = 51554295] Future Scheduled Test 2017-08-[address] [facility] 00:00:00 measurement Medical Center (procedure) [code = 90293994] Future Scheduled Test 2017-02-11 MEDICARE ANNUAL [facility] [...] and Screening (12+)] Future Scheduled Test 1951-08-13 Urine screening for [facility] 00:00:00 protein (procedure) Medical Center [code = 816626727] Future Scheduled Test 1951-08-13 DIABETIC EYE EXAM [facility] 00:00:00 [code = DIABETIC EYE Medical Center EXAM] Future Scheduled Test 1951-08-13 Diabetic foot [facility] 00:00:00 examination Medical Center (regime/therapy) [code = 298270754] Future Scheduled Test 1951-08-13 Urine screening for [facility] 00:00:00 protein (procedure) Medical Center [code = 898571800] Future Scheduled Test 1951-08-13 DIABETIC EYE EXAM [facility] 00:00:00 [code = DIABETIC EYE Medical Center EXAM] Future Scheduled Test 1951-08-13 Diabetic foot [facility] 00:00:00 examination Medical Center (regime/therapy) [code = 157486570] Future Scheduled Test 1951-08-13 Urine screening for [facility] 00:00:00 protein (procedure) Medical Center [code = 677203280] Future Scheduled Test 1951-08-13 DIABETIC EYE EXAM [facility] 00:00:00 [code = DIABETIC EYE Medical Center EXAM] Future Scheduled Test 1951-08-13 Diabetic foot [facility] 00:00:00 examination Medical Center (regime/therapy) [code = 543669396] Future Scheduled Test 1951-08-13 Urine screening for [facility] 00:00:00 protein (procedure) Medical Center [code = 917189786] Future Scheduled Test 1951-08-13 DIABETIC EYE EXAM [facility] 00:00:00 [code = DIABETIC EYE Medical Center EXAM] Future Scheduled Test 1951-08-13 Diabetic foot [facility] 00:00:00 examination Medical Center (regime/therapy) [code = 248296853] Future Scheduled Test 1951-08-13 Urine screening for [facility] 00:00:00 protein (procedure) Medical Center [code = 155678980] Future Scheduled Test 1951-08-13 DIABETIC EYE EXAM [facility] 00:00:00 [code = DIABETIC EYE Medical Center EXAM] Future Scheduled Test 1951-08-13 Diabetic foot [facility] 00:00:00 examination Medical Center (regime/therapy) [code = 855222891] Future Scheduled Test 1951-08-13 Urine screening for [facility] 00:00:00 protein (procedure) Medical Center [code = 812294191] Future Scheduled Test 1951-08-13 DIABETIC EYE EXAM [facility] 00:00:00 [code = DIABETIC EYE Medical Center EXAM] Future Scheduled Test 1951-08-13 Diabetic foot [facility] 00:00:00 examination Medical Center (regime/therapy) [code = 614764354] Future Scheduled Test 1951-08-13 Urine screening for [facility] 00:00:00 protein (procedure) Medical Center [code = 055487935] Future Scheduled Test 1951-08-13 DIABETIC EYE EXAM [facility] 00:00:00 [code = DIABETIC EYE Medical Center EXAM] Future Scheduled Test 1951-08-13 Diabetic foot [facility] 00:00:00 examination Medical Center (regime/therapy) [code = 484339168] Future Scheduled Test 1951-08-13 Urine screening for [facility] 00:00:00 protein (procedure) Medical Center [code = 276161033] Future Scheduled Test 1951-08-13 DIABETIC EYE EXAM [facility] 00:00:00 [code = DIABETIC EYE Medical Center EXAM] Future Scheduled Test 1951-08-13 Diabetic foot [facility] 00:00:00 examination Medical Center (regime/therapy) [code = 452743838] Future Scheduled Test 1951-08-13 DIABETIC EYE EXAM [facility] 00:00:00 [code = DIABETIC EYE Medical Center EXAM] Future Scheduled Test 1951-08-13 Diabetic foot [facility] 00:00:00 examination Medical Center (regime/therapy) [code = 449858412] Future Scheduled Test 1951-08-13 Urine screening for [facility] 00:00:00 protein (procedure) Medical Center [code = 114319376] Future Scheduled Test 1951-08-13 Urine screening for [facility] 00:00:00 protein (procedure) Medical Center [code = 869635404] Future Scheduled Test 1951-08-13 DIABETIC EYE EXAM [facility] 00:00:00 [code = DIABETIC EYE Medical Center EXAM] Future Scheduled Test 1951-08-13 Diabetic foot [facility] 00:00:00 examination Medical Center (regime/therapy) [code = 723922770] Future Scheduled Test 1951-08-13 Urine screening for [facility] 00:00:00 protein (procedure) Medical Center [code = 167709785] Future Scheduled Test 1951-08-13 DIABETIC EYE EXAM [facility] 00:00:00 [code = DIABETIC EYE Medical Center EXAM] Future Scheduled Test 1951-08-13 Diabetic foot [facility] 00:00:00 examination Medical Center (regime/therapy) [code = 825590453] Future Scheduled Test 1951-08-13 Urine screening for [facility] 00:00:00 protein (procedure) Medical Center [code = 649711534] Future Scheduled Test 1951-08-13 DIABETIC EYE EXAM [facility] 00:00:00 [code = DIABETIC EYE Medical Center EXAM] Future Scheduled Test 1951-08-13 Diabetic foot [facility] 00:00:00 examination Medical Center (regime/therapy) [code = 945174138] Future Scheduled Test 1951-08-13 Urine screening for [facility] 00:00:00 protein (procedure) Medical Center [code = 722215149] Future Scheduled Test 1951-08-13 DIABETIC EYE EXAM [facility] 00:00:00 [code = DIABETIC EYE Medical Center EXAM] Future Scheduled Test 1951-08-13 Diabetic foot [facility] 00:00:00 examination Medical Center (regime/therapy) [code = 829841277] Future Scheduled Test 1947-08-13 PNEUMOCOCCAL 65+ YRS [...] = DXA [facility] 00:00:00 SCAN] [facility] Future Scheduled Test 1941 DXA SCAN [code = DXA [facility] 00:00:00 SCAN] [facility] Future Scheduled Test 1941 DXA SCAN [code = DXA [facility] 00:00:00 SCAN] [facility] Future Scheduled Test 1941 DXA SCAN [code = DXA [facility] 00:00:00 SCAN] [facility] Future Scheduled Test 1941 DXA SCAN [code = DXA [facility] 00:00:00 SCAN] [facility] Future Scheduled Test 1941 DXA SCAN [code = DXA [facility] 00:00:00 SCAN] [facility] Future Scheduled Test 1941 DXA SCAN [code = DXA [facility] 00:00:00 SCAN] [facility] Future Appointment 2027-06-05 Nannette Sylvester [address] [place] [address] 00:00:00 [place] [address] Encounters Start End Encounter Admission Attending Care Care Encounter Source Date/Time Date/Time Type Type Clinicians Facility Department ID 2022-04-11 Outpatient Barton, STLMLC STLMLC [id number] Common 15:39:00 Jacqui 21422 [facility] 2022-03-18 Outpatient Barton, STLMLC STLMLC [id number] Common 10:09:03 Jacqui 99295 [facility] 2022-03-04 Outpatient Barton, STLMLC STLMLC [id number] Common 14:03:03 Jacqui 79392 [facility] 2022-02-27 Outpatient Barton, STLMLC STLMLC [id number] Common 09:36:03 Jacqui 98648 [facility] 2022-02-12 Outpatient Barton, STLMLC STLMLC [id number] Common 10:34:01 Jacqui 98114 [facility] 2021-09-28 Outpatient Barton, STLMLC STLMLC [id number] Common 11:23:02 Jacqui [facility] 2021-08-28 Outpatient Barton, STLMLC STLMLC [id number] Common 10:04:02 Jacqui [facility] 2021-07-17 Outpatient Barton, STLMLC STLMLC [id number] Common 11:12:01 Jacqui [facility] 2021-06-06 Outpatient Barton, STLMLC STLMLC [id number] Common 07:42:01 Jacqui [facility] 2021-04-25 Outpatient Barton, STLMLC STLMLC [id number] Common 09:14:02 Jacqui [facility] 2021-03-14 Outpatient Barton, STLMLC STLMLC [id number] Common 13:05:01 Jacqui [facility] 2021-03-07 Outpatient Rio, STLMLC STLMLC [id number] Common 14:40:28 Jacqui [facility] 2020-11-19 Outpatient KACIE CALDERON [facility] Surgery [id number] [facility] 02:33:02 2022-08-03 2022-08-03 Outpatient [facility] PRIV PRIV [id number] [facility] 00:00:00 00:00:00 d_J [id number] Medica l 2022-08-03 2022-08-03 Outpatient [facility]_Tod PRIV PRIV [id number] [facility] 00:00:00 00:00:00 d_J [id number] Medica l 2022-08-03 2022-08-03 Outpatient [facility]_Tod PRIV PRIV [id number] [facility] 00:00:00 00:00:00 d_J [id number] Medica l 2022-08-02 2022-08-02 Outpatient [facility]Tod PRIV PRIV [id number] [facility] 00:00:00 00:00:00 d_J [id number] Medica l 2022-07-18 2022-07-18 Outpatient [facility]Tod PRIV PRIV [id number] [facility] 00:00:00 00:00:00 d_J [id number] Medica l 2022-07-18 2022-07-18 Outpatient [facility]_Tod PRIV PRIV [id number] [facility] 00:00:00 00:00:00 d_J [id number] Medica l 2022-07-18 2022-07-18 Outpatient [facility]Tod PRIV PRIV [id number] [facility] 00:00:00 00:00:00 d_J [id number] Medica l 2022-07-18 2022-07-18 Outpatient [facility]Tod PRIV PRIV [id number] [facility] 00:00:00 00:00:00 d_J [id number] Medica l 2022-07-02 2022-07-02 Outpatient [facility]_Tod PRIV PRIV [id number] [facility] 00:00:00 00:00:00 d_J [id number] Medica l 2022-07-02 2022-07-02 Outpatient GC_[facility]_Tod PRIV PRIV [id number] [facility] 00:00:00 00:00:00 d_J [id number] Medica l 2022-07-02 2022-07-02 Outpatient [facility]_Tod PRIV PRIV [id number] [facility] 00:00:00 00:00:00 d_J [id number] Medica l 2022-07-02 2022-07-02 Outpatient [facility]_Tod PRIV PRIV [id number] [facility] 00:00:00 00:00:00 d_J [id number] Medica l 2022-07-02 2022-07-02 Outpatient [facility]_Tod PRIV PRIV [id number] [facility] 00:00:00 00:00:00 d_J [id number] Medica l 2022-06-28 2022-06-28 Outpatient [facility]_Tod PRIV PRIV [id number] [facility] 00:00:00 00:00:00 d_J [id number] Medica l 2022-06-28 2022-06-28 Outpatient [facility]_Tod PRIV PRIV [id number] [facility] 00:00:00 00:00:00 d_J [id number] Medica l 2022-06-14 2022-06-14 Outpatient [facility]_Tod PRIV PRIV [id number] [facility] 00:00:00 00:00:00 d_J [id number] Medica l 2022-06-14 2022-06-14 Outpatient GC_[facility]_Tod PRIV PRIV [id number] [facility] 00:00:00 00:00:00 d_J [id number] Medica l 2022-06-14 2022-06-14 Outpatient [facility]_Tod PRIV PRIV [id number] [facility] 00:00:00 00:00:00 d_J [id number] Medica l 2022-05-30 2022-05-30 Outpatient GC_BAHC_Tod PRIV PRIV [id number] [facility] 00:00:00 00:00:00 d_J [id number] Medica l 2022-05-30 2022-05-30 Outpatient GC_[facility]_Tod PRIV PRIV [id number] [facility] 00:00:00 00:00:00 d_J [id number] Medica l 2022-05-28 2022-05-28 Outpatient GC_[facility]_Tod PRIV PRIV [id number] [facility] 00:00:00 00:00:00 d_J [id number] Medica l 2022-05-28 2022-05-28 Outpatient [facility]_Tod PRIV PRIV [id number] [facility] 00:00:00 00:00:00 d_J [id number] Medica l 2022-05-28 2022-05-28 [facility] [id number] [facility] 00:00:00 00:00:00 ARCELIA Sylvester: Health - Med ical 413 GC_[facility] [id number] , Ph. 2022-01-08 2022-01-08 (TEL) [facility] STLC [id number] Co mmon 00:00:00 00:00:00 Spirit - CHI [facility] 2022-01-01 2022-01-01 OFFICE STLMLC STLMLC [id number] Co mmon 00:00:00 00:00:00 VISIT Spirit ESTAB PT - CHI LEVEL 4 [facility] 2021-11-20 2021-11-20 (TEL) STLMLC STLMLC [id number] Co mmon 00:00:00 00:00:00 [facility] 2021-10-26 2021-10-26 (TEL) STLMLC STLMLC [id number] Co mmon 00:00:00 00:00:00 [facility] 2021-10-02 2021-10-02 OFFICE STLMLC STLMLC [id number] Co mmon 00:00:00 00:00:00 VISIT [facility] ESTAB PT - CHI LEVEL 4 [facility] 2021-08-17 2021-08-17 (TEL) STLMLC STLMLC [id number] Co mmon 00:00:00 00:00:00 [facility] 2021-07-19 2021-07-19 OFFICE STLMLC STLMLC [id number] Co mmon 00:00:00 00:00:00 VISIT [facility] ESTAB PT - CHI LEVEL 4 [facility] 2021-07-17 2021-07-17 (TEL) STLMLC STLMLC [id number] Co mmon 00:00:00 00:00:00 [facility] 2021-06-05 2021-06-05 OFFICE STLMLC STLMLC [id number] Co mmon 00:00:00 00:00:00 VISIT Spirit ESTAB PT - CHI LEVEL 4 [facility] 2021-05-08 2021-05-08 (TEL) STLMLC STLMLC [id number] Co mmon 00:00:00 00:00:00 [facility] 2021-04-27 2021-04-27 OFFICE STLMLC STLMLC [id number] Co mmon 00:00:00 00:00:00 VISIT EST Spir it PT LEVEL 3 - [facility] 2021-04-19 2021-04-19 (TEL) STLMLC STLMLC [id number] Co mmon 00:00:00 00:00:00 [facility] 2021-03-07 2021-03-07 OFFICE STLMLC STLMLC [id number] Co mmon 00:00:00 00:00:00 VISIT Spirit ESTAB PT - CHI LEVEL 4 [facility] 2021-03-07 2021-03-07 [facility] [id number] Common 00:00:00 00:00:00 [facility] Asa WELLNESS - CHI VISIT [facility] Results Test Description Test Time Test Comments Results Result Comments Source HEMOGLOBIN A1C 2022-01-01 00:00:00 Test Item Value Reference Range Interpretation Comme nts A1C (test code = 4548-4) 10.6 HEMOGLOBIN [id number] 00:00:00 Test Item Value Reference Range Interpretation Comments A1C (test code = 4548-4) 10.3 HEMOGLOBIN [id number] 00:00:00 Test Item Value Reference Range Interpretation Comments A1C (test code = 4548-4) 8.8 HEMOGLOBIN [id number] 00:00:00 Test Item Value Reference Range Interpretation Comments A1C (test code = 4548-4) 9.4 RAD, CHEST, 1 VIEW, NON [id number] 20:01:00Reason for exam:->s/p PPM implantShould this be performed at the bedside?->Yes [facility] 1940 Sex: FFINALREPORT AP chest dated 08/08/2020 Comment: Heart is in upper limits of normal in size. Pulmonary vasculature is unremarkable. Lungs are clear. No pulmonary infiltrate or pleural effusion. AICD is present. No pneumothorax is seen. Signed: [place] Ring MDReport Verified Date/Time: 08/08/2020 20:01:08 Reading Location: [address] Consult Reading Room [facility] [id number] 19:57:00 Test Item Value Reference Range Interpretation [...] S NOT APPLICABLE FOR DIALYSIS PATIEN TS. 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 - IVANIA CCBC W/PLT COUNT & AUTO [id number] 13:56:00 Test Item Value Reference Range Interpretation [...] (BEAKER) (test code = 2801) URINALYSIS W/ [id number] 14:41:00 Test Item Value Reference Range Interpretation [...] Urine, Straight code = 2795) Catheter POCT-GLUCOSE [id number] 11:21:00 Test Item Value Reference Range Interpretation Comments POC-GLUCOSE METER 167 mg/dL 70-110 H TESTED [place] [address] [facility] (test code = [place] 1538) [address] POCT-GLUCOSE [id number] 08:56:00 Test Item Value Reference Range Interpretation Comments POC-GLUCOSE METER 167 mg/dL 70-110 H TESTED AT [place] [address] [facility] (test code = [place] 1538) [address] POCT-GLUCOSE [id number] 22:03:00 Test Item Value Reference Range Interpretation Comments POC-GLUCOSE METER 128 mg/dL 70-110 H TESTED AT [place] [address] [facility] (test code = [place] 1538) [address] POCT-GLUCOSE [id number] 17:31:00 Test Item Value Reference Range Interpretation Comments POC-GLUCOSE METER 141 mg/dL 70-110 H TESTED AT [place] [address] (BEAKER) (test code = TUTU [place] 1538) [address] POCT-GLUCOSE [id number] 11:58:00 Test Item Value Reference Range Interpretation Comments POC-GLUCOSE METER 159 mg/dL 70-110 H TESTED AT [place] [address] (BEAKER) (test code = T[place]U [place] 1538) [address] POCT-GLUCOSE [id number] 07:47:00 Test Item Value Reference Range Interpretation Comments POC-GLUCOSE METER 115 mg/dL 70-110 H TESTED AT [place] [address] (BEAKER) (test code = [place] 1538) [address] POCT-GLUCOSE [id number] 21:03:00 Test Item Value Reference Range Interpretation Comments POC-GLUCOSE METER 177 mg/dL 70-110 H TESTED AT [place] [address] ([facility]) (test code = [place] 1538) 14681 POCT-GLUCOSE [id number] 16:23:00 Test Item Value Reference Range Interpretation Comments POC-GLUCOSE METER 185 mg/dL 70-110 H TESTED AT [place] [address] ([facility]) (test code = [place] 1538) 79[address] POCT-GLUCOSE [id number] 12:04:00 Test Item Value Reference Range Interpretation Comments POC-GLUCOSE METER 208 mg/dL 70-110 H TESTED AT [place] [address] ([facility]) (test code = [place] 1538) [address] POCT-GLUCOSE [id number] 07:51:00 Test Item Value Reference Range Interpretation Comments POC-GLUCOSE METER 127 mg/dL 70-110 H TESTED AT [place] [address] ([facility]) (test code = T[place]U [place] 1538) 65843 POCT-GLUCOSE [id number] 20:44:00 Test Item Value Reference Range Interpretation Comments POC-GLUCOSE METER 225 mg/dL 70-110 H TESTED AT [place] [address] ([facility]) (test code = TUTU [place] 1538) 113[address] POCT-GLUCOSE [id number] 17:52:00 Test Item Value Reference Range Interpretation Comments POC-GLUCOSE METER 150 mg/dL 70-110 H TESTED AT [place] [address] ([facility]) (test code = T[place] 1538) 86[address] POCT-GLUCOSE [id number] 12:45:00 Test Item Value Reference Range Interpretation Comments POC-GLUCOSE METER 176 mg/dL 70-110 H TESTED AT [place] [address] ([facility]) (test code = TUTU [place] 1538) [address] POCT-GLUCOSE [id number] 07:41:00 Test Item Value Reference Range Interpretation Comments POC-GLUCOSE METER 147 mg/dL 70-110 H TESTED AT [place] [address] ([facility]) (test code = T[place]U [place] 1538) [address] POCT-GLUCOSE [id number] 20:42:00 Test Item Value Reference Range Interpretation Comments POC-GLUCOSE METER 194 mg/dL 70-110 H TESTED AT [place] [address] ([facility]) (test code = T[place]U [place] 1538) [address] POCT-GLUCOSE [id number] 17:33:00 Test Item Value Reference Range Interpretation Comments POC-GLUCOSE METER 174 mg/dL 70-110 H TESTED AT [place] [address] ([facility]) (test code = [place] 1538) [address] POCT-GLUCOSE [id number] 12:14:00 Test Item Value Reference Range Interpretation Comments POC-GLUCOSE METER 153 mg/dL 70-110 H TESTED AT [place] [address] ([facility]) (test code = TUTU Reese [facility] 1538) [address] POCT-GLUCOSE [id number] 07:55:00 Test Item Value Reference Range Interpretation Comments POC-GLUCOSE METER 220 mg/dL 70-110 H TESTED AT [place] [address] ([facility]) (test code = TUTU Reese [facility] 1538) 21208 POCT-GLUCOSE [id number] 20:50:00 Test Item Value Reference Range Interpretation Comments POC-GLUCOSE METER 241 mg/dL 70-110 H TESTED AT [place] [address] ([facility]) (test code = TUTU Reese [facility] 1538) 75261 POCT-GLUCOSE [id number] 16:54:00 Test Item Value Reference Range Interpretation Comments POC-GLUCOSE METER 218 mg/dL 70-110 H TESTED AT [place] [address] ([facility]) (test code = TUTU Reese [facility] 1538) 8[address]23 POCT-GLUCOSE [id number] 11:45:00 Test Item Value Reference Range Interpretation Comments POC-GLUCOSE METER 257 mg/dL 70-110 H TESTED AT [place] [address] ([facility]) (test code = TUTU Reese [facility] 1538) 95763 POCT-GLUCOSE [id number] 07:57:00 Test Item Value Reference Range Interpretation Comments POC-GLUCOSE METER 219 mg/dL 70-110 H TESTED AT [place] [address] ([facility]) (test code = TUTU Reese [facility] 1538) [address] BASIC METABOLIC [id number] 06:05:00 Test Item Value Reference Range Interpretation [...] PATIEN TS. CBC W/PLT COUNT & AUTO [id number] 05:42:00 Test Item Value Reference Range Interpretation [...] PERCENT (BEAKER) (test code = 2801) POCT-GLUCOSE [id number] 20:57:00 Test Item Value Reference Range Interpretation Comments POC-GLUCOSE METER 301 mg/dL 70-110 H Notified R Becca SHOEMAKER/TESTED ([facility]) (test code = AT [place] [address]88) [facility] 7[address] 0 POCT-GLUCOSE [id number] 15:57:00 Test Item Value Reference Range Interpretation Comments POC-GLUCOSE METER 292 mg/dL 70-110 H TESTED AT [place] [address] ([facility]) (test code = TUTU Reese [facility] 1538) [address]62 POCT-GLUCOSE [id number] 13:36:00 Test Item Value Reference Range Interpretation Comments POC-GLUCOSE METER 181 mg/dL 70-110 H TESTED AT [place] [address] ([facility]) (test code = TUTU Reese [facility] 1538) 40477 POCT-GLUCOSE [id number] 07:46:00 Test Item Value Reference Range Interpretation Comments POC-GLUCOSE METER 172 mg/dL 70-110 H TESTED AT [place] [address] ([facility]) (test code = TUTU Reese [facility] 1538) 78906 POCT-GLUCOSE [id number] 21:03:00 Test Item Value Reference Range Interpretation Comments POC-GLUCOSE METER 195 mg/dL 70-110 H TESTED AT [place] [address] ([facility]) (test code = [facility] 1538) 33501 POCT-GLUCOSE [id number] 16:41:00 Test Item Value Reference Range Interpretation Comments POC-GLUCOSE METER 198 mg/dL 70-110 H TESTED AT [place] [address] (BEAKER) (test code = [facility] 1538) 13354 POCT-GLUCOSE [id number] 12:08:00 Test Item Value Reference Range Interpretation Comments POC-GLUCOSE METER 241 mg/dL 70-110 H TESTED AT [place] [address] (BEAKER) (test code = [facility] 1538) 82569 POCT-GLUCOSE [id number] 08:27:00 Test Item Value Reference Range Interpretation Comments POC-GLUCOSE METER 300 mg/dL 70-110 H TESTED AT [place] [address] (BEAKER) (test code = [facility] 1538) [address] BASIC METABOLIC [id number] 05:56:00 Test Item Value Reference Range Interpretation [...] NOT APPLICABLE FOR DIALYSIS PATIEN TS. PROTHROMBIN [id number] 04:54:00 Test Item Value Reference Range Interpretation Comments PROTIME (BEAKER) (test code = 14.5 seconds 11.7-14.7 759) INR (BEAKER) (test code = 370) 1.1 <=5.9 RECOMMENDED COUMADIN/WARFARIN INR THERAPY RANGESSTANDARD DOSE: 2.0 - 3.0 Includes: PROPHYLAXIS for venous thrombosis, systemic embolization; TREATMENT for venous thrombosis and/or pulmonary embolus.HIGH RISK: Target INR is 2.5-3.5 for patients with mechanical heart valves.CBC W/PLT COUNT & AUTO [id number] 04:50:00 Test Item Value Reference Range Interpretation [...] (test code = 416) BASOPHILS ABSOLUTE COUNT (AKER) 0.02 K/ L 0.01-0.08 (test code = 417) IMMATURE GRANULOCYTES-RELATIVE 0 % 0-1 PERCENT ([facility]) (test code = 2801) POCT-GLUCOSE [id number] 22:08:00 Test Item Value Reference Range Interpretation Comments POC-GLUCOSE METER 285 mg/dL 70-110 H TESTED AT [place] [address] ([facility]) (test code = TUTU Reese [facility] 1538) 65883 POCT-GLUCOSE [id number] 16:19:00 Test Item Value Reference Range Interpretation Comments POC-GLUCOSE METER 230 mg/dL 70-110 H TESTED AT [place] [address] ([facility]) (test code = TUTU Reese [facility] 1538) [address] RAD, ANKLE, MIN 3 VIEWS, [id number] 12:27:00Reason for exam:->pain edema following fallFINAL REPORT Clinical history: pain edema following fall TECHNIQUE: 3 views of the right ankle COMPARISON: None IMPRESSION: There is soft tissue swelling over the medial malleolus.There is no evidence of fracture or dislocation. There are dorsal and plantar calcaneal spurs. Thereare vascular calcifications. Signed: Car Heller MDReport Verified Date/Time: 02/04/2017 12:27:23 Reading Location: [facility] Reading Room Electronically signed by: CAR HELLER M.D.on 02/04/2017 12:27 PMPOCT- GLUCOSE [id number] 11:55:00 Test Item Value Reference Range Interpretation Comments POC-GLUCOSE METER 204 mg/dL 70-110 H TESTED AT [place] [address] ([facility]) (test code = [facility] Hugh [facility] 1538) 0[address] POCT-GLUCOSE [id number] 08:00:00 Test Item Value Reference Range Interpretation Comments POC-GLUCOSE METER 217 mg/dL 70-110 H TESTED AT [place] [address] ([facility]) (test code = [facility] [employer] [facility] 1538) [address] [id number] 07:14:00 Test Item Value Reference Range Interpretation Comments PHOSPHORUS (BEAKER) (test code = 3.8 mg/dL 2.3-4.7 604) [id number] 07:14:00 Test Item Value Reference Range Interpretation Comments MAGNESIUM (BEAKER) (test code = 1.7 mg/dL 1.6-2.6 627) BASIC METABOLIC [id number] 07:14:00 Test Item Value Reference Range Interpretation [...] NOT APPLICABLE FOR DIALYSIS PATIEN TS. POCT-GLUCOSE [id number] 22:31:00 Test Item Value Reference Range Interpretation Comments POC-GLUCOSE METER 288 mg/dL 70-110 H TEST[facility] [place] [address] [facility] (test code = [facility] Hugh [facility] 1538) [address]83 POCT-GLUCOSE [id number] 17:03:00 Test Item Value Reference Range Interpretation Comments POC-GLUCOSE METER 268 mg/dL 70-110 H TESTED AT [place] [address] ([facility]) (test code = [facility] 1538) 71694 POCT-GLUCOSE [id number] 12:31:00 Test Item Value Reference Range Interpretation Comments POC-GLUCOSE METER 214 mg/dL 70-110 H TESTED AT [place] [address] ([facility]) (test code = [facility] Hugh [facility] 1538) [address] CT, BRAIN, WITHOUT [id number] 09:22:00FINAL REPORT CT head without contrast INDICATION: [...] MDReport Verified Date/Time: 02/03/2017 09:22:48 Reading Location: [address] Neuro Reading Room POCT-GLUCOSE [id number] 07:19:00 Test Item Value Reference Range Interpretation Comments POC-GLUCOSE METER 218 mg/dL 70-110 H TESTED AT [facility] 67 ([facility]) (test code = TUTU Reese [facility] 1538) [address] [id number] 06:12:00 Test Item Value Reference Range Interpretation Comments PHOSPHORUS (BEAKER) (test code = 3.1 mg/dL 2.3-4.7 604) [id number] 06:12:00 Test Item Value Reference Range Interpretation Comments MAGNESIUM (BEAKER) (test code = 1.6 mg/dL 1.6-2.6 627) BASIC METABOLIC [id number] 06:12:00 Test Item Value Reference Range Interpretation [...] NOT APPLICABLE FOR DIALYSIS PATIEN TS. POCT-GLUCOSE [id number] 23:10:00 Test Item Value Reference Range Interpretation Comments POC-GLUCOSE METER 239 mg/dL 70-110 H TESTED AT [place] [address] ([facility]) (test code = [facility] 1538) 30009 POCT-GLUCOSE [id number] 17:20:00 Test Item Value Reference Range Interpretation Comments POC-GLUCOSE METER 291 mg/dL 70-110 H TESTED AT [place] [address] ([facility]) (test code = [facility] 1538) 82507 POCT-GLUCOSE [id number] 12:39:00 Test Item Value Reference Range Interpretation Comments POC-GLUCOSE METER 274 mg/dL 70-110 H TESTED AT [place] [address] ([facility]) (test code = [facility] 1538) 42118 POCT-GLUCOSE [id number] 11:35:00 Test Item Value Reference Range Interpretation Comments POC-GLUCOSE METER 289 mg/dL 70-110 H TESTED AT [place] [address] ([facility]) (test code = [facility] 1538) 76653 POCT-GLUCOSE [id number] 11:07:00 Test Item Value Reference Range Interpretation Comments POC-GLUCOSE METER 271 mg/dL 70-110 H TESTED AT [place] [address] ([facility]) (test code = [facility] 1538) [address] CT, BRAIN, WITHOUT [id number] 10:51:00FINAL REPORT CT head without contrast INDICATION: [...] MDReport Verified Date/Time: 02/02/2017 10:51:15 Reading Location: [address] Neuro Reading Room [id number] 06:07:00 Test Item Value Reference Range Interpretation Comments PHOSPHORUS (BEAKER) (test code = 3.2 mg/dL 2.3-4.7 604) [id number] 06:07:00 Test Item Value Reference Range Interpretation Comments MAGNESIUM (BEAKER) (test code = 2.4 mg/dL 1.6-2.6 627) BASIC METABOLIC [id number] 06:07:00 Test Item Value Reference Range Interpretation [...] NOT APPLICABLE FOR DIALYSIS PATIEN TS. POCT-GLUCOSE [id number] 21:34:00 Test Item Value Reference Range Interpretation Comments POC-GLUCOSE METER 331 mg/dL 70-110 H TESTED AT [facility] 67 ([facility]) (test code = [facility] Hugh [facility] 1538) 39068 HEMOGLOBIN [id number] 14:53:00 Test Item Value Reference Range Interpretation Comments HEMOGLOBIN A1C (BEAKER) (test code = 14.8 % 4.3-6.1 H 368) POCT-GLUCOSE [id number] 11:57:00 Test Item Value Reference Range Interpretation Comments POC-GLUCOSE METER 232 mg/dL 70-110 H TESTED AT [facility] 67 ([facility]) (test code = [facility] Hugh [facility] 1538) [address] [id number] 11:44:00 Test Item Value Reference Range Interpretation Comments PHOSPHORUS (BEAKER) (test code = 3.0 mg/dL 2.3-4.7 604) [id number] 11:44:00 Test Item Value Reference Range Interpretation Comments MAGNESIUM (BEAKER) (test code = 1.3 mg/dL 1.6-2.6 L 627) BASIC METABOLIC [id number] 11:44:00 Test Item Value Reference Range Interpretation [...] PATIEN TS. CBC W/PLT COUNT & AUTO [id number] 11:18:00 Test Item Value Reference Range Interpretation [...] PERCENT (BEAKER) (test code = 2801) POCT-GLUCOSE [id number] 08:37:00 Test Item Value Reference Range Interpretation Comments POC-GLUCOSE METER 269 mg/dL 70-110 H TESTED AT [facility] 6720 ([facility]) (test code = TUTU Hugh [facility] 1538) 65292 LIPID [id number] 03:12:00 Test Item Value Reference Range Interpretation Comments TRIGLYCERIDES ([facility]) (test code = 129 mg/dL 540) CHOLESTEROL ([facility]) (test code = 185 mg/dL 631) HDL CHOLESTEROL ([facility]) (test code 39 mg/dL = 976) LDL CHOLESTEROL CALCULATED ([facility]) 120 mg/dL (test code = 633) Triglyceride [...] Value Reference Range Interpretation Comments RPR SCREEN ([facility]) (test code = Nonreactive Nonreactive 420) POCT-GLUCOSE [id number] 01:15:00 Test Item Value Reference Range Interpretation Comments POC-GLUCOSE METER 297 mg/dL 70-110 H TESTED AT [facility] 6720 (DAO) (test code = TUTU Reese [place] 1538) [address] POCT-GLUCOSE [id number] 22:01:00 Test Item Value Reference Range Interpretation Comments POC-GLUCOSE METER 354 mg/dL 70-110 H Notified Hugh Hudson MD/TESTED ([facility]) (test code = AT [facility] 67[address] [place] 1538) [place] [address] MR, BRAIN, WITHOUT [id number] 20:46:00Reason for exam:->Ischemic Stroke EvaluationFINAL REPORT MRI [...] Padilla (neurology) at 8:45 PM Signed: Charanjit Ibarraort Verified Date/Time: 01/31/2017 20:46:20 Reading Location: [facility] Reading Room MR, MRA, BRAIN, WITHOUT [id number] 20:36:00 Reason for exam:->Ischemic Stroke EvaluationFINAL REPORT MRA head and neck without contrast INDICATION: Stroke TECHNIQUE: 2-D and 3-D [id number] MRA images of the intra- and extracranial [...] left vertebral artery is not imaged. 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 Mild to moderate left vertebrobasilar confluence, moderate mid basilar artery and severe right and moderate left proximal DOPE EDGER stenoses are present. There are suspected severe left supraclinoid ICA stenosis with signal loss. There are mild stenoses of the left proximal MCA and TRUDY origins. No other flow limiting proximal [place] vessels stenosis is seen. Motion [...] severe left supraclinoid ICA and proximal right DOPE EDGER stenoses. 4. No hemodynamically significant cervical carotid artery stenosis by NASCET criteria. Signed: [facility]it [facility]ra [facility] Verified Date/Time: 01/31/2017 20:36:02 Reading Location: [facility] Reading Room MR, MRA, NECK, WITHOUT IV [id number] 20:36:00Reason for exam:->Ischemic Stroke EvaluationFINAL REPORT MRA head and neck without contrast INDICATION: Stroke TECHNIQUE: 2-D and 3-D [id number] MRA images of the intra- and extracranial [...] left vertebral artery is not imaged. 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 Mild to moderate left vertebrobasilar confluence, moderate mid basilar artery and severe right and moderate left proximal DOPE EDGER stenoses are present. There are suspected severe left supraclinoid ICA stenosis with signal loss. There are mild stenoses of the left proximal MCA and TRUDY or igins. No other flow limiting proximal [place] vessels stenosis is seen. Motion [...] severe left supraclinoid ICA and proximal right DOPE EDGER stenoses. 4. No hemodynamically significant cervical carotid artery stenosis by NASCET criteria. Signed: Charanjit Ibarra [facility] Verified Date/Time: 01/31/2017 20:36:02 Reading Location: [facility] ReadingRoom VITAMIN B12 AND [id number] 13:11:00 Test Item Value Reference Range Interpretation Comments VITAMIN B12 (64 PixelsAKER) (test code = 551 pg/mL 213-816 774) FOLATE (Geolo[employer]) (test code = 362) 15.7 ng/mL >=7.0 [id number] 10:22:00 Test Item Value Reference Range Interpretation Comments HOMOCYSTEINE (BEAKER) (test code = 7.0 umol/L 5.1-15.4 642) POCT-GLUCOSE [id number] 08:22:00 Test Item Value Reference Range Interpretation Comments POC-GLUCOSE METER 200 mg/dL 70-110 H TESTED AT [place] [address] (BEAKER) (test code = [place] 1538) [address] T4, [id number] 07:04:00 Test Item Value Reference Range Interpretation Comments FREE T4 (BEAKER) (test code = 655) 1.28 ng/dL 0.70-1.48 TSH/FREE T4 IF [id number] 06:34:00 Test Item Value Reference Range Interpretation Comments THYROID STIMULATING HORMONE 0.22 uIU/mL 0.35-4.94 L (BEAKER) (test code = 772) BASIC METABOLIC [id number] 05:53:00 Test Item Value Reference Range Interpretation [...] PATIEN TS. CBC W/PLT COUNT & AUTO [id number] 05:31:00 Test Item Value Reference Range Interpretation [...] Date/Time Note Provider Source 2020-08-10 15:05:16-00:00 KACIE CALDERONGalindo OPERATIVE/PROCEDURE REPORT [facility] FACILITY: [facility] Billing #: [id number] Room: [facility] MR #: [id number] : 1940 DATE OF PROCEDURE: 08/08/2020 SURGEON: [...] vein. There we re no complications. MATT/LAYLA /[id number] 2017-02-06 18:18:00-00:[address] [facility] REPORT OF PROCEDURE [facility]ERRY [place] FACILITY: [facility] BILLING #: [id number] ROOM: [facility] [id number] MR #: [id number] : 1940 DATE OF PROCEDURE: 02/06/2017 SURGEON: [...] tissue without complications. MATT/christian P P Job#: [id number] Doc#: [id number] FN: [id number] cc: Kacie Calderon MD 2017-02-05 21:30:00-00:[address] [facility] REPORT OF PROCEDURE [facility] FACILITY: [facility] BILLING #: [id number] ROOM: [address] [place] [address] MR #: [id number] : 1940 DATE OF PROCEDURE: 02/05/2017 SURGEON: [...] normal. PROCEDURE: The patient brought to the [facility] siology laboratory. The right and left groins [...] transie nt AV block identified with prompt evangelical of normal conduction and recu rrent of conduction intervals to normal. There was subsequent no inducible tac hycardia and no sustained slow pathway conduction. Procedure was terminate d. No complication. MATT/christian P P Job#: [id number] Doc#: [id number] FN: [id number] cc: Kacie Calderon MD
[2022-08-15 16:09] LABS: Absolute Lymphocytes (CBC) 0.8 K/uL (0.7-4.9); Hematocrit 36.2 % (36.0-45.0); Lymphocytes % 8.6 % (15.3-44.8); MCV 97.3 fL (80-100); MPV 7.4 fL (7.6-11.3); RBC Red Blood Cell Count 3.72 M/uL (3.86-4.86)
[2022-08-15 16:13] LABS: Protime INR 1.25
[2022-08-15 16:26] LABS: Albumin 2.7 g/dL (3.4-5.0); Bilirubin Direct 0.2 mg/dL (0-0.2); Bilirubin Indirect, Calculated 0.2 mg/dL (0.2-0.8); Bilirubin Total 0.4 mg/dL (0.2-1.0); Potassium 3.5 mEq/L (3.5-5.1); Protein, Total 6.9 g/dL (6.4-8.2); Troponin High Sensitivity 40.9 pg/mL (<58.9)
[2022-08-15] MEDS ORDERED: NA CHLORIDE 0.9% 1,000 ML ONE (16:27)
[2022-08-15] MEDS ORDERED: ONDANSETRON 4 MG/2 ML VIAL ONE (16:27)
--- NOTE | 2022-08-15 17:25 | EDPHYS ---
Physician Documentation [facility] Name: Rebecca Hazel Age: 82 yrs Sex: Female : 1940 Arrival Date: 08/15/2022 Time: 15:04 Bed 3 Private MD: ED Physician Scottie Boateng HPI: 08/15 16:51 This 82 yrs old Female presents to ER via EMS with complaints of anil Nausea/Vomiting. 16:51 The patient presents to the emergency department with nausea, vomiting, that is anil intermittent. Onset: The symptoms/episode began/occurred just prior to arrival. Possible causes: unknown. The symptoms are aggravated by nothing. The symptoms are alleviated by nothing. Associated signs and symptoms: Pertinent positives: nausea, vomiting. Severity of symptoms: At their worst the symptoms were mild just prior to arrival. The patient has experienced similar episodes in the past, several times. Historical: - Allergies: 15:30 No Known Allergies; ss - PMHx: 15:30 Diabetes - IDDM; Hypertension; Hypothyroidism; stroke with right sided weakness; TIA; ss - PSHx: 15:30 pacemaker; ss - Immunization history:: Adult Immunizations up to date. - Social history:: Smoking status: Patient denies any tobacco usage or history of. Patient/guardian denies using alcohol. ROS: 17:03 Constitutional: Negative for fever, chills, and weight loss, Eyes: Negative for injury, anil pain, redness, and discharge, ENT: Negative for injury, pain, and discharge, Neck: Negative for injury, pain, and swelling, Cardiovascular: Negative for chest pain, palpitations, and edema, Respiratory: Negative for shortness of breath, cough, wheezing, and pleuritic chest pain, Abdomen/GI: Negative for abdominal pain, nausea, vomiting, diarrhea, and constipation, Back: Negative for injury and pain, : Negative for injury, bleeding, discharge, and swelling, Skin: Negative for injury, rash, and discoloration, Neuro: Negative for headache, weakness, numbness, tingling, and seizure. 17:03 MS/extremity: Exam: 17:03 Constitutional: This is a well developed, well nourished patient who is awake, alert, anil and in no acute distress. Head/Face: Normocephalic, atraumatic. Eyes: Pupils equal round and reactive to light, extra-ocular motions intact. Lids and lashes normal. Conjunctiva and sclera are non-icteric and not injected. Cornea within normal limits. Periorbital areas with no swelling, redness, or edema. ENT: Nares patent. No nasal discharge, no septal abnormalities noted. Tympanic membranes are normal and external auditory canals are clear. Oropharynx with no redness, swelling, or masses, exudates, or evidence of obstruction, uvula midline. Mucous membranes moist. Neck: Trachea midline, no thyromegaly or masses palpated, and no cervical lymphadenopathy. Supple, full range of motion without nuchal rigidity, or vertebral point tenderness. No Meningismus. Chest/axilla: Normal chest wall appearance and motion. Nontender with no deformity. No lesions are appreciated. Cardiovascular: Regular rate and rhythm with a normal S1 and S2. No gallops, murmurs, or rubs. Normal PMI, no JVD. No pulse deficits. Respiratory: Lungs have equal breath sounds bilaterally, clear to auscultation and percussion. No rales, rhonchi or wheezes noted. No increased work of breathing, no retractions or nasal flaring. Abdomen/GI: Soft, non-tender, with normal bowel sounds. No distension or tympany. No guarding or rebound. No evidence of tenderness throughout. Back: No spinal tenderness. No costovertebral tenderness. Full range of motion. Skin: Warm, dry with normal turgor. Normal color with no rashes, no lesions, and no evidence of cellulitis. MS/ Extremity: Pulses equal, no cyanosis. Neurovascular intact. Full, normal range of motion. Neuro: Awake and alert, GCS 15, oriented to person, place, time, and situation. Cranial nerves II-XII grossly intact. Motor strength 5/5 in all extremities. Sensory grossly intact. Cerebellar exam normal. Normal gait. Psych: Awake, alert, with orientation to person, place and time. Behavior, mood, and affect are within normal limits. 17:03 ECG was reviewed by the Attending Physician. Vital Signs: 15:28 BP 124 / 62; Pulse 70; Resp 17; Temp 97.5(O); Pulse Ox 99% on R/A; Pain 0/10; ss 16:39 BP 151 / 46; Pulse 67; Resp 18; Pulse Ox 94% on R/A; ld1 17:59 BP 145 / 59; Pulse 61; Resp 18; Pulse Ox 98% on R/A; ld1 15:28 Pain Scale: Adult ss MDM: 15:28 Patient medically screened. [facility] 17:10 Differential diagnosis: Nonspecific abd pain, gastritis, pancreatitis, viral anil gastroenteritis, gastroenteritis. Data reviewed: vital signs, nurses notes, lab test result(s), radiologic studies, plain films. Consideration of Admission/Observation Escalation of care including admission/observation considered. Management of patient was discussed with the following:. I considered the following discharge prescriptions or medication management in the emergency department Medications were administered in the Emergency Department. See MAR. Test considered but Not performed: CT: no ct abd pelvis. Care significantly affected by the following chronic conditions: Diabetes, Hypertension, cva, hypothyroid. 08/15 15:33 Order name: Basic Metabolic Panel; Complete Time: 17:20 [facility] 08/15 15:33 Order name: CBC with Diff; Complete Time: 16:25 [facility] 08/15 15:33 Order name: LFT's; Complete Time: 17:20 [facility] 08/15 15:33 Order name: Magnesium; Complete Time: 17:20 [facility] 08/15 15:33 Order name: NT PRO-BNP; Complete Time: 17:20 [facility] 08/15 15:33 Order name: PT-INR; Complete Time: 16:25 [facility] 08/15 15:33 Order name: Troponin HS; Complete Time: 17:20 [facility] 08/15 15:33 Order name: Lipase; Complete Time: 17:20 [facility] 08/15 15:33 Order name: XRAY Chest (1 view) [facility] 08/15 15:33 Order name: EKG; Complete Time: 15:34 [facility] 08/15 15:33 Order name: Cardiac monitoring; Complete Time: 16:10 [facility] 08/15 15:33 Order name: EKG - Nurse/Tech; Complete Time: 16:10 [facility] 08/15 15:33 Order name: IV Saline Lock; Complete Time: 16:10 [facility] 08/15 15:33 Order name: Labs collected and sent; Complete Time: 16:10 [facility] 08/15 15:33 Order name: O2 Per Protocol; Complete Time: 15:35 [facility] 08/15 15:33 Order name: O2 Sat Monitoring; Complete Time: 15:35 [facility] EC:03 Rate is 68 beats/min. Rhythm is regular. QRS Coden is Normal. KS interval is normal. QRS anil interval is normal. QT interval is normal. No Q waves. T waves are Normal. No ST changes noted. Clinical impression: NSR w/ Non-specific ST/T Changes and No evidence of ischemia. Interpreted by me. Reviewed by me. Administered Medications: 16:21 Drug: NS 0.9% IV 1000 ml Route: IV; Rate: 75 ml/hr; Site: left antecubital; ld1 16:21 Drug: Ondansetron IVP 4 mg Route: IVP; Site: left antecubital; ld1 Disposition Summary: 08/15/22 17:24 Discharge Ordered Location: Home anil Problem: new anil Symptoms: have improved anil Condition: Stable anil Diagnosis - End stage renal disease - on HD , , FRI anil - Nausea with vomiting, unspecified anil Followup: anil - With: Private Physician - When: 1 - 2 days - Reason: Recheck today's complaints, Continuance of care, Re-evaluation by your physician Followup: anil - With: Promise Heller MD - When: 2 - 3 days - Reason: Recheck today's complaints, Continuance of care, Re-evaluation by your physician Discharge Instructions: - Discharge Summary Sheet anil - Nausea and Vomiting, Adult anil - Nausea and Vomiting, Adult, [id number] anil - Dialysis anil Forms: - Medication Reconciliation Form anil - Thank You Letter anil - Antibiotic Education anil - Prescription Opioid Use anil - [email or web address] [facility] Prescriptions: - ondansetron 4 mg Oral Tablet,disintegrating - take 1 tablet by ORAL route every 8 hours for 5 days; 20 tablet; Refills: 0, anil Product Selection Permitted Signatures: Dispatcher [employer] EDScottie Randahwa MD MD cha Blanchard, Shelby, RN RN Rosa Yost RN RN ld1
--- NOTE | 2022-08-15 17:25 | ER ---
Nurse's Notes [facility] Name: Rebecca Hazel Age: 82 yrs Sex: Female : 1940 Arrival Date: 08/15/2022 Time: 15:04 Bed 3 Private MD: Diagnosis: End stage renal disease-on HD TU, TH , SAT;Nausea with vomiting, unspecified Presentation: 08/15 15:28 Chief complaint: Patient states: nausea that began while at dialysis. Pt states, "I ss think dialysis makes me sick to my stomach." Denies fever. Coronavirus screen: Client denies travel out of the [place] in the last 14 days. Ebola Screen: Patient denies exposure to infectious person. Patient denies travel to an Ebola-affected area in the 21 days before illness onset. Initial Sepsis Screen: Does the patient meet any 2 criteria? No. Patient's initial sepsis screen is negative. Does the patient have a suspected source of infection? No. Patient's initial sepsis screen is negative. Risk Assessment: Do you want to hurt yourself or someone else? Patient reports no desire to harm self or others. Onset of symptoms was August 15, 2022. 15:28 Method Of Arrival: EMS: [facility] 15:28 Acuity: DENNIS 3 ss Triage Assessment: 18:00 General: Appears in no apparent distress. comfortable, Behavior is calm, cooperative, ld1 appropriate for age. Pain: Denies pain. GI: Abdomen is flat, non-distended, Reports diarrhea, nausea. Historical: - Allergies: 15:30 No Known Allergies; ss - PMHx: 15:30 Diabetes - IDDM; Hypertension; Hypothyroidism; stroke with right sided weakness; TIA; ss - PSHx: 15:30 pacemaker; ss - Immunization history:: Adult Immunizations up to date. - Social history:: Smoking status: Patient denies any tobacco usage or history of. Patient/guardian denies using alcohol. Screenin:59 [facility] ED Fall Risk Assessment (Adult) History of falling in the last 3 months, ld1 including since admission No falls in past 3 months (0 pts). Abuse screen: Denies threats or abuse. Denies injuries from another. Nutritional screening: No deficits noted. Tuberculosis screening: No symptoms or risk factors identified. Assessment: 17:00 Reassessment: No changes from previously documented assessment. Patient and/or family ld1 updated on plan of care and expected duration. Pain level reassessed. Patient is alert, oriented x 3, equal unlabored respirations, skin warm/dry/pink. See triage assessment. 17:15 Reassessment: Patient appears in no apparent distress at this time. No changes from ld1 previously documented assessment. Patient and/or family updated on plan of care and expected duration. Pain level reassessed. 17:59 Reassessment: Patient appears in no apparent distress at this time. Patient and/or ld1 family updated on plan of care and expected duration. Pain level reassessed. 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 18:54 Reassessment: Lyly with [facility] called back - [facility]1 here around 2030. Vital Signs: 15:28 BP 124 / 62; Pulse 70; Resp 17; Temp 97.5(O); Pulse Ox 99% on R/A; Pain 0/10; ss 16:39 BP 151 / 46; Pulse 67; Resp 18; Pulse Ox 94% on R/A; ld1 17:59 BP 145 / 59; Pulse 61; Resp 18; Pulse Ox 98% on R/A; ld1 15:28 Pain Scale: Adult ss ED Course: 15:22 Patient arrived in ED. em1 15:28 Scottie Boateng MD is Attending Physician. anil 15:30 Triage completed. ss 15:30 Arm band placed on right wrist. ss 16:29 XRAY Chest (1 view) In Process Unspecified. EDMS 17:22 Promise Heller MD is Referral Physician. anil 17:59 Patient has correct armband on for positive identification. Placed in gown. Bed in low ld1 position. Call light in reach. Side rails up X2. media monitor on. Pulse ox on. NIBP on. Door closed. Noise minimized. Warm blanket given. 17:59 No provider procedures requiring assistance completed. IV discontinued, intact, ld1 bleeding controlled, No redness/swelling at site. 18:09 Rosa Yost, THAIS is Primary Nurse. ld1 Administered Medications: 16:21 Drug: NS 0.9% IV 1000 ml Route: IV; Rate: 75 ml/hr; Site: left antecubital; ld1 16:21 Drug: Ondansetron IVP 4 mg Route: IVP; Site: left antecubital; ld1 Medication: 17:59 VIS not applicable for this client. ld1 Outcome: 17:24 Discharge ordered by . anil 17:59 Discharged to home via wheelchair, with family. ld1 17:59 Condition: stable 17:59 Discharge instructions given to patient, family, Instructed on discharge instructions, follow up and referral plans. medication usage, Demonstrated understanding of instructions, follow-up care, medications, Prescriptions given X 1. 19:14 Patient left the ED. as6 Signatures: Dispatcher [employer] EDMS Scottie Boateng MD MD cha Martinez, Eric em1 Cat Edwards, THAIS RN Rosa Yost RN RN ld1 Aakash Shepherd RN RN as6 Corrections: (The following items were deleted from the chart) 17:59 17:15 Reassessment: No changes from previously documented assessment. Patient and/or ld1 family updated on plan of care and expected duration. Pain level reassessed. Patient is alert, oriented x 3, equal unlabored respirations, skin warm/dry/pink. See triage assessment ld1
--- NOTE | 2022-08-15 17:31 | RAD REPORT ---
EXAM DESCRIPTION: RADChest Single View08/15/2022 4:27 pm CLINICAL HISTORY: COUGH COMPARISON: Chest Single View dated 06/22/2022; Chest Single View dated 05/06/2022; Chest Single View dated 05/05/2022; Chest Single View dated 03/27/2022 TECHNIQUE: Portable AP view of the chest. FINDINGS: The lungs are clear. Right IJ dialysis catheter, and left chest wall pacer/ AICD, unchange d in position. No pneumothorax or effusion. The cardiomediastinal contours are unremarkable. IMPRESSION: No acute cardiopulmonary process.
[2022-08-15 19:56] VITALS: TEMP 97.5
[2022-08-15 20:51] VITALS: BP 145/59; O2SAT 98
--- NOTE | 2022-08-17 16:22 | EKG ---
Test Date: 2022-08-15 Test Time: 15:43:32 [employer]er Outsoles: SARAH MEASUREMENT RESULTS: Intervals: Rate: 68 MD: 208 QRSD: 168 QT: 528 QTc: 561 [place]: P: 57 MD: 208 QRS: -60 T: 54 INTERPRETIVE STATEMENTS: Normal sinus rhythm Right bundle branch block Left anterior fascicular block Bifascicular block Abnormal ECG Compared to ECG 06/22/2022 13:57:43 Left anterior fascicular block now present Bifascicular block now present Sinus bradycardia no longer present First degree AV block no longer present Electronically Signed On 08-17-22 16:18:43 CDT by Lui Tomlinson
== END 2022-08-15 19:14 | disposition home or self-care (01) ==
LOC: ER 15:04
DX: E11.22 Type 2 diabetes mellitus with diabetic chronic kidney disease (principal); I12.0 Hypertensive chronic kidney disease with stage 5 chronic kidney disease or end stage renal disease; N18.6 End stage renal disease; Z99.2 Dependence on renal dialysis; Z95.0 Presence of cardiac pacemaker
CPT/HCPCS: 93005; 85025; 80048; 36415; 83735; 85610; 80076; 84484; 83690; 83880; 71045; 96374; 99285; J2405; J7030

== ENCOUNTER 2022-09-05 20:28 | Inpatient (IN) | payer OTHER ==
--- OUTSIDE RECORDS SUMMARY | 2022-09-05 20:38 | XMS REPORT | Continuity of Care Document ---
:1940 Author Organization [facility] t Address [address] [facility]. [address] [place] [address] Care Team Providers Name Role Phone SARIAH HART Primary Care Physician Unavailable Jacqui Pate Attending Clinician Unavailable KACIE CALDERON Attending Clinician Unavailable Vitor Attending Clinician Unavailable EM ALEX Attending Clinician Unavailable KACIE CALDERON Admitting Clinician Unavailable Vitor Admitting Clinician Unavailable EM ALEX Admitting Clinician Unavailable Payers Payer Name Policy Type Policy Number Effective Date Expiration Date S santiago [facility]/MEDICARE [id number] 2016 COMPLETE 00:00:00 [facility] MEDICARE [id number] COMPLETE (MEDICARE REPLACEMENT HMO) [facility] 53 [id number] 2021 Common ADVANTAGE WELLMED 00:00:00 [facility] AARP MEDICARE 53 [id number] 2020 Common ADVANTAGE WELLMED 00:00:00 [facility] Problems Condition Condition Condition [...] arterioscl 00:00: Me dical erosis erosis 00 [place] Accelerate Accelerate Disease Active [facility] d d 02-12 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 re-entry re-entry 00:00: Medica l tachycardi tachycardi 00 nter a) a) Stroke Stroke Disease Recurre 2016-[address] (cerebrum) (cerebrum) nce 04-03 Bev kes 00:00: Medical 00 Center Essential Essential Problem Com mon hypertensi hypertensi Sp chino on on - [facility] Dyslipidem Dyslipidem Problem C ommon ia ia [facility] - [facility] Postoperat Hypothyroi Problem C ommon zena dism Spirit Hypothyroi associated - CHI dism with surgical [facility] procedure [facility] Hemiplegia Hemiplegia Problem C ommon of right affecting Spiri t dominant right - CHI side dominant side [facility] Long-term snf Problem Com mon current (current) Spirit use of use of - CHI insulin insulin [facility] Diabetic Diabetes Problem Commo n neuropathy mellitus Spir it with - CHI diabetic neuropathy [facility] [id number] Chronic Problem Commo n kidney Spirit disease, - CHI stage 4 (severe) [facility] [id number] Melba Problem Common tropicalis Spirit infection - [facility] [id number] 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 d heart Medical failure Center type History of History of Problem C ommon cerebrovas CVA Spirit cular (cerebrova - [facility]I accident scular St without accident) [facility] Allergies, Adverse Reactions, Alerts Allergy Allergy Status Severity Reaction(s) Onset Inactive Treating Comm ents Source Name Type Date Date Clinician NO KNOWN Allergy Active [facility] Family History Family Member Diagnosis Comments Start Date Stop Date Source Natural father Diabetes [facility] Natural mother Hypertension [facility] Social History Social Habit Start Date Stop Date Quantity Comments Source Gender identity [facility] Sexual orientation Method ist Hospital History of Tobacco [facility] - Use [facility] Alcohol intake 2020-08-09 2020-08-09 Current [facility] 00:00:00 00:00:00 non-drinker of Medical Ce nter alcohol (finding) History of Social 2017-12-24 2017-12-[address] function 00:00:00 00:00:00 Hospital Tobacco use and 2017-07-24 2017-07-24 Smokeless [facility] 00:00:00 00:00:00 tobacco non-user Hospital Sex Assigned At [birth year] [facility] 00:00:00 00:00:00 Medical Center Smoking Status Start [...] mouth Lukes tablet 23:38: daily. Medical 15 [place] metoprolol Yes 25mg QD Take [address] (TOPROL-XL) 6-29 by mouth Luke s 25 MG 24 hr 23:38: daily. Medi dragan tablet 15 Center insulin Yes Inject [facility] 70/30, 6-29 subcutaneo Lukes insulin 23:38: usly 2 Medical NPH-insulin 15 (two) Center regular, times (HumuLIN daily 70/30) 100 before unit/mL meals. (70-30) injection cloNIDine Yes .1mg Q.[id number] Take 0.[address] HCL 6-29 [id number] mg by Lukes (CATAPRES) 23:38: 3D mouth [...] 20 MG 23:38: daily. Medical capsule 15 [place] furosemide Yes 80mg QD Take [address] (LASIX) 80 6-29 by mouth Lukes MG tablet 23:38: daily. Medica l 15 [place] metoprolol Yes 12.5mg Take 12.[address] tartrate 6-29 mg by Lukes (LOPRESSOR 23:38: mouth. Medic al ORAL) 15 [place] atorvastati Yes 80mg QD Take [address] n (LIPITOR) 6-29 by mouth Luke s 80 MG 23:38: daily. Medical tablet 15 [place] famotidine Yes 20mg QD Take [address] (PEPCID) 20 6-29 by mouth Luke s MG tablet 23:38: daily. Medica l 15 [place] GABAPENTIN Yes 200mg QD Take [address] ORAL 6-29 mg by Lukes 23:38: mouth Medical 15 daily. Center atorvastati Yes 80mg QD Take [address] n (LIPITOR) 6-29 by mouth Luke s 80 MG 23:38: daily. Medical tablet 15 [place] famotidine Yes 20mg QD Take [address] (PEPCID) 20 6-29 by mouth Luke s MG tablet 23:38: daily. Medica l 15 Center GABAPENTIN Yes 200mg QD Take [address] ORAL 6-29 mg by Lukes 23:38: mouth Medical 15 daily. [place] aspirin 81 Yes 81mg QD Take 81 [...] unit/mL meals. (70-30) injection cloNIDine Yes .1mg Q.[id number] Take 0.[address] HCL 6-29 [id number] mg by Lukes (CATAPRES) 23:38: 3D mouth [...] MG tablet 23:38: daily. Medica l 15 [place] GABAPENTIN Yes 200mg QD Take [address] ORAL 6-29 mg by Lukes 23:38: mouth Medical 15 daily. [place] aspirin 81 Yes 81mg QD Take [address] MG EC 6-29 by mouth [facility]ukes tablet 23:38: daily. Medical 15 Center metoprolol Yes 25mg QD Take [address] (TOPROL-XL) 6-29 by mouth Luke s 25 MG 24 hr 23:38: daily. Medi dragan tablet 15 [place] insulin Yes Inject [facility] 70/30, 6-29 subcutaneo Lukes insulin 23:38: usly 2 Medical NPH-insulin 15 (two) Center regular, times (HumuLIN daily 70/30) 100 before unit/mL meals. (70-30) injection cloNIDine Yes .1mg Q.[id number] Take 0.[address] HCL 6-29 [id number] mg by Lukes (CATAPRES) 23:38: 3D mouth [...] 20 MG 23:38: daily. Medical capsule 15 [place] furosemide Yes 80mg QD Take [address] (LASIX) 80 6-29 by mouth Lukes MG tablet 23:38: daily. Medica l 15 [place] metoprolol Yes 12.5mg Take 12.[address] tartrate 6-29 mg by Lukes (LOPRESSOR 23:38: mouth. Medic al ORAL) 15 [place] atorvastati Yes 80mg QD Take [address] n (LIPITOR) 6-29 by mouth Luke s 80 MG 23:38: daily. Medical tablet 15 [place] famotidine Yes 20mg QD Take [address] (PEPCID) 20 6-29 by mouth Luke s MG tablet 23:38: daily. Medica l 15 [place] GABAPENTIN Yes 200mg QD Take [address] ORAL 6-29 mg by Lukes 23:38: mouth Medical 15 daily. [place] aspirin 81 Yes 81mg QD Take [address] MG EC 6-29 by mouth Lukes tablet 23:38: daily. Medical [address] [place] [address] metoprolol Yes 25mg QD Take [address] (TOPROL-XL) 6-29 by mouth Luke s 25 MG 24 hr 23:38: daily. Medi dragan tablet 15 [place] insulin Yes Inject [facility] 70/30, 6-29 subcutaneo Lukes insulin 23:38: usly 2 Medical NPH-insulin 15 (two) [place] regular, times (HumuLIN daily 70/30) 100 before unit/mL meals. (70-30) injection cloNIDine Yes .1mg Q.[id number] Take 0.[address] HCL 6-29 [id number] mg by Lukes (CATAPRES) 23:38: 3D mouth [...] 80 MG 23:38: daily. Medical tablet 15 [place] famotidine Yes 20mg QD Take [address] (PEPCID) 20 6-29 by mouth Luke s MG tablet 23:38: daily. Medica l 15 [place] GABAPENTIN Yes 200mg QD Take [address] ORAL 6-29 mg by Lukes 23:38: mouth Medical 15 daily. [place] aspirin 81 Yes 81mg QD Take [address] MG EC 6-29 by mouth Lukes tablet 23:38: daily. Medical 15 [place] metoprolol Yes 25mg QD Take [address] (TOPROL-XL) 6-29 by mouth Luke s 25 MG 24 hr 23:38: daily. Medi dragan tablet 15 Center insulin Yes Inject [facility] 70/30, 6-29 subcutaneo Lukes insulin 23:38: usly 2 Medical NPH-insulin 15 (two) Center regular, times (HumuLIN daily 70/30) 100 before unit/mL meals. (70-30) injection cloNIDine Yes .1mg Q.[id number] Take 0.[address] HCL 6-29 [id number] mg by Lukes (CATAPRES) 23:38: 3D mouth [...] 20 MG 23:38: daily. Medical capsule 15 [place] furosemide Yes 80mg QD Take [address] (LASIX) 80 6-29 by mouth Lukes MG tablet 23:38: daily. Medica l 15 [place] metoprolol Yes 12.5mg Take 12.[address] tartrate 6-29 mg by Lukes (LOPRESSOR 23:38: mouth. Medic al ORAL) 15 [place] atorvastati Yes 80mg QD Take [address] n (LIPITOR) 6-29 by mouth Luke s 80 MG 23:38: daily. Medical tablet 15 [place] famotidine Yes 20mg QD Take [address] (PEPCID) 20 6-29 by mouth Luke s MG tablet 23:38: daily. Medica l 15 [place] GABAPENTIN Yes 200mg QD Take [address] ORAL 6-29 mg by Lukes 23:38: mouth Medical 15 daily. [place] aspirin 81 Yes 81mg QD Take [address] MG EC 6-29 by mouth Lukes tablet 23:38: daily. Medical 15 [place] metoprolol Yes 25mg QD Take [address] (TOPROL-XL) 6-29 by mouth Luke s 25 MG 24 hr 23:38: daily. Medi dragan tablet 15 [place] insulin Yes Inject [facility] 70/30, 6-29 subcutaneo Lukes insulin 23:38: usly 2 Medical NPH-insulin 15 (two) Center regular, times (HumuLIN daily 70/30) 100 before unit/mL meals. (70-30) injection cloNIDine Yes .1mg Q.[id number] Take 0.[address] HCL 6-29 [id number] mg by Lukes (CATAPRES) 23:38: 3D mouth [...] 20 MG 23:38: daily. Medical capsule 15 [place] furosemide Yes 80mg QD Take [address] (LASIX) 80 6-29 by mouth Lukes MG tablet 23:38: daily. Medica l 15 [place] metoprolol Yes 12.5mg Take 12.[address] tartrate 6-29 mg by Lukes (LOPRESSOR 23:38: mouth. Medic al ORAL) 15 [place] atorvastati Yes 80mg QD Take [address] n (LIPITOR) 6-29 by mouth Luke s 80 MG 23:38: daily. Medical tablet 15 [place] famotidine Yes 20mg QD Take [address] (PEPCID) 20 6-29 by mouth Luke s MG tablet 23:38: daily. Medica l 15 [place] GABAPENTIN Yes 200mg QD Take [address] ORAL 6-29 mg by Lukes 23:38: mouth Medical 15 daily. [place] aspirin 81 Yes 81mg QD Take [address] MG EC 6-29 by mouth Lukes tablet 23:38: daily. Medical 15 [place] metoprolol Yes 25mg QD Take [address] (TOPROL-XL) 6-29 by mouth Luke s 25 MG 24 hr 23:38: daily. Medi dragan tablet 15 [place] insulin Yes Inject [facility] 70/30, 6-29 subcutaneo Lukes insulin 23:38: usly 2 Medical NPH-insulin 15 (two) Center regular, times (HumuLIN daily 70/30) 100 before unit/mL meals. (70-30) injection cloNIDine Yes .1mg Q.[id number] Take 0.[address] HCL 6-29 [id number] mg by Lukes (CATAPRES) 23:38: 3D mouth [...] 20 MG 23:38: daily. Medical capsule 15 [place] furosemide Yes 80mg QD Take [address] (LASIX) 80 6-29 by mouth Lukes MG tablet 23:38: daily. Medica l 15 [place] metoprolol Yes 12.5mg Take 12.[address] tartrate 6-29 mg by Lukes (LOPRESSOR 23:38: mouth. Medic al ORAL) 15 [place] atorvastati Yes 80mg QD Take [address] n (LIPITOR) 6-29 by mouth Luke s 80 MG 23:38: daily. Medical tablet 15 [place] famotidine Yes 20mg QD Take [address] (PEPCID) 20 6-29 by mouth Luke s MG tablet 23:38: daily. Medica l 15 [place] GABAPENTIN Yes 200mg QD Take [address] ORAL 6-29 mg by Lukes 23:38: mouth Medical 15 daily. [place] aspirin 81 Yes 81mg QD Take [address] MG EC 6-29 by mouth Lukes tablet 23:38: daily. Medical 15 [place] metoprolol Yes 25mg QD Take [address] (TOPROL-XL) 6-29 by mouth Luke s 25 MG 24 hr 23:38: daily. Medi dragan tablet 15 Center insulin Yes Inject [facility] 70/30, 6-29 subcutaneo Lukes insulin 23:38: usly 2 Medical NPH-insulin 15 (two) Center regular, times (HumuLIN daily 70/30) 100 before unit/mL meals. (70-30) injection cloNIDine Yes .1mg Q.[id number] Take 0.[address] HCL 6-29 [id number] mg by Lukes (CATAPRES) 23:38: 3D mouth [...] 20 MG 23:38: daily. Medical capsule 15 [place] furosemide Yes 80mg QD Take [address] (LASIX) 80 6-29 by mouth Lukes MG tablet 23:38: daily. Medica l 15 [place] metoprolol Yes 12.5mg Take 12.[address] tartrate 6-29 mg by Lukes (LOPRESSOR 23:38: mouth. Medic al ORAL) 15 [place] atorvastati Yes 80mg QD Take [address] n (LIPITOR) 6-29 by mouth Luke s 80 MG 23:38: daily. Medical tablet 15 [place] famotidine Yes 20mg QD Take [address] (PEPCID) 20 6-29 by mouth Luke s MG tablet 23:38: daily. Medica l 15 [place] GABAPENTIN Yes 200mg QD Take [address] ORAL 6-29 mg by Lukes 23:38: mouth Medical 15 daily. [place] aspirin 81 Yes 81mg QD Take 81 [...] unit/mL meals. (70-30) injection cloNIDine Yes .1mg Q.[id number] Take 0.[address] HCL 6-29 [id number] mg by Lukes (CATAPRES) 23:38: 3D mouth [...] 20 MG 23:38: daily. Medical capsule 15 [place] furosemide Yes 80mg QD Take [address] (LASIX) 80 6-29 by mouth Lukes MG tablet 23:38: daily. Medica l 15 [place] metoprolol Yes 12.5mg Take 12.[address] tartrate 6-29 mg by Lukes (LOPRESSOR 23:38: mouth. Medic al ORAL) 15 [place] atorvastati Yes 80mg QD Take [address] n (LIPITOR) 6-29 by mouth Luke s 80 MG 23:38: daily. Medical tablet 15 [place] famotidine Yes 20mg QD Take [address] (PEPCID) 20 6-29 by mouth Luke s MG tablet 23:38: daily. Medica l 15 [place] GABAPENTIN Yes 200mg QD Take [address] ORAL 6-29 mg by Lukes 23:38: mouth Medical 15 daily. Center aspirin 81 Yes 81mg QD Take [address] MG EC 6-29 by mouth Lukes tablet 23:38: daily. Medical 15 [place] aspirin 81 0 Yes 81mg QD Take [address] MG EC 6-29 by mouth Lukes tablet 23:38: daily. [facility] 15 [place] metoprolol Yes 25mg QD Take [address] (TOPROL-XL) 6-29 by mouth Luke s 25 MG 24 hr 23:38: daily. Medi dragan tablet 15 [place] insulin Yes Inject [facility] 70/30, 6-29 subcutaneo Lukes insulin 23:38: usly 2 Medical NPH-insulin 15 (two) Center regular, times (HumuLIN daily 70/30) 100 before unit/mL meals. (70-30) injection cloNIDine Yes .1mg Q.[id number] Take 0.[address] HCL 6-29 [id number] mg by Lukes (CATAPRES) 23:38: 3D mouth [...] 20 MG 23:38: daily. Medical capsule 15 [place] metoprolol Yes 25mg QD Take [address] (TOPROL-XL) 6-29 by mouth Luke s 25 MG 24 hr 23:38: daily. Medi dragan tablet 15 [place] furosemide Yes 80mg QD Take [address] (LASIX) 80 6-29 by mouth Lukes MG tablet 23:38: daily. Medica l 15 [place] metoprolol Yes 12.5mg Take 12.[address] [...] MG tablet 23:38: daily. Medica l 15 [place] GABAPENTIN Yes 200mg QD Take [address] ORAL 6-29 mg by Lukes 23:38: mouth Medical 15 daily. [place] insulin Yes Inject [facility] 70/30, 6-29 subcutaneo Lukes insulin 23:38: usly 2 Medical NPH-insulin 15 (two) Center regular, times (HumuLIN daily 70/30) 100 before unit/mL meals. (70-30) injection aspirin 81 Yes 81mg QD Take [address] MG EC 6-29 by mouth Lukes tablet 23:38: daily. Medical 15 Center metoprolol Yes 25mg QD Take [address] (TOPROL-XL) 6-29 by mouth Luke s 25 MG 24 hr 23:38: daily. Medi dragan tablet 15 [place] insulin Yes Inject [facility] 70/30, 6-29 subcutaneo Lukes insulin 23:38: usly 2 Medical NPH-insulin 15 (two) Center regular, times (HumuLIN daily 70/30) 100 before unit/mL meals. (70-30) injection cloNIDine Yes .1mg Q.[id number] Take 0.[address] HCL 6-29 [id number] mg by Lukes (CATAPRES) 23:38: 3D mouth [...] MG tablet 23:38: daily. Medica l 15 [place] metoprolol Yes 12.5mg Take 12.[address] tartrate 6-29 mg by Lukes (LOPRESSOR 23:38: mouth. Medic al ORAL) 15 Center cloNIDine Yes .1mg Q.[id number] Take 0.[address] HCL 6-29 [id number] mg by Lukes (CATAPRES) 23:38: 3D mouth 3 Medi dragan 0.1 MG 15 (three) Center tablet times daily. atorvastati Yes 80mg QD Take [address] n (LIPITOR) 6-29 by mouth Luke s 80 MG 23:38: daily. Medical tablet 15 [place] famotidine Yes 20mg QD Take [address] (PEPCID) 20 6-29 by mouth Luke s MG tablet 23:38: daily. Medica l 15 [place] GABAPENTIN Yes 200mg QD Take [address] ORAL 6-29 mg by Lukes 23:38: mouth Medical 15 daily. [place] apixaban Yes 5mg Q.5D Take 5 mg [...] MG tablet 23:38: daily. Medica l 15 [place] metoprolol Yes 12.5mg Take 12.[address] tartrate 6-29 mg by Lukes (LOPRESSOR 23:38: mouth. Medic al ORAL) 15 Center atorvastati Yes 80mg QD Take [address] n (LIPITOR) 6-29 by mouth Luke s 80 MG 23:38: daily. Medical tablet 15 [place] famotidine Yes 20mg QD Take [address] (PEPCID) 20 6-29 by mouth Luke s MG tablet 23:38: daily. Medica l 15 [place] GABAPENTIN Yes 200mg QD Take [address] ORAL 6-29 mg by Lukes 23:38: mouth Medical 15 daily. [place] aspirin 81 Yes 81mg QD Take [address] MG EC 6-29 by mouth Lukes tablet 23:38: daily. Medical 15 [place] metoprolol Yes 25mg QD Take [address] (TOPROL-XL) 6-29 by mouth Luke s 25 MG 24 hr 23:38: daily. Medi dragan tablet 15 Center insulin Yes Inject [facility] 70/30, 6-29 subcutaneo Lukes insulin 23:38: usly 2 Medical NPH-insulin 15 (two) Center regular, times (HumuLIN daily 70/30) 100 before unit/mL meals. (70-30) injection cloNIDine Yes .1mg Q.[id number] Take 0.[address] HCL 6-29 [id number] mg by Lukes (CATAPRES) 23:38: 3D mouth [...] MG tablet 23:38: daily. Medica l 15 [place] GABAPENTIN Yes 200mg QD Take [address] ORAL 6-29 mg by Lukes 23:38: mouth Medical 15 daily. [place] aspirin 81 Yes 81mg QD Take [address] MG EC 6-29 by mouth Lukes tablet 23:38: daily. Medical 15 [place] metoprolol Yes 25mg QD Take [address] (TOPROL-XL) 6-29 by mouth Luke s 25 MG 24 hr 23:38: daily. Medi dragan tablet 15 [place] insulin Yes Inject [facility] 70/30, 6-29 subcutaneo Lukes insulin 23:38: usly 2 Medical NPH-insulin 15 (two) Center regular, times (HumuLIN daily 70/30) 100 before unit/mL meals. (70-30) injection cloNIDine Yes .1mg Q.[id number] Take 0.[address] HCL 6-29 [id number] mg by Lukes (CATAPRES) 23:38: 3D mouth [...] ORAL) 15 Center BD Insulin BD Insulin 2020-0 No TID BD Insulin Syr Syr 15 [...] MG 00:00: Hospita capsule 00 l famotidine 0 Yes TK 1 T PO [...] MG 00:00: Hospita tablet 00 l atorvastati 2018-0 Yes TK 1 [...] MG tablet 00:00: Hospita 00 l levothyroxi 2018-0 Yes TK 1 T PO [...] unit/mL 00 Center (3 mL) InPn injection Eliquis 2.5 Eliquis 2.5 No 1 BID [...] MOUTH ONCE MOUTH ONCE DAILY DAILY DAILY Immunizations Ordered Immunization Filled Immunization Date Status Commen ts Source Name Name FLUZONE HIGH DOSE FLUZONE HIGH DOSE 2021-03-07 Completed [facility] OVER 65 OVER 65 10:58:00 [facility] FLUZONE HIGH DOSE FLUZONE HIGH DOSE 2021-03-07 Completed [facility] OVER 65 OVER 65 10:58:00 [facility] FLUZONE HIGH DOSE FLUZONE HIGH DOSE 2021-03-07 Completed [facility] OVER 65 OVER 65 10:58:00 - [facility] FLUZONE HIGH DOSE FLUZONE HIGH DOSE 2021-03-07 Completed [facility] OVER 65 OVER 65 10:58:00 [facility] FLUZONE HIGH DOSE FLUZONE HIGH DOSE 2021-03-07 Completed [facility] OVER 65 OVER 65 10:58:00 [facility] FLUZONE HIGH DOSE FLUZONE HIGH DOSE 2021-03-07 Completed [facility] OVER 65 OVER 65 10:58:00 [facility] FLUZONE HIGH DOSE FLUZONE HIGH DOSE 2021-03-07 Completed [facility] OVER 65 OVER 65 10:58:00 [facility] FLUZONE HIGH DOSE FLUZONE HIGH DOSE 2021-03-07 Completed [facility] OVER 65 OVER 65 10:58:00 [facility] FLUZONE HIGH DOSE FLUZONE HIGH DOSE 2021-03-07 Completed [facility] OVER 65 OVER 65 10:58:00 [facility] FLUZONE HIGH DOSE FLUZONE HIGH DOSE 2021-03-07 Completed [facility] OVER 65 OVER 65 10:58:00 [facility] FLUZONE HIGH DOSE FLUZONE HIGH DOSE 2021-03-07 Completed [facility] OVER 65 OVER 65 10:58:00 - [facility] FLUZONE HIGH DOSE FLUZONE HIGH DOSE 2021-03-07 Completed [facility] OVER 65 OVER 65 10:58:00 - [facility] FLUZONE HIGH DOSE FLUZONE HIGH DOSE 2021-03-07 Completed [facility] OVER 65 OVER 65 10:58:00 - [facility] FLUZONE HIGH DOSE FLUZONE HIGH DOSE 2021-03-07 Completed [facility] OVER 65 OVER 65 10:58:00 - [facility] FLUZONE HIGH DOSE FLUZONE HIGH DOSE 2021-03-07 Completed [facility] OVER 65 OVER 65 10:58:00 - [facility] FLUZONE HIGH DOSE FLUZONE HIGH DOSE 2021-03-07 Completed [facility] OVER 65 OVER 65 10:58:00 [facility] COVID-19 Vaccine COVID-19 Vaccine 2020-04-14 Completed [facility] (Dmitry) (Dmitry) 13:50:00 - [facility] COVID-19 Vaccine COVID-19 Vaccine 2020-04-14 Completed [facility] (Dmitry) (Dmitry) 13:50:00 [facility] COVID-19 Vaccine COVID-19 Vaccine 2020-04-14 Completed [facility] (Dmitry) (Dmitry) 13:50:00 - [facility] COVID-19 Vaccine COVID-19 Vaccine 2020-04-14 Completed [facility] (Dmitry) (Dmitry) 13:50:00 - [facility] COVID-19 Vaccine COVID-19 Vaccine 2020-04-14 Completed [facility] (Dmitry) (Dmitry) 13:50:00 [facility] COVID-19 Vaccine COVID-19 Vaccine 2020-04-14 Completed [facility] (Dmitry) (Dmitry) 13:50:00 - [facility] COVID-19 Vaccine COVID-19 Vaccine 2020-04-14 Completed [facility] (Dmitry) (Dmitry) 13:50:00 [facility] COVID-19 Vaccine COVID-19 Vaccine 2020-04-14 Completed [facility] (Dmitry) (Dmitry) 13:50:00 - [facility] COVID-19 Vaccine COVID-19 Vaccine 2020-04-14 Completed [facility] (Dmitry) (Dmitry) 13:50:00 - [facility] COVID-19 Vaccine COVID-19 Vaccine 2020-04-14 Completed [facility] (Dmitry) (Dmitry) 13:50:00 - [facility] COVID-19 Vaccine COVID-19 Vaccine 2020-04-14 Completed [facility] (Dmitry) (Dmitry) 13:50:00 - [facility] COVID-19 Vaccine COVID-19 Vaccine 2020-04-14 Completed [facility] ([facility]mit[facility]) (Dmitry) 13:50:00 - [facility] COVID-19 Vaccine COVID-19 Vaccine 2020-04-14 Completed [facility] (Dmitry) (Dmitry) 13:50:00 - [facility] COVID-19 Vaccine COVID-19 Vaccine 2020-04-14 Completed [facility] (Dmitry) (Dmitry) 13:50:00 - [facility] COVID-19 Vaccine COVID-19 Vaccine 2020-04-14 Completed [facility] (Dmitry) (Dmitry) 13:50:00 - [facility] COVID-19 Vaccine COVID-19 Vaccine 2020-04-14 Completed [facility] (Dmitry) (Dmitry) 13:50:00 - [facility] Influenza Three-TIV 2017-01-31 [facility]00 [facility] Influenza Three-TIV 2017-01-31 [facility] 00:00:00 [facility] Influenza Three-TIV 2017-01-31 [facility] 00:00:00 [facility] Influenza Three-TIV 2017-01-31 Com[facility] 00:00:00 [facility] Influenza Three-TIV 2017-01-31 Com[facility] 00:00:00 [facility] Influenza Three-TIV 2017-01-31 Com[facility] 00:00:00 [facility] Influenza Three-TIV 2017-01-31 [facility] Influenza Three-TIV 2017-01-31 [facility] 00:00:00 [facility] Influenza Three-TIV 2017-01-31 Com[facility]:00 [facility] Center Influenza Three-TIV 2017-01-31 Com[facility] 00:00:00 [facility] Influenza Three-TIV 2017-01-31 Com[facility] 00:00:00 [facility] Influenza Three-TIV 2017-01-31 Com[facility] 00:00:00 [facility] Influenza Three-TIV 2017-01-31 [facility] PF 5+ YR 00:00:00 [facility] Influenza Three-TIV 2017-01-31 Completed [facility] PF 5+ YR 00:00:00 [facility] Vital Signs Vital Name Observation Time Observation Value Comments Source HEIGHT 2020-08-08 13:02:00 165.1 cm WEIGHT 2020-08-08 13:02:00 104.327 kg BP Diastolic 2022-05-28 00:00:00 72 mm[Hg] Colby Currie [facility] Height 2022-05-28 00:00:00 65 [in_i] Colby Currie [facility] BMI (Body Mass Index) 2022-05-28 00:00:00 41.6 kg/m2 [facility] BP Systolic 2022-05-28 00:00:00 131 mm[Hg] [facility] Cur[facility] Body Weight 2022-05-28 00:00:00 4000 [oz_av] Colby Currie [facility] height 2022-01-01 13:20:00 64 [in_i] [facility] weight 2022-01-01 13:20:00 230 [lb_av] [facility] temperature 2022-01-01 13:20:00 97.4 [degF] [facility] bmi 2022-01-01 13:20:00 39.48 kg/m2 [facility] oximetry 2022-01-01 13:20:00 98 % [facility] respiratory rate 2022-01-01 13:20:00 17 /min Comm on [facility] blood pressure 2022-01-01 13:20:00 132 mm[Hg] [facility] - systolic [facility] blood pressure 2022-01-01 13:20:00 80 mm[Hg] Common [facility] - diastolic [facility] height 2021-10-02 14:20:00 64 [in_i] [facility] weight 2021-10-02 14:20:00 230 [lb_av] Common [facility] temperature 2021-10-02 14:20:00 97.9 [degF] Common [facility] bmi 2021-10-02 14:20:00 39.48 kg/m2 [facility] oximetry 2021-10-02 14:20:00 97 % [facility] respiratory rate 2021-10-02 14:20:00 18 /min Comm on [facility] blood pressure 2021-10-02 14:20:00 138 mm[Hg] Common [facility] - systolic [facility] blood pressure 2021-10-02 14:20:00 86 mm[Hg] Common [facility] - diastolic [facility] height 2021-07-19 13:40:00 64 [in_i] Common [facility] weight 2021-07-19 13:40:00 230 [lb_av] [facility] temperature 2021-07-19 13:40:00 97.9 [degF] [facility] bmi 2021-07-19 13:40:00 39.48 kg/m2 [facility] oximetry 2021-07-19 13:40:00 97 % [facility] respiratory rate 2021-07-19 13:40:00 16 /min Comm on [facility] blood pressure 2021-07-19 13:40:00 161 mm[Hg] Common [facility] - systolic [facility] blood pressure 2021-07-19 13:40:00 90 mm[Hg] [facility] - diastolic [facility] height 2021-06-05 13:20:00 64 [in_i] Common [facility] weight 2021-06-05 13:20:00 230 [lb_av] Common [facility] temperature 2021-06-05 13:20:00 97.6 [degF] [facility] bmi 2021-06-05 13:20:00 39.48 kg/m2 [facility] oximetry 2021-06-05 13:20:00 96 % Common [facility] respiratory rate 2021-06-05 13:20:00 18 /min Comm on [facility] blood pressure 2021-06-05 13:20:00 142 mm[Hg] [facility] - systolic [facility] blood pressure 2021-06-05 13:20:00 70 mm[Hg] [facility] - diastolic [facility] height 2021-04-27 10:40:00 64 [in_i] Common [facility] weight 2021-04-27 10:40:00 230 [lb_av] Common [facility] temperature 2021-04-27 10:40:00 97.7 [degF] Common [facility] bmi 2021-04-27 10:40:00 39.48 kg/m2 Common [facility] oximetry 2021-04-27 10:40:00 95 % [facility] respiratory rate 2021-04-27 10:40:00 18 /min Comm on [facility] blood pressure 2021-04-27 10:40:00 134 mm[Hg] Common [facility] - systolic [facility] blood pressure 2021-04-27 10:40:00 60 mm[Hg] [facility] - diastolic [facility] blood pressure 2021-03-07 09:40:00 132 mm[Hg] [facility] - systolic [facility] blood pressure 2021-03-07 09:40:00 80 mm[Hg] Common [facility] - diastolic [facility] height 2021-03-07 09:40:00 64 [in_i] Common [facility] weight 2021-03-07 09:40:00 230 [lb_av] [facility] temperature 2021-03-07 09:40:00 98.1 [degF] [facility] bmi 2021-03-07 09:40:00 39.48 kg/m2 [facility] oximetry 2021-03-07 09:40:00 98 % [facility] respiratory rate 2021-03-07 09:40:00 16 /min Comm on [facility] height 2021-03-07 10:20:00 64 [in_i] Common [facility] weight 2021-03-07 10:20:00 230 [lb_av] [facility] temperature 2021-03-07 10:20:00 98.1 [degF] [facility] 2021-03-07 10:20:00 39.48 kg/m2 [facility] oximetry 2021-03-07 10:20:00 98 % [facility] blood pressure 2021-03-07 10:20:00 132 mm[Hg] [facility] - systolic [facility] blood pressure 2021-03-07 10:20:00 80 mm[Hg] [facility] - diastolic [facility] HEIGHT 2020-08-08 13:02:00 165.1 cm WEIGHT 2020-08-08 [...] Influenza Vaccine (Season Ended)] Future Scheduled Test 2022-10-11 Influenza Vaccine [facility] 00:00:00 (#1) [code = Medical Center Influenza Vaccine (#1)] Future Scheduled Test 2022-08-01 COVID-19 VACCINE (#1) [facility] 09:52:10 [code = COVID-19 VACCINE (#1)] Future Scheduled Test 2022-08-01 SHINGLES VACCINES (1 [facility] 09:52:10 of 2) [code = SHINGLES VACCINES (1 of 2)] Future Scheduled Test 2022-08-01 65+ PNEUMOCOCCAL [facility] 09:52:10 VACCINE (1 - PCV) [code = 65+ PNEUMOCOCCAL VACCINE (1 - PCV)] Future Scheduled Test 2022-08-01 INFLUENZA VACCINE [facility] 09:52:10 [code = INFLUENZA VACCINE] Future Scheduled Test 2022-08-01 COVID-19 VACCINE (#1) [facility] 09:52:10 [code = COVID-19 VACCINE (#1)] Future Scheduled Test 2022-08-01 SHINGLES VACCINES (1 [facility] 09:52:10 of 2) [code = SHINGLES VACCINES (1 of 2)] Future Scheduled Test 2022-08-01 65+ PNEUMOCOCCAL [facility] 09:52:10 VACCINE (1 - PCV) [code = 65+ PNEUMOCOCCAL VACCINE (1 - PCV)] Future Scheduled Test 2022-08-01 INFLUENZA VACCINE [facility] 09:52:10 [code = INFLUENZA VACCINE] Future Scheduled Test 2022-06-25 COVID-19 VACCINE (#1) [facility] 15:49:38 [code = COVID-19 VACCINE (#1)] Future Scheduled Test 2022-06-25 SHINGLES VACCINES (1 [facility] 15:49:38 of 2) [code = SHINGLES VACCINES (1 of 2)] Future Scheduled Test 2022-06-25 65+ PNEUMOCOCCAL [facility] 15:49:38 VACCINE (1 - PCV) [code = 65+ PNEUMOCOCCAL VACCINE (1 - PCV)] Future Scheduled Test 2022-06-25 INFLUENZA VACCINE [facility] 15:49:38 [code = INFLUENZA VACCINE] Future Scheduled Test 2022-06-25 COVID-19 VACCINE (#1) [facility] 15:49:38 [code = COVID-19 VACCINE (#1)] Future Scheduled Test 2022-06-25 SHINGLES VACCINES (1 [facility] 15:49:38 of 2) [code = SHINGLES VACCINES (1 of 2)] Future Scheduled Test 2022-06-25 65+ PNEUMOCOCCAL [facility] 15:49:38 VACCINE (1 - PCV) [code = 65+ PNEUMOCOCCAL VACCINE (1 - PCV)] Future Scheduled Test 2022-06-25 INFLUENZA VACCINE [facility] 15:49:38 [code = INFLUENZA VACCINE] Future Scheduled Test 2022-06-25 COVID-19 VACCINE (#1) [facility] 15:49:38 [code = COVID-19 VACCINE (#1)] Future Scheduled Test 2022-06-25 SHINGLES VACCINES (1 [facility] 15:49:38 of 2) [code = SHINGLES VACCINES (1 of 2)] Future Scheduled Test 2022-06-25 65+ PNEUMOCOCCAL [facility] 15:49:38 VACCINE (1 - PCV) [code = 65+ PNEUMOCOCCAL VACCINE (1 - PCV)] Future Scheduled Test 2022-06-25 INFLUENZA VACCINE [facility] 15:49:38 [code = INFLUENZA VACCINE] Future Scheduled Test 2022-06-25 COVID-19 VACCINE (#1) [facility] 15:49:38 [code = COVID-19 VACCINE (#1)] Future Scheduled Test 2022-06-25 SHINGLES VACCINES (1 [facility] 15:49:38 of 2) [code = SHINGLES VACCINES (1 of 2)] Future Scheduled Test 2022-06-25 65+ PNEUMOCOCCAL [facility] 15:49:38 VACCINE (1 - PCV) [code = 65+ PNEUMOCOCCAL VACCINE (1 - PCV)] Future Scheduled Test 2022-06-25 INFLUENZA VACCINE [facility] 15:49:38 [code = INFLUENZA VACCINE] Future Scheduled Test 2022-05-29 COVID-19 VACCINE (#1) [facility] 16:19:09 [code = COVID-19 VACCINE (#1)] Future Scheduled Test 2022-05-29 SHINGLES VACCINES (1 [facility] 16:19:09 of 2) [code = SHINGLES VACCINES (1 of 2)] Future Scheduled Test 2022-05-29 65+ PNEUMOCOCCAL [facility] 16:19:09 VACCINE (1 - PCV) [code = 65+ PNEUMOCOCCAL VACCINE (1 - PCV)] Future Scheduled Test 2022-05-29 INFLUENZA VACCINE [facility] 16:19:09 [code = INFLUENZA VACCINE] Future Scheduled Test 2022-05-29 COVID-19 VACCINE (#1) [facility] 16:19:09 [code = COVID-19 VACCINE (#1)] Future Scheduled Test 2022-05-29 SHINGLES VACCINES (1 [facility] 16:19:09 of 2) [code = SHINGLES VACCINES (1 of 2)] Future Scheduled Test 2022-05-29 65+ PNEUMOCOCCAL [facility] 16:19:09 VACCINE (1 - PCV) [code = 65+ PNEUMOCOCCAL VACCINE (1 - PCV)] Future Scheduled Test 2022-05-29 INFLUENZA VACCINE [facility] 16:19:09 [code = INFLUENZA VACCINE] Future Scheduled Test 2022-05-29 COVID-19 VACCINE (#1) [facility] 16:19:09 [code = COVID-19 VACCINE (#1)] Future Scheduled Test 2022-05-29 SHINGLES VACCINES (1 [facility] 16:19:09 of 2) [code = SHINGLES VACCINES (1 of 2)] Future Scheduled Test 2022-05-29 65+ PNEUMOCOCCAL [facility] 16:19:09 VACCINE (1 - PCV) [code = 65+ PNEUMOCOCCAL VACCINE (1 - PCV)] Future Scheduled Test 2022-05-29 INFLUENZA VACCINE [facility] 16:19:09 [code = INFLUENZA VACCINE] Future Scheduled Test 2022-03-08 COVID-19 VACCINE (#1) [facility] 05:54:06 [code = COVID-19 VACCINE (#1)] Future Scheduled Test 2022-03-08 SHINGLES VACCINES (1 [facility] 05:54:06 of 2) [code = SHINGLES VACCINES (1 of 2)] Future Scheduled Test 2022-03-08 65+ PNEUMOCOCCAL [facility] 05:54:06 VACCINE (1 - PCV) [code = 65+ PNEUMOCOCCAL VACCINE (1 - PCV)] Future Scheduled Test 2022-03-08 INFLUENZA VACCINE [facility] 05:54:06 [code = INFLUENZA VACCINE] Future Scheduled Test 2022-03-08 COVID-19 VACCINE (#1) [facility] 05:54:06 [code = COVID-19 VACCINE (#1)] Future Scheduled Test 2022-03-08 SHINGLES VACCINES (1 [facility] 05:54:06 of 2) [code = SHINGLES VACCINES (1 of 2)] Future Scheduled Test 2022-03-08 65+ PNEUMOCOCCAL [facility] 05:54:06 VACCINE (1 - PCV) [code = 65+ PNEUMOCOCCAL VACCINE (1 - PCV)] Future Scheduled Test 2022-03-08 INFLUENZA VACCINE [facility] 05:54:06 [code = INFLUENZA VACCINE] [...] 00:00:00 measurement Medical Center (procedure) [code = 76655302] Future Scheduled Test 2017-08-[address] [facility] 00:00:00 measurement Medical Center (procedure) [code = 26550313] Future Scheduled Test 2017-08-[address] [facility] 00:00:00 measurement Medical Center (procedure) [code = 94899969] Future Scheduled Test 2017-08-[address] [facility] 00:00:00 measurement Medical Center (procedure) [code = 18726975] Future Scheduled Test 2017-08-[address] [facility] 00:00:00 measurement Medical Center (procedure) [code = 44499417] Future Scheduled Test 2017-08-[address] [facility] 00:00:00 measurement Medical Center (procedure) [code = 98012865] Future Scheduled Test 2017-08-[address] [facility] 00:00:00 measurement Medical Center (procedure) [code = 10773899] Future Scheduled Test 2017-08-[address] [facility] 00:00:00 measurement Medical Center (procedure) [code = 59076183] Future Scheduled Test 2017-08-[address] [facility] 00:00:00 measurement Medical Center (procedure) [code = 12301672] Future Scheduled Test 2017-08-[address] [facility] 00:00:00 measurement Medical Center (procedure) [code = 87555552] Future Scheduled Test 2017-08-[address] [facility] 00:00:00 measurement Medical Center (procedure) [code = 94254490] Future Scheduled Test 2017-08-[address] [facility] 00:00:00 measurement Medical Center (procedure) [code = 28540368] Future Scheduled Test 2017-08-[address] [facility] 00:00:00 measurement Medical Center (procedure) [code = 13374629] Future Scheduled Test 2017-08-[address] [facility] 00:00:00 measurement Medical Center (procedure) [code = 83103686] Future Scheduled Test 2017-02-11 MEDICARE ANNUAL [facility] [...] 00:00:00 examination Medical Center (regime/therapy) [code = 026892051] Future Scheduled Test 1951-08-13 Urine screening for [facility] 00:00:00 protein (procedure) Medical Center [code = 112210449] Future Scheduled Test 1951-08-13 DIABETIC EYE EXAM [facility] 00:00:00 [code = DIABETIC EYE Medical Center EXAM] Future Scheduled Test 1951-08-13 Diabetic foot [facility] 00:00:00 examination Medical Center (regime/therapy) [code = 037396456] Future Scheduled Test 1951-08-13 Urine screening for [facility] 00:00:00 protein (procedure) Medical Center [code = 090197521] Future Scheduled Test 1951-08-13 DIABETIC EYE EXAM [facility] 00:00:00 [code = DIABETIC EYE Medical Center EXAM] Future Scheduled Test 1951-08-13 Diabetic foot [facility] 00:00:00 examination Medical Center (regime/therapy) [code = 260982219] Future Scheduled Test 1951-08-13 Urine screening for [facility] 00:00:00 protein (procedure) Medical Center [code = 811929822] Future Scheduled Test 1951-08-13 DIABETIC EYE EXAM [facility] 00:00:00 [code = DIABETIC EYE Medical Center EXAM] Future Scheduled Test 1951-08-13 Diabetic foot [facility] 00:00:00 examination Medical Center (regime/therapy) [code = 472699633] Future Scheduled Test 1951-08-13 Urine screening for [facility] 00:00:00 protein (procedure) Medical Center [code = 410833985] Future Scheduled Test 1951-08-13 DIABETIC EYE EXAM [facility] 00:00:00 [code = DIABETIC EYE Medical Center EXAM] Future Scheduled Test 1951-08-13 Diabetic foot [facility] 00:00:00 examination Medical Center (regime/therapy) [code = 307105251] Future Scheduled Test 1951-08-13 Urine screening for [facility] 00:00:00 protein (procedure) Medical Center [code = 027040008] Future Scheduled Test 1951-08-13 DIABETIC EYE EXAM [facility] 00:00:00 [code = DIABETIC EYE Medical Center EXAM] Future Scheduled Test 1951-08-13 Diabetic foot [facility] 00:00:00 examination Medical Center (regime/therapy) [code = 099912178] Future Scheduled Test 1951-08-13 DIABETIC EYE EXAM [facility] 00:00:00 [code = DIABETIC EYE Medical Center EXAM] Future Scheduled Test 1951-08-13 Diabetic foot [facility] 00:00:00 examination Medical Center (regime/therapy) [code = 179754084] Future Scheduled Test 1951-08-13 Urine screening for [facility] 00:00:00 protein (procedure) Medical Center [code = 287109523] Future Scheduled Test 1951-08-13 Urine screening for [facility] 00:00:00 protein (procedure) Medical Center [code = 292114412] Future Scheduled Test 1951-08-13 DIABETIC EYE EXAM [facility] 00:00:00 [code = DIABETIC EYE Medical Center EXAM] Future Scheduled Test 1951-08-13 Diabetic foot [facility] 00:00:00 examination Medical Center (regime/therapy) [code = 677246641] Future Scheduled Test 1951-08-13 Urine screening for [facility] 00:00:00 protein (procedure) Medical Center [code = 175488401] Future Scheduled Test 1951-08-13 DIABETIC EYE EXAM [facility] 00:00:00 [code = DIABETIC EYE Medical Center EXAM] Future Scheduled Test 1951-08-13 Diabetic foot [facility] 00:00:00 examination Medical Center (regime/therapy) [code = 608862895] Future Scheduled Test 1951-08-13 Urine screening for [facility] 00:00:00 protein (procedure) Medical Center [code = 266449357] Future Scheduled Test 1951-08-13 DIABETIC EYE EXAM [facility] 00:00:00 [code = DIABETIC EYE Medical Center EXAM] Future Scheduled Test 1951-08-13 Diabetic foot [facility] 00:00:00 examination Medical Center (regime/therapy) [code = 167617350] Future Scheduled Test 1951-08-13 Urine screening for [facility] 00:00:00 protein (procedure) Medical Center [code = 162347196] Future Scheduled Test 1951-08-13 DIABETIC EYE EXAM [facility] 00:00:00 [code = DIABETIC EYE Medical Center EXAM] Future Scheduled Test 1951-08-13 Diabetic foot [facility] 00:00:00 examination Medical Center (regime/therapy) [code = 711469627] Future Scheduled Test 1951-08-13 Urine screening for [facility] 00:00:00 protein (procedure) Medical Center [code = 577133577] Future Scheduled Test 1951-08-13 DIABETIC EYE EXAM [facility] 00:00:00 [code = DIABETIC EYE Medical Center EXAM] Future Scheduled Test 1951-08-13 Diabetic foot [facility] 00:00:00 examination Medical Center (regime/therapy) [code = 044807222] Future Scheduled Test 1951-08-13 Urine screening for [facility] 00:00:00 protein (procedure) Medical Center [code = 618601588] Future Scheduled Test 1951-08-13 DIABETIC EYE EXAM [facility] 00:00:00 [code = DIABETIC EYE Medical Center EXAM] Future Scheduled Test 1951-08-13 Diabetic foot [facility] 00:00:00 examination Medical Center (regime/therapy) [code = 151804365] Future Scheduled Test 1951-08-13 Urine screening for [facility] 00:00:00 protein (procedure) Medical Center [code = 698639427] Future Scheduled Test 1951-08-13 DIABETIC EYE EXAM [facility] 00:00:00 [code = DIABETIC EYE Medical Center EXAM] Future Scheduled Test 1951-08-13 Diabetic foot [facility] 00:00:00 examination Medical Center (regime/therapy) [code = 575423585] Future Scheduled Test 1951-08-13 Urine screening for [facility] 00:00:00 protein (procedure) Medical Center [code = 989077727] Future Scheduled Test 1947-08-13 PNEUMOCOCCAL 65+ YRS [...] = DXA [facility] 00:00:00 SCAN] [facility] Future Scheduled Test 1941 DXA SCAN [code = DXA [facility] 00:00:00 SCAN] [facility] Future Scheduled Test 1941 DXA SCAN [code = DXA [facility] 00:00:00 SCAN] [facility] Future Scheduled Test 1941 DXA SCAN [code = DXA [facility] 00:00:00 SCAN] [facility] Future Scheduled Test 1941 DXA SCAN [code = DXA [facility] 00:00:00 SCAN] [facility] Future Scheduled Test 1941 DXA SCAN [code = DXA [facility] 00:00:00 SCAN] [facility] Future Scheduled Test 1941 DXA SCAN [code = DXA [facility] 00:00:00 SCAN] [facility] Future Scheduled Test 1941 DXA SCAN [code = DXA [facility] 00:00:00 SCAN] [facility] Future Appointment 2027-06-05 Nannette Sylvester [address] [place] [address] 00:00:00 [place] [address] Encounters Start End Encounter Admission Attending Care Care Encounter Source Date/Time Date/Time Type Type Clinicians Facility Department ID 2022-04-11 Outpatient Eitzen, STLMLC STLMLC [id number] Common 15:39:00 Jacqui 33141 [facility] 2022-03-18 Outpatient Eitzen, STLMLC STLMLC [id number] Common 10:09:03 Jacqui 60189 [facility] 2022-03-04 Outpatient Eitzen, STLMLC STLMLC [id number] Common 14:03:03 Jacqui 18123 [facility] 2022-02-27 Outpatient Eitzen, STLMLC STLMLC [id number] Common 09:36:03 Jacqui 56677 [facility] 2022-02-12 Outpatient Eitzen, STLMLC STLMLC [id number] Common 10:34:01 Jacqui 11699 [facility] 2021-09-28 Outpatient Eitzen, STLMLC STLMLC [id number] Common 11:23:02 Jacqui [facility] 2021-08-28 Outpatient Eitzen, STLMLC STLMLC [id number] Common 10:04:02 Jacqui [facility] 2021-07-17 Outpatient Eitzen, STLMLC STLMLC [id number] Common 11:12:01 Jacqui [facility] 2021-06-06 Outpatient Eitzen, STLMLC STLMLC [id number] Common 07:42:01 Jacqui [facility] 2021-04-25 Outpatient Eitzen, STLMLC STLMLC [id number] Common 09:14:02 Jacqui [facility] 2021-03-14 Outpatient Eitzen, STAMAYALC STLMLC [id number] Common 13:05:01 Jacqui [facility] 2021-03-07 Outpatient Rio, STLMLC STLMLC [id number] Common 14:40:28 Jacqui [facility] 2020-11-19 Outpatient KACIE CALDERON [facility] Surgery [id number] [facility] 02:33:02 2022-09-04 2022-09-04 Outpatient [facility]_Tod PRIV PRIV [id number] [facility] 00:00:00 00:00:00 d_Jessy [id number] Medica l 2022-09-03 2022-09-03 Outpatient [facility]_Tod PRIV PRIV [id number] [facility] 00:00:00 00:00:00 vishnu_Jessy [id number] Medica l 2022-08-03 2022-08-03 Outpatient [facility]_Tod PRIV PRIV [id number] [facility] 00:00:00 00:00:00 d_Jessy [id number] Medica l 2022-08-03 2022-08-03 Outpatient GC_[facility]_Tod PRIV PRIV [id number] [facility] 00:00:00 00:00:00 Bharti [id number] Medica l 2022-08-03 2022-08-03 Outpatient GC_[facility]_Tod PRIV PRIV [id number] [facility] 00:00:00 00:00:00 Bharti [id number] Medica l 2022-08-03 2022-08-03 Outpatient [facility]_Tod PRIV PRIV [id number] [facility] 00:00:00 00:00:00 d_J [id number] Medica l 2022-08-03 2022-08-03 Outpatient [facility]_Tod PRIV PRIV [id number] [facility] 00:00:00 00:00:00 d_J [id number] Medica l 2022-08-03 2022-08-03 Outpatient [facility]_Tod PRIV PRIV [id number] [facility] 00:00:00 00:00:00 d_J [id number] Medica l 2022-08-03 2022-08-03 Outpatient [facility]_Tod PRIV PRIV [id number] [facility] 00:00:00 00:00:00 d_J [id number] Medica l 2022-08-02 2022-08-02 Outpatient [facility]_Tod PRIV PRIV [id number] [facility] 00:00:00 00:00:00 d_J [id number] Medica l 2022-07-18 2022-07-18 Outpatient [facility]_Tod PRIV PRIV [id number] [facility] 00:00:00 00:00:00 d_J [id number] Medica l 2022-07-18 2022-07-18 Outpatient GC_[facility]_Tod PRIV PRIV [id number] [facility] 00:00:00 00:00:00 d_J [id number] Medica l 2022-07-18 2022-07-18 Outpatient [facility]_Tod PRIV PRIV [id number] [facility] 00:00:00 00:00:00 d_J [id number] Medica l 2022-07-18 2022-07-18 Outpatient [facility]_Tod PRIV PRIV [id number] [facility] 00:00:00 00:00:00 d_J [id number] Medica l 2022-07-02 2022-07-02 Outpatient [facility]_Tod PRIV PRIV [id number] [facility] 00:00:00 00:00:00 d_J [id number] Medica l 2022-07-02 2022-07-02 Outpatient [facility]_Tod PRIV PRIV [id number] [facility] 00:00:00 00:00:00 d_J [id number] Medica l 2022-07-02 2022-07-02 Outpatient [facility]_Tod PRIV PRIV [id number] [facility] 00:00:00 00:00:00 d_J [id number] Medica l 2022-07-02 2022-07-02 Outpatient [facility]_Tod PRIV PRIV [id number] [facility] 00:00:00 00:00:00 d_J [id number] Medica l 2022-07-02 2022-07-02 Outpatient [facility]_Tod PRIV PRIV [id number] [facility] 00:00:00 00:00:00 d_J [id number] Medica l 2022-06-28 2022-06-28 Outpatient GC_[facility]_Tod PRIV PRIV [id number] [facility] 00:00:00 00:00:00 d_J [id number] Medica l 2022-06-28 2022-06-28 Outpatient [facility]_Tod PRIV PRIV [id number] [facility] 00:00:00 00:00:00 d_J [id number] Medica l 2022-06-14 2022-06-14 Outpatient GC_[facility]_Tod PRIV PRIV [id number] [facility] 00:00:00 00:00:00 d_J [id number] Medica l 2022-06-14 2022-06-14 Outpatient GC_[facility]_Tod PRIV PRIV [id number] [facility] 00:00:00 00:00:00 d_J [id number] Medica l 2022-06-14 2022-06-14 Outpatient GC_[facility]_Tod PRIV PRIV [id number] [facility] 00:00:00 00:00:00 d_J [id number] Medica l 2022-05-30 2022-05-30 Outpatient GC_BA[facility]_Tod PRIV PRIV [id number] [facility] 00:00:00 00:00:00 d_J [id number] Medica l 2022-05-30 2022-05-30 Outpatient GC_BAHC_Tod PRIV PRIV [id number] [facility] 00:00:00 00:00:00 d_J [id number] Medica l 2022-05-28 2022-05-28 Outpatient GC_BAHC_Tod PRIV PRIV [id number] [facility] 00:00:00 00:00:00 d_J [id number] Medica l 2022-05-28 2022-05-28 Outpatient GC_BAHC_Tod PRIV PRIV [id number] [facility] 00:00:00 00:00:00 d_J [id number] Medica l 2022-05-28 2022-05-28 Nannette [facility] [id number] [facility] 00:00:00 00:00:00 ARCELIA Sylvester: Health - Med ical [address] [place] [phone] , Ph. 2022-01-08 2022-01-08 (TEL) STLMLC STLMLC [id number] [facility] m[facility] 00:00:00 00:00:00 [facility] 2022-01-01 2022-01-01 OFFICE STLMLC STLMLC [id number] Co mmon 00:00:00 00:00:00 VISIT [facility] PT - [facility] LEVEL 4 [facility] 2021-11-20 2021-11-20 (TEL) STLMLC STLMLC [id number] Co mmon 00:00:00 00:00:00 [facility] 2021-10-26 2021-10-26 (TEL) STLMLC STLMLC [id number] Co mmon 00:00:00 00:00:00 [facility] 2021-10-02 2021-10-02 OFFICE STLMLC STLMLC [id number] Co mmon 00:00:00 00:00:00 VISIT [facility] PT - [facility] LEVEL 4 [facility] 2021-08-17 2021-08-17 (TEL) STLMLC STLMLC [id number] Co mmon 00:00:00 00:00:00 [facility] 2021-07-19 2021-07-19 OFFICE STLMLC STLMLC [id number] Co mmon 00:00:00 00:00:00 VISIT [facility] PT - CHI LEVEL 4 [facility] 2021-07-17 2021-07-17 (TEL) STLMLC STLMLC [id number] Co mmon 00:00:00 00:00:00 [facility] - [facility]I [facility] 2021-06-05 2021-06-05 OFFICE STLMLC STLMLC [id number] Co mmon 00:00:00 00:00:00 VISIT [facility] PT - CHI LEVEL 4 [facility] 2021-05-08 2021-05-08 (TEL) STLMLC STLMLC [id number] Co mmon 00:00:00 00:00:00 [facility] - CHI [facility] 2021-04-27 2021-04-27 OFFICE STLMLC STLMLC [id number] Co mmon 00:00:00 00:00:00 VISIT EST [facility] PT LEVEL 3 - CHI [facility] 2021-04-19 2021-04-19 (TEL) STLMLC STLMLC [id number] Co mmon 00:00:00 00:00:00 [facility] - [facility] 2021-03-07 2021-03-07 OFFICE STLMLC STLMLC [id number] Co mmon 00:00:00 00:00:00 VISIT [facility] PT - CHI LEVEL 4 [facility] 2021-03-07 2021-03-07 SUB ANNUAL STLMLC STLMLC [id number] Common 00:00:00 00:00:00 MCR [facility] WELLNESS - CHI VISIT [facility] Results Test Description Test Time Test Comments Results Result Comments Source HEMOGLOBIN A1C 2022-01-01 00:00:00 Test Item Value Reference Range Interpretation Comme nts A1C (test code = 4548-4) 10.6 HEMOGLOBIN [id number] 00:00:00 Test Item Value Reference Range Interpretation Comments A1C (test code = 4548-4) 10.3 HEMOGLOBIN [id number] 00:00:00 Test Item Value Reference Range Interpretation Comments A1C (test code = 4548-4) 8.8 HEMOGLOBIN [id number] 00:00:00 Test Item Value Reference Range Interpretation Comments A1C (test code = 4548-4) 9.4 RAD, CHEST, 1 VIEW, NON [id number] 20:01:00Reason for exam:->s/p PPM implantShould this be performed at the bedside?->Yes [facility] 1940 Sex: FFINALREPORT AP chest dated 08/08/2020 Comment: Heart is in upper limits of normal in size. Pulmonary vasculature is unremarkable. Lungs are clear. No pulmonary infiltrate or pleural effusion. AICD is present. No pneumothorax is seen. Signed: [place] Ring MDReport Verified Date/Time: 08/08/2020 20:01:08 Reading Location: [address] Consult Reading Room BASI METABOLIC [id number] 19:57:00 Test Item Value Reference Range Interpretation [...] I S NOT APPLICABLE FOR DIALYSIS PATIEN TALON. Hotel Reservation Agent ID - FEB CCBC W/PLT COUNT & AUTO [id number] 13:56:00 Test Item Value Reference Range Interpretation [...] (BEAKER) (test code = 2801) URINALYSIS W/ [id number] 14:41:00 Test Item Value Reference Range Interpretation [...] Urine, Straight code = 2795) Catheter POCT-GLUCOSE [id number] 11:21:00 Test Item Value Reference Range Interpretation Comments POC-GLUCOSE METER 167 mg/dL 70-110 H TESTED AT [facility] 6720 (BEAKER) (test code = TUTU STROU[place] 1538) 44079 POCT-GLUCOSE [id number] 08:56:00 Test Item Value Reference Range Interpretation Comments POC-GLUCOSE METER 167 mg/dL 70-110 H TESTED AT [place] [address] ([facility]) (test code = TUTU [place] 1538) [address]70 POCT-GLUCOSE [id number] 22:03:00 Test Item Value Reference Range Interpretation Comments POC-GLUCOSE METER 128 mg/dL 70-110 H TESTED AT [place] [address] ([facility]) (test code = TUTU [place] 1538) 14024 POCT-GLUCOSE [id number] 17:31:00 Test Item Value Reference Range Interpretation Comments POC-GLUCOSE METER 141 mg/dL 70-110 H TESTED AT [place] [address] ([facility]) (test code = TUTU Reese [place] 1538) 56752 POCT-GLUCOSE [id number] 11:58:00 Test Item Value Reference Range Interpretation Comments POC-GLUCOSE METER 159 mg/dL 70-110 H TESTED AT [place] [address] ([facility]) (test code = TUTU Reese [place] 1538) 95321 POCT-GLUCOSE [id number] 07:47:00 Test Item Value Reference Range Interpretation Comments POC-GLUCOSE METER 115 mg/dL 70-110 H TESTED AT [place] [address] ([facility]) (test code = TUTU Reese [place] 1538) 71201 POCT-GLUCOSE [id number] 21:03:00 Test Item Value Reference Range Interpretation Comments POC-GLUCOSE METER 177 mg/dL 70-110 H TESTED AT [place] [address] ([facility]) (test code = TUTU Reese [place] 1538) 54037 POCT-GLUCOSE [id number] 16:23:00 Test Item Value Reference Range Interpretation Comments POC-GLUCOSE METER 185 mg/dL 70-110 H TESTED AT [place] [address] ([facility]) (test code = TUTU Reese [place] 1538) 08779 POCT-GLUCOSE [id number] 12:04:00 Test Item Value Reference Range Interpretation Comments POC-GLUCOSE METER 208 mg/dL 70-110 H TESTED AT [place] [address] ([facility]) (test code = TUTU Reese [place] 1538) 18103 POCT-GLUCOSE [id number] 07:51:00 Test Item Value Reference Range Interpretation Comments POC-GLUCOSE METER 127 mg/dL 70-110 H TESTED AT [place] [address] ([facility]) (test code = TUTU Reese [place] 1538) 11758 POCT-GLUCOSE [id number] 20:44:00 Test Item Value Reference Range Interpretation Comments POC-GLUCOSE METER 225 mg/dL 70-110 H TESTED AT [place] [address] ([facility]) (test code = TUTU [place] 1538) 38793 POCT-GLUCOSE [id number] 17:52:00 Test Item Value Reference Range Interpretation Comments POC-GLUCOSE METER 150 mg/dL 70-110 H TESTED AT [place] [address] ([facility]) (test code = TUTU [place] 1538) 41607 POCT-GLUCOSE [id number] 12:45:00 Test Item Value Reference Range Interpretation Comments POC-GLUCOSE METER 176 mg/dL 70-110 H TESTED AT [place] [address] ([facility]) (test code = TUTU Reese [facility] 1538) 03900 POCT-GLUCOSE [id number] 07:41:00 Test Item Value Reference Range Interpretation Comments POC-GLUCOSE METER 147 mg/dL 70-110 H TESTED AT [place] [address] ([facility]) (test code = TUTU Reese [facility] 1538) 80306 POCT-GLUCOSE [id number] 20:42:00 Test Item Value Reference Range Interpretation Comments POC-GLUCOSE METER 194 mg/dL 70-110 H TESTED AT [place] [address] ([facility]) (test code = TUTU Reese [facility] 1538) 89340 POCT-GLUCOSE [id number] 17:33:00 Test Item Value Reference Range Interpretation Comments POC-GLUCOSE METER 174 mg/dL 70-110 H TESTED AT [place] [address] ([facility]) (test code = TUTU Reese [facility] 1538) 38043 POCT-GLUCOSE [id number] 12:14:00 Test Item Value Reference Range Interpretation Comments POC-GLUCOSE METER 153 mg/dL 70-110 H TESTED AT [place] [address] ([facility]) (test code = TUTU Reese [facility] 1538) 53546 POCT-GLUCOSE [id number] 07:55:00 Test Item Value Reference Range Interpretation Comments POC-GLUCOSE METER 220 mg/dL 70-110 H TESTED AT [place] [address] ([facility]) (test code = TUTU Reese [facility] 1538) 79572 POCT-GLUCOSE [id number] 20:50:00 Test Item Value Reference Range Interpretation Comments POC-GLUCOSE METER 241 mg/dL 70-110 H TESTED AT [place] [id number] (BEAKER) (test code = TUTU Reese [facility] 1538) 65012 POCT-GLUCOSE [id number] 16:54:00 Test Item Value Reference Range Interpretation Comments POC-GLUCOSE METER 218 mg/dL 70-110 H TESTED AT [place] [address] (BEAKER) (test code = TUTU Reese [facility] 1538) 26658 POCT-GLUCOSE [id number] 11:45:00 Test Item Value Reference Range Interpretation Comments POC-GLUCOSE METER 257 mg/dL 70-110 H TESTED AT [place] [address] (BEAKER) (test code = TUTU Reese [facility] 1538) 88233 POCT-GLUCOSE [id number] 07:57:00 Test Item Value Reference Range Interpretation Comments POC-GLUCOSE METER 219 mg/dL 70-110 H [facility] [place] [address] [facility] (test code = TUTU Reese [facility] 1538) 86007 BASIC METABOLIC [id number] 06:05:00 Test Item Value Reference Range Interpretation [...] PATIEN TS. CBC W/PLT COUNT & AUTO [id number] 05:42:00 Test Item Value Reference Range Interpretation [...] PERCENT (BEAKER) (test code = 2801) POCT-GLUCOSE [id number] 20:57:00 Test Item Value Reference Range Interpretation Comments POC-GLUCOSE METER 301 mg/dL 70-110 H Notified Hugh Hudson MD/TESTED ([facility]) (test code = AT [place] [address] [address] 1538) [facility] 7703 0 POCT-GLUCOSE [id number] 15:57:00 Test Item Value Reference Range Interpretation Comments POC-GLUCOSE METER 292 mg/dL 70-110 H TESTED AT [place] [address] ([facility]) (test code = TUTU Reese [facility] 1538) 33501 POCT-GLUCOSE [id number] 13:36:00 Test Item Value Reference Range Interpretation Comments POC-GLUCOSE METER 181 mg/dL 70-110 H TESTED AT [place] [address] ([facility]) (test code = TUTU Reese [facility] 1538) 74914 POCT-GLUCOSE [id number] 07:46:00 Test Item Value Reference Range Interpretation Comments POC-GLUCOSE METER 172 mg/dL 70-110 H TESTED AT [place] [address] ([facility]) (test code = [facility] Hugh [facility] 1538) 61589 POCT-GLUCOSE [id number] 21:03:00 Test Item Value Reference Range Interpretation Comments POC-GLUCOSE METER 195 mg/dL 70-110 H TESTED AT [place] [address] ([facility]) (test code = TUTU Reese [facility] 1538) 50434 POCT-GLUCOSE [id number] 16:41:00 Test Item Value Reference Range Interpretation Comments POC-GLUCOSE METER 198 mg/dL 70-110 H TESTED AT [place] [address] ([facility]) (test code = LUISALESLY Hugh [facility] 1538) 40165 POCT-GLUCOSE [id number] 12:08:00 Test Item Value Reference Range Interpretation Comments POC-GLUCOSE METER 241 mg/dL 70-110 H TESTED AT [place] [address] ([facility]) (test code = TUTU Reese [facility] 1538) 42870 POCT-GLUCOSE [id number] 08:27:00 Test Item Value Reference Range Interpretation Comments POC-GLUCOSE METER 300 mg/dL 70-110 H TESTED AT [place] [address] ([facility]) (test code = LUISALESLY Reese [facility] 1538) 023[address] BASIC METABOLIC [id number] 05:56:00 Test Item Value Reference Range Interpretation [...] NOT APPLICABLE FOR DIALYSIS PATIEN TS. PROTHROMBIN [id number] 04:54:00 Test Item Value Reference Range Interpretation Comments PROTIME (BEAKER) (test code = 14.5 seconds 11.7-14.7 759) INR (BEAKER) (test code = 370) 1.1 <=5.9 RECOMMENDED COUMADIN/WARFARIN INR THERAPY RANGESSTANDARD DOSE: 2.0 - 3.0 Includes: PROPHYLAXIS for venous thrombosis, systemic embolization; TREATMENT for venous thrombosis and/or pulmonary embolus.HIGH RISK: Target INR is 2.5-3.5 for patients with mechanical heart valves.CBC W/PLT COUNT & AUTO [id number] 04:50:00 Test Item Value Reference Range Interpretation [...] PERCENT (BEAKER) (test code = 2801) POCT-GLUCOSE [id number] 22:08:00 Test Item Value Reference Range Interpretation Comments POC-GLUCOSE METER 285 mg/dL 70-110 H TESTED AT [facility] 6720 (BEAKER) (test code = TUTU STROU[place] 1538) 86735 POCT-GLUCOSE [id number] 16:19:00 Test Item Value Reference Range Interpretation Comments POC-GLUCOSE METER 230 mg/dL 70-110 H TESTED AT [facility] 6720 (BEAKER) (test code = LUISAMA Hugh [facility] 1538) [address]90 RAD, ANKLE, MIN 3 VIEWS, [id number] 12:27:00Reason for exam:->pain edema following fallFINAL REPORT Clinical history: pain edema following fall TECHNIQUE: 3 views of the right ankle COMPARISON: None IMPRESSION: There is soft tissue swelling over the medial malleolus.There is no evidence of fracture or dislocation. There are dorsal and plantar calcaneal spurs. Thereare vascular calcifications. Signed: Car Heller MDReport Verified Date/Time: 02/04/2017 12:27:23 Reading Location: [facility] Radiology Reading Room Electronically signed by: CAR HELLER M.D.on 02/04/2017 12:27 PMPOCT- GLUCOSE [id number] 11:55:00 Test Item Value Reference Range Interpretation Comments POC-GLUCOSE METER 204 mg/dL 70-110 H TESTED AT [facility] 6720 [facility] (test code = [facility] Hugh [facility] 1538) 49132 POCT-GLUCOSE [id number] 08:00:00 Test Item Value Reference Range Interpretation Comments POC-GLUCOSE METER 217 mg/dL 70-110 H TESTED AT [facility] 6720 ([facility] (test code = [facility] 1538) [address] [id number] 07:14:00 Test Item Value Reference Range Interpretation Comments PHOSPHORUS (BEAKER) (test code = 3.8 mg/dL 2.3-4.7 604) [id number] 07:14:00 Test Item Value Reference Range Interpretation Comments MAGNESIUM (BEAKER) (test code = 1.7 mg/dL 1.6-2.6 627) BASIC METABOLIC [id number] 07:14:00 Test Item Value Reference Range Interpretation [...] 358) GLUCOSE RANDOM 229 mg/dL 70-105 H ([facility]) (test code = 652) CALCIUM ([facility]) 8.5 mg/dL 8.4-10.2 (test code = 697) EGFR ([facility]) (test 74 mL/min/1.73 ESTIMA TONI GFR IS code = 1092) sq m NOT ACCURATE CREATININE CLEARANCE IN PREDICTING GLOMERULAR FILTRATION RATE . ESTIMATED GFR I S NOT APPLICABLE FOR DIALYSIS PATIEN TS. POCT-GLUCOSE [id number] 22:31:00 Test Item Value Reference Range Interpretation Comments POC-GLUCOSE METER 288 mg/dL 70-110 H TESTED AT [place] [address] ([facility]) (test code = [facility] 1538) 96258 POCT-GLUCOSE [id number] 17:03:00 Test Item Value Reference Range Interpretation Comments POC-GLUCOSE METER 268 mg/dL 70-110 H TESTED AT [place] [address] ([facility]) (test code = [facility] 1538) 55499 POCT-GLUCOSE [id number] 12:31:00 Test Item Value Reference Range Interpretation Comments POC-GLUCOSE METER 214 mg/dL 70-110 H TESTED AT [place] [address] ([facility]) (test code = [facility] 1538) [address] CT, BRAIN, WITHOUT [id number] 09:22:00FINAL REPORT CT head without contrast INDICATION: [...] MDReport Verified Date/Time: 02/03/2017 09:22:48 Reading Location: [address] Neuro Reading Room POCT-GLUCOSE [id number] 07:19:00 Test Item Value Reference Range Interpretation Comments POC-GLUCOSE METER 218 mg/dL 70-110 H TESTED AT [facility] 6720 (BEAKER) (test code = TUTU [place] 1538) 8[address] [id number] 06:12:00 Test Item Value Reference Range Interpretation Comments PHOSPHORUS (BEAKER) (test code = 3.1 mg/dL 2.3-4.7 604) [id number] 06:12:00 Test Item Value Reference Range Interpretation Comments MAGNESIUM (BEAKER) (test code = 1.6 mg/dL 1.6-2.6 627) BASIC METABOLIC [id number] 06:12:00 Test Item Value Reference Range Interpretation [...] NOT APPLICABLE FOR DIALYSIS PATIEN TS. POCT-GLUCOSE [id number] 23:10:00 Test Item Value Reference Range Interpretation Comments POC-GLUCOSE METER 239 mg/dL 70-110 H TESTED AT [place] [address] ([facility]) (test code = TUTU Reese [facility] 1538) 62041 POCT-GLUCOSE [id number] 17:20:00 Test Item Value Reference Range Interpretation Comments POC-GLUCOSE METER 291 mg/dL 70-110 H TESTED AT [place] [address] ([facility]) (test code = TUTU Reese [facility] 1538) 87654 POCT-GLUCOSE [id number] 12:39:00 Test Item Value Reference Range Interpretation Comments POC-GLUCOSE METER 274 mg/dL 70-110 H TESTED AT [place] [address] ([facility]) (test code = TUTU Reese [facility] 1538) 23613 POCT-GLUCOSE [id number] 11:35:00 Test Item Value Reference Range Interpretation Comments POC-GLUCOSE METER 289 mg/dL 70-110 H TESTED AT [place] [address] ([facility]) (test code = TUTU Reese [facility] 1538) 45356 POCT-GLUCOSE [id number] 11:07:00 Test Item Value Reference Range Interpretation Comments POC-GLUCOSE METER 271 mg/dL 70-110 H TESTED AT [place] [address] ([facility]) (test code = TUTU Reese [facility] 1538) [address] CT, BRAIN, WITHOUT [id number] 10:51:00FINAL REPORT CT head without contrast INDICATION: [...] MDReport Verified Date/Time: 02/02/2017 10:51:15 Reading Location: [address] Neuro Reading Room [id number] 06:07:00 Test Item Value Reference Range Interpretation Comments PHOSPHORUS (BEAKER) (test code = 3.2 mg/dL 2.3-4.7 604) [id number] 06:07:00 Test Item Value Reference Range Interpretation Comments MAGNESIUM (BEAKER) (test code = 2.4 mg/dL 1.6-2.6 627) BASIC METABOLIC [id number] 06:07:00 Test Item Value Reference Range Interpretation [...] NOT APPLICABLE FOR DIALYSIS PATIEN TS. POCT-GLUCOSE [id number] 21:34:00 Test Item Value Reference Range Interpretation Comments POC-GLUCOSE METER 331 mg/dL 70-110 H TESTED AT [facility] 6720 (BEAKER) (test code = TUTU Reese [place] 1538) [address] HEMOGLOBIN [id number] 14:53:00 Test Item Value Reference Range Interpretation Comments HEMOGLOBIN A1C (BEAKER) (test code = 14.8 % 4.3-6.1 H 368) POCT-GLUCOSE [id number] 11:57:00 Test Item Value Reference Range Interpretation Comments POC-GLUCOSE METER 232 mg/dL 70-110 H TESTED AT [facility] 6720 (BEAKER) (test code = TUTU Reese [place] 1538) [address] [id number] 11:44:00 Test Item Value Reference Range Interpretation Comments PHOSPHORUS (BEAKER) (test code = 3.0 mg/dL 2.3-4.7 604) [id number] 11:44:00 Test Item Value Reference Range Interpretation Comments MAGNESIUM (BEAKER) (test code = 1.3 mg/dL 1.6-2.6 L 627) BASIC METABOLIC [id number] 11:44:00 Test Item Value Reference Range Interpretation [...] PATIEN TS. CBC W/PLT COUNT & AUTO [id number] 11:18:00 Test Item Value Reference Range Interpretation [...] PERCENT (BEAKER) (test code = 2801) POCT-GLUCOSE [id number] 08:37:00 Test Item Value Reference Range Interpretation Comments POC-GLUCOSE METER 269 mg/dL 70-110 H TESTED AT [facility] 6720 ([facility]) (test code = TUTU Reese [facility] 1538) 89432 LIPID [id number] 03:12:00 Test Item Value Reference Range Interpretation Comments TRIGLYCERIDES ([facility]) (test code = 129 mg/dL 540) CHOLESTEROL ([facility]) (test code = 185 mg/dL 631) HDL CHOLESTEROL ([facility]) (test code 39 mg/dL = 976) LDL CHOLESTEROL CALCULATED ([facility]) 120 mg/dL (test code = 633) [...] Value Reference Range Interpretation Comments RPR SCREEN ([facility]) (test code = Nonreactive Nonreactive 420) POCT-GLUCOSE [id number] 01:15:00 Test Item Value Reference Range Interpretation Comments POC-GLUCOSE METER 297 mg/dL 70-110 H TESTED AT [facility] 6720 ([facility]) (test code = TUTU Reese [facility] 1538) 00166 POCT-GLUCOSE [id number] 22:01:00 Test Item Value Reference Range Interpretation Comments POC-GLUCOSE METER 354 mg/dL 70-110 H Notified R Becca SHOEMAKER/TESTED ([facility]) (test code = AT [facility] [address] [place] 1538) [facility] 7703 0 MR, BRAIN, WITHOUT [id number] 20:46:00Reason for exam:->Ischemic Stroke EvaluationFINAL REPORT MRI [...] MDReport Verified Date/Time: 01/31/2017 20:46:20 Reading Location: [facility] Radiology Reading Room MR, MRA, BRAIN, WITHOUT [id number] 20:36:00 Reason for exam:->Ischemic Stroke EvaluationFINAL REPORT MRA head and neck without contrast INDICATION: Stroke TECHNIQUE: 2-D and 3-D [id number] MRA images of the intra- and extracranial [...] left vertebral artery is not imaged. 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 Mild to moderate left vertebrobasilar confluence, moderate mid basilar artery and severe right and moderate left proximal IN[employer]IST stenoses are present. There are suspected severe left supraclinoid ICA stenosis with signal loss. There are mild stenoses of the left proximal MCA and TRUDY origins. No other flow limiting proximal [place] vessels stenosis is seen. Motion [...] severe left supraclinoid ICA and proximal right INFORMATION [employer]IST stenoses. 4. No hemodynamically significant cervical carotid artery stenosis by NASCET criteria. Signed: Charanjit Ibarra MDReport Verified Date/Time: 01/31/2017 20:36:02 Reading Location: [facility] Radiology ReadingRoom MR, MRA, NECK, WITHOUT IV [id number] 20:36:00Reason for exam:->Ischemic Stroke EvaluationFINAL REPORT MRA head and neck without contrast INDICATION: Stroke TECHNIQUE: 2-D and 3-D [id number] MRA images of the intra- and extracranial [...] left vertebral artery is not imaged. 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 Mild to moderate left vertebrobasilar confluence, moderate mid basilar artery and severe right and moderate left proximal INFORMATION [employer]IST stenoses are present. There are suspected severe left supraclinoid ICA stenosis with signal loss. There are mild stenoses of the left proximal MCA and TRUDY or igins. No other flow limiting proximal [place] vessels stenosis is seen. Motion [...] severe left supraclinoid ICA and proximal right INFORMATION SPECIALIST stenoses. 4. No hemodynamically significant cervical carotid artery stenosis by NASCET criteria. Signed: Charanjit Ibarra MDReport Verified Date/Time: 01/31/2017 20:36:02 Reading Location: [facility] Radiology ReadingRoom VITAMIN B12 AND [id number] 13:11:00 Test Item Value Reference Range Interpretation Comments VITAMIN B12 (BEAKER) (test code = 551 pg/mL [phone]) FOLATE (BEAKER) (test code = 362) 15.7 ng/mL >=7.0 [id number] 10:22:00 Test Item Value Reference Range Interpretation Comments HOMOCYSTEINE (BEAKER) (test code = 7.0 umol/L 5.1-15.4 642) POCT-GLUCOSE [id number] 08:22:00 Test Item Value Reference Range Interpretation Comments POC-GLUCOSE METER 200 mg/dL 70-110 H TESTED AT [facility] 6720 (BEAKER) (test code = [place]UTU [place] 1538) [address] T4, [id number] 07:04:00 Test Item Value Reference Range Interpretation Comments FREE T4 (BEAKER) (test code = 655) 1.28 ng/dL 0.70-1.48 TSH/FREE T4 IF [id number] 06:34:00 Test Item Value Reference Range Interpretation Comments THYROID STIMULATING HORMONE 0.22 uIU/mL 0.35-4.94 L (BEAKER) (test code = 772) BASIC METABOLIC [id number] 05:53:00 Test Item Value Reference Range Interpretation [...] PATIEN TS. CBC W/PLT COUNT & AUTO [id number] 05:31:00 Test Item Value Reference Range Interpretation [...] KACIE CALDERONGalindo OPERATIVE/PROCEDURE REPORT [facility]ERRY [place] FACILITY: [facility] Billing #: [id number] Room: [facility] MR #: [id number] : 1940 DATE OF PROCEDURE: 08/08/2020 SURGEON: [...] subclavian vein. There we re no complications. EAMON /[id number] 2017-02-06 18:18:00-00:00 [facility]EDURE [facility] EM[facility]ENC[facility] FACILITY: [facility] BILLING #: [id number] ROOM: [address] [place] [address] MR #: [id number] : 1940 DATE OF PROCEDURE: 02/06/2017 SURGEON: [...] in left chest subcutaneous tissue without complications. Demetrio P P Job#: [id number] Doc#: [id number] FN: [id number] cc: Kacie Calderon MD 2017-02-05 21:30:00-00:00 KACIE CALDERON REPORT OF PROCEDURE [facility] EM[facility] FACILITY: [facility] BILLING #: [id number] ROOM: [facility] [id number] MR #: [id number] : 1940 DATE OF PROCEDURE: 02/05/2017 SURGEON: [...] normal. PROCEDURE: The patient brought to the [facility] siology laboratory. The right and left groins [...] transie nt AV block identified with prompt anabaptism of normal conduction and recu rrent of conduction intervals to normal. There was subsequent no inducible tac hycardia and no sustained slow pathway conduction. Procedure was terminate d. No complication. MATT/christian P P Job#: [id number] Doc#: [id number] FN: [id number] cc: Kacie Calderon MD
--- NOTE | 2022-09-05 21:22 | RAD REPORT ---
EXAM DESCRIPTION: CT - Head Brain Wo Cont - 09/05/2022 9:07 pm CLINICAL HISTORY: ams COMPARISON: Head Brain Wo Cont dated 02/14/2017; Head Brain Wo Cont dated 01/30/2017 TECHNIQUE: All CT scans are performed using dose optimization technique as appropriate and may inclu de automated exposure control or mA/KV adjustment according to patient size. FINDINGS: No intracranial hemorrhage, hydrocephalus or extra-axial fluid collection.No areas of brai n edema or evidence of midline shift. Remote left pontine infarct. The paranasal sinuses and mastoids are clear. The calvarium is intact. IMPRESSION: No acute intracranial abnormality. Remote left pontine infarct.
--- NOTE | 2022-09-05 21:54 | RAD REPORT ---
EXAM DESCRIPTION: RAD - Chest Single View - 09/05/2022 9:40 pm CLINICAL HISTORY: ams COMPARISON: Chest Single View dated 08/15/2022; Chest Single View dated 06/22/2022; Chest Single View d ated 05/06/2022; Chest Single View dated 05/05/2022 FINDINGS: Lines: Right IJ approach dialysis catheter Lungs: No evidence of edema or pneumonia. Pleural: No significant pleural effusions or pneumothorax. Cardiac: Cardiomegaly. Pacemaker. Loop recorder. Mediastinum: Within normal limits. Bones: No acute fractures. Other: None IMPRESSION: No acute cardiopulmonary disease.
[2022-09-05 22:02] LABS: Specific Gravity 1.011 (1.005-1.030); Urine Bacteria 20-50 /HPF (<20); Urine Bilirubin NEGATIVE (Negative); Urine Blood 2+ (Negative); Urine Clarity Extremely Turbid (Clear); Urine Color Light-Orange (Yellow); Urine Glucose NEGATIVE (Negative); Urine Protein 2+ (Negative); Urine RBC >50 /HPF (None Seen); Urine Urobilinogen Normal (Normal); Urine WBC Clump Many /HPF (None Seen); Urine pH 5.5 (5.0-7.0)
[2022-09-05 22:14] LABS: Hematocrit 33.7 % (36.0-45.0); Lymphocytes % 8.3 % (15.3-44.8); MCV 97.7 fL (80-100); MPV 7.8 fL (7.6-11.3); Platelets 174 thou/uL (152-406); RBC Red Blood Cell Count 3.45 M/uL (3.86-4.86)
[2022-09-05 22:39] LABS: Albumin 2.3 g/dL (3.4-5.0); Bilirubin Total 0.3 mg/dL (0.2-1.0); Protein, Total 6.5 g/dL (6.4-8.2); Troponin High Sensitivity 34.2 pg/mL (<58.9)
[2022-09-05 22:40] LABS: Magnesium 2.2 mg/dL (1.6-2.4); Potassium 4.7 mEq/L (3.5-5.1)
--- NOTE | 2022-09-05 23:29 | ER ---
Nurse's Notes [facility] Name: Rebecca Hazel Age: 82 yrs Sex: Female : 1940 Arrival Date: 09/05/2022 Time: 20:28 Bed 19 Private MD: Diagnosis: UTI/ Urinary tract infection, site not specified;Altered mental status, unspecified Presentation: 09/05 20:30 Chief complaint: EMS states: 82 year old female coming from [facility]. ha1 The nurse at the facility reports patient has low sodium at 126 and has been alter mental status. 20:30 Coronavirus screen: Vaccine status: Patient reports receiving the 2nd dose of the covid ha1 vaccine. Ebola Screen: No symptoms or risks identified at this time. 20:30 Method Of Arrival: EMS: [facility] ambulance ha1 20:30 Initial Sepsis Screen: Does the patient meet any 2 criteria? No. Patient's initial ha1 sepsis screen is negative. Does the patient have a suspected source of infection? No. Patient's initial sepsis screen is negative. Risk Assessment: Do you want to hurt yourself or someone else? Patient reports no desire to harm self or others. Onset of symptoms was September 03, 2022. 20:30 Acuity: DENNIS 3 ha1 Triage Assessment: 20:30 General: Appears comfortable, Behavior is calm, cooperative. Pain: Denies pain. Neuro: ha1 Level of Consciousness is awake, alert, obeys commands, Oriented to person, place, time. Cardiovascular: Patient's skin is warm and dry. Respiratory: Airway is patent Respiratory effort is even, unlabored, Respiratory pattern is regular, symmetrical. GI: Abdomen is round non-distended, Bowel sounds present X 4 quads. : No signs and/or symptoms were reported regarding the genitourinary system. Derm: Skin is fragile, Wound noted left foot. Musculoskeletal: Historical: - Allergies: 20:30 No Known Allergies; ha1 - PMHx: 20:30 Diabetes - IDDM; Hypertension; Hypothyroidism; stroke with right sided weakness; TIA; ha1 - PSHx: 20:30 pacemaker; ha1 - Immunization history:: Adult Immunizations up to date. - Social history:: Smoking status: unknown. - Family history:: not pertinent. Screenin:28 [facility] ED Fall Risk Assessment (Adult) History of falling in the last 3 months, ha1 including since admission No falls in past 3 months (0 pts) Confusion or Disorientation Yes (5 pts) Intoxicated or Sedated No (0 pts) Impaired Gait Yes (1 pt) Mobility Assist Device Used Yes (1 pt) Altered Elimination Yes (1 pt) Score/Fall Risk Level 3 or more points = High Risk Oriented to surroundings, Maintained a safe environment, Educated pt \T\ family on fall prevention, incl call for assistance when getting out of bed, Hourly rounding (assess needs \T\ fall precautionary measures) done. 21:00 Abuse screen: Denies threats or abuse. Denies injuries from another. Nutritional ha1 screening: No deficits noted. Tuberculosis screening: No symptoms or risk factors identified. Assessment: 21:00 Reassessment: Patient and/or family updated on plan of care and expected duration. Pain ha1 level reassessed. Patient is alert, oriented x 3, equal unlabored respirations, skin warm/dry/pink. 22:00 Reassessment: Patient and/or family updated on plan of care and expected duration. Pain ha1 level reassessed. Patient is alert, oriented x 3, equal unlabored respirations, skin warm/dry/pink. 23:00 Reassessment: Patient and/or family updated on plan of care and expected duration. Pain ha1 level reassessed. Patient is alert, oriented x 3, equal unlabored respirations, skin warm/dry/pink. 09/06 00:00 Reassessment: Patient and/or family updated on plan of care and expected duration. Pain ha1 level reassessed. Patient is alert, oriented x 3, equal unlabored respirations, skin warm/dry/pink. Vital Signs: 09/05 20:30 BP 146 / 70; Pulse 68; Resp 19 S; Temp 98.4; Pulse Ox 95% ; Weight 117.93 kg; Height 5 ha1 ft. 5 in. ; 21:00 BP 139 / 65; Pulse 64; Resp 20 S; Pulse Ox 96% on R/A; ha1 22:00 BP 146 / 72; Pulse 64; Resp 19 S; Pulse Ox 96% on R/A; ha1 23:00 BP 125 / 53; Pulse 65; Resp 20; Pulse Ox 97% on R/A; ha1 09/06 00:00 BP 138 / 61; Pulse 97; Resp 18 S; Pulse Ox 98% on R/A; ha1 09/05 20:30 Body Mass Index 43.27 (117.93 kg, 165.1 cm) ha1 ED Course: 09/05 20:28 Arm band placed on left wrist. ha1 20:28 Patient has correct armband on for positive identification. Placed in gown. Bed in low ha1 position. Call light in reach. Side rails up X2. Adult w/ patient. 20:29 Patient arrived in ED. [id number] 20:30 Saturnino Waters MD is Attending Physician. rt 20:43 Nicole Love, THAIS is Primary Nurse. ha1 20:45 No provider procedures requiring assistance completed. Missed attempt(s): 22 gauge in ha1 left forearm. 20:57 Triage completed. ha1 21:09 CT Head Brain wo Cont In Process Unspecified. EDMS 21:41 Chest Single View XRAY In Process Unspecified. EDMS 21:45 Inserted saline lock: 24 gauge in left ,using aseptic technique. left upper chest. ha1 inserted by THAIS Wheeler 23:29 Caleb Sheikh is Hospitalizing Provider. rt 09/06 01:44 Provided Education on: need fro admission. ha1 Administered Medications: 00:18 Drug: Rocephin - Rocephin (cefTRIAXone) IVPB 2 grams {Note: left upper shoulder.} ha1 Route: IVPB; Infused Over: 30 mins; Site: Other; 00:35 Follow up: Response: No adverse reaction; IV Status: Completed infusion; IV Intake: [id number] 00:21 Drug: NS 0.9% IV 500 ml Route: IV; Rate: bolus; Site: Other; 1 Medication: 01:44 VIS not applicable for this client. ha1 Intake: 00:35 IV: 50ml; Total: 50ml. ha1 Outcome: 09/05 23:29 Decision to Hospitalize by Provider. rt 09/06 01:40 Admitted to Tele accompanied by tech, via stretcher, with chart, Report called to carolyn Burris RN Condition: stable Discharge instructions given to patient, family, Instructed on the need for admit, Demonstrated understanding of instructions. 02:10 Patient left the ED. 1 Signatures: Dispatcher [employer] EDMS Nannette Carson6 Nicole Love RN RN ha1 Saturnino Waters MD MD rt Corrections: (The following items were deleted from the chart) 09/05 20:57 20:15 Chief complaint: EMS states: 82 year old female coming from [address] The nurse at the facility reports ha1
--- NOTE | 2022-09-05 23:29 | EDPHYS ---
Physician Documentation [facility] Name: Rebecca Hazel Age: 82 yrs Sex: Female : 1940 Arrival Date: 09/05/2022 Time: 20:28 Bed 19 Private MD: ED Physician Saturnino Waters HPI: 09/05 23:35 This 82 yrs old Female presents to ER via EMS with complaints of Altered Mental Status. rt 23:35 Patient presents to the ED with altered mental status. The patient reportedly did not rt go to dialysis last Friday, at about half of her dialysis session on Friday. The patient reportedly has been confused, daughter reports hallucinations. Denies other acute complaints at this time, symptoms are moderate severity, no other aggravating or alleviating factors.. Historical: - Allergies: 20:30 No Known Allergies; ha1 - PMHx: 20:30 Diabetes - IDDM; Hypertension; Hypothyroidism; stroke with right sided weakness; TIA; ha1 - PSHx: 20:30 pacemaker; ha1 - Immunization history:: Adult Immunizations up to date. - Social history:: Smoking status: unknown. - Family history:: not pertinent. ROS: 23:35 Constitutional: Negative for fever, chills, and weight loss, Cardiovascular: Negative rt for chest pain, palpitations, and edema, Respiratory: Negative for shortness of breath, cough, wheezing, and pleuritic chest pain, Abdomen/GI: Negative for abdominal pain, nausea, vomiting, diarrhea, and constipation, MS/Extremity: Negative for injury and deformity, Skin: Negative for injury, rash, and discoloration, Psych: Negative for depression, anxiety, suicide ideation, homicidal ideation, and hallucinations. 23:35 Neuro: Positive for altered mental status, Negative for loss of consciousness. Exam: 23:35 Constitutional: This is a well developed, well nourished patient who is awake, alert, rt and in no acute distress. Head/Face: Normocephalic, atraumatic. Chest/axilla: Normal chest wall appearance and motion. Nontender with no deformity. No lesions are appreciated. Cardiovascular: Regular rate and rhythm with a normal S1 and S2. No gallops, murmurs, or rubs. Normal PMI, no JVD. No pulse deficits. Respiratory: Lungs have equal breath sounds bilaterally, clear to auscultation and percussion. No rales, rhonchi or wheezes noted. No increased work of breathing, no retractions or nasal flaring. Abdomen/GI: Soft, non-tender, with normal bowel sounds. No distension or tympany. No guarding or rebound. No evidence of tenderness throughout. Skin: Warm, dry with normal turgor. Normal color with no rashes, no lesions, and no evidence of cellulitis. MS/ Extremity: Pulses equal, no cyanosis. Neurovascular intact. Full, normal range of motion. Neuro: Awake and alert, GCS 15, oriented to person, place, time, and situation. Cranial nerves II-XII grossly intact. Motor strength 5/5 in all extremities. Sensory grossly intact. Cerebellar exam normal. Normal gait. Psych: Awake, alert, with orientation to person, place and time. Behavior, mood, and affect are within normal limits. 09/06 00:42 ECG was reviewed by the Attending Physician. rt Vital Signs: 09/05 20:30 BP 146 / 70; Pulse 68; Resp 19 S; Temp 98.4; Pulse Ox 95% ; Weight 117.93 kg; Height 5 ha1 ft. 5 in. ; 21:00 BP 139 / 65; Pulse 64; Resp 20 S; Pulse Ox 96% on R/A; ha1 22:00 BP 146 / 72; Pulse 64; Resp 19 S; Pulse Ox 96% on R/A; ha1 23:00 BP 125 / 53; Pulse 65; Resp 20; Pulse Ox 97% on R/A; 1 09/06 00:00 BP 138 / 61; Pulse 97; Resp 18 S; Pulse Ox 98% on R/A; 1 09/05 20:30 Body Mass Index 43.27 (117.93 kg, 165.1 cm) ha MDM: 09/05 20:32 Patient medically screened. rt 23:36 Differential Diagnosis: UTI, electrolyte disturbance, uremia,. Data reviewed: vital rt signs, nurses notes. I considered the following discharge prescriptions or medication management in the emergency department Medications were administered in the Emergency Department. See MAR. Independent interpretation of the following test(s) in the Emergency Department CT Scan: My interpretation is No emergency room interpretation of CT scan images. Care significantly affected by the following chronic conditions: Chronic Kidney Disease. Counseling: I had a detailed discussion with the patient and/or guardian regarding: the historical points, exam findings, and any diagnostic results supporting the discharge/admit diagnosis, lab results, radiology results, the need for further work-up and treatment in the hospital. 09/05 20:53 Order name: CBC with Diff; Complete Time: 22:38 rt 09/05 20:53 Order name: CMP; Complete Time: 22:49 rt 09/05 20:53 Order name: Magnesium; Complete Time: 22:49 rt 09/05 20:53 Order name: UAM; Complete Time: 22:09 rt 09/05 20:53 Order name: Troponin High Sensitivity; Complete Time: 22:49 rt 09/05 22:05 Order name: Urine Culture EDMI 09/05 23:56 Order name: Urinalysis w/ reflexes EDMI 09/05 23:56 Order name: Basic Metabolic Panel EDMI 09/05 23:56 Order name: Basic Metabolic Panel EDMI 09/05 23:56 Order name: Basic Metabolic Panel EDMI 09/05 23:56 Order name: Basic Metabolic Panel EDMI 09/05 23:56 Order name: CBC with Automated Diff EDMS 09/05 23:56 Order name: CBC with Automated Diff EDMS 09/05 23:56 Order name: CBC with Automated Diff EDMS 09/05 23:56 Order name: CBC with Automated Diff EDMS 09/05 23:56 Order name: Magnesium EDMS 09/05 23:56 Order name: Magnesium EDMI 09/05 23:56 Order name: Magnesium EDMI 09/05 23:56 Order name: Magnesium EDMI 09/05 20:53 Order name: CT Head Brain wo Cont; Complete Time: 21:58 rt 09/05 20:53 Order name: Chest Single View XRAY; Complete Time: 21:58 rt 09/05 20:53 Order name: EKG; Complete Time: 20:53 rt 09/05 23:47 Order name: CONS Physician Consult EDMI 09/05 23:56 Order name: Renal EDMI 09/05 20:53 Order name: EKG - Nurse/Tech; Complete Time: 23:46 rt 09/05 20:53 Order name: Straight Cath; Complete Time: 22:45 rt EC/28 00:42 Rate is 67 beats/min. Rhythm is regular, 1st Degree Block with Right bundle branch rt block. Right axis deviation noted. WV interval is normal. QRS interval is normal. QT interval is normal. No Q waves. Interpreted by me. Administered Medications: 00:18 Drug: Rocephin - Rocephin (cefTRIAXone) IVPB 2 grams {Note: left upper shoulder.} ha1 Route: IVPB; Infused Over: 30 mins; Site: Other; 00:35 Follow up: Response: No adverse reaction; IV Status: Completed infusion; IV Intake: [id number] 00:21 Drug: NS 0.9% IV 500 ml Route: IV; Rate: bolus; Site: Other; ha1 Disposition Summary: 09/05/22 23:29 Hospitalization Ordered Hospitalization Status: Inpatient Admission rt Provider: Caleb Sheikh rt Location: Telemetry/MedSurg (Inpatient) rt Condition: Stable rt Problem: new rt Symptoms: are unchanged rt Bed/Room Type: Standard rt Room Assignment: 407(09/06/22 00:58) [facility] Diagnosis - UTI/ Urinary tract infection, site not specified rt - Altered mental status, unspecified rt Forms: - Medication Reconciliation Form rt - SBAR form rt Signatures: Dispatcher [employer] EDGermania Castaneda RN RN Frida Nj RN RN eb1 Nicole Love RN RN 1 Saturnino Waters MD MD rt Corrections: (The following items were deleted from the chart) 00:56 09/05 23:29 rt 09/06 00:58 00:56 411 mw [facility]
--- NOTE | 2022-09-05 23:34 | P.HP ---
Certification for Inpatient Patient admitted to: Inpatient With expected LOS: <2 Midnights Patient will require the following post-hospital care: Other Practitioner: I am a practitioner with admitting privileges, knowledge of patient current condition, hospital course, and medical plan of care. Services: Services provided to patient in accordance with Admission requirements found in Title 42 Section 412.3 of the Code of Federal Regulations Patient History Date of Service: 09/06/22 History of Present Illness: 82-year-old female with a past medical history of end-stage renal disease on hemodialysis, history of CVA with right-sided weakness, insulin-dependent diabetes mellitus, hypertension, atrial fibrillation, neuropathy, hypothyroidism, constipation, permanent pacemaker presents to the emergency room with worsening confusion. She is a resident at [facility], [id number] is at bedside is primary historian. Daughter is the director of the [facility]. Reports her [id number] has been more confused, which occurs when her mother has urinary tract infection. She reports dialysis Friday, reports she did not finish her dialysis on Friday due to worsening confusion. Patient reports mild hallucinations, seeing people and things on the wall that are not there. She denies fever, nausea vomiting diarrhea, cough, shortness of breath, abdominal pain chest pain. Laboratory evaluation WBC is elevated at 12.0 with a left shift, anemia at 10.7, 33.7, sodium is 131, BUN 44, potassium normal at 4.9 creatinine is 98 blood glucose 171. UA leukoesterase greater than 500, 20-50 bacteria, 5-10 hyaline cast, 2+ blood, chest x-ray no acute cardiopulmonary disease, mild cardiomegaly, pacemaker, loop recorder. CT of the head IMPRESSION: No acute intracranial abnormality. Remote left pontine infarct [facility] confusion Allergies No Known Allergies Allergy (Verified 08/06/22 09:03) Home Medications: Atorvastatin Calcium [Lipitor] 1 tab PO BEDTIME 05/08/17 Duloxetine [Cymbalta *] 1 cap PO DAILY 05/08/17 Acetaminophen with Codeine [Acetaminophen-Cod #3 Tablet] 1 tab PO Q6HP PRN 03/19/22 Amiodarone HCl [Pacerone] 200 mg PO BID 06/22/22 Ascorbic Acid 500 mg PO BID 06/22/22 Gabapentin 200 mg PO BEDTIME 06/22/22 Levothyroxine [Synthroid*] 125 mcg PO [id number] 06/22/22 Mag Hydroxide 8% [Milk Of Magnesia*] 30 ml PO DAILYPRN PRN 06/22/22 Ondansetron [Zofran (Odt)*] 4 mg PO Q8HP PRN 06/22/22 Zinc Sulfate [Zinc Sulfate*] 220 mg PO DAILY 06/22/22 Collagenase [Santyl Ointment*] 1 appl TOP DAILY #1 tube 06/25/22 Insulin 70/30 NPH/Reg Human [Novolin 70/30*] 10 unit SQ BIDAC #10 ml 06/25/22 Apixaban [Eliquis *] 2.5 mg PO BID 07/22/22 Clopidogrel Bisulfate [Plavix*] 75 mg PO DAILY 07/22/22 Docusate [Colace Cap*] 100 mg PO BID 07/22/22 Metoprolol Succinate 12.5 mg PO DAILY 07/22/22 Nystatin Oint [Mycostatin 100 Mu/Gm Oint*] 1 appl TOP BID 07/22/22 Polyethyl Gly 3350 [Glycolax*] 17 gm PO DAILY 07/22/22 Protein Supplement [Promod] 60 ml PO BID 07/22/22 Apixaban [Eliquis *] 2.5 mg PO BID #60 tab 07/26/22 Smz./Tmp. [Bactrim Ds 800 MG/160 MG*] 0.5 tab PO DAILY 6PM #14 tab 07/26/22 lisinopriL [Prinivil*] 5 mg PO DAILY #30 tab 07/26/22 - Past Medical/Surgical History Diabetic: Yes -: CVA with right-sided weakness -: Insulin dependent type 2 Diabetes -: Hypertension -: Atrial Fibrillation -: NEUROPATHY -: HLD -: HYPOTHYROIDISM -: ESRD on HD -: chronic osteomyelitis with non-healing ulcer right great toe s/p fall(2017) -: afib vs supraventricular tachycardia -: thyroidectomy -: cataract sx -: hysterectomy -: pacemaker Psychosocial/ Personal History: [facility] - Family History Mother -: Hypertension Father -: Diabetes - Social History Alcohol use: No CD- Drugs: No Caffeine use: No Review of Systems 10-point ROS is otherwise unremarkable Physical Examination - Physical Exam General: Alert, In no apparent distress, Oriented x2, Other (Forgetful) HEENT: Atraumatic, Normocephalic Neck: 2+ carotid pulse no bruit, JVD not distended Respiratory: Crackles/rales Cardiovascular: No edema, Normal pulses, Regular rate/rhythm Capillary refill: <2 Seconds Gastrointestinal: Normal bowel sounds, Soft and benign, Non-distended Musculoskeletal: No clubbing, No swelling Integumentary: Other (Sacral ulcer, skin tear on the right arm,) Neurological: Normal speech, Normal affect - Studies Laboratory Data (last 24 hrs) 09/05/22 22:00: Sodium 128 L, Potassium 4.7, BUN 44 H, Creatinine 3.98 H, Glucose 171 H, Magnesium 2.2, Total Bilirubin 0.3, AST 19, ALT 15, Alkaline Phosphatase 95 09/05/22 22:00: WBC 12.00 H, Hgb 10.7 L, Hct 33.7 L, Plt Count 174 Assessment and Plan - Plan Assessment Plan Metabolic encephalopathy likely due to uremia, missing dialysis versus urinary tract infection Acute cystitis Hyponatremia Microcytic anemia Insulin-dependent diabetes mellitus Sacral ulcer, skin tear on the right arm, End-stage renal disease on hemodialysis History of May for atrial fibrillation Essential hypertension Hyperlipidemia Hypothyroidism DVT prophylaxis Assessment Plan Metabolic encephalopathy likely due to uremia, missing dialysis versus urinary tract infection Fall precautions, supportive care, Patient reports mild hallucinations, seeing people and things on the wall that are not there. CT of the head IMPRESSION: No acute intracranial abnormality. Remote left pontine infarct [facility] confusion Acute cystitis UA leukoesterase greater than 500, 20-50 bacteria, 5-10 hyaline cast, 2+ blood, IV antibiotics ceftriaxone, gentle IV fluids Infectious disease consult, follow cultures, trend WBCs Laboratory evaluation WBC is elevated at 12.0 with a left shift, anemia at 10.7, 33.7, Hyponatremia 130 1 repeat CMP in the a.m. Microcytic anemia anemia at 10.7, 33.7, Insulin-dependent diabetes mellitus Accu-Chek ACHS, sliding scale insulin, resume home insulin Sacral ulcer, skin tear on the right arm Wound care consult End-stage renal disease on hemodialysis BUN 44, potassium normal at 4.9 creatinine is 98 blood glucose 171. chest x-ray no acute cardiopulmonary disease, mild cardiomegaly, pacemaker, loop recorder. Nephrology consult, IO Daily weight Friday, History of May for atrial fibrillation Essential hypertension Hyperlipidemia Hypothyroidism Resume appropriate home medications DVT prophylaxis Renal diet Full code Discharge Plan: Care Home Plan to discharge in: 48 Hours - Advance Directives Does patient have a Living Will: No Does patient have a Durable POA for Healthcare: No - Code Status/Comfort Care Code Status: Full Code Physician Review: Patient Assessed, Agree with Above Assessment and Plan Time Spent Managing Pts Care (In Minutes): 50
[2022-09-05] MEDS ORDERED: ONDANSETRON 4 MG/2 ML VIAL IV PRN (23:54)
[2022-09-06] MEDS ORDERED: NA CHLORIDE 0.9% 50 ML ONE (00:52)
[2022-09-06] MEDS ORDERED: NA CHLORIDE 0.9% 500 ML ONE (00:52)
[2022-09-06] MEDS ORDERED: CEFTRIAXONE 1000 MG/VIAL ONE (00:52)
[2022-09-06] MEDS ORDERED: NA CHLORIDE 0.9% 500 ML IV ONE (01:44)
[2022-09-06 03:41] VITALS: BMI 32.8
[2022-09-06 03:52] LABS: Absolute Lymphocytes (CBC) 1.3 K/uL (0.7-4.9); Hematocrit 30.7 % (36.0-45.0); Lymphocytes % 12.6 % (15.3-44.8); MCV 96.3 fL (80-100); MPV 7.7 fL (7.6-11.3); Platelets 178 thou/uL (152-406); RBC Red Blood Cell Count 3.19 M/uL (3.86-4.86)
[2022-09-06 04:05] LABS: Magnesium 2.1 mg/dL (1.6-2.4)
[2022-09-06] MEDS: CEFTRIAXONE 1,000 MG in NA CHLORIDE 0.9% 50 ML IVPB SCH (08:53)
--- NOTE | 2022-09-06 09:16 | P.CNS ---
Date of Consult: 09/06/22 Reason for Consult: Cystitis Chief Complaint: altered mental status History of Present Illness: Patient is an 82 year old female with a past medical history of end stage renal disease, history of CVA with right sided weakness, diabetes, hypertension, atrial fibrillation who presented to the ED with complaints of altered mental status. Of note, patient has been hospitalized multiple times for wound infection and urine infections over the past few months. Urinalysis suggestive of UTI, urine culture obtained and ID was consulted. Allergies No Known Allergies Allergy (Verified 08/06/22 09:03) Home medications list reviewed: Yes Home Medications: Atorvastatin Calcium [Lipitor] 1 tab PO BEDTIME 05/08/17 Duloxetine [Cymbalta *] 1 cap PO DAILY 05/08/17 Acetaminophen with Codeine [Acetaminophen-Cod #3 Tablet] 1 tab PO Q6HP PRN 03/19/22 Amiodarone HCl [Pacerone] 200 mg PO BID 06/22/22 Ascorbic Acid 500 mg PO BID 06/22/22 Gabapentin 200 mg PO BEDTIME 06/22/22 Levothyroxine [Synthroid*] 125 mcg PO [id number] 06/22/22 Mag Hydroxide 8% [Milk Of Magnesia*] 30 ml PO DAILYPRN PRN 06/22/22 Ondansetron [Zofran (Odt)*] 4 mg PO Q8HP PRN 06/22/22 Zinc Sulfate [Zinc Sulfate*] 220 mg PO DAILY 06/22/22 Collagenase [Santyl Ointment*] 1 appl TOP DAILY #1 tube 06/25/22 Clopidogrel Bisulfate [Plavix*] 75 mg PO DAILY 07/22/22 Docusate [Colace Cap*] 100 mg PO SEECOM 07/22/22 Metoprolol Succinate 12.5 mg PO DAILY 07/22/22 Polyethyl Gly 3350 [Glycolax*] 17 gm PO DAILY 07/22/22 Protein Supplement [Promod] 60 ml PO BID 07/22/22 lisinopriL [Prinivil*] 5 mg PO DAILY #30 tab 07/26/22 Apixaban [Eliquis *] 2.5 mg PO BID 09/06/22 Insulin NPH Hum/Reg Insulin Hm [Humulin 70/30 Kwikpen] 10 unit SQ BID 09/06/22 Lactulose [Enulose] 10 gm PO SEECOM 09/06/22 Phenol [Chloraseptic] 5 spray PO Q2HP PRN 09/06/22 Saccharomyces Boulardii [Daily Probiotic] 1 cap PO BID 09/06/22 guaiFENesin [Stephani-Tussin] 10 ml PO Q6HP PRN 09/06/22 levoFLOXacin [Levaquin] 250 mg PO T,TH,S 09/06/22 - Past Medical/Surgical History Diabetic: Yes -: CVA with right-sided weakness -: Insulin dependent type 2 Diabetes -: Hypertension -: Atrial Fibrillation -: NEUROPATHY -: HLD -: HYPOTHYROIDISM -: ESRD on HD -: chronic osteomyelitis with non-healing ulcer right great toe s/p fall(2017) -: afib vs supraventricular tachycardia -: thyroidectomy -: cataract sx -: hysterectomy -: pacemaker -: Left great toe amputation Psychosocial/ Personal History: fdc - Family History Mother Medical History: Hypertension Father Medical History: Diabetes - Social History Smoking Status: Unknown if ever smoked Alcohol use: No CD- Drugs: No Caffeine use: No Place of Residence: [facility] Review of Systems Respiratory: Cough Musculoskeletal: Foot Pain (left foot), Other (sacrum/buttock pain) Neurological: Other (right sided weakness) Physical Examination Temp Pulse Resp BP Pulse Ox 97.1 F 61 17 142/63 H 98 09/06/22 08:00 09/06/22 08:00 09/06/22 08:00 09/06/22 08:00 09/06/22 08:00 General: Alert, In no apparent distress, Oriented x3 HEENT: Atraumatic, Normocephalic Neck: Supple, JVD not distended Respiratory: Normal air movement, Crackles/rales, Other (room air) Cardiovascular: No edema, Abnormal pulses (weak DP and PT pulses) Gastrointestinal: Normal bowel sounds, Soft and benign Musculoskeletal: No clubbing, No swelling, Other (left great toe amputation ) Neurological: Normal speech, Normal tone, Normal affect Laboratory Data (last 24 hrs) 09/05/22 22:00: Sodium 128 L, Potassium 4.7, BUN 44 H, Creatinine 3.98 H, Glucose 171 H, Magnesium 2.2, Total Bilirubin 0.3, AST 19, ALT 15, Alkaline Phosphatase 95 09/05/22 22:00: WBC 12.00 H, Hgb 10.7 L, Hct 33.7 L, Plt Count 174 Imagings Data: - Reviewed Conclusions/Impression: Problem List ESRD on HD Diabetes Mellitus II Atrial Fibrillation Hypothyroidism Hx CVA with Right Sided Weakness Hypertension Hyperlipidemia Pressure Ulcer Sacrum Urinary Tract Infection Moderate PCM Anemia of Chronic Disease Urinary Tract Infection, Acute Cystitis - Urinalysis 09/05: LE 500, RBC >50, WBC >50, Many WBC clumps, Bacteria 20-50, Hyaline casts 5-10, protein 2+ - Urine culture 09/05: Pending - History of recurrent Melba urinary infections this year (03/28, 05/05 and 06/23) - Currently on Rocephin IV (09/06-) Sacrum Pressure Ulcer Stage Left First Toe Amputation Site Wound Left Fourth Toe Wound - History of multi-drug resistant infection of wound - 07/22: Enterobacter cloacae , Pseudomonas aeruginosa , Acinetobacter dalton/haem , Enterococcus faecalis - Wound culture left toe 09/06: Pending - Wound culture sacrum 09/06: Pending Patient sees wound care as outpatient regularly. Leukocytosis improved (WBC 12 -> 10.3) Afebrile Recommendations Patient has been hospitalized multiple times over the past few months. History of MDR infections. Continue current antibiotic for now. Follow up with urine and wound culture results and adjust antibiotics as appropriate. Supplemental nutrition as needed.
[2022-09-06] MEDS: ACETAMINOPHEN 500 MG TAB PO PRN (10:19)
--- NOTE | 2022-09-06 13:23 | EKG ---
Test Date: 2022-09-05 Test Time: 23:43:24 Spring Tester: CLAY MEASUREMENT RESULTS: Intervals: Rate: 67 VA: 224 QRSD: 150 QT: 458 QTc: 483 [place]: P: 85 VA: 224 QRS: -39 T: 62 INTERPRETIVE STATEMENTS: Sinus rhythm with 1st degree AV block Left axis deviation Right bundle branch block Abnormal ECG Compared to ECG 08/15/2022 15:43:32 First degree AV block now present Left-axis deviation now present Left anterior fascicular block no longer present Bifascicular block no longer present Electronically Signed On 09-06-22 13:22:45 CDT by Lui Tomlinson
--- NOTE | 2022-09-06 15:06 | P.CNS ---
Date of Consult: 09/06/22 Reason for Consult: ESRD Requesting Physician: marli weaver Chief Complaint: altered mental status History of Present Illness: 82F from SNF w/ PMHx of ESRD on outpt HD TTS at [facility], EDW 95 kgs, HD access: R TDC, history of CVA with right-sided weakness, insulin-dependent diabetes mellitus, hypertension, atrial fibrillation, neuropathy, hypothyroidism, constipation, permanent pacemaker, who p/w AMS. Urinalysis showed UTI. She received HD yesterday. Allergies No Known Allergies Allergy (Verified 08/06/22 09:03) Home Medications: RX: Atorvastatin Calcium [Lipitor] 1 tab PO BEDTIME 05/08/17 RX: Duloxetine [Cymbalta *] 1 cap PO DAILY 05/08/17 RX: Acetaminophen with Codeine [Acetaminophen-Cod #3 Tablet] 1 tab PO Q6HP PRN 03/19/22 RX: Amiodarone HCl [Pacerone] 200 mg PO BID 06/22/22 RX: Ascorbic Acid 500 mg PO BID 06/22/22 RX: Gabapentin 200 mg PO BEDTIME 06/22/22 RX: Levothyroxine [Synthroid*] 125 mcg PO [id number] 06/22/22 RX: Mag Hydroxide 8% [Milk Of Magnesia*] 30 ml PO DAILYPRN PRN 06/22/22 RX: Ondansetron [Zofran (Odt)*] 4 mg PO Q8HP PRN 06/22/22 RX: Zinc Sulfate [Zinc Sulfate*] 220 mg PO DAILY 06/22/22 RX: Collagenase [Santyl Ointment*] 1 appl TOP DAILY #1 tube 06/25/22 RX: Clopidogrel Bisulfate [Plavix*] 75 mg PO DAILY 07/22/22 RX: Docusate [Colace Cap*] 100 mg PO SEECOM 07/22/22 RX: Metoprolol Succinate 12.5 mg PO DAILY 07/22/22 RX: Polyethyl Gly 3350 [Glycolax*] 17 gm PO DAILY 07/22/22 RX: Protein Supplement [Promod] 60 ml PO BID 07/22/22 RX: lisinopriL [Prinivil*] 5 mg PO DAILY #30 tab 07/26/22 Insulin NPH Hum/Reg Insulin Hm [Humulin 70/30 Kwikpen] 10 unit SQ BID 09/06/22 Lactulose [Enulose] 10 gm PO SEECOM 09/06/22 Phenol [Chloraseptic] 5 spray PO Q2HP PRN 09/06/22 RX: Apixaban [Eliquis *] 2.5 mg PO BID 09/06/22 Saccharomyces Boulardii [Daily Probiotic] 1 cap PO BID 09/06/22 guaiFENesin [Stephani-Tussin] 10 ml PO Q6HP PRN 09/06/22 levoFLOXacin [Levaquin] 250 mg PO T,,S 09/06/22 - Past Medical/Surgical History Diabetic: Yes -: CVA with right-sided weakness -: Insulin dependent type 2 Diabetes -: Hypertension -: Atrial Fibrillation -: NEUROPATHY -: HLD -: HYPOTHYROIDISM -: ESRD on HD -: chronic osteomyelitis with non-healing ulcer right great toe s/p fall(2017) -: afib vs supraventricular tachycardia -: thyroidectomy -: cataract sx -: hysterectomy -: pacemaker -: Left great toe amputation Psychosocial/ Personal History: shelter - Family History Mother Medical History: Hypertension Father Medical History: Diabetes - Social History Smoking Status: Unknown if ever smoked Alcohol use: No CD- Drugs: No Caffeine use: No Place of Residence: [facility] Review of Systems Other: Unable to obtain d/t AMS Physical Examination Temp Pulse Resp BP Pulse Ox 97.3 F 58 17 122/53 L 98 09/06/22 12:00 09/06/22 12:00 09/06/22 12:00 09/06/22 12:00 09/06/22 12:00 General: Other (chronically ill-appearing) HEENT: Atraumatic, Normocephalic Neck: Supple Respiratory: Other (Symmetric chest expansion) Cardiovascular: No rubs, No murmurs Gastrointestinal: Soft and benign, No guarding Musculoskeletal: No clubbing Neurological: Other (nonfocal) Urinary: Other (no bladder distention) External genitalia: Deferred Rectal: Deferred Laboratory Data (last 24 hrs) 09/05/22 22:00: Sodium 128 L, Potassium 4.7, BUN 44 H, Creatinine 3.98 H, Glucose 171 H, Magnesium 2.2, Total Bilirubin 0.3, AST 19, ALT 15, Alkaline Phosphatase 95 09/05/22 22:00: WBC 12.00 H, Hgb 10.7 L, Hct 33.7 L, Plt Count 174 Conclusions/Impression: # ESRD on HD TTS Received HD yesterday Next HD tomorrow # PAUL sexton 2/2 UTI Empiric abx F/u cultures # Hyponatremia Improved, further correction via HD # Hypertension Continue current medication regimen # Anemia Monitor CBC # Renal osteodystrophy Monitor serum calcium and phosphorus # DM2 Management per primary team # Sacral ulcer, skin tear on right arm Wound care
--- NOTE | 2022-09-06 16:53 | P.PN ---
Subjective Date of Service: 09/06/22 Chief Complaint: altered mental status Patient has no new complaint. No agitation reported. She has been afebrile. Physical Examination - Vital Signs Temperature: 97.3 F Blood Pressure: 122/53 Pulse: 58 Respirations: 17 Pulse Ox (%): 98 - Studies Laboratory Data (last 24 hrs) WBC 12.00 thou/uL (4.3-10.9) H 09/05/22 22:00 Hgb 10.7 g/dL (12.0-15.0) L 09/05/22 22:00 Hct 33.7 % (36.0-45.0) L 09/05/22 22:00 Plt Count 174 thou/uL (152-406) 09/05/22 22:00 Sodium 128 mEq/L (136-145) L 09/05/22 22:00 Potassium 4.7 mEq/L (3.5-5.1) 09/05/22 22:00 BUN 44 mg/dL (7-18) H 09/05/22 22:00 Creatinine 3.98 mg/dL (0.55-1.02) H 09/05/22 22:00 Glucose 171 mg/dL (74-106) H 09/05/22 22:00 Magnesium 2.2 mg/dL (1.6-2.4) 09/05/22 22:00 Total Bilirubin 0.3 mg/dL (0.2-1.0) 09/05/22 22:00 AST 19 U/L (15-37) 09/05/22 22:00 ALT 15 U/L (13-56) 09/05/22 22:00 Alkaline Phosphatase 95 U/L (45-117) 09/05/22 22:00 Assessment And Plan - Plan Physical Exam Neck: 2+ carotid pulse no bruit, JVD not distended Respiratory: Crackles/rales Cardiovascular: No edema, Normal pulses, Regular rate/rhythm Capillary refill: <2 Seconds Gastrointestinal: Normal bowel sounds, Soft and benign, Non-distended Musculoskeletal: No clubbing, No swelling Integumentary: Sacral ulcer, skin tear on the right arm, left great toe amputation wound dressed Neurological: Normal speech, No focal motor deficit. Diagnosis Metabolic encephalopathy likely due to uremia, missing dialysis versus urinary tract infection Acute cystitis Hyponatremia Microcytic anemia Insulin-dependent diabetes mellitus Sacral ulcer. End-stage renal disease on hemodialysis Chronic atrial fibrillation Essential hypertension Hyperlipidemia Hypothyroidism Assessment Plan Metabolic encephalopathy likely due to uremia versus urinary tract infection Fall precautions, supportive care, CT of the head IMPRESSION: No acute intracranial abnormality. Remote left pontine infarct correction confusion Acute cystitis UA leukoesterase greater than 500, 20-50 bacteria, 5-10 hyaline cast, 2+ blood, Continue IV ceftriaxone. Infectious disease input appreciated. Laboratory evaluation WBC is elevated at 12.0 with a left shift, anemia at 10.7, 33.7. Follow cultures. Hyponatremia 130 1 repeat CMP in the a.m. Management with hemodialysis Anemia of kidney disease anemia at 10.7, 33.7. Stable. Insulin-dependent diabetes mellitus Accu-Chek ACHS, sliding scale insulin, resume home insulin Sacral ulcer, skin tear on the right arm Local wound care End-stage renal disease on hemodialysis BUN 44, potassium normal at 4.9 creatinine is 98 blood glucose 171. chest x-ray no acute cardiopulmonary disease. Nephrology to follow for routine hemodialysis. History of May for atrial fibrillation Essential hypertension Hyperlipidemia Hypothyroidism Continue home medications. DVT prophylaxis: Heparin subQ
[2022-09-06] MEDS ORDERED: MAGNESIUM HYDROXIDE 8% 30 ML PO PRN (16:57)
[2022-09-06] MEDS: AMINO ACIDS/PROTEIN HYDROLYS 30 ML LIQUID.PKT PO SCH (21:00)
[2022-09-06] MEDS: SACCHAROMYCES BOULARDII 250 MG PO SCH (21:00)
[2022-09-06] MEDS ORDERED: HOME MED 1 EA UNK (Insulin Nph Hum/Reg Insulin Hm [Humulin 70/30 Kwikpen] 100 UNIT/ML Insu SQ SCH (21:00)
[2022-09-06] MEDS: HOME MED 1 EA UNK (Protein Supplement [Promod] 946 ML Liquid) PO SCH (21:00)
[2022-09-06] MEDS: APIXABAN 2.5 MG TABLET PO SCH (21:09)
[2022-09-06] MEDS: ASCORBIC ACID 500 MG TABLET PO SCH (21:09)
[2022-09-06] MEDS: ATORVASTATIN 80 MG TAB PO SCH (21:09)
[2022-09-06] MEDS: DOCUSATE NA 100 MG CAP PO SCH (21:09)
[2022-09-06] MEDS: GABAPENTIN 100 MG CAP PO SCH (21:09)
[2022-09-06] MEDS: AMIODARONE HCL 200 MG TAB PO SCH (21:09)
[2022-09-06] MEDS: INSULIN 70/30 100 UNITS/ML SQ SCH (21:10)
[2022-09-07 04:18] LABS: Absolute Lymphocytes (CBC) 1.4 K/uL (0.7-4.9); Hematocrit 29.2 % (36.0-45.0); Lymphocytes % 14.3 % (15.3-44.8); MCV 96.8 fL (80-100); MPV 7.2 fL (7.6-11.3); Platelets 164 thou/uL (152-406); RBC Red Blood Cell Count 3.02 M/uL (3.86-4.86)
[2022-09-07 04:41] LABS: Magnesium 2.3 mg/dL (1.6-2.4); Potassium 4.1 mEq/L (3.5-5.1)
[2022-09-07] MEDS: LEVOTHYROXINE SOD 0.125 MG TAB PO SCH (06:00)
[2022-09-07] MEDS: SACCHAROMYCES BOULARDII 250 MG PO SCH ×2 (09:00→21:00)
[2022-09-07] MEDS: METOPROLOL XL 25 MG TAB PO SCH (09:00)
[2022-09-07] MEDS: lisinopriL 5 MG TAB PO SCH (09:00)
[2022-09-07] MEDS: HOME MED 1 EA UNK (Protein Supplement [Promod] 946 ML Liquid) PO SCH ×2 (09:00→21:00)
[2022-09-07] MEDS: INSULIN 70/30 100 UNITS/ML SQ SCH ×2 (09:00→20:43)
[2022-09-07] MEDS: HOME MED [COLLAGENASE 30 GM OINTMENT] TOP SCH (09:00)
[2022-09-07] MEDS: AMINO ACIDS/PROTEIN HYDROLYS 30 ML LIQUID.PKT PO SCH ×2 (09:00→20:24)
[2022-09-07] MEDS: CLOPIDOGREL 75 MG TABLET PO SCH (09:52)
[2022-09-07] MEDS: APIXABAN 2.5 MG TABLET PO SCH ×2 (09:52→20:16)
[2022-09-07] MEDS: ZINC SULFATE 220 MG CAP PO SCH (09:52)
[2022-09-07] MEDS: ASCORBIC ACID 500 MG TABLET PO SCH ×2 (09:52→20:17)
[2022-09-07] MEDS: DULOXETINE 20 MG CAP PO SCH (09:52)
[2022-09-07] MEDS: AMIODARONE HCL 200 MG TAB PO SCH ×2 (09:53→20:16)
[2022-09-07] MEDS: POLYETHYL GLY 3350 17 GM/DOSE PO SCH (09:53)
[2022-09-07] MEDS: COLLAGENASE 30 GM OINTMENT TOP SCH (09:55)
[2022-09-07] MEDS: CEFTRIAXONE 1,000 MG in NA CHLORIDE 0.9% 50 ML IVPB SCH (09:55)
--- NOTE | 2022-09-07 14:16 | P.PN ---
Subjective Date of Service: 09/07/22 Chief Complaint: altered mental status Patient has no new complaint. No agitation reported. She is awake and alert today. She is tolerating her diet. Physical Examination - Vital Signs Temperature: 96.8 F Blood Pressure: 143/52 Pulse: 56 Respirations: 18 Pulse Ox (%): 96 Assessment And Plan - Plan Physical Exam Neck: JVD not distended Respiratory: Crackles/rales Cardiovascular: No edema, Normal pulses, Regular rate/rhythm Gastrointestinal: Normal bowel sounds, Soft and benign, Non-distended Musculoskeletal: No clubbing, No swelling Integumentary: Sacral ulcer, skin tear on the right arm, left great toe amputation wound dressed Neurological: Normal speech, No focal motor deficit. Diagnosis Metabolic encephalopathy likely due to uremia, missing dialysis versus urinary tract infection Acute cystitis Hyponatremia Microcytic anemia Insulin-dependent diabetes mellitus Sacral ulcer. End-stage renal disease on hemodialysis Chronic atrial fibrillation Essential hypertension Hyperlipidemia Hypothyroidism Assessment Plan Metabolic encephalopathy likely due to uremia versus urinary tract infection AMS resolved Fall precautions, supportive care, CT of the head IMPRESSION: No acute intracranial abnormality. Remote left pont ine infarct retirement confusion Acute cystitis Urine culture is growing gram-negative rods. Continue IV ceftriaxone. Infectious disease is following. Follow cultures. Hyponatremia Management with hemodialysis Anemia of kidney disease Stable. Insulin-dependent diabetes mellitus Accu-Chek ACHS, sliding scale insulin, continue home insulin regimen. Sacral ulcer, skin tear on the right arm Local wound care End-stage renal disease on hemodialysis Nephrology to follow for routine hemodialysis. History of May for atrial fibrillation Essential hypertension Hyperlipidemia Hypothyroidism Continue home medications. DVT prophylaxis: Heparin subQ
[2022-09-07] MEDS ORDERED: MANNITOL 25% 12.5 GM/50 ML VIAL IV PRN (14:54)
--- NOTE | 2022-09-07 14:56 | P.PN ---
Subjective Date of Service: 09/07/22 Chief Complaint: altered mental status 82F from SNF w/ PMHx of ESRD on outpt HD TTS at [facility], EDW 95 kgs, HD access: R TDC, history of CVA with right-sided weakness, insulin-dependent diabetes mellitus, hypertension, atrial fibrillation, neuropathy, hypothyr oidism, constipation, permanent pacemaker, who p/w AMS. Urinalysis showed UTI. She received HD yesterday. Today sen and examind during HD Aleer Cont ABx F/U cultures Physical exam General: Awake, NAD , Obese HEENT: Atraumatic, Normocephalic Neck: Supple, no elevated JVD Respiratory: CTAB Cardiovascular: No rubs, No murmurs Gastrointestinal: Soft and benign, Non-distended Musculoskeletal: foot drssing # ESRD on HD TTS HD TTSat renal dose meds # AMS likley 2/2 UTI Empiric abx F/u cultures # Hyponatremia Improved, further correction via HD # Hypertension Continue current medication regimen # Anemia Monitor CBC # Renal osteodystrophy Monitor serum calcium and phosphorus # DM2 Management per primary team # Sacral ulcer, skin tear on right arm Wound care Total time spent 55 minutes including documentation, reviewing labs , placing orders and discussing plan of care with medical staff Physical Examination - Vital Signs Temperature: 96.8 F Blood Pressure: 143/52 Pulse: 56 Respirations: 18 Pulse Ox (%): 96 Assessment And Plan Physician Review: Patient Assessed, Agree with Above Assessment and Plan
[2022-09-07] MEDS: ATORVASTATIN 80 MG TAB PO SCH (20:16)
[2022-09-07] MEDS: GABAPENTIN 100 MG CAP PO SCH (20:17)
[2022-09-07] MEDS: ACETAMINOPHEN 500 MG TAB PO PRN (20:35)
[2022-09-08 03:24] LABS: Hematocrit 29.2 % (36.0-45.0); Lymphocytes % 9.7 % (15.3-44.8); MCV 95.9 fL (80-100); MPV 7.5 fL (7.6-11.3); Platelets 188 thou/uL (152-406); RBC Red Blood Cell Count 3.05 M/uL (3.86-4.86)
[2022-09-08 03:31] LABS: Magnesium 2.1 mg/dL (1.6-2.4)
[2022-09-08] MEDS: LEVOTHYROXINE SOD 0.125 MG TAB PO SCH (06:08)
[2022-09-08] MEDS: HOME MED 1 EA UNK (Protein Supplement [Promod] 946 ML Liquid) PO SCH ×2 (09:00→19:36)
[2022-09-08] MEDS: AMINO ACIDS/PROTEIN HYDROLYS 30 ML LIQUID.PKT PO SCH ×2 (09:00→19:36)
[2022-09-08] MEDS: HOME MED [COLLAGENASE 30 GM OINTMENT] TOP SCH (09:00)
[2022-09-08] MEDS: ZINC SULFATE 220 MG CAP PO SCH (09:05)
[2022-09-08] MEDS: ASCORBIC ACID 500 MG TABLET PO SCH ×2 (09:05→19:34)
[2022-09-08] MEDS: DOCUSATE NA 100 MG CAP PO SCH ×2 (09:05→19:35)
[2022-09-08] MEDS: METOPROLOL XL 25 MG TAB PO SCH (09:05)
[2022-09-08] MEDS: AMIODARONE HCL 200 MG TAB PO SCH ×2 (09:06→19:37)
[2022-09-08] MEDS: CLOPIDOGREL 75 MG TABLET PO SCH (09:06)
[2022-09-08] MEDS: APIXABAN 2.5 MG TABLET PO SCH ×2 (09:06→19:35)
[2022-09-08] MEDS: lisinopriL 5 MG TAB PO SCH (09:06)
[2022-09-08] MEDS: DULOXETINE 20 MG CAP PO SCH (09:06)
[2022-09-08] MEDS: INSULIN 70/30 100 UNITS/ML SQ SCH ×2 (09:06→20:00)
[2022-09-08] MEDS: CEFTRIAXONE 1,000 MG in NA CHLORIDE 0.9% 50 ML IVPB SCH (09:07)
[2022-09-08] MEDS: COLLAGENASE 30 GM OINTMENT TOP SCH (09:07)
[2022-09-08] MEDS: POLYETHYL GLY 3350 17 GM/DOSE PO SCH (09:08)
--- NOTE | 2022-09-08 12:40 | P.PN ---
Subjective Date of Service: 09/08/22 Chief Complaint: altered mental status Patient has no new complaint. No agitation She is alert and oriented. She is tolerating her diet. Physical Examination - Vital Signs Temperature: 97 F Blood Pressure: 147/69 Pulse: 60 Respirations: 18 Pulse Ox (%): 98 - Studies Microbiology Data (last 24 hrs): 09/05/22 21:39 Clean Catch Urine [place] Count - Final >100,000 CFU/ML. 09/05/22 21:39 Clean Catch Urine - Final Proteus Mirabilis Assessment And Plan - Plan Physical Exam Neck: JVD not distended Respiratory: Crackles/rales Cardiovascular: No edema, Normal pulses, Regular rate/rhythm Gastrointestinal: Normal bowel sounds, Soft and benign, Non-distended Musculoskeletal: No clubbing, No swelling Integumentary: Sacral ulcer, skin tear on the right arm, left great toe amputation wound dressed Neurological: Normal speech, No focal motor deficit. Diagnosis Metabolic encephalopathy likely due to uremia, missing dialysis versus urinary tract infection Acute cystitis Hyponatremia Microcytic anemia Insulin-dependent diabetes mellitus Sacral ulcer. End-stage renal disease on hemodialysis Chronic atrial fibrillation Essential hypertension Hyperlipidemia Hypothyroidism Assessment Plan Metabolic encephalopathy likely due to uremia versus urinary tract infection AMS resolved Fall precautions, supportive care, Acute cystitis Urine culture is growing Proteus Continue IV ceftriaxone. Infectious disease is following. Hyponatremia Management with hemodialysis Anemia of kidney disease Stable. Insulin-dependent diabetes mellitus Accu-Chek ACHS, sliding scale insulin, continue home insulin regimen. Sacral ulcer, skin tear on the right arm Superficial wound culture isolated ESBL Klebsiella and Acinetobacter Local wound care. Infectious disease to follow. End-stage renal disease on hemodialysis Nephrology to follow for routine hemodialysis. History of May for atrial fibrillation Essential hypertension Hyperlipidemia Hypothyroidism Continue home medications. DVT prophylaxis: Heparin subQ
--- NOTE | 2022-09-08 13:54 | P.PN ---
Subjective Date of Service: 09/08/22 Chief Complaint: altered mental status 82F from SNF w/ PMHx of ESRD on outpt HD TTS at [facility], EDW 95 kgs, HD access: R TDC, history of CVA with right-sided weakness, insulin-dependent diabetes mellitus, hypertension, atrial fibrillation, neuropathy, hypothyr oidism, constipation, permanent pacemaker, who p/w AMS. Urinalysis showed UTI. She received HD yesterday. Today sen and examined during HD denied Nausea, vomiting or iarrhea Cont ABx ID follow up next HD on Friday Physical exam General: Awake, NAD , Obese HEENT: Atraumatic, Normocephalic Neck: Supple, no elevated JVD Respiratory: CTAB Cardiovascular: No rubs, No murmurs Gastrointestinal: Soft and benign, Non-distended Musculoskeletal: foot dressing A/P # ESRD on HD TTS HD TTSat renal dose meds # AMS likley 2/2 UTI Empiric abx F/u cultures # Hyponatremia Improved, further correction via HD # Hypertension Continue current medication regimen # Anemia Monitor CBC # Renal osteodystrophy Monitor serum calcium and phosphorus # DM2 Management per primary team # Foot Wound Cont wound care ID evaluation Total time spent 55 minutes including documentation, reviewing labs , placing orders and discussing plan of care with medical staff Physical Examination - Vital Signs Temperature: 97 F Blood Pressure: 147/69 Pulse: 60 Respirations: 18 Pulse Ox (%): 98 - Studies Microbiology Data (last 24 hrs): 09/05/22 21:39 Clean Catch Urine [place] Count - Final >100,000 CFU/ML. 09/05/22 21:39 Clean Catch Urine - Final Proteus Mirabilis Assessment And Plan Physician Review: Patient Assessed, Agree with Above Assessment and Plan
[2022-09-08] MEDS: ATORVASTATIN 80 MG TAB PO SCH (19:35)
[2022-09-08] MEDS: GABAPENTIN 100 MG CAP PO SCH (19:35)
[2022-09-09] MEDS: LEVOTHYROXINE SOD 0.125 MG TAB PO SCH (05:59)
[2022-09-09] MEDS: DOCUSATE NA 100 MG CAP PO SCH ×2 (09:00→21:44)
[2022-09-09] MEDS: HOME MED [COLLAGENASE 30 GM OINTMENT] TOP SCH (09:00)
[2022-09-09] MEDS: AMINO ACIDS/PROTEIN HYDROLYS 30 ML LIQUID.PKT PO SCH ×2 (09:00→21:00)
[2022-09-09] MEDS: HOME MED 1 EA UNK (Protein Supplement [Promod] 946 ML Liquid) PO SCH ×2 (09:00→21:00)
[2022-09-09] MEDS: METOPROLOL XL 25 MG TAB PO SCH (09:00)
[2022-09-09] MEDS: INSULIN 70/30 100 UNITS/ML SQ SCH ×2 (09:00→21:42)
--- NOTE | 2022-09-09 09:18 | P.PN ---
Date of Service: 09/09/22 Chief Complaint: altered mental status Subjective: Patient seen and examined at bedside. In bed, NAD. Family at bedside. Denies any new or worsening complaints. No acute events reported over the weekend. Physical Examination Temp Pulse Resp BP Pulse Ox 97.8 F 52 16 157/72 H 96 09/09/22 00:00 09/09/22 00:00 09/09/22 00:00 09/09/22 06:00 09/09/22 00:00 General: Alert, In no apparent distress, Oriented x3 HEENT: Atraumatic, Normocephalic Neck: Supple, JVD not distended Respiratory: Normal air movement, Crackles/rales, Cardiovascular: No edema, Weak DP and PT pulses Gastrointestinal: Normal bowel sounds, Soft and benign Musculoskeletal: No clubbing, No swelling. Left great toe amputation \ Integumentary: Left great toe amputation site wound. Left 4th toe ulceration, unstageable. Neurological: Normal speech, Normal tone, Normal affect Laboratory Data - Reviewed Microbiology Data - Reviewed Imagings Data: - Reviewed Medications List: Reviewed Assessment and Plan Problem List ESRD on HD Diabetes Mellitus II Atrial Fibrillation Hypothyroidism Hx CVA with Right Sided Weakness Hypertension Hyperlipidemia Pressure Ulcer Sacrum Urinary Tract Infection Moderate PCM Anemia of Chronic Disease Urinary Tract Infection, Acute Cystitis - Urinalysis 09/05: LE 500, RBC >50, WBC >50, Many WBC clumps, Bacteria 20-50, Hyaline casts 5-10, protein 2+ - Urine culture 09/05: Proteus mirabilis - History of recurrent Melba urinary infections this year (03/28, 05/05 and 06/23) - Currently on Rocephin (09/06-) Sacrum Pressure Ulcer Stage Left First Toe Amputation Site Wound Left Fourth Toe Wound - History of multi-drug resistant infection of wounds - 07/22: Enterobacter cloacae , Pseudomonas aeruginosa , Acinetobacter dalton/haem , Enterococcus faecalis - Wound culture left toe 09/06: Acinetobacter dalton/haem and Klebsiella pneumoniae ESBL - Wound culture sacrum 09/06: Proteus mirabilis - Patient sees wound care as outpatient regularly. Leukocytosis improved (WBC 9.9) Afebrile Recommendations - Switch to Meropenem IV to cover both Proteus and Klebsiella ESBL infection. Discontinue Rocephin. - Continue antibiotic therapy for 10 days. Started 09/06. - Left foot wound and 4th toe ulcer: Apply betadine to open areas on left foot including first toe amputation site and left 4th toe. Apply spacer or foam between 3rd and 4th toe to prevent pressure to 4th toe ulceration. - Strict blood glucose control. - Supportive care and nutritional support as needed. Case discussed with Boogie Eaton
[2022-09-09] MEDS: AMIODARONE HCL 200 MG TAB PO SCH ×2 (09:41→21:41)
[2022-09-09] MEDS: ZINC SULFATE 220 MG CAP PO SCH (09:41)
[2022-09-09] MEDS: DULOXETINE 20 MG CAP PO SCH (09:41)
[2022-09-09] MEDS: POLYETHYL GLY 3350 17 GM/DOSE PO SCH (09:41)
[2022-09-09] MEDS: CLOPIDOGREL 75 MG TABLET PO SCH (09:41)
[2022-09-09] MEDS: ASCORBIC ACID 500 MG TABLET PO SCH ×2 (09:41→21:41)
[2022-09-09] MEDS: lisinopriL 5 MG TAB PO SCH (09:43)
[2022-09-09] MEDS: APIXABAN 2.5 MG TABLET PO SCH ×2 (09:43→21:41)
[2022-09-09] MEDS: CEFTRIAXONE 1,000 MG in NA CHLORIDE 0.9% 50 ML IVPB SCH (09:43)
[2022-09-09] MEDS: COLLAGENASE 30 GM OINTMENT TOP SCH (09:44)
--- NOTE | 2022-09-09 13:02 | P.PN ---
Subjective Date of Service: 09/09/22 Chief Complaint: altered mental status Patient is concerned about redness on his left fourth toe. No agitation She is alert and oriented. She is tolerating her diet. Physical Examination - Vital Signs Temperature: 97.7 F Blood Pressure: 164/64 Pulse: 57 Respirations: 18 Pulse Ox (%): 97 Assessment And Plan - Plan Physical Exam Neck: JVD not distended Respiratory: Crackles/rales Cardiovascular: No edema, Normal pulses, Regular rate/rhythm Gastrointestinal: Normal bowel sounds, Soft and benign, Non-distended Musculoskeletal: No clubbing, No swelling Integumentary: Sacral ulcer, skin tear on the right arm, left great toe amputation wound dressed Neurological: Normal speech, No focal motor deficit. Diagnosis Metabolic encephalopathy likely due to uremia, missing dialysis versus urinary tract infection Acute cystitis Hyponatremia Microcytic anemia Insulin-dependent diabetes mellitus Sacral ulcer. End-stage renal disease on hemodialysis Chronic atrial fibrillation Essential hypertension Hyperlipidemia Hypothyroidism Assessment Plan Metabolic encephalopathy likely due to uremia versus urinary tract infection AMS resolved Fall precautions, supportive care, Acute cystitis Urine culture: Proteus Infectious disease input appreciated. Antibiotics changed to IV meropenem. Infectious disease is following. Hyponatremia Management with hemodialysis Anemia of kidney disease Stable. Insulin-dependent diabetes mellitus Accu-Chek ACHS, sliding scale insulin, continue home insulin regimen. Sacral ulcer, skin tear on the right arm/left great toe amputation stump wound Wound culture isolated ESBL Klebsiella and Acinetobacter. Infectious disease is recommending 2 weeks of IV meropenem. Local wound care. PICC line requested for outpatient IV antibiotics. IV Rocephin changed to IV meropenem. End-stage renal disease on hemodialysis Nephrology to follow for routine hemodialysis. History of May for atrial fibrillation Essential hypertension Hyperlipidemia Hypothyroidism Continue home medications. DVT prophylaxis: Heparin subQ
--- NOTE | 2022-09-09 15:18 | RAD REPORT ---
EXAM DESCRIPTION: RAD - Foot Left 2 View - 09/09/2022 2:14 pm CLINICAL HISTORY: RULE OUT OSTEO COMPARISON: Foot Left 3 View dated 07/22/2022; Foot Left 3 View dated 06/22/2022 FINDINGS/IMPRESSION: Status post partial amputation of the great toe with expected post-operative ch anges. The wound is present at the surgical site. No convincing evidence of osteomyelitis. MRI more s ensitive in the acute phase. No fracture.
[2022-09-09] MEDS: ACETAMINOPHEN 500 MG TAB PO PRN (16:00)
--- NOTE | 2022-09-09 17:56 | P.DS ---
Admission Date: 09/05/22 Discharge Date: 09/09/22 Reason for Admission: altered mental status Brief History of Present Illness: 82-year-old female with a past medical history of end-stage renal disease on hemodialysis, history of CVA with right-sided weakness, insulin-dependent diabetes mellitus, hypertension, atrial fibrillation, neuropathy, hypothyroidism, constipation, permanent pacemaker presented to the emergency room with worsening confusion. She is a resident at [facility], [id number] is primary historian. Daughter is the director of the f[employer]. Daughter reports that her [id number] was more confused, which occurs when she has urinary tract infection. She reports she does dialysis on Friday, she did not finish her dialysis on Friday due to worsening confusion. Patient reported hallucinations, seeing people and things on the wall that are not there. She denied fever, nausea vomiting diarrhea, cough, shortness of breath, abdominal pain chest pain. Laboratory evaluation showed WBC elevated at 12.0 with a left shift, anemia at 10.7, 33.7, sodium is 131, BUN 44, potassium normal at 4.9 creatinine is 98 blood glucose 171. UA leukoesterase greater than 500, 20-50 bacteria, 5-10 hyaline cast, 2+ blood, chest x-ray no acute cardiopulmonary disease, mild cardiomegaly, pacemaker, loop recorder. CT of the head IMPRESSION: No acute intracranial abnormality. Remote left pontine infarct fpc confusion. Patient was hospitalized for further management. Hospital Course: Diagnosis Metabolic encephalopathy likely due to uremia, missing dialysis versus urinary tract infection Acute cystitis Hyponatremia Microcytic anemia Insulin-dependent diabetes mellitus Sacral ulcer. End-stage renal disease on hemodialysis Chronic atrial fibrillation Essential hypertension Hyperlipidemia Hypothyroidism Patient admitted to the medical floor and the following medical problems addressed Metabolic encephalopathy likely due to uremia versus urinary tract infection Acute cystitis Urine culture: Proteus. Patient treated with several days of IV ceftriaxone. Her AMS resolved. Patient mental status improved to baseline. Infectious disease saw patient and recommended IV meropenem given left great toe amputation was done growing ESBL. Hyponatremia Managedt with hemodialysis Anemia of kidney disease Stable. Insulin-dependent diabetes mellitus Accu-Chek ACHS, sliding scale insulin, continue home insulin regimen. Sacral ulcer, skin tear on the right arm/left great toe amputation stump wound Left great toe amputation wound culture isolated ESBL Klebsiella and Acinetobacter. Infectious disease is recommending IV meropenem. Patient is on dialysis and need to avoid PICC line midline as much as possible. ID agrees to IM Invanz. Patient is discharged with 7 days of IM Invanz. Noted erythema on the dorsum of the left fourth toe as well as interdigital wound with scab on the left fourth toe. She was seen by surgery Dr. Martins, x-ray of the foot was done which did not any signs of osteomyelitis. Dr. Martins recommended to continue wound care End-stage renal disease on hemodialysis She underwent routine hemodialysis. History of May for atrial fibrillation Essential hypertension Hyperlipidemia Hypothyroidism Continued home medications. Vital Signs/Physical Exam: Temp Pulse Resp BP Pulse Ox 97.8 F 57 18 164/69 H 98 09/09/22 16:00 09/09/22 16:00 09/09/22 16:00 09/09/22 16:00 09/09/22 16:00 Laboratory Data at Discharge: WBC 9.90 thou/uL (4.3-10.9) 09/08/22 02:30 Hgb 9.7 g/dL (12.0-15.0) L 09/08/22 02:30 Hct 29.2 % (36.0-45.0) L 09/08/22 02:30 Plt Count 188 thou/uL (152-406) 09/08/22 02:30 Sodium 134 mEq/L (136-145) L D 09/08/22 02:30 Potassium 4.0 mEq/L (3.5-5.1) 09/08/22 02:30 BUN 28 mg/dL (7-18) H 09/08/22 02:30 Creatinine 3.16 mg/dL (0.55-1.02) H 09/08/22 02:30 Glucose 131 mg/dL (74-106) H 09/08/22 02:30 Magnesium 2.1 mg/dL (1.6-2.4) 09/08/22 02:30 Total Bilirubin 0.3 mg/dL (0.2-1.0) 09/05/22 22:00 AST 19 U/L (15-37) 09/05/22 22:00 ALT 15 U/L (13-56) 09/05/22 22:00 Alkaline Phosphatase 95 U/L (45-117) 09/05/22 22:00 Home Medications: Atorvastatin Calcium [Lipitor] 1 tab PO BEDTIME 05/08/17 Duloxetine [Cymbalta *] 1 cap PO DAILY 05/08/17 Acetaminophen with Codeine [Acetaminophen-Cod #3 Tablet] 1 tab PO Q6HP PRN 03/19/22 Amiodarone HCl [Pacerone] 200 mg PO BID 06/22/22 Ascorbic Acid 500 mg PO BID 06/22/22 Gabapentin 200 mg PO BEDTIME 06/22/22 Levothyroxine [Synthroid*] 125 mcg PO [id number] 06/22/22 Mag Hydroxide 8% [Milk Of Magnesia*] 30 ml PO DAILYPRN PRN 06/22/22 Ondansetron [Zofran (Odt)*] 4 mg PO Q8HP PRN 06/22/22 Zinc Sulfate [Zinc Sulfate*] 220 mg PO DAILY 06/22/22 Collagenase [Santyl Ointment*] 1 appl TOP DAILY #1 tube 06/25/22 Clopidogrel Bisulfate [Plavix*] 75 mg PO DAILY 07/22/22 Docusate [Colace Cap*] 100 mg PO SEECOM 07/22/22 Metoprolol Succinate 12.5 mg PO DAILY 07/22/22 Polyethyl Gly 3350 [Glycolax*] 17 gm PO DAILY 07/22/22 Protein Supplement [Promod] 60 ml PO BID 07/22/22 lisinopriL [Prinivil*] 5 mg PO DAILY #30 tab 07/26/22 Apixaban [Eliquis *] 2.5 mg PO BID 09/06/22 Insulin NPH Hum/Reg Insulin Hm [Humulin 70/30 Kwikpen] 10 unit SQ BID 09/06/22 Lactulose [Enulose] 10 gm PO SEECOM 09/06/22 Phenol [Chloraseptic] 5 spray PO Q2HP PRN 09/06/22 Saccharomyces Boulardii [Daily Probiotic] 1 cap PO BID 09/06/22 guaiFENesin [Stephani-Tussin] 10 ml PO Q6HP PRN 09/06/22 levoFLOXacin [Levaquin] 250 mg PO T,TH,S 09/06/22
[2022-09-09] MEDS: Meropenem 1,000 MG in NA CHLORIDE 0.9% 100 ML IV SCH (21:40)
[2022-09-09] MEDS: ATORVASTATIN 80 MG TAB PO SCH (21:41)
[2022-09-09] MEDS: GABAPENTIN 100 MG CAP PO SCH (21:41)
[2022-09-09] MEDS: Mupirocin NASAL 2 APPL/1 GM TUBE NAS SCH (21:44)
--- NOTE | 2022-09-10 03:54 | PN ---
Date of Progress Note: 09/09/2022 Chief Complaint: End-stage renal disease, on hemodialysis on Friday, , Friday. The patie nt has fluid overload, peripheral edema. She has history of diabetes mellitus with renal manifestati on, end-stage renal disease, hypertension, atrial fibrillation, nonhealing lower extremity wounds and cellulitis, osteomyelitis, and she received dialysis on Friday and edema of the legs has improved. Review of Systems: Denies fever, chills. Physical Examination: Lungs: Clear to auscultation bilaterally. Heart: S1, S2. Abdomen: Soft. Extremities: Slight edema. Impression And Plan: 1.End-stage renal disease. 2.Dialysis tomorrow. 3.Altered mental status secondary to encephalopathy due to urinary tract infection. Patient is on a ntibiotic. 4.Hyponatremia due to fluid overload exacerbation, with dialysis. Continue ultrafiltration. 5.Anemia in chronic kidney disease. Monitor hemoglobin level. 6.Renal osteodystrophy. Monitor serum calcium and phosphorus. Continue binders. 7.Wound of the lower extremity, diabetic foot infection. Continue wound care and antibiotics per In fectious Disease. EB/MODL Voice ID: [id number] Report ID: [id number]
[2022-09-10] MEDS: lisinopriL 5 MG TAB PO SCH (05:26)
[2022-09-10] MEDS: LEVOTHYROXINE SOD 0.125 MG TAB PO SCH (05:27)
--- NOTE | 2022-09-10 07:16 | P.PN ---
Date of Service: 09/10/22 Subjective: doing okay no acute events overnight afebrile concerned about toe appearance, wanting to avoid amputation ROS: 10 point ROS as noted above, otherwise negative Physical Exam: GEN: Alert, oriented, NAD HEENT: Normal conjunctiva, sclera anicteric CV: Regular rate and rhythm, trace edema Pulm: Nonlabored respirations on room air, clear bilaterally ABD: Soft, nontender, nondistended Integumentary: Left great toe amputation site without purulent drainage, no surrounding erythema, L 3rd-4th toe with ulcer, Sacral ulcer, skin tear on the right arm vitals reviewed Problem List: Metabolic encephalopathy likely due to uremia, missing dialysis vs UTI Acute cystitis Sacral ulcer, skin tear on the right arm/left great toe amputation stump wound ESRD on HD TTS Hyponatremia Microcytic anemia IDDM Chronic atrial fibrillation Hypertension Hyperlipidemia Hypothyroidism Metabolic encephalopathy likely due to uremia vs UTI AMS resolved Fall precautions, supportive care Acute cystitis, Proteus Mirabilis UA 09/05: LE 500, RBC >50, WBC >50, Bacteria 20-50 Urine culture: Proteus ID consulted Rocephin (09/06-09/09) changed to IV meropenem (09/09- ~09/19) x10 days Afebrile, no leukocytosis Sacral ulcer, skin tear on the right arm/left great toe amputation stump wound L 4th toe ulcer Wound culture: MRSA, ESBL Klebsiella and Acinetobacter ID following Continue IV meropenem (09/09 - ~09/19) Vancomycin added (09/10) given MRSA; continue on HD days for 10 days IM Invanz on discharge + Vanc with HD Local wound care General surgery consulted for toe ulcer, may need amputation; patient currently wants to try antibiotics and wound care ESRD on HD TTS Hyponatremia Nephrology following Microcytic anemia Stable. IDDM Accu-Chek ACHS, sliding scale insulin, continue home insulin regimen. Chronic atrial fibrillation Hypertension Hyperlipidemia Hypothyroidism Continue home medications. VTE: Heparin sq Code: Full Dispo: Jail, ~1 day
[2022-09-10] MEDS: Meropenem 1,000 MG in NA CHLORIDE 0.9% 100 ML IV SCH (08:38)
[2022-09-10] MEDS: ASCORBIC ACID 500 MG TABLET PO SCH ×2 (08:38→21:21)
[2022-09-10] MEDS: CLOPIDOGREL 75 MG TABLET PO SCH (08:39)
[2022-09-10] MEDS: POLYETHYL GLY 3350 17 GM/DOSE PO SCH (08:39)
[2022-09-10] MEDS: DULOXETINE 20 MG CAP PO SCH (08:39)
[2022-09-10] MEDS: ZINC SULFATE 220 MG CAP PO SCH (08:39)
[2022-09-10] MEDS: AMIODARONE HCL 200 MG TAB PO SCH ×2 (08:39→21:00)
[2022-09-10] MEDS: INSULIN 70/30 100 UNITS/ML SQ SCH ×2 (08:39→22:49)
[2022-09-10] MEDS: APIXABAN 2.5 MG TABLET PO SCH ×2 (08:39→21:21)
[2022-09-10] MEDS: AMINO ACIDS/PROTEIN HYDROLYS 30 ML LIQUID.PKT PO SCH ×2 (08:40→21:20)
[2022-09-10] MEDS: COLLAGENASE 30 GM OINTMENT TOP SCH (08:40)
[2022-09-10] MEDS: Mupirocin NASAL 2 APPL/1 GM TUBE NAS SCH (08:40)
[2022-09-10] MEDS: HOME MED [COLLAGENASE 30 GM OINTMENT] TOP SCH (08:41)
[2022-09-10] MEDS: METOPROLOL XL 25 MG TAB PO SCH (08:43)
[2022-09-10] MEDS: HOME MED 1 EA UNK (Protein Supplement [Promod] 946 ML Liquid) PO SCH ×2 (08:43→21:00)
--- NOTE | 2022-09-10 09:29 | P.PN ---
Date of Service: 09/10/22 Chief Complaint: altered mental status Subjective: Improving. Patient in bed, NAD. + sacral pain Family at bedside. No acute events reported overnight. Physical Examination Temp Pulse Resp BP Pulse Ox 97.8 F 52 16 176/77 H 94 09/10/22 08:00 09/10/22 08:43 09/10/22 08:00 09/10/22 08:43 09/10/22 08:00 General: Alert, In no apparent distress, Oriented x3 HEENT: Atraumatic, Normocephalic Neck: Supple, JVD not distended Respiratory: Normal air movement, Crackles/rales, Cardiovascular: No edema, Weak DP and PT pulses Gastrointestinal: Normal bowel sounds, Soft and benign Musculoskeletal: No clubbing, No swelling. Left great toe amputation \ Integumentary: Left great toe amputation site wound. Left 4th toe ulceration, unstageable. Neurological: Normal speech, Normal tone, Normal affect Laboratory Data - Reviewed Microbiology Data - Reviewed Imagings Data: - Reviewed Medications List: Reviewed Assessment and Plan Problem List ESRD on HD Diabetes Mellitus II Atrial Fibrillation Hypothyroidism Hx CVA with Right Sided Weakness Hypertension Hyperlipidemia Pressure Ulcer Sacrum Urinary Tract Infection Moderate PCM Anemia of Chronic Disease Urinary Tract Infection, Acute Cystitis - Urinalysis 09/05: LE 500, RBC >50, WBC >50, Many WBC clumps, Bacteria 20-50, Hyaline casts 5-10, protein 2+ - Urine culture 09/05: Proteus mirabilis - History of recurrent Melba urinary infections this year (03/28, 05/05 and 06/23) - Currently on Rocephin (09/06-) Sacrum Pressure Ulcer Stage Left First Toe Amputation Site Wound Left Fourth Toe Wound - History of multi-drug resistant wound infections - Wound culture left toe 09/06: MRSA , Klebsiella pneumoniae ESBL and Acinetobacter dalton/haem - Wound culture sacrum 09/06: Proteus mirabilis - Patient sees wound care as outpatient regularly. Leukocytosis resolved. Afebrile Recommendations - Foot Wound infection with MRSA, Klebsiella ESBL and Acinetobacter - Currently on Meropenem (covering Proteus and Klebsiella ESBL). Invanz also ok IV or IM - MRSA: Add Vancomycin IV on dialysis days - Continue antibiotic therapy for a total of 10 days - Left foot wounds and 4th toe ulcer: Apply betadine to open areas on left foot including first toe amputation site and left 4th toe. Apply spacer or foam b etween 3rd and 4th toe to prevent pressure to 4th toe ulceration. - Strict blood glucose control. - Supportive care and nutritional support as needed. Case discussed with Boogie Eaton
[2022-09-10] MEDS ORDERED: EPOETIN ALFA 10,000 UNIT/ML VIAL IV SCH (11:00)
--- NOTE | 2022-09-10 12:36 | PN ---
Date of Progress Note: 09/10/2022 Subjective: The patient was admitted with gangrenous toe, status post amputation, infected stump. The patient had ESBL. The patient had dialysis the day before yesterday, scheduled for dialysis today. Physical Examination: Vital Signs: Blood pressure 176/77, pulse of 52, afebrile. Chest: Clear to auscultation. Heart: S1, S2. Systolic murmur. Abdomen: Soft, nontender. Extremity: No edema. Amputation on the big toe and ulceration on the second toe. Neurologic: Alert. No focality. Laboratory Data: Hemoglobin 9.7. Sodium 134, potassium 4, bicarb 27, BUN 28, creatinine 3.1, calcium 7.8, magnesium 2.1. Current Medications: The patient on include; 1. Meropenem. 2. Heparin. 3. Eliquis. 4. Plavix. 5. Amiodarone. 6. Atorvastatin. 7. Lisinopril 5 mg daily. 8. Gabapentin. 9. Insulin. Assessment And Plan: 1. End-stage renal disease. Normal volume. We will continue the patient on dialysis TTS schedule for dialysis today. 2. Hypertension, controlled. We will follow up blood pressure post dialysis. I am going to go ahead and increase her lisinopril to 10 mg to establish better blood pressure control. 3. Wound infection secondary to ESBL, Proteus mirabilis and Klebsiella pneumoniae, Acinetobacter, sensitive to meropenem and vancomycin. We will follow up with ID. We will arrange for Invanz IM and continue vancomycin for another 10 days as by ID recommendation. 4. Hyponatremia, will be corrected with dialysis. 5. Anemia of chronic kidney disease. Continue JOHNNY. 6. Diabetes as by primary. Time spent examining the patient [id number], reviewing data, lab and radiology, placing order, discussing the case with the steamboat pilot including hospitalist and nursing staff more than 35 minutes. YUDITH Voice ID: [id number] Report ID: [id number] XIAO
[2022-09-10] MEDS ORDERED: VANCOMYCIN 1.75 GM in NA CHLORIDE 0.9% 500 ML IVPB ONE (17:00)
--- NOTE | 2022-09-10 19:12 | P.PN ---
Subjective Date of Service: 09/10/22 Chief Complaint: LEFt foot infection Subjective: No new changes Physical Examination - Vital Signs Temperature: 97.2 F Blood Pressure: 115/49 Pulse: 57 Respirations: 18 Pulse Ox (%): 96 - Physical Exam General: Alert, In no apparent distress, Cooperative Musculoskeletal: Other (LEFT foot = great toe wound is stable, no chanes, remainder of exam of toes is unchanged as well) Assessment And Plan - Plan - continue current wound treatment plan - continue antibiotics - continue medical management per primary team Physician Review: Patient Assessed, Agree with Above Assessment and Plan
--- NOTE | 2022-09-10 20:00 | CON ---
Date of Consultation: 09/09/2022 Brief History Of Present Illness: The patient is an 82-year-old female, known to me with end-stage r enal disease, on hemodialysis for which I placed a hemodialysis catheter on the right side. She pres ented to the hospital with several concerns. She had also had a history of CVA, right-sided weakness , diabetes, hypertension, atrial fibrillation, neuropathy, hypothyroidism, chronic constipation, depe ndent on pacemaker, who had worsening confusion and was brought to the ER for the above issue from [facility]. The patient was initially worked up for altered mental status, but noted also have an issue with respect to her foot, specifically her left foot. I am consulted to see the josh van regarding her left foot. Between my encounter with her placing hemodialysis catheter and my fawad van consultation, she was seen by another physician who performed an amputation of her great toe on same left foot. She states she has an open wound in that area, which has been draining as of the l ast few days to a week. She has increased tenderness in the area as well, in the area of the great t oe as well as the third toe and fourth toe on the same foot. Past Medical History: Significant for CVA with right-sided weakness, diabetes, hypertension, atrial fibrillation, neuropathy, hyperlipidemia, hypothyroidism, ESRD on hemodialysis, chronic osteomyelitis with nonhealing ulcer of the great toe, supraventricular tachycardia. Past Surgical History: Includes a thyroidectomy, pacemaker placement, hysterectomy, cataract surgery , hemodialysis catheter placement, amputation of great toe on the left foot. Allergies: NO KNOWN DRUG ALLERGIES. Home Medications: Included Lipitor, Cymbalta, acetaminophen with codeine, amiodarone, ascorbic acid, gabapentin, Synthroid, milk of magnesia, Zofran, zinc sulfate, Santyl, insulin, Eliquis, Plavix, Col guzman, metoprolol, nystatin, polyethylene glycol, protein supplementation and ProMod, Bactrim, lisinopr il. Family History: Significant for hypertension in mother and diabetes in the father. Social History: She denies smoking, alcohol, or recreational drug use. She lives in a alf. Review of Systems: Ten-point review of systems other than HPI, she currently denies. Physical Examination: General: At the time of my examination; she is awake, alert, oriented. Psychiatric: She is appropriate, conversive. HEENT: She is normocephalic. Her sclerae anicteric. Mucous membranes moist. Oropharynx clear. Neck: Supple without JVD. Chest: Expansion and excursion. Cardiovascular: Currently no abnormal heart sounds noted. Pacemaker is present. Abdomen: Soft. Extremities: Focused examination of the extremities; on her left foot, there was an open wound with a great toe with a satellite wound on the lateral aspect of the great toe. Laboratory Data: Revealed a white blood cell count of 9.9, hemoglobin was 9.7, hematocrit 29.2, plat elet count was 188. Her last electrolyte panel on 09/08 showed sodium of 134, potassium 4.0, chlorid e 103, carbon dioxide 27, BUN 28, creatinine 3.16, glucose is 131, magnesium 2.1. She had imaging, w hich included an x-ray of the foot, which showed no obvious osteomyelitis, specifically it was read a s status post partial amputation of the great toe with expected postoperative changes. The wound is present at the surgical site. No convincing evidence of osteomyelitis. MRI is more sensitive in the acute phase. No fracture appreciated. Assessment And Plan: This is an 82-year-old woman, who presents with 2 issues of the left foot in ad dition to medical issues. 1.Continue medical management per primary medical team. 2.Continue antibiotic coverage. 3.I have recommended ongoing wound care for the great toe wound with Santyl, Vashe packing daily. I have also recommended Vashe wrapping to the third and fourth toe web space. 4.Serial exams would be recommended if the wound worsens of the toe and web space and extends up the third and fourth toes. She might need debridement and/or possible amputation if it worsens signific antly. 5.Continue medical management with respect to her diabetes and comorbid medical conditions to optimi ze her medical situation. 6.I have explained the risks, benefits, and alternatives of medical versus operative management of h er left foot as described above. The patient does not want to entertain any surgical options at this time and would only agree to wound care per her recommendations. She is concerned that she might ne ed an additional amputation and would like nonoperative management to try to manage her current wound situation. 7.I have stated that it is reasonable to try a course of wound care; however, if it is not improving , we should reconsider surgical options at that time. The patient agrees to proceed as indicated. Thank you for this interesting consult. DINA Voice ID: [id number] Report ID: [id number]
[2022-09-10] MEDS: GABAPENTIN 100 MG CAP PO SCH (21:21)
[2022-09-10] MEDS: ATORVASTATIN 80 MG TAB PO SCH (21:21)
[2022-09-11 01:06] VITALS: O2SAT 96
[2022-09-11] MEDS: LEVOTHYROXINE SOD 0.125 MG TAB PO SCH (05:49)
[2022-09-11 06:37] LABS: Hematocrit 34.2 % (36.0-45.0); Lymphocytes % 9.5 % (15.3-44.8); MCV 96.6 fL (80-100); MPV 7.6 fL (7.6-11.3); Platelets 196 thou/uL (152-406); RBC Red Blood Cell Count 3.54 M/uL (3.86-4.86)
[2022-09-11 08:31] LABS: Magnesium 2.1 mg/dL (1.6-2.4); Potassium 4.4 mEq/L (3.5-5.1)
--- NOTE | 2022-09-11 08:31 | P.DS ---
Admission Date: 09/05/22 Discharge Date: 09/11/22 Reason for Admission: LEFt foot infection Consultations: Infectious Disease - Dr. Beal General Surgery - Dr. Martins Nephrology - Dr. Heller Brief History of Present Illness: 82yo F, PMH: ESRD on hemodialysis, history of CVA with right-sided weakness, insulin-dependent diabetes mellitus, hypertension, atrial fibrillation, neuropathy, hypothyroidism, constipation, permanent pacemaker Patient presents to the emergency room with worsening confusion. She is a resident at [facility], [id number] is at bedside is primary historian. Daughter is the director of the alf. Reports her [id number]-xb-[id number] has been more confused, which occurs when her mother has urinary tract infection. She reports dialysis Friday, reports she did not finish her dialysis on Friday due to worsening confusion. Patient reports mild hallucinations, seeing people and things on the wall that are not there. She denies fever, nausea vomiting diarrhea, cough, shortness of breath, abdominal pain chest pain. Laboratory evaluation WBC is elevated at 12.0 with a left shift, anemia at 10.7, 33.7, sodium is 131, BUN 44, potassium normal at 4.9 creatinine is 98 blood glucose 171. UA leukoesterase greater than 500, 20-50 bacteria, 5-10 hyaline cast, 2+ blood, chest x-ray no acute cardiopulmonary disease, mild cardiomegaly, pacemaker, loop recorder. CT of the head IMPRESSION: No acute intracranial abnormality. Hospital Course: Problem List: Metabolic encephalopathy likely due to uremia, missing dialysis vs UTI Acute cystitis Sacral ulcer, skin tear on the right arm/left great toe amputation stump wound ESRD on HD TTS Hyponatremia Microcytic anemia IDDM Chronic atrial fibrillation Hypertension Hyperlipidemia Hypothyroidism Patient presented with altered mental status, hallucinations, and found to have UTI and left foot wound infection: left great toe amputation stump wound and Left 4th toe ulcer. ID, Nephrology, and General Surgery were consulted. Urine culture grew Proteus Mirabilis. Wound culture grew Acinetobacter Maribel/Haem, Klebsiella Pneumoniae Esbl. Patient was initially treated with IV rocephin and switched to meropenem given culture results. MRSA was later seen to be growing from the wound culture and vancomycin was added and scheduled to be given on dialysis days. Due to requiring dialysis, nephrology recommended avoidance of midline/PICC line. ID recommended IM Invanz instead of Merrem, and the IV vancomycin can be given at dialysis General surgery was consulted for her toe ulcer. Dr. Martins recommenced wound care for the great toe wound with santyl, Vashe packing daily. Vashe wrapping to the third and fourth web space. Discussed with patient the risks, benefits, and alternatives of medical vs. surgical management of her left foot. If the wound worsened she may benefit from debridement and/or amputation. Patient acknowledged the risks and would like to continue wound care/antibiotics first before entertaining the idea of surgery. Her great toe wound /amputation site improved during hospitalization. Vitals were stable, and she was deemed stable for discharge. New / change in prescriptions: IM invanz Vancomycin on dialysis days Follow up: PCP 3-[address] Martins within 1-2 weeks Nephrology within 1-2 weeks Physical Exam: GEN: Alert, oriented, NAD HEENT: Normal conjunctiva, sclera anicteric CV: Regular rate and rhythm, trace edema Pulm: Nonlabored respirations on room air, clear bilaterally ABD: Soft, nontender, nondistended MSK: No joint tenderness Integumentary: Left great toe amputation site without purulent drainage, no surrounding erythema, L 3rd-4th toe with ulcer, Sacral ulcer, skin tear on the right arm Neuro: Normal speech, normal affect Vital Signs/Physical Exam: Temp Pulse Resp BP Pulse Ox 97.4 F 54 16 152/64 H 96 09/11/22 04:35 09/11/22 04:35 09/11/22 04:35 09/10/22 21:15 09/10/22 21:15 Laboratory Data at Discharge: WBC 10.90 thou/uL (4.3-10.9) 09/11/22 05:54 Hgb 11.0 g/dL (12.0-15.0) L 09/11/22 05:54 Hct 34.2 % (36.0-45.0) L 09/11/22 05:54 Plt Count 196 thou/uL (152-406) 09/11/22 05:54 Sodium 134 mEq/L (136-145) L D 09/08/22 02:30 Potassium 4.0 mEq/L (3.5-5.1) 09/08/22 02:30 BUN 28 mg/dL (7-18) H 09/08/22 02:30 Creatinine 3.16 mg/dL (0.55-1.02) H 09/08/22 02:30 Glucose 131 mg/dL (74-106) H 09/08/22 02:30 Magnesium 2.1 mg/dL (1.6-2.4) 09/08/22 02:30 Total Bilirubin 0.3 mg/dL (0.2-1.0) 09/05/22 22:00 AST 19 U/L (15-37) 09/05/22 22:00 ALT 15 U/L (13-56) 09/05/22 22:00 Alkaline Phosphatase 95 U/L (45-117) 09/05/22 22:00 Home Medications: Atorvastatin Calcium [Lipitor] 1 tab PO BEDTIME 05/08/17 Duloxetine [Cymbalta *] 1 cap PO DAILY 05/08/17 Acetaminophen with Codeine [Acetaminophen-Cod #3 Tablet] 1 tab PO Q6HP PRN 03/19/22 Amiodarone HCl [Pacerone] 200 mg PO BID 06/22/22 Ascorbic Acid 500 mg PO BID 06/22/22 Gabapentin 200 mg PO BEDTIME 06/22/22 Levothyroxine [Synthroid*] 125 mcg PO [id number] 06/22/22 Mag Hydroxide 8% [Milk Of Magnesia*] 30 ml PO DAILYPRN PRN 06/22/22 Ondansetron [Zofran (Odt)*] 4 mg PO Q8HP PRN 06/22/22 Zinc Sulfate [Zinc Sulfate*] 220 mg PO DAILY 06/22/22 Collagenase [Santyl Ointment*] 1 appl TOP DAILY #1 tube 06/25/22 Clopidogrel Bisulfate [Plavix*] 75 mg PO DAILY 07/22/22 Docusate [Colace Cap*] 100 mg PO SEECOM 07/22/22 Metoprolol Succinate 12.5 mg PO DAILY 07/22/22 Polyethyl Gly 3350 [Glycolax*] 17 gm PO DAILY 07/22/22 Protein Supplement [Promod] 60 ml PO BID 07/22/22 lisinopriL [Prinivil*] 5 mg PO DAILY #30 tab 07/26/22 Apixaban [Eliquis *] 2.5 mg PO BID 09/06/22 Insulin NPH Hum/Reg Insulin Hm [Humulin 70/30 Kwikpen] 10 unit SQ BID 09/06/22 Lactulose [Enulose] 10 gm PO SEECOM 09/06/22 Phenol [Chloraseptic] 5 spray PO Q2HP PRN 09/06/22 Saccharomyces Boulardii [Daily Probiotic] 1 cap PO BID 09/06/22 guaiFENesin [Stephani-Tussin] 10 ml PO Q6HP PRN 09/06/22 Collagenase [Santyl Ointment*] 1 appl TOP DAILY tube 09/11/22 Physician Discharge Instructions: Patient presented with altered mental status, hallucinations, and found to have UTI and left foot wound infection: left great toe amputation stump wound and Left 4th toe ulcer. ID, Nephrology, and General Surgery were consulted. Urine culture grew Proteus Mirabilis. Wound culture grew Acinetobacter Maribel/Haem, Klebsiella Pneumoniae Esbl. Patient was initially treated with IV rocephin and switched to meropenem given culture results. MRSA was later seen to be growing from the wound culture and vancomycin was added and scheduled to be given on dialysis days. Due to requiring dialysis, nephrology recommended avoidance of midline/PICC line. ID recommended IM Invanz instead of Merrem, and the IV vancomycin can be given at dialysis General surgery was consulted for her toe ulcer. Dr. Martins recommenced wound care for the great toe wound with santyl, Vashe packing daily. Vashe wrapping to the third and fourth web space. Discussed with patient the risks, benefits, and alternatives of medical vs. surgical management of her left foot. If the wound worsened she may benefit from debridement and/or amputation. Patient acknowledged the risks and would like to continue wound care/antibiotics first before entertaining the idea of surgery. Her great toe wound /amputation site improved during hospitalization. Vitals were stable, and she was deemed stable for discharge. New / change in prescriptions: IM invanz Vancomycin on dialysis days Follow up: PCP 3-[address] Martins within 1-2 weeks Nephrology within 1-2 weeks Time spent managing pt's care (in minutes): 45
[2022-09-11] MEDS: ASCORBIC ACID 500 MG TABLET PO SCH (08:38)
[2022-09-11] MEDS: CLOPIDOGREL 75 MG TABLET PO SCH (08:38)
[2022-09-11] MEDS: AMIODARONE HCL 200 MG TAB PO SCH (08:39)
[2022-09-11] MEDS: INSULIN 70/30 100 UNITS/ML SQ SCH (08:39)
[2022-09-11] MEDS: POLYETHYL GLY 3350 17 GM/DOSE PO SCH (08:39)
[2022-09-11] MEDS: ZINC SULFATE 220 MG CAP PO SCH (08:39)
[2022-09-11] MEDS: APIXABAN 2.5 MG TABLET PO SCH (08:39)
[2022-09-11] MEDS: DULOXETINE 20 MG CAP PO SCH (08:39)
[2022-09-11] MEDS: DOCUSATE NA 100 MG CAP PO SCH (08:40)
[2022-09-11] MEDS: HOME MED [COLLAGENASE 30 GM OINTMENT] TOP SCH (08:40)
[2022-09-11] MEDS: HOME MED 1 EA UNK (Protein Supplement [Promod] 946 ML Liquid) PO SCH (08:40)
[2022-09-11] MEDS: AMINO ACIDS/PROTEIN HYDROLYS 30 ML LIQUID.PKT PO SCH (08:40)
[2022-09-11] MEDS: COLLAGENASE 30 GM OINTMENT TOP SCH (08:40)
[2022-09-11] MEDS: METOPROLOL XL 25 MG TAB PO SCH (08:41)
[2022-09-11] MEDS ORDERED: lisinopriL 10 MG TAB PO SCH (09:00)
[2022-09-11] MEDS ORDERED: Meropenem 500 MG in NA CHLORIDE 0.9% 100 ML IV SCH (09:00)
--- NOTE | 2022-09-11 09:49 | P.PN ---
Date of Service: 09/11/22 Chief Complaint: altered mental status Subjective: Patient in bed. Reports left foot pain primarily 4th toe where there is a wound. Denies any chest pain, shortness of breath or cough. Denies any urinary symptoms. No nausea, vomiting, diarrhea or abdominal pain. No acute events reported overnight. Overall improving. at bedside. Physical Examination Temp Pulse Resp BP Pulse Ox 97.1 F 58 16 182/74 H 98 09/11/22 08:00 09/11/22 08:41 09/11/22 08:00 09/11/22 08:41 09/11/22 08:00 General: Alert, In no apparent distress, Oriented x3 HEENT: Atraumatic, Normocephalic Neck: Supple, JVD not distended Respiratory: Normal air movement, breathing comfortably on room air. Diminished at bases. Cardiovascular: No edema, Weak DP and PT pulses Gastrointestinal: Normal bowel sounds, Soft and benign Musculoskeletal: No clubbing, No swelling. Left great toe amputation. Integumentary: Left great toe amputation site wound. Left 4th toe ulceration, unstageable. Neurological: Normal speech, Normal tone, Normal affect Laboratory Data - Reviewed Microbiology Data - Reviewed Imagings Data: - Reviewed Medications List: Reviewed Assessment and Plan Problem List ESRD on HD Diabetes Mellitus II Atrial Fibrillation Hypothyroidism Hx CVA with Right Sided Weakness Hypertension Hyperlipidemia Pressure Ulcer Sacrum Urinary Tract Infection Moderate PCM Anemia of Chronic Disease Urinary Tract Infection, Acute Cystitis - Urinalysis 09/05: LE 500, RBC >50, WBC >50, Many WBC clumps, Bacteria 20-50, Hyaline casts 5-10, protein 2+ - Urine culture 09/05: Proteus mirabilis - History of recurrent Melba urinary infections this year (03/28, 05/05 and 06/23) - Currently on Rocephin (09/06-) Sacrum Pressure Ulcer Stage Left First Toe Amputation Site Wound Left Fourth Toe Wound - History of multi-drug resistant wound infections - Wound culture left toe 09/06: MRSA , Klebsiella pneumoniae ESBL and Acinetobacter dalton/haem - Wound culture sacrum 09/06: Proteus mirabilis - Patient sees wound care as outpatient regularly. Leukocytosis resolved. Afebrile Recommendations - Foot Wound infection with MRSA, Klebsiella ESBL and Acinetobacter - Currently on Meropenem (covering Proteus and Klebsiella ESBL). Invanz also ok IV or IM - MRSA: Add Vancomycin IV on dialysis days - Continue antibiotic therapy for a total of 10 days - Left foot wounds and 4th toe ulcer: Apply betadine to open areas on left foot including first toe amputation site and left 4th toe. Apply spacer or foam between 3rd and 4th toe to prevent pressure to 4th toe ulceration. - Strict blood glucose control. - Supportive care and nutritional support as needed. Patient to be discharged back to detention today. Case management following. Case discussed with Boogie Eaton
--- NOTE | 2022-09-11 13:12 | PN ---
Date of Progress Note: 09/11/2022 Subjective: The patient was admitted with foot infection, toe infection, status post toe amputation. The patient has Acinetobacter, ESBL. The patient was started on vancomycin and meropenem, the patient tolerated well. The patient planned for discharge. Physical Examination: Vital Signs: Blood pressure 182/74, pulse of 58, afebrile. Chest: Clear to auscultation. Heart: S1, S2. Regular. Abdomen: Soft, nontender. Extremities: Dressing on the left foot, dressing on the amputation site and on the ulcer on the second toe. Laboratory Data: Hemoglobin 11, WBC 10.9. Sodium 136, potassium 4.4, bicarb 26, BUN 29, creatinine 3.7, calcium 8.4, magnesium 2.1. Current Medications: The patient on include; 1. Heparin. 2. Eliquis 2.5 b.i.d. 3. Plavix. 4. Epogen. 5. Amiodarone 200 b.i.d. 6. Atorvastatin. 7. Lisinopril 10 daily. 8. Metoprolol. 9. Tylenol. 10. Gabapentin. 11. Docusate. 12. TPN. Assessment And Plan: 1. End-stage renal disease. We will continue the patient on dialysis TTS. I am going to go ahead and arrange for dialysis tomorrow if the patient is staying in the hospital. 2. Hypertension, not controlled. We will go ahead and increase her lisinopril to 20 mg and we will follow up the patient. 3. Foot infection, status post amputation, ESBL. Continue current antibiotic dose appropriate. We will follow up with primary. 4. Deconditioning. Continue PT, OT. Time spent examining the patient [id number], reviewing data, lab and radiology, placing order, discussing the case with the pricing/signage team member including hospitalist and nursing staff more than 35 minutes. YUDITH Voice ID: [id number] Report ID: [id number] XIAO
[2022-09-11 15:31] VITALS: BP 140/83; TEMP 97.8
[2022-09-11] MEDS ORDERED: VANCOMYCIN 1 GM in NA CHLORIDE 0.9% 250 ML IVPB SCH (17:00)
[2022-09-12] MEDS ORDERED: lisinopriL 20 MG TAB PO SCH (09:00)
== END 2022-09-11 14:15 | DRG 689 ==
LOC: ER 20:28 → ERHOLD 23:43 → 4TH 09-06 01:05
PROVIDERS: ADMIT Internal Medicine; ATTEND Hospitalist
PROC: 5A1D70Z Performance of Urinary Filtration, Intermittent, Less than 6 Hours Per Day (ICD-10-PCS; principal; 2022-09-05)
DX: N30.00 Acute cystitis without hematuria (principal); G93.41 Metabolic encephalopathy; N18.6 End stage renal disease; I69.351 Hemiplegia and hemiparesis following cerebral infarction affecting right dominant side; I12.0 Hypertensive chronic kidney disease with stage 5 chronic kidney disease or end stage renal disease; R44.3 Hallucinations, unspecified; E87.1 Hypo-osmolality and hyponatremia; Z68.41 Body mass index [BMI] 40.0-44.9, adult; E44.0 Moderate protein-calorie malnutrition; Z16.12 Extended spectrum beta lactamase (ESBL) resistance; I48.20 Chronic atrial fibrillation, unspecified; E11.52 Type 2 diabetes mellitus with diabetic peripheral angiopathy with gangrene; T87.44 Infection of amputation stump, left lower extremity; E11.22 Type 2 diabetes mellitus with diabetic chronic kidney disease; E11.40 Type 2 diabetes mellitus with diabetic neuropathy, unspecified; E11.621 Type 2 diabetes mellitus with foot ulcer; L97.529 Non-pressure chronic ulcer of other part of left foot with unspecified severity; D63.1 Anemia in chronic kidney disease; D50.9 Iron deficiency anemia, unspecified; I48.91 Unspecified atrial fibrillation; E03.9 Hypothyroidism, unspecified; E66.9 Obesity, unspecified; N25.0 Renal osteodystrophy; E87.70 Fluid overload, unspecified; E78.5 Hyperlipidemia, unspecified; L89.159 Pressure ulcer of sacral region, unspecified stage; S41.111A Laceration without foreign body of right upper arm, initial encounter; B96.1 Klebsiella pneumoniae [K. pneumoniae] as the cause of diseases classified elsewhere; B96.4 Proteus (mirabilis) (morganii) as the cause of diseases classified elsewhere; B95.62 Methicillin resistant Staphylococcus aureus infection as the cause of diseases classified elsewhere; Z95.0 Presence of cardiac pacemaker; Z99.2 Dependence on renal dialysis; Z79.4 Long term (current) use of insulin; Z79.02 Long term (current) use of antithrombotics/antiplatelets; Z79.01 Long term (current) use of anticoagulants; Z79.890 Hormone replacement therapy; Z79.899 Other long term (current) drug therapy; Z90.710 Acquired absence of both cervix and uterus; Z89.412 Acquired absence of left great toe; Z91.158 Patient's noncompliance with renal dialysis for other reason
CPT/HCPCS: 11042; 36415; 70450; 71045; 80048; 80053; 81001; 82947; 83735; 84484; 85025; 87070; 87077; 87086; 87088; 87186; 87205; 90935; 93005; 96365; 97110; 97163; 97530; 99215; 99285; J0696; J1644; J1815; J2150; J2185; J2405; J3590; J7040

== ENCOUNTER 2022-09-21 13:51 | Emergency (ER) | payer OTHER ==
--- OUTSIDE RECORDS SUMMARY | 2022-09-21 13:59 | XMS REPORT | Continuity of Care Document ---
:1940 Author Organization [facility] t Address [address]. [address] [place] [address] Care Team Providers Name Role Phone SARIAH HART Primary Care Physician Unavailable Jacqui Pate Attending Clinician Unavailable KACIE CALDERON Attending Clinician Unavailable Vitor Attending Clinician Unavailable EM ALEX Attending Clinician Unavailable KACIE CALDERON Admitting Clinician Unavailable Vitor Admitting Clinician Unavailable EM ALEX Admitting Clinician Unavailable Payers Payer Name Policy Type Policy Number Effective Date Expiration Date S santiago [facility]/MEDICARE [id number] 2016 COMPLETE 00:00:00 [facility] MEDICARE [id number] COMPLETE (MEDICARE REPLACEMENT HMO) [facility] 53 [id number] 2021 Common ADVANTAGE WELLMED 00:00:00 [facility] AARP MEDICARE 53 [id number] 2020 Common ADVANTAGE WELLMED 00:00:00 [facility] Problems Condition Condition Condition Status Onset [...] arterioscl 00:00: Me dical erosis erosis 00 [place] Accelerate Accelerate Disease Active [facility] d d 02-12 [facility] hypertensi hypertensi 00:00: Me dical on on 00 [place] S/P S/P Disease Active [facility] radiofrequ radiofrequ 02-12 kes ency ency 00:00: Medical ablation ablation 00 Center operation operation 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[address] yue yue nce 04-07 [facility] re-entry re-entry 00:00: Medica l tachycardi tachycardi 00 nter a) a) Stroke Stroke Disease Recurre 2016-[address] (cerebrum) (cerebrum) nce 04-03 [facility] 00:00: Medical 00 Center Essential Essential Problem Com mon hypertensi hypertensi Sp chino on on - [facility] Dyslipidem Dyslipidem Problem C ommon ia ia [facility] - [facility] Postoperat Hypothyroi Problem C ommon zena dism [facility] Hypothyroi associated - CHI dism with surgical [facility] procedure [facility] Hemiplegia Hemiplegia Problem C ommon of right affecting Sp[facility] t dominant right - CHI side dominant side [facility] Problem Com mon current (current) [facility] use of use of - CHI insulin insulin [facility] Diabetic Diabetes Problem Commo n neuropathy mellitus Spir it with - CHI diabetic neuropathy [facility] [id number] Chronic Problem Commo n kidney [facility] disease, - [facility]I stage 4 (severe) [facility] [id number] Melba Problem Common tropicalis [facility] infection - [facility] [id number] 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[place] - CHI arteries [facility] extremitie Medica l s with Center intermitte nt claudicati on, left leg [id number] 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, - CHI recurrent, mild [facility] [id number] Bilateral Problem Com mon lower [facility] extremity - CHI edema [facility] [id number] Type 2 Problem Commo n 07 diabetes [facility] mellitus - CHI with diabetic [facility] chronic Medical kidney Center disease [id number] Chronic Problem 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 - CHI failure, unspecifie [facility] d heart Medical failure Center type History of 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 Social History Social Habit Start Date Stop Date Quantity Comments Source Gender identity [facility] Sexual orientation [facility] History of Tobacco Common [facility] - Use [facility] Alcohol intake 2020-08-09 2020-08-09 [facility] 00:[facility]:00 00:00:00 non-drinker of Medical Ce nter alcohol (finding) History of Social 2017-12-24 2017-12-[address] function 00:00:00 00:00:00 Hospital Tobacco use and 2017-07-24 2017-07-24 Smokeless [facility] 00:00:00 00:00:00 tobacco non-user Hospital Sex Assigned At [birth year] [facility] 00:00:00 00:00:00 Medical Center Smoking Status Start [...] mouth [facility]ukes tablet 23:38: daily. Medical 15 [place] metoprolol Yes 25mg QD Take [address] (TOPROL-XL) 6-29 by mouth Luke s 25 MG 24 hr 23:38: daily. Medi dragan tablet 15 Center insulin Yes Inject [facility] 70/30, 6-29 subcutaneo [facility]ukes insulin 23:38: usly 2 Medical NPH-insulin 15 (two) Center regular, times (HumuLIN daily 70/30) 100 before unit/mL meals. (70-30) injection cloNIDine Yes .1mg Q.[id number] Take 0.[address] HCL 6-29 [id number] mg by Lukes (CATAPRES) 23:38: 3D mouth [...] 20 MG 23:38: daily. Medical capsule 15 [place] furosemide Yes 80mg QD Take [address] (LASIX) 80 6-29 by mouth Lukes MG tablet 23:38: daily. Medica l 15 [place] metoprolol Yes 12.5mg Take 12.[address] tartrate 6-29 mg by Lukes (LOPRESSOR 23:38: mouth. Medic al ORAL) 15 [place] atorvastati Yes 80mg QD Take [address] n (LIPITOR) 6-29 by mouth Luke s 80 MG 23:38: daily. Medical tablet 15 [place] famotidine Yes 20mg QD Take [address] (PEPCID) 20 6-29 by mouth Luke s MG tablet 23:38: daily. Medica l 15 [place] GABAPENTIN Yes 200mg QD Take [address] ORAL 6-29 mg by Lukes 23:38: mouth Medical 15 daily. Center atorvastati Yes 80mg QD Take [address] n (LIPITOR) 6-29 by mouth Luke s 80 MG 23:38: daily. Medical tablet 15 [place] famotidine Yes 20mg QD Take [address] (PEPCID) 20 6-29 by mouth Luke s MG tablet 23:38: daily. Medica l 15 Center GABAPENTIN Yes 200mg QD Take [address] ORAL 6-29 mg by Lukes 23:38: mouth Medical 15 daily. [place] aspirin 81 Yes 81mg QD Take 81 [...] unit/mL meals. (70-30) injection cloNIDine Yes .1mg Q.[id number] Take 0.[address] HCL 6-29 [id number] mg by Lukes (CATAPRES) 23:38: 3D mouth [...] MG tablet 23:38: daily. Medica l 15 [place] GABAPENTIN Yes 200mg QD Take [address] ORAL 6-29 mg by Lukes 23:38: mouth Medical 15 daily. [place] aspirin 81 Yes 81mg QD Take [address] MG EC 6-29 by mouth [facility]ukes tablet 23:38: daily. Medical 15 Center metoprolol Yes 25mg QD Take [address] (TOPROL-XL) 6-29 by mouth Luke s 25 MG 24 hr 23:38: daily. Medi dragan tablet 15 [place] insulin Yes Inject [facility] 70/30, 6-29 subcutaneo Lukes insulin 23:38: usly 2 Medical NPH-insulin 15 (two) Center regular, times (HumuLIN daily 70/30) 100 before unit/mL meals. (70-30) injection cloNIDine Yes .1mg Q.[id number] Take 0.[address] HCL 6-29 [id number] mg by [facility]ukes (CATAPRES) 23:38: 3D mouth [...] 20 MG 23:38: daily. Medical capsule 15 [place] furosemide Yes 80mg QD Take [address] (LASIX) 80 6-29 by mouth Lukes MG tablet 23:38: daily. Medica l 15 [place] metoprolol Yes 12.5mg Take 12.[address] tartrate 6-29 mg by Lukes (LOPRESSOR 23:38: mouth. Medic al ORAL) 15 [place] atorvastati Yes 80mg QD Take [address] n (LIPITOR) 6-29 by mouth Luke s 80 MG 23:38: daily. Medical tablet 15 [place] famotidine Yes 20mg QD Take [address] (PEPCID) 20 6-29 by mouth Luke s MG tablet 23:38: daily. Medica l 15 [place] GABAPENTIN Yes 200mg QD Take [address] ORAL 6-29 mg by Lukes 23:38: mouth Medical 15 daily. [place] aspirin 81 Yes 81mg QD Take [address] MG EC 6-29 by mouth Lukes tablet 23:38: daily. Medical [address] [place] [address] metoprolol Yes 25mg QD Take [address] (TOPROL-XL) 6-29 by mouth Luke s 25 MG 24 hr 23:38: daily. Medi dragan tablet 15 [place] insulin Yes Inject [facility] 70/30, 6-29 subcutaneo Lukes insulin 23:38: usly 2 Medical NPH-insulin 15 (two) [place] regular, times (HumuLIN daily 70/30) 100 before unit/mL meals. (70-30) injection cloNIDine Yes .1mg Q.[id number] Take 0.[address] HCL 6-29 [id number] mg by [facility]ukes (CATAPRES) 23:38: 3D mouth [...] 80 MG 23:38: daily. Medical tablet 15 [place] famotidine Yes 20mg QD Take [address] (PEPCID) 20 6-29 by mouth Luke s MG tablet 23:38: daily. Medica l 15 [place] GABAPENTIN Yes 200mg QD Take [address] ORAL 6-29 mg by Lukes 23:38: mouth Medical 15 daily. [place] aspirin 81 Yes 81mg QD Take [address] MG EC 6-29 by mouth Lukes tablet 23:38: daily. Medical 15 [place] metoprolol Yes 25mg QD Take [address] (TOPROL-XL) 6-29 by mouth Luke s 25 MG 24 hr 23:38: daily. Medi dragan tablet 15 Center insulin Yes Inject [facility] 70/30, 6-29 subcutaneo Lukes insulin 23:38: usly 2 Medical NPH-insulin 15 (two) Center regular, times (HumuLIN daily 70/30) 100 before unit/mL meals. (70-30) injection cloNIDine Yes .1mg Q.[id number] Take 0.[address] HCL 6-29 [id number] mg by Lukes (CATAPRES) 23:38: 3D mouth [...] 20 MG 23:38: daily. Medical capsule 15 [place] furosemide Yes 80mg QD Take [address] (LASIX) 80 6-29 by mouth Lukes MG tablet 23:38: daily. Medica l 15 [place] metoprolol Yes 12.5mg Take 12.[address] tartrate 6-29 mg by Lukes (LOPRESSOR 23:38: mouth. Medic al ORAL) 15 [place] atorvastati Yes 80mg QD Take [address] n (LIPITOR) 6-29 by mouth Luke s 80 MG 23:38: daily. Medical tablet 15 [place] famotidine Yes 20mg QD Take [address] (PEPCID) 20 6-29 by mouth Luke s MG tablet 23:38: daily. Medica l 15 [place] GABAPENTIN Yes 200mg QD Take [address] ORAL 6-29 mg by Lukes 23:38: mouth Medical 15 daily. [place] aspirin 81 Yes 81mg QD Take [address] MG EC 6-29 by mouth [facility]ukes tablet 23:38: daily. Medical 15 [place] metoprolol Yes 25mg QD Take [address] (TOPROL-XL) 6-29 by mouth Luke s 25 MG 24 hr 23:38: daily. Medi dragan tablet 15 [place] insulin Yes Inject [facility] 70/30, 6-29 subcutaneo Lukes insulin 23:38: usly 2 Medical NPH-insulin 15 (two) Center regular, times (HumuLIN daily 70/30) 100 before unit/mL meals. (70-30) injection cloNIDine Yes .1mg Q.[id number] Take 0.[address] HCL 6-29 [id number] mg by [facility]ukes (CATAPRES) 23:38: 3D mouth [...] 20 MG 23:38: daily. Medical capsule 15 [place] furosemide Yes 80mg QD Take [address] (LASIX) 80 6-29 by mouth Lukes MG tablet 23:38: daily. Medica l 15 [place] metoprolol Yes 12.5mg Take 12.[address] tartrate 6-29 mg by Lukes (LOPRESSOR 23:38: mouth. Medic al ORAL) 15 [place] atorvastati Yes 80mg QD Take [address] n (LIPITOR) 6-29 by mouth Luke s 80 MG 23:38: daily. Medical tablet 15 [place] famotidine Yes 20mg QD Take [address] (PEPCID) 20 6-29 by mouth Luke s MG tablet 23:38: daily. Medica l 15 [place] GABAPENTIN Yes 200mg QD Take [address] ORAL 6-29 mg by Lukes 23:38: mouth Medical 15 daily. [place] aspirin 81 Yes 81mg QD Take [address] MG EC 6-29 by mouth Lukes tablet 23:38: daily. Medical 15 [place] metoprolol Yes 25mg QD Take [address] (TOPROL-XL) 6-29 by mouth Luke s 25 MG 24 hr 23:38: daily. Medi dragan tablet 15 [place] insulin Yes Inject [facility] 70/30, 6-29 subcutaneo Lukes insulin 23:38: usly 2 Medical NPH-insulin 15 (two) Center regular, times (HumuLIN daily 70/30) 100 before unit/mL meals. (70-30) injection cloNIDine Yes .1mg Q.[id number] Take 0.[address] HCL 6-29 [id number] mg by Lukes (CATAPRES) 23:38: 3D mouth [...] 20 MG 23:38: daily. Medical capsule 15 [place] furosemide Yes 80mg QD Take [address] (LASIX) 80 6-29 by mouth Lukes MG tablet 23:38: daily. Medica l 15 [place] metoprolol Yes 12.5mg Take 12.[address] tartrate 6-29 mg by Lukes (LOPRESSOR 23:38: mouth. Medic al ORAL) 15 [place] atorvastati Yes 80mg QD Take [address] n (LIPITOR) 6-29 by mouth Luke s 80 MG 23:38: daily. Medical tablet 15 [place] famotidine Yes 20mg QD Take [address] (PEPCID) 20 6-29 by mouth Luke s MG tablet 23:38: daily. Medica l 15 [place] GABAPENTIN Yes 200mg QD Take [address] ORAL 6-29 mg by Lukes 23:38: mouth Medical 15 daily. [place] aspirin 81 Yes 81mg QD Take [address] MG EC 6-29 by mouth Lukes tablet 23:38: daily. Medical 15 [place] metoprolol Yes 25mg QD Take [address] (TOPROL-XL) 6-29 by mouth Luke s 25 MG 24 hr 23:38: daily. Medi dragan tablet 15 Center insulin Yes Inject [facility] 70/30, 6-29 subcutaneo Lukes insulin 23:38: usly 2 Medical NPH-insulin 15 (two) Center regular, times (HumuLIN daily 70/30) 100 before unit/mL meals. (70-30) injection cloNIDine Yes .1mg Q.[id number] Take 0.[address] HCL 6-29 [id number] mg by Lukes (CATAPRES) 23:38: 3D mouth [...] 20 MG 23:38: daily. Medical capsule 15 [place] furosemide Yes 80mg QD Take [address] (LASIX) 80 6-29 by mouth Lukes MG tablet 23:38: daily. Medica l 15 [place] metoprolol Yes 12.5mg Take 12.[address] tartrate 6-29 mg by Lukes (LOPRESSOR 23:38: mouth. Medic al ORAL) 15 [place] atorvastati Yes 80mg QD Take [address] n (LIPITOR) 6-29 by mouth Luke s 80 MG 23:38: daily. Medical tablet 15 [place] famotidine Yes 20mg QD Take [address] (PEPCID) 20 6-29 by mouth Luke s MG tablet 23:38: daily. Medica l 15 [place] GABAPENTIN Yes 200mg QD Take [address] ORAL 6-29 mg by Lukes 23:38: mouth Medical 15 daily. [place] aspirin 81 Yes 81mg QD Take 81 [...] unit/mL meals. (70-30) injection cloNIDine Yes .1mg Q.[id number] Take 0.[address] HCL 6-29 [id number] mg by [facility]ukes (CATAPRES) 23:38: 3D mouth [...] 20 MG 23:38: daily. Medical capsule 15 [place] furosemide Yes 80mg QD Take [address] (LASIX) 80 6-29 by mouth Lukes MG tablet 23:38: daily. Medica l 15 [place] metoprolol Yes 12.5mg Take 12.[address] tartrate 6-29 mg by Lukes (LOPRESSOR 23:38: mouth. Medic al ORAL) 15 [place] atorvastati Yes 80mg QD Take [address] n (LIPITOR) 6-29 by mouth Luke s 80 MG 23:38: daily. Medical tablet 15 [place] famotidine Yes 20mg QD Take [address] (PEPCID) 20 6-29 by mouth Luke s MG tablet 23:38: daily. Medica l 15 [place] GABAPENTIN Yes 200mg QD Take [address] ORAL 6-29 mg by Lukes 23:38: mouth Medical 15 daily. Center aspirin 81 Yes 81mg QD Take [address] MG EC 6-29 by mouth Lukes tablet 23:38: daily. Medical 15 [place] aspirin 81 0 Yes 81mg QD Take [address] MG EC 6-29 by mouth Lukes tablet 23:38: daily. [facility] 15 [place] metoprolol Yes 25mg QD Take [address] (TOPROL-XL) 6-29 by mouth Luke s 25 MG 24 hr 23:38: daily. Medi dragan tablet 15 [place] insulin Yes Inject [facility] 70/30, 6-29 subcutaneo Lukes insulin 23:38: usly 2 Medical NPH-insulin 15 (two) Center regular, times (HumuLIN daily 70/30) 100 before unit/mL meals. (70-30) injection cloNIDine Yes .1mg Q.[id number] Take 0.[address] HCL 6-29 [id number] mg by [facility]ukes (CATAPRES) 23:38: 3D mouth [...] 20 MG 23:38: daily. Medical capsule 15 [place] metoprolol Yes 25mg QD Take [address] (TOPROL-XL) 6-29 by mouth Luke s 25 MG 24 hr 23:38: daily. Medi dragan tablet 15 [place] furosemide Yes 80mg QD Take [address] (LASIX) 80 6-29 by mouth Lukes MG tablet 23:38: daily. Medica l 15 [place] metoprolol Yes 12.5mg Take 12.[address] [...] MG tablet 23:38: daily. Medica l 15 [place] GABAPENTIN Yes 200mg QD Take [address] ORAL 6-29 mg by Lukes 23:38: mouth Medical 15 daily. [place] insulin Yes Inject [facility] 70/30, 6-29 [...] hr 23:38: daily. Medi dragan tablet 15 [place] insulin Yes Inject [facility] 70/30, 6-29 subcutaneo Lukes insulin 23:38: usly 2 Medical NPH-insulin 15 (two) Center regular, times (HumuLIN daily 70/30) 100 before unit/mL meals. (70-30) injection cloNIDine Yes .1mg Q.[id number] Take 0.[address] HCL 6-29 [id number] mg by Lukes (CATAPRES) 23:38: 3D mouth [...] MG tablet 23:38: daily. Medica l 15 [place] metoprolol Yes 12.5mg Take 12.[address] tartrate 6-29 mg by Lukes (LOPRESSOR 23:38: mouth. Medic al ORAL) 15 Center cloNIDine Yes .1mg Q.[id number] Take 0.[address] HCL 6-29 [id number] mg by Lukes (CATAPRES) 23:38: 3D mouth 3 Medi dragan 0.1 MG 15 (three) Center tablet times daily. atorvastati Yes 80mg QD Take [address] n (LIPITOR) 6-29 by mouth Luke s 80 MG 23:38: daily. Medical tablet 15 [place] famotidine Yes 20mg QD Take [address] (PEPCID) 20 6-29 by mouth Luke s MG tablet 23:38: daily. Medica l 15 [place] GABAPENTIN Yes 200mg QD Take [address] ORAL 6-29 mg by Lukes 23:38: mouth Medical 15 daily. [place] apixaban Yes 5mg Q.5D Take [address] (ELIQUIS) 5 6-29 by mouth 2 Bev kes mg Tab 23:38: (two) Medical tablet 15 times Center daily. aspirin 81 Yes 81mg QD Take [address] MG EC 6-29 by mouth Lukes tablet 23:38: daily. Medical 15 [place] metoprolol Yes 25mg QD Take [address] (TOPROL-XL) 6-29 by mouth Luke s 25 MG 24 hr 23:38: daily. Medi dragan tablet 15 Center levothyroxi Yes 175ug Take [address] ne 6-29 mcg by Lukes (SYNTHROID, 23:38: mouth Medic al LEVOTHROID) 15 Every Center 175 MCG morning on tablet an empty stomach. insulin Yes Inject [facility] 70/30, 6-29 subcutaneo Lukes insulin 23:38: usly 2 Medical NPH-insulin 15 (two) Center regular, times (HumuLIN daily 70/30) 100 before unit/mL meals. (70-30) injection cloNIDine Yes .1mg Q.[id number] Take 0.[address] HCL 6-29 [id number] mg by [facility]ukes (CATAPRES) 23:38: 3D mouth [...] 20 MG 23:38: daily. Medical capsule 15 [place] furosemide Yes 80mg QD Take [address] (LASIX) 80 6-29 by mouth Lukes MG tablet 23:38: daily. Medica l 15 [place] metoprolol Yes 12.5mg Take 12.[address] tartrate 6-29 mg by Lukes (LOPRESSOR 23:38: mouth. Medic al ORAL) 15 [place] atorvastati Yes 80mg QD Take [address] n (LIPITOR) 6-29 by mouth Luke s 80 MG 23:38: daily. Medical tablet 15 Center famotidine Yes 20mg QD Take [address] (PEPCID) 20 6-29 by mouth Luke s MG tablet 23:38: daily. Medica l 15 [place] DULoxetine Yes 20mg QD Take [address] (CYMBALTA) 6-29 by mouth Lukes 20 MG 23:38: daily. Medical capsule 15 [place] GABAPENTIN Yes 200mg QD Take [address] ORAL 6-29 mg by Lukes 23:38: mouth Medical 15 daily. [place] furosemide Yes 80mg QD Take [address] (LASIX) 80 6-29 by mouth Lukes MG tablet 23:38: daily. Medica l 15 [place] aspirin 81 Yes 81mg QD Take [address] MG EC 6-29 by mouth Lukes tablet 23:38: daily. Medical 15 [place] metoprolol Yes 25mg QD Take [address] (TOPROL-XL) 6-29 by mouth Luke s 25 MG 24 hr 23:38: daily. Medi dragan tablet 15 [place] insulin Yes Inject [facility] 70/30, 6-29 subcutaneo Lukes insulin 23:38: usly 2 Medical NPH-insulin 15 (two) Center regular, times (HumuLIN daily 70/30) 100 before unit/mL meals. (70-30) injection metoprolol Yes 12.5mg Take 12.[address] tartrate 6-29 mg by Lukes (LOPRESSOR 23:38: mouth. Medic al ORAL) 15 [place] cloNIDine Yes .1mg Q.[id number] Take 0.[address] HCL 6-29 [id number] mg by Lukes (CATAPRES) 23:38: 3D mouth [...] 20 MG 23:38: daily. Medical capsule 15 [place] furosemide Yes 80mg QD Take [address] (LASIX) 80 6-29 by mouth Lukes MG tablet 23:38: daily. Medica l 15 [place] metoprolol Yes 12.5mg Take 12.[address] tartrate 6-29 mg by Lukes (LOPRESSOR 23:38: mouth. Medic al ORAL) 15 [place] atorvastati Yes 80mg QD Take [address] n (LIPITOR) 6-29 by mouth Luke s 80 MG 23:38: daily. Medical tablet 15 [place] famotidine Yes 20mg QD Take [address] (PEPCID) 20 6-29 by mouth Luke s MG tablet 23:38: daily. Medica l 15 [place] GABAPENTIN Yes 200mg QD Take [address] ORAL 6-29 mg by Lukes 23:38: mouth Medical 15 daily. [place] atorvastati Yes 80mg QD Take [address] n (LIPITOR) 6-29 by mouth Luke s 80 MG 23:38: daily. Medical tablet 15 [place] famotidine Yes 20mg QD Take [address] (PEPCID) 20 6-29 by mouth Luke s MG tablet 23:38: daily. Medica l 15 [place] aspirin 81 Yes 81mg QD Take [address] MG EC 6-29 by mouth [facility]ukes tablet 23:38: daily. Medical 15 [place] metoprolol Yes 25mg QD Take [address] (TOPROL-XL) 6-29 by mouth Luke s 25 MG 24 hr 23:38: daily. Medi dragan tablet 15 [place] insulin Yes Inject [facility] 70/30, 6-29 subcutaneo Lukes insulin 23:38: usly 2 Medical NPH-insulin 15 (two) [place] regular, times (HumuLIN daily 70/30) 100 before unit/mL meals. (70-30) injection cloNIDine Yes .1mg Q.[id number] Take 0.[address] HCL 6-29 [id number] mg by [facility]ukes (CATAPRES) 23:38: 3D mouth 3 Medi dragan 0.1 MG 15 (three) Center tablet times daily. apixaban Yes 5mg Q.5D Take [address] (ELIQUIS) 5 6-29 by mouth 2 [facility]ev kes mg Tab 23:38: (two) Medical tablet 15 times Center daily. GABAPENTIN Yes 200mg QD Take [address] ORAL 6-29 mg by [facility] 23:38: mouth Medical 15 daily. [place] levothyroxi Yes 175ug Take [address] ne 6-29 mcg by Lukes (SYNTHROID, 23:38: mouth Medic al LEVOTHROID) 15 Every Center 175 MCG morning on tablet an empty stomach. DULoxetine Yes 20mg QD Take [address] (CYMBALTA) 6-29 by mouth [facility]ukes 20 MG 23:38: daily. Medical capsule 15 [place] furosemide Yes 80mg QD Take [address] (LASIX) 80 6-29 by mouth Lukes MG tablet 23:38: daily. Medica l 15 [place] metoprolol Yes 12.5mg Take 12.[address] tartrate 6-29 mg by [facility]ukes (LOPRESSOR 23:38: mouth. Medic al ORAL) 15 [place] atorvastati Yes 80mg QD Take [address] n (LIPITOR) 6-29 by mouth Luke s 80 MG 23:38: daily. Medical tablet 15 [place] famotidine Yes 20mg QD Take [address] (PEPCID) 20 6-29 by mouth Luke s MG tablet 23:38: daily. Medica l 15 [place] GABAPENTIN Yes 200mg QD Take [address] ORAL 6-29 mg by [facility]ukes 23:38: mouth Medical 15 daily. [place] aspirin 81 Yes 81mg QD Take [address] MG EC 6-29 by mouth [facility] tablet 23:38: daily. Medical 15 [place] metoprolol Yes 25mg QD Take [address] (TOPROL-XL) 6-29 by mouth Luke s 25 MG 24 hr 23:38: daily. Medi dragan tablet 15 [place] insulin Yes Inject [facility] 70/30, 6-29 subcutaneo Lukes insulin 23:38: usly 2 Medical NPH-insulin 15 (two) Center regular, times (HumuLIN daily 70/30) 100 before unit/mL meals. (70-30) injection cloNIDine Yes .1mg Q.[id number] Take 0.[address] HCL 6-29 [id number] mg by [facility]ukes (CATAPRES) 23:38: 3D mouth [...] 20 MG 23:38: daily. Medical capsule 15 [place] furosemide Yes 80mg QD Take [address] (LASIX) 80 6-29 by mouth Lukes MG tablet 23:38: daily. Medica l 15 [place] metoprolol Yes 12.5mg Take 12.[address] tartrate 6-29 mg by Lukes (LOPRESSOR 23:38: mouth. Medic al ORAL) 15 [place] atorvastati Yes 80mg QD Take [address] n (LIPITOR) 6-29 by mouth Luke s 80 MG 23:38: daily. Medical tablet 15 [place] famotidine Yes 20mg QD Take [address] (PEPCID) 20 6-29 by mouth Luke s MG tablet 23:38: daily. Medica l 15 [place] GABAPENTIN Yes 200mg QD Take [address] ORAL 6-29 mg by [facility]ukes 23:38: mouth Medical 15 daily. [place] aspirin 81 Yes 81mg QD Take [address] MG EC 6-29 by mouth [facility] tablet 23:38: daily. Medical 15 [place] metoprolol Yes 25mg QD Take [address] (TOPROL-XL) 6-29 by mouth Luke s 25 MG 24 hr 23:38: daily. Medi dragan tablet 15 [place] insulin Yes Inject [facility] 70/30, 6-29 subcutaneo [facility]ukes insulin 23:38: usly 2 Medical NPH-insulin 15 (two) [place] regular, times (HumuLIN daily 70/30) 100 before unit/mL meals. (70-30) injection cloNIDine Yes .1mg Q.[id number] Take 0.[address] HCL 6-29 [id number] mg by [facility]ukes (CATAPRES) 23:38: 3D mouth [...] 20 MG 23:38: daily. Medical capsule 15 [place] furosemide Yes 80mg QD Take [address] (LASIX) 80 6-29 by mouth Lukes MG tablet 23:38: daily. Medica l 15 [place] metoprolol Yes 12.5mg Take 12.[address] tartrate 6-29 mg by [facility]ukes (LOPRESSOR 23:38: mouth. Medic al ORAL) 15 [place] atorvastati Yes 80mg QD Take [address] n (LIPITOR) 6-29 by mouth Luke s 80 MG 23:38: daily. Medical tablet 15 [place] famotidine Yes 20mg QD Take [address] (PEPCID) 20 6-29 by mouth Luke s MG tablet 23:38: daily. Medica l 15 [place] GABAPENTIN Yes 200mg QD Take [address] ORAL 6-29 mg by [facility] 23:38: mouth Medical 15 daily. [place] aspirin 81 Yes 81mg QD Take [address] MG EC 6-29 by mouth [facility] tablet 23:38: daily. Medical 15 Center metoprolol Yes 25mg QD Take [address] (TOPROL-XL) 6-29 by mouth Luke s 25 MG 24 hr 23:38: daily. Medi dragan tablet 15 [place] insulin Yes Inject [facility] 70/30, 6-29 subcutaneo [facility] insulin 23:38: usly 2 Medical NPH-insulin 15 (two) Center regular, times (HumuLIN daily 70/30) 100 before unit/mL meals. (70-30) injection cloNIDine Yes .1mg Q.[id number] Take 0.[address] HCL 6-29 [id number] mg by [facility] (CATAPRES) 23:38: 3D mouth [...] ORAL) 15 Center BD Insulin BD Insulin No TID BD Insulin Syr Syr 15 Syr Ultrafine Ultrafine 00:00: Ultrafine II 31G X II 31G X 00 II 31G X 5/16" 0.5 5/16" 0.5 5/16" 0.5 ML ML ML BD Insulin BD Insulin 0 No TID BD Insulin Syr Syr -15 Syr Ultrafine Ultrafine 00:00: Ultrafine II 31G X II 31G X 00 II 31G X 5/16" 0.5 5/16" 0.5 5/16" 0.5 ML ML ML BD Insulin BD Insulin 0 No TID BD Insulin Syr Syr -15 [...] 0.5 5/16" 0.5 ML ML ML HUMULIN 0 Yes INJECT 15 Metho di 70/30 U-100 6-[address] INSULIN 100 00:00: [facility] THE [facility] unit/mL 00 SKIN TID l (70-30) BEFORE injection MEALS HUMULIN 0 Yes INJECT 15 Metho di 70/30 U-100 [...] TID l (70-30) BEFORE injection MEALS HUMULIN 0 Yes INJECT 15 Metho di 70/30 U-100 [...] MG 00:00: [facility] capsule 00 l atorvastati 2017-0 Yes TK 1 [...] MG 00:00: [facility]osp[facility] capsule 00 l atorvastati 2017-0 Yes TK 1 [...] MG tablet 00:00: [facility] 00 l famotidine 2017-0 Yes TK 1 [...] [facility] OVER 65 OVER 65 10:58:00 - [facility] FLUZONE HIGH DOSE FLUZONE HIGH DOSE 2021-03-07 [facility]pleted [facility] OVER 65 10:58:00 - [facility] FLUZONE HIGH DOSE FLUZONE HIGH DOSE 2021-03-07 Completed [facility] OVER 65 OVER 65 10:58:00 - [facility] FLUZONE HIGH DOSE FLUZONE HIGH DOSE 2021-03-07 Completed [facility] OVER 65 OVER 65 10:58:00 - [facility] FLUZONE HIGH DOSE FLUZONE HIGH DOSE 2021-03-07 Completed [facility] OVER 65 OVER 65 10:58:00 [facility] FLUZONE HIGH DOSE FLUZONE HIGH DOSE 2021-03-07 Completed [facility] OVER 65 OVER 65 10:58:00 - [facility] FLUZONE HIGH DOSE FLUZONE HIGH DOSE 2021-03-07 Completed [facility] OVER 65 OVER 65 10:58:00 - [facility] FLUZONE HIGH DOSE FLUZONE HIGH DOSE 2021-03-07 Completed [facility] OVER 65 OVER 65 10:58:00 - [facility] FLUZONE HIGH DOSE FLUZONE HIGH DOSE 2021-03-07 Completed [facility] OVER 65 OVER 65 10:58:00 - [facility] FLUZONE HIGH DOSE FLUZONE HIGH DOSE 2021-03-07 Completed [facility] OVER 65 OVER 65 10:58:00 - [facility] FLUZONE HIGH DOSE FLUZONE HIGH DOSE 2021-03-07 Completed [facility] OVER 65 OVER 65 10:58:00 - [facility] FLUZONE HIGH DOSE FLUZONE HIGH DOSE 2021-03-07 Completed [facility] OVER 65 OVER 65 10:58:00 - [facility] FLUZONE HIGH DOSE FLUZONE HIGH DOSE 2021-03-07 Completed [facility] OVER 65 OVER 65 10:58:00 - [facility] FLUZONE HIGH DOSE FLUZONE HIGH DOSE 2021-03-07 Completed [facility] OVER 65 OVER 65 10:58:00 - [facility] FLUZONE HIGH DOSE FLUZONE HIGH DOSE 2021-03-07 Completed [facility] OVER 65 OVER 65 10:58:00 [facility] FLUZONE HIGH DOSE FLUZONE HIGH DOSE 2021-03-07 Completed [facility] OVER 65 OVER 65 10:58:00 [facility] COVID-19 Vaccine COVID-19 Vaccine 2020-04-14 [facility]pleted [facility] (D[facility]ry) 13:50:00 [facility] COVID-19 Vaccine COVID-19 Vaccine 2020-04-14 Completed [facility] (Dmitry) 13:50:00 [facility] COVID-19 Vaccine COVID-19 Vaccine 2020-04-14 Completed [facility] (Dmitry) 13:50:00 [facility] COVID-19 Vaccine COVID-19 Vaccine 2020-04-14 Completed [facility] (Dmitry) 13:50:00 - [facility] COVID-19 Vaccine COVID-19 Vaccine 2020-04-14 Completed [facility] (Dmitry) 13:50:00 - [facility] COVID-19 Vaccine COVID-19 Vaccine 2020-04-14 Completed [facility] (Dmitry) 13:50:00 - [facility] COVID-19 Vaccine COVID-19 Vaccine 2020-04-14 Completed [facility] (Dmitry) 13:50:00 - [facility] COVID-19 Vaccine COVID-19 Vaccine 2020-04-14 Completed [facility] (Dmitry) 13:50:00 - [facility] COVID-19 Vaccine COVID-19 Vaccine 2020-04-14 Completed [facility] (Dmitry) 13:50:00 - [facility] COVID-19 Vaccine COVID-19 Vaccine 2020-04-14 Completed [facility] (Dmitry) 13:50:00 - [facility] COVID-19 Vaccine COVID-19 Vaccine 2020-04-14 Completed [facility] (Dmitry) 13:50:00 - [facility] COVID-19 Vaccine COVID-19 Vaccine 2020-04-14 Completed [facility] (Dmitry) 13:50:00 - [facility] COVID-19 Vaccine COVID-19 Vaccine 2020-04-14 Completed [facility] (Dmitry) 13:50:00 - [facility] COVID-19 Vaccine COVID-19 Vaccine 2020-04-14 Completed [facility] (Dmitry) 13:50:00 - [facility] COVID-19 Vaccine COVID-19 Vaccine 2020-04-14 Completed [facility] (D[facility]ry) 13:50:00 [facility] COVID-19 Vaccine COVID-19 Vaccine 2020-04-14 Completed [facility] (D[facility]ry) 13:50:00 [facility] Influenza Three-TIV 2017-01-31 [facility] Vital Signs Vital Name Observation Time Observation Value Comments Source HEIGHT 2020-08-08 13:02:00 165.1 cm WEIGHT 2020-08-08 13:02:00 104.327 kg BP Diastolic 2022-05-28 00:00:00 72 mm[Hg] [facility] Height 2022-05-28 00:00:00 65 [in_i] [facility] BMI (Body Mass Index) 2022-05-28 00:00:00 41.6 kg/m2 [facility] BP Systolic 2022-05-28 00:00:00 131 mm[Hg] [facility] Body Weight 2022-05-28 00:00:00 4000 [oz_av] [facility] height 2022-01-01 13:20:00 64 [in_i] [facility] weight 2022-01-01 13:20:00 230 [lb_av] [facility] temperature 2022-01-01 13:20:00 97.4 [degF] [facility] bmi 2022-01-01 13:20:00 39.48 kg/m2 [facility] oximetry 2022-01-01 13:20:00 98 % [facility] respiratory rate 2022-01-01 13:20:00 17 /min Comm on [facility] blood pressure 2022-01-01 13:20:00 132 mm[Hg] Common [facility] - systolic [facility] blood pressure 2022-01-01 13:20:00 80 mm[Hg] Common [facility] - diastolic [facility] height 2021-10-02 14:20:00 64 [in_i] Common [facility] weight 2021-10-02 14:20:00 230 [lb_av] [facility] temperature 2021-10-02 14:20:00 97.9 [degF] [facility] bmi 2021-10-02 14:20:00 39.48 kg/m2 [facility] oximetry 2021-10-02 14:20:00 97 % [facility] respiratory rate 2021-10-02 14:20:00 18 /min Comm on [facility] blood pressure 2021-10-02 14:20:00 138 mm[Hg] Common [facility] - systolic [facility] blood pressure 2021-10-02 14:20:00 86 mm[Hg] Common [facility] - diastolic [facility] height 2021-07-19 13:40:00 64 [in_i] [facility] weight 2021-07-19 13:40:00 230 [lb_av] [facility] temperature 2021-07-19 13:40:00 97.9 [degF] [facility] bmi 2021-07-19 13:40:00 39.48 kg/m2 [facility] oximetry 2021-07-19 13:40:00 97 % Common [facility] respiratory rate 2021-07-19 13:40:00 16 /min Comm on [facility] blood pressure 2021-07-19 13:40:00 161 mm[Hg] Common [facility] - systolic [facility] blood pressure 2021-07-19 13:40:00 90 mm[Hg] Common [facility] - diastolic [facility] height 2021-06-05 13:20:00 64 [in_i] Common [facility] weight 2021-06-05 13:20:00 230 [lb_av] [facility] temperature 2021-06-05 13:20:00 97.6 [degF] [facility] bmi 2021-06-05 13:20:00 39.48 kg/m2 [facility] oximetry 2021-06-05 13:20:00 96 % [facility] respiratory rate 2021-06-05 13:20:00 18 /min Comm on [facility] blood pressure 2021-06-05 13:20:00 142 mm[Hg] [facility] - [facility] blood pressure 2021-06-05 13:20:00 70 mm[Hg] [facility] - [facility] height 2021-04-27 10:40:00 64 [in_i] [facility] weight 2021-04-27 10:40:00 230 [lb_av] [facility] temperature 2021-04-27 10:40:00 97.7 [degF] [facility] bmi 2021-04-27 10:40:00 39.48 kg/m2 [facility] oximetry 2021-04-27 10:40:00 95 % [facility] respiratory rate 2021-04-27 10:40:00 18 /min Comm on [facility] blood pressure 2021-04-27 10:40:00 134 mm[Hg] [facility] - systolic [facility] blood pressure 2021-04-27 10:40:00 60 mm[Hg] [facility] - diastolic [facility] blood pressure 2021-03-07 09:40:00 132 mm[Hg] [facility] - systolic [facility] blood pressure 2021-03-07 09:40:00 80 mm[Hg] [facility] - diastolic [facility] height 2021-03-07 09:40:00 64 [in_i] [facility] weight 2021-03-07 09:40:00 230 [lb_av] [facility] temperature 2021-03-07 09:40:00 98.1 [degF] [facility] bmi 2021-03-07 09:40:00 39.48 kg/m2 [facility] oximetry 2021-03-07 09:40:00 98 % [facility] respiratory rate 2021-03-07 09:40:00 16 /min Comm on [facility] height 2021-03-07 10:20:00 64 [in_i] [facility] weight 2021-03-07 10:20:00 230 [lb_av] [facility] temperature 2021-03-07 10:20:00 98.1 [degF] [facility] bmi 2021-03-07 10:20:00 39.48 kg/m2 [facility] oximetry 2021-03-07 10:20:00 98 % [facility] blood pressure 2021-03-07 10:20:00 132 mm[Hg] [facility] - systolic [facility] blood pressure 2021-03-07 10:20:00 80 mm[Hg] [facility] - diastolic [facility] HEIGHT 2020-08-08 13:02:00 165.1 cm WEIGHT [...] [facility] Ended[facility] [[facility] = INFLUENZA VACCINE (Season Ended)] Future Scheduled Test 2022-10-[address] [facility] 00:00:00 (Season Ended) [[facility] = INFLUENZA VACCINE (Season Ended)] Future Scheduled Test 2022-10-[address]ZA VACC[address] [facility] 00:00:00 (Season Ended) [[facility] = INFLUENZA VACCINE (Season Ended)] Future Scheduled Test 2022-10-[address]FL[address]ZA VACC[address] [facility] 00:00:00 (Season Ended) [[facility] = INFLUENZA VACCINE (Season Ended)] Future Scheduled Test 2022-10-[address] [facility] 00:00:00 (Season Ended) [[facility] = INFLUENZA VACCINE (Season Ended)] Future Scheduled Test 2022-10-[address]FL[address]ZA VACC[address] [facility] 00:00:00 (Season Ended) [[facility] = INFLUENZA VACCINE (Season Ended)] Future Scheduled [...] Influenza Vaccine (#1)] Future Scheduled Test 2022-10-11 Influenza Vacc[address] [facility] 00:00:00 (#1) [code = [facility] Influenza Vaccine (#1)] Future Scheduled Test 2022-10-11 Influenza Vaccine [facility] 00:00:00 (#1) [code = [facility] Center Influenza Vaccine (#1)] Future Scheduled Test 2022-10-11 Influenza Vaccine [facility] 00:00:00 (#1) [code = Medical Center Influenza Vaccine (#1)] Future Scheduled Test 2022-10-11 Influenza Vaccine [facility] 00:00:00 (#1) [code = [facility] Center Influenza Vaccine (#1)] Future Scheduled Test 2022-10-11 Influenza Vaccine [facility] 00:00:00 (#1) [code = [facility] Center Influenza Vaccine (#1)] Future Scheduled Test 2022-09-11 COVID-19 VACCINE (#1) [facility] 16:14:15 [code = COVID-19 VACCINE (#1)] Future Scheduled Test 2022-09-11 SHINGLES VACCINES (1 [facility] 16:14:15 of 2) [code = SHINGLES VACCINES (1 of 2)] Future Scheduled Test 2022-09-11 65+ PNEUMOCOCCAL Me [facility] 16:14:15 VACCINE (1 - PCV) [code = 65+ PNEUMOCOCCAL VACCINE (1 - PCV)] Future Scheduled Test 2022-09-11 INFLUENZA VACCINE [facility] 16:14:15 [code = INFLUENZA VACCINE] Future Scheduled Test 2022-09-11 COVID-19 VACCINE (#1) [facility] 16:14:15 [code = COVID-19 VACCINE (#1)] Future Scheduled Test 2022-09-11 SHINGLES VACCINES (1 [facility] 16:14:15 of 2) [code = SHINGLES VACCINES (1 of 2)] Future Scheduled Test 2022-09-11 65+ PNEUMOCOCCAL [facility] 16:14:15 VACCINE (1 - PCV) [code = 65+ PNEUMOCOCCAL VACCINE (1 - PCV)] Future Scheduled Test 2022-09-11 INFLUENZA VACCINE [facility] 16:14:15 [code = INFLUENZA VACCINE] Future Scheduled Test 2022-09-11 COVID-19 VACCINE (#1) [facility] 16:14:15 [code = COVID-19 VACCINE (#1)] Future Scheduled Test 2022-09-11 SHINGLES VACCINES (1 [facility] 16:14:15 of 2) [code = SHINGLES VACCINES (1 of 2)] Future Scheduled Test 2022-09-11 65+ PNEUMOCOCCAL [facility] 16:14:15 VACCINE (1 - PCV) [code = 65+ PNEUMOCOCCAL VACCINE (1 - PCV)] Future Scheduled Test 2022-09-11 INFLUENZA VACCINE [facility] 16:14:15 [code = INFLUENZA VACCINE] Future Scheduled Test 2022-08-01 COVID-19 VACCINE (#1) [facility] 09:52:10 [code = COVID-19 VACCINE (#1)] Future Scheduled Test 2022-08-01 SHINGLES VACCINES (1 [facility] 09:52:10 of 2) [code = SHINGLES VACCINES (1 of 2)] Future Scheduled Test 2022-08-01 65+ PNEUMOCOCCAL [facility] 09:52:10 VACCINE (1 - PCV) [code = 65+ PNEUMOCOCCAL VACCINE (1 - PCV)] Future Scheduled Test 2022-08-01 INFLUENZA VACCINE [facility] 09:52:10 [code = INFLUENZA VACCINE] Future Scheduled Test 2022-08-01 COVID-19 VACCINE (#1) [facility] 09:52:10 [code = COVID-19 VACCINE (#1)] Future Scheduled Test 2022-08-01 SHINGLES VACCINES (1 [facility] 09:52:10 of 2) [code = SHINGLES VACCINES (1 of 2)] Future Scheduled Test 2022-08-01 65+ PNEUMOCOCCAL [facility] 09:52:10 VACCINE (1 - PCV) [code = 65+ PNEUMOCOCCAL VACCINE (1 - PCV)] Future Scheduled Test 2022-08-01 INFLUENZA VACCINE [facility] 09:52:10 [code = INFLUENZA VACCINE] Future Scheduled Test 2022-08-01 COVID-19 VACCINE (#1) [facility] 09:52:10 [code = COVID-19 VACCINE (#1)] Future Scheduled Test 2022-08-01 SHINGLES VACCINES (1 [facility] 09:52:10 of 2) [code = SHINGLES VACCINES (1 of 2)] Future Scheduled Test 2022-08-01 65+ PNEUMOCOCCAL [facility] 09:52:10 VACCINE (1 - PCV) [code = 65+ PNEUMOCOCCAL VACCINE (1 - PCV)] Future Scheduled Test 2022-08-01 INFLUENZA VACCINE [facility] 09:52:10 [code = INFLUENZA VACCINE] Future Scheduled Test 2022-06-25 COVID-19 VACCINE (#1) [facility] 15:49:38 [code = COVID-19 VACCINE (#1)] Future Scheduled Test 2022-06-25 SHINGLES VACCINES (1 [facility] 15:49:38 of 2) [code = SHINGLES VACCINES (1 of 2)] Future Scheduled Test 2022-06-25 65+ PNEUMOCOCCAL [facility] 15:49:38 VACCINE (1 - PCV) [code = 65+ PNEUMOCOCCAL VACCINE (1 - PCV)] Future Scheduled Test 2022-06-25 INFLUENZA VACCINE [facility] 15:49:38 [code = INFLUENZA VACCINE] Future Scheduled Test 2022-06-25 COVID-19 VACCINE (#1) [facility] 15:49:38 [code = COVID-19 VACCINE (#1)] Future Scheduled Test 2022-06-25 SHINGLES VACCINES (1 [facility] 15:49:38 of 2) [code = SHINGLES VACCINES (1 of 2)] Future Scheduled Test 2022-06-25 65+ PNEUMOCOCCAL [facility] 15:49:38 VACCINE (1 - PCV) [code = 65+ PNEUMOCOCCAL VACCINE (1 - PCV)] Future Scheduled Test 2022-06-25 INFLUENZA VACCINE [facility] 15:49:38 [code = INFLUENZA VACCINE] Future Scheduled Test 2022-06-25 COVID-19 VACCINE (#1) [facility] 15:49:38 [code = COVID-19 VACCINE (#1)] Future Scheduled Test 2022-06-25 SHINGLES VACCINES (1 [facility] 15:49:38 of 2) [code = SHINGLES VACCINES (1 of 2)] Future Scheduled Test 2022-06-25 65+ PNEUMOCOCCAL [facility] 15:49:38 VACCINE (1 - PCV) [code = 65+ PNEUMOCOCCAL VACCINE (1 - PCV)] Future Scheduled Test 2022-06-25 INFLUENZA VACCINE [facility] 15:49:38 [code = INFLUENZA VACCINE] Future Scheduled Test 2022-06-25 COVID-19 VACCINE (#1) [facility] 15:49:38 [code = COVID-19 VACCINE (#1)] Future Scheduled Test 2022-06-25 SHINGLES VACCINES (1 [facility] 15:49:38 of 2) [code = SHINGLES VACCINES (1 of 2)] Future Scheduled Test 2022-06-25 65+ PNEUMOCOCCAL [facility] 15:49:38 VACCINE (1 - PCV) [code = 65+ PNEUMOCOCCAL VACCINE (1 - PCV)] Future Scheduled Test 2022-06-25 INFLUENZA VACCINE [facility] 15:49:38 [code = INFLUENZA VACCINE] Future Scheduled Test 2022-05-29 COVID-19 VACCINE (#1) [facility] 16:19:09 [code = COVID-19 VACCINE (#1)] Future Scheduled Test 2022-05-29 SHINGLES VACCINES (1 [facility] 16:19:09 of 2) [code = SHINGLES VACCINES (1 of 2)] Future Scheduled Test 2022-05-29 65+ PNEUMOCOCCAL [facility] 16:19:09 VACCINE (1 - PCV) [code = 65+ PNEUMOCOCCAL VACCINE (1 - PCV)] Future Scheduled Test 2022-05-29 INFLUENZA VACCINE [facility] 16:19:09 [code = INFLUENZA VACCINE] Future Scheduled Test 2022-05-29 COVID-19 VACCINE (#1) [facility] 16:19:09 [code = COVID-19 VACCINE (#1)] Future Scheduled Test 2022-05-29 SHINGLES VACCINES (1 [facility] 16:19:09 of 2) [code = SHINGLES VACCINES (1 of 2)] Future Scheduled Test 2022-05-29 65+ PNEUMOCOCCAL [facility] 16:19:09 VACCINE (1 - PCV) [code = 65+ PNEUMOCOCCAL VACCINE (1 - PCV)] Future Scheduled Test 2022-05-29 INFLUENZA VACCINE [facility] 16:19:09 [code = INFLUENZA VACCINE] Future Scheduled Test 2022-05-29 COVID-19 VACCINE (#1) [facility] 16:19:09 [code = COVID-19 VACCINE (#1)] Future Scheduled Test 2022-05-29 SHINGLES VACCINES (1 [facility] 16:19:09 of 2) [code = SHINGLES VACCINES (1 of 2)] Future Scheduled Test 2022-05-29 65+ PNEUMOCOCCAL [facility] 16:19:09 VACCINE (1 - PCV) [code = 65+ PNEUMOCOCCAL VACCINE (1 - PCV)] Future Scheduled Test 2022-05-29 INFLUENZA VACCINE [facility] 16:19:09 [code = INFLUENZA VACCINE] Future Scheduled Test 2022-03-08 COVID-19 VACCINE (#1) [facility] 05:54:06 [code = COVID-19 VACCINE (#1)] Future Scheduled Test 2022-03-08 SHINGLES VACCINES (1 [facility] 05:54:06 of 2) [code = SHINGLES VACCINES (1 of 2)] Future Scheduled Test 2022-03-08 65+ PNEUMOCOCCAL [facility] 05:54:06 VACCINE (1 - PCV) [code = 65+ PNEUMOCOCCAL VACCINE (1 - PCV)] Future Scheduled Test 2022-03-08 INFLUENZA VACCINE [facility] 05:54:06 [code = INFLUENZA VACCINE] Future Scheduled Test 2022-03-08 COVID-19 VACCINE (#1) [facility] 05:54:06 [code = COVID-19 VACCINE (#1)] Future Scheduled Test 2022-03-08 SHINGLES VACCINES (1 [facility] 05:54:06 of 2) [code = SHINGLES VACCINES (1 of 2)] Future Scheduled Test 2022-03-08 65+ PNEUMOCOCCAL [facility] 05:54:06 VACCINE (1 - PCV) [code = 65+ PNEUMOCOCCAL VACCINE (1 - PCV)] Future Scheduled Test 2022-03-08 INFLUENZA VACCINE [facility] 05:54:06 [code = INFLUENZA VACCINE] Future Scheduled [...] 00:00:00 measurement [facility] (procedure) [code = [id number]] Future Scheduled Test 2017-08-[address] [facility] 00:00:00 measurement [facility] (procedure) [code = 00240406] Future Scheduled Test 2017-08-[address] [facility] 00:00:00 measurement [facility] (procedure) [code = 02973865] Future Scheduled Test 2017-08-[address] [facility] 00:00:00 measurement [facility] (procedure) [code = 06916522] Future Scheduled Test 2017-08-[address] [facility] 00:00:00 measurement [facility] (procedure) [code = 53668893] Future Scheduled Test 2017-08-[address] [facility] 00:00:00 [facility] (procedure) [code = 61599220] Future Scheduled Test 2017-08-[address] [facility] 00:00:00 [facility] (procedure) [code = 63116024] Future Scheduled Test 2017-08-[address] [facility] 00:00:00 [facility] (procedure) [code = 58794996] Future Scheduled Test 2017-08-[address] [facility] 00:00:00 [facility] (procedure) [code = 56238625] Future Scheduled Test 2017-08-[address] [facility] 00:00:00 [facility] (procedure) [code = 16858777] Future Scheduled Test 2017-08-[address] [facility] 00:00:00 measurement [facility] (procedure) [code = 59343124] Future Scheduled Test 2017-08-[address] [facility] 00:00:00 measurement [facility] (procedure) [code = 55923978] Future Scheduled Test 2017-08-[address] [facility] 00:00:00 [facility] (procedure) [code = 27685633] Future Scheduled Test 2017-08-[address] [facility] 00:00:00 measurement [facility] (procedure) [code = 30053485] Future Scheduled Test 2017-08-[address] [facility] 00:00:00 measurement [facility] (procedure) [code = 05550991] Future Scheduled Test 2017-08-[address] [facility] 00:00:00 measurement [facility] (procedure) [code = 06280447] Future Scheduled Test 2017-08-[address] [facility] 00:00:00 measurement [facility] (procedure) [code = 87435170] Future Scheduled Test 2017-08-[address] [facility] 00:00:00 measurement [facility] (procedure) [code = 07535793] Future Scheduled Test 2017-02-11 MEDICARE ANNUAL [facility] [...] 00:00:00 examination Medical Center (regime/therapy) [code = 752632381] Future Scheduled Test 1950-08-13 Urine screening for [facility] 00:00:00 protein (procedure) [facility] [code = 957288987] Future Scheduled Test 1950-08-13 DIABETIC EYE EXAM [facility] 00:00:00 [code = DIABETIC EYE [facility] EXAM] Future Scheduled Test 1951-08-13 [facility] foot [facility] (regime/therapy) [code = 328186511] Future Scheduled Test 1950-08-13 Urine screening for [facility] 00:00:00 protein (procedure) [facility] Center [code = 278250321] Future Scheduled Test 1950-08-13 DIABETIC EYE EXAM [facility] 00:00:00 [code = DIABETIC EYE [facility] EXAM] Future Scheduled Test 1951-08-13 [facility] foot [facility] examination [facility] (regime/therapy) [code = 852113803] Future Scheduled Test 1950-08-13 Urine screening for [facility] 00:00:00 protein (procedure) [facility] Center [code = 036180636] Future Scheduled Test 1950-08-13 DIABETIC EYE EXAM [facility] 00:00:00 [code = DIABETIC EYE [facility] EXAM] Future Scheduled Test 1951-08-13 Di[facility] foot [facility] examination [facility] (regime/therapy) [code = 475066855] Future Scheduled Test 1950-08-13 Urine screening for [facility] 00:00:00 protein (procedure) [facility] [code = 679411477] Future Scheduled Test 1951-08-13 DIABETIC EYE EXAM [facility] 00[facility] [code = DIABETIC EYE [facility] EXAM] Future Scheduled Test 1951-08-13 Diabetic foot [facility] examination [facility] Center (regime/therapy) [code = 874898075] Future Scheduled Test 1951-08-13 Urine screening for [facility] 00:00:00 protein (procedure) [facility] [code = 062142091] Future Scheduled Test 1951-08-13 DIABETIC EYE EXAM [facility] 00:00:00 [code = DIABETIC EYE [facility] EXAM] Future Scheduled Test 1951-08-13 Diabetic foot [facility] 00:[facility] examination [facility] Center (regime/therapy) [code = 552565622] Future Scheduled Test 1951-08-13 DIABETIC EYE EXAM [facility] 00:00:00 [code = DIABETIC EYE [facility] EXAM] Future Scheduled Test 1951-08-13 Diabetic foot [facility] 00:[facility] examination [facility] (regime/therapy) [code = 079474350] Future Scheduled Test 1951-08-13 Urine screening for [facility] 00:00:00 protein (procedure) [facility] [code = 314420039] Future Scheduled Test 1951-08-13 Urine screening for [facility] 00:00:00 protein (procedure) [facility] [code = 056389430] Future Scheduled Test 1951-08-13 DIABETIC EYE EXAM [facility] 00:00:00 [code = DIABETIC EYE [facility] EXAM] Future Scheduled Test 1951-08-13 Diabetic foot [facility] 00:[facility]:00 examination [facility] Center (regime/therapy) [code = 889892296] Future Scheduled Test 1951-08-13 Urine screening for [facility] 00:00:00 protein (procedure) [facility] [code = 494621868] Future Scheduled Test 1951-08-13 DIABETIC EYE EXAM [facility] 00:00:00 [code = DIABETIC EYE [facility] EXAM] Future Scheduled Test 1951-08-13 Diabetic foot [facility] 00:[facility] examination [facility] (regime/therapy) [code = 699493166] Future Scheduled Test 1951-08-13 Urine screening for [facility] 00:00:00 protein (procedure) [facility] [code = 586912023] Future Scheduled Test 1951-08-13 DIABETIC EYE EXAM [facility] 00:00:00 [code = DIABETIC EYE [facility] Center EXAM] Future Scheduled Test 1951-08-13 Diabetic foot [facility] 00:[facility] examination [facility] (regime/therapy) [code = 432203827] Future Scheduled Test 1951-08-13 Urine screening for [facility] 00:00:00 protein (procedure) [facility] Center [code = 200508278] Future Scheduled Test 1951-08-13 DIABETIC EYE EXAM [facility] 00:00:00 [code = DIABETIC EYE [facility] EXAM] Future Scheduled Test 1951-08-13 Diabetic foot [facility] 00:[facility] examination [facility] Center (regime/therapy) [code = 893106430] Future Scheduled Test 1951-08-13 Urine screening for [facility] 00:00:00 protein (procedure) [facility] Center [code = 426489874] Future Scheduled Test 1951-08-13 DIABETIC EYE EXAM [facility] 00[facility]00:00 [code = DIABETIC EYE Medical Center EXAM] Future Scheduled Test 1951-08-13 Diabetic foot [facility] examination [facility] Center (regime/therapy) [code = 489105452] Future Scheduled Test 1951-08-13 Urine screening for [facility] 00:00:00 protein (procedure) [facility] Center [code = 864044841] Future Scheduled Test 1951-08-13 DIABETIC EYE EXAM [facility] 00:00:00 [code = DIABETIC EYE Medical Center EXAM] Future Scheduled Test 1951-08-13 Diabetic foot [facility] 00:[facility] examination [facility] Center (regime/therapy) [code = 521815032] Future Scheduled Test 1951-08-13 Urine screening for [facility] 00:00:00 protein (procedure) [facility] Center [code = 788378642] Future Scheduled Test 1951-08-13 DIABETIC EYE EXAM [facility] 00:00:00 [code = DIABETIC EYE Medical Center EXAM] Future Scheduled Test 1951-08-13 Diabetic foot [facility] 00:[facility] examination [facility] Center (regime/therapy) [code = 434914070] Future Scheduled Test 1951-08-13 Urine screening for [facility] 00:00:00 protein (procedure) [facility] Center [code = 445693886] Future Scheduled Test 1951-08-13 DIABETIC EYE EXAM [facility] 00:00:00 [code = DIABETIC EYE Medical Center EXAM] Future Scheduled Test 1951-08-13 Diabetic foot [facility] examination [facility] Center (regime/therapy) [code = 606881415] Future Scheduled Test 1951-08-13 Urine screening for [facility] 00:00:00 protein (procedure) [facility] Center [code = 884301939] Future Scheduled Test 1951-08-13 DIABETIC EYE EXAM [facility] 00:00:00 [code = DIABETIC EYE Medical Center EXAM] Future Scheduled Test 1951-08-13 Diabetic foot [facility] 00:[facility] examination [facility] Center (regime/therapy) [code = 257608091] Future Scheduled Test 1951-08-13 Urine screening for [facility] 00:00:00 protein (procedure) Medical Center [code = 237076888] Future Scheduled Test 1951-08-13 DIABETIC EYE EXAM [facility] 00:00:00 [code = DIABETIC EYE Medical Center EXAM] Future Scheduled Test 1951-08-13 Diabetic foot [facility] examination [facility] Center (regime/therapy) [code = 702070623] Future Scheduled Test 1951-08-13 Urine screening for [facility] 00:00:00 protein (procedure) [facility] Center [code = 750452257] Future Scheduled Test 1951-08-13 DIABETIC EYE EXAM [facility] 00:00:00 [code = DIABETIC EYE Medical Center EXAM] Future Scheduled Test 1951-08-13 Diabetic foot [facility] 00:[facility] examination [facility] Center (regime/therapy) [code = 925112865] Future Scheduled Test 1951-08-13 Urine screening for [facility] 00:00:00 protein (procedure) Medical Center [code = 890456141] Future Scheduled Test 1947-08-13 PNEUMOCOCCAL 65+ YRS [...] = DXA [facility] 00:00:00 SCAN] [facility] Center Future Scheduled Test 1940 DXA SCAN [code = DXA [facility] 00:00:00 SCAN] [facility] Center Future Scheduled Test 1941 DXA SCAN [code = DXA [facility] 00:00:00 SCAN] [facility] Center Future Scheduled Test 1941 DXA SCAN [code = DXA [facility] 00:00:00 SCAN] [facility] Center Future Scheduled Test 1941 DXA SCAN [code = DXA [facility] 00:00:00 SCAN] [facility] Center Future Scheduled Test 1941 DXA SCAN [code = DXA [facility] 00:00:00 SCAN] [facility] Center Future Scheduled Test 1941 DXA SCAN [code = DXA [facility] 00:00:00 SCAN] [facility] Center Future Scheduled Test 1941 DXA SCAN [code = DXA [facility] 00:00:00 SCAN] [facility] Center Future Scheduled Test 1941 DXA SCAN [code = DXA [facility] 00:00:00 SCAN] [facility] Center Future Appointment 2027-06-05 Nannette Sylvester [address] [place] [address] 00:00:00 [facility] , [place] [address] Encounters Start End Encounter Admission Attending Care Care Encounter Source Date/Time Date/Time Type Type Clinicians Facility Department ID 2022-04-11 Outpatient [place], STL[facility]C STLMLC [id number] Common 15:39:00 Jacqui 10387 [facility] 2022-03-18 Outpatient [place], STLMLC STLMLC [id number] Common 10:09:03 Jacqui 78076 [facility] 2022-03-04 Outpatient [place], STLMLC STLMLC [id number] Common 14:03:03 Jacqui 18434 [facility] 2022-02-27 Outpatient [place], STLMLC STLMLC [id number] Common 09:36:03 Jacqui 85525 [facility] 2022-02-12 Outpatient [place], STLMLC STLMLC [id number] Common 10:34:01 Jacqui 75308 [facility] 2021-09-28 Outpatient [place], STLMLC STLMLC [id number] Common 11:23:02 Jacqui [facility] 2021-08-28 Outpatient [place], STLMLC STLMLC [id number] Common 10:04:02 Jacqui [facility] 2021-07-17 Outpatient [place], STLMLC STLMLC [id number] Common 11:12:01 Jacqui [facility] 2021-06-06 Outpatient [place], STLMLC STLMLC [id number] Common 07:42:01 Jacqui [facility] 2021-04-25 Outpatient [place], STLMLC STLMLC [id number] Common 09:14:02 Jacqui [facility] 2021-03-14 Outpatient [place], STLMLC STLMLC [id number] Common 13:05:01 Jacqui [facility] 2021-03-07 Outpatient [place], STLMLC STLMLC [id number] Common 14:40:28 Jacqui [facility] 2020-11-19 Outpatient KACIE CALDERON [facility] Surgery [id number] SLE 02:33:02 2022-09-04 2022-09-04 Outpatient [facility] PRIV PRIV [id number] [facility] 00:00:00 00:00:00 d_J [id number] Medica l 2022-09-04 2022-09-04 Outpatient [facility] PRIV PRIV [id number] [facility] 00:00:00 00:00:00 d_J [id number] Medica l 2022-09-04 2022-09-04 Outpatient [facility] PRIV PRIV [id number] [facility] 00:00:00 00:00:00 d_J [id number] Medica l 2022-09-04 2022-09-04 Outpatient [facility] PRIV PRIV [id number] [facility] 00:00:00 00:00:00 d_Jessy [id number] Medica l 2022-09-03 2022-09-03 Outpatient [facility] PRIV PRIV [id number] [facility] 00:00:00 00:00:00 d_J [id number] Medica l 2022-08-03 2022-08-03 Outpatient [facility] PRIV PRIV [id number] [facility] 00:00:00 00:00:00 d_J [id number] Medica l 2022-08-03 2022-08-03 Outpatient [facility] PRIV PRIV [id number] [facility] 00:00:00 00:00:00 d_J [id number] Medica l 2022-08-03 2022-08-03 Outpatient [facility] PRIV PRIV [id number] [facility] 00:00:00 00:00:00 d_J [id number] Medica l 2022-08-03 2022-08-03 Outpatient [facility] PRIV PRIV [id number] [facility] 00:00:00 00:00:00 d_J [id number] Medica l 2022-08-03 2022-08-03 Outpatient [facility] PRIV PRIV [id number] [facility] 00:00:00 00:00:00 d_J [id number] Medica l 2022-08-03 2022-08-03 Outpatient [facility] PRIV PRIV [id number] [facility] 00:00:00 00:00:00 d_J [id number] Medica l 2022-08-03 2022-08-03 Outpatient [facility]Tod PRIV PRIV [id number] [facility] 00:00:00 00:00:00 d_J [id number] Medica l 2022-08-02 2022-08-02 Outpatient [facility] PRIV PRIV [id number] [facility] 00:00:00 00:00:00 d_J [id number] Medica l 2022-07-18 2022-07-18 Outpatient [facility] PRIV PRIV [id number] [facility] 00:00:00 00:00:00 d_J [id number] Medica l 2022-07-18 2022-07-18 Outpatient [facility] PRIV PRIV [id number] [facility] 00:00:00 00:00:00 d_J [id number] Medica l 2022-07-18 2022-07-18 Outpatient [facility] PRIV PRIV [id number] [facility] 00:00:00 00:00:00 d_J [id number] Medica l 2022-07-18 2022-07-18 Outpatient [facility] PRIV PRIV [id number] [facility] 00:00:00 00:00:00 d_J [id number] Medica l 2022-07-02 2022-07-02 Outpatient [facility] PRIV PRIV [id number] [facility] 00:00:00 00:00:00 d_J [id number] Medica l 2022-07-02 2022-07-02 Outpatient [facility] PRIV PRIV [id number] [facility] 00:00:00 00:00:00 d_J [id number] Medica l 2022-07-02 2022-07-02 Outpatient [facility] PRIV PRIV [id number] [facility] 00:00:00 00:00:00 d_J [id number] Medica l 2022-07-02 2022-07-02 Outpatient [facility]Tod PRIV PRIV [id number] [facility] 00:00:00 00:00:00 d_J [id number] Medica l 2022-07-02 2022-07-02 Outpatient [facility]Tod PRIV PRIV [id number] [facility] 00:00:00 00:00:00 d_J [id number] Medica l 2022-06-28 2022-06-28 Outpatient [facility] PRIV PRIV [id number] [facility] 00:00:00 00:00:00 d_J [id number] Medica l 2022-06-28 2022-06-28 Outpatient [facility] PRIV PRIV [id number] [facility] 00:00:00 00:00:00 d_J [id number] Medica l 2022-06-14 2022-06-14 Outpatient [facility] PRIV PRIV [id number] [facility] 00:00:00 00:00:00 d_J [id number] Medica l 2022-06-14 2022-06-14 Outpatient [facility] PRIV PRIV [id number] [facility] 00:00:00 00:00:00 d_J [id number] Medica l 2022-06-14 2022-06-14 Outpatient [facility] PRIV PRIV [id number] [facility] 00:00:00 00:00:00 d_J [id number] Medica l 2022-05-30 2022-05-30 Outpatient [facility] PRIV PRIV [id number] [facility] 00:00:00 00:00:00 d_J [id number] Medica l 2022-05-30 2022-05-30 Outpatient [facility] PRIV PRIV [id number] [facility] 00:00:00 00:00:00 d_J [id number] Medica l 2022-05-28 2022-05-28 Outpatient [facility] PRIV PRIV [id number] [facility] 00:00:00 00:00:00 d_J [id number] Medica l 2022-05-28 2022-05-28 Outpatient [facility] PRIV PRIV [id number] [facility] 00:00:00 00:00:00 d_J [id number] Medica l 2022-05-28 2022-05-28 Nannette [facility] [id number] [facility] 00:00:00 00:00:00 ARCELIA Sylvester: Health - Med ical [address] [address] , Ph. 2022-01-08 2022-01-08 (TEL) STLMLC STLMLC [id number] [facility] 00:00:00 00:00:00 [facility] 2022-01-01 2022-01-01 OFFICE STLMLC STLMLC [id number] [facility] 00:00:00 00:00:00 VISIT [facility] ESTAB PT - CHI LEVEL 4 [facility] 2021-11-20 2021-11-20 (TEL) STLMLC STLMLC [id number] [facility] 00:00:00 00:00:00 [facility] 2021-10-26 2021-10-26 (TEL) STLMLC STLMLC [id number] [facility] 00:00:00 00:00:00 [facility] 2021-10-02 2021-10-02 OFFICE STLMLC STLMLC [id number] [facility] 00:00:00 00:00:00 VISIT [facility] PT - CHI LEVEL 4 [facility] 2021-08-17 2021-08-17 (TEL) STLMLC STLMLC [id number] Co [facility] 00:00:00 00:00:00 [facility] 2021-07-19 2021-07-19 OFFICE STLMLC STLMLC [id number] [facility] 00:00:00 00:00:00 VISIT [facility] PT - CHI LEVEL 4 [facility] 2021-07-17 2021-07-17 (TEL) STLMLC STLMLC [id number] [facility] 00:00:00 00:00:00 [facility] 2021-06-05 2021-06-05 OFFICE STLMLC STLMLC [id number] [facility] 00:00:00 00:00:00 VISIT [facility] PT - CHI LEVEL 4 [facility] 2021-05-08 2021-05-08 (TEL) STLMLC STLMLC [id number] Co [facility] 00:00:00 00:00:00 [facility] 2021-04-27 2021-04-27 OFFICE STLMLC STLMLC [id number] Co [facility] 00:00:00 00:00:00 VISIT EST Spir it PT LEVEL 3 - [facility] 2021-04-19 2021-04-19 (TEL) STLMLC STLMLC [id number] Co m[facility] 00:00:00 00:00:00 [facility] 2021-03-07 2021-03-07 OFFICE STLMLC STLMLC [id number] [facility] 00:00:00 00:00:00 VISIT [facility] PT - CHI LEVEL 4 [facility] 2021-03-07 2021-03-07 SUB ANNUAL STLMLC STLMLC [id number] Common 00:00:00 00:00:00 MCR [facility] WELLNESS - CHI VISIT [facility] Results Test Description Test Time Test Comments Results Result Comments Source HEMOGLOBIN A1C 2022-01-01 00:00:00 Test Item Value Reference Range Interpretation Comme nts A1C (test code = 4548-4) 10.6 HEMOGLOBIN [id number] 00:00:00 Test Item Value Reference Range Interpretation Comments A1C (test code = 4548-4) 10.3 HEMOGLOBIN [id number] 00:00:00 Test Item Value Reference Range Interpretation Comments A1C (test code = 4548-4) 8.8 HEMOGLOBIN [id number] 00:00:00 Test Item Value Reference Range Interpretation Comments A1C (test code = 4548-4) 9.4 RAD, CHEST, 1 VIEW, NON [id number] 20:01:00Reason for exam:->s/p PPM implantShould this be performed at the bedside?->Yes [facility] : 1940 Sex: FFINALREPORT AP chest dated 08/08/2020 Comment: Heart is in upper limits of normal in size. Pulmonary vasculature is unremarkable. Lungs are clear. No pulmonary infiltrate or pleural effusion. AICD is present. No pneumothorax is seen. Signed: [place] Ring MDRepgabriel Verified Date/Time: 08/08/2020 20:01:08 Reading Location: [address] Reading Room BASIC METABOLIC [id number] 19:57:00 Test Item Value Reference Range Interpretation [...] S NOT APPLICABLE FOR DIALYSIS PATIEN TS. Jig Borer ID - IVANIA CCBC W/PLT COUNT & AUTO [id number] 13:56:00 Test Item Value Reference Range Interpretation [...] (BEAKER) (test code = 2801) URINALYSIS W/ [id number] 14:41:00 Test Item Value Reference Range Interpretation [...] MUCUS (BEAKER) (test Rare code = 1574) SOURCE(AKER) (test Urine, Straight code = 2795) Catheter POCT-GLUCOSE [id number] 11:21:00 Test Item Value Reference Range Interpretation Comments POC-GLUCOSE METER 167 mg/dL 70-110 H TESTED AT [place] [address] ([facility]) (test code = TUTU [place] 1538) [address] POCT-GLUCOSE [id number] 08:56:00 Test Item Value Reference Range Interpretation Comments POC-GLUCOSE METER 167 mg/dL 70-110 H TESTED AT [place] [address] ([facility]) (test code = TUTU Reese [place] 1538) 25261 POCT-GLUCOSE [id number] 22:03:00 Test Item Value Reference Range Interpretation Comments POC-GLUCOSE METER 128 mg/dL 70-110 H TESTED AT [place] [address] ([facility]) (test code = TUTU [place] 1538) 764[address] POCT-GLUCOSE [id number] 17:31:00 Test Item Value Reference Range Interpretation Comments POC-GLUCOSE METER 141 mg/dL 70-110 H TESTED AT [place] [address] ([facility]) (test code = TUTU [place] 1538) 6[address] POCT-GLUCOSE [id number] 11:58:00 Test Item Value Reference Range Interpretation Comments POC-GLUCOSE METER 159 mg/dL 70-110 H TESTED AT [place] [address] ([facility]) (test code = TUTU [place] 1538) 18423 POCT-GLUCOSE [id number] 07:47:00 Test Item Value Reference Range Interpretation Comments POC-GLUCOSE METER 115 mg/dL 70-110 H TESTED AT [place] [address] ([facility]) (test code = TUTU [place] 1538) [address]019 POCT-GLUCOSE [id number] 21:03:00 Test Item Value Reference Range Interpretation Comments POC-GLUCOSE METER 177 mg/dL 70-110 H TESTED AT [place] [address] ([facility]) (test code = [place] 15[place]) [address] POCT-GLUCOSE [id number] 16:23:00 Test Item Value Reference Range Interpretation Comments POC-GLUCOSE METER 185 mg/dL 70-110 H TESTED AT [place] [address] ([facility]) (test code = TUTU [place] 1538) [address] POCT-GLUCOSE [id number] 12:04:00 Test Item Value Reference Range Interpretation Comments POC-GLUCOSE METER 208 mg/dL 70-110 H TESTED AT [place] [address] ([facility]) (test code = TUTU Reese [facility] 1538) 51750 POCT-GLUCOSE [id number] 07:51:00 Test Item Value Reference Range Interpretation Comments POC-GLUCOSE METER 127 mg/dL 70-110 H TESTED AT [place] [address] ([facility]) (test code = TUTU Reese [facility] 1538) 72227 POCT-GLUCOSE [id number] 20:44:00 Test Item Value Reference Range Interpretation Comments POC-GLUCOSE METER 225 mg/dL 70-110 H TESTED AT [place] [address] ([facility]) (test code = TUTU Reese [facility] 1538) 92204 POCT-GLUCOSE [id number] 17:52:00 Test Item Value Reference Range Interpretation Comments POC-GLUCOSE METER 150 mg/dL 70-110 H TESTED AT [place] [address] ([facility]) (test code = TUTU Reese [facility] 1538) 89490 POCT-GLUCOSE [id number] 12:45:00 Test Item Value Reference Range Interpretation Comments POC-GLUCOSE METER 176 mg/dL 70-110 H TESTED AT [place] [address] ([facility]) (test code = TUTU Reese [facility] 1538) 56863 POCT-GLUCOSE [id number] 07:41:00 Test Item Value Reference Range Interpretation Comments POC-GLUCOSE METER 147 mg/dL 70-110 H TESTED AT [place] [address] ([facility]) (test code = TUTU Reese [facility] 1538) 22841 POCT-GLUCOSE [id number] 20:42:00 Test Item Value Reference Range Interpretation Comments POC-GLUCOSE METER 194 mg/dL 70-110 H TESTED AT [place] [address] ([facility]) (test code = TUTU Reese [facility] 1538) 20857 POCT-GLUCOSE [id number] 17:33:00 Test Item Value Reference Range Interpretation Comments POC-GLUCOSE METER 174 mg/dL 70-110 H TESTED AT [place] [address] (BEAKER) (test code = TUTU [place]ese [place] 1538) 12799 POCT-GLUCOSE [id number] 12:14:00 Test Item Value Reference Range Interpretation Comments POC-GLUCOSE METER 153 mg/dL 70-110 H TESTED AT [place] [address] (BEAKER) (test code = TUTU [place] 1538) 28552 POCT-GLUCOSE [id number] 07:55:00 Test Item Value Reference Range Interpretation Comments POC-GLUCOSE METER 220 mg/dL 70-110 H TESTED AT [place] [address] (BEAKER) (test code = TUTU [place] 1538) 62854 POCT-GLUCOSE [id number] 20:50:00 Test Item Value Reference Range Interpretation Comments POC-GLUCOSE METER 241 mg/dL 70-110 H TESTED AT [place] [address] (BEAKER) (test code = TUTU [place] 1538) 48374 POCT-GLUCOSE [id number] 16:54:00 Test Item Value Reference Range Interpretation Comments POC-GLUCOSE METER 218 mg/dL 70-110 H TESTED AT [place] [address] (BEAKER) (test code = TUTU [place] 1538) 12282 POCT-GLUCOSE [id number] 11:45:00 Test Item Value Reference Range Interpretation Comments POC-GLUCOSE METER 257 mg/dL 70-110 H TESTED AT [place] [address] (BEAKER) (test code = TUTU [place] 1538) 69285 POCT-GLUCOSE [id number] 07:57:00 Test Item Value Reference Range Interpretation Comments POC-GLUCOSE METER 219 mg/dL 70-110 H TESTED AT [place] [address] (BEAKER) (test code = TUTU [place] 1538) [address] BASIC METABOLIC [id number] 06:05:00 Test Item Value Reference Range Interpretation [...] PATIEN TS. CBC W/PLT COUNT & AUTO [id number] 05:42:00 Test Item Value Reference Range Interpretation [...] PERCENT (BEAKER) (test code = 2801) POCT-GLUCOSE [id number] 20:57:00 Test Item Value Reference Range Interpretation Comments POC-GLUCOSE METER 301 mg/dL 70-110 H Notified R Becca SHOEMAKER/TESTED ([facility]) (test code = AT [place] [address]) [facility] 7703 0 POCT-GLUCOSE [id number] 15:57:00 Test Item Value Reference Range Interpretation Comments POC-GLUCOSE METER 292 mg/dL 70-110 H TESTED AT [place] [address] ([facility]) (test code = TUTU Reese [facility] 1538) 64936 POCT-GLUCOSE [id number] 13:36:00 Test Item Value Reference Range Interpretation Comments POC-GLUCOSE METER 181 mg/dL 70-110 H TESTED AT [place] [address] ([facility]) (test code = TUTU Reese [facility] 1538) 00811 POCT-GLUCOSE [id number] 07:46:00 Test Item Value Reference Range Interpretation Comments POC-GLUCOSE METER 172 mg/dL 70-110 H TESTED AT [place] [address] ([facility]) (test code = TUTU Reese [facility] 1538) 96828 POCT-GLUCOSE [id number] 21:03:00 Test Item Value Reference Range Interpretation Comments POC-GLUCOSE METER 195 mg/dL 70-110 H TESTED AT [place] [address] ([facility]) (test code = TUTU Reese [facility] 1538) 09415 POCT-GLUCOSE [id number] 16:41:00 Test Item Value Reference Range Interpretation Comments POC-GLUCOSE METER 198 mg/dL 70-110 H TESTED AT [facility] 6720 (BEAKER) (test code = TUTU Reese [place] 1538) [id number] POCT-GLUCOSE [id number] 12:08:00 Test Item Value Reference Range Interpretation Comments POC-GLUCOSE METER 241 mg/dL 70-110 H TESTED AT [facility] 6720 (BEAKER) (test code = TUTU Reese [place] 1538) [id number] POCT-GLUCOSE [id number] 08:27:00 Test Item Value Reference Range Interpretation Comments POC-GLUCOSE METER 300 mg/dL 70-110 H TESTED AT [facility] 6720 (BEAKER) (test code = TUTU Reese [facility] 1538) [id number] BASIC METABOLIC [id number] 05:56:00 Test Item Value Reference Range Interpretation [...] NOT APPLICABLE FOR DIALYSIS PATIEN TS. PROTHROMBIN [id number] 04:54:00 Test Item Value Reference Range Interpretation Comments PROTIME (BEAKER) (test code = 14.5 seconds 11.7-14.7 759) INR (BEAKER) (test code = 370) 1.1 <=5.9 RECOMMENDED COUMADIN/WARFARIN INR THERAPY RANGESSTANDARD DOSE: 2.0 - 3.0 Includes: PROPHYLAXIS for venous thrombosis, systemic embolization; TREATMENT for venous thrombosis and/or pulmonary embolus.HIGH RISK: Target INR is 2.5-3.5 for patients with mechanical heart valves.CBC W/PLT COUNT & AUTO [id number] 04:50:00 Test Item Value Reference Range Interpretation [...] ABSOLUTE COUNT 0.43 K/ L 0.04-0.36 H ([facility]) (test code = 416) BASOPHILS ABSOLUTE COUNT ([facility]) 0.02 K/ L 0.01-0.08 (test code = 417) IMMATURE GRANULOCYTES-RELATIVE 0 % 0-1 PERCENT ([facility]) (test code = 2801) POCT-GLUCOSE [id number] 22:08:00 Test Item Value Reference Range Interpretation Comments POC-GLUCOSE METER 285 mg/dL 70-110 H TESTED AT [place] [address] ([facility]) (test code = [facility] [facility] Hugh [facility] 1538) [address] POCT-GLUCOSE [id number] 16:19:00 Test Item Value Reference Range Interpretation Comments POC-GLUCOSE METER 230 mg/dL 70-110 H TESTED AT [place] [address] ([facility]) (test code = LUISATX Hugh [facility] 1538) [address] RAD, ANKLE, MIN 3 VIEWS, [id number] 12:27:00Reason for exam:->pain edema following fallFINAL REPORT Clinical history: pain edema following fall TECHNIQUE: 3 views of the right ankle COMPARISON: None IMPRESSION: There is soft tissue swelling over the medial malleolus.There is no evidence of fracture or dislocation. There are dorsal and plantar calcaneal spurs. Thereare vascular calcifications. Signed: Car Heller Verified Date/Time: 02/04/2017 12:27:23 Reading Location: [facility] Radiology Reading Room Electronically signed by: CAR HELLER M.D.on 02/04/2017 12:27 PMPOCT- GLUCOSE [id number] 11:55:00 Test Item Value Reference Range Interpretation Comments POC-GLUCOSE METER 204 mg/dL 70-110 H TESTED AT [facility] 67 ([facility]) (test code = [facility] Hugh [facility] 1538) [address]60 POCT-GLUCOSE [id number] 08:00:00 Test Item Value Reference Range Interpretation Comments POC-GLUCOSE METER 217 mg/dL 70-110 H TESTED AT [facility] 6720 ([facility]) (test code = [facility] Hugh [facility] 1538) [address] [id number] 07:14:00 Test Item Value Reference Range Interpretation Comments PHOSPHORUS ([facility]) (test code = 3.8 mg/dL 2.3-4.7 604) [id number] 07:14:00 Test Item Value Reference Range Interpretation Comments MAGNESIUM (BEAKER) (test code = 1.7 mg/dL 1.6-2.6 627) BASIC METABOLIC [id number] 07:14:00 Test Item Value Reference Range Interpretation [...] NOT APPLICABLE FOR DIALYSIS PATIEN TS. POCT-GLUCOSE [id number] 22:31:00 Test Item Value Reference Range Interpretation Comments POC-GLUCOSE METER 288 mg/dL 70-110 H TESTED AT [place] [address] ([facility]) (test code = T[place]U [place] 1538) [address] POCT-GLUCOSE [id number] 17:03:00 Test Item Value Reference Range Interpretation Comments POC-GLUCOSE METER 268 mg/dL 70-110 H TESTED AT [facility] 6720 ([facility]) (test code = [place] 1538) [address] POCT-GLUCOSE [id number] 12:31:00 Test Item Value Reference Range Interpretation Comments POC-GLUCOSE METER 214 mg/dL 70-110 H TESTED AT [facility] 6720 ([facility]) (test code = [place] 1538) [address] CT, BRAIN, WITHOUT [id number] 09:22:00FINAL REPORT CT head without contrast INDICATION: [...] MDReport Verified Date/Time: 02/03/2017 09:22:48 Reading Location: [address] Neuro Reading Room POCT-GLUCOSE [id number] 07:19:00 Test Item Value Reference Range Interpretation Comments POC-GLUCOSE METER 218 mg/dL 70-110 H TESTED AT [facility] 6720 (BEAKER) (test code = TUTU Reese [place] 1538) [address] [id number] 06:12:00 Test Item Value Reference Range Interpretation Comments PHOSPHORUS (BEAKER) (test code = 3.1 mg/dL 2.3-4.7 604) [id number] 06:12:00 Test Item Value Reference Range Interpretation Comments MAGNESIUM (BEAKER) (test code = 1.6 mg/dL 1.6-2.6 627) BASIC METABOLIC [id number] 06:12:00 Test Item Value Reference Range Interpretation [...] 358) GLUCOSE RANDOM 200 mg/dL 70-105 H (AKER) (test code = 652) CALCIUM (BEAKER) 8.5 mg/dL 8.4-10.2 (test code = 697) EGFR ([facility]) (test 72 mL/min/1.73 ESTIMA TONI GFR IS code = 1092) sq m NOT ACCURATE CREATININE CLEARANCE IN PREDICTING GLOMERULAR FILTRATION RATE . ESTIMATED GFR I S NOT APPLICABLE FOR DIALYSIS PATIEN TS. POCT-GLUCOSE [id number] 23:10:00 Test Item Value Reference Range Interpretation Comments POC-GLUCOSE METER 239 mg/dL 70-110 H TESTED AT [place] [address] ([facility]) ([facility] = [facility] 1538) [address] POCT-GLUCOSE [id number] 17:20:00 Test Item Value Reference Range Interpretation Comments POC-GLUCOSE METER 291 mg/dL 70-110 H TESTED AT [place] [address] ([facility]) (test code = [employer] [facility] 1538) [address] POCT-GLUCOSE [id number] 12:39:00 Test Item Value Reference Range Interpretation Comments POC-GLUCOSE METER 274 mg/dL 70-110 H TESTED AT [place] [address] ([facility]) (test code = [employer] [facility] 1538) [address] POCT-GLUCOSE [id number] 11:35:00 Test Item Value Reference Range Interpretation Comments POC-GLUCOSE METER 289 mg/dL 70-110 H TESTED AT [place] [address] ([facility]) (test code = [employer] [facility] 1538) [address] POCT-GLUCOSE [id number] 11:07:00 Test Item Value Reference Range Interpretation Comments POC-GLUCOSE METER 271 mg/dL 70-110 H TESTED AT [place] [address] ([facility]) (test code = Medication ReviewTX [employer] [facility] 1538) [address] CT, BRAIN, WITHOUT [id number] 10:51:00FINAL REPORT CT head without contrast INDICATION: [...] appearing findings as discussed above. Signed: Charanjit Iabrra MDReport Verified Date/Time: 02/02/2017 10:51:15 Reading Location: [address] Neuro Reading Room [id number] 06:07:00 Test Item Value Reference Range Interpretation Comments PHOSPHORUS (BEAKER) (test code = 3.2 mg/dL 2.3-4.7 604) [id number] 06:07:00 Test Item Value Reference Range Interpretation Comments MAGNESIUM (BEAKER) (test code = 2.4 mg/dL 1.6-2.6 627) BASIC METABOLIC [id number] 06:07:00 Test Item Value Reference Range Interpretation [...] NOT APPLICABLE FOR DIALYSIS PATIEN TS. POCT-GLUCOSE [id number] 21:34:00 Test Item Value Reference Range Interpretation Comments POC-GLUCOSE METER 331 mg/dL 70-110 H TESTED AT [facility] 6720 ([facility]) (test code = TUTU Reese [facility] 1538) [address]10 HEMOGLOBIN [id number] 14:53:00 Test Item Value Reference Range Interpretation Comments HEMOGLOBIN A1C (BEAKER) (test code = 14.8 % 4.3-6.1 H 368) POCT-GLUCOSE [id number] 11:57:00 Test Item Value Reference Range Interpretation Comments POC-GLUCOSE METER 232 mg/dL 70-110 H TESTED AT [facility] 67 ([facility]) (test code = [facility] Hugh [facility] 1538) [address] [id number] 11:44:00 Test Item Value Reference Range Interpretation Comments PHOSPHORUS (BEAKER) (test code = 3.0 mg/dL 2.3-4.7 604) [id number] 11:44:00 Test Item Value Reference Range Interpretation Comments MAGNESIUM (BEAKER) (test code = 1.3 mg/dL 1.6-2.6 L 627) BASIC METABOLIC [id number] 11:44:00 Test Item Value Reference Range Interpretation Comments SODIUM (BEAKER) 139 meq/L 136-145 (test code = 381) POTASSIUM (BEAKER) 3.4 meq/L 3.5-5.1 L (test code = 379) CHLORIDE (BEAKER) 105 meq/L 98-107 (test code = 382) CO2 (BEAKER) (test 22 meq/L code = 355) BLOOD UREA NITROGEN 13 [...] PATIEN TS. CBC W/PLT COUNT & AUTO [id number] 11:18:00 Test Item Value Reference Range Interpretation [...] PERCENT (BEAKER) (test code = 2801) POCT-GLUCOSE [id number] 08:37:00 Test Item Value Reference Range Interpretation Comments POC-GLUCOSE METER 269 mg/dL 70-110 H TESTED AT [place] [address] ([facility]) (test code = TUTU STROUD 1538) [address] LIPID [id number] 03:12:00 Test Item Value Reference Range Interpretation Comments TRIGLYCERIDES ([facility]) (test code = 129 mg/dL 540) CHOLESTEROL ([facility]) (test code = 185 mg/dL 631) HDL CHOLESTEROL ([facility]) (test code 39 mg/dL = 976) LDL CHOLESTEROL CALCULATED ([facility]) 120 mg/dL (test code = 633) [...] Value Reference Range Interpretation Comments RPR SCREEN ([facility]) (test code = Nonreactive Nonreactive 420) POCT-GLUCOSE [id number] 01:15:00 Test Item Value Reference Range Interpretation Comments POC-GLUCOSE METER 297 mg/dL 70-110 H TESTED AT [place] [address] ([facility]) (test code = TUTU Reese [facility] 1538) [address] POCT-GLUCOSE [id number] 22:01:00 Test Item Value Reference Range Interpretation Comments POC-GLUCOSE METER 354 mg/dL 70-110 H Notified Hugh Hudson MD/MILLIE ([facility]) (test code = AT [facility] 67[address] 1538) [facility] 7703 0 MR, BRAIN, WITHOUT [id number] 20:46:00Reason for exam:->Ischemic Stroke EvaluationFINAL REPORT MRI [...] Ibarra Verified Date/Time: 01/31/2017 20:46:20 Reading Location: [facility] Radiology Reading Room MR, MRA, BRAIN, WITHOUT [id number] 20:36:00 Reason for exam:->Ischemic Stroke EvaluationFINAL REPORT MRA head and neck without contrast INDICATION: Stroke TECHNIQUE: 2-D and 3-D kvkf-ie-obumse MRA images of the intra- and extracranial [...] left vertebral artery is not imaged. 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 Mild to moderate left vertebrobasilar confluence, moderate mid basilar artery and severe right and moderate left proximal [employer] G[employer]ATOR stenoses are present. There are suspected severe left supraclinoid ICA stenosis with signal loss. There are mild stenoses of the left proximal MCA and TRUDY origins. No other flow limiting proximal [place] vessels stenosis is seen. Motion [...] severe left supraclinoid ICA and proximal right AIR GUN OPERATOR stenoses. 4. No hemodynamically significant cervical carotid artery stenosis by NASCET criteria. Signed: Charanjit Ibarra [facility] Verified Date/Time: 01/31/2017 20:36:02 Reading Location: [facility] Radiology ReadingRoom MR, MRA, NECK, WITHOUT IV [id number] 20:36:00Reason for exam:->Ischemic Stroke EvaluationFINAL REPORT MRA head and neck without contrast INDICATION: Stroke TECHNIQUE: 2-D and 3-D onnj-us-zdwged MRA images of the intra- and extracranial [...] left vertebral artery is not imaged. 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 Mild to moderate left vertebrobasilar confluence, moderate mid basilar artery and severe right and moderate left proximal AIR GUN OPERATOR stenoses are present. There are suspected severe left supraclinoid ICA stenosis with signal loss. There are mild stenoses of the left proximal MCA and TRUDY or igins. No other flow limiting proximal [place] vessels stenosis is seen. Motion [...] severe left supraclinoid ICA and proximal right AIR GUN OPERATOR stenoses. 4. No hemodynamically significant cervical carotid artery stenosis by NASCET criteria. Signed: Charanjit Ibarra MDRort Verified Date/Time: 01/31/2017 20:36:02 Reading Location: [facility] Radiology ReadingRoom VITAMIN B12 AND [id number] 13:11:00 Test Item Value Reference Range Interpretation Comments VITAMIN B12 ([employer]) (test code = 551 pg/mL 213816 774) FOLATE ([employer]) (test code = 362) 15.7 ng/mL >=7.0 [id number] 10:22:00 Test Item Value Reference Range Interpretation Comments HOMOCYSTEINE ([employer]) (test code = 7.0 umol/L 5.1-15.4 642) POCT-GLUCOSE [id number] 08:22:00 Test Item Value Reference Range Interpretation Comments POC-GLUCOSE METER 200 mg/dL 70-110 H TESTED AT [facility] 6720 ([employer]) (test code = [place] 9478) [address] T4, [id number] 07:04:00 Test Item Value Reference Range Interpretation Comments FREE T4 (BEAKER) (test code = 655) 1.28 ng/dL 0.70-1.48 TSH/FREE T4 IF [id number] 06:34:00 Test Item Value Reference Range Interpretation Comments THYROID STIMULATING HORMONE 0.22 uIU/mL 0.35-4.94 L (BEAKER) (test code = 772) BASIC METABOLIC [id number] 05:53:00 Test Item Value Reference Range Interpretation [...] PATIEN TS. CBC W/PLT COUNT & AUTO [id number] 05:31:00 Test Item Value Reference Range Interpretation [...] Note Provider Source 2020-08-10 15:05:16-00:00 KACIE CALDERON [facility] OPERATIVE/PROCEDURE REPORT [facility] FACILITY: [facility] Billing #: [id number] Room: [facility] MR #: [id number] : 1940 DATE OF PROCEDURE: 08/08/2020 SURGEON: [...] vein. There we re no complications. MATT/LAYLA /[id number] 2017-02-06 18:18:00-00:00 KACIE CALDERON [facility] REPORT OF PROCEDURE [facility] FACILITY: [facility] BILLING #: [id number] ROOM: [address] [place] [address] MR #: [id number] : 1940 DATE OF PROCEDURE: 02/06/2017 SURGEON: [...] chest subcutaneous tissue without complications. Demetrio P 06:1 8 P Job#: [id number] Doc#: [id number] FN: [id number] cc: Kacie Calderon MD 2017-02-05 21:30:00-00:00 KACIE CALDERON [facility] REPORT OF PROCEDURE [facility] FACILITY: [facility] BILLING #: [id number] ROOM: 6C [id number] MR #: [id number] : 1940 DATE OF PROCEDURE: 02/05/2017 SURGEON: [...] transie nt AV block identified with prompt mormon of normal conduction and recu rrent of conduction intervals to normal. There was subsequent no inducible tac hycardia and no sustained slow pathway conduction. Procedure was terminate d. No complication. MATT/christian P P Job#: [id number] Doc#: [id number] FN: [id number] cc: Kacie Calderon MD
[2022-09-21 15:23] LABS: Absolute Lymphocytes (CBC) 0.6 K/uL (0.7-4.9); Hematocrit 30.1 % (36.0-45.0); Lymphocytes % 6.8 % (15.3-44.8); MCV 100.5 fL (80-100); MPV 8.3 fL (7.6-11.3); Platelets 126 thou/uL (152-406); RBC Red Blood Cell Count 2.99 M/uL (3.86-4.86)
[2022-09-21 15:36] LABS: Albumin 2.6 g/dL (3.4-5.0); Bilirubin Total 0.6 mg/dL (0.2-1.0); Potassium 3.8 mEq/L (3.5-5.1); Protein, Total 6.7 g/dL (6.4-8.2)
[2022-09-21] MEDS ORDERED: ONDANSETRON 4 MG/2 ML VIAL ONE (16:09)
[2022-09-21] MEDS ORDERED: FAMOTIDINE 20 MG/2 ML VIAL IV ONE (16:10)
--- NOTE | 2022-09-21 16:46 | EDPHYS ---
Physician Documentation [facility] Name: Rebecca Hazel Age: 82 yrs Sex: Female : 1940 Arrival Date: 09/21/2022 Time: 13:51 Bed 3 Private MD: ED Physician Carlton Nelson HPI: 09/22 08:59 This 82 yrs old Female presents to ER via EMS with complaints of Nausea/Vomiting. kdr 09:00 Patient was sent from dialysis for nausea vomiting and high blood sugar. Patient states kdr that this is a routine event that occurs often when she gets dialyzed. Patient does not appear toxic and states that there is nothing new about her current circumstance. She is feeling much better at the time of presentation and not requiring immediate intervention.. Onset: The symptoms/episode began/occurred just prior to arrival. Severity of symptoms: At their worst the symptoms were mild in the emergency department the symptoms have improved markedly. The patient has experienced similar episodes in the past, multiple times. The patient has not recently seen a physician. Historical: - Allergies: 09/21 13:57 No Known Allergies; bp - PMHx: 13:57 Diabetes - IDDM; Hypertension; Hypothyroidism; stroke with right sided weakness; TIA; bp End stage renal disease; DIALYSIS M-W-F; - PSHx: 13:57 pacemaker; bp - Immunization history:: Adult Immunizations up to date. - Social history:: Smoking status: Patient denies any tobacco usage or history of. ROS: 09/22 09:00 Constitutional: Negative for fever, chills, and weight loss, Eyes: Negative for injury, kdr pain, redness, and discharge, ENT: Negative for injury, pain, and discharge, Neck: Negative for injury, pain, and swelling, Cardiovascular: Negative for chest pain, palpitations, and edema, Respiratory: Negative for shortness of breath, cough, wheezing, and pleuritic chest pain, Back: Negative for injury and pain, : Negative for injury, bleeding, discharge, and swelling, MS/Extremity: Negative for injury and deformity, Skin: Negative for injury, rash, and discoloration, Neuro: Negative for headache, weakness, numbness, tingling, and seizure activity. Psych: Negative for depression, anxiety, suicide ideation, homicidal ideation, and hallucinations, Allergy/Immunology: Negative for hives, rash, and allergies, Endocrine: Negative for neck swelling, polydipsia, polyuria, polyphagia, and marked weight changes, Hematologic/Lymphatic: Negative for swollen nodes, abnormal bleeding, and unusual bruising. Abdomen/GI: Positive for nausea and vomiting, Negative for constipation, abdominal distension, anorexia, dysphagia, hematemesis, black/tarry stool, rectal pain, rectal bleeding. Exam: 09:00 Constitutional: This is a well developed, well nourished patient who is awake, alert, kdr and in no acute distress. Head/Face: Normocephalic, atraumatic. Eyes: Pupils equal round and reactive to light, extra-ocular motions intact. Lids and lashes normal. Conjunctiva and sclera are non-icteric and not injected. Cornea within normal limits. Periorbital areas with no swelling, redness, or edema. Neck: Trachea midline, no thyromegaly or masses palpated, and no cervical lymphadenopathy. Supple, full range of motion without nuchal rigidity, or vertebral point tenderness. No Meningismus. Chest/axilla: Normal chest wall appearance and motion. Nontender with no deformity. No lesions are appreciated. Cardiovascular: Regular rate and rhythm with a normal S1 and S2. No gallops, murmurs, or rubs. Normal PMI, no JVD. No pulse deficits. Respiratory: Lungs have equal breath sounds bilaterally, clear to auscultation and percussion. No rales, rhonchi or wheezes noted. No increased work of breathing, no retractions or nasal flaring. Abdomen/GI: Soft, non-tender, with normal bowel sounds. No distension or tympany. No guarding or rebound. No evidence of tenderness throughout. Back: No spinal tenderness. No costovertebral tenderness. Full range of motion. Skin: Warm, dry with normal turgor. Normal color with no rashes, no lesions, and no evidence of cellulitis. MS/ Extremity: Pulses equal, no cyanosis. Neurovascular intact. Full, normal range of motion. Neuro: Awake and alert, GCS 15, oriented to person, place, time, and situation. Cranial nerves II-XII grossly intact. Motor strength 5/5 in all extremities. Sensory grossly intact. Cerebellar exam normal. Normal gait. Psych: Awake, alert, with orientation to person, place and time. Behavior, mood, and affect are within normal limits. Vital Signs: 09/21 13:53 BP 97 / 56; Pulse 65; Resp 20; Temp 98; Pulse Ox 94% on R/A; bp 14:38 BP 131 / 59; Pulse 64; Resp 15; Pulse Ox 93% ; jl7 16:13 BP 119 / 55; Pulse 58; Resp 16; Pulse Ox 93% ; bp 17:11 BP 124 / 60; Pulse 58; Resp 16; Pulse Ox 97% ; bp MDM: 16:45 Patient medically screened. kdr 09/22 09:00 Data reviewed: vital signs, nurses notes, lab test result(s). kdr 09/21 14:27 Order name: CBC with Diff; Complete Time: 16:39 kdr 09/21 14:27 Order name: CMP; Complete Time: 16:39 kdr 09/21 14:27 Order name: Lipase; Complete Time: 16:39 kdr 09/21 15:31 Order name: Troponin High Sensitivity; Complete Time: 16:39 kdr 09/21 14:27 Order name: IV Saline Lock; Complete Time: 14:31 kdr 09/21 14:27 Order name: Labs collected and sent; Complete Time: 14:52 kdr 09/21 15:31 Order name: EKG - Nurse/Tech; Complete Time: 16:12 kdr Administered Medications: 09/21 16:00 Drug: Ondansetron IVP 4 mg Route: IVP; Site: left antecubital; bp 17:12 Follow up: Response: No adverse reaction bp 16:00 Drug: Famotidine IVP 20 mg Route: IVP; Site: left antecubital; bp 17:12 Follow up: Response: No adverse reaction bp Disposition Summary: 09/21/22 16:45 Discharge Ordered Location: Home kdr Problem: new kdr Symptoms: have improved kdr Condition: Stable kdr Diagnosis - Nausea with vomiting, unspecified kdr - End stage renal disease kdr - Dependence on renal dialysis kdr Followup: kdr - With: Private Physician - When: 2 - 3 days - Reason: If symptoms return, Further diagnostic work-up, Recheck today's complaints, Continuance of care, Re-evaluation by your physician Discharge Instructions: - Discharge Summary Sheet kdr - Nausea and Vomiting, Adult, Vysq-hj-Fize kdr - Dialysis kdr - End-Stage Kidney Disease kdr Forms: - Medication Reconciliation Form kdr - Thank You Letter kdr - Patient Portal Instructions kdr - Leadership Thank You Letter kdr Signatures: Dispmollyer Carlton Newberry MD MD kdr Peltier, Brian, RN RN bp
--- NOTE | 2022-09-21 16:46 | ER ---
Nurse's Notes [facility] Name: Rebecca Hazel Age: 82 yrs Sex: Female : 1940 Arrival Date: 09/21/2022 Time: 13:51 Bed 3 Private MD: Diagnosis: Nausea with vomiting, unspecified;End stage renal disease;Dependence on renal dialysis Presentation: 09/21 13:53 Chief complaint: EMS states: SENT FROM [facility] FOR NAUSEA/VOMITING AND HIGH BLOOD SUGAR. bp Coronavirus screen: At this time, the client does not indicate any symptoms associated with coronavirus-19. Ebola Screen: No symptoms or risks identified at this time. Initial Sepsis Screen: Does the patient meet any 2 criteria? No. Patient's initial sepsis screen is negative. Does the patient have a suspected source of infection? No. Patient's initial sepsis screen is negative. Risk Assessment: Do you want to hurt yourself or someone else? Patient reports no desire to harm self or others. Onset of symptoms was September 21, 2022. Care prior to arrival: IV initiated. 22 GA, in the left forearm, Glucose check: 284. 13:53 Method Of Arrival: EMS: [facility] bp 13:53 Acuity: DENNIS 3 bp Triage Assessment: 13:57 General: Appears in no apparent distress. Behavior is cooperative, appropriate for age, bp anxious. Pain: Complains of pain in buttocks and left foot. EENT: No deficits noted. Neuro: Level of Consciousness is awake, alert, obeys commands, Oriented to Appropriate for age. Cardiovascular: No deficits noted. Respiratory: No deficits noted. GI: Reports nausea, vomiting. : No signs and/or symptoms were reported regarding the genitourinary system. Derm: No deficits noted. Musculoskeletal: No deficits noted. Historical: - Allergies: 13:57 No Known Allergies; bp - PMHx: 13:57 Diabetes - IDDM; Hypertension; Hypothyroidism; stroke with right sided weakness; TIA; bp End stage renal disease; DIALYSIS M-W-F; - PSHx: 13:57 pacemaker; bp - Immunization history:: Adult Immunizations up to date. - Social history:: Smoking status: Patient denies any tobacco usage or history of. Screenin:59 [facility] ED Fall Risk Assessment (Adult) History of falling in the last 3 months, bp including since admission No falls in past 3 months (0 pts). Abuse screen: Denies threats or abuse. Denies injuries from another. Nutritional screening: No deficits noted. Tuberculosis screening: No symptoms or risk factors identified. Assessment: 13:59 General: SEE TRIAGE NOTE. bp 16:13 Reassessment: No changes from previously documented assessment. Patient is alert, bp oriented x 3, equal unlabored respirations, skin warm/dry/pink. 17:11 Reassessment: PT TBDC, TRANSPORT PENDING. bp Vital Signs: 13:53 BP 97 / 56; Pulse 65; Resp 20; Temp 98; Pulse Ox 94% on R/A; bp 14:38 BP 131 / 59; Pulse 64; Resp 15; Pulse Ox 93% ; jl7 16:13 BP 119 / 55; Pulse 58; Resp 16; Pulse Ox 93% ; bp 17:11 BP 124 / 60; Pulse 58; Resp 16; Pulse Ox 97% ; bp ED Course: 13:53 Patient arrived in ED. bp 13:56 Carlton Nelson MD is Attending Physician. kdr 13:57 Triage completed. bp 13:57 Arm band placed on. bp 13:59 Patient has correct armband on for positive identification. Bed in low position. Call bp light in reach. Side rails up X2. 13:59 Maintain EMS IV. Dressing intact. Good blood return noted. Site clean \T\ dry. Gauge \T\ bp site: 22 LEFT FA. 14:00 Bladimir Lopez, RN is Primary Nurse. bp 17:12 No provider procedures requiring assistance completed. IV discontinued, intact, bp bleeding controlled, No redness/swelling at site. Pressure dressing applied. Administered Medications: 16:00 Drug: Ondansetron IVP 4 mg Route: IVP; Site: left antecubital; bp 17:12 Follow up: Response: No adverse reaction bp 16:00 Drug: Famotidine IVP 20 mg Route: IVP; Site: left antecubital; bp 17:12 Follow up: Response: No adverse reaction bp Medication: 13:59 VIS not applicable for this client. bp Outcome: 16:45 Discharge ordered by . kdr 17:57 Discharged to halfway. Report called to [facility] bp 17:57 Condition: stable 17:57 Discharge instructions given to patient, Instructed on discharge instructions, follow up and referral plans. Demonstrated understanding of instructions, follow-up care. 17:58 Patient left the ED. bp Signatures: Carlton Nelson MD MD kdr Jeanne Ponce RN RN [id number] Bladimir Lopez RN RN bp Corrections: (The following items were deleted from the chart) 13:59 13:53 Care prior to arrival: IV initiated. 22 GA, in the left forearm, bp bp
[2022-09-21 18:28] VITALS: TEMP 98
[2022-09-21 18:32] VITALS: BP 124/60; O2SAT 97
--- NOTE | 2022-09-23 13:13 | EKG ---
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
== END 2022-09-21 17:58 | disposition home or self-care (01) ==
LOC: ER 13:51
DX: R11.2 Nausea with vomiting, unspecified (principal); E11.22 Type 2 diabetes mellitus with diabetic chronic kidney disease; I12.0 Hypertensive chronic kidney disease with stage 5 chronic kidney disease or end stage renal disease; N18.6 End stage renal disease; Z99.2 Dependence on renal dialysis; Z95.0 Presence of cardiac pacemaker
CPT/HCPCS: 93005; 85025; 36415; 84484; 83690; 80053; 96375; 96374; 99284; J2405

== ENCOUNTER 2022-09-24 17:47 | Inpatient (IN) | payer OTHER ==
--- OUTSIDE RECORDS SUMMARY | 2022-09-24 17:57 | XMS REPORT | Continuity of Care Document ---
:1940 Author Organization [facility] t Address [address] [facility] [place] [address] Care Team Providers Name Role Phone SARIAH HART Primary Care Physician Unavailable Jacqui Pate Attending Clinician Unavailable KACIE CALDERON Attending Clinician Unavailable Vitor Attending Clinician Unavailable EM ALEX Attending Clinician Unavailable KACIE CALDERON Admitting Clinician Unavailable Vitor Admitting Clinician Unavailable EM ALEX Admitting Clinician Unavailable Payers Payer Name Policy Type Policy Number Effective Date Expiration Date S santiago [facility]/MEDICARE [id number] 2016 COMPLETE 00:00:00 [facility] MEDICARE [id number] COMPLETE (MEDICARE REPLACEMENT HMO) [facility] 53 [id number] 2021 Common ADVANTAGE WELLMED 00:00:00 [facility] AARP MEDICARE 53 [id number] 2020 Common ADVANTAGE WELLMED 00:00:00 [facility] Problems Condition Condition Condition [...] arterioscl 00:00: Me dical erosis erosis 00 [place] Accelerate Accelerate Disease Active [facility] d d 02-12 [facility] hypertensi hypertensi 00:00: Me dical on on 00 [place] S/P S/P Disease Active [facility] radiofrequ radiofrequ 02-12 kes ency ency 00:00: Medical ablation ablation 00 Center operation operation 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[address] yue yue nce 04-07 [facility] re-entry re-entry 00:00: Medica l tachycardi tachycardi 00 nter a) a) Stroke Stroke Disease Recurre 2016-[address] (cerebrum) (cerebrum) nce 04-03 [facility] 00:00: Medical 00 Center Essential Essential Problem Com mon hypertensi hypertensi Sp chino on on - [facility] Dyslipidem Dyslipidem Problem C ommon ia ia Spirit - [facility] Postoperat Hypothyroi Problem C ommon zena dism Spirit Hypothyroi associated - CHI dism with surgical [facility] procedure [facility] Hemiplegia Hemiplegia Problem C ommon of right affecting Spiri t dominant right - CHI side dominant side [facility] Problem Com mon current (current) Spirit use of use of - CHI insulin insulin [facility] Diabetic Diabetes Problem Commo n neuropathy mellitus Spir it with - CHI diabetic neuropathy [facility] [id number] Chronic Problem Commo n kidney Spirit disease, - CHI stage 4 (severe) [facility] [id number] Melba Problem Common tropicalis Spirit infection - [facility] [id number] 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 [facility] extremitie Medica l s with Center intermitte nt claudicati on, left leg [id number] 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, - CHI recurrent, mild [facility] [id number] Bilateral Problem Com mon lower Spirit extremity - CHI edema [facility] [id number] Type 2 Problem Commo n 07 diabetes Spirit mellitus - CHI with diabetic [facility] chronic Medical kidney Center disease [id number] Chronic Problem 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 - CHI failure, unspecifie [facility] d heart Medical failure Center type History of History of Problem C ommon cerebrovas CVA Spirit cular (cerebrova - [facility]I accident scular St without accident) [facility] Center Allergies, Adverse Reactions, Alerts Allergy Allergy Status Severity Reaction(s) Onset Inactive Treating Comm ents Source Name Type Date Date Clinician NO KNOWN Allergy Active [facility] Family History Family Member Diagnosis Comments Start Date Stop Date Source Natural father Diabetes [facility] Natural mother Hypertension [facility] Social History Social Habit Start Date Stop Date Quantity Comments Source Gender identity [facility] Sexual orientation [facility] History of Tobacco Common Spirit - Use [facility] Alcohol intake 2020-08-09 2020-08-09 Current [facility] 00:00:00 00:00:00 non-drinker of Medical Ce nter alcohol (finding) History of Social 2017-12-24 2017-12-[address] function 00:00:00 00:00:00 Hospital Tobacco use and 2017-07-24 2017-07-24 Smokeless [facility] exposure 00:00:00 00:00:00 tobacco non-user Hospital Sex Assigned At [birth year] [facility] 00:00:00 00:00:00 Medical Center Smoking Status Start [...] mouth Lukes tablet 23:38: daily. Medical 15 [place] metoprolol Yes 25mg QD Take [address] (TOPROL-XL) 6-29 by mouth Luke s 25 MG 24 hr 23:38: daily. Medi dragan tablet 15 Center insulin Yes Inject [facility] 70/30, 6-29 subcutaneo Lukes insulin 23:38: usly 2 Medical NPH-insulin 15 (two) Center regular, times (HumuLIN daily 70/30) 100 before unit/mL meals. (70-30) injection cloNIDine Yes .1mg Q.[id number] Take 0.[address] HCL 6-29 [id number] mg by Lukes (CATAPRES) 23:38: 3D mouth [...] 20 MG 23:38: daily. Medical capsule 15 [place] furosemide Yes 80mg QD Take [address] (LASIX) 80 6-29 by mouth Lukes MG tablet 23:38: daily. Medica l 15 [place] metoprolol Yes 12.5mg Take 12.[address] tartrate 6-29 mg by Lukes (LOPRESSOR 23:38: mouth. Medic al ORAL) 15 [place] atorvastati Yes 80mg QD Take [address] n (LIPITOR) 6-29 by mouth Luke s 80 MG 23:38: daily. Medical tablet 15 [place] famotidine Yes 20mg QD Take [address] (PEPCID) 20 6-29 by mouth Luke s MG tablet 23:38: daily. Medica l 15 [place] GABAPENTIN Yes 200mg QD Take [address] ORAL 6-29 mg by Lukes 23:38: mouth Medical 15 daily. Center aspirin 81 Yes 81mg QD Take [address] MG EC 6-29 by mouth Lukes tablet 23:38: daily. Medical 15 [place] metoprolol Yes 25mg QD Take [address] (TOPROL-XL) 6-29 by mouth Luke s 25 MG 24 hr 23:38: daily. Medi dragan tablet 15 [place] insulin Yes Inject [facility] 70/30, 6-29 subcutaneo Lukes insulin 23:38: usly 2 Medical NPH-insulin 15 (two) Center regular, times (HumuLIN daily 70/30) 100 before unit/mL meals. (70-30) injection cloNIDine Yes .1mg Q.[id number] Take 0.[address] HCL 6-29 [id number] mg by Lukes (CATAPRES) 23:38: 3D mouth [...] 20 MG 23:38: daily. Medical capsule 15 [place] furosemide Yes 80mg QD Take [address] (LASIX) 80 6-29 by mouth Lukes MG tablet 23:38: daily. Medica l 15 [place] metoprolol Yes 12.5mg Take 12.[address] tartrate 6-29 mg by Lukes (LOPRESSOR 23:38: mouth. Medic al ORAL) 15 [place] atorvastati Yes 80mg QD Take [address] n (LIPITOR) 6-29 by mouth Luke s 80 MG 23:38: daily. Medical tablet 15 Center famotidine Yes 20mg QD Take [address] (PEPCID) 20 6-29 by mouth Luke s MG tablet 23:38: daily. Medica l 15 [place] GABAPENTIN Yes 200mg QD Take 200 CH [...] unit/mL meals. (70-30) injection cloNIDine Yes .1mg Q.[id number] Take 0.[address] HCL 6-29 [id number] mg by Lukes (CATAPRES) 23:38: 3D mouth [...] MG tablet 23:38: daily. Medica l 15 [place] metoprolol Yes 12.5mg Take 12.[address] tartrate 6-29 mg by Lukes (LOPRESSOR 23:38: mouth. Medic al ORAL) 15 Center atorvastati Yes 80mg QD Take [address] n (LIPITOR) 6-29 by mouth Luke s 80 MG 23:38: daily. Medical tablet 15 [place] famotidine Yes 20mg QD Take [address] (PEPCID) 20 6-29 by mouth Luke s MG tablet 23:38: daily. Medica l 15 [place] GABAPENTIN Yes 200mg QD Take [address] ORAL 6-29 mg by Lukes 23:38: mouth Medical 15 daily. [place] aspirin 81 Yes 81mg QD Take [address] MG EC 6-29 by mouth Lukes tablet 23:38: daily. Medical 15 [place] metoprolol Yes 25mg QD Take [address] (TOPROL-XL) 6-29 by mouth Luke s 25 MG 24 hr 23:38: daily. Medi dragan tablet 15 [place] insulin Yes Inject [facility] 70/30, 6-29 subcutaneo Lukes insulin 23:38: usly 2 Medical NPH-insulin 15 (two) Center regular, times (HumuLIN daily 70/30) 100 before unit/mL meals. (70-30) injection cloNIDine Yes .1mg Q.[id number] Take 0.[address] HCL 6-29 [id number] mg by Lukes (CATAPRES) 23:38: 3D mouth [...] 20 MG 23:38: daily. Medical capsule 15 [place] furosemide Yes 80mg QD Take 80 mg [...] MG tablet 23:38: daily. Medica l 15 [place] GABAPENTIN Yes 200mg QD Take [address] ORAL 6-29 mg by Lukes 23:38: mouth Medical 15 daily. [place] aspirin 81 Yes 81mg QD Take [address] MG EC 6-29 by mouth Lukes tablet 23:38: daily. Medical 15 [place] metoprolol Yes 25mg QD Take [address] (TOPROL-XL) 6-29 by mouth Luke s 25 MG 24 hr 23:38: daily. Medi dragan tablet 15 Center insulin Yes Inject [facility] 70/30, 6-29 subcutaneo Lukes insulin 23:38: usly 2 Medical NPH-insulin 15 (two) Center regular, times (HumuLIN daily 70/30) 100 before unit/mL meals. (70-30) injection cloNIDine Yes .1mg Q.[id number] Take 0.[address] HCL 6-29 [id number] mg by Lukes (CATAPRES) 23:38: 3D mouth [...] 20 MG 23:38: daily. Medical capsule 15 [place] furosemide Yes 80mg QD Take [address] (LASIX) 80 6-29 by mouth Lukes MG tablet 23:38: daily. Medica l 15 [place] metoprolol Yes 12.5mg Take 12.[address] tartrate 6-29 mg by Lukes (LOPRESSOR 23:38: mouth. Medic al ORAL) 15 [place] atorvastati Yes 80mg QD Take [address] n (LIPITOR) 6-29 by mouth Luke s 80 MG 23:38: daily. Medical tablet 15 [place] famotidine Yes 20mg QD Take [address] (PEPCID) 20 6-29 by mouth Luke s MG tablet 23:38: daily. Medica l 15 [place] GABAPENTIN Yes 200mg QD Take [address] ORAL 6-29 mg by Lukes 23:38: mouth Medical 15 daily. [place] aspirin 81 Yes 81mg QD Take [address] MG EC 6-29 by mouth Lukes tablet 23:38: daily. Medical [address] [place] [address] aspirin 81 Yes 81mg QD Take [address] MG EC 6-29 by mouth Lukes tablet 23:38: daily. [address] metoprolol Yes 25mg QD Take [address] (TOPROL-XL) 6-29 by mouth Luke s 25 MG 24 hr 23:38: daily. Medi dragan tablet 15 [place] insulin Yes Inject [facility] 70/30, 6-29 subcutaneo Lukes insulin 23:38: usly 2 Medical NPH-insulin 15 (two) [place] regular, times (HumuLIN daily 70/30) 100 before unit/mL meals. (70-30) injection cloNIDine Yes .1mg Q.[id number] Take 0.[address] HCL 6-29 [id number] mg by Lukes (CATAPRES) 23:38: 3D mouth [...] 20 MG 23:38: daily. Medical capsule 15 [place] metoprolol Yes 25mg QD Take [address] (TOPROL-XL) 6-29 by mouth Luke s 25 MG 24 hr 23:38: daily. Medi dragan tablet 15 [place] furosemide Yes 80mg QD Take [address] (LASIX) 80 6-29 by mouth Lukes MG tablet 23:38: daily. Medica l 15 [place] metoprolol Yes 12.5mg Take 12.[address] tartrate 6-29 mg by Lukes (LOPRESSOR 23:38: mouth. Medic al ORAL) 15 [place] atorvastati Yes 80mg QD Take [address] n (LIPITOR) 6-29 by mouth Luke s 80 MG 23:38: daily. Medical tablet 15 [place] famotidine Yes 20mg QD Take [address] (PEPCID) 20 6-29 by mouth Luke s MG tablet 23:38: daily. Medica l 15 [place] GABAPENTIN Yes 200mg QD Take [address] ORAL 6-29 mg by Lukes 23:38: mouth Medical 15 daily. [place] insulin Yes Inject [facility] 70/30, 6-29 subcutaneo Lukes insulin 23:38: usly 2 Medical NPH-insulin 15 (two) Center regular, times (HumuLIN daily 70/30) 100 before unit/mL meals. (70-30) injection cloNIDine Yes .1mg Q.[id number] Take 0.[address] HCL 6-29 [id number] mg by Lukes (CATAPRES) 23:38: 3D mouth [...] 20 MG 23:38: daily. Medical capsule 15 [place] furosemide Yes 80mg QD Take [address] (LASIX) 80 6-29 by mouth Lukes MG tablet 23:38: daily. Medica l 15 [place] metoprolol Yes 12.5mg Take 12.[address] tartrate 6-29 mg by Lukes (LOPRESSOR 23:38: mouth. Medic al ORAL) 15 [place] atorvastati Yes 80mg QD Take [address] n (LIPITOR) 6-29 by mouth Luke s 80 MG 23:38: daily. Medical tablet 15 [place] famotidine Yes 20mg QD Take [address] (PEPCID) 20 6-29 by mouth Luke s MG tablet 23:38: daily. Medica l 15 [place] GABAPENTIN Yes 200mg QD Take [address] ORAL 6-29 mg by Lukes 23:38: mouth Medical 15 daily. [place] aspirin 81 Yes 81mg QD Take [address] MG EC 6-29 by mouth Lukes tablet 23:38: daily. Medical 15 [place] metoprolol Yes 25mg QD Take [address] (TOPROL-XL) 6-29 by mouth Luke s 25 MG 24 hr 23:38: daily. Medi dragan tablet 15 [place] insulin Yes Inject [facility] 70/30, 6-29 subcutaneo Lukes insulin 23:38: usly 2 Medical NPH-insulin 15 (two) Center regular, times (HumuLIN daily 70/30) 100 before unit/mL meals. (70-30) injection cloNIDine Yes .1mg Q.[id number] Take 0.[address] HCL 6-29 [id number] mg by Lukes (CATAPRES) 23:38: 3D mouth [...] 20 MG 23:38: daily. Medical capsule 15 [place] furosemide Yes 80mg QD Take [address] (LASIX) 80 6-29 by mouth Lukes MG tablet 23:38: daily. Medica l 15 [place] metoprolol Yes 12.5mg Take 12.[address] tartrate 6-29 mg by Lukes (LOPRESSOR 23:38: mouth. Medic al ORAL) 15 [place] aspirin 81 Yes 81mg QD Take [address] MG EC 6-29 by mouth Lukes tablet 23:38: daily. Medical 15 [place] metoprolol Yes 25mg QD Take [address] (TOPROL-XL) 6-29 by mouth Luke s 25 MG 24 hr 23:38: daily. Medi dragan tablet 15 [place] insulin Yes Inject [facility] 70/30, 6-29 subcutaneo Lukes insulin 23:38: usly 2 Medical NPH-insulin 15 (two) [place] regular, times (HumuLIN daily 70/30) 100 before unit/mL meals. (70-30) injection cloNIDine Yes .1mg Q.[id number] Take 0.[address] HCL 6-29 [id number] mg by Lukes (CATAPRES) 23:38: 3D mouth 3 Medi dragan 0.1 MG 15 (three) Center tablet times daily. apixaban Yes 5mg Q.5D Take [address] (ELIQUIS) 5 6-29 by mouth 2 [facility] k[facility] mg Tab 23:38: (two) Medical tablet 15 times Center daily. levothyroxi 2021-0 Yes 175ug Take [address] [...] 80 MG 23:38: daily. Medical tablet 15 [place] famotidine Yes 20mg QD Take 20 mg [...] 80 MG 23:38: daily. Medical tablet 15 [place] famotidine Yes 20mg QD Take [address] (PEPCID) 20 6-29 by mouth Luke s MG tablet 23:38: daily. Medica l 15 [place] GABAPENTIN Yes 200mg QD Take [address] ORAL 6-29 mg by Lukes 23:38: mouth Medical 15 daily. [place] aspirin 81 Yes 81mg QD Take [address] MG EC 6-29 by mouth Lukes tablet 23:38: daily. Medical 15 Center metoprolol Yes 25mg QD Take [address] (TOPROL-XL) 6-29 by mouth Luke s 25 MG 24 hr 23:38: daily. Medi dragan tablet 15 [place] insulin Yes Inject [facility] 70/30, 6-29 subcutaneo Lukes insulin 23:38: usly 2 Medical NPH-insulin 15 (two) Center regular, times (HumuLIN daily 70/30) 100 before unit/mL meals. (70-30) injection cloNIDine Yes .1mg Q.[id number] Take 0.[address] HCL 6-29 [id number] mg by Lukes (CATAPRES) 23:38: 3D mouth [...] 20 MG 23:38: daily. Medical capsule 15 [place] furosemide Yes 80mg QD Take [address] (LASIX) 80 6-29 by mouth Lukes MG tablet 23:38: daily. Medica l 15 [place] metoprolol Yes 12.5mg Take 12.[address] tartrate 6-29 mg by Lukes (LOPRESSOR 23:38: mouth. Medic al ORAL) 15 [place] atorvastati Yes 80mg QD Take [address] n (LIPITOR) 6-29 by mouth Luke s 80 MG 23:38: daily. Medical tablet 15 [place] famotidine Yes 20mg QD Take [address] (PEPCID) 20 6-29 by mouth Luke s MG tablet 23:38: daily. Medica l 15 [place] GABAPENTIN Yes 200mg QD Take [address] ORAL 6-29 mg by Lukes 23:38: mouth Medical 15 daily. [place] aspirin 81 Yes 81mg QD Take [address] MG EC 6-29 by mouth Lukes tablet 23:38: daily. Medical 15 [place] metoprolol Yes 25mg QD Take [address] (TOPROL-XL) 6-29 by mouth Luke s 25 MG 24 hr 23:38: daily. Medi dragan tablet 15 Center insulin Yes Inject [facility] 70/30, 6-29 subcutaneo Lukes insulin 23:38: usly 2 Medical NPH-insulin 15 (two) Center regular, times (HumuLIN daily 70/30) 100 before unit/mL meals. (70-30) injection cloNIDine Yes .1mg Q.[id number] Take 0.[address] HCL 6-29 [id number] mg by Lukes (CATAPRES) 23:38: 3D mouth [...] 20 MG 23:38: daily. Medical capsule 15 [place] furosemide Yes 80mg QD Take [address] (LASIX) 80 6-29 by mouth Lukes MG tablet 23:38: daily. Medica l 15 [place] metoprolol Yes 12.5mg Take 12.[address] tartrate 6-29 mg by Lukes (LOPRESSOR 23:38: mouth. Medic al ORAL) 15 [place] atorvastati Yes 80mg QD Take [address] n (LIPITOR) 6-29 by mouth Luke s 80 MG 23:38: daily. Medical tablet 15 [place] famotidine Yes 20mg QD Take [address] (PEPCID) 20 6-29 by mouth Luke s MG tablet 23:38: daily. Medica l 15 [place] GABAPENTIN Yes 200mg QD Take [address] ORAL 6-29 mg by Lukes 23:38: mouth Medical 15 daily. [place] aspirin 81 Yes 81mg QD Take [address] MG EC 6-29 by mouth Lukes tablet 23:38: daily. Medical 15 [place] metoprolol Yes 25mg QD Take [address] (TOPROL-XL) 6-29 by mouth Luke s 25 MG 24 hr 23:38: daily. Medi dragan tablet 15 Center insulin Yes Inject [facility] 70/30, 6-29 subcutaneo Lukes insulin 23:38: usly 2 Medical NPH-insulin 15 (two) Center regular, times (HumuLIN daily 70/30) 100 before unit/mL meals. (70-30) injection cloNIDine Yes .1mg Q.[id number] Take 0.[address] HCL 6-29 [id number] mg by Lukes (CATAPRES) 23:38: 3D mouth [...] 20 MG 23:38: daily. Medical capsule 15 [place] furosemide Yes 80mg QD Take [address] (LASIX) 80 6-29 by mouth Lukes MG tablet 23:38: daily. Medica l 15 [place] metoprolol Yes 12.5mg Take 12.[address] tartrate 6-29 mg by Lukes (LOPRESSOR 23:38: mouth. Medic al ORAL) 15 [place] atorvastati Yes 80mg QD Take [address] n (LIPITOR) 6-29 by mouth Luke s 80 MG 23:38: daily. Medical tablet 15 [place] famotidine Yes 20mg QD Take 20 mg [...] unit/mL meals. (70-30) injection cloNIDine Yes .1mg Q.[id number] Take 0.[address] HCL 6-29 [id number] mg by Lukes (CATAPRES) 23:38: 3D mouth [...] MG tablet 23:38: daily. Medica l 15 [place] metoprolol Yes 12.5mg Take 12.[address] tartrate 6-29 mg by Lukes (LOPRESSOR 23:38: mouth. Medic al ORAL) 15 [place] atorvastati Yes 80mg QD Take [address] n (LIPITOR) 6-29 by mouth Luke s 80 MG 23:38: daily. Medical tablet 15 Center famotidine Yes 20mg QD Take [address] (PEPCID) 20 6-29 by mouth Luke s MG tablet 23:38: daily. Medica l 15 [place] GABAPENTIN Yes 200mg QD Take [address] ORAL 6-29 mg by Lukes 23:38: mouth Medical 15 daily. [place] aspirin 81 Yes 81mg QD Take 81 [...] unit/mL meals. (70-30) injection cloNIDine Yes .1mg Q.[id number] Take 0.[address] HCL 6-29 [id number] mg by Lukes (CATAPRES) 23:38: 3D mouth [...] 20 MG 23:38: daily. Medical capsule 15 [place] furosemide Yes 80mg QD Take [address] (LASIX) 80 6-29 by mouth Lukes MG tablet 23:38: daily. Medica l 15 [place] metoprolol Yes 12.5mg Take 12.[address] tartrate 6-29 mg by Lukes (LOPRESSOR 23:38: mouth. Medic al ORAL) 15 Center atorvastati Yes 80mg QD Take [address] n (LIPITOR) 6-29 by mouth Luke s 80 MG 23:38: daily. Medical tablet 15 [place] famotidine Yes 20mg QD Take [address] (PEPCID) 20 6-29 by mouth Luke s MG tablet 23:38: daily. Medica l 15 [place] GABAPENTIN Yes 200mg QD Take [address] ORAL 6-29 mg by Lukes 23:38: mouth Medical 15 daily. [place] aspirin 81 Yes 81mg QD Take [address] MG EC 6-29 by mouth Lukes tablet 23:38: daily. Medical 15 [place] metoprolol Yes 25mg QD Take [address] (TOPROL-XL) 6-29 by mouth Luke s 25 MG 24 hr 23:38: daily. Medi dragan tablet 15 [place] insulin Yes Inject [facility] 70/30, 6-29 subcutaneo Lukes insulin 23:38: usly 2 Medical NPH-insulin 15 (two) Center regular, times (HumuLIN daily 70/30) 100 before unit/mL meals. (70-30) injection cloNIDine Yes .1mg Q.[id number] Take 0.[address] HCL 6-29 [id number] mg by Lukes (CATAPRES) 23:38: 3D mouth [...] 20 MG 23:38: daily. Medical capsule 15 [place] furosemide Yes 80mg QD Take [address] (LASIX) 80 6-29 by mouth Lukes MG tablet 23:38: daily. Medica l 15 [place] metoprolol Yes 12.5mg Take 12.[address] tartrate 6-29 mg by Lukes (LOPRESSOR 23:38: mouth. Medic al ORAL) 15 Center atorvastati Yes 80mg QD Take [address] n (LIPITOR) 6-29 by mouth Luke s 80 MG 23:38: daily. Medical tablet 15 [place] famotidine Yes 20mg QD Take [address] (PEPCID) 20 6-29 by mouth Luke s MG tablet 23:38: daily. Medica l 15 [place] GABAPENTIN Yes 200mg QD Take [address] ORAL 6-29 mg by Lukes 23:38: mouth Medical 15 daily. [place] aspirin 81 Yes 81mg QD Take [address] MG EC 6-29 by mouth Lukes tablet 23:38: daily. Medical 15 [place] metoprolol Yes 25mg QD Take [address] (TOPROL-XL) 6-29 by mouth Luke s 25 MG 24 hr 23:38: daily. Medi dragan tablet 15 [place] insulin Yes Inject [facility] 70/30, 6-29 subcutaneo Lukes insulin 23:38: usly 2 Medical NPH-insulin 15 (two) Center regular, times (HumuLIN daily 70/30) 100 before unit/mL meals. (70-30) injection cloNIDine Yes .1mg Q.[id number] Take 0.[address] HCL 6-29 [id number] mg by Lukes (CATAPRES) 23:38: 3D mouth [...] 20 MG 23:38: daily. Medical capsule 15 [place] furosemide Yes 80mg QD Take [address] (LASIX) 80 6-29 by mouth Lukes MG tablet 23:38: daily. Medica l 15 [place] metoprolol Yes 12.5mg Take 12.[address] tartrate 6-29 mg by Lukes (LOPRESSOR 23:38: mouth. Medic al ORAL) 15 [place] atorvastati Yes 80mg QD Take [address] n (LIPITOR) 6-29 by mouth Luke s 80 MG 23:38: daily. Medical tablet 15 [place] famotidine Yes 20mg QD Take [address] (PEPCID) 20 6-29 by mouth Luke s MG tablet 23:38: daily. Medica l 15 [place] GABAPENTIN Yes 200mg QD Take [address] ORAL 6-29 mg by Lukes 23:38: mouth Medical 15 daily. [place] aspirin 81 Yes 81mg QD Take [address] MG EC 6-29 by mouth Lukes tablet 23:38: daily. Medical 15 [place] metoprolol Yes 25mg QD Take [address] (TOPROL-XL) 6-29 by mouth Luke s 25 MG 24 hr 23:38: daily. Medi dragan tablet 15 [place] insulin Yes Inject [facility] 70/30, 6-29 subcutaneo Lukes insulin 23:38: usly 2 Medical NPH-insulin 15 (two) [place] regular, times (HumuLIN daily 70/30) 100 before unit/mL meals. (70-30) injection cloNIDine Yes .1mg Q.[id number] Take 0.[address] HCL 6-29 [id number] mg by Lukes (CATAPRES) 23:38: 3D mouth [...] 20 MG 23:38: daily. Medical capsule 15 [place] furosemide Yes 80mg QD Take [address] (LASIX) 80 6-29 by mouth Lukes MG tablet 23:38: daily. Medica l 15 Center metoprolol Yes 12.5mg Take 12.[address] tartrate 6-29 mg by Lukes (LOPRESSOR 23:38: mouth. Medic al ORAL) 15 [place] atorvastati Yes 80mg QD Take [address] n (LIPITOR) 6-29 by mouth Luke s 80 MG 23:38: daily. Medical tablet 15 [place] famotidine Yes 20mg QD Take [address] (PEPCID) 20 6-29 by mouth Luke s MG tablet 23:38: daily. Medica l 15 [place] GABAPENTIN Yes 200mg QD Take [address] ORAL 6-29 mg by Lukes 23:38: mouth Medical 15 daily. Center aspirin 81 Yes 81mg QD Take [address] MG EC 6-29 by mouth Lukes tablet 23:38: daily. Medical 15 [place] aspirin 81 Yes 81mg QD Take [address] MG EC 6-29 by mouth Lukes tablet 23:38: daily. Medical 15 [place] metoprolol Yes 25mg QD Take [address] (TOPROL-XL) 6-29 by mouth Luke s 25 MG 24 hr 23:38: daily. Medi dragan tablet 15 [place] insulin Yes Inject [facility] 70/30, 6-29 subcutaneo Lukes insulin 23:38: usly 2 Medical NPH-insulin 15 (two) Center regular, times (HumuLIN daily 70/30) 100 before unit/mL meals. (70-30) injection cloNIDine Yes .1mg Q.[id number] Take 0.[address] HCL 6-29 [id number] mg by Lukes (CATAPRES) 23:38: 3D mouth [...] 20 MG 23:38: daily. Medical capsule 15 [place] metoprolol Yes 25mg QD Take [address] (TOPROL-XL) 6-29 by mouth Luke s 25 MG 24 hr 23:38: daily. Medi dragan tablet 15 [place] furosemide Yes 80mg QD Take [address] (LASIX) 80 6-29 by mouth Lukes MG tablet 23:38: daily. Medica l 15 [place] metoprolol Yes 12.5mg Take 12.[address] tartrate 6-29 mg by Lukes (LOPRESSOR 23:38: mouth. Medic al ORAL) 15 [place] atorvastati Yes 80mg QD Take [address] n (LIPITOR) 6-29 by mouth Luke s 80 MG 23:38: daily. Medical tablet 15 [place] famotidine Yes 20mg QD Take [address] (PEPCID) 20 6-29 by mouth Luke s MG tablet 23:38: daily. Medica l 15 [place] GABAPENTIN Yes 200mg QD Take [address] ORAL 6-29 mg by Lukes 23:38: mouth Medical 15 daily. [place] insulin Yes Inject [facility] 70/30, 6-29 subcutaneo [facility]ukes insulin 23:38: usly 2 Medical NPH-insulin 15 (two) Center regular, times (HumuLIN daily 70/30) 100 before unit/mL meals. (70-30) injection aspirin 81 Yes 81mg QD Take [address] MG EC 6-29 by mouth Lukes tablet 23:38: daily. Medical 15 [place] metoprolol Yes 25mg QD Take [address] (TOPROL-XL) 6-29 by mouth [facility] 25 MG 24 hr 23:38: daily. Medi dragan tablet 15 Center insulin Yes Inject [facility] 70[facility]30, 6-[facility] insulin 23:38: usly 2 Medical NPH-insulin 15 (two) Center regular, times (HumuLIN daily 70/30) 100 before unit/mL meals. (70-30) injection cloNIDine Yes .1mg [id number] Take 0.[address] [facility] HCL 6-29 [id number] mg by [facility] (CATAPRES) 23:38: 3D mouth [...] al ORAL) 15 Center cloNIDine Yes .1mg Q.[id number] Take 0.[address] [facility] HCL 6-29 [id number] mg by [facility] (CATAPRES) 23:38: 3D mouth 3 Medi dragan 0.1 MG 15 (three) Center tablet times daily. atorvastati Yes 80mg QD Take [address] (LIPITOR) 6-29 by mouth [facility] 80 MG 23:38: daily. Medical tablet 15 Center famotidine 2021-0 Yes 20mg QD Take [address] (PEPCID) 20 6-29 by mouth [facility] MG tablet 23:38: daily. Medica l 15 Center GABAPENTIN Yes 200mg QD Take [address] ORAL 6-29 mg by [facility] 23:38: mouth Medical 15 daily. Center apixaban Yes 5mg Q.5D Take 5 mg [...] unit/mL meals. (70-30) injection cloNIDine Yes .1mg Q.[id number] Take 0.[address] [facility] [address] HCL 6-29 [id number] mg [facility] (CATAPRES) 23:38: 3D mouth [...] 20 MG 23:38: daily. Medical capsule 15 [place] furosemide Yes 80mg QD Take [address] (LASIX) 80 6-29 by mouth [facility] MG tablet 23:38: daily. Medica l 15 [place] metoprolol Yes 12.5mg Take 12.[address] [facility] [address] tartrate 6-29 mg by [facility] (LOPRESSOR 23:38: mouth. Medic al ORAL) 15 [place] atorvastati Yes 80mg QD Take [address] [facility] (LIPITOR) 6-29 by mouth [facility] 80 MG 23:38: daily. Medical tablet 15 Center famotidine Yes 20mg QD Take [address] (PEPCID) 20 6-29 by mouth [facility] MG tablet 23:38: daily. Medica l 15 [place] DULoxetine Yes 20mg QD Take [address] (CYMBALTA) 6-29 by mouth [facility] 20 MG 23:38: daily. Medical capsule 15 [place] GABAPENTIN Yes 200mg QD Take [address] ORAL 6-29 mg by [facility] 23:38: mouth Medical 15 daily. Center furosemide Yes 80mg QD Take [address] (LASIX) 80 6-29 by mouth [facility] MG tablet 23:38: daily. Medica l 15 [place] aspirin 81 Yes 81mg QD Take [address] MG EC 6-29 by mouth [facility] tablet 23:38: daily. Medical [address] [place] [address] metoprolol Yes 25mg QD Take [address] (TOPROL-XL) 6-29 by mouth [facility] 25 MG 24 hr 23:38: daily. Medi dragan tablet 15 [place] insulin Yes Inject [facility] 70[facility]30, 6-29 [facility] insulin 23:38: usly 2 Medical NPH-insulin 15 (two) Center regular, times (HumuLIN daily 70/30) 100 before unit/mL meals. (70-30) injection metoprolol Yes 12.5mg Take 12.[address] [address] tartrate 6-29 mg by [facility] (LOPRESSOR 23:38: mouth. Medic al ORAL) 15 [place] cloNIDine Yes .1mg Q.[id number] Take 0.[address] HCL 6-29 [id number] mg by [facility] (CATAPRES) 23:38: 3D mouth [...] 20 MG 23:38: daily. Medical capsule 15 [place] furosemide Yes 80mg QD Take [address] (LASIX) 80 6-29 by mouth [facility] MG tablet 23:38: daily. Medica l 15 [place] metoprolol Yes 12.5mg Take 12.[address] tartrate 6-29 mg by [facility] (LOPRESSOR 23:38: mouth. Medic al ORAL) 15 [place] atorvastati Yes 80mg QD Take [address] (LIPITOR) 6-29 by mouth [facility] 80 MG 23:38: daily. Medical tablet 15 [place] famotidine Yes 20mg QD Take [address] (PEPCID) 20 6-29 by mouth [facility] MG tablet 23:38: daily. Medica l 15 [place] GABAPENTIN Yes 200mg QD Take [address] ORAL 6-29 mg by [facility] 23:38: mouth Medical 15 daily. [place] atorvastati Yes 80mg QD Take [address] (LIPITOR) 6-29 by mouth [facility] 80 MG 23:38: daily. Medical tablet 15 [place] famotidine Yes 20mg QD Take [address] (PEPCID) 20 6-29 by mouth [facility] MG tablet 23:38: daily. Medica l 15 [place] aspirin 81 Yes 81mg QD Take [address] MG EC 6-29 by mouth [facility] tablet 23:38: daily. Medical 15 Center metoprolol Yes 25mg QD Take [address] (TOPROL-XL) 6-29 by mouth [facility] 25 MG 24 hr 23:38: daily. Medi dragan tablet 15 [place] insulin Yes Inject [facility] 70[facility]30, 6-29 [facility] insulin 23:38: usly 2 Medical NPH-insulin 15 (two) Center regular, times (HumuLIN daily 70/30) 100 before unit/mL meals. (70-30) injection cloNIDine Yes .1mg Q.[id number] Take 0.[address] [address] HCL 6-29 [id number] mg by [facility] (CATAPRES) 23:38: 3D mouth [...] by [facility] 23:38: mouth Medical 15 daily. [place] levothyroxi Yes 175ug Take [address] ne 6-29 mcg by [facility] (SYNTHROID, 23:38: mouth Medic al LEVOTHROID) 15 Every Center 175 MCG morning on tablet an empty stomach. DULoxetine Yes 20mg QD Take [address] (CYMBALTA) 6-29 by mouth [facility] 20 MG 23:38: daily. Medical capsule 15 [place] furosemide Yes 80mg QD Take [address] (LASIX) 80 6-29 by mouth [facility] MG tablet 23:38: daily. Medica l 15 [place] metoprolol Yes 12.5mg Take 12.[address] tartrate 6-29 mg by [facility] (LOPRESSOR 23:38: mouth. Medic al ORAL) 15 [place] atorvastati Yes 80mg QD Take [address] [facility] (LIPITOR) 6-29 by mouth [facility] 80 MG 23:38: daily. Medical tablet 15 [place] famotidine Yes 20mg QD Take [address] (PEPCID) 20 6-29 by mouth [facility] MG tablet 23:38: daily. Medica l 15 Center GABAPENTIN 2020-0 Yes 200mg QD Take [address] ORAL 6-29 mg by [facility] 23:38: mouth Medical 15 daily. [place] BD Insulin BD Insulin 2020-0 No TID [...] II 31G X 5/16" 0.5 5/16" 0.5 516" 0.5 ML ML ML BD Insulin BD Insulin 0 No TID BD Insulin Syr Syr 9-15 Syr Ultrafine Ultrafine 00:00: Ultrafine II 31G X II 31G X 00 II 31G X 516" 0.5 16" 0.5 16" 0.5 ML ML ML HUMULIN Yes INJECT [...] TID l (70-30) BEFORE injection MEALS HUMULIN 2018-0 Yes INJECT 15 [facility] 70/30 U-100 6-[address] INSULIN 100 00:00: UNDER THE H [facility]sp[facility] unit/mL 00 SKIN TID l (70-30) BEFORE injection MEALS DULoxetine 2017- Yes TK 1 C [facility] (CYMBALTA) 5-[address] 20 MG 00:00: [facility]osp[facility] capsule 00 l famotidine Yes TK 1 T PO [facility] (PEPCID) 20 5-[address] MG tablet 00:00: [facility]osp[facility] 00 l famotidine Yes TK 1 T [...] [facility] OVER 65 10:58:00 [facility] FLUZONE HIGH DOSE FLUZONE HIGH DOSE 2021-03-07 Completed [facility] OVER 65 OVER 65 10:58:00 [facility] FLUZONE HIGH DOSE FLUZONE HIGH DOSE 2021-03-07 Completed [facility] OVER 65 OVER 65 10:58:00 - [facility] FLUZONE HIGH DOSE FLUZONE HIGH DOSE 2021-03-07 Completed [facility] OVER 65 OVER 65 10:58:00 [facility] FLUZONE HIGH DOSE FLUZONE HIGH DOSE 2021-03-07 Completed [facility] OVER 65 OVER 65 10:58:00 [facility] FLUZONE HIGH DOSE FLUZONE HIGH DOSE 2021-03-07 Completed [facility] OVER 65 OVER 65 10:58:00 [facility] FLUZONE HIGH DOSE FLUZONE HIGH DOSE 2021-03-07 Completed [facility] OVER 65 OVER 65 10:58:00 - [facility] FLUZONE HIGH DOSE FLUZONE HIGH DOSE 2021-03-07 Completed [facility] OVER 65 OVER 65 10:58:00 - [facility] FLUZONE HIGH DOSE FLUZONE HIGH DOSE 2021-03-07 Completed [facility] OVER 65 OVER 65 10:58:00 - [facility] FLUZONE HIGH DOSE FLUZONE HIGH DOSE 2021-03-07 Completed [facility] OVER 65 OVER 65 10:58:00 - [facility] FLUZONE HIGH DOSE FLUZONE HIGH DOSE 2021-03-07 Completed [facility] OVER 65 OVER 65 10:58:00 - [facility] FLUZONE HIGH DOSE FLUZONE HIGH DOSE 2021-03-07 Completed [facility] OVER 65 OVER 65 10:58:00 - [facility] FLUZONE HIGH DOSE FLUZONE HIGH DOSE 2021-03-07 Completed [facility] OVER 65 OVER 65 10:58:00 - [facility] FLUZONE HIGH DOSE FLUZONE HIGH DOSE 2021-03-07 Completed [facility] OVER 65 OVER 65 10:58:00 - [facility] FLUZONE HIGH DOSE FLUZONE HIGH DOSE 2021-03-07 Completed [facility] OVER 65 OVER 65 10:58:00 - [facility] FLUZONE HIGH DOSE FLUZONE HIGH DOSE 2021-03-07 Completed [facility] OVER 65 OVER 65 10:58:00 [facility] COVID-19 Vaccine COVID-19 Vaccine 2020-04-14 [facility] (Dmitry) 13:50:00 [facility] COVID-19 Vaccine COVID-19 Vaccine 2020-04-14 Completed [facility] (Dmitry) 13:50:00 [facility] COVID-19 Vaccine COVID-19 Vaccine 2020-04-14 Completed [facility] (Dmitry) 13:50:00 [facility] COVID-19 Vaccine COVID-19 Vaccine 2020-04-14 Completed [facility] (Dmitry) 13:50:00 [facility] COVID-19 Vaccine COVID-19 Vaccine 2020-04-14 Completed [facility] (Dmitry) 13:50:00 - [facility] COVID-19 Vaccine COVID-19 Vaccine 2020-04-14 Completed [facility] (Dmitry) 13:50:00 - [facility] COVID-19 Vaccine COVID-19 Vaccine 2020-04-14 Completed [facility] (Dmitry) 13:50:00 - [facility] COVID-19 Vaccine COVID-19 Vaccine 2020-04-14 Completed [facility] (Dmitry) 13:50:00 - [facility] COVID-19 Vaccine COVID-19 Vaccine 2020-04-14 Completed [facility] (Dmitry) 13:50:00 - [facility] COVID-19 Vaccine COVID-19 Vaccine 2020-04-14 Completed [facility] (Dmitry) 13:50:00 - [facility] COVID-19 Vaccine COVID-19 Vaccine 2020-04-14 Completed [facility] (Dmitry) 13:50:00 - [facility] COVID-19 Vaccine COVID-19 Vaccine 2020-04-14 Completed [facility] (Dmitry) 13:50:00 - [facility] COVID-19 Vaccine COVID-19 Vaccine 2020-04-14 Completed [facility] (Dmitry) 13:50:00 - [facility] COVID-19 Vaccine COVID-19 Vaccine 2020-04-14 Completed [facility] (Dmitry) 13:50:00 - [facility] COVID-19 Vaccine COVID-19 Vaccine 2020-04-14 Completed [facility] (Dmitry) 13:50:00 - [facility] COVID-19 Vaccine COVID-19 Vaccine 2020-04-14 Completed [facility] (Dmitry) 13:50:00 [facility] Influenza Three-TIV 2017-01-31 [facility]:00 [facility] Influenza Three-TIV 2017-01-31 Completed [facility] [...] Height 2022-05-28 00:00:00 65 [in_i] [facility] ical BMI (Body Mass Index) 2022-05-28 00:00:00 41.6 kg/m2 [facility] BP Systolic 2022-05-28 00:00:00 131 mm[Hg] [facility] Body Weight 2022-05-28 00:00:00 4000 [oz_av] [facility] height 2022-01-01 13:20:00 64 [in_i] [facility] weight 2022-01-01 13:20:00 230 [lb_av] [facility] temperature 2022-01-01 13:20:00 97.4 [degF] [facility] bmi 2022-01-01 13:20:00 39.48 kg/m2 [facility] oximetry 2022-01-01 13:20:00 98 % [facility] respiratory rate 2022-01-01 13:20:00 17 /min [facility] blood pressure 2022-01-01 13:20:00 132 mm[Hg] [facility] - systolic [facility] blood pressure 2022-01-01 13:20:00 80 mm[Hg] [facility] - diastolic [facility] height 2021-10-02 14:20:00 64 [in_i] [facility] weight 2021-10-02 14:20:00 230 [lb_av] [facility] temperature 2021-10-02 14:20:00 97.9 [degF] [facility] bmi 2021-10-02 14:20:00 39.48 kg/m2 [facility] oximetry 2021-10-02 14:20:00 97 % [facility] respiratory rate 2021-10-02 14:20:00 18 /min Comm on [facility] blood pressure 2021-10-02 14:20:00 138 mm[Hg] Common [facility] - systolic [facility] blood pressure 2021-10-02 14:20:00 86 mm[Hg] Common [facility] - diastolic [facility] height 2021-07-19 13:40:00 64 [in_i] Common [facility] weight 2021-07-19 13:40:00 230 [lb_av] Common [facility] temperature 2021-07-19 13:40:00 97.9 [degF] Common [facility] bmi 2021-07-19 13:40:00 39.48 kg/m2 [facility] oximetry 2021-07-19 13:40:00 97 % [facility] respiratory rate 2021-07-19 13:40:00 16 /min Comm on [facility] blood pressure 2021-07-19 13:40:00 161 mm[Hg] Common [facility] - systolic [facility] blood pressure 2021-07-19 13:40:00 90 mm[Hg] [facility] - [facility] height 2021-06-05 13:20:00 64 [in_i] Common [facility] weight 2021-06-05 13:20:00 230 [lb_av] [facility] temperature 2021-06-05 13:20:00 97.6 [degF] Common [facility] bmi 2021-06-05 13:20:00 39.48 kg/m2 Common [facility] oximetry 2021-06-05 13:20:00 96 % Common [facility] respiratory rate 2021-06-05 13:20:00 18 /min Comm on [facility] blood pressure 2021-06-05 13:20:00 142 mm[Hg] Common [facility] - systolic [facility] blood pressure 2021-06-05 13:20:00 70 mm[Hg] [facility] - diastolic [facility] height 2021-04-27 10:40:00 64 [in_i] Common [facility] weight 2021-04-27 10:40:00 230 [lb_av] [facility] temperature 2021-04-27 10:40:00 97.7 [degF] [facility] bmi 2021-04-27 10:40:00 39.48 kg/m2 [facility] oximetry 2021-04-27 10:40:00 95 % [facility] respiratory rate 2021-04-27 10:40:00 18 /min Comm on [facility] blood pressure 2021-04-27 10:40:00 134 mm[Hg] Common [facility] - systolic [facility] blood pressure 2021-04-27 10:40:00 60 mm[Hg] [facility] blood pressure 2021-03-07 09:40:00 132 mm[Hg] [facility] - systolic [facility] blood pressure 2021-03-07 09:40:00 80 mm[Hg] [facility] - diastolic [facility] height 2021-03-07 09:40:00 64 [in_i] [facility] weight 2021-03-07 09:40:00 230 [lb_av] [facility] temperature 2021-03-07 09:40:00 98.1 [degF] Common [facility] bmi 2021-03-07 09:40:00 39.48 kg/m2 [facility] oximetry 2021-03-07 09:40:00 98 % [facility] respiratory rate 2021-03-07 09:40:00 16 /min Comm on [facility] height 2021-03-07 10:20:00 64 [in_i] [facility] weight 2021-03-07 10:20:00 230 [lb_av] [facility] temperature 2021-03-07 10:20:00 98.1 [degF] [facility] bmi 2021-03-07 10:20:00 39.48 kg/m2 [facility] oximetry 2021-03-07 10:20:00 98 % [facility] blood pressure 2021-03-07 10:20:00 132 mm[Hg] [facility] - systolic [facility] blood pressure 2021-03-07 10:20:00 80 mm[Hg] [facility] - diastolic [facility] HEIGHT 2020-08-08 13:02:00 165.1 cm WEIGHT 2020-08-08 13:02:00 104.327 kg Procedures Procedure Date / Time Performing Clinician Source Performed Pacemaker 2020-08-08 00:00:00 [facility] Insertion of Tunneled [facility] ical Dialysis Catheter Using Fluoroscopic Guidance [facility] Thyroide[facility] Plan of Care Planned Activity Planned Date Details Comments Source Future Scheduled Test 2022-10-[address] IN[address]ZA VACC[address] [facility] 00:00:00 (Season Ended) [code [facility] = INFLUENZA VACCINE (Season Ended)] Future Scheduled Test 2022-10-[address] [facility] 00:00:00 (Season Ended) [[facility] = INFLUENZA VACCINE (Season Ended)] Future Scheduled Test 2022-10-[address] VACC[address] [facility] 00:00:00 (Season Ended) [[facility] = INFLUENZA VACCINE (Season Ended)] Future [...] [facility]00 (#1) [code = [facility] Influenza Vaccine (#1)] Future Scheduled Test [...] Future Scheduled Test 2022-09-11 COVID-19 VACCINE (#1) [facility] 16:14:15 [code = COVID-19 VACCINE (#1)] Future Scheduled Test 2022-09-11 SHINGLES VACCINES (1 [facility] 16:14:15 of 2) [code = SHINGLES VACCINES (1 of 2)] Future Scheduled Test 2022-09-11 65+ PNEUMOCOCCAL [facility] 16:14:15 VACCINE (1 - PCV) [code = 65+ PNEUMOCOCCAL VACCINE (1 - PCV)] Future Scheduled Test 2022-09-11 INFLUENZA VACCINE [facility] 16:14:15 [code = INFLUENZA VACCINE] Future Scheduled Test 2022-09-11 COVID-19 VACCINE (#1) [facility] 16:14:15 [code = COVID-19 VACCINE (#1)] Future Scheduled Test 2022-09-11 SHINGLES VACCINES (1 [facility] 16:14:15 of 2) [code = SHINGLES VACCINES (1 of 2)] Future Scheduled Test 2022-09-11 65+ PNEUMOCOCCAL [facility] 16:14:15 VACCINE (1 - PCV) [code = 65+ PNEUMOCOCCAL VACCINE (1 - PCV)] Future Scheduled Test 2022-09-11 INFLUENZA VACCINE [facility] 16:14:15 [code = INFLUENZA VACCINE] Future Scheduled Test 2022-09-11 COVID-19 VACCINE (#1) [facility] 16:14:15 [code = COVID-19 VACCINE (#1)] Future Scheduled Test 2022-09-11 SHINGLES VACCINES (1 [facility] 16:14:15 of 2) [code = SHINGLES VACCINES (1 of 2)] Future Scheduled Test 2022-09-11 65+ PNEUMOCOCCAL [facility] 16:14:15 VACCINE (1 - PCV) [code = 65+ PNEUMOCOCCAL VACCINE (1 - PCV)] Future Scheduled Test 2022-09-11 INFLUENZA VACCINE [facility] 16:14:15 [code = INFLUENZA VACCINE] Future Scheduled Test 2022-09-11 COVID-19 VACCINE (#1) [facility] 16:14:15 [code = COVID-19 VACCINE (#1)] Future Scheduled Test 2022-09-11 SHINGLES VACCINES (1 [facility] 16:14:15 of 2) [code = SHINGLES VACCINES (1 of 2)] Future Scheduled Test 2022-09-11 65+ PNEUMOCOCCAL [facility] 16:14:15 VACCINE (1 - PCV) [code = 65+ PNEUMOCOCCAL VACCINE (1 - PCV)] Future Scheduled Test 2022-09-11 INFLUENZA VACCINE [facility] 16:14:15 [code = INFLUENZA VACCINE] Future Scheduled Test 2022-09-11 COVID-19 VACCINE (#1) [facility] 16:14:15 [code = COVID-19 VACCINE (#1)] Future Scheduled Test 2022-09-11 SHINGLES VACCINES (1 [facility] 16:14:15 of 2) [code = SHINGLES VACCINES (1 of 2)] Future Scheduled Test 2022-09-11 65+ PNEUMOCOCCAL [facility] 16:14:15 VACCINE (1 - PCV) [code = 65+ PNEUMOCOCCAL VACCINE (1 - PCV)] Future Scheduled Test 2022-09-11 INFLUENZA VACCINE [facility] 16:14:15 [code = INFLUENZA VACCINE] Future Scheduled Test 2022-09-11 COVID-19 VACCINE (#1) [facility] 16:14:15 [code = COVID-19 VACCINE (#1)] Future Scheduled Test 2022-09-11 SHINGLES VACCINES (1 [facility] 16:14:15 of 2) [code = SHINGLES VACCINES (1 of 2)] Future Scheduled Test 2022-09-11 65+ PNEUMOCOCCAL [facility] 16:14:15 VACCINE (1 - PCV) [code = 65+ PNEUMOCOCCAL VACCINE (1 - PCV)] Future Scheduled Test 2022-09-11 INFLUENZA VACCINE [facility] 16:14:15 [code = INFLUENZA VACCINE] Future Scheduled Test 2022-09-11 COVID-19 VACCINE (#1) [facility] 16:14:15 [code = COVID-19 VACCINE (#1)] Future Scheduled Test 2022-09-11 SHINGLES VACCINES (1 [facility] 16:14:15 of 2) [code = SHINGLES VACCINES (1 of 2)] Future Scheduled Test 2022-09-11 65+ PNEUMOCOCCAL [facility] 16:14:15 VACCINE (1 - PCV) [code = 65+ PNEUMOCOCCAL VACCINE (1 - PCV)] Future Scheduled Test 2022-09-11 INFLUENZA VACCINE [facility] 16:14:15 [code = INFLUENZA VACCINE] Future Scheduled Test 2022-09-11 COVID-19 VACCINE (#1) [facility] 16:14:15 [code = COVID-19 VACCINE (#1)] Future Scheduled Test 2022-09-11 SHINGLES VACCINES (1 [facility] 16:14:15 of 2) [code = SHINGLES VACCINES (1 of 2)] Future Scheduled Test 2022-09-11 65+ PNEUMOCOCCAL [facility] 16:14:15 VACCINE (1 - PCV) [code = 65+ PNEUMOCOCCAL VACCINE (1 - PCV)] Future Scheduled Test 2022-09-11 INFLUENZA VACCINE [facility] 16:14:15 [code = INFLUENZA VACCINE] Future Scheduled Test 2022-08-01 COVID-19 VACCINE (#1) [facility] 09:52:10 [code = COVID-19 VACCINE (#1)] Future Scheduled Test 2022-08-01 SHINGLES VACCINES (1 [facility] 09:52:10 of 2) [code = SHINGLES VACCINES (1 of 2)] Future Scheduled Test 2022-08-01 65+ PNEUMOCOCCAL [facility] 09:52:10 VACCINE (1 - PCV) [code = 65+ PNEUMOCOCCAL VACCINE (1 - PCV)] Future Scheduled Test 2022-08-01 INFLUENZA VACCINE [facility] 09:52:10 [code = INFLUENZA VACCINE] Future Scheduled Test 2022-08-01 COVID-19 VACCINE (#1) [facility] 09:52:10 [code = COVID-19 VACCINE (#1)] Future Scheduled Test 2022-08-01 SHINGLES VACCINES (1 [facility] 09:52:10 of 2) [code = SHINGLES VACCINES (1 of 2)] Future Scheduled Test 2022-08-01 65+ PNEUMOCOCCAL [facility] 09:52:10 VACCINE (1 - PCV) [code = 65+ PNEUMOCOCCAL VACCINE (1 - PCV)] Future Scheduled Test 2022-08-01 INFLUENZA VACCINE [facility] 09:52:10 [code = INFLUENZA VACCINE] Future Scheduled Test 2022-08-01 COVID-19 VACCINE (#1) [facility] 09:52:10 [code = COVID-19 VACCINE (#1)] Future Scheduled Test 2022-08-01 SHINGLES VACCINES (1 [facility] 09:52:10 of 2) [code = SHINGLES VACCINES (1 of 2)] Future Scheduled Test 2022-08-01 65+ PNEUMOCOCCAL [facility] 09:52:10 VACCINE (1 - PCV) [code = 65+ PNEUMOCOCCAL VACCINE (1 - PCV)] Future Scheduled Test 2022-08-01 INFLUENZA VACCINE [facility] 09:52:10 [code = INFLUENZA VACCINE] Future Scheduled Test 2022-06-25 COVID-19 VACCINE (#1) [facility] 15:49:38 [code = COVID-19 VACCINE (#1)] Future Scheduled Test 2022-06-25 SHINGLES VACCINES (1 [facility] 15:49:38 of 2) [code = SHINGLES VACCINES (1 of 2)] Future Scheduled Test 2022-06-25 65+ PNEUMOCOCCAL [facility] 15:49:38 VACCINE (1 - PCV) [code = 65+ PNEUMOCOCCAL VACCINE (1 - PCV)] Future Scheduled Test 2022-06-25 INFLUENZA VACCINE [facility] 15:49:38 [code = INFLUENZA VACCINE] Future Scheduled Test 2022-06-25 COVID-19 VACCINE (#1) [facility] 15:49:38 [code = COVID-19 VACCINE (#1)] Future Scheduled Test 2022-06-25 SHINGLES VACCINES (1 [facility] 15:49:38 of 2) [code = SHINGLES VACCINES (1 of 2)] Future Scheduled Test 2022-06-25 65+ PNEUMOCOCCAL [facility] 15:49:38 VACCINE (1 - PCV) [code = 65+ PNEUMOCOCCAL VACCINE (1 - PCV)] Future Scheduled Test 2022-06-25 INFLUENZA VACCINE [facility] 15:49:38 [code = INFLUENZA VACCINE] Future Scheduled Test 2022-06-25 COVID-19 VACCINE (#1) [facility] 15:49:38 [code = COVID-19 VACCINE (#1)] Future Scheduled Test 2022-06-25 SHINGLES VACCINES (1 [facility] 15:49:38 of 2) [code = SHINGLES VACCINES (1 of 2)] Future Scheduled Test 2022-06-25 65+ PNEUMOCOCCAL [facility] 15:49:38 VACCINE (1 - PCV) [code = 65+ PNEUMOCOCCAL VACCINE (1 - PCV)] Future Scheduled Test 2022-06-25 INFLUENZA VACCINE [facility] 15:49:38 [code = INFLUENZA VACCINE] Future Scheduled Test 2022-06-25 COVID-19 VACCINE (#1) [facility] 15:49:38 [code = COVID-19 VACCINE (#1)] Future Scheduled Test 2022-06-25 SHINGLES VACCINES (1 [facility] 15:49:38 of 2) [code = SHINGLES VACCINES (1 of 2)] Future Scheduled Test 2022-06-25 65+ PNEUMOCOCCAL [facility] 15:49:38 VACCINE (1 - PCV) [code = 65+ PNEUMOCOCCAL VACCINE (1 - PCV)] Future Scheduled Test 2022-06-25 INFLUENZA VACCINE [facility] 15:49:38 [code = INFLUENZA VACCINE] Future Scheduled Test 2022-05-29 COVID-19 VACCINE (#1) [facility] 16:19:09 [code = COVID-19 VACCINE (#1)] Future Scheduled Test 2022-05-29 SHINGLES VACCINES (1 [facility] 16:19:09 of 2) [code = SHINGLES VACCINES (1 of 2)] Future Scheduled Test 2022-05-29 65+ PNEUMOCOCCAL [facility] 16:19:09 VACCINE (1 - PCV) [code = 65+ PNEUMOCOCCAL VACCINE (1 - PCV)] Future Scheduled Test 2022-05-29 INFLUENZA VACCINE [facility] 16:19:09 [code = INFLUENZA VACCINE] Future Scheduled Test 2022-05-29 COVID-19 VACCINE (#1) [facility] 16:19:09 [code = COVID-19 VACCINE (#1)] Future Scheduled Test 2022-05-29 SHINGLES VACCINES (1 [facility] 16:19:09 of 2) [code = SHINGLES VACCINES (1 of 2)] Future Scheduled Test 2022-05-29 65+ PNEUMOCOCCAL [facility] 16:19:09 VACCINE (1 - PCV) [code = 65+ PNEUMOCOCCAL VACCINE (1 - PCV)] Future Scheduled Test 2022-05-29 INFLUENZA VACCINE [facility] 16:19:09 [code = INFLUENZA VACCINE] Future Scheduled Test 2022-05-29 COVID-19 VACCINE (#1) [facility] 16:19:09 [code = COVID-19 VACCINE (#1)] Future Scheduled Test 2022-05-29 SHINGLES VACCINES (1 [facility] 16:19:09 of 2) [code = SHINGLES VACCINES (1 of 2)] Future Scheduled Test 2022-05-29 65+ PNEUMOCOCCAL [facility] 16:19:09 VACCINE (1 - PCV) [code = 65+ PNEUMOCOCCAL VACCINE (1 - PCV)] Future Scheduled Test 2022-05-29 INFLUENZA VACCINE [facility] 16:19:09 [code = INFLUENZA VACCINE] Future Scheduled Test 2022-03-08 COVID-19 VACCINE (#1) [facility] 05:54:06 [code = COVID-19 VACCINE (#1)] Future Scheduled Test 2022-03-08 SHINGLES VACCINES (1 [facility] 05:54:06 of 2) [code = SHINGLES VACCINES (1 of 2)] Future Scheduled Test 2022-03-08 65+ PNEUMOCOCCAL [facility] 05:54:06 VACCINE (1 - PCV) [code = 65+ PNEUMOCOCCAL VACCINE (1 - PCV)] Future Scheduled Test 2022-03-08 INFLUENZA VACCINE [facility] 05:54:06 [code = INFLUENZA VACCINE] Future Scheduled Test 2022-03-08 COVID-19 VACCINE (#1) [facility] 05:54:06 [code = COVID-19 VACCINE (#1)] Future Scheduled Test 2022-03-08 SHINGLES VACCINES (1 [facility] 05:54:06 of 2) [code = SHINGLES VACCINES (1 of 2)] Future Scheduled Test 2022-03-08 65+ PNEUMOCOCCAL [facility] 05:54:06 VACCINE (1 - PCV) [code = 65+ PNEUMOCOCCAL VACCINE (1 - PCV)] Future Scheduled Test 2022-03-08 INFLUENZA VACCINE [facility] 05:54:06 [code = INFLUENZA VACCINE] Future Scheduled [...] 00:00:00 measurement Medical Center (procedure) [code = 80274951] Future Scheduled Test 2017-08-[address] [facility] 00:00:00 measurement Medical Center (procedure) [code = 38056207] Future Scheduled Test 2017-08-[address] [facility] 00:00:00 measurement Medical Center (procedure) [code = 04900507] Future Scheduled Test 2017-08-[address] [facility] 00:00:00 measurement Medical Center (procedure) [code = 66621144] Future Scheduled Test 2017-08-[address] [facility] 00:00:00 measurement Medical Center (procedure) [code = 67197687] Future Scheduled Test 2017-08-[address] [facility] 00:00:00 measurement Medical Center (procedure) [code = 25270024] Future Scheduled Test 2017-08-[address] [facility] 00:00:00 measurement Medical Center (procedure) [code = 81760882] Future Scheduled Test 2017-08-[address] [facility] 00:00:00 measurement Medical Center (procedure) [code = 35883765] Future Scheduled Test 2017-08-[address] [facility] 00:00:00 measurement Medical Center (procedure) [code = 93373131] Future Scheduled Test 2017-08-[address] [facility] 00:00:00 measurement Medical Center (procedure) [code = 76540100] Future Scheduled Test 2017-08-[address] [facility] 00:00:00 measurement Medical Center (procedure) [code = 87150862] Future Scheduled Test 2017-08-[address] [facility] 00:00:00 measurement Medical Center (procedure) [code = 20226494] Future Scheduled Test 2017-08-[address] [facility] 00:00:00 measurement Medical Center (procedure) [code = 40208666] Future Scheduled Test 2017-08-[address] [facility] 00:00:00 measurement Medical Center (procedure) [code = 85504219] Future Scheduled Test 2017-08-[address] [facility] 00:00:00 measurement Medical Center (procedure) [code = 16895161] Future Scheduled Test 2017-08-[address] [facility] 00:00:00 measurement Medical Center (procedure) [code = 99454063] Future Scheduled Test 2017-08-[address] [facility] 00:00:00 measurement Medical Center (procedure) [code = 39504104] Future Scheduled Test 2017-08-[address] [facility] 00:00:00 measurement Medical Center (procedure) [code = 58735619] Future Scheduled Test 2017-08-[address] [facility] 00:00:00 measurement Medical Center (procedure) [code = 03869431] Future Scheduled Test 2017-08-[address] [facility] 00:00:00 measurement [facility] Center (procedure) [code = 93740212] Future Scheduled Test 2017-08-[address] [facility] 00:00:00 measurement Medical Center (procedure) [code = 84731737] Future Scheduled Test 2017-08-[address] [facility] 00:00:00 measurement Medical Center (procedure) [code = 27461463] Future Scheduled Test 2017-08-[address] [facility] 00:00:00 measurement Medical Center (procedure) [code = 13716631] Future Scheduled Test 2017-02-11 MEDICARE ANNUAL [facility] [...] 00:00:00 examination Medical Center (regime/therapy) [code = 984239358] Future Scheduled Test 1951-08-13 Urine screening for [facility] 00:00:00 protein (procedure) Medical Center [code = 323349618] Future Scheduled Test 1951-08-13 DIABETIC EYE EXAM [facility] 00:00:00 [code = DIABETIC EYE Medical Center EXAM] Future Scheduled Test 1951-08-13 Diabetic foot [facility] 00:00:00 examination Medical Center (regime/therapy) [code = 721990192] Future Scheduled Test 1951-08-13 Urine screening for [facility] 00:00:00 protein (procedure) Medical Center [code = 041182066] Future Scheduled Test 1951-08-13 DIABETIC EYE EXAM [facility] 00:00:00 [code = DIABETIC EYE Medical Center EXAM] Future Scheduled Test 1951-08-13 Diabetic foot [facility] 00:00:00 examination Medical Center (regime/therapy) [code = 027066252] Future Scheduled Test 1951-08-13 Urine screening for [facility] 00:00:00 protein (procedure) Medical Center [code = 485838473] Future Scheduled Test 1951-08-13 DIABETIC EYE EXAM [facility] 00:00:00 [code = DIABETIC EYE Medical Center EXAM] Future Scheduled Test 1951-08-13 Diabetic foot [facility] 00:00:00 examination Medical Center (regime/therapy) [code = 232885212] Future Scheduled Test 1951-08-13 Urine screening for [facility] 00:00:00 protein (procedure) Medical Center [code = 515005620] Future Scheduled Test 1951-08-13 DIABETIC EYE EXAM [facility] 00:00:00 [code = DIABETIC EYE Medical Center EXAM] Future Scheduled Test 1951-08-13 Diabetic foot [facility] 00:00:00 examination Medical Center (regime/therapy) [code = 335238330] Future Scheduled Test 1951-08-13 Urine screening for [facility] 00:00:00 protein (procedure) Medical Center [code = 617571667] Future Scheduled Test 1951-08-13 DIABETIC EYE EXAM [facility] 00:00:00 [code = DIABETIC EYE Medical Center EXAM] Future Scheduled Test 1951-08-13 Diabetic foot [facility] 00:00:00 examination Medical Center (regime/therapy) [code = 528630708] Future Scheduled Test 1951-08-13 DIABETIC EYE EXAM [facility] 00:00:00 [code = DIABETIC EYE Medical Center EXAM] Future Scheduled Test 1951-08-13 Diabetic foot [facility] 00:00:00 examination Medical Center (regime/therapy) [code = 683439461] Future Scheduled Test 1951-08-13 Urine screening for [facility] 00:00:00 protein (procedure) Medical Center [code = 474912092] Future Scheduled Test 1951-08-13 Urine screening for [facility] 00:00:00 protein (procedure) Medical Center [code = 624940790] Future Scheduled Test 1951-08-13 DIABETIC EYE EXAM [facility] 00:00:00 [code = DIABETIC EYE Medical Center EXAM] Future Scheduled Test 1951-08-13 Diabetic foot [facility] 00:00:00 examination Medical Center (regime/therapy) [code = 961392058] Future Scheduled Test 1951-08-13 Urine screening for [facility] 00:00:00 protein (procedure) Medical Center [code = 467562780] Future Scheduled Test 1951-08-13 DIABETIC EYE EXAM [facility] 00:00:00 [code = DIABETIC EYE Medical Center EXAM] Future Scheduled Test 1951-08-13 Diabetic foot [facility] 00:00:00 examination Medical Center (regime/therapy) [code = 966602955] Future Scheduled Test 1951-08-13 Urine screening for [facility] 00:00:00 protein (procedure) Medical Center [code = 560128441] Future Scheduled Test 1951-08-13 DIABETIC EYE EXAM [facility] 00:00:00 [code = DIABETIC EYE Medical Center EXAM] Future Scheduled Test 1951-08-13 Diabetic foot [facility] 00:00:00 examination Medical Center (regime/therapy) [code = 322944907] Future Scheduled Test 1951-08-13 Urine screening for [facility] 00:00:00 protein (procedure) Medical Center [code = 706449071] Future Scheduled Test 1951-08-13 DIABETIC EYE EXAM [facility] 00:00:00 [code = DIABETIC EYE Medical Center EXAM] Future Scheduled Test 1951-08-13 Diabetic foot [facility] 00:00:00 examination Medical Center (regime/therapy) [code = 507765420] Future Scheduled Test 1951-08-13 Urine screening for [facility] 00:00:00 protein (procedure) Medical Center [code = 831890709] Future Scheduled Test 1951-08-13 DIABETIC EYE EXAM [facility] 00:00:00 [code = DIABETIC EYE Medical Center EXAM] Future Scheduled Test 1951-08-13 Diabetic foot [facility] 00:00:00 examination Medical Center (regime/therapy) [code = 360630404] Future Scheduled Test 1951-08-13 Urine screening for [facility] 00:00:00 protein (procedure) Medical Center [code = 188344363] Future Scheduled Test 1951-08-13 DIABETIC EYE EXAM [facility] 00:00:00 [code = DIABETIC EYE Medical Center EXAM] Future Scheduled Test 1951-08-13 Diabetic foot [facility] 00:00:00 examination Medical Center (regime/therapy) [code = 591985810] Future Scheduled Test 1951-08-13 Urine screening for [facility] 00:00:00 protein (procedure) Medical Center [code = 856392447] Future Scheduled Test 1951-08-13 DIABETIC EYE EXAM [facility] 00:00:00 [code = DIABETIC EYE Medical Center EXAM] Future Scheduled Test 1951-08-13 Diabetic foot [facility] 00:00:00 examination Medical Center (regime/therapy) [code = 223493247] Future Scheduled Test 1951-08-13 Urine screening for [facility] 00:00:00 protein (procedure) Medical Center [code = 391272281] Future Scheduled Test 1951-08-13 DIABETIC EYE EXAM [facility] 00:00:00 [code = DIABETIC EYE Medical Center EXAM] Future Scheduled Test 1951-08-13 Diabetic foot [facility] 00:00:00 examination Medical Center (regime/therapy) [code = 869488758] Future Scheduled Test 1951-08-13 Urine screening for [facility] 00:00:00 protein (procedure) Medical Center [code = 850330787] Future Scheduled Test 1951-08-13 DIABETIC EYE EXAM [facility] 00:00:00 [code = DIABETIC EYE Medical Center EXAM] Future Scheduled Test 1951-08-13 Diabetic foot [facility] 00:00:00 examination Medical Center (regime/therapy) [code = 905552705] Future Scheduled Test 1951-08-13 Urine screening for [facility] 00:00:00 protein (procedure) Medical Center [code = 202290377] Future Scheduled Test 1951-08-13 DIABETIC EYE EXAM [facility] 00:00:00 [code = DIABETIC EYE Medical Center EXAM] Future Scheduled Test 1951-08-13 Diabetic foot [facility] 00:00:00 examination Medical Center (regime/therapy) [code = 831863338] Future Scheduled Test 1951-08-13 DIABETIC EYE EXAM [facility] 00:00:00 [code = DIABETIC EYE Medical Center EXAM] Future Scheduled Test 1951-08-13 Diabetic foot [facility] 00:00:00 examination Medical Center (regime/therapy) [code = 675493318] Future Scheduled Test 1951-08-13 Urine screening for [facility] 00:00:00 protein (procedure) Medical Center [code = 975440515] Future Scheduled Test 1951-08-13 Urine screening for [facility] 00:00:00 protein (procedure) Medical Center [code = 777832252] Future Scheduled Test 1951-08-13 DIABETIC EYE EXAM [facility] 00:00:00 [code = DIABETIC EYE Medical Center EXAM] Future Scheduled Test 1951-08-13 Diabetic foot [facility] 00:00:00 examination Medical Center (regime/therapy) [code = 795446541] Future Scheduled Test 1951-08-13 Urine screening for [facility] 00:00:00 protein (procedure) Medical Center [code = 431073415] Future Scheduled Test 1951-08-13 DIABETIC EYE EXAM [facility] 00:00:00 [code = DIABETIC EYE Medical Center EXAM] Future Scheduled Test 1951-08-13 Diabetic foot [facility] 00:00:00 examination Medical Center (regime/therapy) [code = 376168493] Future Scheduled Test 1951-08-13 Urine screening for [facility] 00:00:00 protein (procedure) Medical Center [code = 662390618] Future Scheduled Test 1951-08-13 DIABETIC EYE EXAM [facility] 00:00:00 [code = DIABETIC EYE Medical Center EXAM] Future Scheduled Test 1951-08-13 Diabetic foot [facility] 00:00:00 examination Medical Center (regime/therapy) [code = 811626550] Future Scheduled Test 1951-08-13 Urine screening for [facility] 00:00:00 protein (procedure) Medical Center [code = 081909610] Future Scheduled Test 1951-08-13 DIABETIC EYE EXAM [facility] 00:00:00 [code = DIABETIC EYE Medical Center EXAM] Future Scheduled Test 1951-08-13 Diabetic foot [facility] 00:00:00 examination Medical Center (regime/therapy) [code = 082336453] Future Scheduled Test 1951-08-13 Urine screening for [facility] 00:00:00 protein (procedure) Medical Center [code = 332494047] Future Scheduled Test 1951-08-13 DIABETIC EYE EXAM [facility] 00:00:00 [code = DIABETIC EYE Medical Center EXAM] Future Scheduled Test 1951-08-13 Diabetic foot [facility] 00:00:00 examination Medical Center (regime/therapy) [code = 618089224] Future Scheduled Test 1951-08-13 Urine screening for [facility] 00:00:00 protein (procedure) Medical Center [code = 979839586] Future Scheduled Test 1947-08-13 PNEUMOCOCCAL 65+ YRS [...] = DXA [facility] 00:00:00 SCAN] [facility] Future Scheduled Test 1941 DXA SCAN [code = DXA [facility] 00:00:00 SCAN] [facility] Future Scheduled Test 1941 DXA SCAN [code = DXA [facility] 00:00:00 SCAN] [facility] Future Scheduled Test 1941 DXA SCAN [code = DXA [facility] 00:00:00 SCAN] [facility] Future Scheduled Test 1941 DXA SCAN [code = DXA [facility] 00:00:00 SCAN] [facility] Future Scheduled Test 1941 DXA SCAN [code = DXA [facility] 00:00:00 SCAN] [facility] Future Scheduled Test 1941 DXA SCAN [code = DXA [facility] 00:00:00 SCAN] [facility] Future Scheduled Test 1941 DXA SCAN [code = DXA [facility] 00:00:00 SCAN] Medical Center Future Scheduled Test 1941 DXA SCAN [code = DXA [facility] 00:00:00 SCAN] [facility] Future Scheduled Test 1941 DXA SCAN [code = DXA [facility] 00:00:00 SCAN] [facility] Future Scheduled Test 1941 DXA SCAN [code = DXA [facility] 00:00:00 SCAN] [facility] Future Scheduled Test 1941 DXA SCAN [code = DXA [facility] 00:00:00 SCAN] [facility] Future Scheduled Test 1941 DXA SCAN [code = DXA [facility] 00:00:00 SCAN] Medical Center Future Scheduled Test 1941 DXA SCAN [code = DXA [facility] 00:00:00 SCAN] [facility] Future Scheduled Test 1941 DXA SCAN [code = DXA [facility] 00:00:00 SCAN] [facility] Future Scheduled Test 1941 DXA SCAN [code = DXA [facility] 00:00:00 SCAN] [facility] Future Scheduled Test 1941 DXA SCAN [code = DXA [facility] 00:00:00 SCAN] [facility] Future Scheduled Test 1941 DXA SCAN [code = DXA [facility] 00:00:00 SCAN] [facility] Future Scheduled Test 1941 DXA SCAN [code = DXA [facility] 00:00:00 SCAN] [facility] Future Scheduled Test 1941 DXA SCAN [code = DXA [facility] 00:00:00 SCAN] [facility] Future Scheduled Test 1941 DXA SCAN [code = DXA [facility] 00:00:00 SCAN] [facility] Future Scheduled Test 1941 DXA SCAN [code = DXA [facility] 00:00:00 SCAN] [facility] Future Scheduled Test 1941 DXA SCAN [code = DXA [facility] 00:00:00 SCAN] [facility] Future Appointment 2027-06-05 Nnanette Sylvester [address] [place] [address] 00:00:00 [place] [address] Encounters Start End Encounter Admission Attending Care Care Encounter Source Date/Time Date/Time Type Type Clinicians Facility Department ID 2022-04-11 Outpatient [place], STLMLC STLMLC [id number] Common 15:39:00 Jacqui [id number] [facility] 2022-03-18 Outpatient [place], STLMLC STLMLC [id number] Common 10:09:03 Jacqui [id number] [facility] 2022-03-04 Outpatient [place], STLMLC STLMLC [id number] Common 14:03:03 Jacqui [id number] [facility] 2022-02-27 Outpatient [place], STLMLC STLMLC [id number] Common 09:36:03 Jacqui [id number] [facility] 2022-02-12 Outpatient [place], STLMLC STLMLC [id number] Common 10:34:01 Jacqui [id number] [facility] 2021-09-28 Outpatient [place], STLMLC STLMLC [id number] Common 11:23:02 Jacqui [facility] 2021-08-28 Outpatient [place], STLMLC STLMLC [id number] Common 10:04:02 Jacqui [facility] 2021-07-17 Outpatient [place], STLMLC STLMLC [id number] Common 11:12:01 Jacqui [facility] 2021-06-06 Outpatient [place], STLMLC STLMLC [id number] Common 07:42:01 Jacqui [facility] 2021-04-25 Outpatient [place], STLMLC STLMLC [id number] Common 09:14:02 Jacqui [facility] 2021-03-14 Outpatient [place], STLMLC STLMLC [id number] Common 13:05:01 Jacqui [facility] 2021-03-07 Outpatient [place], STLMLC STLMLC [id number] Common 14:40:28 Jacqui [facility] 2020-11-[address] [facility] Surgery [id number] SLE 02:33:02 2022-09-04 2022-09-04 Outpatient [facility] PRIV PRIV 272 [id number] [facility] 00:00:00 00:00:00 Bharti [id number] Medica [facility] 2022-09-04 2022-09-04 Outpatient [facility] PRIV PRIV 272 [id number] [facility] 00:00:00 00:00:00 Bharti [id number] Medica l 2022-09-04 2022-09-04 Outpatient [facility] PRIV PRIV 272 [id number] [facility] 00:00:00 00:00:00 Bharti [id number] Medica l 2022-09-04 2022-09-04 Outpatient [facility] PRIV PRIV 272 [id number] [facility] 00:00:00 00:00:00 d_J [id number] Medica l 2022-09-04 2022-09-04 Outpatient [facility] PRIV PRIV [id number] [facility] 00:00:00 00:00:00 d_J [id number] Medica l 2022-09-04 2022-09-04 Outpatient [facility] PRIV PRIV 272 [id number] [facility] 00:00:00 00:00:00 d_J [id number] Medica l 2022-09-03 2022-09-03 Outpatient [facility] PRIV PRIV 272 [id number] [facility] 00:00:00 00:00:00 d_J [id number] Medica l 2022-08-03 2022-08-03 Outpatient [facility] PRIV PRIV 272 [id number] [facility] 00:00:00 00:00:00 d_Jessy [id number] Medica l 2022-08-03 2022-08-03 Outpatient [facility] PRIV PRIV 272 [id number] [facility] 00:00:00 00:00:00 d_J [id number] Medica l 2022-08-03 2022-08-03 Outpatient [facility] PRIV PRIV 272 [id number] [facility] 00:00:00 00:00:00 d_J [id number] Medica l 2022-08-03 2022-08-03 Outpatient [facility] PRIV PRIV [id number] [facility] 00:00:00 00:00:00 d_J [id number] Medica l 2022-08-03 2022-08-03 Outpatient [facility] PRIV PRIV [id number] [facility] 00:00:00 00:00:00 d_J [id number] Medica l 2022-08-03 2022-08-03 Outpatient [facility] PRIV PRIV 272 [id number] [facility] 00:00:00 00:00:00 d_J [id number] Medica l 2022-08-03 2022-08-03 Outpatient [facility] PRIV PRIV [id number] [facility] 00:00:00 00:00:00 d_J [id number] Medica l 2022-08-02 2022-08-02 Outpatient [facility] PRIV PRIV 272 [id number] [facility] 00:00:00 00:00:00 d_J [id number] Medica l 2022-07-18 2022-07-18 Outpatient [facility] PRIV PRIV [id number] [facility] 00:00:00 00:00:00 d_J [id number] Medica l 2022-07-18 2022-07-18 Outpatient [facility] PRIV PRIV [id number] [facility] 00:00:00 00:00:00 d_J [id number] Medica l 2022-07-18 2022-07-18 Outpatient [facility] PRIV PRIV 272 [id number] [facility] 00:00:00 00:00:00 d_J [id number] Medica l 2022-07-18 2022-07-18 Outpatient [facility] PRIV PRIV [id number] [facility] 00:00:00 00:00:00 d_J [id number] Medica l 2022-07-02 2022-07-02 Outpatient [facility] PRIV PRIV 272 [id number] [facility] 00:00:00 00:00:00 d_J [id number] Medica l 2022-07-02 2022-07-02 Outpatient [facility] PRIV PRIV 272 [id number] [facility] 00:00:00 00:00:00 d_J [id number] Medica l 2022-07-02 2022-07-02 Outpatient [facility] PRIV PRIV 272 [id number] [facility] 00:00:00 00:00:00 d_J [id number] Medica l 2022-07-02 2022-07-02 Outpatient [facility] PRIV PRIV [id number] [facility] 00:00:00 00:00:00 d_J [id number] Medica l 2022-07-02 2022-07-02 Outpatient [facility] PRIV PRIV 272 [id number] [facility] 00:00:00 00:00:00 d_J [id number] Medica l 2022-06-28 2022-06-28 Outpatient [facility] PRIV PRIV 272 [id number] [facility] 00:00:00 00:00:00 d_J [id number] Medica l 2022-06-28 2022-06-28 Outpatient [facility] PRIV PRIV 272 [id number] [facility] 00:00:00 00:00:00 d_J [id number] Medica l 2022-06-14 2022-06-14 Outpatient [facility] PRIV PRIV 272 [id number] [facility] 00:00:00 00:00:00 d_J [id number] Medica l 2022-06-14 2022-06-14 Outpatient [facility] PRIV PRIV 272 [id number] [facility] 00:00:00 00:00:00 d_J [id number] Medica l 2022-06-14 2022-06-14 Outpatient [facility] PRIV PRIV [id number] [facility] 00:00:00 00:00:00 d_J [id number] Medica l 2022-05-30 2022-05-30 Outpatient [facility] PRIV PRIV 272 [id number] [facility] 00:00:00 00:00:00 d_J [id number] Medica l 2022-05-30 2022-05-30 Outpatient [facility] PRIV PRIV [id number] [facility] 00:00:00 00:00:00 d_J [id number] Medica l 2022-05-28 2022-05-28 Outpatient [facility] PRIV PRIV 272 [id number] [facility] 00:00:00 00:00:00 d_J [id number] Medica l 2022-05-28 2022-05-28 Outpatient [facility] PRIV PRIV 272 [id number] [facility] 00:00:00 00:00:00 d_J [id number] Medica l 2022-05-28 2022-05-28 [facility]ann[facility] [id number] [facility] 00:00:00 00:00:00 ARCELIA Sylvester: Health - Med ical 413 [facility] [address] , Ph. 2022-01-08 2022-01-08 (TEL) STLMLC STLMLC [id number] [facility] 00:00:00 00:00:00 [facility] 2022-01-01 2022-01-01 OFFICE STLMLC STLMLC [id number] [facility] 00:00:00 00:00:00 VISIT [facility] PT - CHI LEVEL 4 [facility] 2021-11-20 2021-11-20 (TEL) STLMLC STLMLC [id number] [facility] 00:00:00 00:00:00 [facility] 2021-10-26 2021-10-26 (TEL) STLMLC STLMLC [id number] [facility] 00:00:00 00:00:00 [facility] 2021-10-02 2021-10-02 OFFICE STLMLC STLMLC [id number] [facility] 00:00:00 00:00:00 VISIT [facility] PT - CHI LEVEL 4 [facility] 2021-08-17 2021-08-17 (TEL) STLMLC STLMLC [id number] [facility] 00:00:00 00:00:00 [facility] 2021-07-19 2021-07-19 OFFICE STLMLC STLMLC [id number] [facility] 00:00:00 00:00:00 VISIT [facility] PT - CHI LEVEL [address] [place] [address] 2021-07-17 2021-07-17 (TEL) STLMLC STLMLC [id number] [facility] 00:00:00 00:00:00 [facility] 2021-06-05 2021-06-05 OFFICE STLMLC STLMLC [id number] [facility] 00:00:00 00:00:00 VISIT [facility] PT - CHI LEVEL 4 [facility] 2021-05-08 2021-05-08 (TEL) STLMLC STLMLC [id number] Co [facility] 00:00:00 00:00:00 [facility] 2021-04-27 2021-04-27 OFFICE STLMLC STLMLC [id number] Co [facility] 00:00:00 00:00:00 VISIT EST Spir [facility] PT LEVEL 3 - [facility] 2021-04-19 2021-04-19 (TEL) STLMLC STLMLC [id number] Co mmon 00:00:00 00:00:00 [facility] - [facility] 2021-03-07 2021-03-07 OFFICE STLMLC STLMLC [id number] Co mmon 00:00:00 00:00:00 VISIT Asa POWELL PT - [facility] LEVEL 4 [facility] 2021-03-07 2021-03-07 SUB ANNUAL STLMLC STLMLC [id number] Common 00:00:00 00:00:00 [facility]EL B[facility] [facility] [place] Results Test Description Test Time Test Comments Results Result Comments Source HEMOGLOBIN A1C 2022-01-01 00:00:00 Test Item Value Reference Range Interpretation Comme nts A1C (test code = 4548-4) 10.6 HEMOGLOBIN [id number] 00:00:00 Test Item Value Reference Range Interpretation Comments A1C (test code = 4548-4) 10.3 HEMOGLOBIN [id number] 00:00:00 Test Item Value Reference Range Interpretation Comments A1C (test code = 4548-4) 8.8 HEMOGLOBIN [id number] 00:00:00 Test Item Value Reference Range Interpretation Comments A1C (test code = 4548-4) 9.4 RAD, CHEST, 1 VIEW, NON [id number] 20:01:00Reason for exam:->s/p PPM implantShould this be performed at the bedside?->Yes [facility] O[facility]YRA : 1940 Sex: FFINALREPORT AP chest dated 08/08/2020 Comment: Heart is in upper limits of normal in size. Pulmonary vasculature is unremarkable. Lungs are clear. No pulmonary infiltrate or pleural effusion. AICD is present. No pneumothorax is seen. Signed: [place] Ring MDReport Verified Date/Time: 08/08/2020 20:01:08 Reading Location: [address] Consult Reading Room BASIC METABOLIC [id number] 19:57:00 Test Item Value Reference Range Interpretation Comments SODIUM (BEAKER) 140 meq/L 136-145 (test code = 381) POTASSIUM (BEAKER) 4.9 meq/L 3.5-5.1 (test code = 379) CHLORIDE (BEAKER) 103 meq/L 98-107 (test code = 382) CO2 (BEAKER) (test 26 meq/L -29 code = 355) BLOOD UREA NITROGEN 78 [...] S NOT APPLICABLE FOR DIALYSIS PATIEN TS. Drying Can Worker ID - IVANIA CCBC W/PLT COUNT & AUTO [id number] 13:56:00 Test Item Value Reference Range Interpretation [...] (BEAKER) (test code = 2801) URINALYSIS W/ [id number] 14:41:00 Test Item Value Reference Range Interpretation [...] Urine, Straight code = 2795) Catheter POCT-GLUCOSE [id number] 11:21:00 Test Item Value Reference Range Interpretation Comments POC-GLUCOSE METER 167 mg/dL 70-110 H TESTED AT [place] [address] (BEAKER) (test code = LUISALESLY Reese [facility] 1538) 5[address] POCT-GLUCOSE [id number] 08:56:00 Test Item Value Reference Range Interpretation Comments POC-GLUCOSE METER 167 mg/dL 70-110 H TESTED AT [place] [address] (BEAKER) (test code = LUISALESLY Hugh [facility] 1538) 96979 POCT-GLUCOSE [id number] 22:03:00 Test Item Value Reference Range Interpretation Comments POC-GLUCOSE METER 128 mg/dL 70-110 H TESTED AT [place] [address] (BEAKER) (test code = LUISALESLY Hugh [facility] 1538) 8[address] POCT-GLUCOSE [id number] 17:31:00 Test Item Value Reference Range Interpretation Comments POC-GLUCOSE METER 141 mg/dL 70-110 H TESTED AT [place] [address] (BEAKER) (test code = LUISALESLY Reese [facility] 1538) [address] POCT-GLUCOSE [id number] 11:58:00 Test Item Value Reference Range Interpretation Comments POC-GLUCOSE METER 159 mg/dL 70-110 H TESTED AT [place] [address] ([facility]) (test code = [place] 1538) [address] POCT-GLUCOSE [id number] 07:47:00 Test Item Value Reference Range Interpretation Comments POC-GLUCOSE METER 115 mg/dL 70-110 H TESTED AT [place] [address] ([facility]) (test code = [place] 1538) 79897 POCT-GLUCOSE [id number] 21:03:00 Test Item Value Reference Range Interpretation Comments POC-GLUCOSE METER 177 mg/dL 70-110 H TESTED AT [place] [address] ([facility]) (test code = TUTU [place] 1538) [address] POCT-GLUCOSE [id number] 16:23:00 Test Item Value Reference Range Interpretation Comments POC-GLUCOSE METER 185 mg/dL 70-110 H TESTED AT [place] [address] ([facility]) (test code = TUTU [place]ese [place] 1538) [address] POCT-GLUCOSE [id number] 12:04:00 Test Item Value Reference Range Interpretation Comments POC-GLUCOSE METER 208 mg/dL 70-110 H TESTED AT [place] [address] ([facility]) (test code = TUTU [place] 1538) 40866 POCT-GLUCOSE [id number] 07:51:00 Test Item Value Reference Range Interpretation Comments POC-GLUCOSE METER 127 mg/dL 70-110 H TESTED AT [place] [address] ([facility]) (test code = T[place]U [place] 1538) [address]41 POCT-GLUCOSE [id number] 20:44:00 Test Item Value Reference Range Interpretation Comments POC-GLUCOSE METER 225 mg/dL 70-110 H TESTED AT [place] [address] ([facility]) (test code = TUTU [place] 1538) 60755 POCT-GLUCOSE [id number] 17:52:00 Test Item Value Reference Range Interpretation Comments POC-GLUCOSE METER 150 mg/dL 70-110 H TESTED AT [place] [address] ([facility]) (test code = TUTU [place]ese [place] 1538) 18462 POCT-GLUCOSE [id number] 12:45:00 Test Item Value Reference Range Interpretation Comments POC-GLUCOSE METER 176 mg/dL 70-110 H TESTED AT [place] [address] ([facility]) (test code = T[place]U [place] 1538) 8[address] POCT-GLUCOSE [id number] 07:41:00 Test Item Value Reference Range Interpretation Comments POC-GLUCOSE METER 147 mg/dL 70-110 H TESTED AT [place] [address] ([facility]) (test code = TUTU [place] 1538) [address] POCT-GLUCOSE [id number] 20:42:00 Test Item Value Reference Range Interpretation Comments POC-GLUCOSE METER 194 mg/dL 70-110 H TESTED AT [place] [address] ([facility]) (test code = TUTU [place] 1538) 02728 POCT-GLUCOSE [id number] 17:33:00 Test Item Value Reference Range Interpretation Comments POC-GLUCOSE METER 174 mg/dL 70-110 H TESTED AT [place] [address] ([facility]) (test code = TUTU [place]ese [place] 1538) 0[address] POCT-GLUCOSE [id number] 12:14:00 Test Item Value Reference Range Interpretation Comments POC-GLUCOSE METER 153 mg/dL 70-110 H TESTED AT [place] [address] ([facility]) (test code = TUTU [place] 1538) 39886 POCT-GLUCOSE [id number] 07:55:00 Test Item Value Reference Range Interpretation Comments POC-GLUCOSE METER 220 mg/dL 70-110 H TESTED AT [place] [address] ([facility]) (test code = T[place]U [place] 1538) 34558 POCT-GLUCOSE [id number] 20:50:00 Test Item Value Reference Range Interpretation Comments POC-GLUCOSE METER 241 mg/dL 70-110 H TESTED AT [place] [address] ([facility]) (test code = TUTU Reese [facility] 1538) 55521 POCT-GLUCOSE [id number] 16:54:00 Test Item Value Reference Range Interpretation Comments POC-GLUCOSE METER 218 mg/dL 70-110 H TESTED AT [place] [address] ([facility]) (test code = T[place]U [place] 1538) 718[address] POCT-GLUCOSE [id number] 11:45:00 Test Item Value Reference Range Interpretation Comments POC-GLUCOSE METER 257 mg/dL 70-110 H TESTED AT [place] [address] ([facility]) (test code = TUTU [place] 1538) 76995 POCT-GLUCOSE [id number] 07:57:00 Test Item Value Reference Range Interpretation Comments POC-GLUCOSE METER 219 mg/dL 70-110 H TESTED AT [facility] 6720 (BEAKER) (test code = [place] 1538) [address] BASIC METABOLIC [id number] 06:05:00 Test Item Value Reference Range Interpretation [...] PATIEN TS. CBC W/PLT COUNT & AUTO [id number] 05:42:00 Test Item Value Reference Range Interpretation [...] PERCENT (BEAKER) (test code = 2801) POCT-GLUCOSE [id number] 20:57:00 Test Item Value Reference Range Interpretation Comments POC-GLUCOSE METER 301 mg/dL 70-110 H Notified R Becca SHOEMAKER/TESTED ([facility]) (test code = AT [place] [address]) [facility] 7703 0 POCT-GLUCOSE [id number] 15:57:00 Test Item Value Reference Range Interpretation Comments POC-GLUCOSE METER 292 mg/dL 70-110 H TESTED AT [place] [address] ([facility]) (test code = T[place]U [place] [address]) [address] POCT-GLUCOSE [id number] 13:36:00 Test Item Value Reference Range Interpretation Comments POC-GLUCOSE METER 181 mg/dL 70-110 H TESTED AT [place] [address] ([facility]) (test code = TUTU Reese [facility] 1538) 12499 POCT-GLUCOSE [id number] 07:46:00 Test Item Value Reference Range Interpretation Comments POC-GLUCOSE METER 172 mg/dL 70-110 H TESTED AT [place] [address] [facility] (test code = TUTU Reese [facility] 1538) 77389 POCT-GLUCOSE [id number] 21:03:00 Test Item Value Reference Range Interpretation Comments POC-GLUCOSE METER 195 mg/dL 70-110 H TESTED AT [place] [address] ([facility]) (test code = TUTU Reese [facility] 1538) 17595 POCT-GLUCOSE [id number] 16:41:00 Test Item Value Reference Range Interpretation Comments POC-GLUCOSE METER 198 mg/dL 70-110 H TESTED AT [place] [address] ([facility]) ([facility] = [facility] 1538) 96227 POCT-GLUCOSE [id number] 12:08:00 Test Item Value Reference Range Interpretation Comments POC-GLUCOSE METER 241 mg/dL 70-110 H TESTED AT [place] [address] ([facility]) (test [facility] = [facility] 1538) 22759 POCT-GLUCOSE [id number] 08:27:00 Test Item Value Reference Range Interpretation Comments POC-GLUCOSE METER 300 mg/dL 70-110 H TESTED AT [place] [address] ([facility]) (test code = [facility] Hugh [facility] 1538) [address] BASIC METABOLIC [id number] 05:56:00 Test Item Value Reference Range Interpretation [...] NOT APPLICABLE FOR DIALYSIS PATIEN TS. PROTHROMBIN [id number] 04:54:00 Test Item Value Reference Range Interpretation Comments PROTIME (BEAKER) (test code = 14.5 seconds 11.7-14.7 759) INR (BEAKER) (test code = 370) 1.1 <=5.9 RECOMMENDED COUMADIN/WARFARIN INR THERAPY RANGESSTANDARD DOSE: 2.0 - 3.0 Includes: PROPHYLAXIS for venous thrombosis, systemic embolization; TREATMENT for venous thrombosis and/or pulmonary embolus.HIGH RISK: Target INR is 2.5-3.5 for patients with mechanical heart valves.CBC W/PLT COUNT & AUTO [id number] 04:50:00 Test Item Value Reference Range Interpretation [...] PERCENT (BEAKER) (test code = 2801) POCT-GLUCOSE [id number] 22:08:00 Test Item Value Reference Range Interpretation Comments POC-GLUCOSE METER 285 mg/dL 70-110 H TESTED AT [facility] 6720 [facility] (test [facility] = [facility]ese [facility] 1538) 9[address] POCT-GLUCOSE [id number] 16:19:00 Test Item Value Reference Range Interpretation Comments POC-GLUCOSE METER 230 mg/dL 70-110 H TESTED AT [place] [address] ([facility]) (test code = [facility] Hugh [facility] 1538) [address] RAD, ANKLE, MIN 3 VIEWS, [id number] 12:27:00Reason for exam:->pain edema following fallFINAL REPORT Clinical history: pain edema following fall TECHNIQUE: 3 views of the right ankle COMPARISON: None IMPRESSION: There is soft tissue swelling over the medial malleolus.There is no evidence of fracture or dislocation. There are dorsal and plantar calcaneal spurs. Thereare vascular calcifications. Signed: Car Heller Verified Date/Time: 02/04/2017 12:27:23 Reading Location: [facility] Reading Room Electronically signed by: CAR HELLER M.D.on 02/04/2017 12:27 PMPOCT- GLUCOSE [id number] 11:55:00 Test Item Value Reference Range Interpretation Comments POC-GLUCOSE METER 204 mg/dL 70-110 H TESTED AT [facility] 6720 (BEAKER) (test code = TUTU Reese [place] 1538) [address] POCT-GLUCOSE [id number] 08:00:00 Test Item Value Reference Range Interpretation Comments POC-GLUCOSE METER 217 mg/dL 70-110 H TESTED AT [facility] 6720 (BEAKER) (test code = TUTU Reese [place] 1538) [address] [id number] 07:14:00 Test Item Value Reference Range Interpretation Comments PHOSPHORUS (BEAKER) (test code = 3.8 mg/dL 2.3-4.7 604) [id number] 07:14:00 Test Item Value Reference Range Interpretation Comments MAGNESIUM (BEAKER) (test code = 1.7 mg/dL 1.6-2.6 627) BASIC METABOLIC [id number] 07:14:00 Test Item Value Reference Range Interpretation [...] NOT APPLICABLE FOR DIALYSIS PATIEN TS. POCT-GLUCOSE [id number] 22:31:00 Test Item Value Reference Range Interpretation Comments POC-GLUCOSE METER 288 mg/dL 70-110 H TESTED AT [facility] 6720 (BEAKER) (test code = TUTU Reese [place] 1538) [address] POCT-GLUCOSE [id number] 17:03:00 Test Item Value Reference Range Interpretation Comments POC-GLUCOSE METER 268 mg/dL 70-110 H TESTED AT [place] [address] ([facility]) (test code = [place] 1538) [address] POCT-GLUCOSE [id number] 12:31:00 Test Item Value Reference Range Interpretation Comments POC-GLUCOSE METER 214 mg/dL 70-110 H TESTED AT [place] [address] ([facility]) (test code = T[place]U [place] 1538) [address] CT, BRAIN, WITHOUT [id number] 09:22:00FINAL REPORT CT head without contrast INDICATION: [...] acute on chronic sinusitis. Signed: Charanjit Ibarra [facility] Verified Date/Time: 02/03/2017 09:22:48 Reading Location: [address] Neuro Reading Room POCT-GLUCOSE [id number] 07:19:00 Test Item Value Reference Range Interpretation Comments POC-GLUCOSE METER 218 mg/dL 70-110 H TESTED AT [place] [address] ([facility]) (test code = [place] 1538) [address] [id number] 06:12:00 Test Item Value Reference Range Interpretation Comments PHOSPHORUS (BEAKER) (test code = 3.1 mg/dL 2.3-4.7 604) [id number] 06:12:00 Test Item Value Reference Range Interpretation Comments MAGNESIUM (BEAKER) (test code = 1.6 mg/dL 1.6-2.6 627) BASIC METABOLIC [id number] 06:12:00 Test Item Value Reference Range Interpretation [...] NOT APPLICABLE FOR DIALYSIS PATIEN TS. POCT-GLUCOSE [id number] 23:10:00 Test Item Value Reference Range Interpretation Comments POC-GLUCOSE METER 239 mg/dL 70-110 H TESTED AT [place] [address] ([facility] ([facility] = [facility] 1538) [address]88 POCT-GLUCOSE [id number] 17:20:00 Test Item Value Reference Range Interpretation Comments POC-GLUCOSE METER 291 mg/dL 70-110 H TESTED AT [place] [address] ([facility] (test code = [facility]ese [facility] 1538) [address] POCT-GLUCOSE [id number] 12:39:00 Test Item Value Reference Range Interpretation Comments POC-GLUCOSE METER 274 mg/dL 70-110 H TESTED AT [place] [address] ([facility]) (test code = TUTU Reese [facility] 1538) 78[address] POCT-GLUCOSE [id number] 11:35:00 Test Item Value Reference Range Interpretation Comments POC-GLUCOSE METER 289 mg/dL 70-110 H TESTED AT [facility] 6720 (DAO) (test code = [place] 1538) [address]61 POCT-GLUCOSE [id number] 11:07:00 Test Item Value Reference Range Interpretation Comments POC-GLUCOSE METER 271 mg/dL 70-110 H TESTED AT [facility] 6720 (DAO) (test code = TUTU Reese [facility] 1538) [address] CT, BRAIN, WITHOUT [id number] 10:51:00FINAL REPORT CT head without contrast INDICATION: [...] MDReport Verified Date/Time: 02/02/2017 10:51:15 Reading Location: [address] Neuro Reading Room [id number] 06:07:00 Test Item Value Reference Range Interpretation Comments PHOSPHORUS (DAO) (test code = 3.2 mg/dL 2.3-4.7 604) [id number] 06:07:00 Test Item Value Reference Range Interpretation Comments MAGNESIUM (BEAKER) (test code = 2.4 mg/dL 1.6-2.6 627) BASIC METABOLIC [id number] 06:07:00 Test Item Value Reference Range Interpretation [...] NOT APPLICABLE FOR DIALYSIS PATIEN TS. POCT-GLUCOSE [id number] 21:34:00 Test Item Value Reference Range Interpretation Comments POC-GLUCOSE METER 331 mg/dL 70-110 H TESTED AT [facility] 67 ([facility] (test code = TUTU Reese [facility] 1538) [address] HEMOGLOBIN [id number] 14:53:00 Test Item Value Reference Range Interpretation Comments HEMOGLOBIN A1C (BEAKER) (test code = 14.8 % 4.3-6.1 H 368) POCT-GLUCOSE [id number] 11:57:00 Test Item Value Reference Range Interpretation Comments POC-GLUCOSE METER 232 mg/dL 70-110 H TESTED AT [facility] 6720 ([facility] (test code = [facility] Hugh [facility] 1538) [address] [id number] 11:44:00 Test Item Value Reference Range Interpretation Comments PHOSPHORUS (BEAKER) (test code = 3.0 mg/dL 2.3-4.7 604) [id number] 11:44:00 Test Item Value Reference Range Interpretation Comments MAGNESIUM (BEAKER) (test code = 1.3 mg/dL 1.6-2.6 L 627) BASIC METABOLIC [id number] 11:44:00 Test Item Value Reference Range Interpretation [...] PATIEN TS. CBC W/PLT COUNT & AUTO [id number] 11:18:00 Test Item Value Reference Range Interpretation [...] % 0-1 PERCENT (BEAKER) (test code = 280) POCT-GLUCOSE [id number] 08:37:00 Test Item Value Reference Range Interpretation Comments POC-GLUCOSE METER 269 mg/dL 70-110 H TESTED AT [facility] 6720 ([facility] (test code = TUTU [place] 1538) [address] LIPID [id number] 03:12:00 Test Item Value Reference Range Interpretation [...] (test code = Nonreactive Nonreactive 420) POCT-GLUCOSE [id number] 01:15:00 Test Item Value Reference Range Interpretation Comments POC-GLUCOSE METER 297 mg/dL 70-110 H TESTED AT [facility] 6720 (DAO) (test code = TUTU Reese [facility] 1538) [address] POCT-GLUCOSE [id number] 22:01:00 Test Item Value Reference Range Interpretation Comments POC-GLUCOSE METER 354 mg/dL 70-110 H Notified Hugh Hudson MD/TESTED (DAO) (test code = AT [facility] 67[address] [facility]) [facility] 7703 0 MR, BRAIN, WITHOUT [id number] 20:46:00Reason for exam:->Ischemic Stroke EvaluationFINAL REPORT MRI [...] MDReport Verified Date/Time: 01/31/2017 20:46:20 Reading Location: [facility] Radiology Reading Room MR, MRA, BRAIN, WITHOUT [id number] 20:36:00 Reason for exam:->Ischemic Stroke EvaluationFINAL REPORT MRA head and neck without contrast INDICATION: Stroke TECHNIQUE: 2-D and 3-D [id number]-vi-[id number] MRA images of the intra- and extracranial [...] left vertebral artery is not imaged. 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 Mild to moderate left vertebrobasilar confluence, moderate mid basilar artery and severe right and moderate left proximal MASTER YACHT stenoses are present. There are suspected severe left supraclinoid ICA stenosis with signal loss. There are mild stenoses of the left proximal MCA and TRUDY origins. No other flow limiting proximal [place] vessels stenosis is seen. Motion [...] severe left supraclinoid ICA and proximal right MASTER YACHT stenoses. 4. No hemodynamically significant cervical carotid artery stenosis by NASCET criteria. Signed: Charanjit Ibarra MDReport Verified Date/Time: 01/31/2017 20:36:02 Reading Location: [facility] Radiology ReadingRoom MR, MRA, NECK, WITHOUT IV [id number] 20:36:00Reason for exam:->Ischemic Stroke EvaluationFINAL REPORT MRA head and neck without contrast INDICATION: Stroke TECHNIQUE: 2-D and 3-D [id number] MRA images of the intra- and extracranial [...] left vertebral artery is not imaged. 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 Mild to moderate left vertebrobasilar confluence, moderate mid basilar artery and severe right and moderate left proximal MASTER YACHT stenoses are present. There are suspected severe left supraclinoid ICA stenosis with signal loss. There are mild stenoses of the left proximal MCA and TRUDY or igins. No other flow limiting proximal [place] vessels stenosis is seen. Motion [...] severe left supraclinoid ICA and proximal right MASTER YACHT stenoses. 4. No hemodynamically significant cervical carotid artery stenosis by NASCET criteria. Signed: Charanjit Ibarra MDReport Verified Date/Time: 01/31/2017 20:36:02 Reading Location: [facility] Radiology ReadingRoom VITAMIN B12 AND [id number] 13:11:00 Test Item Value Reference Range Interpretation Comments VITAMIN B12 (BEAKER) (test code = 551 pg/mL 213-449 314) FOLATE (BEAKER) (test code = 362) 15.7 ng/mL >=7.0 [id number] 10:22:00 Test Item Value Reference Range Interpretation Comments HOMOCYSTEINE (BEAKER) (test code = 7.0 umol/L 5.1-15.4 642) POCT-GLUCOSE [id number] 08:22:00 Test Item Value Reference Range Interpretation Comments POC-GLUCOSE METER 200 mg/dL 70-110 H TESTED AT [facility] 6720 (BEAKER) (test code = [place] 1538) [address] T4, [id number] 07:04:00 Test Item Value Reference Range Interpretation Comments FREE T4 (BEAKER) (test code = 655) 1.28 ng/dL 0.70-1.48 TSH/FREE T4 IF [id number] 06:34:00 Test Item Value Reference Range Interpretation Comments THYROID STIMULATING HORMONE 0.22 uIU/mL 0.35-4.94 L (BEAKER) (test code = 772) BASIC METABOLIC [id number] 05:53:00 Test Item Value Reference Range Interpretation [...] PATIEN TS. CBC W/PLT COUNT & AUTO [id number] 05:31:00 Test Item Value Reference Range Interpretation [...] KACIE CALDERON OPERATIVE/PROCEDURE REPORT TERRY BARKSDALE FACILITY: [facility] Billing #: [id number] Room: [facility] MR #: [id number] : 1940 DATE OF PROCEDURE: 08/08/2020 SURGEON: [...] vein. There we re no complications. MATT/LAYLA /[id number] 2017-02-06 18:18:00-00:00 KACIE CALDERONGalindo REPORT OF PROCEDURE TERRY BARKSDALE FACILITY: [facility] BILLING #: [id number] ROOM: [facility] [id number] MR #: [id number] : 1940 DATE OF PROCEDURE: 02/06/2017 SURGEON: [...] tissue without complications. MATT/christian P P Job#: [id number] Doc#: [id number] FN: [id number] cc: Kacie Calderon MD 2017-02-05 21:30:00-00:[address] [facility] REPORT OF PROCEDURE TERRY [place] FACILITY: [facility] BILLING #: [id number] ROOM: [address] [place] [address] MR #: [id number] : 1940 DATE OF PROCEDURE: 02/05/2017 SURGEON: [...] PROCEDURE: The patient brought [facility] the [facility] siology laboratory. The right and left [...] transie nt AV block identified with prompt nondenominational of normal conduction and recu rrent of conduction intervals to normal. There was subsequent no inducible tac hycardia and no sustained slow pathway conduction. Procedure was terminate d. No complication. MATT/christian P P Job#: [id number] Doc#: [id number] FN: [id number] cc: Kacie Calderon MD
--- NOTE | 2022-09-24 18:54 | RAD REPORT ---
EXAM DESCRIPTION: RADChest Single View09/24/2022 6:21 pm CLINICAL HISTORY: ams COMPARISON: Chest Single View dated 09/05/2022; Chest Single View dated 08/15/2022; Chest Single View d ated 06/22/2022; Chest Single View dated 05/06/2022 TECHNIQUE: Portable AP view of the chest. FINDINGS: Central interstitial prominence and subtle patchy central and basilar airspace opacities, could reflect mild congestion. No pneumothorax or effusion. The cardiomediastinal contours are unchan ged. Right IJ dialysis catheter, left chest wall pacer/ AICD, and implantable rhythm monitoring devic e again seen. IMPRESSION: Findings suggesting mild central venous congestion.
[2022-09-24 19:33] LABS: Absolute Lymphocytes (CBC) 0.5 K/uL (0.7-4.9); Hematocrit 33.1 % (36.0-45.0); Lymphocytes % 4.7 % (15.3-44.8); MCV 100.1 fL (80-100); MPV 8.2 fL (7.6-11.3); Platelets 163 thou/uL (152-406)
--- NOTE | 2022-09-24 19:47 | RAD REPORT ---
EXAM DESCRIPTION: CT - Head Brain Wo Cont - 09/24/2022 7:15 pm CLINICAL HISTORY: Altered mental status COMPARISON: Head Brain Wo Cont dated 09/05/2022; Head Brain Wo Cont dated 02/14/2017 TECHNIQUE: Noncontrast head CT images were obtained without IV contrast. Multiplanar reformats were generated and reviewed. All CT scans are performed using dose optimization technique as appropriate and may include automated exposure control or mA/KV adjustment according to patient size. FINDINGS: No intracranial hemorrhage, mass, or edema. Midline structures are unremarkable. Mild diffuse parenchymal volume loss and moderate cerebellar atrophy. Findings are stable and nonspec ific. Left midpons focus of hypoattenuation with volume loss, stable, and suggestive of a small remot e infarct. . Naik-white matter differentiation is otherwise preserved, without evidence of acute infarct. No abnor mal extra-axial fluid collections. Mastoid air cells and visualized portions of the paranasal sinuses are clear. No acute bony findings. IMPRESSION: No evidence of an acute intracranial process. Stable chronic findings as above.
[2022-09-24 19:51] LABS: Albumin 2.5 g/dL (3.4-5.0); Bilirubin Direct 0.2 mg/dL (0-0.2); Bilirubin Indirect, Calculated 0.3 mg/dL (0.2-0.8); Bilirubin Total 0.5 mg/dL (0.2-1.0); Magnesium 2.1 mg/dL (1.6-2.4); Potassium 4.6 mEq/L (3.5-5.1); Protein, Total 6.5 g/dL (6.4-8.2); Troponin High Sensitivity 36.7 pg/mL (<58.9)
[2022-09-24 21:42] LABS: Specific Gravity 1.008 (1.005-1.030); Urine Bacteria 20-50 /HPF (<20); Urine Bilirubin NEGATIVE (Negative); Urine Blood 1+ (Negative); Urine Clarity Extremely Turbid (Clear); Urine Color Light-Orange (Yellow); Urine Glucose NEGATIVE (Negative); Urine Protein TRACE (Negative); Urine RBC >50 /HPF (None Seen); Urine Urobilinogen Normal (Normal); Urine WBC Clump Many /HPF (None Seen)
--- NOTE | 2022-09-24 22:46 | ER ---
Nurse's Notes [facility] Name: Rebecca Hazel Age: 82 yrs Sex: Female : 1940 Arrival Date: 09/24/2022 Time: 17:47 Bed 3 Private MD: Diagnosis: Acute hypoactive delirium, urinary tract infection, acute cystitis, sacral decubitus ulcers, physical deconditioning, senility with acute psychosis, immobility complications Presentation: 09/24 18:05 Chief complaint: EMS states: Pt from [facility], EMS called for AMS, pt ph normally A\\T\\O 2-3 , has been having increasing confusion since last night. Keeps repeating " I don't know, I don't know." VSS , BGL 180s, daughter in law at bedside states that pt presents this way when she has UTIs. Coronavirus screen: Vaccine status: Patient reports receiving the 2nd dose of the covid vaccine. Ebola Screen: No symptoms or risks identified at this time. Initial Sepsis Screen: Does the patient meet any 2 criteria? Altered Mental Status. Does the patient have a suspected source of infection? Yes: Dysuria/Frequency/Urgency/UTI. Risk Assessment: Do you want to hurt yourself or someone else? Patient reports no desire to harm self or others. Onset of symptoms was September 24, 2022. 18:05 Method Of Arrival: EMS: [facility] 18:05 Acuity: DENNIS 2 ph Triage Assessment: 18:09 General: Appears in no apparent distress. comfortable, Behavior is calm, cooperative. ph Pain: Denies pain. Neuro: Level of Consciousness is awake, obeys commands, confused, Oriented to person. Cardiovascular: Capillary refill < 3 seconds in bilateral fingers Patient's skin is warm and dry. Respiratory: Airway is patent Respiratory effort is even, unlabored, Respiratory pattern is regular, symmetrical. GI: No signs and/or symptoms were reported involving the gastrointestinal system. Derm: Skin is pink, warm \\T\\ dry. Derm: Wound noted plantar aspect of left fourth toe and ball of left foot Decubitus located on sacrum. Musculoskeletal: Amputation of left first toe. Historical: - Allergies: 18:45 No Known Allergies; ph - PMHx: 17:52 Diabetes - IDDM; Dialysis M-W-F; End stage renal disease; Hypertension; Hypothyroidism; ss stroke with right sided weakness; TIA; - PSHx: 17:52 pacemaker; ss - Immunization history:: Adult Immunizations unknown. - Social history:: Smoking status: unknown. Screenin:12 [facility] Fall Risk Assessment (Adult) History of falling in the last 3 months, ph including since admission No falls in past 3 months (0 pts) Confusion or Disorientation Yes (5 pts) Intoxicated or Sedated No (0 pts) Impaired Gait Yes (1 pt) Mobility Assist Device Used Yes (1 pt) Altered Elimination Yes (1 pt) Score/Fall Risk Level 3 or more points = High Risk Oriented to surroundings, Maintained a safe environment, Used ambulatory aids as needed (educated on \\T\\ assisted with), Used gait belt as appropriate Implemented a Fall Risk Plan of Care. Abuse screen: Denies threats or abuse. Denies injuries from another. Nutritional screening: No deficits noted. Tuberculosis screening: No symptoms or risk factors identified. Assessment: 19:30 General: Appears comfortable, Behavior is calm, cooperative. Pain: Denies pain. Neuro: rv Level of Consciousness is awake, alert, obeys commands, Oriented to person, place, time, situation. Cardiovascular: Capillary refill < 3 seconds. Respiratory: Airway is patent Respiratory effort is even, unlabored. Vital Signs: 18:05 BP 135 / 63; Pulse 77; Resp 18; Temp 97.8; Pulse Ox 94% on R/A; Weight 96.16 kg; Pain ph 0/10; 19:33 BP 125 / 44 LA (/reg); Pulse 71; Resp 17; Pulse Ox 97% ; rv 20:23 BP 93 / 48; Pulse 68; Resp 18; Pulse Ox 96% on R/A; kd3 20:33 BP 124 / 55; Pulse 67; Resp 19; Pulse Ox 96% on R/A; kd3 21:24 BP 125 / 65; Pulse 66; Resp 18 S; Pulse Ox 95% on R/A; kd3 21:55 BP 124 / 58; Pulse 64; Resp 20; Pulse Ox 98% on R/A; kd3 09/25 00:29 BP 142 / 62; Pulse 62; Resp 16; Temp 98; Pulse Ox 95% on R/A; rv 09/24 18:05 Pain Scale: Adult ph [place] Coma Score: 09/24 19:33 Eye Response: spontaneous(4). Motor Response: obeys commands(6). Verbal Response: rv confused(4). Total: 14. 09/25 00:30 Eye Response: spontaneous(4). Motor Response: obeys commands(6). Verbal Response: rv confused(4). Total: 14. ED Course: 09/24 17:52 Patient arrived in ED. ss 17:59 Derik Yost DO is Attending Physician. ms3 18:05 Deysi Mcmahon RN is Primary Nurse. ph 18:08 Triage completed. ph 18:08 Arm band placed on Patient placed in an exam room, on a stretcher, on cardiac cath lab radiology technologist, ph on pulse oximetry. 18:12 Patient has correct armband on for positive identification. Bed in low position. Call ph light in reach. Side rails up X2. Client placed on continuous cardiac and pulse oximetry monitoring. NIBP monitoring applied. 18:23 XRAY Chest (1 view) In Process Unspecified. EDMS 18:45 Missed attempt(s): 24 gauge in left hand. Bleeding controlled, band aid applied, ph catheter tip intact. Missed attempt(s): 24 gauge in left hand. Bleeding controlled, band aid applied, catheter tip intact. Missed attempt(s): 24 gauge in left breast. Bleeding controlled, band aid applied, catheter tip intact. 19:16 CT Head Brain wo Cont In Process Unspecified. EDMS 19:29 Inserted saline lock: 20 gauge in right forearm, using aseptic technique. Blood rv collected. 20:50 Attending Physician role handed off by Derik Yost DO sp4 20:50 Georges Padgett MD is Attending Physician. sp4 21:31 Primary Nurse role handed off by Deysi Mcmahon, THAIS kj1 21:34 Rissa Garg RN is Primary Nurse. kd3 22:45 Kem Mack MD is Hospitalizing Provider. sp4 09/25 00:29 No provider procedures requiring assistance completed. Patient admitted, IV remains in rv place. 00:30 Provided Education on: DEHYDRATINO. rv Administered Medications: 09/24 22:45 Not Given (Duplicate Order): Rocephin - Rocephin (cefTRIAXone) IVPB 1 grams IVPB once sp4 over 30 mins; (mix in 50 mL NS) 09/25 00:00 Drug: Meropenem IV 500 mg Route: IV; Rate: calculated rate; Site: right forearm; rv 00:29 Follow up: IV Status: Completed infusion; IV Intake: 100ml rv 00:29 Drug: Calcium Gluconate IVPB 1 grams Route: IVPB; Infused Over: 60 mins; Site: right rv forearm; 00:29 Follow up: IV Status: Infusion continued upon admission rv Medication: 09/24 18:13 VIS not applicable for this client. ph Intake: 09/25 00:29 IV: 100ml; Total: 100ml. rv Outcome: 09/24 22:46 Decision to Hospitalize by Provider. sp4 09/25 00:30 Admitted to Med/surg accompanied by nurse, via stretcher, room 223, with chart, Report rv called to BRISA PLASCENCIA Condition: stable Instructed on the need for admit. 00:31 Patient left the ED. rv Signatures: Dispatcher [employer] EDMS Cat Edwards RN RN ss Deysi Mcmahon RN RN Fan Ferreira RN RN rv Bernadette Fuentes kj1 Derik Yost DO DO ms3 Rissa Garg RN RN kd3 Georges Padgett MD MD sp4
--- NOTE | 2022-09-24 22:46 | EDPHYS ---
Physician Documentation [facility] Name: Rebecca Hazel Age: 82 yrs Sex: Female : 1940 Arrival Date: 09/24/2022 Time: 17:47 Bed 3 Private MD: ED Physician Georges Padgett HPI: 09/24 19:15 This 82 yrs old Female presents to ER via EMS with complaints of Altered Mental Status. ms3 19:15 82-year-old female with past medical history of diabetes, end-stage renal disease on ms3 dialysis Friday, Friday, presents for altered mental status. Patient was seen in the emergency department on Friday after dialysis. EMS notes patient became more altered and repetitive. Altered no symptoms became worse today. Patient's [id number] states patient has been twitching more today, dropped her phone and was unable to feed herself. Patient's [id number]-ma-[id number] states patient is normally alert and oriented, converses and has periods of altered mental status.. Historical: - Allergies: 18:45 No Known Allergies; ph - PMHx: 17:52 Diabetes - IDDM; Dialysis M-W-F; End stage renal disease; Hypertension; Hypothyroidism; ss stroke with right sided weakness; TIA; - PSHx: 17:52 pacemaker; ss - Immunization history:: Adult Immunizations unknown. - Social history:: Smoking status: unknown. ROS: 19:15 Unable to obtain ROS due to altered mental status. ms3 22:46 Constitutional: Negative for fever, chills, and weight loss, positive for generalized sp4 weakness and acute delirium 22:46 All other systems are negative. Exam: 19:15 Constitutional: This is a well developed, well nourished patient who is awake, alert, ms3 and in no acute distress. Eyes: Pupils equal round and reactive to light, extra-ocular motions intact. Lids and lashes normal. Conjunctiva and sclera are non-icteric and not injected. Periorbital areas with no swelling, redness, or edema. Neck: Trachea midline, no cervical lymphadenopathy. Supple, full range of motion without nuchal rigidity, or vertebral point tenderness. No Meningismus. Chest/axilla: Normal chest wall appearance and motion. Nontender with no deformity. Respiratory: Lungs have equal breath sounds bilaterally, clear to auscultation and percussion. No rales, rhonchi or wheezes noted. No increased work of breathing, no retractions or nasal flaring. 19:15 Skin: Warm, dry with normal turgor. Normal color with no rashes, no lesions, and no evidence of cellulitis. MS/ Extremity: Pulses equal, no cyanosis. Neurovascular intact. Full, normal range of motion. 19:15 Cardiovascular: Rate: normal, Rhythm: regular, Pulses: no pulse deficits are appreciated, Heart sounds: murmur, systolic. 19:22 ECG was reviewed by the Attending Physician. ms3 Vital Signs: 18:05 BP 135 / 63; Pulse 77; Resp 18; Temp 97.8; Pulse Ox 94% on R/A; Weight 96.16 kg; Pain ph 0/10; 19:33 BP 125 / 44 LA (/reg); Pulse 71; Resp 17; Pulse Ox 97% ; rv 20:23 BP 93 / 48; Pulse 68; Resp 18; Pulse Ox 96% on R/A; kd3 20:33 BP 124 / 55; Pulse 67; Resp 19; Pulse Ox 96% on R/A; kd3 21:24 BP 125 / 65; Pulse 66; Resp 18 S; Pulse Ox 95% on R/A; kd3 21:55 BP 124 / 58; Pulse 64; Resp 20; Pulse Ox 98% on R/A; kd3 09/25 00:29 BP 142 / 62; Pulse 62; Resp 16; Temp 98; Pulse Ox 95% on R/A; rv 09/24 18:05 Pain Scale: Adult ph [place] Coma Score: 09/24 19:33 Eye Response: spontaneous(4). Motor Response: obeys commands(6). Verbal Response: rv confused(4). Total: 14. 09/25 00:30 Eye Response: spontaneous(4). Motor Response: obeys commands(6). Verbal Response: rv confused(4). Total: 14. MDM: 09/24 17:59 Patient medically screened. ms3 19:15 Differential Diagnosis: CVA, electrolyte abnormality, hypoglycemia, intracranial bleed, ms3 pneumonia, UTI, volume depletion. 20:50 Transition of care: After a detail discussion of the patient's case, care is ms3 transferred to Georges Padgett MD. 20:50 Data reviewed: vital signs, nurses notes, old medical records, lab test result(s). sp4 22:32 Consideration of Admission/Observation Patient was admitted/placed on observation. sp4 Escalation of care including admission/observation considered. ED course: 82-year-old female presents with acute delirium repetitive language and also disorientation. Patient has managed to complete her dialysis today. On examination patient has left great toe amputation with chronic ischemic ulcer. This does not appear to be infected. On catheterized urinalysis patient has mild UTI. Patient also has stage II-III decubitus ulcers that do not appear to be infected. Patient's care was assumed from Dr. Yost at 8 PM patient has history of end-stage renal disease she is on hemodialysis , history of prior CVA with right-sided hemiparesis, history of insulin-dependent diabetes, hypertension atrial fibrillation neuropathy hypothyroidism constipation permanent pacemaker. Patient was recently managed here for left foot infection on 09/05/2022 and discharged on 09/11/2022. Patient was seen by infectious disease specialist Dr. Beal, also by Gen Surgeon Dr. Martins and Nephrology Dr. Heller . ED course: Additional problems that were managed during recent hospitalization is metabolic encephalopathy, acute cystitis, sacral decubitus ulcer, left great toe stump and infection, end-stage renal disease, hyponatremia, microcytic anemia, insulin-dependent diabetes, chronic atrial fibrillation, hypertension, hyperlipidemia, hypothyroidism. Patient has had reported hallucinations during prior admission and tested positive for Proteus mirabilis. Wound cultures grew Acinetobacter and Klebsiella pneumonia. Klebsiella was ESBL. Patient was switched to meropenem in the hospital from [facility]. Patient was then started on vancomycin as well for MRSA. Patient has right chest wall hemodialysis permacath. General surgeon advised wound care only for the great toe wound with daily dressing changes. And Vashe wrapping. . ED course: Patient's medications include atorvastatin, duloxetine, acetaminophen, amiodarone, sorbic acid, gabapentin, levothyroxine, mag hydroxide, ondansetron, zinc sulfate, collagenase, clopidogrel, docusate, metoprolol, GlycoLax, ProMod, lisinopril, apixaban, insulin, lactulose, phenol Chloraseptic, daily probiotic, guaifenesin, collagenase. Based on my examination patient does have acute hypoactive delirium with disorientation repetitive language, and not acting herself based on patient's relative report. Patient will be discussed with admitting hospitalist about admission and management of urinary tract infection. Perhaps the delirium could be improved inside the hospital. . 09/24 18:00 Order name: Basic Metabolic Panel; Complete Time: 20:01 ms3 09/24 18:00 Order name: CBC with Diff; Complete Time: 20:01 ms3 09/24 18:00 Order name: LFT's; Complete Time: 20:01 ms3 09/24 18:00 Order name: Magnesium; Complete Time: 20:01 ms3 09/24 18:00 Order name: Troponin HS; Complete Time: 20:01 ms3 09/24 18:00 Order name: Urinalysis W/Microscopic; Complete Time: 21:59 ms3 09/24 22:47 Order name: Blood Culture Adult (2) sp4 09/24 22:47 Order name: CRP sp4 09/24 22:47 Order name: Lactate w/ 2H reflex if indic. sp4 09/24 22:47 Order name: Procalcitonin sp4 09/24 22:47 Order name: T4 Free sp4 09/24 22:47 Order name: TSH sp4 09/24 18:00 Order name: XRAY Chest (1 view); Complete Time: 18:55 ms3 09/24 18:57 Order name: CT Head Brain wo Cont; Complete Time: 20:01 ms3 09/24 23:29 Order name: Foot Left 2 View XRAY la1 09/24 18:00 Order name: EKG; Complete Time: 18:00 ms3 09/24 18:00 Order name: Cardiac monitoring; Complete Time: 18:13 ms3 09/24 18:00 Order name: EKG - Nurse/Tech; Complete Time: 19:05 ms3 09/24 18:00 Order name: IV Saline Lock; Complete Time: 19:05 ms3 09/24 18:00 Order name: Labs collected and sent; Complete Time: 19:05 ms3 09/24 18:00 Order name: O2 Per Protocol; Complete Time: 18:13 ms3 09/24 18:00 Order name: O2 Sat Monitoring; Complete Time: 18:13 ms3 EC:22 Rate is 75 beats/min. Rhythm is regular. QRS interval is prolonged. Clinical ms3 impression: Sinus rhythm with bifasicular block. Interpreted by me. Reviewed by me. Administered Medications: 22:45 Not Given (Duplicate Order): Rocephin - Rocephin (cefTRIAXone) IVPB 1 grams IVPB once sp4 over 30 mins; (mix in 50 mL NS) 09/25 00:00 Drug: Meropenem IV 500 mg Route: IV; Rate: calculated rate; Site: right forearm; rv 00:29 Follow up: IV Status: Completed infusion; IV Intake: 100ml rv 00:29 Drug: Calcium Gluconate IVPB 1 grams Route: IVPB; Infused Over: 60 mins; Site: right rv forearm; 00:29 Follow up: IV Status: Infusion continued upon admission rv Disposition Summary: 09/24/22 22:46 Hospitalization Ordered Hospitalization Status: Inpatient Admission sp4 Provider: Kem Mack sp4 Location: Telemetry/MedSur (Inpatient) sp4 Condition: Fair sp4 Problem: new sp4 Symptoms: have improved sp4 Bed/Room Type: Standard sp4 Room Assignment: 223(09/25/22 00:07) eb1 Diagnosis - Acute hypoactive delirium, urinary tract infection, acute cystitis, sacral sp4 decubitus ulcers, physical deconditioning, senility with acute psychosis, immobility complications Forms: - Medication Reconciliation Form sp4 - SBAR form sp4 - Leadership Thank You Letter sp4 Signatures: Dispatcher [employer] Cat Genao RN RN ss Deysi Mcmahon RN RN Frida Nj RN RN eb1 Fan Ferreira RN RN Derik Yost DO DO ms3 Georges Padgett MD MD sp4 Corrections: (The following items were deleted from the chart) 00:07 09/24 22:46 sp4 eb1
[2022-09-24] MEDS ORDERED: CEFTRIAXONE 1000 MG/VIAL ONE (22:48)
[2022-09-24] MEDS ORDERED: NA CHLORIDE 0.9% 100 ML ONE ×2 (22:48→22:57)
[2022-09-24] MEDS ORDERED: Meropenem 500 MG VIAL IV ONE (22:56)
--- NOTE | 2022-09-24 23:46 | P.HP ---
Certification for Inpatient Patient admitted to: Inpatient With expected LOS: >2 Midnights Patient will require the following post-hospital care: None Practitioner: I am a practitioner with admitting privileges, knowledge of patient current condition, hospital course, and medical plan of care. Services: Services provided to patient in accordance with Admission requirements found in Title 42 Section 412.3 of the Code of Federal Regulations Patient History Date of Service: 09/24/22 Reason for admission: UTI, AMS History of Present Illness: 82-year-old female with history of ESRD on HD TTS, previous CVA with right-sided weakness, insulin-dependent diabetes, hypertension, atrial fibrillation on chronic anticoagulation, hypothyroidism, pacemaker placement presents the emergency department with chief complaint of altered mental status. Her daughter in law/MPOA is at bedside reports that ever since she was seen in the emergency department on the weekend 09/21/2022 she has been declining with worsening mental status, lethargy also noted some twitching primarily affecting her left side. They report she is not acting herself at all, she was also hospitalized 09/05/2022 and subsequently discharged on 09/11/2022 with UTI, wounds, she had MDR bacteria present in her wounds and urine at that time she was treated with IM Invanz as well as vancomycin [facility]. She was evaluated today in the emergency department her labs were significant for white blood cell count 10.6 hemoglobin 10.5 medic at 33.1 sodium 134 creatinine 3.65 GFR 12 glucose 203 CRP, Pro-Cj, lactate pending urinalysis extremely turbid with leuk esterase, white blood cell, bacteria. Previous urine culture reviewed was positive for Proteus Mirabilis, her wound cultures were positive for Acetobacter dalton/haem, Klebsiella pneumoniae ESBL, MRSA. She was seen by infectious disease, wound healing during her previous hospitalization, she will need to be admitted for UTI, AMS. Allergies No Known Allergies Allergy (Verified 08/06/22 09:03) Home Medications: Atorvastatin Calcium [Lipitor] 1 tab PO BEDTIME 05/08/17 Duloxetine [Cymbalta *] 1 cap PO DAILY 05/08/17 Acetaminophen with Codeine [Acetaminophen-Cod #3 Tablet] 1 tab PO Q6HP PRN 03/19/22 Amiodarone HCl [Pacerone] 200 mg PO BID 06/22/22 Ascorbic Acid 500 mg PO BID 06/22/22 Gabapentin 200 mg PO BEDTIME 06/22/22 Levothyroxine [Synthroid*] 125 mcg PO [id number] 06/22/22 Mag Hydroxide 8% [Milk Of Magnesia*] 30 ml PO DAILYPRN PRN 06/22/22 Ondansetron [Zofran (Odt)*] 4 mg PO Q8HP PRN 06/22/22 Zinc Sulfate [Zinc Sulfate*] 220 mg PO DAILY 06/22/22 Collagenase [Santyl Ointment*] 1 appl TOP DAILY #1 tube 06/25/22 Clopidogrel Bisulfate [Plavix*] 75 mg PO DAILY 07/22/22 Docusate [Colace Cap*] 100 mg PO SEECOM 07/22/22 Metoprolol Succinate 12.5 mg PO DAILY 07/22/22 Polyethyl Gly 3350 [Glycolax*] 17 gm PO DAILY 07/22/22 Protein Supplement [Promod] 60 ml PO BID 07/22/22 lisinopriL [Prinivil*] 5 mg PO DAILY #30 tab 07/26/22 Apixaban [Eliquis *] 2.5 mg PO BID 09/06/22 Insulin NPH Hum/Reg Insulin Hm [Humulin 70/30 Kwikpen] 10 unit SQ BID 09/06/22 Lactulose [Enulose] 10 gm PO SEECOM 09/06/22 Phenol [Chloraseptic] 5 spray PO Q2HP PRN 09/06/22 Saccharomyces Boulardii [Daily Probiotic] 1 cap PO BID 09/06/22 guaiFENesin [Stephani-Tussin] 10 ml PO Q6HP PRN 09/06/22 Collagenase [Santyl Ointment*] 1 appl TOP DAILY tube 09/11/22 - Past Medical/Surgical History Diabetic: Yes -: CVA with right-sided weakness -: Insulin dependent type 2 Diabetes -: Hypertension -: Atrial Fibrillation -: NEUROPATHY -: HLD -: HYPOTHYROIDISM -: ESRD on HD -: chronic osteomyelitis with non-healing ulcer right great toe s/p fall(2017) -: afib vs supraventricular tachycardia -: thyroidectomy -: cataract sx -: hysterectomy -: pacemaker -: Left great toe amputation Psychosocial/ Personal History: [facility] - Family History Mother -: Hypertension Father -: Diabetes - Social History Smoking Status: Never smoker Alcohol use: No CD- Drugs: No Caffeine use: No Place of Residence: Home Review of Systems is unable to be obtained Physical Examination - Physical Exam General: Alert, In no apparent distress, Demented, Confused, Obese HEENT: Atraumatic, PERRLA, Mucous membr. 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) - Studies Laboratory Data (last 24 hrs) 09/24/22 09/24/22 19:25 19:25 WBC 10.60 Hgb 10.5 L Hct 33.1 L Plt Count 163 Sodium 134 L Potassium 4.6 BUN 32 H Creatinine 3.65 H Glucose 203 H Magnesium 2.1 Total Bilirubin 0.5 AST 19 ALT 18 Alkaline Phosphatase 91 Assessment and Plan - Plan Assessment: Metabolic encephalopathy likely secondary to UTI-history of MDR UTI/wound infections ESRD on HD TTS Atrial fibrillation on chronic anticoagulation Diabetes mellitus type 2insulin-dependent with hyperglycemia History of CVA with right-sided weakness Hypertension Hypothyroidism Pacemaker in place Plan: Metabolic encephalopathy likely secondary to UTI-history of MDR UTI/wound infections Blood cultures obtained in the emergency department, urine and urine culture also obtained. Wounds appear to be improving will obtain x-ray to rule out osteomyelitis. Continue antibiotics/meropenem at this time. Infectious disease consulted. No SIRS criteria present currently. ESRD on HD TTS Nephrology consulted Atrial fibrillation on chronic anticoagulation Amiodarone, metoprolol, Eliquis continued. Diabetes mellitus type 2insulin-dependent with hyperglycemia ACHS Accu-Chek, sliding scale insulin. History of CVA with right-sided weakness Eliquis, Plavix continue. Hypertension Home medications continued Hypothyroidism Levothyroxine continued Pacemaker in place Noted, will not be able to receive MRI. DVT PPX: Continue Eliquis Code status: Full Discharge Plan: Home Plan to discharge in: 72 Hours - Advance Directives Does patient have a Living Will: No Does patient have a Durable POA for Healthcare: No - Code Status/Comfort Care Code Status Assessed: Yes (Full code) Critical Care: No Time Spent Managing Pts Care (In Minutes): 70
[2022-09-25] MEDS ORDERED: CALCIUM GLUCONATE 1 GM IVPB 1 GM/50 ML BAG IV ONE (00:14)
[2022-09-25 01:12] LABS: C-Reactive Protein 69.7 mg/L (<3.00)
[2022-09-25 01:13] LABS: Thyroid Stimulating Hormone 28.9 uIU/mL (0.358-3.740)
[2022-09-25] MEDS ORDERED: INSULIN -REGULAR HUMAN 50 UNIT/0.5 ML ML SQ PRN (01:22)
[2022-09-25 03:15] VITALS: BMI 40.2
[2022-09-25 03:47] LABS: Absolute Lymphocytes (CBC) 0.7 K/uL (0.7-4.9); Hematocrit 35.1 % (36.0-45.0); Lymphocytes % 9.4 % (15.3-44.8); MPV 8.9 fL (7.6-11.3); Platelets 113 thou/uL (152-406); RBC Red Blood Cell Count 3.54 M/uL (3.86-4.86)
[2022-09-25 04:00] LABS: Potassium 4.5 mEq/L (3.5-5.1)
[2022-09-25] MEDS: LEVOTHYROXINE SOD 0.125 MG TAB PO SCH (05:24)
[2022-09-25] MEDS ORDERED: VANCOMYCIN 1 GM in NA CHLORIDE 0.9% 250 ML IVPB SCH (06:00)
[2022-09-25] MEDS ORDERED: VANCOMYCIN 2 GM in NA CHLORIDE 0.9% 500 ML IVPB SCH ×3 (06:00→08:00)
--- NOTE | 2022-09-25 07:22 | P.PN ---
Date of Service: 09/25/22 Subjective: doing okay denies any pain family at bedside report she seems more clear of mind, responding more appropriate / more alert afebrile ROS: 10 point ROS as noted above, otherwise negative Physical Exam: GEN: Alert, orientedx2, Confused HEENT: Normal conjunctiva, sclera anicteric CV: Regular rate and rhythm, no edema Pulm: Nonlabored respirations on room air ABD: Soft, nontender, nondistended Integumentary: sacral ulcer; L foot wounds, erythema around base of 3rd toe Neuro: Dementia, Right-sided paraplegia vitals reviewed Problem List: Metabolic encephalopathy likely secondary to UTI Sacral ulcer, stage 4 left great toe amputation stump wound 3rd toe ulceration/wound h/o of MDR UTI/wound infections ESRD on HD TTS Atrial fibrillation on chronic anticoagulation IDDM2 with hyperglycemia History of CVA with right-sided weakness Hypertension Hypothyroidism Pacemaker in place Metabolic encephalopathy likely secondary to UTI h/o of MDR UTI/wound infections CT head (09/24): No evidence of an acute intracranial process UA: +LE, RBC >50, WBC >50, +Bacteria, +Yeast Urine cx ordered Blood cx: pending ID consulted continue empiric merrem / vanc (09/24-) Sacral ulcer, left great toe amputation stump wound Xray Foot (09/24): Findings highly suspicious or sequela from advanced osteomyelitis of the distal first metatarsal. Lucency in the overlying soft tissues which may be secondary to infection or postsurgical Wound cx ordered General surgery consulted for L foot wounds / concern for osteomyelitis santyl/dry gauze foot and sacrum ulcer. f[facility] ESRD on HD TTS Nephrology consulted Atrial fibrillation on chronic anticoagulation. continue Amiodarone, metoprolol, Eliquis IDDM2 with hyperglycemia. ACHS Accu-Chek, SSI History of CVA with right-sided weakness. Continue home eliquis, plavix Hypertension. Continue home medications Hypothyroidism. Continue Levothyroxine Pacemaker in place. Noted, will not be able to receive MRI. VTE: Home eliquis Code: Full Dispo: Home ~2-3 days
[2022-09-25] MEDS: INSULIN -REGULAR HUMAN 50 UNIT/0.5 ML ML SQ SCH ×4 (07:30→21:00)
[2022-09-25] MEDS: APIXABAN 2.5 MG TABLET PO SCH ×2 (08:52→21:19)
[2022-09-25] MEDS: METOPROLOL XL 25 MG TAB PO SCH (08:52)
[2022-09-25] MEDS: AMIODARONE HCL 200 MG TAB PO SCH ×2 (08:52→21:00)
[2022-09-25] MEDS: CLOPIDOGREL 75 MG TABLET PO SCH (08:52)
[2022-09-25] MEDS ORDERED: Meropenem 1,000 MG in NA CHLORIDE 0.9% 100 ML IV SCH (09:00)
[2022-09-25] MEDS ORDERED: Meropenem 500 MG/100 ML BAG IV SCH (09:00)
[2022-09-25] MEDS ORDERED: Meropenem 500 MG in NA CHLORIDE 0.9% 100 ML IV SCH (09:00)
--- NOTE | 2022-09-25 09:49 | P.CNS ---
Date of Consult: 09/25/22 Reason for Consult: hx MDRO, possible UTI, AMS Chief Complaint: UTI, AMS History of Present Illness: Patient is an 82 yo female with a past medical history of ESRD on HD TTS, CVA with right sided weakness, diabetes type 2, hypertension and atrial fibrillation who [facility] for altered mental status. Patient has had multiple recent hospitalizations for recurrent infections with multi-drug resistant organisms in urine and wounds. Allergies No Known Allergies Allergy (Verified 09/25/22 01:17) Home medications list reviewed: Yes Home Medications: Atorvastatin Calcium [Lipitor] 1 tab PO BEDTIME 05/08/17 Duloxetine [Cymbalta *] 1 cap PO DAILY 05/08/17 Acetaminophen with Codeine [Acetaminophen-Cod #3 Tablet] 1 tab PO Q6HP PRN 03/19/22 Amiodarone HCl [Pacerone] 200 mg PO Q12HR 06/22/22 Ascorbic Acid 500 mg PO BID 06/22/22 Gabapentin 200 mg PO BEDTIME 06/22/22 Levothyroxine [Synthroid*] 125 mcg PO [id number] 06/22/22 Mag Hydroxide 8% [Milk Of Magnesia*] 30 ml PO DAILYPRN PRN 06/22/22 Ondansetron [Zofran (Odt)*] 4 mg PO Q8HP PRN 06/22/22 Zinc Sulfate [Zinc Sulfate*] 220 mg PO DAILY 06/22/22 Collagenase [Santyl Ointment*] 1 appl TOP DAILY #1 tube 06/25/22 Clopidogrel Bisulfate [Plavix*] 75 mg PO DAILY 07/22/22 Docusate [Colace Cap*] 100 mg PO SEECOM 07/22/22 Metoprolol Succinate 12.5 mg PO DAILY 07/22/22 Polyethyl Gly 3350 [Glycolax*] 17 gm PO DAILY 07/22/22 Protein Supplement [Promod] 60 ml PO BID 07/22/22 lisinopriL [Prinivil*] 5 mg PO DAILY #30 tab 07/26/22 Apixaban [Eliquis *] 2.5 mg PO BID 09/06/22 Insulin NPH Hum/Reg Insulin Hm [Humulin 70/30 Kwikpen] 10 unit SQ BID 09/06/22 Lactulose [Enulose] 10 gm PO SEECOM 09/06/22 guaiFENesin [Stephani-Tussin] 10 ml PO Q6HP PRN 09/06/22 Collagenase [Santyl Ointment*] 1 appl TOP DAILY tube 09/11/22 - Past Medical/Surgical History Diabetic: Yes -: CVA with right-sided weakness -: Insulin dependent type 2 Diabetes -: Hypertension -: Atrial Fibrillation -: NEUROPATHY -: HLD -: HYPOTHYROIDISM -: ESRD on HD -: chronic osteomyelitis with non-healing ulcer right great toe s/p fall(2017) -: afib vs supraventricular tachycardia -: thyroidectomy -: cataract sx -: hysterectomy -: pacemaker -: Left great toe amputation Psychosocial/ Personal History: prison - Family History Mother Medical History: Hypertension Father Medical History: Diabetes - Social History Smoking Status: Unknown if ever smoked Alcohol use: No CD- Drugs: No Caffeine use: No Place of Residence: Longterm Review of Systems is unable to be obtained (altered mental status) Physical Examination Temp Pulse Resp BP Pulse Ox 97.5 F 59 18 133/59 L 94 09/25/22 04:00 09/25/22 04:00 09/25/22 04:00 09/25/22 04:00 09/25/22 04:00 General: In no apparent distress, Oriented x1 Neck: Supple, JVD not distended Respiratory: Normal air movement (on room air), Diminished (at bases) Cardiovascular: Edema (trace BLE edema), Abnormal pulses (weak DP and PT pulses bilaterally) Gastrointestinal: Normal bowel sounds, Soft and benign Musculoskeletal: No clubbing, Other (amputation left first toe) Integumentary: Pressure ulcer (sacrum stage 4), Arterial ulcer (left 3rd toe) Laboratory Data - Reviewed Microbiology Data - Reviewed Imagings Data: - Reviewed Conclusions/Impression: Problem List ESRD on HD Diabetes Mellitus Type II Hypertension Hypothyroidism Atrial Fibrillation PAD Hx CVA with right sided weakness hx left first toe amputation Chronic Sacral Pressure Injury stage 4 Severe PCM Left Third Toe Pressure vs Arterial Ulcer Concern for Osteomyelitis - XR Left Foot 09/24: " 1. Findings highly suspicious or sequela from advanced osteomyelitis of the distal first metatarsal. Lucency in the overlying soft tissues which may be secondary to infection or postsurgical. 2. Patient is status post amputation of the first toe. " - hx of osteomyelitis and gangrene s/p amputation of left first toe - General surgery consulted Urinary Tract Infection, Recurrent History of Multi-Drug Resistant Infections - Urinalysis 09/24: LE 500, RBC >50, WBC >50, Many WBC clumps, Bacteria 20-50, Many yeast - Urine culture 09/25: Pending - Wound culture sacrum 09/25: pending - Due to history of MDR infection and recent antibiotic use and hospitalizations, patient was started on Meropenem and Vancomycin 09/25 - 09/06 sacral wound culture: Proteus mirabilis - 09/06 left toe wound culture: Acinetobacter dalton/haem , Klebsiella Pneumoniae ESBL , and Methicillin-Resistant Staphylococcus aureus Blood cultures 09/24: Pending Afebrile. Recommendations - Continue Meropenem and Vancomycin for now. Renally dose medications. Nephrology on case. - Will follow up with blood, wound and urine culture results and adjust antibiotics as needed. - obtain MRSA nasal swab screen - Recommend MRI of left foot to eval for osteomyelitis. General surgery on case. - strict blood glucose control - Pressure offloading measures. Wedge pillow. Low air loss mattress. Turn patient Q2H. - Left 3rd toe ulcer: apply telfa nonstick pad between toes to relieve pressure on left third toe Case discussed with Boogie Eaton
--- NOTE | 2022-09-25 11:10 | RAD REPORT ---
EXAM DESCRIPTION: RAD - Foot Left 2 View - 09/24/2022 11:47 pm CLINICAL HISTORY: Eval for osteo TECHNIQUE: 2 views of the left foot are submitted. COMPARISON: Prior radiograph from March 19 FINDINGS: Patient is status post amputation of the first toe. Cortical irregularity and lucencies along the distal first metatarsal with flattening of the head of the metatarsal highly suspicious or sequela from advanced osteomyelitis. Lucency in the overlying soft tissues which may be secondary to infection or postsurgical. Osteopenia and hammertoe deformities noted. Atherosclerotic calcifications. IMPRESSION: 1. Findings highly suspicious or sequela from advanced osteomyelitis of the distal fir st metatarsal. Lucency in the overlying soft tissues which may be secondary to infection or postsurgi dragan. 2. Patient is status post amputation of the first toe. Electronically signed by: Tee Bronson MD 09/25/2022 12:01 AM CDT Due to temporary technical issues with the PACS/Fluency reporting system, reports are being signed by the in house radiologist without review as a courtesy to ensure prompt reporting. The interpreting r adiologist is fully responsible for the content of the report.
[2022-09-25] MEDS ORDERED: Levofloxacin 750mg IV 750 MG/150 ML BAG IV ONE (13:00)
--- NOTE | 2022-09-25 13:19 | P.CNS ---
Date of Consult: 09/25/22 Reason for Consult: left foot non healinfg wound and sacral pressure ulcer Chief Complaint: UTI, AMS History of Present Illness: 82 y/o female known by me due to emergent to amputation for gangrene. Pt has been f/u at wound healing center for wound care and pressure ulcer evaluation. PT admitted for UTI and weakness. and wound eveluation consult was requested Allergies No Known Allergies Allergy (Verified 09/25/22 01:17) Home Medications: Atorvastatin Calcium [Lipitor] 1 tab PO BEDTIME 05/08/17 Duloxetine [Cymbalta *] 1 cap PO DAILY 05/08/17 Acetaminophen with Codeine [Acetaminophen-Cod #3 Tablet] 1 tab PO Q6HP PRN 03/19/22 Amiodarone HCl [Pacerone] 200 mg PO Q12HR 06/22/22 Ascorbic Acid 500 mg PO BID 06/22/22 Gabapentin 200 mg PO BEDTIME 06/22/22 Levothyroxine [Synthroid*] 125 mcg PO [id number] 06/22/22 Mag Hydroxide 8% [Milk Of Magnesia*] 30 ml PO DAILYPRN PRN 06/22/22 Ondansetron [Zofran (Odt)*] 4 mg PO Q8HP PRN 06/22/22 Zinc Sulfate [Zinc Sulfate*] 220 mg PO DAILY 06/22/22 Collagenase [Santyl Ointment*] 1 appl TOP DAILY #1 tube 06/25/22 Clopidogrel Bisulfate [Plavix*] 75 mg PO DAILY 07/22/22 Docusate [Colace Cap*] 100 mg PO SEECOM 07/22/22 Metoprolol Succinate 12.5 mg PO DAILY 07/22/22 Polyethyl Gly 3350 [Glycolax*] 17 gm PO DAILY 07/22/22 Protein Supplement [Promod] 60 ml PO BID 07/22/22 lisinopriL [Prinivil*] 5 mg PO DAILY #30 tab 07/26/22 Apixaban [Eliquis *] 2.5 mg PO BID 09/06/22 Insulin NPH Hum/Reg Insulin Hm [Humulin 70/30 Kwikpen] 10 unit SQ BID 09/06/22 Lactulose [Enulose] 10 gm PO SEECOM 09/06/22 guaiFENesin [Stephani-Tussin] 10 ml PO Q6HP PRN 09/06/22 Collagenase [Santyl Ointment*] 1 appl TOP DAILY tube 09/11/22 - Past Medical/Surgical History Diabetic: Yes -: CVA with right-sided weakness -: Insulin dependent type 2 Diabetes -: Hypertension -: Atrial Fibrillation -: NEUROPATHY -: HLD -: HYPOTHYROIDISM -: ESRD on HD -: chronic osteomyelitis with non-healing ulcer right great toe s/p fall(2017) -: afib vs supraventricular tachycardia -: thyroidectomy -: cataract sx -: hysterectomy -: pacemaker -: Left great toe amputation Psychosocial/ Personal History: longterm - Family History Mother Medical History: Hypertension Father Medical History: Diabetes - Social History Smoking Status: Unknown if ever smoked Alcohol use: No CD- Drugs: No Caffeine use: No Place of Residence: [place] Review of Systems Respiratory: Shortness of Breath (no) Cardiovascular: Chest Pain (no) Gastrointestinal: Nausea (no), Vomiting (no) Integumentary: As per HPI Physical Examination Temp Pulse Resp BP Pulse Ox 97.9 F 60 20 124/54 L 92 09/25/22 08:00 09/25/22 08:00 09/25/22 08:00 09/25/22 08:00 09/25/22 08:00 General: Alert, In no apparent distress HEENT: PERRLA, EOMI Neck: Supple Respiratory: Clear to auscultation bilaterally Gastrointestinal: Soft and benign Integumentary: Pressure ulcer (sacral/buttock stage 3. fibrin present , no cellulitis, no fluctuancy), Arterial ulcer (left foot wound afer toe gangrene with good granulation, no celullitis) Laboratory Data (last 24 hrs) 09/24/22 09/24/22 19:25 19:25 WBC 10.60 Hgb 10.5 L Hct 33.1 L Plt Count 163 Sodium 134 L Potassium 4.6 BUN 32 H Creatinine 3.65 H Glucose 203 H Magnesium 2.1 Total Bilirubin 0.5 AST 19 ALT 18 Alkaline Phosphatase 91 Conclusions/Impression: Off loading nutrition santyl/dry gauze foot and sacrum ulcer. f/u at [facility] healing center [facility] fr[facility]
--- NOTE | 2022-09-25 14:21 | CON ---
Date of Consultation: 09/25/2022 Reason For Consultation: Elevated BUN and creatinine, end-stage renal disease, dialysis management. History Of Present Illness: This is a pleasant 82-year-old female with significant past medical hist ory of end-stage renal disease, on hemodialysis TTS, last dialysis yesterday at [facility], CVA, dementia, CAD with normal ejection fraction, diabetes complicated with neuropathy, ne phropathy, hyperlipidemia, PAD. The patient was admitted with toe infection, status post toe amputat ion. The patient found to have multidrug organism. The patient was started on meropenem because of the limited sensitivity. Since was started on meropenem, the patient started being altered mental st atus. The patient went to the dialysis yesterday, found to be altered mental status, for that reason sent here. Past Medical History: Includes; 1.Diabetes. 2.Hypertension. 3.CAD with preserved ejection fraction, CHF diastolic. 4.CVA. 5.Dementia. Allergies: NO KNOWN DRUG ALLERGIES. Social History: Lives in [facility]. Denied smoking. Denied drinking. Denied drugs abuse. Review of Systems: None obtainable. The patient has altered mental status. Past Surgical History: Includes tunneled dialysis catheter placement, toe amputation, hysterectomy, PermCath placement, thyroidectomy, pacemaker insertion. Home Medications: Include; 1.Meropenem. 2.Vancomycin. 3.Cymbalta. 4.Tylenol. 5.Eliquis. 6.Amiodarone. 7.Levothyroxine. 8.Zofran. 9.Epogen. Physical Examination: Vital Signs: When I saw the patient; blood pressure of 124/54, pulse of 60, afebrile. Chest: Clear to auscultation. Heart: S1, S2. Regular. Systolic murmur. Abdomen: Soft, nontender. Extremity: Dressing on the left foot. Neurologic: Alert, confused, pleasant. No focality. Laboratory Data: WBC 7.11, hemoglobin 11.1. Sodium 133, potassium 4.5, bicarb 22, BUN 37, creatinin e 3.9, calcium 7.6. Current Medications: The patient on; 1.Meropenem. 2.Vancomycin. 3.Eliquis. 4.Metoprolol. 5.Amiodarone. 6.Zofran. 7.Levothyroxine. Assessment And Plan: 1.End-stage renal disease. We will continue the patient on dialysis TTS. We will arrange for dialy sis tomorrow. 2.Hyponatremia, will be corrected with dialysis. 3.Hypertension, controlled, optimal. Continue current treatment. 4.Anemia of chronic kidney disease. Continue JOHNNY. 5.Altered mental status, possible secondary to infection, metabolic/possible secondary to meropenem. I had discussion with ID. We are going to switch the patient to Flagyl and Levaquin, and we will m onitor the patient to see the response and we will follow up. We will consider replacing on Bactrim if okay with ID. We will follow up with primary. 6.Diabetes as by primary. Time spent examining the patient [id number], reviewing data, lab and radiology, placing order, disc ussing the case with the team foreman including other consulting ID and nursing staff with the hospitalist more than 65 minutes. YUDITH Voice ID: [id number] Report ID: [id number]
[2022-09-25] MEDS: COLLAGENASE 30 GM OINTMENT TOP SCH (16:51)
[2022-09-25] MEDS: METRONIDAZOLE 500mg IVPB 500 MG/100 ML BAG IV SCH (16:52)
[2022-09-25 17:54] LABS: Specific Gravity 1.018 (1.005-1.030); Urine Bacteria <20 /HPF (<20); Urine Bilirubin NEGATIVE (Negative); Urine Blood 2+ (Negative); Urine Clarity Extremely Turbid (Clear); Urine Color Orange (Yellow); Urine Glucose NEGATIVE (Negative); Urine Protein 2+ (Negative); Urine RBC >50 /HPF (None Seen); Urine Urobilinogen Normal (Normal); Urine WBC Clump Many /HPF (None Seen); Urine pH 5.5 (5.0-7.0)
--- NOTE | 2022-09-25 18:27 | EKG ---
Test Date: 2022-09-24 Test Time: 18:29:37 Cook Frozen Dessert: PH MEASUREMENT RESULTS: Intervals: Rate: 75 [place]: 214 QRSD: 150 QT: 474 QTc: 529 [place]: P: 59 [place]: 214 QRS: -50 T: 40 INTERPRETIVE STATEMENTS: Sinus rhythm with 1st degree AV block Right bundle branch block Left anterior fascicular block Bifascicular block Abnormal ECG Compared to ECG 09/21/2022 16:05:26 First degree AV block now present Left anterior fascicular block now present Bifascicular block now present Sinus bradycardia no longer present Electronically Signed On 09-25-22 18:25:34 CDT by Lui Tomlinson
[2022-09-25] MEDS: ATORVASTATIN 80 MG TAB PO SCH (21:20)
[2022-09-25] MEDS: AMINO ACIDS/PROTEIN HYDROLYS 30 ML LIQUID.PKT PO SCH (21:20)
[2022-09-25] MEDS: SMZ./TMP. 800/160 MG TABLET PO SCH (21:20)
[2022-09-26] MEDS: METRONIDAZOLE 500mg IVPB 500 MG/100 ML BAG IV SCH ×2 (00:21→08:48)
[2022-09-26] MEDS ORDERED: ALPRAZOLAM 0.25 MG TABLET PO ONE (02:44)
[2022-09-26 05:35] LABS: Hematocrit 27.8 % (36.0-45.0); Lymphocytes % 12.4 % (15.3-44.8); MCV 98.7 fL (80-100); MPV 8.3 fL (7.6-11.3); Platelets 180 thou/uL (152-406); RBC Red Blood Cell Count 2.82 M/uL (3.86-4.86)
[2022-09-26 05:56] LABS: C-Reactive Protein 54.1 mg/L (<3.00); Potassium 4.8 mEq/L (3.5-5.1)
[2022-09-26] MEDS: LEVOTHYROXINE SOD 0.125 MG TAB PO SCH (06:12)
[2022-09-26] MEDS: INSULIN -REGULAR HUMAN 50 UNIT/0.5 ML ML SQ SCH ×4 (07:30→21:00)
--- NOTE | 2022-09-26 07:48 | P.PN ---
Date of Service: 09/26/22 Subjective: Mentation improved denies any pain no new / worsening problems afebrile ROS: 10 point ROS as noted above, otherwise negative Physical Exam: GEN: Alert, orientedx3, Confused HEENT: Normal conjunctiva, sclera anicteric CV: Regular rate and rhythm, no edema Pulm: Nonlabored respirations on room air ABD: Soft, nontender, nondistended Integumentary: sacral ulcer; L foot wounds, erythema around base of 3rd toe Neuro: Dementia, Right-sided paraplegia vitals reviewed Problem List: Metabolic encephalopathy likely secondary to UTI Sacral ulcer, stage 4 left great toe amputation stump wound 3rd toe ulceration/wound h/o of MDR UTI/wound infections ESRD on HD TTS Atrial fibrillation on chronic anticoagulation IDDM2 with hyperglycemia History of CVA with right-sided weakness Hypertension Hypothyroidism Pacemaker in place Metabolic encephalopathy likely secondary to UTI h/o of MDR UTI/wound infections CT head (09/24): No evidence of an acute intracranial process UA: +LE, RBC >50, WBC >50, +Bacteria, +Yeast Urine cx ordered Blood cx: +GPC on stain ID consulted continue empiric merrem / vanc (09/24-) Bactrim added 09/25 Sacral ulcer, left great toe amputation stump wound Xray Foot (09/24): Findings highly suspicious or sequela from advanced osteomyelitis of the distal first metatarsal. Lucency in the overlying soft tissues which may be secondary to infection or postsurgical Wound cx ordered General surgery consulted for L foot wounds / concern for osteomyelitis santyl/dry gauze foot and sacrum ulcer. f/u at wound healing center next friday ESRD on HD TTS Nephrology consulted Atrial fibrillation on chronic anticoagulation. continue Amiodarone, metoprolol, Eliquis IDDM2 with hyperglycemia. ACHS Accu-Chek, SSI History of CVA with right-sided weakness. Continue home eliquis, plavix Hypertension. Continue home medications Hypothyroidism. Continue Levothyroxine Pacemaker in place. Noted, will not be able to receive MRI. VTE: Home eliquis Code: Full Dispo: Home ~2-3 days
[2022-09-26] MEDS: SMZ./TMP. 800/160 MG TABLET PO SCH ×2 (08:47→21:24)
[2022-09-26] MEDS: AMIODARONE HCL 200 MG TAB PO SCH ×2 (08:48→21:00)
[2022-09-26] MEDS: COLLAGENASE 30 GM OINTMENT TOP SCH (08:48)
[2022-09-26] MEDS: METOPROLOL XL 25 MG TAB PO SCH (08:48)
[2022-09-26] MEDS: APIXABAN 2.5 MG TABLET PO SCH ×2 (08:48→21:24)
[2022-09-26] MEDS: CLOPIDOGREL 75 MG TABLET PO SCH (08:48)
[2022-09-26] MEDS: AMINO ACIDS/PROTEIN HYDROLYS 30 ML LIQUID.PKT PO SCH ×2 (08:48→21:26)
--- NOTE | 2022-09-26 12:57 | PN ---
Date of Progress Note: 09/26/2022 Subjective: The patient was admitted to the hospital with altered mental status. The patient has be en on meropenem secondary to multidrug resistant. Yesterday, we held meropenem, switched to Flagyl a nd Levaquin. The patient more awake today. Physical Examination: Vital Signs: When I saw the patient; blood pressure 132/61, pulse of 54, afebrile. Chest: Clear to auscultation. Heart: S1, S2. Regular. Systolic murmur. Abdomen: Soft, nontender. Extremities: Dressing on the left foot. Neurologic: Alert, oriented to place and person. Laboratory Data: Hemoglobin 9.1. Sodium 132, potassium 4.8, bicarb 23, BUN 46, creatinine 5, calciu m 7.9. Current Medications: The patient on include; 1.Levaquin. 2.Bactrim. 3.Meropenem. 4.Vancomycin. 5.Plavix. 6.Amiodarone 200 b.i.d. 7.Metoprolol. 8.Zofran. Assessment And Plan: 1.End-stage renal disease, normal volume. We will continue dialysis TTS. The patient is scheduled for dialysis today. 2.Hypertension, controlled, optimal. Continue current treatment. 3.Hyponatremia secondary to renal failure. Will be corrected with dialysis. 4.Foot infection, multidrug resistant. I discussed with Dr. Beal. Again, we agreed to switch for Flagyl and vancomycin with Levaquin. We will follow up. 5.Altered mental status, medication induced. We will follow up with primary and ID on changes as ab ove. LORENZANA/LAYLA Voice ID: [id number] Report ID: [id number]
--- NOTE | 2022-09-26 14:27 | P.PN ---
Date of Service: 09/26/22 Chief Complaint: UTI, AMS Subjective: Patient seen and examined at bedside. She is more alert and responsive today although remains lethargic. + buttocks/sacrum pain + Shortness of breath at bedside. Physical Examination Temp Pulse Resp BP Pulse Ox 97.2 F 54 16 132/61 96 09/26/22 08:00 09/26/22 08:00 09/26/22 08:00 09/26/22 08:00 09/26/22 08:00 General: In no apparent distress, Oriented x2-3 Neck: Supple, JVD not distended Respiratory: Normal air movement. Diminished at bases. On 2L nasal cannula. Cardiovascular: Trace BLE edema, Weak DP and PT pulses bilaterally Gastrointestinal: Normal bowel sounds, Soft and benign Musculoskeletal: No clubbing. Hx amputation left first toe Integumentary: Pressure ulcer of sacrum stage 4. Arterial ulcer of left 3rd toe. Laboratory Data - Reviewed Microbiology Data - Reviewed Imagings Data: - Reviewed Medications List: Reviewed Conclusions/Impression: Problem List ESRD on HD Diabetes Mellitus Type II Hypertension Hypothyroidism Atrial Fibrillation PAD Hx CVA with right sided weakness Pacemaker hx left first toe amputation Chronic Sacral Pressure Injury stage 4 Severe PCM Left Third Toe Pressure vs Arterial Ulcer Concern for Osteomyelitis - XR Left Foot 09/24: " 1. Findings highly suspicious or sequela from advanced osteomyelitis of the distal first metatarsal. Lucency in the overlying soft tissues which may be secondary to infection or postsurgical. 2. Patient is status post amputation of the first toe. " - hx of osteomyelitis and gangrene s/p amputation of left first toe - General surgery consulted Urinary Tract Infection, Recurrent History of Multi-Drug Resistant Infections - Urinalysis 09/24: LE 500, RBC >50, WBC >50, Many WBC clumps, Bacteria 20-50, Many yeast - Urine culture 09/25: Pending - Wound culture sacrum 09/25: pending - Due to history of MDR infection and recent antibiotic use and hospitalizations, patient was started on Meropenem and Vancomycin 09/25 - 09/06 sacral wound culture: Proteus mirabilis - 09/06 left toe wound culture: Acinetobacter dalton/haem , Klebsiella Pneumoniae ESBL , and Methicillin-Resistant Staphylococcus aureus Blood cultures 09/24: gram positive cocci in clusters in 1 of 4 bottles. Afebrile. Recommendations - Continue Meropenem and Vancomycin for now. May consider addition of Ceftazidime to cover prior acinetobacter culture on 09/06. Will follow up with blood, wound and urine culture results and adjust antibiotics as needed. - Medical management of osteomyelitis, patient will require 6 weeks of IV antibiotics. - Strict blood glucose control - Pressure offloading measures. Wedge pillow. Low air loss mattress. Turn patient Q2H. - Renally dose medications. Nephrology on case. - Left 3rd toe ulcer: apply telfa nonstick pad between toes to relieve pressure on left third toe Patient would benefit from LTAC placement for detention IV antibiotics and wound care. She is at high risk of reinfection and complications considering multiple comorbidities and multi-drug resistant organisms. Case discussed with Boogie Eaton
[2022-09-26] MEDS: Meropenem 500 MG in NA CHLORIDE 0.9% 100 ML IV SCH (16:58)
[2022-09-26] MEDS ORDERED: Meropenem 500 MG in NA CHLORIDE 0.9% 100 ML IV SCH (18:00)
[2022-09-26] MEDS ORDERED: VANCOMYCIN 1 GM in NA CHLORIDE 0.9% 250 ML IVPB SCH (18:00)
[2022-09-26] MEDS ORDERED: Levofloxacin 250mg IV 250 MG/50 ML BAG IV SCH (18:00)
[2022-09-26] MEDS: ATORVASTATIN 80 MG TAB PO SCH (21:24)
[2022-09-27 03:15] LABS: Absolute Lymphocytes (CBC) 0.7 K/uL (0.7-4.9); Hematocrit 26.6 % (36.0-45.0); Lymphocytes % 11.9 % (15.3-44.8); MCV 98.2 fL (80-100); MPV 8.2 fL (7.6-11.3); Platelets 180 thou/uL (152-406)
[2022-09-27 03:22] LABS: C-Reactive Protein 40.6 mg/L (<3.00); Potassium 4.9 mEq/L (3.5-5.1)
[2022-09-27] MEDS: LEVOTHYROXINE SOD 0.125 MG TAB PO SCH (06:02)
--- NOTE | 2022-09-27 07:12 | P.PN ---
Date of Service: 09/27/22 Subjective: Doing okay no new / worsening problems afebrile ROS: 10 point ROS as noted above, otherwise negative Physical Exam: GEN: Alert, orientedx3, Confused HEENT: Normal conjunctiva, sclera anicteric CV: Regular rate and rhythm, no edema Pulm: Nonlabored respirations on room air ABD: Soft, nontender, nondistended Integumentary: sacral ulcer; L foot wounds, erythema around base of 3rd toe Neuro: Dementia, Right-sided paraplegia vitals reviewed Problem List: Metabolic encephalopathy likely secondary to UTI Sacral ulcer, stage 4 left great toe amputation stump wound 3rd toe ulceration/wound h/o of MDR UTI/wound infections ESRD on HD TTS Atrial fibrillation on chronic anticoagulation IDDM2 with hyperglycemia History of CVA with right-sided weakness Hypertension Hypothyroidism Pacemaker in place Metabolic encephalopathy likely secondary to UTI h/o of MDR UTI/wound infections CT head (09/24): No evidence of an acute intracranial process UA: +LE, RBC >50, WBC >50, +Bacteria, +Yeast Urine cx: 2+ yeast not becky Blood cx (09/24): +GPC growing in 2/4 bottles Repeat blood cx (09/27): pending ID consulted continue empiric merrem / vanc (09/24-) continue Bactrim (09/25-) staph bacteremia; patient was on vanc; f/u cultures; r/o vanc-resistant MRSA Sacral ulcer, left great toe amputation stump wound Osteomyelitis of L foot Xray Foot (09/24): Findings highly suspicious or sequela from advanced osteomyelitis of the distal first metatarsal. Lucency in the overlying soft tissues which may be secondary to infection or postsurgical Wound cx ordered ID following continue empiric merrem / vanc (09/24-) x6 weeks per ID General surgery consulted for L foot wounds / osteomyelitis santyl/dry gauze foot and sacrum ulcer. f/u at wound healing center next friday poor perfusion, recent arterial dopplers with monophasic flow given multiple MDR bacteria, recurrent infection / admissions, may benefit more from amputation will discuss with surgery 09/27 - Briefly Discussed with family that patient may benefit from amputation given recurrent infections and would also likely benefit from LTAC will discuss further with General surgeon for further input / recommendations ESRD on HD TTS Nephrology consulted Atrial fibrillation on chronic anticoagulation. continue Amiodarone, metoprolol, Eliquis IDDM2 with hyperglycemia. ACHS Accu-Chek, SSI History of CVA with right-sided weakness. Continue home eliquis, plavix Hypertension. Continue home medications Hypothyroidism. Continue Levothyroxine Pacemaker in place. Noted, will not be able to receive MRI. VTE: Home eliquis Code: Full Dispo: may benefit from LTAC 09/27 - Updated Isa over the phone
[2022-09-27] MEDS: INSULIN -REGULAR HUMAN 50 UNIT/0.5 ML ML SQ SCH ×4 (07:30→20:13)
[2022-09-27] MEDS: CLOPIDOGREL 75 MG TABLET PO SCH (08:49)
[2022-09-27] MEDS: APIXABAN 2.5 MG TABLET PO SCH ×2 (08:49→20:12)
[2022-09-27] MEDS: SMZ./TMP. 800/160 MG TABLET PO SCH ×2 (08:49→20:12)
[2022-09-27] MEDS: AMIODARONE HCL 200 MG TAB PO SCH ×2 (08:50→20:12)
[2022-09-27] MEDS: AMINO ACIDS/PROTEIN HYDROLYS 30 ML LIQUID.PKT PO SCH ×2 (08:50→20:11)
[2022-09-27] MEDS: METOPROLOL XL 25 MG TAB PO SCH (08:50)
[2022-09-27] MEDS: COLLAGENASE 30 GM OINTMENT TOP SCH (08:50)
--- NOTE | 2022-09-27 08:52 | P.PN ---
Date of Service: 09/27/22 Chief Complaint: UTI, AMS Subjective: Patient is conversational today, in good spirits. at bedside. + epistaxis + sacrum/buttock pain No acute events reported overnight. Physical Examination Temp Pulse Resp BP Pulse Ox 97.4 F 50 16 116/56 L 100 09/27/22 08:00 09/27/22 08:00 09/27/22 08:00 09/27/22 08:00 09/27/22 08:00 General: In no apparent distress, Oriented x2-3 Neck: Supple, JVD not distended Respiratory: Normal air movement. Diminished at bases. On 2L nasal cannula. Cardiovascular: Trace BLE edema, Weak DP and PT pulses bilaterally Gastrointestinal: Normal bowel sounds, Soft and benign Musculoskeletal: No clubbing. Hx amputation left first toe Integumentary: Pressure ulcer of sacrum stage 4. Arterial ulcer of left 3rd toe. Laboratory Data - Reviewed Microbiology Data - Reviewed Imagings Data: - Reviewed Medications List: Reviewed Conclusions/Impression: Problem List ESRD on HD Diabetes Mellitus Type II Hypertension Hypothyroidism Atrial Fibrillation PAD Hx CVA with right sided weakness Pacemaker hx left first toe amputation Chronic Sacral Pressure Injury stage 4 Severe PCM Left Third Toe Pressure vs Arterial Ulcer Osteomyelitis - XR Left Foot 09/24: " 1. Findings highly suspicious or sequela from advanced o steomyelitis of the distal first metatarsal. Lucency in the overlying soft tissues which may be secondary to infection or postsurgical. 2. Patient is status post amputation of the first toe. " - hx of osteomyelitis and gangrene s/p amputation of left first toe - General surgery consulted Urinary Tract Infection, Recurrent History of Multi-Drug Resistant Infections - Urinalysis 09/24: LE 500, RBC >50, WBC >50, Many WBC clumps, Bacteria 20-50, Many yeast - Urine culture 09/25: 2+ yeast not becky - Wound culture sacrum 09/25: pending - Due to history of MDR infection and recent antibiotic use and hospitalizations, patient was started on Meropenem and Vancomycin 09/25 - 09/06 sacral wound culture: Proteus mirabilis - 09/06 left toe wound culture: Acinetobacter dalton/haem , Klebsiella Pneumoniae ESBL , and Methicillin-Resistant Staphylococcus aureus Blood cultures 09/24: gram positive cocci in clusters in 2 of 4 bottles. Afebrile. No leukocytosis. Recommendations Medical management of osteomyelitis: patient will require 6 weeks of IV antibiotics. - Continue Meropenem and Vancomycin for now. - Consider addition of Ceftazidime to cover recent wound culture growing acinetobacter on 09/06. - Will follow up final with blood, wound and urine culture results and adjust antibiotics as needed. - Strict blood glucose control - Pressure offloading measures. Wedge pillow. Low air loss mattress. Turn patient Q2H. - Renally dose medications. Nephrology on case. - Left 3rd toe ulcer: apply toe spacers or use telfa nonstick pad between toes to relieve pressure on left third toe wound Patient would benefit from LTAC placement for user experience developer IV antibiotics and wound care. She is at high risk of reinfection and complications considering multiple comorbidities and multi-drug resistant organisms. Case discussed with Boogie Eaton
--- NOTE | 2022-09-27 14:45 | P.PN ---
Subjective Date of Service: 09/27/22 Chief Complaint: UTI, AMS Subjective: No new changes Physical Examination - Vital Signs Temperature: 97.0 F Blood Pressure: 132/51 Pulse: 50 Respirations: 16 Pulse Ox (%): 100 - Physical Exam General: Other (chronically ill-appearing) HEENT: Atraumatic, Normocephalic Neck: Supple Respiratory: Other (symmetric chest expansion) Cardiovascular: No rubs, No murmurs Gastrointestinal: Soft and benign, No rebound Musculoskeletal: No clubbing Integumentary: No warmth Neurological: Normal tone Urinary: Other (no bladder distention) External genitalia: Deferred Rectal: Deferred Assessment And Plan - Plan 1. End-stage renal disease on outpt HD TTS. HD tomorrow. 2. Hypertension. Continue current medication regimen. 3. Hyponatremia secondary to renal failure. Will be corrected with dialysis. 4. Foot infection, multidrug resistant. Abx per ID service. 5. Altered mental status, medication induced. Improved. Monitor.
[2022-09-27] MEDS: Meropenem 500 MG in NA CHLORIDE 0.9% 100 ML IV SCH (17:10)
[2022-09-27] MEDS: ATORVASTATIN 80 MG TAB PO SCH (20:13)
[2022-09-28] MEDS: LEVOTHYROXINE SOD 0.125 MG TAB PO SCH (06:05)
[2022-09-28 06:18] LABS: Absolute Lymphocytes (CBC) 1.6 K/uL (0.7-4.9); Hematocrit 29.6 % (36.0-45.0); Lymphocytes % 18.1 % (15.3-44.8); MCV 98.3 fL (80-100); Platelets 199 thou/uL (152-406); RBC Red Blood Cell Count 3.01 M/uL (3.86-4.86)
[2022-09-28 06:57] LABS: Magnesium 2.1 mg/dL (1.6-2.4); Potassium 5.5 mEq/L (3.5-5.1)
--- NOTE | 2022-09-28 07:08 | P.PN ---
Date of Service: 09/28/22 Subjective: anxious / nervous about situation with possibility of amputation L foot pain and redness improving no new / worsening problems afebrile ROS: 10 point ROS as noted above, otherwise negative Physical Exam: GEN: Alert, orientedx3, Castro in place HEENT: Normal conjunctiva, sclera anicteric CV: Regular rate and rhythm, no edema Pulm: Nonlabored respirations on room air ABD: Soft, nontender, nondistended Integumentary: sacral ulcer; L 1st toe amputation site, L foot wounds, minimal erythema around base of 3rd toe with ulceration medial aspect, no purulent drainage Neuro: Dementia, Right-sided paraplegia Castro in place vitals reviewed Problem List: Metabolic encephalopathy likely secondary to UTI Sacral ulcer, stage 4 left great toe amputation stump wound Osteomyelitis of L foot h/o of MDR UTI/wound infections ESRD on HD TTS Atrial fibrillation on chronic anticoagulation IDDM2 with hyperglycemia History of CVA with right-sided weakness Hypertension Hypothyroidism Pacemaker in place Metabolic encephalopathy likely secondary to UTI h/o of MDR UTI/wound infections CT head (09/24): No evidence of an acute intracranial process UA: +LE, RBC >50, WBC >50, +Bacteria, +Yeast Urine cx: 2+ yeast not becky Blood cx (09/24): +GPC growing in 2/4 bottles Repeat blood cx (09/27): NGTD ID consulted continue empiric merrem / vanc (09/24-) continue Bactrim (09/25-) staph bacteremia; patient was on vanc; f/u cultures; r/o vanc-resistant MRSA Sacral ulcer, left great toe amputation stump wound Osteomyelitis of L foot Xray Foot (09/24): Findings highly suspicious or sequela from advanced osteomyelitis of the distal first metatarsal. Lucency in the overlying soft tissues which may be secondary to infection or postsurgical Wound cx ordered ID following continue empiric merrem / vanc (09/24-) x6 weeks per ID General surgery consulted for L foot wounds / osteomyelitis santyl/dry gauze foot and sacrum ulcer. f/u at wound healing center next Friday Dr. Blackman consulted 09/[address] Carson is out of town poor perfusion, recent arterial dopplers with monophasic flow given multiple MDR bacteria, recurrent infection / admissions, may benefit more from amputation and also from LTAC Discussed with Dr. Blackman - does not feel amputation / surgical intervention is warranted at this time 09/28- L foot pain and redness improving ESRD on HD TTS Nephrology consulted Atrial fibrillation on chronic anticoagulation. continue Amiodarone, metoprolol, Eliquis IDDM2 with hyperglycemia. ACHS Accu-Chek, SSI History of CVA with right-sided weakness. Continue home eliquis, plavix Hypertension. Continue home medications Hypothyroidism. Continue Levothyroxine Pacemaker in place. Noted, will not be able to receive MRI. VTE: Home eliquis Code: Full Dispo: may benefit from LTAC 09/27 - Updated Isa over the phone
[2022-09-28] MEDS: INSULIN -REGULAR HUMAN 50 UNIT/0.5 ML ML SQ SCH ×4 (07:30→20:27)
[2022-09-28] MEDS: COLLAGENASE 30 GM OINTMENT TOP SCH (09:00)
[2022-09-28] MEDS: AMIODARONE HCL 200 MG TAB PO SCH ×2 (09:00→20:29)
[2022-09-28] MEDS: METOPROLOL XL 25 MG TAB PO SCH (09:00)
[2022-09-28] MEDS: AMINO ACIDS/PROTEIN HYDROLYS 30 ML LIQUID.PKT PO SCH ×2 (09:00→20:26)
--- NOTE | 2022-09-28 12:24 | CON ---
Date of Consultation: 09/27/2022 Reason For Consultation: To evaluate the patient's wound on her foot and sacrum. History Of Present Illness: The patient is an 82-year-old female with end-stage renal disease, who w as admitted with UTI and altered mental status. She previously had an amputation done on the left fi rst toe that was done I believe 2 months ago, which was healing up okay. She also had a sacral decub itus. Dr. Carson was following this patient and I am covering for Dr. Carson. I was asked to ev aluate to see what would be the best continued management for this patient. She is awake and alert. Complaining more of her sacral wound than her foot wound. She did have an arterial Doppler on the l eft leg, which showed significant disease, which has not drained, evaluated by interventionalist. Jak dumont is bacteremic, however and she has been on IV antibiotics for 2 weeks. So, the source of the infec tion is unclear at this time, but based on by evaluation, I believe the sacrum may be the source at t his particular time. In the past, it may have been the foot or UTI, but looking at the wound on the sacrum, I believe that is most likely the culprit. The patient denies any sore throat, runny nose, c ough, headaches, dizziness, chest pain, fever or chills. Review of Systems: Otherwise unremarkable. Past Medical History: Significant for stroke, type 2 diabetes, hypertension, AFib, neuropathy, hypot hyroidism, history of osteomyelitis. Past Surgical History: Thyroid surgery, cataract surgery, hysterectomy, pacemaker, and left great to e amputation. Allergies: NONE. Social History: The patient does not smoke or drink alcohol. Family History: Significant for hypertension and diabetes. Physical Examination: Vital Signs: Stable. General: She is awake, alert. Head and Neck: No masses. Chest: Clear. Heart: S1 and S2. Abdomen: Soft. Extremities: Diminished dorsalis pedis and posterior tibial. On the left great toe, there are some scabs present, but there is no surrounding erythema, warmth, or edema. There is no purulent discharg e. Left foot is without any erythema, warmth, or edema. The sacrum, however, has a stage III at [address] sacral decubitus infected ulcer with some fibrin present, surrounding erythema and slight warmth. Neuro: Nonfocal. Laboratory Data: Shows a normal white count. There is no left shift. Platelets are 199. Chemistry reviewed. Potassium is 5.5. BUN and creatinine are elevated at 63 and 6.95. Micro reviewed on prev ious visit. The patient had multiple bacteria on the left great toe, but outside wound was cultured. The patient had no clinical evidence of infection at that time, so I feel these are colonization an d not necessarily infected tissue and that was sensitive for Acinetobacter, Klebsiella, and MRSA. Th e sacral wound had Proteus mirabilis present in it on the last visit. Assessment: An 82-year-old female with multiple medical problems with infected sacral decubitus, his tory of osteomyelitis on the left foot, and history of urinary tract infection as well. Recommendation: Would be to continue the antibiotics, the sacral wound may need debridement. There is no need for any amputation of the left lower extremity. Once the infection is under control, the patient will probably need IR to evaluate and treat the peripheral vascular disease the patient has a nd allow that to start salvage the limb if possible. The patient was walking prior to her recent fal l, so the goal would be to try to get her at baseline. She may need aggressive physical therapy at t hat point. As she has had 2 weeks of IV antibiotics, she may need probably 4 more weeks and LTAC wou ld be appropriate. Plan of care was discussed in detail with Dr. Mack and I will discuss it further with Dr. Carson on Friday. MAR/LAYLA Voice ID: [id number] Report ID: [id number]
[2022-09-28] MEDS: CLOPIDOGREL 75 MG TABLET PO SCH (14:16)
[2022-09-28] MEDS: SMZ./TMP. 800/160 MG TABLET PO SCH ×2 (14:16→20:26)
[2022-09-28] MEDS: APIXABAN 2.5 MG TABLET PO SCH ×2 (14:18→20:26)
[2022-09-28] MEDS: ONDANSETRON 4 MG/2 ML VIAL IV PRN ×2 (14:32→20:27)
[2022-09-28] MEDS ORDERED: VANCOMYCIN 1 GM in NA CHLORIDE 0.9% 250 ML IVPB SCH (18:00)
[2022-09-28 18:36] LABS: Hepatitis B surface AG Interp. Nonreactive (Nonreactive)
[2022-09-28 18:37] LABS: Hepatitis B Surface Ab - Quant < 3.10 mIU/mL (<8.0)
--- NOTE | 2022-09-28 19:27 | PN ---
Date of Progress Note: 09/28/2022 Chief Complaint: End-stage renal disease on hemodialysis, foot infection, multidrug-resistant cellul itis, and osteomyelitis. Review of Systems: Denies chest pain, palpitation. Physical Examination: Lungs: Diminished breath sounds at bases. Few rhonchi. Heart: S1, S2. Abdomen: Soft, obese, nontender. No rebound. No guarding. Extremities: Dressing in place. Edema in both legs. Impression And Plan: 1.End-stage renal disease, on hemodialysis. The patient will have dialysis today and monitor potass ium level. The patient was found to have hyponatremia secondary to volume overload. Continue dialys is with ultrafiltration to correct hypervolemia and provide management for electrolyte abnormalities. 2.Hyperkalemia. Potassium is 5.5. There is no significant metabolic acidosis. Continue low-sodium diet and dialysis with 2 potassium dialysate. 3.Hypertension, on blood pressure medication. Monitor blood pressure closely during dialysis to pre vent intradialytic hypotension. 4.Altered mental status, encephalopathy likely induced by medication. Avoid pain medication if poss ible. Adjust pain medication and pain management. 5.Foot infection, multidrug-resistant infection. The patient has been followed by ID service. WILLIAM/LAYLA Voice ID: [id number] Report ID: [id number]
[2022-09-28] MEDS: Meropenem 500 MG in NA CHLORIDE 0.9% 100 ML IV SCH (20:25)
[2022-09-28] MEDS: ATORVASTATIN 80 MG TAB PO SCH (20:26)
[2022-09-29 03:33] LABS: Phosphorus 4.8 mg/dL (2.5-4.9); Potassium 4.4 mEq/L (3.5-5.1)
[2022-09-29] MEDS: LEVOTHYROXINE SOD 0.125 MG TAB PO SCH (06:02)
[2022-09-29] MEDS: INSULIN -REGULAR HUMAN 50 UNIT/0.5 ML ML SQ SCH ×4 (07:30→20:48)
--- NOTE | 2022-09-29 07:34 | P.PN ---
Date of Service: 09/29/22 Subjective: Left foot pain worse today - pain located more near toes rather than heel otherwise no new / worsening problems afebrile ROS: 10 point ROS as noted above, otherwise negative Physical Exam: GEN: Alert, orientedx3, Castro in place HEENT: Normal conjunctiva, sclera anicteric CV: Regular rate and rhythm, no edema Pulm: Nonlabored respirations on room air ABD: Soft, nontender, nondistended Integumentary: sacral ulcer; L 1st toe amputation site, L foot wounds, minimal erythema around base of 3rd toe with ulceration medial aspect, no purulent drainage Neuro: Dementia, Right-sided paraplegia Castro in place vitals reviewed Problem List: Metabolic encephalopathy likely secondary to UTI Sacral ulcer, stage 4 left great toe amputation stump wound Osteomyelitis of L foot h/o of MDR UTI/wound infections ESRD on HD TTS Atrial fibrillation on chronic anticoagulation IDDM2 with hyperglycemia History of CVA with right-sided weakness Hypertension Hypothyroidism Pacemaker in place Metabolic encephalopathy likely secondary to UTI h/o of MDR UTI/wound infections CT head (09/24): No evidence of an acute intracranial process UA: +LE, RBC >50, WBC >50, +Bacteria, +Yeast Urine cx: 2+ yeast not becky Blood cx (09/24): +GPC growing in 2/4 bottles Repeat blood cx (09/27): NGTD ID consulted continue empiric merrem / vanc (09/24-) continue Bactrim (09/25-) staph bacteremia; patient was on vanc; f/u cultures; r/o vanc-resistant MRSA Sacral ulcer, left great toe amputation stump wound Osteomyelitis of L foot Xray Foot (09/24): Findings highly suspicious or sequela from advanced osteomyelitis of the distal first metatarsal. Lucency in the overlying soft tissues which may be secondary to infection or postsurgical Wound cx ordered ID following continue empiric merrem / vanc (09/24-) x6 weeks per ID General surgery consulted santyl/dry gauze foot and sacrum ulcer. f/u at wound healing center next Friday NPO at midnight in case I&D is needed on sacral ulcer tomorrow with Dr. Alli Blackman consulted 09/[address] Carson is out of town poor perfusion, recent arterial dopplers with monophasic flow given multiple MDR bacteria, recurrent infection / admissions, may benefit more from amputation and also from LTAC Discussed with Dr. Blackman - does not feel amputation / surgical intervention is warranted at this time 09/28- L foot pain and redness improving ESRD on HD TTS Nephrology consulted Atrial fibrillation on chronic anticoagulation. continue Amiodarone, metoprolol, Eliquis IDDM2 with hyperglycemia. ACHS Accu-Chek, SSI History of CVA with right-sided weakness. Continue home eliquis, plavix Hypertension. Continue home medications Hypothyroidism. Continue Levothyroxine Pacemaker in place. Noted, will not be able to receive MRI. VTE: Home eliquis Code: Full Dispo: may benefit from LTAC 09/27 - Updated Isa over the phone
[2022-09-29] MEDS: SMZ./TMP. 800/160 MG TABLET PO SCH ×2 (08:59→20:47)
[2022-09-29] MEDS: AMINO ACIDS/PROTEIN HYDROLYS 30 ML LIQUID.PKT PO SCH ×2 (09:00→20:48)
[2022-09-29] MEDS: METOPROLOL XL 25 MG TAB PO SCH (09:00)
[2022-09-29] MEDS: AMIODARONE HCL 200 MG TAB PO SCH ×2 (09:00→20:47)
[2022-09-29] MEDS: CLOPIDOGREL 75 MG TABLET PO SCH (09:00)
[2022-09-29] MEDS: APIXABAN 2.5 MG TABLET PO SCH ×2 (09:00→20:48)
[2022-09-29] MEDS: COLLAGENASE 30 GM OINTMENT TOP SCH (16:32)
[2022-09-29] MEDS: Meropenem 500 MG in NA CHLORIDE 0.9% 100 ML IV SCH (17:32)
--- NOTE | 2022-09-29 19:51 | PN ---
Date of Progress Note: 09/29/2022 Chief Complaint: End-stage renal disease, on hemodialysis; foot infection; multidrug resistant osteo myelitis; and cellulitis. Review of Systems: Patient denies chest pain, palpitation. Pain is controlled. Physical Examination: Lungs: Diminished breath sounds at bases. Few rhonchi. Heart: S1, S2. Abdomen: Soft, nontender, obese. No rebound, no guarding. Extremities: Dressing in place. Edema in both legs, mild. Impression And Plan: 1.End-stage renal disease, on hemodialysis. Patient will have dialysis on Friday. The patient rec eived dialysis yesterday. Potassium level is improving. The patient was found to have hyponatremia secondary to fluid overload. Continue dialysis with ultrafiltration to correct hypervolemia and prov nuno management for electrolyte abnormalities. 2.Hyperkalemia. Potassium 5.5, predialysis. Patient received dialysis with 2 potassium dialysate. Potassium level improved to normal range. Continue low sodium and low potassium diet. 3.Hypertension, on blood pressure medication. Continue current treatment. 4.Altered mental status, encephalopathy secondary to medication effect per primary team. Mental sta tus has improved. 5.Foot infection, multidrug resistant infection. The patient has been followed by Infectious Diseas e Service. WILLIAM/MODL Voice ID: [id number] Report ID: [id number]
[2022-09-29] MEDS: ATORVASTATIN 80 MG TAB PO SCH (20:48)
[2022-09-30 02:55] LABS: Absolute Lymphocytes (CBC) 1.3 K/uL (0.7-4.9); Hematocrit 27.5 % (36.0-45.0); Lymphocytes % 20.3 % (15.3-44.8); MCV 97.5 fL (80-100); MPV 7.8 fL (7.6-11.3); Platelets 157 thou/uL (152-406); RBC Red Blood Cell Count 2.83 M/uL (3.86-4.86)
[2022-09-30 03:09] LABS: Potassium 4.7 mEq/L (3.5-5.1)
[2022-09-30] MEDS: LEVOTHYROXINE SOD 0.125 MG TAB PO SCH (05:44)
--- NOTE | 2022-09-30 07:24 | P.PN ---
Date of Service: 09/30/22 Subjective: Doing okay today no new / worsening problems afebrile ROS: 10 point ROS as noted above, otherwise negative Physical Exam: GEN: Alert, orientedx3, Castro in place HEENT: Normal conjunctiva, sclera anicteric CV: Regular rate and rhythm, no edema Pulm: Nonlabored respirations on room air ABD: Soft, nontender, nondistended Integumentary: sacral ulcer; L 1st toe amputation site, L foot wounds, minimal erythema around base of 3rd toe with ulceration medial aspect, no purulent drainage Neuro: Dementia, Right-sided paraplegia Castro in place vitals reviewed Problem List: Metabolic encephalopathy likely secondary to UTI MDR Staph Epidermidis Bacteremia Sacral ulcer, stage 4 left great toe amputation stump wound Osteomyelitis of L foot h/o of MDR UTI/wound infections ESRD on HD TTS Atrial fibrillation on chronic anticoagulation IDDM2 with hyperglycemia History of CVA with right-sided weakness Hypertension Hypothyroidism Pacemaker in place Metabolic encephalopathy likely secondary to UTI MDR Staph Epidermidis Bacteremia h/o of MDR UTI/wound infections CT head (09/24): No evidence of an acute intracranial process Urine cx: 2+ yeast not becky Blood cx (09/24): MDR Staph Epidermidis Repeat blood cx (09/27): NGTD ID consulted continue merrem / vanc (09/24-) continue Bactrim (09/25-) staph bacteremia; patient was on vanc; f/u cultures; r/o vanc-resistant MRSA Sacral ulcer, left great toe amputation stump wound Osteomyelitis of L foot Xray Foot (09/24): Findings highly suspicious or sequela from advanced osteomyelitis of the distal first metatarsal. Lucency in the overlying soft tissues which may be secondary to infection or postsurgical ID following continue empiric merrem / vanc (09/24-) x6 weeks per ID General surgery consulted santyl/dry gauze foot and sacrum ulcer. f/u at wound healing center next Friday Dr. Blackman consulted 09/[address] Carson is out of town poor perfusion, recent arterial dopplers with monophasic flow given multiple MDR bacteria, recurrent infection / admissions, may benefit more from amputation and also from LTAC Discussed with Dr. Blackman - does not feel amputation / surgical intervention is warranted at this time 09/28- L foot pain and redness improving ESRD on HD TTS Nephrology consulted Atrial fibrillation on chronic anticoagulation. continue Amiodarone, metoprolol, Eliquis IDDM2 with hyperglycemia. ACHS Accu-Chek, SSI History of CVA with right-sided weakness. Continue home eliquis, plavix Hypertension. Continue home medications Hypothyroidism. Continue Levothyroxine Pacemaker in place. Noted, will not be able to receive MRI. VTE: Home eliquis Code: Full Dispo: LTAC - [facility] - pending approval 09/27 - Updated Isa over the phone
[2022-09-30] MEDS: INSULIN -REGULAR HUMAN 50 UNIT/0.5 ML ML SQ SCH ×4 (07:30→21:00)
[2022-09-30] MEDS: SMZ./TMP. 800/160 MG TABLET PO SCH ×2 (08:54→22:04)
[2022-09-30] MEDS: APIXABAN 2.5 MG TABLET PO SCH ×2 (08:55→22:04)
[2022-09-30] MEDS: CLOPIDOGREL 75 MG TABLET PO SCH (08:55)
[2022-09-30] MEDS: AMIODARONE HCL 200 MG TAB PO SCH ×2 (09:00→21:00)
[2022-09-30] MEDS: METOPROLOL XL 25 MG TAB PO SCH (09:00)
[2022-09-30] MEDS: AMINO ACIDS/PROTEIN HYDROLYS 30 ML LIQUID.PKT PO SCH ×2 (09:10→21:00)
[2022-09-30] MEDS: COLLAGENASE 30 GM OINTMENT TOP SCH (09:10)
[2022-09-30] MEDS: ONDANSETRON 4 MG/2 ML VIAL IV PRN ×2 (12:52→22:06)
--- NOTE | 2022-09-30 16:01 | P.PN ---
Date of Service: 09/30/22 Chief Complaint: UTI, AMS Subjective: Patient seen and examined at bedside. Reports sacral pain and left foot pain. + intermittent nausea. Denies any SOB, cough or chest pain. at bedside. Physical Examination Temp Pulse Resp BP Pulse Ox 98.5 F 53 16 159/69 H 96 09/30/22 12:00 09/30/22 12:00 09/30/22 12:00 09/30/22 12:00 09/30/22 12:00 General: In no apparent distress, Oriented x3 Neck: Supple, JVD not distended Respiratory: Normal air movement. Diminished at bases. Breathing comfortably on room air. Cardiovascular: Trace BLE edema, Weak DP and PT pulses bilaterally Gastrointestinal: Normal bowel sounds, Soft and benign Musculoskeletal: No clubbing. Hx amputation left first toe Integumentary: Pressure ulcer of sacrum stage 4. Arterial ulcer of left 3rd toe. Laboratory Data - Reviewed Microbiology Data - Reviewed Imagings Data: - Reviewed Medications List: Reviewed Assessment and Plan Problem List ESRD on HD Diabetes Mellitus Type II Hypertension Hypothyroidism Atrial Fibrillation PAD Hx CVA with right sided weakness Pacemaker hx left first toe amputation Chronic Sacral Pressure Injury stage 4 Severe PCM Left Third Toe Pressure vs Arterial Ulcer Osteomyelitis - XR Left Foot 09/24: " 1. Findings highly suspicious or sequela from advanced osteomyelitis of the distal first metatarsal. Lucency in the overlying soft tissues which may be secondary to infection or postsurgical. 2. Patient is status post amputation of the first toe. " - hx of osteomyelitis and gangrene s/p amputation of left first toe - Continue current wound care. Urinary Tract Infection, Recurrent History of Multi-Drug Resistant Infections - Urinalysis 09/24: LE 500, RBC >50, WBC >50, Many WBC clumps, Bacteria 20-50, Many yeast - Urine culture 09/25: 2+ yeast not becky - Wound culture sacrum 09/25: pending - Due to history of MDR infection and recent antibiotic use and hospitalizations, patient was started on Meropenem and Vancomycin 09/25 - 09/06 sacral wound culture: Proteus mirabilis - 09/06 left toe wound culture: Acinetobacter dalton/haem , Klebsiella Pneumoniae ESBL , and Methicillin-Resistant Staphylococcus aureus - On Meropenem and Vancomycin Blood cultures 09/24: Staph epidermis Afebrile. No leukocytosis. Recommendations Osteomyelitis: patient will require 6 weeks of IV antibiotics (09/26 to 11/07) - Continue Meropenem and Vancomycin. - Consider addition of Ceftazidime to cover recent wound culture growing acinetobacter on 09/06. - General surgery consulted. See note for further recommendations; patient may need debridement of sacral pressure ulcer. - ESRD: Renally dose medications. Nephrology on case. - Strict blood glucose control - Pressure offloading measures. Wedge pillow. Low air loss mattress. Turn patient Q2H. - Left 3rd toe ulcer: apply toe spacers or use telfa nonstick pad between toes to relieve pressure on left third toe wound Patient would benefit from LTAC placement for [facility] IV antibiotics and wound care. She is at high risk of reinfection and complications considering multiple comorbidities and multi-drug resistant organisms. Case discussed with Boogie Eaton
[2022-09-30] MEDS: Meropenem 500 MG in NA CHLORIDE 0.9% 100 ML IV SCH (17:25)
[2022-09-30] MEDS: ATORVASTATIN 80 MG TAB PO SCH (22:04)
--- NOTE | 2022-10-01 02:09 | PN ---
Date of Progress Note: 10/01/2022 Chief Complaint: End-stage renal disease, on hemodialysis, hyperkalemia. Patient responded to dialy sis. Patient is scheduled to have dialysis tomorrow. Today, electrolytes are stable. The patient h as history of fluid overload. She is on antibiotics for foot infection. She has multidrug resistant osteomyelitis and cellulitis on the leg. Review of Systems: Denies chest pain, palpitation. Physical Examination: Lung: Clear to auscultation bilaterally. Heart: S1-S2. Abdomen: Soft, benign. Extremities: Edema in both legs, overall improved. Impression And Plan: 1.End-stage renal disease. Patient will have dialysis tomorrow. Potassium level is improving. Con tinue potassium dialysate of 2. Continue dialysis with ultrafiltration to obtain negative fluid kailey nce and control hypervolemia. 2.Hyperkalemia. Potassium predialysis was 5.5. Continue 2 potassium dialysate. Potassium level im proved. Continue low-potassium diet. 3.Hypertension, on blood pressure medication. Continue current treatment. 4.Altered mental status encephalopathy secondary to medication effect. Continue management per prim colleen team. 5.Foot infection, multidrug resistant infection. Patient has been followed by Infectious Disease. WILLIAM/MODL Voice ID: [id number] Report ID: [id number]
[2022-10-01] MEDS: LEVOTHYROXINE SOD 0.125 MG TAB PO SCH (05:50)
[2022-10-01] MEDS: INSULIN -REGULAR HUMAN 50 UNIT/0.5 ML ML SQ SCH ×4 (07:30→21:17)
[2022-10-01] MEDS: SMZ./TMP. 800/160 MG TABLET PO SCH (08:21)
[2022-10-01] MEDS: APIXABAN 2.5 MG TABLET PO SCH ×2 (08:21→21:17)
[2022-10-01] MEDS: CLOPIDOGREL 75 MG TABLET PO SCH (08:21)
[2022-10-01] MEDS: COLLAGENASE 30 GM OINTMENT TOP SCH (08:22)
[2022-10-01] MEDS: AMINO ACIDS/PROTEIN HYDROLYS 30 ML LIQUID.PKT PO SCH ×2 (08:29→21:00)
[2022-10-01] MEDS: METOPROLOL XL 25 MG TAB PO SCH (08:31)
[2022-10-01] MEDS: AMIODARONE HCL 200 MG TAB PO SCH ×2 (08:31→21:16)
--- NOTE | 2022-10-01 08:56 | P.PN ---
Date of Service: 10/01/22 Chief Complaint: UTI, AMS Subjective: Denies any new or worsening complaints. Breathing comfortably on room air. No acute events reported overnight. Pending LTAC approval. Physical Examination Temp Pulse Resp BP Pulse Ox 98.6 F 54 16 137/62 99 10/01/22 08:00 10/01/22 08:31 10/01/22 08:00 10/01/22 08:31 10/01/22 08:00 General: In no apparent distress, Oriented x3 Neck: Supple, JVD not distended Respiratory: Normal air movement. Nonlabored respirations. On room air. Cardiovascular: Trace BLE edema, Weak DP and PT pulses bilaterally Gastrointestinal: Normal bowel sounds, Soft and benign Musculoskeletal: No clubbing. Hx amputation left first toe Integumentary: Pressure ulcer of sacrum stage 4. Arterial ulcer of left 3rd toe. Laboratory Data - Reviewed Microbiology Data - Reviewed Imagings Data: - Reviewed Medications List: Reviewed Assessment and Plan Problem List ESRD on HD Diabetes Mellitus Type II Hypertension Hypothyroidism Atrial Fibrillation PAD Hx CVA with right sided weakness Pacemaker hx left first toe amputation Chronic Sacral Pressure Injury stage 4 Severe PCM Left Third Toe Pressure vs Arterial Ulcer Osteomyelitis - XR Left Foot 09/24: " 1. Findings highly suspicious or sequela from advanced osteomyelitis of the distal first metatarsal. Lucency in the overlying soft tissues which may be secondary to infection or postsurgical. 2. Patient is status post amputation of the first toe. " - hx of osteomyelitis and gangrene s/p amputation of left first toe - Continue current wound care. Urinary Tract Infection, Recurrent History of Multi-Drug Resistant Infections - Urinalysis 09/24: LE 500, RBC >50, WBC >50, Many WBC clumps, Bacteria 20-50, Many yeast - Urine culture 09/25: 2+ yeast not becky - Wound culture sacrum 09/25: pending - Due to history of MDR infection and recent antibiotic use and hospitalizations, patient was started on Meropenem and Vancomycin 09/25 - 09/06 sacral wound culture: Proteus mirabilis - 09/06 left toe wound culture: Acinetobacter dalton/haem , Klebsiella Pneumoniae ESBL , and Methicillin-Resistant Staphylococcus aureus - On Meropenem and Vancomycin Blood cultures 09/24: Staph epidermis Afebrile. No leukocytosis. Recommendations Osteomyelitis: Continue 6 weeks of IV antibiotics (09/26 to 11/07). Continue Meropenem and Vancomycin. - General surgery consulted to reevaluate left foot amputation site osteomyelitis. - ESRD: Renally dose medications. Nephrology on case. - Strict blood glucose control - Pressure offloading measures. Wedge pillow. Low air loss mattress. Turn patient Q2H. - Left 3rd toe ulcer: apply toe spacers or use telfa nonstick pad between toes to relieve pressure on left third toe wound Patient would benefit from LTAC placement for [facility] IV antibiotics and wound care. She has multiple comorbidities and multi-drug resistant infections. Case discussed with Boogie Eaton
--- NOTE | 2022-10-01 13:39 | RAD REPORT ---
EXAM DESCRIPTION: RAD - Finger-Thumb Right - 10/01/2022 1:27 pm CLINICAL HISTORY: Right pointer finger swollen COMPARISON: No comparisons FINDINGS: Diffuse osteopenia. The degree of osteopenia is quite prominent which limits bone detail. There is potentially a fracture present involving the middle phalanx base second finger, however it i s difficult to fully ascertained due to contracted status of the digit.
--- NOTE | 2022-10-01 16:02 | P.DS ---
Admission Date: 09/24/22 Discharge Date: 10/02/22 Disposition: ALF ACUTE CARE FACILITY Discharge Condition: FAIR Reason for Admission: UTI, AMS Brief History of Present Illness: 82-year-old female with history of ESRD on HD TTS, previous CVA with right-sided weakness, insulin-dependent diabetes, hypertension, atrial fibrillation on chronic anticoagulation, hypothyroidism, pacemaker placement presents the emergency department with chief complaint of altered mental status. Her daughter in law/MPOA is at bedside reports that ever since she was seen in the emergency department on the weekend 09/21/2022 she has been declining with worsening mental status, lethargy also noted some twitching primarily affecting her left side. They report she is not acting herself at all, she was also hospitalized 09/05/2022 and subsequently discharged on 09/11/2022 with UTI, wounds, she had MDR bacteria present in her wounds and urine at that time she was treated with IM Invanz as well as vancomycin during dialysis at the [facility]. She was evaluated today in the emergency department her labs were significant for white blood cell count 10.6 hemoglobin 10.5 medic at 33.1 sodium 134 creatinine 3.65 GFR 12 glucose 203 CRP, Pro-Cj, lactate pending urinalysis extremely turbid with leuk esterase, white blood cell, bacteria. Previous urine culture reviewed was positive for Proteus Mirabilis, her wound cultures were positive for Acetobacter dalton/haem, Klebsiella pneumoniae ESBL, MRSA. She was seen by infectious disease, wound healing during her previous hospitalization, she will need to be admitted for UTI, AMS. 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 continue merrem / vanc (09/24-) continue Bactrim (09/25-) staph epidermidis bacteremia. Patient slated for 6 weeks of IV antibiotics. Sacral ulcer, left great toe amputation stump wound Osteomyelitis of L foot Xray Foot (09/24): Findings highly suspicious or sequela from advanced osteomyelitis of the distal first metatarsal. Lucency in the overlying soft tissues which may be secondary to infection or postsurgical ID saw and evaluated patient. Patient treated with merrem / vanc. She needs to complete 6 weeks of IV antibiotics. Clinically stable for transfer to LTAC. General surgery consulted santyl/dry gauze foot and sacrum ulcer. Arterial Doppler showed poor perfusion, recent arterial dopplers with monophasic flow. Discussed with Dr. Blackman - does not feel amputation / surgical intervention is warranted at this time 09/28- L foot pain and redness improving. Patient slated for IV antibiotics, wound care and hemodialysis at LTAC. ESRD on HD TTS Patient is undergoing routine hemodialysis Nephrology is following Atrial fibrillation on chronic anticoagulation. continue Amiodarone, metoprolol, Eliquis IDDM2 with hyperglycemia. ACHS Accu-Chek, SSI History of CVA with right-sided weakness. Continue home eliquis, plavix Hypertension. Continue home medications Hypothyroidism. Continue Levothyroxine Vital Signs/Physical Exam: Temp Pulse Resp BP Pulse Ox 97.3 F 54 16 146/87 H 97 10/01/22 12:00 10/01/22 12:00 10/01/22 12:00 10/01/22 12:00 10/01/22 12:00 General: Alert, In no apparent distress HEENT: PERRLA Neck: Supple, JVD not distended Respiratory: Clear to auscultation bilaterally, Normal air movement Cardiovascular: Regular rate/rhythm Gastrointestinal: Soft and benign Laboratory Data at Discharge: WBC 6.50 thou/uL (4.3-10.9) 09/30/22 02:40 Hgb 8.9 g/dL (12.0-15.0) L 09/30/22 02:40 Hct 27.5 % (36.0-45.0) L 09/30/22 02:40 Plt Count 157 thou/uL (152-406) 09/30/22 02:40 Sodium 135 mEq/L (136-145) L 09/30/22 02:40 Potassium 4.7 mEq/L (3.5-5.1) 09/30/22 02:40 BUN 49 mg/dL (7-18) H 09/30/22 02:40 Creatinine 5.56 mg/dL (0.55-1.02) H 09/30/22 02:40 Glucose 120 mg/dL (74-106) H 09/30/22 02:40 Phosphorus 4.8 mg/dL (2.5-4.9) 09/29/22 02:33 Magnesium 2.1 mg/dL (1.6-2.4) 09/28/22 06:02 Total Bilirubin 0.5 mg/dL (0.2-1.0) 09/24/22 19:25 AST 19 U/L (15-37) 09/24/22 19:25 ALT 18 U/L (13-56) 09/24/22 19:25 Alkaline Phosphatase 91 U/L (45-117) 09/24/22 19:25 Home Medications: Atorvastatin Calcium [Lipitor] 1 tab PO BEDTIME 05/08/17 Duloxetine [Cymbalta *] 1 cap PO DAILY 05/08/17 Acetaminophen with Codeine [Acetaminophen-Cod #3 Tablet] 1 tab PO Q6HP PRN 03/19/22 Amiodarone HCl [Pacerone] 200 mg PO Q12HR 06/22/22 Ascorbic Acid 500 mg PO BID 06/22/22 Gabapentin 200 mg PO BEDTIME 06/22/22 Levothyroxine [Synthroid*] 125 mcg PO DINBG4DS 06/22/22 Mag Hydroxide 8% [Milk Of Magnesia*] 30 ml PO DAILYPRN PRN 06/22/22 Zinc Sulfate [Zinc Sulfate*] 220 mg PO DAILY 06/22/22 Clopidogrel Bisulfate [Plavix*] 75 mg PO DAILY 07/22/22 Docusate [Colace Cap*] 100 mg PO SEECOM 07/22/22 Metoprolol Succinate 12.5 mg PO DAILY 07/22/22 Polyethyl Gly 3350 [Glycolax*] 17 gm PO DAILY 07/22/22 Protein Supplement [Promod] 60 ml PO BID 07/22/22 lisinopriL [Prinivil*] 5 mg PO DAILY #30 tab 07/26/22 Apixaban [Eliquis *] 2.5 mg PO BID 09/06/22 Lactulose [Enulose] 10 gm PO SEECOM 09/06/22 Amino Acids/Protein Hydrolys [Prosource No Carb Liquid Pkt] 30 ml PO BID packet 10/01/22 Collagenase [Santyl Ointment*] 1 appl TOP DAILY tube 10/01/22 Heparin [Heparin 1,000 units/mL *] 4,000 unit IV EVERY HD PRN vial 10/01/22 Insulin -Regular Human [Novolin -R*] See Protocol SQ ACHS ml 10/01/22 Meropenem [Merrem 500 MG/100 ML NS IVPB] 500 mg IV Q24H 42 Days ml 10/01/22 Vancomycin/0.9 % Sod Chloride [Vanco 500 mg/100 ml-0.9% NaCl] 500 mg IV Q48H 42 Days 10/01/22 New Medications: Meropenem [Merrem 500 MG/100 ML NS IVPB] 500 mg IV Q24H 42 Days ml Vancomycin/0.9 % Sod Chloride [Vanco 500 mg/100 ml-0.9% NaCl] 500 mg IV Q48H 42 Days Diet: ADA Followup: Freddy Stephen MD [Primary Care Provider] -
[2022-10-01] MEDS: Meropenem 500 MG in NA CHLORIDE 0.9% 100 ML IV SCH (17:03)
--- NOTE | 2022-10-01 17:33 | P.PN ---
Subjective Date of Service: 10/01/22 Chief Complaint: UTI, AMS Patient has no new complain. Nurse reports bruise on the dorsum of the right forefinger. She has good oral intake. Physical Examination - Vital Signs Temperature: 97.3 F Blood Pressure: 139/60 Pulse: 67 Respirations: 16 Pulse Ox (%): 99 Assessment And Plan - Plan Physical Exam: GEN: Alert, orientedx3, Castro in place HEENT: Normal conjunctiva, sclera anicteric CV: Regular rate and rhythm, no edema Pulm: Nonlabored respirations on room air ABD: Soft, nontender, nondistended Integumentary: sacral ulcer; L 1st toe amputation site, L foot wounds, minimal erythema around base of 3rd toe with ulceration medial aspect, no purulent drainage Neuro: Dementia, Right-sided paraplegia Castro in place vitals reviewed Problem List: Metabolic encephalopathy likely secondary to UTI MDR Staph Epidermidis Bacteremia Sacral ulcer, stage 4 left great toe amputation stump wound Osteomyelitis of L foot h/o of MDR UTI/wound infections ESRD on HD TTS Atrial fibrillation on chronic anticoagulation IDDM2 with hyperglycemia History of CVA with right-sided weakness Hypertension Hypothyroidism Pacemaker in place Metabolic encephalopathy likely secondary to UTI MDR Staph Epidermidis Bacteremia h/o of MDR UTI/wound infections CT head (09/24): No evidence of an acute intracranial process Urine cx: 2+ yeast not becky Blood cx (09/24): MDR Staph Epidermidis Repeat blood cx (09/27): NGTD ID is following. continue merrem / vanc (09/24-) continue Bactrim (09/25-) staph bacteremia; patient was on vanc; f/u cultures; r/o vanc-resistant MRSA Sacral ulcer, left great toe amputation stump wound Osteomyelitis of L foot Xray Foot (09/24): Findings highly suspicious or sequela from advanced osteomyelitis of the distal first metatarsal. Lucency in the overlying soft tissues which may be secondary to infection or postsurgical ID following continue empiric merrem / vanc (09/24-) x6 weeks per ID General surgery consulted santyl/dry gauze foot and sacrum ulcer. f/u at wound healing center next Friday Dr. Blackman consulted 09/[address] Carson is out of town poor perfusion, recent arterial dopplers with monophasic flow Discussed with Dr. Blackman - does not feel amputation / surgical intervention is warranted at this time 09/28- L foot pain and redness improving. Patient slated for IV antibiotics, wound care and hemodialysis at LT[facility]. ESRD on HD TTS Patient is undergoing routine hemodialysis Nephrology is following Atrial fibrillation on chronic anticoagulation. continue Amiodarone, metoprolol, Eliquis IDDM2 with hyperglycemia. ACHS Accu-Chek, SSI History of CVA with right-sided weakness. Continue home eliquis, plavix Hypertension. Continue home medications Hypothyroidism. Continue Levothyroxine VTE: eliquis Code: Full Dispo: [facility].
[2022-10-01] MEDS ORDERED: EPOETIN 4,000 UNIT/ML VIAL SQ SCH (17:45)
[2022-10-01] MEDS ORDERED: VANCOMYCIN 500 MG in NA CHLORIDE 0.9% 250 ML IVPB SCH (18:00)
--- NOTE | 2022-10-01 19:42 | PN ---
Date of Progress Note: 10/01/2022 Subjective: The patient with end-stage renal disease, was admitted for dialysis Friday, , Friday, and was admitted for altered mental status and urinary tract infection. Today, no change in clinical status. She had dialysis today. Physical Examination: Vital Signs: Stable. Temperature 97.3, pulse rate 67, and blood pressure 115/60. General: Awake and alert, not in distress. Neck: Supple. No elevated JVD. Heart: Regular rate and rhythm. Normal S1, S2. Chest: Clear to auscultation bilaterally. No rales or wheezes. Abdomen: Soft, nontender. Extremities: Trace edema . Laboratory Data: White count 6.5, hemoglobin 8.9, platelets 157. Sodium 135, potassium 4.7, creatinine 5.5. Assessment And Plan: 1. End-stage renal disease. Continue dialysis Friday, , Friday . 2. Anemia of chronic disease. Monitor hemoglobin. Continue Epogen. 3. Hypertension. Blood pressure controlled with current medication. 4. Foot osteomyelitis. Continue Merrem and vancomycin as per ID and Wound Care. Monitor vancomycin level. 5. Atrial fibrillation, rate controlled. The patient is on Eliquis, amiodarone b Carvidelol . Thanks for allowing me to participate in the patient's care. Total time spent 55 minutes including documentation, doing labs, and discussing with the nursing staff. ESA Voice ID: [id number] Report ID: [id number] MTDD
[2022-10-01] MEDS: ATORVASTATIN 80 MG TAB PO SCH (21:16)
[2022-10-02] MEDS: ONDANSETRON 4 MG/2 ML VIAL IV PRN (05:49)
[2022-10-02] MEDS: LEVOTHYROXINE SOD 0.125 MG TAB PO SCH (05:49)
[2022-10-02] MEDS: INSULIN -REGULAR HUMAN 50 UNIT/0.5 ML ML SQ SCH ×2 (07:30→11:30)
[2022-10-02] MEDS: AMIODARONE HCL 200 MG TAB PO SCH (08:40)
[2022-10-02] MEDS: AMINO ACIDS/PROTEIN HYDROLYS 30 ML LIQUID.PKT PO SCH (08:40)
[2022-10-02] MEDS: CLOPIDOGREL 75 MG TABLET PO SCH (08:41)
[2022-10-02] MEDS: APIXABAN 2.5 MG TABLET PO SCH (08:41)
[2022-10-02] MEDS: METOPROLOL XL 25 MG TAB PO SCH (08:42)
[2022-10-02] MEDS: COLLAGENASE 30 GM OINTMENT TOP SCH (08:42)
--- NOTE | 2022-10-02 09:40 | P.PN ---
Date of Service: 10/02/22 Chief Complaint: UTI, AMS Subjective: Patient reports severe left foot pain at site of wounds. PRN pain medication given by RN. No acute events reported overnight. Current plan for discharge to [facility] today. Physical Examination Temp Pulse Resp BP Pulse Ox 97.3 F 57 16 132/64 100 10/02/22 08:00 10/02/22 08:42 10/02/22 08:00 10/02/22 08:42 10/02/22 08:00 General: In no apparent distress, Oriented x3 Neck: Supple, JVD not distended Respiratory: Normal air movement. Nonlabored respirations. Cardiovascular: Trace BLE edema, Weak DP and PT pulses bilaterally Gastrointestinal: Normal bowel sounds, Soft and benign Musculoskeletal: No clubbing. Hx amputation left first toe Integumentary: Pressure ulcer of sacrum stage 4. Arterial ulcer of left 3rd toe. Laboratory Data - Reviewed Microbiology Data - Reviewed Imagings Data: - Reviewed Medications List: Reviewed Assessment and Plan Problem List ESRD on HD Diabetes Mellitus Type II Hypertension Hypothyroidism Atrial Fibrillation PAD Hx CVA with right sided weakness Pacemaker hx left first toe amputation Chronic Sacral Pressure Injury stage 4 Severe PCM Left Third Toe Pressure vs Arterial Ulcer Osteomyelitis - XR Left Foot 09/24: " 1. Findings highly suspicious or sequela from advanced osteomyelitis of the distal first metatarsal. Lucency in the overlying soft tissues which may be secondary to infection or postsurgical. 2. Patient is status post amputation of the first toe. " - hx of osteomyelitis and gangrene s/p amputation of left first toe on 07/24/2022 - Wound culture sacrum 09/25: pending - Due to history of MDR infection and recent antibiotic use and ho spitalizations, patient was started on Meropenem and Vancomycin 09/26 - 09/06 sacral wound culture: Proteus mirabilis - 09/06 left toe wound culture: Acinetobacter dalton/haem , Klebsiella Pneumoniae ESBL , and Methicillin-Resistant Staphylococcus aureus - On Meropenem and Vancomycin (started 09/26) Urinary Tract Infection, Recurrent History of Multi-Drug Resistant Infections - Urinalysis 09/24: LE 500, RBC >50, WBC >50, Many WBC clumps, Bacteria 20-50, Many yeast - Urine culture 09/25: 2+ yeast not becky Blood cultures 09/24: Staph epidermis Afebrile. No leukocytosis. Recommendations Pending transfer to [facility] today 10/02 - Osteomyelitis: Continue 6 weeks of IV antibiotics (09/26 to 11/07). Continue Meropenem and Vancomycin. - General surgery consulted to reevaluate left foot amputation site osteomyelitis. - ESRD: Renally dose medications. Nephrology on case. - Strict blood glucose control - Pressure offloading measures. Wedge pillow. Low air loss mattress. Turn patient Q2H. - Left 3rd toe ulcer: paint with betadine and apply telfa nonstick pad or xeroform between toes to relieve pressure on left third toe wound - left foot first toe wound" apply betadine and cover with foam dressing to keep protected Case discussed with Boogie Eaton
[2022-10-02] MEDS ORDERED: HYDROCODONE/APAP 5/325 MG TAB PO ONE (10:23)
[2022-10-02] MEDS ORDERED: LIDOCAINE 5% OINT 30 GM TUBE TOP ONE (11:00)
[2022-10-02 12:31] VITALS: BP 165/54; TEMP 97.7
--- NOTE | 2022-10-02 15:10 | PN ---
Date of Progress Note: 10/02/2022 Subjective: Patient doing well. More awake. Physical Examination: Vital Signs: When I saw the patient, blood pressure 132/64, pulse of 57, afebrile. Chest: Clear to auscultation. Heart: S1, S2. Systolic murmur. Abdomen: Soft, nontender. Extremities: Dressing on the left foot. Neuro: More awake, oriented. Laboratory Data: Hemoglobin 8.6. Sodium 135, potassium 4.7, bicarb 24, BUN 49, creatinine 5.5, calc ium 7.3. Current Medications: The patient on include: 1.Meropenem. 2.Vancomycin. 3.Eliquis. 4.Plavix. 5.Epogen. 6.Atorvastatin. 7.Amiodarone. 8.Metoprolol. 9.Levothyroxine. Assessment And Plan: 1.End-stage renal disease. We will continue the patient on dialysis TTS. The patient is scheduled for dialysis today. We will follow up. 2.Hyponatremia will be corrected with dialysis. 3.Foot infection. Continue current antibiotic. 4.Foot pain. I am going to start the patient on low dose of Neurontin and will follow up. 5.Deconditioning. Continue PT/OT. HARRIETT/MODL Voice ID: [id number] Report ID: [id number]
[2022-10-02 16:40] VITALS: O2SAT 96
[2022-10-02] MEDS ORDERED: GABAPENTIN 100 MG CAP PO SCH (21:00)
[2022-10-03] MEDS ORDERED: VANCOMYCIN 500 MG in NA CHLORIDE 0.9% 250 ML IVPB SCH (18:00)
== END 2022-10-02 15:30 | DRG 689 ==
LOC: ER 17:47 → ERHOLD 23:30 → 2ND 09-25 00:25
PROVIDERS: ADMIT Hospitalist; ATTEND Internal Medicine
PROC: 5A1D70Z Performance of Urinary Filtration, Intermittent, Less than 6 Hours Per Day (ICD-10-PCS; principal; 2022-09-25)
DX: N30.00 Acute cystitis without hematuria (principal); E43 Unspecified severe protein-calorie malnutrition; G93.41 Metabolic encephalopathy; L89.154 Pressure ulcer of sacral region, stage 4; N18.6 End stage renal disease; I12.0 Hypertensive chronic kidney disease with stage 5 chronic kidney disease or end stage renal disease; I69.351 Hemiplegia and hemiparesis following cerebral infarction affecting right dominant side; I48.20 Chronic atrial fibrillation, unspecified; F23 Brief psychotic disorder; M86.8X7 Other osteomyelitis, ankle and foot; Z68.41 Body mass index [BMI] 40.0-44.9, adult; G82.20 Paraplegia, unspecified; Z16.24 Resistance to multiple antibiotics; R78.81 Bacteremia; L03.119 Cellulitis of unspecified part of limb; E66.9 Obesity, unspecified; E11.69 Type 2 diabetes mellitus with other specified complication; E11.22 Type 2 diabetes mellitus with diabetic chronic kidney disease; E11.65 Type 2 diabetes mellitus with hyperglycemia; E11.51 Type 2 diabetes mellitus with diabetic peripheral angiopathy without gangrene; E11.40 Type 2 diabetes mellitus with diabetic neuropathy, unspecified; E11.621 Type 2 diabetes mellitus with foot ulcer; L97.529 Non-pressure chronic ulcer of other part of left foot with unspecified severity; D63.1 Anemia in chronic kidney disease; E03.9 Hypothyroidism, unspecified; E30.9 Disorder of puberty, unspecified; K59.00 Constipation, unspecified; F03.90 Unspecified dementia, unspecified severity, without behavioral disturbance, psychotic disturbance, mood disturbance, and anxiety; E87.70 Fluid overload, unspecified; B95.7 Other staphylococcus as the cause of diseases classified elsewhere; Z99.2 Dependence on renal dialysis; Z95.0 Presence of cardiac pacemaker; Z79.4 Long term (current) use of insulin; Z79.01 Long term (current) use of anticoagulants; Z90.710 Acquired absence of both cervix and uterus; Z89.412 Acquired absence of left great toe; Z20.822 Contact with and (suspected) exposure to COVID-19
CPT/HCPCS: 36415; 70450; 71045; 80048; 80069; 80076; 80202; 81001; 82947; 83605; 83735; 84145; 84439; 84443; 84484; 85025; 86140; 86706; 87040; 87070; 87077; 87086; 87088; 87186; 87205; 87340; 87635; 90935; 93005; 96365; 96375; 99285; J0612; J0696; J1644; J1815; J2185; J2405; J3590; J7040

== ENCOUNTER 2022-11-02 12:39 | Inpatient (IN) | payer OTHER ==
--- OUTSIDE RECORDS SUMMARY | 2022-11-02 12:49 | XMS REPORT | Continuity of Care Document ---
:1940 Author Organization [facility] t Address [address] [facility]. [address] [place] [address] Care Team Providers Name Role Phone SARIAH HART Primary Care Physician Unavailable Jacqui Pate Attending Clinician Unavailable KACIE FISCHER Attending Clinician Unavailable Vitor Attending Clinician Unavailable EM ALEX Attending Clinician Unavailable KACIE FISCHER Admitting Clinician Unavailable Vitor Admitting Clinician Unavailable EM ALEX Admitting Clinician Unavailable Payers Payer Name Policy Type Policy Number Effective Date Expiration Date S santiago [facility]/MEDICARE [id number] 2016 COMPLETE 00:00:00 MEDICARE B-[place]: [id number] 2006 Dragon Inside 00:00:00 [facility] - MEDICARE [id number] COMPLETE (MEDICARE REPLACEMENT HMO) [facility] 53 [id number] 2021 Common ADVANTAGE WELLMED 00:00:00 [facility] AARP MEDICARE 53 [id number] 2020 Common ADVANTAGE WELLMED 00:00:00 [facility] Problems Condition Condition Condition Status Onset Resolution Last Treating Co mments Source Name Details Category Date Date Treatment Clinician Date 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 4-19 Medi dragan major Major 00:00: depression Depression 00 Hypertensi Hypertensi Problem Active [facility] ve heart ve Heart 05-29 Medica l and renal and Renal 00:00: disease Disease 00 with renal with Renal failure Failure Hemiparesi Hemiparesi Problem Active [facility] s as late s as Late 05-29 Medi dragan effect of Effect of 00:00: [...] Physical Problem Active [facility] deconditio Deconditio 05-29 Me dical ellen ellen 00:00: 00 Retinopath Retinopath Problem Active [facility] y due to y Due to 05-29 Medica l type 2 Type 2 00:00: diabetes Diabetes 00 mellitus Mellitus Acquired Acquired Problem Active [facility] hypothyroi Hypothyroi 05-29 Me dical dism dism 00:00: 00 Morbid Morbid Problem Active [facility] obesity Obesity 05-29 Medical 00:00: 00 Secondary Secondary Problem Active [facility] via immune Immune 05-28 Medical deficiency Deficiency 00:00: disorder Disorder 00 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 in Problem Active [facility] via chronic Chronic 05-28 Medical kidney Kidney 00:00: disease Disease 00 Hypercoagu Hypercoagu Problem Active [facility] lability lability 05-28 Medica l state State 00:00: 00 Major Major Problem Active [facility] depressive Depressive 05-28 Me dical disorder Disorder 00:00: 00 Acute pain Acute Pain Problem Active [facility] 05-28 Medical 00:00: 00 Atrial Atrial Problem Active [facility] fibrillati Fibrillati 4-18 Me dical on on 00:00: 00 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 4-18 Medi dragan deficit as Deficit as 00:00: late Late 00 effect of Effect of cerebrovas Cerebrovas cular cular accident Accident Hemiparesi Hemiparesi Problem Active [facility] s as late s as Late 4-18 Medi dragan effect of Effect of 00:00: cerebrovas Cerebrovas 00 cular cular accident Accident Dysphagia Dysphagia Problem Active [facility] via as a late as a Late 4-18 Medi dragan effect of Effect of 00:00: cerebrovas Cerebrovas 00 cular cular accident Accident Gastroesop Gastroesop Problem Active [facility] hageal hageal 4-18 Medical reflux Reflux 00:00: disease Disease 00 Unable to Unable to Problem Active [facility] via walk Walk 4-18 Medical 00:00: 00 Permanent Permanent Problem Active [facility] via cardiac Cardiac 4-18 Medical pacemaker Pacemaker 00:00: 00 Body mass Body Mass Problem Active [facility] via index 40+ Index 40+ 4-18 Medi dragan - severely - Severely 00:00: obese Obese 00 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 Angiopathy 4-18 Me dical due to Due to 00:00: diabetes Diabetes 00 mellitus Mellitus Type 2 Type 2 Problem Active [facility] diabetes Diabetes 4-18 Medica l mellitus Mellitus 00:00: 00 Hyperlipid Hyperlipid Problem Active [facility] emia emia 4-18 Medical 00:00: 00 Symptomati Symptomati Disease Active [facility] c 6[facility]29 [facility] bradycardi bradycardi 00:00: Me dical a a 00 Center Acute deep Acute deep Disease Active M ethodi vein vein 6-25 st thrombosis thrombosis 00:00: Ho spita (DVT) of (DVT) of 00 l axillary axillary vein of vein of left upper left upper extremity extremity Osteomyeli Osteomyeli Disease Active 0 M ethodi tis tis 6-14 st 00:00: Hospita 00 l Diabetes Diabetes Disease Recurre [facility] mellitus mellitus nce 1-03 [facility] type 2, type 2, 00:00: Medical insulin insulin 00 Center dependent dependent 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[facility] al al 02-12 [facility] arterioscl arterioscl 00:00: Me dical erosis erosis 00 Center Accelerate Accelerate Disease Active [facility] d d 02-12 [facility] hypertensi hypertensi 00:00: Me dical on on 00 [place] S/P S/P Disease Active [facility] radiofrequ radiofrequ 02-12 [facility] ency ency 00:00: Medical ablation ablation 00 Center operation operation 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 Hemiplegia Hemiplegia Problem C ommon of right affecting Spiri t dominant right - CHI side dominant side [facility] Long-term assisted Problem Com mon current (current) Spirit use of use of - [facility]I insulin insulin [facility] Diabetic Diabetes Problem Commo n neuropathy mellitus Spir it with - CHI diabetic neuropathy [facility] [id number] Chronic Problem Commo n kidney Spirit disease, - CHI stage 4 (severe) [facility] [id number] Melba Problem Common tropicalis Spirit infection - [facility] [id number] 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Spirit jena - CHI arteries [facility] extremitie Medica l s with Center intermitte nt claudicati on, left leg [id number] 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, - CHI recurrent, [facility] [id number] Bilateral Problem Com mon lower [facility] extremity - CHI edema [facility] [id number] Type 2 Problem Commo n 07 diabetes Spirit mellitus - CHI with diabetic [facility] chronic Medical kidney Center disease [id number] Chronic Problem 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 - CHI failure, St unspecifie [facility] d heart Medical failure Center type History of History of Problem C ommon cerebrovas CVA Spirit cular (cerebrova - [facility] accident scular St without accident) [facility] residual Medical deficits Center Allergies, Adverse Reactions, Alerts Allergy Allergy Status Severity Reaction(s) Onset Inactive Treating Comm ents Source Name Type Date Date Clinician NO KNOWN Allergy Active [facility] Family History Family Member Diagnosis Comments Start Date Stop Date Source Natural father Diabetes [facility] Natural mother Hypertension [facility] Social History Social Habit Start Date Stop Date Quantity Comments Source Sexual orientation [facility] History of Tobacco Common [facility] - Use [facility] Alcohol intake 2020-08-09 2020-08-09 Current [facility] 00:00:00 00:00:00 non-drinker of Medical Ce nter alcohol (finding) History of Social 2017-12-24 2017-12-[address] function 00:00:00 00:00:00 Hospital Tobacco use and 2017-07-24 2017-07-24 Smokeless [facility] 00:00:00 00:00:00 tobacco non-user Hospital Sex Assigned At [birth year] [facility] 00:00:00 00:00:00 [facility] Smoking Status Start Date Stop Date [...] MCG 00:00: 150 MCG 00 Levothyroxi Levothyroxi 2021-1 No QD Levothyrox ne Sodium ne Sodium 0-27 ine Sodium 175 MCG 175 MCG 00:00: 175 MCG 00 furosemide Yes 80mg QD Take [address] (LASIX) 80 6-29 by mouth [facility] MG tablet 23:38: daily. Medica l 15 [place] metoprolol Yes 12.5mg Take 12.[address] tartrate 6-29 mg by [facility] (LOPRESSOR 23:38: mouth. Medic al ORAL) 15 [place] atorvastati Yes 80mg QD Take [address] n (LIPITOR) 6-29 by mouth Luke s 80 MG 23:38: daily. Medical tablet 15 [place] famotidine Yes 20mg QD Take [address] (PEPCID) 20 6-29 by mouth Luke s MG tablet 23:38: daily. Medica l 15 [place] GABAPENTIN Yes 200mg QD Take [address] ORAL 6-29 mg by [facility] 23:38: mouth Medical 15 daily. [place] aspirin 81 Yes 81mg QD Take [address] MG EC 6-29 by mouth [facility] tablet 23:38: daily. Medical [address] [place] [address] aspirin 81 Yes 81mg QD Take [address] MG EC 6-29 by mouth [facility] tablet 23:38: daily. [address] metoprolol Yes 25mg QD Take [address] (TOPROL-XL) 6-29 by mouth Luke s 25 MG 24 hr 23:38: daily. Medi dragan tablet 15 [place] insulin Yes Inject [facility] 70/30, 6-29 [facility] insulin 23:38: usly 2 Medical NPH-insulin 15 (two) Center regular, times (HumuLIN daily 70/30) 100 before unit/mL meals. (70-30) injection cloNIDine Yes .1mg Q.[id number] Take 0.[address] HCL 6-29 [id number] mg by [facility] (CATAPRES) 23:38: 3D mouth [...] 20 MG 23:38: daily. Medical capsule 15 [place] metoprolol Yes 25mg QD Take [address] (TOPROL-XL) 6-29 by mouth Luke s 25 MG 24 hr 23:38: daily. Medi dragan tablet 15 [place] furosemide Yes 80mg QD Take [address] (LASIX) 80 6-29 by mouth [facility] MG tablet 23:38: daily. Medica l 15 [place] metoprolol Yes 12.5mg Take 12.[address] tartrate 6-29 mg by [facility] (LOPRESSOR 23:38: mouth. Medic al ORAL) 15 [place] atorvastati Yes 80mg QD Take [address] n (LIPITOR) 6-29 by mouth Luke s 80 MG 23:38: daily. Medical tablet 15 [place] famotidine Yes 20mg QD Take [address] (PEPCID) 20 6-29 by mouth Luke s MG tablet 23:38: daily. Medica l 15 [place] GABAPENTIN Yes 200mg QD Take [address] ORAL 6-29 mg by [facility] 23:38: mouth Medical 15 daily. [place] insulin Yes Inject [facility] 70/30, 6-29 subcutaneo [facility] insulin 23:38: usly 2 Medical NPH-insulin 15 (two) Center regular, times (HumuLIN daily 70/30) 100 before unit/mL meals. (70-30) injection aspirin 81 Yes 81mg QD Take [address] MG EC 6-29 by mouth [facility] tablet 23:38: daily. Medical 15 [place] metoprolol Yes 25mg QD Take [address] (TOPROL-XL) 6-29 by mouth Luke s 25 MG 24 hr 23:38: daily. Medi dragan tablet 15 [place] insulin 2021-[address] [facility] 70/30, 6-29 [facility]o [facility] insulin 23:38: usly 2 Medical NPH-insulin 15 (two) Center regular, times (HumuLIN daily 70/30) 100 before unit/mL meals. (70-30) injection cloNIDine Yes .1mg Q.[id number] Take 0.[address] HCL 6-29 [id number] mg by [facility] (CATAPRES) 23:38: 3D mouth [...] al ORAL) 15 Center cloNIDine Yes .1mg Q.[id number] Take 0.[address] HCL 6-29 [id number] mg by [facility] (CATAPRES) 23:38: 3D mouth [...] by [facility] 23:38: mouth Medical 15 daily. [place] apixaban Yes 5mg Q.5D Take 5 mg [...] unit/mL meals. (70-30) injection cloNIDine Yes .1mg Q.[id number] Take 0.[address] HCL 6-29 [id number] mg by [facility] (CATAPRES) 23:38: 3D mouth [...] 20 MG 23:38: daily. Medical capsule 15 [place] furosemide Yes 80mg QD Take [address] (LASIX) 80 6-29 by mouth [facility] MG tablet 23:38: daily. Medica l 15 Center metoprolol Yes 12.5mg Take 12.[address] tartrate 6-29 mg by [facility] (LOPRESSOR 23:38: mouth. Medic al ORAL) 15 [place] atorvastati Yes 80mg QD Take [address] n (LIPITOR) 6-29 by mouth Luke s 80 MG 23:38: daily. Medical tablet 15 [place] famotidine Yes 20mg QD Take [address] (PEPCID) 20 6-29 by mouth Luke s MG tablet 23:38: daily. Medica l 15 [place] DULoxetine Yes 20mg QD Take [address] (CYMBALTA) 6-29 by mouth [facility] 20 MG 23:38: daily. Medical capsule 15 [place] GABAPENTIN Yes 200mg QD Take [address] ORAL 6-29 mg by [facility] 23:38: mouth Medical 15 daily. [place] furosemide Yes 80mg QD Take [address] (LASIX) 80 6-29 by mouth [facility] MG tablet 23:38: daily. Medica l 15 [place] aspirin 81 Yes 81mg QD Take [address] MG EC 6-29 by mouth [facility] tablet 23:38: daily. Medical 15 [place] metoprolol Yes 25mg QD Take [address] (TOPROL-XL) 6-29 by mouth Luke s 25 MG 24 hr 23:38: daily. Medi dragan tablet 15 [place] insulin Yes Inject [facility] 70/30, 6-29 subcutaneo [facility] insulin 23:38: usly 2 Medical NPH-insulin 15 (two) [facility] regular, times (HumuLIN daily 70/30) 100 before unit/mL meals. (70-30) injection metoprolol Yes 12.5mg Take 12.[address] tartrate 6-29 mg by [facility] (LOPRESSOR 23:38: mouth. Medic al ORAL) 15 [place] cloNIDine Yes .1mg Q.[id number] Take 0.[address] HCL 6-29 [id number] mg by [facility] (CATAPRES) 23:38: 3D mouth [...] 20 MG 23:38: daily. Medical capsule 15 [place] furosemide Yes 80mg QD Take [address] (LASIX) 80 6-29 by mouth [facility] MG tablet 23:38: daily. Medica l 15 [place] metoprolol Yes 12.5mg Take 12.[address] tartrate 6-29 mg by [facility] (LOPRESSOR 23:38: mouth. Medic al ORAL) 15 [place] atorvastati Yes 80mg QD Take [address] n (LIPITOR) 6-29 by mouth Luke s 80 MG 23:38: daily. Medical tablet 15 [place] famotidine Yes 20mg QD Take [address] (PEPCID) 20 6-29 by mouth Luke s MG tablet 23:38: daily. Medica l 15 [place] GABAPENTIN Yes 200mg QD Take [address] ORAL 6-29 mg by [facility] 23:38: mouth Medical 15 daily. [place] atorvastati Yes 80mg QD Take [address] n (LIPITOR) 6-29 by mouth Luke s 80 MG 23:38: daily. Medical tablet 15 [place] famotidine Yes 20mg QD Take [address] (PEPCID) 20 6-29 by mouth Luke s MG tablet 23:38: daily. Medica l 15 [place] aspirin 81 Yes 81mg QD Take [address] MG EC 6-29 by mouth [facility] tablet 23:38: daily. Medical 15 [place] metoprolol Yes 25mg QD Take [address] (TOPROL-XL) 6-29 by mouth Luke s 25 MG 24 hr 23:38: daily. Medi dragan tablet 15 [place] insulin Yes Inject [facility] 70/30, 6-29 subcutaneo [facility] insulin 23:38: usly 2 Medical NPH-insulin 15 (two) Center regular, times (HumuLIN daily 70/30) 100 before unit/mL meals. (70-30) injection cloNIDine Yes .1mg Q.[id number] Take 0.[address] HCL 6-29 [id number] mg by [facility] (CATAPRES) 23:38: 3D mouth [...] by [facility] 23:38: mouth Medical 15 daily. [place] levothyroxi Yes 175ug Take [address] ne 6-29 mcg by [facility] (SYNTHROID, 23:38: mouth Medic al LEVOTHROID) 15 Every Center 175 MCG morning on tablet an empty stomach. DULoxetine Yes 20mg QD Take [address] (CYMBALTA) 6-29 by mouth [facility] 20 MG 23:38: daily. Medical capsule 15 [place] furosemide Yes 80mg QD Take [address] (LASIX) 80 6-29 by mouth [facility] MG tablet 23:38: daily. Medica l 15 [place] metoprolol Yes 12.5mg Take 12.[address] tartrate 6-29 mg by [facility] (LOPRESSOR 23:38: mouth. Medic al ORAL) 15 [place] atorvastati Yes 80mg QD Take [address] n (LIPITOR) 6-29 by mouth Luke s 80 MG 23:38: daily. Medical tablet 15 [place] famotidine Yes 20mg QD Take [address] (PEPCID) 20 6-29 by mouth Luke s MG tablet 23:38: daily. Medica l 15 [place] GABAPENTIN Yes 200mg QD Take [address] ORAL 6-29 mg by [facility] 23:38: mouth Medical 15 daily. [place] aspirin 81 Yes 81mg QD Take [address] MG EC 6-29 by mouth [facility] tablet 23:38: daily. Medical 15 [place] metoprolol Yes 25mg QD Take [address] (TOPROL-XL) 6-29 by mouth Luke s 25 MG 24 hr 23:38: daily. Medi dragan tablet 15 Center insulin Yes Inject [facility] 70/30, 6-29 [facility]cutaneo [facility] insulin 23:38: usly 2 Medical NPH-insulin 15 (two) Center regular, times (HumuLIN daily 70/30) 100 before unit/mL meals. (70-30) injection cloNIDine Yes .1mg Q.[id number] Take 0.[address] HCL 6-29 [id number] mg by [facility] (CATAPRES) 23:38: 3D mouth [...] 20 MG 23:38: daily. Medical capsule 15 [place] furosemide Yes 80mg QD Take [address] (LASIX) 80 6-29 by mouth [facility] MG tablet 23:38: daily. Medica l 15 [place] metoprolol Yes 12.5mg Take 12.[address] tartrate 6-29 mg by [facility] (LOPRESSOR 23:38: mouth. Medic al ORAL) 15 [place] atorvastati Yes 80mg QD Take [address] n (LIPITOR) 6-29 by mouth Luke s 80 MG 23:38: daily. Medical tablet 15 [place] famotidine Yes 20mg QD Take [address] (PEPCID) 20 6-29 by mouth Luke s MG tablet 23:38: daily. Medica l 15 [place] GABAPENTIN Yes 200mg QD Take [address] ORAL 6-29 mg by [facility] 23:38: mouth Medical 15 daily. [place] aspirin 81 Yes 81mg QD Take [address] MG EC 6-29 by mouth [facility] tablet 23:38: daily. Medical 15 [place] metoprolol Yes 25mg QD Take [address] (TOPROL-XL) 6-29 by mouth Luke s 25 MG 24 hr 23:38: daily. Medi dragan tablet 15 Center insulin Yes Inject [facility] 70/30, 6-29 subcutaneo [facility] insulin 23:38: usly 2 Medical NPH-insulin 15 (two) Center regular, times (HumuLIN daily 70/30) 100 before unit/mL meals. (70-30) injection cloNIDine Yes .1mg Q.[id number] Take 0.[address] HCL 6-29 [id number] mg by [facility] (CATAPRES) 23:38: 3D mouth [...] 20 MG 23:38: daily. Medical capsule 15 [place] furosemide Yes 80mg QD Take [address] (LASIX) 80 6-29 by mouth [facility] MG tablet 23:38: daily. Medica l 15 [place] metoprolol Yes 12.5mg Take 12.[address] tartrate 6-29 mg by [facility] (LOPRESSOR 23:38: mouth. Medic al ORAL) 15 [place] atorvastati Yes 80mg QD Take [address] n (LIPITOR) 6-29 by mouth Luke s 80 MG 23:38: daily. Medical tablet 15 [place] famotidine Yes 20mg QD Take [address] (PEPCID) 20 6-29 by mouth Luke s MG tablet 23:38: daily. Medica l 15 [place] GABAPENTIN Yes 200mg QD Take [address] ORAL 6-29 mg by [facility] 23:38: mouth Medical 15 daily. [place] aspirin 81 Yes 81mg QD Take [address] MG EC 6-29 by mouth [facility] tablet 23:38: daily. Medical 15 Center metoprolol Yes 25mg QD Take [address] (TOPROL-XL) 6-29 by mouth Luke s 25 MG 24 hr 23:38: daily. Medi dragan tablet 15 [place] insulin Yes Inject [facility] 70/30, 6-29 subcutaneo [facility] insulin 23:38: usly 2 Medical NPH-insulin 15 (two) Center regular, times (HumuLIN daily 70/30) 100 before unit/mL meals. (70-30) injection cloNIDine Yes .1mg Q.[id number] Take 0.[address] HCL 6-29 [id number] mg by [facility] (CATAPRES) 23:38: 3D mouth [...] 20 MG 23:38: daily. Medical capsule 15 [place] furosemide Yes 80mg QD Take [address] (LASIX) 80 6-29 by mouth [facility] MG tablet 23:38: daily. Medica l 15 [place] metoprolol Yes 12.5mg Take 12.[address] tartrate 6-29 mg by [facility] (LOPRESSOR 23:38: mouth. Medic al ORAL) 15 Center atorvastati Yes 80mg QD Take [address] n (LIPITOR) 6-29 by mouth Luke s 80 MG 23:38: daily. Medical tablet 15 [place] famotidine Yes 20mg QD Take [address] (PEPCID) 20 6-29 by mouth Luke s MG tablet 23:38: daily. Medica l 15 [place] GABAPENTIN Yes 200mg QD Take [address] ORAL 6-29 mg by [facility] 23:38: mouth Medical 15 daily. [place] aspirin 81 Yes 81mg QD Take [address] MG EC 6-29 by mouth [facility] tablet 23:38: daily. Medical 15 [place] metoprolol Yes 25mg QD Take [address] (TOPROL-XL) 6-29 by mouth Luke s 25 MG 24 hr 23:38: daily. Medi dragan tablet 15 [place] insulin Yes Inject [facility] 70/30, 6-29 subcutaneo [facility] insulin 23:38: usly 2 Medical NPH-insulin 15 (two) Center regular, times (HumuLIN daily 70/30) 100 before unit/mL meals. (70-30) injection cloNIDine Yes .1mg Q.[id number] Take 0.[address] HCL 6-29 [id number] mg by [facility] (CATAPRES) 23:38: 3D mouth [...] 20 MG 23:38: daily. Medical capsule 15 [place] furosemide Yes 80mg QD Take 80 mg [...] 80 MG 23:38: daily. Medical tablet 15 [place] famotidine Yes 20mg QD Take [address] (PEPCID) 20 6-29 by mouth Luke s MG tablet 23:38: daily. Medica l 15 [place] GABAPENTIN Yes 200mg QD Take [address] ORAL 6-29 mg by [facility] 23:38: mouth Medical 15 daily. [place] aspirin 81 Yes 81mg QD Take [address] MG EC 6-29 by mouth [facility] tablet 23:38: daily. Medical 15 [place] metoprolol Yes 25mg QD Take [address] (TOPROL-XL) 6-29 by mouth Luke s 25 MG 24 hr 23:38: daily. Medi dragan tablet 15 [place] insulin Yes Inject [facility] 70/30, 6-29 subcutaneo [facility] insulin 23:38: usly 2 Medical NPH-insulin 15 (two) Center regular, times (HumuLIN daily 70/30) 100 before unit/mL meals. (70-30) injection cloNIDine Yes .1mg Q.[id number] Take 0.[address] HCL 6-29 [id number] mg by [facility] (CATAPRES) 23:38: 3D mouth [...] 20 MG 23:38: daily. Medical capsule 15 [place] furosemide Yes 80mg QD Take [address] (LASIX) 80 6-29 by mouth [facility] MG tablet 23:38: daily. Medica l 15 [place] metoprolol Yes 12.5mg Take 12.[address] tartrate 6-29 mg by [facility] (LOPRESSOR 23:38: mouth. Medic al ORAL) 15 [place] atorvastati Yes 80mg QD Take [address] n (LIPITOR) 6-29 by mouth Luke s 80 MG 23:38: daily. Medical tablet 15 [place] famotidine Yes 20mg QD Take [address] (PEPCID) 20 6-29 by mouth Luke s MG tablet 23:38: daily. Medica l 15 [place] GABAPENTIN Yes 200mg QD Take [address] ORAL 6-29 mg by [facility] 23:38: mouth Medical 15 daily. [place] aspirin 81 Yes 81mg QD Take [address] MG EC 6-29 by mouth [facility] tablet 23:38: daily. Medical [address] [place] [address] aspirin 81 Yes 81mg QD Take [address] MG EC 6-29 by mouth [facility] tablet 23:38: daily. [address] metoprolol Yes 25mg QD Take [address] (TOPROL-XL) 6-29 by mouth Luke s 25 MG 24 hr 23:38: daily. Medi dragan tablet 15 [place] insulin Yes Inject [facility] 70/30, 6-29 subcutaneo [facility] insulin 23:38: usly 2 Medical NPH-insulin 15 (two) [place] regular, times (HumuLIN daily 70/30) 100 before unit/mL meals. (70-30) injection cloNIDine Yes .1mg Q.[id number] Take 0.[address] HCL 6-29 [id number] mg by [facility] (CATAPRES) 23:38: 3D mouth [...] MG 23:38: daily. Medical capsule 15 Center metoprolol Yes 25mg QD Take [address] (TOPROL-XL) 6-29 by mouth Luke s 25 MG 24 hr 23:38: daily. Medi dragan tablet 15 [place] furosemide Yes 80mg QD Take [address] (LASIX) 80 6-29 by mouth [facility] MG tablet 23:38: daily. Medica l 15 [place] metoprolol Yes 12.5mg Take 12.[address] tartrate 6-29 mg by [facility] (LOPRESSOR 23:38: mouth. Medic al ORAL) 15 [place] atorvastati Yes 80mg QD Take [address] n (LIPITOR) 6-29 by mouth Luke s 80 MG 23:38: daily. Medical tablet 15 [place] famotidine Yes 20mg QD Take [address] (PEPCID) 20 6-29 by mouth Luke s MG tablet 23:38: daily. Medica l 15 [place] GABAPENTIN Yes 200mg QD Take 200 [facility] [...] mouth [facility] tablet 23:38: daily. Medical 15 [place] metoprolol Yes 25mg QD Take [address] (TOPROL-XL) 6-29 by mouth Luke s 25 MG 24 hr 23:38: daily. Medi dragan tablet 15 Center insulin Yes Inject [facility] 70/30, 6-29 subcutaneo [facility] insulin 23:38: usly 2 Medical NPH-insulin 15 (two) Center regular, times (HumuLIN daily 70/30) 100 before unit/mL meals. (70-30) injection cloNIDine Yes .1mg Q.[id number] Take 0.[address] HCL 6-29 [id number] mg by [facility] (CATAPRES) 23:38: 3D mouth [...] 20 MG 23:38: daily. Medical capsule 15 [place] furosemide Yes 80mg QD Take [address] (LASIX) 80 6-29 by mouth [facility] MG tablet 23:38: daily. Medica l 15 [place] metoprolol Yes 12.5mg Take 12.[address] tartrate 6-29 mg by [facility] (LOPRESSOR 23:38: mouth. Medic al ORAL) 15 [place] cloNIDine Yes .1mg Q.[id number] Take 0.[address] HCL 6-29 [id number] mg by [facility] (CATAPRES) 23:38: 3D mouth [...] MG tablet 23:38: daily. Medica l 15 [place] GABAPENTIN 2021-0 Yes 200mg QD Take 200 [facility] I [...] unit/mL meals. (70-30) injection cloNIDine Yes .1mg Q.[id number] Take 0.[address] HCL 6-29 [id number] mg by [facility] (CATAPRES) 23:38: 3D mouth [...] MG tablet 23:38: daily. Medica l 15 [place] metoprolol Yes 12.5mg Take 12.[address] tartrate 6-29 mg by [facility] (LOPRESSOR 23:38: mouth. Medic al ORAL) 15 [place] atorvastati Yes 80mg QD Take [address] n (LIPITOR) 6-29 by mouth Luke s 80 MG 23:38: daily. Medical tablet 15 [place] famotidine Yes 20mg QD Take [address] (PEPCID) 20 6-29 by mouth Luke s MG tablet 23:38: daily. Medica l 15 [place] DULoxetine Yes 20mg QD Take [address] (CYMBALTA) 6-29 by mouth [facility] 20 MG 23:38: daily. Medical capsule 15 [place] GABAPENTIN Yes 200mg QD Take [address] ORAL 6-29 mg by [facility] 23:38: mouth Medical 15 daily. [place] furosemide Yes 80mg QD Take [address] (LASIX) 80 6-29 by mouth [facility] MG tablet 23:38: daily. Medica l 15 [place] aspirin 81 Yes 81mg QD Take [address] MG EC 6-29 by mouth [facility] tablet 23:38: daily. [address] metoprolol Yes 25mg QD Take [address] (TOPROL-XL) 6-29 by mouth Luke s 25 MG 24 hr 23:38: daily. Medi dragan tablet 15 [place] insulin Yes Inject [facility] 70/30, 6-29 [facility]: usly 2 [facility] NPH-insulin 15 (two) [facility] regular, times (HumuLIN daily 70/30) 100 before unit/mL meals. (70-30) injection metoprolol Yes 12.5mg Take 12.[address] [facility] tartrate 6-29 mg by [facility] (LOPRESSOR 23:38: mouth. Medic al ORAL) 15 [facility] cloNIDine Yes .1mg Q.[id number] Take 0.[address] [facility] HCL 6-29 [id number] mg by [facility] (CATAPRES) 23:38: 3D mouth [...] by [facility]: mouth Medical 15 daily. [facility] atorvastati Yes 80mg QD Take [address] [facility] (LIPITOR) 6-29 by mouth [facility] 80 MG 23:38: daily. Medical tablet 15 Center famotidine Yes 20mg QD Take [address] (PEPCID) 20 6-29 by mouth [facility] MG tablet 23:38: daily. Medica l 15 Center aspirin 81 Yes 81mg QD Take [address] MG EC 6-29 by mouth [facility] tablet 23:38: daily. Medical 15 Center metoprolol Yes 25mg QD Take [address] (TOPROL-XL) 6-29 by mouth [facility] 25 MG 24 hr 23:38: daily. Medi dragan tablet 15 [facility] insulin Yes Inject [facility] 70/30, 6-29 [facility]: usly 2 [facility] NPH-insulin 15 (two) Center regular, times (HumuLIN daily 70/30) 100 before unit/mL meals. (70-30) injection cloNIDine Yes .1mg Q.[id number] Take 0.[address] [facility] HCL 6-29 [id number] mg by [facility] (CATAPRES) 23:38: 3D mouth [...] [facility]: mouth Medical 15 daily. [facility] levothyroxi Yes 175ug Take [address] ne 6-29 mcg by [facility] (SYNTHROID, 23:38: mouth Medic al LEVOTHROID) 15 Every Center 175 MCG morning on tablet an empty stomach. DULoxetine Yes 20mg QD Take [address] (CYMBALTA) 6-29 by [facility] 20 MG 23:38: daily. Medical capsule 15 [facility] furosemide Yes 80mg QD Take [address] (LASIX) 80 6-29 by mouth [facility] tablet 23:38: daily. Medica l 15 [facility] metoprolol Yes 12.5mg Take 12.[address] [facility] [address] tartrate 6-29 mg by [facility] (LOPRESSOR 23:38: mouth. Medic al ORAL) 15 [facility] atorvastati Yes 80mg QD Take [address] [facility] (LIPITOR) 6-29 by mouth [facility] 80 MG 23:38: daily. Medical tablet 15 [facility] famotidine Yes 20mg QD Take [address] (PEPCID) 20 6-29 by mouth [facility] MG tablet 23:38: daily. Medica l 15 [facility] GABAPENTIN Yes 200mg QD Take [address] ORAL 6-29 mg by [facility] 23:[facility]: mouth Medical 15 daily. [facility] aspirin 81 Yes 81mg QD Take 81 [...] unit/mL meals. (70-30) injection cloNIDine Yes .1mg Q.[id number] Take 0.[address] [facility] HCL 6-29 [id number] mg by [facility] (CATAPRES) 23:38: 3D mouth [...] 20 MG 23:38: daily. Medical capsule 15 [facility] furosemide Yes 80mg QD Take [address] (LASIX) 80 6-29 by mouth [facility] tablet 23:38: daily. Medica l 15 Center metoprolol Yes 12.5mg Take 12.[address] [facility] [address] tartrate 6-29 mg by [facility] (LOPRESSOR 23:38: mouth. Medic al ORAL) 15 [facility] atorvastati Yes 80mg QD Take [address] [facility] n (LIPITOR) 6-29 by mouth [facility] 80 MG 23:38: daily. Medical tablet 15 Center famotidine Yes 20mg QD Take [address] (PEPCID) 20 6-29 by mouth [facility] MG tablet 23:38: daily. Medica l 15 [facility] GABAPENTIN Yes 200mg QD Take [address] ORAL 6-29 mg by [facility] 23:38: mouth Medical 15 daily. [facility] aspirin 81 Yes 81mg QD Take [address] MG EC 6-29 by mouth [facility] tablet 23:38: daily. Medical 15 [facility] metoprolol Yes 25mg QD Take [address] (TOPROL-XL) 6-29 by mouth [facility] 25 MG 24 hr 23:38: daily. Medi dragan tablet 15 Center insulin Yes Inject [facility] 70/30, 6-29 [facility]: usly 2 [facility] NPH-insulin 15 (two) Center regular, times (HumuLIN daily 70/30) 100 before unit/mL meals. (70-30) injection cloNIDine Yes .1mg Q.[id number] Take 0.[address] [facility] HCL 6-29 [id number] mg by [facility] (CATAPRES) 23:38: 3D mouth [...] 20 MG 23:38: daily. Medical capsule 15 [facility] furosemide Yes 80mg QD Take [address] (LASIX) 80 6-29 by mouth [facility] tablet 23:38: daily. Medica l 15 [facility] metoprolol Yes 12.5mg Take 12.[address] [facility] [address] tartrate 6-29 mg by [facility] (LOPRESSOR 23:38: mouth. Medic al ORAL) 15 [facility] atorvastati Yes 80mg QD Take [address] [facility] (LIPITOR) 6-29 by mouth [facility] 80 MG 23:38: daily. Medical tablet 15 [facility] famotidine Yes 20mg QD Take [address] (PEPCID) 20 6-29 by mouth [facility] MG tablet 23:38: daily. Medica l 15 [facility] GABAPENTIN Yes 200mg QD Take [address] ORAL 6-29 mg by [facility] 23:38: mouth Medical 15 daily. [facility] aspirin 81 Yes 81mg QD Take [address] MG EC 6-29 by mouth [facility] tablet 23:38: daily. Medical 15 [facility] metoprolol Yes 25mg QD Take [address] (TOPROL-XL) 6-29 by mouth [facility] 25 MG 24 hr 23:38: daily. Medi dragan tablet 15 [facility] insulin Yes Inject [facility] 70/30, 6-29 [facility]:38: usly 2 [facility] NPH-insulin 15 (two) Center regular, times (HumuLIN daily 70/30) 100 before unit/mL meals. (70-30) injection cloNIDine Yes .1mg Q.[id number] Take 0.[address] [facility] HCL 6-29 [id number] mg by [facility] (CATAPRES) 23:38: 3D mouth [...] 20 MG 23:38: daily. Medical capsule 15 [facility] furosemide Yes 80mg QD Take [address] (LASIX) 80 6-29 by mouth [facility] tablet 23:38: daily. Medica l 15 [facility] metoprolol Yes 12.5mg Take 12.[address] [facility] [address] tartrate 6-29 mg by [facility] (LOPRESSOR 23:38: mouth. Medic al ORAL) 15 Center atorvastati Yes 80mg QD Take [address] [facility] (LIPITOR) 6-29 by mouth [facility] 80 MG 23:38: daily. Medical tablet 15 [facility] famotidine Yes 20mg QD Take [address] (PEPCID) 20 6-29 by mouth [facility] MG tablet 23:38: daily. Medica l 15 [facility] GABAPENTIN Yes 200mg QD Take [address] ORAL 6-29 mg by [facility] 23:[facility]: mouth Medical 15 daily. [facility] aspirin 81 Yes 81mg QD Take [address] MG EC 6-29 by mouth [facility] tablet 23:38: daily. Medical 15 [facility] metoprolol Yes 25mg QD Take [address] (TOPROL-XL) 6-29 by mouth [facility] 25 MG 24 hr 23:38: daily. Medi dragan tablet 15 [facility] insulin Yes Inject [facility] 70/30, 6-29 [facility]:38: usly 2 [facility] NPH-insulin 15 (two) Center regular, times (HumuLIN daily 70/30) 100 before unit/mL meals. (70-30) injection cloNIDine Yes .1mg Q.[id number] Take 0.[address] [facility] HCL 6-29 [id number] mg by [facility] (CATAPRES) 23:38: 3D mouth [...] 20 MG 23:38: daily. Medical capsule 15 [facility] furosemide Yes 80mg QD Take [address] (LASIX) 80 6-29 by mouth [facility] tablet 23:38: daily. Medica l 15 [facility] metoprolol Yes 12.5mg Take 12.[address] [facility] [address] tartrate 6-29 mg by [facility] (LOPRESSOR 23:38: mouth. Medic al ORAL) 15 Center aspirin 81 Yes 81mg QD Take [...] unit/mL meals. (70-30) injection cloNIDine Yes .1mg Q.[id number] Take 0.[address] [facility] [address] HCL 6-29 [id number] mg [facility] (CATAPRES) 23:38: 3D mouth [...] MG tablet 23:38: daily. Medica l 15 [facility] metoprolol Yes 12.5mg Take 12.[address] [facility] [address] tartrate 6-29 mg by [facility] (LOPRESSOR 23:38: mouth. Medic al ORAL) 15 [facility] atorvastati Yes 80mg QD Take [address] [facility] (LIPITOR) 6-29 by mouth [facility] 80 MG 23:38: daily. Medical tablet 15 [facility] famotidine Yes 20mg QD Take [address] (PEPCID) 20 6-29 by mouth [facility] MG tablet 23:38: daily. Medica l 15 [facility] GABAPENTIN Yes 200mg QD Take [address] ORAL 6-29 mg by [facility] 23:[facility]: mouth Medical 15 daily. [facility] atorvastati Yes 80mg QD Take [address] [facility] (LIPITOR) 6-29 by mouth [facility] 80 MG 23:38: daily. Medical tablet 15 [facility] famotidine Yes 20mg QD Take [address] (PEPCID) 20 6-29 by mouth [facility] MG tablet 23:38: daily. Medica l 15 [facility] GABAPENTIN Yes 200mg QD Take [address] ORAL 6-29 mg by [facility] 23:38: mouth Medical 15 daily. [facility] aspirin 81 Yes 81mg QD Take [address] MG EC 6-29 by mouth [facility] tablet 23:38: daily. Medical 15 [facility] metoprolol Yes 25mg QD Take [address] (TOPROL-XL) 6-29 by mouth [facility] 25 MG 24 hr 23:38: daily. Medi dragan tablet 15 [facility] insulin Yes Inject [facility] 70/30, 6-29 [facility]:38: usly 2 [facility] NPH-insulin 15 (two) [facility] regular, times (HumuLIN daily 70/30) 100 before unit/mL meals. (70-30) injection cloNIDine Yes .1mg Q.[id number] Take 0.[address] [facility] HCL 6-29 [id number] mg by [facility] (CATAPRES) 23:38: 3D mouth [...] 20 MG 23:38: daily. Medical capsule 15 [facility] furosemide Yes 80mg QD Take [address] (LASIX) 80 6-29 by mouth [facility] tablet 23:38: daily. Medica l 15 Center metoprolol Yes 12.5mg Take 12.[address] [facility] [address] tartrate 6-29 mg by [facility] (LOPRESSOR 23:38: mouth. Medic al ORAL) 15 [facility] atorvastati Yes 80mg QD Take [address] [facility] (LIPITOR) 6-29 by mouth [facility] 80 MG 23:38: daily. Medical tablet 15 [facility] famotidine Yes 20mg QD Take [address] (PEPCID) 20 6-29 by mouth [facility] MG tablet 23:38: daily. Medica l 15 [facility] GABAPENTIN Yes 200mg QD Take [address] ORAL 6-29 mg by [facility] 23:38: mouth Medical 15 daily. [facility] aspirin 81 Yes 81mg QD Take [address] MG EC 6-29 by mouth [facility] tablet 23:38: daily. Medical 15 [facility] metoprolol Yes 25mg QD Take [address] (TOPROL-XL) 6-29 by mouth [facility] 25 MG 24 hr 23:38: daily. Medi dragan tablet 15 [facility] insulin Yes Inject [facility] 70/30, 6-29 [facility] 23:38: usly 2 [facility] NPH-insulin 15 (two) Center regular, times (HumuLIN daily 70/30) 100 before unit/mL meals. (70-30) injection cloNIDine Yes .1mg Q.[id number] Take 0.[address] [facility] [address] HCL 6-29 [id number] mg by [facility] (CATAPRES) 23:38: 3D mouth [...] 20 MG 23:38: daily. Medical capsule 15 [facility] furosemide Yes 80mg QD Take [address] (LASIX) 80 6-29 by mouth [facility] tablet 23:38: daily. Medica l 15 [facility] metoprolol Yes 12.5mg Take 12.[address] [facility] [address] tartrate 6-29 mg by [facility] (LOPRESSOR 23:38: mouth. Medic al ORAL) 15 [facility] atorvastati Yes 80mg QD Take [address] [facility] (LIPITOR) 6-29 by mouth [facility] 80 MG 23:38: daily. Medical tablet 15 [facility] famotidine Yes 20mg QD Take [address] (PEPCID) 20 6-29 by mouth [facility] MG tablet 23:38: daily. Medica l 15 [facility] GABAPENTIN Yes 200mg QD Take [address] ORAL 6-29 mg by [facility] 23:38: mouth Medical 15 daily. [facility] aspirin 81 Yes 81mg QD Take [address] MG EC 6-29 by mouth [facility] tablet 23:38: daily. Medical [address] [place] [address] metoprolol Yes 25mg QD Take [address] (TOPROL-XL) 6-29 by mouth [facility] 25 MG 24 hr 23:38: daily. Medi dragan tablet 15 [facility] insulin Yes Inject [facility] 70/30, 6-29 [facility] 23:38: usly 2 Medical NPH-insulin 15 (two) Center regular, times (HumuLIN daily 70/30) 100 before unit/mL meals. (70-30) injection cloNIDine Yes .1mg Q.[id number] Take 0.[address] [facility] HCL 6-29 [id number] mg by [facility] (CATAPRES) 23:38: 3D mouth [...] 20 MG 23:38: daily. Medical capsule 15 [facility] furosemide Yes 80mg QD Take [address] (LASIX) 80 6-29 by mouth [facility] tablet 23:38: daily. Medica l 15 [facility] metoprolol Yes 12.5mg Take 12.[address] [address] tartrate 6-29 mg by [facility] (LOPRESSOR 23:38: mouth. Medic al ORAL) 15 [facility] atorvastati Yes 80mg QD Take [address] [facility] (LIPITOR) 6-29 by mouth [facility] 80 MG 23:38: daily. Medical tablet 15 [facility] famotidine Yes 20mg QD Take [address] (PEPCID) 20 6-29 by mouth [facility] MG tablet 23:38: daily. Medica l 15 [facility] GABAPENTIN Yes 200mg QD Take [address] ORAL 6-29 mg by [facility] 23:38: mouth Medical 15 daily. [facility] aspirin 81 Yes 81mg QD Take [address] MG EC 6-29 by mouth [facility] tablet 23:38: daily. Medical 15 Center metoprolol Yes 25mg QD Take [address] (TOPROL-XL) 6-29 by mouth [facility] 25 MG 24 hr 23:38: daily. Medi dragan tablet 15 [facility] insulin Yes Inject [facility] 70/30, 6-29 [facility] 23:38: usly 2 Medical NPH-insulin 15 (two) Center regular, times (HumuLIN daily 70/30) 100 before unit/mL meals. (70-30) injection cloNIDine Yes .1mg Q.[id number] Take 0.[address] [facility] [address] HCL 6-29 [id number] mg by [facility] (CATAPRES) 23:38: 3D mouth [...] 20 MG 23:38: daily. Medical capsule 15 [facility] furosemide Yes 80mg QD Take [address] (LASIX) 80 6-29 by mouth [facility] tablet 23:38: daily. Medica l 15 [facility] metoprolol Yes 12.5mg Take 12.[address] tartrate 6-29 mg by [facility] (LOPRESSOR 23:38: mouth. Medic al ORAL) 15 [facility] atorvastati Yes 80mg QD Take [address] [facility] (LIPITOR) 6-29 by mouth [facility] 80 MG 23:38: daily. Medical tablet 15 [facility] famotidine Yes 20mg QD Take [address] (PEPCID) 20 6-29 by mouth [facility] MG tablet 23:38: daily. Medica l 15 [facility] GABAPENTIN Yes 200mg QD Take [address] ORAL 6-29 mg by [facility] 23:38: mouth Medical 15 daily. [facility] aspirin 81 Yes 81mg QD Take 81 [...] unit/mL meals. (70-30) injection cloNIDine Yes .1mg Q.[id number] Take 0.[address] [facility] [address] HCL 6-29 [id number] mg by [facility] (CATAPRES) 23:38: 3D mouth [...] 20 MG 23:38: daily. Medical capsule 15 [facility] furosemide Yes 80mg QD Take [address] (LASIX) 80 6-29 by mouth [facility] tablet 23:38: daily. Medica l 15 [facility] metoprolol Yes 12.5mg Take 12.[address] tartrate 6-29 mg by [facility] (LOPRESSOR 23:38: mouth. Medic al ORAL) 15 [facility] atorvastati Yes 80mg QD Take [address] [facility] n (LIPITOR) 6-29 by mouth [facility] 80 MG 23:38: daily. Medical tablet 15 [facility] famotidine Yes 20mg QD Take [address] (PEPCID) 20 6-29 by mouth [facility] MG tablet 23:38: daily. Medica l 15 [facility] GABAPENTIN Yes 200mg QD Take [address] ORAL 6-29 mg by [facility] 23:38: mouth Medical 15 daily. [facility] aspirin 81 Yes 81mg QD Take [address] MG EC 6-29 by mouth [facility] tablet 23:38: daily. Medical 15 [facility] metoprolol Yes 25mg QD Take [address] (TOPROL-XL) 6-29 by mouth [facility] 25 MG 24 hr 23:38: daily. Medi dragan tablet 15 Center insulin Yes Inject [facility] 70/30, 6-29 [facility] 23:38: usly 2 Medical NPH-insulin 15 (two) Center regular, times (HumuLIN daily 70/30) 100 before unit/mL meals. (70-30) injection cloNIDine Yes .1mg Q.[id number] Take 0.[address] [facility] [address] HCL 6-29 [id number] mg by [facility] (CATAPRES) 23:38: 3D mouth [...] 20 MG 23:38: daily. Medical capsule 15 [facility] furosemide Yes 80mg QD Take [address] (LASIX) 80 6-29 by mouth [facility] tablet 23:38: daily. Medica l 15 [facility] metoprolol Yes 12.5mg Take 12.[address] tartrate 6-29 mg by [facility] (LOPRESSOR 23:38: mouth. Medic al ORAL) 15 [facility] atorvastati Yes 80mg QD Take [address] [facility] (LIPITOR) 6-29 by mouth [facility] 80 MG 23:38: daily. Medical tablet 15 Center famotidine Yes 20mg QD Take [address] (PEPCID) 20 6-29 by mouth [facility] MG tablet 23:38: daily. Medica l 15 [facility] GABAPENTIN Yes 200mg QD Take [address] ORAL 6-29 mg by [facility] 23:38: mouth Medical 15 daily. Center aspirin 81 Yes 81mg QD Take [address] MG EC 6-29 by mouth [facility] tablet 23:38: daily. Medical 15 [facility] metoprolol Yes 25mg QD Take [address] (TOPROL-XL) 6-29 by mouth [facility] 25 MG 24 hr 23:38: daily. Medi dragan tablet 15 Center insulin Yes Inject [facility] 70/30, 6-29 [facility] 23:38: usly 2 Medical NPH-insulin 15 (two) Center regular, times (HumuLIN daily 70/30) 100 before unit/mL meals. (70-30) injection cloNIDine Yes .1mg Q.[id number] Take 0.[address] [facility] [address] HCL 6-29 [id number] mg by [facility] (CATAPRES) 23:38: 3D mouth [...] 20 MG 23:38: daily. Medical capsule 15 [facility] furosemide Yes 80mg QD Take [address] (LASIX) 80 6-29 by mouth [facility] MG tablet 23:38: daily. Medica l 15 [facility] metoprolol Yes 12.5mg Take 12.[address] tartrate 6-29 mg by [facility] (LOPRESSOR 23:38: mouth. Medic al ORAL) 15 [facility] atorvastati Yes 80mg QD Take [address] [facility] (LIPITOR) 6-29 by mouth [facility] 80 MG 23:38: daily. Medical tablet 15 [facility] famotidine Yes 20mg QD Take [address] (PEPCID) 20 6-29 by mouth [facility] MG tablet 23:38: daily. Medica l 15 Center GABAPENTIN Yes 200mg QD Take [address] ORAL 6-29 mg by [facility] 23:38: mouth Medical 15 daily. [facility] aspirin 81 Yes 81mg QD Take 81 [...] unit/mL meals. (70-30) injection cloNIDine Yes .1mg Q.[id number] Take 0.[address] [facility] [address] HCL 6-29 [id number] mg by [facility] (CATAPRES) 23:38: 3D mouth [...] MG 23:38: daily. Medical capsule 15 Center BD Insulin BD Insulin No [...] LEVOXYL) 00 l 150 mcg tablet insulin 2017-[address] [facility] [...] 100 MG le} 100 MG Immunizations Ordered Filled Immunization Date Status Comments Sourc e Immunization Name Name FLUZONE HIGH DOSE FLUZONE HIGH DOSE 2021-03-07 Completed [facility] OVER [facility] OVER 65 10:58:00 - [facility] FLUZONE HIGH DOSE FLUZONE HIGH DOSE 2021-03-07 Completed [facility] OVER 65 OVER 65 10:58:00 - [facility] FLUZONE HIGH DOSE FLUZONE HIGH DOSE 2021-03-07 Completed [facility] OVER 65 OVER 65 10:58:00 - [facility] FLUZONE HIGH DOSE FLUZONE HIGH DOSE 2021-03-07 Completed [facility] OVER 65 OVER 65 10:58:00 - [facility] FLUZONE HIGH DOSE FLUZONE HIGH DOSE 2021-03-07 Completed [facility] OVER 65 OVER 65 10:58:00 - [facility] FLUZONE HIGH DOSE FLUZONE HIGH DOSE 2021-03-07 Completed [facility] OVER 65 OVER 65 10:58:00 - [facility] FLUZONE HIGH DOSE FLUZONE HIGH DOSE 2021-03-07 Completed [facility] OVER 65 OVER 65 10:58:00 - [facility] FLUZONE HIGH DOSE FLUZONE HIGH DOSE 2021-03-07 Completed [facility] OVER 65 OVER 65 10:58:00 - [facility] FLUZONE HIGH DOSE FLUZONE HIGH DOSE 2021-03-07 Completed [facility] OVER 65 OVER 65 10:58:00 - [facility] FLUZONE HIGH DOSE FLUZONE HIGH DOSE 2021-03-07 Completed [facility] OVER 65 OVER 65 10:58:00 - [facility] FLUZONE HIGH DOSE FLUZONE HIGH DOSE 2021-03-07 Completed [facility] OVER 65 OVER 65 10:58:00 - [facility] FLUZONE HIGH DOSE FLUZONE HIGH DOSE 2021-03-07 Completed [facility] OVER 65 OVER 65 10:58:00 - [facility] FLUZONE HIGH DOSE FLUZONE HIGH DOSE 2021-03-07 Completed [facility] OVER 65 OVER 65 10:58:00 - [facility] FLUZONE HIGH DOSE FLUZONE HIGH DOSE 2021-03-07 Completed [facility] OVER 65 OVER 65 10:58:00 - [facility] FLUZONE HIGH DOSE FLUZONE HIGH DOSE 2021-03-07 Completed [facility] OVER 65 OVER 65 10:58:00 - [facility] FLUZONE HIGH DOSE FLUZONE HIGH DOSE 2021-03-07 Completed [facility] OVER 65 OVER 65 10:58:00 - [facility] COVID-19 Vaccine COVID-19 Vaccine 2020-04-14 [facility] 13:50:00 [facility] COVID-19 Vaccine COVID-19 Vaccine 2020-04-14 Com[facility] (Dmitry) 13:50:00 - [facility] COVID-19 Vaccine COVID-19 Vaccine 2020-04-14 Completed [facility] (Dmitry) 13:50:00 - [facility] COVID-19 Vaccine COVID-19 Vaccine 2020-04-14 Completed [facility] (Dmitry) 13:50:00 - [facility] COVID-19 Vaccine COVID-19 Vaccine 2020-04-14 Completed [facility] (Dmitry) 13:50:00 - [facility] COVID-19 Vaccine COVID-19 Vaccine 2020-04-14 Completed [facility] (Dmitry) 13:50:00 - [facility] COVID-19 Vaccine COVID-19 Vaccine 2020-04-14 Completed [facility] (Dmitry) 13:50:00 - [facility] COVID-19 Vaccine COVID-19 Vaccine 2020-04-14 Completed [facility] (Dmitry) 13:50:00 - [facility] COVID-19 Vaccine COVID-19 Vaccine 2020-04-14 Completed [facility] (Dmitry) 13:50:00 - [facility] COVID-19 Vaccine COVID-19 Vaccine 2020-04-14 Completed [facility] (Dmitry) 13:50:00 - [facility] COVID-19 Vaccine COVID-19 Vaccine 2020-04-14 Completed [facility] (Dmitry) 13:50:00 - [facility] COVID-19 Vaccine COVID-19 Vaccine 2020-04-14 Completed [facility] (Dmitry) 13:50:00 - [facility] COVID-19 Vaccine COVID-19 Vaccine 2020-04-14 Completed [facility] (Dmitry) 13:50:00 - [facility] COVID-19 Vaccine COVID-19 Vaccine 2020-04-14 Completed [facility] (Dmitry) 13:50:00 [facility] COVID-19 Vaccine COVID-19 Vaccine 2020-04-14 Completed [facility] (Dmitry) 13:50:00 - [facility] COVID-19 Vaccine COVID-19 Vaccine 2020-04-14 Completed [facility] ([facility]) (Dmitry) 13:50:00 - [facility] Influenza Three-TIV 2017-01-31 [facility]:00:00 [facility] Influenza Three-TIV 2017-01-31 [facility] 00:00:00 [facility] Influenza Three-TIV 2017-01-31 Com[facility] 00:00:00 [facility] Influenza Three-TIV 2017-01-31 [facility] 00:00:00 [facility] Influenza Three-TIV 2017-01-31 Com[facility] 00:00:00 [facility] Influenza Three-TIV 2017-01-31 Com[facility] 00:00:00 [facility] Influenza Three-TIV 2017-01-31 Com[facility] 00:00:00 [facility] Influenza Three-TIV 2017-01-31 Com[facility] 00:00:00 [facility] Influenza Three-TIV 2017-01-31 Com[facility] 00:00:00 [facility] Influenza Three-TIV 2017-01-31 Com[facility] 00:00:00 [facility] Influenza Three-TIV 2017-01-31 Com[facility] 00:00:00 [facility] Influenza Three-TIV 2017-01-31 Com[facility] 00:00:00 [facility] Influenza Three-TIV 2017-01-31 Com[facility] 00:00:00 [facility] Influenza Three-TIV 2017-01-31 Com[facility] 00:00:00 [facility] Influenza Three-TIV 2017-01-31 Com[facility] 00:00:00 [facility] Influenza Three-TIV 2017-01-31 Com[facility] 00:00:00 [facility] Influenza Three-TIV 2017-01-31 Com[facility] 00:00:00 [facility] Influenza Three-TIV 2017-01-31 Completed [facility] [...] 5+ YR 00:00:00 [facility] Influenza Three-TIV Unknown Com[facility] Vital Signs Vital Name Observation Time Observation Value Comments Source HEIGHT 2020-08-08 13:02:00 165.1 cm WEIGHT 2020-08-08 13:02:00 104.327 kg BP Diastolic 2022-05-28 00:00:00 72 mm[Hg] [facility]by Currie [facility] Height 2022-05-28 00:00:00 65 [in_i] [facility] Cur[facility] BMI (Body Mass Index) 2022-05-28 00:00:00 41.6 kg/m2 [facility] BP Systolic 2022-05-28 00:00:00 131 mm[Hg] Colby Currie [facility] Body Weight 2022-05-28 00:00:00 4000 [oz_av] [facility] Currie [facility] height 2022-01-01 13:20:00 64 [in_i] [facility] weight 2022-01-01 13:20:00 230 [lb_av] [facility] temperature 2022-01-01 13:20:00 97.4 [degF] [facility] bmi 2022-01-01 13:20:00 39.48 kg/m2 [facility] oximetry 2022-01-01 13:20:00 98 % [facility] respiratory rate 2022-01-01 13:20:00 17 /min Comm on [facility] blood pressure 2022-01-01 13:20:00 132 mm[Hg] Common [facility] - systolic [facility] blood pressure 2022-01-01 13:20:00 80 mm[Hg] [facility] height 2021-10-02 14:20:00 64 [in_i] [facility] weight 2021-10-02 14:20:00 230 [lb_av] [facility] temperature 2021-10-02 14:20:00 97.9 [degF] [facility] bmi 2021-10-02 14:20:00 39.48 kg/m2 [facility] oximetry 2021-10-02 14:20:00 97 % [facility] respiratory rate 2021-10-02 14:20:00 18 /min Comm on [facility] blood pressure 2021-10-02 14:20:00 138 mm[Hg] [facility] - systolic [facility] blood pressure 2021-10-02 14:20:00 86 mm[Hg] [facility] - diastolic [facility] height 2021-07-19 13:40:00 64 [in_i] [facility] weight 2021-07-19 13:40:00 230 [lb_av] [facility] temperature 2021-07-19 13:40:00 97.9 [degF] [facility] bmi 2021-07-19 13:40:00 39.48 kg/m2 [facility] oximetry 2021-07-19 13:40:00 97 % [facility] respiratory rate 2021-07-19 13:40:00 16 /min Comm on [facility] blood pressure 2021-07-19 13:40:00 161 mm[Hg] [facility] - systolic [facility] blood pressure 2021-07-19 13:40:00 90 mm[Hg] Common [facility] - diastolic [facility] height 2021-06-05 13:20:00 64 [in_i] [facility] weight 2021-06-05 13:20:00 230 [lb_av] [facility] temperature 2021-06-05 13:20:00 97.6 [degF] [facility] bmi 2021-06-05 13:20:00 39.48 kg/m2 [facility] oximetry 2021-06-05 13:20:00 96 % [facility] respiratory rate 2021-06-05 13:20:00 18 /min Comm on [facility] blood pressure 2021-06-05 13:20:00 142 mm[Hg] [facility] - systolic [facility] blood pressure 2021-06-05 13:20:00 70 mm[Hg] [facility] height 2021-04-27 10:40:00 64 [in_i] [facility] weight 2021-04-27 10:40:00 230 [lb_av] [facility] temperature 2021-04-27 10:40:00 97.7 [degF] [facility] bmi 2021-04-27 10:40:00 39.48 kg/m2 [facility] oximetry 2021-04-27 10:40:00 95 % [facility] respiratory rate 2021-04-27 10:40:00 18 /min Comm on [facility] blood pressure 2021-04-27 10:40:00 134 mm[Hg] [facility] - systolic [facility] blood pressure 2021-04-27 10:40:00 60 mm[Hg] [facility] blood pressure 2021-03-07 09:40:00 132 mm[Hg] [facility] - systolic [facility] blood pressure 2021-03-07 09:40:00 80 mm[Hg] [facility] - diastolic [facility] height 2021-03-07 09:40:00 64 [in_i] [facility] weight 2021-03-07 09:40:00 230 [lb_av] [facility] temperature 2021-03-07 09:40:00 98.1 [degF] [facility] bmi 2021-03-07 09:40:00 39.48 kg/m2 [facility] oximetry 2021-03-07 09:40:00 98 % [facility] respiratory rate 2021-03-07 09:40:00 16 /min Comm on [facility] height 2021-03-07 10:20:00 64 [in_i] [facility] weight 2021-03-07 10:20:00 230 [lb_av] [facility] temperature 2021-03-07 10:20:00 98.1 [degF] [facility] bmi 2021-03-07 10:20:00 39.48 kg/m2 [facility] oximetry 2021-03-07 10:20:00 98 % [facility] blood pressure 2021-03-07 10:20:00 132 mm[Hg] [facility] blood pressure 2021-03-07 10:20:00 80 mm[Hg] [facility] HEIGHT 2020-08-08 13:02:00 165.1 cm WEIGHT 2020-08-08 13:02:00 104.327 kg Procedures Procedure Date / Time Performing Clinician Source Performed Pacemaker 2020-08-08 00:00:00 [facility] Insertion of Tunneled [facility] Med ical Dialysis Catheter Using Fluoroscopic Guidance Parathyroidectomy [facility] Thyroidectomy [facility] Plan of Care Planned Activity Planned Date Details Comments Source Future Scheduled Test 2022-10-13 COVID-19 VACCINE (#1) [facility] 08:46:30 [code = COVID-19 VACCINE (#1)] Future Scheduled Test 2022-10-13 SHINGLES VACCINES (1 [facility] 08:46:30 of 2) [code = SHINGLES VACCINES (1 of 2)] Future Scheduled Test 2022-10-13 65+ PNEUMOCOCCAL [facility] 08:46:30 VACCINE (1 - PCV) [code = 65+ PNEUMOCOCCAL VACCINE (1 - PCV)] Future Scheduled Test 2022-10-13 INFLUENZA VACCINE [facility] 08:46:30 (#1) [code = INFLUENZA VACCINE (#1)] Future Scheduled Test 2022-10-13 COVID-19 VACCINE (#1) [facility] 08:46:30 [code = COVID-19 VACCINE (#1)] Future Scheduled Test 2022-10-13 SHINGLES VACCINES (1 [facility] 08:46:30 of 2) [code = SHINGLES VACCINES (1 of 2)] Future Scheduled Test 2022-10-13 65+ PNEUMOCOCCAL [facility] 08:46:30 VACCINE (1 - PCV) [code = 65+ PNEUMOCOCCAL VACCINE (1 - PCV)] Future Scheduled Test 2022-10-13 INFLUENZA VACCINE [facility] 08:46:30 (#1) [code = INFLUENZA VACCINE (#1)] Future Scheduled Test 2022-10-11 INFLUENZA VACCINE [...] Future Scheduled Test 2022-09-11 COVID-19 VACCINE (#1) [facility] 16:14:15 [code = COVID-19 VACCINE (#1)] Future Scheduled Test 2022-09-11 SHINGLES VACCINES (1 [facility] 16:14:15 of 2) [code = SHINGLES VACCINES (1 of 2)] Future Scheduled Test 2022-09-11 65+ PNEUMOCOCCAL [facility] 16:14:15 VACCINE (1 - PCV) [code = 65+ PNEUMOCOCCAL VACCINE (1 - PCV)] Future Scheduled Test 2022-09-11 INFLUENZA VACCINE [facility] 16:14:15 [code = INFLUENZA VACCINE] Future Scheduled Test 2022-09-11 COVID-19 VACCINE (#1) [facility] 16:14:15 [code = COVID-19 VACCINE (#1)] Future Scheduled Test 2022-09-11 SHINGLES VACCINES (1 [facility] 16:14:15 of 2) [code = SHINGLES VACCINES (1 of 2)] Future Scheduled Test 2022-09-11 65+ PNEUMOCOCCAL [facility] 16:14:15 VACCINE (1 - PCV) [code = 65+ PNEUMOCOCCAL VACCINE (1 - PCV)] Future Scheduled Test 2022-09-11 INFLUENZA VACCINE [facility] 16:14:15 [code = INFLUENZA VACCINE] Future Scheduled Test 2022-09-11 COVID-19 VACCINE (#1) [facility] 16:14:15 [code = COVID-19 VACCINE (#1)] Future Scheduled Test 2022-09-11 SHINGLES VACCINES (1 [facility] 16:14:15 of 2) [code = SHINGLES VACCINES (1 of 2)] Future Scheduled Test 2022-09-11 65+ PNEUMOCOCCAL [facility] 16:14:15 VACCINE (1 - PCV) [code = 65+ PNEUMOCOCCAL VACCINE (1 - PCV)] Future Scheduled Test 2022-09-11 INFLUENZA VACCINE [facility] 16:14:15 [code = INFLUENZA VACCINE] Future Scheduled Test 2022-09-11 COVID-19 VACCINE (#1) [facility] 16:14:15 [code = COVID-19 VACCINE (#1)] Future Scheduled Test 2022-09-11 SHINGLES VACCINES (1 [facility] 16:14:15 of 2) [code = SHINGLES VACCINES (1 of 2)] Future Scheduled Test 2022-09-11 65+ PNEUMOCOCCAL [facility] 16:14:15 VACCINE (1 - PCV) [code = 65+ PNEUMOCOCCAL VACCINE (1 - PCV)] Future Scheduled Test 2022-09-11 INFLUENZA VACCINE [facility] 16:14:15 [code = INFLUENZA VACCINE] Future Scheduled Test 2022-09-11 COVID-19 VACCINE (#1) [facility] 16:14:15 [code = COVID-19 VACCINE (#1)] Future Scheduled Test 2022-09-11 SHINGLES VACCINES (1 [facility] 16:14:15 of 2) [code = SHINGLES VACCINES (1 of 2)] Future Scheduled Test 2022-09-11 65+ PNEUMOCOCCAL [facility] 16:14:15 VACCINE (1 - PCV) [code = 65+ PNEUMOCOCCAL VACCINE (1 - PCV)] Future Scheduled Test 2022-09-11 INFLUENZA VACCINE [facility] 16:14:15 [code = INFLUENZA VACCINE] Future Scheduled Test 2022-09-11 COVID-19 VACCINE (#1) [facility] 16:14:15 [code = COVID-19 VACCINE (#1)] Future Scheduled Test 2022-09-11 SHINGLES VACCINES (1 [facility] 16:14:15 of 2) [code = SHINGLES VACCINES (1 of 2)] Future Scheduled Test 2022-09-11 65+ PNEUMOCOCCAL [facility] 16:14:15 VACCINE (1 - PCV) [code = 65+ PNEUMOCOCCAL VACCINE (1 - PCV)] Future Scheduled Test 2022-09-11 INFLUENZA VACCINE [facility] 16:14:15 [code = INFLUENZA VACCINE] Future Scheduled Test 2022-09-11 COVID-19 VACCINE (#1) [facility] 16:14:15 [code = COVID-19 VACCINE (#1)] Future Scheduled Test 2022-09-11 SHINGLES VACCINES (1 [facility] 16:14:15 of 2) [code = SHINGLES VACCINES (1 of 2)] Future Scheduled Test 2022-09-11 65+ PNEUMOCOCCAL [facility] 16:14:15 VACCINE (1 - PCV) [code = 65+ PNEUMOCOCCAL VACCINE (1 - PCV)] Future Scheduled Test 2022-09-11 INFLUENZA VACCINE [facility] 16:14:15 [code = INFLUENZA VACCINE] Future Scheduled Test 2022-09-11 COVID-19 VACCINE (#1) [facility] 16:14:15 [code = COVID-19 VACCINE (#1)] Future Scheduled Test 2022-09-11 SHINGLES VACCINES (1 [facility] 16:14:15 of 2) [code = SHINGLES VACCINES (1 of 2)] Future Scheduled Test 2022-09-11 65+ PNEUMOCOCCAL [facility] 16:14:15 VACCINE (1 - PCV) [code = 65+ PNEUMOCOCCAL VACCINE (1 - PCV)] Future Scheduled Test 2022-09-11 INFLUENZA VACCINE [facility] 16:14:15 [code = INFLUENZA VACCINE] Future Scheduled Test 2022-09-11 COVID-19 VACCINE (#1) [facility] 16:14:15 [code = COVID-19 VACCINE (#1)] Future Scheduled Test 2022-09-11 SHINGLES VACCINES (1 [facility] 16:14:15 of 2) [code = SHINGLES VACCINES (1 of 2)] Future Scheduled Test 2022-09-11 65+ PNEUMOCOCCAL [facility] 16:14:15 VACCINE (1 - PCV) [code = 65+ PNEUMOCOCCAL VACCINE (1 - PCV)] Future Scheduled Test 2022-09-11 INFLUENZA VACCINE [facility] 16:14:15 [code = INFLUENZA VACCINE] Future Scheduled Test 2022-09-11 COVID-19 VACCINE (#1) [facility] 16:14:15 [code = COVID-19 VACCINE (#1)] Future Scheduled Test 2022-09-11 SHINGLES VACCINES (1 [facility] 16:14:15 of 2) [code = SHINGLES VACCINES (1 of 2)] Future Scheduled Test 2022-09-11 65+ PNEUMOCOCCAL [facility] 16:14:15 VACCINE (1 - PCV) [code = 65+ PNEUMOCOCCAL VACCINE (1 - PCV)] Future Scheduled Test 2022-09-11 INFLUENZA VACCINE [facility] 16:14:15 [code = INFLUENZA VACCINE] Future Scheduled Test 2022-09-11 COVID-19 VACCINE (#1) [facility] 16:14:15 [code = COVID-19 VACCINE (#1)] Future Scheduled Test 2022-09-11 SHINGLES VACCINES (1 [facility] 16:14:15 of 2) [code = SHINGLES VACCINES (1 of 2)] Future Scheduled Test 2022-09-11 65+ PNEUMOCOCCAL [facility] 16:14:15 VACCINE (1 - PCV) [code = 65+ PNEUMOCOCCAL VACCINE (1 - PCV)] Future Scheduled Test 2022-09-11 INFLUENZA VACCINE [facility] 16:14:15 [code = INFLUENZA VACCINE] Future Scheduled Test 2022-09-11 COVID-19 VACCINE (#1) [facility] 16:14:15 [code = COVID-19 VACCINE (#1)] Future Scheduled Test 2022-09-11 SHINGLES VACCINES (1 [facility] 16:14:15 of 2) [code = SHINGLES VACCINES (1 of 2)] Future Scheduled Test 2022-09-11 65+ PNEUMOCOCCAL [facility] 16:14:15 VACCINE (1 - PCV) [code = 65+ PNEUMOCOCCAL VACCINE (1 - PCV)] Future Scheduled Test 2022-09-11 INFLUENZA VACCINE [facility] 16:14:15 [code = INFLUENZA VACCINE] Future Scheduled Test 2022-09-11 COVID-19 VACCINE (#1) [facility] 16:14:15 [code = COVID-19 VACCINE (#1)] Future Scheduled Test 2022-09-11 SHINGLES VACCINES (1 [facility] 16:14:15 of 2) [code = SHINGLES VACCINES (1 of 2)] Future Scheduled Test 2022-09-11 65+ PNEUMOCOCCAL [facility] 16:14:15 VACCINE (1 - PCV) [code = 65+ PNEUMOCOCCAL VACCINE (1 - PCV)] Future Scheduled Test 2022-09-11 INFLUENZA VACCINE [facility] 16:14:15 [code = INFLUENZA VACCINE] Future Scheduled Test 2022-08-01 COVID-19 VACCINE (#1) [facility] 09:52:10 [code = COVID-19 VACCINE (#1)] Future Scheduled Test 2022-08-01 SHINGLES VACCINES (1 [facility] 09:52:10 of 2) [code = SHINGLES VACCINES (1 of 2)] Future Scheduled Test 2022-08-01 65+ PNEUMOCOCCAL [facility] 09:52:10 VACCINE (1 - PCV) [code = 65+ PNEUMOCOCCAL VACCINE (1 - PCV)] Future Scheduled Test 2022-08-01 INFLUENZA VACCINE [facility] 09:52:10 [code = INFLUENZA VACCINE] Future Scheduled Test 2022-08-01 COVID-19 VACCINE (#1) [facility] 09:52:10 [code = COVID-19 VACCINE (#1)] Future Scheduled Test 2022-08-01 SHINGLES VACCINES (1 [facility] 09:52:10 of 2) [code = SHINGLES VACCINES (1 of 2)] Future Scheduled Test 2022-08-01 65+ PNEUMOCOCCAL [facility] 09:52:10 VACCINE (1 - PCV) [code = 65+ PNEUMOCOCCAL VACCINE (1 - PCV)] Future Scheduled Test 2022-08-01 INFLUENZA VACCINE [facility] 09:52:10 [code = INFLUENZA VACCINE] Future Scheduled Test 2022-08-01 COVID-19 VACCINE (#1) [facility] 09:52:10 [code = COVID-19 VACCINE (#1)] Future Scheduled Test 2022-08-01 SHINGLES VACCINES (1 [facility] 09:52:10 of 2) [code = SHINGLES VACCINES (1 of 2)] Future Scheduled Test 2022-08-01 65+ PNEUMOCOCCAL [facility] 09:52:10 VACCINE (1 - PCV) [code = 65+ PNEUMOCOCCAL VACCINE (1 - PCV)] Future Scheduled Test 2022-08-01 INFLUENZA VACCINE [facility] 09:52:10 [code = INFLUENZA VACCINE] Future Scheduled Test 2022-06-25 COVID-19 VACCINE (#1) [facility] 15:49:38 [code = COVID-19 VACCINE (#1)] Future Scheduled Test 2022-06-25 SHINGLES VACCINES (1 [facility] 15:49:38 of 2) [code = SHINGLES VACCINES (1 of 2)] Future Scheduled Test 2022-06-25 65+ PNEUMOCOCCAL [facility] 15:49:38 VACCINE (1 - PCV) [code = 65+ PNEUMOCOCCAL VACCINE (1 - PCV)] Future Scheduled Test 2022-06-25 INFLUENZA VACCINE [facility] 15:49:38 [code = INFLUENZA VACCINE] Future Scheduled Test 2022-06-25 COVID-19 VACCINE (#1) [facility] 15:49:38 [code = COVID-19 VACCINE (#1)] Future Scheduled Test 2022-06-25 SHINGLES VACCINES (1 [facility] 15:49:38 of 2) [code = SHINGLES VACCINES (1 of 2)] Future Scheduled Test 2022-06-25 65+ PNEUMOCOCCAL [facility] 15:49:38 VACCINE (1 - PCV) [code = 65+ PNEUMOCOCCAL VACCINE (1 - PCV)] Future Scheduled Test 2022-06-25 INFLUENZA VACCINE [facility] 15:49:38 [code = INFLUENZA VACCINE] Future Scheduled Test 2022-06-25 COVID-19 VACCINE (#1) [facility] 15:49:38 [code = COVID-19 VACCINE (#1)] Future Scheduled Test 2022-06-25 SHINGLES VACCINES (1 [facility] 15:49:38 of 2) [code = SHINGLES VACCINES (1 of 2)] Future Scheduled Test 2022-06-25 65+ PNEUMOCOCCAL [facility] 15:49:38 VACCINE (1 - PCV) [code = 65+ PNEUMOCOCCAL VACCINE (1 - PCV)] Future Scheduled Test 2022-06-25 INFLUENZA VACCINE [facility] 15:49:38 [code = INFLUENZA VACCINE] Future Scheduled Test 2022-06-25 COVID-19 VACCINE (#1) [facility] 15:49:38 [code = COVID-19 VACCINE (#1)] Future Scheduled Test 2022-06-25 SHINGLES VACCINES (1 [facility] 15:49:38 of 2) [code = SHINGLES VACCINES (1 of 2)] Future Scheduled Test 2022-06-25 65+ PNEUMOCOCCAL [facility] 15:49:38 VACCINE (1 - PCV) [code = 65+ PNEUMOCOCCAL VACCINE (1 - PCV)] Future Scheduled Test 2022-06-25 INFLUENZA VACCINE [facility] 15:49:38 [code = INFLUENZA VACCINE] Future Scheduled Test 2022-05-29 COVID-19 VACCINE (#1) [facility] 16:19:09 [code = COVID-19 VACCINE (#1)] Future Scheduled Test 2022-05-29 SHINGLES VACCINES (1 [facility] 16:19:09 of 2) [code = SHINGLES VACCINES (1 of 2)] Future Scheduled Test 2022-05-29 65+ PNEUMOCOCCAL [facility] 16:19:09 VACCINE (1 - PCV) [code = 65+ PNEUMOCOCCAL VACCINE (1 - PCV)] Future Scheduled Test 2022-05-29 INFLUENZA VACCINE [facility] 16:19:09 [code = INFLUENZA VACCINE] Future Scheduled Test 2022-05-29 COVID-19 VACCINE (#1) [facility] 16:19:09 [code = COVID-19 VACCINE (#1)] Future Scheduled Test 2022-05-29 SHINGLES VACCINES (1 [facility] 16:19:09 of 2) [code = SHINGLES VACCINES (1 of 2)] Future Scheduled Test 2022-05-29 65+ PNEUMOCOCCAL [facility] 16:19:09 VACCINE (1 - PCV) [code = 65+ PNEUMOCOCCAL VACCINE (1 - PCV)] Future Scheduled Test 2022-05-29 INFLUENZA VACCINE [facility] 16:19:09 [code = INFLUENZA VACCINE] Future Scheduled Test 2022-05-29 COVID-19 VACCINE (#1) [facility] 16:19:09 [code = COVID-19 VACCINE (#1)] Future Scheduled Test 2022-05-29 SHINGLES VACCINES (1 [facility] 16:19:09 of 2) [code = SHINGLES VACCINES (1 of 2)] Future Scheduled Test 2022-05-29 65+ PNEUMOCOCCAL [facility] 16:19:09 VACCINE (1 - PCV) [code = 65+ PNEUMOCOCCAL VACCINE (1 - PCV)] Future Scheduled Test 2022-05-29 INFLUENZA VACCINE [facility] 16:19:09 [code = INFLUENZA VACCINE] Future Scheduled Test 2022-03-08 COVID-19 VACCINE (#1) [facility] 05:54:06 [code = COVID-19 VACCINE (#1)] Future Scheduled Test 2022-03-08 SHINGLES VACCINES (1 [facility] 05:54:06 of 2) [code = SHINGLES VACCINES (1 of 2)] Future Scheduled Test 2022-03-08 65+ PNEUMOCOCCAL [facility] 05:54:06 VACCINE (1 - PCV) [code = 65+ PNEUMOCOCCAL VACCINE (1 - PCV)] Future Scheduled Test 2022-03-08 INFLUENZA VACCINE [facility] 05:54:06 [code = INFLUENZA VACCINE] Future Scheduled Test 2022-03-08 COVID-19 VACCINE (#1) [facility] 05:54:06 [code = COVID-19 VACCINE (#1)] Future Scheduled Test 2022-03-08 SHINGLES VACCINES (1 [facility] 05:54:06 of 2) [code = SHINGLES VACCINES (1 of 2)] Future Scheduled Test 2022-03-08 65+ PNEUMOCOCCAL [facility] 05:54:06 VACCINE (1 - PCV) [code = 65+ PNEUMOCOCCAL VACCINE (1 - PCV)] Future Scheduled Test 2022-03-08 INFLUENZA VACCINE [facility] 05:54:06 [code = INFLUENZA VACCINE] [...] 00:00:00 measurement [facility] Center (procedure) [code = [id number]] Future Scheduled Test 2017-08-[address] [facility] 00:00:00 measurement [facility] (procedure) [code = 19720369] Future Scheduled Test 2017-08-[address] [facility] 00:00:00 measurement [facility] (procedure) [code = 07603519] Future Scheduled Test 2017-08-[address] [facility] 00:00:00 measurement [facility] (procedure) [code = 23644357] Future Scheduled Test 2017-08-[address] [facility] 00:00:00 measurement [facility] (procedure) [code = 81891712] Future Scheduled Test 2017-08-[address] [facility] 00:00:00 measurement [facility] (procedure) [code = 32142021] Future Scheduled Test 2017-08-[address] [facility] 00:00:00 [facility] (procedure) [code = 62424310] Future Scheduled Test 2017-08-[address] [facility] 00:00:00 [facility] (procedure) [code = 63131202] Future Scheduled Test 2017-08-[address] [facility] 00:00:00 [facility] (procedure) [code = 01628089] Future Scheduled Test 2017-08-[address] [facility] 00:00:00 [facility] (procedure) [code = 06583806] Future Scheduled Test 2017-08-[address] [facility] 00:00:00 [facility] (procedure) [code = 15464542] Future Scheduled Test 2017-08-[address] [facility] 00:00:00 [facility] (procedure) [code = 20050156] Future Scheduled Test 2017-08-[address] [facility] 00:00:00 [facility] (procedure) [code = 34038579] Future Scheduled Test 2017-08-[address] [facility] 00:00:00 [facility] (procedure) [code = 76894792] Future Scheduled Test 2017-08-[address] [facility] 00:00:00 measurement [facility] (procedure) [code = 07824058] Future Scheduled Test 2017-08-[address] [facility] 00:00:00 measurement [facility] (procedure) [code = 32868620] Future Scheduled Test 2017-08-[address] [facility] 00:00:00 measurement [facility] (procedure) [code = 76188876] Future Scheduled Test 2017-08-[address] [facility] 00:00:00 [facility] (procedure) [code = 47636078] Future Scheduled Test 2017-08-[address] [facility] 00:00:00 measurement [facility] (procedure) [code = 42316674] Future Scheduled Test 2017-08-[address] [facility] 00:00:00 measurement [facility] (procedure) [code = 29606086] Future Scheduled Test 2017-08-[address] [facility] 00:00:00 measurement [facility] (procedure) [code = 18301716] Future Scheduled Test 2017-08-[address] [facility] 00:00:00 measurement [facility] (procedure) [code = 22787031] Future Scheduled Test 2017-08-[address] [facility] 00:00:00 measurement [facility] (procedure) [code = 12046907] Future Scheduled Test 2017-08-[address] [facility] 00:00:00 measurement [facility] (procedure) [code = 68037027] Future Scheduled Test 2017-08-[address] [facility] 00:00:00 measurement [facility] (procedure) [code = 43288902] Future Scheduled Test 2017-08-[address] [facility] 00:00:00 measurement [facility] (procedure) [code = 21514286] Future Scheduled Test 2017-08-[address] [facility] 00:00:00 measurement [facility] (procedure) [code = 71318620] Future Scheduled Test 2017-08-[address] [facility] 00:00:00 measurement [facility] (procedure) [code = 92573814] Future Scheduled Test 2017-08-[address] [facility] 00:00:00 measurement [facility] (procedure) [code = 82486736] Future Scheduled Test 2017-08-[address] [facility] 00:00:00 measurement [facility] (procedure) [code = 21087667] Future Scheduled Test 2017-02-11 MEDICARE ANNUAL [facility] [...] 00:00:00 (1 - Tdap) [code = Medical enter DTAP/TDAP/TD VACCINES (1 - Tdap)] Future [...] 00:00:00 examination Medical Center (regime/therapy) [code = 733159706] Future Scheduled Test 1951-08-13 Urine screening for [facility] 00:00:00 protein (procedure) [facility] Center [code = 603737556] Future Scheduled Test 1951-08-13 DIABETIC EYE EXAM [facility] 00:00:00 [code = DIABETIC EYE [facility] Center EXAM] Future Scheduled Test 1951-08-13 Diabetic foot [facility] 00:[facility] examination [facility] (regime/therapy) [code = 506232834] Future Scheduled Test 1951-08-13 Urine screening for [facility] 00:00:00 protein (procedure) [facility] Center [code = 304952996] Future Scheduled Test 1951-08-13 DIABETIC EYE EXAM [facility] 00:00:00 [code = DIABETIC EYE [facility] Center EXAM] Future Scheduled Test 1951-08-13 Diabetic foot [facility] 00:00:00 examination [facility] (regime/therapy) [code = 693003346] Future Scheduled Test 1951-08-13 Urine screening for [facility] 00:00:00 protein (procedure) [facility] Center [code = 370231479] Future Scheduled Test 1951-08-13 DIABETIC EYE EXAM [facility] 00:00:00 [code = DIABETIC EYE [facility] Center EXAM] Future Scheduled Test 1951-08-13 Diabetic foot [facility] 00:00:00 examination [facility] (regime/therapy) [code = 097917331] Future Scheduled Test 1951-08-13 Urine screening for [facility] 00:00:00 protein (procedure) [facility] Center [code = 334649807] Future Scheduled Test 1951-08-13 DIABETIC EYE EXAM [facility] 00:00:00 [code = DIABETIC EYE [facility] Center EXAM] Future Scheduled Test 1951-08-13 Diabetic foot [facility] 00:00:00 examination [facility] (regime/therapy) [code = 708796614] Future Scheduled Test 1951-08-13 Urine screening for [facility] 00:00:00 protein (procedure) [facility] Center [code = 261327039] Future Scheduled Test 1951-08-13 DIABETIC EYE EXAM [facility] 00:00:00 [code = DIABETIC EYE [facility] EXAM] Future Scheduled Test 1951-08-13 Diabetic foot [facility] 00:00:00 examination [facility] Center (regime/therapy) [code = 360008941] Future Scheduled Test 1951-08-13 DIABETIC EYE EXAM [facility] 00:00:00 [code = DIABETIC EYE [facility] EXAM] Future Scheduled Test 1951-08-13 Diabetic foot [facility] 00:00:00 examination [facility] (regime/therapy) [code = 765199167] Future Scheduled Test 1951-08-13 Urine screening for [facility] 00:00:00 protein (procedure) [facility] Center [code = 137868259] Future Scheduled Test 1951-08-13 Urine screening for [facility] 00:00:00 protein (procedure) [facility] Center [code = 806834799] Future Scheduled Test 1951-08-13 DIABETIC EYE EXAM [facility] 00:00:00 [code = DIABETIC EYE [facility] EXAM] Future Scheduled Test 1951-08-13 Diabetic foot [facility] 00:00:00 examination [facility] Center (regime/therapy) [code = 362368703] Future Scheduled Test 1951-08-13 Urine screening for [facility] 00:00:00 protein (procedure) [facility] Center [code = 568599453] Future Scheduled Test 1951-08-13 DIABETIC EYE EXAM [facility] 00:00:00 [code = DIABETIC EYE [facility] EXAM] Future Scheduled Test 1951-08-13 Diabetic foot [facility] 00:00:00 examination [facility] (regime/therapy) [code = 776155051] Future Scheduled Test 1951-08-13 Urine screening for [facility] 00:00:00 protein (procedure) [facility] Center [code = 375431798] Future Scheduled Test 1951-08-13 DIABETIC EYE EXAM [facility] 00:00:00 [code = DIABETIC EYE [facility] Center EXAM] Future Scheduled Test 1951-08-13 Diabetic foot [facility] 00:00:00 examination [facility] Center (regime/therapy) [code = 708596972] Future Scheduled Test 1951-08-13 Urine screening for [facility] 00:00:00 protein (procedure) Medical Center [code = 839113691] Future Scheduled Test 1951-08-13 DIABETIC EYE EXAM [facility] 00:[facility]00 [code = DIABETIC EYE [facility] EXAM] Future Scheduled Test 1951-08-13 Diabetic foot [facility] examination Medical Center (regime/therapy) [code = 478060583] Future Scheduled Test 1951-08-13 Urine screening for [facility] 00:00:00 protein (procedure) Medical Center [code = 351918754] Future Scheduled Test 1951-08-13 DIABETIC EYE EXAM [facility] 00:00:00 [code = DIABETIC EYE Medical Center EXAM] Future Scheduled Test 1951-08-13 Diabetic foot [facility] 00:[facility] examination Medical Center (regime/therapy) [code = 507976024] Future Scheduled Test 1951-08-13 Urine screening for [facility] 00:00:00 protein (procedure) Medical Center [code = 401225776] Future Scheduled Test 1951-08-13 DIABETIC EYE EXAM [facility] 00:00:00 [code = DIABETIC EYE Medical Center EXAM] Future Scheduled Test 1951-08-13 Diabetic foot [facility] 00:[facility]:00 examination [facility] Center (regime/therapy) [code = 626959706] Future Scheduled Test 1951-08-13 Urine screening for [facility] 00:00:00 protein (procedure) Medical Center [code = 349153265] Future Scheduled Test 1951-08-13 DIABETIC EYE EXAM [facility] 00:00:00 [code = DIABETIC EYE Medical Center EXAM] Future Scheduled Test 1951-08-13 Diabetic foot [facility] 00:[facility]:00 examination Medical Center (regime/therapy) [code = 543547462] Future Scheduled Test 1951-08-13 Urine screening for [facility] 00:00:00 protein (procedure) Medical Center [code = 835051163] Future Scheduled Test 1951-08-13 DIABETIC EYE EXAM [facility] 00:00:00 [code = DIABETIC EYE Medical Center EXAM] Future Scheduled Test 1951-08-13 Diabetic foot [facility] 00:[facility]:00 examination Medical Center (regime/therapy) [code = 494851162] Future Scheduled Test 1951-08-13 Urine screening for [facility] 00:00:00 protein (procedure) Medical Center [code = 552240421] Future Scheduled Test 1951-08-13 DIABETIC EYE EXAM [facility] 00:00:00 [code = DIABETIC EYE Medical Center EXAM] Future Scheduled Test 1951-08-13 Diabetic foot [facility] 00:[facility]:00 examination Medical Center (regime/therapy) [code = 347671786] Future Scheduled Test 1951-08-13 Urine screening for [facility] 00:00:00 protein (procedure) Medical Center [code = 773514469] Future Scheduled Test 1951-08-13 DIABETIC EYE EXAM [facility] 00:00:00 [code = DIABETIC EYE Medical Center EXAM] Future Scheduled Test 1951-08-13 Diabetic foot [facility] 00:[facility]:00 examination Medical Center (regime/therapy) [code = 065500795] Future Scheduled Test 1951-08-13 DIABETIC EYE EXAM [facility] 00:00:00 [code = DIABETIC EYE [facility] Center EXAM] Future Scheduled Test 1951-08-13 Diabetic foot [facility] 00:[facility]:00 examination [facility] Center (regime/therapy) [code = 400545594] Future Scheduled Test 1951-08-13 Urine screening for [facility] 00:00:00 protein (procedure) Medical Center [code = 659150840] Future Scheduled Test 1951-08-13 Urine screening for [facility] 00:00:00 protein (procedure) Medical Center [code = 127120607] Future Scheduled Test 1951-08-13 DIABETIC EYE EXAM [facility] 00:00:00 [code = DIABETIC EYE Medical Center EXAM] Future Scheduled Test 1951-08-13 Diabetic foot [facility] 00:[facility]:00 examination Medical Center (regime/therapy) [code = 052121708] Future Scheduled Test 1951-08-13 Urine screening for [facility] 00:00:00 protein (procedure) Medical Center [code = 665034168] Future Scheduled Test 1951-08-13 DIABETIC EYE EXAM [facility] 00:00:00 [code = DIABETIC EYE Medical Center EXAM] Future Scheduled Test 1951-08-13 Diabetic foot [facility] 00:[facility]:00 examination Medical Center (regime/therapy) [code = 964226349] Future Scheduled Test 1951-08-13 Urine screening for [facility] 00:00:00 protein (procedure) Medical Center [code = 068764209] Future Scheduled Test 1951-08-13 DIABETIC EYE EXAM [facility] 00:00:00 [code = DIABETIC EYE Medical Center EXAM] Future Scheduled Test 1951-08-13 Diabetic foot [facility] 00:[facility]:00 examination Medical Center (regime/therapy) [code = 946018449] Future Scheduled Test 1951-08-13 Urine screening for [facility] 00:00:00 protein (procedure) Medical Center [code = 572466736] Future Scheduled Test 1951-08-13 DIABETIC EYE EXAM [facility] 00:00:00 [code = DIABETIC EYE Medical Center EXAM] Future Scheduled Test 1951-08-13 Diabetic foot [facility] 00:[facility]:00 examination Medical Center (regime/therapy) [code = 800959961] Future Scheduled Test 1951-08-13 Urine screening for [facility] 00:00:00 protein (procedure) Medical Center [code = 379190733] Future Scheduled Test 1951-08-13 DIABETIC EYE EXAM [facility] 00:00:00 [code = DIABETIC EYE Medical Center EXAM] Future Scheduled Test 1951-08-13 Diabetic foot [facility] 00:[facility] examination Medical Center (regime/therapy) [code = 727960288] Future Scheduled Test 1951-08-13 Urine screening for [facility] 00:00:00 protein (procedure) Medical Center [code = 394991550] Future Scheduled Test 1951-08-13 DIABETIC EYE EXAM [facility] 00:00:00 [code = DIABETIC EYE Medical Center EXAM] Future Scheduled Test 1951-08-13 Diabetic foot [facility] 00:[facility]:00 examination Medical Center (regime/therapy) [code = 455957967] Future Scheduled Test 1951-08-13 Urine screening for [facility] 00:00:00 protein (procedure) Medical Center [code = 905445284] Future Scheduled Test 1951-08-13 DIABETIC EYE EXAM [facility] 00:00:00 [code = DIABETIC EYE Medical Center EXAM] Future Scheduled Test 1951-08-13 Diabetic foot [facility] 00:[facility]:00 examination Medical Center (regime/therapy) [code = 701252139] Future Scheduled Test 1951-08-13 Urine screening for [facility] 00:00:00 protein (procedure) Medical Center [code = 939891963] Future Scheduled Test 1951-08-13 DIABETIC EYE EXAM [facility] 00:00:00 [code = DIABETIC EYE Medical Center EXAM] Future Scheduled Test 1951-08-13 Diabetic foot [facility] 00:[facility]:00 examination Medical Center (regime/therapy) [code = 586669847] Future Scheduled Test 1951-08-13 Urine screening for [facility] 00:00:00 protein (procedure) Medical Center [code = 059576771] Future Scheduled Test 1951-08-13 DIABETIC EYE EXAM [facility] 00:00:00 [code = DIABETIC EYE Medical Center EXAM] Future Scheduled Test 1951-08-13 Diabetic foot [facility] 00:[facility]:00 examination Medical Center (regime/therapy) [code = 778698103] Future Scheduled Test 1951-08-13 Urine screening for [facility] 00:00:00 protein (procedure) Medical Center [code = 706835739] Future Scheduled Test 1951-08-13 DIABETIC EYE EXAM [facility] 00:00:00 [code = DIABETIC EYE Medical Center EXAM] Future Scheduled Test 1951-08-13 Diabetic foot [facility] 00:00:00 examination Medical Center (regime/therapy) [code = 543487740] Future Scheduled Test 1951-08-13 DIABETIC EYE EXAM [facility] 00:00:00 [code = DIABETIC EYE Medical Center EXAM] Future Scheduled Test 1951-08-13 Diabetic foot [facility] 00:[facility]:00 examination Medical Center (regime/therapy) [code = 308828137] Future Scheduled Test 1951-08-13 Urine screening for [facility] 00:00:00 protein (procedure) Medical Center [code = 940750678] Future Scheduled Test 1951-08-13 Urine screening for [facility] 00:00:00 protein (procedure) Medical Center [code = 761266652] Future Scheduled Test 1951-08-13 DIABETIC EYE EXAM [facility] 00:00:00 [code = DIABETIC EYE Medical Center EXAM] Future Scheduled Test 1951-08-13 Diabetic foot [facility] 00:[facility]:00 examination Medical Center (regime/therapy) [code = 339975968] Future Scheduled Test 1951-08-13 Urine screening for [facility] 00:00:00 protein (procedure) Medical Center [code = 658023231] Future Scheduled Test 1946-08-13 PNEUMOCOCCAL 65+ YRS [...] = DXA [facility] 00:00:00 SCAN] [facility] Future Scheduled Test 1940 DXA SCAN [code = DXA [facility] 00:00:00 SCAN] [facility] Future Scheduled Test 1940 DXA SCAN [code = DXA [facility] 00:00:00 SCAN] [facility] Future Scheduled Test 1941 DXA SCAN [code = DXA [facility] 00:00:00 SCAN] [facility] Future Scheduled Test 1941 DXA SCAN [code = DXA [facility] 00:00:00 SCAN] [facility] Future Scheduled Test 1941 DXA SCAN [code = DXA [facility] 00:00:00 SCAN] [facility] Future Scheduled Test 1941 DXA SCAN [code = DXA [facility] 00:00:00 SCAN] [facility] Future Scheduled Test 1941 DXA SCAN [code = DXA [facility] 00:00:00 SCAN] [facility] Future Scheduled Test 1941 DXA SCAN [code = DXA [facility] 00:00:00 SCAN] [facility] Future Scheduled Test 1941 DXA SCAN [code = DXA [facility] 00:00:00 SCAN] [facility] Future Scheduled Test 1941 DXA SCAN [code = DXA [facility] 00:00:00 SCAN] Medical Center Future Scheduled Test 1941 DXA SCAN [code = DXA [facility] 00:00:00 SCAN] [facility] Future Scheduled Test 1941 DXA SCAN [code = DXA [facility] 00:00:00 SCAN] [facility] Future Scheduled Test 1941 DXA SCAN [code = DXA [facility] 00:00:00 SCAN] [facility] Future Scheduled Test 1941 DXA SCAN [code = DXA [facility] 00:00:00 SCAN] [facility] Future Scheduled Test 1941 DXA SCAN [code = DXA [facility] 00:00:00 SCAN] [facility] Future Scheduled Test 1941 DXA SCAN [code = DXA [facility] 00:00:00 SCAN] Medical Center Future Scheduled Test 1941 DXA SCAN [code = DXA [facility] 00:00:00 SCAN] Medical Center Future Scheduled Test 1941 DXA SCAN [code = DXA [facility] 00:00:00 SCAN] [facility] Future Scheduled Test 1941 DXA SCAN [code = DXA [facility] 00:00:00 SCAN] [facility] Future Scheduled Test 1941 DXA SCAN [code = DXA [facility] 00:00:00 SCAN] [facility] Future Scheduled Test 1941 DXA SCAN [code = DXA [facility] 00:00:00 SCAN] [facility] Future Scheduled Test 1941 DXA SCAN [code = DXA [facility] 00:00:00 SCAN] [facility] Future Scheduled Test 1941 DXA SCAN [code = DXA [facility] 00:00:00 SCAN] [facility] Future Scheduled Test 1941 DXA SCAN [code = DXA [facility] 00:00:00 SCAN] [facility] Future Scheduled Test 1941 DXA SCAN [code = DXA [facility] 00:00:00 SCAN] [facility] Future Scheduled Test 1941 DXA SCAN [code = DXA [facility] 00:00:00 SCAN] [facility] Future Scheduled Test 1941 DXA SCAN [code = DXA [facility] 00:00:00 SCAN] [facility] Future Scheduled Test 1941 DXA SCAN [code = DXA [facility] 00:00:00 SCAN] [facility] Future Scheduled Test 1941 DXA SCAN [code = DXA [facility] 00:00:00 SCAN] [facility] Future Appointment 2027-06-05 Nannette Sylvester [address] [place] [address] 00:00:00 [facility] , [place] [address] Encounters Start End Encounter Admission Attending Care Care Encounter Source Date/Time Date/Time Type Type Clinicians Facility Department ID 2022-04-11 Outpatient JESUSITA Pate [id number] Common 15:39:00 Jacqui [id number] [facility] 2022-03-18 Outpatient JESUSITA Pate [facility] [id number] Common 10:09:03 Jacqui [id number] [facility] 2022-03-04 Outpatient [place], STLMLC STL[facility]C [id number] Common 14:03:03 Jacqui [id number] [facility] 2022-02-27 Outpatient [place], STLMLC STLMLC [id number] Common 09:36:03 Jacqui [id number] [facility] 2022-02-12 Outpatient [place], STLMLC STLMLC [id number] Common 10:34:01 Jacqui [facility] 2021-09-28 Outpatient [place], STLMLC STLMLC [id number] Common 11:23:02 Jacqui [facility] 2021-08-28 Outpatient [place], STLMLC STLMLC [id number] Common 10:04:02 Jacqui [facility] 2021-07-17 Outpatient [place], STLMLC STLMLC [id number] Common 11:12:01 Ajcqui [facility] 2021-06-06 Outpatient [place], STLMLC STLMLC [id number] Common 07:42:01 Jacqui [facility] 2021-04-25 Outpatient [place], STLMLC STLMLC [id number] Common 09:14:02 Jacqui [facility] 2021-03-14 Outpatient [place], STLMLC STLMLC [id number] Common 13:05:01 Jacqui [facility] 2021-03-07 Outpatient [place], STLMLC STLMLC [id number] Common 14:40:28 Jacqui [facility] 2020-11-19 Outpatient KACIE FISCHER [facility] Surgery [id number] SLE 02:33:02 2022-10-29 2022-10-29 Outpatient [facility] PRIV PRIV [id number] [facility] 00:00:00 00:00:00 d_J [id number] Medica l 2022-10-29 2022-10-29 Outpatient [facility] PRIV PRIV 272 [id number] [facility] 00:00:00 00:00:00 d_J [id number] Medica l 2022-10-13 2022-10-13 Outpatient [facility] PRIV PRIV 272 [id number] [facility] 00:00:00 00:00:00 d_J [id number] Medica l 2022-10-13 2022-10-13 Outpatient [facility] PRIV PRIV 272 [id number] [facility] 00:00:00 00:00:00 d_J [id number] Medica l 2022-09-25 2022-09-25 Outpatient [facility] PRIV PRIV 272 [id number] [facility] 00:00:00 00:00:00 d_J [id number] Medica l 2022-09-25 2022-09-25 Outpatient [facility] PRIV PRIV 272 [id number] [facility] 00:00:00 00:00:00 d_J [id number] Medica l 2022-09-04 2022-09-04 Outpatient [facility] PRIV PRIV [id number] [facility] 00:00:00 00:00:00 d_J [id number] Medica l 2022-09-04 2022-09-04 Outpatient [facility] PRIV PRIV [id number] [facility] 00:00:00 00:00:00 d_J [id number] Medica l 2022-09-04 2022-09-04 Outpatient [facility] PRIV PRIV [id number] [facility] 00:00:00 00:00:00 d_J [id number] Medica l 2022-09-04 2022-09-04 Outpatient [facility] PRIV PRIV 272 [id number] [facility] 00:00:00 00:00:00 d_J [id number] Medica l 2022-09-04 2022-09-04 Outpatient [facility] PRIV PRIV 272 [id number] [facility] 00:00:00 00:00:00 d_J [id number] Medica l 2022-09-04 2022-09-04 Outpatient [facility] PRIV PRIV [id number] [facility] 00:00:00 00:00:00 d_J [id number] Medica l 2022-09-04 2022-09-04 Outpatient [facility] PRIV PRIV [id number] [facility] 00:00:00 00:00:00 d_J [id number] Medica l 2022-09-03 2022-09-03 Outpatient [facility] PRIV PRIV [id number] [facility] 00:00:00 00:00:00 d_J [id number] Medica l 2022-08-03 2022-08-03 Outpatient [facility] PRIV PRIV [id number] [facility] 00:00:00 00:00:00 d_J [id number] Medica l 2022-08-03 2022-08-03 Outpatient [facility] PRIV PRIV 272 [id number] [facility] 00:00:00 00:00:00 d_Jessy [id number] Medica l 2022-08-03 2022-08-03 Outpatient [facility] PRIV PRIV [id number] [facility] 00:00:00 00:00:00 d_J [id number] Medica l 2022-08-03 2022-08-03 Outpatient [facility] PRIV PRIV [id number] [facility] 00:00:00 00:00:00 d_J [id number] Medica l 2022-08-03 2022-08-03 Outpatient [facility] PRIV PRIV [id number] [facility] 00:00:00 00:00:00 d_J [id number] Medica l 2022-08-03 2022-08-03 Outpatient [facility] PRIV PRIV [id number] [facility] 00:00:00 00:00:00 d_J [id number] Medica l 2022-08-03 2022-08-03 Outpatient [facility] PRIV PRIV [id number] [facility] 00:00:00 00:00:00 d_J [id number] Medica l 2022-08-02 2022-08-02 Outpatient [facility] PRIV PRIV [id number] [facility] 00:00:00 00:00:00 d_J [id number] Medica l 2022-07-18 2022-07-18 Outpatient [facility] PRIV PRIV [id number] [facility] 00:00:00 00:00:00 d_J [id number] Medica l 2022-07-18 2022-07-18 Outpatient [facility] PRIV PRIV [id number] [facility] 00:00:00 00:00:00 d_J [id number] Medica l 2022-07-18 2022-07-18 Outpatient [facility] PRIV PRIV 272 [id number] [facility] 00:00:00 00:00:00 d_J [id number] Medica l 2022-07-18 2022-07-18 Outpatient [facility] PRIV PRIV 272 [id number] [facility] 00:00:00 00:00:00 d_J [id number] Medica l 2022-07-02 2022-07-02 Outpatient [facility] PRIV PRIV [id number] [facility] 00:00:00 00:00:00 d_J [id number] Medica l 2022-07-02 2022-07-02 Outpatient [facility] PRIV PRIV [id number] [facility] 00:00:00 00:00:00 d_J [id number] Medica l 2022-07-02 2022-07-02 Outpatient [facility] PRIV PRIV [id number] [facility] 00:00:00 00:00:00 d_J [id number] Medica l 2022-07-02 2022-07-02 Outpatient [facility] PRIV PRIV [id number] [facility] 00:00:00 00:00:00 d_J [id number] Medica l 2022-07-02 2022-07-02 Outpatient [facility] PRIV PRIV 272 [id number] [facility] 00:00:00 00:00:00 d_J [id number] Medica l 2022-06-28 2022-06-28 Outpatient [facility] PRIV PRIV [id number] [facility] 00:00:00 00:00:00 d_J [id number] Medica l 2022-06-28 2022-06-28 Outpatient [facility] PRIV PRIV 272 [id number] [facility] 00:00:00 00:00:00 d_J [id number] Medica l 2022-06-14 2022-06-14 Outpatient [facility] PRIV PRIV [id number] [facility] 00:00:00 00:00:00 d_J [id number] Medica l 2022-06-14 2022-06-14 Outpatient [facility] PRIV PRIV [id number] [facility] 00:00:00 00:00:00 d_J [id number] Medica l 2022-06-14 2022-06-14 Outpatient [facility] PRIV PRIV 272 [id number] [facility] 00:00:00 00:00:00 d_J [id number] Medica l 2022-05-30 2022-05-30 Outpatient [facility] PRIV PRIV 272 [id number] [facility] 00:00:00 00:00:00 d_J [id number] Medica l 2022-05-30 2022-05-30 Outpatient [facility] PR[facility] PRIV [id number] [facility] 00:00:00 00:00:00 d_J [id number] Medica l 2022-05-28 2022-05-28 Outpatient [facility] PRIV PRIV [id number] [facility] 00:00:00 00:00:00 d_J [id number] Medica l 2022-05-28 2022-05-28 Outpatient [facility] PRIV PRIV [id number] [facility] 00:00:00 00:00:00 d_J [id number] Medica l 2022-05-28 2022-05-28 [facility] 418 [facility] 00:00:00 00:00:00 ARCELIA Sylvester: Health - Med ical [address] [place] [address] , Ph. 2022-01-08 2022-01-08 (TEL) ST[facility] [id number] Co mmon 00:00:00 00:00:00 [facility] 2022-01-01 2022-01-01 OFFICE STLMLC STLMLC [id number] [facility] 00:00:00 00:00:00 VISIT [facility] ESTAB PT - CHI LEVEL 4 [facility] 2021-11-20 2021-11-20 (TEL) STLMLC STLMLC [id number] Co mmon 00:00:00 00:00:00 [facility] 2021-10-26 2021-10-26 (TEL) STLMLC STLMLC [id number] Co mmon 00:00:00 00:00:00 [facility] 2021-10-02 2021-10-02 OFFICE STLMLC STLMLC [id number] [facility] 00:00:00 00:00:00 VISIT [facility] ESTAB PT - CHI LEVEL 4 [facility] 2021-08-17 2021-08-17 (TEL) STLMLC STLMLC [id number] Co mmon 00:00:00 00:00:00 [facility] 2021-07-19 2021-07-19 OFFICE STLMLC STLMLC [id number] [facility] 00:00:00 00:00:00 VISIT [facility] ESTAB PT - CHI LEVEL 4 [facility] 2021-07-17 2021-07-17 (TEL) STLMLC STLMLC [id number] Co mmon 00:00:00 00:00:00 [facility] 2021-06-05 2021-06-05 OFFICE STLMLC STLMLC [id number] [facility] 00:00:00 00:00:00 [facility]ISIT [facility] EST[facility] PT - CHI LEVEL 4 [facility] 2021-05-08 2021-05-08 (TEL) STLMLC STLMLC [id number] Co mmon 00:00:00 00:00:00 [facility] 2021-04-27 2021-04-27 OFFICE STLMLC STLMLC [id number] Co mmon 00:00:00 00:00:00 VISIT EST Spir it PT LEVEL 3 - [facility] 2021-04-19 2021-04-19 (TEL) STLMLC STLMLC [id number] Co mmon 00:00:00 00:00:00 [facility] 2021-03-07 2021-03-07 OFFICE [facility] [id number] Co mmon 00:00:00 00:00:00 VISIT [facility] PT - CHI LEVEL 4 [facility] 2021-03-07 2021-03-07 SUB ANNUAL [facility] [id number] Common 00:00:00 00:00:00 [facility] WELLNESS - CHI VISIT [facility] Results Test Description Test Time Test Comments Results Result Comments Source HEMOGLOBIN A1C 2022-01-01 00:00:00 Test Item Value Reference Range Interpretation Comme nts A1C (test code = 4548-4) 10.6 HEMOGLOBIN [id number] 00:00:00 Test Item Value Reference Range Interpretation Comments A1C (test code = 4548-4) 10.3 HEMOGLOBIN [id number] 00:00:00 Test Item Value Reference Range Interpretation Comments A1C (test code = 4548-4) 8.8 HEMOGLOBIN [id number] 00:00:00 Test Item Value Reference Range Interpretation Comments A1C (test code = 4548-4) 9.4 RAD, CHEST, 1 VIEW, NON [id number] 20:01:00Reason for exam:->s/p PPM implantShould this be performed at the bedside?->[facility] 1940 Sex: FFINALREPORT AP chest dated 08/08/2020 Comment: Heart is in upper limits of normal in size. Pulmonary vasculature is unremarkable. Lungs are clear. No pulmonary infiltrate or pleural effusion. AICD is present. No pneumothorax is seen. Signed: María Elena, [place] MDReport Verified Date/Time: 08/08/2020 20:01:08 Reading Location: [facility] [id number] Consult Reading Room BASIC METABOLIC [id number] 19:57:00 Test Item Value Reference Range Interpretation [...] S NOT APPLICABLE FOR DIALYSIS PATIEN TS. City Library Director ID - IVANIA CCBC W/PLT COUNT & AUTO [id number] 13:56:00 Test Item Value Reference Range Interpretation [...] (BEAKER) (test code = 2801) URINALYSIS W/ [id number] 14:41:00 Test Item Value Reference Range Interpretation [...] Urine, Straight code = 2795) Catheter POCT-GLUCOSE [id number] 11:21:00 Test Item Value Reference Range Interpretation Comments POC-GLUCOSE METER 167 mg/dL 70-110 H TESTED AT [place] [address] (BEAKER) (test code = LUISALESLY [place] [address]38) [address] POCT-GLUCOSE [id number] 08:56:00 Test Item Value Reference Range Interpretation Comments POC-GLUCOSE METER 167 mg/dL 70-110 H TESTED AT [place] [address] [facility] (test code = TUTU [place] 15[address]) [address] POCT-GLUCOSE [id number] 22:03:00 Test Item Value Reference Range Interpretation Comments POC-GLUCOSE METER 128 mg/dL 70-110 H TESTED AT [place] [address] (BEAKER) (test code = TUTU [place] 1538) 92020 POCT-GLUCOSE [id number] 17:31:00 Test Item Value Reference Range Interpretation Comments POC-GLUCOSE METER 141 mg/dL 70-110 H TESTED AT [place] [address] (BEAKER) (test code = TUTU [place] 1538) [address] POCT-GLUCOSE [id number] 11:58:00 Test Item Value Reference Range Interpretation Comments POC-GLUCOSE METER 159 mg/dL 70-110 H TESTED AT [place] [address] (BEAKER) (test code = TUTU [place] 1538) 167[address] POCT-GLUCOSE [id number] 07:47:00 Test Item Value Reference Range Interpretation Comments POC-GLUCOSE METER 115 mg/dL 70-110 H TESTED AT [place] [address] ([facility]) (test code = TUTU [place] 1538) [address] POCT-GLUCOSE [id number] 21:03:00 Test Item Value Reference Range Interpretation Comments POC-GLUCOSE METER 177 mg/dL 70-110 H TESTED AT [place] [address] ([facility]) (test code = TUTU [place] 1538) [address] POCT-GLUCOSE [id number] 16:23:00 Test Item Value Reference Range Interpretation Comments POC-GLUCOSE METER 185 mg/dL 70-110 H TESTED AT [place] [address] ([facility]) (test code = TUTU [place] 1538) [address] POCT-GLUCOSE [id number] 12:04:00 Test Item Value Reference Range Interpretation Comments POC-GLUCOSE METER 208 mg/dL 70-110 H TESTED AT [place] [address] ([facility]) (test code = TUTU Reese [place] 1538) [id number] POCT-GLUCOSE [id number] 07:51:00 Test Item Value Reference Range Interpretation Comments POC-GLUCOSE METER 127 mg/dL 70-110 H TESTED AT [place] [address] ([facility]) (test code = TUTU [place]ese [place] 1538) [id number] POCT-GLUCOSE [id number] 20:44:00 Test Item Value Reference Range Interpretation Comments POC-GLUCOSE METER 225 mg/dL 70-110 H TESTED AT [place] [address] ([facility]) (test code = TUTU Reese [place] 1538) [id number] POCT-GLUCOSE [id number] 17:52:00 Test Item Value Reference Range Interpretation Comments POC-GLUCOSE METER 150 mg/dL 70-110 H TESTED AT [place] [address] ([facility]) (test code = TUTU [place] 1538) [address] POCT-GLUCOSE [id number] 12:45:00 Test Item Value Reference Range Interpretation Comments POC-GLUCOSE METER 176 mg/dL 70-110 H TESTED AT [place] [address] ([facility]) (test code = TUTU [place]ese [place] 1538) [id number] POCT-GLUCOSE [id number] 07:41:00 Test Item Value Reference Range Interpretation Comments POC-GLUCOSE METER 147 mg/dL 70-110 H TESTED AT [place] [address] ([facility]) (test code = TUTU [place]ese [place] 1538) [id number] POCT-GLUCOSE [id number] 20:42:00 Test Item Value Reference Range Interpretation Comments POC-GLUCOSE METER 194 mg/dL 70-110 H TESTED AT [place] [address] ([facility]) (test code = TUTU Reese [place] 1538) [address] POCT-GLUCOSE [id number] 17:33:00 Test Item Value Reference Range Interpretation Comments POC-GLUCOSE METER 174 mg/dL 70-110 H TESTED AT [place] [address] ([facility]) (test code = TUTU [place] 15[address]) [address] POCT-GLUCOSE [id number] 12:14:00 Test Item Value Reference Range Interpretation Comments POC-GLUCOSE METER 153 mg/dL 70-110 H TESTED AT [place] [address] ([facility]) (test code = TUTU [place] 1538) [address] POCT-GLUCOSE [id number] 07:55:00 Test Item Value Reference Range Interpretation Comments POC-GLUCOSE METER 220 mg/dL 70-110 H TESTED AT [place] [address] ([facility]) (test code = TUT[place] [address]) [address] POCT-GLUCOSE [id number] 20:50:00 Test Item Value Reference Range Interpretation Comments POC-GLUCOSE METER 241 mg/dL 70-110 H TESTED AT [place] [address] ([facility]) (test code = TUT[place] 15[address]) [address] POCT-GLUCOSE [id number] 16:54:00 Test Item Value Reference Range Interpretation Comments POC-GLUCOSE METER 218 mg/dL 70-110 H TESTED AT [place] [address] ([facility]) (test code = UTTU [place] 1538) [address] POCT-GLUCOSE [id number] 11:45:00 Test Item Value Reference Range Interpretation Comments POC-GLUCOSE METER 257 mg/dL 70-110 H TESTED AT [place] [address] ([facility]) (test code = TUTU eRese [place] [address]) [address] POCT-GLUCOSE [id number] 07:57:00 Test Item Value Reference Range Interpretation Comments POC-GLUCOSE METER 219 mg/dL 70-110 H TESTED AT [place] [address] ([facility]) (test code = LUISALESLY Hugh [place] 15[address]) [address] BASIC METABOLIC [id number] 06:05:00 Test Item Value Reference Range Interpretation [...] PATIEN TS. CBC W/PLT COUNT & AUTO [id number] 05:42:00 Test Item Value Reference Range Interpretation [...] PERCENT (BEAKER) (test code = 2801) POCT-GLUCOSE [id number] 20:57:00 Test Item Value Reference Range Interpretation Comments POC-GLUCOSE METER 301 mg/dL 70-110 H Notified R Becca SHOEMAKER/TESTED ([facility]) (test code = AT [address] [address]) [facility] [address] POCT-GLUCOSE [id number] 15:57:00 Test Item Value Reference Range Interpretation Comments POC-GLUCOSE METER 292 mg/dL 70-110 H TESTED AT [place] [address] ([facility]) (test code = TUTU Reese [facility] 1538) [address] POCT-GLUCOSE [id number] 13:36:00 Test Item Value Reference Range Interpretation Comments POC-GLUCOSE METER 181 mg/dL 70-110 H TESTED AT [place] [address] ([facility]) (test code = TUTU Reese [facility] 1538) [address] POCT-GLUCOSE [id number] 07:46:00 Test Item Value Reference Range Interpretation Comments POC-GLUCOSE METER 172 mg/dL 70-110 H TESTED AT [place] [address] ([facility]) (test code = [facility] 1538) [address] POCT-GLUCOSE [id number] 21:03:00 Test Item Value Reference Range Interpretation Comments POC-GLUCOSE METER 195 mg/dL 70-110 H TESTED AT [place] [address] ([facility] (test code = [facility] 1538) [address] POCT-GLUCOSE [id number] 16:41:00 Test Item Value Reference Range Interpretation Comments POC-GLUCOSE METER 198 mg/dL 70-110 H TESTED AT [place] [address] ([facility]) (test code = [facility] 1538) [address] POCT-GLUCOSE [id number] 12:08:00 Test Item Value Reference Range Interpretation Comments POC-GLUCOSE METER 241 mg/dL 70-110 H TESTED AT [place] [address] ([facility]) (test code = [facility] 1538) 265[address] POCT-GLUCOSE [id number] 08:27:00 Test Item Value Reference Range Interpretation Comments POC-GLUCOSE METER 300 mg/dL 70-110 H TESTED AT [place] [address] ([facility]) (test code = [facility] 1538) [address] BASIC METABOLIC [id number] 05:56:00 Test Item Value Reference Range Interpretation [...] NOT APPLICABLE FOR DIALYSIS PATIEN TS. PROTHROMBIN [id number] 04:54:00 Test Item Value Reference Range Interpretation Comments PROTIME (BEAKER) (test code = 14.5 seconds 11.7-14.7 759) INR (BEAKER) (test code = 370) 1.1 <=5.9 RECOMMENDED COUMADIN/WARFARIN INR THERAPY RANGESSTANDARD DOSE: 2.0 - 3.0 Includes: PROPHYLAXIS for venous thrombosis, systemic embolization; TREATMENT for venous thrombosis and/or pulmonary embolus.HIGH RISK: Target INR is 2.5-3.5 for patients with mechanical heart valves.CBC W/PLT COUNT & AUTO [id number] 04:50:00 Test Item Value Reference Range Interpretation [...] 417) IMMATURE GRANULOCYTES-RELATIVE 0 % 0-1 PERCENT (AKER) (test code = 2801) POCT-GLUCOSE [id number] 22:08:00 Test Item Value Reference Range Interpretation Comments POC-GLUCOSE METER 285 mg/dL 70-110 H TESTED AT [place] [address] ([facility]) (test code = [facility] 1538) [address] POCT-GLUCOSE [id number] 16:19:00 Test Item Value Reference Range Interpretation Comments POC-GLUCOSE METER 230 mg/dL 70-110 H TESTED AT [place] [address] ([facility]) (test code = [facility] 1538) [address] RAD, ANKLE, MIN 3 VIEWS, [id number] 12:27:00Reason for exam:->pain edema following fallFINAL REPORT Clinical history: pain edema following fall TECHNIQUE: 3 views of the right ankle COMPARISON: None IMPRESSION: There is soft tissue swelling over the medial malleolus.There is no evidence of fracture or dislocation. There are dorsal and plantar calcaneal spurs. Thereare vascular calcifications. Signed: Car Heller MDReport Verified Date/Time: 02/04/2017 12:27:23 Reading Location: [facility] Radiology Reading Room Electronically signed by: CAR HELLER M.D.on 02/04/2017 12:27 PMPOCT- GLUCOSE [id number] 11:55:00 Test Item Value Reference Range Interpretation Comments POC-GLUCOSE METER 204 mg/dL 70-110 H TESTED AT [place] [address] ([facility]) (test code = [facility] 1538) [address] POCT-GLUCOSE [id number] 08:00:00 Test Item Value Reference Range Interpretation Comments POC-GLUCOSE METER 217 mg/dL 70-[address] [facility] 6720 (BEAKER) (test code = [facility] Hugh [facility] 1538) [address] [id number] 07:14:00 Test Item Value Reference Range Interpretation Comments PHOSPHORUS (BEAKER) (test code = 3.8 mg/dL 2.3-4.7 604) [id number] 07:14:00 Test Item Value Reference Range Interpretation Comments MAGNESIUM (BEAKER) (test code = 1.7 mg/dL 1.6-2.6 627) BASIC METABOLIC [id number] 07:14:00 Test Item Value Reference Range Interpretation [...] NOT APPLICABLE FOR DIALYSIS PATIEN TS. POCT-GLUCOSE [id number] 22:31:00 Test Item Value Reference Range Interpretation Comments POC-GLUCOSE METER 288 mg/dL 70-[address] [facility] 6720 (BEAKER) (test code = [facility] Hugh [facility] 1538) [address] POCT-GLUCOSE [id number] 17:03:00 Test Item Value Reference Range Interpretation Comments POC-GLUCOSE METER 268 mg/dL 70-[address] [facility] 6720 (BEAKER) (test code = [facility] 1538) [address] POCT-GLUCOSE [id number] 12:31:00 Test Item Value Reference Range Interpretation Comments POC-GLUCOSE METER 214 mg/dL 70-[address] [facility] 6720 (DAO) (test code = TUTU [place] 15[address]) [address] CT, BRAIN, WITHOUT [id number] 09:22:00FINAL REPORT CT head without contrast INDICATION: [...] reflect acute on chronic sinusitis. Signed: Charanjit Ibarraort Verified Date/Time: 02/03/2017 09:22:48 Reading Location: [address] Neuro Reading Room POCT-GLUCOSE [id number] 07:19:00 Test Item Value Reference Range Interpretation Comments POC-GLUCOSE METER 218 mg/dL 70-[address] [facility] 6720 (DAO) (test code = TUTU Reese [facility] 1538) [address] [id number] 06:12:00 Test Item Value Reference Range Interpretation Comments PHOSPHORUS (BEAKER) (test code = 3.1 mg/dL 2.3-4.7 604) [id number] 06:12:00 Test Item Value Reference Range Interpretation Comments MAGNESIUM (BEAKER) (test code = 1.6 mg/dL 1.6-2.6 627) BASIC METABOLIC [id number] 06:12:00 Test Item Value Reference Range Interpretation [...] NOT APPLICABLE FOR DIALYSIS PATIEN TS. POCT-GLUCOSE [id number] 23:10:00 Test Item Value Reference Range Interpretation Comments POC-GLUCOSE METER 239 mg/dL 70-110 H TESTED AT [place] [address] ([facility]) (test code = [facility] Hugh [facility] 1538) [address] POCT-GLUCOSE [id number] 17:20:00 Test Item Value Reference Range Interpretation Comments POC-GLUCOSE METER 291 mg/dL 70-110 H TESTED AT [place] [address] ([facility]) (test code = [facility] Hugh [facility] 1538) [address] POCT-GLUCOSE [id number] 12:39:00 Test Item Value Reference Range Interpretation Comments POC-GLUCOSE METER 274 mg/dL 70-110 H TESTED AT [place] [address] ([facility]) (test code = [facility] 1538) [address] POCT-GLUCOSE [id number] 11:35:00 Test Item Value Reference Range Interpretation Comments POC-GLUCOSE METER 289 mg/dL 70-110 H TESTED AT [place] [address] ([facility]) (test code = [facility] Hugh [facility] 1538) [address] POCT-GLUCOSE [id number] 11:07:00 Test Item Value Reference Range Interpretation Comments POC-GLUCOSE METER 271 mg/dL 70-[address] [facility] 6720 (DAO) (test code = TUTU [place] 1538) [address] CT, BRAIN, WITHOUT [id number] 10:51:00FINAL REPORT CT head without contrast INDICATION: [...] MDReport Verified Date/Time: 02/02/2017 10:51:15 Reading Location: [address] Neuro Reading Room [id number] 06:07:00 Test Item Value Reference Range Interpretation Comments PHOSPHORUS (BEAKER) (test code = 3.2 mg/dL 2.3-4.7 604) [id number] 06:07:00 Test Item Value Reference Range Interpretation Comments MAGNESIUM (BEAKER) (test code = 2.4 mg/dL 1.6-2.6 627) BASIC METABOLIC [id number] 06:07:00 Test Item Value Reference Range Interpretation [...] NOT APPLICABLE FOR DIALYSIS PATIEN TS. POCT-GLUCOSE [id number] 21:34:00 Test Item Value Reference Range Interpretation Comments POC-GLUCOSE METER 331 mg/dL 70-[address] [facility] 6720 ([facility] (test code = [facility] 1538) [address] HEMOGLOBIN [id number] 14:53:00 Test Item Value Reference Range Interpretation Comments HEMOGLOBIN A1C (BEAKER) (test code = 14.8 % 4.3-6.1 H 368) POCT-GLUCOSE [id number] 11:57:00 Test Item Value Reference Range Interpretation Comments POC-GLUCOSE METER 232 mg/dL 70-[address] [facility] 6720 (BEAKER) (test code = [facility] 1538) [address] [id number] 11:44:00 Test Item Value Reference Range Interpretation Comments PHOSPHORUS (BEAKER) (test code = 3.0 mg/dL 2.3-4.7 604) [id number] 11:44:00 Test Item Value Reference Range Interpretation Comments MAGNESIUM (BEAKER) (test code = 1.3 mg/dL 1.6-2.6 L 627) BASIC METABOLIC [id number] 11:44:00 Test Item Value Reference Range Interpretation [...] PATIEN TS. CBC W/PLT COUNT & AUTO [id number] 11:18:00 Test Item Value Reference Range Interpretation [...] PERCENT (BEAKER) (test code = 2801) POCT-GLUCOSE [id number] 08:37:00 Test Item Value Reference Range Interpretation Comments POC-GLUCOSE METER 269 mg/dL 70-[address] [facility] 6720 (BEAKER) (test code = TUTU [place] 1538) [address] LIPID [id number] 03:12:00 Test Item Value Reference Range Interpretation [...] (test code = Nonreactive Nonreactive 420) POCT-GLUCOSE [id number] 01:15:00 Test Item Value Reference Range Interpretation Comments POC-GLUCOSE METER 297 mg/dL 70-[address] [facility] 6720 (DAO) (test code = TUTU Reese [facility] 1538) [address] POCT-GLUCOSE [id number] 22:01:00 Test Item Value Reference Range Interpretation Comments POC-GLUCOSE METER 354 mg/dL 70-110 H Notified R Becca SHOEMAKER/TESTED (DAO) (test code = AT [facility] 6720 [facility] 7703 0 MR, BRAIN, WITHOUT [id number] 20:46:00Reason for exam:->Ischemic Stroke EvaluationFINAL REPORT MRI [...] (neurology) at 8:45 PM Signed: Charanjit Ibarra MDRholly Verified Date/Time: 01/31/2017 20:46:20 Reading Location: [facility] Radiology Reading Room MR, MRA, BRAIN, WITHOUT [id number] 20:36:00 Reason for exam:->Ischemic Stroke EvaluationFINAL REPORT MRA head and neck without contrast INDICATION: Stroke TECHNIQUE: 2-D and 3-D umzb-lz-hpijhz MRA images of the intra- and extracranial [...] left vertebral artery is not imaged. 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 Mild to moderate left vertebrobasilar confluence, moderate mid basilar artery and severe right and moderate left proximal [employer] stenoses are present. There are suspected severe left supraclinoid ICA stenosis with signal loss. There are mild stenoses of the left proximal MCA and TRUDY origins. No other flow limiting proximal [place] vessels stenosis is seen. Motion [...] left supraclinoid ICA and proximal right [employer] stenoses. 4. No hemodynamically significant cervical carotid artery stenosis by NASCET criteria. Signed: Charanjit Ibarra MDReport Verified Date/Time: 01/31/2017 20:36:02 Reading Location: [facility] Radiology ReadingRoom MR, MRA, NECK, WITHOUT IV [id number] 20:36:00Reason for exam:->Ischemic Stroke EvaluationFINAL REPORT MRA head and neck without contrast INDICATION: Stroke TECHNIQUE: 2-D and 3-D ucql-la-atpyrt MRA images of the intra- and extracranial [...] left vertebral artery is not imaged. 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 Mild to moderate left vertebrobasilar confluence, moderate mid basilar artery and severe right and moderate left proximal [employer] stenoses are present. There are suspected severe left supraclinoid ICA stenosis with signal loss. There are mild stenoses of the left proximal MCA and TRUDY or igins. No other flow limiting proximal [place] vessels stenosis is seen. Motion [...] left supraclinoid ICA and proximal right [employer] stenoses. 4. No hemodynamically significant cervical carotid artery stenosis by NASCET criteria. Signed: Charanjit Ibarra [facility] Verified Date/Time: 01/31/2017 20:36:02 Reading Location: [facility] Radiology ReadingRoom VITAMIN B12 AND [id number] 13:11:00 Test Item Value Reference Range Interpretation Comments VITAMIN B12 (BEAKER) (test code = 551 pg/mL 213816 774) FOLATE (BEAKER) (test code = 362) 15.7 ng/mL >=7.0 [id number] 10:22:00 Test Item Value Reference Range Interpretation Comments HOMOCYSTEINE (BEAKER) (test code = 7.0 umol/L 5.1-15.4 642) POCT-GLUCOSE [id number] 08:22:00 Test Item Value Reference Range Interpretation Comments POC-GLUCOSE METER 200 mg/dL 70-[address] [facility] 6720 (BEAKER) (test code = TUTU [place] 1538) [address] T4, [id number] 07:04:00 Test Item Value Reference Range Interpretation Comments FREE T4 (BEAKER) (test code = 655) 1.28 ng/dL 0.70-1.48 TSH/FREE T4 IF [id number] 06:34:00 Test Item Value Reference Range Interpretation Comments THYROID STIMULATING HORMONE 0.22 uIU/mL 0.35-4.94 L (BEAKER) (test code = 772) BASIC METABOLIC [id number] 05:53:00 Test Item Value Reference Range Interpretation [...] PATIEN TS. CBC W/PLT COUNT & AUTO [id number] 05:31:00 Test Item Value Reference Range Interpretation [...]
--- NOTE | 2022-11-02 13:41 | RAD REPORT ---
EXAM DESCRIPTION: RAD - Chest Single View - 11/02/2022 1:03 pm CLINICAL HISTORY: hypotension Chest pain. COMPARISON: <Comparisons> FINDINGS: Portable technique limits examination quality. Mild pulmonary edema is seen. The heart is moderately enlarged in size. Right venous catheter its tip in the SVC. Multi lead pacer device present. IMPRESSION: Mild CHF.
[2022-11-02 13:57] LABS: Absolute Lymphocytes (CBC) 1.1 K/uL (0.7-4.9); Hematocrit 25.6 % (36.0-45.0); Lymphocytes % 7.3 % (15.3-44.8); MCV 100.4 fL (80-100); MPV 8.3 fL (7.6-11.3); Platelets 156 thou/uL (152-406); RBC Red Blood Cell Count 2.55 M/uL (3.86-4.86)
[2022-11-02 14:10] LABS: Albumin 2.8 g/dL (3.4-5.0); Bilirubin Total 0.4 mg/dL (0.2-1.0); Potassium 4.7 mEq/L (3.5-5.1); Protein, Total 6.7 g/dL (6.4-8.2)
[2022-11-02 14:45] LABS: Protime INR 1.35
--- NOTE | 2022-11-02 15:23 | EDPHYS ---
Physician Documentation [facility] Name: Rebecca Hazel Age: 82 yrs Sex: Female : 1940 Arrival Date: 11/02/2022 Time: 12:39 Bed 18 Private MD: ED Physician Wilfredo Mack HPI: 11/02 12:54 This 82 yrs old Female presents to ER via EMS with complaints of Blood Pressure Problem.rn 12:54 EMS reports called to dialysis center for hypotension. To low blood pressures were rn taken at dialysis and dialysis not performed. EMS did not obtain the same blood pressure was higher for EMS. Patient reports recent admission for IV antibiotics and status post left great toe amputation somewhat recently. Patient denies any chest pain or shortness of breath. No abdominal pain. No vomiting. No diarrhea. Reports hard to get around since amputation of great toe and not eating or drinking much either.. Onset: The symptoms/episode began/occurred this morning. Severity of symptoms: At their worst the symptoms were moderate in the emergency department the symptoms have improved. The patient has not experienced similar symptoms in the past. The patient has been recently seen by a physician:. Historical: - Allergies: 15:59 No Known Allergies; hb - PMHx: 12:44 Diabetes - IDDM; Dialysis M-W-F; End stage renal disease; Hypertension; Hypothyroidism; eh3 stroke with right sided weakness; TIA; - PSHx: 12:44 pacemaker; eh3 - Immunization history:: Adult Immunizations up to date. - Social history:: Smoking status: Patient denies any tobacco usage or history of. - Family history:: not pertinent. - Hospitalizations: : No recent hospitalization is reported. ROS: 12:54 Constitutional: Negative for fever, chills, and weight loss, Cardiovascular: Negative rn for chest pain, palpitations, and edema, Respiratory: Negative for shortness of breath, cough, wheezing, and pleuritic chest pain, Abdomen/GI: Negative for abdominal pain, nausea, vomiting, diarrhea, and constipation, Back: Negative for injury and pain, MS/Extremity: Negative for injury and deformity, Skin: Negative for injury, rash, and discoloration, Neuro: Positive for generalized weakness Exam: 12:54 Constitutional: This is a well developed, well nourished patient who is awake, alert, rn and in no acute distress. Head/Face: Normocephalic, atraumatic. ENT: Dry mucous membranes Cardiovascular: Bradycardic, regular Respiratory: No increased work of breathing, no retractions or nasal flaring. Abdomen/GI: Soft, nontender Skin: Warm, dry, no purulence or foul smell from left foot. No evidence of cellulitis at this time. MS/ Extremity: No cyanosis. Neuro: Awake and alert, GCS 15 Vital Signs: 12:43 BP 105 / 69; Pulse 58; Resp 18; Temp 98.2(O); Pulse Ox 96% on R/A; Weight 106.59 kg; eh3 Height 5 ft. 6 in. ; 13:00 BP 112 / 60; Pulse 57; Resp 15; Pulse Ox 95% on R/A; eh3 13:30 BP 93 / 60; Pulse 54; Resp 16; Pulse Ox 95% on R/A; eh3 14:00 BP 98 / 52; Pulse 52; Resp 12; Pulse Ox 95% on R/A; eh3 14:30 BP 96 / 58; Pulse 52; Resp 12; Pulse Ox 94% on R/A; eh3 15:00 BP 115 / 36; Pulse 52; Resp 12; Pulse Ox 95% on R/A; eh3 15:30 BP 92 / 52; Pulse 55; Resp 12; Pulse Ox 91% on R/A; eh3 16:00 BP 91 / 73; Pulse 53; Resp 14; Temp 98.3(TE); Pulse Ox 100% on 2 lpm NC; eh3 16:30 BP 111 / 74; Pulse 55; Resp 15; Pulse Ox 100% on 2 lpm NC; eh3 17:00 BP 104 / 83; Pulse 51; Resp 14; Pulse Ox 100% on 2 lpm NC; eh3 17:30 BP 105 / 39; Pulse 50; Resp 12; Pulse Ox 100% on 2 lpm NC; eh3 18:00 BP 103 / 45; Pulse 50; Resp 12; Pulse Ox 100% on 2 lpm NC; eh3 18:30 BP 107 / 48; Pulse 50; Resp 14; Pulse Ox 100% on 2 lpm NC; eh3 19:00 BP 108 / 86; Pulse 50; Resp 12; Temp 98.3(TE); Pulse Ox 100% on 2 lpm NC; 3 19:30 BP 140 / 104; Pulse 52; Resp 12; Pulse Ox 99% on 2 lpm DE; [facility] 12:43 Body Mass Index 37.93 (106.59 kg, 167.64 cm) [facility] MDM: 12:44 Patient medically screened. rn 15:21 Differential Diagnosis flu, COVID, weakness, pulmonary edema. Data reviewed: vital rn signs, nurses notes, lab test result(s), radiologic studies, plain films, and as a result, I will admit patient. Consideration of Admission/Observation Patient was admitted/placed on observation. Escalation of care including admission/observation considered. Management of patient was discussed with the following: Hospitalist: . Counseling: I had a detailed discussion with the patient and/or guardian regarding the historical points, exam findings, and any diagnostic results supporting the discharge/admit diagnosis, lab results, radiology results, the need for further work-up and treatment in the hospital. Response to treatment: the patient's symptoms have mildly improved after treatment, and as a result, I will admit patient. ED course: Patient COVID-positive, BP has improved slightly, hemodynamically stable, patient still weak and a little tachypneic. Will admit to hospitalist service for further care. Also, patient was not able to obtain dialysis today due to hypotension, might require a session in the hospital. 11/02 12:46 Order name: Blood Culture Adult (2) 11/02 12:46 Order name: CBC with Diff; Complete Time: 15:12 11/02 12:46 Order name: CMP; Complete Time: 15:12 11/02 12:46 Order name: Lactate w/ 2H reflex if indic.; Complete Time: 15:12 11/02 12:46 Order name: Protime (+inr); Complete Time: 15:12 11/02 12:46 Order name: Ptt, Activated; Complete Time: 15:12 11/02 12:46 Order name: Urinalysis w/ reflexes 11/02 12:46 Order name: Flu; Complete Time: 15:12 11/02 14:08 Order name: SARS-COV-2 RT PCR; Complete Time: 15:12 [facility] 11/02 16:04 Order name: Urinalysis w/ reflexes EDWI 11/02 16:45 Order name: Glucose, Ancillary Testing [facility] 11/02 12:46 Order name: Chest Single View XRAY; Complete Time: 13:45 rn 11/02 12:46 Order name: EKG; Complete Time: 12:50 rn 11/02 12:46 Order name: Accucheck; Complete Time: 12:54 rn 11/02 12:46 Order name: Cardiac monitoring; Complete Time: 12:47 rn 11/02 12:46 Order name: EKG - Nurse/Tech; Complete Time: 13:56 rn 11/02 12:46 Order name: IV Saline Lock - Large Bore; Complete Time: 13:56 rn 11/02 12:46 Order name: Labs collected and sent; Complete Time: 13:56 rn 11/02 12:46 Order name: O2 Per Protocol; Complete Time: 12:47 rn 11/02 12:46 Order name: O2 Sat Monitoring; Complete Time: 12:47 rn 11/02 12:46 Order name: Vital Signs; Complete Time: 12:46 rn Administered Medications: No medications were administered Disposition Summary: 11/02/22 15:23 Hospitalization Ordered Notes: Hospitalization Status: Inpatient Admission rn Provider: Caleb Sheikh rn Location: Telemetry/MedSurg (Inpatient) rn Condition: Stable rn Problem: new rn Symptoms: have improved rn Bed/Room Type: Standard rn Room Assignment: 223(11/02/22 21:03) kj1 Diagnosis - SARS-associated coronavirus as the cause of diseases classified elsewhere rn - Hypotension, unspecified rn - Muscle weakness (generalized) rn Forms: - Medication Reconciliation Form rn - SBAR form rn - Leadership Thank You Letter rn Signatures: Dispatcher [employer] [facility] Germania Graham RN Wilfredo Ribeiro MD MD rn Baxter, Heather RN Bernadette Scott kj1 Hattie Mcmahon RN RN eh3 Corrections: (The following items were deleted from the chart) 14:08 12:47 SARS-COV-2 Antigen Rapid+I.LAB.BRZ ordered. [facility] 19:58 15:23 rn isis 21:03 19:58 225 mw kj1
--- NOTE | 2022-11-02 15:23 | ER ---
Nurse's Notes [facility] Name: Rebecca Hazel Age: 82 yrs Sex: Female : 1940 Arrival Date: 11/02/2022 Time: 12:39 Bed 18 Private MD: Diagnosis: SARS-associated coronavirus as the cause of diseases classified elsewhere;Hypotension, unspecified;Muscle weakness (generalized) Presentation: 11/02 12:43 Chief complaint: EMS states: toned out to dialysis for low BP. EMS reports BPs ranging eh3 from 100/60 to 120/70 en route. BGL 143. Coronavirus screen: Vaccine status: Patient reports receiving the 2nd dose of the covid vaccine. Ebola Screen: No symptoms or risks identified at this time. Initial Sepsis Screen: Does the patient meet any 2 criteria? No. Patient's initial sepsis screen is negative. Does the patient have a suspected source of infection? Yes: Skin breakdown/wound. Risk Assessment: Do you want to hurt yourself or someone else? Patient reports no desire to harm self or others. Onset of symptoms was November 02, 2022. 12:43 Method Of Arrival: EMS: [facility] eh3 12:43 Acuity: DENNIS 3 eh3 Triage Assessment: 12:44 General: Appears in no apparent distress. uncomfortable, Behavior is calm, cooperative, eh3 appropriate for age. Pain: Complains of pain in left foot. Neuro: Level of Consciousness is awake, alert, obeys commands, Oriented to person, place, time, situation. Cardiovascular: Capillary refill < 3 seconds Patient's skin is warm and dry. Respiratory: Airway is patent Respiratory effort is even, unlabored, Respiratory pattern is regular, symmetrical. GI: Abdomen is round non-distended. Derm: Skin is pink, warm \T\ dry. Wound noted left foot. Musculoskeletal: Amputation of left first toe. Circulation, motion, and sensation intact. Historical: - Allergies: 15:59 No Known Allergies; hb - PMHx: 12:44 Diabetes - IDDM; Dialysis M-W-F; End stage renal disease; Hypertension; Hypothyroidism; eh3 stroke with right sided weakness; TIA; - PSHx: 12:44 pacemaker; eh3 - Immunization history:: Adult Immunizations up to date. - Social history:: Smoking status: Patient denies any tobacco usage or history of. - Family history:: not pertinent. - Hospitalizations: : No recent hospitalization is reported. Screenin:46 [facility] ED Fall Risk Assessment (Adult) Score/Fall Risk Level 0 - 2 = Low Risk. Abuse eh3 screen: Denies threats or abuse. Denies injuries from another. Nutritional screening: No deficits noted. Tuberculosis screening: No symptoms or risk factors identified. Assessment: 12:46 Reassessment: No changes from previously documented assessment. See triage assessment. eh3 13:30 Reassessment: Patient appears in no apparent distress at this time. Patient and/or eh3 family updated on plan of care and expected duration. Pain level reassessed. Patient is alert, oriented x 3, equal unlabored respirations, skin warm/dry/pink. 14:30 Reassessment: Patient appears in no apparent distress at this time. Patient and/or eh3 family updated on plan of care and expected duration. Pain level reassessed. Patient is alert, oriented x 3, equal unlabored respirations, skin warm/dry/pink. 15:30 Reassessment: Patient appears in no apparent distress at this time. Patient and/or eh3 family updated on plan of care and expected duration. Pain level reassessed. Patient is alert, oriented x 3, equal unlabored respirations, skin warm/dry/pink. 16:30 Reassessment: Patient appears in no apparent distress at this time. Patient and/or eh3 family updated on plan of care and expected duration. Pain level reassessed. Patient is alert, oriented x 3, equal unlabored respirations, skin warm/dry/pink. 17:30 Reassessment: Patient appears in no apparent distress at this time. Patient and/or eh3 family updated on plan of care and expected duration. Pain level reassessed. Patient is alert, oriented x 3, equal unlabored respirations, skin warm/dry/pink. 18:30 Reassessment: Patient appears in no apparent distress at this time. Patient and/or eh3 family updated on plan of care and expected duration. Pain level reassessed. Patient is alert, oriented x 3, equal unlabored respirations, skin warm/dry/pink. 19:30 Reassessment: Patient appears in no apparent distress at this time. Patient and/or eh3 family updated on plan of care and expected duration. Pain level reassessed. Patient is alert, oriented x 3, equal unlabored respirations, skin warm/dry/pink. 20:07 Reassessment: Failed attempt to call report to 2nd floor, Evelyn RN states she wants to [facility] move the pt to a negative pressure room and will call back. 20:45 Reassessment: Nurse to nurse report received by Evelyn on 2nd floor. [facility] Vital Signs: 12:43 BP 105 / 69; Pulse 58; Resp 18; Temp 98.2(O); Pulse Ox 96% on R/A; Weight 106.59 kg; eh3 Height 5 ft. 6 in. ; 13:00 BP 112 / 60; Pulse 57; Resp 15; Pulse Ox 95% on R/A; eh3 13:30 BP 93 / 60; Pulse 54; Resp 16; Pulse Ox 95% on R/A; eh3 14:00 BP 98 / 52; Pulse 52; Resp 12; Pulse Ox 95% on R/A; eh3 14:30 BP 96 / 58; Pulse 52; Resp 12; Pulse Ox 94% on R/A; eh3 15:00 BP 115 / 36; Pulse 52; Resp 12; Pulse Ox 95% on R/A; eh3 15:30 BP 92 / 52; Pulse 55; Resp 12; Pulse Ox 91% on R/A; eh3 16:00 BP 91 / 73; Pulse 53; Resp 14; Temp 98.3(TE); Pulse Ox 100% on 2 lpm NC; eh3 16:30 BP 111 / 74; Pulse 55; Resp 15; Pulse Ox 100% on 2 lpm NC; eh3 17:00 BP 104 / 83; Pulse 51; Resp 14; Pulse Ox 100% on 2 lpm NC; eh3 17:30 BP 105 / 39; Pulse 50; Resp 12; Pulse Ox 100% on 2 lpm NC; eh3 18:00 BP 103 / 45; Pulse 50; Resp 12; Pulse Ox 100% on 2 lpm NC; eh3 18:30 BP 107 / 48; Pulse 50; Resp 14; Pulse Ox 100% on 2 lpm NC; eh3 19:00 BP 108 / 86; Pulse 50; Resp 12; Temp 98.3(TE); Pulse Ox 100% on 2 lpm NC; eh3 19:30 BP 140 / 104; Pulse 52; Resp 12; Pulse Ox 99% on 2 lpm NC; eh3 12:43 Body Mass Index 37.93 (106.59 kg, 167.64 cm) 3 ED Course: 12:42 Patient arrived in ED. eh3 12:44 Wilfredo Mack MD is Attending Physician. rn 12:44 Triage completed. eh3 12:44 Arm band placed on. eh3 12:46 Hattie Mcmahon, RN is Primary Nurse. eh3 12:46 Patient has correct armband on for positive identification. Bed in low position. Call eh3 light in reach. Side rails up X2. Provided Education on: Use of call watts. Client placed on continuous cardiac and pulse oximetry monitoring. NIBP monitoring applied. 13:05 Chest Single View XRAY In Process Unspecified. EDMS 13:30 Inserted saline lock: 22 gauge in left forearm, using aseptic technique. Blood 3 collected. 15:00 Repositioned patient. Repositioned patient. eh3 15:22 Caleb Sheikh is Hospitalizing Provider. rn 15:30 Oxygen administration via nasal cannula \T\ 2L/min. eh3 17:00 Repositioned patient. eh3 19:00 Repositioned patient. Cleaned of incontinence. eh3 19:27 Straight cath inserted, using sterile technique, 18 Fr. Specimen obtained. Returned 3 cloudy urine. Patient tolerated well. 20:07 No provider procedures requiring assistance completed. Patient admitted, IV remains in [address] Administered Medications: No medications were administered Medication: 20:07 VIS not applicable for this client. 3 Outcome: 15:23 Decision to Hospitalize by Provider. rn 21:06 Admitted to Med/surg accompanied by tech, family with patient, via stretcher, room 223, [facility] with oxygen, Report called to THAIS Rivas 21:06 Condition: stable 21:06 Instructed on the need for admit, 21:06 Patient left the ED. 3 Signatures: Dispatcher [employer] EDMS Wilfredo Mack MD MD rn Baxter, Heather, RN RN Hattie Mcmahon RN RN 3 Corrections: (The following items were deleted from the chart) 16:26 15:30 Oxygen administration via nasal cannula \T\ 3L/min 3 3 19:30 16:00 BP 91 / 73; Pulse 53bpm; Resp 14bpm; Pulse Ox 100% 2 lpm Nasal Cannula; 3 3 19:30 19:00 BP 108 / 86; Pulse 50bpm; Resp 12bpm; Pulse Ox 100% 2 lpm Nasal Cannula; eh3 3 20:19 20:07 Reassessment: Failed attempt to call report to 2nd floor, Evelyn RN states she is eh3 float pool and cannot take Covid + patients, will attempt to switch rooms with another nurse and call back 3
[2022-11-02] MEDS ORDERED: ALBUTEROL 2.5 MG/3 ML NEB SOL NEB PRN (16:03)
[2022-11-02] MEDS ORDERED: ONDANSETRON 4 MG/2 ML VIAL IV PRN (16:03)
--- NOTE | 2022-11-02 16:08 | P.HP ---
Certification for Inpatient Patient admitted to: Observation With expected LOS: <2 Midnights Practitioner: I am a practitioner with admitting privileges, knowledge of patient current condition, hospital course, and medical plan of care. Services: Services provided to patient in accordance with Admission requirements found in Title 42 Section 412.3 of the Code of Federal Regulations Patient History Date of Service: 11/02/22 Reason for admission: Generalized weakness hypertension mixed dialysis, COVID- positive History of Present Illness: 82-year-old female with a history of diabetes type 2, end-stage renal disease on dialysis, hypertension, hypothyroidism, stroke with right-sided weakness presented to the ER via here EMS with complaints of low blood pressure problem. Patient reported that the dialysis center called the EMS for hypotension. It was reported that her blood pressure was on the lower 80s and the dialysis was not performed. Positive for recent hospital admission for IV antibiotics after left great toe amputation done recently. Patient denies chest pain shortness of breath, palpitation, no nausea vomiting. Patient denies fever chills, abdominal pain. ED course blood pressure 105/69, pulse 58, respiration 18, temperature 98.2, pulse ox 96% on room air. Laboratory evaluation is significant for WBC 14.6 hemoglobin 8.3, hematocrit 25.6, platelet 156, PTT 163.4, BUN 47, creatinine 4.92, glucose 119, calcium 8.4, rapid COVID test positive. Planning to admit the patient with a diagnosis of SARS associated coronavirus. Course of disease, hypotension unspecified, muscle weakness. Allergies No Known Allergies Allergy (Verified 09/25/22 01:17) Home Medications: Atorvastatin Calcium [Lipitor] 1 tab PO BEDTIME 05/08/17 Duloxetine [Cymbalta *] 1 cap PO DAILY 05/08/17 Acetaminophen with Codeine [Acetaminophen-Cod #3 Tablet] 1 tab PO Q6HP PRN 03/19/22 Amiodarone HCl [Pacerone] 200 mg PO Q12HR 06/22/22 Ascorbic Acid 500 mg PO BID 06/22/22 Gabapentin 200 mg PO BEDTIME 06/22/22 Levothyroxine [Synthroid*] 125 mcg PO [id number] 06/22/22 Mag Hydroxide 8% [Milk Of Magnesia*] 30 ml PO DAILYPRN PRN 06/22/22 Zinc Sulfate [Zinc Sulfate*] 220 mg PO DAILY 06/22/22 Clopidogrel Bisulfate [Plavix*] 75 mg PO DAILY 07/22/22 Docusate [Colace Cap*] 100 mg PO SEECOM 07/22/22 Metoprolol Succinate 12.5 mg PO DAILY 07/22/22 Polyethyl Gly 3350 [Glycolax*] 17 gm PO DAILY 07/22/22 Protein Supplement [Promod] 60 ml PO BID 07/22/22 lisinopriL [Prinivil*] 5 mg PO DAILY #30 tab 07/26/22 Apixaban [Eliquis *] 2.5 mg PO BID 09/06/22 Lactulose [Enulose] 10 gm PO SEECOM 09/06/22 Amino Acids/Protein Hydrolys [Prosource No Carb Liquid Pkt] 30 ml PO BID packet 10/01/22 Collagenase [Santyl Ointment*] 1 appl TOP DAILY tube 10/01/22 Heparin [Heparin 1,000 units/mL *] 4,000 unit IV EVERY HD PRN vial 10/01/22 Insulin -Regular Human [Novolin -R*] See Protocol SQ ACHS ml 10/01/22 Meropenem [Merrem 500 MG/100 ML NS IVPB] 500 mg IV Q24H 42 Days ml 10/01/22 Vancomycin/0.9 % Sod Chloride [Vanco 500 mg/100 ml-0.9% NaCl] 500 mg IV Q48H 42 Days 10/01/22 - Past Medical/Surgical History Diabetic: Yes -: CVA with right-sided weakness -: Insulin dependent type 2 Diabetes -: Hypertension -: Atrial Fibrillation -: NEUROPATHY -: HLD -: HYPOTHYROIDISM -: ESRD on HD -: chronic osteomyelitis with non-healing ulcer right great toe s/p fall(2017) -: afib vs supraventricular tachycardia -: thyroidectomy -: cataract sx -: hysterectomy -: pacemaker -: Left great toe amputation Psychosocial/ Personal History: fpc - Family History Mother -: Hypertension Father -: Diabetes - Social History Alcohol use: No CD- Drugs: No Caffeine use: No Review of Systems General: Chills, Weakness, Other (Lysed weakness and not feeling well) Eyes: Unremarkable ENT: Unremarkable Respiratory: Dry, SOB with Excertion Gastrointestinal: Unremarkable Genitourinary: Other (Anuric ESRD) Musculoskeletal: Other (Right hemiplegia, left toe amputation) Integumentary: Other (Nonhealing wound on the left toe diabetic ulcer. To amputation) Neurological: Other (Right hemiplegia) Physical Examination - Physical Exam General: Alert, Oriented x3, Cooperative HEENT: Atraumatic, Normocephalic, PERRLA Neck: 2+ carotid pulse no bruit Respiratory: Clear to auscultation bilaterally, Normal air movement, Diminished (Diminished at the bases) Cardiovascular: No edema, Normal pulses, Regular rate/rhythm, Normal S1 S2, Systolic murmur Capillary refill: Brisk Gastrointestinal: Normal bowel sounds, Soft and benign, Non-distended Musculoskeletal: No clubbing, No swelling, No contractures, No erythema, Other (Left foot diabetic nonhealing wound) Integumentary: Other (Nonhealing wound on the left foot) Neurological: Normal speech, Other (Bed confined) Urinary: Dialysis catheter - Studies Laboratory Data (last 24 hrs) 11/02/22 11/02/22 11/02/22 13:42 13:42 13:42 WBC 14.60 H Hgb 8.3 L Hct 25.6 L Plt Count 156 PT 14.9 H INR 1.35 APTT 163.4 H* Sodium 137 Potassium 4.7 BUN 47 H Creatinine 4.92 H Glucose 119 H Total Bilirubin 0.4 AST 17 ALT 18 Alkaline Phosphatase 74 Microbiology Data (last 24 hrs): 11/02/22 14:10 Nasopharnyx Influenza Type A Antigen Screen - Final 11/02/22 14:10 Nasopharnyx Influenza Type B Antigen Screen - Final Assessment and Plan - Plan Assessment and plan ESRD on HD A-fib Hypertension Neurolyse weakness COVID positive Diabetes type 2 History of CVA, right right hemiplegia Hypertension Permanent pacemaker Hypothyroidism Assessment and plan ESRD on HD Chronic, on HD TTS. Patient missed dialysis today due to low blood pressure in the dialysis center, also she missed last week dialysis due to some technical problem in the dialysis center Referred to our nephrology, A-fib Chronic controlled anticoagulated with Eliquis. On amiodarone. Rate is controlled patient denies chest pain or palpitation. Hypotension Patient had hypotension this morning, blood pressure normal at this time Hold antihypertensive for blood pressure less than 110/70 Continue to monitor. Generalized weakness COVID positive Patient is tested positive for COVID We will continue to monitor Diabetes type 2 Chronic controlled. Denies hypoglycemia Ordered insulin before meals and at bedtime with a sliding scale Hypoglycemic precautions History of CVA, right right hemiplegia Chronic, continue Eliquis and Plavix. Diet-diabetic diet DVT prophylaxis-heparin CODE STATUS-full code - Advance Directives Does patient have a Living Will: No Does patient have a Durable POA for Healthcare: Yes
[2022-11-02] MEDS: INSULIN -REGULAR HUMAN 50 UNIT/0.5 ML ML SQ SCH ×2 (16:30→21:00)
[2022-11-02] MEDS ORDERED: HEPARIN 5000 UNIT/ML 1 ML VIAL ONE (16:50)
[2022-11-02] MEDS: HEPARIN 5000 UNIT/ML 1 ML VIAL SQ SCH (17:00)
[2022-11-02 19:42] LABS: Specific Gravity 1.014 (1.005-1.030); Urine Bacteria 20-50 /HPF (<20); Urine Bilirubin NEGATIVE (Negative); Urine Blood 2+ (Negative); Urine Clarity Extremely Turbid (Clear); Urine Color Orange (Yellow); Urine Glucose NEGATIVE (Negative); Urine Protein 3+ (Negative); Urine RBC 21-50 /HPF (None Seen); Urine Urobilinogen 1+ (Normal); Urine WBC Clump Many /HPF (None Seen); Urine pH 6.5 (5.0-7.0)
[2022-11-02] MEDS ORDERED: VANCOMYCIN IV SCH (23:19)
[2022-11-02] MEDS ORDERED: SOD CHLORIDE IV SCH (23:19)
[2022-11-02] MEDS ORDERED: [UNRECOGNIZED DRUG - OTHER] IV SCH (23:19)
[2022-11-02] MEDS: AMIODARONE HCL 200 MG TAB PO SCH (23:19)
[2022-11-03] MEDS ORDERED: Meropenem 500 MG in NA CHLORIDE 0.9% 100 ML IV ONE (01:00)
[2022-11-03] MEDS: ACETAMINOPHEN 500 MG TAB PO PRN (01:49)
[2022-11-03] MEDS: HEPARIN 5000 UNIT/ML 1 ML VIAL SQ SCH ×3 (01:49→21:14)
[2022-11-03] MEDS: LEVOTHYROXINE SOD 0.125 MG TAB PO SCH (06:06)
[2022-11-03] MEDS: INSULIN -REGULAR HUMAN 50 UNIT/0.5 ML ML SQ SCH ×4 (07:30→21:00)
[2022-11-03 09:03] LABS: Absolute Lymphocytes (CBC) 1.6 K/uL (0.7-4.9); Hematocrit 22.1 % (36.0-45.0); Lymphocytes % 12.9 % (15.3-44.8); MCV 99.7 fL (80-100); MPV 7.9 fL (7.6-11.3); Platelets 148 thou/uL (152-406); RBC Red Blood Cell Count 2.22 M/uL (3.86-4.86)
[2022-11-03 09:19] LABS: Magnesium 2.5 mg/dL (1.6-2.4); Phosphorus 6.1 mg/dL (2.5-4.9); Potassium 5.3 mEq/L (3.5-5.1)
[2022-11-03] MEDS: AMIODARONE HCL 200 MG TAB PO SCH ×2 (10:46→19:40)
[2022-11-03] MEDS ORDERED: VANCOMYCIN 1 GM in NA CHLORIDE 0.9% 250 ML IVPB SCH (13:30)
[2022-11-03] MEDS: CLOPIDOGREL 75 MG TABLET PO SCH (14:00)
--- NOTE | 2022-11-03 14:49 | CON ---
Date of Consultation: 11/03/2022 Reason For Consultation: Elevated BUN and creatinine, end-stage renal disease. History Of Present Illness: This is a pleasant 82-year-old female, well known to me from the office with significant past medical history of end-stage renal disease, on hemodialysis TTS at [facility], diabetes complicated with neuropathy and nephropathy, hypertension, CAD complicat ed with congestive heart failure, diastolic disease function, preserved ejection fraction, CVA, demen tia, the patient had UTI with multidrug resistant and decubitus ulcer. The patient came yesterday to the dialysis, found to have altered mental status with low blood pressure with over volume. For luis manuel t reason, reported to the hospital. In the hospital, found to have low blood pressure, anemic, down to 7.2, hyperkalemia. For that reason, we have been consulted. The patient has still altered mental status. Past Medical History: Includes; 1.Diabetes complicated with neuropathy and nephropathy. 2.Hypertension. 3.CAD complicated with congestive heart failure, ejection fraction preserved, diastolic dysfunction. 4.CVA. 5.Dementia. 6.End-stage renal disease, on dialysis through right IJ PermCath. Allergies: NO KNOWN DRUGS ALLERGY. Social History: Lives in group home. Denied smoking. Denied drinking. Denied drugs abuse. Review of Systems: Head and Neck: No red eye. No ear pain. GI: No nausea. No vomiting. : No polyuria. No dysuria. No hematuria. Infrastructure Engineer: No vaginal discharge. Respiratory: Has shortness of breath. Cardiovascular: Has leg swelling, orthopnea. Endocrine: No polydipsia. Skin: No rash. Neuro: Has altered mental status. Musculoskeletal: Generalized fatigue. Home Medications: Include meropenem, vancomycin, Cymbalta, Eliquis, amiodarone, levothyroxine, and E pogen. Physical Examination: General: When I saw the patient; the patient lying in bed, sleepy. Vital Signs: Blood pressure of 107/46, pulse of 50, afebrile. Chest: Decreased entry bilateral base. Heart: S1, S2. Systolic murmur. Abdomen: Soft, nontender. Extremity: +2 edema. Neuro: Alert, sleepy with altered mental status, oriented to person. Laboratory Data: WBC 12.5, hemoglobin 7.2. Sodium 140, potassium 5.3, bicarb 24, BUN 58, creatinine 5.6, calcium 8.4, phosphorus 6.2, magnesium 2.5. Chest x-ray; cardiomegaly with congestion. Current Medications: The patient on include; 1.Meropenem. 2.Plavix. 3.Heparin. 4.Amiodarone. 5.Gabapentin. 6.Zofran. 7.Levothyroxine. 8.Vancomycin. Assessment And Plan: 1.End-stage renal disease, over volume with hyperkalemia. I am going to arrange for dialysis today and we will transfuse 1 unit with dialysis and we will follow up. 2.Hyperkalemia. The patient is going to be dialyzed on high potassium bath. 3.Over volume. The patient is going to be challenged. 4.Hypertension. Hold all blood pressure medications. The patient is going to dialyzed o n sodium module and we will use midodrine and albumin if needed. 5.Hyperkalemia, going to be corrected with dialysis. 6.Hyponatremia, will be corrected with dialysis. 7.Anemia of chronic kidney disease. We will transfuse the patient and we will resume JOHNNY, Retacrit. 8.Altered mental status, possible metabolic secondary to infection, sepsis. Continue current antibi otic. We will follow up. 9.Osteomyelitis. Continue current antibiotic. Follow up with primary. Time spent examining the patient [id number], reviewing data, lab and radiology, placing order, disc ussing the case with the meat service team member including nursing staff and hospitalist, discussing the case wit h by bedside more than 75 minutes. YUDITH Voice ID: [id number] Report ID: [id number]
--- NOTE | 2022-11-03 15:37 | P.PN ---
Subjective Date of Service: 11/03/22 Chief Complaint: Generalized weakness hypertension mixed dialysis, COVID- positive Patient noted to be somnolent today. She is needing 2 L of oxygen by nasal cannula. No reported fever. Physical Examination - Vital Signs Temperature: 97.9 F Blood Pressure: 162/62 Pulse: 110 Respirations: 16 Pulse Ox (%): 93 - Studies Microbiology Data (last 24 hrs): 11/02/22 14:10 Nasopharnyx Influenza Type A Antigen Screen - Final 11/02/22 14:10 Nasopharnyx Influenza Type B Antigen Screen - Final Assessment And Plan - Plan Physical Exam General: Somnolent, cooperative, obey simple commands. HEENT: PERRLA Neck: No elevated JVD Respiratory: Mild bibasilar crackles, Normal air movement. Cardiovascular: Irregular rhythm, normal S1 S2, Systolic murmur Gastrointestinal: Normal bowel sounds, Soft and benign, Non-distended Musculoskeletal: No swelling, No erythema. Integumentary: Nonhealing wound on the left foot Neurological: Normal speech, patient moves all extremities. Diagnosis ESRD on HD A-fib Hypertension COVID 19 infection Diabetes type 2 History of CVA, right hemiplegia Hypertension Permanent pacemaker Hypothyroidism Plan: ESRD on HD * Chronic, on HD TTS. * Missed dialysis * Nephrology input appreciated * Patient is planned for hemodialysis today. A-fib * Chronic, rate controlled on amiodarone * Anticoagulated with Eliquis. Hypotension * Hold antihypertensive for blood pressure less than 110/70 * Continue to monitor. COVID 19 infection * Mild CHF * I doubt COVID-pneumonia. * Repeat chest x-ray after dialysis to confirm resolution of mild pulmonary edema. Diabetes type 2 * Insulin before meals and at bedtime with a sliding scale * Hypoglycemic precautions History of CVA * Stable * continue Eliquis and Plavix. Left foot osteomyelitis * Continue IV meropenem and vancomycin * Patient slated to complete antibiotics on 11/07. Diet-diabetic diet DVT prophylaxis-heparin
[2022-11-03] MEDS ORDERED: LOPERAMIDE HCL 2 MG CAPSULE PO PRN (15:48)
[2022-11-03] MEDS ORDERED: DIPHENHYDRAMINE 25 MG TAB/CAP PO PRN (15:48)
[2022-11-03] MEDS ORDERED: GLUCAGON 1 MG/VIAL IM PRN (15:50)
[2022-11-03] MEDS ORDERED: D50W 25 GM/50 ML SYRINGE IV PRN (15:50)
[2022-11-03] MEDS ORDERED: ALBUMIN HUMAN 25% 100 ML IV ONE (15:51)
[2022-11-03] MEDS: DEXTROSE 10%-WATER 500 ML IV SCH (16:45)
[2022-11-03] MEDS ORDERED: Meropenem 500 MG/100 ML BAG IV SCH (17:00)
[2022-11-03] MEDS ORDERED: NA CHLORIDE 0.9% 250 ML IV ONE (17:02)
[2022-11-03] MEDS ORDERED: NA CHLORIDE 0.9% 250 ML ONE (17:13)
[2022-11-03] MEDS ORDERED: NOREPINEPHRINE BITARTRATE/D5W 4 MG/250 ML BAG IV ONE (17:31)
[2022-11-03] MEDS: NOREPINEPHRINE 4 MG in D5W 250 ML IV SCH ×4 (17:31→23:55)
--- NOTE | 2022-11-03 18:25 | P.PN ---
Date of Service: 11/03/22 Rapid response was called on the patient because she became unresponsive. Patient was hypoglycemic earlier. She was given glucagon per protocol and later started on D10 IV infusion. Patient passed out during the D10 infusion. D10 infusion rate changed to wide bore. Blood sugar rechecked in the 120s Patient noted to be hypotensive with systolic blood pressure in the 70s. 250 normal saline bolus ordered. Patient transferred to the ICU to start Levophed drip. Case discussed with nephrology Dr. Heller recommended to hold dialysis until patient is stable. She is slated for 1 unit PRBC transfusion. Continue to monitor closely. Antibiotics for osteomyelitis resumed. Repeat H&H after blood transfusion. Hold Eliquis for now.
[2022-11-03] MEDS: ATORVASTATIN 80 MG TAB PO SCH (19:40)
[2022-11-03] MEDS: ASCORBIC ACID 500 MG TABLET PO SCH (19:40)
[2022-11-03] MEDS: DOCUSATE NA 100 MG CAP PO SCH (19:40)
[2022-11-03 20:43] LABS: Hepatitis B surface AG Interp. Nonreactive (Nonreactive)
[2022-11-03 20:46] LABS: Hepatitis B Surface Ab - Quant < 3.10 mIU/mL (<8.0)
[2022-11-03] MEDS ORDERED: APIXABAN 2.5 MG TABLET PO SCH (21:00)
[2022-11-03] MEDS: Meropenem 500 MG in NA CHLORIDE 0.9% 100 ML IV SCH (21:13)
[2022-11-04] MEDS ORDERED: MEROPENEM IV SCH
[2022-11-04 00:01] LABS: Hematocrit 29.9 % (36.0-45.0)
[2022-11-04] MEDS: HEPARIN 5000 UNIT/ML 1 ML VIAL SQ SCH ×3 (01:18→16:42)
[2022-11-04] MEDS: NOREPINEPHRINE 4 MG in D5W 250 ML IV SCH ×3 (01:40→07:00)
[2022-11-04] MEDS: DEXTROSE 10%-WATER 500 ML IV SCH (02:45)
[2022-11-04 04:59] LABS: Absolute Lymphocytes (CBC) 1.2 K/uL (0.7-4.9); Hematocrit 29.1 % (36.0-45.0); Lymphocytes % 5.6 % (15.3-44.8); MCV 96.4 fL (80-100); MPV 7.9 fL (7.6-11.3); Platelets 196 thou/uL (152-406); RBC Red Blood Cell Count 3.02 M/uL (3.86-4.86)
[2022-11-04 05:28] LABS: Blood Morphology Comment NOT SEEN (NOT SEEN); Platelet Estimate ADEQ
[2022-11-04 05:34] LABS: Magnesium 2.5 mg/dL (1.6-2.4); Phosphorus 6.7 mg/dL (2.5-4.9); Potassium 5.2 mEq/L (3.5-5.1)
[2022-11-04] MEDS ORDERED: NOREPINEPHRINE 4 MG/4 ML VIAL ONE (05:44)
[2022-11-04] MEDS ORDERED: D5W 250 ML IV ONE (06:00)
[2022-11-04] MEDS: LEVOTHYROXINE SOD 0.125 MG TAB PO SCH (06:00)
[2022-11-04] MEDS: INSULIN -REGULAR HUMAN 50 UNIT/0.5 ML ML SQ SCH ×4 (06:00→18:00)
[2022-11-04] MEDS: NOREPINEPHRINE IV SCH ×4 (08:15→23:01)
[2022-11-04] MEDS: D5W IV SCH ×4 (08:15→23:01)
[2022-11-04] MEDS: POLYETHYL GLY 3350 17 GM/DOSE PO SCH (11:17)
[2022-11-04] MEDS: CLOPIDOGREL 75 MG TABLET PO SCH (11:17)
[2022-11-04] MEDS: AMIODARONE HCL 200 MG TAB PO SCH ×2 (11:17→20:58)
[2022-11-04] MEDS: DOCUSATE NA 100 MG CAP PO SCH ×2 (11:17→20:58)
[2022-11-04] MEDS: ASCORBIC ACID 500 MG TABLET PO SCH ×2 (11:17→20:58)
[2022-11-04] MEDS ORDERED: ALBUTEROL 2.5 MG/3 ML NEB SOL NEB PRN (12:00)
--- NOTE | 2022-11-04 12:34 | EKG ---
Test Date: 2022-11-02 Test Time: 14:07:54 Business Performance Advisor: JACKELINE MEASUREMENT RESULTS: Intervals: Rate: 53 [place]: 230 QRSD: 140 QT: 514 QTc: 482 [place]: P: 96 [place]: 230 QRS: 27 T: 41 INTERPRETIVE STATEMENTS: Sinus bradycardia with 1st degree AV block Right bundle branch block Abnormal ECG Compared to ECG 09/24/2022 18:29:37 Sinus rhythm no longer present Left anterior fascicular block no longer present Bifascicular block no longer present Electronically Signed On 11-04-22 12:30:48 CDT by Lui Tomlinson
--- NOTE | 2022-11-04 13:39 | P.PN ---
Subjective Date of Service: 11/04/22 Chief Complaint: Generalized weakness hypertension mixed dialysis, COVID- positive Patient awake and interactive today She is needing 2 L of oxygen by nasal cannula. She remains on Levophed drip. Blood sugar readings have stabilized. Physical Examination - Vital Signs Temperature: 99.1 F Blood Pressure: 125/66 Pulse: 71 Respirations: 18 Pulse Ox (%): 100 Assessment And Plan - Plan Physical Exam General: Somnolent, cooperative, obey simple commands. HEENT: PERRLA Neck: No elevated JVD Respiratory: Mild bibasilar crackles, Normal air movement. Cardiovascular: Irregular rhythm, normal S1 S2, Systolic murmur Gastrointestinal: Normal bowel sounds, Soft and benign, Non-distended Musculoskeletal: No swelling, No erythema. Integumentary: Nonhealing wound on the left foot Neurological: Normal speech, patient moves all extremities. Diagnosis ESRD on HD A-fib Hypertension COVID 19 infection Diabetes type 2 History of CVA, right hemiplegia Hypertension Permanent pacemaker Hypothyroidism Plan: ESRD on HD * Chronic, on HD TTS. * Missed dialysis * Nephrology input appreciated * Patient with low blood pressure on Levophed * Nephrology to follow for hemodialysis. * Lokelma as needed for hyperkalemia A-fib * Chronic, rate controlled on amiodarone * Anticoagulated with Eliquis. Hypotension * Continue Levophed drip and wean off as tolerated * Continue to monitor. COVID 19 infection * Mild CHF * I doubt COVID-pneumonia. * Repeat chest x-ray after dialysis to confirm resolution of mild pulmonary e zachariah. Metabolic encephalopathy * Secondary to hypoglycemia and possibly uremia * Mental status improved Diabetes type 2/hypoglycemia * Hypoglycemia resolved. * Discontinue D10 infusion * Insulin before meals and at bedtime with a sliding scale * Hypoglycemic precautions History of CVA * Stable * continue Eliquis and Plavix. Left foot osteomyelitis/septic shock * Leukocytosis trended up significantly from yesterday * Repeat blood cultures. * Continue IV meropenem and vancomycin * Patient slated to complete antibiotics on 11/07. Diet-Renal diet DVT prophylaxis-Eliquis
[2022-11-04] MEDS: Meropenem 500 MG in NA CHLORIDE 0.9% 100 ML IV SCH (16:42)
[2022-11-04] MEDS ORDERED: SODIUM ZIRCONIUM CYCLOSILICATE 10 GM/PKT PO ONE (18:43)
[2022-11-04] MEDS ORDERED: D5W 1,000 ML with NA BICARB 8.4% 150 MEQ IV SCH ×2 (19:00)
[2022-11-04] MEDS ORDERED: ALBUMIN HUMAN 25% 100 ML IV ONE (19:00)
[2022-11-04 19:34] LABS: Absolute Lymphocytes (CBC) 2.4 K/uL (0.7-4.9); Hematocrit 30.3 % (36.0-45.0); Lymphocytes % 10.6 % (15.3-44.8); MCV 96.6 fL (80-100); MPV 7.6 fL (7.6-11.3); Platelets 179 thou/uL (152-406); RBC Red Blood Cell Count 3.14 M/uL (3.86-4.86)
[2022-11-04] MEDS ORDERED: SODIUM BICARB 50 MEQ/50ML VIAL ONE (19:37)
[2022-11-04] MEDS: FUROSEMIDE 40 MG/4 ML VIAL IV SCH (19:44)
[2022-11-04 20:01] LABS: Albumin 2.5 g/dL (3.4-5.0); Bilirubin Total 0.5 mg/dL (0.2-1.0); Potassium 5.1 mEq/L (3.5-5.1); Protein, Total 6.6 g/dL (6.4-8.2)
[2022-11-04] MEDS: ATORVASTATIN 80 MG TAB PO SCH (20:58)
[2022-11-04] MEDS: GABAPENTIN 100 MG CAP PO SCH (20:58)
[2022-11-04] MEDS ORDERED: GABAPENTIN 100 MG CAP PO SCH (21:00)
[2022-11-04 21:05] LABS: Protime INR 1.28
[2022-11-04] MEDS: HEPARIN/D5W 25,000 UNIT/500 ML BAG IV SCH (21:32)
[2022-11-04 21:49] LABS: Arterial Blood Carboxyhemoglob 1.5 % (0-1.5); Blood Gas Oxyhemoglobin 94.1 % (94-97); Blood O2 Saturation 96.6 % (92-98.5)
[2022-11-05] MEDS: FUROSEMIDE 40 MG/4 ML VIAL IV SCH ×3 (00:14→12:28)
[2022-11-05] MEDS: INSULIN -REGULAR HUMAN 50 UNIT/0.5 ML ML SQ SCH ×4 (00:16→18:00)
--- NOTE | 2022-11-05 02:13 | PN ---
Date of Progress Note: 11/04/2022 Chief Complaint: End-stage renal disease, on hemodialysis. Dialysis was attempted today, although d ue to hypotensive episodes, dialysis was stopped. Patient is on low dose of Levophed for blood press ure support. She was admitted to ICU for COVID pneumonia. The patient is an 82-year-old female. Jak dumont has been dialyzed 3 times per week, TTS scheduled at [facility]. The patient has history of diabetic kidney disease, diabetic neuropathy, nephropathy, and retinopathy. She has comp licated history of congestive heart failure with diastolic dysfunction, coronary artery disease. The patient has history of UTI with multidrug resistance. No microorganism. She has been treated for d ecubitus ulcer. During this admission, she was found to have hyperkalemia and was treated with Lokel ma, potassium today is 5.2. Review of Systems: Patient denies new complaints. Physical Examination: Lungs: Clear to auscultation bilaterally. Heart: S1, S2. Abdomen: Soft. Extremities: Edema present. Impression And Plan: 1.Patient received a short dialysis today. The procedure was terminated after 15 minutes of treatment because of hypotensive episodes. The patient will need to for end-stage nissa al disease treatment. Patient is on hemodialysis due to intradialytic hypotension. 2.Hyperkalemia. Patient had with 2 potassium dialysate. Continue Lokelma to treat hyper kalemia. 3.History of hypertension. Blood pressure medication on hold because of hypotensive episodes. The patient is on midodrine and albumin as well as Levophed. 4.Hyperkalemia. Continue Lokelma. 5.Hyponatremia due to fluid overload and the patient will need dialysis with ultrafiltration as soon as blood pressure is more stable. Patient is to have end-stage renal disease therapy during sickness with hypotensi ve episode. EB/MODL Voice ID: [id number] Report ID: [id number]
[2022-11-05 05:34] LABS: Absolute Lymphocytes (CBC) 0.9 K/uL (0.7-4.9); Hematocrit 26.8 % (36.0-45.0); Lymphocytes % 4.7 % (15.3-44.8); MPV 7.5 fL (7.6-11.3); Platelets 160 thou/uL (152-406); RBC Red Blood Cell Count 2.79 M/uL (3.86-4.86)
[2022-11-05 05:51] LABS: Magnesium 2.4 mg/dL (1.6-2.4); Phosphorus 6.6 mg/dL (2.5-4.9); Potassium 4.9 mEq/L (3.5-5.1)
[2022-11-05 05:54] LABS: Troponin High Sensitivity 9768.7 pg/mL (<58.9)
[2022-11-05] MEDS: LEVOTHYROXINE SOD 0.125 MG TAB PO SCH (06:47)
--- NOTE | 2022-11-05 07:09 | P.PN ---
Date of Service: 11/05/22 Subjective: ROS: 10 point ROS as noted above, otherwise negative Physical Exam: GEN: Somnolent, cooperative, obey simple commands HEENT: Normal conjunctiva, sclera anicteric CV: Regular rate and rhythm, no edema, Systolic murmur Pulm: Nonlabored respirations on 2L NC, Mild bibasilar crackles ABD: Soft, nontender, nondistended MSK: No joint tenderness Integumentary: Nonhealing wound on the left foot Neuro: Normal speech, normal affect vitals reviewed Problem List: septic shock likely secondary to Osteomyelitis of L foot / Covid 19 infection ESRD on HD A-fib, chronic on anticoagulation Hypotension Covid 19 infection Metabolic encephalopathy, improved 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 * Continue IV meropenem and vancomycin (end date: 11/07) ESRD on HD TTS * Missed dialysis * Nephrology consulted * Patient with low blood pressure on Levophed * Lokelma as needed for hyperkalemia * Initiated transfer to [facility] for CRRT A-fib, chronic on anticoagulation * Chronic, rate controlled on amiodarone * continue home Eliquis. Hypotension * Continue Levophed drip and wean off as tolerated * Continue to monitor. COVID 19 infection * Mild CHF * I doubt COVID-pneumonia. * Repeat chest x-ray after dialysis to confirm resolution of mild pulmonary edema. Metabolic encephalopathy, improved * Secondary to hypoglycemia and possibly uremia * Mental status improved IDDM2 with hypoglycemia * Hypoglycemia resolved. * Discontinue D10 infusion * Sliding scale insulin, Insulin before meals and at bedtime * Hypoglycemic precautions History of CVA with right-sided weakness * Stable * continue Eliquis and Plavix. Hypertension Hypothyroidism * continue home medications as appropriate VTE: Home eliquis Code: Full Dispo: Home
[2022-11-05] MEDS: NOREPINEPHRINE IV SCH ×2 (07:44→22:26)
[2022-11-05] MEDS: D5W IV SCH ×2 (07:44→22:26)
[2022-11-05] MEDS ORDERED: LIDOCAINE 1% 20 ML MDV ONE (08:02)
[2022-11-05] MEDS ORDERED: MICAFUNGIN SODIUM 100 MG VIAL IV SCH (09:00)
[2022-11-05] MEDS: AMIODARONE HCL 200 MG TAB PO SCH ×2 (09:15→20:30)
[2022-11-05] MEDS: ASCORBIC ACID 500 MG TABLET PO SCH ×2 (09:15→20:30)
[2022-11-05] MEDS: POLYETHYL GLY 3350 17 GM/DOSE PO SCH (09:15)
[2022-11-05] MEDS: DOCUSATE NA 100 MG CAP PO SCH ×2 (09:15→20:30)
--- NOTE | 2022-11-05 09:21 | P.CNS ---
Date of Consult: 11/05/22 Reason for Consult: melba, osteomyelitis on abx Chief Complaint: Generalized weakness hypertension mixed dialysis, COVID- positive History of Present Illness: Patient is an 82-year-old female with a complicated past medical history including diabetes mellitus type 2, end-stage renal disease on hemodialysis, hypertension, hypothyroidism, prior CVA with right-sided weakness, osteomyelitis of lower extremity on IV antibiotics. Patient presented to the emergency department via EMS for hypotension. Patient was admitted for sepsis and COVID- 19 infection. Of note, she has been on IV antibiotics meropenem and vancomycin since 09/26 with plan for 6 weeks of IV antibiotics to end on 11/07. Patient has had been hospitalized 6 times in the past 6 months. Allergies No Known Allergies Allergy (Verified 09/25/22 01:17) Home medications list reviewed: Yes Home Medications: Atorvastatin Calcium [Lipitor] 1 tab PO BEDTIME 05/08/17 Amiodarone HCl [Pacerone] 100 mg PO Q12HR 06/22/22 Ascorbic Acid 500 mg PO BID 06/22/22 Gabapentin 200 mg PO BEDTIME 06/22/22 Levothyroxine [Synthroid*] 125 mcg PO [id number] 06/22/22 Docusate [Colace Cap*] 100 mg PO BID 07/22/22 Apixaban [Eliquis *] 2.5 mg PO BID 09/06/22 Heparin [Heparin 1,000 units/mL *] 4,000 unit IV EVERY HD PRN vial 10/01/22 Acetaminophen [Acetaminophen ER] 650 mg PO Q4HR PRN 11/03/22 Clonidine HCl [Catapres*] 0.1 mg PO Q4HR PRN 11/03/22 Codeine Sulfate 300 mg PO DIRECTED PRN 11/03/22 Diphenhydramine [Benadryl*] 25 mg PO Q4HR PRN 11/03/22 Epoetin Ankit [Epogen] 2,400 unit IV SEECOM 11/03/22 Flu Vacc [id number](65Yr Up)/Pf [Fluzone High-Dose Quad ] 0.7 mcg dfe IM ONCE 11/03/22 Insulin Lispro [Humalog] 1 unit SQ BID 11/03/22 Loperamide [Imodium*] 2 mg PO Q4HR PRN 11/03/22 Nitroglycerin [Nitrostat] 0.4 mg SL Q5M PRN 11/03/22 Polyethyl Gly 3350 [Glycolax*] 17 gm PO DAILY 11/03/22 Vancomycin HCl 750 mg IV SEECOM 11/03/22 lisinopriL [Prinivil*] 10 mg PO DAILY 11/03/22 - Past Medical/Surgical History Diabetic: Yes -: CVA with right-sided weakness -: Insulin dependent type 2 Diabetes -: Hypertension -: Atrial Fibrillation -: NEUROPATHY -: HLD -: HYPOTHYROIDISM -: ESRD on HD -: chronic osteomyelitis with non-healing ulcer right great toe s/p fall(2017) -: afib vs supraventricular tachycardia -: thyroidectomy -: cataract sx -: hysterectomy -: pacemaker -: Left great toe amputation Psychosocial/ Personal History: [facility] - Family History Mother Medical History: Hypertension Father Medical History: Diabetes - Social History Smoking Status: Unknown if ever smoked Alcohol use: No CD- Drugs: No Caffeine use: No Review of Systems Integumentary: Other (left foot diabetic foot ulcer) Neurological: Confusion (altered mental status) Physical Examination Temp Pulse Resp BP Pulse Ox 97.9 F 74 18 124/44 L 97 11/05/22 00:00 11/05/22 08:00 11/05/22 06:45 11/05/22 08:00 11/05/22 06:45 General: Oriented x1, Mild distress, Confused, Obese HEENT: Atraumatic, Other (dry mucous membranes. Poor dentition ) Neck: Supple Respiratory: Normal air movement, Diminished Cardiovascular: Other (Pacemaker left chest. Dialysis catheter right chest. ), Edema (2+ BLE), Abnormal pulses (weak pedal pulses), Irregular heart rate/rhythm Gastrointestinal: Normal bowel sounds, Non-distended Musculoskeletal: Other (prior amputation of left 1st toe) Integumentary: Pressure ulcer (sacrum stage 4. left third toe stage 2) Laboratory data -Reviewed Microbiology data -Reviewed Imagings Data: -Reviewed Conclusions/Impression: Problem list Sepsis COVID-19 infection Osteomyelitis on IV antibiotics Diabetes mellitus type 2 ESRD on hemodialysis Hypothyroidism Atrial fibrillation Prior CVA with right-sided weakness Hyperlipidemia Sepsis COVID-19 infection Candiduria -Positive COVID PCR on 11/02 - XR Chest 11/02: "Mild pulmonary edema is seen. The heart is moderately enlarged in size. Right venous catheter its tip in the SVC. Multi lead pacer device present. IMPRESSION: Mild CHF. " -Blood cultures 11/02: No growth to date -Urine culture 11/02: Presumptive Melba albicans; colony count > 100,000 CFU/mL - Hx atrial fibrillation on amiodarone PO WBC 18.9 Afebrile BUN 59, Cr 6.49 Osteomyelitis Left Foot - Patient has been on Meropenem and Vancomycin for the treatment of left foot osteomyelitis since 09/26 with plan for 6 weeks of IV antibiotics to end on 11/07 - Left foot wound culture from 09/06 with Klebsiella pneumoniae ESBL and Methicillin-resistant Staphyloccus aureus (MRSA) - Wound care per wound care team Recommendations - Continue meropenem and vancomycin for now - Candiduria: started on Micafungin 11/05 - ESRD: nephrology on case. Renally dose medications. Pharmacy also consulted. - Afib, hypotension: cardiology on case. on levophed drip. - strict blood glucose control - pressure ulcer sacrum: continue wound care per wound care team. Pressure offloading measures. turn patient Q2H, wedge pillow. low air-loss mattress. heel protectors. - apply barrier cream to emaciated area of sacrum/buttocks - continue supportive care and nutritional supplementation as tolerated Overall prognosis poor. Pending acceptance/transfer to tertiary facility for higher level of care. Case discussed with Boogie Eaton
--- NOTE | 2022-11-05 11:59 | P.PN ---
Subjective Date of Service: 11/05/22 Chief Complaint: Hypotension COVID-positive No change in patient's condition or condition patient to be transferred to [place] Review of Systems General: Weakness Respiratory: Shortness of Breath Physical Examination - Vital Signs Temperature: 97.9 F Blood Pressure: 124/44 Pulse: 74 Respirations: 18 Pulse Ox (%): 97 - Physical Exam General: Alert, Mild distress Respiratory: Diminished Cardiovascular: Edema (Amputation of the left toes extremity edema) Assessment And Plan - Current Problems (Diagnosis) (1) Shock Current Visit: Yes Status: Acute Plan: Patient admitted with hypotension incidentally COVID-positive patient is on dialysis to be transferred to [place] for continuous hemofiltration patient's troponins are significantly elevated white count is also elevated 3+ yeast in the room urine also start patient on micafungin patient's chest x-ray is clear is on vancomycin and meropenem (2) Osteomyelitis Current Visit: Yes Status: Acute Plan: Patient is on broad-spectrum antibiotic Qualifiers: Osteomyelitis location: foot (3) Non-STEMI (non-ST elevated myocardial infarction) Current Visit: Yes Status: Acute Plan: Troponins are significantly elevated on IV heparin no acute changes on EKG
--- NOTE | 2022-11-05 12:10 | P.BOP ---
Preoperative diagnosis: poor iv access, hypotension Postoperative diagnosis: same Primary procedure: 1. Placement of central line right femoral vein Secondary procedure: 2. Right femoral vein ultrasound Estimated blood loss: <5cc Specimen: none Findings: compressible femoral vein Anesthesia: Local Complications: None Implants: triple lumen Transferred to: ICU Condition: Fair
[2022-11-05] MEDS: ASPIRIN EC 81 MG TAB PO SCH (12:25)
[2022-11-05] MEDS: CLOPIDOGREL 75 MG TABLET PO SCH (12:26)
[2022-11-05] MEDS ORDERED: D5W IV SCH (13:00)
[2022-11-05] MEDS ORDERED: NOREPINEPHRINE IV SCH (13:00)
--- NOTE | 2022-11-05 13:04 | ECHO ---
HEIGHT: 5 ft 6 in WEIGHT: 242 lb 12.8 oz DATE OF STUDY: 11/05/[address]: Jesus Thomas NP 2-DIMENSIONAL: YES M.MODE: YES DOPPLER: YES COLOR FLOW: YES TDS: PORTABLE: YES DEFINITY: BUBBLE STUDY: DIAGNOSIS: NON ST ELEVATION MYOCARDIAL INFARCTION CARDIAC HISTORY: CATHERIZATION: NO SURGERY: NO PROSTHETIC VALVE: NO PACEMAKER: YES MEASUREMENTS (cm) DIASTOLIC (NORMALS) SYSTOLIC (NORMALS) IVSd 1.4 (0.6-1.2) LA Diam 3.1 (1.9-4.0) LVEF 43% LVIDd 5.1 (3.5-5.7) LVIDs 4.0 (2.0-3.5) %FS 21% LVPWd 1.4 (0.6-1.2) Ao Diam 2.7 (2.0-3.7) 2 DIMENSIONAL ASSESSMENT: RIGHT ATRIUM: NORMAL LEFT ATRIUM: NORMAL RIGHT VENTRICLE: NORMAL LEFT VENTRICLE: DEPRESSED EJECTION FRACTION TRICUSPID VALVE: MILD TRICUSPID REGURGITATION MITRAL VALVE: MODERATE MITRAL ANNULAR CALCIFICATION PULMONIC VALVE: AORTIC VALVE: PERICARDIAL EFFUSION: AORTIC ROOT: LEFT VENTRICULAR WALL MOTION: APICAL HYPOKINESIS DOPPLER/COLOR FLOW: SEE BELOW COMMENTS: 1. MILDLY DEPRESSED LEFT VENTRICULAR EJECTION FRACTION 40-45% 2. APICAL SEVERE HYPOKINESIS 3. MILD TRICUSPID REGURGITATION 4. MILD MITRAL REGURGITATION 5. GRADE I DIASTOLIC DYSFUNCTION TECHNOLOGIST: SARAHI JADE
[2022-11-05] MEDS: MICAFUNGIN SODIUM 100 MG in NA CHLORIDE 0.9% 100 ML IV SCH (13:14)
--- NOTE | 2022-11-05 13:38 | CON ---
Date of Consultation: 11/05/2022 CONSULTATION AND PROCEDURE History Of Present Illness: This is the case of an 82-year-old patient, admitted to the hospital wit h multiple medical problems including also hypotension and vasoconstrictors with poor peripheral acce ss. There is no access to give the vasoconstrictor. She has a hemodialysis catheter in the right up per chest. She has a pacemaker in the left upper chest, so they required central line placement. Past Medical History: Peripheral vascular disease, AFib, CVA, diabetes, hypertension, neuropathy, hy pothyroidism, renal failure, on hemodialysis. Past Surgical History: Includes thyroidectomy, cataract surgery, hysterectomy, pacemaker, left great toe amputation. Social History: She does not smoke. She does not drink alcohol. Family History: Noncontributory. Review of Systems: Unable to be obtained. Physical Examination: General: The patient is awake, alert. HEENT: Pupils anicteric. Chest: Clear. Abdomen: Soft and depressible. Extremities: Good capillary refill. Laboratory Data: WBC count of 18 with hemoglobin of 8.9. INR of 1.28 and potassium is 4.9. Assessment: Poor peripheral access. The plan is central line placement. In this case, we are going to select the right femoral area. We are going to get an ultrasound of that region for placement of the line to make sure that vein is still compressible. The benefits, alternatives, and risks were e xplained to her and to the , which include, but not limited to infection, bleeding, damage to adjacent structures, anesthesia complication, DVTs, PEs, TN, and even . They also understand th is may not relieve any symptoms and this is temporary line and should be removed as soon as possible. PROCEDURE: Preoperative Diagnoses: Poor peripheral access , hypotension. Procedures: 1.Placement of a central line, right femoral vein. 2.Ultrasound on the right femoral vein region. Anesthesia: Local. Complications: None. Implant: A triple-lumen central line placed in the right internal jugular vein. Findings: The ultrasound of the femoral region shows a compressible femoral vein. Description Of Procedure: After time-out, the right femoral area was prepped and draped in the usual sterile fashion. With using ultrasound, we were able to localize the vein and after injecting local anesthetic, I placed an 18-gauge needle in the right femoral vein at the first attempt. Guidewire w as passed through and needle was removed and a triple-lumen central line was placed using Seldinger t echnique. The area was secured in place with 3-0 nylon and covered with sterile dressings. The yazmin ent tolerated the procedure well. MICHAEL Voice ID: [id number] Report ID: [id number]
[2022-11-05] MEDS: MIDODRINE HCL 5 MG TABLET PO SCH ×2 (13:48→20:31)
--- NOTE | 2022-11-05 14:44 | PN ---
Subjective: The patient still could not tolerate dialysis as blood pressure dropped. The patient wa iting for transfer [facility]. Physical Examination: Vital Signs: Blood pressure 140/57, pulse of 79, afebrile. Chest: Crackles bilateral base. Heart: S1, S2. Systolic murmur. Abdomen: Soft, nontender. Extremity: Plus edema. Neuro: The patient is sleepy. Laboratory Data: Hemoglobin 8.9. Sodium 133, potassium 4.9, bicarb 26, BUN 59, creatinine 6.4, calc ium 8, phosphorus 6.6, albumin 2.4. BNP 16,000. Current Medications: The patient on include; 1.Meropenem. 2.Micafungin. 3.Vancomycin. 4.Levophed. 5.Heparin. 6.Epogen. 7.Atorvastatin. 8.Amiodarone. 9.Zofran. 10.Levothyroxine. Assessment And Plan: 1.End-stage renal disease with septic shock, pressor dependent. The patient could not tolerate conv entional dialysis. Waiting for transfer for CRRT. I am going to go ahead and send for cortisol and start the patient on midodrine and we will follow up. We will consider and rechallenge the patient w ith the dialysis tomorrow. 2.Hypertension, currently in shock. Hold all blood pressure medications. Start midodrine. 3.Septic shock. Continue current antibiotic. We will follow up with primary. 4.Coronary artery disease with congestive heart failure. We need to establish better volume control with CRRT. We will follow up. YUDITH Voice ID: [id number] Report ID: [id number]
[2022-11-05] MEDS: Meropenem 500 MG in NA CHLORIDE 0.9% 100 ML IV SCH (16:03)
--- NOTE | 2022-11-05 16:23 | CON ---
Date of Consultation: 11/05/2022 Reason For Consultation: Elevated troponin. History Of Present Illness: An 82-year-old female with history of diabetes, end-stage renal disease, on hemodialysis, hypothyroidism, stroke, and hypertension, presented because of low blood pressure a t the dialysis center, was found to be positive for COVID. The patient denies having any chest pain; however, her troponin level is in the 11,000 range and process is in place to take her to [facility] to start a CRRT continuous dialysis on her as she failed to go to the dialysis due to significant hypot ension and the transfer process is in place. Past Medical History: As outlined above in the HPI. Medications: Refer to reconciliation sheet for detailed list. Allergies: NO KNOWN DRUG ALLERGIES. Family History: No premature coronary artery disease or cancer. Social History: Does not smoke or drink. Does not use any drugs. Review of Systems: All systems reviewed and they were negative except what mentioned in HPI. Physical Examination: Vital Signs: Reviewed. Head and Neck: Pupils are equal, reactive to light. No cervical lymphadenopathy. Neck is supple. Thyroid is not enlarged. Lungs: Decreased breathing sounds bilaterally. No accessory muscle use or muscle retraction. Heart: Irregular. No extra sounds. Abdomen: Soft, nontender. Bowel sounds positive. No organomegaly. No masses or hernia. No rigidi ty or rebound. Extremities: Edema bilaterally. No clubbing or cyanosis. Intact pulses. Skin: No rash. Neurologic: Alert, awake with confusion. No focal deficits appreciated. Investigations: Troponin peaked at 16,367. BUN 59, creatinine 6.4, and hemoglobin is 8.9. On the e cho, there is apical hypokinesis. Assessment And Recommendations: 1.Non-ST elevation myocardial infarction. This could be still due to the COVID; however, there is a pical severe hypokinesis. This could be also stress-induced cardiomyopathy. She will need coronary angiogram; however, it seems like she has been hypertensive for some time and there was a plan to tra nsfer her to [facility] pending bed. While she gets dialyzed and stabilized, the patient then will need coronary angiogram which can be conducted at the receiving facility. 2.End-stage renal disease, on hemodialysis. She will need a continuous slow dialysis and for that r gricel, she being transferred. 3.Atrial fibrillation. She is in sinus. Continue current management. 4.COVID, on antibiotics. 5.Dyslipidemia. Continue statin. SR/MODL Voice ID: [id number] Report ID: [id number]
[2022-11-05] MEDS: ACETAMINOPHEN 500 MG TAB PO PRN (17:15)
[2022-11-05] MEDS: GABAPENTIN 100 MG CAP PO SCH (20:30)
[2022-11-05] MEDS: ATORVASTATIN 80 MG TAB PO SCH (20:30)
[2022-11-06] MEDS: INSULIN -REGULAR HUMAN 50 UNIT/0.5 ML ML SQ SCH ×4 (00:14→18:00)
[2022-11-06] MEDS: ACETAMINOPHEN 500 MG TAB PO PRN ×2 (01:10→23:01)
[2022-11-06] MEDS: LEVOTHYROXINE SOD 0.125 MG TAB PO SCH (05:51)
[2022-11-06 05:58] LABS: Albumin 2.2 g/dL (3.4-5.0); Bilirubin Total 0.6 mg/dL (0.2-1.0); Magnesium 2.5 mg/dL (1.6-2.4); Phosphorus 7.5 mg/dL (2.5-4.9); Potassium 5.5 mEq/L (3.5-5.1); Protein, Total 5.7 g/dL (6.4-8.2)
--- NOTE | 2022-11-06 08:12 | P.PN ---
Subjective Date of Service: 11/06/22 Chief Complaint: Generalized weakness hypertension mixed dialysis, COVID- positive Patient's condition is a little more stable today more alert currently on low- dose of Levophed unresponsive Review of Systems is unable to be obtained Physical Examination - Vital Signs Temperature: 97.3 F Blood Pressure: 163/54 Pulse: 67 Respirations: 17 Pulse Ox (%): 99 - Physical Exam General: Alert, Unresponsive Respiratory: Clear to auscultation bilaterally Cardiovascular: Edema Gastrointestinal: Normal bowel sounds, Soft and benign Assessment And Plan - Current Problems (Diagnosis) (1) Shock Current Visit: Yes Status: Acute Plan: Patient's condition seems to be stabilizing I strongly suspect that she has candidemia and is high risk continue with micafungin is on low-dose of vasopressors will discuss with nephrology (2) Osteomyelitis Current Visit: Yes Status: Acute Plan: Patient is on broad-spectrum antibiotic no change in antibiotics followed up by ID Qualifiers: Osteomyelitis location: foot (3) Non-STEMI (non-ST elevated myocardial infarction) Current Visit: Yes Status: Acute Plan: Continue with heparin for now repeat troponins Echocardiogram is abnormalMILDLY DEPRESSED LEFT VENTRICULAR EJECTION FRACTION 40-45% 2. APICAL SEVERE HYPOKINESIS 3. MILD TRICUSPID REGURGITATION 4. MILD MITRAL REGURGITATION 5. GRADE I DIASTOLIC DYSFUNCTIO seen by Dr. Tomlinson may be COVID induced changes and also has apical hypokinesis may have had an infarct being transferred to a tertiary care facility
--- NOTE | 2022-11-06 08:18 | P.PN ---
Date of Service: 11/06/22 Chief Complaint: Generalized weakness hypertension mixed dialysis, COVID- positive Subjective: Patient remains in ICU. On heparin drip and levophed drip. Mentation slightly improved from yesterday. Reports "not feeling right" Physical Examination Temp Pulse Resp BP Pulse Ox 97.3 F 67 17 163/54 H 99 11/06/22 04:00 11/06/22 06:30 11/06/22 06:30 11/06/22 06:30 11/06/22 06:30 General: Oriented x1, Mild distress, Confused, Obese HEENT: Atraumatic. dry mucous membranes. Poor dentition Neck: Supple Respiratory: Normal air movement, Diminished Cardiovascular: Pacemaker left chest. Dialysis catheter right chest. BLE edema 2+. 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 Integumentary: Pressure ulcer sacrum stage IV. Left third toe stage 2 Laboratory data -Reviewed Microbiology data -Reviewed Imagings Data: -Reviewed Medications list: Reviewed Assessment and plan Problem list Sepsis COVID-19 infection Osteomyelitis on IV antibiotics Diabetes mellitus type 2 ESRD on hemodialysis Hypothyroidism Atrial fibrillation Prior CVA with right-sided weakness Hyperlipidemia Sepsis COVID-19 infection Candiduria -Positive COVID PCR on 11/02 - XR Chest 11/02: "Mild pulmonary edema is seen. The heart is moderately enlarged in size. Right venous catheter its tip in the SVC. Multi lead pacer device present. IMPRESSION: Mild CHF. " -Blood cultures 11/02: No growth to date -Urine culture 11/02: Presumptive Melba albicans; colony count > 100,000 CFU/mL - Hx atrial fibrillation on amiodarone PO WBC 18.9 Afebrile BUN 59, Cr 6.94 Osteomyelitis Left Foot - Patient has been on Meropenem and Vancomycin for the treatment of left foot osteomyelitis since 09/26 with plan for 6 weeks of IV antibiotics to end on 11/07 - Left foot wound culture from 09/06 with Klebsiella pneumoniae ESBL and Methicillin-resistant Staphyloccus aureus (MRSA) - Wound care per wound care team Recommendations - Continue meropenem and vancomycin for now - Candiduria: on Micafungin IV. - ESRD: nephrology on case. Renally dose medications. Pharmacy also consulted. - strict blood glucose control - pressure ulcer sacrum: continue wound care per wound care team. Pressure offloading measures. turn patient Q2H, wedge pillow. low air-loss mattress. heel protectors. - apply barrier cream to emaciated area of sacrum/buttocks - continue supportive care and nutritional supplementation as tolerated Overall prognosis poor. Pending acceptance/transfer to tertiary facility for higher level of care and [facility] [employer]. Case discussed with Boogie Eaton
[2022-11-06] MEDS: AMIODARONE HCL 200 MG TAB PO SCH ×2 (09:00→20:41)
[2022-11-06] MEDS: DOCUSATE NA 100 MG CAP PO SCH ×2 (09:00→20:40)
[2022-11-06] MEDS: ASPIRIN EC 81 MG TAB PO SCH (09:00)
[2022-11-06] MEDS: POLYETHYL GLY 3350 17 GM/DOSE PO SCH (09:00)
[2022-11-06] MEDS: CLOPIDOGREL 75 MG TABLET PO SCH (09:00)
[2022-11-06] MEDS: ASCORBIC ACID 500 MG TABLET PO SCH ×2 (09:00→20:40)
[2022-11-06] MEDS: MICAFUNGIN SODIUM 100 MG in NA CHLORIDE 0.9% 100 ML IV SCH (09:02)
[2022-11-06] MEDS: HEPARIN/D5W 25,000 UNIT/500 ML BAG IV SCH (09:09)
[2022-11-06] MEDS ORDERED: ALBUMIN HUMAN 25% 100 ML IV ONE (09:44)
--- NOTE | 2022-11-06 10:17 | RAD REPORT ---
EXAM DESCRIPTION: RAD - Abdomen 1 View (KUB) - 11/06/2022 9:33 am CLINICAL HISTORY: Dobhoff placement COMPARISON: No comparisons TECHNIQUE: Single AP view of the abdomen. FINDINGS: Weighted enteric tube tip projects along the fundus of the stomach. Nonobstructive bowel gas pattern. No air-fluid levels, free air, or pneumatosis. No suspicious calcif ications. No significant bony abnormality. IMPRESSION: Weighted enteric tube tip projects along the fundus of the stomach.
[2022-11-06] MEDS: MIDODRINE HCL 5 MG TABLET PO SCH ×2 (10:31→20:40)
[2022-11-06] MEDS ORDERED: VANCOMYCIN 1 GM in NA CHLORIDE 0.9% 250 ML IVPB SCH (11:00)
[2022-11-06] MEDS: D5W IV SCH (11:19)
[2022-11-06] MEDS: NOREPINEPHRINE IV SCH (11:19)
[2022-11-06] MEDS: EPOETIN ALFA 10,000 UNIT/ML VIAL IV SCH (12:43)
[2022-11-06] MEDS ORDERED: NEPRO 1,000 ML BOT RTH SCH (13:00)
--- NOTE | 2022-11-06 13:12 | PN ---
Date of Progress Note: 11/06/2022 Subjective: The patient was admitted with sepsis, low blood pressure, altered mental status __ on dialysis. Yesterday, we started the patient on midodrine. Blood pressure started to stabilize . The patient on Levophed. Physical Examination: Vital Signs: Currently, blood pressure 140/53, pulse of 67, afebrile. Chest: Crackles bilateral. Heart: S1, S2. Systolic murmur. Abdomen: Soft, nontender. Extremities: +2 edema. Big toe amputation. Neurologic: Alert. No focality. Laboratory Data: Hemoglobin 8.9. Sodium 128, potassium 5.5, bicarb 24, BUN 59, creatinine 6.9, calc ium 7.7, phosphorus 7.5, magnesium 2.5. BNP 7000. Albumin 2.2. Current Medications: The patient on include midodrine 10 t.i.d., meropenem, micafungin, vancomycin, Levophed, Plavix, Epogen, gabapentin at bedtime. Assessment And Plan: 1.End-stage renal disease, over volume with hyperkalemia. I am going to try start dialys is today and we will dialyze on low temperature, low blood flow. Then if succeed, we will do another session tomorrow. 2.Hypertension, currently blood pressure on the lower side. Hold all blood pressure medication. 3.Hyperkalemia. The patient is going to be dialyzed on low potassium bath. 4.Over volume. The patient is going to be challenged. 5.Secondary hyperparathyroidism. The patient poor intake. We will hold on any binder. 6.Septic shock. Continue Levophed, add midodrine, and we will follow up. HARRIETT/LAYLA Voice ID: [id number] Report ID: [id number]
--- NOTE | 2022-11-06 17:06 | PN ---
Date of Progress Note: 11/06/2022 Subjective: Seen by bedside. She is doing well. No chest pain. No shortness of breath and is bein g dialyzed today and is able to tolerate it. Review of Systems: No chest pain. Never had chest pain. No shortness of breath, orthopnea, cough. No nausea, vomiting , diarrhea. All other systems reviewed and they were negative. Objective: Vital Signs: Reviewed. Head and Neck: Pupils are equal, reactive to light. Intact eye movements. No JVD. No cervical lym phadenopathy. Neck is supple. Thyroid is not enlarged. Lungs: Clear to auscultation bilaterally. No rhonchi, wheezing, or crackles. No accessory muscle u se. Heart: Irregular. No extra sounds. Abdomen: Soft, nontender. Bowel sounds positive. No organomegaly. No masses or hernia. No rigidi ty or rebound. Extremities: There is edema bilaterally. No clubbing or cyanosis. Intact pulses. Skin: No rash. Neurologic: Alert, awake, oriented x3. No acute focal deficits appreciated. Lymph Nodes: No cervical or axillary lymphadenopathy. Investigations: The troponin has dropped down to 7991. BUN 59, creatinine 6.9. Assessment And Recommendations: 1.Non-ST elevation myocardial infarction in the setting of COVID and also significant hypotension. So, this could still be demand ischemia, but I recommend coronary angiogram. We will plan on doing t hat after she gets stable on dialysis with a normal blood pressure. 2.End-stage renal disease with hypotension. This is resolved. Now is being dialyzed. If she ethan nues to be stable, we will plan for coronary angiogram on Friday. 3.Atrial fibrillation. She is in sinus. Continue current management. 4.Dyslipidemia. Continue statin. SR/MODL Voice ID: [id number] Report ID: [id number]
[2022-11-06] MEDS: Meropenem 500 MG in NA CHLORIDE 0.9% 100 ML IV SCH (17:39)
[2022-11-06] MEDS: GABAPENTIN 100 MG CAP PO SCH (20:40)
[2022-11-06] MEDS: ATORVASTATIN 80 MG TAB PO SCH (20:40)
[2022-11-07] MEDS: D5W IV SCH ×2 (03:23→20:05)
[2022-11-07] MEDS: NOREPINEPHRINE IV SCH ×2 (03:23→20:05)
[2022-11-07 03:38] LABS: Renal Epithelial <5 /HPF (None Seen); Specific Gravity 1.014 (1.005-1.030); Urine Bacteria None Seen /HPF (<20); Urine Bilirubin NEGATIVE (Negative); Urine Blood 2+ (Negative); Urine Clarity Extremely Turbid (Clear); Urine Color Light-Orange (Yellow); Urine Glucose NEGATIVE (Negative); Urine Protein 2+ (Negative); Urine RBC 21-50 /HPF (None Seen); Urine Urobilinogen Normal (Normal); Urine WBC Clump Many /HPF (None Seen)
[2022-11-07 04:53] LABS: Albumin 2.4 g/dL (3.4-5.0); Bilirubin Total 0.7 mg/dL (0.2-1.0); Magnesium 2.3 mg/dL (1.6-2.4); Phosphorus 5.8 mg/dL (2.5-4.9); Potassium 4.4 mEq/L (3.5-5.1); Protein, Total 5.6 g/dL (6.4-8.2)
[2022-11-07] MEDS: INSULIN -REGULAR HUMAN 50 UNIT/0.5 ML ML SQ SCH ×4 (05:45→17:48)
[2022-11-07] MEDS: LEVOTHYROXINE SOD 0.125 MG TAB PO SCH (05:45)
--- NOTE | 2022-11-07 07:53 | P.PN ---
Date of Service: 11/07/22 Chief Complaint: Generalized weakness hypertension mixed dialysis, COVID- positive Subjective: Patient tolerated dialysis yesterday with 2L removed. Patient seen and examined in ICU. In no apparent distress. Remains confused. Physical Examination Temp Pulse Resp BP Pulse Ox 97.2 F 74 16 133/52 L 100 11/07/22 04:00 11/07/22 06:45 11/07/22 06:45 11/07/22 06:45 11/07/22 06:45 General: Oriented x1-2. In no apparent distress. Confused, Obese HEENT: Atraumatic. dry mucous membranes. Poor dentition Neck: Supple Respiratory: Normal air movement, Diminished Cardiovascular: Pacemaker left chest. Dialysis catheter right chest. BLE edema 2+. 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 Integumentary: Pressure ulcer sacrum stage IV. Left third toe stage 2 Laboratory data -Reviewed Microbiology data -Reviewed Imagings Data: -Reviewed Medications list: Reviewed Assessment and plan Problem list Sepsis COVID-19 infection Osteomyelitis on IV antibiotics Diabetes mellitus type 2 ESRD on hemodialysis Hypothyroidism Atrial fibrillation Prior CVA with right-sided weakness Hyperlipidemia Sepsis COVID-19 infection Candiduria -Positive COVID PCR on 11/02 - XR Chest 11/02: "Mild pulmonary edema is seen. The heart is moderately enlarged in size. Right venous catheter its tip in the SVC. Multi lead pacer device present. IMPRESSION: Mild CHF. " -Blood cultures 11/02: No growth to date -Urine culture 11/02: Presumptive Melba albicans; colony count > 100,000 CFU/mL - On Micafungin IV (started 11/06) Osteomyelitis Left Foot - Patient has been on Meropenem and Vancomycin for the treatment of left foot osteomyelitis since 09/26 with plan for 6 weeks of IV antibiotics to end on 11/07 - Left foot wound culture from 09/06 with Klebsiella pneumoniae ESBL and Methicillin-resistant Staphyloccus aureus (MRSA) - Wound care per wound care team Recommendations - Osteomyelitis: Last day of meropenem and vancomycin to be completed today 11/07. - Candiduria: on Micafungin IV. continue for 14 days (11/06 to 11/20) - ESRD: nephrology on case. Renally dose medications. Pharmacy also consulted. - strict blood glucose control - pressure ulcer sacrum: continue wound care per wound care team. Pressure offloading measures. turn patient Q2H, wedge pillow. low air-loss mattress. heel protectors. - apply barrier cream to emaciated area of sacrum/buttocks - continue supportive care and nutritional supplementation as tolerated Case discussed with Boogie Eaton
[2022-11-07] MEDS: ASCORBIC ACID 500 MG TABLET PO SCH ×2 (08:46→21:51)
[2022-11-07] MEDS: DOCUSATE NA 100 MG CAP PO SCH ×2 (08:46→21:48)
[2022-11-07] MEDS: MIDODRINE HCL 5 MG TABLET PO SCH ×2 (08:46→21:48)
[2022-11-07] MEDS: CLOPIDOGREL 75 MG TABLET PO SCH (08:46)
[2022-11-07] MEDS: AMIODARONE HCL 200 MG TAB PO SCH ×2 (08:46→21:48)
[2022-11-07] MEDS: POLYETHYL GLY 3350 17 GM/DOSE PO SCH (08:46)
[2022-11-07] MEDS: ASPIRIN EC 81 MG TAB PO SCH (08:46)
[2022-11-07] MEDS: MICAFUNGIN SODIUM 100 MG in NA CHLORIDE 0.9% 100 ML IV SCH (08:47)
[2022-11-07 10:10] LABS: Absolute Lymphocytes (CBC) 0.7 K/uL (0.7-4.9); Hematocrit 19.7 % (36.0-45.0); Lymphocytes % 3.8 % (15.3-44.8); MCV 95.2 fL (80-100); MPV 8.6 fL (7.6-11.3); Platelets 204 thou/uL (152-406); RBC Red Blood Cell Count 2.07 M/uL (3.86-4.86)
--- NOTE | 2022-11-07 12:13 | P.PN ---
Subjective Date of Service: 11/07/22 Chief Complaint: Hypotension on dialysis Patient is more alert today more responsive she is communicating although still little confused and is currently being dialyzed transfer is on hold anemic today Review of Systems is unable to be obtained Physical Examination - Vital Signs Temperature: 97.7 F Blood Pressure: 151/53 Pulse: 70 Respirations: 17 Pulse Ox (%): 98 - Physical Exam General: Alert, Cooperative Respiratory: Clear to auscultation bilaterally Cardiovascular: Normal S1 S2, Edema Gastrointestinal: Normal bowel sounds, Soft and benign Assessment And Plan - Current Problems (Diagnosis) (1) Shock Current Visit: Yes Status: Acute Plan: Patient's condition is improving shock has stabilized we will try and decrease the Levophed patient undergoing dialysis very stable transfer was declined transfused 1 unit of packed blood cells no history of GI bleed patient is tolerating tube feeds (2) Osteomyelitis Current Visit: Yes Status: Acute Plan: Patient has completed a 6 weeks of therapy will DC vancomycin and meropenem Qualifiers: Osteomyelitis location: foot (3) Non-STEMI (non-ST elevated myocardial infarction) Current Visit: Yes Status: Acute Plan: Continue with heparin f patient's troponins are declining Echocardiogram is abnormalMILDLY DEPRESSED LEFT VENTRICULAR EJECTION FRACTION 40-45% 2. APICAL SEVERE HYPOKINESIS 3. MILD TRICUSPID REGURGITATION 4. MILD MITRAL REGURGITATION 5. GRADE I DIASTOLIC DYSFUNCTIO s Discussed with Dr. Tomlinson and Dr. Crum patient is stable to undergo cardiac cath tomorrow and will evaluate for an LTAC
[2022-11-07] MEDS ORDERED: NA CHLORIDE 0.9% 250 ML ONE (17:42)
[2022-11-07] MEDS: ALBUMIN HUMAN 25% 100 ML IV ONE ×2 (18:00→20:32)
--- NOTE | 2022-11-07 18:44 | PN ---
Date of Progress Note: 11/07/2022 Subjective: Seen by bedside. Doing clinically well. No chest pain. Review of Systems: No chest pain, shortness of breath, orthopnea, or cough. No nausea, vomiting, or diarrhea. All othe r systems were reviewed, they are negative. Objective: Vital Signs: Reviewed. Head and Neck: Pupils are equal, reactive to light. Intact eye movements. No JVD. No cervical lym phadenopathy. Neck is supple. Thyroid is not enlarged. Lungs: Clear to auscultation bilaterally. No rhonchi, wheezing, or crackles. No accessory muscle u se. Heart: Regular rate and rhythm. No extra sounds. Abdomen: Soft, nontender. Bowel sounds positive. No organomegaly. No masses or hernia. No rigidi ty or rebound. Extremities: No edema, clubbing, or cyanosis. Intact pulses. Skin: No rash. No nodule. Neuro: Alert, awake, oriented x3. No acute focal deficits appreciated. Investigations: BUN 44, creatinine 5.1, hemoglobin 6.6. Assessment And Recommendations: 1.Vtx-[id number] myocardial infarction. The patient will need coronary angiogram. She has low ej ection fraction. However, she is severely anemic, hemoglobin is 6.6. This needs to be worked up and treated first before committing her to dual antiplatelet therapy, in case she needs a PCI. At this point, she is chest pain free. We will plan for coronary angiogram once her anemia status is correct ed and worked up. 2.End-stage renal disease, on dialysis. 3.Atrial fibrillation, controlled. Continue current management including amiodarone and she is on IV heparin. 4.Dyslipidemia. Continue statin. SR/MODL Voice ID: [id number] Report ID: [id number]
[2022-11-07] MEDS: HEPARIN/D5W 25,000 UNIT/500 ML BAG IV SCH (21:47)
[2022-11-07] MEDS: ATORVASTATIN 80 MG TAB PO SCH (21:48)
[2022-11-07] MEDS: GABAPENTIN 100 MG CAP PO SCH (21:48)
[2022-11-07] MEDS ORDERED: EPOETIN ALFA-EPBX 10,000 UNIT/ML VIAL ONE (21:56)
[2022-11-07] MEDS: EPOETIN ALFA 10,000 UNIT/ML VIAL IV SCH (22:00)
--- NOTE | 2022-11-08 01:20 | PN ---
Date of Progress Note: 11/07/2022 Chief Complaint: End-stage renal disease, on hemodialysis. History Of Present Illness: Patient is on pressors. She had dialysis done yesterday and ultrafiltra tion was obtained. Patient has anasarca. She was treated with Lokelma for hyperkalemia. Potassium level is within normal limits. Patient will have dialysis today with ultrafiltration, 2 potassium di alysate will be used to prevent hyperkalemic episodes. The patient has history of UTI with multidrug -resistant microorganisms. Patient is treated for decubitus ulcer. Review of Systems: Patient is awake. Denies complaints. Physical Examination: Lungs: Diminutive breath sounds at bases. Heart: S1, S2. Abdomen: Soft. Extremities: Edema present. Impression And Plan: 1.End-stage renal disease. The patient is to have dialysis today with ultrafiltration. Monitor blo od pressure closely. Continue Levophed for blood pressure support. Hyperkalemia, resolved. Continu e potassium 2 dialysate and continue low-potassium diet. Patient completed Lokelma as treatment of i ntermittent hyperkalemia. 2.History of hypertension. Blood pressure medication on hold because of hypotensive episodes. 3.Hyponatremia due to fluid overload. Patient had dialysis with ultrafiltration. Continue current treatment with dialysis. Continue low-sodium diet. EB/MODL Voice ID: [id number] Report ID: [id number]
[2022-11-08] MEDS: INSULIN -REGULAR HUMAN 50 UNIT/0.5 ML ML SQ SCH ×4 (01:35→16:56)
[2022-11-08] MEDS: ACETAMINOPHEN 500 MG TAB PO PRN (02:12)
[2022-11-08] MEDS: FENTANYL CITR 100 MCG/2 ML IV PRN ×3 (05:19→20:40)
[2022-11-08] MEDS: LEVOTHYROXINE SOD 0.125 MG TAB PO SCH (05:20)
--- NOTE | 2022-11-08 08:47 | P.PN ---
Subjective Date of Service: 11/08/22 Chief Complaint: Hypotension shock Patient's condition remained stable diastolic is low still on high doses of Levophed oxygenation satisfactory Review of Systems is unable to be obtained Physical Examination - Vital Signs Temperature: 97.6 F Blood Pressure: 134/41 Pulse: 62 Respirations: 17 Pulse Ox (%): 100 - Physical Exam General: Unresponsive Respiratory: Clear to auscultation bilaterally Cardiovascular: Regular rate/rhythm, Edema Gastrointestinal: Normal bowel sounds, Soft and benign - Studies Microbiology Data (last 24 hrs): 11/02/22 13:30 Blood - Blood Aerobic Blood Culture - Final No growth in 5 days. 11/02/22 13:30 Blood - Blood Anaerobic Blood Culture - Final No growth in 5 days. 11/02/22 13:42 Blood - Blood Aerobic Blood Culture - Final No growth in 5 days. 11/02/22 13:42 Blood - Blood Anaerobic Blood Culture - Final No growth in 5 days. Assessment And Plan - Current Problems (Diagnosis) (1) Shock Current Visit: Yes Status: Acute Plan: Patient still continues to remain in shock requiring high doses of Levophed we will try and wean her going dialysis patient was severely anemic and hemoglobin is now satisfactory at 7.5 will order labs patient is on tube feeds still has lower extremity edema with some discoloration of the right foot continue with micafungin (2) Osteomyelitis Current Visit: Yes Status: Acute Plan: Antibiotics have been DC'd Qualifiers: Osteomyelitis location: foot (3) Non-STEMI (non-ST elevated myocardial infarction) Current Visit: Yes Status: Acute Plan: Continue with present therapy possible cardiac cath on Friday
[2022-11-08] MEDS: CLOPIDOGREL 75 MG TABLET PO SCH (10:22)
[2022-11-08] MEDS: DOCUSATE NA 100 MG CAP PO SCH ×2 (10:22→20:41)
[2022-11-08] MEDS: ASPIRIN EC 81 MG TAB PO SCH (10:22)
[2022-11-08] MEDS: MIDODRINE HCL 5 MG TABLET PO SCH ×2 (10:22→20:41)
[2022-11-08] MEDS: ASCORBIC ACID 500 MG TABLET PO SCH ×2 (10:23→20:41)
[2022-11-08] MEDS: MICAFUNGIN SODIUM 100 MG in NA CHLORIDE 0.9% 100 ML IV SCH (10:23)
[2022-11-08] MEDS: AMIODARONE HCL 200 MG TAB PO SCH ×2 (10:24→20:41)
[2022-11-08] MEDS: SODIUM HYPOCHLORITE 0.25% 473 ML TOP SCH (10:24)
[2022-11-08] MEDS: POLYETHYL GLY 3350 17 GM/DOSE PO SCH (10:26)
[2022-11-08 11:46] LABS: Hematocrit 20.7 % (36.0-45.0); MCV 93.4 fL (80-100); MPV 8.4 fL (7.6-11.3); Platelets 191 thou/uL (152-406); RBC Red Blood Cell Count 2.22 M/uL (3.86-4.86)
[2022-11-08 12:05] LABS: Albumin 2.4 g/dL (3.4-5.0); Bilirubin Total 0.6 mg/dL (0.2-1.0); Potassium 3.7 mEq/L (3.5-5.1); Protein, Total 5.6 g/dL (6.4-8.2)
[2022-11-08] MEDS: D5W IV SCH (12:31)
[2022-11-08] MEDS: NOREPINEPHRINE IV SCH (12:31)
--- NOTE | 2022-11-08 12:59 | P.PN ---
Subjective Date of Service: 11/08/22 Chief Complaint: Hypotension shock Subjective: No new changes Physical Examination - Vital Signs Temperature: 97.6 F Blood Pressure: 134/41 Pulse: 62 Respirations: 14 Pulse Ox (%): 98 - Physical Exam General: Other (chronically ill-appearing) HEENT: Atraumatic, Normocephalic Neck: Supple, JVD not distended Respiratory: Other (symmetric chest expansion) Cardiovascular: No rubs Gastrointestinal: Soft and benign, No rebound Musculoskeletal: No clubbing Integumentary: No warmth Neurological: Normal tone Urinary: Other (no bladder distention) External genitalia: Deferred Rectal: Deferred - Studies Microbiology Data (last 24 hrs): 11/02/22 13:30 Blood - Blood Aerobic Blood Culture - Final No growth in 5 days. 11/02/22 13:30 Blood - Blood Anaerobic Blood Culture - Final No growth in 5 days. 11/02/22 13:42 Blood - Blood Aerobic Blood Culture - Final No growth in 5 days. 11/02/22 13:42 Blood - Blood Anaerobic Blood Culture - Final No growth in 5 days. Assessment And Plan - Plan 1. End-stage renal disease. Cont HD TTS. 2. Shock likely septic from L foot osteomyelitis/covid infection/candiduria. On levo gtt. 3. L Foot osteomyelitis. Antimicrobials per ID service. 4. NSTEMI. Per Cardiology. Possible LHC on Friday. 5. Anemia. JOHNNY per protocol. 6. Renal osteodystrophy. Monitor serum calcium and phosphorus.
--- NOTE | 2022-11-08 16:02 | PN ---
Subjective: Patient has on vasopressors. Opens eyes spontaneously. by the bedside. I exam ined the patient in presence of the nurse in ICU bed 8. Patient denies any chest pain, back pain, or abdominal pain. Objective: Vital signs: Reviewed. Lungs: Basal crackles. Heart: S1, S2. Regular. Abdomen: Soft, nontender. Bowel sounds present. Extremities: 3+ edema. Laboratory Data: WBC 18.5, hemoglobin 7.5, platelets 204. BUN 44, creatinine 5. Patient had dialys is yesterday. Urine cultures are growing Melba, currently on micafungin. Assessment And Plan: Sepsis, history of osteomyelitis of the foot, leukocytosis, anemia, end-stage r enal disease, candiduria. We will also recommend to add empirically vancomycin and cefepime for 7 da ys as patient is on vasopressors. Consider comfort care. We will follow the patient closely. NF/MODL Voice ID: [id number] Report ID: [id number]
--- NOTE | 2022-11-08 18:44 | PN ---
Date of Progress Note: 11/08/2022 Subjective: Seen by bedside. No changes. She has an OG tube and she is not able to swallow. Review of Systems: No chest pain or shortness of breath. She has generalized swelling of her body. No nausea, vomiting , diarrhea. All other systems reviewed and they were negative. Physical Examination: Vital Signs: Reviewed. Head and Neck: Pupils are equal, reactive to light. Intact eye movements. No JVD. No cervical lym phadenopathy. Neck is supple. Thyroid is not enlarged. Lungs: Decreased breathing sounds. No accessory muscle use or muscle retraction. Heart: Regular rate and rhythm. No extra sounds. Abdomen: Soft, nontender. Bowel sounds positive. No organomegaly. No masses or hernia. No rigidi ty or rebound. Extremities: 3+ edema bilaterally. No clubbing or cyanosis. Intact pulses. Skin: No rash. Neurologic: Alert, awake, oriented x3. No acute focal deficits appreciated. Investigations: Labs were reviewed. Assessment And Recommendations: 1.Non-ST elevation myocardial infarction. The patient is still not stable for coronary angiogram an d troponin trended down already and she has no chest pain. I recommend aggressive evaluation of her anemia first and then we will plan for coronary angiogram early next week. 2.End-stage renal disease, on hemodialysis. 3.Atrial fibrillation, controlled. Continue current management. 4.Dyslipidemia. Continue statin. SR/MODL Voice ID: [id number] Report ID: [id number]
[2022-11-08] MEDS: ATORVASTATIN 80 MG TAB PO SCH (20:41)
[2022-11-08] MEDS: GABAPENTIN 100 MG CAP PO SCH (20:50)
[2022-11-09] MEDS: INSULIN -REGULAR HUMAN 50 UNIT/0.5 ML ML SQ SCH ×4 (01:07→17:59)
[2022-11-09] MEDS: HEPARIN/D5W 25,000 UNIT/500 ML BAG IV SCH (03:45)
[2022-11-09 05:32] LABS: Hematocrit 20.1 % (36.0-45.0); MCV 93.7 fL (80-100); MPV 8.6 fL (7.6-11.3); Platelets 200 thou/uL (152-406); RBC Red Blood Cell Count 2.15 M/uL (3.86-4.86)
[2022-11-09 06:00] LABS: Albumin 2.2 g/dL (3.4-5.0); Bilirubin Total 0.6 mg/dL (0.2-1.0); Potassium 3.6 mEq/L (3.5-5.1); Protein, Total 5.5 g/dL (6.4-8.2)
[2022-11-09] MEDS: LEVOTHYROXINE SOD 0.125 MG TAB PO SCH (06:26)
[2022-11-09] MEDS: AMIODARONE HCL 200 MG TAB PO SCH ×2 (09:00→20:42)
[2022-11-09] MEDS: DOCUSATE NA 100 MG CAP PO SCH ×2 (09:00→20:42)
[2022-11-09] MEDS: POLYETHYL GLY 3350 17 GM/DOSE PO SCH (09:00)
[2022-11-09] MEDS: ASPIRIN EC 81 MG TAB PO SCH (10:00)
[2022-11-09] MEDS: MICAFUNGIN SODIUM 100 MG in NA CHLORIDE 0.9% 100 ML IV SCH (10:00)
[2022-11-09] MEDS: CLOPIDOGREL 75 MG TABLET PO SCH (10:00)
[2022-11-09] MEDS: ASCORBIC ACID 500 MG TABLET PO SCH ×2 (10:00→20:45)
[2022-11-09] MEDS: MIDODRINE HCL 5 MG TABLET PO SCH ×2 (10:00→20:44)
--- NOTE | 2022-11-09 10:14 | P.PN ---
Subjective Date of Service: 11/09/22 Chief Complaint: Non-STEMI possible sepsis Patient is doing much better she is more alert responsive cooperative hemodynamically stable Review of Systems General: Weakness Respiratory: Shortness of Breath Physical Examination - Vital Signs Temperature: 97.6 F Blood Pressure: 134/41 Pulse: 62 Respirations: 14 Pulse Ox (%): 98 - Physical Exam General: Alert, In no apparent distress Respiratory: Clear to auscultation bilaterally Cardiovascular: Regular rate/rhythm, Normal S1 S2, Edema Assessment And Plan - Current Problems (Diagnosis) (1) Osteomyelitis Current Visit: Yes Status: Acute Plan: Antibiotics have been DC'd Qualifiers: Osteomyelitis location: foot (2) Non-STEMI (non-ST elevated myocardial infarction) Current Visit: Yes Status: Acute Plan: Patient has non-STEMI continue with IV heparin possible cardiac cath on Friday and then possible transfer to an LTAC (3) Anemia Current Visit: Yes Status: Acute Plan: We will transfuse another unit of packed red blood cells Qualifiers: Anemia type: due to chronic kidney disease (4) Chronic renal failure Current Visit: Yes Status: Acute Plan: Patient is on dialysis (5) Sepsis Current Visit: Yes Status: Acute Plan: Possible Melba bacteremia patient is on micafungin 1 3 beta glucan has been ordered weaning off the Levophed Qualifiers: Sepsis type: sepsis due to unspecified organism
[2022-11-09] MEDS ORDERED: NA CHLORIDE 0.9% 250 ML ONE (11:10)
[2022-11-09] MEDS ORDERED: FUROSEMIDE 40 MG/4 ML VIAL IV ONE (14:00)
[2022-11-09 16:55] LABS: Potassium 3.6 mEq/L (3.5-5.1)
[2022-11-09] MEDS: SODIUM HYPOCHLORITE 0.25% 473 ML TOP SCH (18:00)
[2022-11-09] MEDS: ATORVASTATIN 80 MG TAB PO SCH (20:44)
[2022-11-09] MEDS: GABAPENTIN 100 MG CAP PO SCH (20:44)
--- NOTE | 2022-11-10 00:15 | PN ---
Date of Progress Note: 11/09/2022 Chief Complaint: End-stage renal disease, on hemodialysis; hypotension; shock; COVID pneumonia. Subjective: Patient remains in ICU. She is feeling better. She is off Levophed drip, which is in w eaning mode. Review of Systems: Denies chest pain, palpitation. Physical Examination: Lungs: Diminished breath sounds at bases. Heart: S1, S2. Abdomen: Soft, benign. Extremities: Minimal edema. Laboratory Data: Blood culture final result no growth. Impression And Plan: 1.End-stage renal disease. Patient will continue dialysis 3 times per week. Today, patient receive d blood transfusion, status post IV Lasix after blood transfusion. Shock likely septic from last ___ myelitis and COVID infection, candiduria. Patient is on micafungin. Continue Levophed and w leobardo off according to blood pressure. 2.Left foot osteomyelitis. Antimicrobials per ID. 3.[id number] myocardial infarction per Cardiology. 4.Anemia, on JOHNNY. Patient received blood transfusion. 5.Renal osteodystrophy. Monitor calcium and phosphorus. EB/MODL Voice ID: [id number] Report ID: [id number]
[2022-11-10] MEDS ORDERED: NOREPINEPHRINE 4 MG/4 ML VIAL ONE (02:04)
[2022-11-10] MEDS: INSULIN -REGULAR HUMAN 50 UNIT/0.5 ML ML SQ SCH ×4 (02:12→17:50)
[2022-11-10] MEDS: NOREPINEPHRINE IV SCH (02:15)
[2022-11-10] MEDS: D5W IV SCH (02:15)
[2022-11-10] MEDS: LEVOTHYROXINE SOD 0.125 MG TAB PO SCH (05:24)
[2022-11-10 05:49] LABS: MCV 93.6 fL (80-100); MPV 8.7 fL (7.6-11.3); Platelets 212 thou/uL (152-406); RBC Red Blood Cell Count 2.46 M/uL (3.86-4.86)
[2022-11-10 06:07] LABS: Albumin 2.2 g/dL (3.4-5.0); Bilirubin Total 0.6 mg/dL (0.2-1.0); Potassium 3.8 mEq/L (3.5-5.1); Protein, Total 5.7 g/dL (6.4-8.2)
[2022-11-10] MEDS ORDERED: POTASSIUM 25 MEQ EFFERV TAB PO ONE (08:26)
[2022-11-10] MEDS: DOCUSATE NA 100 MG CAP PO SCH ×2 (09:00→20:41)
[2022-11-10] MEDS: AMIODARONE HCL 200 MG TAB PO SCH ×2 (09:00→20:42)
[2022-11-10] MEDS: POLYETHYL GLY 3350 17 GM/DOSE PO SCH (09:00)
[2022-11-10] MEDS: MICAFUNGIN SODIUM 100 MG in NA CHLORIDE 0.9% 100 ML IV SCH (09:10)
[2022-11-10] MEDS: ASCORBIC ACID 500 MG TABLET PO SCH ×2 (09:10→20:47)
[2022-11-10] MEDS: SODIUM HYPOCHLORITE 0.25% 473 ML TOP SCH (09:11)
[2022-11-10] MEDS: ASPIRIN EC 81 MG TAB PO SCH (09:11)
[2022-11-10] MEDS: CLOPIDOGREL 75 MG TABLET PO SCH (09:11)
[2022-11-10] MEDS: MIDODRINE HCL 5 MG TABLET PO SCH ×2 (09:11→20:42)
[2022-11-10] MEDS: HEPARIN/D5W 25,000 UNIT/500 ML BAG IV SCH (09:29)
[2022-11-10] MEDS: ACETAMINOPHEN 500 MG TAB PO PRN ×2 (09:29→14:03)
--- NOTE | 2022-11-10 09:33 | P.PN ---
Subjective Date of Service: 11/10/22 Chief Complaint: Non-STEMI possible sepsis Patient is doing much better she is alert and oriented x3 will have some lower extremity edema on minimal Levophed Review of Systems General: Weakness Respiratory: Shortness of Breath Physical Examination - Vital Signs Temperature: 96.8 F Blood Pressure: 87/54 Pulse: 57 Respirations: 17 Pulse Ox (%): 90 - Physical Exam General: Alert, In no apparent distress, Oriented x3 Respiratory: Clear to auscultation bilaterally, Diminished Cardiovascular: Normal S1 S2, Edema Assessment And Plan - Current Problems (Diagnosis) (1) Osteomyelitis Current Visit: Yes Status: Resolved Plan: Antibiotics have been DC'd Qualifiers: Osteomyelitis location: foot (2) Non-STEMI (non-ST elevated myocardial infarction) Current Visit: Yes Status: Acute Plan: Non-STEMI patient is in A-fib oral amiodarone continue with heparin repeat troponins stable for a cardiac cath hemoglobin stable (3) Anemia Current Visit: Yes Status: Acute Plan: Hemoglobin is now 8 stable Qualifiers: Anemia type: due to chronic kidney disease (4) Chronic renal failure Current Visit: Yes Status: Acute Plan: Patient is on dialysis no change (5) Sepsis Current Visit: Yes Status: Acute Plan: Possible Melba bacteremia patient is on micafungin twice the urine cultures have been positive for Melba sepsis seems to be improving Qualifiers: Sepsis type: sepsis due to unspecified organism
[2022-11-10] MEDS: FENTANYL CITR 100 MCG/2 ML IV PRN ×2 (09:56→17:43)
[2022-11-10] MEDS ORDERED: ALBUMIN HUMAN 25% 100 ML IV ONE (10:33)
[2022-11-10] MEDS: EPOETIN ALFA 10,000 UNIT/ML VIAL IV SCH (12:13)
--- NOTE | 2022-11-10 14:39 | PN ---
Date of Progress Note: 11/10/2022 Subjective: Seen by bedside. No chest pain. She is getting dialysis and her requirement of Levophe d is better. Review of Systems: No chest pain, shortness of breath, orthopnea, cough. No nausea, vomiting, diarrhea. All other syst ems reviewed and negative. Physical Examination: Vital Signs: Reviewed. Head and Neck: Pupils are equal, reactive to light. Intact eye movements. Neck: No cervical lymphadenopathy. Supple. Thyroid is not enlarged. Lungs: Decreased breathing sounds bilaterally. No accessory muscle use or muscle retraction. Heart: Regular. No extra sounds. Abdomen: Soft, nontender. Bowel sounds positive. No organomegaly. No masses or hernia. No rigidi ty or rebound. Extremities: No clubbing or cyanosis. Positive edema. Neurologic: Alert, awake, oriented x3. No acute focal deficits appreciated. Investigations: Labs were reviewed. Assessment/recommendation: 1.Non-ST elevation myocardial infarction. She seems to be more hemodynamically stable. She needs c oronary angiogram. We will plan for it early this week. 2.End-stage renal disease, on hemodialysis. 3.Atrial fibrillation, controlled. Continue current therapy. 4.Dyslipidemia. Continue statin. SR/MODL Voice ID: [id number] Report ID: [id number]
[2022-11-10] MEDS: ATORVASTATIN 80 MG TAB PO SCH (20:42)
[2022-11-10] MEDS: GABAPENTIN 100 MG CAP PO SCH (20:42)
--- NOTE | 2022-11-10 22:59 | PN ---
Date of Progress Note: 11/10/2022 Chief Complaint: End-stage renal disease, on hemodialysis. Patient remains in ICU. She has had COV ID pneumonia. She is weaned off Levophed. She denies chest pain, palpitation. Physical Examination: Lungs: Clear to auscultation bilaterally. Heart: S1, S2. Abdomen: Soft, benign. Extremities: Slight edema. Impression: 1.End-stage renal disease. Continue dialysis 3 times per week. Patient received a transfusion yest erday and subsequently Lasix was ordered after transfusion. The patient had a shock likely from seps is, osteomyelitis, and COVID infection candiduria. Patient is on micafungin. 2.Left foot osteomyelitis, antimicrobial per ID. 3.Non-ST elevation myocardial infarction per Cardiology. 4.Chronic anemia of end-stage renal disease. Patient received blood transfusion. 5.Renal osteodystrophy. Monitor calcium and phosphorus level. EB/MODL Voice ID: [id number] Report ID: [id number]
[2022-11-11] MEDS: INSULIN -REGULAR HUMAN 50 UNIT/0.5 ML ML SQ SCH ×4 (01:20→17:34)
[2022-11-11] MEDS ORDERED: HEPARIN/D5W 25,000 UNIT/500 ML BAG IV SCH (02:00)
[2022-11-11] MEDS: LEVOTHYROXINE SOD 0.125 MG TAB PO SCH (05:35)
[2022-11-11] MEDS: NOREPINEPHRINE IV SCH (07:40)
[2022-11-11] MEDS: D5W IV SCH (07:40)
--- NOTE | 2022-11-11 07:53 | P.PN ---
Subjective Date of Service: 11/11/22 Chief Complaint: Non-STEMI possible sepsis Patient is doing well no new complaints alert responsive cooperative unable to wean off low-dose Levophed Review of Systems Unremarkable Physical Examination - Vital Signs Temperature: 97.8 F Blood Pressure: 133/42 Pulse: 56 Respirations: 17 Pulse Ox (%): 100 - Physical Exam General: Alert, In no apparent distress, Oriented x3 Respiratory: Clear to auscultation bilaterally Cardiovascular: Normal pulses, Normal S1 S2, Edema Gastrointestinal: Normal bowel sounds, Soft and benign Assessment And Plan - Current Problems (Diagnosis) (1) Non-STEMI (non-ST elevated myocardial infarction) Current Visit: Yes Status: Acute Plan: Patient has non-STEMI troponins have decreased significantly still requiring low doses of Levophed not a candidate for a cardiac cath stable for transfer to an LTAC patient is on heparin on amiodarone for A-fib (2) Anemia Current Visit: Yes Status: Acute Plan: Hemoglobin is now 8 stable no change stable no evidence of GI bleed Qualifiers: Anemia type: due to chronic kidney disease (3) Chronic renal failure Current Visit: Yes Status: Acute Plan: Patient is on dialysis no change (4) Sepsis Current Visit: Yes Status: Acute Plan: Patient is improving presumed Melba bacteremia count is also declining Qualifiers: Sepsis type: sepsis due to unspecified organism Sepsis acute organ dysfunction status: with acute organ dysfunction
[2022-11-11] MEDS: ASCORBIC ACID 500 MG TABLET PO SCH ×2 (08:30→20:10)
[2022-11-11] MEDS: CLOPIDOGREL 75 MG TABLET PO SCH (08:31)
[2022-11-11] MEDS: ASPIRIN EC 81 MG TAB PO SCH (08:31)
[2022-11-11] MEDS: SODIUM HYPOCHLORITE 0.25% 473 ML TOP SCH (08:31)
[2022-11-11] MEDS: MIDODRINE HCL 5 MG TABLET PO SCH ×2 (08:31→20:10)
[2022-11-11] MEDS: DOCUSATE NA 100 MG CAP PO SCH ×2 (08:31→20:10)
[2022-11-11] MEDS: GUAIFENESIN 600 MG SA TAB PO SCH ×2 (08:31→20:09)
[2022-11-11] MEDS: AMIODARONE HCL 200 MG TAB PO SCH ×2 (08:31→20:10)
[2022-11-11] MEDS: MICAFUNGIN SODIUM 100 MG in NA CHLORIDE 0.9% 100 ML IV SCH (08:31)
[2022-11-11] MEDS: POLYETHYL GLY 3350 17 GM/DOSE PO SCH (08:31)
[2022-11-11] MEDS: FENTANYL CITR 100 MCG/2 ML IV PRN ×3 (09:30→20:10)
--- NOTE | 2022-11-11 09:42 | P.PN ---
Date of Service: 11/11/22 Chief Complaint: Generalized weakness hypertension mixed dialysis, COVID- positive Subjective: Patient remains in ICU, on levophed drip. + sacrum/buttock pain In no apparent distress. Pending transfer to [facility] Physical Examination Temp Pulse Resp BP Pulse Ox 97.3 F 58 11 L 154/37 H 100 11/11/22 08:00 11/11/22 09:15 11/11/22 09:30 11/11/22 09:15 11/11/22 09:30 General: Oriented x1-2. In no apparent distress. Confused, Obese HEENT: Atraumatic. dry mucous membranes. Poor dentition Neck: Supple Respiratory: Normal air movement, Diminished Cardiovascular: Pacemaker left chest. Dialysis catheter right chest. BLE edema 1+. 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 Integumentary: Pressure ulcer sacrum stage IV. Left third toe stage 2 Laboratory data -Reviewed Microbiology data -Reviewed Imagings Data: -Reviewed Medications list: Reviewed Assessment and plan Problem list Sepsis COVID-19 infection Osteomyelitis on IV antibiotics Diabetes mellitus type 2 ESRD on hemodialysis Hypothyroidism Atrial fibrillation Prior CVA with right-sided weakness Hyperlipidemia Sepsis COVID-19 infection Candiduria -Positive COVID PCR on 11/02 - XR Chest 11/02: "Mild pulmonary edema is seen. The heart is moderately enlarged in size. Right venous catheter its tip in the SVC. Multi lead pacer device present. IMPRESSION: Mild CHF. " -Blood cultures 11/02: No growth to date - Urinalysis 11/02: 2+ blood, 1+ urobilinogen, LE 500, RBC 21-50, WBC>50, WBC clumps many, bacteria 20-50, + yeast, protein 3+ -Urine culture 11/02: Presumptive Melba albicans; colony count > 100,000 CFU/mL - On Micafungin IV (started 11/06) Osteomyelitis Left Foot - Left foot wound culture from 09/06 with Klebsiella pneumoniae ESBL and Met hicillin-resistant Staphyloccus aureus (MRSA) - Patient has been on Meropenem and Vancomycin for the treatment of left foot osteomyelitis since 09/26 with plan for 6 weeks of IV antibiotics to end on 11/07 - Completed 6 weeks of IV Meropenem and Vancomycin on 11/07 - Wound care per wound care team Recommendations - Candiduria: on Micafungin IV. continue for 14 days (11/06 to 11/20) - Osteomyelitis: Completed 6 weeks of IV Meropenem and Vancomycin - ESRD: nephrology on case. Renally dose medications. Pharmacy also consulted. - strict blood glucose control - pressure ulcer sacrum: continue wound care per wound care team. Pressure offloading measures. turn patient Q2H, wedge pillow. low air-loss mattress. heel protectors. - apply barrier cream to emaciated area of sacrum/buttocks - continue supportive care and nutritional supplementation as tolerated Case discussed with Boogie Eaton
[2022-11-11] MEDS: HYDROCODONE/APAP 5/325 MG TAB PO PRN ×2 (10:14→21:53)
--- NOTE | 2022-11-11 12:27 | P.DS ---
Admission Date: 11/02/22 Discharge Date: 11/11/22 Disposition: [facility] Discharge Condition: FAIR Reason for Admission: Non-STEMI possible sepsis - Problems (1) Non-STEMI (non-ST elevated myocardial infarction) Current Visit: Yes Status: Acute (2) Anemia Current Visit: Yes Status: Acute Qualifiers: Anemia type: due to chronic kidney disease (3) Chronic renal failure Current Visit: Yes Status: Acute (4) Sepsis Current Visit: Yes Status: Acute Qualifiers: Sepsis type: sepsis due to unspecified organism Sepsis acute organ dysfunction status: with acute organ dysfunction Brief History of Present Illness: Patient is 82 years of age with a history of osteomyelitis of the left foot was on IV antibiotics admitted with septic shock presumed fungal infection she had Melba isolated from the urine blood cultures are still pending any case patient completed the course of treatment for her to myelitis of the left foot was started on micafungin her current clinical condition quickly improved and was still requiring low-dose of Levophed. Unable to wean the patient off In addition she is now tolerating dialysis intermittently. Also she has probably had a non-STEMI troponins are elevated echo is very abnormal patient was not stable to undergo cardiac cath as she has been on Levophed at the time of discharge patient alert oriented responsive cooperative vital signs all stable May be a candidate for a cardiac cath once she is weaned off the vasopressors ID and cardiology was also consulted Echocardiogram report NTS: 1. MILDLY DEPRESSED LEFT VENTRICULAR EJECTION FRACTION 40-45% 2. APICAL SEVERE HYPOKINESIS 3. MILD TRICUSPID REGURGITATION 4. MILD MITRAL REGURGITATION 5. GRADE I DIASTOLIC DYSFUNCTION Vital Signs/Physical Exam: Temp Pulse Resp BP Pulse Ox 97.3 F 55 14 153/42 H 100 11/11/22 08:00 11/11/22 12:00 11/11/22 12:00 11/11/22 12:00 11/11/22 12:00 Laboratory Data at Discharge: WBC 17.20 thou/uL (4.3-10.9) H 11/10/22 05:15 Hgb 8.0 g/dL (12.0-15.0) L D 11/10/22 05:15 Hct 23.0 % (36.0-45.0) L 11/10/22 05:15 Plt Count 212 thou/uL (152-406) 11/10/22 05:15 PT 14.1 SECONDS (9.5-12.5) H 11/04/22 20:37 INR 1.28 11/04/22 20:37 APTT 52.3 SECONDS (24.3-36.9) H 11/11/22 04:25 Sodium 130 mEq/L (136-145) L 11/10/22 05:15 Potassium Cancelled 11/10/22 15:00 BUN 48 mg/dL (7-18) H 11/10/22 05:15 Creatinine 5.11 mg/dL (0.55-1.02) H 11/10/22 05:15 Glucose 285 mg/dL (74-106) H 11/10/22 05:15 Phosphorus 3.7 mg/dL (2.5-4.9) 11/08/22 11:24 Magnesium 2.3 mg/dL (1.6-2.4) 11/07/22 03:15 Total Bilirubin 0.6 mg/dL (0.2-1.0) 11/10/22 05:15 AST 15 U/L (15-37) 11/10/22 05:15 ALT 15 U/L (13-56) 11/10/22 05:15 Alkaline Phosphatase 78 U/L (45-117) 11/10/22 05:15 Home Medications: Atorvastatin Calcium [Lipitor] 1 tab PO BEDTIME 05/08/17 Amiodarone HCl [Pacerone] 100 mg PO Q12HR 06/22/22 Ascorbic Acid 500 mg PO BID 06/22/22 Gabapentin 200 mg PO BEDTIME 06/22/22 Levothyroxine [Synthroid*] 125 mcg PO [id number] 06/22/22 Docusate [Colace Cap*] 100 mg PO BID 07/22/22 Apixaban [Eliquis *] 2.5 mg PO BID 09/06/22 Heparin [Heparin 1,000 units/mL *] 4,000 unit IV EVERY HD PRN vial 10/01/22 Acetaminophen [Acetaminophen ER] 650 mg PO Q4HR PRN 11/03/22 Clonidine HCl [Catapres*] 0.1 mg PO Q4HR PRN 11/03/22 Codeine Sulfate 300 mg PO DIRECTED PRN 11/03/22 Diphenhydramine [Benadryl*] 25 mg PO Q4HR PRN 11/03/22 Epoetin Ankit [Epogen] 2,400 unit IV SEECOM 11/03/22 Flu Vacc [id number](65Yr Up)/Pf [Fluzone High-Dose Quad ] 0.7 mcg dfe IM ONCE 11/03/22 Insulin Lispro [Humalog] 1 unit SQ BID 11/03/22 Loperamide [Imodium*] 2 mg PO Q4HR PRN 11/03/22 Nitroglycerin [Nitrostat] 0.4 mg SL Q5M PRN 11/03/22 Polyethyl Gly 3350 [Glycolax*] 17 gm PO DAILY 11/03/22 Vancomycin HCl 750 mg IV SEECOM 11/03/22 lisinopriL [Prinivil*] 10 mg PO DAILY 11/03/22 Followup: NONE,NONE [Primary Care Provider] -
[2022-11-11 16:27] LABS: Hematocrit 21.9 % (36.0-45.0); Lymphocytes % 6.9 % (15.3-44.8); MCV 95.5 fL (80-100); MPV 8.5 fL (7.6-11.3); Platelets 217 thou/uL (152-406); RBC Red Blood Cell Count 2.29 M/uL (3.86-4.86)
[2022-11-11 16:41] LABS: Magnesium 2.5 mg/dL (1.6-2.4); Phosphorus 3.7 mg/dL (2.5-4.9); Potassium 3.9 mEq/L (3.5-5.1)
--- NOTE | 2022-11-11 19:31 | PN ---
Date of Progress Note: 11/11/2022 Subjective: Seen by bedside. No chest pain. Review of Systems: No chest pain, shortness of breath, orthopnea, cough. No nausea, vomiting, diarrhea. All other syst ems reviewed and they were negative. Objective: Vital Signs: Reviewed. Head and Neck: Pupils are equal, reactive to light. Intact eye movements. No cervical lymphadenopa thy. Neck is supple. Thyroid is not enlarged. Lungs: Decreased breathing sounds bilaterally. No accessory muscle use or muscle retraction. Heart: Regular rate and rhythm. No extra sounds. Abdomen: Soft, nontender. Bowel sounds positive. No organomegaly. No masses or hernia. No rigidi ty or rebound. Extremities: No edema, clubbing, or cyanosis. Intact pulses. Skin: No rash. Neurologic: Alert, awake, oriented x3. No acute focal deficits appreciated. Investigations: Hemoglobin 7.8, and BUN is 41, creatinine 4.59. Assessment And Recommendations: 1.Elevated troponin. The patient needs coronary angiogram, however, she has no chest pain at the pr esent time. I will continue aspirin and Plavix. There is a concern about fungemia and/or bacteremia . I will hold off on doing a coronary angiogram. Likely, she is going to need a PCI. 2.Dyslipidemia. Continue statin. 3.End-stage renal disease, on hemodialysis. 4.Atrial fibrillation. She is in sinus. Continue amiodarone and the patient ideally should get Jackie jasmine; however, she is extremely anemic. 5.Anemia. No active bleeding and status post transfusion. SR/MODL Voice ID: [id number] Report ID: [id number]
[2022-11-11] MEDS: ATORVASTATIN 80 MG TAB PO SCH (20:09)
[2022-11-11] MEDS: GABAPENTIN 100 MG CAP PO SCH (20:10)
--- NOTE | 2022-11-11 22:10 | PN ---
Date of Progress Note: 11/11/2022 Chief Complaint: End-stage renal disease, on hemodialysis. History Of Present Illness: The patient underwent hemodialysis yesterday. The patient is on Levophe d. She has to have a cardiac catheterization, although Cardiology recommended to wean her off Levoph ed. Blood pressure is unstable, but is at stable range when patient is on Levophed. Patient require s Levophed for blood pressure support. Review of Systems: Denies chest pain, palpitation. Physical Examination: Lungs: Clear to auscultation bilaterally. Heart: S1, S2. Abdomen: Soft. Extremities: Slight edema. Impression And Plan: 1.End-stage renal disease. Next dialysis tomorrow. The patient received blood transfusion and subs equently Lasix was ordered after transfusion. Patient has shock likely from sepsis, osteomyelitis ca using infection, and candiduria. The patient is on micafungin per primary team. 2.Left foot osteomyelitis. Antimicrobial per ID. 3.Non-ST elevation myocardial infarction per Cardiology. 4.Chronic anemia of end-stage renal disease. Patient received transfusion with packed red blood alexus ls. Monitor hemoglobin level. 5.Renal osteodystrophy. Monitor calcium and phosphorus level. EB/MODL Voice ID: [id number] Report ID: [id number]
[2022-11-12 05:07] LABS: Absolute Lymphocytes (CBC) 1.3 K/uL (0.7-4.9); Hematocrit 21.2 % (36.0-45.0); MCV 96.1 fL (80-100); MPV 8.2 fL (7.6-11.3); Platelets 216 thou/uL (152-406); RBC Red Blood Cell Count 2.21 M/uL (3.86-4.86)
[2022-11-12 05:24] LABS: Albumin 2.1 g/dL (3.4-5.0); Bilirubin Total 0.7 mg/dL (0.2-1.0); Ferritin 1098.5 ng/mL (8-388); Magnesium 2.4 mg/dL (1.6-2.4); Phosphorus 4.3 mg/dL (2.5-4.9); Potassium 3.9 mEq/L (3.5-5.1); Protein, Total 5.5 g/dL (6.4-8.2)
[2022-11-12] MEDS: ASPIRIN EC 81 MG TAB PO SCH (05:34)
[2022-11-12] MEDS: HYDROCODONE/APAP 5/325 MG TAB PO PRN ×2 (05:34→17:08)
[2022-11-12] MEDS: LEVOTHYROXINE SOD 0.125 MG TAB PO SCH (05:35)
[2022-11-12] MEDS: CLOPIDOGREL 75 MG TABLET PO SCH (05:35)
[2022-11-12] MEDS: INSULIN -REGULAR HUMAN 50 UNIT/0.5 ML ML SQ SCH ×4 (05:38→17:09)
[2022-11-12 06:14] VITALS: BMI 41.0
[2022-11-12] MEDS ORDERED: NA CHLORIDE 0.9% 1,000 ML IV SCH (07:00)
--- NOTE | 2022-11-12 08:21 | P.PN ---
Date of Service: 11/12/22 Chief Complaint: Generalized weakness hypertension mixed dialysis, COVID- positive Subjective: Patient seen and examined in ICU. Reports feeling a bit better today. + sacrum/buttock pain No acute events reported overnight. at bedside. Pending transfer to [facility] Physical Examination Temp Pulse Resp BP Pulse Ox 96.8 F 54 12 122/54 L 100 11/12/22 04:00 11/12/22 06:15 11/12/22 06:15 11/12/22 06:15 11/12/22 06:15 General: Oriented x3. In no apparent distress. HEENT: Atraumatic. dry mucous membranes. Poor dentition Neck: Supple Respiratory: Normal air movement, Diminished Cardiovascular: Pacemaker left chest. Dialysis catheter right chest. BLE edema 1+. 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 Integumentary: Pressure ulcer sacrum stage IV. Left third toe stage 2 Laboratory data -Reviewed Microbiology data -Reviewed Imagings Data: -Reviewed Medications list: Reviewed Assessment and plan Problem list Sepsis COVID-19 infection Osteomyelitis on IV antibiotics Diabetes mellitus type 2 ESRD on hemodialysis Hypothyroidism Atrial fibrillation Prior CVA with right-sided weakness Hyperlipidemia Sepsis COVID-19 infection Candiduria -Positive COVID PCR on 11/02 - XR Chest 11/02: "Mild pulmonary edema is seen. The heart is moderately enlarged in size. Right venous catheter its tip in the SVC. Multi lead pacer device present. IMPRESSION: Mild CHF. " -Blood cultures 11/02: No growth to date - Urinalysis 11/02: 2+ blood, 1+ urobilinogen, LE 500, RBC 21-50, WBC>50, WBC clumps many, bacteria 20-50, + yeast, protein 3+ -Urine culture 11/02: Presumptive Melba albicans; colony count > 100,000 CFU/mL - On Micafungin IV (started 11/06) Osteomyelitis Left Foot - Left foot wound culture from 09/06 with Klebsiella pneumoniae ESBL and Methicillin-resistant Staphyloccus aureus (MRSA) - Patient has been on Meropenem and Vancomycin for the treatment of left foot osteomyelitis since 09/26 with plan for 6 weeks of IV antibiotics to end on 11/07 - Completed 6 weeks of IV Meropenem and Vancomycin on 11/07 - Wound care per wound care team Recommendations - Candiduria: on Micafungin IV. continue for 14 days (11/06 to 11/20) - Osteomyelitis: Completed 6 weeks of IV Meropenem and Vancomycin - ESRD: nephrology on case. Renally dose medications. Pharmacy also consulted. - strict blood glucose control - pressure ulcer sacrum: continue wound care per wound care team. Pressure offloading measures. turn patient Q2H, wedge pillow. low air-loss mattress. heel protectors. - apply barrier cream to emaciated area of sacrum/buttocks - continue supportive care and nutritional supplementation as tolerated Pending discharge to LTAC Case discussed with Boogie Eaton
[2022-11-12] MEDS: POLYETHYL GLY 3350 17 GM/DOSE PO SCH (09:00)
[2022-11-12] MEDS: GUAIFENESIN 600 MG SA TAB PO SCH ×2 (09:00→20:52)
[2022-11-12] MEDS ORDERED: THIAMINE HCL 100 MG TABLET PO SCH (09:00)
[2022-11-12] MEDS: MIDODRINE HCL 5 MG TABLET PO SCH ×2 (09:00→20:53)
[2022-11-12] MEDS: AMIODARONE HCL 200 MG TAB PO SCH ×2 (09:00→20:53)
[2022-11-12] MEDS ORDERED: FOLIC ACID 1 MG TABLET PO SCH (09:00)
[2022-11-12] MEDS: ASCORBIC ACID 500 MG TABLET PO SCH ×2 (09:00→20:53)
[2022-11-12] MEDS: DOCUSATE NA 100 MG CAP PO SCH ×2 (09:00→20:52)
[2022-11-12] MEDS: MICAFUNGIN SODIUM 100 MG in NA CHLORIDE 0.9% 100 ML IV SCH (09:35)
[2022-11-12] MEDS ORDERED: LIDOCAINE 1% 20 ML MDV ONE (09:47)
[2022-11-12] MEDS ORDERED: HEPA 1000U/500MLS 2,000 UNIT/1,000 ML BAG IV ONE (09:47)
--- NOTE | 2022-11-12 10:05 | PN ---
Date of Progress Note: 11/12/2022 Subjective: Seen by bedside. Doing well. No symptoms. Review of Systems: No chest pain, shortness of breath, orthopnea, cough. No fever. No nausea, vomiting, diarrhea. All other systems reviewed and they were negative. Physical Examination: Vital Signs: Reviewed. Head and Neck: Pupils are equal, reactive to light. Intact eye movements. No JVD. No cervical lym phadenopathy. Neck is supple. Thyroid is not enlarged. Lungs: Clear to auscultation bilaterally. No rhonchi, wheezing, or crackles. No accessory muscle u se. Heart: Regular rate and rhythm. No extra sounds. Abdomen: Soft, nontender. Bowel sounds positive. No organomegaly. No masses or hernia. No rigidi ty or rebound. Extremities: Mild edema. No clubbing, cyanosis. Intact pulses. Skin: No rash. Neurologic: Alert, awake, oriented x3. No acute focal deficits appreciated. Investigations: Labs were reviewed. Assessment And Recommendations: 1.Non-ST elevation myocardial infarction. She appears to be stable. No fever. Hemoglobin has been stable while on Plavix and aspirin. Plan for coronary angiogram today and PCI as needed. 2.Atrial fibrillation. She is in sinus. Continue current management. 3.End-stage renal disease, on hemodialysis. SR/MODL Voice ID: [id number] Report ID: [id number]
[2022-11-12] MEDS ORDERED: VERAPAMIL HCL 10 MG/4 ML VIAL IV ONE (11:34)
[2022-11-12] MEDS ORDERED: HEPARIN 5000 UNIT/ML 1 ML VIAL ONE (11:34)
[2022-11-12] MEDS ORDERED: ASPIRIN 325 MG TAB ONE (11:34)
[2022-11-12] MEDS ORDERED: MIDAZOLAM HCL 2 MG/2 ML INJ ONE (11:34)
[2022-11-12] MEDS ORDERED: CLOPIDOGREL 75 MG TABLET ONE (11:34)
[2022-11-12] MEDS ORDERED: FENTANYL CITR 100 MCG/2 ML ONE (11:34)
[2022-11-12] MEDS ORDERED: HEPARIN 10,000 UNIT/10 ML VIAL IV ONE (11:35)
[2022-11-12] MEDS ORDERED: ATROPINE SULF 1 MG/10 ML SYR IV ONE (11:35)
[2022-11-12] MEDS ORDERED: TICAGRELOR 90 MG TABLET PO ONE (11:35)
[2022-11-12] MEDS ORDERED: NALOXONE 0.4 MG/ML VIAL ONE (12:25)
--- NOTE | 2022-11-12 12:40 | P.PN ---
Date of Service: 11/12/22 Please see progress note from yesterday and the discharge summary was taken to the cardiac Filter Press Supervisor and as per Dr. Azul she has some coronary artery disease nothing critical was unable to do any procedures or put stents in his and in her artery started screaming of back pain and chest pain and would not allow him to do anything any case she is stable for transfer to an LTAC unit continue with micafungin troponins are declining probably can be weaned off the of the heparin started on subcu Lovenox for now
[2022-11-12] MEDS ORDERED: ALBUMIN HUMAN 25% 100 ML IV ONE (15:04)
--- NOTE | 2022-11-12 17:52 | PN ---
Date of Progress Note: 11/12/2022 Subjective: The patient was admitted with shock, cardiogenic. The patient had cardiac cath, found m ultiple vessels disease, could not do any intervention because the patient was agitated and hypoxemic . The patient has been on pressor. The patient waiting transfer to [place]. The patient required B iPAP. Physical Examination: Vital Signs: When I saw the patient; blood pressure 93/50, pulse of 88. Chest: Crackles bilateral. Heart: S1, S2. Systolic murmur. Abdomen: Soft, nontender. Extremities: +3 edema. Neurologic: Alert. No focality. Laboratory Data: Hemoglobin 7.2. Sodium 130, potassium 3.9, bicarb 28, BUN 46, creatinine 4.8, calc ium 8.2, phosphorus 4.3. Current Medications: The patient on include; 1.Levophed. 2.Micafungin. 3.Aspirin. 4.Diphenhydramine. 5.Midodrine. 6.Epogen. 7.Plavix. 8.Gabapentin. 9.Folic acid. 10.Fentanyl. Assessment And Plan: 1.End-stage renal disease, over volume with anemia with cardiogenic shock. I am going to continue L evophed. We will dialyze the patient today. We will try to challenge the patient. We will arrange for blood transfusion with dialysis today. Then after that, the patient can be transferred. 2.Hypertension, currently the patient has hypotension. Continue Levophed. We will follow up. 3.Anemia of chronic kidney disease. Transfusion today. 4.Cardiogenic shock as above. Continue Levophed. We will transfuse. Time spent examining the patient [id number], reviewing data, lab and radiology, placing order, disc ussing the case with the patient and family by bedside, reviewing data, discussing the case with the ICU, nursing and Critical Care more than 35 minutes. YUDITH Voice ID: [id number] Report ID: [id number]
[2022-11-12] MEDS: SODIUM HYPOCHLORITE 0.25% 473 ML TOP SCH (18:26)
--- NOTE | 2022-11-12 19:01 | OP ---
Date of Procedure: 11/12/2022 Surgeon: TARA SMYTH Procedures Performed: 1.Selective coronary angiogram. 2.Left heart catheterization. Indication: Non-ST elevation myocardial infarction. Access: Left femoral artery 6-Malian closed with 6-Malian Angio-Seal. Complications: None. Bleeding: Less than 20 mL. Description Of Procedure: After risks, benefits and alternatives were explained, the patient agreed to procedure and signed informed consent. The patient was brought into the cardiac catheterization l aboratory, prepped and draped in the usual sterile fashion. Then, I accessed the left femoral artery using micropuncture kit, ultrasound guidance and fluoroscopy, placed a 6-Malian [place] sheath and then I took a 6-Malian JL4 catheter into the aortic root, engaged the left main and took standard vie ws and then exchanged for a 6-Malian JR4 catheter, engaged the RCA, took standard views, and the cath eter was pushed over the wire into the LV, measured the LVEDP, pullback did not record any gradient. We gave systemic heparin and tried to do a PCI of the mid LAD and IVUS of the left main; however, sh e became severely hypoxic and started screaming. She could not breathe and had to cancel the procedu re. No intervention was done. Then, I took all the catheters out and sheath was removed and a 6-Ralph nch Angio-Seal was used for closure. Findings: 1.Distal left main; 50% to 60% stenosis, severity to be determined with IVUS. 2.Mid LAD, proximal appears to be normal, mid 80% stenosis. Rest of the LAD is normal. 3.Left circumflex is normal. 4.RCA; large, dominant, normal. 5.LVEDP elevated at 24 mmHg. Conclusion: 1.Severe mid LAD stenosis, needs PCI. 2.Ojwxqlwb-ui-qomjhy left main, needs further evaluation by IVUS. 3.Elevated LVEDP. Plan: Staged PCI of the LAD and the evaluation of left main once she is more stable from Respiratory status. The patient could not lie flat for the procedure and we had to cancel it. SR/MODL Voice ID: [id number] Report ID: [id number]
--- NOTE | 2022-11-12 19:06 | OP ---
Date of Procedure: 11/12/2022 Surgeon: TARA SMYTH Procedures Performed: 1.Selective coronary angiogram. 2.Left heart catheterization. 3.Failed attempt PCI of the mid LAD due to the patient being extremely anxious and screaming, did no t allow us to proceed. Indication: Non-ST elevation myocardial infarction. Access: Left femoral artery 6-Turkish closed with 6-Turkish Angio-Seal. Complications: None. Bleeding: Less than 20 mL. Description Of Procedure: After risks, benefits, alternatives were explained, the patient agreed to procedure and signed informed consent. The patient was brought into cardiac catheterization laborato , prepped and draped in the usual sterile fashion. Then, I accessed left femoral artery using micr opuncture kit, ultrasound guidance and fluoroscopy, placed a 6-Turkish [place] sheath and then I took a 6-Turkish JL4 catheter into the aortic root over J-wire, engaged left main, took standard views and exchanged for 6-Turkish JR4 catheter, engaged the RCA, took standard views and the catheter was pushe d over the wire into the LV, measured the LVEDP, pullback not record any gradient. Then, I removed t he catheter and then gave systemic heparin to assure ACT level above 250 throughout the procedure and took 6-Turkish EBU3.5 guide into the aortic root, engaged left main, took short Run-Through wire into the left main. At that time, the patient started screaming and wanted to come off the table. I exp lained to her that there is a stenosis that needs to be fixed; however, she would not stay still and was very agitated and not sitting still, I had to abort the procedure. Final angiogram showed no com plication. Then, I removed the guide, removed the sheath and placed a 6-Turkish Angio-Seal for closur e with good hemostasis. Findings: 1.Left main; distal 50% to 60%. 2.LAD; proximal segment is normal. Mid segment 80%. Distal LAD is normal. 3.Left circumflex normal. 4.RCA; large, dominant, normal. 5.Elevated LVEDP at 24 mmHg. Conclusion: 1.Severe mid LAD stenosis. 2.Hsaykcuq-ru-sjyovh left main stenosis, etiology to be determined. Recommendations: Optimize respiratory status and plan for staged evaluation of left main and mid LAD PCI in the next 1-2 months when she is more optimized from respiratory condition. SR/MODL Voice ID: [id number] Report ID: [id number]
[2022-11-12] MEDS: GABAPENTIN 100 MG CAP PO SCH (20:52)
[2022-11-12] MEDS: ATORVASTATIN 80 MG TAB PO SCH (20:53)
[2022-11-12] MEDS: D5W IV SCH (21:01)
[2022-11-12] MEDS: NOREPINEPHRINE IV SCH (21:01)
[2022-11-12 21:33] VITALS: BP 113/50; TEMP 97.2
[2022-11-12 21:39] VITALS: O2SAT 99
== END 2022-11-12 21:30 | DRG 871 ==
LOC: ER 12:39 → ERHOLD 15:59 → 2ND 20:45 → 3RD-ICU 11-03 17:04
PROVIDERS: ADMIT Internal Medicine; ATTEND Internal Medicine Sleep Medicine
PROC: 02HV33Z Insertion of Infusion Device into Superior Vena Cava, Percutaneous Approach (ICD-10-PCS; 2022-11-02)
PROC: 5A1D70Z Performance of Urinary Filtration, Intermittent, Less than 6 Hours Per Day (ICD-10-PCS; 2022-11-03)
PROC: 30233N1 Transfusion of Nonautologous Red Blood Cells into Peripheral Vein, Percutaneous Approach (ICD-10-PCS; 2022-11-03)
PROC: 06HY33Z Insertion of Infusion Device into Lower Vein, Percutaneous Approach (ICD-10-PCS; 2022-11-05)
PROC: 5A09357 Assistance with Respiratory Ventilation, Less than 24 Consecutive Hours, Continuous Positive Airway Pressure (ICD-10-PCS; principal; 2022-11-12)
PROC: 4A023N7 Measurement of Cardiac Sampling and Pressure, Left Heart, Percutaneous Approach (ICD-10-PCS; 2022-11-12)
PROC: B2111ZZ Fluoroscopy of Multiple Coronary Arteries using Low Osmolar Contrast (ICD-10-PCS; 2022-11-12)
PROC: B31N1ZZ Fluoroscopy of Other Upper Arteries using Low Osmolar Contrast (ICD-10-PCS; 2022-11-12)
DX: A41.89 Other specified sepsis (principal); G93.41 Metabolic encephalopathy; U07.1 COVID-19; N18.6 End stage renal disease; R65.21 Severe sepsis with septic shock; J12.82 Pneumonia due to coronavirus disease 2019; I21.4 Non-ST elevation (NSTEMI) myocardial infarction; R57.0 Cardiogenic shock; I69.351 Hemiplegia and hemiparesis following cerebral infarction affecting right dominant side; I50.32 Chronic diastolic (congestive) heart failure; I13.2 Hypertensive heart and chronic kidney disease with heart failure and with stage 5 chronic kidney disease, or end stage renal disease; E87.1 Hypo-osmolality and hyponatremia; I48.20 Chronic atrial fibrillation, unspecified; Z68.41 Body mass index [BMI] 40.0-44.9, adult; M86.172 Other acute osteomyelitis, left ankle and foot; N25.81 Secondary hyperparathyroidism of renal origin; E11.22 Type 2 diabetes mellitus with diabetic chronic kidney disease; E11.69 Type 2 diabetes mellitus with other specified complication; E11.40 Type 2 diabetes mellitus with diabetic neuropathy, unspecified; E11.319 Type 2 diabetes mellitus with unspecified diabetic retinopathy without macular edema; E11.649 Type 2 diabetes mellitus with hypoglycemia without coma; E11.621 Type 2 diabetes mellitus with foot ulcer; L97.529 Non-pressure chronic ulcer of other part of left foot with unspecified severity; D63.1 Anemia in chronic kidney disease; I95.3 Hypotension of hemodialysis; E78.5 Hyperlipidemia, unspecified; E87.70 Fluid overload, unspecified; I08.1 Rheumatic disorders of both mitral and tricuspid valves; E66.9 Obesity, unspecified; N25.0 Renal osteodystrophy; E87.5 Hyperkalemia; E03.9 Hypothyroidism, unspecified; I25.10 Atherosclerotic heart disease of native coronary artery without angina pectoris; B37.9 Candidiasis, unspecified; Z79.4 Long term (current) use of insulin; Z99.2 Dependence on renal dialysis; Z95.0 Presence of cardiac pacemaker; Z79.02 Long term (current) use of antithrombotics/antiplatelets; Z79.01 Long term (current) use of anticoagulants; Z89.412 Acquired absence of left great toe; Z79.890 Hormone replacement therapy; Z79.899 Other long term (current) drug therapy; Z90.710 Acquired absence of both cervix and uterus; Z91.158 Patient's noncompliance with renal dialysis for other reason
CPT/HCPCS: 36415; 36430; 36600; 51702; 71045; 74018; 76937; 80048; 80053; 80202; 81001; 82533; 82728; 82805; 82947; 83540; 83605; 83735; 84100; 84466; 84484; 85014; 85018; 85025; 85027; 85347; 85610; 85730; 86706; 86850; 86900; 86901; 86920; 87040; 87086; 87088; 87340; 87635; 87804; 90935; 93005; 93306; 93458; 94660; 99285; C1760; C1893; G0257; G0269; J0461; J1610; J1644; J1815; J1940; J2001; J2185; J2248; J2250; J2310; J3010; J7030; J7050; J7060; P9016; P9047; Q5106; Q9967

== ENCOUNTER 2023-01-17 12:24 | Inpatient (IN) | payer OTHER ==
[2023-01-17 13:01] LABS: Absolute Lymphocytes (CBC) 0.8 K/uL (0.7-4.9); Hematocrit 31.3 % (36.0-45.0); Lymphocytes % 5.6 % (15.3-44.8); MCV 102.8 fL (80-100); MPV 8.8 fL (7.6-11.3); Platelets 178 thou/uL (152-406); RBC Red Blood Cell Count 3.04 M/uL (3.86-4.86)
[2023-01-17 13:12] LABS: SARS-CoV-2 Antigen Rapid Res Negative (Negative)
[2023-01-17 13:18] LABS: Albumin 1.6 g/dL (3.4-5.0); Bilirubin Total 0.3 mg/dL (0.2-1.0); Potassium 4.1 mEq/L (3.5-5.1); Protein, Total 6.1 g/dL (6.4-8.2)
[2023-01-17 13:25] LABS: Blood Morphology Comment NOT SEEN (NOT SEEN); Platelet Estimate ADEQ; White Blood Cell Scan OK (OK)
--- NOTE | 2023-01-17 13:27 | RAD REPORT ---
EXAM DESCRIPTION: RAD - Chest Single View - 01/17/2023 1:10 pm CLINICAL HISTORY: MALAISE Chest pain. COMPARISON: Abdomen 1 View (KUB) dated 11/06/2022; Chest Single View dated 11/02/2022; Chest Single Vi ew dated 09/24/2022; Chest Single View dated 09/05/2022 FINDINGS: Portable technique limits examination quality. Mild pulmonary edema. The heart is moderately enlarged. Multi lead pacer device present. Right-sided venous catheter tip in the SVC. IMPRESSION: Mild CHF.
[2023-01-17] MEDS ORDERED: HYDROCODONE/APAP 5/325 MG TAB ONE (14:02)
[2023-01-17] MEDS ORDERED: NA CHLORIDE 0.9% 100 ML ONE (14:03)
[2023-01-17] MEDS ORDERED: Meropenem 500 MG VIAL IV ONE (14:03)
--- NOTE | 2023-01-17 14:09 | ER ---
Nurse's Notes [facility] Name: Rebecca Hazel Age: 82 yrs Sex: Female : 1940 Arrival Date: 01/17/2023 Time: 12:24 Bed 8 Private MD: Diagnosis: Wound infection, sepsis Presentation: 01/17 12:27 Chief complaint: EMS states: pt has worsening sacral wound , has been on IV iw antibiotics. Coronavirus screen: At this time, the client does not indicate any symptoms associated with coronavirus-19. Ebola Screen: Patient negative for fever greater than or equal to 101.5 degrees Fahrenheit, and additional compatible Ebola Virus Disease symptoms Patient denies exposure to infectious person. Patient denies travel to an Ebola-affected area in the 21 days before illness onset. No symptoms or risks identified at this time. Initial Sepsis Screen: Does the patient meet any 2 criteria? No. Patient's initial sepsis screen is negative. Does the patient have a suspected source of infection? Yes:. Risk Assessment: Do you want to hurt yourself or someone else? Patient reports no desire to harm self or others. Onset of symptoms was January 17, 2023. 12:27 Method Of Arrival: EMS: [facility] iw 12:27 Acuity: DENNIS 3 iw Triage Assessment: 12:30 General: Appears in no apparent distress. Behavior is calm, cooperative. iw Historical: - Allergies: 12:31 No Known Allergies; iw - PMHx: 12:31 Diabetes - IDDM; Dialysis M-W-F; End stage renal disease; End stage renal disease; iw Hypertension; Hypothyroidism; stroke with right sided weakness; TIA; - PSHx: 12:31 pacemaker; iw - Immunization history:: Adult Immunizations unknown. - Social history:: Smoking status: Patient/guardian denies using tobacco. Screenin:00 [facility] ED Fall Risk Assessment (Adult) History of falling in the last 3 months, iw including since admission Confusion or Disorientation No (0 pts) Intoxicated or Sedated No (0 pts) Impaired Gait Yes (1 pt) Mobility Assist Device Used No (0 pt) Altered Elimination No (0 pt) Score/Fall Risk Level 0 - 2 = Low Risk. Abuse screen: Denies threats or abuse. Denies injuries from another. Nutritional screening: No deficits noted. Tuberculosis screening: No symptoms or risk factors identified. Assessment: 12:30 General: Appears uncomfortable, Behavior is calm, cooperative. Pain: Complains of pain iw in lumbar area, sacrum, left low back and right low back. Neuro: Level of Consciousness is awake, alert, obeys commands, Oriented to person, place, time, situation, Paralysis in right arm(s). Cardiovascular: Patient's skin is warm and dry. Respiratory: Respiratory effort is even, unlabored, Respiratory pattern is regular. Derm: Wound noted gluteal cleft Decubitus located on sacrum approximately 2.6 cm to 7.5 cm is unstageable. Musculoskeletal: Range of motion: limited in right elbow, right wrist and right hip. 13:55 Reassessment: meropenem was given at 0930 this morning, is ordered BID, will hold. iw Vancomycin is ordered every MWF to be given during dialysis. 17:08 Reassessment: bedside report was given to Heather. iw Vital Signs: 12:30 BP 133 / 82; Pulse 56; Resp 19; Temp 98.1(O); Pulse Ox 100% on 2 lpm NC; iw 13:42 Weight 108.86 kg; iw ED Course: 12:26 Patient arrived in ED. iw 12:27 Arlene Powell MD is Attending Physician. sp3 12:30 Triage completed. iw 12:30 Arm band placed on. iw 12:30 Patient has correct armband on for positive identification. Provided Education on: . iw Client placed on continuous cardiac and pulse oximetry monitoring. NIBP monitoring applied. 12:56 Missed attempt(s): 22 gauge in right hand. Bleeding controlled, band aid applied, iw catheter tip intact. 13:02 Rissa Garg, RN is Primary Nurse. kd3 13:02 Inserted saline lock: 20 gauge in left forearm, using aseptic technique. Blood kd3 collected. 13:11 Chest Single View XRAY In Process Unspecified. EDMS 14:08 Kem Mack MD is Hospitalizing Provider. sp3 17:07 No provider procedures requiring assistance completed. Patient admitted, IV remains in iw place. Administered Medications: 13:55 Drug: HYDROcodone-acetaminophen PO 5 mg-325 mg 2 tabs PO once Route: PO; iw 14:50 Follow up: Response: No adverse reaction; Pain is decreased iw 15:00 Drug: vancoMYCIN IVPB 500 mg IVPB once over 1 hrs Route: IVPB; Infused Over: 1 hrs; iw Site: left forearm; 16:10 Follow up: IV Status: Completed infusion iw 15:48 Not Given (was given at 0930 at Nursing Facility l): [id number] mg IV at calculated iw rate once; (mix in NS 100 mL) Medication: 17:30 VIS not applicable for this client. iw Outcome: 14:09 Decision to Hospitalize by Provider. sp3 17:08 Admitted to Med/surg accompanied by nurse, via stretcher, room 225, with oxygen, with iw chart, 17:08 Condition: good 17:08 Instructed on the need for admit, 17:09 Patient left the ED. iw Signatures: Dispatcher [employer] EDVero Hayes, RN RN iw Arlene Powell MD MD sp3 Rissa Garg RN RN kd3 Corrections: (The following items were deleted from the chart) 13:41 12:30 BP 133 / 82; Pulse 56bpm; Resp 19bpm; Pulse Ox 100% 2 lpm Nasal Cannula; iw iw
--- NOTE | 2023-01-17 14:09 | EDPHYS ---
Physician Documentation [facility] Name: Rebecca Hazel Age: 82 yrs Sex: Female : 1940 Arrival Date: 01/17/2023 Time: 12:24 Bed 8 Private MD: ED Physician Arlene Powell HPI: 01/17 13:24 This 82 yrs old Female presents to ER via EMS with complaints of Wound Infection. sp3 13:24 82-year-old female with history of diabetes, Friday dialysis, sp3 hypertension now presents via EMS from [facility] for worsening infection of sacral wound ulcer currently being treated with vancomycin and meropenem due to resistant strains of bacteria. Per EMS, patient has been generally weak and decreased attentiveness and activity. No fever reported or hypotension. Patient has dementia at baseline and ROS, history and physical are severely limited.. Historical: - Allergies: 12:31 No Known Allergies; iw - PMHx: 12:31 Diabetes - IDDM; Dialysis M-W-F; End stage renal disease; End stage renal disease; iw Hypertension; Hypothyroidism; stroke with right sided weakness; TIA; - PSHx: 12:31 pacemaker; iw - Immunization history:: Adult Immunizations unknown. - Social history:: Smoking status: Patient/guardian denies using tobacco. ROS: 13:25 Unable to obtain ROS due to baseline dementia, sp3 Exam: 13:25 Chest/axilla: Normal chest wall appearance and motion. Nontender with no deformity. sp3 No lesions are appreciated. Cardiovascular: Regular rate and rhythm with a normal S1 and S2. No gallops, murmurs, or rubs. Normal PMI, no JVD. No pulse deficits. Respiratory: Lungs have equal breath sounds bilaterally, clear to auscultation and percussion. No rales, rhonchi or wheezes noted. No increased work of breathing, no retractions or nasal flaring. 13:25 Skin: Large sacral ulcer currently dressed.. 13:27 ECG was reviewed by the Attending Physician. EKG demonstrate sinus bradycardia 52 bpm sp3 with right bundle branch block and associated axis deviation and nonspecific ST's ST changes without evidence of acute ischemia. Vital Signs: 12:30 BP 133 / 82; Pulse 56; Resp 19; Temp 98.1(O); Pulse Ox 100% on 2 lpm NC; iw 13:42 Weight 108.86 kg; iw MDM: 12:29 Patient medically screened. sp3 13:25 Data reviewed: vital signs, nurses notes, lab test result(s), EKG, radiologic studies. sp3 ED course: 82-year-old female with worsening sacral ulcer wound. Will admit patient and continue antibiotics and consult surgery. Sepsis workup is pending. Patient is not in shock does not appear to have necrotizing fasciitis or other concerning skin pathology.. 01/17 12:28 Order name: Blood Culture Adult (2) sp3 01/17 12:28 Order name: CBC with Diff; Complete Time: 13:28 sp3 01/17 12:28 Order name: CMP; Complete Time: 13:28 sp3 01/17 12:28 Order name: Lactate w/ 2H reflex if indic.; Complete Time: 13:28 sp3 01/17 12:28 Order name: Protime (+inr) sp3 01/17 12:28 Order name: Ptt, Activated sp3 01/17 12:28 Order name: Urinalysis w/ reflexes sp3 01/17 12:28 Order name: Flu; Complete Time: 13:28 sp3 01/17 12:28 Order name: SARS RAPID; Complete Time: 13:28 sp3 01/17 13:05 Order name: CBC Smear Scan; Complete Time: 13:28 EDMS 01/17 12:28 Order name: Chest Single View XRAY; Complete Time: 13:28 sp3 01/17 12:28 Order name: EKG; Complete Time: 12:29 sp3 01/17 12:28 Order name: Cardiac monitoring; Complete Time: 14:41 sp3 01/17 12:28 Order name: EKG - Nurse/Tech; Complete Time: 14:41 sp3 01/17 12:28 Order name: IV Saline Lock - Large Bore; Complete Time: 14:41 sp3 01/17 12:28 Order name: Labs collected and sent; Complete Time: 12:56 sp3 01/17 12:28 Order name: O2 Per Protocol; Complete Time: 14:41 sp3 01/17 12:28 Order name: O2 Sat Monitoring; Complete Time: 14:41 sp3 01/17 12:28 Order name: Vital Signs; Complete Time: 14:41 sp3 Administered Medications: 13:55 Drug: HYDROcodone-acetaminophen PO 5 mg-325 mg 2 tabs PO once Route: PO; iw 14:50 Follow up: Response: No adverse reaction; Pain is decreased iw 15:00 Drug: vancoMYCIN IVPB 500 mg IVPB once over 1 hrs Route: IVPB; Infused Over: 1 hrs; iw Site: left forearm; 16:10 Follow up: IV Status: Completed infusion iw 15:48 Not Given (was given at 0930 at Nursing Facility l): [id number] mg IV at calculated iw rate once; (mix in NS 100 mL) Disposition Summary: 01/17/23 14:09 Hospitalization Ordered Notes: Hospitalization Status: Inpatient Admission sp3 Provider: Kem Mack sp3 Location: Telemetry/MedSurg (Inpatient) sp3 Condition: Stable sp3 Problem: an acute exacerbation sp3 Symptoms: have worsened sp3 Bed/Room Type: Standard sp3 Room Assignment: 225(01/17/23 14:32) eb Diagnosis - Wound infection, sepsis sp3 Forms: - Medication Reconciliation Form sp3 - SBAR form sp3 - Leadership Thank You Letter sp3 Signatures: Dispatcher [employer] Vero Pierre, THAIS RN iw Susie Esteban Setul, MD MD sp3 Corrections: (The following items were deleted from the chart) 14:32 14:09 sp3 eb 14:41 12:28 Rectal Temp ordered. sp3 iw
--- NOTE | 2023-01-17 14:49 | P.HP ---
Certification for Inpatient Patient admitted to: Inpatient With expected LOS: >2 Midnights Patient will require the following post-hospital care: None Practitioner: I am a practitioner with admitting privileges, knowledge of patient current condition, hospital course, and medical plan of care. Services: Services provided to patient in accordance with Admission requirements found in Title 42 Section 412.3 of the Code of Federal Regulations Patient History Date of Service: 01/17/23 Reason for admission: Infected sacral decubitus ulceration History of Present Illness: 82-year-old female with history of diabetes mellitus type 2, ESRD on HD MWF, hypertension, hypothyroidism, atrial fibrillation on chronic anticoagulation, history of right-sided hemiplegia after CVA presents to the emergency department from [facility] for confusion, sacral decubitus ulceration is worsening. They have been treating her sacral decubitus ulceration at the longterm, she was started on meropenem last week and vancomycin earlier this week but she has been having intermittent confusion/altered mental status and her wound is looking worse. She was evaluated in the emergency department her labs are significant for white blood cell count of 14.4 hemoglobin 10.1 hematocrit 31.3 creatinine 3.37 GFR 13 BUN 42 lactic acid 1.4 blood cultures were obtained in the ED, urinalysis is pending chest x-ray showed mild CHF pattern. Last dialysis was Friday. Will need to be admitted for infected unstageable sacral decubitus ulceration, encephalopathy Allergies No Known Allergies Allergy (Verified 09/25/22 01:17) Home Medications: Atorvastatin Calcium [Lipitor] 1 tab PO BEDTIME 05/08/17 Amiodarone HCl [Pacerone] 100 mg PO Q12HR 06/22/22 Ascorbic Acid 500 mg PO BID 06/22/22 Gabapentin 200 mg PO BEDTIME 06/22/22 Levothyroxine [Synthroid*] 125 mcg PO [id number] 06/22/22 Docusate [Colace Cap*] 100 mg PO BID 07/22/22 Apixaban [Eliquis *] 2.5 mg PO BID 09/06/22 Heparin [Heparin 1,000 units/mL *] 4,000 unit IV EVERY HD PRN vial 10/01/22 Acetaminophen [Acetaminophen ER] 650 mg PO Q4HR PRN 11/03/22 Clonidine HCl [Catapres*] 0.1 mg PO Q4HR PRN 11/03/22 Codeine Sulfate 300 mg PO DIRECTED PRN 11/03/22 Diphenhydramine [Benadryl*] 25 mg PO Q4HR PRN 11/03/22 Epoetin Ankit [Epogen] 2,400 unit IV SEECOM 11/03/22 Flu Vacc [id number](65Yr Up)/Pf [Fluzone High-Dose Quad ] 0.7 mcg dfe IM ONCE 11/03/22 Insulin Lispro [Humalog] 1 unit SQ BID 11/03/22 Loperamide [Imodium*] 2 mg PO Q4HR PRN 11/03/22 Nitroglycerin [Nitrostat] 0.4 mg SL Q5M PRN 11/03/22 Polyethyl Gly 3350 [Glycolax*] 17 gm PO DAILY 11/03/22 Vancomycin HCl 750 mg IV SEECOM 11/03/22 lisinopriL [Prinivil*] 10 mg PO DAILY 11/03/22 - Past Medical/Surgical History Diabetic: Yes -: CVA with right-sided weakness -: Insulin dependent type 2 Diabetes -: Hypertension -: Atrial Fibrillation on chronic anticoagulation -: NEUROPATHY -: HLD -: HYPOTHYROIDISM -: ESRD on HD -: chronic osteomyelitis with non-healing ulcer right great toe s/p fall(2017) -: thyroidectomy -: cataract sx -: hysterectomy -: pacemaker -: Left great toe amputation Psychosocial/ Personal History: [facility] resident - Family History Mother -: Hypertension Father -: Diabetes - Social History Alcohol use: No CD- Drugs: No Caffeine use: No Place of Residence: [facility] Review of Systems 10-point ROS is otherwise unremarkable Musculoskeletal: Back Pain Physical Examination - Physical Exam General: Alert, In no apparent distress, Oriented x2, Obese HEENT: Atraumatic, PERRLA, EOMI Neck: Supple, 2+ carotid pulse no bruit, No LAD Respiratory: Clear to auscultation bilaterally, Normal air movement Cardiovascular: Regular rate/rhythm, Normal S1 S2 Gastrointestinal: Normal bowel sounds, No tenderness Musculoskeletal: No tenderness Integumentary: Pressure ulcer (Large unstageable sacral decubitus ulceration) Neurological: Normal speech - Studies Laboratory Data (last 24 hrs) 01/17/23 01/17/23 12:49 12:49 WBC 14.40 H Hgb 10.1 L Hct 31.3 L Plt Count 178 Sodium 138 Potassium 4.1 BUN 42 H Creatinine 3.37 H Glucose 81 Total Bilirubin 0.3 AST 19 ALT 14 Alkaline Phosphatase 88 Microbiology Data (last 24 hrs): 01/17/23 12:49 Nasopharnyx Influenza Type A Antigen Screen - Final 01/17/23 12:49 Nasopharnyx Influenza Type B Antigen Screen - Final Assessment and Plan - Plan 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 Atrial fibrillation on chronic anticoagulation Hypertension Hypothyroidism Plan: Infected unstageable sacral decubitus ulceration General surgery consultation Leukocytosis WBC 14, no other SIRS criteria at this time Lactate less than 2, blood cultures obtained in ED Continue antibiotics vancomycin, meropenem Wound care per surgery 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 At baseline, primarily bedbound Resident of [facility], uses [facility] for transfers Diabetes mellitus type 2insulin-dependent ACHS Accu-Chek sliding scale insulin ESRD on HD MWF Nephrology consult in place, last dialysis Friday Atrial fibrillation on chronic anticoagulation Currently rate controlled, continue home medications including amiodarone, Continue Eliquis when cleared by surgery Hypertension Hypothyroidism Continue home medications DVT PPX:SCD until surgery eval, Code status:Full Discharge Plan: Long Term Plan to discharge in: Greater than 2 days - Advance Directives Does patient have a Living Will: No Does patient have a Durable POA for Healthcare: Yes - Code Status/Comfort Care Code Status Assessed: Yes (Full code) Critical Care: No Time Spent Managing Pts Care (In Minutes): 70
[2023-01-17] MEDS ORDERED: NA CHLORIDE 0.9% 250 ML ONE (15:06)
[2023-01-17] MEDS ORDERED: VANCOMYCIN 500 MG/VIAL ONE (15:06)
[2023-01-17 17:56] VITALS: BMI 38.7
[2023-01-17] MEDS ORDERED: HYDROCODONE/APAP 7.5/325 MG TAB PO PRN (18:18)
[2023-01-17] MEDS ORDERED: ONDANSETRON 4 MG/2 ML VIAL IV PRN (19:38)
[2023-01-17] MEDS: INSULIN REGULAR (HUMAN) 100 UNIT/ML SQ SCH ×2 (19:38→21:00)
--- NOTE | 2023-01-17 19:55 | CON ---
Date of Consultation: 01/17/2023 Reason For Service: Multiple lower extremity and sacral decubitus ulcer. History Of Present Illness: This is a case of an 82-year-old patient, known by us due to history of sacral decubitus ulcer. She was sent to an LTAC for an infected sacral decubitus ulcer. The patient has been on antibiotics since then. We have also osteomyelitis in that region. Then, after that, s he went to a skilled nursing about 2 days ago. When she went to a skilled nursing, the dressing changes we re changed to a Dakin solution. Today, the wound was not getting better, so she was sent to our ER. I was consulted for the case. The last antibiotic she has been receiving is meropenem and vancomyci n. She states she has been laying on her back a lot and that is not helping her ulcer. Allergies: REVIEWED. Past Medical History: Includes CVA, insulin-dependent diabetes, hypertension, atrial fibrillation, n europathy, hypothyroidism, chronic osteomyelitis. Past Surgical History: Includes hysterectomy, pacemaker, toe amputation, cataract surgery, multiple debridements of the sacral decubitus ulcer. Family History: Includes hypertension. Social History: She does not smoke. She does not drink alcohol. Review of Systems: She is awake, alert. No fever, and she has complained of a tenderness on the sacral region. Ten poi nts otherwise unremarkable. Physical Examination: General: The patient is awake, alert. No distress. Oriented x3. HEENT: Pupils anicteric. Neck: Supple. Abdomen: Soft and depressible. Integumentary: Shows multiple ulcerations, the first one is and the most pronounced is the one at os teomyelitis, which is a pressure ulcer on the sacrum. There is a combination with fibrin present. T he reviewed with the patient's family and some loan servicing representative from the place which she was staying at. The patient has also multiple decubitus ulcers on the heel area also on the first metat arsal bone region that is new and also in the opposite side where she has a previous amputation. Per ipheral pulses not present, that is chronic on her. White count is 14.4, hemoglobin of 10.1, platele ts of 178, potassium is 4.1, creatinine is 3.37. X-ray still pending. Assessment: An 82-year-old patient with multiple decubitus ulcers, been clean in the past. She is a dialysis patient. We are going to see how they can get her medically stable. Eventually, we will l massimo to take her to Surgery under anesthesia to see we can do the debridement of that region, in the s acrum, and also the lower extremities. At this moment, we are going to continue with just Santyl, of floading. Nutrition will be checkup. Continue antibiotics per ID. ARLEN/SUSANNAL Voice ID: [id number] Report ID: [id number]
[2023-01-17] MEDS: Meropenem 1,000 MG in NA CHLORIDE 0.9% 100 ML IV SCH (21:00)
[2023-01-17] MEDS: ATORVASTATIN 80 MG TAB PO SCH (21:48)
[2023-01-17] MEDS: AMIODARONE HCL 200 MG TAB PO SCH (21:48)
[2023-01-17] MEDS ORDERED: VANCOMYCIN 1.5 GM in NA CHLORIDE 0.9% 500 ML IVPB ONE (22:00)
[2023-01-18] MEDS: HYDROCODONE/APAP 7.5/325 MG TAB PO PRN ×3 (03:08→23:27)
[2023-01-18] MEDS ORDERED: MAGNESIUM HYDROXIDE 8% 30 ML PO PRN (06:17)
[2023-01-18] MEDS: MIDODRINE HCL 5 MG TABLET PO SCH ×3 (06:30→23:27)
[2023-01-18 06:47] LABS: Absolute Lymphocytes (CBC) 0.9 K/uL (0.7-4.9); Hematocrit 37.6 % (36.0-45.0); Lymphocytes % 6.6 % (15.3-44.8); MCV 103.9 fL (80-100); MPV 8.4 fL (7.6-11.3); Platelets 179 thou/uL (152-406); RBC Red Blood Cell Count 3.62 M/uL (3.86-4.86)
[2023-01-18 07:00] LABS: Potassium 4.9 mEq/L (3.5-5.1)
[2023-01-18] MEDS ORDERED: BUDESONIDE 0.5 MG/2 ML NEB IH SCH (07:00)
[2023-01-18] MEDS: INSULIN REGULAR (HUMAN) 100 UNIT/ML SQ SCH ×4 (07:30→21:00)
--- NOTE | 2023-01-18 08:57 | P.PN ---
Date of Service: 01/18/23 Subjective: No acute events overnight Pain medications helping ROS: 10 point ROS as noted above, otherwise negative Physical exam GEN: Alert, oriented, NAD HEENT: Normal conjunctiva, sclera anicteric CV: Regular rate and rhythm, no edema Pulm: Nonlabored respirations on room air ABD: Soft, nontender, nondistended MSK: No joint tenderness Integumentary: Large sacral decubitus ulcerationunstageable with necrotic tissue present Neuro: Normal speech, normal affect Vitals reviewed 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 Atrial fibrillation on chronic anticoagulation Hypertension Hypothyroidism Plan: Infected unstageable sacral decubitus ulceration General surgery consultation White blood cell count improving Follow blood cultures Continue antibiotics vancomycin, meropenem Infectious disease consult Surgery plans for debridement on Friday after holding Eliquis 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 At baseline, primarily bedbound Resident of [facility], uses [employer] for transfers Family reports patient was ambulatory with assistance in the recent past Physical therapy consulted Diabetes mellitus type 2insulin-dependent ACHS Accu-Chek sliding scale insulin ESRD on HD MWF Nephrology consult in place, last dialysis Friday Atrial fibrillation on chronic anticoagulation Currently rate controlled, continue home medications including amiodarone, Cover with therapeutic Lovenox for now, restart Eliquis when cleared by surgery Hypertension Hypothyroidism Home medications continued VTE: Therapeutic Lovenox Code: Full Dispo: Greater than 3 days Time Spent Managing Pts Care (In Minutes): 35
[2023-01-18] MEDS: HOME MED 1 EA UNK (Protein Supplement [Promod] 946 ML Liquid) PO SCH ×2 (09:00→21:00)
[2023-01-18] MEDS: ZINC SULFATE 220 MG CAP PO SCH (09:00)
[2023-01-18] MEDS: SENOSIDES 8.6 MG TAB PO SCH ×2 (09:18→20:07)
[2023-01-18] MEDS: CLOPIDOGREL 75 MG TABLET PO SCH (09:18)
[2023-01-18] MEDS: ASCORBIC ACID 500 MG TABLET PO SCH ×2 (09:19→20:08)
[2023-01-18] MEDS: FERROUS SULFATE 325 MG TAB PO SCH ×2 (09:19→16:46)
[2023-01-18] MEDS: AMIODARONE HCL 200 MG TAB PO SCH ×2 (09:19→20:07)
[2023-01-18] MEDS: ENOXAPARIN 100 MG/ML SYR SQ SCH (09:20)
[2023-01-18] MEDS: POLYETHYL GLY 3350 17 GM/DOSE PO SCH (09:20)
[2023-01-18] MEDS: Meropenem 1,000 MG in NA CHLORIDE 0.9% 100 ML IV SCH ×2 (09:21→20:06)
[2023-01-18] MEDS: NEPRO SHAKE 237 ML CAN PO SCH (09:25)
[2023-01-18 10:34] LABS: Protime INR 1.41
[2023-01-18] MEDS: COLLAGENASE 30 GM OINTMENT TOP SCH (10:40)
--- NOTE | 2023-01-18 11:37 | CON ---
Date of Consultation: 01/18/2023 Reason For Consultation: Elevated BUN and creatinine, over volume, end-stage renal disease. History Of Present Illness: This is a pleasant 82-year-old female, well known to me from the dialysis for significant past medical history of end-stage renal disease, on hemodialysis, Friday, Friday, Friday at [facility]. Next, diabetes complicated with neuropathy, nephropathy, hypertension, CAD complicated with congestive heart failure, diastolic dysfunction, preserved ejection fraction, CVA, dementia. The patient found in halfway to have decubitus ulcer poorly healing . The patient was supposed to have admitted for wound care and debridement. The patient missed dialysis yesterday, for that reason we have been consulted. Labs showed electrolyte imbalance with hyponatremia and marginal hyperkalemia. Past Medical History: 1. Diabetes complicated with neuropathy and nephropathy. 2. Hypertension. 3. CAD complicated with diastolic congestive heart failure. 4. CVA. 5. Dementia. 6. End-stage renal disease. 7. Hyperlipidemia. Allergies: NO KNOWN DRUGS ALLERGY. Social History: Lives in halfway. Denied smoking. Denied drinking. Denied drugs abuse. Review of Systems: Head and Neck: No red eye. No ear pain. GI: No nausea. No vomiting. : No polyuria, no dysuria, no hematuria. DOCKETING SPECIALIST: No vaginal discharge. RESPIRATORY: Has shortness breath. Cardiovascular: Has leg swelling. Endocrine: No polydipsia. Skin: No rash. Neuro: Bedridden dementia. Musculoskeletal: Generalized fatigue. Past Surgical History: Include 2 amputation, PermCath placement, and removal I and D. Current Medications: In the hospital include, 1. Vancomycin. 2. Plavix. 3. Lovenox. 4. Ferrous sulfate. 5. Meropenem. 6. Atorvastatin. 7. Amiodarone. 8. Gabapentin. 9. Zinc sulfate. 10. Levothyroxine. 11. Senakot. Physical Examination: Vital Signs: When I saw the patient, blood pressure of 112/51, pulse of 50. Chest: Clear to auscultation in the upper zone, crackles on the bases. Heart: S1, S2. Systolic murmur. Abdomen: Soft, nontender. Extremities: +1 edema, toe amputation. Neurologic: Alert. No focality pleasantly confused. Laboratory Data: Sodium 135, potassium 4.9, bicarb 26, BUN 47, creatinine 3.6, calcium 9.2, hemoglobin 11.8, WBC 13.8. Current Medications: The patient on include, 1. Meropenem. 2. Vancomycin. 3. Midodrine. 4. Heparin. 5. Plavix. 6. Lovenox. 7. Ferrous sulfate. 8. Amiodarone. 9. Atorvastatin. 10. Gabapentin. 11. Zofran. Assessment And Plan: 1. End-stage renal disease, missed dialysis yesterday. The patient over volume. I am going to arrange for the dialysis today to make it, then will back the patient on dialysis Friday, Friday, Friday. 2. Hypertension. We will utilize blood pressure for more ultrafiltration. 3. Hyponatremia, will be corrected with dialysis. 4. Anemia of chronic kidney disease. No need for JOHNNY. 5. Secondary hyperparathyroidism. We will follow up renal panel and phosphorus. 6. Decubitus ulcer. Plan for wound care and followup ID. Continue current antibiotic dose appropriate. time spend exam the patient face to face reviweing data lab and radiology , placing order , disccussing the case with the receiving team member including hopsitalist and nursing staff >75 min YUDITH Voice ID: [id number] Report ID: [id number] MTDD
[2023-01-18] MEDS ORDERED: VANCOMYCIN 1 GM in NA CHLORIDE 0.9% 250 ML IVPB SCH (15:00)
[2023-01-18] MEDS ORDERED: MORPHINE 2 MG/ML SYR IV ONE (19:48)
[2023-01-18] MEDS: BUDESONIDE 0.25 MG/2 ML NEB IH SCH (20:05)
[2023-01-18] MEDS: ATORVASTATIN 80 MG TAB PO SCH (20:07)
[2023-01-18] MEDS: GABAPENTIN 100 MG CAP PO SCH (20:07)
[2023-01-18] MEDS: INSULIN GLARGINE 100 UNIT/ML SQ SCH (21:00)
[2023-01-18] MEDS ORDERED: MAGNES/ALUMIN/SIMET 30ML UCUP PO PRN (23:45)
[2023-01-19] MEDS: HYDROCODONE/APAP 7.5/325 MG TAB PO PRN ×3 (02:59→21:48)
[2023-01-19] MEDS: LEVOTHYROXINE SOD 0.025 MG TAB PO SCH (05:48)
[2023-01-19] MEDS: MIDODRINE HCL 5 MG TABLET PO SCH ×3 (05:48→21:48)
[2023-01-19] MEDS: INSULIN REGULAR (HUMAN) 100 UNIT/ML SQ SCH ×4 (07:30→21:00)
[2023-01-19] MEDS: BUDESONIDE 0.25 MG/2 ML NEB IH SCH ×2 (08:00→19:28)
[2023-01-19] MEDS: FERROUS SULFATE 325 MG TAB PO SCH ×2 (08:00→17:00)
[2023-01-19] MEDS: HOME MED 1 EA UNK (Protein Supplement [Promod] 946 ML Liquid) PO SCH ×2 (09:00→21:00)
[2023-01-19] MEDS: NEPRO SHAKE 237 ML CAN PO SCH (09:00)
[2023-01-19] MEDS: ZINC SULFATE 220 MG CAP PO SCH (09:00)
--- NOTE | 2023-01-19 09:29 | P.PN ---
Date of Service: 01/19/23 Subjective: No acute events overnight Pain medications helping Had daughter law come in overnight to company ROS: 10 point ROS as noted above, otherwise negative Physical exam GEN: Alert, oriented, NAD HEENT: Normal conjunctiva, sclera anicteric CV: Regular rate and rhythm, no edema Pulm: Nonlabored respirations on room air ABD: Soft, nontender, nondistended MSK: No joint tenderness Integumentary: Large sacral decubitus ulcerationunstageable with necrotic tissue present Neuro: Normal speech, normal affect Vitals reviewed 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 Atrial fibrillation on chronic anticoagulation Hypertension Hypothyroidism Plan: Infected unstageable sacral decubitus ulceration General surgery consultation White blood cell count improving Follow blood cultures Continue antibiotics vancomycin, meropenem NPO after midnight 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 At baseline, primarily bedbound Resident of [facility], uses [employer] for transfers Family reports patient was ambulatory with assistance in the recent past Physical therapy consulted Diabetes mellitus type 2insulin-dependent ACHS Accu-Chek sliding scale insulin ESRD on HD MWF Nephrology consult in place, last dialysis 01/18 Atrial fibrillation on chronic anticoagulation Currently rate controlled, continue home medications including amiodarone, Cover with therapeutic Lovenox for now, restart Eliquis when cleared by surgery Hypertension Hypothyroidism Home medications continued VTE: Therapeutic Lovenox Code: Full Dispo: Greater than 3 days Time Spent Managing Pts Care (In Minutes): 35
[2023-01-19] MEDS: ASCORBIC ACID 500 MG TABLET PO SCH ×2 (10:52→21:48)
[2023-01-19] MEDS: CLOPIDOGREL 75 MG TABLET PO SCH (10:52)
[2023-01-19] MEDS: AMIODARONE HCL 200 MG TAB PO SCH ×2 (10:52→21:48)
[2023-01-19] MEDS: SENOSIDES 8.6 MG TAB PO SCH ×2 (10:53→21:47)
[2023-01-19] MEDS: ENOXAPARIN 100 MG/ML SYR SQ SCH (10:54)
[2023-01-19] MEDS: POLYETHYL GLY 3350 17 GM/DOSE PO SCH (10:54)
[2023-01-19] MEDS: Meropenem 1,000 MG in NA CHLORIDE 0.9% 100 ML IV SCH ×2 (10:55→21:50)
[2023-01-19] MEDS: COLLAGENASE 30 GM OINTMENT TOP SCH (10:56)
--- NOTE | 2023-01-19 11:50 | PN ---
Date of Progress Note: 01/19/2023 Subjective: The patient was admitted to the hospital with decubitus ulcer, poor healing. The patient was dialyzed yesterday, tolerated the dialysis very well. The patient followed with ID. Physical Examination: Vital Signs: Blood pressure 129/58, pulse of 50, afebrile. Chest: Clear to auscultation. Heart: S1, S2. Systolic murmur. Abdomen: Soft, nontender. Obese, could not appreciate any organomegaly. Has decubitus ulcer. Extremities: Left big toe amputation, multiple heel ulcer. Neurologic: Alert, pleasantly confused. No focality. Laboratory Data: Hemoglobin 11.8. Sodium 135, potassium 4.9, bicarb 26, BUN 47, creatinine 3.6, calcium 9.2. Assessment And Plan: 1. End-stage renal disease, on hemodialysis, received dialysis yesterday. Her schedule is Friday, Friday, Friday. I will arrange for her dialysis tomorrow. 2. Hypertension, controlled optimal. Continue current medication. 3. Secondary hyperparathyroidism. No need for binder for the time being. 4. Hypokalemia. Will be corrected with dialysis. 5. Hyponatremia secondary to renal failure. Will be corrected with dialysis. 6. Decubitus ulcer. Follow up with ID and primary. time spend exam the patient face to face reviweing data lab and radiology , placing order , disccussing the case with the wireless team member including hopsitalist and nursing staff >35 min YUDITH Voice ID: [id number] Report ID: [id number] XIAO
[2023-01-19 12:18] LABS: Absolute Lymphocytes (CBC) 0.8 K/uL (0.7-4.9); Hematocrit 35.1 % (36.0-45.0); Lymphocytes % 5.5 % (15.3-44.8); MCV 103.7 fL (80-100); MPV 8.8 fL (7.6-11.3); Platelets 175 thou/uL (152-406); RBC Red Blood Cell Count 3.39 M/uL (3.86-4.86)
[2023-01-19 12:20] LABS: Albumin 2.2 g/dL (3.4-5.0); Phosphorus 3.8 mg/dL (2.5-4.9); Potassium 4.2 mEq/L (3.5-5.1)
--- NOTE | 2023-01-19 14:02 | PN ---
Date of Progress Note: 01/19/2023 Diagnoses: Sacral pressure ulcer, bilateral feet pressure ulcers. Review of Systems: No shortness of breath. No chest pain. No fever. Physical Examination: Abdomen: Soft and depressible. Integumentary: The patient has sacral ulcers and ulcer bilateral feet including the heel and also me tatarsal regions bilaterally. Data: Blood work is still pending. Plan: NPO after midnight and then we will do a debridement of the bilateral feet ulcers and also sac ral ulcer with benefits, alternatives, and risks explained to her and to the at bedside which include, but not limited to, infection, bleeding, damage to adjacent structures, anesthesia complica tion, nonhealing wound, WI, even . They also understand the importance of continuation of care and chronic wound care and very important also offloading and diabetes control. ARLEN/MODL Voice ID: [id number] Report ID: [id number]
[2023-01-19] MEDS ORDERED: Meropenem 1000 MG/VIAL IV ONE (21:23)
[2023-01-19] MEDS: GABAPENTIN 100 MG CAP PO SCH (21:48)
[2023-01-19] MEDS: ATORVASTATIN 80 MG TAB PO SCH (21:49)
[2023-01-19] MEDS: INSULIN GLARGINE 100 UNIT/ML SQ SCH (21:49)
[2023-01-20 04:06] LABS: Hepatitis B Surface Ab - Quant 3.98 mIU/mL (<8.0); Hepatitis B surface AG Interp. Nonreactive (Nonreactive)
[2023-01-20] MEDS: MIDODRINE HCL 5 MG TABLET PO SCH ×3 (05:09→22:06)
[2023-01-20] MEDS: LEVOTHYROXINE SOD 0.025 MG TAB PO SCH (05:09)
[2023-01-20] MEDS: INSULIN REGULAR (HUMAN) 100 UNIT/ML SQ SCH ×4 (07:30→19:53)
[2023-01-20] MEDS: BUDESONIDE 0.25 MG/2 ML NEB IH SCH ×2 (07:37→20:00)
[2023-01-20] MEDS: FERROUS SULFATE 325 MG TAB PO SCH ×2 (08:00→15:36)
--- NOTE | 2023-01-20 08:29 | P.CNS ---
Date of Consult: 01/20/23 Reason for Consult: mutual pt, sacral decubitus ulcer Chief Complaint: Infected sacral decubitus ulceration History of Present Illness: Patient is an 82-year-old female with a past medical history of diabetes melitis type II, ESRD on hemodialysis, hypertension, hypothyroidism, atrial fibrillation, prior CVA, chronic sacral ulcer who presented to the ED from skilled nursing with complaints of worsening sacral ulcer infection and confusion/altered mental status. Patient was admitted for infected unstageable sacral decubitus ulceration and encephalopathy. Infectious disease was consulted. Of note, patient has been hospitalized multiple times over the past year. Allergies No Known Allergies Allergy (Verified 09/25/22 01:17) Home medications list reviewed: Yes Home Medications: Atorvastatin Calcium [Lipitor] 1 tab PO BEDTIME 05/08/17 Amiodarone HCl [Pacerone] 200 mg PO DAILY 06/22/22 Ascorbic Acid 500 mg PO BID 06/22/22 Gabapentin 100 mg PO BEDTIME 06/22/22 Docusate [Colace Cap*] 100 mg PO BID 07/22/22 Apixaban [Eliquis *] 2.5 mg PO BID 09/06/22 Acetaminophen [Acetaminophen ER] 650 mg PO Q4HR PRN 11/03/22 Diphenhydramine [Benadryl*] 25 mg PO Q4HR PRN 11/03/22 Insulin Lispro [Humalog] See Protocol SQ ACHS 11/03/22 Polyethyl Gly 3350 [Glycolax*] 17 gm PO DAILY 11/03/22 Acetaminophen with Codeine [Tylenol with Codeine #4 Tablet] 1 each PO Q8HP PRN 01/18/23 Albuterol Sulfate [Albuterol Sulfate 0.083% Neb Soln] 2.5 mg IH Q6HP PRN 01/18/23 Budesonide [Pulmicort] 0.5 mg IH Q12H 01/18/23 Clopidogrel Bisulfate [Plavix] 75 mg PO DAILY 01/18/23 Ferrous Sulfate [Feosol] 325 mg PO BID 01/18/23 Folic Acid/Vit B Complex and C [Renal Vitamin Tablet] 1 tab PO DAILY 01/18/23 Insulin Glargine,Hum.rec.anlog [Insulin Glargine] 12 unit SQ BEDTIME 01/18/23 Levothyroxine Sodium 25 mcg PO 0600 01/18/23 Mag Hydroxide 8% [Milk Of Magnesia] 30 ml PO DAILYPRN PRN 01/18/23 Meropenem [Merrem 500 MG/100 ML NS IVPB] 500 mg IV Q12H 01/18/23 Midodrine HCl 1.5 tab PO Q8H 01/18/23 Nepro Shake [Nepro*] 237 ml PO DAILY 01/18/23 Protein Supplement [Promod] 60 ml PO BID 01/18/23 Sennosides 2 tab PO BID 01/18/23 Silver Sulfadiazine [Silvadene 1% Cream] 1 appl TOP Q12H 01/18/23 Vancomycin/0.9 % Sod Chloride [Vancomycin HCl 1G/200 ml Bag] 1 gm IV M,W,F 01/18/23 Zinc Sulfate [Zinc Sulfate*] 220 mg PO DAILY 01/18/23 bisacodyL [Dulcolax] 5 mg PO DAILYPRN PRN 01/18/23 predniSONE [Deltasone] 10 mg PO DAILY 01/18/23 - Past Medical/Surgical History Diabetic: Yes -: CVA with right-sided weakness -: Insulin dependent type 2 Diabetes -: Hypertension -: Atrial Fibrillation on chronic anticoagulation -: NEUROPATHY -: HLD -: HYPOTHYROIDISM -: ESRD on HD -: chronic osteomyelitis with non-healing ulcer right great toe s/p fall(2017) -: thyroidectomy -: cataract sx -: hysterectomy -: pacemaker -: Left great toe amputation Psychosocial/ Personal History: [facility] resident - Family History Mother Medical History: Hypertension Father Medical History: Diabetes - Social History Smoking Status: Unknown if ever smoked Alcohol use: No CD- Drugs: No Caffeine use: No Place of Residence: Skilled Nursing Physical Examination Temp Pulse Resp BP Pulse Ox 97.3 F 54 17 97/41 L 98 01/20/23 08:00 01/20/23 08:00 01/20/23 08:00 01/20/23 08:00 01/20/23 08:00 General: In no apparent distress, Oriented x2, Confused HEENT: Atraumatic, Normocephalic Neck: Supple Respiratory: Normal air movement, Diminished, Other (on 2L nasal cannula) Cardiovascular: Regular rate/rhythm Gastrointestinal: Normal bowel sounds, Soft and benign Integumentary: Pressure ulcer (sacrum-unstageable) Urinary: Castro catheter (opaque light brown) Laboratory data -Reviewed Microbiology data -Reviewed Imagings Data: - Reviewed Conclusions/Impression: Problem List Infection of Sacral Pressure Ulcer unstageable Prior CVA with residual right sided hemiplegia Diabetes Mellitus type II ESRD Atrial Fibrillation Hypothyroidism Hypertension Infection of Sacral Pressure Ulcer - Patient was reportedly on Meropenem and Vancomycin at skilled nursing without improvement in symptoms - Currently on Meropenem and Vancomycin - Wound cultures 01/20: Pending Blood cultures 01/17: pending Leukocytosis with left shift WBC 13.8 Afebrile Recommendations - Continue Meropenem and Vancomycin for now. - Follow up with culture results. Will adjust antibiotics as appropriate. - Monitor WBC and fever trends - Pressure offloading measures. Turn patient q2h, wedge pillow, low air-loss mattress - Strict blood glucose control Scheduled for debridement today of unstageable sacral pressure ulcer. Case discussed with Dr. Beal N
[2023-01-20] MEDS: AMIODARONE HCL 200 MG TAB PO SCH ×2 (09:00→22:08)
[2023-01-20] MEDS: COLLAGENASE 30 GM OINTMENT TOP SCH (09:00)
[2023-01-20] MEDS: SENOSIDES 8.6 MG TAB PO SCH ×2 (09:00→22:08)
[2023-01-20] MEDS: HOME MED 1 EA UNK (Protein Supplement [Promod] 946 ML Liquid) PO SCH ×2 (09:00→21:00)
[2023-01-20] MEDS: ASCORBIC ACID 500 MG TABLET PO SCH ×2 (09:00→22:07)
[2023-01-20] MEDS: ZINC SULFATE 220 MG CAP PO SCH (09:00)
[2023-01-20] MEDS: POLYETHYL GLY 3350 17 GM/DOSE PO SCH (09:00)
[2023-01-20] MEDS: NEPRO SHAKE 237 ML CAN PO SCH (09:00)
[2023-01-20] MEDS: CLOPIDOGREL 75 MG TABLET PO SCH (09:00)
--- NOTE | 2023-01-20 10:01 | P.PN ---
Date of Service: 01/20/23 Subjective: No acute events overnight Pain medications helping family at bedside plan for debridement today ROS: 10 point ROS as noted above, otherwise negative Physical exam GEN: Alert, oriented, NAD HEENT: Normal conjunctiva, sclera anicteric CV: Regular rate and rhythm, no edema Pulm: Nonlabored respirations on room air ABD: Soft, nontender, nondistended MSK: No joint tenderness Integumentary: Large sacral decubitus ulcerationunstageable with necrotic tissue present Neuro: Normal speech, normal affect Vitals reviewed 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 At baseline, primarily bedbound Resident of [facility], uses [facility] for transfers Family reports patient was ambulatory with assistance in the recent past Physical therapy consulted Diabetes mellitus type 2insulin-dependent ACHS Accu-Chek sliding scale insulin ESRD on HD MWF Nephrology consult in place Atrial fibrillation on chronic anticoagulation Currently rate controlled, continue home medications including amiodarone, restart eliquis 01/21-ordered Hypertension Hypothyroidism Home medications continued VTE: eliquis starting back on 01/21 Code: Full Dispo: Greater than 3 days Time Spent Managing Pts Care (In Minutes): 35
[2023-01-20] MEDS: Meropenem 1,000 MG in NA CHLORIDE 0.9% 100 ML IV SCH (10:41)
[2023-01-20] MEDS ORDERED: NA CHLORIDE 0.9% 500 ML ONE (11:05)
[2023-01-20] MEDS ORDERED: ONDANSETRON 4 MG/2 ML VIAL ONE (12:08)
[2023-01-20] MEDS ORDERED: LIDOCAINE 2% MPF 5 ML VIAL ONE (12:09)
[2023-01-20] MEDS ORDERED: propofoL 200 MG/20 ML VIAL IV ONE (12:09)
[2023-01-20] MEDS ORDERED: FENTANYL CITR 100 MCG/2 ML ONE (12:09)
[2023-01-20] MEDS ORDERED: NOREPINEPHRINE BITARTRATE/D5W 4 MG/250 ML BAG IV SCH (13:00)
[2023-01-20] MEDS ORDERED: MUPIROCIN 2% OINT 22GM TUBE TOP ONE (13:00)
--- NOTE | 2023-01-20 13:07 | P.BOP ---
Preoperative diagnosis: necrotic pressure ulcers, osteomyelitis Postoperative diagnosis: necrotic pressure ulcers Primary procedure: Excisional debridement of necrotic pressure ulcers: 1. sacrum([id number], Secondary procedure: 2. Left heel(4x4cm), 3. right heel(6x6cm), 4. Left metatarsal(3x3cm) Other procedure(s): 5. Left 2nd toe(2x2cm) , Pulse lavage Estimated blood loss: <10cc Specimen: necrotic tissue, culture Findings: see dicta Anesthesia: MAC Complications: None Drain(s): Other Transferred to: Recovery Room Condition: Good
[2023-01-20] MEDS: FENTANYL CITR 100 MCG/2 ML ONE ×3 (13:20→13:50)
[2023-01-20] MEDS: HYDROCODONE/APAP 7.5/325 MG TAB PO PRN (15:35)
--- NOTE | 2023-01-20 20:08 | OP ---
Date of Procedure: 01/20/2023 Surgeon: Rito Carson MD Preoperative Diagnosis: Necrotic pressure ulcers, osteomyelitis. Postoperative Diagnosis: Necrotic pressure ulcers, osteomyelitis. Procedures: Excisional surgical debridement of necrotic pressure ulcers: 1.Sacrum 15 x 8 x 2 cm. 2.Left heel 4 x 4 cm. 3.Right heel 6 x 6 cm. 4.Left metatarsal area 3 x 3 cm. 5.Left second toe 2 x 2 cm. Done also with the pulse lavage. Estimated Blood Loss: Less than 10 cc. Specimen: Necrotic tissue and culture. Findings: Multiple pressure ulcers with necrotic tissue. Anesthesia: MAC plus local anesthetic. Complications: None. Indications: This is a case of a female with the history of renal disease and multiple medical probl ems with longstanding pressure ulcers. She was also found to have osteomyelitis. She was sent to an LTAC. From LTAC, went to a skilled facility like a SNF unit and then within 48 hours, she was ready back at the hospital. The patient still has open wounds in that region and a surgical consult was o btained for evaluation. The patient's family fully explained the benefits, alternatives, and risks o f excisional debridement of necrotic ulcers, which include, but not limited to, infection, bleeding, damage to adjacent structures, anesthesia complication, nonhealing wound, [place], and even . They a lso understood this might not relieve any symptoms. She might need more than one surgical interventi on. She understood the importance of offloading. We need her also to cooperate with us and also the importance of nutrition, following up with her medical doctors and compliant with her medical treatm ents. She signed a consent. Description Of Procedure: Patient was brought to the operating room, placed in supine position. Ane sthesia was done without complication. The patient was placed in lateral decubitus position with pro per protection. Sacral and bilateral feet area were prepped and draped in the usual sterile fashion. Local anesthesia was applied to every area and every area was done using same technique which consi sted of surgical debridement and with a sharp A knife and a pulse lavage and necrotic tissue was winnie sharon, and we did that from the sacrum, left heel, right heel, left metatarsal, and left second toe. H emostasis was obtained with the Bovie cauterizer and then the area was packed with mupirocin and 4 x 4's. Patient tolerated the procedure well. The patient on his way to Recovery in stable condition. The patient will remain on the floor, offloading is important, nutrition, and we are going to be elizabeth Mcdaniel on the floor. Patient already had been followed by Infectious Disease. ARLEN/LAYLA Voice ID: [id number] Report ID: [id number]
[2023-01-20] MEDS: Meropenem 500 MG in NA CHLORIDE 0.9% 100 ML IV SCH (22:07)
[2023-01-20] MEDS: ATORVASTATIN 80 MG TAB PO SCH (22:07)
[2023-01-20] MEDS: GABAPENTIN 100 MG CAP PO SCH (22:08)
[2023-01-20] MEDS: INSULIN GLARGINE 100 UNIT/ML SQ SCH (22:08)
--- NOTE | 2023-01-21 04:10 | PN ---
Date of Progress Note: 01/20/2023 Chief Complaint: End stage renal disease. Subjective: The patient is admitted to the hospital with decubitus ulcer. The patient is undergoing dialysis on Friday, , and Friday. Review of Systems: Denies chest pain, palpitation. Physical Examination: Lungs: Diminished breath sounds at bases. Heart: S1-S2. Abdomen: Soft. Extremities: Slight edema. Impression And Plan: 1.End-stage renal disease. The patient will have dialysis tomorrow. Continue to monitor renal func tion. Continue to monitor electrolytes. 2.Hypertension, controlled optimal. 3.Secondary hyperparathyroidism. Monitor phosphorus level. The patient does not require binders. 4.Hypokalemia. Adjust electrolytes with dialysis. 5.Hyponatremia secondary to kidney failure and fluid overload. Continue p.o. fluid restriction, low -sodium diet. EB/MODL Voice ID: [id number] Report ID: [id number]
[2023-01-21] MEDS: HYDROCODONE/APAP 7.5/325 MG TAB PO PRN ×4 (04:12→22:46)
[2023-01-21] MEDS: MIDODRINE HCL 5 MG TABLET PO SCH ×3 (06:47→22:46)
[2023-01-21] MEDS: LEVOTHYROXINE SOD 0.025 MG TAB PO SCH (06:48)
[2023-01-21 07:00] LABS: Albumin 1.8 g/dL (3.4-5.0); Phosphorus 3.4 mg/dL (2.5-4.9); Potassium 5.2 mEq/L (3.5-5.1)
[2023-01-21] MEDS: INSULIN REGULAR (HUMAN) 100 UNIT/ML SQ SCH ×4 (07:30→20:34)
[2023-01-21] MEDS: BUDESONIDE 0.25 MG/2 ML NEB IH SCH ×2 (07:45→19:34)
--- NOTE | 2023-01-21 08:43 | P.PN ---
Date of Service: 01/21/23 Chief Complaint: Infected sacral decubitus ulceration Subjective: Remains confused. In no apparent distress. Reports pain of sacrum and left foot. Yesterday (01/20/2023) patient underwent Excisional surgical debridement of necrotic ulcers of sacrum (15 x 8 x 2 cm), Left heel (4 x 4 cm), Right heel (6 x 6 cm), Left metatarsal area (3 x 3 cm), Left second toe (2 x 2 cm). Physical Examination Temp Pulse Resp BP Pulse Ox 97.6 F 58 18 110/51 L 96 01/21/23 04:00 01/21/23 04:00 01/21/23 04:12 01/21/23 04:00 01/21/23 04:00 General: In no apparent distress, Oriented x2, Confused HEENT: Atraumatic, Normocephalic Neck: Supple Respiratory: Normal air movement, Diminished. On 2L nasal cannula. Cardiovascular: Regular rate/rhythm Gastrointestinal: Normal bowel sounds, Soft and benign Integumentary: Pressure Ulcer Sacrum stage Urinary: Castro catheter Laboratory data -Reviewed Microbiology data - Blood cultures 01/17: No growth to date Imagings Data: - Reviewed Medications List: Reviewed Assessment and Plan Problem List Infection of Sacral Pressure Ulcer unstageable Prior CVA with residual right sided hemiplegia Diabetes Mellitus type II ESRD Atrial Fibrillation Hypothyroidism Hypertension Infection of Sacral Pressure Ulcer with necrotic tissue - s/p debridement on 01/[address] Carson - Currently on Meropenem and Vancomycin - Sacral Wound cultures 01/20: Pending 01/20 underwent Excisional surgical debridement of necrotic ulcers of sacrum (15 x 8 x 2 cm), Left heel (4 x 4 cm), Right heel (6 x 6 cm), Left metatarsal area (3 x 3 cm), Left second toe (2 x 2 cm). Recommendations - Continue Meropenem and Vancomycin for now. - Follow up with culture results. Will adjust antibiotics as appropriate. - s/p debridement sacral ulcer, continue wound care per Dr. Carson. - Monitor WBC and fever trends - Pressure offloading measures. Turn patient q2h, wedge pillow, low air-loss mattress - Strict blood glucose control Scheduled for debridement today of unstageable sacral pressure ulcer. Case discussed with Dr. Beal, N
[2023-01-21] MEDS: POLYETHYL GLY 3350 17 GM/DOSE PO SCH (09:00)
[2023-01-21] MEDS: HOME MED 1 EA UNK (Protein Supplement [Promod] 946 ML Liquid) PO SCH ×2 (09:00→20:49)
[2023-01-21] MEDS: SENOSIDES 8.6 MG TAB PO SCH ×2 (09:00→20:48)
[2023-01-21] MEDS: NEPRO SHAKE 237 ML CAN PO SCH (09:00)
[2023-01-21] MEDS ORDERED: VANCOMYCIN 1 GM in NA CHLORIDE 0.9% 250 ML IV SCH ×2 (09:00→13:00)
[2023-01-21] MEDS: ZINC SULFATE 220 MG CAP PO SCH (09:00)
[2023-01-21] MEDS: CLOPIDOGREL 75 MG TABLET PO SCH (09:03)
[2023-01-21] MEDS: ASCORBIC ACID 500 MG TABLET PO SCH ×2 (09:04→20:48)
[2023-01-21] MEDS: FERROUS SULFATE 325 MG TAB PO SCH ×2 (09:04→16:34)
[2023-01-21] MEDS: AMIODARONE HCL 200 MG TAB PO SCH ×2 (09:04→20:48)
[2023-01-21] MEDS: APIXABAN 2.5 MG TABLET PO SCH ×2 (09:05→20:48)
[2023-01-21] MEDS: COLLAGENASE 30 GM OINTMENT TOP SCH (12:00)
[2023-01-21] MEDS: VANCOMYCIN 1 GM in NA CHLORIDE 0.9% 250 ML IVPB SCH (12:36)
--- NOTE | 2023-01-21 13:57 | EKG ---
Test Date: 2023-01-17 Test Time: 13:17:21 Photographer'S Model: BREEZY MEASUREMENT RESULTS: Intervals: Rate: 52 OK: 188 QRSD: 150 QT: 506 QTc: 470 Benedict: P: 58 OK: 188 QRS: 8 T: 47 INTERPRETIVE STATEMENTS: Sinus bradycardia Right bundle branch block Abnormal ECG Compared to ECG 11/02/2022 14:07:54 First degree AV block no longer present Electronically Signed On 01-21-23 13:43:43 [employer]UFFER by Lui Tomlinson
--- NOTE | 2023-01-21 14:45 | P.PN ---
Date of Service: 01/21/23 Subjective: Awake, eating breakfast independently. She c/o of decreased feeling in her left hand which she is using to eat. Dialysis expected tomorrow. ROS: 10 point ROS as noted above, otherwise negative Physical exam GEN: Alert, oriented, NAD HEENT: Normal conjunctiva, sclera anicteric CV: Regular rate and rhythm, no edema Pulm: Nonlabored respirations on room air ABD: Soft, nontender, nondistended MSK: No joint tenderness Integumentary: Large sacral decubitus ulcerationunstageable with necrotic tissue present Neuro: Normal speech, normal affect Vitals BP 122/56,HR 54, RR 20, temp 97.7, O2 saturation 97% on RA. 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 At baseline, primarily bedbound Resident of [facility], uses [facility] for transfers Family reports patient was ambulatory with assistance in the recent past Physical therapy consulted- states she is a baseline and signed off Diabetes mellitus type 2insulin-dependent ACHS Accu-Chek sliding scale insulin ESRD on HD MWF Nephrology consult in place dialysis tomorrow-[facility]ountine schedule plan to replace electrolytes in dialysis Atrial fibrillation on chronic anticoagulation Currently rate controlled, continue home medications including amiodarone, restart eliquis 01/21-ordered Hypertension Hypothyroidism Home medications continued VTE: eliquis starting back on 01/21 Code: Full Dispo: Greater than 3 days, LTAC Time Spent Managing Pts Care (In Minutes): 35
--- NOTE | 2023-01-21 19:56 | PN ---
Date of Progress Note: 01/21/2023 Subjective: The patient was admitted to the hospital with decubitus ulcer, status post debridement. The patient awaiting for placement. Objective: Vital Signs: Blood pressure 126/59, pulse of 52, afebrile. Chest: Clear to auscultation. Heart: S1, S2. Regular. Abdomen: Soft, nontender, decubitus ulcer. Extremities: Big toe amputation. Multiple ulcer on the feet. Neurologic: Alert. Pleasantly confused. Laboratory Data: Hemoglobin 11.3, sodium 138, potassium 5.2, bicarb 25, BUN 32, creatinine 3.1, calc ium 7.9, phosphorus 3.1, albumin 1.8. Corrected calcium is 9.5. Current Medications: The patient on, it includes: 1.Meropenem. 2.Vancomycin. 3.Midodrine 15 t.i.d. 4.Plavix. 5.Eliquis. 6.Atorvastatin. 7.Nepro. Assessment And Plan: 1.End-stage renal disease. We will continue the patient on dialysis per her schedule. Patient is g richie to be scheduled for dialysis tomorrow. We will follow up. 2.Hypertension. We will keep currently low blood pressure, keep using midodrine. 3.Anemia of chronic kidney disease. No need for JOHNNY. 4.Decubitus ulcer. Patient waiting for approval for LTAC. Continue current antibiotic. YUDITH Voice ID: [id number] Report ID: [id number]
[2023-01-21] MEDS: ATORVASTATIN 80 MG TAB PO SCH (20:47)
[2023-01-21] MEDS: GABAPENTIN 100 MG CAP PO SCH (20:47)
[2023-01-21] MEDS: INSULIN GLARGINE 100 UNIT/ML SQ SCH (20:48)
[2023-01-21] MEDS: Meropenem 500 MG in NA CHLORIDE 0.9% 100 ML IV SCH (20:49)
[2023-01-21] MEDS ORDERED: VANCOMYCIN 1 GM in NA CHLORIDE 0.9% 250 ML IVPB SCH (21:00)
[2023-01-22 03:10] LABS: Albumin 1.7 g/dL (3.4-5.0); Phosphorus 3.7 mg/dL (2.5-4.9); Potassium 4.9 mEq/L (3.5-5.1)
[2023-01-22] MEDS: HYDROCODONE/APAP 7.5/325 MG TAB PO PRN ×4 (06:12→17:12)
[2023-01-22] MEDS: MIDODRINE HCL 5 MG TABLET PO SCH ×3 (06:12→23:33)
[2023-01-22] MEDS: LEVOTHYROXINE SOD 0.025 MG TAB PO SCH (06:12)
[2023-01-22] MEDS: INSULIN REGULAR (HUMAN) 100 UNIT/ML SQ SCH ×4 (07:30→20:42)
[2023-01-22] MEDS: BUDESONIDE 0.25 MG/2 ML NEB IH SCH ×2 (07:52→20:00)
[2023-01-22] MEDS: ZINC SULFATE 220 MG CAP PO SCH (09:00)
[2023-01-22] MEDS: HOME MED 1 EA UNK (Protein Supplement [Promod] 946 ML Liquid) PO SCH ×2 (09:00→20:41)
[2023-01-22] MEDS: POLYETHYL GLY 3350 17 GM/DOSE PO SCH (09:00)
[2023-01-22] MEDS: COLLAGENASE 30 GM OINTMENT TOP SCH (09:00)
[2023-01-22] MEDS: NEPRO SHAKE 237 ML CAN PO SCH (09:00)
--- NOTE | 2023-01-22 09:02 | P.PN ---
Date of Service: 01/22/23 Chief Complaint: Infected sacral decubitus ulceration Subjective: In no apparent distress. No acute events overnight. + sacral pain Pending LTAC placement. Physical Examination Temp Pulse Resp BP Pulse Ox 97.7 F 50 18 129/62 100 01/22/23 04:00 01/22/23 04:00 01/22/23 04:00 01/22/23 04:00 01/22/23 04:00 General: In no apparent distress, Oriented x2, Confused HEENT: Atraumatic, Normocephalic. Neck supple. Respiratory: Normal air movement, Diminished. On 2L nasal cannula. Cardiovascular: Regular rate/rhythm. trace BLE edema. Gastrointestinal: Normal bowel sounds, Soft and benign. Non-tender. Integumentary: Pressure Ulcer Sacrum stage 4 Urinary: Castro catheter Laboratory data -Reviewed Microbiology data - Blood cultures 01/17: No growth to date Imagings Data: - Reviewed Medications List: Reviewed Assessment and Plan Problem List Infection of Sacral Pressure Ulcer unstageable Prior CVA with residual right sided hemiplegia Diabetes Mellitus type II ESRD Atrial Fibrillation Hypothyroidism Hypertension Infection of Sacral Pressure Ulcer with necrotic tissue - s/p debridement on 01/[address] Carson - Currently on Meropenem and Vancomycin - Sacral Wound cultures 01/20: 2+ gram-negative rods 01/20 underwent Excisional surgical debridement of necrotic ulcers of sacrum (15 x 8 x 2 cm), Left heel (4 x 4 cm), Right heel (6 x 6 cm), Left metatarsal area (3 x 3 cm), Left second toe (2 x 2 cm). Recommendations - Continue Meropenem and Vancomycin for now. - Follow up with culture results. Will adjust antibiotics as appropriate. - s/p debridement sacral ulcer, continue wound care per Dr. Carson. - Monitor WBC and fever trends - Pressure offloading measures. Turn patient q2h, wedge pillow, low air-loss mattress - Strict blood glucose control Scheduled for debridement today of unstageable sacral pressure ulcer. Case discussed with Dr. Beal, N
[2023-01-22] MEDS: AMIODARONE HCL 200 MG TAB PO SCH ×2 (09:50→20:40)
[2023-01-22] MEDS: SENOSIDES 8.6 MG TAB PO SCH ×2 (09:50→20:39)
[2023-01-22] MEDS: CLOPIDOGREL 75 MG TABLET PO SCH (09:50)
[2023-01-22] MEDS: FERROUS SULFATE 325 MG TAB PO SCH ×2 (09:50→16:28)
[2023-01-22] MEDS: APIXABAN 2.5 MG TABLET PO SCH ×2 (09:51→20:39)
[2023-01-22] MEDS: ASCORBIC ACID 500 MG TABLET PO SCH ×2 (09:51→20:39)
--- NOTE | 2023-01-22 13:02 | P.PN ---
Date of Service: 01/22/23 Subjective: Awake, oriented x 3, eating with daughter in law and sons at the bedside. C/O her sacral wound hurting and needing to repositioned. ROS: 10 point ROS as noted above, otherwise negative Physical exam GEN: Alert, oriented, NAD HEENT: Normal conjunctiva, sclera anicteric CV: Regular rate and rhythm, no edema Pulm: Nonlabored respirations 1 LNC ABD: Soft, nontender, nondistended MSK: Bilateral pedal skin breakdown, 1+ pedal pulses Integumentary: Large sacral decubitus ulcerationunstageable with necrotic tissue present Neuro: Normal speech, normal affect Vitals BP121/59, HR 89, RR 20, Temp 96.9, O2 saturation 93% 1 LNC. 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 At baseline, primarily bedbound Resident of [facility], uses [facility] for transfers Family reports patient was ambulatory with assistance in the recent past Physical therapy consulted- states she is a baseline and signed off Diabetes mellitus type 2insulin-dependent ACHS Accu-Chek sliding scale insulin ESRD on HD [facility] Nephrology consult in place [facility] schedule plan to replace electrolytes in dialysis Atrial fibrillation on chronic anticoagulation Currently rate controlled, continue home medications including amiodarone, restart eliquis 01/21-ordered Hypertension Hypothyroidism Home medications continued VTE: eliquis starting back on 01/21 Code: Full Dispo: Greater than 3 days, LTAC Time Spent Managing Pts Care (In Minutes): 35
--- NOTE | 2023-01-22 13:29 | PN ---
Date of Progress Note: 01/22/2023 Subjective: The patient was admitted with decubitus ulcer. The patient awaiting for transfer to [place]. Physical Examination: Vital Signs: Blood pressure of 121/59, pulse of 89, afebrile. Chest: Clear to auscultation. Heart: S1, S2 regular. Abdomen: Soft, nontender. Extremities: No edema. Neurologic: No focality. Neurologic: Pleasantly confused. Laboratory Data: Hemoglobin 13.1. Sodium 139, potassium 4.9, bicarb 28, BUN 41, creatinine 3.6, calcium 8.1, phosphorus 3.7. Current Medications: The patient is on include: 1. Meropenem. 2. Vancomycin. 3. Midodrine. 4. Plavix. 5. Eliquis. 6. Ferrous sulfate. 7. Atorvastatin. 8. Amiodarone. 9. Gabapentin. 10. Levothyroxine. Assessment And Plan: 1. End-stage renal disease, normal volume. We will continue the patient on dialysis, Friday, Friday, Friday. 2. Hyponatremia, will be corrected with dialysis. 3. Hyperkalemia. The patient is going to be dialyzed on low potassium bath. 4. Anemia of chronic kidney disease. Continue to monitor the patient. No need for JOHNNY. 5. Secondary hyperparathyroidism, stable. 6. Decubitus ulcer. Continue wound care. We will follow up with Primary and ID. time spend exam the patient face to face reviewing data lab and radiology , placing order discussing the case with the patient and nursing staff , discussing with the hospitalist >35 min YUDITH Voice ID: [id number] Report ID: [id number] XIAO
[2023-01-22] MEDS ORDERED: FENTANYL CITR 100 MCG/2 ML IV ONE (17:19)
[2023-01-22] MEDS ORDERED: VANCOMYCIN 1 GM in NA CHLORIDE 0.9% 250 ML IVPB SCH ×2 (18:00→18:06)
[2023-01-22] MEDS: VANCOMYCIN 1 GM in NA CHLORIDE 0.9% 250 ML IVPB SCH (18:16)
[2023-01-22] MEDS: GABAPENTIN 100 MG CAP PO SCH (20:39)
[2023-01-22] MEDS: ATORVASTATIN 80 MG TAB PO SCH (20:39)
[2023-01-22] MEDS: Meropenem 500 MG in NA CHLORIDE 0.9% 100 ML IV SCH (20:41)
[2023-01-22] MEDS: INSULIN GLARGINE 100 UNIT/ML SQ SCH (20:42)
[2023-01-23] MEDS: LEVOTHYROXINE SOD 0.025 MG TAB PO SCH (06:00)
[2023-01-23] MEDS: MIDODRINE HCL 5 MG TABLET PO SCH ×3 (06:49→22:51)
[2023-01-23] MEDS: INSULIN REGULAR (HUMAN) 100 UNIT/ML SQ SCH ×4 (07:30→20:32)
[2023-01-23] MEDS: BUDESONIDE 0.25 MG/2 ML NEB IH SCH ×2 (08:45→20:00)
[2023-01-23 08:48] LABS: Albumin 1.9 g/dL (3.4-5.0); Phosphorus 3.8 mg/dL (2.5-4.9); Potassium 4.8 mEq/L (3.5-5.1)
[2023-01-23] MEDS: POLYETHYL GLY 3350 17 GM/DOSE PO SCH (09:00)
[2023-01-23] MEDS: ZINC SULFATE 220 MG CAP PO SCH (09:00)
[2023-01-23] MEDS: NEPRO SHAKE 237 ML CAN PO SCH (09:00)
[2023-01-23] MEDS: COLLAGENASE 30 GM OINTMENT TOP SCH (09:00)
[2023-01-23] MEDS: HOME MED 1 EA UNK (Protein Supplement [Promod] 946 ML Liquid) PO SCH ×2 (09:00→20:31)
[2023-01-23] MEDS: HYDROCODONE/APAP 7.5/325 MG TAB PO PRN ×3 (09:09→19:03)
[2023-01-23] MEDS: FERROUS SULFATE 325 MG TAB PO SCH ×2 (09:09→18:19)
[2023-01-23] MEDS: AMIODARONE HCL 200 MG TAB PO SCH ×2 (09:09→20:30)
[2023-01-23] MEDS: SENOSIDES 8.6 MG TAB PO SCH ×2 (09:10→20:30)
[2023-01-23] MEDS: APIXABAN 2.5 MG TABLET PO SCH ×2 (09:10→20:38)
[2023-01-23] MEDS: ASCORBIC ACID 500 MG TABLET PO SCH ×2 (09:10→20:30)
[2023-01-23] MEDS: CLOPIDOGREL 75 MG TABLET PO SCH (09:10)
--- NOTE | 2023-01-23 09:16 | P.PN ---
Date of Service: 01/23/23 Chief Complaint: Infected sacral decubitus ulceration Subjective: Patient seen and examined at bedside. She reports sacrum/buttock pain In no apparent distress at this time. Remains confused. No acute events overnight. Physical Examination Temp Pulse Resp BP Pulse Ox 97.0 F 50 18 115/50 L 99 01/23/23 08:00 01/23/23 08:00 01/23/23 08:00 01/23/23 04:00 01/23/23 08:00 General: In no apparent distress, Oriented x2, Confused HEENT: Atraumatic, Normocephalic. Neck supple. Respiratory: Normal air movement, Diminished. On 2L nasal cannula. Cardiovascular: Regular rate/rhythm. trace BLE edema. Gastrointestinal: Normal bowel sounds, Soft and benign. Non-tender. Integumentary: Pressure Ulcer Sacrum stage 4 s/p debridement dressing is intact. Left heel, right heel, left metatarsal area and left second toe dressing is clean dry and intact. Urinary: Castro catheter draining brown colored urine Laboratory data -Reviewed Microbiology data - Blood cultures 01/17: No growth to date Imagings Data: - Reviewed Medications List: Reviewed Assessment and Plan Problem List Infection of Sacral Pressure Ulcer unstageable Prior CVA with residual right sided hemiplegia Diabetes Mellitus type II ESRD Atrial Fibrillation Hypothyroidism Hypertension Infection of Sacral Pressure Ulcer with necrotic tissue Osteomyelitis - s/p Excisional surgical debridement of necrotic ulcers of sacrum (15 x 8 x 2 cm), Left heel (4 x 4 cm), Right heel (6 x 6 cm), Left metatarsal area (3 x 3 cm), Left second toe (2 x 2 cm) on 01/[address] Carson with postop diagnosis of necrotic pressure ulcers and osteomyelitis. - Sacral Wound cultures 01/20: Klebsiella oxytoca - Multidrug resistant - Currently on Meropenem and Vancomycin Recommendations Osteomyelitis: Continue antibiotic therapy for 6 weeks duration. - Sacral wound culture growing Klebsiella oxytoca only susceptible to Gentamicin. -> start on Gentamicin and Vabomere IV. Discontinue Vancomycin and Meropenem. - continue wound care per Dr. Carson. - Monitor WBC and fever trends - Pressure offloading measures. Turn patient q2h, wedge pillow, low air-loss mattress. offload pressure on heels. - Strict blood glucose control - Renally dose medications. Pharmacy consulted. Case discussed with Dr. Beal, N
[2023-01-23] MEDS ORDERED: Gentamicin Inj 200 MG in NA CHLORIDE 0.9% 100 ML IVPB ONE (10:30)
--- NOTE | 2023-01-23 12:50 | PN ---
Date of Progress Note: 01/23/2023 Subjective: The patient was admitted to the hospital with the decubitus ulcer. The patient has been on antibiotic. The patient awaiting for a placement transfer to LTAC. Objective: Vital Signs: Blood pressure 115/50, pulse of 50, afebrile. Chest: Clear to auscultation. Heart: S1, S2. Systolic murmur. Abdomen: Soft, nontender. Extremities: Trace edema. Neurologic: Alert. No focality. Laboratory Data: Hemoglobin 11.3, sodium 138, potassium 4.8, bicarb 28, BUN 32, creatinine 3.2, calc ium 8.8, phosphorus 3.8, albumin 1.9, corrected calcium is 10.4. Current Medications: The patient on, it includes midodrine 15 t.i.d. Plavix. Eliquis. Ferrous sul fate. Gabapentin. Amiodarone. Atorvastatin. Assessment And Plan: 1.End-stage renal disease, normal volume, used to be overvolume, recovered. I am going to continue dialysis Friday, Friday, Friday, and we will follow up the patient. 2.Hypertension, controlled, optimal. Continue current treatment. Currently, blood pressure on the lower side. We will continue midodrine. 3.Hypokalemia, corrected, resolved, on dialysis. 4.Hyponatremia, dilutional, corrected on dialysis, resolved. 5.Anemia of chronic kidney disease. Continue holding JOHNNY for the time being. 6.Decubitus ulcer. Continue wound care. Awaiting for LTAC. YUDITH Voice ID: [id number] Report ID: [id number]
[2023-01-23] MEDS: NA CHLORIDE 0.9% IV SCH ×2 (13:05→20:29)
[2023-01-23] MEDS: VABORBACTAM IV SCH ×2 (13:05→20:29)
[2023-01-23] MEDS: MEROPENEM IV SCH ×2 (13:05→20:29)
--- NOTE | 2023-01-23 18:19 | P.PN ---
Date of Service: 01/23/23 Subjective: Awake, uncomfortable in bed, c/o sacral wound hurting. Adjusted antibiotics today. 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 Atrial fibrillation on chronic anticoagulation Hypertension Hypothyroidism Plan: Infected unstageable sacral decubitus ulceration General surgery consultation, White blood cell count improving, WBC Follow blood cultures-NGTD Sacral wound culture with klebsiella oxytoca sensitive to gentamycin ID consult in place-following, recommends gentamycin with HD 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 At baseline, primarily bedbound Resident of [facility], uses [facility] for transfers Family reports patient was ambulatory with assistance in the recent past Physical therapy consulted- states she is a baseline and signed off Diabetes mellitus type 2insulin-dependent ACHS Accu-Chek sliding scale insulin ESRD on HD MWF Nephrology consult in place dialysis tomorrow-[facility]ountine schedule plan to replace electrolytes in dialysis Atrial fibrillation on chronic anticoagulation Currently rate controlled, continue home medications including amiodarone, restart eliquis 01/21-ordered Hypertension Hypothyroidism Home medications continued VTE: eliquis starting back on 01/21 Code: Full Dispo: Greater than 3 days, LTAC Time Spent Managing Pts Care (In Minutes): 35
[2023-01-23] MEDS: GABAPENTIN 100 MG CAP PO SCH (20:30)
[2023-01-23] MEDS: INSULIN GLARGINE 100 UNIT/ML SQ SCH (20:31)
[2023-01-23] MEDS: ATORVASTATIN 80 MG TAB PO SCH (20:38)
[2023-01-24 04:32] VITALS: TEMP 97.1
[2023-01-24] MEDS: LEVOTHYROXINE SOD 0.025 MG TAB PO SCH (05:59)
[2023-01-24] MEDS: MIDODRINE HCL 5 MG TABLET PO SCH ×2 (05:59→13:14)
[2023-01-24] MEDS: INSULIN REGULAR (HUMAN) 100 UNIT/ML SQ SCH ×2 (07:30→11:30)
[2023-01-24] MEDS: BUDESONIDE 0.25 MG/2 ML NEB IH SCH (07:54)
--- NOTE | 2023-01-24 08:29 | P.PN ---
Date of Service: 01/24/23 Chief Complaint: Infected sacral decubitus ulceration Subjective: No acute events overnight. In mild distress reporting pain of sacral area. no respiratory distress noted. Physical Examination Temp Pulse Resp BP Pulse Ox 97.1 F 49 L 18 110/43 L 94 01/24/23 04:00 01/24/23 04:00 01/24/23 04:00 01/24/23 04:00 01/24/23 04:00 General: In no apparent distress, Oriented x2, Confused HEENT: Atraumatic, Normocephalic. Neck supple. Respiratory: Normal air movement, Diminished. On 2L nasal cannula. Cardiovascular: Regular rate/rhythm. trace BLE edema. Gastrointestinal: Normal bowel sounds, Soft and benign. Non-tender. Integumentary: Pressure Ulcer Sacrum stage 4 s/p debridement dressing is intact. Left heel, right heel, left metatarsal area and left second toe dressing is clean dry and intact. Urinary: Castro catheter draining brown colored urine Laboratory data -Reviewed Microbiology data - Blood cultures 01/17: No growth to date Imagings Data: - Reviewed Medications List: Reviewed Assessment and Plan Problem List Infection of Sacral Pressure Ulcer unstageable Prior CVA with residual right sided hemiplegia Diabetes Mellitus type II ESRD Atrial Fibrillation Hypothyroidism Hypertension Infection of Sacral Pressure Ulcer with necrotic tissue Osteomyelitis - s/p Excisional surgical debridement of necrotic ulcers of sacrum (15 x 8 x 2 cm), Left heel (4 x 4 cm), Right heel (6 x 6 cm), Left metatarsal area (3 x 3 cm), Left second toe (2 x 2 cm) on 01/[address] Carson with postop diagnosis of necrotic pressure ulcers and osteomyelitis. - Sacral Wound cultures 01/20: Klebsiella oxytoca, acinetobacter spp. and proteus mirabilis - Currently on Gentamicin IV and Vabomere IV (started 01/23) Recommendations Osteomyelitis: Continue antibiotic therapy for 6 weeks duration. - Recommend continuing with Vabomere and Gentamicin for now. - Sacral wound culture growing Klebsiella oxytoca only susceptible to Gentamicin. Acinetobacter and Proteus from wound culture are resistant to all antibiotics tested. Lab/Micro called by Mary DAWSON to add on suseptibility testing for Vabomere and Polymyxin. Follow up. - continue wound care per Dr. Carson. - Monitor WBC and fever trends - Pressure offloading measures. Turn patient q2h, wedge pillow, low air-loss mattress. offload pressure on heels. - Strict blood glucose control - Renally dose medications. Pharmacy consulted. Case discussed with Becca Eaton
[2023-01-24] MEDS: HOME MED 1 EA UNK (Protein Supplement [Promod] 946 ML Liquid) PO SCH (09:00)
[2023-01-24] MEDS: NEPRO SHAKE 237 ML CAN PO SCH (09:00)
[2023-01-24] MEDS: ZINC SULFATE 220 MG CAP PO SCH (09:00)
[2023-01-24] MEDS: SENOSIDES 8.6 MG TAB PO SCH (09:31)
[2023-01-24] MEDS: POLYETHYL GLY 3350 17 GM/DOSE PO SCH (09:31)
[2023-01-24] MEDS: CLOPIDOGREL 75 MG TABLET PO SCH (09:31)
[2023-01-24] MEDS: FERROUS SULFATE 325 MG TAB PO SCH (09:31)
[2023-01-24] MEDS: APIXABAN 2.5 MG TABLET PO SCH (09:35)
[2023-01-24] MEDS: AMIODARONE HCL 200 MG TAB PO SCH (09:36)
[2023-01-24 09:38] VITALS: O2SAT 100
[2023-01-24] MEDS: COLLAGENASE 30 GM OINTMENT TOP SCH (09:39)
[2023-01-24] MEDS: ASCORBIC ACID 500 MG TABLET PO SCH (09:40)
[2023-01-24] MEDS: VABORBACTAM IV SCH (13:14)
[2023-01-24] MEDS: NA CHLORIDE 0.9% IV SCH (13:14)
[2023-01-24] MEDS: MEROPENEM IV SCH (13:14)
[2023-01-24] MEDS ORDERED: D10W 250 ML BAG IV STA (13:16)
[2023-01-24] MEDS: D10W 250 ML IV SCH ×2 (13:17→13:19)
[2023-01-24 13:43] VITALS: BP 115/60
--- NOTE | 2023-01-24 16:37 | P.PN ---
Subjective Date of Service: 01/24/23 Chief Complaint: Infected sacral decubitus ulceration Subjective: No new changes Physical Examination - Vital Signs Temperature: 97.1 F Blood Pressure: 115/60 Pulse: 60 Respirations: 18 Pulse Ox (%): 94 - Physical Exam General: Other (chronically ill-appearing) HEENT: Atraumatic, Normocephalic Neck: Supple, JVD not distended Respiratory: Other (symmetric chest expansion) Cardiovascular: No rubs, No murmurs Gastrointestinal: Soft and benign, No guarding Musculoskeletal: No clubbing Integumentary: No warmth Neurological: Normal tone Urinary: Other (no bladder distention) External genitalia: Deferred Rectal: Deferred Assessment And Plan - Plan 1. ESRD on HD MWF. Plan for HD today. 2. Hypertension, controlled, optimal. Continue current treatment. Currently, blood pressure on the lower side. We will continue midodrine. 3. Hypokalemia, corrected, resolved, on dialysis. 4. Hyponatremia, dilutional, corrected on dialysis, resolved. 5. Anemia of chronic kidney disease. Continue holding JOHNNY for the time being. 6. Renal osteodystrophy. Monitor serum Ca & Phos 7. Decubitus ulcer / L foot osteomyelitis. Continue wound care & antibiotics. 8. Dispo. Transfer to [facility] today. Plan for HD there today.
[2023-01-24] MEDS ORDERED: Gentamicin Inj 120 MG in NA CHLORIDE 0.9% 100 ML IV SCH (17:00)
--- NOTE | 2023-01-24 18:33 | P.DS ---
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 During admission cultures were taken from the sacral decubitus ulcer during surgical incision and debridement, resulting with Klebsiella oxytoca sensitive to only gentamicin, acinetobacter Maribel/Haem for drug-resistant, and Pioteus mirabilis also multidrug-resistant. Infectious disease has requested both of the multidrug-resistant bacteria to be trialed with Vabomere and polymyxin. Will need to follow-up with those results. UA culture sensitivity resulted with Proteus Mirabilis ESBL sensitive to gentamicin. Decisions were made with nephrology to administer gentamicin on dialysis days, Friday. Vabomere will be administered IV twice daily. Improvement has been made to the sacral decubitus ulceration status post debridement. Continue with wound care. Will continue anticoagulation for A-fib. On 01/24/2023, Rebecca Hazel was seen on morning rounds and deemed medically stable for discharge. Rebecca was discharged with instructions to schedule follow-up appointments with PCP, nephrology, infectious disease. Rebecca was provided prescriptions for gentamicin and vabomere. The patient and family members were given the opportunity to ask questions and reported no further questions. Furthermore, all questions were answered to the best of my ability. A copy of this discharge summary will be sent to the above providers to facilitate continuity of care. Today, I personally spent 55 minutes with Rebecca, of which greater than 50% of the time was spent in patient education, counseling, and coordination of care as described above. Vital Signs/Physical Exam: Temp Pulse Resp BP Pulse Ox 97.1 F 60 18 115/60 94 01/24/23 16:37 01/24/23 16:37 01/24/23 16:37 01/24/23 16:37 01/24/23 16:37 Laboratory Data at Discharge: WBC Cancelled 01/20/23 05:00 Hgb Cancelled 01/20/23 05:00 Hct Cancelled 01/20/23 05:00 Plt Count Cancelled 01/20/23 05:00 PT 15.4 SECONDS (9.5-12.5) H 01/18/23 10:17 INR 1.41 01/18/23 10:17 APTT 41.2 SECONDS (24.3-36.9) H 01/18/23 10:17 Sodium 138 mEq/L (136-145) 01/23/23 08:22 Potassium 4.8 mEq/L (3.5-5.1) 01/23/23 08:22 BUN 32 mg/dL (7-18) H 01/23/23 08:22 Creatinine 3.27 mg/dL (0.55-1.02) H 01/23/23 08:22 Glucose 76 mg/dL (74-106) 01/23/23 08:22 Phosphorus 3.8 mg/dL (2.5-4.9) 01/23/23 08:22 Total Bilirubin 0.3 mg/dL (0.2-1.0) 01/17/23 12:49 AST 19 U/L (15-37) 01/17/23 12:49 ALT 14 U/L (13-56) 01/17/23 12:49 Alkaline Phosphatase 88 U/L (45-117) 01/17/23 12:49 Home Medications: Atorvastatin Calcium [Lipitor] 1 tab PO BEDTIME 05/08/17 Ascorbic Acid 500 mg PO BID 06/22/22 Gabapentin 100 mg PO BEDTIME 06/22/22 Docusate [Colace Cap*] 100 mg PO BID 07/22/22 Apixaban [Eliquis *] 2.5 mg PO BID 09/06/22 Acetaminophen [Acetaminophen ER] 650 mg PO Q4HR PRN 11/03/22 Diphenhydramine [Benadryl*] 25 mg PO Q4HR PRN 11/03/22 Insulin Lispro [Humalog] See Protocol SQ ACHS 11/03/22 Polyethyl Gly 3350 [Glycolax*] 17 gm PO DAILY 11/03/22 Acetaminophen with Codeine [Tylenol with Codeine #4 Tablet] 1 each PO Q8HP PRN 01/18/23 Albuterol Sulfate [Albuterol Sulfate 0.083% Neb Soln] 2.5 mg IH Q6HP PRN 01/18/23 Budesonide [Pulmicort*] 0.5 mg IH Q12H 01/18/23 Clopidogrel Bisulfate [Plavix*] 75 mg PO DAILY 01/18/23 Ferrous Sulfate [Ferrous Sulfate*] 325 mg PO BID 01/18/23 Folic Acid/Vit B Complex and C [Renal Vitamin Tablet] 1 tab PO DAILY 01/18/23 Insulin Glargine,Hum.rec.anlog [Insulin Glargine] 12 unit SQ BEDTIME 01/18/23 Levothyroxine Sodium 25 mcg PO 0600 01/18/23 Mag Hydroxide 8% [Milk Of Magnesia*] 30 ml PO DAILYPRN PRN 01/18/23 Midodrine HCl 1.5 tab PO Q8H 01/18/23 Nepro Shake [Nepro*] 237 ml PO DAILY 01/18/23 Protein Supplement [Promod] 60 ml PO BID 01/18/23 Sennosides 2 tab PO BID 01/18/23 Silver Sulfadiazine [Silvadene 1% Cream] 1 appl TOP Q12H 01/18/23 Vancomycin/0.9 % Sod Chloride [Vancomycin 1 G/200Ml-0.9% NaCl] 1 gm IV M,W,F 01/18/23 Zinc Sulfate [Zinc Sulfate*] 220 mg PO DAILY 01/18/23 bisacodyL [Dulcolax*] 5 mg PO DAILYPRN PRN 01/18/23 Amiodarone HCl [Cordarone*] 100 mg PO BID tab 01/24/23 Atorvastatin Calcium [Lipitor] 80 mg PO BEDTIME tab 01/24/23 Collagenase [Santyl Ointment*] 1 appl TOP DAILY tube 01/24/23 Gentamicin Inj [Garamycin Inj*] 120 mg IV M,W,F #12 vial 01/24/23 Meropenem/Vaborbactam [Vabomere 2 Gram Vial] 1 gm IV Q12H #14 vial 01/24/23 New Medications: Gentamicin Inj [Garamycin Inj*] 120 mg IV M,W,F #12 vial Meropenem/Vaborbactam [Vabomere 2 Gram Vial] 1 gm IV Q12H #14 vial Physician Discharge Instructions: Physical exam GEN: Alert, oriented, NAD HEENT: Normal conjunctiva, sclera anicteric CV: Regular rate and rhythm, no edema Pulm: Nonlabored respirations 2 LNC ABD: Soft, nontender, nondistended MSK: Bilateral pedal skin breakdown, 1+ pedal pulses Integumentary: Large sacral decubitus ulcerationunstageable with necrotic tissue present Neuro: Normal speech, normal affect 1. Follow up with PCP for continued medication management in 1 week 2. Follow up with Infectious disease for any changes to antibiotics -currently running more tests on Sacral wound culture 3. continue renal diet 4. fall precautions, decubitus precautions 5. Continue with dialysis MWF, gentamycin and vabomere will be given during dialysis -gentamycin trough on 01/24 5.4 pharmacy note for use in dialysis "DX: MDR Klebsiella UTI (only Gentamicin S). Pre H.D. Gentamicin trough = 5.4 mg/dl. Hold dose today and repeat Gentamicin trough prior to H.D. on 01/27/23. Redose Gentamicin 80 mg IV x 1 if trough is less then 2.0 mg/dl." 6. Return to ED if symptoms worsen Diet: Renal Activity: Fall precautions Followup: NONE,NONE [Primary Care Provider] - Time spent managing pt's care (in minutes): 55
[2023-01-27] MEDS ORDERED: Gentamicin Inj 120 MG in NA CHLORIDE 0.9% 100 ML IV SCH (17:00)
== END 2023-01-24 16:45 | DRG 570 ==
LOC: ER 12:24 → 2ND 14:58
PROVIDERS: ADMIT Hospitalist; ATTEND Internal Medicine
PROC: 0JB70ZZ Excision of Back Subcutaneous Tissue and Fascia, Open Approach (ICD-10-PCS; 2023-01-20)
PROC: 0JBR0ZZ Excision of Left Foot Subcutaneous Tissue and Fascia, Open Approach (ICD-10-PCS; 2023-01-20)
PROC: 0JBQ0ZZ Excision of Right Foot Subcutaneous Tissue and Fascia, Open Approach (ICD-10-PCS; principal; 2023-01-20 11:45)
PROC: 5A1D70Z Performance of Urinary Filtration, Intermittent, Less than 6 Hours Per Day (ICD-10-PCS; 2023-01-21)
DX: L89.150 Pressure ulcer of sacral region, unstageable (principal); N18.6 End stage renal disease; E11.52 Type 2 diabetes mellitus with diabetic peripheral angiopathy with gangrene; I69.351 Hemiplegia and hemiparesis following cerebral infarction affecting right dominant side; G93.40 Encephalopathy, unspecified; E87.1 Hypo-osmolality and hyponatremia; I50.32 Chronic diastolic (congestive) heart failure; I13.2 Hypertensive heart and chronic kidney disease with heart failure and with stage 5 chronic kidney disease, or end stage renal disease; N25.81 Secondary hyperparathyroidism of renal origin; M86.8X8 Other osteomyelitis, other site; Z16.24 Resistance to multiple antibiotics; E11.69 Type 2 diabetes mellitus with other specified complication; E11.22 Type 2 diabetes mellitus with diabetic chronic kidney disease; D63.1 Anemia in chronic kidney disease; E03.9 Hypothyroidism, unspecified; I48.91 Unspecified atrial fibrillation; E87.6 Hypokalemia; N25.0 Renal osteodystrophy; I45.10 Unspecified right bundle-branch block; F03.90 Unspecified dementia, unspecified severity, without behavioral disturbance, psychotic disturbance, mood disturbance, and anxiety; B96.1 Klebsiella pneumoniae [K. pneumoniae] as the cause of diseases classified elsewhere; B96.4 Proteus (mirabilis) (morganii) as the cause of diseases classified elsewhere; Z99.2 Dependence on renal dialysis; Z79.4 Long term (current) use of insulin; Z95.0 Presence of cardiac pacemaker; Z11.52 Encounter for screening for COVID-19; Z79.01 Long term (current) use of anticoagulants; Z91.158 Patient's noncompliance with renal dialysis for other reason; Z79.899 Other long term (current) drug therapy; Z79.890 Hormone replacement therapy; Z90.710 Acquired absence of both cervix and uterus; Z89.412 Acquired absence of left great toe
CPT/HCPCS: 36415; 71045; 80048; 80053; 80069; 80170; 80202; 82947; 83605; 83970; 85025; 85610; 85730; 86706; 87040; 87070; 87075; 87077; 87086; 87088; 87186; 87205; 87340; 87804; 87811; 88304; 90935; 93005; 94640; 96365; 97110; 97161; 99285; J1580; J1644; J1650; J1815; J2001; J2185; J2186; J2270; J2405; J2704; J3010; J3590; J7040; J7050; J7626; J7634

== ENCOUNTER 2023-03-10 16:42 | Observation (INO) | payer OTHER ==
--- NOTE | 2023-03-10 17:35 | EDPHYS ---
Physician Documentation [facility] Name: Rebecca Hazel Age: 82 yrs Sex: Female : 1940 Arrival Date: 03/10/2023 Time: 16:42 Bed 8 Private MD: ED Physician Georges Padgett HPI: 03/10 17:45 This 82 yrs old Female presents to ER via EMS with complaints of dialysis catheter ms3 malfunction. 17:45 82-year-old female with past medical history of diabetes, dialysis Friday3 Friday, hypertension presents to the emergency department via [facility] for right chest dialysis catheter occlusion. Patient denies pain, shortness of breath, nausea, vomiting. Historical: - Allergies: 16:55 No Known Allergies; ap3 - PMHx: 16:55 Diabetes - IDDM; Dialysis M-W-F; Dialysis M-W-F; End stage renal disease; Hypertension; ap3 Hypothyroidism; stroke with right sided weakness; TIA; - PSHx: 16:55 pacemaker; ap3 - Immunization history:: Adult Immunizations unknown. - Social history:: Smoking status: unknown. ROS: 17:45 Constitutional: Negative for fever, and chills. Neck: Negative for injury, pain, and ms3 swelling, Cardiovascular: Negative for chest pain, and palpitations. Respiratory: Negative for shortness of breath, cough, wheezing, and pleuritic chest pain, Abdomen/GI: Negative for abdominal pain, nausea, vomiting, diarrhea, and constipation, MS/Extremity: Negative for injury and deformity, Skin: Negative for injury, rash, and discoloration, Exam: 17:45 Constitutional: This is a well developed, well nourished patient who is awake, alert, ms3 and in no acute distress. Head/Face: Normocephalic, atraumatic. Chest/axilla: Normal chest wall appearance and motion. Nontender with no deformity. 17:45 Cardiovascular: Regular rate and rhythm with a normal S1 and S2. No gallops, murmurs, or rubs. Normal PMI, no JVD. No pulse deficits. Respiratory: Lungs have equal breath sounds bilaterally, clear to auscultation and percussion. No rales, rhonchi or wheezes noted. No increased work of breathing, no retractions or nasal flaring. Abdomen/GI: Soft, non-tender, with normal bowel sounds. No distension or tympany. No guarding or rebound. No evidence of tenderness throughout. Skin: Warm, dry with normal turgor. Normal color with no rashes, no lesions, and no evidence of cellulitis. 17:45 Chest/axilla: Dialysis catheter right chest. 18:42 ECG was reviewed by the Attending Physician. ms3 Vital Signs: 16:53 BP 137 / 77; Pulse 57; Resp 18; Temp 97.7; Pulse Ox 98% on R/A; ll1 20:30 BP 125 / 51; Pulse 55; Resp 18 S; Pulse Ox 97% on R/A; jw7 21:32 BP 138 / 61; Pulse 58; Resp 18 S; Pulse Ox 97% on R/A; jw7 22:30 BP 109 / 54; Pulse 54; Resp 17 S; Pulse Ox 95% on R/A; jw7 23:30 BP 112 / 50; Pulse 55; Resp 16 S; Pulse Ox 96% on R/A; jw7 03/11 00:30 BP 120 / 50; Pulse 52; Resp 16 S; Pulse Ox 95% ; jw7 05:36 BP 133 / 52; Pulse 57; Resp 17 S; Pulse Ox 98% on R/A; jw7 MDM: 03/10 17:08 Patient medically screened. ms3 17:45 Differential Diagnosis Called dialysis catheter, end-stage renal disease, electrolyte ms3 abnormality. Data reviewed: vital signs, nurses notes, lab test result(s), and as a result, I will admit patient. Historians other than the Patient: EMS: [facility]. Care significantly affected by the following chronic conditions: Diabetes, Hypertension, . Counseling: I had a detailed discussion with the patient and/or guardian regarding the historical points, exam findings, and any diagnostic results supporting the discharge/admit diagnosis, lab results, the need for further work-up and treatment in the hospital. 03/10 17:11 Order name: CBC with Diff; Complete Time: 18:41 ms3 03/10 17:11 Order name: BMP; Complete Time: 18:26 ms3 03/11 04:34 Order name: Basic Metabolic Panel EDMS EC:42 Rate is 53 beats/min. Rhythm is regular. QRS [place] is Normal. ID interval is normal. QRS ms3 interval is prolonged. Clinical impression: NSR w/ Non-specific ST/T Changes and RBBB. Interpreted by me. Reviewed by me. Administered Medications: 19:04 Drug: Lokelma Powder 10 grams PO once Route: PO; ll1 21:35 Follow up: Response: No adverse reaction jw7 22:49 Drug: morphine IVP or IV 4 mg IVP once over 4 mins {Note: Right Shoulder.} Route: IVP; jw7 Infused Over: 4 mins; Site: Other; 03/11 01:03 Follow up: Response: No adverse reaction; Marked relief of symptoms jw7 03/10 22:49 Drug: Ondansetron IVP 4 mg IVP once; over 2 minutes Route: IVP; Site: Other; 7 03/11 01:03 Follow up: Response: No adverse reaction jw7 Disposition Summary: 03/10/23 17:34 Hospitalization Ordered Notes: Hospitalization Status: Observation ms3 Provider: Anish Berry ms3 Condition: Stable ms3 Problem: new ms3 Symptoms: are unchanged ms3 Bed/Room Type: Standard ms3 Location: Telemetry/MedSurg (observation)(03/11/23 00:36) 5 Room Assignment: 214(03/11/23 00:36[place] [facility] [place] - D[place] catheter occlusion ms3 - End stage renal disease ms3 Forms: - Medication Reconciliation Form ms3 - SBAR form ms3 - Leadership Thank You Letter ms3 Signatures: Dispatcher [employer] EDMS Jelly Priest RN RN ap3 Mathew Krishnan RN RN [email or web address] Derik Yost DO DO ms3 Summer Gonzales RN RN vc1 Eliz Buckner RN RN jw7 Georges Padgett MD MD sp4 Toyin Smith 5 Corrections: (The following items were deleted from the chart) 00:17 03/10 17:34 Telemetry/MedSurg (observation) ms3 vc1 03/11 00:17 03/10 17:34 ms3 vc1 03/11 00:36 00:17 [facility] ER HOLD 1 5 00:36 00:17 ERHOLD- vc1 5
--- NOTE | 2023-03-10 17:35 | ER ---
Nurse's Notes [facility] Name: Rebecca Hazel Age: 82 yrs Sex: Female : 1940 Arrival Date: 03/10/2023 Time: 16:42 Bed 8 Private MD: Diagnosis: Dialysis catheter occlusion;End stage renal disease Presentation: 03/10 16:53 Chief complaint: Patient states: sent by [facility] for a malfunctioning dialysis ap3 access. patient was unable to receive dialysis. patients access is on her right upper chest, and typically gets dialysis MWF, but did not receive dialysis last Friday. Coronavirus screen: At this time, the client does not indicate any symptoms associated with coronavirus-19. Ebola Screen: No symptoms or risks identified at this time. Initial Sepsis Screen: Does the patient meet any 2 criteria? No. Patient's initial sepsis screen is negative. Does the patient have a suspected source of infection? No. Patient's initial sepsis screen is negative. Risk Assessment: Do you want to hurt yourself or someone else? Patient reports no desire to harm self or others. Onset of symptoms is unknown. 16:53 Method Of Arrival: EMS: [facility] ap3 16:53 Acuity: DENNIS 3 ap3 Triage Assessment: 16:55 General: Appears in no apparent distress. Behavior is calm, cooperative, appropriate ap3 for age. Neuro: Level of Consciousness is awake, alert, obeys commands, Oriented to person, place, time, situation. Cardiovascular: Patient's skin is warm and dry. Dialysis shunt: in the anterior aspect of right upper chest. Respiratory: Airway is patent Respiratory effort is even, unlabored, Respiratory pattern is regular, symmetrical. Historical: - Allergies: 16:55 No Known Allergies; ap3 - PMHx: 16:55 Diabetes - IDDM; Dialysis M-W-F; Dialysis M-W-F; End stage renal disease; Hypertension; ap3 Hypothyroidism; stroke with right sided weakness; TIA; - PSHx: 16:55 pacemaker; ap3 - Immunization history:: Adult Immunizations unknown. - Social history:: Smoking status: unknown. Screenin:55 Abuse screen: Denies threats or abuse. Nutritional screening: No deficits noted. ap3 Tuberculosis screening: No symptoms or risk factors identified. 19:00 [facility] ED Fall Risk Assessment (Adult) History of falling in the last 3 months, jw7 including since admission Yes- physiologic fall (2 pts) Confusion or Disorientation No (0 pts) Intoxicated or Sedated No (0 pts) Impaired Gait Yes (1 pt) Mobility Assist Device Used Yes (1 pt) Altered Elimination No (0 pt) Score/Fall Risk Level 3 or more points = High Risk Oriented to surroundings, Maintained a safe environment, Educated pt \\T\\ family on fall prevention, incl call for assistance when getting out of bed, Assessed \\T\\ reinforced patient's understanding of fall precautions. Assessment: 17:54 Reassessment: No changes from previously documented assessment. Patient and/or family ll1 updated on plan of care and expected duration. Pain level reassessed. Patient is alert, oriented x 3, equal unlabored respirations, skin warm/dry/pink. 19:00 Reassessment: Patient appears in no apparent distress at this time. Patient and/or jw7 family updated on plan of care and expected duration. Pain level reassessed. Patient is alert, oriented x 3, equal unlabored respirations, skin warm/dry/pink. 20:30 Reassessment: Patient appears in no apparent distress at this time. Patient and/or jw7 family updated on plan of care and expected duration. Pain level reassessed. Patient is alert, oriented x 3, equal unlabored respirations, skin warm/dry/pink. 21:30 Reassessment: Patient appears in no apparent distress at this time. Patient and/or jw7 family updated on plan of care and expected duration. Pain level reassessed. Patient is alert, oriented x 3, equal unlabored respirations, skin warm/dry/pink. 22:10 General: Pt c/o pain to back and buttocks, states " I have a chronic wound on my butt jw7 that is hurting really bad". Provider notified . 22:10 Pain: Complains of pain in back and buttocks Pain does not radiate. Pain currently is 8 jw7 out of 10 on a pain scale. Quality of pain is described as throbbing, piercing. 22:41 Reassessment: Patient appears in no apparent distress at this time. Patient and/or jw7 family updated on plan of care and expected duration. Pain level reassessed. Patient is alert, oriented x 3, equal unlabored respirations, skin warm/dry/pink. 23:30 Reassessment: Patient appears in no apparent distress at this time. Patient and/or jw7 family updated on plan of care and expected duration. Pain level reassessed. Patient is alert, oriented x 3, equal unlabored respirations, skin warm/dry/pink. 03/11 00:40 Reassessment: Patient appears in no apparent distress at this time. Patient and/or jw7 family updated on plan of care and expected duration. Pain level reassessed. Patient is alert, oriented x 3, equal unlabored respirations, skin warm/dry/pink. 01:30 Reassessment: Patient appears in no apparent distress at this time. No changes from jw7 previously documented assessment. Patient and/or family updated on plan of care and expected duration. Pain level reassessed. Patient is alert, oriented x 3, equal unlabored respirations, skin warm/dry/pink. 02:30 Reassessment: Patient appears in no apparent distress at this time. No changes from jw7 previously documented assessment. Patient and/or family updated on plan of care and expected duration. Pain level reassessed. Patient is alert, oriented x 3, equal unlabored respirations, skin warm/dry/pink. 03:30 Reassessment: Patient appears in no apparent distress at this time. No changes from jw7 previously documented assessment. Patient and/or family updated on plan of care and expected duration. Pain level reassessed. Patient is alert, oriented x 3, equal unlabored respirations, skin warm/dry/pink. 04:30 Reassessment: Patient appears in no apparent distress at this time. No changes from jw7 previously documented assessment. Patient and/or family updated on plan of care and expected duration. Pain level reassessed. Patient is alert, oriented x 3, equal unlabored respirations, skin warm/dry/pink. 05:30 Reassessment: Patient appears in no apparent distress at this time. No changes from jw7 previously documented assessment. Patient and/or family updated on plan of care and expected duration. Pain level reassessed. Patient is alert, oriented x 3, equal unlabored respirations, skin warm/dry/pink. 05:36 General: Report given to THAIS Win. jw7 Vital Signs: 03/10 16:53 BP 137 / 77; Pulse 57; Resp 18; Temp 97.7; Pulse Ox 98% on R/A; ll1 20:30 BP 125 / 51; Pulse 55; Resp 18 S; Pulse Ox 97% on R/A; jw7 21:32 BP 138 / 61; Pulse 58; Resp 18 S; Pulse Ox 97% on R/A; jw7 22:30 BP 109 / 54; Pulse 54; Resp 17 S; Pulse Ox 95% on R/A; jw7 23:30 BP 112 / 50; Pulse 55; Resp 16 S; Pulse Ox 96% on R/A; jw7 03/11 00:30 BP 120 / 50; Pulse 52; Resp 16 S; Pulse Ox 95% ; jw7 05:36 BP 133 / 52; Pulse 57; Resp 17 S; Pulse Ox 98% on R/A; jw7 ED Course: 03/10 16:47 Patient arrived in ED. bd 16:48 Derik Yost DO is Attending Physician. ms3 16:55 Triage completed. ap3 16:55 Arm band placed on right wrist. ap3 17:32 Anish Berry MD is Hospitalizing Provider. ms3 17:37 Mathew Krishnan, THAIS is Primary Nurse. ll1 17:54 Inserted saline lock: 22 gauge in left upper arm, using aseptic technique. Blood ll1 collected. 17:56 CBC with Diff Sent. ll1 17:56 BMP Sent. ll1 18:39 EKG done, by ED staff, reviewed by Derik Yost DO. ap3 19:00 Patient has correct armband on for positive identification. Bed in low position. Call [facility] light in reach. Side rails up X2. 19:00 No provider procedures requiring assistance completed. Patient admitted, IV remains in jw7 place. 22:46 Attending Physician role handed off by Derik Yost DO sp4 22:46 Georges Padgett MD is Attending Physician. sp4 03/11 00:48 Provided Education on: need for admit. jw7 02:29 Primary Nurse role handed off by Mathew Krishnan RN wm Administered Medications: 03/10 19:04 Drug: Lokelma Powder 10 grams PO once Route: PO; ll1 21:35 Follow up: Response: No adverse reaction jw7 22:49 Drug: morphine IVP or IV 4 mg IVP once over 4 mins {Note: Right Shoulder.} Route: IVP; jw7 Infused Over: 4 mins; Site: Other; 03/11 01:03 Follow up: Response: No adverse reaction; Marked relief of symptoms jw7 03/10 22:49 Drug: Ondansetron IVP 4 mg IVP once; over 2 minutes Route: IVP; Site: Other; jw7 03/11 01:03 Follow up: Response: No adverse reaction jw7 Medication: 03/10 21:34 VIS not applicable for this client. jw7 Outcome: 17:34 Decision to Hospitalize by Provider. ms3 03/11 00:48 Admitted to Med/surg accompanied by tech, via stretcher, room 214, jw7 Condition: stable Instructed on the need for admit, Demonstrated understanding of instructions, 06:04 Patient left the ED. jw7 Signatures: Rebecca Simmons Amanda RN RN ap3 Mathew Krishnan RN RN ll1 Derik Yost DO DO ms3 Cassandra Bosch Jodi, RN RN jw7 Georges Padgett MD MD sp4 Corrections: (The following items were deleted from the chart) 03/10 19:05 16:53 BP 137 / 77; Pulse 57bpm; Pulse Ox 98% RA; ap3 ll1 03/11 05:38 03:00 Pain: Complains of pain in back and buttocks Pain does not radiate. Pain jw7 currently is 8 out of 10 on a pain scale. Quality of pain is described as throbbing, piercing, jw7
[2023-03-10 18:20] LABS: Absolute Lymphocytes (CBC) 1.7 K/uL (0.7-4.9); Hematocrit 27.8 % (36.0-45.0); Lymphocytes % 11.9 % (15.3-44.8); MCV 97.9 fL (80-100); MPV 7.5 fL (7.6-11.3); Platelets 257 thou/uL (152-406); RBC Red Blood Cell Count 2.84 M/uL (3.86-4.86)
[2023-03-10 18:25] LABS: Potassium 5.6 mEq/L (3.5-5.1)
[2023-03-10] MEDS ORDERED: SODIUM ZIRCONIUM CYCLOSILICATE 10 GM/PKT PO ONE (19:00)
[2023-03-10] MEDS ORDERED: MORPHINE 4 MG/ML SYR ONE (21:43)
[2023-03-10] MEDS ORDERED: ONDANSETRON 4 MG/2 ML VIAL ONE (21:43)
[2023-03-11] MEDS ORDERED: ONDANSETRON 4 MG/2 ML VIAL IV PRN (04:30)
--- NOTE | 2023-03-11 04:38 | P.HP ---
Certification for Inpatient Patient admitted to: Observation With expected LOS: <2 Midnights Practitioner: I am a practitioner with admitting privileges, knowledge of patient current condition, hospital course, and medical plan of care. Services: Services provided to patient in accordance with Admission requirements found in Title 42 Section 412.3 of the Code of Federal Regulations Patient History Date of Service: 03/11/23 Reason for admission: Ms. dialysis session, hyperkalemia, ESRD. History of Present Illness: 82-year-old female patient with medical history significant for hypertension, hyperlipidemia, diabetes type 2, ESRD on dialysis on MWF schedule was missed a couple of dialysis session due to dialysis catheter malfunction. She came to the ED and was found to have hyperkalemia with a potassium of 5.6 and she was admitted for management of malfunctioning catheter. She denies any overt episode of chest pain, fever, chills, rigor, nausea, vomiting, shortness of breath. Allergies No Known Allergies Allergy (Verified 09/25/22 01:17) Home Medications: Atorvastatin Calcium [Lipitor] 1 tab PO BEDTIME 05/08/17 Ascorbic Acid 500 mg PO BID 06/22/22 Gabapentin 100 mg PO BEDTIME 06/22/22 Docusate [Colace Cap*] 100 mg PO BID 07/22/22 Apixaban [Eliquis *] 2.5 mg PO BID 09/06/22 Acetaminophen [Acetaminophen ER] 650 mg PO Q4HR PRN 11/03/22 Diphenhydramine [Benadryl*] 25 mg PO Q4HR PRN 11/03/22 Insulin Lispro [Humalog] See Protocol SQ ACHS 11/03/22 Polyethyl Gly 3350 [Glycolax*] 17 gm PO DAILY 11/03/22 Acetaminophen with Codeine [Tylenol with Codeine #4 Tablet] 1 each PO Q8HP PRN 01/18/23 Albuterol Sulfate [Albuterol Sulfate 0.083% Neb Soln] 2.5 mg IH Q6HP PRN 01/18/23 Budesonide [Pulmicort*] 0.5 mg IH Q12H 01/18/23 Clopidogrel Bisulfate [Plavix*] 75 mg PO DAILY 01/18/23 Ferrous Sulfate [Ferrous Sulfate*] 325 mg PO BID 01/18/23 Folic Acid/Vit B Complex and C [Renal Vitamin Tablet] 1 tab PO DAILY 01/18/23 Insulin Glargine,Hum.rec.anlog [Insulin Glargine] 12 unit SQ BEDTIME 01/18/23 Levothyroxine Sodium 25 mcg PO 0600 01/18/23 Mag Hydroxide 8% [Milk Of Magnesia*] 30 ml PO DAILYPRN PRN 01/18/23 Midodrine HCl 1.5 tab PO Q8H 01/18/23 Nepro Shake [Nepro*] 237 ml PO DAILY 01/18/23 Protein Supplement [Promod] 60 ml PO BID 01/18/23 Sennosides 2 tab PO BID 01/18/23 Silver Sulfadiazine [Silvadene 1% Cream] 1 appl TOP Q12H 01/18/23 Vancomycin/0.9 % Sod Chloride [Vancomycin 1 G/200Ml-0.9% NaCl] 1 gm IV M,W,F 01/18/23 Zinc Sulfate [Zinc Sulfate*] 220 mg PO DAILY 01/18/23 bisacodyL [Dulcolax*] 5 mg PO DAILYPRN PRN 01/18/23 Amiodarone HCl [Cordarone*] 100 mg PO BID tab 01/24/23 Atorvastatin Calcium [Lipitor] 80 mg PO BEDTIME tab 01/24/23 Collagenase [Santyl Ointment*] 1 appl TOP DAILY tube 01/24/23 Gentamicin Inj [Garamycin Inj*] 120 mg IV M,W,F #12 vial 01/24/23 Meropenem/Vaborbactam [Vabomere 2 Gram Vial] 1 gm IV Q12H #14 vial 01/24/23 - Past Medical/Surgical History Diabetic: Yes -: CVA with right-sided weakness -: Insulin dependent type 2 Diabetes -: Hypertension -: Atrial Fibrillation on chronic anticoagulation -: NEUROPATHY -: HLD -: HYPOTHYROIDISM -: ESRD on HD -: chronic osteomyelitis with non-healing ulcer right great toe s/p fall(2017) -: afib vs supraventricular tachycardia -: thyroidectomy -: cataract sx -: hysterectomy -: pacemaker -: Left great toe amputation Psychosocial/ Personal History: [facility] resident - Family History Mother -: Hypertension Father -: Diabetes - Social History Alcohol use: No CD- Drugs: No Caffeine use: No Review of Systems General: Unremarkable Eyes: Unremarkable ENT: Unremarkable Respiratory: Unremarkable Cardiovascular: Unremarkable Gastrointestinal: Unremarkable Genitourinary: Unremarkable Musculoskeletal: Unremarkable Integumentary: Unremarkable Neurological: Unremarkable Lymphatics: Unremarkable Physical Examination - Physical Exam General: Alert, Oriented x3 HEENT: Atraumatic Neck: Supple Respiratory: Normal air movement Cardiovascular: Regular rate/rhythm, Normal S1 S2 Gastrointestinal: Soft and benign Musculoskeletal: No swelling Neurological: Normal speech, Normal strength at 5/5 x4 extr - Studies Laboratory Data (last 24 hrs) 03/10/23 03/10/23 17:50 17:50 WBC 14.50 H Hgb 9.0 L Hct 27.8 L Plt Count 257 Sodium 136 Potassium 5.6 H BUN 38 H Creatinine 4.32 H Glucose 120 H Assessment and Plan - Plan ESRD: Patient had missed dialysis session due to the dialysis catheter malfunction. Surgeon consulted for replacement. Continue renal diet. Continue potassium lowering medical therapy. Nephrology to assist with dialysis needs management. Hyperkalemia: Potassium is elevated 5 (due to missed dialysis session). Low potassium bath to be used for dialysis as management. Diabetes type 2: Continue sliding scale insulin for glucose control and carb restricted diet. Hypertension: We will monitor vital signs per unit protocol and continue outpatient antihypertensive medication. Anemia of renal disease: Nephrology to assist with Epogen dosing for anemia management Hyperlipidemia: We will continue statin therapy. Prophylaxis: Patient is on home dose of Eliquis for anticoagulation. CODE STATUS: Full code Disposition: Will have dialysis needs dressed and also have a dialysis catheter replaced and she will be discharged once all treatment modalities are finalized. - Advance Directives Does patient have a Living Will: No Does patient have a Durable POA for Healthcare: No
[2023-03-11] MEDS: INSULIN REGULAR (HUMAN) 100 UNIT/ML SQ SCH (07:30)
[2023-03-11 08:01] VITALS: BMI 32.0
[2023-03-11] MEDS: HEPARIN 5000 UNIT/ML 1 ML VIAL SQ SCH (08:41)
[2023-03-11 12:18] LABS: Potassium 5.8 mEq/L (3.5-5.1)
--- NOTE | 2023-03-11 12:31 | P.PN ---
Subjective Date of Service: 03/11/23 Chief Complaint: Ms. dialysis session, hyperkalemia, ESRD. Pt is resting comfortably in bed. She missed her recent dialysis session. Consulted Nephrology for dialysis. No other complaints. Review of Systems Unremarkable General: Unremarkable Eyes: Unremarkable ENT: Unremarkable Respiratory: Unremarkable Cardiovascular: Unremarkable Gastrointestinal: Unremarkable Genitourinary: Unremarkable Musculoskeletal: Unremarkable Integumentary: Unremarkable Neurological: Unremarkable Lymphatics: Unremarkable Physical Examination - Vital Signs Temperature: 98.0 F Blood Pressure: 137/50 Pulse: 63 Respirations: 18 Pulse Ox (%): 98 - Physical Exam General: Alert, In no apparent distress, Oriented x3 HEENT: Atraumatic, Normocephalic, PERRLA Neck: Supple, 2+ carotid pulse no bruit Respiratory: Clear to auscultation bilaterally, Normal air movement Cardiovascular: No edema, Normal pulses, Regular rate/rhythm, Normal S1 S2 Capillary refill: <2 Seconds Gastrointestinal: Normal bowel sounds, Soft and benign, Non-distended Musculoskeletal: No clubbing, No swelling Integumentary: No rashes, No breakdown Neurological: Normal gait, Normal speech, Normal strength at 5/5 x4 extr, Normal tone, Sensation intact Lymphatics: No axilla or inguinal lymphadenopathy - Studies Laboratory Data (last 24 hrs) 03/10/23 03/10/23 17:50 17:50 WBC 14.50 H Hgb 9.0 L Hct 27.8 L Plt Count 257 Sodium 136 Potassium 5.6 H BUN 38 H Creatinine 4.32 H Glucose 120 H Assessment And Plan - Plan ESRD: On dialysis MWF. Pt missed last dialysis session due to dialysis catheter malfunction. Will consult Dr. Carson to replace the dialysis catheter. Continue low K and renal diet. Consulted Paper Pattern Folder. Hyperkalemia: K is 5.6. Will improve with dialysis. Due to missed dialysis session. Diabetes type 2: Continue accuchek, SSI and ADA diet. Hypertension: Continue home meds. Anemia of renal disease: Hgb is 9.0. Monitor H/H. Hyperlipidemia: statin therapy. DVT ppx: Eliquis Code: full Dispo: Pending hospital course.
[2023-03-11] MEDS: Oxycodone HCl/Acetaminophen 5/325 MG TAB PO PRN (16:20)
[2023-03-11] MEDS: NEPRO SHAKE 237 ML CAN PO SCH (20:24)
[2023-03-11] MEDS: SODIUM ZIRCONIUM CYCLOSILICATE 10 GM/PKT PO ONE (20:37)
[2023-03-12 07:00] LABS: Absolute Lymphocytes (CBC) 1.6 K/uL (0.7-4.9); Hematocrit 27.9 % (36.0-45.0); Lymphocytes % 11.2 % (15.3-44.8); MCV 97.5 fL (80-100); MPV 7.5 fL (7.6-11.3); Platelets 236 thou/uL (152-406); RBC Red Blood Cell Count 2.86 M/uL (3.86-4.86)
[2023-03-12 07:15] LABS: Potassium 5.7 mEq/L (3.5-5.1)
--- NOTE | 2023-03-12 10:24 | P.PN ---
Subjective Date of Service: 03/12/23 Chief Complaint: Ms. dialysis session, hyperkalemia, ESRD. Pt is resting comfortably in bed. She missed her recent dialysis session. Consulted Gen surgery for dialysis catheter replacement. Consulted Nephrology. No other complaints. Review of Systems Unremarkable General: Unremarkable Eyes: Unremarkable ENT: Unremarkable Respiratory: Unremarkable Cardiovascular: Unremarkable Gastrointestinal: Unremarkable Genitourinary: Unremarkable Musculoskeletal: Unremarkable Integumentary: Unremarkable Neurological: Unremarkable Lymphatics: Unremarkable Physical Examination - Vital Signs Temperature: 97.2 F Blood Pressure: 127/53 Pulse: 58 Respirations: 16 Pulse Ox (%): 97 - Physical Exam General: Alert, In no apparent distress, Oriented x3 HEENT: Atraumatic, Normocephalic, PERRLA Neck: Supple, 2+ carotid pulse no bruit Respiratory: Clear to auscultation bilaterally, Normal air movement Cardiovascular: No edema, Normal pulses, Regular rate/rhythm, Normal S1 S2 Capillary refill: <2 Seconds Gastrointestinal: Normal bowel sounds, Soft and benign, Non-distended Musculoskeletal: No clubbing, No swelling Integumentary: No rashes, No breakdown Neurological: Normal speech, Normal strength at 5/5 x4 extr, Normal tone, Sensation intact Lymphatics: No axilla or inguinal lymphadenopathy Assessment And Plan - Plan ESRD: On dialysis MWF. Pt missed last dialysis session due to dialysis catheter malfunction. Dr. Carson will replace the dialysis catheter today. Continue low K and renal diet. Consulted Tallow Maker. Hyperkalemia: K is 5.7 <- 5.6. Will give lokelma. Will improve with dialysis. Due to missed dialysis session. Diabetes type 2: Continue accuchek, SSI and ADA diet. Hypertension: Continue home meds. Anemia of renal disease: Hgb is 9.0. Monitor H/H. Hyperlipidemia: statin therapy. DVT ppx: Eliquis Code: full Dispo: Pending hospital course.
[2023-03-12] MEDS: SODIUM ZIRCONIUM CYCLOSILICATE 10 GM/PKT PO ONE (10:45)
[2023-03-12] MEDS ORDERED: EPOETIN 4,000 UNIT/ML VIAL IV SCH (11:00)
--- NOTE | 2023-03-12 11:54 | CON ---
Date of Consultation: 03/12/2023 Reason For Consultation: Elevated BUN, creatinine, end-stage renal disease, dialysis management. History Of Present Illness: This is an 82-year-old female, well known to me from dialysis with significant past medical history of diabetes, complicated with neuropathy, nephropathy, hypertension, CAD, complicated with diastolic congestive heart failure, CVA, dementia, end-stage renal disease, on hemodialysis, Friday, Friday, Friday, hyperlipidemia. The patient went to dialysis. Her catheter did not work. For that reason, the patient was sent to the hospital for exchange. The patient denied any nausea, any vomiting. The patient had hyperkalemia. Past Medical History: Include diabetes, hypertension, CAD, CVA, dementia, end- stage renal disease, hyperlipidemia. Allergies: NO KNOWN DRUG ALLERGY. Social History: Lives in alf. Denied smoking. Denied drinking. Denied drugs abuse. Review of Systems: Head and Neck: No red eye, no ear pain. GI: No nausea, no vomiting. : No polyuria, no dysuria, no hematuria. 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 Respiratory: Has shortness of breath. Cardiovascular: No chest pain. Endocrine: No polydipsia. Skin: No rash. Neuro: The patient bedbound. Musculoskeletal: Generalized body ache. Past Surgical History: Includes second toe amputation, PermCath placement and removal, I and D. Current Medications: The patient on in the hospital include Lokelma, Zofran. Physical Examination: Vital Signs: When I saw the patient, blood pressure of 127/53, pulse of 58, afebrile. Chest: Clear to auscultation. Heart: S1, S2 regular. Abdomen: Soft, nontender. Extremities: Dressing on both feet. Trace edema. Neurologic: Alert, bedbound, no focality. Labs: Hemoglobin 9, WBC 14.6. Sodium 137, potassium 5.7, bicarb 26, BUN 45, creatinine 12.7, calcium 8.4. Current Medications: The patient on, as above. Assessment And Plan: 1. End-stage renal disease, malfunction TDC. Discussed with surgeon for exchange. 2. Hypomagnesemia we will supplement. 3. Anemia of chronic kidney disease. We will resume JOHNNY. 4. Hyperkalemia. The patient started on Lokelma. 5. Diabetes. As by primary. Time spent examining the patient [id number] reviewing that the lab and the radiology placing orders or discussing the case with the patient discussing the case with the steamer operator including hospitalist and nursing staff more than 35 minutes YUDITH Voice ID: [id number] Report ID: [id number] MTDD
[2023-03-12] MEDS: NA CHLORIDE 0.9% 500 ML ONE ×2 (12:45→14:13)
[2023-03-12] MEDS: NS 0.9% VIAL 10 ML ONE (12:57)
[2023-03-12] MEDS: HEPARIN 5000 UNIT/ML 1 ML VIAL ONE (12:58)
[2023-03-12] MEDS: NA CHLORIDE 0.9% 100 ML ONE (12:59)
[2023-03-12] MEDS ORDERED: LIDOCAINE 2% MPF 5 ML VIAL ONE (13:32)
[2023-03-12] MEDS ORDERED: propofoL 200 MG/20 ML VIAL IV ONE ×2 (13:32→14:42)
[2023-03-12] MEDS: CEFAZOLIN SODIUM 1 GM/VIAL ONE (13:48)
[2023-03-12] MEDS ORDERED: EPHEDRINE SULF 50 MG/ML VIAL ONE (14:06)
--- NOTE | 2023-03-12 14:10 | RAD REPORT ---
EXAM DESCRIPTION: [place] Single View03/12/2023 1:46 pm CLINICAL HISTORY: Preop COMPARISON: January 2023 FINDINGS: Upper lobe vessels prominent indicative of pulmonary vascular congestion The lungs appear clear of acute infiltrate. The heart is moderately enlarged. Pacemaker leads and central venous line in place
[2023-03-12] MEDS: BUPIVACAINE 0.5% PF 10 ML VIAL ONE (14:34)
--- NOTE | 2023-03-12 15:00 | CON ---
Date of Consultation: 03/12/2023 Diagnosis: End-stage renal disease. History Of Present Illness: This is the case of an 82-year-old patient who comes to us with history of hemodialysis, but they have not been able to use hemodialysis in the last visit. The renal doctor tried to declot the catheter, but he says was not successful, so he requests removal of previous hem odialysis catheter and placement of new hemodialysis catheter. I am not sure exactly when this was p laced. I do not have any recent chart in this hospital about the placement. They think it was done in [place] and it had been working well until recently. The patient does not give any information. She always asked me to talk to her primary doctor if I have any questions. Review of Systems: No shortness of breath. No chest pain. No fever. 10 points otherwise unremarkable. Past Medical History: Renal failure, hypertension, diabetes, CVA, atrial fibrillation. Past Surgical History: Includes hysterectomy, pacemaker, left great toe amputation, hemodialysis cat heters. Medications: Reviewed including Eliquis. Last time was done 09/06/2022. Review of Systems: As above. Physical Examination: General: The patient is awake, alert. HEENT: Pupils are reactive, anicteric. Neck: Supple. Chest: Clear. There is a HemoSplit on the right side. No evidence of infection. Abdomen: Soft and depressible. Extremities: Good capillary refill. Laboratory Data: Blood work shows a WBC count of 14, hemoglobin of 9, platelets of 236, potassium 5. 7, BUN is 45, glucose 104. Assessment And Plan: An 82-year-old patient in need of hemodialysis catheter. The benefits, alterna tives, and risks of catheter placement fully explained, which include, but not limited to, infection, bleeding, damage to adjacent structures, anesthesia complication, pneumothorax, hemothorax, DVTs, PE , DE, even . They also understood this may not relieve symptoms, she may need more than one luis manuel gical intervention. She signed a consent. ARLEN/LAYLA Voice ID: [id number] Report ID: [id number]
--- NOTE | 2023-03-12 15:07 | P.BOP ---
Preoperative diagnosis: ESRD Postoperative diagnosis: SAME Primary procedure: 1. Placement of hemosplit tunneled hemodialysis cath Secondary procedure: 2. Interpretation of fluoroscopy Other procedure(s): 3. Right neck ultrasound, 4. Removal of non-functional HD catheter Estimated blood loss: <10cc Specimen: old HD cath Findings: as above Anesthesia: MAC Complications: None Drain(s): Other (VICK) Transferred to: Recovery Room Condition: Good
[2023-03-12] MEDS: FENTANYL CITR 100 MCG/2 ML ONE (15:19)
[2023-03-12 15:41] VITALS: O2SAT 96
--- NOTE | 2023-03-12 15:54 | RAD REPORT ---
EXAM DESCRIPTION: ROSHANS[place]un Single View03/12/2023 3:36 pm CLINICAL HISTORY: Device placement/central venous catheter placement IMPRESSION: Central venous catheter with its tip in the superior vena cava No pneumothorax
--- NOTE | 2023-03-12 15:55 | RAD REPORT ---
EXAM DESCRIPTION: RAD - Fluoroscopy <1 Hour - 03/12/2023 3:37 pm CLINICAL HISTORY: Device placement central venous catheter placement FINDINGS: A central venous catheter was placed into the superior vena cava. 5 fluoroscopic spot mila ges are submitted. Fluoroscopy time 24 seconds The examination was performed by Dr. Carson
[2023-03-12 21:16] LABS: Hepatitis B surface AG Interp. Nonreactive (Nonreactive)
[2023-03-12 21:26] LABS: Hepatitis B Surface Ab - Quant < 3.10 mIU/mL (<8.0)
[2023-03-13] MEDS: ACETAMINOPHEN 325 MG TABLET PO PRN (04:03)
[2023-03-13 07:34] LABS: Absolute Lymphocytes (CBC) 1.4 K/uL (0.7-4.9); Hematocrit 27.1 % (36.0-45.0); Lymphocytes % 7.5 % (15.3-44.8); MCV 97.5 fL (80-100); MPV 7.5 fL (7.6-11.3); Platelets 216 thou/uL (152-406); RBC Red Blood Cell Count 2.78 M/uL (3.86-4.86)
[2023-03-13 09:23] LABS: Anisocytosis 1+; Blood Morphology Comment NOTED (NOT SEEN); Platelet Estimate ADEQ; White Blood Cell Scan OK (OK)
[2023-03-13] MEDS: CIPROFLOXACIN HCL 500 MG TAB PO ONE (09:54)
[2023-03-13 11:53] VITALS: BP 103/51; TEMP 97.6
--- NOTE | 2023-03-13 12:27 | PN ---
Date of Progress Note: 03/13/2023 Subjective: Patient was admitted with malfunctioned hemodialysis catheter. Patient had exchange yes terday, tolerated very well. We used the catheter yesterday without any problem. Patient is feeling better. Physical Examination: Vital Signs: Blood pressure 134/59, pulse of 65, afebrile. Chest: Clear to auscultation. Heart: S1, S2. Regular. Abdomen: Obese, could not appreciate any organomegaly. Has decubitus ulcer. Extremities: Plus edema, dressing on both legs. Neuro: Alert. Bed bound. Laboratory Data: Hemoglobin 8.9. Sodium 137, potassium 5.7, bicarb 26, BUN 45, creatinine 5, calciu m 8.4. Current Medications: The patient is on include ciprofloxacin, Epogen, Nepro, insulin. Assessment And Plan: 1.Acute end-stage renal disease, on dialysis, status post tunneled dialysis catheter placement, tole rated dialysis. 2.Hypertension, controlled, optimal. 3.Hyperkalemia, status post dialysis, recovered, resolved. 4.Anemia. Continue JOHNNY. 5.Malfunction of tunneled hemodialysis catheter, status post exchange. Patient is cleared from the Renal standpoint for discharge planning. HARRIETT/LAYLA Voice ID: [id number] Report ID: [id number]
--- NOTE | 2023-03-13 12:34 | P.DS ---
Admission Date: 03/11/23 Discharge Date: 03/13/23 Reason for Admission: Missed. dialysis session, hyperkalemia, ESRD. - Problems (1) End stage renal disease Status: Chronic (2) Hypertension Status: Chronic Qualifiers: Hypertension type: primary hypertension Qualified Code(s): I10 - Essential (primary) hypertension Brief History of Present Illness: History of Present Illness: 82-year-old female patient with medical history significant for hypertension, hyperlipidemia, diabetes type 2, ESRD on dialysis on MWF schedule was missed a couple of dialysis session due to dialysis catheter malfunction. She came to the ED and was found to have hyperkalemia with a potassium of 5.6 and she was admitted for management of malfunctioning catheter. She denies any overt episode of chest pain, fever, chills, rigor, nausea, vomiting, shortness of breath. Pending a bed, currently on bed waitlist. Accepting physician is Jani Lopez. Primary nurse notified. Hospital Course: Ms. Hazel is a pleasant 82-year-old male patient with a past medical history significant for hypertension, hyperlipidemia, type 2 diabetes, end-stage renal failure on dialysis 3 times a week who was admitted to the [facility] on 03/11/2023 for missing a couple of dialysis sessions due to dialysis catheter malfunction.. Patient was admitted to the hospital, you tunneled hemodialysis catheter was placed on 03/12/2024 by Rito Orosco. Old nonfunctional HD catheter was removed. Patient had a hemodialysis session after getting the new HD catheter. Patient tolerated the procedure. On 03/13/2023, patient was seen on morning rounds and deemed medically stable for discharge. Patient was discharged with instructions to schedule follow-up appointments with PCP in 3 to 5 days and superintendent transportation in 2 weeks. The patient and family members were given the opportunity to ask questions and reported no further questions. 1. Please call and schedule a follow-up appointment with your PCP ( [text]) in 3-5 days 2. Please call and schedule a follow-up appointment with superintendent transportation in 2 weeks - Please follow-up with your PCP for medication refills/adjustments <Hossein Godoy - Last Filed: 03/13/23 12:31> Admission Date: 03/11/23 Discharge Date: 02/02/24 Hospital Course: Pt seen and examined. I agree with the note by the [facility]. Ok to discharge pt. Replaced dialysis catheter is functioning well. <Anish Berry - Last Filed: 03/14/23 18:05> Disposition: TRANSFER TO CARE HOME Discharge Condition: GOOD Vital Signs/Physical Exam: Temp Pulse Resp BP Pulse Ox 97.6 F 60 18 103/51 L 96 03/13/23 11:46 03/13/23 11:46 03/13/23 11:46 03/13/23 11:46 03/13/23 11:46 General: Alert, Oriented x3 HEENT: Atraumatic, Normocephalic Neck: Supple, 2+ carotid pulse no bruit Respiratory: Clear to auscultation bilaterally, Normal air movement Cardiovascular: Normal pulses, Regular rate/rhythm, Other (New HD catheter on the right anterior chest) Capillary refill: <2 Seconds Gastrointestinal: Normal bowel sounds, Soft and benign Musculoskeletal: No clubbing, No swelling, No contractures Integumentary: No rashes, No breakdown, No warmth Neurological: Normal speech, Normal tone, Normal affect Laboratory Data at Discharge: WBC 18.50 thou/uL (4.3-10.9) H 03/13/23 07:00 Hgb 8.9 g/dL (12.0-15.0) L 03/13/23 07:00 Hct 27.1 % (36.0-45.0) L 03/13/23 07:00 Plt Count 216 thou/uL (152-406) 03/13/23 07:00 Sodium 137 mEq/L (136-145) 03/12/23 06:34 Potassium 5.7 mEq/L (3.5-5.1) H 03/12/23 06:34 BUN 45 mg/dL (7-18) H 03/12/23 06:34 Creatinine 5.07 mg/dL (0.55-1.02) H 03/12/23 06:34 Glucose 104 mg/dL (74-106) 03/12/23 06:34 <Hossein Godoy - Last Filed: 03/13/23 12:31> Vital Signs/Physical Exam: Temp Pulse Resp BP Pulse Ox 97.6 F 60 18 103/51 L 96 03/13/23 11:46 03/13/23 11:46 03/13/23 11:46 03/13/23 11:46 03/13/23 11:46 Laboratory Data at Discharge: WBC 18.50 thou/uL (4.3-10.9) H 03/13/23 07:00 Hgb 8.9 g/dL (12.0-15.0) L 03/13/23 07:00 Hct 27.1 % (36.0-45.0) L 03/13/23 07:00 Plt Count 216 thou/uL (152-406) 03/13/23 07:00 Sodium Cancelled 03/13/23 05:00 Potassium Cancelled 03/13/23 05:00 BUN Cancelled 03/13/23 05:00 Creatinine Cancelled 03/13/23 05:00 Glucose Cancelled 03/13/23 05:00 <Anish Berry - Last Filed: 03/14/23 18:05> Diet: Renal Activity: Ad annie Time spent managing pt's care (in minutes): 55 (Minutes) <Hossein Godoy - Last Filed: 03/13/23 12:31> <Anish Berry - Last Filed: 03/14/23 18:05> Home Medications: Docusate [Colace Cap*] 100 mg PO BID 07/22/22 Apixaban [Eliquis *] 2.5 mg PO BID 09/06/22 Insulin Lispro [Humalog] See Protocol SQ ACHS 11/03/22 Polyethyl Gly 3350 [Glycolax*] 17 gm PO BID 11/03/22 Albuterol Sulfate [Albuterol Sulfate 0.083% Neb Soln] 2.5 mg IH Q6HP PRN 01/18/23 Ferrous Sulfate [Ferrous Sulfate*] 325 mg PO TIDWM 01/18/23 Folic Acid/Vit B Complex and C [Renal Vitamin Tablet] 1 tab PO DAILY 01/18/23 Mag Hydroxide 8% [Milk Of Magnesia*] 30 ml PO DAILYPRN PRN 01/18/23 Midodrine HCl 1.5 tab PO Q8H 01/18/23 Nepro Shake [Nepro*] 237 ml PO BID 01/18/23 Sennosides 2 tab PO BID 01/18/23 Silver Sulfadiazine [Silvadene 1% Cream] 1 appl TOP Q12H 01/18/23 Zinc Sulfate [Zinc Sulfate*] 220 mg PO DAILY 01/18/23 bisacodyL [Dulcolax*] 5 mg PO DAILYPRN PRN 01/18/23 Acetaminophen [Tylenol] 650 mg PO Q4HP PRN 03/11/23 Amiodarone HCl [Cordarone*] 100 mg PO BID 03/11/23 Atorvastatin Calcium [Lipitor] 80 mg PO BEDTIME 03/11/23 Hydrocodone 7.5/APAP 325 [Ruffin 7.5/325 mg*] 1 tab PO Q6H PRN 03/11/23 Levothyroxine Sodium [Synthroid] 137 mcg PO 0600 03/11/23 Melatonin [Melatonin*] 6 mg PO BEDTIME 03/11/23 Midodrine HCl 10 mg PO Q8HP PRN 03/11/23 Potassium Chloride [Klor-Con M10] 10 meq PO DAILY 03/11/23 Sodium Chlor/Hypochlorous Acid [Vashe Solution] 1 appl TOP SEECOM 03/11/23 Sodium Hypochlorite [Dakin's] 1 appl TOP DAILY 03/11/23 Physician Discharge Instructions: Ms. Hazel is a pleasant 82-year-old male patient with a past medical history significant for hypertension, hyperlipidemia, type 2 diabetes, end-stage renal failure on dialysis 3 times a week who was admitted to the [facility] on 03/11/2023 for missing a couple of dialysis sessions due to dialysis catheter malfunction.. Patient was admitted to the hospital, you tunneled hemodialysis catheter was placed on 03/12/2024 by Rito Orosco. Old nonfunctional HD catheter was removed. Patient had a hemodialysis session after getting the new HD catheter. Patient tolerated the procedure. On 03/13/2023, patient was seen on morning rounds and deemed medically stable for discharge. Patient was discharged with instructions to schedule follow-up appointments with PCP in 3 to 5 days and superintendent transportation in 2 weeks. The patient and family members were given the opportunity to ask questions and reported no further questions. 1. Please call and schedule a follow-up appointment with your PCP in 3-5 days 2. Please call and schedule a follow-up appointment with superintendent transportation in 2 weeks - Please follow-up with your PCP for medication refills/adjustments Followup: Promise Heller MD [ACTIVE - CAN ADMIT] - 1-2 Weeks NONE,NONE [Primary Care Provider] -
--- NOTE | 2023-03-13 13:37 | EKG ---
Test Date: 2023-03-10 Test Time: 18:37:23 Rotor Blade Installer: ALP MEASUREMENT RESULTS: Intervals: Rate: 53 NM: 206 QRSD: 160 QT: 510 QTc: 478 Lester: P: 66 NM: 206 QRS: 169 T: 37 INTERPRETIVE STATEMENTS: Sinus bradycardia Right bundle branch block Abnormal ECG Compared to ECG 01/17/2023 13:17:21 No significant changes Electronically Signed On 03-13-23 13:25:09 RAND TACKER by Lui Tomlinson
--- NOTE | 2023-03-14 21:23 | OP ---
Surgeon: Rito Carson MD Preoperative Diagnosis: End-stage renal disease. Postoperative Diagnosis: End-stage renal disease. Procedures: 1.Placement of a new split hemodialysis catheter, tunneled. 2.Interpretation of fluoroscopy. 3.Right neck ultrasound. 4.Removal of a nonfunctional old hemodialysis catheter. Estimated Blood Loss: Less than 10 mL. Specimen: All hemodialysis catheter intact, cut in half by me, but checked. Anesthesia: MAC plus local. Complications: None. Indications: This is the case of a female, who comes to us with nonfunctional hemodialysis catheter. It was placed long time ago. They noticed recently it was not working. They are trying to flush i t out and use thrombolysis and still not working, so I received a call from the renal service and nissa pimentel doctor to see if we can put a new catheter on her. The benefits, alternatives, and risks of place ment of a new hemodialysis catheter and also removal of old nonfunctional catheter were fully explain ed to the patient which include, but not limited to infection, bleeding, damage to adjacent structure s, anesthesia complications, recurrence, NE, and even . She also understands it might not relie ve the symptoms. She might need more than one surgical intervention. She understands the risk of pn eumothorax, hemothorax, DVTs, PE, NE, and even . They understood, signed a consent. Description Of Procedure: The patient was brought to the operating room, placed in supine position. Anesthesia was done without complication. The right neck and chest were prepped and draped in a shania rile fashion. A time-out was called. I proceeded to make an incision in the right upper neck, find the previous catheter present in that area and shows no erythema, so we proceeded to holding the prox imal and distal control. I cut the catheter with the patient in Trendelenburg position. After that, I placed a guidewire, passed through, that distal catheter was removed and then sent for the identif ication. Then, after that, we removed the proximal after releasing the tunnel away from the skin. A t that moment, I checked fluoroscopy again and made sure that it was intact. I already had also an u ltrasound of the neck and subclavian previously to make sure that the vein is still viable and it see ms to be compressible and viable. With the help of fluoroscopy, we identified the guidewi re to be in proper position. We tunneled a new catheter through a new tunnel on the right upper ches t, meeting into the neck area. We put serial dilators through the guidewire under fluoroscopy trenton vallecillo, put an introducer sheath at the end. Fed the catheter through that introducer sheath and peeled it off and then the area was flushed; shows excellent backflow and inflow. The lines were flushed wi th heparinized solution. 3-0 chromic was used to close the subcutaneous tissue and then the catheter was secured in place with 2-0 nylon. Sponge count and instrument counts correct. Area was covered with sterile dressings. The area of the previous catheter removal was left to close by secondary int ention since we are afraid if we close that area it may get infected. The patient tolerated the proc edure well. Patient was sent to recovery in stable condition. ARLEN/LAYLA Voice ID: [id number] Report ID: [id number]
== END 2023-03-13 13:41 ==
LOC: ER 16:42 → 2ND 03-11 04:30 → UNDOADMOB 03-11 04:40
PROVIDERS: ADMIT Internal Medicine Nephrology; ATTEND Hospitalist
PROC: 02HV33Z Insertion of Infusion Device into Superior Vena Cava, Percutaneous Approach (ICD-10-PCS; principal; 2023-03-12 12:30)
DX: E11.22 Type 2 diabetes mellitus with diabetic chronic kidney disease (principal); I12.0 Hypertensive chronic kidney disease with stage 5 chronic kidney disease or end stage renal disease; N18.6 End stage renal disease; T82.41XA Breakdown (mechanical) of vascular dialysis catheter, initial encounter; E87.5 Hyperkalemia; E78.5 Hyperlipidemia, unspecified; E83.42 Hypomagnesemia; D63.1 Anemia in chronic kidney disease; I69.351 Hemiplegia and hemiparesis following cerebral infarction affecting right dominant side; E03.9 Hypothyroidism, unspecified; Z95.0 Presence of cardiac pacemaker; Z99.2 Dependence on renal dialysis; Z91.158 Patient's noncompliance with renal dialysis for other reason
CPT/HCPCS: 36590; 36558; 93005; 87070; 85025 ×3; 80048 ×3; 36415 ×3; 87205; 82947 ×10; 88300; 87077 ×3; 87186 ×3; 87340; 86706; 71045 ×2; 90935; J1644 ×6; A4216; J2704 ×2; J2001; J3010; J2405; G0378 ×6; J7040 ×2; J0690; C1752; 76000